=== PATIENT | male | born 1960 | race Caucasian/White ===

== ENCOUNTER 2016-03-20 14:18 | Outpatient (RCR) | payer BC ==
--- OUTSIDE RECORDS SUMMARY | 2015-12-29 09:46 | XMS REPORT | Continuity of Care Document ---
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 Medications Medication Dose Route Sig Days/Qty Instructions Order Date Discontinued Date Status Hydrochlorothiazide 1 Each PO DAILY 08/24/11 07/19/13 Discontinued Sitagliptin Phos/Metformin Hcl 1 Each PO DAILY 08/24/11 Active Olmesartan 1 Tab PO DAILY 08/24/11 07/19/13 Discontinued Metformin HCl (Glucophage) 1 Each PO DAILY 08/24/11 07/19/13 Discontinued Pioglitazone HCl 1 Tab PO DAILY 08/24/11 07/21/13 Discontinued Ranitidine HCl 300 Mg PO TWICE A DAY 08/24/11 07/19/13 Discontinued Multivitamins 1 Each PO DAILY 08/24/11 07/21/13 Discontinued [place]-3 Fatty Acids 2,000 Mg PO DAILY 08/24/11 Active Magnesium Amino Acid Chelate 300 Mg PO EVERY OTHER DAY 08/24/1103/03 Discontinued Cholecalciferol (Vitamin D3) 2,000 Unit PO DAILY 10/02/11 07/21/13 Discontinued Ascorbic Acid 500 Mg PO DAILY 10/02/11 07/21/13 Discontinued Cyanocobalamin 1,000 Mcg PO DAILY 10/02/11 07/21/13 Discontinued Folic Acid 0.4 Mg PO EVERY OTHER DAY 10/02/11 07/21/13 Discontinued Acetaminophen/Hydrocodone Bitart 1 - 2 Ea PO Q4HR PRN 30 Qty 10/09/11 07/19/13 Discontinued Ranitidine HCl 300 Mg PO DAILY 0 Days 07/19/13 Active Magnesium Amino Acid Chelate 250 Mg PO DAILY 0 Days 07/19/13 07/21/13 Discontinued Olmesartan Med/Amlodipine/Hctz 1 Each PO DAILY 0 Qty 07/19/13 Active Citalopram Hydrobromide 1 Each PO DAILY 0 Qty 07/19/13 Active Fexofenadine HCl 180 Mg PO DAILY 0 Qty 07/19/13 07/21/13 Discontinued Levofloxacin 750 Mg PO DAILY 14 Days 07/19/13 07/21/13 Discontinued Doxycycline Hyclate 100 Mg PO TWICE A DAY 10 Days 07/21/13 Active Clindamycin Hcl 600 Mg PO EVERY 8HRS 10 Days 07/21/13 Active Social History Social History Problem Response Recorded Date/Time Recreational Drug Use No 07/19/2013 12:00am Sexually Transmitted Disease No 07/19/2013 12:00am Hospital Discharge Instructions No hospital discharge instructions. Plan of Care No plan of care. Functional Status No functional status results. Allergies, Adverse Reactions, Alerts Allergen Type Severity Reaction Status Last Updated Penicillins ([id number]) Allergy Unknown Active 07/19/13 Sulfa (Sulfonamide Antibiotics) ([id number]) Allergy Unknown Active 03/03 Milk Containing Products Allergy Unknown gas/rash Active 07/19/13 peanut ([id number]) Allergy Unknown air closes off Active 07/19/13 Codeine Allergy Unknown Active 07/19/13 milk ([id number]) Allergy Unknown gas/rash Active 07/19/13 [place] ([id number]) Allergy Unknown airway closes off Active 07/19/13 ENVIRONMENTAL Allergy Unknown Active 07/19/13 Immunizations Name Given Type Date of Pneumonia Vaccine 07/19/13 Historical Vital Signs No known vital signs results. Results Test Source Date Result Interp. Ref. Range Comments Activated Partial Thromboplast Time September 27, 2007 4:39pm 33 SEC N 24- 35 Has specimen been collected/obtained? Y Alanine Aminotransferase (ALT/SGPT) July 20, 2013 5:52am 40 U/L N 30-65 Albumin July 20, 2013 5:52am 3.3 G/DL L 3.4-5.0 Alkaline Phosphatase July 20, 2013 5:52am 100 U/L N 50-136 Aspartate Amino Transf (AST/SGOT) July 20, 2013 5:52am 25 U/L N 15-37 BUN/Creatinine Ratio July 20, 2013 5:52am 13 - Band Neutrophils July 20, 2013 5:56am 2 % - Basophils # (Auto) July 20, 2013 5:56am 0.0 10^3/uL N 0.0-0.1 Basophils % (Manual) July 20, 2013 5:56am 2 % - Basophils (%) (Auto) July 20, 2013 5:56am 1 % N 0-10 Blood Urea Nitrogen July 20, 2013 5:52am 12 MG/DL N 7-18 C-Reactive Protein July 18, 2013 9:42pm 2.6 MG/DL H 0.2-0.9 Calcium Level July 20, 2013 5:52am 9.2 MG/DL N 8.5-10.1 Carbon Dioxide Level July 20, 2013 5:52am 30 MMOL/L N 21-32 Chloride Level July 20, 2013 5:52am 100 MMOL/L L 101-110 Creatinine July 20, 2013 5:52am 0.9 MG/DL N 0.6-1.3 Eosinophils # (Auto) July 20, 2013 5:56am 0.3 10^3/uL N 0.0-0.3 Eosinophils % (Manual) July 20, 2013 5:56am 3 % - Eosinophils (%) (Auto) July 20, 2013 5:56am 5 % N 0-10 Glucose Level July 20, 2013 5:52am 148 MG/DL H 74-106 Hematocrit July 20, 2013 5:56am 41 % N 40-54 Hemoglobin July 20, 2013 5:56am 13.8 G/DL N 13.3-17.7 Lymphocytes # (Auto) July 20, 2013 5:56am 1.8 X 10^3 N 1.0-4.0 Lymphocytes % (Manual) July 20, 2013 5:56am 32 % - Lymphocytes (%) (Auto) July 20, 2013 5:56am 28 % N 12-44 Magnesium Level September 27, 2007 4:39pm 2.0 MG/DL N 1.8-2.4 Has specimen been collected/obtained? Y Mean Corpuscular Hemoglobin July 20, 2013 5:56am 29 PG N 25-34 Mean Corpuscular Hemoglobin Concent July 20, 2013 5:56am 34 G/DL N 32- 36 Mean Corpuscular Volume July 20, 2013 5:56am 87 FL N 80-99 Mean Platelet Volume July 20, 2013 5:56am 9.3 FL N 7.4-10.4 Monocytes # (Auto) July 20, 2013 5:56am 0.5 X 10^3 N 0.0-1.0 Monocytes % (Manual) July 20, 2013 5:56am 8 % - Monocytes (%) (Auto) July 20, 2013 5:56am 7 % N 0-12 Myoglobin September 27, 2007 4:39pm 23 UG/L N 10-92 Has specimen been collected/obtained? Y Neutrophils # (Auto) July 20, 2013 5:56am 3.8 X 10^3 N 1.8-7.8 Neutrophils % (Manual) July 20, 2013 5:56am 53 % - Neutrophils (%) (Auto) July 20, 2013 5:56am 59 % N 42-75 Platelet Count July 20, 2013 5:56am 256 10^3/uL N 130-400 Potassium Level July 20, 2013 5:52am 3.9 MMOL/L N 3.6-5.0 Prothromb Time International Ratio September 27, 2007 4:39pm 0.9 N 0.8-1.4 INTERPRETIVE DATASUGGESTED THERAPEUTIC RANGE FOR INR'S: VENOUS THROMBOSIS, PULMONARY EMBOLISM, OR PREVENTION OF SYSTEMIC EMBOLISM (EG. IN ATRIAL FIBRILLATION): 2.0 - 3.0 MECHANICAL PROSTHETIC HEART VALVES: 2.5 - 3.5* *NOTE: INR'S UP TO 4.5 MAY BE NECESSARY IN SELECTED GROUPS OF HIGH RISK PATIENTS. [employer] CONSENSUS CONFERENCE ON ANTITHROMBOTIC THERAPY (2000). Prothrombin Time September 27, 2007 4:39pm 12.5 SEC N 12.2-14.7 Has specimen been collected/obtained? Y Red Blood Count July 20, 2013 5:56am 4.70 10^6/uL N 4.35-5.85 Red Cell Distribution Width July 20, 2013 5:56am 13.4 % N 10.0-14.5 Sodium Level July 20, 2013 5:52am 134 MMOL/L L 135-145 Total Bilirubin July 20, 2013 5:52am 0.6 MG/DL N 0.0-1.0 Total Protein July 20, 2013 5:52am 8.0 G/DL N 6.4-8.2 Troponin I September 27, 2007 4:39pm < 0.10 MG/ML 0.00-0.10 Has specimen been collected/obtained? Y Urine Bacteria July 18, 2013 11:04pm NEGATIVE /HPF - Has specimen been collected/obtained? YSpecimen Description CLEAN CATCH Urine Bilirubin July 18, 2013 11:04pm NEGATIVE - Has specimen been collected/obtained? YSpecimen Description CLEAN CATCH Urine Casts July 18, 2013 11:04pm NONE /LPF - Has specimen been collected/obtained? YSpecimen Description CLEAN CATCH Urine Clarity July 18, 2013 11:04pm CLEAR - Has specimen been collected/obtained? YSpecimen Description CLEAN CATCH Urine Color July 18, 2013 11:04pm YELLOW - Has specimen been collected /obtained? YSpecimen Description CLEAN CATCH Urine Crystals July 18, 2013 11:04pm NONE /LPF - Has specimen been collected/obtained? YSpecimen Description CLEAN CATCH Urine Culture Indicated July 18, 2013 11:04pm NO - Has specimen been collected/obtained? YSpecimen Description CLEAN CATCH Urine Glucose (UA) July 18, 2013 11:04pm NEGATIVE - Has specimen been collected/obtained? YSpecimen Description CLEAN CATCH Urine Ketones July 18, 2013 11:04pm NEGATIVE - Has specimen been collected/obtained? YSpecimen Description CLEAN CATCH Urine Leukocyte Esterase July 18, 2013 11:04pm NEGATIVE - Has specimen been collected/obtained? YSpecimen Description CLEAN CATCH Urine Mucus July 18, 2013 11:04pm NEGATIVE /LPF - Has specimen been collected/obtained? YSpecimen Description CLEAN CATCH Urine Nitrite July 18, 2013 11:04pm NEGATIVE - Has specimen been collected/obtained? YSpecimen Description CLEAN CATCH Urine Protein July 18, 2013 11:04pm NEGATIVE - Has specimen been collected/obtained? YSpecimen Description CLEAN CATCH Urine RBC July 18, 2013 11:04pm RARE /HPF - Has specimen been collected/obtained? YSpecimen Description CLEAN CATCH Urine Specific [place] July 18, 2013 11:04pm 1.015 L - Has specimen been collected/obtained? YSpecimen Description CLEAN CATCH Urine Squamous Epithelial Cells July 18, 2013 11:04pm RARE /HPF - Has specimen been collected/obtained? YSpecimen Description CLEAN CATCH Urine Urobilinogen July 18, 2013 11:04pm NORMAL MG/DL - Has specimen been collected/obtained? YSpecimen Description CLEAN CATCH Urine WBC July 18, 2013 11:04pm NONE /HPF - Has specimen been collected/obtained? YSpecimen Description CLEAN CATCH Urine pH July 18, 2013 11:04pm 5 - Has specimen been collected/ obtained? YSpecimen Description CLEAN CATCH Vancomycin Level Trough July 20, 2013 5:52am 15 UG/ML N 15-20 VANCOMYCIN TROUGH THERAPEUTIC LEVELS: 15-20 UG/ML ELEVATED LEVELS : 20-25 UG/ML CRITICAL LEVEL : >25 UG/ML White Blood Count July 20, 2013 5:56am 6.5 10^3/uL N 4.3-11.0 Pathology Consult Specimen September 27, 2007 4:39pm See report - Has specimen been collected/obtained? Y Glucometer July 21, 2013 10:53am 183 MG/DL H 70-110 Lab Scanned Report April 11, 2010 8:02am LAB Reports [id number] - Estimat Glomerular Filtration Rate July 20, 2013 5:52am > 60 - GFR INTERPRETIVE DATA UNITS FOR ESTIMATED GFR (eGFR): mL/min/1.73 M2 REFERENCE RANGE FOR ESTIMATED GFR (eGFR) eGFR NORMAL eGFR >60 MODERATELY DECREASED eGFR 30-59 SEVERLY DECREASED eGFR 15-29 KIDNEY FAILURE <15 (OR DIALYSIS) Blood Morphology Comment July 20, 2013 5:56am NORMAL - Creatine Kinase September 27, 2007 4:39pm 60 mg/dl N 21-170 Has specimen been collected/obtained? Y Urine RBC (Auto) July 18, 2013 11:04pm 1+ H - Has specimen been collected/obtained? YSpecimen Description CLEAN CATCH MRSA Screen Nasal October 02, 2011 10:15am MRSA not isolated Procedures No known history of procedures. Encounters Encounter Location Date/Time Discharged Recurring [facility] 11/30/13 8:00am
[~2016-03-20 14:18] MED LIST: C250T PO; CHOL200035 PO; CLN150C PO; CTLP20T PO; CYAN10007 PO; DICL100G13 TOP; DXCC100C PO; FEXO-104 PO; FOLI0.4T2 PO; FURO20TA4 PO; HCT25T PO; HYDR-3583 PO; HYDR-3720 PO; LEVO750T24 PO; LEVO750T6 PO; MAGN100T3 PO; METF-380 PO; METO25TA6 PO; MULT1CAP27 PO; OLME1TAB28 PO; OLME40TA14 PO; OMEG10005 PO; PGLT30T PO; PIOG30TA PO; POTA10CA43 PO; RANI150T15 PO; RNT150T PO; SITA1TAB3 PO; VANC5VIA5 IV; [UNRECOGNIZED DRUG - CODE] IV
== END 2016-03-28 | disposition home or self-care (01) ==
LOC: WOUNDCARE 14:18
PROVIDERS: ATTEND Nurse Practitioner
DX: L97.512 Non-pressure chronic ulcer of other part of right foot with fat layer exposed (principal); L97.511 Non-pressure chronic ulcer of other part of right foot limited to breakdown of skin; E08.40 Diabetes mellitus due to underlying condition with diabetic neuropathy, unspecified
CPT/HCPCS: 11042; 87070; 87075; 87186; 87205

== ENCOUNTER 2016-04-19 15:00 | Outpatient (RCR) | payer BC ==
--- OUTSIDE RECORDS SUMMARY | 2016-03-29 14:25 | XMS REPORT | Continuity of Care Document ---
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 Name Role Phone EFREN STOKES DO PCP Insurance Providers Payer Name Policy Number Subscriber Name Relationship Work Comp [id number] Daren Barrios Jr 18 Self / Same As Patient Advance Directives Directive Response Recorded Date/Time Advance Directives No 07/19/13 12:00am Health Care Power of Legal Receptionist No 07/19/13 12:00am Organ Donor Yes 07/19/13 [...] 1 Each PO DAILY 08/24/11 07/21/13 Discontinued [place]-3 Fatty Acids 2,000 Mg PO DAILY 08/24/11 [...] Type Severity Reaction Status Last Updated Penicillins ([id number]) Allergy Unknown Active 07/19/13 Sulfa (Sulfonamide Antibiotics) ([id number]) Allergy Unknown Active 03/03 Milk Containing Products Allergy Unknown gas/rash Active 07/19/13 peanut ([id number]) Allergy Unknown air closes off Active 07/19/13 Codeine Allergy Unknown Active 07/19/13 milk ([id number]) Allergy Unknown gas/rash Active 07/19/13 [place] ([id number]) Allergy Unknown airway closes off Active 07/19/13 [...] SELECTED GROUPS OF HIGH RISK PATIENTS. [employer] [place] [employer] CONSENSUS CONFERENCE ON [...] collected/obtained? YSpecimen Description CLEAN CATCH Urine Specific [place] July 18, 2013 11:04pm 1.015 L - [...] Report April 11, 2010 8:02am LAB Reports [id number] - Estimat Glomerular Filtration Rate July 20, [...] Encounters Encounter Location Date/Time Discharged Recurring Via [facility] 11/30/13 8:00am
== END 2016-04-19 16:00 | disposition home or self-care (01) ==
LOC: WOUNDCARE 15:00
PROVIDERS: ATTEND Nurse Practitioner
DX: L97.512 Non-pressure chronic ulcer of other part of right foot with fat layer exposed (principal); L97.511 Non-pressure chronic ulcer of other part of right foot limited to breakdown of skin; E08.40 Diabetes mellitus due to underlying condition with diabetic neuropathy, unspecified
CPT/HCPCS: 11042; 87070; 87075; 87077; 87186; 87205

== ENCOUNTER 2017-12-04 02:24 | Inpatient (IN) | payer BC, OTHER ==
[2017-12-04] VITALS (7 sets, daily range): BP systolic 105–173; BP diastolic 77–104
[~2017-12-04] VITALS: Ht 177.8 cm; Wt 118.4 kg
[~2017-12-04 02:24] MED LIST changes: -RANI150T15 PO; +RANI150T46 PO
--- OUTSIDE RECORDS SUMMARY | 2017-12-04 02:33 | XMS REPORT | Continuity of Care Document ---
Author Author [facility] Organization [facility] Address Unknown Phone Unavailable Allergies Active Description Code Type Severity Reaction Onset Reported/Identified Relationship to Patient Clinical Status Yes codeine [id number] Drug Allergy Unknown N/A 07/19/2013 Yes ENVIRONMENTAL ENVIRONMENTAL Unknown N/A 07/19/2013 Yes milk [id number] Drug Allergy Unknown gas/rash 07/19/2013 Yes Milk Containing Products [id number] Drug Allergy Unknown gas/rash 2013 Yes peanut [id number] Drug Allergy Unknown air closes off 07/19/2013 Yes Penicillins [id number] Drug Allergy Unknown N/A 07/19/2013 Yes strawberry [id number] Drug Allergy Unknown airway closes o 07/19/2013 Yes Sulfa (Sulfonamide Antibiotics) [id number] Drug Allergy Unknown N/A 2013 Yes EGG WHITES EGG WHITES Mild N/A 02/02/2014 Yes codeine [id number] Drug Allergy Mild NAUSEA 02/03/2014 Yes egg [id number] Drug Allergy Mild N/A 02/05/2014 Yes Insulins [id number] Drug Allergy Unknown N/A 06/06/2015 Yes lidocaine [id number] Drug Allergy Unknown N/A 01/06/2016 Medications There is no data. Problems Date Dx Coded Attending Type Code Diagnosis Diagnosed By 08/27/2011 Ot 250.00 DIAB JENNIFER WO COMPL, TYPE II OR UNSPEC TY 08/27/2011 Ot 530.81 ESOPHAGEAL REFLUX 08/27/2011 Ot 553.3 DIAPHRAGMATIC HERNIA 08/27/2011 Ot V58.69 OTH MED,LT, CURRENT USE 10/09/2011 Ot 250.00 DIAB JENNIFER WO COMPL, TYPE II OR UNSPEC TY 10/09/2011 Ot 575.11 CHRONIC CHOLECYSTITIS 02/16/2012 Ot 721.3 LUMBOSACRAL SPONDYLOSIS 02/16/2012 Ot 805.02 FX C2 VERTEBRA-CLOSED 02/16/2012 Ot 922.31 BACK CONTUSION 02/16/2012 Ot 959.19 OTH INJURY OF OTHER SITES OF TRUNK 02/16/2012 Ot E000.0 CIVILIAN ACTIVITY DONE FOR INCOME OR PAY 02/16/2012 Ot [address]849[address] NEC 02/16/2012 Ot E881.0 FALL FROM LADDER 06/06/2012 Ot 386.11 BENIGN PARXYSMAL VERTIGO 06/06/2012 Ot 723.1 CERVICALGIA 06/06/2012 Ot 905.1 LATE EFF SPINE/TRUNK FX 06/06/2012 Ot E929.3 LATE EFF ACCIDENTAL FALL 06/06/2012 Ot V57.1 PHYSICAL THERAPY NEC 07/30/2012 RITA (JOSÉ LUIS)ZORAIDA Ot 784.0 HEADACHE 07/30/2012 RITA (JOSÉ LUIS)ZORAIDA Ot V57.1 PHYSICAL THERAPY NEC 07/21/2013 SUZE SINGLETON MD Ot 038.9 SEPTICEMIA NOS 07/21/2013 SUZE SINGLETON MD Ot 250.80 DIAB W OTH SPEC MANIFEST, TYPE II OR UNS 07/21/2013 SUZE SINGLETON MD Ot 356.9 IDIO PERIPH NEURPTHY NOS 07/21/2013 SUZE SINGLETON MD Ot 401.9 HYPERTENSION NOS 07/21/2013 SUZE SINGLETON MD Ot 682.6 CELLULITIS OF LEG 07/21/2013 SUZE SINGLETON MD Ot 707.15 ULCER OF OTHER PART OF FOOT 07/21/2013 SUZE SINGLETON MD Ot 733.82 NONUNION OF FRACTURE 07/21/2013 SUZE SINGLETON MD Ot 995.91 SEPSIS 12/16/2013 EFREN STOKES DO Ot 719.43 JOINT PAIN-FOREARM 12/16/2013 EFREN STOKES DO Ot V57.21 ENCOUNTER FOR OCCUPATIONAL THERAPY 01/18/2014 Ot 397.0 01/18/2014 Ot 786.59 01/18/2014 Ot 786.50 01/18/2014 Ot 789.09 01/18/2014 Ot 789.00 01/18/2014 Ot 575.8 01/18/2014 Ot V72.63 01/18/2014 Ot V72.81 01/18/2014 Ot V74.8 01/18/2014 NEY EDEN RPA-C Ot 473.9 02/02/2014 KATE CASTILLO DPM Ot 094.0 02/02/2014 BLANCHO DPM, KATE Stevens Ot 713.5 02/02/2014 BLANCHO DPM, KATE Stevens Ot 730.27 02/02/2014 BLANCHO DPM, KATE Stevens Ot V72.84 02/03/2014 CROW KNIGHT MD Ot 250.00 02/03/2014 CROW KNIGHT MD Ot 397.0 02/03/2014 CROW KNIGHT MD Ot 424.0 02/03/2014 CROW KNIGHT MD Ot 427.69 02/03/2014 CROW KNIGHT MD Ot 786.05 02/03/2014 CROW KNIGHT MD Ot V72.81 02/08/2014 BLANCHO DPM, KATE Stevens Ot 349.9 02/08/2014 BLANCHO DPM, KATE Stevens Ot 713.5 02/08/2014 BLANCHO DPM, KATE Stevens Ot 793.7 02/10/2014 SUZE SINGLETON MD Ot 250.62 02/10/2014 SUZE SINGLETON MD Ot 250.82 02/10/2014 SUZE SINGLETON MD Ot 356.9 02/10/2014 SUZE SINGLETON MD Ot 357.2 02/10/2014 SUZE SINGLETON MD Ot 401.9 02/10/2014 SUZE SINGLETON MD Ot 533.90 02/10/2014 SUZE SINGLETON MD Ot 564.09 02/10/2014 SUZE SINGLETON MD Ot 707.15 02/10/2014 SUZE SINGLETON MD Ot 713.5 02/10/2014 SUZE SINGLETON MD Ot 731.8 02/10/2014 SUZE SINGLETON MD Ot 250.62 DIAB W NEURO MANIFEST, TYPE II OR UNSPEC 02/10/2014 SUZE SINGLETON MD Ot 250.82 DIAB W OTH SPEC MANIFEST, TYPE II OR UNS 02/10/2014 SUZE SINGLETON MD Ot 356.9 IDIO PERIPH NEURPTHY NOS 02/10/2014 SUZE SINGLETON MD Ot 357.2 NEUROPATHY IN DIABETES 02/10/2014 SUZE SINGLETON MD Ot 401.9 HYPERTENSION NOS 02/10/2014 SUZE SINGLETON MD Ot 533.90 PEPTIC ULCER NOS 02/10/2014 SUZE SINGLETON MD Ot 564.09 OTHER CONSTIPATION 02/10/2014 SUZE SINGLETON MD Ot 707.15 ULCER OF OTHER PART OF FOOT 02/10/2014 MANI SCHMITZ, SUZE Benavides Ot 713.5 ARTHROPATHY W NERVE DIS 02/10/2014 SUZE SINGLETON MD Ot 731.8 BONE INVOLV IN OTH DIS 02/10/2014 SUZE SINGLETON MD Ot V03.82 PROPHYLACTIC VACC AGAINST STREPTOCOCCUS 02/22/2014 BLANCHO DPM, KATE Stevens Ot 250.00 02/22/2014 BLANCHO DPM, KATE Stevens Ot 730.20 02/22/2014 CROW KNIGHT MD Ot 250.00 02/22/2014 CROW KNIGHT MD Ot 397.0 02/22/2014 CROW KNIGHT MD Ot 424.0 02/22/2014 CROW KNIGHT MD Ot 427.69 02/22/2014 CROW KNIGHT MD Ot 786.05 02/22/2014 CROW KNIGHT MD Ot V72.81 02/23/2014 TESHA TAY DO Ot 730.20 02/25/2014 SUZE SINGLETON MD Ot 730.27 02/25/2014 SUZE SINGLETON MD Ot V58.62 03/02/2014 TESHA TAY DO Ot 730.20 03/02/2014 SUZE SINGLETON MD Ot 250.00 03/02/2014 SUZE SINGLETON MD Ot 730.20 03/15/2014 BLAMAURICIOHO DPM, KATE Stevens Ot 730.27 03/15/2014 MOHINIHO DPM, KATE Stevens Ot V58.62 03/15/2014 SUZE SINGLETON MD Ot 730.27 03/15/2014 SUZE SINGLETON MD Ot V58.62 03/19/2014 SUZE SINGLETON MD Ot 250.00 03/19/2014 SUZE SINGLETON MD Ot 730.20 03/19/2014 TESHA TAY DO Ot 730.20 03/19/2014 SUZE SINGLETON MD Ot 730.27 03/19/2014 SUZE SINGLETON MD Ot V58.62 03/19/2014 SUZE SINGLETON MD Ot 730.27 03/19/2014 SUEZ SINGLETON MD Ot V58.62 03/29/2014 SUZE SINGLETON MD Ot 730.27 03/29/2014 SUZE SINGLETON MD Ot V58.62 04/01/2014 SUZE SINGLETON MD D Ot 785.1 04/15/2014 SUZE SINGLETON MD Ot 785.1 08/13/2014 COLTHARP DO, GRAZYNA Lopez Ot 250.60 08/13/2014 COLTHARP DO, GRAZYNA Lopez Ot 250.80 08/13/2014 COLTHARP DO, GRAZYNA Lopez Ot 401.9 08/13/2014 COLTHARP DO, GRAZYNA Lopez Ot 707.15 08/13/2014 COLTHARP DO, GRAZYNA Lopez Ot 713.5 09/09/2014 COLTHARP DO, GRAZYNA Lopez Ot 250.60 09/09/2014 COLTHARP DO, GRAZYNA Lopez Ot 250.80 09/09/2014 COLTHARP DO, GRAZYNA Lopez Ot 401.9 09/09/2014 COLTHARP DO, GRAZYNA Lopez Ot 707.15 09/09/2014 COLTHARP DO, GRAZYNA Lopez Ot 713.5 09/28/2014 COLTHARP DO, GRAZYNA Lopez Ot 250.60 DIAB W NEURO MANIFEST, TYPE II OR UNSPEC 09/28/2014 COLTHARP DO, GRAZYNA Lopez Ot 250.80 DIAB W OTH SPEC MANIFEST, TYPE II OR UNS 09/28/2014 COLTHARP DO, GRAZYNA Lopez Ot 401.9 HYPERTENSION NOS 09/28/2014 COLTHARP DO, GRAZYNA Lopez Ot 707.15 ULCER OF OTHER PART OF FOOT 09/28/2014 COLTHARP DO, GRAZYNA Lopez Ot 713.5 ARTHROPATHY W NERVE DIS 09/29/2014 COLTHARP DO, GRAZYNA Lopez Ot 250.60 09/29/2014 COLTHARP DO, GRAZYNA Lopez Ot 250.80 09/29/2014 COLTHARP DO, GRAZYNA Lopez Ot 401.9 09/29/2014 COLTHARP DO, GRAZYNA Lopez Ot 707.15 09/29/2014 COLTHARP DO, GRAZYNA Lopez Ot 713.5 09/30/2014 COLTHARP DO, GRAZYNA Lopez Ot 250.60 09/30/2014 COLTHARP DO, GRAZYNA Lopez Ot 250.80 09/30/2014 COLTHARP DO, GRAZYNA Lopez Ot 401.9 09/30/2014 COLTHARP DO, GRAZYNA Lopez Ot 707.15 09/30/2014 COLTHARP DO, GRAZYNA Lopez Ot 713.5 10/06/2014 COLTHARP DO, GRAZYNA Lopez Ot 250.60 10/06/2014 COLTHARP DO, GRAZYNA Lopez Ot 250.80 10/06/2014 COLTHARP DO, GRAZYNA Lopez Ot 401.9 10/06/2014 THTOBI MCFADDEN, GRAZYNA Lopez Ot 707.15 10/06/2014 CASI MCFADDEN, GRAZYNA Lopez Ot 713.5 10/27/2014 CASI MCFADDEN, GRAZYNA Lopez Ot 250.60 DIAB W NEURO MANIFEST, TYPE II OR UNSPEC 10/27/2014 CASI MCFADDEN, GRAZYNA Lopez Ot 250.80 DIAB W OTH SPEC MANIFEST, TYPE II OR UNS 10/27/2014 CASI MCFADDEN, GRAZYNA Lopez Ot 401.9 HYPERTENSION NOS 10/27/2014 CASI MCFADDEN, GRAZYNA Lopez Ot 707.15 ULCER OF OTHER PART OF FOOT 10/27/2014 CASI MCFADDEN, GRAZYNA Lopez Ot 713.5 ARTHROPATHY W NERVE DIS 12/15/2014 MANI SCHMITZ, SUZE Benavides Ot R05 12/15/2014 MANI SCHMITZ, SUZE Benavides Ot R50.9 06/06/2015 SHEY SCHMITZ, BELTRAN Benavides Ot I10 ESSENTIAL (PRIMARY) HYPERTENSION 06/07/2015 Ot 789.09 ABDOMINAL PAIN, OTHER SPECIFIED SITE 06/07/2015 Ot 789.00 ABDOMINAL PAIN, UNSPECIFIED SITE 06/07/2015 Ot 575.8 DIS OF GALLBLADDER NEC 06/07/2015 Ot V72.63 PRE- PROCEDURAL LABORATORY EXAMINATION 06/07/2015 Ot V72.81 EXAM-PRE- OPERATIVE CARDIOVASCULAR 06/07/2015 Ot V74.8 SCREEN- BACTERIAL DIS NEC 06/07/2015 NEY EDEN RPA-C Ot 473.9 CHRONIC SINUSITIS NOS 06/07/2015 KATE CASTILLO DPM Ot 349.9 FINISHING 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 DISORDER 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 06/07/2015 KATE CASTILLO DPM Ot 713.5 ARTHROPATHY W NERVE DIS 06/07/2015 KATE CASTILLO DPM Ot 793.7 NOSP (ABN) FINDINGS ON RADIOLOGICAL OT 06/07/2015 KATE CASTILLO DPM Ot 250.00 DIAB JENNIFER WO COMPL, TYPE II OR UNSPEC TY 06/07/2015 KATE CASTILLO DPM Ot 730.20 OSTEOMYELITIS NOS-UNSPEC 06/07/2015 ANTONIA SCHMITZ, CROW Borrero Ot 250.00 DIAB JENNIFER WO COMPL, TYPE II OR UNSPEC TY 06/07/2015 ANTONIA SCHMITZ, CROW Borrero Ot 397.0 TRICUSPID VALVE DISEASE 06/07/2015 CROW KNIGHT MD Ot 424.0 MITRAL VALVE DISORDER 06/07/2015 CROW KNIGHT MD Ot 427.69 PREMATURE BEATS NEC 06/07/2015 CROW KNIGHT MD Ot 786.05 SHORTNESS OF BREATH 06/07/2015 CROW KNIGHT MD Ot V72.81 [id number] CARDIOVASCULAR 06/07/2015 BLANCHO DPM, KATE G Ot 094.0 TABES DORSALIS 06/07/2015 BLANCHO DPM, KATE G Ot 713.5 ARTHROPATHY W NERVE DIS 06/07/2015 BLANCHO DPM, KATE G Ot 730.27 OSTEOMYELITIS NOS-ANKLE 06/07/2015 BLANCHO DPM, KATE G Ot V72.84 EXAM PRE-OPERATIVE NOS 06/07/2015 BLANCHO DPM, KATE G Ot 730.27 OSTEOMYELITIS NOS-ANKLE 06/07/2015 BLANCHO DPM, KATE Stevens Ot V58.62 ENCOUNT FOR LONG-TERM(CURRENT) USE OF AN 06/07/2015 SUZE SINGLETON MD Ot 730.27 OSTEOMYELITIS NOS-ANKLE 06/07/2015 SUZE SNIGLETON MD Ot V58.62 ENCOUNT FOR LONG-TERM(CURRENT) USE OF AN 06/07/2015 SUZE SINGLETON MD Ot 250.00 DIAB JENNIFER WO COMPL, TYPE II OR UNSPEC TY 06/07/2015 SUZE SINGLETON MD Ot 730.20 OSTEOMYELITIS NOS-UNSPEC 06/07/2015 TESHA TAY DO Ot 730.20 OSTEOMYELITIS NOS-UNSPEC 06/07/2015 SUZE SINGLETON MD Ot 730.27 OSTEOMYELITIS NOS-ANKLE 06/07/2015 SUZE SINGLETON MD Ot V58.62 ENCOUNT FOR LONG-TERM(CURRENT) USE OF AN 06/07/2015 SUZE SINGLETON MD Ot 730.27 OSTEOMYELITIS NOS-ANKLE 06/07/2015 SUZE SINGLETON MD Ot V58.62 ENCOUNT FOR LONG-TERM(CURRENT) USE OF AN 06/07/2015 SUZE SINGLETON MD Ot 730.27 OSTEOMYELITIS NOS-ANKLE 06/07/2015 SUZE SINGLETON MD, Ot V58.62 ENCOUNT FOR LONG-TERM(CURRENT) USE OF AN 06/07/2015 SUZE SINGLETON MD Ot 785.1 PALPITATIONS 06/07/2015 SUZE SINGLETON MD Ot R05 COUGH 06/07/2015 SUZE SINGLETON MD Ot R50.9 FEVER, UNSPECIFIED 06/08/2015 SHEY SCHMITZ, BELTRAN Benavides Ot I10 ESSENTIAL (PRIMARY) HYPERTENSION 01/06/2016 LEE CARDENAS MD Ot E11.9 TYPE 2 DIABETES MELLITUS WITHOUT COMPLIC 01/06/2016 LEE CARDENAS MD T Ot I10 ESSENTIAL (PRIMARY) HYPERTENSION 01/06/2016 LEE CARDENAS MD T Ot R10.30 LOWER ABDOMINAL PAIN, UNSPECIFIED 01/06/2016 LEE CARDENAS MD T Ot Z79.84 LONGTERM (CURRENT) USE OF ORAL HYPOGLYC 01/06/2016 LEE CARDENAS MD T Ot Z79.899 OTHER REVENUE CYCLE SPECIALIST (CURRENT) DRUG THERAPY 01/09/2016 LEE CARDENAS MD Ot E11.9 TYPE 2 DIABETES MELLITUS WITHOUT COMPLIC 01/09/2016 LEE CARDENAS MD Ot I10 ESSENTIAL (PRIMARY) HYPERTENSION 01/09/2016 LEE CARDENAS MD T Ot R10.30 LOWER ABDOMINAL PAIN, UNSPECIFIED 01/09/2016 LEE CARDENAS MD T Ot Z79.84 REVENUE CYCLE SPECIALIST (CURRENT) USE OF ORAL HYPOGLYC 01/09/2016 LEE CARDENAS MD T Ot Z79.899 OTHER LONGTERM (CURRENT) DRUG THERAPY 02/01/2016 SLY MYERS ADMINISTRATIVE PROJECT COORDINATOR Ot E08.40 DIABETES DUE TO UNDERLYING CONDITION W D 02/01/2016 SLY MYERS ADMINISTRATIVE PROJECT COORDINATOR Ot L97.511 NON-PRS CHRONIC ULCER OTH PRT R FOOT ROJAS 02/01/2016 SLY MYERS ADMINISTRATIVE PROJECT COORDINATOR Ot L97.512 NON-PRS CHRONIC ULCER OTH PRT RIGHT FOOT 03/28/2016 SLY MYERS ADMINISTRATIVE PROJECT COORDINATOR Ot E08.40 DIABETES DUE TO UNDERLYING CONDITION W D 03/28/2016 SLY MYERS ADMINISTRATIVE PROJECT COORDINATOR Ot L97.511 NON-PRS CHRONIC ULCER OTH PRT R FOOT ROJAS 03/28/2016 SLY MYERS ADMINISTRATIVE PROJECT COORDINATOR Ot L97.512 NON-PRS CHRONIC ULCER OTH PRT RIGHT FOOT 03/29/2016 SLY MYERS ADMINISTRATIVE PROJECT COORDINATOR Ot E08.40 DIABETES DUE TO UNDERLYING CONDITION W D 03/29/2016 SLY MYERS ADMINISTRATIVE PROJECT COORDINATOR Ot L97.511 NON-PRS CHRONIC ULCER OTH PRT R FOOT ROJAS 03/29/2016 LUCIA SLY R ADMINISTRATIVE PROJECT COORDINATOR Ot L97.512 NON-PRS CHRONIC ULCER OTH PRT RIGHT FOOT 03/30/2016 PETERSON MYERSN R ADMINISTRATIVE PROJECT COORDINATOR Ot E08.40 DIABETES DUE TO UNDERLYING CONDITION W D 03/30/2016 PETERSON MYERSN R ADMINISTRATIVE PROJECT COORDINATOR Ot L97.511 NON-PRS CHRONIC ULCER OTH PRT R FOOT ROJAS 03/30/2016 LUCIA SLY R ADMINISTRATIVE PROJECT COORDINATOR Ot L97.512 NON-PRS CHRONIC ULCER OTH PRT RIGHT FOOT 05/03/2016 LUCIAPETERSONN R ADMINISTRATIVE PROJECT COORDINATOR Ot E08.40 DIABETES DUE TO UNDERLYING CONDITION W D 05/03/2016 PETERSON MYERSN R ADMINISTRATIVE PROJECT COORDINATOR Ot L97.511 NON-PRS CHRONIC ULCER OTH PRT R FOOT ROJAS 05/03/2016 PETERSON MYERSN R ADMINISTRATIVE PROJECT COORDINATOR Ot L97.512 NON-PRS CHRONIC ULCER OTH PRT RIGHT FOOT Procedures Code Description Performed By Performed On 77.98 02/02/2014 Results Test Result Range Bacteria identification in isolate by anaerobe culture - 12/29/15 11:07 Bacteria identification in isolate by anaerobe culture NOANA NRG Gram stain microscopy - 12/29/15 11:07 GRAM STAIN RESULT NO WBC'S OR BACTERIA OBSERVED NRG Bacteria identification in wound by culture - 12/29/15 11:07 Bacteria identification in wound by culture [id number] NRG QUANTITY OF GROWTH Scant Growth NRG Complete blood count (CBC) with automated white blood cell (WBC) differential - 01/06/16 16:53 Blood leukocytes automated count (number/volume) 8.2 10*3/uL 4.3-11.0 Blood erythrocytes automated count (number/volume) 4.30 10*6/uL 4.35-5.85 Venous blood hemoglobin measurement (mass/volume) 12.6 g/dL 13.3-17.7 Blood hematocrit (volume fraction) 38 % 40-54 Automated erythrocyte mean corpuscular volume 89 [foz_us] 80-99 Automated erythrocyte mean corpuscular hemoglobin (mass per erythrocyte) 29 pg 25-34 Automated erythrocyte mean corpuscular hemoglobin concentration measurement ( mass/volume) 33 g/dL 32-36 Automated erythrocyte distribution width ratio 13.0 % 10.0-14.5 Automated blood platelet count (count/volume) 365 10*3/uL 130-400 Automated blood platelet mean volume measurement 9.5 [foz_us] 7.4-10.4 Automated blood neutrophils/100 leukocytes 65 % 42-75 Automated blood lymphocytes/100 leukocytes 25 % 12-44 Blood monocytes/100 leukocytes 8 % 0-12 Automated blood eosinophils/100 leukocytes 2 % 0-10 Automated blood basophils/100 leukocytes 1 % 0-10 Blood neutrophils automated count (number/volume) 5.3 10*3 1.8-7.8 Blood lymphocytes automated count (number/volume) 2.0 10*3 1.0-4.0 Blood monocytes automated count (number/volume) 0.6 10*3 0.0-1.0 Automated eosinophil count 0.2 10*3/uL 0.0-0.3 Automated blood basophil count (count/volume) 0.0 10*3/uL 0.0-0.1 PT panel in platelet poor plasma by coagulation assay - 01/06/16 16:53 Prothrombin time (PT) in platelet poor plasma by coagulation assay 11.6 s 12.2-14.7 INR in platelet poor plasma or blood by coagulation assay 0.9 0.8-1.4 Activated partial thromboplastin time (aPTT) in platelet poor plasma bycoagulation assay - 01/06/16 16:53 Activated partial thromboplastin time (aPTT) in platelet poor plasma bycoagulation assay 35 s 24-35 Comprehensive metabolic panel - 01/06/16 16:53 Serum or plasma sodium measurement (moles/volume) 140 mmol/L 135-145 Serum or plasma potassium measurement (moles/volume) 3.6 mmol/L 3.6-5.0 Serum or plasma chloride measurement (moles/volume) 103 mmol/L 98-107 Carbon dioxide 27 mmol/L 21-32 Serum or plasma anion gap determination (moles/volume) 10 mmol/L 5-14 Serum or plasma urea nitrogen measurement (mass/volume) 9 mg/dL 7-18 Serum or plasma creatinine measurement (mass/volume) 1.01 mg/dL 0.60-1.30 Serum or plasma urea nitrogen/creatinine mass ratio 9 NRG Serum or plasma creatinine measurement with calculation of estimated glomerular filtration rate > NRG Serum or plasma glucose measurement (mass/volume) 167 mg/dL 70-105 Serum or plasma calcium measurement (mass/volume) 9.4 mg/dL 8.5-10.1 Serum or plasma total bilirubin measurement (mass/volume) 0.3 mg/dL 0.1-1.0 Serum or plasma alkaline phosphatase measurement (enzymatic activity/volume) 73 U/L 40-136 Serum or plasma aspartate aminotransferase measurement (enzymatic activity/ volume) 23 U/L 5-34 Serum or plasma alanine aminotransferase measurement (enzymatic activity/volume ) 18 U/L 0-55 Serum or plasma protein measurement (mass/volume) 7.8 g/dL 6.4-8.2 Serum or plasma albumin measurement (mass/volume) 3.9 g/dL 3.2-4.5 Serum or plasma C reactive protein measurement (mass/volume) - 01/06/16 16:53 Serum or plasma C reactive protein measurement (mass/volume) 1.17 mg /dL 0.00-0.50 Complete urinalysis with reflex to culture - 01/06/16 19:03 Urine color determination YELLOW NRG Urine clarity determination CLEAR NRG Urine pH measurement by test strip 6 5-9 Specific gravity of urine by test strip 1.015 1.016- 1.022 Urine protein assay by test strip, semi-quantitative 1+ NEGATIVE Urine glucose detection by automated test strip NEGATIVE NEGATIVE Erythrocytes detection in urine sediment by light microscopy 1+ NEGATIVE Urine ketones detection by automated test strip NEGATIVE NEGATIVE Urine nitrite detection by test strip NEGATIVE NEGATIVE Urine total bilirubin detection by test strip NEGATIVE NEGATIVE Urine urobilinogen measurement by automated test strip (mass/volume) NORMAL NORMAL Urine leukocyte esterase detection by dipstick NEGATIVE NEGATIVE Automated urine sediment erythrocyte count by microscopy (number/high power field) [HPF] NRG Automated urine sediment leukocyte count by microscopy (number/high power field ) [HPF] NRG Bacteria detection in urine sediment by light microscopy NEGATIVE NRG Squamous epithelial cells detection in urine sediment by light microscopy 2-5 NRG Crystals detection in urine sediment by light microscopy NONE NRG Casts detection in urine sediment by light microscopy NONE NRG Mucus detection in urine sediment by light microscopy LARGE NRG Complete urinalysis with reflex to culture NO NRG Bacteria identification in isolate by anaerobe culture - 01/17/16 15:30 Bacteria identification in isolate by anaerobe culture NOANA NRG Gram stain microscopy - 01/17/16 15:30 GRAM STAIN RESULT NO BACTERIA NRG Bacteria identification in wound by culture - 01/17/16 15:30 Bacteria identification in wound by culture [id number] NRG FREE TEXT EXTERNAL SENSITIVITY REPORTED AT 0840, 01-20-16 NRG QUANTITY OF GROWTH Scant Growth NRG FREE TEXT ENTRY 2 SEE COMMENT NR Bacterial susceptibility panel - 01/17/16 15:30 Oxacillin susceptibility test by minimum inhibitory concentration > = NRG Gentamicin susceptibility test by minimum inhibitory concentration < = NRG Clindamycin susceptibility test by minimum inhibitory concentration 2 NRG Erythromycin susceptibility test by minimum inhibitory concentration >= NRG Trimethoprim/sulfamethoxazole susceptibility test by minimum inhibitoryconcentration 160 NRG Vancomycin susceptibility test by minimum inhibitory concentration 1 NRG Levofloxacin susceptibility test by minimum inhibitory concentration 0.5 NRG Rifampin susceptibility test by minimum inhibitory concentration <= NRG Tetracycline susceptibility test by minimum inhibitory concentration <= NRG Bacteria identification in isolate by anaerobe culture - 02/28/16 15:45 Bacteria identification in isolate by anaerobe culture NOANA NRG Gram stain microscopy - 02/28/16 15:45 GRAM STAIN RESULT NO WBC'S OR BACTERIA OBSERVED NRG Bacteria identification in wound by culture - 02/28/16 15:45 Bacteria identification in wound by culture [id number] NRG FREE TEXT EXTERNAL SENSITIVITY REPORTED AT 1013, 03-01-16 NRG QUANTITY OF GROWTH Scant Growth NRG MRSA AGAR MRSA isolated (Screening test for MRSA is positive) NRG CALL POSITIVES (F1 HELP) CALLED TO AMNA/NEHAL AT 1017, 03-01-16/KD NRG Bacterial susceptibility panel - 02/28/16 15:45 Oxacillin susceptibility test by minimum inhibitory concentration > = NRG Gentamicin susceptibility test by minimum inhibitory concentration < = NRG Clindamycin susceptibility test by minimum inhibitory concentration <= NRG Erythromycin susceptibility test by minimum inhibitory concentration >= NRG Trimethoprim/sulfamethoxazole susceptibility test by minimum inhibitoryconcentration <= NRG Vancomycin susceptibility test by minimum inhibitory concentration 1 NRG Levofloxacin susceptibility test by minimum inhibitory concentration 4 NRG Rifampin susceptibility test by minimum inhibitory concentration <= NRG Tetracycline susceptibility test by minimum inhibitory concentration <= NRG Ciprofloxacin susceptibility test by minimum inhibitory concentration R NRG Bacteria identification in isolate by anaerobe culture - 04/19/16 15:38 Bacteria identification in isolate by anaerobe culture NOANA NRG Gram stain microscopy - 04/19/16 15:38 GRAM STAIN RESULT RARE GRAM POSITIVE ROBEL NRG Bacteria identification in wound by culture - 04/19/16 15:38 Bacteria identification in wound by culture [id number] NRG FREE TEXT EXTERNAL (NOT JK) NRG QUANTITY OF GROWTH Scant Growth NRG MRSA AGAR MRSA isolated (Screening test for MRSA is positive) NRG CALL POSITIVES (F1 HELP) CALLED TO AMNA/NEHAL AT 1230, 04-20-2016/KD NRG Bacterial susceptibility panel - 04/19/16 15:38 Oxacillin susceptibility test by minimum inhibitory concentration > = NRG Gentamicin susceptibility test by minimum inhibitory concentration < = NRG Clindamycin susceptibility test by minimum inhibitory concentration <= NRG Erythromycin susceptibility test by minimum inhibitory concentration >= NRG Trimethoprim/sulfamethoxazole susceptibility test by minimum inhibitoryconcentration <= NRG Vancomycin susceptibility test by minimum inhibitory concentration 1 NRG Levofloxacin susceptibility test by minimum inhibitory concentration 4 NRG Rifampin susceptibility test by minimum inhibitory concentration <= NRG Tetracycline susceptibility test by minimum inhibitory concentration >= NRG Ciprofloxacin susceptibility test by minimum inhibitory concentration R NRG Encounters ACCT No. Visit Date/Time Discharge Status Pt. Type Provider Facility Loc./Unit Complaint [id number] 09/24/2016 15:00:00 09/24/2016 23:59:59 CLS Preadmit MANI SCHMITZ, SUZE Benavides [facility] DSME UNCONTROLLED DIABETES [id number] 07/09/2016 12:00:00 07/09/2016 23:59:59 CLS Preadmit ANTONIA SCHMITZ, CROW Borrero [facility] CARD CHST PAIN SYNDROME,HTN, MR,SOB [id number] 04/19/2016 15:00:00 04/19/2016 16:00:00 DIS Outpatient SLY MYERS APRN [facility] [id number] 03/20/2016 14:18:00 03/28/2016 00:01:00 DIS Outpatient SLY MYERS ADMINISTRATIVE PROJECT COORDINATOR [facility] [id number] 01/06/2016 16:31:00 01/06/2016 19:59:00 DIS Emergency THERESA SCHMITZ, LEE Ayala [facility] ER FEVER/UPSET STOMACH/ PASSING BLOOD [id number] 06/06/2015 21:42:00 06/06/2015 23:06:00 DIS Emergency [employer] [place] J[place] MD [facility] [id number] 12/01/2014 16:40:00 12/01/2014 23:59:59 CLS Outpatient SUZE SINGLETON MD [facility] [id number] 10/27/2014 13:16:00 10/27/2014 15:00:00 DIS Outpatient COLTHARP GRAZYNA MCFADDEN [facility] [id number] 09/15/2014 13:14:00 09/28/2014 00:01:00 DIS Outpatient COLTHARP GRAZYNA MCFADDEN Via [facility] [id number] 03/31/2014 08:15:00 03/31/2014 23:59:59 CLS Outpatient SUZE SINGLETON MD Via [facility] [id number] 03/08/2014 08:15:00 03/08/2014 23:59:59 CLS Outpatient SUZE SINGLETON MD Via [facility] [id number] 03/01/2014 08:30:00 03/01/2014 23:59:59 CLS Outpatient SUZE SINGLETON MD [facility] [id number] 02/22/2014 08:30:00 02/22/2014 23:59:59 CLS Outpatient SUZE SINGLETON MD [facility] [id number] 02/20/2014 08:30:00 02/20/2014 23:59:59 CLS Outpatient TESHA TAY DO [facility] [id number] 02/18/2014 08:30:00 02/18/2014 23:59:59 CLS Outpatient SUZE SINGLETON MD [facility] [id number] 02/15/2014 10:31:00 02/15/2014 23:59:59 CLS Outpatient SUZE SINGLETON MD [facility] [id number] 02/12/2014 12:15:00 02/12/2014 23:59:59 CLS Outpatient KATE CASTILLO DPM [facility] [id number] 02/02/2014 12:35:00 02/10/2014 17:53:00 DIS Inpatient SUZE SINGLETON MD [facility] SURGICAL [id number] 02/01/2014 15:31:00 02/01/2014 23:59:59 CLS Outpatient BLANCHO DPDeniceKATE [facility] PREOP [id number] 01/29/2014 09:20:00 01/29/2014 23:59:59 CLS Outpatient CROW KNIGHT MD [facility] CARD [id number] 01/25/2014 16:39:00 01/25/2014 23:59:59 CLS Outpatient BLANCHO LINHKATE Galdamez [facility] RT [id number] 01/18/2014 10:44:00 01/18/2014 23:59:59 CLS Outpatient BLANCHO VANNESAKATE [facility] CARD [id number] 11/30/2013 08:00:00 12/16/2013 14:05:00 DIS Outpatient EFREN STOKES DO [facility] REHAB [id number] 09/23/2013 09:28:00 09/23/2013 23:59:59 CLS Outpatient [id number] 07/18/2013 19:40:00 07/18/2013 23:59:59 CLS Inpatient SUZE SINGLETON MD [facility] 4TH [id number] 07/11/2012 08:18:00 07/30/2012 08:45:00 DIS Outpatient RITA (ZORAIDA WHITE [facility] REHAB [id number] 06/18/2012 07:21:00 06/18/2012 23:59:59 CLS Outpatient NEY EDEN [facility] RAD [id number] 06/04/2012 08:20:00 Document Registration [id number] 02/16/2012 02:53:00 Document Registration [id number] 10/09/2011 05:49:00 Document Registration [id number] 10/02/2011 09:35:00 Document Registration [id number] 08/31/2011 07:36:00 Document Registration [id number] 08/28/2011 07:39:00 Document Registration [id number] 08/27/2011 09:49:00 Document Registration [id number] 11/24/2008 10:32:00 Document Registration [id number] 11/16/2008 10:15:00 Document Registration [email or web address] 10/28/2014 07:32:00 ACT Document Registration
[2017-12-04] MEDS ORDERED: RT-ALBUTEROL SULF 2.5 MG/3 ML PRE-MIX VIAL INH STA (02:41)
[2017-12-04 02:45] LABS: BASOPHILS % (AUTO) 1 % (0-10); EOSINOPHILS # (AUTO) 0.2 10^3/uL (0.0-0.3); EOSINOPHILS % (AUTO) 2 % (0-10); HEMATOCRIT 44 % (40-54); HEMOGLOBIN 15.4 G/DL (13.3-17.7); LYMPHOCYTES # (AUTO) 2.7 X 10^3 (1.0-4.0); LYMPHOCYTES % (AUTO) 33 % (12-44); MEAN CORPUSCULAR HEMOGLOBIN 30 PG (25-34); MEAN CORPUSCULAR HGB CONC 35 G/DL (32-36); MEAN CORPUSCULAR VOLUME 86 FL (80-99); MEAN PLATELET VOLUME 9.9 FL (7.4-10.4); MONOCYTES # (AUTO) 0.6 X 10^3 (0.0-1.0); MONOCYTES % (AUTO) 7 % (0-12); NEUTROPHILS # (AUTO) 4.6 X 10^3 (1.8-7.8); NEUTROPHILS % (AUTO) 57 % (42-75); PLATELET COUNT 309 10^3/uL (130-400); RED BLOOD COUNT 5.07 10^6/uL (4.35-5.85); RED CELL DISTRIBUTION WIDTH 13.3 % (10.0-14.5); WHITE BLOOD COUNT 8.1 10^3/uL (4.3-11.0)
[2017-12-04] MEDS ORDERED: RT-IPRATROPIUM (ATROVENT) 0.5MG/2.5ML AMP IH ONE (02:45)
[2017-12-04 02:52] LABS: INR 0.9 (0.8-1.4); PROTHROMBIN TIME PATIENT 11.9 SEC (12.2-14.7)
--- NOTE | 2017-12-04 03:08 | ED General ---
General Chief Complaint: Respiratory Problems Stated Complaint: SOA Nursing Triage Note: SOA Nursing Sepsis Screen: No Definite Risk Source of Information: Patient Exam Limitations: No Limitations History of Present Illness Date Seen by Provider: Dec 04, 2017 Time Seen by Provider: 02:26 Initial Comments Here with report of fever yesterday and acute shortness of air today. Worsening tonight and EMS was summoned. Fire department arrived first and noted the patient had an O2 saturation of 80 percent. He was placed on high flow mask which did improve his saturation. She has had coughing and has crackles bilateral with right greater than left. Does have history of diabetes it's uncontrolled currently. Denies nausea or vomiting. Timing/Duration: 1-2 Days, Getting Worse Severity: Moderate, Severe Associated Systoms: No Chest Pain; Cough, Fever/Chills; No Nausea/Vomiting; Shortness of Air, Weakness Allergies and Home Medications Allergies Coded Allergies: egg (Unverified Allergy, Mild, 02/05/14) EGG WHITES FROM UNCODED ALLERGIES Insulins (Unverified Allergy, Unknown, 06/06/15) Milk Containing Products (Unverified Allergy, Unknown, gas/rash, 07/19/13) Penicillins (Unverified Allergy, Unknown, 07/19/13) Sulfa (Sulfonamide Antibiotics) (Unverified Allergy, Unknown, 07/19/13) lidocaine (Verified Allergy, Unknown, 01/06/16) milk (Unverified Allergy, Unknown, gas/rash, 07/19/13) peanut (Unverified Allergy, Unknown, air closes off, 07/19/13) strawberry (Unverified Allergy, Unknown, airway closes off, 07/19/13) codeine (Unverified Adverse Reaction, Mild, NAUSEA, 02/03/14) Uncoded Allergies: ENVIRONMENTAL (Allergy, Unknown, 07/19/13) Home Medications No Active Prescriptions or Reported Meds Patient Home Medication List Home Medication List Reviewed: Yes Review of Systems Review of Systems Constitutional: see HPI; No chills; fever, weakness EENTM: no symptoms reported Respiratory: cough, dyspnea on exertion, short of breath, wheezing Cardiovascular: No chest pain, No edema; palpitations Gastrointestinal: No abdominal pain, No nausea, No vomiting Genitourinary: no symptoms reported Musculoskeletal: no symptoms reported Skin: no symptoms reported All Other Systems Reviewed Negative Unless Noted: Yes Past Qasreay-Fugwmq-Rsrrnx Hx Past Med/Social Hx: Reviewed Nursing Past Med/Soc Hx Patient Social History Alcohol Use: Occasionally Uses Number of Drinks Today: Alcohol Beverage of Choice: Wine Recreational Drug Use: No Smoking Status: Never a Smoker 2nd Hand Smoke Exposure: No Recent Foreign Travel: No Contact w/Someone Who Travel: No Recent Infectious Disease Expo: No Recent Hopitalizations: No Immunizations Up To Date Tetanus Booster (TDap): Unknown Date of Pneumonia Vaccine: Jul 19, 2013 Seasonal Allergies Seasonal Allergies: No Past Medical History Surgeries: Yes (CARPAL TUNNEL RELASE SX, LEFT HAND SURGERY, L FOOT, upper/ lower gi scope) Abdominal, Gallbladder, Orthopedic, Tonsillectomy Respiratory: Yes (ASTHMA/CHRONIC BRONCHITIS/INHALER USE NEEDED) Asthma Cardiac: Yes High Cholesterol, Hypertension Neurological: Yes Headaches /Migraines, Neuropathy Reproductive Disorders: No Sexually Transmitted Disease: No Genitourinary: No Gastrointestinal: Yes Gastroesophageal Reflux, Polyps, Hiatal Hernia Musculoskeletal: Yes Arthritis Endocrine: Yes Diabetes, Non-Insulin dep HEENT: No Cancer: No Psychosocial: Yes Anxiety Integumentary: No Blood Disorders: No Family Medical History Reviewed Nursing Family Hx Congestive heart failure 19 MOTHER Family history: Arthritis 19 FATHER 19 MOTHER Family history: Cardiovascular disease 19 FATHER 19 MOTHER Family history: Diabetes mellitus 19 FATHER Family history: Glaucoma 19 MOTHER Family history: Hypertension 19 FATHER 19 MOTHER Family history: Osteoporosis 19 MOTHER Hearing loss 19 MOTHER Heart disease 19 FATHER 19 MOTHER Myocardial infarction 19 FATHER 19 MOTHER (DBL BYPASS) Stroke 19 MOTHER (MICRO STROKES) No Family History of: Abdominal aortic aneurysm Sony's disease Alcoholism Aphasia Cancer Cancer of colon Cataract Chest pain Congenital heart disease Cystic fibrosis Dementia Dysphagia Family history: Allergy Family history: Alzheimer's disease Family history: Asthma Family history: Breast disease Family history: Coronary thrombosis Family history: Gastrointestinal disease Family history: Thyroid disorder Headache Hereditary disease History of - anemia History of - disorder History of - respiratory disease History of drug abuse Human immunodeficiency virus (HIV) seropositivity Hypercholesterolemia Infertile Kidney disease Malignant neoplasm of lung Parkinson's disease Prostate cancer Psychotic disorder Seizure disorder Tuberculosis Visual impairment Heart Disease, Diabetes, Hypertension Physical Exam-Suspected Sepsis Physical Exam Vital Signs Vital Signs - First Documented 12/04/17 12/04/17 02:30 02:36 Temp 96.5 Pulse 125 Resp 40 B/P (MAP) 172/106 (128) Pulse Ox 100 O2 Delivery NIV/Bilevel O2 Flow Rate 40.00 Capillary Refill : Less Than 3 Seconds Blood Pressure Mean: 128 Height, Weight, BMI Height: 5'9" Weight: 250lbs. oz. 113.939978rn; 37.65 BMI Method:Stated General Appearance: WD/WN, Moderate Distress, Obese HEENT: PERRL/EOMI, Pharynx Normal Neck: Non Tender, Supple Respiratory: Crackles, Decreased Breath Sounds, Expiration, Wheezing Cardiovascular: No Murmur, Tachycardia Gastrointestinal: Non Tender, Soft Back: Normal Inspection, No CVA Tenderness, No Vertebral Tenderness Extremity: Normal Capillary Refill, Normal Inspection, Normal Range of Motion, Non Tender, No Calf Tenderness, No Pedal Edema Neurologic/Psychiatric: Alert, Oriented x3 Skin: normal color, warm/dry Focused Exam Lactate Level 12/04/17 02:30: Lactic Acid Level 3.32*H Lactic Acid Level Laboratory Tests Test 12/04/17 02:30 Lactic Acid Level 3.32 MMOL/L (0.50-2.00) *H Progress/Results/Core Measures Suspected Sepsis Recent Fever Within 48 Hours: No Infection Criteria Present: None New/Unexplained Altered Menta: No Sepsis Screen: No Definite Risk SIRS Temperature:96.5 Pulse: 128 Respiratory Rate: 36 Laboratory Tests 12/04/17 02:30: White Blood Count 8.1 Blood Pressure 172 /106 Mean: 128 12/04/17 02:30: Lactic Acid Level 3.32*H Laboratory Tests 12/04/17 02:30: Creatinine 1.31H, INR Comment 0.9, Platelet Count 309, Total Bilirubin 0.3 Results/Orders Lab Results Laboratory Tests Test 12/04/17 02:30 Range/Units White Blood Count 8.1 4.3-11.0 10^3/uL Red Blood Count 5.07 4.35-5.85 10^6/uL Hemoglobin 15.4 13.3-17.7 G/DL Hematocrit 44 40-54 % Mean Corpuscular Volume 86 80-99 FL Mean Corpuscular Hemoglobin 30 25-34 PG Mean Corpuscular Hemoglobin Concent 35 32-36 G/DL Red Cell Distribution Width 13.3 10.0-14.5 % Platelet Count 309 130-400 10^3/uL Mean Platelet Volume 9.9 7.4-10.4 FL Neutrophils (%) (Auto) 57 42-75 % Lymphocytes (%) (Auto) 33 12-44 % Monocytes (%) (Auto) 7 0-12 % Eosinophils (%) (Auto) 2 0-10 % Basophils (%) (Auto) 1 0-10 % Neutrophils # (Auto) 4.6 1.8-7.8 X 10^3 Lymphocytes # (Auto) 2.7 1.0-4.0 X 10^3 Monocytes # (Auto) 0.6 0.0-1.0 X 10^3 Eosinophils # (Auto) 0.2 0.0-0.3 10^3/uL Basophils # (Auto) 0.0 0.0-0.1 10^3/uL Prothrombin Time 11.9 L 12.2-14.7 SEC INR Comment 0.9 0.8-1.4 Activated Partial Thromboplast Time 30 24-35 SEC Sodium Level 136 135-145 MMOL/L Potassium Level 3.7 3.6-5.0 MMOL/L Chloride Level 98 98-107 MMOL/L Carbon Dioxide Level 20 L 21-32 MMOL/L Anion Gap 18 H 5-14 MMOL/L Blood Urea Nitrogen 8 7-18 MG/DL Creatinine 1.31 H 0.60-1.30 MG/DL Estimat Glomerular Filtration Rate 56 BUN/Creatinine Ratio 6 Glucose Level 579 *H 70-105 MG/DL Lactic Acid Level 3.32 *H 0.50-2.00 MMOL/L Calcium Level 9.1 8.5-10.1 MG/DL Corrected Calcium 9.3 8.5-10.1 MG/DL Total Bilirubin 0.3 0.1-1.0 MG/DL Aspartate Amino Transf (AST/SGOT) 21 5-34 U/L Alanine Aminotransferase (ALT/SGPT) 20 0-55 U/L Alkaline Phosphatase 79 40-136 U/L B-Type Natriuretic Peptide 199.9 H <100.0 PG/ML Total Protein 7.7 6.4-8.2 GM/DL Albumin 3.8 3.2-4.5 GM/DL Micro Results Microbiology 12/04/17 Influenza Types A,B Antigen (ADELAIDE) - Final, Complete My Orders Orders - BELTRAN KAT MD BNP (12/04/17 02:38) Cbc With Automated Diff (12/04/17 02:39) Comprehensive Metabolic Panel (12/04/17 02:39) Blood Culture (12/04/17 02:39) Sputum Culture (12/04/17 02:39) Urinalysis (12/04/17 02:39) Urine Culture (12/04/17 02:39) Protime With Inr (12/04/17 02:39) Partial Thromboplastin Time (12/04/17 02:39) Chest 1 View, Ap/Pa Only (12/04/17 02:39) Ekg Tracing (12/04/17 02:39) Vital Signs Adult Sepsis Patie Q15M (12/04/17 02:39) O2 (12/04/17 02:39) Remove Rings In Anticipation O (12/04/17 02:39) Lactic Acid Analyzer (12/04/17 02:39) Influenza A And B Antigens (12/04/17 02:41) Albuterol Pre-Mix Nebs (Rt) (Proventil (12/04/17 02:41) Svn Small Volume Nebulizer (12/04/17 02:41) Ipratropium 0.02% Neb Solution (Atrovent (12/04/17 02:45) Svn Small Volume Nebulizer (12/04/17 02:41) Saline Lock/Iv-Start (12/04/17 03:15) Ns Iv 500 Ml (Sodium Chloride 0.9%) (12/04/17 03:15) Insulin (Regular) Human (Humulin R (Per (12/04/17 03:15) Ceftriaxone For Iv Use (Rocephin For I (12/04/17 03:30) Medications Given in ED Current Medications Medications Dose Ordered Sig/Brissa Route Start Time Stop Time Status Last Admin Dose Admin Ceftriaxone Sodium 1000 mg/ Sodium Chloride 60 ml @ 100 mls/hr ONCE ONCE IV 12/04/17 03:30 12/04/17 04:05 12/04/17 03:30 100 MLS/HR Insulin Human Regular 15 unit ONCE ONCE SC 12/04/17 03:15 12/04/17 03:21 DC 12/04/17 03:26 15 UNIT Ipratropium [place] 0.5 mg ONCE ONCE IH 12/04/17 02:45 12/04/17 02:46 DC 12/04/17 02:56 0.5 MG Sodium Chloride 500 ml @ 0 mls/hr Q0M ONCE IV 12/04/17 03:15 12/04/17 03:21 DC 12/04/17 03:26 0 MLS/HR Vital Signs/I&O 12/04/17 12/04/17 12/04/17 02:30 02:36 02:57 Temp 96.5 Pulse 125 128 131 Resp 40 36 37 B/P (MAP) 172/106 (128) Pulse Ox 100 100 O2 Delivery NIV/Bilevel O2 Flow Rate 40.00 40.00 40.00 Capillary Refill : Less Than 3 Seconds Blood Pressure Mean: 128 Progress Note : Progress Note Seen and evaluated. IV, labs, EKG, chest x-ray, blood cultures and lactic acid ordered. Patient placed on BiPAP at 16/8 which is improving his symptoms. DuoNeb complete from EMS. Continuous hour-long treatment initiated due to extremis. Monitor patient. 0313: Glucose over 500 and lactic acid elevated. Patient has findings of heart failure as well as pneumonia. Lactic acid elevation is likely due in part to the hyperglycemic state and the uncontrolled diabetes. Fluids will need to be used cautiously in this patient. We will continue BiPAP. 0320: Humulin R insulin 15 units subcutaneous ordered. Patient has allergy to horse derived insulin. Normal saline 500 mL bolus ordered. Patient improved on BiPAP. Blood pressure now 120s over 80s. Breathing is much improved on BiPAP with breathing treatment running. Remains tachycardic. O2 sat 100 percent on BiPAP. 0340: I did discuss the case with Dr. PAUL and he accepts patient for admission, inpatient status. Rocephin 1 g IV has been ordered for pneumonia. We will put patient on ICU stepdown. Discussed with patient who agrees with plan. ECG Initial ECG Impression Date: Dec 04, 2017 Initial ECG Impression Time: 02:32 Initial ECG Rate: 126 Initial ECG Rhythm: S.Tach Comment Sinus tachycardia with normal but rightward axis. No evidence of ST elevation FL. Change from May 2017 in that T waves are more flattened currently. Interpreted by me. Diagnostic Imaging Diagonstic Imaging: Xray Plain Films/CT/US/NM/MRI: chest Comments Right basilar infiltrate with bilateral pulmonary congestion Reviewed: Reviewed by Me Departure Communication (Admissions) Time/Spoke to Admitting Phy: 03:40 Impression Primary Impression: Right lower lobe pneumonia Qualified Codes: J18.1 - Lobar pneumonia, unspecified organism Additional Impression: Uncontrolled diabetes mellitus Qualified Codes: E11.65 - Type 2 diabetes mellitus with hyperglycemia Disposition: ADMITTED INPATIENT Condition: Stable Admissions Decision to Admit Reason: Admit from ER (General) Decision to Admit/Date: Dec 04, 2017 Time/Decision to Admit Time: 03:40 Departure-Patient Inst. Referrals: SUZE SINGLETON MD (PCP/Family) Primary Care Physician Scripts No Active Prescriptions or Reported Meds BELTRAN KAT MD Dec 04, 2017 03:08
[2017-12-04 03:09] LABS: ALBUMIN 3.8 GM/DL (3.2-4.5); BILIRUBIN,TOTAL 0.3 MG/DL (0.1-1.0); CALCIUM 9.1 MG/DL (8.5-10.1); CREATININE SERUM 1.31 MG/DL (0.60-1.30); POTASSIUM 3.7 MMOL/L (3.6-5.0); TOTAL PROTEIN 7.7 GM/DL (6.4-8.2)
[2017-12-04] MEDS ORDERED: NS IV 500 ML 500 ML IV ONE (03:15)
[2017-12-04] MEDS ORDERED: inSUlin (REGULAR) HUMAN 1 UNIT/0.01 ML (CHARGE PER UNIT) SC ONE (03:15)
[2017-12-04] MEDS ORDERED: cefTRIAXone FOR IV USE 1,000 MG in NS (IVPB) 50 ML IV ONE (03:30)
--- OUTSIDE RECORDS SUMMARY | 2017-12-04 04:07 | XMS REPORT | Continuity of Care Document ---
Author Author [facility] Organization [facility] Address Unknown Phone Unavailable Allergies Active Description Code Type Severity Reaction Onset Reported/Identified Relationship to Patient Clinical Status Yes codeine [id number] Drug Allergy Unknown N/A 07/19/2013 Yes ENVIRONMENTAL ENVIRONMENTAL Unknown N/A 07/19/2013 Yes milk [id number] Drug Allergy Unknown gas/rash 07/19/2013 Yes Milk Containing Products [id number] Drug Allergy Unknown gas/rash 2013 Yes peanut [id number] Drug Allergy Unknown air closes off 07/19/2013 Yes Penicillins [id number] Drug Allergy Unknown N/A 07/19/2013 Yes strawberry [id number] Drug Allergy Unknown airway closes o 07/19/2013 Yes Sulfa (Sulfonamide Antibiotics) [id number] Drug Allergy Unknown N/A 2013 Yes EGG WHITES EGG WHITES Mild N/A 02/02/2014 Yes codeine [id number] Drug Allergy Mild NAUSEA 02/03/2014 Yes egg [id number] Drug Allergy Mild N/A 02/05/2014 Yes Insulins [id number] Drug Allergy Unknown N/A 06/06/2015 Yes lidocaine [id number] Drug Allergy Unknown N/A 01/06/2016 Medications There [...] 730.27 03/19/2014 SUZE SINGLETON MD Ot V58.62 03/29/2014 SUZE SINGLETON [...] NOS 06/07/2015 KATE CASTILLO DPM Ot 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 NOS 06/07/2015 KATE CASTILLO DPM Ot [...] BREATH 06/07/2015 CROW KNIGHT MD Ot V72.81 [id number] CARDIOVASCULAR 06/07/2015 BLANCHO DPM, KATE G Ot [...] ENCOUNT FOR LONG-TERM(CURRENT) USE OF AN 06/07/2015 SZUE SINGLETON MD Ot 730.27 OSTEOMYELITIS NOS-ANKLE 06/07/2015 [...] 01/06/2016 LEE CARDENAS MD T Ot Z79.84 JAIL (CURRENT) USE OF ORAL HYPOGLYC 01/06/2016 LEE CARDENAS MD T Ot Z79.899 OTHER RELATIONSHIP MANAGEMENT LEAD (CURRENT) DRUG THERAPY 01/09/2016 LEE CARDENAS MD Ot E11.9 TYPE 2 DIABETES MELLITUS WITHOUT COMPLIC 01/09/2016 LEE CARDENAS MD Ot I10 ESSENTIAL (PRIMARY) HYPERTENSION 01/09/2016 LEE CARDENAS MD T Ot R10.30 LOWER ABDOMINAL PAIN, UNSPECIFIED 01/09/2016 LEE CARDENAS MD T Ot Z79.84 RELATIONSHIP MANAGEMENT LEAD (CURRENT) USE OF ORAL HYPOGLYC 01/09/2016 LEE CARDENAS MD T Ot Z79.899 OTHER JAIL (CURRENT) DRUG THERAPY 02/01/2016 SLY MYERS COFFEE WEIGHER Ot E08.40 DIABETES DUE TO UNDERLYING CONDITION W D 02/01/2016 SLY MYERS COFFEE WEIGHER Ot L97.511 NON-PRS CHRONIC ULCER OTH PRT R FOOT ROJAS 02/01/2016 SLY MYERS COFFEE WEIGHER Ot L97.512 NON-PRS CHRONIC ULCER OTH PRT RIGHT FOOT 03/28/2016 SLY MYERS COFFEE WEIGHER Ot E08.40 DIABETES DUE TO UNDERLYING CONDITION W D 03/28/2016 SLY MYERS COFFEE WEIGHER Ot L97.511 NON-PRS CHRONIC ULCER OTH PRT R FOOT ROJAS 03/28/2016 SLY MYERS COFFEE WEIGHER Ot L97.512 NON-PRS CHRONIC ULCER OTH PRT RIGHT FOOT 03/29/2016 SLY MYERS COFFEE WEIGHER Ot E08.40 DIABETES DUE TO UNDERLYING CONDITION W D 03/29/2016 SLY MYERS COFFEE WEIGHER Ot L97.511 NON-PRS CHRONIC ULCER OTH PRT R FOOT ROJAS 03/29/2016 LUCIA SLY R COFFEE WEIGHER Ot L97.512 NON-PRS CHRONIC ULCER OTH PRT RIGHT FOOT 03/30/2016 PETERSON MYERSN R COFFEE WEIGHER Ot E08.40 DIABETES DUE TO UNDERLYING CONDITION W D 03/30/2016 PETERSON MYERSN R COFFEE WEIGHER Ot L97.511 NON-PRS CHRONIC ULCER OTH PRT R FOOT ROJAS 03/30/2016 LUCIA SLY R COFFEE WEIGHER Ot L97.512 NON-PRS CHRONIC ULCER OTH PRT RIGHT FOOT 05/03/2016 LUCIAPETERSONN R COFFEE WEIGHER Ot E08.40 DIABETES DUE TO UNDERLYING CONDITION W D 05/03/2016 PETERSON MYERSN R COFFEE WEIGHER Ot L97.511 NON-PRS CHRONIC ULCER OTH PRT R FOOT ROJAS 05/03/2016 PETERSON MYERSN R COFFEE WEIGHER Ot L97.512 NON-PRS CHRONIC ULCER OTH PRT [...] 11:07 Bacteria identification in wound by culture [id number] NRG QUANTITY OF GROWTH Scant Growth NRG [...] 15:30 Bacteria identification in wound by culture [id number] NRG FREE TEXT EXTERNAL SENSITIVITY REPORTED AT [...] 15:45 Bacteria identification in wound by culture [id number] NRG FREE TEXT EXTERNAL SENSITIVITY REPORTED AT [...] 15:38 Bacteria identification in wound by culture [id number] NRG FREE TEXT EXTERNAL (NOT JK) NRG [...] Status Pt. Type Provider Facility Loc./Unit Complaint [id number] 09/24/2016 15:00:00 09/24/2016 23:59:59 CLS Preadmit MANI SCHMITZ, SUZE Benavides [facility] DSME UNCONTROLLED DIABETES [id number] 07/09/2016 12:00:00 07/09/2016 23:59:59 CLS Preadmit ANTONIA SCHMITZ, CROW Borrero [facility] CARD CHST PAIN SYNDROME,HTN, MR,SOB [id number] 04/19/2016 15:00:00 04/19/2016 16:00:00 DIS Outpatient SLY MYERS APRN [facility] WOUNDCARE [id number] 03/20/2016 14:18:00 03/28/2016 00:01:00 DIS Outpatient SLY MYERS COFFEE WEIGHER [facility] WOUNDCARE [id number] 01/06/2016 16:31:00 01/06/2016 19:59:00 DIS Emergency THERESA SCHMITZ, LEE Ayala [facility] ER FEVER/UPSET STOMACH/ PASSING BLOOD [id number] 06/06/2015 21:42:00 06/06/2015 23:06:00 DIS Emergency HOOPABELTRAN JESSICA MD [facility] [id number] 12/01/2014 16:40:00 12/01/2014 23:59:59 CLS Outpatient SUZE SINGLETON MD [facility] [id number] 10/27/2014 13:16:00 10/27/2014 15:00:00 DIS Outpatient COLTHARP GRAZYNA MCFADDEN [facility] WOUNDCARE [id number] 09/15/2014 13:14:00 09/28/2014 00:01:00 DIS Outpatient COLTHARP GRAZYNA MCFADDEN [facility] WOUNDCARE [id number] 03/31/2014 08:15:00 03/31/2014 23:59:59 CLS Outpatient SUZE SINGLETON MD [facility] [id number] 03/08/2014 08:15:00 03/08/2014 23:59:59 CLS Outpatient SUZE SINGLETON MD [facility] [id number] 03/01/2014 08:30:00 03/01/2014 23:59:59 CLS Outpatient SUZE SINGLETON MD [facility] [id number] 02/22/2014 08:30:00 02/22/2014 23:59:59 CLS Outpatient SUZE SINGLETON MD [facility] [id number] 02/20/2014 08:30:00 02/20/2014 23:59:59 CLS Outpatient TESHA TAY DO [facility] [id number] 02/18/2014 08:30:00 02/18/2014 23:59:59 CLS Outpatient SUZE SINGLETON MD [facility] [id number] 02/15/2014 10:31:00 02/15/2014 23:59:59 CLS Outpatient SUZE SINGLETON MD [facility] [id number] 02/12/2014 12:15:00 02/12/2014 23:59:59 CLS Outpatient KATE CASTILLO DPM [facility] [id number] 02/02/2014 12:35:00 02/10/2014 17:53:00 DIS Inpatient SUZE SINGLETON MD [facility] SURGICAL [id number] 02/01/2014 15:31:00 02/01/2014 23:59:59 CLS Outpatient BLANCHO DPDeniceKATE [facility] PREOP [id number] 01/29/2014 09:20:00 01/29/2014 23:59:59 CLS Outpatient CROW KNIGHT MD [facility] CARD [id number] 01/25/2014 16:39:00 01/25/2014 23:59:59 CLS Outpatient BLANCHO LINHKATE Galdamez [facility] RT [id number] 01/18/2014 10:44:00 01/18/2014 23:59:59 CLS Outpatient BLANCHO VANNESAKATE [facility] CARD [id number] 11/30/2013 08:00:00 12/16/2013 14:05:00 DIS Outpatient EFREN STOKES DO [facility] REHAB [id number] 09/23/2013 09:28:00 09/23/2013 23:59:59 CLS Outpatient [id number] 07/18/2013 19:40:00 07/18/2013 23:59:59 CLS Inpatient SUZE SINGLETON MD [facility] 4TH [id number] 07/11/2012 08:18:00 07/30/2012 08:45:00 DIS Outpatient RITA (ZORAIDA WHITE [facility] REHAB [id number] 06/18/2012 07:21:00 06/18/2012 23:59:59 CLS Outpatient NEY EDEN [facility] RAD [id number] 06/04/2012 08:20:00 Document Registration [id number] 02/16/2012 02:53:00 Document Registration [id number] 10/09/2011 05:49:00 Document Registration [id number] 10/02/2011 09:35:00 Document Registration [id number] 08/31/2011 07:36:00 Document Registration [id number] 08/28/2011 07:39:00 Document Registration [id number] 08/27/2011 09:49:00 Document Registration [id number] 11/24/2008 10:32:00 Document Registration [id number] 11/16/2008 10:15:00 Document Registration [email or web address] 10/28/2014 07:32:00 ACT Document Registration
[2017-12-04] MEDS ORDERED: NS IV 1000 ML 1,000 ML ONE (04:30)
[2017-12-04] MEDS ORDERED: RT-ALBUTEROL/IPRATROPIUM 3 ML (DUONEB) VIAL INH PRN (04:45)
[2017-12-04 04:58] LABS: BILIRUBIN,URINE NEGATIVE (NEGATIVE); CLARITY,URINE CLEAR; COLOR,URINE YELLOW; GLUCOSE, URINE (UA) 4+ (NEGATIVE); KETONES,URINE NEGATIVE (NEGATIVE); NITRITE,URINE NEGATIVE (NEGATIVE); PH,URINE 6.5 (5-9); PROTEIN,URINE 4+ (NEGATIVE); UROBILINOGEN,URINE NORMAL (NORMAL)
[2017-12-04] MEDS ORDERED: ONDANSETRON 4 MG/2 ML (SDV) Z0FRAN IV PRN (05:00)
[2017-12-04 05:06] LABS: LEUKOCYTE ESTERASE ,URINE 1+ (NEGATIVE)
[2017-12-04 05:07] LABS: BACTERIA,URINE TRACE /HPF; RBC,URINE 0-2 /HPF
[2017-12-04] MEDS: AZITHROMYCIN 500 MG/NS 250 ML IVPB IV SCH ×2 (05:09)
[2017-12-04] MEDS: NS IV 1000 ML 1,000 ML IV SCH ×2 (05:10→16:02)
[2017-12-04 05:23] LABS: MAGNESIUM 2.2 MG/DL (1.8-2.4); PHOSPHORUS 5.1 MG/DL (2.3-4.7)
[2017-12-04] MEDS: RT-ALBUTEROL/IPRATROPIUM 3 ML (DUONEB) VIAL INH SCH ×5 (06:45→22:48)
--- NOTE | 2017-12-04 07:20 | Diagnostic Imaging Report ---
INDICATION: Two-day history of shortness of air. TECHNIQUE: Single view chest 2:51 AM. CORRELATION STUDY: 06/06/2015 FINDINGS: Heart size enlarged. Vasculature is increased from prior study. Prominent interstitial markings favor a component of mild edema. IMPRESSION: 1. Cardiac enlargement with vascular congestion suggested, changed from prior study. Component of interstitial edema also present. 2. Additional superimposed infiltrate versus edema about the right lung base with additional areas of likely atelectasis versus less likely infiltrate in left mid lung field. Dictated by: Dictated on workstation # [id number]
--- NOTE | 2017-12-04 07:36 | Pulmonary Consultation ---
History of Present Illness History of Present Illness Date of Consultation 12/04/17 07:30 Time Seen by Provider: 07:30 Date of Admission History of Present Illness 57yo presented secondary to worsening SOB via EMS. PT was found to have Sp02 of 80% upon EMS arrival. Allergies and Home Medications Allergies Coded Allergies: egg (Unverified Allergy, Mild, 02/05/14) EGG WHITES FROM UNCODED ALLERGIES Insulins (Unverified Allergy, Unknown, 06/06/15) Milk Containing Products (Unverified Allergy, Unknown, gas/rash, 07/19/13) Penicillins (Unverified Allergy, Unknown, 07/19/13) Sulfa (Sulfonamide Antibiotics) (Unverified Allergy, Unknown, 07/19/13) lidocaine (Verified Allergy, Unknown, 01/06/16) milk (Unverified Allergy, Unknown, gas/rash, 07/19/13) peanut (Unverified Allergy, Unknown, air closes off, 07/19/13) strawberry (Unverified Allergy, Unknown, airway closes off, 07/19/13) codeine (Unverified Adverse Reaction, Mild, NAUSEA, 02/03/14) Uncoded Allergies: ENVIRONMENTAL (Allergy, Unknown, 07/19/13) Home Medications No Active Prescriptions or Reported Meds Past Rcwgumh-Omhuwz-Kgasgr Hx Past Med/Social Hx: Reviewed Nursing Past Med/Soc Hx Patient Social History Alcohol Use: Occasionally Uses Number of Drinks Today: Alcohol Beverage of Choice: Wine Recreational Drug Use: No Smoking Status: Never a Smoker 2nd Hand Smoke Exposure: No Recent Foreign Travel: No Contact w/Someone Who Travel: No Recent Infectious Disease Expo: No Recent Hopitalizations: No Immunizations Up To Date Tetanus Booster (TDap): Unknown Date of Pneumonia Vaccine: Aug 18, 2013 Seasonal Allergies Seasonal Allergies: No Past Medical History Surgeries: Yes (CARPAL TUNNEL RELASE SX, LEFT HAND SURGERY, L FOOT, upper/ lower gi scope) Abdominal, Gallbladder, Orthopedic, Tonsillectomy Respiratory: Yes (ASTHMA/CHRONIC BRONCHITIS/INHALER USE NEEDED) Asthma Currently Using CPAP: No Currently Using BIPAP: No Cardiac: Yes High Cholesterol, Hypertension Neurological: No Headaches /Migraines, Neuropathy Reproductive Disorders: No Sexually Transmitted Disease: No Genitourinary: No Gastrointestinal: Yes Gastroesophageal Reflux, Polyps, Hiatal Hernia Musculoskeletal: Yes (Left foot sx) Arthritis Endocrine: Yes Diabetes, Non-Insulin dep HEENT: No Loss of Vision: Denies Hearing Impairment: Denies Cancer: No Psychosocial: Yes Anxiety Integumentary: Yes Psoriasis Blood Disorders: No Adverse Reaction/Blood Tranf: No Family Medical History Reviewed Nursing Family Hx Congestive heart failure 19 MOTHER Family history: Arthritis 19 FATHER 19 MOTHER Family history: Cardiovascular disease 19 FATHER 19 MOTHER Family history: Diabetes mellitus 19 FATHER Family history: Glaucoma 19 MOTHER Family history: Hypertension 19 FATHER 19 MOTHER Family history: Osteoporosis 19 MOTHER Hearing loss 19 MOTHER Heart disease 19 FATHER 19 MOTHER Myocardial infarction 19 FATHER 19 MOTHER (DBL BYPASS) Stroke 19 MOTHER (MICRO STROKES) No Family History of: Abdominal aortic aneurysm Weston's disease Alcoholism Aphasia Cancer Cancer of colon Cataract Chest pain Congenital heart disease Cystic fibrosis Dementia Dysphagia Family history: Allergy Family history: Alzheimer's disease Family history: Asthma Family history: Breast disease Family history: Coronary thrombosis Family history: Gastrointestinal disease Family history: Thyroid disorder Headache Hereditary disease History of - anemia History of - disorder History of - respiratory disease History of drug abuse Human immunodeficiency virus (HIV) seropositivity Hypercholesterolemia Infertile Kidney disease Malignant neoplasm of lung Parkinson's disease Prostate cancer Psychotic disorder Seizure disorder Tuberculosis Visual impairment Heart Disease, Diabetes, Hypertension Review of Systems Time Seen by Provider: 08:53 Sepsis Event Evaluation Height, Weight, BMI Height: 5'10.00" Weight: 260lbs. 6.0oz. 118.902985wt; 37.4 BMI Method:Stated Exam Exam Vital Signs Date Time Temp Pulse Resp B/P (MAP) Pulse Ox O2 Delivery O2 Flow Rate FiO2 12/04/17 06:45 97 Nasal Cannula 1.00 12/04/17 04:27 135 12/04/17 04:26 129 105/77 (86) 96 Room Air 12/04/17 04:20 93 Nasal Cannula 3.00 12/04/17 04:20 133 93 32 12/04/17 04:14 97 Nasal Cannula 3.00 12/04/17 03:50 96.7 131 20 113/67 (82) 100 NIV Bilevel 40.00 12/04/17 02:57 131 37 40.00 12/04/17 02:36 96.5 128 36 172/106 (128) 100 NIV/Bilevel 40.00 12/04/17 02:30 125 40 100 40.00 I & O 12/04/17 07:00 Intake Total 1060 ml Output Total 1600 ml Balance -540 ml Height & Weight Height: 5'10.00" Weight: 260lbs. 6.0oz. 118.573831zn; 37.4 BMI Method:Stated General Appearance: WD/WN, Moderate Distress, Obese HEENT: PERRL/EOMI, Pharynx Normal Neck: Non Tender, Supple Respiratory: Crackles, Decreased Breath Sounds, Expiration, Wheezing Cardiovascular: No Murmur, Tachycardia Capillary Refill: Less Than 3 Seconds Extremity: Normal Capillary Refill, Normal Inspection, Normal Range of Motion, Non Tender, No Calf Tenderness, No Pedal Edema Neurologic/Psychiatric: Alert, Oriented x3 Skin: Normal Color, Warm/Dry Lymphatic: No Adenopathy Results Lab Laboratory Tests 12/04/17 02:30 Assessment/Plan Assessment/Plan Hypoxia with respiratory distress -BiPAP PRN -CHeck ABG RLL pneumonia - Metabolic lactic acidosis with dehydration -IVF possible pulmonary edema vs interstitial pneumonia -Check echocardiogram GIULIANA WARNER DO Dec 04, 2017 07:36
--- NOTE | 2017-12-04 08:53 | History & Physical-Hospitalist ---
History of Present Illness Date Seen 12/04/17 Attending Physician Edward Wilder MD PCP Chin Sam MD Referring Physician Date of Admission Dec 04, 2017 at 03:44 Home Medications & Allergies Home Medications Reviewed patient Home Medication Reconciliation performed by pharmacy medication reconciliations medical technicians and/or nursing. Patients Allergies have been reviewed. Allergies Allergies Coded Allergies egg (Unverified Allergy, Mild, 02/05/14) EGG WHITES FROM UNCODED ALLERGIES Insulins (Unverified Allergy, Unknown, 06/06/15) Milk Containing Products (Unverified Allergy, Unknown, gas/rash, 07/19/13) Penicillins (Unverified Allergy, Unknown, 07/19/13) Sulfa (Sulfonamide Antibiotics) (Unverified Allergy, Unknown, 07/19/13) lidocaine (Verified Allergy, Unknown, 01/06/16) milk (Unverified Allergy, Unknown, gas/rash, 07/19/13) peanut (Unverified Allergy, Unknown, air closes off, 07/19/13) strawberry (Unverified Allergy, Unknown, airway closes off, 07/19/13) codeine (Unverified Adverse Reaction, Mild, NAUSEA, 02/03/14) Uncoded Allergies ENVIRONMENTAL ( Allergy, Unknown, 07/19/13) Past Ltjwffk-Nyxlht-Lroycv Hx Past Med/Social Hx: Reviewed Nursing Past Med/Soc Hx Patient Social History Alcohol Use: Occasionally Uses Number of Drinks Today: Alcohol Beverage of Choice: Wine Recreational Drug Use: No Smoking Status: Never a Smoker 2nd Hand Smoke Exposure: No Physical Abuse Screen: Yes Sexual Abuse: No Recent Foreign Travel: No Contact w/other who traveled: No Recent Hopitalizations: No Recent Infectious Disease Expo: No Immunizations Up To Date Tetanus Booster (TDap): Unknown Date of Pneumonia Vaccine: Aug 18, 2013 Seasonal Allergies Seasonal Allergies: No Past Medical History Surgeries: Abdominal, Gallbladder, Orthopedic, Tonsillectomy Currently Using CPAP: No Currently Using BIPAP: No Cardiac: High Cholesterol, Hypertension Neurological: Headaches /Migraines, Neuropathy Reproductive: No Sexually Transmitted Disease: No Gastrointestinal: Gastroesophageal Reflux, Polyps, Hiatal Hernia Musculoskeletal: Arthritis Endocrine: Diabetes, Non-Insulin dep Loss of Vision: Denies Hearing Impairment: Denies Psychosocial: Anxiety Skin/Integumentary: Psoriasis History of Blood Disorders: No Adverse Reaction to Blood Rust: No Family History Reviewed Nursing Family Hx Congestive heart failure 19 MOTHER Family history: Arthritis 19 FATHER 19 MOTHER Family history: Cardiovascular disease 19 FATHER 19 MOTHER Family history: Diabetes mellitus 19 FATHER Family history: Glaucoma 19 MOTHER Family history: Hypertension 19 FATHER 19 MOTHER Family history: Osteoporosis 19 MOTHER Hearing loss 19 MOTHER Heart disease 19 FATHER 19 MOTHER Myocardial infarction 19 FATHER 19 MOTHER (DBL BYPASS) Stroke 19 MOTHER (MICRO STROKES) No Family History of: Abdominal aortic aneurysm Sony's disease Alcoholism Aphasia Cancer Cancer of colon Cataract Chest pain Congenital heart disease Cystic fibrosis Dementia Dysphagia Family history: Allergy Family history: Alzheimer's disease Family history: Asthma Family history: Breast disease Family history: Coronary thrombosis Family history: Gastrointestinal disease Family history: Thyroid disorder Headache Hereditary disease History of - anemia History of - disorder History of - respiratory disease History of drug abuse Human immunodeficiency virus (HIV) seropositivity Hypercholesterolemia Infertile Kidney disease Malignant neoplasm of lung Parkinson's disease Prostate cancer Psychotic disorder Seizure disorder Tuberculosis Visual impairment Heart Disease, Diabetes, Hypertension Physical Exam Physical Exam Vital Signs Vital Signs - First Documented 12/04/17 12/04/17 12/04/17 02:30 02:36 04:20 Temp 96.5 Pulse 125 Resp 40 B/P (MAP) 172/106 (128) Pulse Ox 100 O2 Delivery NIV/Bilevel O2 Flow Rate 40.00 FiO2 32 Capillary Refill : Less Than 3 Seconds Height, Weight, BMI Height: 5'10.00" Weight: 260lbs. 6.0oz. 118.494875vg; 37.4 BMI Method:Stated Results Results/Procedures Labs Laboratory Tests 12/04/17 02:30 Patient resulted labs reviewed. Clinical Quality Measures DVT/VTE Risk/Contraindication: Risk Factor Score Per Nursin RFS Level Per Nursing on Admit: 2=Moderate DEIRDRE DIANA DO Dec 04, 2017 08:53
[2017-12-04] MEDS ORDERED: LACTATED RINGERS 1,000 ML IV ONE (09:22)
[2017-12-04] MEDS ORDERED: MAGN250T13 PO (10:53)
[2017-12-04] MEDS ORDERED: FEXO180T84 PO (10:53)
[2017-12-04] MEDS ORDERED: OMEP20TA33 PO (10:53)
[2017-12-04] MEDS ORDERED: MULT-35 PO (10:53)
[2017-12-04] MEDS ORDERED: [UNRECOGNIZED DRUG - OTHER] PO (10:53)
[2017-12-04] MEDS ORDERED: BUTT75CA PO (10:53)
[2017-12-04] MEDS ORDERED: FOLI0.8C PO (10:53)
[2017-12-04] MEDS ORDERED: PIOG30TA38 PO (10:53)
[2017-12-04] MEDS ORDERED: ASCO-262 PO (10:53)
[2017-12-04] MEDS ORDERED: CHOL10007 PO (10:53)
[2017-12-04] MEDS ORDERED: CYAN-23 PO (10:53)
[2017-12-04] MEDS ORDERED: OMEG-118 PO (10:53)
[2017-12-04 10:55] LABS: ABG BASE EXCESS -1.6 MMOL/L (-2.5-2.5); ABG OXYGEN SATURATION 98 % (94-100); ABG PCO2 37 MMHG (35-45); ABG PO2 87 MMHG (79-93); ABG TCO2 23.6 MMOL/L (21.0-31.0)
[2017-12-04 10:56] LABS: ALLENS TEST POSITIVE; PATIENT TEMP 98.2; VENTILATOR NO
--- NOTE | 2017-12-04 14:10 | History & Physical-Hospitalist ---
EDWARD PAUL MD 12/04/17 1410: History of Present Illness HPI/Chief Complaint The patient is a 57-year-old white male admitted from the emergency room last night. He presented with complaints of increasing shortness of breath. He reported that this began on Saturday. He was not febrile and had no chills. The shortness of breath continued and he began to notice some swelling in his legs and ankles. He has no past history of heart disease. His blood sugar in the emergency room was 579. He is known to be diabetic but has not had his medicines because he has been unable to afford them. He has noted THIRST and frequency of urination for the past 2 weeks or so. For reasons not entirely clear to me, he would guess that his hemoglobin and once he might be 12 or greater. He has described no chest pain recently. Exam Limitations: no limitations Date Seen 12/04/17 Time Seen by a Provider: 14:10 Attending Physician Edward Paul MD PCP Chin Sam MD Referring Physician Date of Admission Dec 04, 2017 at 03:44 Home Medications & Allergies Home Medications Reviewed patient Home Medication Reconciliation performed by pharmacy medication reconciliations structural technician and/or nursing. Patients Allergies have been reviewed. Allergies Allergies Coded Allergies egg (Unverified Allergy, Mild, 02/05/14) EGG WHITES FROM UNCODED ALLERGIES Insulins (Unverified Allergy, Unknown, 06/06/15) Milk Containing Products (Unverified Allergy, Unknown, gas/rash, 07/19/13) Penicillins (Unverified Allergy, Unknown, 07/19/13) Sulfa (Sulfonamide Antibiotics) (Unverified Allergy, Unknown, 07/19/13) lidocaine (Verified Allergy, Unknown, 01/06/16) milk (Unverified Allergy, Unknown, gas/rash, 07/19/13) peanut (Unverified Allergy, Unknown, air closes off, 07/19/13) strawberry (Unverified Allergy, Unknown, airway closes off, 07/19/13) codeine (Unverified Adverse Reaction, Mild, NAUSEA, 02/03/14) Uncoded Allergies ENVIRONMENTAL ( Allergy, Unknown, 07/19/13) Past Riopaep-Tpeotx-Cewkcv Hx Past Med/Social Hx: Reviewed Nursing Past Med/Soc Hx Patient Social History Alcohol Use: Occasionally Uses Number of Drinks Today: HH Alcohol Beverage of Choice: Wine Recreational Drug Use: No Smoking Status: Never a Smoker 2nd Hand Smoke Exposure: No Physical Abuse Screen: Yes Sexual Abuse: No Recent Foreign Travel: No Contact w/other who traveled: No Recent Hopitalizations: No Recent Infectious Disease Expo: No Immunizations Up To Date Tetanus Booster (TDap): Unknown Date of Pneumonia Vaccine: Aug 18, 2013 Seasonal Allergies Seasonal Allergies: No Past Medical History Surgeries: Abdominal, Gallbladder, Orthopedic, Tonsillectomy Currently Using CPAP: No Currently Using BIPAP: No Cardiac: High Cholesterol, Hypertension Neurological: Headaches /Migraines, Neuropathy Reproductive: No Sexually Transmitted Disease: No Gastrointestinal: Gastroesophageal Reflux, Polyps, Hiatal Hernia Musculoskeletal: Arthritis Endocrine: Diabetes, Non-Insulin dep Loss of Vision: Denies Hearing Impairment: Denies Psychosocial: Anxiety Skin/Integumentary: Psoriasis History of Blood Disorders: No Adverse Reaction to Blood Rust: No Family History Reviewed Nursing Family Hx Congestive heart failure 19 MOTHER Family history: Arthritis 19 FATHER 19 MOTHER Family history: Cardiovascular disease 19 FATHER 19 MOTHER Family history: Diabetes mellitus 19 FATHER Family history: Glaucoma 19 MOTHER Family history: Hypertension 19 FATHER 19 MOTHER Family history: Osteoporosis 19 MOTHER Hearing loss 19 MOTHER Heart disease 19 FATHER 19 MOTHER Myocardial infarction 19 FATHER 19 MOTHER (DBL BYPASS) Stroke 19 MOTHER (MICRO STROKES) No Family History of: Abdominal aortic aneurysm Arenac's disease Alcoholism Aphasia Cancer Cancer of colon Cataract Chest pain Congenital heart disease Cystic fibrosis Dementia Dysphagia Family history: Allergy Family history: Alzheimer's disease Family history: Asthma Family history: Breast disease Family history: Coronary thrombosis Family history: Gastrointestinal disease Family history: Thyroid disorder Headache Hereditary disease History of - anemia History of - disorder History of - respiratory disease History of drug abuse Human immunodeficiency virus (HIV) seropositivity Hypercholesterolemia Infertile Kidney disease Malignant neoplasm of lung Parkinson's disease Prostate cancer Psychotic disorder Seizure disorder Tuberculosis Visual impairment Heart Disease, Diabetes, Hypertension Review of Systems Constitutional: see HPI, weight loss EENTM: no symptoms reported Respiratory: cough, dyspnea on exertion Cardiovascular: no symptoms reported Physical Exam Physical Exam Vital Signs Vital Signs - First Documented 12/04/17 12/04/17 12/04/17 02:30 02:36 04:20 Temp 96.5 Pulse 125 Resp 40 B/P (MAP) 172/106 (128) Pulse Ox 100 O2 Delivery NIV/Bilevel O2 Flow Rate 40.00 FiO2 32 Capillary Refill : Less Than 3 Seconds Height, Weight, BMI Height: 5'10.00" Weight: 260lbs. 6.0oz. 118.305047ma; 37.4 BMI Method:Stated Results Results/Procedures Labs Laboratory Tests 12/04/17 02:30 Patient resulted labs reviewed. Clinical Quality Measures DVT/VTE Risk/Contraindication: Risk Factor Score Per Nursin RFS Level Per Nursing on Admit: 2=Moderate SAMSON TREJO MEDICAL STUDENT 12/04/17 1524: History of Present Illness HPI/Chief Complaint CC: SOB Patient is a 57 yo WM who presented to the ED last night, 12/03, with SOB via EMS. On arrival found to have Sp02 of 80%, elevated BS of 500s and lactic acidosis. Initially began to feel ill on 11/29 developed a cough. Last night began to feel chills, wheezing, weak and dyspnic as well. Denies experiencing CP or fever. He has a hx of diabetes but has not been taking medications due to recent unemployment. Unclear how controlled his DM has been previously, described experiencing polydipsia and polyuria for some time. Has numbness in both feet which he attributes to a previous traumatic injury, states he has preserved sensation in both legs. Source: patient Exam Limitations: no limitations Time Seen by a Provider: 09:30 Past Rbfoikl-Sgyiec-Ycxznx Hx Past Med/Social Hx: Reviewed Nursing Past Med/Soc Hx Patient Social History Employed/Student: unemployed Past Medical History Surgeries: Abdominal, Gallbladder, Orthopedic, Tonsillectomy Cardiac: High Cholesterol, Hypertension Neurological: Neuropathy Gastrointestinal: Gastroesophageal Reflux, Polyps, Hiatal Hernia Endocrine: Diabetes, Non-Insulin dep Hearing Impairment: Denies Family History Reviewed Nursing Family Hx Congestive heart failure 19 MOTHER Family history: Arthritis 19 FATHER 19 MOTHER Family history: Cardiovascular disease 19 FATHER 19 MOTHER Family history: Diabetes mellitus 19 FATHER Family history: Glaucoma 19 MOTHER Family history: Hypertension 19 FATHER 19 MOTHER Family history: Osteoporosis 19 MOTHER Hearing loss 19 MOTHER Heart disease 19 FATHER 19 MOTHER Myocardial infarction 19 FATHER 19 MOTHER (DBL BYPASS) Stroke 19 MOTHER (MICRO STROKES) No Family History of: Abdominal aortic aneurysm Arenac's disease Alcoholism Aphasia Cancer Cancer of colon Cataract Chest pain Congenital heart disease Cystic fibrosis Dementia Dysphagia Family history: Allergy Family history: Alzheimer's disease Family history: Asthma Family history: Breast disease Family history: Coronary thrombosis Family history: Gastrointestinal disease Family history: Thyroid disorder Headache Hereditary disease History of - anemia History of - disorder History of - respiratory disease History of drug abuse Human immunodeficiency virus (HIV) seropositivity Hypercholesterolemia Infertile Kidney disease Malignant neoplasm of lung Parkinson's disease Prostate cancer Psychotic disorder Seizure disorder Tuberculosis Visual impairment Heart Disease, Diabetes, Hypertension Review of Systems Constitutional: see HPI, chills; No fever; weight loss EENTM: other (Dry mouth) Respiratory: see HPI, cough, dyspnea on exertion Cardiovascular: No chest pain, No palpitations Gastrointestinal: No abdominal pain, No nausea, No vomiting Genitourinary: No dysuria; frequency Musculoskeletal: No muscle pain Psychiatric/Neurological: Paresthesia (both feet) All Other Systems Reviewed Negative Unless Noted: Yes Physical Exam Physical Exam General Appearance: No Apparent Distress, WD/WN HEENT: PERRL/EOMI, Other (Dry mucous membranes) Neck: Full Range of Motion, Normal Inspection, Non Tender, Supple, Carotid Bruit Respiratory: Chest Non Tender, Lungs Clear, Normal Breath Sounds, No Accessory Muscle Use, No Respiratory Distress Cardiovascular: Regular Rate, Rhythm, No Edema, No Gallop, No JVD, No Murmur, Normal Peripheral Pulses, Tachycardia Gastrointestinal: No Organomegaly, Non Tender, Soft Extremity: Normal Capillary Refill, Normal Inspection Neurologic/Psychiatric: Alert, Oriented x3, Normal Mood/Affect Skin: Normal Color, Warm/Dry Results Results/Procedures Imaging: Reviewed Imaging Report Imaging Date of Exam: 12/04/17 CHEST 1 VIEW, AP/PA ONLY INDICATION: Two-day history of shortness of air. TECHNIQUE: Single view chest 2:51 AM. CORRELATION STUDY: 06/06/2015 FINDINGS: Heart size enlarged. Vasculature is increased from prior study. Prominent interstitial markings favor a component of mild edema. IMPRESSION: 1. Cardiac enlargement with vascular congestion suggested, changed from prior study. Component of interstitial edema also present. 2. Additional superimposed infiltrate versus edema about the right lung base with additional areas of likely atelectasis versus less likely infiltrate in left mid lung field. Assessment/Plan Admission Diagnosis Admission Status: Inpatient Order (span 2 midnights) Diagnosis/Problems Diagnosis/Problems (1) Metabolic acidosis Assessment & Plan: 12/03: 3.3 12/04: 4.1 Likely due to hypoxemia and uncontrolled DM. Continue to monitor. (2) Right lower lobe pneumonia Status: Acute Assessment & Plan: ABGs nl Fluids Abx: Ceftriaxone & Azithromycin Qualifiers: Pneumonia type: due to unspecified organism Qualified Codes: J18.1 - Lobar pneumonia, unspecified organism (3) Uncontrolled diabetes mellitus Status: Acute Assessment & Plan: Start insulin therapy Novolog/Humulin Fluids Educate Plan to refer to [facility] for continued medical f/u Qualifiers: Diabetes mellitus type: type 2 Glycemic state: with hyperglycemia Qualified Codes: E11.65 - Type 2 diabetes mellitus with hyperglycemia (4) Cardiomegaly Assessment & Plan: Revealed on CXR BNP 200s Consult cardiology Prior echo in 14': EF 60%, suspect diastolic dysfxn Order repeat echo EDWARD PAUL MD Dec 04, 2017 14:10 SAMSON TREJO MEDICAL STUDENT Dec 04, 2017 15:24
[2017-12-04 14:54] LABS: CHOLESTEROL 178 MG/DL (< 200); HDL CHOLESTEROL 37 MG/DL (40-60); TRIGLYCERIDES 117 MG/DL (<150); VLDL CHOLESTEROL 23 MG/DL (5-40)
[2017-12-04] MEDS: inSUlin ASPART (NovoLOG) 1 UNIT/0.01 ML (CHARGE PER UNIT) SQ SCH ×3 (15:55→22:05)
[2017-12-04] MEDS ORDERED: amLODIPine 10 MG (NORVASC) TAB PO ONE (21:30)
[2017-12-04] MEDS ORDERED: amLODIPine 10 MG (NORVASC) TAB ONE (21:59)
[2017-12-05] VITALS: BP 142/78
[2017-12-05] MEDS ORDERED: ACETAMINOPHEN 500 MG TAB (TYLENOL) ONE (00:44)
[2017-12-05] MEDS: ACETAMINOPHEN 500 MG TAB (TYLENOL) PO PRN ×3 (00:56→15:20)
[2017-12-05] MEDS: RT-ALBUTEROL/IPRATROPIUM 3 ML (DUONEB) VIAL INH SCH ×6 (01:32→22:21)
[2017-12-05 04:00] VITALS: BP 130/65
[2017-12-05] MEDS ORDERED: cefTRIAXone 1 GM/NS 50 ML IVPB IV SCH ×4 (04:00→05:00)
[2017-12-05 04:04] LABS: BASOPHILS % (AUTO) 0 % (0-10); EOSINOPHILS # (AUTO) 0.2 10^3/uL (0.0-0.3); EOSINOPHILS % (AUTO) 2 % (0-10); HEMATOCRIT 36 % (40-54); HEMOGLOBIN 12.2 G/DL (13.3-17.7); LYMPHOCYTES # (AUTO) 1.5 X 10^3 (1.0-4.0); LYMPHOCYTES % (AUTO) 15 % (12-44); MEAN CORPUSCULAR HEMOGLOBIN 30 PG (25-34); MEAN CORPUSCULAR HGB CONC 34 G/DL (32-36); MEAN CORPUSCULAR VOLUME 88 FL (80-99); MEAN PLATELET VOLUME 9.7 FL (7.4-10.4); MONOCYTES # (AUTO) 0.7 X 10^3 (0.0-1.0); MONOCYTES % (AUTO) 8 % (0-12); NEUTROPHILS # (AUTO) 7.1 X 10^3 (1.8-7.8); NEUTROPHILS % (AUTO) 75 % (42-75); PLATELET COUNT 247 10^3/uL (130-400); RED BLOOD COUNT 4.04 10^6/uL (4.35-5.85); RED CELL DISTRIBUTION WIDTH 13.5 % (10.0-14.5); WHITE BLOOD COUNT 9.5 10^3/uL (4.3-11.0)
[2017-12-05] MEDS: NS IV 1000 ML 1,000 ML IV SCH (04:07)
[2017-12-05 04:23] LABS: ALANINE AMINOTRANSFERASE 17 U/L (0-55); ALBUMIN 3.1 GM/DL (3.2-4.5); ALKALINE PHOSPHATASE 58 U/L (40-136); BILIRUBIN,TOTAL 0.4 MG/DL (0.1-1.0); BUN/CREATININE RATIO 6; CALCIUM 8.3 MG/DL (8.5-10.1); CARBON DIOXIDE 17 MMOL/L (21-32); CHLORIDE 106 MMOL/L (98-107); CREATININE SERUM 0.82 MG/DL (0.60-1.30); GFR ESTIMATED > 60; GLUCOSE 209 MG/DL (70-105); MAGNESIUM 1.7 MG/DL (1.8-2.4); PHOSPHORUS 2.7 MG/DL (2.3-4.7); SODIUM 137 MMOL/L (135-145); TOTAL PROTEIN 6.1 GM/DL (6.4-8.2)
[2017-12-05] MEDS: AZITHROMYCIN 500 MG/NS 250 ML IVPB IV SCH ×2 (05:25)
[2017-12-05] MEDS: inSUlin ASPART (NovoLOG) 1 UNIT/0.01 ML (CHARGE PER UNIT) SQ SCH ×4 (05:31→22:25)
--- NOTE | 2017-12-05 06:02 | Pulmonary Progress Note ---
Subjective Time Seen by a Provider: 06:24 Subjective/Events-last exam PT is very anxious and states he woke up SOB. Sepsis Event Evaluation Height, Weight, BMI Height: 5'10.00" Weight: 260lbs. 6.0oz. 118.780102nn; 37.4 BMI Method:Stated Focused Exam Lactate Level 12/04/17 02:30: Lactic Acid Level 3.32*H 12/04/17 05:10: Lactic Acid Level 4.19*H Exam Exam Vital Signs Date Time Temp Pulse Resp B/P (MAP) Pulse Ox O2 Delivery O2 Flow Rate FiO2 12/05/17 04:00 98.4 109 20 130/65 (86) 94 Room Air 12/05/17 04:00 95 Room Air 12/05/17 01:32 Room Air 12/05/17 01:00 115 12/05/17 00:00 97.9 107 18 142/78 (99) 95 Room Air 12/05/17 00:00 95 Room Air 12/04/17 22:49 94 Room Air 12/04/17 22:00 104 156/82 (106) 12/04/17 21:00 94 Room Air 12/04/17 20:00 98.1 12/04/17 20:00 109 173/104 (127) Room Air 12/04/17 20:00 95 Room Air 12/04/17 19:00 103 12/04/17 18:41 96 Room Air 12/04/17 18:29 98 159/96 (117) 97 Room Air 12/04/17 18:01 131 158/93 (114) 97 Room Air 12/04/17 14:43 97 Room Air 12/04/17 13:00 110 12/04/17 12:00 129 158/93 (114) 96 Room Air 12/04/17 10:50 98 Room Air 12/04/17 07:00 121 12/04/17 06:45 97 Nasal Cannula 1.00 I & O 12/05/17 07:00 Intake Total 1150 ml Output Total 2000 ml Balance -850 ml Height & Weight Height: 5'10.00" Weight: 260lbs. 6.0oz. 118.901879bm; 37.4 BMI Method:Stated General Appearance: No Apparent Distress, WD/WN, Anxious HEENT: PERRL/EOMI, Other (Dry mucous membranes) Neck: Full Range of Motion, Normal Inspection, Non Tender, Supple, Carotid Bruit Respiratory: Chest Non Tender, Lungs Clear, Normal Breath Sounds, No Accessory Muscle Use, No Respiratory Distress Cardiovascular: Regular Rate, Rhythm, No Edema, No Gallop, No JVD, No Murmur, Normal Peripheral Pulses, Tachycardia Capillary Refill: Less Than 3 Seconds Extremity: Normal Capillary Refill, Normal Inspection Neurologic/Psychiatric: Alert, Oriented x3, Normal Mood/Affect Skin: Normal Color, Warm/Dry Lymphatic: No Adenopathy Results Lab Laboratory Tests 12/04/17 02:30 12/05/17 03:52 Assessment/Plan Assessment/Plan Hypoxia with respiratory distress -BiPAP PRN -CHeck ABG RLL infiltrate on CXR- DOUBT PNA -Pt has no leukocytosis and no fevers -D/C abx -Hep lock IVF and recheck BNP -Echocardiogram is pending OBesity with probable SONIA -PT is waking up gasping for air -Will do out patient PSG Hypokalemia, hypomagnesium -Replace Metabolic lactic acidosis with dehydration -IVF possible pulmonary edema vs interstitial pneumonia -Check echocardiogram GIULIANA WARNER DO Dec 05, 2017 6:02 am
[2017-12-05] MEDS ORDERED: KCL 10 MEQ TAB (MICRO K) PO ONE (06:15)
[2017-12-05] MEDS: POTASSIUM CL 10MEQ/50ML IVPB 50 ML IV SCH ×4 (06:37→09:47)
[2017-12-05] MEDS: MAGNESIUM 1 GM/100 ML IVPB 100 ML IV SCH ×2 (06:37→07:47)
--- NOTE | 2017-12-05 07:29 | Diagnostic Imaging Report ---
INDICATION: Pneumonia. Comparison made with prior examination 12/04/2017. FINDINGS: There is cardiomegaly. There is mild venous congestion. There is some patchy right basilar atelectasis and/or pneumonitis. There is no pleural effusion or pneumothorax. The mediastinum is unremarkable. IMPRESSION: Patchy right basilar atelectasis and/or pneumonitis which appear slightly improved when compared to prior examination. Cardiomegaly and mild central pulmonary venous congestion. Dictated by: Dictated on workstation # [id number]
[2017-12-05] MEDS ORDERED: amLODIPine 10 MG (NORVASC) TAB PO SCH (09:00)
[2017-12-05 11:02] VITALS: BP 158/103
--- NOTE | 2017-12-05 11:31 | Progress Note-Hospitalist ---
Subjective HPI/CC On Admission Date Seen by Provider: Dec 05, 2017 Time Seen by Provider: 10:15 CC: SOB Patient is a 57 yo WM who presented to the ED last night, 12/03, with SOB via EMS. On arrival found to have Sp02 of 80%, elevated BS of 500s and lactic acidosis. Initially began to feel ill on 11/29 developed a cough. Last night began to feel chills, wheezing, weak and dyspnic as well. Denies experiencing CP or fever. He has a hx of diabetes but has not been taking medications due to recent unemployment. Unclear how controlled his DM has been previously, described experiencing polydipsia and polyuria for some time. Has numbness in both feet which he attributes to a previous traumatic injury, states he has preserved sensation in both legs. Subjective/Events-last exam Patient reports he has not seen Dr. Sam for one year since he lost his job at [employer] Has not been able to afford any of his medications Hemoglobin A1c elevated Consistently running 200s on sliding scale insulin since admission Uses BiPAP as needed since admission Antibiotics DC'd today since no pneumonia Getting ready for discharge likely tomorrow Advancing diet today Review of Systems General: Malaise Pulmonary: Dyspnea Focused Exam Lactate Level 12/04/17 02:30: Lactic Acid Level 3.32*H 12/04/17 05:10: Lactic Acid Level 4.19*H 12/05/17 06:40: Lactic Acid Level 1.60 Objective Exam Vital Signs Vital Signs Date Time Temp Pulse Resp B/P (MAP) Pulse Ox O2 Delivery O2 Flow Rate FiO2 12/05/17 11:02 112 27 93 30.00 12/05/17 09:00 Room Air 12/05/17 08:59 97.9 12/05/17 04:00 130/65 (86) 12/04/17 04:20 32 Capillary Refill : Less Than 3 Seconds General Appearance: No Apparent Distress, WD/WN, Chronically ill, Obese Respiratory: Chest Non Tender, Lungs Clear, Normal Breath Sounds, No Accessory Muscle Use, No Respiratory Distress Cardiovascular: Regular Rate, Rhythm, No Edema, No Gallop, No JVD, No Murmur, Normal Peripheral Pulses Neurologic/Psychiatric: Alert, Oriented x3, No Motor/Sensory Deficits, Normal Mood/Affect Results/Procedures Lab Laboratory Tests 12/05/17 03:52 Patient resulted labs reviewed. Imaging: Reviewed Imaging Report Assessment/Plan Assessment and Plan Assess & Plan/Chief Complaint Assessment: Dyspnea maintained on BiPAP with improved status Noncompliance Diabetes mellitus [id number] Hypertension Obesity Plan: Maintain respiratory support and appreciate Dr. Soto's expertise Begin glyburide 2.5 MG daily Monitor closely Advanced diet Diagnosis/Problems Diagnosis/Problems (1) Metabolic acidosis Status: Resolved (2) Cardiomegaly Status: Acute (3) Uncontrolled diabetes mellitus Status: Chronic Qualifiers: Diabetes mellitus type: type 2 Glycemic state: with hyperglycemia Qualified Codes: E11.65 - Type 2 diabetes mellitus with hyperglycemia (4) Hypertension Status: Chronic Qualifiers: Hypertension type: essential hypertension Qualified Codes: I10 - Essential (primary) hypertension Clinical Quality Measures DVT/VTE Risk/Contraindication: Risk Factor Score Per Nursin RFS Level Per Nursing on Admit: 2=Moderate DEIRDRE DIANA DO Dec 05, 2017 11:31
[2017-12-05] MEDS ORDERED: glyBURIDE 2.5 MG (MICRONASE) TAB PO NR (12:15)
--- NOTE | 2017-12-05 14:17 | Physical Therapy Evaluation ---
PT Evaluation-General Medical Diagnosis Admission Date Dec 04, 2017 at 03:44 Medical Diagnosis: weakness Onset Date: Dec 04, 2017 Therapy Diagnosis Therapy Diagnosis: impaired endurance Height/Weight Height (Feet): 5 Height (Inches): 10.00 Weight (Pounds): 261 Weight (Ounces): 2.0 Precautions Precautions/Isolations: Contact Isolation Referral Physician: Shereen Grey DO Reason for Referral: Evaluation/Treatment Medical History Additional Medical History Past Medical History Surgeries: Abdominal, Gallbladder, Orthopedic, Tonsillectomy Currently Using CPAP: No Currently Using BIPAP: No Cardiac: High Cholesterol, Hypertension Neurological: Headaches /Migraines, Neuropathy Reproductive: No Sexually Transmitted Disease: No Gastrointestinal: Gastroesophageal Reflux, Polyps, Hiatal Hernia Musculoskeletal: Arthritis Endocrine: Diabetes, Non-Insulin dep Loss of Vision: Denies Hearing Impairment: Denies Psychosocial: Anxiety Skin/Integumentary: Psoriasis Reviewed History: Yes Social History Home: Single Level Current Living Status: Alone Entry Into Home: Stairs With Railing PT Steps Into Home: 4 Prior/Core FIM Prior Level of Function Functional [place] Measure 0=Not Assessed/NA 4=Minimal Assistance 1=Total Assistance 5=Supervision or Setup 2=Maximal Assistance 6=Modified [place] 3=Moderate Assistance 7=Complete IndependenceIRFPAI Quality Coding Scale 6 Independent with activity with or without an assistive device 5 Patient requires set up or clean up by helper. Patient completes activity by themselves 4 Supervision or touching assist (CGA). Melrude provide cues , steadying assist 3 The helper provides less than half the effort to complete the activity 2 The helper provides more than half the effort to complete the activity 1 Dependent. The helper does all the effort to complete an activity 7 Patient refused to complete or attempt activity 9 The patient did not perform the activity before the current illness or injury 88 Not attempted due to Medical conditions or safety concerns Bed Mobility: 7 Transfers (B,C,W/C) (FIM): 7 Gait: 7 PT Evaluation-Current Subjective Patient in bed pre tx, agrees to PT, has no complaints of pain. Patient states he has no pain but has a tightness in his chest (light, not intense) and that the nurse is aware of it. O2 97% in bed. Pt/Family Goals "to go home" Objective Patient Orientation: Normal For Age Attachments: Oxygen 2L of O2 nasal canula ROM/Strength ROM Lower Extremities WNL Strength Lower Extremities 5/5 gross bilateral lower extremities except for hip flexion which is 3+/5 Integumentary/Posture Integumentary pitting edema both lower extremities Neuromuscular (Tone, Coordination, Reflexes) NT Sensory Vision: Wears Glasses Hearing: Functional Sensation Right Lower Extremit: Impaired Sensation Left Lower Extremity: Impaired Sensation Lower Extremities Patient has numbness in both feet. Transfers Functional Furn[place] Measure 0=Not Assessed/NA 4=Minimal Assistance 1=Total Assistance 5=Supervision or Setup 2=Maximal Assistance 6=Modified [place] 3=Moderate Assistance 7=Complete [place] Transfers (B, C, W/C) (FIM): 7 Scootin Rollin Supine to/from Sit: 7 Sit to/from Stand: 7 no unsteadiness Gait Mode of Locomotion: Walk Anticipated Mode of Locomotion: Walk Gait (FIM): 7 Distance: 200' Gait Assistive Device: None Comments/Gait Description Patient ambulated 200' without an assistive device with independence. No unsteadiness, patient ambulated without O2 and his O2 sat was 95% when he got back to bed. Balance Sitting Static: Normal Sitting Dynamic: Normal Standing Static: Normal Standing Dynamic: Normal Assessment/Needs Patient is independent with mobility. He is confident that he will be able to take care of himself mobility-valadez at discharge. Rehab Potential: Good PT Plan Problem List Problem List: Activity Tolerance Treatment/Plan Treatment Plan: Discontinue PT Treatment Plan: Other Treatment Duration: Dec 05, 2017 Frequency: Estimated Hrs Per Day: Other Patient and/or Family Agrees t: Yes Safety Risks/Education Patient Education: Gait Training, Transfer Techniques, Correct Positioning, Safety Issues Teaching Recipient: Patient Teaching Methods: Demonstration, Discussion Response to Teaching: Verbalize Understanding, Return Demonstration Discharge Recommendations Plan DC Time/GCodes Time In: 1350 Time Out: 1405 Total Billed Treatment Time: 15 Total Billed Treatment 1 visit EVL 15' BARB CARLISLE PT Dec 05, 2017 14:17
--- NOTE | 2017-12-05 16:47 | Consultation-Cardiology ---
HPI-Cardiology Cardiology Consultation Date of Consultation 12/05/17 Date of Admission Time Seen by Provider: 16:41 Indication: Shortness of breath HPI 57 years old gentleman with history of hypertension, PVCs, was in his usual state of health until yesterday when he started having increasing shortness of breath, became worse to the point that he came into the emergency room for evaluation. He denied any chest pain until today, had some chest discomfort. No palpitation. Had history of PVCs. No syncope or near syncopal episodes. Home Medications & Allergies Allergies: Coded Allergies: egg (Unverified Allergy, Mild, 02/05/14) EGG WHITES FROM UNCODED ALLERGIES Insulins (Unverified Allergy, Unknown, 06/06/15) Milk Containing Products (Unverified Allergy, Unknown, gas/rash, 07/19/13) Penicillins (Unverified Allergy, Unknown, 07/19/13) Sulfa (Sulfonamide Antibiotics) (Unverified Allergy, Unknown, 07/19/13) lidocaine (Verified Allergy, Unknown, 01/06/16) milk (Unverified Allergy, Unknown, gas/rash, 07/19/13) peanut (Unverified Allergy, Unknown, air closes off, 07/19/13) strawberry (Unverified Allergy, Unknown, airway closes off, 07/19/13) codeine (Unverified Adverse Reaction, Mild, NAUSEA, 02/03/14) Uncoded Allergies: ENVIRONMENTAL (Allergy, Unknown, 07/19/13) Home Medication List Reviewed: Yes [id number] Hx Patient Social History Employed/Student: unemployed Alcohol Use: Occasionally Uses Recreational Drug Use: No Smoking Status: Never a Smoker 2nd Hand Smoke Exposure: No Recent Foreign Travel: No Recent Infectious Disease Expo: No Recent Hopitalizations: No Physical Abuse Screen: Yes Sexual Abuse: No Immunizations Up To Date Tetanus Booster (TDap): Unknown Date of Pneumonia Vaccine: Aug 18, 2013 Past Medical History Past medical history as described below Family Medical History Significant Family History: Heart Disease, Diabetes, Hypertension Family History: Congestive heart failure 19 MOTHER Family history: Arthritis 19 FATHER 19 MOTHER Family history: Cardiovascular disease 19 FATHER 19 MOTHER Family history: Diabetes mellitus 19 FATHER Family history: Glaucoma 19 MOTHER Family history: Hypertension 19 FATHER 19 MOTHER Family history: Osteoporosis 19 MOTHER Hearing loss 19 MOTHER Heart disease 19 FATHER 19 MOTHER Myocardial infarction 19 FATHER 19 MOTHER (DBL BYPASS) Stroke 19 MOTHER (MICRO STROKES) No Family History of: Abdominal aortic aneurysm Yuba's disease Alcoholism Aphasia Cancer Cancer of colon Cataract Chest pain Congenital heart disease Cystic fibrosis Dementia Dysphagia Family history: Allergy Family history: Alzheimer's disease Family history: Asthma Family history: Breast disease Family history: Coronary thrombosis Family history: Gastrointestinal disease Family history: Thyroid disorder Headache Hereditary disease History of - anemia History of - disorder History of - respiratory disease History of drug abuse Human immunodeficiency virus (HIV) seropositivity Hypercholesterolemia Infertile Kidney disease Malignant neoplasm of lung Parkinson's disease Prostate cancer Psychotic disorder Seizure disorder Tuberculosis Visual impairment Review of Systems Constitutional: see HPI, malaise, weakness EENTM: see HPI Respiratory: see HPI, cough, dyspnea on exertion; No hemoptysis; orthopnea; No phlegm; short of breath; No stridor, No wheezing, No other Cardiovascular: see HPI, chest pain; No edema, No Hx of Intervention, No palpitations, No syncope, No vascular heart diseas, No other Gastrointestinal: no symptoms reported, see HPI Genitourinary: no symptoms reported, see HPI Musculoskeletal: no symptoms reported, see HPI Skin: no symptoms reported, see HPI Psychiatric/Neurological: No Symptoms Reported, See HPI Reviewed Test Results Reviewed Test Results Lab Laboratory Tests Test 12/04/17 18:25 12/04/17 21:59 12/05/17 03:52 12/05/17 05:28 Range/Units Glucometer 244 H 203 H 224 H 70-110 MG/DL White Blood Count 9.5 4.3-11.0 10^3/uL Red Blood Count 4.04 L 4.35-5.85 10^6/uL Hemoglobin 12.2 #L 13.3-17.7 G/DL Hematocrit 36 L 40-54 % Mean Corpuscular Volume 88 80-99 FL Mean Corpuscular Hemoglobin 30 25-34 PG Mean Corpuscular Hemoglobin Concent 34 32-36 G/DL Red Cell Distribution Width 13.5 10.0-14.5 % Platelet Count 247 130-400 10^3/uL Mean Platelet Volume 9.7 7.4-10.4 FL Neutrophils (%) (Auto) 75 42-75 % Lymphocytes (%) (Auto) 15 12-44 % Monocytes (%) (Auto) 8 0-12 % Eosinophils (%) (Auto) 2 0-10 % Basophils (%) (Auto) 0 0-10 % Neutrophils # (Auto) 7.1 1.8-7.8 X 10^3 Lymphocytes # (Auto) 1.5 1.0-4.0 X 10^3 Monocytes # (Auto) 0.7 0.0-1.0 X 10^3 Eosinophils # (Auto) 0.2 0.0-0.3 10^3/uL Basophils # (Auto) 0.0 0.0-0.1 10^3/uL Sodium Level 137 135-145 MMOL/L Potassium Level 3.0 L 3.6-5.0 MMOL/L Chloride Level 106 98-107 MMOL/L Carbon Dioxide Level 17 L 21-32 MMOL/L Anion Gap 14 5-14 MMOL/L Blood Urea Nitrogen 5 L 7-18 MG/DL Creatinine 0.82 0.60-1.30 MG/DL Estimat Glomerular Filtration Rate > 60 BUN/Creatinine Ratio 6 Glucose Level 209 H 70-105 MG/DL Calcium Level 8.3 L 8.5-10.1 MG/DL Corrected Calcium 9.0 8.5-10.1 MG/DL Phosphorus Level 2.7 2.3-4.7 MG/DL Magnesium Level 1.7 L 1.8-2.4 MG/DL Total Bilirubin 0.4 0.1-1.0 MG/DL Aspartate Amino Transf (AST/SGOT) 25 5-34 U/L Alanine Aminotransferase (ALT/SGPT) 17 0-55 U/L Alkaline Phosphatase 58 40-136 U/L Total Protein 6.1 L 6.4-8.2 GM/DL Albumin 3.1 L 3.2-4.5 GM/DL Test 12/05/17 06:40 12/05/17 11:21 Range/Units Lactic Acid Level 1.60 0.50-2.00 MMOL/L B-Type Natriuretic Peptide 110.0 H <100.0 PG/ML Glucometer 287 H 70-110 MG/DL Physical Exam Vital Signs Vital Signs - First Documented 12/04/17 12/04/17 12/04/17 02:30 02:36 04:20 Temp 96.5 Pulse 125 Resp 40 B/P (MAP) 172/106 (128) Pulse Ox 100 O2 Delivery NIV/Bilevel O2 Flow Rate 40.00 FiO2 32 Capillary Refill : Less Than 3 Seconds Height, Weight, BMI Height: 5'10.00" Weight: 261lbs. 2.0oz. 118.799738rq; 37.4 BMI Method:Stated General Appearance: No Apparent Distress, WD/WN Eyes: Bilateral Eye Normal Inspection, Bilateral Eye PERRL, Bilateral Eye EOMI HEENT: PERRL/EOMI, TMs Normal, Normal ENT Inspection, Pharynx Normal Neck: Full Range of Motion, Normal Inspection, Non Tender, Supple, Carotid Bruit Respiratory: Chest Non Tender, Lungs Clear, Normal Breath Sounds, No Accessory Muscle Use, No Respiratory Distress Cardiovascular: Regular Rate, Rhythm, No Edema, No Gallop, No JVD, No Murmur, Normal Peripheral Pulses Gastrointestinal: Normal Bowel Sounds, No Organomegaly, No Pulsatile Mass, Non Tender, Soft Back: Normal Inspection, No CVA Tenderness, No Vertebral Tenderness Extremity: Normal Capillary Refill, Normal Inspection, Normal Range of Motion, Non Tender, No Calf Tenderness, Pedal Edema (Mild) Neurologic/Psychiatric: Alert, Oriented x3, No Motor/Sensory Deficits, Normal Mood/Affect Skin: Normal Color, Warm/Dry Lymphatic: No Adenopathy A/P-Cardiology Admission Diagnosis Shortness of breath Chest pain nonspecific etiology Sinus tachycardia Peripheral edema Assessment/Plan Shortness of breath, peripheral edema, reporting improvement. Questionable pulmonary edema versus early pneumonia. Managed by primary care team. Chest pain nonspecific etiology, atypical in presentation, started today, did not have any chest pain previously. Continue to monitor Sinus tachycardia, still dyspneic. Receiving IV fluid, I'll start her on beta blockers and monitor tolerance and response Lactic acidosis, improving, managed by primary care team Diabetes mellitus, poorly controlled, educated about compliance with medication , managed by primary care team History of frequent premature ventricular contractions. Possible underlying sleep apnea. Followed and managed by Dr. Soto BMI 37, obesity, educated on weight loss. Clinical Quality Measures DVT/VTE Risk/Contraindication: Risk Factor Score Per Nursin RFS Level Per Nursing on Admit: 2=Moderate CROW KNIGHT MD Dec 05, 2017 16:47
[2017-12-05 17:57] VITALS: BP 145/88
[2017-12-05 20:00] VITALS: BP 146/90
[2017-12-06] VITALS: BP 146/80
[2017-12-06] MEDS: ACETAMINOPHEN 500 MG TAB (TYLENOL) PO PRN ×2 (00:37→08:14)
[2017-12-06] MEDS: RT-ALBUTEROL/IPRATROPIUM 3 ML (DUONEB) VIAL INH SCH ×3 (02:40→09:47)
[2017-12-06 03:59] LABS: BASOPHILS % (AUTO) 0 % (0-10); EOSINOPHILS # (AUTO) 0.2 10^3/uL (0.0-0.3); EOSINOPHILS % (AUTO) 2 % (0-10); HEMATOCRIT 36 % (40-54); HEMOGLOBIN 12.3 G/DL (13.3-17.7); LYMPHOCYTES # (AUTO) 1.4 X 10^3 (1.0-4.0); LYMPHOCYTES % (AUTO) 17 % (12-44); MEAN CORPUSCULAR HEMOGLOBIN 31 PG (25-34); MEAN CORPUSCULAR HGB CONC 34 G/DL (32-36); MEAN CORPUSCULAR VOLUME 89 FL (80-99); MEAN PLATELET VOLUME 9.9 FL (7.4-10.4); MONOCYTES # (AUTO) 0.7 X 10^3 (0.0-1.0); MONOCYTES % (AUTO) 8 % (0-12); NEUTROPHILS # (AUTO) 6.2 X 10^3 (1.8-7.8); NEUTROPHILS % (AUTO) 73 % (42-75); PLATELET COUNT 257 10^3/uL (130-400); RED BLOOD COUNT 4.03 10^6/uL (4.35-5.85); RED CELL DISTRIBUTION WIDTH 13.8 % (10.0-14.5); WHITE BLOOD COUNT 8.5 10^3/uL (4.3-11.0)
[2017-12-06 04:21] LABS: BUN/CREATININE RATIO 6; CALCIUM 8.6 MG/DL (8.5-10.1); CARBON DIOXIDE 20 MMOL/L (21-32); CHLORIDE 107 MMOL/L (98-107); CREATININE SERUM 0.78 MG/DL (0.60-1.30); GFR ESTIMATED > 60; GLUCOSE 119 MG/DL (70-105); MAGNESIUM 2.2 MG/DL (1.8-2.4); PHOSPHORUS 2.9 MG/DL (2.3-4.7); POTASSIUM 3.3 MMOL/L (3.6-5.0); SODIUM 138 MMOL/L (135-145)
--- NOTE | 2017-12-06 05:12 | Pulmonary Progress Note ---
Subjective Time Seen by a Provider: 05:38 Subjective/Events-last exam PT had episode yesterday afternoon where he became increasingly dyspneic and had to be placed on Bipap. I was not notified during this event. Sepsis Event Evaluation Height, Weight, BMI Height: 5'10.00" Weight: 261lbs. 2.0oz. 118.592823iu; 37.4 BMI Method:Stated Focused Exam Lactate Level 12/04/17 02:30: Lactic Acid Level 3.32*H 12/04/17 05:10: Lactic Acid Level 4.19*H 12/05/17 06:40: Lactic Acid Level 1.60 Exam Exam Vital Signs Date Time Temp Pulse Resp B/P (MAP) Pulse Ox O2 Delivery O2 Flow Rate FiO2 12/06/17 02:40 92 Room Air 12/06/17 01:00 106 12/06/17 00:00 104 146/80 (102) 93 Room Air 12/06/17 00:00 Room Air 12/05/17 22:21 92 Room Air 12/05/17 21:00 Room Air 12/05/17 20:00 100 146/90 (108) 92 12/05/17 20:00 Room Air 12/05/17 19:04 94 Room Air 12/05/17 19:00 102 12/05/17 17:57 98.4 109 20 145/88 (107) 94 Room Air 12/05/17 16:00 95 Room Air 12/05/17 13:48 97 Nasal Cannula 2.50 12/05/17 13:00 102 12/05/17 12:21 97.5 12/05/17 12:00 95 Room Air 12/05/17 11:02 112 27 93 30.00 12/05/17 09:00 94 Room Air 12/05/17 08:59 97.9 12/05/17 08:00 95 Room Air 12/05/17 07:00 112 12/05/17 06:59 94 Room Air I & O 12/06/17 07:00 Intake Total 825 ml Balance 825 ml Height & Weight Height: 5'10.00" Weight: 261lbs. 2.0oz. 118.641205km; 37.4 BMI Method:Stated General Appearance: WD/WN, Anxious, Mild Distress HEENT: PERRL/EOMI, TMs Normal, Normal ENT Inspection, Pharynx Normal Neck: Full Range of Motion, Normal Inspection, Non Tender, Supple, Carotid Bruit Respiratory: Chest Non Tender, Lungs Clear, Normal Breath Sounds, No Accessory Muscle Use, No Respiratory Distress Cardiovascular: Regular Rate, Rhythm, No Edema, No Gallop, No JVD, No Murmur, Normal Peripheral Pulses Capillary Refill: Less Than 3 Seconds Extremity: Normal Capillary Refill, Normal Inspection, Normal Range of Motion, Non Tender, No Calf Tenderness, Pedal Edema (Mild) Neurologic/Psychiatric: Alert, Oriented x3, No Motor/Sensory Deficits, Normal Mood/Affect Skin: Normal Color, Warm/Dry Lymphatic: No Adenopathy Results Lab Laboratory Tests 12/05/17 03:52 12/06/17 03:25 Assessment/Plan Assessment/Plan Hypoxia with respiratory distress -BiPAP PRN -CHeck ABG -Will check CTA this AM Bilateral LE edema - L>R -CHeck bilateral dopplers RLL infiltrate on CXR- DOUBT PNA -Pt has no leukocytosis, no productive cough, and no fevers -D/C abx -Echocardiogram REVIEWED OBesity with probable SONIA -PT is waking up gasping for air -Will do out patient PSG Hypokalemia, -Replace Metabolic lactic acidosis with dehydration -- RESOLVED GIULIANA WARNER DO Dec 06, 2017 05:12
[2017-12-06] MEDS ORDERED: ENOXAPARIN 40 MG/0.4 ML (LOVENOX) SYR SC SCH (05:45)
[2017-12-06] MEDS: inSUlin ASPART (NovoLOG) 1 UNIT/0.01 ML (CHARGE PER UNIT) SQ SCH (05:53)
[2017-12-06 06:00] VITALS: BP 147/81
[2017-12-06] MEDS ORDERED: KCL 20 MEQ TAB (K-DUR) PO ONE (06:00)
[2017-12-06] MEDS ORDERED: glyBURIDE 2.5 MG (MICRONASE) TAB PO SCH (06:30)
--- NOTE | 2017-12-06 06:54 | Diagnostic Imaging Report ---
INDICATION: Lower respiratory infection. Portable chest 4:31 AM FINDINGS: Heart size and pulmonary vascularity are normal. Lungs are clear. There are no effusions or pneumothoraces. IMPRESSION: Negative chest. Dictated by: Dictated on workstation # [id number]
[2017-12-06] MEDS ORDERED: IOHEXOL 350 MG/ML 150 ML (OMNIPAQUE 350) VIAL IV ONE (07:30)
[2017-12-06] MEDS ORDERED: NS 250 ML (IVPB) BAG IV ONE (07:30)
[2017-12-06] MEDS ORDERED: RECEIVED CONTRAST (Hold Metformin) IV SCH (07:45)
[2017-12-06 08:00] VITALS: BP 141/96
--- NOTE | 2017-12-06 08:23 | Diagnostic Imaging Report ---
PROCEDURE: CT angiography of the chest with contrast. TECHNIQUE: Multiple contiguous axial images were obtained through the chest after uneventful bolus administration of intravenous contrast. 2D reconstructed CTA MIP acquisitions were also performed. INDICATION: Shortness of breath. No prior studies are available for comparison. Evaluation of the pulmonary arterial system was without evidence of thromboembolism. No filling defects are seen within central, lobar or segmental branches. The thoracic aorta is normal in caliber. No dissection is seen. No significant pericardial fluid is seen. There are small to moderate bilateral pleural effusions. No axillary lymphadenopathy is seen. There is fatty right paratracheal node measuring 18 mm. There are some slightly prominent lymph nodes in the haylee bilaterally. The largest node is left hilum measuring 22 mm x 12 mm. Parenchymal evaluation does show some dependent atelectasis in the lung bases. There is some generalized interstitial prominence which may be owing to mild congestion. A subpleural nodule superior segment of the right lower lobe is noted measuring 7 mm. The upper abdomen is unremarkable apart from a small cortical low density involving the upper pole of the left kidney, suggestive of a cyst. IMPRESSION: 1. No evidence of pulmonary embolism or thoracic aortic dissection. 2. Bilateral pleural effusions. There also is dependent atelectasis both bases as well as mild congestive changes. 3. 7 mm nonspecific right lower lobe subpleural nodule. Followup CT chest in 6 months could be performed to confirm stability. 4. Mild mediastinal and hilar lymphadenopathy, nonspecific and indeterminate. This could be reactive. Continued followup to confirm stability is recommended. Dictated by: Dictated on workstation # [id number]
--- NOTE | 2017-12-06 08:38 | Cardiology Progress Note ---
Subjective Date Seen by Provider: Dec 06, 2017 Time Seen by Provider: 08:35 Subjective/Events-last exam Patient is in bed, feeling better, had a good night, didn't require oxygen Review of Systems General: No Chills, No Night Sweats, No Fatigue, No Malaise, No Appetite, No Other HEENT: No Head Aches, No Visual Changes, No Eye Pain, No Ear Pain, No Dysphasia , No Sinus Congestion, No Post Nasal Drip, No Sore Throat, No Other Pulmonary: No Dyspnea, No Cough, No Pleuritic Chest Pain, No Other Cardiovascular: No: Chest Pain, Palpitations, Orthopnea, Paroxysmal Noc. Dyspnea, Edema, Lt Headedness, Other Focused Exam Lactate Level 12/04/17 02:30: Lactic Acid Level 3.32*H 12/04/17 05:10: Lactic Acid Level 4.19*H 12/05/17 06:40: Lactic Acid Level 1.60 Objective-Cardiology Exam Last Set of Vital Signs Vital Signs 12/04/17 12/05/17 12/05/17 12/06/17 12/06/17 04:20 13:48 17:57 06:00 06:26 Temp 98.4 Pulse 107 Resp 20 B/P (MAP) 147/81 (103) Pulse Ox 98 O2 Delivery Room Air O2 Flow Rate 2.50 FiO2 32 Capillary Refill : Less Than 3 Seconds I&O Intake and Output 12/06/17 00:00 Intake Total 1475 ml Balance 1475 ml Intake Oral 1475 ml # Voids 4 # Bowel Movements 1 General: Alert, Oriented X3, Cooperative HEENT: Atraumatic, PERRLA Neck: Supple, No JVD, No Thyromegaly Lungs: Clear to Auscultation, Normal Air Movement Heart: Regular Rate, Normal S1, Normal S2, No Murmurs Abdomen: Normal Bowel Sounds, Soft, No Tenderness, No Hepatosplenomegaly, No Masses Extremities: No Clubbing, No Cyanosis, No Edema, Normal Pulses, No Tenderness/ Swelling Skin: No Rashes, No Breakdown, No Significant Lesion Neuro: Normal Gait, Normal Speech, Strength at 5/5 X4 Ext, Normal Tone, Sensation Intact Psych/Mental Status: Mental Status NL, Mood NL Results Lab Laboratory Tests 12/06/17 03:25 A/P-Cardiology Admission Diagnosis Shortness of breath Chest pain nonspecific etiology Sinus tachycardia Peripheral edema Assessment/Plan Shortness of breath, peripheral edema, reporting improvement, ok for discharge and follow as an outpatient Bilateral pleural effusion, managed by Dr Soto Chest pain nonspecific etiology, atypical in presentation, started today, did not have any chest pain previously. Continue to monitor Sinus tachycardia, better, started on Toprol, monitor as an outpatient Lactic acidosis, better, managed by primary care team Hypokalemia, being replaced, continue to monitor Diabetes mellitus, poorly controlled, educated about compliance with medication , managed by primary care team History of frequent premature ventricular contractions. Possible underlying sleep apnea. Followed and managed by Dr. Soto BMI 37, obesity, educated on weight loss. Clinical Quality Measures DVT/VTE Risk/Contraindication: Risk Factor Score Per Nursin RFS Level Per Nursing on Admit: 2=Moderate CROW KNIGHT MD Dec 06, 2017 08:38
--- NOTE | 2017-12-06 10:57 | Discharge Summary-Hospitalist ---
Diagnosis/Chief Complaint Date of Admission Dec 04, 2017 at 03:44 Date of Discharge Discharge Date: Dec 06, 2017 Discharge Diagnosis (1) Metabolic acidosis Status: Resolved (2) Cardiomegaly Status: Acute (3) Uncontrolled diabetes mellitus Status: Chronic (4) Hypertension Status: Chronic Discharge Summary Discharge Physical Exam Allergies: Coded Allergies: egg (Unverified Allergy, Mild, 02/05/14) EGG WHITES FROM UNCODED ALLERGIES Insulins (Unverified Allergy, Unknown, 06/06/15) Milk Containing Products (Unverified Allergy, Unknown, gas/rash, 07/19/13) Penicillins (Unverified Allergy, Unknown, 07/19/13) Sulfa (Sulfonamide Antibiotics) (Unverified Allergy, Unknown, 07/19/13) lidocaine (Verified Allergy, Unknown, 01/06/16) milk (Unverified Allergy, Unknown, gas/rash, 07/19/13) peanut (Unverified Allergy, Unknown, air closes off, 07/19/13) strawberry (Unverified Allergy, Unknown, airway closes off, 07/19/13) codeine (Unverified Adverse Reaction, Mild, NAUSEA, 02/03/14) Uncoded Allergies: ENVIRONMENTAL (Allergy, Unknown, 07/19/13) Vitals & I&Os Vital Signs Date Time Temp Pulse Resp B/P (MAP) Pulse Ox O2 Delivery O2 Flow Rate FiO2 12/06/17 09:50 96 Room Air 12/06/17 08:00 98.0 12/06/17 07:00 107 12/06/17 06:00 147/81 (103) 12/05/17 17:57 20 12/05/17 13:48 2.50 12/04/17 04:20 32 General Appearance: No Apparent Distress, WD/WN, Chronically ill, Obese Respiratory: Chest Non Tender, Lungs Clear, Normal Breath Sounds, No Accessory Muscle Use, No Respiratory Distress Cardiovascular: Regular Rate, Rhythm, No Edema, No Gallop, No JVD, No Murmur, Normal Peripheral Pulses Neurologic/Psychiatric: Alert, Oriented x3, No Motor/Sensory Deficits, Normal Mood/Affect Hospital Course Hospital course: Patient was hospitalized due to cardiomegaly vascular congestion and respiratory insufficiency requiring noninvasive ventilator support with pulmonology consultation. Metabolic acidosis resolved with aggressive management. He was originally placed on antibiotics for pneumonia coverage but those were discontinued after ruled out pneumonia. Home oxygen evaluation did not show he needed supplementation at home. CT angiogram revealed no pulmonary emboli and no evidence of any significant lung mass. Dr. Soto was not convinced he had a COPD diagnosis and he will see him in 3 weeks and he definitely needs a sleep study. I attempted to give him medication at discharge but he told me that he could not take any medication unless it was not egg-based and explained in depth about egg-containing medication he has been intolerant to so we decided with all of those issues he would not be discharged on any new medicine and he would've close follow-up with Dr. Sam who understands all of his medication intolerances. Labs (last 24 hrs) Laboratory Tests 12/05/17 17:33: Glucometer 212H 12/05/17 20:08: Glucometer 102 12/06/17 03:25: White Blood Count 8.5, Red Blood Count 4.03L, Hemoglobin 12.3L, Hematocrit 36L, Mean Corpuscular Volume 89, Mean Corpuscular Hemoglobin 31, Mean Corpuscular Hemoglobin Concent 34, Red Cell Distribution Width 13.8, Platelet Count 257, Mean Platelet Volume 9.9, Neutrophils (%) (Auto) 73, Lymphocytes (%) (Auto) 17, Monocytes (%) (Auto) 8, Eosinophils (%) (Auto) 2, Basophils (%) (Auto) 0, Neutrophils # (Auto) 6.2, Lymphocytes # (Auto) 1.4, Monocytes # (Auto) 0.7, Eosinophils # (Auto) 0.2, Basophils # (Auto) 0.0, Sodium Level 138, Potassium Level 3.3L, Chloride Level 107, Carbon Dioxide Level 20L, Anion Gap 11, Blood Urea Nitrogen 5L, Creatinine 0.78, Estimat Glomerular Filtration Rate > 60, BUN/ Creatinine Ratio 6, Glucose Level 119H, Calcium Level 8.6, Phosphorus Level 2.9 , Magnesium Level 2.2 12/06/17 05:42: Glucometer 121H 12/06/17 08:36: Troponin I < 0.30 Microbiology 12/04/17 Blood Culture - Preliminary, Resulted No growth 12/04/17 Influenza Types A,B Antigen (ADELAIDE) - Final, Complete 12/04/17 Urine Culture - Final, Complete NO GROWTH Patient resulted labs reviewed. Pending Labs Laboratory Tests 12/06/17 03:25: White Blood Count 8.5, Red Blood Count 4.03, Hemoglobin 12.3, Hematocrit 36, Mean Corpuscular Volume 89, Mean Corpuscular Hemoglobin 31, Mean Corpuscular Hemoglobin Concent 34, Red Cell Distribution Width 13.8, Platelet Count 257, Mean Platelet Volume 9.9, Neutrophils (%) (Auto) 73, Lymphocytes (%) (Auto) 17, Monocytes (%) (Auto) 8, Eosinophils (%) (Auto) 2, Basophils (%) (Auto) 0, Neutrophils # (Auto) 6.2, Lymphocytes # (Auto) 1.4, Monocytes # (Auto) 0.7, Eosinophils # (Auto) 0.2, Basophils # (Auto) 0.0, Sodium Level 138, Potassium Level 3.3, Chloride Level 107, Carbon Dioxide Level 20, Anion Gap 11, Blood Urea Nitrogen 5, Creatinine 0.78, Estimat Glomerular Filtration Rate > 60, BUN/ Creatinine Ratio 6, Glucose Level 119, Calcium Level 8.6, Phosphorus Level 2.9, Magnesium Level 2.2 12/06/17 05:42: Glucometer 121 12/06/17 08:36: Troponin I < 0.30 Imaging: Reviewed Imaging Report Discussion & Recommendations Discharge Planning: <30 minutes discharge planning Discharge Home Medications: Active Scripts Active Reported Folic Acid 0.8 Mg Capsule 0.8 Mg PO DAILY Vitamin B-12 (Cyanocobalamin (Vitamin B-12)) 1,000 Mcg Capsule 1,000 Mcg PO DAILY Magnesium (Magnesium Oxide) 250 Mg Tablet 250 Mg PO DAILY Vitamin C (Ascorbate Calcium) 500 Mg Tablet 500 Mg PO DAILY Vitamin D3 (Cholecalciferol (Vitamin D3)) 1,000 Unit Capsule 1,000 Unit PO DAILY Daily Multiple Vitamin (Multivitamin) 1 Each Tablet 1 Tab PO DAILY Prilosec Otc (Omeprazole Magnesium) 20 Mg Tablet.dr 20 Mg PO DAILY [place]-3 + Vitamin D3 Softgel (Omega3/Dha/Epa/Fish Oil/Vit D3) 1 Each Capsule 1 Cap PO DAILY Estephania Allergy (Fexofenadine HCl) 180 Mg Tablet 180 Mg PO DAILY [Gymnema Sylvestris] 400 Mg PO DAILY Petadolex 75 (Butterbur Root Extract) 75 Mg Capsule 75 Mg PO DAILY Actos (Pioglitazone HCl) 30 Mg Tablet 30 Mg PO DAILY Instructions to patient/family Please see electronic discharge instructions given to patient. Clinical Quality Measures DVT/VTE Risk/Contraindication: Risk Factor Score Per Nursin RFS Level Per Nursing on Admit: 2=Moderate Problem Qualifiers (1) Uncontrolled diabetes mellitus: Diabetes mellitus type: type 2 Glycemic state: with hyperglycemia Qualified Codes: E11.65 - Type 2 diabetes mellitus with hyperglycemia (2) Hypertension: Hypertension type: essential hypertension Qualified Codes: I10 - Essential ( primary) hypertension DEIRDRE DIANA DO Dec 06, 2017 10:57
== END 2017-12-06 12:55 | disposition home or self-care (01) | DRG 641 ==
LOC: EDUNIT# 02:24 → ER 02:25 → ICU 03:44
PROVIDERS: ADMIT Internal Medicine; ATTEND Internal Medicine
DX: E87.2 Acidosis (principal); E86.0 Dehydration; R06.03 Acute respiratory distress; J81.1 Chronic pulmonary edema; R09.02 Hypoxemia; E11.65 Type 2 diabetes mellitus with hyperglycemia; J45.909 Unspecified asthma, uncomplicated; G47.33 Obstructive sleep apnea (adult) (pediatric); R07.9 Chest pain, unspecified; E11.40 Type 2 diabetes mellitus with diabetic neuropathy, unspecified; I11.9 Hypertensive heart disease without heart failure; E78.00 Pure hypercholesterolemia, unspecified; K21.9 Gastro-esophageal reflux disease without esophagitis; G43.909 Migraine, unspecified, not intractable, without status migrainosus; K44.9 Diaphragmatic hernia without obstruction or gangrene; M19.91 Primary osteoarthritis, unspecified site; F41.9 Anxiety disorder, unspecified; E66.9 Obesity, unspecified; Z68.37 Body mass index [BMI] 37.0-37.9, adult; E87.6 Hypokalemia; L40.9 Psoriasis, unspecified; Z79.84 Long term (current) use of oral hypoglycemic drugs; Z86.010 Personal history of colon polyps; Z91.120 Patient's intentional underdosing of medication regimen due to financial hardship; Z56.0 Unemployment, unspecified
CPT/HCPCS: 36415; 36600; 71045; 71275; 80048; 80053; 80061; 81000; 82805; 82962; 83036; 83605; 83735; 83880; 84100; 84484; 85025; 85610; 85730; 87040; 87070; 87088; 87205; 87804; 93005; 93306; 94640; 94660; 96361; 96365; 96372

== ENCOUNTER 2017-12-06 13:35 | Inpatient (IN) | payer OTHER ==
[2017-12-06] VITALS (14 sets, daily range): BP systolic 106–144; BP diastolic 64–88
[~2017-12-06] VITALS: Ht 172.7 cm; Wt 111.3 kg
[~2017-12-06 13:35] MED LIST changes: +ASCO-262 PO; +BUTT75CA PO; +CHOL10007 PO; +CYAN-23 PO; +FEXO180T84 PO; +FOLI0.8C PO; +MAGN250T13 PO; +MULT-35 PO; +OMEG-118 PO; +OMEP20TA33 PO; +PIOG30TA38 PO; +[UNRECOGNIZED DRUG - OTHER] PO
--- OUTSIDE RECORDS SUMMARY | 2017-12-06 13:46 | XMS REPORT | Continuity of Care Document ---
Author Author [facility] Organization [facility] Address Unknown Phone Unavailable Allergies Active Description Code Type Severity Reaction Onset Reported/Identified Relationship to Patient Clinical Status Yes codeine [id number] Drug Allergy Unknown N/A 07/19/2013 Yes ENVIRONMENTAL ENVIRONMENTAL Unknown N/A 07/19/2013 Yes milk [id number] Drug Allergy Unknown gas/rash 07/19/2013 Yes Milk Containing Products [id number] Drug Allergy Unknown gas/rash 2013 Yes peanut [id number] Drug Allergy Unknown air closes off 07/19/2013 Yes Penicillins [id number] Drug Allergy Unknown N/A 07/19/2013 Yes strawberry [id number] Drug Allergy Unknown airway closes o 07/19/2013 Yes Sulfa (Sulfonamide Antibiotics) [id number] Drug Allergy Unknown N/A 2013 Yes EGG WHITES EGG WHITES Mild N/A 02/02/2014 Yes codeine [id number] Drug Allergy Mild NAUSEA 02/03/2014 Yes egg [id number] Drug Allergy Mild N/A 02/05/2014 Yes Insulins [id number] Drug Allergy Unknown N/A 06/06/2015 Yes lidocaine [id number] Drug Allergy Unknown N/A 01/06/2016 Medications There [...] V72.81 01/18/2014 Ot V74.8 01/18/2014 NEY EDEN Ot 473.9 02/02/2014 KATE CASTILLO DPM Ot [...] BLANCHO DPM, KATE Stevens Ot 730.20 02/22/2014 ANTONIA SCHMITZ, CROW Borrero Ot 250.00 02/22/2014 CORW KNIGHT MD Ot 397.0 02/22/2014 CROW KNIGHT MD Ot 424.0 02/22/2014 CROW KNIGHT MD Ot 427.69 02/22/2014 CROW KNIGHT MD Ot 786.05 02/22/2014 CROW KNIGHT MD Ot V72.81 02/23/2014 TESHA TAY DO Ot 730.20 02/25/2014 SUZE SINGLETON MD Ot 730.27 02/25/2014 SUZE SINGLETON MD Ot V58.62 03/02/2014 TESHA TAY DO Ot 730.20 03/02/2014 MANI SCHMITZ, SUZE Benavides Ot 250.00 03/02/2014 SUZE SINGLETON MD Ot [...] 03/29/2014 SUZE SINGLETON MD Ot V58.62 04/01/2014 MANI SCHMITZ, SUZE Benavides Ot 785.1 04/15/2014 MANI SCHMITZ, SUZE Benavides Ot 785.1 08/13/2014 COLTHARP DO, GRAZYNA Lopez [...] COLTHARP DO, GRAZYNA Lopez Ot 250.80 10/06/2014 CASI MCFADDEN, GRAZYNA Lopez Ot 401.9 10/06/2014 CASI MCFADDEN, GRAZYNA Lopez Ot 707.15 10/06/2014 CASI [...] ULCER OF OTHER PART OF FOOT 10/27/2014 GRAZYNA LANCE DO Ot 713.5 ARTHROPATHY W NERVE DIS 12/15/2014 MANI SCHMITZ, SUZE Benavides Ot R05 12/15/2014 MANI SCHMITZ, USZE Benavides Ot R50.9 06/06/2015 SHEY SCHMITZ, BELTRAN [...] NOS 06/07/2015 KATE CASTILLO DPM Ot 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 06/07/2015 KATE CASTILLO DPM Ot [...] BREATH 06/07/2015 CROW KNIGHT MD Ot V72.81 [id number] CARDIOVASCULAR 06/07/2015 BLANCHO DPM, KATE G Ot [...] Ot R05 COUGH 06/07/2015 SUZE SINGLETON MD D Ot R50.9 FEVER, UNSPECIFIED 06/08/2015 SHEY SCHMITZ, BELTRAN Benavides Ot I10 ESSENTIAL (PRIMARY) HYPERTENSION 01/06/2016 LEE CARDENAS MD T Ot E11.9 TYPE 2 DIABETES MELLITUS WITHOUT COMPLIC 01/06/2016 LEE CARDENAS MD T Ot I10 ESSENTIAL (PRIMARY) HYPERTENSION 01/06/2016 LEE CARDENAS MD T Ot R10.30 LOWER ABDOMINAL PAIN, UNSPECIFIED 01/06/2016 LEE CARDENAS MD T Ot Z79.84 USP (CURRENT) USE OF ORAL HYPOGLYC 01/06/2016 LEE CARDENAS MD T Ot Z79.899 OTHER MAPPING ENGINEER (CURRENT) DRUG THERAPY 01/09/2016 LEE CARDENAS MD Ot E11.9 TYPE 2 DIABETES MELLITUS WITHOUT COMPLIC 01/09/2016 LEE CARDENAS MD T Ot I10 ESSENTIAL (PRIMARY) HYPERTENSION 01/09/2016 LEE CARDENAS MD T Ot R10.30 LOWER ABDOMINAL PAIN, UNSPECIFIED 01/09/2016 LEE CARDENAS MD T Ot Z79.84 MAPPING ENGINEER (CURRENT) USE OF ORAL HYPOGLYC 01/09/2016 LEE CARDENAS MD T Ot Z79.899 OTHER USP (CURRENT) DRUG THERAPY 02/01/2016 SLY MYERS BANANA GRADER Ot E08.40 DIABETES DUE TO UNDERLYING CONDITION W D 02/01/2016 SLY MYERS BANANA GRADER Ot L97.511 NON-PRS CHRONIC ULCER OTH PRT R FOOT ROJAS 02/01/2016 SLY MYERS BANANA GRADER Ot L97.512 NON-PRS CHRONIC ULCER OTH PRT RIGHT FOOT 03/28/2016 SLY MYERS BANANA GRADER Ot E08.40 DIABETES DUE TO UNDERLYING CONDITION W D 03/28/2016 SLY MYERS BANANA GRADER Ot L97.511 NON-PRS CHRONIC ULCER OTH PRT R FOOT ROJAS 03/28/2016 SLY MYERS BANANA GRADER Ot L97.512 NON-PRS CHRONIC ULCER OTH PRT RIGHT FOOT 03/29/2016 SLY MYERS BANANA GRADER Ot E08.40 DIABETES DUE TO UNDERLYING CONDITION W D 03/29/2016 LUCIA, SLY R BANANA GRADER Ot L97.511 NON-PRS CHRONIC ULCER OTH PRT R FOOT ROJAS 03/29/2016 LUCIA SLY R BANANA GRADER Ot L97.512 NON-PRS CHRONIC ULCER OTH PRT RIGHT FOOT 03/30/2016 LUCIA SLY R BANANA GRADER Ot E08.40 DIABETES DUE TO UNDERLYING CONDITION W D 03/30/2016 LUCIA SLY R BANANA GRADER Ot L97.511 NON-PRS CHRONIC ULCER OTH PRT R FOOT ROJAS 03/30/2016 LUCIA SLY R BANANA GRADER Ot L97.512 NON-PRS CHRONIC ULCER OTH PRT RIGHT FOOT 04/19/2016 LUCIA SLY R BANANA GRADER Ot E08.40 DIABETES DUE TO UNDERLYING CONDITION W D 04/19/2016 LUCIA SLY R BANANA GRADER Ot L97.511 NON-PRS CHRONIC ULCER OTH PRT R FOOT ROJAS 04/19/2016 LUCIA SLY R BANANA GRADER Ot L97.512 NON-PRS CHRONIC ULCER OTH PRT RIGHT FOOT 05/03/2016 LUCIA SLY R BANANA GRADER Ot E08.40 DIABETES DUE TO UNDERLYING CONDITION W D 05/03/2016 LUCIA SLY R BANANA GRADER Ot L97.511 NON-PRS CHRONIC ULCER OTH PRT R FOOT ROJAS 05/03/2016 LUCIA SLY R BANANA GRADER Ot L97.512 NON-PRS CHRONIC ULCER OTH PRT RIGHT FOOT 12/04/2017 NEY EDEN RPA-Ashley Ot 473.9 CHRONIC SINUSITIS NOS 12/04/2017 KATE CASTILLO DPM Ot 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 12/04/2017 KATE CASTILLO DPM Ot 713.5 ARTHROPATHY W NERVE DIS 12/04/2017 KATE CASTILLO DPM Ot 793.7 NOSP (ABN) FINDINGS ON RADIOLOGICAL OT 12/04/2017 KATE CASTILLO DPM Ot 250.00 DIAB JENNIFER WO COMPL, TYPE II OR UNSPEC TY 12/04/2017 KATE CASTILLO DPM Ot 730.20 OSTEOMYELITIS NOS-UNSPEC 12/04/2017 CROW KNIGHT MD Ot 250.00 DIAB JENNIFER WO COMPL, TYPE II OR UNSPEC TY 12/04/2017 CROW KNIGHT MD Ot 397.0 TRICUSPID VALVE DISEASE 12/04/2017 CROW KNIGHT MD Ot 424.0 MITRAL VALVE DISORDER 12/04/2017 CROW KNIGHT MD Ot 427.69 PREMATURE BEATS NEC 12/04/2017 CROW KNIGHT MD Ot 786.05 SHORTNESS OF BREATH 12/04/2017 CROW KNIGHT MD Ot V72.81 [id number] CARDIOVASCULAR 12/04/2017 BLANCHO DPM, KATE G Ot 094.0 TABES DORSALIS 12/04/2017 BLANCHO DPM, KATE G Ot 713.5 ARTHROPATHY W NERVE DIS 12/04/2017 BLANCHO DPM, KATE G Ot 730.27 OSTEOMYELITIS NOS-ANKLE 12/04/2017 BLANCHO DPM, KATE G Ot V72.84 EXAM PRE-OPERATIVE NOS 12/04/2017 BLANCHO DPM, KATE G Ot 730.27 OSTEOMYELITIS NOS-ANKLE 12/04/2017 BLANCHO DPM, KATE Stevens Ot V58.62 ENCOUNT FOR LONG-TERM(CURRENT) USE OF AN 12/04/2017 SUZE SINGLETON MD Ot 730.27 OSTEOMYELITIS NOS-ANKLE 12/04/2017 SUZE SINGLETON MD Ot V58.62 ENCOUNT FOR LONG-TERM(CURRENT) USE OF AN 12/04/2017 SUZE SINGLETON MD Ot 250.00 DIAB JENNIFER WO COMPL, TYPE II OR UNSPEC TY 12/04/2017 SUZE SINGLETON MD Ot 730.20 OSTEOMYELITIS NOS-UNSPEC 12/04/2017 TESHA TAY DO Ot 730.20 OSTEOMYELITIS NOS-UNSPEC 12/04/2017 SUZE SINGLETON MD Ot 730.27 OSTEOMYELITIS NOS-ANKLE 12/04/2017 SUZE SINGLETON MD Ot V58.62 ENCOUNT FOR LONG-TERM(CURRENT) USE OF AN 12/04/2017 SUZE SINGLETON MD Ot 730.27 OSTEOMYELITIS NOS-ANKLE 12/04/2017 SUZE SINGLETON MD Ot V58.62 ENCOUNT FOR LONG-TERM(CURRENT) USE OF AN 12/04/2017 SUZE SINGLETON MD Ot 730.27 OSTEOMYELITIS NOS-ANKLE 12/04/2017 SUZE SINGLETON MD Ot V58.62 ENCOUNT FOR LONG-TERM(CURRENT) USE OF AN 12/04/2017 SUZE SINGLETON MD Ot 785.1 PALPITATIONS 12/04/2017 SUZE SINGLETON MD Ot R05 COUGH 12/04/2017 SUZE SINGLETON MD Ot R50.9 FEVER, UNSPECIFIED 12/04/2017 NEY EDEN Ot 473.9 CHRONIC SINUSITIS NOS 12/04/2017 MOHINIHO KATE GRANADO Ot 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 12/04/2017 KATE CASTILLO DPM Ot 713.5 ARTHROPATHY W NERVE DIS 12/04/2017 KATE CASTILLO DPM Ot 793.7 NOSP (ABN) FINDINGS ON RADIOLOGICAL OT 12/04/2017 KATE CASTILLO DPM Ot 250.00 DIAB JENNIFER WO COMPL, TYPE II OR UNSPEC TY 12/04/2017 MOHINIHO KATE GRANADO Ot 730.20 OSTEOMYELITIS NOS-UNSPEC 12/04/2017 CROW KNIGHT MD Ot 250.00 DIAB JENNIFER WO COMPL, TYPE II OR UNSPEC TY 12/04/2017 CROW KNIGHT MD Ot 397.0 TRICUSPID VALVE DISEASE 12/04/2017 CROW KNIGHT MD Ot 424.0 MITRAL VALVE DISORDER 12/04/2017 CROW KNIGHT MD Ot 427.69 PREMATURE BEATS NEC 12/04/2017 CROW KNIGHT MD Ot 786.05 SHORTNESS OF BREATH 12/04/2017 CROW KNIGHT MD Ot V72.81 [id number] CARDIOVASCULAR 12/04/2017 KATE CASTILLO DPM Ot 094.0 TABES DORSALIS 12/04/2017 KATE CASTILLO DPM Ot 713.5 ARTHROPATHY W NERVE DIS 12/04/2017 MOHINIHO KATE GRANADO Ot 730.27 OSTEOMYELITIS NOS-ANKLE 12/04/2017 KATE CASTILLO DPM Ot V72.84 EXAM PRE-OPERATIVE NOS 12/04/2017 MOHINIHO KATE GRANADO Ot 730.27 OSTEOMYELITIS NOS-ANKLE 12/04/2017 KATE CASTILLO DPM Ot V58.62 ENCOUNT FOR LONG-TERM(CURRENT) USE OF AN 12/04/2017 SUZE SINGLETON MD Ot 730.27 OSTEOMYELITIS NOS-ANKLE 12/04/2017 SUZE SINGLETON MD Ot V58.62 ENCOUNT FOR LONG-TERM(CURRENT) USE OF AN 12/04/2017 SUZE SINGLETON MD Ot 250.00 DIAB JENNIFER WO COMPL, TYPE II OR UNSPEC TY 12/04/2017 SUZE SINGLETON MD Ot 730.20 OSTEOMYELITIS NOS-UNSPEC 12/04/2017 TESHA TAY DO Ot 730.20 OSTEOMYELITIS NOS-UNSPEC 12/04/2017 SUZE SINGLETON MD Ot 730.27 OSTEOMYELITIS NOS-ANKLE 12/04/2017 SUZE SINGLETON MD, Ot V58.62 ENCOUNT FOR LONG-TERM(CURRENT) USE OF AN 12/04/2017 SUZE SINGLETON MD, Ot 730.27 OSTEOMYELITIS NOS-ANKLE 12/04/2017 SUZE SINGLETON MD, Ot V58.62 ENCOUNT FOR LONG-TERM(CURRENT) USE OF AN 12/04/2017 SUZE SINGLETON MD, Ot 730.27 OSTEOMYELITIS NOS-ANKLE 12/04/2017 SUZE SINGLETON MD, Ot V58.62 ENCOUNT FOR LONG-TERM(CURRENT) USE OF AN 12/04/2017 SUZE SINGLETON MD, Ot 785.1 PALPITATIONS 12/04/2017 SUZE SINGLETON MD, Ot R05 COUGH 12/04/2017 SUZE SINGLETON MD, Ot R50.9 FEVER, UNSPECIFIED Procedures Code Description Performed By Performed On 77.98 TOT OSTECT-METATARS/TARS 02/02/2014 Results Test Result Range Bacteria identification in isolate by anaerobe culture - 12/29/15 11:07 Bacteria identification in isolate by anaerobe culture NOANA NRG Gram stain microscopy - 12/29/15 11:07 GRAM STAIN RESULT NO WBC'S OR BACTERIA OBSERVED NRG Bacteria identification in wound by culture - 12/29/15 11:07 Bacteria identification in wound by culture [id number] NRG QUANTITY OF GROWTH Scant Growth NRG [...] 15:30 Bacteria identification in wound by culture [id number] NRG FREE TEXT EXTERNAL SENSITIVITY REPORTED AT [...] 15:45 Bacteria identification in wound by culture [id number] NRG FREE TEXT EXTERNAL SENSITIVITY REPORTED AT [...] 15:38 Bacteria identification in wound by culture [id number] NRG FREE TEXT EXTERNAL (NOT JK) NRG [...] test by minimum inhibitory concentration R NRG Complete blood count (CBC) with automated white blood cell (WBC) differential - 12/04/17 02:30 Blood leukocytes automated count (number/volume) 8.1 10*3/uL 4.3-11.0 Blood erythrocytes automated count (number/volume) 5.07 10*6/uL 4.35-5.85 Venous blood hemoglobin measurement (mass/volume) 15.4 g/dL 13.3-17.7 Blood hematocrit (volume fraction) 44 % 40-54 Automated erythrocyte mean corpuscular volume 86 [foz_us] 80-99 Automated erythrocyte mean corpuscular hemoglobin (mass per erythrocyte) 30 pg 25-34 Automated erythrocyte mean corpuscular hemoglobin concentration measurement ( mass/volume) 35 g/dL 32-36 Automated erythrocyte distribution width ratio 13.3 % 10.0-14.5 Automated blood platelet count (count/volume) 309 10*3/uL 130-400 Automated blood platelet mean volume measurement 9.9 [foz_us] 7.4-10.4 Automated blood neutrophils/100 leukocytes 57 % 42-75 Automated blood lymphocytes/100 leukocytes 33 % 12-44 Blood monocytes/100 leukocytes 7 % 0-12 Automated blood eosinophils/100 leukocytes 2 % 0-10 Automated blood basophils/100 leukocytes 1 % 0-10 Blood neutrophils automated count (number/volume) 4.6 10*3 1.8-7.8 Blood lymphocytes automated count (number/volume) 2.7 10*3 1.0-4.0 Blood monocytes automated count (number/volume) 0.6 10*3 0.0-1.0 Automated eosinophil count 0.2 10*3/uL 0.0-0.3 Automated blood basophil count (count/volume) 0.0 10*3/uL 0.0-0.1 PT panel in platelet poor plasma by coagulation assay - 12/04/17 02:30 Prothrombin time (PT) in platelet poor plasma by coagulation assay 11.9 s 12.2-14.7 INR in platelet poor plasma or blood by coagulation assay 0.9 0.8-1.4 Activated partial thromboplastin time (aPTT) in platelet poor plasma bycoagulation assay - 12/04/17 02:30 Activated partial thromboplastin time (aPTT) in platelet poor plasma bycoagulation assay 30 s 24-35 Comprehensive metabolic panel - 12/04/17 02:30 Serum or plasma sodium measurement (moles/volume) 136 mmol/L 135-145 Serum or plasma potassium measurement (moles/volume) 3.7 mmol/L 3.6-5.0 Serum or plasma chloride measurement (moles/volume) 98 mmol/L 98-107 Carbon dioxide 20 mmol/L 21-32 Serum or plasma anion gap determination (moles/volume) 18 mmol/L 5-14 Serum or plasma urea nitrogen measurement (mass/volume) 8 mg/dL 7-18 Serum or plasma creatinine measurement (mass/volume) 1.31 mg/dL 0.60-1.30 Serum or plasma urea nitrogen/creatinine mass ratio 6 NRG Serum or plasma creatinine measurement with calculation of estimated glomerular filtration rate 56 NRG Serum or plasma glucose measurement (mass/volume) 579 mg/dL 70-105 Serum or plasma calcium measurement (mass/volume) 9.1 mg/dL 8.5-10.1 Serum or plasma total bilirubin measurement (mass/volume) 0.3 mg/dL 0.1-1.0 Serum or plasma alkaline phosphatase measurement (enzymatic activity/volume) 79 U/L 40-136 Serum or plasma aspartate aminotransferase measurement (enzymatic activity/ volume) 21 U/L 5-34 Serum or plasma alanine aminotransferase measurement (enzymatic activity/volume ) 20 U/L 0-55 Serum or plasma protein measurement (mass/volume) 7.7 g/dL 6.4-8.2 Serum or plasma albumin measurement (mass/volume) 3.8 g/dL 3.2-4.5 CALCIUM CORRECTED 9.3 mg/dL 8.5-10.1 Blood lactic acid measurement (moles/volume) - 12/04/17 02:30 Blood lactic acid measurement (moles/volume) 3.32 mmol/L 0.50-2.00 Serum or plasma lithium measurement (moles/volume) - 12/04/17 02:30 BNP level 199.9 pg/mL <100.0 Influenza virus A and B antigen detection - 12/04/17 02:30 FLU RESULT NEGATIVE FOR INFLUENZA A AND B ANTIGENS BY IA NRG Serum or plasma phosphate measurement (mass/volume) - 12/04/17 02:32 Serum or plasma phosphate measurement (mass/volume) 5.1 mg/dL 2.3-4.7 Magnesium - 12/04/17 02:32 Magnesium 2.2 mg/dL 1.8-2.4 Complete urinalysis with reflex to culture - 12/04/17 04:45 Urine color determination YELLOW NRG Urine clarity determination CLEAR NRG Urine pH measurement by test strip 6.5 5-9 Specific gravity of urine by test strip 1.010 1.016- 1.022 Urine protein assay by test strip, semi-quantitative 4+ NEGATIVE Urine glucose detection by automated test strip 4+ NEGATIVE Erythrocytes detection in urine sediment by light microscopy 1+ NEGATIVE Urine ketones detection by automated test strip NEGATIVE NEGATIVE Urine nitrite detection by test strip NEGATIVE NEGATIVE Urine total bilirubin detection by test strip NEGATIVE NEGATIVE Urine urobilinogen measurement by automated test strip (mass/volume) NORMAL NORMAL Urine leukocyte esterase detection by dipstick 1+ NEGATIVE Automated urine sediment erythrocyte count by microscopy (number/high power field) [HPF] NRG Automated urine sediment leukocyte count by microscopy (number/high power field ) [HPF] NRG Bacteria detection in urine sediment by light microscopy TRACE NRG Squamous epithelial cells detection in urine sediment by light microscopy NONE NRG Crystals detection in urine sediment by light microscopy NONE NRG Casts detection in urine sediment by light microscopy NONE NRG Mucus detection in urine sediment by light microscopy NEGATIVE NRG Complete urinalysis with reflex to culture NO NRG Serum or plasma lactate measurement (moles/volume) - 12/04/17 05:10 Serum or plasma lactate measurement (moles/volume) 4.19 mmol/L 0.50-2.00 Arterial blood gas measurement - 12/04/17 10:47 Blood pCO2 37 mm[Hg] 35-45 Blood pO2 87 mm[Hg] 79-93 Arterial blood bicarbonate measurement (moles/volume) 23 mmol/L 23-27 Arterial blood base excess by calculation -1.6 mmol/L - 2.5-2.5 Arterial blood oxygen saturation measurement 98 % 94-100 * Inhaled oxygen flow rate N/A NRG Arterial blood pH measurement with patient temperature correction 7.40 7.37-7.43 Arterial blood carbon dioxide, total measurement (moles/volume) 23.6 mmol/L 21.0-31.0 Body site RIGHT RADIAL NRG Assessment of wrist artery patency prior to arterial puncture POSITIVE NRG Setting of ventilation mode NO NRG Measurement of body temperature 98.2 NR Lipid 1996 panel - 12/04/17 14:28 Serum or plasma triglyceride measurement (mass/volume) 117 mg/dL <150 Serum or plasma cholesterol measurement (mass/volume) 178 mg/dL < 200 Serum or plasma cholesterol in HDL measurement (mass/volume) 37 mg/ dL 40-60 Cholesterol in LDL [mass/volume] in serum or plasma by direct assay 133 mg/dL 1-129 Serum or plasma cholesterol in VLDL measurement (mass/volume) 23 mg/ dL 5-40 Capillary blood glucose measurement by glucometer (mass/volume) - 12/04/17 15: 51 Capillary blood glucose measurement by glucometer (mass/volume) 321 mg/dL 70-110 Encounters ACCT No. Visit Date/Time Discharge Status Pt. Type Provider Facility Loc./Unit Complaint [id number] 09/24/2016 15:00:00 09/24/2016 23:59:59 CLS Preadmit SUZE SINGLETON MD [facility] DSME UNCONTROLLED DIABETES [id number] 07/09/2016 12:00:00 07/09/2016 23:59:59 CLS Preadmit ANTONIA SCHMITZ, CROW Borrero [facility] CARD CHST PAIN SYNDROME,HTN, MR,SOB [id number] 04/19/2016 15:00:00 04/19/2016 16:00:00 DIS Outpatient SLY MYERS APRN [facility] WOUNDCARE [id number] 03/20/2016 14:18:00 03/28/2016 00:01:00 DIS Outpatient SLY MYERS KARI [facility] WOUNDCARE [id number] 01/06/2016 16:31:00 01/06/2016 19:59:00 DIS Emergency THERESA SCHMITZ, LEE Ayala [facility] ER FEVER/UPSET STOMACH/ PASSING BLOOD [id number] 06/06/2015 21:42:00 06/06/2015 23:06:00 DIS Emergency BELTRAN KAT MD [facility] ER SOA,ELEVATED BLOOD PRESSURE [id number] 12/01/2014 16:40:00 12/01/2014 23:59:59 CLS Outpatient SUZE SINGLETON MD [facility] RAD COUGH [id number] 10/27/2014 13:16:00 10/27/2014 15:00:00 DIS Outpatient COLTHARP GRAZYNA MCFADDEN [facility] WOUNDCARE [id number] 09/15/2014 13:14:00 09/28/2014 00:01:00 DIS Outpatient COLGRAZYNA ABEL DO [facility] WOUNDCARE [id number] 03/31/2014 08:15:00 03/31/2014 23:59:59 CLS Outpatient SUZE SINGLETON MD [facility] CARD PALP [id number] 03/08/2014 08:15:00 03/08/2014 23:59:59 CLS Outpatient SUZE SINGLETON MD [facility] OSTEOMYLITIS, IV ABX THERAPY, VANCO THERAPY [id number] 03/01/2014 08:30:00 03/01/2014 23:59:59 CLS Outpatient SUZE SINGLETON MD [facility] OSTEOMYLITIS,IV ABX THERAPY,VANCO THERAPY [id number] 02/22/2014 08:30:00 02/22/2014 23:59:59 CLS Outpatient SUZE SINGLETON MD [facility] OSTEOMYLITIS, IV ABX THERAPY, VANCO THERAPY [id number] 02/20/2014 08:30:00 02/20/2014 23:59:59 CLS Outpatient TESHA TAY DO [facility] OSTEOMYLITIS [id number] 02/18/2014 08:30:00 02/18/2014 23:59:59 CLS Outpatient SUZE SINGLETON MD [facility] OSTEOMYLITIS, DM, WOUND [id number] 02/15/2014 10:31:00 02/15/2014 23:59:59 CLS Outpatient SUZE SINGLETON MD [facility] OSTEOMYLITIS, IV ABX THERAPY, VANCO THERAPY, [id number] 02/12/2014 12:15:00 02/12/2014 23:59:59 CLS Outpatient KATE CASTILLO DPM [facility] OSEOMYLITIS,IC ABD THERAPY [id number] 02/02/2014 12:35:00 02/10/2014 17:53:00 DIS Inpatient SUZE SINGLETON MD [facility] SURGICAL OSTEOMYELITIS LEFT FOOT [id number] 02/01/2014 15:31:00 02/01/2014 23:59:59 CLS Outpatient ESTUARDONCHO KATE GRANADO [facility] PREOP OSTEOMYELITIS LEFT FOOT [id number] 01/29/2014 09:20:00 01/29/2014 23:59:59 CLS Outpatient CROW KNIGHT MD [facility] CARD DM,MR,PVC,SOB [id number] 01/25/2014 16:39:00 01/25/2014 23:59:59 CLS Outpatient MOHINIHO KATE GRANADO [facility] RT OSTEOMYULITIS [id number] 01/18/2014 10:44:00 01/18/2014 23:59:59 CLS Outpatient BLANCHO DPKATE Galdamez [facility] CARD CHARCOT FOOT [id number] 11/30/2013 08:00:00 12/16/2013 14:05:00 DIS Outpatient EFREN STOKES DO [facility] REHAB LEFT WRIST PAIN [id number] 09/23/2013 09:28:00 09/23/2013 23:59:59 CLS Outpatient [id number] 07/18/2013 19:40:00 07/18/2013 23:59:59 CLS Inpatient MANI SCHMITZ, SUZE Benavides [facility] 4TH INFECTED WOUND/ CELLULITIS LEFT LEG [id number] 07/11/2012 08:18:00 07/30/2012 08:45:00 DIS Outpatient RITA (JOSÉ LUIS)ZORAIDA [facility] REHAB HEADACHE [id number] 06/18/2012 07:21:00 06/18/2012 23:59:59 CLS Outpatient NEY EDEN [facility] RAD CHRONIC SINUSITIS [id number] 12/04/2017 03:44:00 ACT Inpatient BEVERLY SCHMITZ, JULIO Zavaleta [facility] ICU RLL PNEUMONIA,UNCONTROLLED DM [id number] 06/04/2012 08:20:00 Document Registration [id number] 02/16/2012 02:53:00 Document Registration [id number] 10/09/2011 05:49:00 Document Registration [id number] 10/02/2011 09:35:00 Document Registration [id number] 08/31/2011 07:36:00 Document Registration [id number] 08/28/2011 07:39:00 Document Registration [id number] 08/27/2011 09:49:00 Document Registration [id number] 11/24/2008 10:32:00 Document Registration [id number] 11/16/2008 10:15:00 Document Registration [id number] 10/28/2014 07:32:00 ACT Document Registration
[2017-12-06] MEDS ORDERED: PROPOFOL DRIP (ICU) 100 ML IV ONE (13:54)
[2017-12-06] MEDS ORDERED: FUROSEMIDE 40 MG/4 ML INJ (LASIX) IVP ONE ×2 (14:00→19:00)
[2017-12-06] MEDS ORDERED: SUCCINYLCHOLINE INJ 100 MG/5 ML SYR INJ ONE (14:00)
[2017-12-06] MEDS ORDERED: ETOMIDATE IV SOLN 20 MG/10 ML VIAL IV ONE (14:00)
[2017-12-06] MEDS ORDERED: fentaNYL INJECTION 100 MCG/2 ML AMP INJ ONE (14:01)
[2017-12-06] MEDS ORDERED: MIDAZOLAM 5 MG/5 ML (VERSED) VIAL INJ ONE (14:01)
--- NOTE | 2017-12-06 14:02 | ED Cough/URI ---
General Chief Complaint: Respiratory Problems Stated Complaint: LOW OXYGEN SATURATION Source: patient Exam Limitations: no limitations History of Present Illness Date Seen by Provider: Dec 06, 2017 Time Seen by Provider: 13:57 Initial Comments To ER per EMS from home with reports of sudden onset shortness of breath that occurred just prior to arrival he was sitting on the couch. He was recently released from the hospital. Upon EMS arrival oxygen saturation was in the 60% range. Blood pressure was very elevated at 230/100. Mental status declined and by the time he arrived to the emergency room he was unable to communicate, unresponsive to verbal or painful stimuli, tachypneic tachycardic and with shallow breathing diminished lung sounds bilaterally oxygen saturation 84% on nonrebreather. Timing/Duration: constant Severity/Quality: moderate Associated Symptoms: shortness of breath Allergies and Home Medications Allergies Coded Allergies: egg (Unverified Allergy, Mild, 02/05/14) EGG WHITES FROM UNCODED ALLERGIES Insulins (Unverified Allergy, Unknown, 06/06/15) Milk Containing Products (Unverified Allergy, Unknown, gas/rash, 07/19/13) Penicillins (Unverified Allergy, Unknown, 07/19/13) Sulfa (Sulfonamide Antibiotics) (Unverified Allergy, Unknown, 07/19/13) lidocaine (Verified Allergy, Unknown, 01/06/16) milk (Unverified Allergy, Unknown, gas/rash, 07/19/13) peanut (Unverified Allergy, Unknown, air closes off, 07/19/13) strawberry (Unverified Allergy, Unknown, airway closes off, 07/19/13) codeine (Unverified Adverse Reaction, Mild, NAUSEA, 02/03/14) Uncoded Allergies: ENVIRONMENTAL (Allergy, Unknown, 07/19/13) Home Medications Ascorbate Calcium 500 Mg Tablet, 500 MG PO DAILY, (Reported) Butterbur Root Extract 75 Mg Capsule, 75 MG PO DAILY, (Reported) Cholecalciferol (Vitamin D3) 1,000 Unit Capsule, 1,000 UNIT PO DAILY, (Reported) Cyanocobalamin (Vitamin B-12) 1,000 Mcg Capsule, 1,000 MCG PO DAILY, (Reported) Fexofenadine HCl 180 Mg Tablet, 180 MG PO DAILY, (Reported) Folic Acid 0.8 Mg Capsule, 0.8 MG PO DAILY, (Reported) Magnesium Oxide 250 Mg Tablet, 250 MG PO DAILY, (Reported) Multivitamin 1 Each Tablet, 1 TAB PO DAILY, (Reported) Omega3/Dha/Epa/Fish Oil/Vit D3 1 Each Capsule, 1 CAP PO DAILY, (Reported) Omeprazole Magnesium 20 Mg Tablet.dr, 20 MG PO DAILY, (Reported) Pioglitazone HCl 30 Mg Tablet, 30 MG PO DAILY, (Reported) [Gymjaviera Sylelainetris] , 400 MG PO DAILY, (Reported) Patient Home Medication List Home Medication List Reviewed: Yes Review of Systems Review of Systems Constitutional: see HPI, other (Unable to obtain review of systems due to patient's inability to communicate) Past Dyvfqjn-Jtjpyn-Bkzhjz Hx Patient Social History Alcohol Beverage of Choice: Wine 2nd Hand Smoke Exposure: No Recent Hopitalizations: No Immunizations Up To Date Tetanus Booster (TDap): Unknown Date of Pneumonia Vaccine: Aug 18, 2013 Seasonal Allergies Seasonal Allergies: No Past Medical History Surgeries: Yes (CARPAL TUNNEL RELASE SX, LEFT HAND SURGERY, L FOOT, upper/ lower gi scope) Abdominal, Gallbladder, Orthopedic, Tonsillectomy Respiratory: Yes (ASTHMA/CHRONIC BRONCHITIS/INHALER USE NEEDED) Asthma Currently Using CPAP: No Currently Using BIPAP: No Cardiac: Yes High Cholesterol, Hypertension Neurological: No Neuropathy Reproductive Disorders: No Sexually Transmitted Disease: No Genitourinary: No Gastrointestinal: Yes Gastroesophageal Reflux, Polyps, Hiatal Hernia Musculoskeletal: Yes (Left foot sx) Arthritis Endocrine: Yes Diabetes, Non-Insulin dep HEENT: No Loss of Vision: Denies Hearing Impairment: Denies Cancer: No Psychosocial: Yes Anxiety Integumentary: Yes Psoriasis Blood Disorders: No Adverse Reaction/Blood Tranf: No Family Medical History Congestive heart failure 19 MOTHER Family history: Arthritis 19 FATHER 19 MOTHER Family history: Cardiovascular disease 19 FATHER 19 MOTHER Family history: Diabetes mellitus 19 FATHER Family history: Glaucoma 19 MOTHER Family history: Hypertension 19 FATHER 19 MOTHER Family history: Osteoporosis 19 MOTHER Hearing loss 19 MOTHER Heart disease 19 FATHER 19 MOTHER Myocardial infarction 19 FATHER 19 MOTHER (DBL BYPASS) Stroke 19 MOTHER (MICRO STROKES) No Family History of: Abdominal aortic aneurysm Ector's disease Alcoholism Aphasia Cancer Cancer of colon Cataract Chest pain Congenital heart disease Cystic fibrosis Dementia Dysphagia Family history: Allergy Family history: Alzheimer's disease Family history: Asthma Family history: Breast disease Family history: Coronary thrombosis Family history: Gastrointestinal disease Family history: Thyroid disorder Headache Hereditary disease History of - anemia History of - disorder History of - respiratory disease History of drug abuse Human immunodeficiency virus (HIV) seropositivity Hypercholesterolemia Infertile Kidney disease Malignant neoplasm of lung Parkinson's disease Prostate cancer Psychotic disorder Seizure disorder Tuberculosis Visual impairment Heart Disease, Diabetes, Hypertension Physical Exam Vital Signs - First Documented 12/06/17 14:26 Pulse 116 Resp 26 Pulse Ox 98 FiO2 100 Capillary Refill : Height: 5'10.00" Weight: 261lbs. 2.0oz. 118.066441wp; 37.4 BMI Method:Stated General Appearance: severe distress, obese Eyes: Bilateral Eye Normal Inspection, Bilateral Eye PERRL, Bilateral Eye EOMI HEENT: PERRL/EOMI, normal ENT inspection Neck: non-tender, full range of motion, other (ddistended jugular veins) Respiratory: decreased breath sounds, accessory muscle use, rales Cardiovascular: no murmur, tachycardia (130s to 140s narrow complex regular) Gastrointestinal: normal bowel sounds, non tender, soft Neurologic/Psychiatric: other (unresponsive to verbal or painful stimuli) Skin: normal color, warm/dry Focused Exam Lactate Level 12/06/17 14:15: Lactic Acid Level 0.84 Lactic Acid Level Laboratory Tests Test 12/06/17 14:15 Lactic Acid Level 0.84 MMOL/L (0.50-2.00) Progress/Results/Core Measures Suspected Sepsis SIRS Temperature: Pulse: Respiratory Rate: Laboratory Tests 12/06/17 13:42: White Blood Count 15.0H Blood Pressure / Mean: 12/06/17 14:15: Lactic Acid Level 0.84 Laboratory Tests 12/06/17 13:42: Creatinine 0.91, Platelet Count 375, Total Bilirubin 0.6 Results/Orders Lab Results Laboratory Tests Test 12/06/17 13:42 12/06/17 13:51 12/06/17 14:12 12/06/17 14:15 Range/Units White Blood Count 15.0 H 4.3-11.0 10^3/uL Red Blood Count 4.79 4.35-5.85 10^6/uL Hemoglobin 14.8 # 13.3-17.7 G/DL Hematocrit 43 40-54 % Mean Corpuscular Volume 90 80-99 FL Mean Corpuscular Hemoglobin 31 25-34 PG Mean Corpuscular Hemoglobin Concent 35 32-36 G/DL Red Cell Distribution Width 13.9 10.0-14.5 % Platelet Count 375 130-400 10^3/uL Mean Platelet Volume 10.2 7.4-10.4 FL Neutrophils (%) (Auto) 68 42-75 % Lymphocytes (%) (Auto) 20 12-44 % Monocytes (%) (Auto) 9 0-12 % Eosinophils (%) (Auto) 2 0-10 % Basophils (%) (Auto) 0 0-10 % Neutrophils # (Auto) 10.3 H 1.8-7.8 X 10^3 Lymphocytes # (Auto) 3.0 1.0-4.0 X 10^3 Monocytes # (Auto) 1.4 H 0.0-1.0 X 10^3 Eosinophils # (Auto) 0.3 0.0-0.3 10^3/uL Basophils # (Auto) 0.1 0.0-0.1 10^3/uL Neutrophils % (Manual) 63 % Lymphocytes % (Manual) 20 % Monocytes % (Manual) 5 % Eosinophils % (Manual) 3 % Basophils % (Manual) 2 % Band Neutrophils 0 % Reactive Lymphocytes 7 % Blood Morphology Comment NORMAL Sodium Level 137 135-145 MMOL/L Potassium Level 4.4 3.6-5.0 MMOL/L Chloride Level 104 98-107 MMOL/L Carbon Dioxide Level 20 L 21-32 MMOL/L Anion Gap 13 5-14 MMOL/L Blood Urea Nitrogen 6 L 7-18 MG/DL Creatinine 0.91 0.60-1.30 MG/DL Estimat Glomerular Filtration Rate > 60 BUN/Creatinine Ratio 7 Glucose Level 230 H 70-105 MG/DL Calcium Level 9.3 8.5-10.1 MG/DL Corrected Calcium 9.4 8.5-10.1 MG/DL Total Bilirubin 0.6 0.1-1.0 MG/DL Aspartate Amino Transf (AST/SGOT) 21 5-34 U/L Alanine Aminotransferase (ALT/SGPT) 19 0-55 U/L Alkaline Phosphatase 80 40-136 U/L Troponin I < 0.30 <0.30 NG/ML B-Type Natriuretic Peptide 101.9 H <100.0 PG/ML Total Protein 8.0 6.4-8.2 GM/DL Albumin 3.9 3.2-4.5 GM/DL Urine Opiates Screen NEGATIVE NEGATIVE Urine Oxycodone Screen NEGATIVE NEGATIVE Urine Methadone Screen NEGATIVE NEGATIVE Urine Propoxyphene Screen NEGATIVE NEGATIVE Urine Barbiturates Screen NEGATIVE NEGATIVE Ur Tricyclic Antidepressants Screen NEGATIVE NEGATIVE Urine Phencyclidine Screen NEGATIVE NEGATIVE Urine Amphetamines Screen NEGATIVE NEGATIVE Urine Methamphetamines Screen NEGATIVE NEGATIVE Urine Benzodiazepines Screen NEGATIVE NEGATIVE Urine Cocaine Screen NEGATIVE NEGATIVE Urine Cannabinoids Screen NEGATIVE NEGATIVE Blood Gas Puncture Site LT RAD Blood Gas Patient Temperature 99.6 Arterial Blood pH 7.22 *L 7.37-7.43 Arterial Blood Partial Pressure CO2 59 H 35-45 MMHG Arterial Blood Partial Pressure O2 100 H 79-93 MMHG Arterial Blood HCO3 23 23-27 MMOL/L Arterial Blood Total CO2 24.4 21.0-31.0 MMOL/L Arterial Blood Oxygen Saturation 97 94-100 % Arterial Blood Base Excess -3.9 L -2.5-2.5 MMOL/L Kush Test YES-POS Blood Gas Ventilator Setting YES Blood Gas Inspired Oxygen 100% Urine Color YELLOW Urine Clarity CLEAR Urine pH 5 5-9 Urine Specific Hallett 1.010 L 1.016-1.022 Urine Protein 4+ NEGATIVE Urine Glucose (UA) 3+ H NEGATIVE Urine Ketones 2+ H NEGATIVE Urine Nitrite NEGATIVE NEGATIVE Urine Bilirubin NEGATIVE NEGATIVE Urine Urobilinogen NORMAL NORMAL MG/DL Urine Leukocyte Esterase NEGATIVE NEGATIVE Urine RBC (Auto) 3+ H NEGATIVE Urine RBC 0-2 /HPF Urine WBC RARE /HPF Urine Squamous Epithelial Cells NONE /HPF Urine Crystals NONE /LPF Urine Bacteria NEGATIVE /HPF Urine Casts NONE /LPF Urine Mucus NEGATIVE /LPF Urine Culture Indicated NO Lactic Acid Level 0.84 0.50-2.00 MMOL/L My Orders Orders - BREONNA JUNIOR APRN Cbc With Automated Diff (12/06/17 13:54) Comprehensive Metabolic Panel (12/06/17 13:54) BNP (12/06/17 13:54) Troponin I (12/06/17 13:54) Ekg Tracing (12/06/17 13:54) Chest 1 View, Ap/Pa Only (12/06/17 13:54) Drug Screen Stat (Urine) (12/06/17 13:54) Furosemide Injection (Lasix Injection) (12/06/17 14:00) Etomidate Injection (Amidate Injection) (12/06/17 14:00) Succinylcholine Injection (Succinylcholi (12/06/17 14:00) Manual Differential (12/06/17 13:42) Propofol Injection (Diprivan Injection) (12/06/17 14:15) Nitro Drip 10389 Mcg/D5w (Nitroglycerin (12/06/17 14:15) Arterial Blood Gas (12/06/17 14:14) Thompson Cath (12/06/17 14:15) Ua Culture If Indicated (12/06/17 14:15) Fentanyl Injection (Sublimaze Injection (12/06/17 14:30) Ns (Ivpb) (Sodium C... W/Fentanyl Injec (12/06/17 14:30) Midazolam Injection (Versed Injection) (12/06/17 14:30) Ns (Ivpb) (Sodium C... W/Midazolam Injec (12/06/17 14:30) Midazolam Injection (Versed Injection) (12/06/17 14:19) Chest 1 View, Ap/Pa Only (12/06/17 14:20) Fentanyl Injection (Sublimaze Injection (12/06/17 14:21) Echo W Doppler/Color Flow (12/06/17 14:24) Blood Culture (12/06/17 14:36) Lactic Acid Analyzer (12/06/17 14:36) Medications Given in ED Current Medications Medications Dose Ordered Sig/Brissa Route Start Time Stop Time Status Last Admin Dose Admin Etomidate 20 mg ONCE ONCE IV 12/06/17 14:00 12/06/17 14:01 DC 12/06/17 14:25 20 MG Fentanyl Citrate 50 mcg ONCE ONCE IVP 12/06/17 14:30 12/06/17 14:31 DC 12/06/17 14:25 50 MCG Furosemide 40 mg ONCE ONCE IVP 12/06/17 14:00 12/06/17 14:01 DC 12/06/17 14:26 40 MG Midazolam HCl 3 mg PRN ONCE IVP 12/06/17 14:30 12/06/17 14:31 DC 12/06/17 14:25 3 MG Succinylcholine Chloride 100 mg ONCE ONCE INJ 12/06/17 14:00 12/06/17 14:01 DC 12/06/17 14:25 100 MG Vital Signs/I&O 12/06/17 14:26 Pulse 116 Resp 26 Pulse Ox 98 FiO2 100 Capillary Refill : Diagnostic Imaging Diagonstic Imaging: Xray Plain Films/CT/US/NM/MRI: chest Comments NAME: DAREN BARRIOS JR [facility] REC#: [id number] PT STATUS: REG ER : 1960 PHYSICIAN: BREONNA JUNIOR APRN ADMIT DATE: 12/06/17/ER Draft Date of Exam:12/06/17 CHEST 1 VIEW, AP/PA ONLY EXAMINATION: Portable erect AP chest at 2:07 p.m. INDICATION: Respiratory distress. FINDINGS: The cardiomegaly noted on the prior exam performed earlier today at 4:31 a.m. is again evident and no different. However, in the interval since the prior exam, the interstitial densities in both lungs have become more prominent. This does suggest that there is now an element of pulmonary edema present. There is still no sign of pneumonia or of a significant pleural effusion. The mediastinum is not widened. The osseous structures are intact. In the interval since the prior exam, the patient has been intubated. The ET tube tip overlies the cervicothoracic junction. I would recommend the tip be advanced another 4 cm. There is also now an NG line in place. The tip of the NG line is not visualized, but it does extend below the diaphragm. IMPRESSION: 1. The appearance of the chest has worsened since the prior study as pulmonary edema has developed. A followup exam would be recommended for continued study. 2. The patient has been intubated, but the ET tube tip appears to lie above the thoracic inlet. Recommendations as above. 3. These results were discussed with Breonna Junior APRN at the time of this dictation. CRITICAL FINDING Dictated on workstation # [id number] Dict: 12/06/17 1416 Trans: 12/06/17 1427 [id number] Interpreted by: SUELLEN PENA MD Electronically signed by: NAME: DAREN BARRIOS JR [facility] REC#: [id number] PT STATUS: REG ER : 1960 PHYSICIAN: BREONNA JUNIOR APRN ADMIT DATE: 12/06/17/ER Draft Date of Exam:12/06/17 CHEST 1 VIEW, AP/PA ONLY Portable supine chest at 2:27 p.m. INDICATION: Respiratory distress. FINDINGS: In the interval since the exam performed earlier today at 2:07 PM, the ET tube tip has been advanced. The tip now overlies the thoracic inlet and appears to be in good position. The overall appearance of the chest itself has not changed significantly. There is still cardiomegaly and diffuse alveolar/interstitial pulmonary infiltrates bilaterally. IMPRESSION: 1. The ET tube tip has been advanced in the interval since the prior exam and now overlies the thoracic inlet. 2. The overall appearance of the chest is otherwise stable. Dictated on workstation # [id number] Dict: 12/06/17 1438 Trans: 12/06/17 1446 DENISE [id number] Interpreted by: SUELLEN PENA MD Electronically signed by: Departure Communication (Admissions) Time/Spoke to Admitting Phy: 14:[address] Sebastian who agrees to admit. Repeat chest x-ray morning. I also spoke with Dr. Bueno on-call for cardiology. Would like to repeat the echocardiogram. 1401-given the respiratory failure/respiratory distress failure to improve on nonrebreather and quickly deteriorating mental status I decided to intubate as he does not respond to verbal or painful stimuli and as such is unable to maintain his own airway.. Suspect flash pulmonary edema based on clinical exam. preoxygenated him with assisted bag valve mask ventilations, etomidate and succinylcholine given and intubated with a size 7.5 endotracheal tube 22 cm at the teeth. He was given a 40 mg bolus of Lasix due to suspected flash pulmonary edema as there was a copious amount of frothy material in the oropharynx, hypertension sudden onset dyspnea/hypoxia and distended jugular veins. 1419- Dr. Pena called to report coronary edema on the chest x-ray and that the endotracheal tube needs to be advanced about 4 cm. We will do this. RT is doing that at this time. Blood pressure is now 92 systolic. Because of that I have stopped the order for the nitroglycerin drip, we'll discontinue the propofol drip and switched to Versed and fentanyl drip. 1455-heart rate down to 101 sinus. Oxygen saturation 98%. The endotracheal tube has been advanced and the repeat x-ray confirms this. Propofol drip was off, he is currently being sedated with fentanyl and Versed pushes while pharmacy mixes up a drip. We had about 600 mL of clear yellow urine output at this time. 1510- Dr. Bueno is here in the emergency room. The echocardiogram has been repeated. It is not an ideal echocardiogram he states that the ejection fraction is still about 50-55% with a normal BNP. He does not feel this is cardiac and although the patient did have a CT angios this morning, since he has acutely decompensated would consider a large saddle pulmonary embolus in the differential and feels it warranted to repeat a CT angio chest. I'll order this. Impression Primary Impression: Flash pulmonary edema Additional Impression: Acute respiratory failure Disposition: ADMITTED INPATIENT Condition: Critical Admissions Decision to Admit Reason: Admit from ER (General) Decision to Admit/Date: Dec 06, 2017 Time/Decision to Admit Time: 14:01 Departure-Patient Inst. Referrals: SUZE SINGLETON MD (PCP/Family) Primary Care Physician BREONNA JUNIOR APRN Dec 06, 2017 14:02
[2017-12-06 14:03] LABS: BASOPHILS # (AUTO) 0.1 10^3/uL (0.0-0.1); BASOPHILS % (AUTO) 0 % (0-10); EOSINOPHILS # (AUTO) 0.3 10^3/uL (0.0-0.3); EOSINOPHILS % (AUTO) 2 % (0-10); HEMATOCRIT 43 % (40-54); HEMOGLOBIN 14.8 G/DL (13.3-17.7); LYMPHOCYTES % (AUTO) 20 % (12-44); MEAN CORPUSCULAR HEMOGLOBIN 31 PG (25-34); MEAN CORPUSCULAR HGB CONC 35 G/DL (32-36); MEAN CORPUSCULAR VOLUME 90 FL (80-99); MEAN PLATELET VOLUME 10.2 FL (7.4-10.4); MONOCYTES # (AUTO) 1.4 X 10^3 (0.0-1.0); MONOCYTES % (AUTO) 9 % (0-12); NEUTROPHILS # (AUTO) 10.3 X 10^3 (1.8-7.8); NEUTROPHILS % (AUTO) 68 % (42-75); PLATELET COUNT 375 10^3/uL (130-400); RED BLOOD COUNT 4.79 10^6/uL (4.35-5.85); RED CELL DISTRIBUTION WIDTH 13.9 % (10.0-14.5)
[2017-12-06 14:14] LABS: AMPHETAMINE SCREEN, URINE NEGATIVE (NEGATIVE); BARBITURATE SCREEN URINE NEGATIVE (NEGATIVE); BENZODIAZEPINES SCREEN URINE NEGATIVE (NEGATIVE); CANNABINOID SCREEN, URINE NEGATIVE (NEGATIVE); COCAINE SCREEN URINE NEGATIVE (NEGATIVE); METHADONE STAT NEGATIVE (NEGATIVE); METHAMPHETAMINE SCREEN URINE S NEGATIVE (NEGATIVE); OPIATE SCREEN URINE NEGATIVE (NEGATIVE); OXYCODONE STAT NEGATIVE (NEGATIVE); PROPOXYPHENE STAT NEGATIVE (NEGATIVE); TRICYCLIC ANTIDEPRESSANTS SCRE NEGATIVE (NEGATIVE)
[2017-12-06] MEDS ORDERED: NITRO DRIP 25000 MCG/D5W 250 ML IV SCH (14:15)
[2017-12-06] MEDS ORDERED: PROPOFOL INJECTION 50 ML IV SCH (14:15)
[2017-12-06 14:17] LABS: ALANINE AMINOTRANSFERASE 19 U/L (0-55); ALBUMIN 3.9 GM/DL (3.2-4.5); ALKALINE PHOSPHATASE 80 U/L (40-136); BILIRUBIN,TOTAL 0.6 MG/DL (0.1-1.0); BUN/CREATININE RATIO 7; CALCIUM 9.3 MG/DL (8.5-10.1); CARBON DIOXIDE 20 MMOL/L (21-32); CHLORIDE 104 MMOL/L (98-107); CREATININE SERUM 0.91 MG/DL (0.60-1.30); GFR ESTIMATED > 60; GLUCOSE 230 MG/DL (70-105); POTASSIUM 4.4 MMOL/L (3.6-5.0); SODIUM 137 MMOL/L (135-145)
[2017-12-06] MEDS ORDERED: MIDAZOLAM 5 MG/5 ML (VERSED) VIAL ONE (14:19)
[2017-12-06 14:20] LABS: BILIRUBIN,URINE NEGATIVE (NEGATIVE); CLARITY,URINE CLEAR; COLOR,URINE YELLOW; GLUCOSE, URINE (UA) 3+ (NEGATIVE); KETONES,URINE 2+ (NEGATIVE); LEUKOCYTE ESTERASE ,URINE NEGATIVE (NEGATIVE); NITRITE,URINE NEGATIVE (NEGATIVE); PH,URINE 5 (5-9); PROTEIN,URINE 4+ (NEGATIVE); UROBILINOGEN,URINE NORMAL (NORMAL)
[2017-12-06 14:20] LABS: ABG BASE EXCESS -3.9 MMOL/L (-2.5-2.5); ABG OXYGEN SATURATION 97 % (94-100); ABG PCO2 59 MMHG (35-45); ABG PO2 100 MMHG (79-93); ABG TCO2 24.4 MMOL/L (21.0-31.0)
[2017-12-06] MEDS ORDERED: fentaNYL INJECTION 100 MCG/2 ML AMP ONE (14:21)
[2017-12-06 14:23] LABS: ABG PH 7.22 (7.37-7.43); ALLENS TEST YES-POS; INSPIRED O2 100%; PATIENT TEMP 99.6; VENTILATOR YES
--- NOTE | 2017-12-06 14:28 | Diagnostic Imaging Report ---
EXAMINATION: Portable erect AP chest at 2:07 p.m. INDICATION: Respiratory distress. FINDINGS: The cardiomegaly noted on the prior exam performed earlier today at 4:31 a.m. is again evident and no different. However, in the interval since the prior exam, the interstitial densities in both lungs have become more prominent. This does suggest that there is now an element of pulmonary edema present. There is still no sign of pneumonia or of a significant pleural effusion. The mediastinum is not widened. The osseous structures are intact. In the interval since the prior exam, the patient has been intubated. The ET tube tip overlies the cervicothoracic junction. I would recommend the tip be advanced another 4 cm. There is also now an NG line in place. The tip of the NG line is not visualized, but it does extend below the diaphragm. IMPRESSION: 1. The appearance of the chest has worsened since the prior study as pulmonary edema has developed. A followup exam would be recommended for continued study. 2. The patient has been intubated, but the ET tube tip appears to lie above the thoracic inlet. Recommendations as above. 3. These results were discussed with Nelson Junior APRN at the time of this dictation. CRITICAL FINDING Dictated by: Dictated on workstation # [id number]
[2017-12-06 14:29] LABS: BACTERIA,URINE NEGATIVE /HPF; RBC,URINE 0-2 /HPF; WBC,URINE RARE /HPF
[2017-12-06] MEDS ORDERED: MIDAZOLAM INJECTION FOR DRIPS 50 MG in NS (IVPB) 90 ML IV SCH (14:30)
[2017-12-06] MEDS ORDERED: fentaNYL INJECTION 1,250 MCG in NS (IVPB) 250 ML IV SCH (14:30)
[2017-12-06] MEDS ORDERED: fentaNYL INJECTION 100 MCG/2 ML AMP IVP ONE (14:30)
[2017-12-06] MEDS ORDERED: MIDAZOLAM 5 MG/5 ML (VERSED) VIAL IVP ONE (14:30)
[2017-12-06 14:37] LABS: NEUTROPHILS % (MANUAL) 63 %
[2017-12-06 14:38] LABS: BAND NEUTROPHILS 0 %; BASOPHILS % (MANUAL) 2 %; EOSINOPHILS % (MANUAL) 3 %; LYMPHOCYTES % (MANUAL) 20 %; MONOCYTES % (MANUAL) 5 %; RBC MORPH NORMAL; REACTIVE LYMPHOCYTES 7 %
--- NOTE | 2017-12-06 14:47 | Diagnostic Imaging Report ---
Portable supine chest at 2:27 p.m. INDICATION: Respiratory distress. FINDINGS: In the interval since the exam performed earlier today at 2:07 PM, the ET tube tip has been advanced. The tip now overlies the thoracic inlet and appears to be in good position. The overall appearance of the chest itself has not changed significantly. There is still cardiomegaly and diffuse alveolar/interstitial pulmonary infiltrates bilaterally. IMPRESSION: 1. The ET tube tip has been advanced in the interval since the prior exam and now overlies the thoracic inlet. 2. The overall appearance of the chest is otherwise stable. Dictated by: Dictated on workstation # [id number]
--- NOTE | 2017-12-06 14:48 | Consultation-Cardiology ---
HPI-Cardiology Cardiology Consultation: Date of Consultation 12/06/17 Date of Admission Attending Physician Admitting Physician Chin Sam MD Consulting Physician Denice BUENO MD HPI: Time Seen by a Provider: 14:48 Chief Complaint: Acute pulmonary edema This is a 57-year-old gentleman who was discharged this morning. He was admitted for shortness of breath. He is a patient of Dr. Ortega. Echocardiogram during his most recent admission showed normal LV function. He was brought to the ER by EMS. Sudden onset of shortness of breath when he went home. According to EMS he was significantly hypoxic and blood pressure was severely elevated. Initial blood pressure was 230/100 mmHg. When the patient got to the ER he became obtunded, tachypneic, tachycardic with severe respiratory distress. He was intubated and placed on a ventilator. I evaluated him urgently in the ER. Review of Systems-Cardiology Review of Systems Constitutional: As described under HPI; No As described under HPI, No no symptoms reported, No chills, No fever, No lightheadedness Eyes: No As described under HPI, No no symptoms reported, No blindness, No blurred vision, No contact lenses, No drainage, No decreased acuity, No foreign body sensation, No pain, No vision change Ears/Nose/Throat: No As described under HPI, No no symptoms reported, No chronic hearing loss, No ear discharge, No ear pain, No nasal drainage, No ulcerations Respiratory: No no symptoms reported; As described under HPI; No As described under HPI, No cough; orthopnea, shortness of breath; No SOB with excertion Cardiovascular: No no symptoms reported; As described under HPI; No As described under HPI, No chest pain, No edema, No irregular heart rate, No lightheadedness; palpitations Gastrointestinal: No no symptoms reported, No As described under HPI, No abdomen distended, No abdominal pain, No blood streaked bowels, No constipation , No diarrhea, No nausea, No vomiting, No stool coloration changes Genitourinary: No As described under HPI, No burning, No dysuria, No discharge , No frequency, No flank pain, No hematuria, No urgency Skin: No rash, No skin related problems, No ulcerations Psychiatric/Neurological: No anxiety, No depression, No seizure, No focal weakness, No syncope Hematologic: No bleeding abnormalities HCQ-[id number]-[id number] Hx Patient Social History 2nd Hand Smoke Exposure: No Immunizations Up To Date Tetanus Booster (TDap): Unknown Date of Pneumonia Vaccine: Aug 18, 2013 Past Medical History PMH As described under Assessment. Family Medical History Family History: Congestive heart failure 19 MOTHER Family history: Arthritis 19 FATHER 19 MOTHER Family history: Cardiovascular disease 19 FATHER 19 MOTHER Family history: Diabetes mellitus 19 FATHER Family history: Glaucoma 19 MOTHER Family history: Hypertension 19 FATHER 19 MOTHER Family history: Osteoporosis 19 MOTHER Hearing loss 19 MOTHER Heart disease 19 FATHER 19 MOTHER Myocardial infarction 19 FATHER 19 MOTHER (DBL BYPASS) Stroke 19 MOTHER (MICRO STROKES) No Family History of: Abdominal aortic aneurysm Paradise's disease Alcoholism Aphasia Cancer Cancer of colon Cataract Chest pain Congenital heart disease Cystic fibrosis Dementia Dysphagia Family history: Allergy Family history: Alzheimer's disease Family history: Asthma Family history: Breast disease Family history: Coronary thrombosis Family history: Gastrointestinal disease Family history: Thyroid disorder Headache Hereditary disease History of - anemia History of - disorder History of - respiratory disease History of drug abuse Human immunodeficiency virus (HIV) seropositivity Hypercholesterolemia Infertile Kidney disease Malignant neoplasm of lung Parkinson's disease Prostate cancer Psychotic disorder Seizure disorder Tuberculosis Visual impairment Allergies and Home Medications Allergies Coded Allergies: egg (Unverified Allergy, Mild, 02/05/14) EGG WHITES FROM UNCODED ALLERGIES Insulins (Unverified Allergy, Unknown, 06/06/15) Milk Containing Products (Unverified Allergy, Unknown, gas/rash, 07/19/13) Penicillins (Unverified Allergy, Unknown, 07/19/13) Sulfa (Sulfonamide Antibiotics) (Unverified Allergy, Unknown, 07/19/13) lidocaine (Verified Allergy, Unknown, 01/06/16) milk (Unverified Allergy, Unknown, gas/rash, 07/19/13) peanut (Unverified Allergy, Unknown, air closes off, 07/19/13) strawberry (Unverified Allergy, Unknown, airway closes off, 07/19/13) codeine (Unverified Adverse Reaction, Mild, NAUSEA, 02/03/14) Uncoded Allergies: ENVIRONMENTAL (Allergy, Unknown, 07/19/13) Home Medications Ascorbate Calcium 500 Mg Tablet, 500 MG PO DAILY, (Reported) Butterbur Root Extract 75 Mg Capsule, 75 MG PO DAILY, (Reported) Cholecalciferol (Vitamin D3) 1,000 Unit Capsule, 1,000 UNIT PO DAILY, (Reported) Cyanocobalamin (Vitamin B-12) 1,000 Mcg Capsule, 1,000 MCG PO DAILY, (Reported) Fexofenadine HCl 180 Mg Tablet, 180 MG PO DAILY, (Reported) Folic Acid 0.8 Mg Capsule, 0.8 MG PO DAILY, (Reported) Magnesium Oxide 250 Mg Tablet, 250 MG PO DAILY, (Reported) Multivitamin 1 Each Tablet, 1 TAB PO DAILY, (Reported) Omega3/Dha/Epa/Fish Oil/Vit D3 1 Each Capsule, 1 CAP PO DAILY, (Reported) Omeprazole Magnesium 20 Mg Tablet.dr, 20 MG PO DAILY, (Reported) Pioglitazone HCl 30 Mg Tablet, 30 MG PO DAILY, (Reported) [Gymnema Sylvestris] , 400 MG PO DAILY, (Reported) Patient Home Medication List Home Medication List Reviewed: Yes Physical Exam-Cardiology Physical Exam Vital Signs/I&O 12/07/17 12/07/17 12/07/17 12/07/17 00:00 00:00 00:00 00:07 Temp 98.0 Pulse 96 98 Resp 26 15 B/P (MAP) 124/64 (84) Pulse Ox 95 96 O2 Delivery Mechanical Ventilator Mechanical Ventilator O2 Flow Rate 40.00 FiO2 40 40 12/07/17 12/07/17 12/07/17 12/07/17 01:00 01:00 01:53 02:00 Pulse 94 94 99 97 Resp 22 19 22 B/P (MAP) 126/66 (86) 134/69 (90) Pulse Ox 96 96 96 O2 Delivery Mechanical Ventilator Mechanical Ventilator O2 Flow Rate 40.00 40.00 FiO2 40 12/07/17 12/07/17 12/07/17 12/07/17 02:53 03:00 04:00 04:00 Temp 97.3 Pulse 95 96 Resp 30 B/P (MAP) 134/66 (88) Pulse Ox 96 O2 Delivery Mechanical Ventilator Mechanical Ventilator O2 Flow Rate 40.00 FiO2 40 12/07/17 12/07/17 12/07/17 12/07/17 04:00 04:19 05:00 06:00 Pulse 96 101 99 98 Resp 32 19 14 15 B/P (MAP) 120/63 (82) 135/76 (95) 136/76 (96) Pulse Ox 95 91 94 96 O2 Delivery Mechanical Ventilator Mechanical Ventilator Mechanical Ventilator O2 Flow Rate 40.00 40.00 40.00 FiO2 40 12/07/17 12/07/17 12/07/17 12/07/17 07:00 07:00 07:17 07:30 Pulse 93 93 87 Resp 17 15 B/P (MAP) 119/75 (90) Pulse Ox 96 96 O2 Delivery Mechanical Ventilator Mechanical Ventilator O2 Flow Rate 40.00 FiO2 40 40 12/07/17 12/07/17 12/07/17 12/07/17 08:00 08:00 09:00 09:14 Temp 97.2 Pulse 80 75 75 Resp 15 14 14 B/P (MAP) 117/68 (84) 120/70 (87) Pulse Ox 94 95 95 O2 Delivery Mechanical Ventilator Mechanical Ventilator O2 Flow Rate 40.00 40.00 FiO2 40 12/07/17 12/07/17 12/07/17 12/07/17 10:00 10:31 11:00 11:36 Pulse 76 76 76 Resp 14 16 14 B/P (MAP) 124/72 (89) 123/72 (89) Pulse Ox 95 95 95 O2 Delivery Mechanical Ventilator Mechanical Ventilator Mechanical Ventilator O2 Flow Rate 40.00 40.00 FiO2 40 40 12/07/17 00:00 Intake Total 123 ml Output Total 2475 ml Balance -2352 ml Capillary Refill : Constitutional: apparent distress HEENT: No PERRL, No normal ENT inspection, No TMs normal, No pharynx normal, No scleral icterus (R), No scleral icterus (L), No pale conjunctivae (R), No pale conjunctivae (L), No photophobia, No TM abnormal (R), No TM abnormal (L), No pharyngeal erythema, No tonsillar exudate, No other, No discharge, No EOMI, No hearing is well preserved, No hard of hearing, No oral hygience is good, No ulceration, No xanthelasmas are seen Neck: No non-tender, No full range of motion, No supple, No normal inspection, No carotid bruit, No limited range of motion, No lymphadenopathy (R), No lymphadenopathy (L), No tender lateral, No tender midline, No thyromegaly, No other, No carotid pulses are 2 + bilaterally, No with good upstrokes Respiratory: respiratory distress, chest is bilaterally symmetric, crackles Cardiovascular: regular rate-rhythm, tachycardia, S1 and S2 Gastrointestinal: No tender, No soft, No round, No distended, No pulsatile mass , No organomegaly, No guarding, No rebound, No tenderness, No hernia, No mass, No audible bowel sounds, No abnormal bowel sounds, No abdominal bruits, No spleenomegaly, No other Rectal: deferred Extremities: No normal range of motion, No non-tender, No normal inspection, No pedal edema, No calf tenderness, No normal capillary refill, No pelvis stable , No calf tenderness, No inflammation, No pedal edema, No slow capillary refill , No swelling, No other, No abrasion, No clubbing, No cyanosis, No ecchymosis, No laceration, No no lower extremity edema bilateral, No significant edema, No tenderness, No wound Neurologic/Psychiatric: other (intubated and ventilated.) Skin: No normal color, No warm/dry, No cyanosis, No cool, No diaphoresis, No damp, No ecchymosis, No jaundice, No mottled, No pallor, No rash, No tattoos/ piercings, No ulcerations, No rash on exposed areas, No ulcerations on exposed areas, No other Data Review Labs Laboratory Tests 12/06/17 13:42: White Blood Count 15.0H, Red Blood Count 4.79, Hemoglobin 14.8#, Hematocrit 43, Mean Corpuscular Volume 90, Mean Corpuscular Hemoglobin 31, Mean Corpuscular Hemoglobin Concent 35, Red Cell Distribution Width 13.9, Platelet Count 375, Mean Platelet Volume 10.2, Neutrophils (%) (Auto) 68, Lymphocytes (%) (Auto) 20 , Monocytes (%) (Auto) 9, Eosinophils (%) (Auto) 2, Basophils (%) (Auto) 0, Neutrophils # (Auto) 10.3H, Lymphocytes # (Auto) 3.0, Monocytes # (Auto) 1.4H, Eosinophils # (Auto) 0.3, Basophils # (Auto) 0.1, Neutrophils % (Manual) 63, Lymphocytes % (Manual) 20, Monocytes % (Manual) 5, Eosinophils % (Manual) 3, Basophils % (Manual) 2, Band Neutrophils 0, Reactive Lymphocytes 7, Blood Morphology Comment NORMAL, Sodium Level 137, Potassium Level 4.4, Chloride Level 104, Carbon Dioxide Level 20L, Anion Gap 13, Blood Urea Nitrogen 6L, Creatinine 0.91, Estimat Glomerular Filtration Rate > 60, BUN/Creatinine Ratio 7 , Glucose Level 230H, Calcium Level 9.3, Corrected Calcium 9.4, Total Bilirubin 0.6, Aspartate Amino Transf (AST/SGOT) 21, Alanine Aminotransferase (ALT/SGPT) 19, Alkaline Phosphatase 80, Troponin I < 0.30, B-Type Natriuretic Peptide 101.9H, Total Protein 8.0, Albumin 3.9 12/06/17 13:51: Urine Opiates Screen NEGATIVE, Urine Oxycodone Screen NEGATIVE, Urine Methadone Screen NEGATIVE, Urine Propoxyphene Screen NEGATIVE, Urine Barbiturates Screen NEGATIVE, Ur Tricyclic Antidepressants Screen NEGATIVE, Urine Phencyclidine Screen NEGATIVE, Urine Amphetamines Screen NEGATIVE, Urine Methamphetamines Screen NEGATIVE, Urine Benzodiazepines Screen NEGATIVE, Urine Cocaine Screen NEGATIVE, Urine Cannabinoids Screen NEGATIVE 12/06/17 14:12: Blood Gas Puncture Site LT RAD, Blood Gas Patient Temperature 99.6, Arterial Blood pH 7.22*L, Arterial Blood Partial Pressure CO2 59H, Arterial Blood Partial Pressure O2 100H, Arterial Blood HCO3 23, Arterial Blood Total CO2 24.4 , Arterial Blood Oxygen Saturation 97, Arterial Blood Base Excess -3.9L, Kush Test YES-POS, Blood Gas Ventilator Setting YES, Blood Gas Inspired Oxygen 100% 12/06/17 14:15: Urine Color YELLOW, Urine Clarity CLEAR, Urine pH 5, Urine Specific [place] 1.010L, Urine Protein 4+, Urine Glucose (UA) 3+H, Urine Ketones 2+H, Urine Nitrite NEGATIVE, Urine Bilirubin NEGATIVE, Urine Urobilinogen NORMAL, Urine Leukocyte Esterase NEGATIVE, Urine RBC (Auto) 3+H, Urine RBC 0-2, Urine WBC RARE , Urine Squamous Epithelial Cells NONE, Urine Crystals NONE, Urine Bacteria NEGATIVE, Urine Casts NONE, Urine Mucus NEGATIVE, Urine Culture Indicated NO, Lactic Acid Level 0.84 12/06/17 17:06: Glucometer 239H 12/06/17 18:25: Blood Gas Puncture Site RT BRACH, Blood Gas Patient Temperature 96.5, Arterial Blood pH 7.38, Arterial Blood Partial Pressure CO2 41, Arterial Blood Partial Pressure O2 64L, Arterial Blood HCO3 24, Arterial Blood Total CO2 25.3, Arterial Blood Oxygen Saturation 95, Arterial Blood Base Excess -0.6, Kush Test YES-POS, Blood Gas Ventilator Setting YES, Blood Gas Inspired Oxygen 40% 12/07/17 01:04: Glucometer 167H 12/07/17 02:58: White Blood Count 7.7, Red Blood Count 3.92L, Hemoglobin 11.8#L, Hematocrit 36L , Mean Corpuscular Volume 91, Mean Corpuscular Hemoglobin 30, Mean Corpuscular Hemoglobin Concent 33, Red Cell Distribution Width 13.7, Platelet Count 264, Mean Platelet Volume 9.9, Neutrophils (%) (Auto) 73, Lymphocytes (%) (Auto) 17, Monocytes (%) (Auto) 9, Eosinophils (%) (Auto) 1, Basophils (%) (Auto) 0, Neutrophils # (Auto) 5.6, Lymphocytes # (Auto) 1.3, Monocytes # (Auto) 0.7, Eosinophils # (Auto) 0.1, Basophils # (Auto) 0.0, Sodium Level 139, Potassium Level 3.6, Chloride Level 107, Carbon Dioxide Level 22, Anion Gap 10, Blood Urea Nitrogen 10, Creatinine 0.85, Estimat Glomerular Filtration Rate > 60, BUN/ Creatinine Ratio 12, Glucose Level 164H, Calcium Level 8.7, Corrected Calcium 9.6, Phosphorus Level 3.5, Magnesium Level 1.7L, Total Bilirubin 0.6, Aspartate Amino Transf (AST/SGOT) 15, Alanine Aminotransferase (ALT/SGPT) 11, Alkaline Phosphatase 55, Total Protein 5.8L, Albumin 2.9L 12/07/17 03:31: Blood Gas Puncture Site RIGHT RADIAL, Blood Gas Patient Temperature 97.3, Arterial Blood pH 7.42, Arterial Blood Partial Pressure CO2 39, Arterial Blood Partial Pressure O2 62L, Arterial Blood HCO3 25, Arterial Blood Total CO2 26.5, Arterial Blood Oxygen Saturation 95, Arterial Blood Base Excess 1.1, Kush Test YES-POS, Blood Gas Ventilator Setting YES, Blood Gas Inspired Oxygen 40% ECG Impression ECG Initial ECG Rhythm: S.Tach Initial ECG Impression: Nonspecific Changes A/P-Cardiology Assessment/Admission Diagnosis Severe respiratory distress, Acute pulmonary edema, Severe hypertension, Plan Severe respiratory failure with hypoxia: Could be CHF, however BNP was borderline elevated and Urgent Echo showed Normal LVEF. RV enlargement was noted on Echo and discussed with Nelson Junior, ER FUR FINISHER and concern about PE discussed. Intubated and Ventilated. Given lasix with urine output as well. Severe hypertension - SBP > 200mmhg. Could be the cause of pulmonary edema. Renal artery stenosis needs to be ruled out. Recent admission for shortness of breath - COPD. Leukocytosis Critically ill patient. Time spent at the bedside, performing the echocardiogram and reviewing it with the physical therapist technician was 35 minutes. Thank you for your consultation. Please call me if you have any questions. Jesus Alberto Bueno MD, FACP, FACC, FSCAI, FHRS, CCDS Interventional Cardiology Cardiac Electrophysiology Vascular Medicine and Endovascular Interventions Denice BUENO MD Dec 06, 2017 2:48 pm
[2017-12-06] MEDS ORDERED: NS 250 ML (IVPB) BAG IV ONE (15:30)
[2017-12-06] MEDS ORDERED: IOHEXOL 350 MG/ML 150 ML (OMNIPAQUE 350) VIAL IV ONE (15:30)
[2017-12-06] MEDS ORDERED: fentaNYL 1,250 MCG/NS 250 ML DRIP IV SCH ×2 (15:45)
[2017-12-06] MEDS: MIDAZOLAM DRIP 50 MG/NS 90 ML IV SCH ×2 (16:05)
[2017-12-06] MEDS ORDERED: CATHETER FLUSH 10 ML SYR IV PRN (16:15)
[2017-12-06] MEDS ORDERED: FUROSEMIDE 40 MG/4 ML INJ (LASIX) IVP NR ×2 (16:45→19:00)
--- NOTE | 2017-12-06 16:45 | History & Physical-Hospitalist ---
History of Present Illness HPI/Chief Complaint Mr. Laird is a 57-year-old white male who had been discharged this morning after workup for shortness of breath. This morning and undergone CT angiography which revealed no ventral pulmonary embolism he did have reported increased interstitial markings also had some hilar adenopathy and one subcentimeter lower lobe pulmonary nodule reportedly about 7 mm in size for which follow-up CT in 6 months was recommended. He had no evidence for pneumonia. In talking with his nurse this morning he felt well upon discharge with no shortness of breath. Sometime around noon while sitting in his chair he became acutely short of breath without reported chest discomfort. He summoned emergency medical services were they found him to be in acute distress secondary to shortness of breath with O2 saturation was 60 percent range he was started on high flow oxygen and upon his arrival to the emergency room he was unresponsive on nonrebreather with an O2 saturation of 84 percent with significant tachypnea and shallow respirations. He was intubated and 40 mg of Lasix IV were given. Within 20 minutes per the emergency room physician's report he had over 600 mL of urine out. He was started on propofol but initial hypertension on presentation to the emergency room of in the 200/100 range digressed to hypotension with pressures in the 90 systolic range. Propofol was discontinued pressor support was not required and upon my arrival he was sedated on Versed had and fentanyl with blood pressures in the 110/70 range heart rate down to 80 and regular. He was sedated and unable to give any history. Date Seen 12/06/17 Time Seen by a Provider: 15:30 Attending Physician Garret Sebastian MD PCP Suze Singleton MD Referring Physician Date of Admission Dec 06, 2017 at 14:49 Home Medications & Allergies Home Medications Reviewed patient Home Medication Reconciliation performed by pharmacy medication reconciliations pm technician and/or nursing. Patients Allergies have been reviewed. Allergies Allergies Coded Allergies egg (Unverified Allergy, Mild, 02/05/14) EGG WHITES FROM UNCODED ALLERGIES Insulins (Unverified Allergy, Unknown, 06/06/15) Milk Containing Products (Unverified Allergy, Unknown, gas/rash, 07/19/13) Penicillins (Unverified Allergy, Unknown, 07/19/13) Sulfa (Sulfonamide Antibiotics) (Unverified Allergy, Unknown, 07/19/13) lidocaine (Verified Allergy, Unknown, 01/06/16) milk (Unverified Allergy, Unknown, gas/rash, 07/19/13) peanut (Unverified Allergy, Unknown, air closes off, 07/19/13) strawberry (Unverified Allergy, Unknown, airway closes off, 07/19/13) codeine (Unverified Adverse Reaction, Mild, NAUSEA, 02/03/14) Uncoded Allergies ENVIRONMENTAL ( Allergy, Unknown, 07/19/13) Past Qoqynkw-Pucurr-Ywmkht Hx Past Med/Social Hx: Reviewed and Corrections made Patient Social History Alcohol Use: Denies Use Number of Drinks Today: Alcohol Beverage of Choice: Wine Recreational Drug Use: No 2nd Hand Smoke Exposure: No Recent Foreign Travel: No Contact w/other who traveled: No Recent Hopitalizations: No Recent Infectious Disease Expo: No Immunizations Up To Date Tetanus Booster (TDap): Unknown Date of Pneumonia Vaccine: Aug 18, 2013 Seasonal Allergies Seasonal Allergies: No Past Medical History Surgeries: Abdominal, Gallbladder, Orthopedic, Tonsillectomy Currently Using CPAP: No Currently Using BIPAP: No Cardiac: High Cholesterol, Hypertension Neurological: Neuropathy Reproductive: No Sexually Transmitted Disease: No Gastrointestinal: Gastroesophageal Reflux, Polyps, Hiatal Hernia Musculoskeletal: Arthritis Endocrine: Diabetes, Non-Insulin dep Loss of Vision: Denies Hearing Impairment: Denies Psychosocial: Anxiety Skin/Integumentary: Psoriasis History of Blood Disorders: No Adverse Reaction to Blood Rust: No Family History Congestive heart failure 19 MOTHER Family history: Arthritis 19 FATHER 19 MOTHER Family history: Cardiovascular disease 19 FATHER 19 MOTHER Family history: Diabetes mellitus 19 FATHER Family history: Glaucoma 19 MOTHER Family history: Hypertension 19 FATHER 19 MOTHER Family history: Osteoporosis 19 MOTHER Hearing loss 19 MOTHER Heart disease 19 FATHER 19 MOTHER Myocardial infarction 19 FATHER 19 MOTHER (DBL BYPASS) Stroke 19 MOTHER (MICRO STROKES) No Family History of: Abdominal aortic aneurysm Sony's disease Alcoholism Aphasia Cancer Cancer of colon Cataract Chest pain Congenital heart disease Cystic fibrosis Dementia Dysphagia Family history: Allergy Family history: Alzheimer's disease Family history: Asthma Family history: Breast disease Family history: Coronary thrombosis Family history: Gastrointestinal disease Family history: Thyroid disorder Headache Hereditary disease History of - anemia History of - disorder History of - respiratory disease History of drug abuse Human immunodeficiency virus (HIV) seropositivity Hypercholesterolemia Infertile Kidney disease Malignant neoplasm of lung Parkinson's disease Prostate cancer Psychotic disorder Seizure disorder Tuberculosis Visual impairment Heart Disease, Diabetes, Hypertension Review of Systems Constitutional: see HPI Physical Exam Physical Exam Vital Signs Vital Signs - First Documented 12/06/17 12/06/17 12/06/17 13:38 14:26 16:00 Temp 98.3 Pulse 142 Resp 37 B/P (MAP) 211/124 (153) Pulse Ox 91 O2 Delivery Mechanical Ventilator O2 Flow Rate 60.00 FiO2 100 Capillary Refill : Less Than 3 Seconds Height, Weight, BMI Height: 5'8.00" Weight: 271lbs. 0.0oz. 122.299556dp; 41.2 BMI Method:Stated General Appearance: Obese, Other (Sedated on a vent in no acute distress) Neck: Normal Inspection (AVD was reported emergency room currently is resolved) Respiratory: Other (Coarse breath sounds diffusely) Cardiovascular: Regular Rate, Rhythm, No Edema, No Gallop, No JVD, No Murmur, Normal Peripheral Pulses, Other (Difficult to hear over coarse breath sounds.) Gastrointestinal: Normal Bowel Sounds, No Organomegaly, No Pulsatile Mass, Non Tender, Soft Extremity: Other (1+ bilateral pedal and pretibial edema) Skin: Normal Color, Warm/Dry, Other (No evidence for urticaria there is a fine erythematous papular eruption over the back of his right hand and forearm without significant edema and no induration is noted there is no increase in warmth.) Results Results/Procedures Labs Laboratory Tests 12/06/17 13:42 Patient resulted labs reviewed. Assessment/Plan Admission Diagnosis 1. Suspect pulmonary edema secondary to underlying diastolic dysfunction. Echo done several days ago revealed normal systolic function and no significant valvular abnormalities and no evidence for pulmonary hypertension. We will give another dose of IV Lasix later today repeat chest x-ray in the morning with likely extubation to follow. 2. Insulin-requiring diabetes sliding scale insulin and glucose monitoring for now. 3. No CT evidence for pneumonia leukocytosis likely stress related. Admission Status: Inpatient Order (span 2 midnights) Reason for Inpatient Admission: See admission diagnosis Assessment and Plan See admission diagnosis Critical Care Ventilator Management Copy Copies To 1: SUZE SINGLETON MD, MARK D MD Dec 06, 2017 16:45
[2017-12-06] MEDS: ENOXAPARIN 40 MG/0.4 ML (LOVENOX) SYR SC SCH (17:08)
[2017-12-06] MEDS: POTASSIUM CL 10MEQ/50ML IVPB 50 ML IV SCH ×3 (17:19→21:36)
--- NOTE | 2017-12-06 18:01 | Pulmonary Consultation ---
History of Present Illness History of Present Illness Date of Consultation 12/06/17 17:56 Time Seen by Provider: 17:56 Date of Admission History of Present Illness 57yo who was just discharged from our hospital today readmitted secondary to worsening SOB. Prior to discharge pt had CTA which was negative for PE. At discharge pt had no complaints of SOB. After discharge he was sitting in chair and became acutely SOB without CP. 911 was called when he was found to be in respiratory distress he was placed on a NRB secondary to Sp02 60%. Upon ED arrival pt was unresponsive on NRB and still had Sp02 of 84%. PT was emergently intubated and was given 40mg of Lasix. PT did have over 600cc of urine out put after lasix. His BP was also found to be 200/100 however after intubation he became hypotensive and was placed on Levophed. UDS is negative. Allergies and Home Medications Allergies Coded Allergies: egg (Unverified Allergy, Mild, 02/05/14) EGG WHITES FROM UNCODED ALLERGIES Insulins (Unverified Allergy, Unknown, 06/06/15) Milk Containing Products (Unverified Allergy, Unknown, gas/rash, 07/19/13) Penicillins (Unverified Allergy, Unknown, 07/19/13) Sulfa (Sulfonamide Antibiotics) (Unverified Allergy, Unknown, 07/19/13) lidocaine (Verified Allergy, Unknown, 01/06/16) milk (Unverified Allergy, Unknown, gas/rash, 07/19/13) peanut (Unverified Allergy, Unknown, air closes off, 07/19/13) strawberry (Unverified Allergy, Unknown, airway closes off, 07/19/13) codeine (Unverified Adverse Reaction, Mild, NAUSEA, 02/03/14) Uncoded Allergies: ENVIRONMENTAL (Allergy, Unknown, 07/19/13) Home Medications Ascorbate Calcium 500 Mg Tablet, 500 MG PO DAILY, (Reported) Butter[place] Root Extract 75 Mg Capsule, 75 MG PO DAILY, (Reported) Cholecalciferol (Vitamin D3) 1,000 Unit Capsule, 1,000 UNIT PO DAILY, (Reported) Cyanocobalamin (Vitamin B-12) 1,000 Mcg Capsule, 1,000 MCG PO DAILY, (Reported) Fexofenadine HCl 180 Mg Tablet, 180 MG PO DAILY, (Reported) Folic Acid 0.8 Mg Capsule, 0.8 MG PO DAILY, (Reported) Magnesium Oxide 250 Mg Tablet, 250 MG PO DAILY, (Reported) Multivitamin 1 Each Tablet, 1 TAB PO DAILY, (Reported) Omega3/Dha/Epa/Fish Oil/Vit D3 1 Each Capsule, 1 CAP PO DAILY, (Reported) Omeprazole Magnesium 20 Mg Tablet.dr, 20 MG PO DAILY, (Reported) Pioglitazone HCl 30 Mg Tablet, 30 MG PO DAILY, (Reported) [Gymnema Sylvestris] , 400 MG PO DAILY, (Reported) Past Yrhqqui-Thcflx-Doavff Hx Past Med/Social Hx: Reviewed and Corrections made Patient Social History Alcohol Use: Denies Use Number of Drinks Today: Alcohol Beverage of Choice: Wine Recreational Drug Use: No Smoking Status: Unknown if Ever Smoked 2nd Hand Smoke Exposure: No Recent Foreign Travel: No Contact w/Someone Who Travel: No Recent Infectious Disease Expo: No Recent Hopitalizations: No Physical Abuse: No Sexual Abuse: No Immunizations Up To Date Tetanus Booster (TDap): Unknown Date of Pneumonia Vaccine: Aug 18, 2013 Seasonal Allergies Seasonal Allergies: No Past Medical History Surgeries: Yes (CARPAL TUNNEL RELASE SX, LEFT HAND SURGERY, L FOOT, upper/ lower gi scope) Abdominal, Gallbladder, Orthopedic, Tonsillectomy Respiratory: Yes (ASTHMA/CHRONIC BRONCHITIS/INHALER USE NEEDED) Asthma Currently Using CPAP: No Currently Using BIPAP: No Cardiac: Yes High Cholesterol, Hypertension Neurological: No Neuropathy Reproductive Disorders: No Sexually Transmitted Disease: No Genitourinary: No Gastrointestinal: Yes Gastroesophageal Reflux, Polyps, Hiatal Hernia Musculoskeletal: Yes (Left foot sx) Arthritis Endocrine: Yes Diabetes, Non-Insulin dep HEENT: No Loss of Vision: Denies Hearing Impairment: Denies Cancer: No Psychosocial: Yes Anxiety Integumentary: Yes Psoriasis Blood Disorders: No Adverse Reaction/Blood Tranf: No Family Medical History Congestive heart failure 19 MOTHER Family history: Arthritis 19 FATHER 19 MOTHER Family history: Cardiovascular disease 19 FATHER 19 MOTHER Family history: Diabetes mellitus 19 FATHER Family history: Glaucoma 19 MOTHER Family history: Hypertension 19 FATHER 19 MOTHER Family history: Osteoporosis 19 MOTHER Hearing loss 19 MOTHER Heart disease 19 FATHER 19 MOTHER Myocardial infarction 19 FATHER 19 MOTHER (DBL BYPASS) Stroke 19 MOTHER (MICRO STROKES) No Family History of: Abdominal aortic aneurysm [place]'s disease Alcoholism Aphasia Cancer Cancer of colon Cataract Chest pain Congenital heart disease Cystic fibrosis Dementia Dysphagia Family history: Allergy Family history: Alzheimer's disease Family history: Asthma Family history: Breast disease Family history: Coronary thrombosis Family history: Gastrointestinal disease Family history: Thyroid disorder Headache Hereditary disease History of - anemia History of - disorder History of - respiratory disease History of drug abuse Human immunodeficiency virus (HIV) seropositivity Hypercholesterolemia Infertile Kidney disease Malignant neoplasm of lung Parkinson's disease Prostate cancer Psychotic disorder Seizure disorder Tuberculosis Visual impairment Heart Disease, Diabetes, Hypertension Sepsis Event Evaluation Height, Weight, BMI Height: 5'8.00" Weight: 271lbs. 0.0oz. 122.191049ba; 41.2 BMI Method:Stated Exam Exam Vital Signs Date Time Temp Pulse Resp B/P (MAP) Pulse Ox O2 Delivery O2 Flow Rate FiO2 12/06/17 17:21 98.0 96 Mechanical Ventilator 40.00 12/06/17 17:13 40 12/06/17 17:00 97 14 126/75 (92) 98 Mechanical Ventilator 50.00 12/06/17 16:33 98 Mechanical Ventilator 50.00 12/06/17 16:26 108 24 98 50 12/06/17 16:05 98 124/75 12/06/17 16:00 98 16 121/76 (91) 98 Mechanical Ventilator 60.00 12/06/17 16:00 98 Mechanical Ventilator 60.00 12/06/17 15:36 108 29 100 70 12/06/17 15:30 Mechanical Ventilator 70 12/06/17 14:30 98.8 99 16 106/75 (85) 100 12/06/17 14:26 116 26 98 100 12/06/17 13:38 98.3 142 37 211/124 (153) 91 Height & Weight Height: 5'8.00" Weight: 271lbs. 0.0oz. 122.452177dj; 41.2 BMI Method:Stated General Appearance: Obese, Other (Sedated on a vent in no acute distress) Neck: Normal Inspection (AVD was reported emergency room currently is resolved) Respiratory: Other (Coarse breath sounds diffusely) Cardiovascular: Regular Rate, Rhythm, No Edema, No Gallop, No JVD, No Murmur, Normal Peripheral Pulses, Other (Difficult to hear over coarse breath sounds.) Capillary Refill: Less Than 3 Seconds Gastrointestinal: normal bowel sounds, non tender, soft Extremity: Other (1+ bilateral pedal and pretibial edema) Skin: Normal Color, Warm/Dry, Other (No evidence for urticaria there is a fine erythematous papular eruption over the back of his right hand and forearm without significant edema and no induration is noted there is no increase in warmth.) Results Lab Laboratory Tests 12/06/17 13:42 Assessment/Plan Assessment/Plan Hypoxia with acute on chronic respiratory failure with recurrent hospitalizations -PT needs a vent to mask -I will arrange for this prior to discharge -CT of chest earlier today was negative for PE. Dopplers were also negative for DVT Diastolic CHF -Lasix bilateral pleural effussions/Pulmonary edema -doubt PNA -S/p Lasix Lung nodule -will repeat CT scan as out patient in 6 mo. GIULIANA WRANER DO Dec 06, 2017 18:01
[2017-12-06 18:34] LABS: ABG BASE EXCESS -0.6 MMOL/L (-2.5-2.5); ABG OXYGEN SATURATION 95 % (94-100); ABG PCO2 41 MMHG (35-45); ABG PH 7.38 (7.37-7.43); ABG PO2 64 MMHG (79-93); ABG TCO2 25.3 MMOL/L (21.0-31.0)
[2017-12-06 18:37] LABS: ALLENS TEST YES-POS; INSPIRED O2 40%; PATIENT TEMP 96.5; VENTILATOR YES
[2017-12-06] MEDS ORDERED: CEFEPIME INJECTION 1,000 MG in NS (IVPB) 50 ML IV SCH (21:00)
[2017-12-06] MEDS ORDERED: inSUlin ASPART (NovoLOG) 1 UNIT/0.01 ML (CHARGE PER UNIT) SC SCH (21:00)
[2017-12-06] MEDS: CATHETER FLUSH 10 ML SYR IV SCH (23:26)
[2017-12-07] VITALS (32 sets, daily range): BP systolic 117–168; BP diastolic 63–91
[2017-12-07] MEDS: inSUlin ASPART (NovoLOG) 1 UNIT/0.01 ML (CHARGE PER UNIT) SC SCH ×4 (00:01→18:34)
[2017-12-07] MEDS ORDERED: NS (IVPB) 100 ML ONE (02:47)
[2017-12-07] MEDS ORDERED: MIDAZOLAM FOR DRIPS 10 MG/2 ML VIAL ONE (02:47)
[2017-12-07] MEDS: MIDAZOLAM DRIP 50 MG/NS 90 ML IV SCH ×2 (02:53)
[2017-12-07 03:44] LABS: ABG BASE EXCESS 1.1 MMOL/L (-2.5-2.5); ABG OXYGEN SATURATION 95 % (94-100); ABG PCO2 39 MMHG (35-45); ABG PH 7.42 (7.37-7.43); ABG PO2 62 MMHG (79-93); ABG TCO2 26.5 MMOL/L (21.0-31.0)
[2017-12-07 03:45] LABS: ALLENS TEST YES-POS; INSPIRED O2 40%; PATIENT TEMP 97.3; VENTILATOR YES
[2017-12-07 03:48] LABS: BASOPHILS % (AUTO) 0 % (0-10); EOSINOPHILS # (AUTO) 0.1 10^3/uL (0.0-0.3); EOSINOPHILS % (AUTO) 1 % (0-10); HEMATOCRIT 36 % (40-54); HEMOGLOBIN 11.8 G/DL (13.3-17.7); LYMPHOCYTES # (AUTO) 1.3 X 10^3 (1.0-4.0); LYMPHOCYTES % (AUTO) 17 % (12-44); MEAN CORPUSCULAR HEMOGLOBIN 30 PG (25-34); MEAN CORPUSCULAR HGB CONC 33 G/DL (32-36); MEAN CORPUSCULAR VOLUME 91 FL (80-99); MEAN PLATELET VOLUME 9.9 FL (7.4-10.4); MONOCYTES # (AUTO) 0.7 X 10^3 (0.0-1.0); MONOCYTES % (AUTO) 9 % (0-12); NEUTROPHILS # (AUTO) 5.6 X 10^3 (1.8-7.8); NEUTROPHILS % (AUTO) 73 % (42-75); PLATELET COUNT 264 10^3/uL (130-400); RED BLOOD COUNT 3.92 10^6/uL (4.35-5.85); RED CELL DISTRIBUTION WIDTH 13.7 % (10.0-14.5); WHITE BLOOD COUNT 7.7 10^3/uL (4.3-11.0)
[2017-12-07 04:14] LABS: ALANINE AMINOTRANSFERASE 11 U/L (0-55); ALBUMIN 2.9 GM/DL (3.2-4.5); ALKALINE PHOSPHATASE 55 U/L (40-136); BILIRUBIN,TOTAL 0.6 MG/DL (0.1-1.0); BUN/CREATININE RATIO 12; CALCIUM 8.7 MG/DL (8.5-10.1); CARBON DIOXIDE 22 MMOL/L (21-32); CHLORIDE 107 MMOL/L (98-107); CREATININE SERUM 0.85 MG/DL (0.60-1.30); GFR ESTIMATED > 60; GLUCOSE 164 MG/DL (70-105); MAGNESIUM 1.7 MG/DL (1.8-2.4); PHOSPHORUS 3.5 MG/DL (2.3-4.7); POTASSIUM 3.6 MMOL/L (3.6-5.0); SODIUM 139 MMOL/L (135-145); TOTAL PROTEIN 5.8 GM/DL (6.4-8.2)
[2017-12-07] MEDS: POTASSIUM CL 10MEQ/50ML IVPB 50 ML IV SCH ×6 (04:38→05:56)
[2017-12-07] MEDS: ENOXAPARIN 40 MG/0.4 ML (LOVENOX) SYR SC SCH ×2 (04:40→18:34)
--- NOTE | 2017-12-07 05:01 | Pulmonary Progress Note ---
Subjective Time Seen by a Provider: 05:06 Subjective/Events-last exam Pt sedated on ventilator. Sepsis Event Evaluation Height, Weight, BMI Height: 5'8.00" Weight: 271lbs. 0.0oz. 122.165345iz; 41.2 BMI Method:Stated Focused Exam Lactate Level 12/06/17 14:15: Lactic Acid Level 0.84 Exam Exam Vital Signs Date Time Temp Pulse Resp B/P (MAP) Pulse Ox O2 Delivery O2 Flow Rate FiO2 12/07/17 04:19 101 19 91 40 12/07/17 04:00 96 32 120/63 (82) 95 Mechanical Ventilator 40.00 12/07/17 04:00 Mechanical Ventilator 40 12/07/17 04:00 97.3 12/07/17 03:00 96 30 134/66 (88) 96 Mechanical Ventilator 40.00 12/07/17 02:53 95 12/07/17 02:00 97 22 134/69 (90) 96 Mechanical Ventilator 40.00 12/07/17 01:53 99 19 96 40 12/07/17 01:00 94 22 126/66 (86) 96 Mechanical Ventilator 40.00 12/07/17 01:00 94 12/07/17 00:07 98 15 96 40 12/07/17 00:00 96 26 124/64 (84) 95 Mechanical Ventilator 40.00 12/07/17 00:00 98.0 12/07/17 00:00 Mechanical Ventilator 40 12/06/17 23:00 98 16 132/69 (90) 95 Mechanical Ventilator 40.00 12/06/17 22:18 98 17 96 40 12/06/17 22:00 98 16 128/68 (88) 95 Mechanical Ventilator 40.00 12/06/17 21:00 98 10 125/69 (87) 96 Mechanical Ventilator 40.00 12/06/17 20:20 101 15 97 40 12/06/17 20:00 100 17 133/76 (95) 97 Mechanical Ventilator 40.00 12/06/17 20:00 98.3 Mechanical Ventilator 40.00 12/06/17 20:00 Mechanical Ventilator 40 12/06/17 19:00 101 12/06/17 19:00 101 15 143/83 (103) 97 Mechanical Ventilator 40.00 12/06/17 18:30 101 18 97 40 10/19/18 18:00 100 14 137/84 (101) 97 Mechanical Ventilator 40.00 12/06/17 17:21 98.0 96 Mechanical Ventilator 40.00 12/06/17 17:13 40 12/06/17 17:00 97 14 126/75 (92) 98 Mechanical Ventilator 50.00 12/06/17 16:33 98 Mechanical Ventilator 50.00 12/06/17 16:26 108 24 98 50 12/06/17 16:05 98 124/75 12/06/17 16:00 98 16 121/76 (91) 98 Mechanical Ventilator 60.00 12/06/17 16:00 98 Mechanical Ventilator 60.00 12/06/17 15:36 108 29 100 70 12/06/17 15:30 Mechanical Ventilator 70 12/06/17 14:30 98.8 99 16 106/75 (85) 100 12/06/17 14:26 116 26 98 100 12/06/17 13:38 98.3 142 37 211/124 (153) 91 I & O 12/07/17 07:00 Intake Total 123 ml Output Total 2675 ml Balance -2552 ml Height & Weight Height: 5'8.00" Weight: 271lbs. 0.0oz. 122.032563pq; 41.2 BMI Method:Stated General Appearance: Obese, Other (Sedated on a vent in no acute distress) Neck: Normal Inspection (AVD was reported emergency room currently is resolved) Respiratory: Other (Coarse breath sounds diffusely) Cardiovascular: Regular Rate, Rhythm, No Edema, No Gallop, No JVD, No Murmur, Normal Peripheral Pulses, Other (Difficult to hear over coarse breath sounds.) Capillary Refill: Less Than 3 Seconds Gastrointestinal: normal bowel sounds, non tender, soft Extremity: Other (1+ bilateral pedal and pretibial edema) Skin: Normal Color, Warm/Dry, Other (No evidence for urticaria there is a fine erythematous papular eruption over the back of his right hand and forearm without significant edema and no induration is noted there is no increase in warmth.) Results Lab Laboratory Tests 12/06/17 13:42 12/07/17 02:58 Assessment/Plan Assessment/Plan Hypoxia with acute on chronic respiratory failure with recurrent hospitalizations -Will attempt to wean vent today -D/c Versed, Fentanyl gtt. will start precedex gtt -PT needs a vent to mask -I will arrange for this prior to discharge -CT of chest earlier today was negative for PE. Dopplers were also negative for DVT Diastolic CHF -s/p Lasix bilateral pleural effussions/Pulmonary edema -doubt PNA -S/p Lasix Lung nodule -will repeat CT scan as out patient in 6 mo. GIULIANA WARNER DO Dec 07, 2017 05:01
[2017-12-07] MEDS: MAGNESIUM 1 GM/100 ML IVPB 100 ML IV SCH ×3 (05:33→05:56)
[2017-12-07] MEDS: KCL 20 MEQ TAB (K-DUR) PO SCH ×2 (05:33→05:34)
[2017-12-07] MEDS ORDERED: NS (IVPB) 50 ML ONE (05:39)
[2017-12-07] MEDS: DEXMEDETOMIDINE INJECTION 200 MCG in NS (IVPB) 50 ML IV SCH ×5 (05:50→14:04)
[2017-12-07] MEDS: CATHETER FLUSH 10 ML SYR IV SCH ×3 (06:08→22:00)
--- NOTE | 2017-12-07 11:36 | Progress Note-Hospitalist ---
Subjective HPI/CC On Admission Date Seen by Provider: Dec 07, 2017 Time Seen by Provider: 07:00 Mr. Laird is a 57-year-old white male who had been discharged this morning after workup for shortness of breath. This morning and undergone CT angiography which revealed no ventral pulmonary embolism he did have reported increased interstitial markings also had some hilar adenopathy and one subcentimeter lower lobe pulmonary nodule reportedly about 7 mm in size for which follow-up CT in 6 months was recommended. He had no evidence for pneumonia. In talking with his nurse this morning he felt well upon discharge with no shortness of breath. Sometime around noon while sitting in his chair he became acutely short of breath without reported chest discomfort. He summoned emergency medical services were they found him to be in acute distress secondary to shortness of breath with O2 saturation was 60 percent range he was started on high flow oxygen and upon his arrival to the emergency room he was unresponsive on nonrebreather with an O2 saturation of 84 percent with significant tachypnea and shallow respirations. He was intubated and 40 mg of Lasix IV were given. Within 20 minutes per the emergency room physician's report he had over 600 mL of urine out. He was started on propofol but initial hypertension on presentation to the emergency room of in the 200/100 range digressed to hypotension with pressures in the 90 systolic range. Propofol was discontinued pressor support was not required and upon my arrival he was sedated on Versed had and fentanyl with blood pressures in the 110/70 range heart rate down to 80 and regular. He was sedated and unable to give any history. Subjective/Events-last exam Patient sedated on vent no acute distress no problems from nursing staff. Focused Exam Lactate Level 12/06/17 14:15: Lactic Acid Level 0.84 Objective Exam Vital Signs Vital Signs Date Time Temp Pulse Resp B/P (MAP) Pulse Ox O2 Delivery O2 Flow Rate FiO2 12/07/17 10:31 76 16 95 40 12/07/17 07:30 Mechanical Ventilator 12/07/17 06:00 136/76 (96) 40.00 12/07/17 04:00 97.3 Capillary Refill : Less Than 3 Seconds General Appearance: No Apparent Distress, Obese Respiratory: Other (Few basilar rales much less congestion compared to yesterday anteriorly the patient's chest is clear) Cardiovascular: Regular Rate, Rhythm, No Edema, No Gallop, No JVD, No Murmur, Normal Peripheral Pulses Gastrointestinal: Normal Bowel Sounds, No Organomegaly, No Pulsatile Mass, Non Tender, Soft Extremity: Normal Capillary Refill, Normal Inspection, Other (Trace pedal edema symmetrical) Results/Procedures Lab Laboratory Tests 12/06/17 13:42 12/07/17 02:58 Patient resulted labs reviewed. Assessment/Plan Assessment and Plan Assess & Plan/Chief Complaint /P1. Pulmonary edema likely due to acute on chronic diastolic heart failure much improved. 2. Respiratory distress with hypoxia secondary to number 1 patient has been switched to Precedex with ventilatory weaning per Dr. Soto. 3. Type II diabetes mellitus reasonable blood sugar control on sliding scale insulin continue IV fluids and blood sugar monitoring. Critical Care Critical Care: Ventilator Management Clinical Quality Measures DVT/VTE Risk/Contraindication: Risk Factor Score Per Nursin RFS Level Per Nursing on Admit: 3=High EFREN SHARIF MD Dec 07, 2017 11:36
--- NOTE | 2017-12-07 12:01 | Cardiology Progress Note ---
Cardiology SOAP Progress Note Subjective: Intubated/ventilated Objective: I&O/Vital Signs 12/07/17 12/07/17 12/07/17 12/07/17 00:07 01:00 01:00 01:53 Pulse 98 94 94 99 Resp 15 22 19 B/P (MAP) 126/66 (86) Pulse Ox 96 96 96 O2 Delivery Mechanical Ventilator O2 Flow Rate 40.00 FiO2 40 40 12/07/17 12/07/17 12/07/17 12/07/17 02:00 02:53 03:00 04:00 Temp 97.3 Pulse 97 95 96 Resp 22 30 B/P (MAP) 134/69 (90) 134/66 (88) Pulse Ox 96 96 O2 Delivery Mechanical Ventilator Mechanical Ventilator O2 Flow Rate 40.00 40.00 12/07/17 12/07/17 12/07/17 12/07/17 04:00 04:00 04:19 05:00 Pulse 96 101 99 Resp 32 19 14 B/P (MAP) 120/63 (82) 135/76 (95) Pulse Ox 95 91 94 O2 Delivery Mechanical Ventilator Mechanical Ventilator Mechanical Ventilator O2 Flow Rate 40.00 40.00 FiO2 40 40 12/07/17 12/07/17 12/07/17 12/07/17 06:00 07:00 07:00 07:17 Pulse 98 93 93 87 Resp 15 17 15 B/P (MAP) 136/76 (96) 119/75 (90) Pulse Ox 96 96 96 O2 Delivery Mechanical Ventilator Mechanical Ventilator O2 Flow Rate 40.00 40.00 FiO2 40 12/07/17 12/07/17 12/07/17 12/07/17 07:30 08:00 08:00 09:00 Temp 97.2 Pulse 80 75 Resp 15 14 B/P (MAP) 117/68 (84) 120/70 (87) Pulse Ox 94 95 O2 Delivery Mechanical Ventilator Mechanical Ventilator Mechanical Ventilator O2 Flow Rate 40.00 40.00 FiO2 40 12/07/17 12/07/17 12/07/17 12/07/17 09:14 10:00 10:31 11:00 Pulse 75 76 76 76 Resp 14 14 16 14 B/P (MAP) 124/72 (89) 123/72 (89) Pulse Ox 95 95 95 95 O2 Delivery Mechanical Ventilator Mechanical Ventilator O2 Flow Rate 40.00 40.00 FiO2 40 40 12/07/17 11:36 O2 Delivery Mechanical Ventilator FiO2 40 12/07/17 00:00 Intake Total 123 ml Output Total 2475 ml Balance -2352 ml Weight (Pounds): 271 Weight (Ounces): 0.0 Weight (Calculated Kilograms): 122.223231 Constitutional: apparent distress Respiratory: respiratory distress, chest is bilaterally symmetric, crackles Cardiovascular: regular rate-rhythm, S1 and S2 Gastrointestional: No tender, No soft, No round, No distended, No pulsatile mass, No organomegaly, No guarding, No rebound, No tenderness, No hernia, No mass, No audible bowel sounds, No abnormal bowel sounds, No abdominal bruits, No spleenomegaly, No other Extremities: No normal range of motion, No non-tender, No normal inspection, No pedal edema, No calf tenderness, No normal capillary refill, No pelvis stable , No calf tenderness, No inflammation, No pedal edema, No slow capillary refill , No swelling, No other, No abrasion, No clubbing, No cyanosis, No ecchymosis, No laceration, No no lower extremity edema bilateral, No significant edema, No tenderness, No wound Neurologic/Psychiatric: other (intubated and ventilated.) Skin: No normal color, No warm/dry, No cyanosis, No cool, No diaphoresis, No damp, No ecchymosis, No jaundice, No mottled, No pallor, No rash, No tattoos/ piercings, No ulcerations, No rash on exposed areas, No ulcerations on exposed areas, No other Results/Procedures: Labs Laboratory Tests 12/06/17 13:42: White Blood Count 15.0H, Red Blood Count 4.79, Hemoglobin 14.8#, Hematocrit 43, Mean Corpuscular Volume 90, Mean Corpuscular Hemoglobin 31, Mean Corpuscular Hemoglobin Concent 35, Red Cell Distribution Width 13.9, Platelet Count 375, Mean Platelet Volume 10.2, Neutrophils (%) (Auto) 68, Lymphocytes (%) (Auto) 20 , Monocytes (%) (Auto) 9, Eosinophils (%) (Auto) 2, Basophils (%) (Auto) 0, Neutrophils # (Auto) 10.3H, Lymphocytes # (Auto) 3.0, Monocytes # (Auto) 1.4H, Eosinophils # (Auto) 0.3, Basophils # (Auto) 0.1, Neutrophils % (Manual) 63, Lymphocytes % (Manual) 20, Monocytes % (Manual) 5, Eosinophils % (Manual) 3, Basophils % (Manual) 2, Band Neutrophils 0, Reactive Lymphocytes 7, Blood Morphology Comment NORMAL, Sodium Level 137, Potassium Level 4.4, Chloride Level 104, Carbon Dioxide Level 20L, Anion Gap 13, Blood Urea Nitrogen 6L, Creatinine 0.91, Estimat Glomerular Filtration Rate > 60, BUN/Creatinine Ratio 7 , Glucose Level 230H, Calcium Level 9.3, Corrected Calcium 9.4, Total Bilirubin 0.6, Aspartate Amino Transf (AST/SGOT) 21, Alanine Aminotransferase (ALT/SGPT) 19, Alkaline Phosphatase 80, Troponin I < 0.30, B-Type Natriuretic Peptide 101.9H, Total Protein 8.0, Albumin 3.9 12/06/17 13:51: Urine Opiates Screen NEGATIVE, Urine Oxycodone Screen NEGATIVE, Urine Methadone Screen NEGATIVE, Urine Propoxyphene Screen NEGATIVE, Urine Barbiturates Screen NEGATIVE, Ur Tricyclic Antidepressants Screen NEGATIVE, Urine Phencyclidine Screen NEGATIVE, Urine Amphetamines Screen NEGATIVE, Urine Methamphetamines Screen NEGATIVE, Urine Benzodiazepines Screen NEGATIVE, Urine Cocaine Screen NEGATIVE, Urine Cannabinoids Screen NEGATIVE 12/06/17 14:12: Blood Gas Puncture Site LT RAD, Blood Gas Patient Temperature 99.6, Arterial Blood pH 7.22*L, Arterial Blood Partial Pressure CO2 59H, Arterial Blood Partial Pressure O2 100H, Arterial Blood HCO3 23, Arterial Blood Total CO2 24.4 , Arterial Blood Oxygen Saturation 97, Arterial Blood Base Excess -3.9L, Kush Test YES-POS, Blood Gas Ventilator Setting YES, Blood Gas Inspired Oxygen 100% 12/06/17 14:15: Urine Color YELLOW, Urine Clarity CLEAR, Urine pH 5, Urine Specific [place] 1.010L, Urine Protein 4+, Urine Glucose (UA) 3+H, Urine Ketones 2+H, Urine Nitrite NEGATIVE, Urine Bilirubin NEGATIVE, Urine Urobilinogen NORMAL, Urine Leukocyte Esterase NEGATIVE, Urine RBC (Auto) 3+H, Urine RBC 0-2, Urine WBC RARE , Urine Squamous Epithelial Cells NONE, Urine Crystals NONE, Urine Bacteria NEGATIVE, Urine Casts NONE, Urine Mucus NEGATIVE, Urine Culture Indicated NO, Lactic Acid Level 0.84 10/19/18 17:06: Glucometer 239H 10/19/18 18:25: Blood Gas Puncture Site RT BRACH, Blood Gas Patient Temperature 96.5, Arterial Blood pH 7.38, Arterial Blood Partial Pressure CO2 41, Arterial Blood Partial Pressure O2 64L, Arterial Blood HCO3 24, Arterial Blood Total CO2 25.3, Arterial Blood Oxygen Saturation 95, Arterial Blood Base Excess -0.6, Kush Test YES-POS, Blood Gas Ventilator Setting YES, Blood Gas Inspired Oxygen 40% 12/07/17 01:04: Glucometer 167H 12/07/17 02:58: White Blood Count 7.7, Red Blood Count 3.92L, Hemoglobin 11.8#L, Hematocrit 36L , Mean Corpuscular Volume 91, Mean Corpuscular Hemoglobin 30, Mean Corpuscular Hemoglobin Concent 33, Red Cell Distribution Width 13.7, Platelet Count 264, Mean Platelet Volume 9.9, Neutrophils (%) (Auto) 73, Lymphocytes (%) (Auto) 17, Monocytes (%) (Auto) 9, Eosinophils (%) (Auto) 1, Basophils (%) (Auto) 0, Neutrophils # (Auto) 5.6, Lymphocytes # (Auto) 1.3, Monocytes # (Auto) 0.7, Eosinophils # (Auto) 0.1, Basophils # (Auto) 0.0, Sodium Level 139, Potassium Level 3.6, Chloride Level 107, Carbon Dioxide Level 22, Anion Gap 10, Blood Urea Nitrogen 10, Creatinine 0.85, Estimat Glomerular Filtration Rate > 60, BUN/ Creatinine Ratio 12, Glucose Level 164H, Calcium Level 8.7, Corrected Calcium 9.6, Phosphorus Level 3.5, Magnesium Level 1.7L, Total Bilirubin 0.6, Aspartate Amino Transf (AST/SGOT) 15, Alanine Aminotransferase (ALT/SGPT) 11, Alkaline Phosphatase 55, Total Protein 5.8L, Albumin 2.9L 12/07/17 03:31: Blood Gas Puncture Site RIGHT RADIAL, Blood Gas Patient Temperature 97.3, Arterial Blood pH 7.42, Arterial Blood Partial Pressure CO2 39, Arterial Blood Partial Pressure O2 62L, Arterial Blood HCO3 25, Arterial Blood Total CO2 26.5, Arterial Blood Oxygen Saturation 95, Arterial Blood Base Excess 1.1, Kush Test YES-POS, Blood Gas Ventilator Setting YES, Blood Gas Inspired Oxygen 40% A/P: Assessment/Dx: Severe respiratory distress, Acute pulmonary edema, Severe hypertension, Plan: Severe respiratory failure with hypoxia: Intubated/ventilated. Improved oxygenation status. Gradual weaning off. Defer to Dr. Soto. Acute diastolic heart failure likely secondary to severe hypertension. Severe hypertension - SBP > 200mmhg. Could be the cause of pulmonary edema. Renal artery stenosis needs to be ruled out. I have requested a renal ultrasound to rule out renal artery stenosis. Recent admission for shortness of breath - COPD. Leukocytosis Discussed at length with the nurse. Thank you for your consultation. Please call me if you have any questions. Jesus Alberto Bueno MD, FACP, FACC, FSCAI, FHRS, CCDS Interventional Cardiology Cardiac Electrophysiology Vascular Medicine and Endovascular Interventions Focused Exam Lactate Level 12/06/17 14:15: Lactic Acid Level 0.84 Denice BUENO MD Dec 07, 2017 12:01 pm
--- NOTE | 2017-12-07 12:35 | Diagnostic Imaging Report ---
Indication: Pulmonary edema. Time of exam: 4:12 AM Correlation is made with prior study from one day earlier. Support lines and catheters remain in place. Bilateral perihilar infiltrates are noted consistent with edema. The overall appearance of the chest has improved since the exam one day earlier. No effusion or pneumothorax is identified. Impression: Bilateral infiltrates, however, there has been some partial clearing of infiltrates when compared to exam one day earlier. Dictated by: Dictated on workstation # [id number]
--- NOTE | 2017-12-07 14:57 | Diagnostic Imaging Report ---
PROCEDURE: US DOPPLER ABD/COMPLETE TECHNIQUE: Multiple real-time grayscale images were obtained over the kidneys in various projections. Duplex evaluation of renal arteries was also attempted. INDICATION: Hypertension. COMPARISON: None. DISCUSSION: Sonographic evaluation of the bilateral kidneys, renal arteries, and aorta was attempted. Exam is limited as patient was unable to follow directions due to large body habitus and increased bowel gas. Neither renal artery was visualized. The kidneys are normal in echotexture and size bilaterally without evidence of hydronephrosis or renal mass. The right kidney measures 12.2 cm. Left kidney measures 10.9 cm. IMPRESSION: 1. Nonvisualization of the bilateral renal arteries as discussed above. Dictated by: Dictated on workstation # [id number]
[2017-12-07 15:39] LABS: ABG BASE EXCESS 0.3 MMOL/L (-2.5-2.5); ABG OXYGEN SATURATION 95 % (94-100); ABG PCO2 38 MMHG (35-45); ABG PH 7.42 (7.37-7.43); ABG PO2 66 MMHG (79-93); ABG TCO2 25.7 MMOL/L (21.0-31.0)
[2017-12-07 15:43] LABS: ALLENS TEST POSITIVE; PATIENT TEMP 96.9; VENTILATOR YES
[2017-12-07] MEDS: RT-ALBUTEROL SULF 2.5 MG/3 ML PRE-MIX VIAL INH PRN ×2 (19:46→23:46)
[2017-12-07] MEDS: ACETAMINOPHEN 325 MG TABLET PO PRN (23:09)
[2017-12-08] VITALS (13 sets, daily range): BP systolic 132–170; BP diastolic 60–94
[2017-12-08] MEDS: inSUlin ASPART (NovoLOG) 1 UNIT/0.01 ML (CHARGE PER UNIT) SC SCH ×4 (00:50→18:29)
[2017-12-08 03:23] LABS: MAGNESIUM 1.7 MG/DL (1.8-2.4)
[2017-12-08] MEDS: ACETAMINOPHEN 325 MG TABLET PO PRN ×4 (03:57→23:59)
[2017-12-08 04:30] LABS: BASOPHILS % (AUTO) 0 % (0-10); EOSINOPHILS # (AUTO) 0.2 10^3/uL (0.0-0.3); EOSINOPHILS % (AUTO) 2 % (0-10); HEMATOCRIT 37 % (40-54); HEMOGLOBIN 12.4 G/DL (13.3-17.7); LYMPHOCYTES # (AUTO) 1.3 X 10^3 (1.0-4.0); LYMPHOCYTES % (AUTO) 15 % (12-44); MEAN CORPUSCULAR HEMOGLOBIN 30 PG (25-34); MEAN CORPUSCULAR HGB CONC 33 G/DL (32-36); MEAN CORPUSCULAR VOLUME 91 FL (80-99); MEAN PLATELET VOLUME 10.5 FL (7.4-10.4); MONOCYTES # (AUTO) 0.8 X 10^3 (0.0-1.0); MONOCYTES % (AUTO) 10 % (0-12); NEUTROPHILS # (AUTO) 6.2 X 10^3 (1.8-7.8); NEUTROPHILS % (AUTO) 73 % (42-75); PLATELET COUNT 291 10^3/uL (130-400); RED CELL DISTRIBUTION WIDTH 13.2 % (10.0-14.5); WHITE BLOOD COUNT 8.5 10^3/uL (4.3-11.0)
[2017-12-08 04:47] LABS: ALANINE AMINOTRANSFERASE 10 U/L (0-55); ALBUMIN 3.1 GM/DL (3.2-4.5); ALKALINE PHOSPHATASE 59 U/L (40-136); BILIRUBIN,TOTAL 0.6 MG/DL (0.1-1.0); BUN/CREATININE RATIO 13; CALCIUM 9.4 MG/DL (8.5-10.1); CARBON DIOXIDE 20 MMOL/L (21-32); CHLORIDE 105 MMOL/L (98-107); CREATININE SERUM 0.89 MG/DL (0.60-1.30); GFR ESTIMATED > 60; GLUCOSE 136 MG/DL (70-105); POTASSIUM 3.9 MMOL/L (3.6-5.0); SODIUM 140 MMOL/L (135-145); TOTAL PROTEIN 6.4 GM/DL (6.4-8.2)
[2017-12-08] MEDS ORDERED: RT-ALBUTEROL/IPRATROPIUM 3 ML (DUONEB) VIAL INH SCH ×2 (05:15→15:00)
--- NOTE | 2017-12-08 05:16 | Pulmonary Progress Note ---
Subjective Time Seen by a Provider: 05:25 Subjective/Events-last exam PT is doing well off ventilator. Sepsis Event Evaluation Height, Weight, BMI Height: 5'8.00" Weight: 271lbs. 0.0oz. 122.749983rh; 41.2 BMI Method:Stated Focused Exam Lactate Level 12/06/17 14:15: Lactic Acid Level 0.84 Exam Exam Vital Signs Date Time Temp Pulse Resp B/P (MAP) Pulse Ox O2 Delivery O2 Flow Rate FiO2 12/08/17 05:00 105 24 152/82 (105) 96 High Flow N/C 10.00 12/08/17 04:00 100.5 12/08/17 04:00 High Flow N/C 10.00 12/08/17 04:00 107 20 149/84 (105) 97 High Flow N/C 10.00 12/08/17 03:00 107 20 132/61 (84) 97 High Flow N/C 10.00 12/08/17 02:00 110 17 132/60 (84) 97 High Flow N/C 10.00 12/08/17 01:00 113 26 132/63 (86) 97 High Flow N/C 10.00 12/08/17 01:00 117 12/08/17 00:00 97.8 12/08/17 00:00 118 24 144/67 (92) 97 High Flow N/C 10.00 12/08/17 00:00 High Flow N/C 10.00 12/07/17 23:48 94 High Flow N/C 10.00 12/07/17 22:30 112 23 152/81 (104) 94 High Flow N/C 10.00 12/07/17 21:00 106 24 168/88 (114) 95 High Flow N/C 10.00 12/07/17 20:00 101 24 156/84 (108) 96 High Flow N/C 10.00 12/07/17 20:00 97.3 12/07/17 20:00 High Flow N/C 10.00 12/07/17 19:48 96 High Flow N/C 10.00 12/07/17 19:00 94 17 142/91 (108) 95 High Flow N/C 10.00 12/07/17 19:00 92 12/07/17 18:55 93 96 12/07/17 18:00 82 23 142/84 (103) 96 High Flow N/C 10.00 12/07/17 17:00 81 23 129/81 (97) 93 High Flow N/C 10.00 12/07/17 16:05 High Flow N/C 10.00 12/07/17 16:03 High Flow N/C 10.00 12/07/17 16:00 76 19 124/74 (91) 95 Mechanical Ventilator 55.00 12/07/17 15:00 76 20 125/73 (90) 93 Mechanical Ventilator 55.00 12/07/17 14:00 78 24 123/68 (86) 93 Mechanical Ventilator 55.00 12/07/17 13:45 79 29 92 40 12/07/17 13:00 75 13 129/76 (93) 94 Mechanical Ventilator 55.00 12/07/17 13:00 75 12/07/17 12:15 76 15 93 40 12/07/17 12:00 76 14 121/72 (88) 92 Mechanical Ventilator 40.00 12/07/17 12:00 98.2 12/07/17 11:36 Mechanical Ventilator 40 12/07/17 11:00 76 14 123/72 (89) 95 Mechanical Ventilator 40.00 12/07/17 10:31 76 16 95 40 12/07/17 10:00 76 14 124/72 (89) 95 Mechanical Ventilator 40.00 12/07/17 09:14 75 14 95 40 12/07/17 09:00 75 14 120/70 (87) 95 Mechanical Ventilator 40.00 12/07/17 08:00 80 15 117/68 (84) 94 Mechanical Ventilator 40.00 12/07/17 08:00 97.2 12/07/17 07:30 Mechanical Ventilator 40 12/07/17 07:17 87 15 96 40 12/07/17 07:00 93 17 119/75 (90) 96 Mechanical Ventilator 40.00 12/07/17 07:00 93 12/07/17 06:00 98 15 136/76 (96) 96 Mechanical Ventilator 40.00 I & O 12/08/17 07:00 Intake Total 1767 ml Output Total 1450 ml Balance 317 ml Height & Weight Height: 5'8.00" Weight: 271lbs. 0.0oz. 122.498637xv; 41.2 BMI Method:Stated General Appearance: No Apparent Distress, Anxious, Obese Neck: Normal Inspection (AVD was reported emergency room currently is resolved) Respiratory: Other (Few basilar rales much less congestion compared to yesterday anteriorly the patient's chest is clear) Cardiovascular: Regular Rate, Rhythm, No Edema, No Gallop, No JVD, No Murmur, Normal Peripheral Pulses Capillary Refill: Less Than 3 Seconds Gastrointestinal: normal bowel sounds, non tender, soft Extremity: Normal Capillary Refill, Normal Inspection, Other (Trace pedal edema symmetrical) Skin: Normal Color, Warm/Dry, Other (No evidence for urticaria there is a fine erythematous papular eruption over the back of his right hand and forearm without significant edema and no induration is noted there is no increase in warmth.) Results Lab Laboratory Tests 12/06/17 13:42 12/07/17 02:58 12/08/17 02:40 Assessment/Plan Assessment/Plan Hypoxia with acute on chronic respiratory failure with recurrent hospitalizations -Pt is doing well off ventilator -PT needs a vent to mask -I will arrange for this prior to discharge -CXR is pending -CT of chest earlier today was negative for PE. Dopplers were also negative for DVT -Pt has been calling for PRN SVNs he states they do help will make them scheduled and add advair. Diastolic CHF -MOnitor CXR is pending bilateral pleural effussions/Pulmonary edema -doubt PNA Lung nodule -will repeat CT scan as out patient in 6 mo. GIULIANA WARNER DO Dec 08, 2017 5:16 am
[2017-12-08] MEDS: MAGNESIUM 1 GM/100 ML IVPB 100 ML IV SCH ×2 (05:25→06:31)
[2017-12-08] MEDS: ENOXAPARIN 40 MG/0.4 ML (LOVENOX) SYR SC SCH ×2 (05:28→17:34)
[2017-12-08] MEDS: CATHETER FLUSH 10 ML SYR IV SCH ×3 (06:31→22:00)
[2017-12-08] MEDS: POTASSIUM CL 10MEQ/50ML IVPB 50 ML IV SCH (06:31)
--- NOTE | 2017-12-08 06:36 | Diagnostic Imaging Report ---
EXAMINATION: Chest radiograph, portable AP view. DATE: December 08, 2017 at 05:30 hours. INDICATION: 57-year-old male, pulmonary edema, hypoxia. COMPARISON: December 07, 2017. FINDINGS: The previously noted endotracheal tube and nasogastric tubes have been removed. Stable overall appearance of the cardiomediastinal silhouette. There is no identified pneumothorax. There is no large pleural effusion. There are bilateral predominantly interstitial opacities which are essentially unchanged. There are technical limitations of the exam relating to patient body habitus and difficulties with exposure. IMPRESSION: 1. Interval removal of previously noted endotracheal tube and nasogastric tube. 2. Grossly unchanged bilateral predominantly interstitial opacities. Dictated by: Dictated on workstation # [id number]
[2017-12-08] MEDS: KCL 20 MEQ TAB (K-DUR) PO SCH (06:53)
[2017-12-08] MEDS ORDERED: RT-ADVAIR HFA 115/21 MCG PER PUFF IH SCH (08:00)
[2017-12-08] MEDS ORDERED: GLIMEPIRIDE 1 MG (AMARYL) TAB PO NR (08:39)
[2017-12-08] MEDS: FUROSEMIDE 40 MG (LASIX) TAB PO SCH (08:52)
[2017-12-08] MEDS: meTOproloL SUCCINATE 50 MG (TOPROL XL) TAB PO SCH (08:52)
[2017-12-08] MEDS: LOSARTAN 100 MG (COZAAR) TABLET PO SCH (08:52)
[2017-12-08] MEDS: ADVAIR HFA 115/21 MCG INHALER 8 GM IH SCH ×2 (09:15→19:39)
[2017-12-08] MEDS ORDERED: RT-ALBUTEROL/IPRATROPIUM 3 ML (DUONEB) VIAL INH PRN (09:45)
[2017-12-08] MEDS ORDERED: RT-LEVALBUTEROL (XOPENEX) 1.25 MG/3 ML NEB NON-FORMULARY INH PRN (10:15)
--- NOTE | 2017-12-08 11:38 | Progress Note-Hospitalist ---
Subjective HPI/CC On Admission Date Seen by Provider: Dec 08, 2017 Time Seen by Provider: 08:15 Mr. Laird is a 57-year-old white male who had been discharged this morning after workup for shortness of breath. This morning and undergone CT angiography which revealed no ventral pulmonary embolism he did have reported increased interstitial markings also had some hilar adenopathy and one subcentimeter lower lobe pulmonary nodule reportedly about 7 mm in size for which follow-up CT in 6 months was recommended. He had no evidence for pneumonia. In talking with his nurse this morning he felt well upon discharge with no shortness of breath. Sometime around noon while sitting in his chair he became acutely short of breath without reported chest discomfort. He summoned emergency medical services were they found him to be in acute distress secondary to shortness of breath with O2 saturation was 60 percent range he was started on high flow oxygen and upon his arrival to the emergency room he was unresponsive on nonrebreather with an O2 saturation of 84 percent with significant tachypnea and shallow respirations. He was intubated and 40 mg of Lasix IV were given. Within 20 minutes per the emergency room physician's report he had over 600 mL of urine out. He was started on propofol but initial hypertension on presentation to the emergency room of in the 200/100 range digressed to hypotension with pressures in the 90 systolic range. Propofol was discontinued pressor support was not required and upon my arrival he was sedated on Versed had and fentanyl with blood pressures in the 110/70 range heart rate down to 80 and regular. He was sedated and unable to give any history. Subjective/Events-last exam Patient awake and alert in bed denying any shortness of breath at rest. He denies nausea and is oriented 3. He reports that his throat is little sore voicing no other current complaints. Focused Exam Lactate Level 12/06/17 14:15: Lactic Acid Level 0.84 Objective Exam Vital Signs Vital Signs Date Time Temp Pulse Resp B/P (MAP) Pulse Ox O2 Delivery O2 Flow Rate FiO2 12/08/17 09:00 100 20 168/87 (114) 100 High Flow N/C 6.00 12/08/17 08:00 98.8 12/07/17 13:45 40 Capillary Refill : Less Than 3 Seconds General Appearance: No Apparent Distress, Obese Respiratory: Chest Non Tender, No Accessory Muscle Use, No Respiratory Distress , Other (U fine bibasilar rales chest is otherwise clear) Cardiovascular: Regular Rate, Rhythm, No Edema, No Gallop, No JVD, No Murmur, Normal Peripheral Pulses Gastrointestinal: Normal Bowel Sounds, No Organomegaly, No Pulsatile Mass, Non Tender, Soft Results/Procedures Lab Laboratory Tests 12/08/17 02:40 Patient resulted labs reviewed. Assessment/Plan Assessment and Plan Assess & Plan/Chief Complaint /P1. Pulmonary edema likely due to acute on chronic diastolic heart failure much improved off vent respiratory distress resolved. We'll resume losartan 100 mg daily and increase furosemide to 40 mg by mouth daily. Considering heart failure and edema pioglitazone is a relative contraindication will switch to low-dose Amaryl 1 mg daily as the patient reports no health insurance and is not going to be able to afford any expensive medication. Now the heart failure is compensated we'll add back metoprolol XL 50 mg daily which is a little higher than his home 25 mg reported dose. 2. Type II diabetes mellitus reasonable blood sugar control on sliding scale insulin starting 1 mg of Amaryl as per above. Continue to monitor fingerstick blood sugars warned about signs and symptoms of hypoglycemia. Critical Care Critical Care: Ventilator Management Clinical Quality Measures DVT/VTE Risk/Contraindication: Risk Factor Score Per Nursin RFS Level Per Nursing on Admit: 3=High EFREN SHARIF MD Dec 08, 2017 11:38
--- NOTE | 2017-12-08 12:27 | Cardiology Progress Note ---
Cardiology SOAP Progress Note Subjective: Extubated. Comfortably resting. Objective: I&O/Vital Signs 12/08/17 12/08/17 12/08/17 12/08/17 01:00 01:00 02:00 03:00 Pulse 117 113 110 107 Resp 26 17 20 B/P (MAP) 132/63 (86) 132/60 (84) 132/61 (84) Pulse Ox 97 97 97 O2 Delivery High Flow N/C High Flow N/C High Flow N/C O2 Flow Rate 10.00 10.00 10.00 12/08/17 12/08/17 12/08/17 12/08/17 04:00 04:00 04:00 05:00 Temp 100.5 Pulse 107 105 Resp 20 24 B/P (MAP) 149/84 (105) 152/82 (105) Pulse Ox 97 96 O2 Delivery High Flow N/C High Flow N/C High Flow N/C O2 Flow Rate 10.00 10.00 10.00 12/08/17 12/08/17 12/08/17 12/08/17 05:17 06:00 06:59 07:00 Pulse 105 105 105 Resp 24 16 B/P (MAP) 158/86 (110) 158/87 (110) Pulse Ox 95 97 O2 Delivery High Flow N/C High Flow N/C High Flow N/C O2 Flow Rate 6.00 10.00 6.00 12/08/17 12/08/17 12/08/17 12/08/17 08:00 08:00 08:55 09:00 Temp 98.8 Pulse 105 100 Resp 25 20 B/P (MAP) 164/94 (117) 168/87 (114) Pulse Ox 95 100 O2 Delivery High Flow N/C High Flow N/C High Flow N/C High Flow N/C O2 Flow Rate 6.00 6.00 6.00 6.00 12/08/17 00:00 Intake Total 740 ml Output Total 1075 ml Balance -335 ml Weight (Pounds): 269 Weight (Ounces): 0.0 Weight (Calculated Kilograms): 122.174344 Respiratory: chest is bilaterally symmetric, lungs clear to auscultation Cardiovascular: regular rate-rhythm, S1 and S2 Gastrointestional: No tender, No soft, No round, No distended, No pulsatile mass, No organomegaly, No guarding, No rebound, No tenderness, No hernia, No mass, No audible bowel sounds, No abnormal bowel sounds, No abdominal bruits, No spleenomegaly, No other Extremities: No normal range of motion, No non-tender, No normal inspection, No pedal edema, No calf tenderness, No normal capillary refill, No pelvis stable , No calf tenderness, No inflammation, No pedal edema, No slow capillary refill , No swelling, No other, No abrasion, No clubbing, No cyanosis, No ecchymosis, No laceration, No no lower extremity edema bilateral, No significant edema, No tenderness, No wound Neurologic/Psychiatric: no motor/sensory deficits, alert, normal mood/affect, oriented x 3 Skin: No normal color, No warm/dry, No cyanosis, No cool, No diaphoresis, No damp, No ecchymosis, No jaundice, No mottled, No pallor, No rash, No tattoos/ piercings, No ulcerations, No rash on exposed areas, No ulcerations on exposed areas, No other Results/Procedures: Labs Laboratory Tests 12/07/17 13:26: Glucometer 225H 12/07/17 15:30: Blood Gas Puncture Site RIGHT RADIAL, Blood Gas Patient Temperature 96.9, Arterial Blood pH 7.42, Arterial Blood Partial Pressure CO2 38, Arterial Blood Partial Pressure O2 66L, Arterial Blood HCO3 25, Arterial Blood Total CO2 25.7, Arterial Blood Oxygen Saturation 95, Arterial Blood Base Excess 0.3, Kush Test POSITIVE, Blood Gas Ventilator Setting YES, Blood Gas Inspired Oxygen 55% 12/07/17 18:32: Glucometer 139H 12/08/17 02:40: White Blood Count 8.5, Red Blood Count 4.10L, Hemoglobin 12.4L, Hematocrit 37L, Mean Corpuscular Volume 91, Mean Corpuscular Hemoglobin 30, Mean Corpuscular Hemoglobin Concent 33, Red Cell Distribution Width 13.2, Platelet Count 291, Mean Platelet Volume 10.5H, Neutrophils (%) (Auto) 73, Lymphocytes (%) (Auto) 15 , Monocytes (%) (Auto) 10, Eosinophils (%) (Auto) 2, Basophils (%) (Auto) 0, Neutrophils # (Auto) 6.2, Lymphocytes # (Auto) 1.3, Monocytes # (Auto) 0.8, Eosinophils # (Auto) 0.2, Basophils # (Auto) 0.0, Sodium Level 140, Potassium Level 3.9, Chloride Level 105, Carbon Dioxide Level 20L, Anion Gap 15H, Blood Urea Nitrogen 12, Creatinine 0.89, Estimat Glomerular Filtration Rate > 60, BUN/ Creatinine Ratio 13, Glucose Level 136H, Calcium Level 9.4, Corrected Calcium 10.1, Phosphorus Level 3.0, Magnesium Level 1.7L, Total Bilirubin 0.6, Aspartate Amino Transf (AST/SGOT) 16, Alanine Aminotransferase (ALT/SGPT) 10, Alkaline Phosphatase 59, Total Protein 6.4, Albumin 3.1L 12/08/17 11:51: Glucometer 208H Microbiology 12/06/17 Blood Culture - Preliminary, Resulted No growth 12/06/17 MRSA Screen - Final, Complete MRSA not isolated A/P: Assessment/Dx: Severe respiratory distress, Acute pulmonary edema, Severe hypertension, Plan: Severe respiratory failure with hypoxia: Extubated. Feeling much better. Acute diastolic heart failure likely secondary to severe hypertension. Severe hypertension - SBP > 200mmhg. Could be the cause of pulmonary edema. Renal artery stenosis needs to be ruled out. I have requested a renal ultrasound to rule out renal artery stenosis. Ultrasound done yesterday was suboptimal and renal arteries were not well visualized. Recent admission for shortness of breath - COPD. Leukocytosis Dr. Ortega to take over cardiology care from tomorrow. Thank you for your consultation. Please call me if you have any questions. Jesus Alberto Bueno MD, FACP, FACC, FSCAI, FHRS, CCDS Interventional Cardiology Cardiac Electrophysiology Vascular Medicine and Endovascular Interventions Focused Exam Lactate Level 12/06/17 14:15: Lactic Acid Level 0.84 Denice BUENO MD Dec 08, 2017 12:27
[2017-12-08] MEDS ORDERED: ONDANSETRON 4 MG/2 ML (SDV) Z0FRAN ONE (13:58)
[2017-12-08] MEDS: RT-LEVALBUTEROL (XOPENEX) 1.25 MG/3 ML NEB NON-FORMULARY INH SCH ×2 (14:31→19:39)
[2017-12-09] VITALS (20 sets, daily range): BP systolic 131–189; BP diastolic 61–119
[2017-12-09] MEDS: RT-LEVALBUTEROL (XOPENEX) 1.25 MG/3 ML NEB NON-FORMULARY INH SCH ×4 (02:09→21:14)
[2017-12-09] MEDS: GLIMEPIRIDE 1 MG (AMARYL) TAB PO SCH (05:39)
[2017-12-09] MEDS: inSUlin ASPART (NovoLOG) 1 UNIT/0.01 ML (CHARGE PER UNIT) SC SCH ×5 (05:39→23:44)
[2017-12-09] MEDS: ENOXAPARIN 40 MG/0.4 ML (LOVENOX) SYR SC SCH (05:39)
[2017-12-09] MEDS: KCL 20 MEQ TAB (K-DUR) PO SCH (05:39)
[2017-12-09] MEDS: MAGNESIUM 1 GM/100 ML IVPB 100 ML IV SCH (05:40)
[2017-12-09] MEDS: CATHETER FLUSH 10 ML SYR IV SCH ×3 (05:40→22:11)
[2017-12-09] MEDS: POTASSIUM CL 10MEQ/50ML IVPB 50 ML IV SCH (05:40)
--- NOTE | 2017-12-09 06:40 | Pulmonary Progress Note ---
Subjective Time Seen by a Provider: 06:35 Subjective/Events-last exam Pt feels improved. No complications noted. Sepsis Event Evaluation Height, Weight, BMI Height: 5'8.00" Weight: 269lbs. 0.0oz. 122.542051ib; 41.2 BMI Method:Stated Focused Exam Lactate Level 12/06/17 14:15: Lactic Acid Level 0.84 Exam Exam Vital Signs Date Time Temp Pulse Resp B/P (MAP) Pulse Ox O2 Delivery O2 Flow Rate FiO2 12/09/17 02:09 94 High Flow N/C 5.00 12/09/17 00:00 98.9 99 18 155/74 (101) 94 High Flow N/C 6.00 12/08/17 21:00 High Flow N/C 5.00 12/08/17 20:00 98.9 99 18 169/85 (113) 96 High Flow N/C 6.00 12/08/17 19:40 92 High Flow N/C 5.00 12/08/17 16:00 99.3 100 18 170/90 (116) 96 High Flow N/C 6.00 12/08/17 12:59 107 12/08/17 12:00 109 15 160/83 (108) 93 High Flow N/C 6.00 12/08/17 09:00 100 20 168/87 (114) 100 High Flow N/C 6.00 12/08/17 08:55 High Flow N/C 6.00 12/08/17 08:00 98.8 105 25 164/94 (117) 95 High Flow N/C 6.00 12/08/17 08:00 High Flow N/C 6.00 12/08/17 07:00 105 16 158/87 (110) 97 High Flow N/C 6.00 12/08/17 06:59 105 I & O 12/09/17 07:00 Intake Total 2130 ml Output Total 3375 ml Balance -1245 ml Height & Weight Height: 5'8.00" Weight: 269lbs. 0.0oz. 122.246558pq; 41.2 BMI Method:Stated General Appearance: No Apparent Distress, Obese Neck: Normal Inspection (AVD was reported emergency room currently is resolved) Respiratory: Chest Non Tender, No Accessory Muscle Use, No Respiratory Distress , Other (U fine bibasilar rales chest is otherwise clear) Cardiovascular: Regular Rate, Rhythm, No Edema, No Gallop, No JVD, No Murmur, Normal Peripheral Pulses Capillary Refill: Less Than 3 Seconds Gastrointestinal: normal bowel sounds, non tender, soft Extremity: Normal Capillary Refill, Normal Inspection, Other (Trace pedal edema symmetrical) Skin: Normal Color, Warm/Dry, Other (No evidence for urticaria there is a fine erythematous papular eruption over the back of his right hand and forearm without significant edema and no induration is noted there is no increase in warmth.) Results Lab Laboratory Tests 12/08/17 02:40 Assessment/Plan Assessment/Plan Hypoxia with acute on chronic respiratory failure with recurrent hospitalizations -Pt is doing well off ventilator -PT needs a vent to mask -I will arrange for this prior to discharge -C02 was 59 prior to intubation and mechanical ventilation f/u abgs are while pt was on vent. -repeat BNP -SVNS Q4 Diastolic CHF -MOnitor CXR is pending bilateral pleural effussions/Pulmonary edema -doubt PNA Lung nodule -will repeat CT scan as out patient in 6 mo. GIULIANA WARNER DO Dec 09, 2017 06:40
[2017-12-09 07:29] LABS: MAGNESIUM 1.6 MG/DL (1.8-2.4); PHOSPHORUS 3.5 MG/DL (2.3-4.7)
--- NOTE | 2017-12-09 07:46 | Progress Note-Hospitalist ---
Subjective HPI/CC On Admission Date Seen by Provider: Dec 09, 2017 Time Seen by Provider: 07:40 Mr. Laird is a 57-year-old white male who had been discharged this morning after workup for shortness of breath. This morning and undergone CT angiography which revealed no ventral pulmonary embolism he did have reported increased interstitial markings also had some hilar adenopathy and one subcentimeter lower lobe pulmonary nodule reportedly about 7 mm in size for which follow-up CT in 6 months was recommended. He had no evidence for pneumonia. In talking with his nurse this morning he felt well upon discharge with no shortness of breath. Sometime around noon while sitting in his chair he became acutely short of breath without reported chest discomfort. He summoned emergency medical services were they found him to be in acute distress secondary to shortness of breath with O2 saturation was 60 percent range he was started on high flow oxygen and upon his arrival to the emergency room he was unresponsive on nonrebreather with an O2 saturation of 84 percent with significant tachypnea and shallow respirations. He was intubated and 40 mg of Lasix IV were given. Within 20 minutes per the emergency room physician's report he had over 600 mL of urine out. He was started on propofol but initial hypertension on presentation to the emergency room of in the 200/100 range digressed to hypotension with pressures in the 90 systolic range. Propofol was discontinued pressor support was not required and upon my arrival he was sedated on Versed had and fentanyl with blood pressures in the 110/70 range heart rate down to 80 and regular. He was sedated and unable to give any history. Subjective/Events-last exam Pt reports breathing better but having aches all over body. Also states no appetite because diet here is too limiting due to allergies. Would like castro out so easier to ambulate. Focused Exam Lactate Level 12/06/17 14:15: Lactic Acid Level 0.84 Objective Exam Vital Signs Vital Signs Date Time Temp Pulse Resp B/P (MAP) Pulse Ox O2 Delivery O2 Flow Rate FiO2 12/09/17 04:00 98.5 98 20 131/61 (84) 94 High Flow N/C 6.00 12/07/17 13:45 40 Capillary Refill : Less Than 3 Seconds General Appearance: No Apparent Distress, WD/WN Respiratory: Lungs Clear, No Respiratory Distress Cardiovascular: Regular Rate, Rhythm, No Murmur Gastrointestinal: Normal Bowel Sounds, Soft Neurologic/Psychiatric: Alert, Oriented x3, Normal Mood/Affect Results/Procedures Lab Patient resulted labs reviewed. Assessment/Plan Assessment and Plan Assess & Plan/Chief Complaint Acute Respiratory Failure- pulmonary edema Critical Care Critical Care: Ventilator Management Diagnosis/Problems Diagnosis/Problems (1) Acute respiratory failure Status: Acute Assessment & Plan: Likely due to flash pulmonary edema Now extubated and doing well Pulm consulted, appreciate recs Needs vent to mask prior to DC MAT protocol Continue lasix Still on 6lpm Qualifiers: Respiratory failure complication: hypercapnia Qualified Codes: J96.02 - Acute respiratory failure with hypercapnia (2) Heart failure Assessment & Plan: Echo shoes EF 45% Cardiology consulted, appreciate recs Continue lasix, losartan, metoprolol Qualifiers: Heart failure type: diastolic Heart failure chronicity: acute Qualified Codes: I50.31 - Acute diastolic (congestive) heart failure (3) Hypertension Status: Chronic Assessment & Plan: Losartan and metoprolol BP contorl improving Qualifiers: Hypertension type: essential hypertension Qualified Codes: I10 - Essential (primary) hypertension (4) Non-insulin dependent type 2 diabetes mellitus Assessment & Plan: Continue sliding scale (5) Prophylactic measure Assessment & Plan: Saline lock DC castro ADA diet Dietary consulted to review allergies Lovenox Clinical Quality Measures DVT/VTE Risk/Contraindication: Risk Factor Score Per Nursin RFS Level Per Nursing on Admit: 3=High CHAR GONZALEZ MD Dec 09, 2017 7:46 am
[2017-12-09] MEDS: ADVAIR HFA 115/21 MCG INHALER 8 GM IH SCH ×2 (09:31→21:14)
--- NOTE | 2017-12-09 10:11 | Diagnostic Imaging Report ---
PROCEDURE: US DOPPLER ABD/COMPLETE TECHNIQUE: Multiple real-time grayscale images were obtained over the kidneys in various projections. Duplex evaluation of renal arteries was also attempted. INDICATION: Hypertension. Correlation is made with the examination performed . Study remains significantly limited. The proximal and mid renal arteries could not be visualized. Distal renal arteries demonstrate normal velocities bilaterally. Right kidney measures 13.0 x 6.1 x 6.3 cm and the left kidney measures 13.8 x 5.4 x 5.5 cm. Cortical thickness and echogenicity is normal. No calculi or hydronephrosis is seen. IMPRESSION: Continued limited study however distal renal arteries do show normal velocities bilaterally. Dictated by: Dictated on workstation # [id number]
[2017-12-09] MEDS: LOSARTAN 100 MG (COZAAR) TABLET PO SCH (10:18)
[2017-12-09] MEDS: meTOproloL SUCCINATE 50 MG (TOPROL XL) TAB PO SCH (10:18)
[2017-12-09] MEDS: FUROSEMIDE 40 MG (LASIX) TAB PO SCH (10:18)
[2017-12-09] MEDS: ACETAMINOPHEN 325 MG TABLET PO PRN ×2 (10:32→20:25)
--- NOTE | 2017-12-09 12:12 | Cardiology Progress Note ---
Subjective Date Seen by Provider: Dec 09, 2017 Time Seen by Provider: 11:00 Subjective/Events-last exam Mr. Laird is a 57 years old gentleman who was readmitted to the hospital with acute respiratory failure, intubated, currently extubated and feeling better, still having some shortness of breath, fairly anxious. Having flash pulmonary edema of unknown etiology. No signs of heart failure. No known history of significant coronary artery disease, poorly controlled blood pressure. I visited with the patient and discussed with them the underlying cardiac causes of heart failure including coronary artery disease. I am planning to proceed with cardiac catheterization Review of Systems General: No Chills, No Night Sweats, No Fatigue, No Malaise, No Appetite, No Other HEENT: No Head Aches, No Visual Changes, No Eye Pain, No Ear Pain, No Dysphasia , No Sinus Congestion, No Post Nasal Drip, No Sore Throat, No Other Pulmonary: Dyspnea; No Cough, No Pleuritic Chest Pain, No Other Cardiovascular: Edema; No: Chest Pain, Palpitations, Orthopnea, Paroxysmal Noc. Dyspnea, Lt Headedness, Other Focused Exam Lactate Level Objective-Cardiology Exam Last Set of Vital Signs Vital Signs 12/07/17 12/09/17 12/09/17 13:45 15:20 15:29 Temp 97.6 Pulse 97 Resp 20 B/P (MAP) 172/83 (112) Pulse Ox 96 O2 Delivery High Flow N/C O2 Flow Rate 5.00 FiO2 40 Capillary Refill : Less Than 3 Seconds I&O Intake and Output 12/09/17 00:00 Intake Total 2455 ml Output Total 3900 ml Balance -1445 ml Intake Oral 2230 ml IV Total 225 ml Output Urine Total 3900 ml General: Alert, Oriented X3, Cooperative HEENT: Atraumatic, PERRLA Neck: Supple, No JVD, No Thyromegaly Lungs: Clear to Auscultation, Normal Air Movement Heart: Regular Rate, Normal S1, Normal S2, No Murmurs Abdomen: Normal Bowel Sounds, Soft, No Tenderness, No Hepatosplenomegaly, No Masses Extremities: No Clubbing, No Cyanosis, No Edema, Normal Pulses, No Tenderness/ Swelling Skin: No Rashes, No Breakdown, No Significant Lesion Neuro: Normal Gait, Normal Speech, Strength at 5/5 X4 Ext, Normal Tone, Sensation Intact Psych/Mental Status: Mental Status NL, Mood NL Results Lab A/P-Cardiology Admission Diagnosis Acute respiratory failure Chest pain nonspecific etiology Diabetes mellitus Hypertension Assessment/Plan Shortness of breath, status post acute respiratory failure. Reporting improvement. Extubated at this time. Multiple risk factors for coronary artery disease in addition to flash pulmonary edema, history of diabetes mellitus, hypertension, labile blood pressure. I will proceed with left heart catheterization possible PTCA. Status post acute chest pain, nonspecific etiology, proceeding with cardiac catheterization. Bilateral pleural effusion, managed by Dr Soto Lactic acidosis, better, managed by primary care team Diabetes mellitus, poorly controlled, educated about compliance with medication , managed by primary care team History of frequent premature ventricular contractions. Possible underlying sleep apnea. Followed and managed by Dr. Soto BMI 37, obesity, educated on weight loss. Clinical Quality Measures DVT/VTE Risk/Contraindication: Risk Factor Score Per Nursin RFS Level Per Nursing on Admit: 3=High CROW KNIGHT MD Dec 09, 2017 12:12
[2017-12-09] MEDS ORDERED: NS IV 1000 ML 1,000 ML IV SCH (12:15)
[2017-12-09] MEDS ORDERED: LIDOCAINE 1% INJ 20 ML 20 ML VIAL ONE (14:08)
[2017-12-09] MEDS ORDERED: HEParin (CATH LAB) 2,000 ML IV ONE (14:09)
[2017-12-09] MEDS ORDERED: NS IV 1000 ML 0 ML ONE (14:09)
[2017-12-09] MEDS ORDERED: MIDAZOLAM 5 MG/5 ML (VERSED) VIAL ONE (14:11)
[2017-12-09] MEDS ORDERED: fentaNYL INJECTION 100 MCG/2 ML AMP ONE (14:12)
[2017-12-09] MEDS ORDERED: HEParin 1000 UNIT/ML (10ML VIAL) FOR BOLUS ONE (14:12)
--- NOTE | 2017-12-09 14:19 | Physical Therapy Evaluation ---
PT Evaluation-General Medical Diagnosis Admission Date Dec 06, 2017 at 14:49 Medical Diagnosis: flash pulmonary edema Onset Date: Dec 06, 2017 Therapy Diagnosis Therapy Diagnosis: debility Height/Weight Height (Feet): 5 Height (Inches): 8.00 Weight (Pounds): 249 Weight (Ounces): 1.0 Precautions Precautions/Isolations: Contact Isolation, Standard Precautions Weight Bear Status Right Lower Extremity: Right Weight Bearing/Tolerated Left Lower Extremity: Left Weight Bearing/Tolerated Referral Physician: Jimbo Reason for Referral: Evaluation/Treatment Medical History Pertinent Medical History: Arthritis, DM, HTN Additional Medical History asthma Current History EMS secondary to SOA/recent hospital stay secondary to respiratory failure Reviewed History: Yes Social History Home: Single Level Current Living Status: Alone Prior/Core FIM Prior Level of Function Functional Alex Measure 0=Not Assessed/NA 4=Minimal Assistance 1=Total Assistance 5=Supervision or Setup 2=Maximal Assistance 6=Modified Alex 3=Moderate Assistance 7=Complete IndependenceIRFPAI Quality Coding Scale 6 Independent with activity with or without an assistive device 5 Patient requires set up or clean up by helper. Patient completes activity by themselves 4 Supervision or touching assist (CGA). [place] provide cues , steadying assist 3 The helper provides less than half the effort to complete the activity 2 The helper provides more than half the effort to complete the activity 1 Dependent. The helper does all the effort to complete an activity 7 Patient refused to complete or attempt activity 9 The patient did not perform the activity before the current illness or injury 88 Not attempted due to Medical conditions or safety concerns Bed Mobility: 7 Transfers (B,C,W/C) (FIM): 7 Gait: 7 PT Evaluation-Current Subjective Patient agrees to PT. Pain Numeric Pain Scale: 0-No Pain Location: No Pain Reported Objective Patient Orientation: Normal For Age Problem Solving: Good Attachments: Oxygen (5L HF) ROM/Strength ROM Lower Extremities bilateral LE WFL Strength Lower Extremities 4+/5 grossly bilaterally Integumentary/Posture Integumentary refer to nursing notes Bowel Incontinence: No Bladder Incontinence: No Posture WFL Neuromuscular (Tone, Coordination, Reflexes) grossly intact Sensory Vision: Wears Glasses Hearing: Functional Sensation Right Lower Extremit: Impaired Sensation Left Lower Extremity: Impaired Transfers Functional Alex Measure 0=Not Assessed/NA 4=Minimal Assistance 1=Total Assistance 5=Supervision or Setup 2=Maximal Assistance 6=Modified Alex 3=Moderate Assistance 7=Complete Alex Transfers (B, C, W/C) (FIM): 7 Scootin Rollin Supine to/from Sit: 7 Sit to/from Stand: 7 Gait Mode of Locomotion: Walk Anticipated Mode of Locomotion: Walk Gait (FIM): 7 Distance (FIM): 3=150 ft Distance: 500' Gait Level of Assist: 7 Gait Assistive Device: None Comments/Gait Description functional gait sequence/standing recovery period due to slight dizziness Balance Sitting Static: Normal Sitting Dynamic: Normal Standing Static: Normal Standing Dynamic: Normal Assessment/Needs 57 y.o. male, is currently at [facility] with all gross motor skills and does not require skilled PT intervention at this time. Thank you for this referral. Rehab Potential: Fair PT Plan Treatment/Plan Treatment Plan: Discontinue PT, goals met Treatment Plan: Other Treatment Duration: Dec 09, 2017 Frequency: 1 time per week Estimated Hrs Per Day: .25 hour per day Patient and/or Family Agrees t: Yes Discharge Recommendations Therapy D/C Recommendations: Home Independently Time/GCodes Time In: 1330 Time Out: 1345 Total Billed Treatment Time: 15 Total Billed Treatment 1 visit EVLow 15 min DARLENE CARREON PT Dec 09, 2017 14:19
--- NOTE | 2017-12-09 16:31 | Cardiac Procedure Note-CS/ASA ---
Pre-Procedure Note Pre-Op Procedure Note H&P Reviewed The H&P was reviewed, patient examined and no changes noted. Date H&P Reviewed: Dec 09, 2017 Time H&P Reviewed: 16:30 Conscious Sedation Pre-Proced Time 16:30 ASA Score 3 For ASA 3 and 4: Consider anesthesia and medical clearance. Also, for patients with a history of failed moderate sedation consider anesthesia. Airway Lungs Heart ASA score ASA 1: a normal healthy patient ASA 2: a patient with a mild systemic disease (mid diabetes, controlled hypertension, obesity x ASA 3: a patient with a severe systemic disease that limits activity (angina , COPD, prior Myocardial infarction) ASA 4: a patient with an incapacitating disease that is a constant threat to life (CHF, renal failure) ASA 5: a moribund patient not expected to survive 24 hrs. (ruptured aneurysm) ASA 6: a declared brain patient whose organs are being harvested. For emergent operations, add the letter E after the classification Mallampati Classification Grade 3 Sedation Plan Analgesia, Amnesia, Plan communicated to team members, Discussed options with patient/fam, Discussed risks with patient/fam The patient is an appropriate candidate to undergo the planned procedure, sedation, and anesthesia. The patient immediately re-assessed prior to indication. CROW KNIGHT MD Dec 09, 2017 16:31
[2017-12-09] MEDS ORDERED: NITRO DRIP 25000 MCG/D5W 250 ML IV ONE (16:51)
[2017-12-09] MEDS ORDERED: TICAGRELOR 90 MG TABLET (BRILINTA) PO ONE (17:17)
[2017-12-09] MEDS ORDERED: ASPIRIN 325 MG (5 GR) TABLET ONE (17:17)
--- NOTE | 2017-12-09 17:29 | Cardiac Cath Report ---
Cardiac Cath Report Physician (s)/Inspector Hairspring (s) Physician CROW KNIGHT MD Pre-Procedure Diagnosis Pre-Procedure Diagnosis: Coronary artery disease Post-Procedure Note Procedure Start Date: Dec 09, 2017 Name of Procedure: Left heart catheterization Stent to the circumflex artery Stent to the right coronary artery Findings/Procedure Note PROCEDURE NOTE: After explaining the procedure to the patient, all pros and cons were explained , all questions were answered. The patient signed the consent and then he was placed on the cardiac catheterization laboratory. Groin was prepped SL fashion local anesthesia was used. Sheath placed in the right femoral artery. Jennifer right and left catheter were used to access the coronary system. Pigtail was used to access the left ventricular cavity. Left ventriculogram was done Patient was given 8000 units of heparin, I tried with FL guide access the left coronary system without success I used EBU 3.5 guide, patient has severe stenosis in the proximal circumflex artery, primary stenting using 3.012 mm Rocío drug-eluting stent expanded to 3.25 mm with good results, angiogram showed excellent results, I retrieve the wire and the guide and advanced FR guide to the right cord system and BMW wire was advanced to the right coronary artery, patient has severe stenosis in the mid right coronary artery primary stenting using Rocío 2.512 mm done, the stent expanded to 2.75 mm with excellent results. No residual stenosis. At the end of the procedure the sheath was removed. Closure device was used FINDINGS: Hemodynamics LV 141/20, end-diastolic pressure of 20 Aorta 135/74 mean of 99 ANATOMY: Left Main is free of obstructive disease Left Anterior Descending has mild to moderate disease at the midportion, the first diagonal branch has severe ostial stenosis, very small artery Ramus intermedius has moderate stenosis proximally, small to moderate size artery Left Circumflex is dominant artery with severe stenosis proximally successful primary stenting using Rocío 3.012 mm expanded to 3.25 mm with excellent results Right Coronory Artery is small to moderate in size with severe stenosis at the midportion, primary stenting using 2.512 mm expanded to 2.75 mm with excellent results LV Gram was done showing mild diffuse left ventricular hypokinesia with estimated ejection fraction 50 percent CONCLUSION: 1. Multivessel coronary artery disease 2. Severe stenosis in the proximal circumflex artery with primary stenting using Rocío 3.012 mm expanded to 3.25 mm with excellent results 3. Severe stenosis in the mid right coronary artery with primary stenting using 2.512 mm Rocío expanded to 2.75 with excellent results 4. Mild to moderate disease in the proximal LAD, severe stenosis at the ostium of first diagonal artery that is very small artery 5. Moderate disease in the proximal ramus intermedius artery 6. Prominent left ventricle with mild diffuse left ventricular hypokinesia with estimated ejection fraction 50 percent DISCUSSION AND RECOMMENDATION: Continue to maximize medical therapy Anesthesia Type: Conscious Sedation Estimated blood loss (mL): 30 ml Contrast Amount: 190 ml Total Radiation Dose: 4195 mGy Post-Procedure Diagnosis Post-operative diagnosis: Coronary artery disease Congestive heart failure Chest pain nonspecific etiology Acute respiratory failure CROW KNIGHT MD Dec 09, 2017 17:29
[2017-12-09] MEDS ORDERED: PATIENT MAY USE OWN MEDS, ALL PO SCH (17:30)
[2017-12-09] MEDS ORDERED: CLOPIDOGREL 75 MG (PLAVIX) TABLET ONE (17:35)
[2017-12-09] MEDS: TICAGRELOR 90 MG TABLET (BRILINTA) PO SCH (20:05)
[2017-12-09] MEDS: ONDANSETRON 4 MG/2 ML (SDV) Z0FRAN IVP PRN (20:06)
[2017-12-09] MEDS ORDERED: meTOprolol 5 MG/5 ML (LOPRESSOR) VIAL IV ONE (21:30)
[2017-12-09] MEDS ORDERED: LACTATED RINGERS 0 ML IV ONE (21:35)
[2017-12-09] MEDS: NS IV 1000 ML 1,000 ML IV SCH (22:11)
[2017-12-10] VITALS (10 sets, daily range): BP systolic 121–192; BP diastolic 76–97
[2017-12-10] MEDS: ACETAMINOPHEN 325 MG TABLET PO PRN ×3 (01:36→19:48)
[2017-12-10] MEDS: ONDANSETRON 4 MG/2 ML (SDV) Z0FRAN IVP PRN ×2 (01:36→12:22)
[2017-12-10] MEDS: RT-LEVALBUTEROL (XOPENEX) 1.25 MG/3 ML NEB NON-FORMULARY INH SCH ×3 (02:46→19:16)
[2017-12-10] MEDS: NS IV 1000 ML 1,000 ML IV SCH (03:21)
[2017-12-10 03:53] LABS: HEMOGLOBIN 12.5 G/DL (13.3-17.7); MEAN PLATELET VOLUME 9.6 FL (7.4-10.4); RED BLOOD COUNT 4.2 10^6/uL (4.35-5.85); RED CELL DISTRIBUTION WIDTH 12.9 % (10.0-14.5); WHITE BLOOD COUNT 8.9 10^3/uL (4.3-11.0)
[2017-12-10 04:21] LABS: BUN/CREATININE RATIO 6; CALCIUM 9.3 MG/DL (8.5-10.1); CARBON DIOXIDE 23 MMOL/L (21-32); CHLORIDE 101 MMOL/L (98-107); GFR ESTIMATED > 60; GLUCOSE 140 MG/DL (70-105); MAGNESIUM 1.5 MG/DL (1.8-2.4); PHOSPHORUS 2.4 MG/DL (2.3-4.7); POTASSIUM 3.1 MMOL/L (3.6-5.0); SODIUM 139 MMOL/L (135-145)
--- NOTE | 2017-12-10 06:06 | Pulmonary Progress Note ---
Subjective Time Seen by a Provider: 06:14 Subjective/Events-last exam PT had another acute episode of increased SOB last night. Sepsis Event Evaluation Height, Weight, BMI Height: 5'8.00" Weight: 249lbs. 1.0oz. 112.611351pz; 41.2 BMI Method:Stated Exam Exam Vital Signs Date Time Temp Pulse Resp B/P (MAP) Pulse Ox O2 Delivery O2 Flow Rate FiO2 12/10/17 03:00 101 20 192/93 (126) 95 High Flow N/C 3.00 12/10/17 02:46 96 High Flow N/C 1.00 12/10/17 02:00 98 22 148/86 (106) 93 High Flow N/C 3.00 12/10/17 01:00 98 24 159/85 (109) 92 High Flow N/C 3.00 12/10/17 01:00 100 12/10/17 00:00 99.4 12/10/17 00:00 105 25 168/97 (120) 93 High Flow N/C 3.00 12/09/17 23:00 89 24 159/84 (109) 93 High Flow N/C 3.00 12/09/17 22:00 96 24 153/76 (101) 92 High Flow N/C 3.00 12/09/17 21:00 High Flow N/C 3.00 93 12/09/17 21:00 104 10 189/99 (129) 95 High Flow N/C 3.00 12/09/17 20:54 High Flow N/C 3.00 12/09/17 20:00 99.3 12/09/17 20:00 102 16 187/95 (125) 97 High Flow N/C 5.00 12/09/17 19:30 96 21 178/103 (128) 98 High Flow N/C 5.00 12/09/17 19:00 106 28 178/97 (124) 96 High Flow N/C 5.00 12/09/17 18:59 106 12/09/17 18:30 97 20 168/96 (120) 98 High Flow N/C 5.00 12/09/17 18:30 97 13 168/91 (116) 98 High Flow N/C 5.00 12/09/17 18:15 99 179/109 (132) 95 High Flow N/C 5.00 12/09/17 18:00 100 7 175/98 (123) 95 High Flow N/C 5.00 12/09/17 17:48 100 12/09/17 17:45 101 13 154/119 (131) 96 High Flow N/C 5.00 12/09/17 15:29 96 High Flow N/C 5.00 12/09/17 15:20 97.6 97 20 172/83 (112) 97 High Flow N/C 5.00 12/09/17 14:30 97 12/09/17 12:00 99.5 98 20 172/86 (114) 95 High Flow N/C 5.00 12/09/17 09:31 92 High Flow N/C 5.00 12/09/17 09:00 High Flow N/C 5.00 12/09/17 08:00 99.0 102 20 171/84 (113) 95 High Flow N/C 5.00 I & O 12/10/17 07:00 Intake Total 500 ml Output Total 2200 ml Balance -1700 ml Height & Weight Height: 5'8.00" Weight: 249lbs. 1.0oz. 112.479104ug; 41.2 BMI Method:Stated General Appearance: No Apparent Distress, Anxious, Obese Neck: Normal Inspection (AVD was reported emergency room currently is resolved) Respiratory: Chest Non Tender, No Accessory Muscle Use, No Respiratory Distress , Other (U fine bibasilar rales chest is otherwise clear) Cardiovascular: Regular Rate, Rhythm, No Edema, No Gallop, No JVD, No Murmur, Normal Peripheral Pulses Capillary Refill: Less Than 3 Seconds Gastrointestinal: normal bowel sounds, non tender, soft Extremity: Normal Capillary Refill, Normal Inspection, Other (Trace pedal edema symmetrical) Neurologic/Psychiatric: Alert, Oriented x3, Normal Mood/Affect Skin: Normal Color, Warm/Dry, Other (No evidence for urticaria there is a fine erythematous papular eruption over the back of his right hand and forearm without significant edema and no induration is noted there is no increase in warmth.) Results Lab Laboratory Tests 12/10/17 03:15 Assessment/Plan Assessment/Plan Hypoxia with acute on chronic respiratory failure with recurrent hospitalizations -Pt is doing well off ventilator -vent to mask -I talked with via gar[facility] regarding vent to mask. They said they can not provide this for him secondary to him not having insurance. -SVNS Q4 CAD s/p cath with 2 stents placed -Cardiology following Obesity with [facility] -If pt is able to get [employer] director of financial planning I maybe able to get him a BiPAP. Episodes of HTN. -check TSh free t4, t3 Diastolic CHF -MOnitor CXR is pending bilateral pleural effussions/Pulmonary edema -doubt PNA Lung nodule -will repeat CT scan as out patient in 6 mo. GIULIANA WARNER DO Dec 10, 2017 06:05
--- NOTE | 2017-12-10 06:12 | Cardiology Progress Note ---
Subjective Date Seen by Provider: Dec 10, 2017 Time Seen by Provider: 06:09 Subjective/Events-last exam Patient is laying down in bed, had another episode of shortness of breath and hypertension last night. Feeling tired and having no energy. No chest pain was reported. Groin is healing well Review of Systems General: No Chills, No Night Sweats; Fatigue, Malaise; No Appetite, No Other HEENT: No Head Aches, No Visual Changes, No Eye Pain, No Ear Pain, No Dysphasia , No Sinus Congestion, No Post Nasal Drip, No Sore Throat, No Other Pulmonary: Dyspnea; No Cough, No Pleuritic Chest Pain, No Other Cardiovascular: No: Chest Pain, Palpitations, Orthopnea, Paroxysmal Noc. Dyspnea, Edema, Lt Headedness, Other Objective-Cardiology Exam Last Set of Vital Signs Vital Signs 12/09/17 12/10/17 21:00 03:00 Pulse 101 Resp 20 B/P (MAP) 192/93 (126) Pulse Ox 95 O2 Delivery High Flow N/C O2 Flow Rate 3.00 FiO2 93 Capillary Refill : Less Than 3 Seconds I&O Intake and Output 12/10/17 00:00 Intake Total 1300 ml Output Total 2550 ml Balance -1250 ml Intake Oral 1300 ml Output Urine Total 2550 ml # Voids 3 General: Alert, Oriented X3, Cooperative HEENT: Atraumatic, PERRLA Neck: Supple, No JVD, No Thyromegaly Lungs: Clear to Auscultation, Normal Air Movement Heart: Regular Rate, Normal S1, Normal S2, No Murmurs Abdomen: Normal Bowel Sounds, Soft, No Tenderness, No Hepatosplenomegaly, No Masses Extremities: No Clubbing, No Cyanosis, No Edema, Normal Pulses, No Tenderness/ Swelling Skin: No Rashes, No Breakdown, No Significant Lesion Neuro: Normal Gait, Normal Speech, Strength at 5/5 X4 Ext, Normal Tone, Sensation Intact Psych/Mental Status: Mental Status NL, Mood NL Results Lab Laboratory Tests 12/10/17 03:15 A/P-Cardiology Admission Diagnosis Acute respiratory failure Chest pain nonspecific etiology Diabetes mellitus Hypertension Assessment/Plan Shortness of breath, status post acute respiratory failure, had another episode of shortness of breath last night lasted for about an hour and resolved. Coronary artery disease status post cardiac catheterization and 2 stents deployment 1. Multivessel coronary artery disease 2. Severe stenosis in the proximal circumflex artery with primary stenting using Rocío 3.012 mm expanded to 3.25 mm with excellent results 3. Severe stenosis in the mid right coronary artery with primary stenting using 2.512 mm Rocío expanded to 2.75 with excellent results 4. Mild to moderate disease in the proximal LAD, severe stenosis at the ostium of first diagonal artery that is very small artery 5. Moderate disease in the proximal ramus intermedius artery 6. Prominent left ventricle with mild diffuse left ventricular hypokinesia with estimated ejection fraction 50 percent Patient is allergic to aspirin, I will maintain him on Brilinta and monitor closely, educated about the importance of compliance with medication Labile hypertension, episodes of hypertensive emergency. Maintained on losartan and metoprolol, I will add amlodipine and consider adding clonidine if needed. Bilateral pleural effusion, managed by Dr Soto Diabetes mellitus, poorly controlled, educated about compliance with medication , managed by primary care team History of frequent premature ventricular contractions. Possible underlying sleep apnea. Followed and managed by Dr. Soto BMI 37, obesity, educated on weight loss. Clinical Quality Measures DVT/VTE Risk/Contraindication: Risk Factor Score Per Nursin RFS Level Per Nursing on Admit: 3=High RCOW KNIGHT MD Dec 10, 2017 06:12
[2017-12-10] MEDS ORDERED: KCL 10 MEQ TAB (MICRO K) PO ONE (06:15)
[2017-12-10] MEDS: ADVAIR HFA 115/21 MCG INHALER 8 GM IH SCH ×2 (06:43→19:19)
[2017-12-10] MEDS: inSUlin ASPART (NovoLOG) 1 UNIT/0.01 ML (CHARGE PER UNIT) SC SCH ×4 (06:51→20:56)
[2017-12-10] MEDS: CATHETER FLUSH 10 ML SYR IV SCH ×3 (06:51→23:02)
[2017-12-10 06:52] LABS: FREE T4 (FREE THYROXINE) 1.15 NG/DL (0.70-1.48)
[2017-12-10] MEDS: POTASSIUM CL 10MEQ/50ML IVPB 50 ML IV SCH (06:57)
[2017-12-10] MEDS: KCL 20 MEQ TAB (K-DUR) PO SCH (06:58)
[2017-12-10] MEDS: MAGNESIUM 1 GM/100 ML IVPB 100 ML IV SCH ×3 (06:58→07:58)
[2017-12-10] MEDS: GLIMEPIRIDE 1 MG (AMARYL) TAB PO SCH (06:58)
[2017-12-10] MEDS: amLODIPine 10 MG (NORVASC) TAB PO SCH (06:59)
[2017-12-10] MEDS: ENOXAPARIN 40 MG/0.4 ML (LOVENOX) SYR SC SCH (07:02)
[2017-12-10] MEDS ORDERED: RT-ALBUTEROL/IPRATROPIUM 3 ML (DUONEB) VIAL INH PRN (07:15)
--- NOTE | 2017-12-10 07:52 | Progress Note-Hospitalist ---
Subjective HPI/CC On Admission Date Seen by Provider: Dec 10, 2017 Time Seen by Provider: 07:46 Mr. Laird is a 57-year-old white male who had been discharged this morning after workup for shortness of breath. This morning and undergone CT angiography which revealed no ventral pulmonary embolism he did have reported increased interstitial markings also had some hilar adenopathy and one subcentimeter lower lobe pulmonary nodule reportedly about 7 mm in size for which follow-up CT in 6 months was recommended. He had no evidence for pneumonia. In talking with his nurse this morning he felt well upon discharge with no shortness of breath. Sometime around noon while sitting in his chair he became acutely short of breath without reported chest discomfort. He summoned emergency medical services were they found him to be in acute distress secondary to shortness of breath with O2 saturation was 60 percent range he was started on high flow oxygen and upon his arrival to the emergency room he was unresponsive on nonrebreather with an O2 saturation of 84 percent with significant tachypnea and shallow respirations. He was intubated and 40 mg of Lasix IV were given. Within 20 minutes per the emergency room physician's report he had over 600 mL of urine out. He was started on propofol but initial hypertension on presentation to the emergency room of in the 200/100 range digressed to hypotension with pressures in the 90 systolic range. Propofol was discontinued pressor support was not required and upon my arrival he was sedated on Versed had and fentanyl with blood pressures in the 110/70 range heart rate down to 80 and regular. He was sedated and unable to give any history. Subjective/Events-last exam Pt reports having another episode of severe SOB overnight waking him from sleep. he denies a known history of SONIA but has a history of snoring. He denies any spells of diaphoresis. Objective Exam Vital Signs Vital Signs Date Time Temp Pulse Resp B/P (MAP) Pulse Ox O2 Delivery O2 Flow Rate FiO2 12/10/17 06:43 94 High Flow N/C 1.00 12/10/17 06:00 96 16 170/86 (114) 12/10/17 00:00 99.4 12/09/17 21:00 93 Capillary Refill : Less Than 3 Seconds General Appearance: No Apparent Distress, Obese Respiratory: Lungs Clear, No Respiratory Distress Cardiovascular: Regular Rate, Rhythm, No Murmur Gastrointestinal: Normal Bowel Sounds, Non Tender, Soft Neurologic/Psychiatric: Alert, Oriented x3 Results/Procedures Lab Laboratory Tests 12/10/17 03:15 Patient resulted labs reviewed. Assessment/Plan Assessment and Plan Assess & Plan/Chief Complaint Acute Respiratory Failure- pulmonary edema Critical Care Critical Care: Ventilator Management Diagnosis/Problems Diagnosis/Problems (1) Acute respiratory failure Status: Acute Assessment & Plan: Likely due to flash pulmonary edema Now extubated and doing well Pulm consulted, appreciate recs Unable to obtain vent to mask due to insurance difficulties Dr Soto attempting to arrange BiPAP at home MAT protocol Continue lasix Nasal cannula out of nose and sats at 86 this AM Qualifiers: Respiratory failure complication: hypercapnia Qualified Codes: J96.02 - Acute respiratory failure with hypercapnia (2) CAD (coronary artery disease) Status: Acute Assessment & Plan: Underwent cath yesterday Stents placed x2 Cardiology consulted, appreciate recs Continue on Brilinta due to ASA allergy Qualifiers: Coronary Disease-Associated Artery/Lesion type: [place] artery [place] vs. transplanted heart: [place] heart Associated angina: without angina Qualified Codes: I25.10 - Atherosclerotic heart disease of [place] coronary artery without angina pectoris (3) Heart failure Assessment & Plan: Echo shoes EF 45% Cardiology consulted, appreciate recs Continue lasix, losartan, metoprolol Qualifiers: Heart failure type: diastolic Heart failure chronicity: acute Qualified Codes: I50.31 - Acute diastolic (congestive) heart failure (4) Hypertension Status: Chronic Assessment & Plan: Losartan and metoprolol BP elevated overnight Amlodipine added by Cardiology Will check thyroid studies and urine studies for pheo Qualifiers: Hypertension type: essential hypertension Qualified Codes: I10 - Essential (primary) hypertension (5) Non-insulin dependent type 2 diabetes mellitus Assessment & Plan: Continue sliding scale (6) Prophylactic measure Assessment & Plan: Saline lock ADA diet Dietary consulted to review allergies Lovenox Clinical Quality Measures DVT/VTE Risk/Contraindication: Risk Factor Score Per Nursin RFS Level Per Nursing on Admit: 3=High CHAR GONZALEZ MD Dec 10, 2017 7:52 am
--- NOTE | 2017-12-10 07:55 | Diagnostic Imaging Report ---
INDICATION: Shortness of breath. Comparison made with prior examination 12/08/2017. FINDINGS: There is cardiomegaly. Mediastinum is unremarkable. Lungs are clear. There is no pleural effusion or pneumothorax. IMPRESSION: No acute cardiopulmonary abnormality. Cardiomegaly. Dictated by: Dictated on workstation # [id number]
[2017-12-10] MEDS: LOSARTAN 100 MG (COZAAR) TABLET PO SCH (08:33)
[2017-12-10] MEDS: FUROSEMIDE 40 MG (LASIX) TAB PO SCH (08:33)
[2017-12-10] MEDS: meTOproloL SUCCINATE 50 MG (TOPROL XL) TAB PO SCH (08:33)
[2017-12-10] MEDS: TICAGRELOR 90 MG TABLET (BRILINTA) PO SCH ×2 (08:33→20:20)
[2017-12-10] MEDS ORDERED: RT-ALBUTEROL/IPRATROPIUM 3 ML (DUONEB) VIAL INH SCH (09:00)
[2017-12-10] MEDS ORDERED: ASPIRIN E.C. 81 MG (ECOTRIN) TAB PO SCH (09:00)
[2017-12-10] MEDS ORDERED: RT-LEVALBUTEROL (XOPENEX) 1.25 MG/3 ML NEB NON-FORMULARY INH PRN (14:30)
[2017-12-11 00:07] VITALS: BP 161/84
[2017-12-11] MEDS: RT-LEVALBUTEROL (XOPENEX) 1.25 MG/3 ML NEB NON-FORMULARY INH SCH ×2 (03:12→08:41)
[2017-12-11 04:08] VITALS: BP 134/65
[2017-12-11 04:34] LABS: MAGNESIUM 1.7 MG/DL (1.8-2.4); PHOSPHORUS 3.2 MG/DL (2.3-4.7)
[2017-12-11] MEDS: inSUlin ASPART (NovoLOG) 1 UNIT/0.01 ML (CHARGE PER UNIT) SC SCH ×2 (06:02→11:36)
[2017-12-11] MEDS: GLIMEPIRIDE 1 MG (AMARYL) TAB PO SCH (06:21)
[2017-12-11] MEDS: ENOXAPARIN 40 MG/0.4 ML (LOVENOX) SYR SC SCH (06:21)
[2017-12-11] MEDS: CATHETER FLUSH 10 ML SYR IV SCH (06:22)
--- NOTE | 2017-12-11 06:50 | Pulmonary Progress Note ---
Sepsis Event Evaluation Height, Weight, BMI Height: 5'8.00" Weight: 240lbs. 0.0oz. 108.363283kh; 41.2 BMI Method:Stated Exam Exam Vital Signs Date Time Temp Pulse Resp B/P (MAP) Pulse Ox O2 Delivery O2 Flow Rate FiO2 12/11/17 03:12 90 High Flow N/C 1.50 12/11/17 01:38 95 12/11/17 00:07 98.3 101 18 161/84 (109) 95 High Flow N/C 3.00 12/10/17 19:50 95 Nasal Cannula 2.00 12/10/17 19:35 99.2 102 14 121/77 (92) 96 Nasal Cannula 2.00 12/10/17 19:30 98 12/10/17 19:16 93 High Flow N/C 2.00 12/10/17 15:50 99.3 101 20 135/76 (95) 93 Nasal Cannula 2.00 12/10/17 13:00 97 12/10/17 11:37 98.1 12/10/17 10:00 102 21 91 High Flow N/C 3.00 12/10/17 09:00 Nasal Cannula 1.00 12/10/17 09:00 111 22 High Flow N/C 3.00 12/10/17 08:00 103 18 166/85 (112) 93 High Flow N/C 3.00 12/10/17 07:50 98.5 12/10/17 07:00 110 26 93 High Flow N/C 3.00 12/10/17 07:00 110 I & O 12/11/17 07:00 Intake Total 2620 ml Output Total 1700 ml Balance 920 ml Height & Weight Height: 5'8.00" Weight: 240lbs. 0.0oz. 108.048270ah; 41.2 BMI Method:Stated General Appearance: No Apparent Distress, Anxious, Obese Neck: Normal Inspection (AVD was reported emergency room currently is resolved) Respiratory: Chest Non Tender, No Accessory Muscle Use, No Respiratory Distress , Other (U fine bibasilar rales chest is otherwise clear) Cardiovascular: Regular Rate, Rhythm, No Edema, No Gallop, No JVD, No Murmur, Normal Peripheral Pulses Capillary Refill: Less Than 3 Seconds Gastrointestinal: normal bowel sounds, non tender, soft Extremity: Normal Capillary Refill, Normal Inspection, Other (Trace pedal edema symmetrical) Neurologic/Psychiatric: Alert, Oriented x3, Normal Mood/Affect Skin: Normal Color, Warm/Dry, Other (No evidence for urticaria there is a fine erythematous papular eruption over the back of his right hand and forearm without significant edema and no induration is noted there is no increase in warmth.) Results Lab Laboratory Tests 12/10/17 03:15 Assessment/Plan Assessment/Plan Hypoxia with acute on chronic respiratory failure with recurrent hospitalizations -SVNS Q4 CAD s/p cath with 2 stents placed -Cardiology following Obesity with OHS -If pt is able to get [employer] aid I maybe able to get him a BiPAP. Episodes of HTN. Diastolic CHF bilateral pleural effussions/Pulmonary edema -doubt PNA Lung nodule -will repeat CT scan as out patient in 6 mo. GIULIANA WARNER DO Dec 11, 2017 06:50
--- NOTE | 2017-12-11 07:27 | Cardiology Progress Note ---
Subjective Date Seen by Provider: Dec 11, 2017 Time Seen by Provider: 07:25 Subjective/Events-last exam Patient is laying down in bed, feeling better, no chest pain, had some cough this morning. Review of Systems General: No Chills, No Night Sweats, No Fatigue, No Malaise, No Appetite, No Other HEENT: No Head Aches, No Visual Changes, No Eye Pain, No Ear Pain, No Dysphasia , No Sinus Congestion, No Post Nasal Drip, No Sore Throat, No Other Pulmonary: No Dyspnea; Cough; No Pleuritic Chest Pain, No Other Cardiovascular: No: Chest Pain, Palpitations, Orthopnea, Paroxysmal Noc. Dyspnea, Edema, Lt Headedness, Other Objective-Cardiology Exam Last Set of Vital Signs Vital Signs 12/09/17 12/11/17 21:00 04:08 Temp 97.7 Pulse 100 Resp 18 B/P (MAP) 134/65 (88) Pulse Ox 93 O2 Delivery High Flow N/C O2 Flow Rate 3.00 FiO2 93 Capillary Refill : Less Than 3 Seconds I&O Intake and Output 12/11/17 00:00 Intake Total 4120 ml Output Total 1700 ml Balance 2420 ml Intake Oral 2920 ml IV Total 1200 ml Output Urine Total 1700 ml # Voids 5 General: Alert, Oriented X3, Cooperative HEENT: Atraumatic, PERRLA Neck: Supple, No JVD, No Thyromegaly Lungs: Clear to Auscultation, Normal Air Movement Heart: Regular Rate, Normal S1, Normal S2, No Murmurs Abdomen: Normal Bowel Sounds, Soft, No Tenderness, No Hepatosplenomegaly, No Masses Extremities: No Clubbing, No Cyanosis, No Edema, Normal Pulses, No Tenderness/ Swelling Skin: No Rashes, No Breakdown, No Significant Lesion Neuro: Normal Gait, Normal Speech, Strength at 5/5 X4 Ext, Normal Tone, Sensation Intact Psych/Mental Status: Mental Status NL, Mood NL Results Lab Laboratory Tests Test 12/10/17 11:27 12/10/17 16:18 12/10/17 20:44 12/11/17 04:10 Range/Units Glucometer 255 H 169 H 244 H 70-110 MG/DL Phosphorus Level 3.2 2.3-4.7 MG/DL Magnesium Level 1.7 L 1.8-2.4 MG/DL Test 12/11/17 05:25 Range/Units Glucometer 139 H 70-110 MG/DL A/P-Cardiology Admission Diagnosis Acute respiratory failure Chest pain nonspecific etiology Diabetes mellitus Hypertension Assessment/Plan Shortness of breath, status post acute respiratory failure, had another episode of shortness of breath last night lasted for about an hour and resolved. Coronary artery disease status post cardiac catheterization and 2 stents deployment 1. Multivessel coronary artery disease 2. Severe stenosis in the proximal circumflex artery with primary stenting using Rocío 3.012 mm expanded to 3.25 mm with excellent results 3. Severe stenosis in the mid right coronary artery with primary stenting using 2.512 mm Rocío expanded to 2.75 with excellent results 4. Mild to moderate disease in the proximal LAD, severe stenosis at the ostium of first diagonal artery that is very small artery 5. Moderate disease in the proximal ramus intermedius artery 6. Prominent left ventricle with mild diffuse left ventricular hypokinesia with estimated ejection fraction 50 percent Patient is allergic to aspirin, I will maintain him on Brilinta and monitor closely, educated about the importance of compliance with medication Labile hypertension, episodes of hypertensive emergency. Better controlled blood pressure at this time. Continue to monitor Bilateral pleural effusion, managed by Dr Soto Diabetes mellitus, poorly controlled, educated about compliance with medication , managed by primary care team History of frequent premature ventricular contractions. Possible underlying sleep apnea. Followed and managed by Dr. Soto BMI 37, obesity, educated on weight loss. Okay for discharge, appointment in my office next week, patient will need samples of Brilinta Clinical Quality Measures DVT/VTE Risk/Contraindication: Risk Factor Score Per Nursin RFS Level Per Nursing on Admit: 3=High CROW KNIGHT MD Dec 11, 2017 07:27
[2017-12-11 08:23] VITALS: BP 100/60
[2017-12-11] MEDS: LOSARTAN 100 MG (COZAAR) TABLET PO SCH (08:32)
[2017-12-11] MEDS: amLODIPine 10 MG (NORVASC) TAB PO SCH (08:32)
[2017-12-11] MEDS: TICAGRELOR 90 MG TABLET (BRILINTA) PO SCH (08:32)
[2017-12-11] MEDS: meTOproloL SUCCINATE 50 MG (TOPROL XL) TAB PO SCH (08:32)
[2017-12-11] MEDS: FUROSEMIDE 40 MG (LASIX) TAB PO SCH (08:32)
[2017-12-11 08:33] VITALS: BP 170/83
[2017-12-11] MEDS: ADVAIR HFA 115/21 MCG INHALER 8 GM IH SCH (08:41)
[2017-12-11] MEDS ORDERED: FLUT12AE4 IH (10:16)
[2017-12-11] MEDS ORDERED: AMLO10TA6 PO (10:16)
[2017-12-11] MEDS ORDERED: TICA90TA PO (10:16)
[2017-12-11] MEDS ORDERED: LOSA100T8 PO (10:16)
[2017-12-11] MEDS ORDERED: ATOR10TA PO (10:21)
[2017-12-11] MEDS ORDERED: FURO40TA4 PO (10:21)
[2017-12-11] MEDS ORDERED: METO50TA15 PO (10:21)
[2017-12-11] MEDS ORDERED: GLMP1T PO (10:21)
--- NOTE | 2017-12-11 10:32 | Discharge Inst-Simple/Standard ---
Discharge Inst-Standard Discharge Medications New, Converted or Re-Newed RX: Transmitted to Pharmacy Patient Instructions/Follow Up Plan of Care/Instructions/FU: Please continue to take your medications as written. Please follow up with Dr Acuna at [facility] tomorrow at 840am to follow up this hospital stay. If you feel your symptoms are getting worse you can also call Dr Soto's office to bee seen sooner than next week. Activity as Tolerated: Yes Discharge Diet: Low Sodium Diet, ADA Diet, Cardiac Diet Return to The Hospital For: Worsening shortness of breath, confusion, difficulty breathing, if you feel you are getting worse. CHAR GONZALEZ MD Dec 11, 2017 10:32
[2017-12-11 10:38] LABS: URINE CREAT 80 MG/DL (30-125)
[2017-12-11 11:12] LABS: CREATININE 24 HOUR,URINE 2960 MG/24H (1000-1700); TOTAL VOLUME,URINE 3700 ML
[2017-12-11 12:00] VITALS: BP 141/78
[2017-12-11 13:50] VITALS: BP 141/78
== END 2017-12-11 13:50 | disposition home or self-care (01) | DRG 981 ==
LOC: EDUNIT# 13:35 → ER 13:38 → ICU 14:49 → 4TH 12-08 14:30 → ICU 12-09 17:43 → 4TH 12-10 12:30
PROVIDERS: ADMIT Internal Medicine; ATTEND Internal Medicine
PROC: 5A1945Z Respiratory Ventilation, 24-96 Consecutive Hours (ICD-10-PCS; 2017-12-06)
PROC: 027135Z Dilation of Coronary Artery, Two Arteries with Two Drug-eluting Intraluminal Devices, Percutaneous Approach (ICD-10-PCS; principal; 2017-12-09)
PROC: 4A023N7 Measurement of Cardiac Sampling and Pressure, Left Heart, Percutaneous Approach (ICD-10-PCS; 2017-12-09)
PROC: B2151ZZ Fluoroscopy of Left Heart using Low Osmolar Contrast (ICD-10-PCS; 2017-12-09)
PROC: B2111ZZ Fluoroscopy of Multiple Coronary Arteries using Low Osmolar Contrast (ICD-10-PCS; 2017-12-09)
DX: J96.21 Acute and chronic respiratory failure with hypoxia (principal); I11.0 Hypertensive heart disease with heart failure; I50.33 Acute on chronic diastolic (congestive) heart failure; J90 Pleural effusion, not elsewhere classified; I25.10 Atherosclerotic heart disease of native coronary artery without angina pectoris; E66.2 Morbid (severe) obesity with alveolar hypoventilation; Z68.36 Body mass index [BMI] 36.0-36.9, adult; J44.9 Chronic obstructive pulmonary disease, unspecified; R91.1 Solitary pulmonary nodule; E78.00 Pure hypercholesterolemia, unspecified; E11.40 Type 2 diabetes mellitus with diabetic neuropathy, unspecified; K21.9 Gastro-esophageal reflux disease without esophagitis; K44.9 Diaphragmatic hernia without obstruction or gangrene; M19.91 Primary osteoarthritis, unspecified site; F41.9 Anxiety disorder, unspecified; L40.9 Psoriasis, unspecified; Z88.8 Allergy status to other drugs, medicaments and biological substances
CPT/HCPCS: 31500; 36415; 36600; 51702; 71045; 80048; 80053; 80306; 81000; 82384; 82570; 82805; 82962; 83605; 83735; 83835; 83880; 84100; 84439; 84443; 84481; 84484; 85007; 85025; 85027; 87040; 87081; 87804; 93005; 93306; 93458; 93975; 94002; 94003; 94640; 94664; 94760; 94761; 94799; 96374; 99291

== ENCOUNTER 2017-12-23 10:30 | Outpatient (RCR) | payer OTHER ==
[~2017-12-23 10:30] MED LIST changes: +AMLO10TA7 PO; +ATOR10TA PO; +FLUT12AE4 IH; +FURO40TA4 PO; +GLMP1T PO; +LOSA100T57 PO; +METO50TA15 PO; +TICA90TA PO
--- NOTE | 2017-12-23 12:01 | Pulmonary Rehab Eval/Txmt Plan ---
Pulmonary Rehab Initial Eval Information Paper Evaluation Completed: Yes Date: Dec 23, 2017 Therapist: VICTOR MANUEL TRUJILLO Diagnosis: J44.9 Referring Physician: DR. GONZALEZ Pulmonary Rehab Treatment Plan Treatment P Treatment Periord: Initial Diagnosis Diagnosis: J44.9 COPD Date: Dec 23, 2017 Barriers to Learning Barriers: Cognitive Assessment/Problems Exercise: Deconditioning, Decreased Exer Tolerance, No Regular Exercise, Sedentary Type: 30 min aerobic exercise or more per pts tolerance Frequency: 2 times per week Duration: 30 min or more aerobic exercise per pts tolerance Barriers to Exercise: right foot and knee pain Initial MET Level: 1 Aerobic Exercise/Goals Freq: time per week minus MI: 2 Intensity: 1 Type: Arm Ergometry, Bike, Scifi/Nustep, Walking Pt appears to have cognitive barrier; unknown dx. He is motivated to start rehab , but is going though personal financial counselor. Currently pt has a 25.00 co-pay (per personal financial counselor office); waiting for [place] to approve. Pt scheduled to start Pulmonary Rehab education on January 21; upon completion, pt will let us know if he can afford to start exercise. TESHA TAY DO Dec 23, 2017 12:01
[2018-03-20 13:10] VITALS: BP 108/80
== END 2018-03-23 | disposition home or self-care (01) ==
LOC: PULM 10:30
PROVIDERS: ATTEND Family Medicine
DX: J44.9 Chronic obstructive pulmonary disease, unspecified (principal)
CPT/HCPCS: 99211

== ENCOUNTER 2018-01-27 19:52 | Outpatient (CLI) | payer OTHER ==
[~2018-01-27 19:52] MED LIST changes: +AMLO10TA6 PO; -AMLO10TA7 PO; -LOSA100T57 PO; +LOSA100T8 PO
== END 2018-01-28 07:05 | disposition home or self-care (01) ==
LOC: SLEEP 19:52
PROVIDERS: ATTEND Nurse Practitioner Family
DX: G47.10 Hypersomnia, unspecified (principal); R09.02 Hypoxemia; R06.00 Dyspnea, unspecified
CPT/HCPCS: 95811

== ENCOUNTER → 2018-05-15 | Outpatient (CLI) | payer OTHER ==
[~2018-05-15] MED LIST changes: -AMLO10TA6 PO; +AMLO10TA7 PO; +CATHETER FLUSH 10 ML SYR IV PRN; +HOLD METFORMIN - RECEIVED CONTRAST 20 ML VIAL IV SCH; +IOHEXOL 350 MG/ML 100 ML (OMNIPAQUE 350) VIAL IV ONE; +LOSA100T57 PO; -LOSA100T8 PO
[2018-05-15 13:20] LABS: BUN/CREATININE RATIO 8; CREATININE SERUM 1.09 MG/DL (0.60-1.30); GFR ESTIMATED > 60
--- NOTE | 2018-05-15 19:39 | Diagnostic Imaging Report ---
PROCEDURE: CT chest with contrast only. TECHNIQUE: Multiple contiguous axial images were obtained through the chest after administration of intravenous contrast. Auto Exposure Controls were utilized during the CT exam to meet ALARA standards for radiation dose reduction. DATE: May 15, 2018. COMPARISON: Chest radiograph, December 10, 2017. CT chest, December 06, 2017. INDICATION: 57-year-old male, followup pulmonary nodule. FINDINGS: There is a noncalcified right lower lobe pulmonary nodule on axial image 18, measuring 7 mm in size. This is unchanged since November 2017. There is no identified new or enlarging pulmonary nodule. There is minimal atelectasis in the dependent aspects of the lower lobes. There is no additional focal airspace consolidation. There is no pneumothorax. There is no pleural effusion. The central airways are patent. There is no identified large pulmonary embolus. There is nondiagnostic assessment for segmental and subsegmental pulmonary emboli given timing of the contrast bolus. The main pulmonary artery is normal in caliber. The heart is not enlarged. There is no identified pericardial effusion. There is no identified abnormally enlarged mediastinal, hilar or axillary lymph node which meets CT size criteria for adenopathy. The liver appears diffusely low in attenuation suggesting diffuse fatty infiltration of the liver. The outer liver contours are not nodular. The patient is status post cholecystectomy. There is a low-attenuation lesion in the left kidney on axial image 37, measuring 8 mm in size with internal attenuation of zero Hounsfield units consistent with benign renal cysts. There is a small accessory splenule on axial image 37. Additional evaluation of the imaged portions of the upper abdomen is unremarkable. There are degenerative changes of the spine. There is no identified acute bony abnormality. There are multilevel flowing syndesmophytes of the thoracic spine without prominent disc height loss. This potentially may relate to diffuse idiopathic skeletal hyperostosis. IMPRESSION: CT chest: 1. Stable 7 mm right lower lobe pulmonary nodule since November 2017. Recommend followup CT chest in six months to evaluate for continued stability. 2. No current acute cardiopulmonary abnormality. 3. Mild diffuse fatty infiltration of the liver. Dictated by: Dictated on workstation # [id number]
== END ==
LOC: RAD 12:48
PROVIDERS: ATTEND Nurse Practitioner Family
DX: K76.0 Fatty (change of) liver, not elsewhere classified (principal); J30.2 Other seasonal allergic rhinitis; G47.10 Hypersomnia, unspecified; R91.1 Solitary pulmonary nodule; Z78.9 Other specified health status
CPT/HCPCS: 36415; 71260; 82565; 84520

== ENCOUNTER → 2018-06-10 | Outpatient (CLI) | payer OTHER ==
[~2018-06-10] MED LIST changes: -CATHETER FLUSH 10 ML SYR IV PRN; -HOLD METFORMIN - RECEIVED CONTRAST 20 ML VIAL IV SCH; -IOHEXOL 350 MG/ML 100 ML (OMNIPAQUE 350) VIAL IV ONE
--- NOTE | 2018-06-10 10:01 | Diagnostic Imaging Report ---
INDICATION: History of cervical fracture. COMPARISON: The exam is interpreted in correlation with a CT from 02/16/2012. FINDINGS: The right-sided C2 fracture present on CT is imperceptible at this exam, presumed to reflect its interval healing or decreased sensitivity owing to the differing modalities. An acute fracture or malalignment is not identified. There are degenerative changes to the mid to lower cervical spine as chronic findings showing mild interval progression. The prevertebral space is normal. IMPRESSION: The previously demonstrated C2 fracture is imperceptible at this exam. Degenerative changes are aligned anatomically. No acute appearing abnormality is radiographically appreciable. Dictated by: Dictated on workstation # [id number]
--- NOTE | 2018-06-10 10:33 | Diagnostic Imaging Report ---
Left foot at 930 hours. INDICATION: Charcot foot. 3 views were obtained. FINDINGS: The previous left foot exam of 07/18/2013 noted an incompletely healed fracture of the base of fifth metatarsal. In the interval since the prior exam, a portion of the base of fifth metatarsal has been surgically resected. There is now ankylosis of the remaining portion of the fifth metatarsal and the base of the fourth metatarsal. Also, in the interval since the prior exam, the degenerative disease involving the first metatarsal phalangeal joint has progressed. There is no fracture, dislocation or acute bony abnormality evident. There is no sign of bony destruction to suggest active osteomyelitis either. The prominent calcaneal spur seen previously is again visualized. The soft tissues are unremarkable. IMPRESSION: 1. There are postsurgical and degenerative changes involving the foot as described above. There is no acute bony abnormality. 2. If clinical concern regarding an acute abnormality persists, then MRI would be recommended for further study. Dictated by: Dictated on workstation # [id number]
--- NOTE | 2018-06-10 12:04 | Diagnostic Imaging Report ---
EXAMINATION: Lumbar spine at 0937 hours. INDICATION: Back pain. FINDINGS: The lateral view suggests there may be a mild compression deformity of the superior endplate of L4. This finding was not present on the prior CT thoracic/lumbar spine exam of 02/16/2012. I suspect this injury is long-standing in nature; however, if there is clinical concern regarding an acute or subacute abnormality, then MRI should be considered for further study. The other vertebral body heights are within normal limits and the intervertebral spaces are fairly well-maintained. As noted on the previous exam, S1 is a transitional vertebra. There is no sign of a paraspinal mass. There is mild symmetrical sclerosis of the sacroiliac joints. IMPRESSION: 1. There appears to a mild compression deformity of the superior endplate of L4. Most likely, this injury is long-standing in nature. Recommendations as above. 2. There is no acute bony abnormality noted otherwise. Dictated by: Dictated on workstation # [id number]
== END ==
LOC: RAD 09:17
PROVIDERS: ATTEND Physical Medicine & Rehabilitation
DX: Z02.71 Encounter for disability determination (principal); M24.675 Ankylosis, left foot; M19.072 Primary osteoarthritis, left ankle and foot; M77.32 Calcaneal spur, left foot; M53.3 Sacrococcygeal disorders, not elsewhere classified; E11.610 Type 2 diabetes mellitus with diabetic neuropathic arthropathy; Z87.81 Personal history of (healed) traumatic fracture; Z98.890 Other specified postprocedural states
CPT/HCPCS: 72040; 72100; 73630

== ENCOUNTER → 2018-06-23 | Outpatient (CLI) | payer OTHER ==
[~2018-06-23] MED LIST changes: +RT-ALBUTEROL SULF 2.5 MG/3 ML PRE-MIX VIAL INH ONE
== END ==
LOC: RT 14:31
PROVIDERS: ATTEND Internal Medicine Critical Care Medicine
DX: R06.02 Shortness of breath (principal); R09.02 Hypoxemia; J30.2 Other seasonal allergic rhinitis; G47.10 Hypersomnia, unspecified
CPT/HCPCS: 94060; 94726; 94729

== ENCOUNTER 2018-09-25 20:32 | Emergency (ER) | payer SELFPAY ==
[~2018-09-25] VITALS: Ht 175.3 cm; Wt 112.0 kg
[~2018-09-25 20:32] MED LIST changes: +RANI-613 PO; -RANI150T46 PO; -RT-ALBUTEROL SULF 2.5 MG/3 ML PRE-MIX VIAL INH ONE
--- NOTE | 2018-09-25 20:55 | NUR ---
PT UNABLE TO VOID AT THIS TIME.
[2018-09-25] MEDS ORDERED: RANI150T90 PO (20:56)
[2018-09-25] MEDS ORDERED: CLOP75TA69 PO (20:56)
[2018-09-25] MEDS ORDERED: ONDANSETRON 4 MG (ZOFRAN) ORAL DISSOLVE TAB PO ONE (21:00)
--- NOTE | 2018-09-25 21:00 | ED GI ---
General Chief Complaint: Abdominal/GI Problems Stated Complaint: NAUSEA,BLOATED Nursing Triage Note: pt states that he started feeling nauseated and bloated last night and it is just getting worse Sepsis Screen: No Definite Risk Source of Information: Patient Exam Limitations: No Limitations History of Present Illness Date Seen by Provider: Sep 25, 2018 Time Seen by Provider: 20:46 Initial Comments The patient presents by private conveyance to the ER with chief complaint of feeling bloated and distended in his abdomen as well as nausea with dry heaving. He been eating and drinking although less today. His last bowel movement was at 2:00 in the morning sitting time his symptoms started. He said it was soft but that's usual for him. He has a history of diabetes. No recent trauma to the abdomen or surgeries. No hernia. He had his appendix out but no other abdominal surgeries. No fever chills or sweats but he did say he felt a little warm earlier when he got here. He did take 3 Tylenol couple hours ago. He does take your medicines for history of duodenal ulcer when he was a young child. No history of heart failure or liver disease. Patient endorses colonoscopy about 4 years ago without mention of polyps. He is an insulin-dependent diabetic with a history of a stent in his coronaries by Dr. Ortega. Primary care by Dr. Robbins. Allergies and Home Medications Allergies Coded Allergies: aspirin (Verified Allergy, Severe, 12/10/17) Insulins (Unverified Allergy, Unknown, 06/06/15) Penicillins (Unverified Allergy, Unknown, 07/19/13) Sulfa (Sulfonamide Antibiotics) (Unverified Allergy, Unknown, 07/19/13) lactose (Unverified Allergy, Unknown, 12/10/17) CAUSES GAS lidocaine (Verified Allergy, Unknown, 01/06/16) peanut (Unverified Allergy, Unknown, air closes off, 07/19/13) strawberry (Unverified Allergy, Unknown, airway closes off, 07/19/13) codeine (Unverified Adverse Reaction, Mild, NAUSEA, 02/03/14) Uncoded Allergies: ENVIRONMENTAL (Allergy, Unknown, 07/19/13) raw egg whites (Adverse Reaction, Unknown, upset stomach, 12/09/17) Home Medications Amlodipine Besylate 10 Mg Tablet, 10 MG PO DAILY Prescribed by: CHAR GONZALEZ on 12/11/17 1016 Ascorbate Calcium 500 Mg Tablet, 500 MG PO DAILY, (Reported) Atorvastatin Calcium 10 Mg Tablet, 10 MG PO HS Prescribed by: CHAR GONZALEZ on 12/11/17 1021 Butterbur Root Extract 75 Mg Capsule, 75 MG PO DAILY, (Reported) Cholecalciferol (Vitamin D3) 1,000 Unit Capsule, 1,000 UNIT PO DAILY, (Reported) Clopidogrel Bisulfate 75 Mg Tablet, 75 MG PO DAILY, (Reported) Cyanocobalamin (Vitamin B-12) 1,000 Mcg Capsule, 1,000 MCG PO DAILY, (Reported) Fexofenadine HCl 180 Mg Tablet, 180 MG PO DAILY, (Reported) Fluticasone/Salmeterol 12 Gm Hfa.aer.ad, 0 PUFF IH BID@ BIN [id number] [facility] [id number] Prescribed by: CHAR GONZALEZ on 12/11/17 1016 Folic Acid 0.8 Mg Capsule, 0.8 MG PO DAILY, (Reported) Furosemide 40 Mg Tablet, 40 MG PO DAILY Prescribed by: CHAR GONZALEZ on 12/11/17 1021 Glimepiride 1 Mg Tab, 1 MG PO DAILY@0630 Prescribed by: CHAR GONZALEZ on 12/11/17 1021 Losartan Potassium 100 Mg Tablet, 100 MG PO DAILY Prescribed by: CHAR GONZALEZ on 12/11/17 1016 Magnesium Oxide 250 Mg Tablet, 250 MG PO DAILY, (Reported) Metoprolol Tartrate 50 Mg Tablet, 50 MG PO BID Prescribed by: CHAR GONZALEZ on 12/11/17 1021 Multivitamin 1 Each Tablet, 1 TAB PO DAILY, (Reported) Omega3/Dha/Epa/Fish Oil/Vit D3 1 Each Capsule, 1 CAP PO DAILY, (Reported) Omeprazole Magnesium 20 Mg Tablet.dr, 20 MG PO DAILY, (Reported) Ranitidine HCl 150 Mg Tablet, 150 MG PO BID, (Reported) Ticagrelor 90 Mg Tablet, 90 MG PO BID Prescribed by: CHAR GONZALEZ on 12/11/17 1016 [Gymnema Sylvestris] , 400 MG PO DAILY, (Reported) Patient Home Medication List Home Medication List Reviewed: Yes Review of Systems Review of Systems Constitutional: No chills, No diaphoresis EENTM: No Blurred Vision, No Double Vision Respiratory: Denies Cough, Denies Shortness of Air Cardiovascular: Denies Chest Pain, Denies Edema Gastrointestinal: Denies Constipated, Denies Diarrhea; Nausea, Poor Appetite; Denies Poor Fluid Intake, Denies Vomiting Genitourinary: Denies Burning, Denies Discharge Musculoskeletal: No back pain, No joint pain Skin: No pruritus, No rash Psychiatric/Neurological: Denies Headache, Denies Numbness, Denies Paresthesia Past [id number]-[id number] Hx Patient Social History Alcohol Use: Occasionally Uses Alcohol Beverage of Choice: Wine Recreational Drug Use: No Smoking Status: Never a Smoker 2nd Hand Smoke Exposure: No Recent Foreign Travel: No Contact w/Someone Who Travel: No Recent Infectious Disease Expo: Yes Recent Hopitalizations: No Immunizations Up To Date Tetanus Booster (TDap): Unknown Date of Pneumonia Vaccine: Aug 18, 2013 Seasonal Allergies Seasonal Allergies: No Past Medical History Surgeries: Yes (CARPAL TUNNEL RELASE SX, LEFT HAND SURGERY, L FOOT, upper/lower gi scope) Abdominal, Gallbladder, Orthopedic, Tonsillectomy Respiratory: Yes (ASTHMA/CHRONIC BRONCHITIS/INHALER USE NEEDED) Asthma Currently Using CPAP: No Currently Using BIPAP: No Cardiac: Yes High Cholesterol, Hypertension Neurological: No Neuropathy Reproductive Disorders: No Sexually Transmitted Disease: No Genitourinary: No Gastrointestinal: Yes Gastroesophageal Reflux, Polyps, Hiatal Hernia Musculoskeletal: Yes (Left foot sx) Arthritis Endocrine: Yes Diabetes, Non-Insulin dep HEENT: No Loss of Vision: Denies Hearing Impairment: Denies Cancer: No Psychosocial: Yes Anxiety Integumentary: Yes Psoriasis Blood Disorders: No Adverse Reaction/Blood Tranf: No Family Medical History Congestive heart failure 19 MOTHER Family history: Arthritis 19 FATHER 19 MOTHER Family history: Cardiovascular disease 19 FATHER 19 MOTHER Family history: Diabetes mellitus 19 FATHER Family history: Glaucoma 19 MOTHER Family history: Hypertension 19 FATHER 19 MOTHER Family history: Osteoporosis 19 MOTHER Hearing loss 19 MOTHER Heart disease 19 FATHER 19 MOTHER Myocardial infarction 19 FATHER 19 MOTHER (DBL BYPASS) Stroke 19 MOTHER (MICRO STROKES) No Family History of: Abdominal aortic aneurysm [place]'s disease Alcoholism Aphasia Cancer Cancer of colon Cataract Chest pain Congenital heart disease Cystic fibrosis Dementia Dysphagia Family history: Allergy Family history: Alzheimer's disease Family history: Asthma Family history: Breast disease Family history: Coronary thrombosis Family history: Gastrointestinal disease Family history: Thyroid disorder Headache Hereditary disease History of - anemia History of - disorder History of - respiratory disease History of drug abuse Human immunodeficiency virus (HIV) seropositivity Hypercholesterolemia Infertile Kidney disease Malignant neoplasm of lung Parkinson's disease Prostate cancer Psychotic disorder Seizure disorder Tuberculosis Visual impairment Heart Disease, Diabetes, Hypertension Physical Exam Vital Signs Vital Signs - First Documented 09/25/18 20:35 Temp 97.2 Pulse 96 Resp 20 B/P (MAP) 154/88 (110) Pulse Ox 96 O2 Delivery Room Air Capillary Refill : Less Than 3 Seconds Height/Weight/BMI Height: 5'9.00" Weight: 247lbs. 7.0oz. [id number]; 41.2 BMI Method:Stated General Appearance: WD/WN, no apparent distress HEENT: PERRL/EOMI, normal ENT inspection, pharynx normal Neck: non-tender, full range of motion Respiratory: no respiratory distress, no accessory muscle use Cardiovascular: normal peripheral pulses, regular rate, rhythm Peripheral Pulses: 2+ Dorsalis Pedis (R), 2+ Left Dors-Pedis (L) Gastrointestinal: normal bowel sounds, no organomegaly, distended (tympanic), tenderness (mild, diffuse generalized on deep palpation) Neurologic/Psychiatric: alert, normal mood/affect, oriented x 3 Skin: normal color, warm/dry Procedures/Interventions Date of ETT Placement: Dec 06, 2017 Time of ETT Placement: 1349 Progress/Results/Core Measures Results/Orders Lab Results Laboratory Tests Test 09/25/18 21:05 09/25/18 21:06 09/25/18 22:42 09/26/18 00:05 Range/Units White Blood Count 11.0 4.3-11.0 10^3/uL Red Blood Count 5.53 4.35-5.85 10^6/uL Hemoglobin 15.7 13.3-17.7 G/DL Hematocrit 46 40-54 % Mean Corpuscular Volume 83 80-99 FL Mean Corpuscular Hemoglobin 28 25-34 PG Mean Corpuscular Hemoglobin Concent 34 32-36 G/DL Red Cell Distribution Width 14.4 10.0-14.5 % Platelet Count 358 130-400 10^3/uL Mean Platelet Volume 9.8 7.4-10.4 FL Neutrophils (%) (Auto) 77 H 42-75 % Lymphocytes (%) (Auto) 15 12-44 % Monocytes (%) (Auto) 7 0-12 % Eosinophils (%) (Auto) 1 0-10 % Basophils (%) (Auto) 0 0-10 % Neutrophils # (Auto) 8.4 H 1.8-7.8 X 10^3 Lymphocytes # (Auto) 1.7 1.0-4.0 X 10^3 Monocytes # (Auto) 0.7 0.0-1.0 X 10^3 Eosinophils # (Auto) 0.1 0.0-0.3 10^3/uL Basophils # (Auto) 0.0 0.0-0.1 10^3/uL Sodium Level 138 135-145 MMOL/L Potassium Level 4.0 3.6-5.0 MMOL/L Chloride Level 100 98-107 MMOL/L Carbon Dioxide Level 25 21-32 MMOL/L Anion Gap 13 5-14 MMOL/L Blood Urea Nitrogen 13 7-18 MG/DL Creatinine 1.33 H 0.60-1.30 MG/DL Estimat Glomerular Filtration Rate 55 BUN/Creatinine Ratio 10 Glucose Level 437 *H 70-105 MG/DL Calcium Level 9.2 8.5-10.1 MG/DL Corrected Calcium 9.2 8.5-10.1 MG/DL Total Bilirubin 0.6 0.1-1.0 MG/DL Aspartate Amino Transf (AST/SGOT) 25 5-34 U/L Alanine Aminotransferase (ALT/SGPT) 34 0-55 U/L Alkaline Phosphatase 94 40-136 U/L C-Reactive Protein High Sensitivity 0.54 H 0.00-0.50 MG/DL Total Protein 7.8 6.4-8.2 GM/DL Albumin 4.0 3.2-4.5 GM/DL Lipase 26 8-78 U/L B-Type Natriuretic Peptide < 10.0 <100.0 PG/ML Glucometer 577 *H 415 *H 70-110 MG/DL My Orders Orders - LORETTA ESQUIVEL Cbc With Automated Diff (09/25/18 20:53) Comprehensive Metabolic Panel (09/25/18 20:53) Hs C Reactive Protein (09/25/18 20:53) Lipase (09/25/18 20:53) Ua Culture If Indicated (09/25/18 20:53) Ondansetron Oral Dissolve Tab (Zofran (09/25/18 21:00) Abdomen, Flat & Upright/Decub (09/25/18 20:53) BNP (09/25/18 21:39) Insulin (Regular) Human (Humulin R (Per (09/25/18 22:00) Insulin Determir (Per Unit) (Levemir (Pe (09/25/18 22:00) Accucheck Stat ONCE (09/25/18 22:35) Insulin (Regular) Human (Humulin R (Per (09/25/18 23:00) Ct Abdomen/Pelvis W (09/25/18 22:50) Ed Iv/Invasive Line Start (09/25/18 22:50) Ns Iv 1000 Ml (Sodium Chloride 0.9%) (09/25/18 22:50) Accucheck Stat ONCE (09/25/18 23:52) Medications Given in ED Current Medications Medications Dose Ordered Sig/Brissa Route Start Time Stop Time Status Last Admin Dose Admin Insulin Detemir 15 unit ONCE ONCE SQ 09/25/18 22:00 09/25/18 22:01 DC 09/25/18 22:00 15 UNIT Insulin Human Regular 15 unit ONCE ONCE SC 09/25/18 22:00 09/25/18 22:01 DC 09/25/18 22:00 15 UNIT Insulin Human Regular 15 unit ONCE ONCE SC 09/25/18 23:00 09/25/18 23:01 DC 09/25/18 23:20 15 UNIT Ondansetron HCl 4 mg ONCE ONCE PO 09/25/18 21:00 09/25/18 21:01 DC 09/25/18 21:09 4 MG Vital Signs/I&O 09/25/18 20:35 Temp 97.2 Pulse 96 Resp 20 B/P (MAP) 154/88 (110) Pulse Ox 96 O2 Delivery Room Air 09/26/18 00:00 Intake Total 1000 ml Balance 1000 ml Blood Pressure Mean: 110 Progress Progress Note : Time: 20:59 Progress Note Plain films of the abdomen suspecting ileus versus less likely obstruction. Patient said he had a colonoscopy 4 years ago so colon cancer is much less li lino. He mentions that his colon was 6 inches longer than usual but no other pathology found. Labs and urinalysis. Could not find a record of a colonoscopy that did see an EGD from 2011. Diagnostic Imaging Diagonstic Imaging: Xray Plain Films/CT/US/NM/MRI: abdomen (KUB), pelvis Comments Air-fluid level seen. Prominent bowel gas. No definitive bowel obstruction. Reviewed: Reviewed by Me Diagonstic Imaging: CT (with IV contrast) Plain Films/CT/US/NM/MRI: abdomen, pelvis Comments Findings suggesting mild diffuse ileus. Low-grade small bowel obstruction not excluded but less likely. No bowel perforation or abscess formation. Reviewed: Reviewed by Me Departure Impression Primary Impression: Ileus Additional Impression: Hyperglycemia due to type 2 diabetes mellitus Qualified Codes: E11.65 - Type 2 diabetes mellitus with hyperglycemia; Z79.4 - group home (current) use of insulin Disposition: HOME, SELF-CARE Condition: Improved Departure-Patient Inst. Decision time for Depature: 00:43 Referrals: KATE CORONADO MD (PCP/Family) Primary Care Physician Patient Instructions: Postoperative Ileus (DC) Add. Discharge Instructions: Expect your ileus to hang around for a couple days. Stick to a liquid diet and as soon as nausea and distention and pain improved and he started to pass gas then you can increase your diet to a more bland diet high in fiber. Or nausea comes back you can take one tablet of Zofran every 6 hours as needed. You may use ibuprofen or Tylenol as necessary for pain. If your symptoms persist or if they do not respond to Tylenol Motrin and Zofran or you develop a fever especially above 102.6 then you should return to the nearest ER for evaluation and management. All discharge instructions reviewed with patient and/or family. Voiced understanding. Scripts Ondansetron (Ondansetron Odt) 4 Mg Tab.rapdis 4 MG PO Q6H PRN for NAUSEA/VOMITING, #8 TAB 0 Refills Prov: LORETTA ESQUIVEL 09/26/18 LORETTA ESQUIVEL Sep 25, 2018 21:00
[2018-09-25 21:16] LABS: BASOPHILS % (AUTO) 0 % (0-10); EOSINOPHILS # (AUTO) 0.1 10^3/uL (0.0-0.3); EOSINOPHILS % (AUTO) 1 % (0-10); HEMATOCRIT 46 % (40-54); HEMOGLOBIN 15.7 G/DL (13.3-17.7); LYMPHOCYTES # (AUTO) 1.7 X 10^3 (1.0-4.0); LYMPHOCYTES % (AUTO) 15 % (12-44); MEAN CORPUSCULAR HEMOGLOBIN 28 PG (25-34); MEAN CORPUSCULAR HGB CONC 34 G/DL (32-36); MEAN CORPUSCULAR VOLUME 83 FL (80-99); MEAN PLATELET VOLUME 9.8 FL (7.4-10.4); MONOCYTES # (AUTO) 0.7 X 10^3 (0.0-1.0); MONOCYTES % (AUTO) 7 % (0-12); NEUTROPHILS # (AUTO) 8.4 X 10^3 (1.8-7.8); NEUTROPHILS % (AUTO) 77 % (42-75); PLATELET COUNT 358 10^3/uL (130-400); RED CELL DISTRIBUTION WIDTH 14.4 % (10.0-14.5)
[2018-09-25 21:36] LABS: BILIRUBIN,TOTAL 0.6 MG/DL (0.1-1.0); CALCIUM 9.2 MG/DL (8.5-10.1); CREATININE SERUM 1.33 MG/DL (0.60-1.30); TOTAL PROTEIN 7.8 GM/DL (6.4-8.2)
[2018-09-25] MEDS ORDERED: inSUlin (REGULAR) HUMAN 1 UNIT/0.01 ML (CHARGE PER UNIT) SC ONE ×2 (22:00→23:00)
--- NOTE | 2018-09-25 22:00 | Diagnostic Imaging Report ---
INDICATION: Abdominal pain. EXAMINATION: Abdomen at 9:26 p.m. Supine and erect views were obtained. FINDINGS: In the interval since the previous exam of 01/06/2016 several dilated gas-filled segments of small bowel have developed in the mid abdomen. There also appear to be a few air-fluid levels present. There is a moderate amount of gas within the colon as well. This bowel gas pattern is nonspecific and could be secondary to an ileus. It would be less likely that there is a partial or intermittent small bowel obstruction. However, if further study is desired, then either a contrast small bowel exam or CT of the abdomen and pelvis would be recommended. There is a prominent air-fluid level within the stomach. This is nonspecific. There is no mass or organomegaly appreciated. The suspected phleboliths low in the pelvis, seen previously, are again evident and no different. Surgical clips are also again seen in the right upper quadrant consistent with a prior cholecystectomy. The osseous structures are intact. IMPRESSION: 1. There has been an increase in the amount of gas in both the large and small bowel in the interval since the prior exam. There are a few air-fluid levels present but there is no clear evidence for a bowel obstruction. Recommendations as above. 2. There is no other acute abnormality of the abdomen or pelvis noted. Dictated by: Dictated on workstation # [id number]
[2018-09-25] MEDS ORDERED: NS IV 1000 ML 1,000 ML IV SCH (22:50)
[2018-09-26] MEDS ORDERED: ONDA4TAB11 PO (00:45)
[2018-09-26] MEDS ORDERED: RX-ONDANSETRON 4 MG ODT (ZOFRAN) PPK #4 PO STA (00:46)
[2018-09-26 00:49] VITALS: BP 122/73
--- NOTE | 2018-09-26 07:30 | Diagnostic Imaging Report ---
PROCEDURE: CT abdomen and pelvis with contrast. TECHNIQUE: Multiple contiguous axial images were obtained through the abdomen and pelvis after administration of intravenous contrast. Auto Exposure Controls were utilized during the CT exam to meet ALARA standards for radiation dose reduction. INDICATION: Nausea, bloating, abdominal pain. COMPARISON: None. FINDINGS: The lung bases demonstrate dependent atelectasis. The heart is normal in size. There is no pericardial effusion. The liver demonstrates no focal lesions. The liver is mildly large measuring 23 cm in length. The spleen appears normal. The pancreas demonstrates mild atrophy without acute abnormality seen. The adrenal glands appear normal. The kidneys demonstrate no enhancing masses or hydronephrosis. There is a simple appearing 1 cm cyst in the superior left kidney. The stomach is moderately distended. There is mild wall thickening in the jejunum and several mildly prominent loops of small bowel which appear to have mild wall enhancement. There is diverticulosis of the descending colon without diverticulitis seen. The appendix is normal. No free fluid or free air is seen. There are degenerative changes in the spine with a compression deformity at L3 which is chronic. IMPRESSION: 1. Mildly prominent loops of small bowel with wall enhancement. A definite transition point is not seen. This may represent ileus, possibly due to an enteritis. Low-grade partial bowel obstruction is thought less likely. 2. Colonic diverticulosis without diverticulitis. 3. Hepatomegaly. Dictated by: Dictated on workstation # [id number]
== END 2018-09-26 00:56 | disposition home or self-care (01) ==
LOC: EDUNIT# 20:32 → ER 20:33
DX: K56.7 Ileus, unspecified (principal); E11.65 Type 2 diabetes mellitus with hyperglycemia; J44.9 Chronic obstructive pulmonary disease, unspecified; I10 Essential (primary) hypertension; E78.00 Pure hypercholesterolemia, unspecified; E11.40 Type 2 diabetes mellitus with diabetic neuropathy, unspecified; K21.9 Gastro-esophageal reflux disease without esophagitis; F41.9 Anxiety disorder, unspecified; Z86.010 Personal history of colon polyps; Z79.4 Long term (current) use of insulin; Z95.5 Presence of coronary angioplasty implant and graft; Z79.82 Long term (current) use of aspirin; Z88.2 Allergy status to sulfonamides; Z88.5 Allergy status to narcotic agent; Z88.6 Allergy status to analgesic agent; Z88.8 Allergy status to other drugs, medicaments and biological substances; Z79.02 Long term (current) use of antithrombotics/antiplatelets; Z79.84 Long term (current) use of oral hypoglycemic drugs; Z90.89 Acquired absence of other organs; Z82.49 Family history of ischemic heart disease and other diseases of the circulatory system
CPT/HCPCS: 36415; 74019; 74177; 80053; 82962; 83690; 83880; 85025; 86141

== ENCOUNTER → 2019-01-19 | Outpatient (CLI) | payer SELFPAY ==
[~2019-01-19] MED LIST changes: +CLOP75TA69 PO; +ONDA4TAB11 PO; +RANI150T90 PO
== END ==
LOC: CARD 07:34
PROVIDERS: ATTEND Physician Assistant
DX: I25.10 Atherosclerotic heart disease of native coronary artery without angina pectoris (principal); R07.9 Chest pain, unspecified; E11.9 Type 2 diabetes mellitus without complications; I10 Essential (primary) hypertension; R06.00 Dyspnea, unspecified; R42 Dizziness and giddiness
CPT/HCPCS: 93225; 93226

== ENCOUNTER → 2019-01-21 | Outpatient (CLI) | payer OTHER ==
[~2019-01-21] VITALS: Ht 175 cm; Wt 119.0 kg
[~2019-01-21] MED LIST changes: +ACET-168 PO; +ATOR40TA PO; +CATHETER FLUSH 10 ML SYR IV PRN; +FURO-124 PO; +INSU100I29 SQ; +LOSA50TA63 PO; +MULT-1063 PO; +MULT-440 PO; +OMEG1CAP58 PO; +REGADENOSON 0.4 MG/5 ML SYR (LEXISCAN) IV ONE; +SITA1TAB6 PO
[2019-01-21 09:41] VITALS: BP 216/111
[2019-01-21 10:31] LABS: ALANINE AMINOTRANSFERASE 19 U/L (0-55); ALBUMIN 3.9 GM/DL (3.2-4.5); ALKALINE PHOSPHATASE 84 U/L (40-136); BILIRUBIN,TOTAL 0.5 MG/DL (0.1-1.0); BUN/CREATININE RATIO 9; CALCIUM 9.2 MG/DL (8.5-10.1); CARBON DIOXIDE 26 MMOL/L (21-32); CHLORIDE 101 MMOL/L (98-107); CHOLESTEROL 87 MG/DL (< 200); CREATININE SERUM 0.95 MG/DL (0.60-1.30); GFR ESTIMATED > 60; GLUCOSE 273 MG/DL (70-105); HDL CHOLESTEROL 30 MG/DL (40-60); POTASSIUM 3.3 MMOL/L (3.6-5.0); SODIUM 140 MMOL/L (135-145); TOTAL PROTEIN 7.7 GM/DL (6.4-8.2); TRIGLYCERIDES 109 MG/DL (<150); VLDL CHOLESTEROL 22 MG/DL (5-40)
--- NOTE | 2019-01-21 15:40 | STRESS TEST ---
DATE OF SERVICE: 01/21/2019 LEXISCAN MYOVIEW STRESS TEST REPORT REFERRING PHYSICIAN: [facility]. Baseline heart rate is 103. Baseline blood pressure 216/111. Baseline EKG is sinus tachycardia with occasional PVCs, no ischemic changes. In summary, the patient was injected with 10.13 mCi of technetium-99 Myoview and the resting images were obtained. Then, the patient received 0.4 mg of Lexiscan followed by 31.2 mCi of technetium-99 Myoview. Throughout the test, there were no EKG changes. The resting and stress images were reviewed and compared in the short axis, horizontal long axis, and vertical long axis views. Review of the images showed diaphragmatic attenuation with decreased uptake involving the whole inferior wall, inferoposterior wall and inferolateral wall and anterolateral wall. SSS 21. SDS 3. There is mild reversibility was noted. TID value 1.07. On the gated images, the left ventricle appeared to be normal size with normal contractility. Calculated ejection fraction 52%. CONCLUSION: 1. The patient tolerated Lexiscan well. 2. Fixed defect involving the whole inferior wall, inferolateral wall and inferoseptum with mild reversibility. 3. Normal left ventricular size with mild hypokinesia at the inferior wall. Calculated ejection fraction of 52%. Job ID: [id number] DocumentID: [id number] Dictated Date: 01/21/2019 13:21:41 Broadcast Designer Date: 01/21/2019 15:40:36 Dictated By: CROW KNIGHT MD
== END ==
LOC: CARD 08:24
PROVIDERS: ATTEND Physician Assistant
DX: I25.10 Atherosclerotic heart disease of native coronary artery without angina pectoris (principal); E11.9 Type 2 diabetes mellitus without complications; I11.9 Hypertensive heart disease without heart failure; R00.2 Palpitations
CPT/HCPCS: 36415; 78452; 80053; 80061; 93017

== ENCOUNTER 2019-02-04 06:51 | Day surgery (SDC) | payer OTHER ==
[~2019-02-04] VITALS: Ht 175 cm; Wt 120.0 kg
[2019-02-04] VITALS (9 sets, daily range): BP systolic 106–177; BP diastolic 66–102
[~2019-02-04 06:51] MED LIST changes: -ACET-168 PO; -ATOR40TA PO; -CATHETER FLUSH 10 ML SYR IV PRN; -FURO-124 PO; -INSU100I29 SQ; -LOSA50TA63 PO; -MULT-1063 PO; -MULT-440 PO; -OMEG1CAP58 PO; -REGADENOSON 0.4 MG/5 ML SYR (LEXISCAN) IV ONE; -SITA1TAB6 PO
[2019-02-04 07:30] LABS: ALANINE AMINOTRANSFERASE 33 U/L (0-55); ALBUMIN 4.4 GM/DL (3.2-4.5); ALKALINE PHOSPHATASE 79 U/L (40-136); BILIRUBIN,TOTAL 0.7 MG/DL (0.1-1.0); BUN/CREATININE RATIO 11; CARBON DIOXIDE 24 MMOL/L (21-32); CHLORIDE 102 MMOL/L (98-107); CHOLESTEROL 106 MG/DL (< 200); CREATININE SERUM 1.08 MG/DL (0.60-1.30); GFR ESTIMATED > 60; GLUCOSE 249 MG/DL (70-105); HDL CHOLESTEROL 33 MG/DL (40-60); POTASSIUM 3.4 MMOL/L (3.6-5.0); SODIUM 140 MMOL/L (135-145); TRIGLYCERIDES 118 MG/DL (<150); VLDL CHOLESTEROL 24 MG/DL (5-40)
[2019-02-04] MEDS ORDERED: NS IV 1000 ML 1,000 ML IV SCH ×2 (07:45→10:27)
[2019-02-04] MEDS ORDERED: METO50TA15 PO (08:22)
[2019-02-04] MEDS ORDERED: LOSA50TA63 PO (08:22)
[2019-02-04] MEDS ORDERED: SITA1TAB6 PO (08:22)
[2019-02-04] MEDS ORDERED: MULT-1063 PO (08:26)
[2019-02-04] MEDS ORDERED: OMEG1CAP58 PO (08:26)
[2019-02-04] MEDS ORDERED: FURO-124 PO (08:37)
[2019-02-04] MEDS ORDERED: AMLO10TA7 PO (08:37)
[2019-02-04] MEDS ORDERED: GLMP1T PO (08:37)
[2019-02-04] MEDS ORDERED: ATOR40TA PO (08:37)
[2019-02-04] MEDS ORDERED: NS IV 1000 ML 3,000 ML ONE (08:43)
[2019-02-04] MEDS ORDERED: HEParin 1000 UNIT/ML (10ML VIAL) FOR BOLUS ONE (08:43)
[2019-02-04 08:48] LABS: BASOPHILS % (AUTO) 1 % (0-10); EOSINOPHILS # (AUTO) 0.4 10^3/uL (0.0-0.3); EOSINOPHILS % (AUTO) 5 % (0-10); HEMATOCRIT 45 % (40-54); LYMPHOCYTES # (AUTO) 2.5 X 10^3 (1.0-4.0); LYMPHOCYTES % (AUTO) 32 % (12-44); MEAN CORPUSCULAR HEMOGLOBIN 28 PG (25-34); MEAN CORPUSCULAR HGB CONC 34 G/DL (32-36); MEAN CORPUSCULAR VOLUME 85 FL (80-99); MEAN PLATELET VOLUME 10.3 FL (7.4-10.4); MONOCYTES # (AUTO) 0.6 X 10^3 (0.0-1.0); MONOCYTES % (AUTO) 8 % (0-12); NEUTROPHILS # (AUTO) 4.2 X 10^3 (1.8-7.8); NEUTROPHILS % (AUTO) 55 % (42-75); PLATELET COUNT 294 10^3/uL (130-400); RED CELL DISTRIBUTION WIDTH 13.6 % (10.0-14.5); WHITE BLOOD COUNT 7.6 10^3/uL (4.3-11.0)
--- NOTE | 2019-02-04 08:52 | Diagnostic Imaging Report ---
INDICATION: Dyspnea and hypertension. Time of exam 8:09 AM Correlation is made with prior chest from 12/10/2017. The heart is mildly enlarged. Lungs appear to be clear. There is no infiltrate or failure. No effusion or pneumothorax is detected. IMPRESSION: No acute cardiopulmonary process is detected. Dictated by: Dictated on workstation # [id number]
[2019-02-04 08:56] LABS: INR 0.9 (0.8-1.4); PROTHROMBIN TIME PATIENT 12.3 SEC (12.2-14.7)
[2019-02-04] MEDS ORDERED: ACET-168 PO (09:08)
[2019-02-04] MEDS ORDERED: MULT-440 PO (09:10)
[2019-02-04] MEDS ORDERED: INSU100I29 SQ (09:10)
[2019-02-04] MEDS ORDERED: fentaNYL INJECTION 100 MCG/2 ML AMP ONE (09:15)
[2019-02-04] MEDS ORDERED: MIDAZOLAM 5 MG/5 ML (VERSED) VIAL ONE (09:15)
[2019-02-04 09:18] LABS: BASOPHILS % (MANUAL) 0 %; EOSINOPHILS % (MANUAL) 5 %; LYMPHOCYTES % (MANUAL) 33 %; MONOCYTES % (MANUAL) 8 %; NEUTROPHILS % (MANUAL) 52 %; RBC MORPH NORMAL; REACTIVE LYMPHOCYTES 2 %
[2019-02-04] MEDS ORDERED: LIDOCAINE 1% INJ 20 ML 20 ML VIAL ONE (09:18)
[2019-02-04] MEDS ORDERED: NITRO DRIP 25000 MCG/D5W 250 ML IV ONE (09:19)
[2019-02-04] MEDS ORDERED: VERAPAMIL 5 MG/2 ML (CALAN) VIAL IV ONE (09:19)
--- NOTE | 2019-02-04 09:29 | Cardiac Procedure Note-CS/ASA ---
Pre-Procedure Note Pre-Op Procedure Note H&P Reviewed The H&P was reviewed, patient examined and no changes noted. Date H&P Reviewed: Feb 04, 2019 Time H&P Reviewed: 09:29 Conscious Sedation Pre-Proced Time 09:29 ASA Score 3 For ASA 3 and 4: Consider anesthesia and medical clearance. Also, for patients with a history of failed moderate sedation consider anesthesia. Airway Lungs Heart ASA score ASA 1: a normal healthy patient ASA 2: a patient with a mild systemic disease (mid diabetes, controlled hypertension, obesity x ASA 3: a patient with a severe systemic disease that limits activity (angina, COPD, prior Myocardial infarction) ASA 4: a patient with an incapacitating disease that is a constant threat to life (CHF, renal failure) ASA 5: a moribund patient not expected to survive 24 hrs. (ruptured aneurysm) ASA 6: a declared brain- patient whose organs are being harvested. For emergent operations, add the letter E after the classification Mallampati Classification Grade 3 Sedation Plan Analgesia, Amnesia, Plan communicated to team members, Discussed options with patient/fam, Discussed risks with patient/fam The patient is an appropriate candidate to undergo the planned procedure, sedation, and anesthesia. The patient immediately re-assessed prior to indication. CROW KNIGHT MD Feb 04, 2019 09:29
--- NOTE | 2019-02-04 09:37 | NUR ---
SPOKE WITH THE PT (HE HAD HIS BOTTLE) TO COMPLETE THE MED REC. PT WAS ABLE TO TELL ME HOW/WHEN HE TAKES EACH MED. LOSARTAN 50MG: DIRECTIONS ARE "TAKE 2 TABS DAILY" HOWEVER THE PT SAID HE WAS EXPERIENCING SIDE EFFECTS SO HE IS TAKING 1 TAB TWICE DAILY (SPLITTING UP THE DOSE) AND IS NOT HAVING ANY ISSUES. THE FOLLOWING ARE FILL DATES [facility]ORDING TO [facility]: 11-02-2018 LEVEMIR # 1 BOX /100DS 12-09-2018 METOPROLOL #180/90DS 01-06-2019 JANUMET #60/30DS 01-06-2019 LOSARTAN #60/30DS 01-06-2019 GLIMEPIRIDE #90/90DS 01-06-2019 FUROSEMIDE #30/30DS 01-06-2019 CLOPIDOGREL #30/30DS 01-06-2019 ATORVASTATIN #30/30DS 01-06-2019 AMLODIPINE #90/90DS OTC MEDS: MTV OMEGA 3 ANISHA TYLENOL
--- NOTE | 2019-02-04 10:29 | Discharge Inst-Post CATH ---
Discharge Inst-CATH/EP Problems Reviewed?: Yes Post Cardiac Cath/EP D/C Inst Follow Up/Plan Appointment with Dr. Ortega's office in 2-4 weeks <b>CARDIAC CATH/EP PROCEDURE DISCHARGE INSTRUCTIONS</b> ACTIVITY * Go Home directly and rest. * Limit activity of the leg (or wrist if it was used) for 7 days including aerobics, swimming, jogging, bicycling, etc. * Restrict stair-climbing for 7 days if possible, if not, climb up with your non-cath leg, then bring together on the same step. * Avoid lifting, pushing, pulling or excessive movement of the affected extremity for 7 days. * Customary sexual activity may be resumed after 2 days-use caution not to use a position that strains or causes pain to the affected extremity. * No driving for 24 hours. * NO SMOKING. * Avoid straining for bowel movements for 7 days. * Gentle walking on level ground is allowed. * Returning to work will depend on the type of procedure and the results. Your doctor will discuss this with you. CALL YOUR DOCTOR FOR ANY OF THE FOLLOWING: *If bleeding from the puncture site occurs- Apply gentle pressure to site with clean cloth and call your doctor or EMS. * If a knot or lump forms under the skin, increases in size, or causes pain. * If bruising appears to be worsening or moving further down your leg instead of disappearing. * Temperature above 101 F. CARE OF YOUR GROIN INCISION; * Bruising or purple discoloration of the skin near the puncture site is common. * You may shower only, no bathtub bathing for 5 days. Be careful to avoid slipping as your leg may feel stiff. * If a closure device was used on your femoral artery, please see the attached guide regarding care of the device and your leg. * Leave dressing on FOR 24 hours. CARE OF YOUR WRIST INCISION; * Bruising or purple discoloration of the skin near the puncture site is common. * You may shower. * DO NOT submerge wrist. * Leave dressing on FOR 24 hours. CROW ORTEGA MD Feb 04, 2019 10:29
--- NOTE | 2019-02-04 10:35 | Cardiac Cath Report ---
Cardiac Cath Report Physician (s)/Lacing Cutter (s) Physician CROW KNIGHT MD Pre-Procedure Diagnosis Pre-Procedure Diagnosis: Coronary artery disease Post-Procedure Note Procedure Start Date: Feb 04, 2019 Name of Procedure: left heart catheterization Aortic arch Angiogram Findings/Procedure Note PROCEDURE NOTE: T8 years old gentleman with history coronary artery of coronary artery disease, multiple interventions, has abnormal stress test and scheduled for a cardiac cath After explaining the procedure to the patient, all pros and cons were explained, all questions were answered. The patient signed the consent and then he was placed on the cardiac catheterization laboratory. Groin was prepped SL fashion local anesthesia was used. Sheath placed in the right radial artery, multiple catheters were used. Difficulty accessing the left system, MP 1 was the best option for the left system, angiogram was done Left ventriculogram was not done Aortic arch angiogram was done At the end of the procedure the sheath was removed. vascular band was used FINDINGS: Hemodynamics LV 125/17, end-diastolic pressure of 17 Aorta 152/92 mean of 120 ANATOMY: Left Main is free of obstructive disease Left Anterior Descending has mild disease none obstructive disease Left Circumflex has patent stent proximally, occluded left PDA Right Coronory Artery has patent stent in the midportion with mild disease LV Gram was not done, pressure was measured Aorta evaluation done, normal arch, normal subclavian, carotid and innominate arteries CONCLUSION: 1. Total occlusion of the left PDA off the circumflex artery, patent stent in the proximal circumflex 2. Patent stent in the midright holliday 3. Mild disease in the LAD 4. Normal aortic arch and great vessels of the neck DISCUSSION AND RECOMMENDATION: maximize medical therapy and arrange for possible intervention for the chronic total occlusion Anesthesia Type: Conscious Sedation Estimated blood loss (mL): 25 ml Contrast Amount: 125 ml Total Radiation Dose: 1108 mGy Post-Procedure Diagnosis Post-operative diagnosis: Coronary artery disease Hypertension Hyperlipidemia Diabetes mellitus CROW KNIGHT MD Feb 04, 2019 10:35
--- NOTE | 2019-02-04 10:47 | NUR ---
PT ARRIVED TO [facility] [place] [facility] 10 VIA PT STRETCHER. REPORT RECEIVED AT THIS TIME.
--- NOTE | 2019-02-04 13:24 | NUR ---
DAREN BARRIOS JR demonstrates understanding of discharge instructions and accurately returns instructions upon questioning. Copy of Post-Discharge Instructions given to . DAREN BARRIOS JR is able to manage continuing needs after discharge. Patients belongings returned to PATIENT. Patient discharged from [facility] [place] on 02/04/2019 at 1324. DAREN BARRIOS JR left floor via WHEELCHAIR, accompanied by XOCHITL JONAS.
== END 2019-02-04 13:24 | disposition home or self-care (01) ==
LOC: CATH 06:51 → SDC 10:48 → CATH 13:24
PROVIDERS: ATTEND Internal Medicine Cardiovascular Disease
DX: I25.10 Atherosclerotic heart disease of native coronary artery without angina pectoris (principal); I11.0 Hypertensive heart disease with heart failure; I50.9 Heart failure, unspecified; I08.1 Rheumatic disorders of both mitral and tricuspid valves; J30.9 Allergic rhinitis, unspecified; G47.10 Hypersomnia, unspecified; M19.90 Unspecified osteoarthritis, unspecified site; E78.5 Hyperlipidemia, unspecified; E11.9 Type 2 diabetes mellitus without complications; E66.9 Obesity, unspecified; Z68.39 Body mass index [BMI] 39.0-39.9, adult; Z88.6 Allergy status to analgesic agent; Z91.012 Allergy to eggs; Z88.5 Allergy status to narcotic agent; Z88.0 Allergy status to penicillin; Z88.2 Allergy status to sulfonamides; Z88.8 Allergy status to other drugs, medicaments and biological substances; Z91.018 Allergy to other foods; Z90.89 Acquired absence of other organs; Z79.02 Long term (current) use of antithrombotics/antiplatelets; Z79.899 Other long term (current) drug therapy; Z82.49 Family history of ischemic heart disease and other diseases of the circulatory system; Z83.3 Family history of diabetes mellitus
CPT/HCPCS: 36221; 36415; 71045; 80053; 80061; 85007; 85027; 85610; 85730; 87081; 93458

== ENCOUNTER → 2019-02-19 | Outpatient (CLI) | payer OTHER ==
[~2019-02-19] MED LIST changes: +ACET-168 PO; +ATOR40TA PO; +FURO-124 PO; +INSU100I29 SQ; +LOSA50TA63 PO; +MULT-1063 PO; +MULT-440 PO; +OMEG1CAP58 PO; +SITA1TAB6 PO
--- NOTE | 2019-02-19 12:25 | Diagnostic Imaging Report ---
PROCEDURE: CT chest without contrast. TECHNIQUE: Multiple contiguous axial images were obtained through the chest without the use of intravenous contrast. Auto Exposure Controls were utilized during the CT exam to meet ALARA standards for radiation dose reduction. INDICATION: Right upper chest pain. History of the heart catheter 2 weeks ago. Coronary disease. FINDINGS: Noncontrasted images show the lungs to be well aerated. There are no infiltrates. No pleural effusion or pericardial effusion. There is a noncalcified well-circumscribed nodule in the right lower lobe anteriorly and laterally near the major fissure measuring 7 mm. No other nodules are demonstrated. No evidence of aortic aneurysm. Very dense coronary artery calcification noted. No mediastinal or hilar adenopathy of pathologic size. No blastic or lytic bony lesion. Sagittal and coronal reconstructed images were obtained. IMPRESSION: 1. Noncalcified 7 mm nodule in the right lower lobe. Dictated by: Dictated on workstation # [id number]
== END ==
LOC: RAD 10:31
PROVIDERS: ATTEND Nurse Practitioner Family
DX: I25.10 Atherosclerotic heart disease of native coronary artery without angina pectoris (principal); R91.1 Solitary pulmonary nodule; G47.10 Hypersomnia, unspecified; R04.0 Epistaxis; G47.33 Obstructive sleep apnea (adult) (pediatric); J30.2 Other seasonal allergic rhinitis; Z78.9 Other specified health status; Z95.828 Presence of other vascular implants and grafts
CPT/HCPCS: 71250

== ENCOUNTER → 2019-08-24 | Outpatient (CLI) | payer SELFPAY ==
[2019-08-24 08:38] LABS: CREATININE SERUM 1.6 MG/DL (0.60-1.30)
--- NOTE | 2019-08-24 13:09 | Diagnostic Imaging Report ---
PROCEDURE: CT chest without contrast. TECHNIQUE: Multiple contiguous axial images were obtained through the chest without the use of intravenous contrast. Auto Exposure Controls were utilized during the CT exam to meet ALARA standards for radiation dose reduction. INDICATION: Difficulty breathing. Follow-up lung nodule. COMPARISON: CT chest on 02/19/2019. FINDINGS: The heart size is within normal limits. No pericardial effusion is present. There is no mediastinal, hilar, or axillary lymphadenopathy. Stable noncalcified nodule in the peripheral aspect of the right lower lobe measuring 0.7 cm. No new suspicious pulmonary nodules. No focal consolidation or mass. A small amount of dependent atelectasis is seen in the bilateral lung bases. No central endobronchial obstructing lesions are identified. There is no pleural effusion or pneumothorax. The osseous structures demonstrate no acute abnormalities. Limited views of the upper abdominal structures demonstrate no acute abnormalities. Both adrenal glands are unremarkable. IMPRESSION: 1. Stable nodule in the right lower lobe measuring 0.7 cm. Given the stability, follow-up in one year is recommended with chest CT. No new suspicious pulmonary nodules. Dictated by: Dictated on workstation # [id number]
== END ==
LOC: RAD 07:57
PROVIDERS: ATTEND Nurse Practitioner Family
DX: R91.1 Solitary pulmonary nodule (principal); J30.2 Other seasonal allergic rhinitis; G47.33 Obstructive sleep apnea (adult) (pediatric); G47.10 Hypersomnia, unspecified; Z78.9 Other specified health status
CPT/HCPCS: 36415; 71250; 82565; 84520

== ENCOUNTER 2019-11-10 18:14 | Inpatient (IN) | payer SELFPAY ==
[~2019-11-10] VITALS: Ht 175 cm; Wt 116.1 kg
[2019-11-10] MEDS ORDERED: ONDANSETRON 4 MG/2 ML (SDV) Z0FRAN IVP ONE ×3 (18:45→20:15)
[2019-11-10] MEDS ORDERED: NS IV 1000 ML 1,000 ML IV SCH ×2 (18:49→20:04)
[2019-11-10] MEDS ORDERED: SCOPOLAMINE 1.5 MG (TRANSDERM-SCOP) PATCH TD ONE ×2 (19:00→21:30)
--- NOTE | 2019-11-10 19:11 | ED General ---
General Chief Complaint: Dizziness/Syncope Stated Complaint: FEVER/DIZZY/NAUSEA Nursing Triage Note: Pt c/o nausea and vomiting since yesterday. Patient also reports dizziness and headache starting yesterday and worse today. Pt states he thinks he had a fever this afternoon and had chills. Nursing Sepsis Screen: Possible Severe Sepsis Risk Source of Information: Patient History of Present Illness Date Seen by Provider: Nov 10, 2019 Time Seen by Provider: 18:37 Initial Comments PT ARRIVES VIA POV FROM HOME MULTIPLE COMPLAINTS BEGAN FEELING SICK YESTERDAY HAS HAD TEMP UP TO 101 --TOOK TYLENOL AT 10 AM TODAY C/O CHILLS C/O BODY ACHES C/O HEADACHE C/O SORE THROAT C/O LOSS OF TASTE C/O MILD NON-PRODUCTIVE COUGH C/O MILD SHORTNESS OF BREATH C/O NAUSEA AND VOMITING--VOMITED APPROXIMATELY 6 TIMES C/O DIZZINESS WITH FEVER AND NAUSEA NO DIARRHEA C/O UPPER ABDOMINAL PAIN C/O FATIGUE PT IS INSULIN DEPENDENT DIABETIC, BUT HAS NOT CHECKED BLOOD GLUCOSE TODAY PT HAS HISTORY OF CORONARY ARTERY DISEASE WITH STENTS X 2 PT ALSO HAS HISTORY OF ASTHMA/COPD. BUT DOES NOT HAVE HOME O2 AND IS CURRENTLY NOT USING ANY INHALERS OR NEBULIZERS--ONLY CPAP AT HS NO KNOWN EXPOSURE TO COVID-19 PCP: DR. CORONADO CRIME ANALYST: DR. KNIGHT Allergies and Home Medications Allergies Coded Allergies: aspirin (Verified Allergy, Severe, 12/10/17) Insulins (Unverified Allergy, Unknown, 06/06/15) Penicillins (Unverified Allergy, Unknown, 07/19/13) Sulfa (Sulfonamide Antibiotics) (Unverified Allergy, Unknown, 07/19/13) lactose (Unverified Allergy, Unknown, 12/10/17) CAUSES GAS lidocaine (Verified Allergy, Unknown, 01/06/16) peanut (Unverified Allergy, Unknown, air closes off, 07/19/13) strawberry (Unverified Allergy, Unknown, airway closes off, 07/19/13) codeine (Unverified Adverse Reaction, Mild, NAUSEA, 02/03/14) Uncoded Allergies: ENVIRONMENTAL (Allergy, Unknown, 07/19/13) raw egg whites (Adverse Reaction, Unknown, upset stomach, 12/09/17) Home Medications Acetaminophen 500 Mg Tablet, 1,500 MG PO HS, (Reported) TAKES 3 (500MG) TABS Amlodipine Besylate 10 Mg Tablet, 10 MG PO DAILY, (Reported) Atorvastatin Calcium 40 Mg Tablet, 40 MG PO DAILY, (Reported) Clopidogrel Bisulfate 75 Mg Tablet, 75 MG PO DAILY, (Reported) Fexofenadine HCl 180 Mg Tablet, 180 MG PO DAILY PRN for CONGESTION, (Reported) Furosemide 40 Mg Tablet, 40 MG PO HS, (Reported) Glimepiride 1 Mg Tab, 1 MG PO DAILY, (Reported) Insulin Detemir 100 Unit/1 Ml Insuln.pen, 15 UNIT SQ HS, (Reported) Losartan Potassium 50 Mg Tablet, 50 MG PO BID, (Reported) Metoprolol Tartrate 50 Mg Tablet, 50 MG PO BID, (Reported) Multivitamin W/Iron, Minerals 1 Each Tablet, 1 EACH PO DAILY, (Reported) [place]-3 Fatty Acids/Fish Oil 1 Each Capsule, 1 EACH PO DAILY, (Reported) Sitagliptin Phos/Metformin HCl 1 Each Tablet, 1 EACH PO BID, (Reported) Patient Home Medication List Home Medication List Reviewed: Yes Review of Systems Review of Systems Constitutional: see HPI, chills, dizziness, fever, malaise, weakness EENTM: see HPI, throat pain, other (LOSS OF TASTE) Respiratory: see HPI, cough, short of breath Cardiovascular: see HPI; No chest pain; edema (CHRONIC/STABLE); No palpitations, No syncope, No vascular heart diseas Gastrointestinal: see HPI, abdominal pain; No constipation, No diarrhea; loss of appetite, nausea, vomiting Genitourinary: no symptoms reported Musculoskeletal: see HPI (BODY ACHES) Skin: no symptoms reported Psychiatric/Neurological: See HPI, Headache Hematologic/Lymphatic: No Symptoms Reported Immunological/Allergic: no symptoms reported Past Kvcsxnm-Dlvknd-Ikxgja Hx Past Med/Social Hx: Reviewed and Corrections made Patient Social History Alcohol Use: Occasionally Uses Alcohol Beverage of Choice: Wine Recreational Drug Use: No Smoking Status: Never a Smoker 2nd Hand Smoke Exposure: Yes (PARENTS SMOKED) Recent Foreign Travel: No Contact w/Someone Who Travel: No Recent Infectious Disease Expo: No Recent Hopitalizations: No Immunizations Up To Date Tetanus Booster (TDap): Unknown Date of Pneumonia Vaccine: Aug 18, 2013 Seasonal Allergies Seasonal Allergies: Yes Past Medical History Surgeries: Yes (CARPAL TUNNEL RELASE SX, LEFT HAND SURGERY, L FOOT, EGD/COLONOSCOPY) Cardiac, Coronary Stent, Gallbladder, Orthopedic, Tonsillectomy Respiratory: Yes (RLL PUL. NODULE--FOLLOWED EVERY 6 MONTHS;INTUBATED 2018/PULM EDEMA/ARF ) Asthma, Sleep Apnea Currently Using CPAP: Yes Cardiac: Yes (CAD--STENTS X 2; MR/TR) Coronary Artery Disease, High Cholesterol, Hypertension, Irregular Heartbeat, Valvular Heart Disease Neurological: Yes Neuropathy Reproductive Disorders: No Sexually Transmitted Disease: No Genitourinary: No Gastrointestinal: Yes Gastroesophageal Reflux, Polyps, Hiatal Hernia, Ulcer Musculoskeletal: Yes (BILAT CARPAL TUNNEL SURG;L HAND SURG; L FOOT SURG) Arthritis Endocrine: Yes Diabetes, Insulin dep HEENT: No Loss of Vision: Denies Hearing Impairment: Denies Cancer: No Psychosocial: Yes Anxiety Integumentary: Yes Psoriasis Blood Disorders: No Adverse Reaction/Blood Tranf: No Family Medical History Congestive heart failure 19 MOTHER Family history: Arthritis 19 FATHER 19 MOTHER Family history: Cardiovascular disease 19 FATHER 19 MOTHER Family history: Diabetes mellitus 19 FATHER Family history: Glaucoma 19 MOTHER Family history: Hypertension 19 FATHER 19 MOTHER Family history: Osteoporosis 19 MOTHER Hearing loss 19 MOTHER Heart disease 19 FATHER 19 MOTHER Myocardial infarction 19 FATHER 19 MOTHER (DBL BYPASS) Stroke 19 MOTHER (MICRO STROKES) No Family History of: Abdominal aortic aneurysm Sony's disease Alcoholism Aphasia Cancer Cancer of colon Cataract Chest pain Congenital heart disease Cystic fibrosis Dementia Dysphagia Family history: Allergy Family history: Alzheimer's disease Family history: Asthma Family history: Breast disease Family history: Coronary thrombosis Family history: Gastrointestinal disease Family history: Thyroid disorder Headache Hereditary disease History of - anemia History of - disorder History of - respiratory disease History of drug abuse Human immunodeficiency virus (HIV) seropositivity Hypercholesterolemia Infertile Kidney disease Malignant neoplasm of lung Parkinson's disease Prostate cancer Psychotic disorder Seizure disorder Tuberculosis Visual impairment Heart Disease, Diabetes, Hypertension PAST SURGICAL HISTORY: -CARDIAC CATHS--STENTS X 2 IN 2018. LAST CATH 02/04/19--NO INTERVENTION. HAD PATENT STENT TO LEFT CIRCUMFLEX, WITH COMPLETE OCCLUSION OF LEFT PDA; PATENT STENT TO RCA; MILD DISEASE IN OTHER VESSELS -APPENDECTOMY -EGD'S AND COLONOSCOPIES WITH POLYPECTOMY -BILATERAL CARPAL TUNNEL SURGERY -LEFT HAND SURGERY -LEFT FOOT SURGERY Physical Exam Vital Signs Vital Signs - First Documented 11/10/19 18:51 Temp 36.7 Pulse 92 Resp 18 B/P (MAP) 169/91 (117) Pulse Ox 97 O2 Delivery Room Air Capillary Refill : Less Than 3 Seconds Height, Weight, BMI Height: 5'9.00" Weight: 247lbs. 7.0oz. [id number]; 36.00 BMI Method:Stated General Appearance: No Apparent Distress, WD/WN, Obese, Other (DOES NOT APPEAR ILL OR TO BE IN ANY DISCOMFORT OR DISTRESS; TALKS NON-STOP AT GREAT LENGTH) HEENT: PERRL/EOMI, TMs Normal, Normal ENT Inspection, Pharynx Normal Neck: Full Range of Motion, Normal Inspection, Non Tender, Supple Respiratory: Normal Breath Sounds, No Accessory Muscle Use, No Respiratory Distress Cardiovascular: Regular Rate, Rhythm, No JVD, No Murmur, Normal Peripheral Pulses Gastrointestinal: No Organomegaly, No Pulsatile Mass, Soft, Tenderness (MILD EPIGASTRIC TENDERNESS; MODERATE LUQ TENDERNESS) Back: Normal Inspection, No CVA Tenderness Extremity: Normal Capillary Refill, Normal Range of Motion, Non Tender, No Calf Tenderness, Pedal Edema (1+ EDEMA BILATERAL LOWER LEGS) Neurologic/Psychiatric: Alert, Oriented x3, No Motor/Sensory Deficits, Normal Mood/Affect, electrocardiograph repairer II-XII Norm as Tested Skin: Normal Color, Warm/Dry; No Rash Focused Exam Lactate Level 11/10/19 19:00: Lactic Acid Level 2.29*H Lactic Acid Level Procedures/Interventions Date of ETT Placement: Dec 06, 2017 Time of ETT Placement: 1349 Progress/Results/Core Measures Suspected Sepsis Recent Fever Within 48 Hours: Yes Infection Criteria Present: Suspected New Infection New/Unexplained Altered Menta: No Sepsis Screen: Possible Severe Sepsis Risk SIRS Temperature: Pulse: 92 Respiratory Rate: 18 Laboratory Tests 11/10/19 19:00: White Blood Count 9.2 Blood Pressure 169 /91 Mean: 117 11/10/19 19:00: Lactic Acid Level 2.29*H Laboratory Tests 11/10/19 19:00: Creatinine 1.39H, Platelet Count 330, Total Bilirubin 0.6 Results/Orders Lab Results Laboratory Tests Test 11/10/19 19:00 11/10/19 19:10 11/10/19 20:20 11/10/19 21:30 Range/Units White Blood Count 9.2 4.3-11.0 10^3/uL Red Blood Count 5.17 4.30-5.52 10^6/uL Hemoglobin 15.0 13.3-17.7 g/dL Hematocrit 44 40-54 % Mean Corpuscular Volume 86 80-99 fL Mean Corpuscular Hemoglobin 29 25-34 pg Mean Corpuscular Hemoglobin Concent 34 32-36 g/dL Red Cell Distribution Width 13.1 10.0-14.5 % Platelet Count 330 130-400 10^3/uL Mean Platelet Volume 9.9 9.0-12.2 fL Immature Granulocyte % (Auto) 0 % Neutrophils (%) (Auto) 78 H 42-75 % Lymphocytes (%) (Auto) 13 12-44 % Monocytes (%) (Auto) 5 0-12 % Eosinophils (%) (Auto) 3 0-10 % Basophils (%) (Auto) 1 0-10 % Neutrophils # (Auto) 7.1 1.8-7.8 10^3/uL Lymphocytes # (Auto) 1.2 1.0-4.0 10^3/uL Monocytes # (Auto) 0.5 0.0-1.0 10^3/uL Eosinophils # (Auto) 0.3 0.0-0.3 10^3/uL Basophils # (Auto) 0.1 0.0-0.1 10^3/uL Immature Granulocyte # (Auto) 0.0 0.0-0.1 10^3/uL Erythrocyte Sedimentation Rate 28 0-30 MM/HR D-Dimer 0.41 0.00-0.49 UG/ML Sodium Level 137 135-145 MMOL/L Potassium Level 3.3 L 3.6-5.0 MMOL/L Chloride Level 97 L 98-107 MMOL/L Carbon Dioxide Level 22 21-32 MMOL/L Anion Gap 18 H 5-14 MMOL/L Blood Urea Nitrogen 12 7-18 MG/DL Creatinine 1.39 H 0.60-1.30 MG/DL Estimat Glomerular Filtration Rate 52 BUN/Creatinine Ratio 9 Glucose Level 504 *H 70-105 MG/DL Lactic Acid Level 2.29 *H 0.50-2.00 MMOL/L Calcium Level 9.7 8.5-10.1 MG/DL Corrected Calcium 9.4 8.5-10.1 MG/DL Magnesium Level 2.0 1.6-2.4 MG/DL Total Bilirubin 0.6 0.1-1.0 MG/DL Aspartate Amino Transf (AST/SGOT) 19 5-34 U/L Alanine Aminotransferase (ALT/SGPT) 24 0-55 U/L Alkaline Phosphatase 93 40-136 U/L Lactate Dehydrogenase 243 H 125-220 U/L Myoglobin 40.4 10.0-92.0 NG/ML Troponin I < 0.028 <0.028 NG/ML C-Reactive Protein High Sensitivity 1.51 H 0.00-0.50 MG/DL B-Type Natriuretic Peptide 21.4 <100.0 PG/ML Total Protein 8.6 H 6.4-8.2 GM/DL Albumin 4.4 3.2-4.5 GM/DL Amylase Level 51 25-125 U/L Lipase 20 8-78 U/L Beta-Hydroxybutyrate (Chem panel) 0.81 H 0.00-0.27 MMOL/L Procalcitonin 0.07 <0.10 NG/ML Coronavirus 2019 (AMY) Negative Negative Urine Color YELLOW Urine Clarity CLEAR Urine pH 6.0 5-9 Urine Specific [place] 1.010 L 1.016-1.022 Urine Protein 2+ H NEGATIVE Urine Glucose (UA) 3+ H NEGATIVE Urine Ketones TRACE H NEGATIVE Urine Nitrite NEGATIVE NEGATIVE Urine Bilirubin NEGATIVE NEGATIVE Urine Urobilinogen 0.2 < = 1.0 MG/DL Urine Leukocyte Esterase NEGATIVE NEGATIVE Urine RBC (Auto) 1+ H NEGATIVE Urine RBC 2-5 H /HPF Urine WBC RARE /HPF Urine Squamous Epithelial Cells 0-2 /HPF Urine Crystals NONE /LPF Urine Bacteria NEGATIVE /HPF Urine Casts NONE /LPF Urine Mucus NEGATIVE /LPF Urine Culture Indicated NO Blood Gas Puncture Site NOT INDICATED Blood Gas Patient Temperature NOT INDICATED Arterial Blood pH 7.37 7.37-7.43 Arterial Blood Partial Pressure CO2 45 35-45 MMHG Arterial Blood Partial Pressure O2 69 L 79-93 MMHG Arterial Blood HCO3 25 23-27 MMOL/L Arterial Blood Total CO2 26.4 21.0-31.0 MMOL/L Arterial Blood Oxygen Saturation 91 L 94-100 % Arterial Blood Base Excess 0.3 -2.5-2.5 MMOL/L Kush Test NA Blood Gas Ventilator Setting NO Blood Gas Inspired Oxygen NOT INDICATED Test 11/10/19 22:32 Range/Units Glucometer 298 H 70-110 MG/DL Micro Results Microbiology 11/10/19 Influenza Types A,B Antigen ([place]) - Final, Complete My Orders Orders - ERMIAS,NIKOLE K DO Ondansetron Injection (Zofran Injectio (11/10/19 18:45) Ed Iv/Invasive Line Start (11/10/19 18:38) Ekg Tracing (11/10/19 18:38) O2 (11/10/19 18:38) Monitor-Rhythm Ecg Trace Only (11/10/19 18:38) BNP (11/10/19 18:38) Lactic Acid Analyzer (11/10/19 18:38) Procalcitonin (Pct) (11/10/19 18:38) Ua Culture If Indicated (11/10/19 18:38) Blood Culture (11/10/19 18:38) Influenza A And B Antigens (11/10/19 18:38) Myoglobin Serum (11/10/19 18:38) Troponin I (11/10/19 18:38) Cbc With Automated Diff (11/10/19 18:38) Comprehensive Metabolic Panel (11/10/19 18:38) Fibrin Degradation Products (11/10/19 18:38) Hs C Reactive Protein (11/10/19 18:38) Erythrocyte Sedimentation Rate (11/10/19 18:38) LDH (11/10/19 18:38) Ekg Tracing (11/10/19 18:38) Chest 1 View, Ap/Pa Only (11/10/19 18:38) Coronavirus Sars-Cov-2 So 2018 (11/10/19 18:38) Covid 19 Inhouse Test (11/10/19 18:38) Ed Iv/Invasive Line Start (11/10/19 18:49) Ns Iv 1000 Ml (Sodium Chloride 0.9%) (11/10/19 18:49) Ondansetron Injection (Zofran Injectio (11/10/19 19:00) Scopolamine Patch (Transderm-Scop Patch) (11/10/19 19:00) Accucheck Stat ONCE (11/10/19 18:49) Amylase (11/10/19 19:58) Lipase (11/10/19 19:58) Magnesium (11/10/19 19:58) Insulin (Regular) Human (Novolin R (Per (11/10/19 20:15) Ed Iv/Invasive Line Start (11/10/19 20:04) Ns Iv 1000 Ml (Sodium Chloride 0.9%) (11/10/19 20:04) Arterial Blood Gas (11/10/19 20:04) Ondansetron Injection (Zofran Injectio (11/10/19 20:15) Pantoprazole Injection (Protonix Injecti (11/10/19 20:15) Ct Ceci Chest/Noang Abd-Pelv W (11/10/19 20:08) Iohexol Injection (Omnipaque 350 Mg/Ml 1 (11/10/19 20:15) Received Contrast (Hold Metformin- Contr (11/10/19 20:15) Ns (Ivpb) (Sodium Chloride 0.9% Ivpb Bag (11/10/19 20:15) Beta Hydroxybutyrate (11/10/19 21:11) Hemoglobin A1c (11/10/19 21:11) Scopolamine Patch (Transderm-Scop Patch) (11/10/19 21:30) Promethazine Injection (Phenergan Injec (11/10/19 21:30) Diphenhydramine Injection (Benadryl Inje (11/10/19 21:30) Enoxaparin Injection (Lovenox Injection) (11/10/19 21:30) Accucheck Stat ONCE (11/10/19 21:24) Arterial Blood Gas (11/10/19 21:30) Medications Given in ED Current Medications Medications Dose Ordered Sig/Brissa Route Start Time Stop Time Status Last Admin Dose Admin Diphenhydramine HCl 25 mg ONCE ONCE IVP 11/10/19 21:30 11/10/19 21:31 DC 11/10/19 22:24 25 MG Enoxaparin Sodium 40 mg ONCE ONCE SC 11/10/19 21:30 11/10/19 21:31 DC 11/10/19 22:26 40 MG Insulin Human Regular 20 unit ONCE ONCE IV 11/10/19 20:15 11/10/19 20:16 DC 11/10/19 20:17 20 UNIT Iohexol 100 ml ONCE ONCE IV 11/10/19 20:15 11/10/19 20:16 DC 11/10/19 20:51 80 ML Ondansetron HCl 8 mg ONCE ONCE IVP 11/10/19 19:00 11/10/19 19:01 DC 11/10/19 19:00 8 MG Ondansetron HCl 8 mg ONCE ONCE IVP 11/10/19 20:15 11/10/19 20:16 DC 11/10/19 20:19 8 MG Pantoprazole 40 mg ONCE ONCE IV 11/10/19 20:15 11/10/19 20:16 DC 11/10/19 20:16 40 MG Promethazine HCl 25 mg ONCE ONCE IVP 11/10/19 21:30 11/10/19 21:31 DC 11/10/19 22:26 25 MG Scopolamine 1.5 mg ONCE ONCE TD 11/10/19 19:00 11/10/19 19:01 DC 11/10/19 19:01 1.5 MG Sodium Chloride 100 ml ONCE ONCE IV 11/10/19 20:15 11/10/19 20:16 DC 11/10/19 20:51 100 ML Vital Signs/I&O 11/10/19 11/10/19 18:51 22:46 Temp 36.7 36.7 Pulse 92 86 Resp 18 17 B/P (MAP) 169/91 (117) 125/82 (117) Pulse Ox 97 96 O2 Delivery Room Air Room Air Capillary Refill : Less Than 3 Seconds Blood Pressure Mean: 117 Progress Note : Progress Note GIVEN ZOFRAN, PHENERGAN + BENADRYL, SCOPOLAMINE AND PROTONIX--GI SYMPTOMS IMPROVED GIVEN IV FLUIDS AND IV INSULIN--GLUCOSE DOWN TO 298 PRIOR TO ADMIT. VITALS STABLE, NO DETERIORATION IN PT'S CONDITION DURING ER STAY. PT STATES HE IS AWARE OF PULMONARY NODULE AND HE AND HIS DR ARE FOLLOWING IT EVERY 6 MONTHS. ECG Initial ECG Impression Date: Nov 10, 2019 Initial ECG Impression Time: 19:00 (87) Initial ECG Rate: 87 Initial ECG Rhythm: Normal Sinus Diagnostic Imaging Comments CXR--PER RADIOLOGIST REPORT AT 1931 Correlation is made with prior chest 02/04/2019. The heart size is normal. The pulmonary vascularity is unremarkable. The lungs are clear. No infiltrate, effusion or pneumothorax is detected. Impression: No acute cardiopulmonary process is detected. CT CHEST ANGIOGRAM/ ABDOMEN-PELVIS--PER RADIOLOGIST REPORT AT 2112 Impression: 1. No evidence of pulmonary embolus or other acute cardiopulmonary abnormality. 2. 6 mm pleural-based right lower lobe pulmonary nodule. Reviewed: Reviewed by [facility] Departure Communication (Admissions) 2119--SPOKE WITH DR. DIANA, HOSPITALIST FOR [facility]. ACCEPTS PT FOR ADMIT. ORDERS NOTED--WANTS PT TO BE IN ICU AND STARTED ON INSULIN DRIP Impression Primary Impression: Person under investigation for COVID-19 Additional Impressions: Diabetes mellitus, insulin dependent (IDDM), uncontrolled Lactic acidosis Nausea & vomiting Mild dehydration Hypokalemia Disposition: ADMITTED INPATIENT Condition: Improved Admissions Decision to Admit Reason: Admit from ER (General) Decision to Admit/Date: Nov 10, 2019 Time/Decision to Admit Time: 21:20 Departure-Patient Inst. Referrals: KATE CORONADO MD (PCP/Family) Primary Care Physician NIKOLE MONSON DO Nov 10, 2019 19:11
--- NOTE | 2019-11-10 19:22 | Diagnostic Imaging Report ---
Indication: Cough and shortness of air. Time of exam: 7:13 PM Correlation is made with prior chest 02/04/2019. The heart size is normal. The pulmonary vascularity is unremarkable. The lungs are clear. No infiltrate, effusion or pneumothorax is detected. Impression: No acute cardiopulmonary process is detected. Dictated by: Dictated on workstation # [id number]
[2019-11-10 19:33] LABS: BASOPHILS # (AUTO) 0.1 10^3/uL (0.0-0.1); BASOPHILS % (AUTO) 1 % (0-10); EOSINOPHILS # (AUTO) 0.3 10^3/uL (0.0-0.3); EOSINOPHILS % (AUTO) 3 % (0-10); HEMATOCRIT 44 % (40-54); LYMPHOCYTES # (AUTO) 1.2 10^3/uL (1.0-4.0); LYMPHOCYTES % (AUTO) 13 % (12-44); MEAN CORPUSCULAR HEMOGLOBIN 29 pg (25-34); MEAN CORPUSCULAR HGB CONC 34 g/dL (32-36); MEAN CORPUSCULAR VOLUME 86 fL (80-99); MEAN PLATELET VOLUME 9.9 fL (9.0-12.2); MONOCYTES # (AUTO) 0.5 10^3/uL (0.0-1.0); MONOCYTES % (AUTO) 5 % (0-12); NEUTROPHILS # (AUTO) 7.1 10^3/uL (1.8-7.8); NEUTROPHILS % (AUTO) 78 % (42-75); PLATELET COUNT 330 10^3/uL (130-400); WHITE BLOOD COUNT 9.2 10^3/uL (4.3-11.0)
[2019-11-10 19:52] LABS: ERYTHROCYTE SEDIMENTATION RATE 28 MM/HR (0-30)
[2019-11-10 19:58] LABS: ALANINE AMINOTRANSFERASE 24 U/L (0-55); ALBUMIN 4.4 GM/DL (3.2-4.5); ALKALINE PHOSPHATASE 93 U/L (40-136); BILIRUBIN,TOTAL 0.6 MG/DL (0.1-1.0); BUN/CREATININE RATIO 9; CALCIUM 9.7 MG/DL (8.5-10.1); CARBON DIOXIDE 22 MMOL/L (21-32); CHLORIDE 97 MMOL/L (98-107); CREATININE SERUM 1.39 MG/DL (0.60-1.30); GFR ESTIMATED 52; POTASSIUM 3.3 MMOL/L (3.6-5.0); SODIUM 137 MMOL/L (135-145); TOTAL PROTEIN 8.6 GM/DL (6.4-8.2)
[2019-11-10 20:01] LABS: GLUCOSE 504 MG/DL (70-105)
[2019-11-10] MEDS ORDERED: NS 100 ML (IVPB) BAG IV ONE (20:15)
[2019-11-10] MEDS ORDERED: IOHEXOL 350 MG/ML 100 ML (OMNIPAQUE 350) VIAL IV ONE (20:15)
[2019-11-10] MEDS ORDERED: HOLD METFORMIN - RECEIVED CONTRAST 20 ML VIAL IV SCH (20:15)
[2019-11-10] MEDS ORDERED: inSUlin (REGULAR) HUMAN 1 UNIT/0.01 ML (CHARGE PER UNIT) IV ONE (20:15)
[2019-11-10] MEDS ORDERED: PANTOPRAZOLE 40 MG (PROTONIX) VIAL IV ONE (20:15)
[2019-11-10 20:36] LABS: BILIRUBIN,URINE NEGATIVE (NEGATIVE); CLARITY,URINE CLEAR; COLOR,URINE YELLOW; GLUCOSE, URINE (UA) 3+ (NEGATIVE); KETONES,URINE TRACE (NEGATIVE); LEUKOCYTE ESTERASE ,URINE NEGATIVE (NEGATIVE); NITRITE,URINE NEGATIVE (NEGATIVE); PROTEIN,URINE 2+ (NEGATIVE)
[2019-11-10 20:40] LABS: BACTERIA,URINE NEGATIVE /HPF; SQUAMOUS EPITHELIAL CELL,UR 0-2 /HPF; WBC,URINE RARE /HPF
--- NOTE | 2019-11-10 21:08 | Diagnostic Imaging Report ---
Exam: CT angiography of the chest, with intravenous contrast. Date: November 10, 2019. Indication: 59-year-old male, nausea and vomiting. Dizziness and headache. Comparison: CT chest August 24, 2019. Technique: Axial CT angiography images at the level of the chest were obtained. Coronal and sagittal reformats were obtained and provided as well as 3-dimensional reformats. Findings: There is respiratory motion artifact. There is a pleurally-based 6 mm right lower lobe pulmonary nodule on axial image 61. There is no additional focal airspace consolidation. There is no pneumothorax. There is no pleural effusion. There are limitations for assessment of distal segmental and subsegmental pulmonary emboli given the degree of respiratory motion artifact. There is no identified more central pulmonary embolus. The main pulmonary artery is normal in caliber. The heart is not enlarged. There is no pericardial effusion. There are atherosclerotic calcifications. There is no evidence of acute aortic injury or aortic dissection. There is no identified abnormally enlarged mediastinal, hilar, or axillary lymph node which meets CT size criteria for adenopathy. The patient is status post cholecystectomy. Additional evaluation of the imaged portions of the upper abdomen is unremarkable. There are findings of diffuse idiopathic skeletal hyperostosis. There is no identified acute bony abnormality. Impression: 1. No evidence of pulmonary embolus or other acute cardiopulmonary abnormality. 2. 6 mm pleural-based right lower lobe pulmonary nodule. Dictated by: Dictated on workstation # [id number]
[2019-11-10] MEDS ORDERED: PROMETHAZINE INJ 25 MG/ML (PHENERGAN) AMP IVP ONE (21:30)
[2019-11-10] MEDS ORDERED: diphenhydrAMINE 50 MG/ML INJ (BENADRYL) IVP ONE (21:30)
[2019-11-10] MEDS ORDERED: ENOXAPARIN 40 MG/0.4 ML (LOVENOX) SYR SC ONE (21:30)
[2019-11-10 21:38] LABS: ABG BASE EXCESS 0.3 MMOL/L (-2.5-2.5); ABG OXYGEN SATURATION 91 % (94-100); ABG PCO2 45 MMHG (35-45); ABG PH 7.37 (7.37-7.43); ABG PO2 69 MMHG (79-93); ABG TCO2 26.4 MMOL/L (21.0-31.0); INSPIRED O2 NOT INDICATED; PATIENT TEMP NOT INDICATED; VENTILATOR NO
[2019-11-10] MEDS ORDERED: diphenhydrAMINE 50 MG/ML INJ (BENADRYL) ONE (22:15)
[2019-11-10] MEDS ORDERED: ENOXAPARIN 40 MG/0.4 ML (LOVENOX) SYR ONE (22:16)
[2019-11-10] MEDS ORDERED: PROMETHAZINE INJ 25 MG/ML (PHENERGAN) AMP ONE (22:16)
[2019-11-11] VITALS (15 sets, daily range): BP systolic 118–169; BP diastolic 59–91
[2019-11-11] MEDS ORDERED: NS IV 1000 ML 1,000 ML IV SCH (00:40)
[2019-11-11] MEDS ORDERED: fentaNYL INJECTION 100 MCG/2 ML AMP IVP PRN (00:45)
[2019-11-11] MEDS ORDERED: D5 1/2 NS 1000 ML IV SOLUTION 1,000 ML IV SCH (00:45)
[2019-11-11] MEDS ORDERED: PROMETHAZINE INJ 25 MG/ML (PHENERGAN) AMP IVP PRN (00:45)
[2019-11-11] MEDS ORDERED: diphenhydrAMINE 50 MG/ML INJ (BENADRYL) IVP PRN (00:45)
[2019-11-11] MEDS: 1/2 NS IV SOLUTION 1,000 ML IV SCH ×2 (01:22→05:37)
[2019-11-11] MEDS: POTASSIUM CL 10MEQ/50ML IVPB 50 ML IV SCH ×14 (01:24→17:16)
[2019-11-11 01:45] LABS: BASOPHILS # (AUTO) 0.1 10^3/uL (0.0-0.1); BASOPHILS % (AUTO) 1 % (0-10); EOSINOPHILS # (AUTO) 0.3 10^3/uL (0.0-0.3); EOSINOPHILS % (AUTO) 4 % (0-10); HEMATOCRIT 36 % (40-54); HEMOGLOBIN 12.2 g/dL (13.3-17.7); LYMPHOCYTES # (AUTO) 2.2 10^3/uL (1.0-4.0); LYMPHOCYTES % (AUTO) 25 % (12-44); MEAN CORPUSCULAR HEMOGLOBIN 30 pg (25-34); MEAN CORPUSCULAR HGB CONC 34 g/dL (32-36); MEAN CORPUSCULAR VOLUME 86 fL (80-99); MEAN PLATELET VOLUME 9.6 fL (9.0-12.2); MONOCYTES # (AUTO) 0.7 10^3/uL (0.0-1.0); MONOCYTES % (AUTO) 8 % (0-12); NEUTROPHILS # (AUTO) 5.6 10^3/uL (1.8-7.8); NEUTROPHILS % (AUTO) 63 % (42-75); PLATELET COUNT 285 10^3/uL (130-400); WHITE BLOOD COUNT 8.9 10^3/uL (4.3-11.0)
[2019-11-11 01:46] LABS: ALBUMIN 3.6 GM/DL (3.2-4.5); CHLORIDE 103 MMOL/L (98-107); SODIUM 137 MMOL/L (135-145)
[2019-11-11 01:47] LABS: CALCIUM 8.4 MG/DL (8.5-10.1)
[2019-11-11 01:48] LABS: GLUCOSE 335 MG/DL (70-105); TOTAL PROTEIN 6.8 GM/DL (6.4-8.2)
[2019-11-11 01:49] LABS: CARBON DIOXIDE 22 MMOL/L (21-32)
[2019-11-11 01:50] LABS: BILIRUBIN,TOTAL 0.5 MG/DL (0.1-1.0)
[2019-11-11 01:51] LABS: PHOSPHORUS 2.5 MG/DL (2.3-4.7)
[2019-11-11 01:52] LABS: ALKALINE PHOSPHATASE 73 U/L (40-136); CREATININE SERUM 1.11 MG/DL (0.60-1.30); GFR ESTIMATED > 60
[2019-11-11 01:53] LABS: BUN/CREATININE RATIO 11
[2019-11-11 01:55] LABS: ALANINE AMINOTRANSFERASE 19 U/L (0-55); MAGNESIUM 1.8 MG/DL (1.6-2.4)
--- NOTE | 2019-11-11 03:10 | NUR ---
ALBUTEROL INHALER PRN Q2H PRN X2 PUFFS. INITIATE 02 TO KEEP SATS GREATER THAN 90%. RT TO REASSESS OR REEVALUATE IN 72 HOURS OR NEEDED. Addendum: 11/11/19 at 0311 by CALIN WARNER RT Amended: Links added.
[2019-11-11] MEDS ORDERED: RT-ALBUTEROL INHALER HFA (VENTOLIN HFA) 18 GM IH PRN (03:15)
[2019-11-11 04:28] LABS: BUN/CREATININE RATIO 11; CALCIUM 8.4 MG/DL (8.5-10.1); CARBON DIOXIDE 23 MMOL/L (21-32); CHLORIDE 105 MMOL/L (98-107); CREATININE SERUM 1.03 MG/DL (0.60-1.30); GFR ESTIMATED > 60; GLUCOSE 232 MG/DL (70-105); POTASSIUM 2.9 MMOL/L (3.6-5.0); SODIUM 140 MMOL/L (135-145)
--- NOTE | 2019-11-11 06:06 | Pulmonary Consultation ---
History of Present Illness History of Present Illness Date of Admission Allergies and Home Medications Allergies Coded Allergies: aspirin (Verified Allergy, Severe, 12/10/17) Insulins (Unverified Allergy, Unknown, 06/06/15) Penicillins (Unverified Allergy, Unknown, 07/19/13) Sulfa (Sulfonamide Antibiotics) (Unverified Allergy, Unknown, 07/19/13) lactose (Unverified Allergy, Unknown, 12/10/17) CAUSES GAS lidocaine (Verified Allergy, Unknown, 01/06/16) peanut (Unverified Allergy, Unknown, air closes off, 07/19/13) strawberry (Unverified Allergy, Unknown, airway closes off, 07/19/13) codeine (Unverified Adverse Reaction, Mild, NAUSEA, 02/03/14) Uncoded Allergies: ENVIRONMENTAL (Allergy, Unknown, 07/19/13) raw egg whites (Adverse Reaction, Unknown, upset stomach, 12/09/17) Home Medications Acetaminophen 500 Mg Tablet, 1,500 MG PO HS, (Reported) TAKES 3 (500MG) TABS Amlodipine Besylate 10 Mg Tablet, 10 MG PO DAILY, (Reported) Atorvastatin Calcium 40 Mg Tablet, 40 MG PO DAILY, (Reported) Clopidogrel Bisulfate 75 Mg Tablet, 75 MG PO DAILY, (Reported) Fexofenadine HCl 180 Mg Tablet, 180 MG PO DAILY PRN for CONGESTION, (Reported) Furosemide 40 Mg Tablet, 40 MG PO HS, (Reported) Glimepiride 1 Mg Tab, 1 MG PO DAILY, (Reported) Insulin Detemir 100 Unit/1 Ml Insuln.pen, 15 UNIT SQ HS, (Reported) Losartan Potassium 50 Mg Tablet, 50 MG PO BID, (Reported) Metoprolol Tartrate 50 Mg Tablet, 50 MG PO BID, (Reported) Multivitamin W/Iron, Minerals 1 Each Tablet, 1 EACH PO DAILY, (Reported) [place]-3 Fatty Acids/Fish Oil 1 Each Capsule, 1 EACH PO DAILY, (Reported) Sitagliptin Phos/Metformin HCl 1 Each Tablet, 1 EACH PO BID, (Reported) Past Cociore-Iauylu-Gikkvx Hx Past Med/Social Hx: Reviewed and Corrections made Patient Social History Alcohol Use: Occasionally Uses Number of Drinks Today: Alcohol Beverage of Choice: Wine Recreational Drug Use: No Smoking Status: Never a Smoker 2nd Hand Smoke Exposure: Yes (PARENTS SMOKED) Recent Foreign Travel: No Contact w/Someone Who Travel: No Recent Infectious Disease Expo: No Recent Hopitalizations: No Immunizations Up To Date Tetanus Booster (TDap): Unknown Date of Pneumonia Vaccine: Aug 18, 2013 Seasonal Allergies Seasonal Allergies: Yes Past Medical History Surgeries: Yes (CARPAL TUNNEL RELASE SX, LEFT HAND SURGERY, L FOOT, EGD/COLONOSCOPY) Cardiac, Coronary Stent, Gallbladder, Orthopedic, Tonsillectomy Respiratory: Yes (RLL PUL. NODULE--FOLLOWED EVERY 6 MONTHS;INTUBATED 2018/PULM EDEMA/ARF ) Asthma, Sleep Apnea Currently Using CPAP: Yes Cardiac: Yes (CAD--STENTS X 2; MR/TR) Coronary Artery Disease, High Cholesterol, Hypertension, Irregular Heartbeat, Valvular Heart Disease Neurological: Yes Neuropathy Reproductive Disorders: No Sexually Transmitted Disease: No Genitourinary: No Gastrointestinal: Yes Gastroesophageal Reflux, Polyps, Hiatal Hernia, Ulcer Musculoskeletal: Yes (BILAT CARPAL TUNNEL SURG;L HAND SURG; L FOOT SURG) Arthritis Endocrine: No Diabetes, Insulin dep HEENT: No Loss of Vision: Denies Hearing Impairment: Denies Cancer: No Psychosocial: Yes Anxiety Integumentary: Yes Psoriasis Blood Disorders: No Adverse Reaction/Blood Tranf: No Family Medical History Congestive heart failure 19 MOTHER Family history: Arthritis 19 FATHER 19 MOTHER Family history: Cardiovascular disease 19 FATHER 19 MOTHER Family history: Diabetes mellitus 19 FATHER Family history: Glaucoma 19 MOTHER Family history: Hypertension 19 FATHER 19 MOTHER Family history: Osteoporosis 19 MOTHER Hearing loss 19 MOTHER Heart disease 19 FATHER 19 MOTHER Myocardial infarction 19 FATHER 19 MOTHER (DBL BYPASS) Stroke 19 MOTHER (MICRO STROKES) No Family History of: Abdominal aortic aneurysm Hudson's disease Alcoholism Aphasia Cancer Cancer of colon Cataract Chest pain Congenital heart disease Cystic fibrosis Dementia Dysphagia Family history: Allergy Family history: Alzheimer's disease Family history: Asthma Family history: Breast disease Family history: Coronary thrombosis Family history: Gastrointestinal disease Family history: Thyroid disorder Headache Hereditary disease History of - anemia History of - disorder History of - respiratory disease History of drug abuse Human immunodeficiency virus (HIV) seropositivity Hypercholesterolemia Infertile Kidney disease Malignant neoplasm of lung Parkinson's disease Prostate cancer Psychotic disorder Seizure disorder Tuberculosis Visual impairment Heart Disease, Diabetes, Hypertension PAST SURGICAL HISTORY: -CARDIAC CATHS--STENTS X 2 IN 2018. LAST CATH 02/04/19--NO INTERVENTION. HAD PATENT STENT TO LEFT CIRCUMFLEX, WITH COMPLETE OCCLUSION OF LEFT PDA; PATENT STENT TO RCA; MILD DISEASE IN OTHER VESSELS -APPENDECTOMY -EGD'S AND COLONOSCOPIES WITH POLYPECTOMY -BILATERAL CARPAL TUNNEL SURGERY -LEFT HAND SURGERY -LEFT FOOT SURGERY Sepsis Event Evaluation Height, Weight, BMI Height: 5'9.00" Weight: 247lbs. 7.0oz. 112.952157ne; 36.96 BMI Method:Stated Exam Exam Vital Signs Date Time Temp Pulse Resp B/P (MAP) Pulse Ox O2 Delivery O2 Flow Rate FiO2 11/11/19 05:00 77 17 123/67 (85) 97 Nasal Cannula 3.00 11/11/19 04:00 81 11 118/67 (84) 91 Room Air 11/11/19 04:00 Nasal Cannula 3.00 11/11/19 03:00 80 11 119/67 (84) 90 Room Air 11/11/19 02:55 36.7 92 97 21 11/11/19 02:00 85 19 136/86 (103) 96 Room Air 11/11/19 01:00 36.5 88 18 130/89 (103) 96 Room Air 11/11/19 01:00 73 11/11/19 00:45 80 14 144/75 (98) 93 Room Air 11/11/19 00:41 97 11/10/19 22:46 36.7 86 17 125/82 (117) 96 Room Air 11/10/19 18:51 36.7 92 18 169/91 (117) 97 Room Air I & O 11/11/19 07:00 Intake Total 2000 ml Output Total 620 ml Balance 1380 ml Height & Weight Height: 5'9.00" Weight: 247lbs. 7.0oz. 112.417889dm; 36.96 BMI Method:Stated General Appearance: No Apparent Distress, WD/WN, Obese, Other (DOES NOT APPEAR ILL OR TO BE IN ANY DISCOMFORT OR DISTRESS; TALKS NON-STOP AT GREAT LENGTH) HEENT: PERRL/EOMI, TMs Normal, Normal ENT Inspection, Pharynx Normal Neck: Full Range of Motion, Normal Inspection, Non Tender, Supple Respiratory: Normal Breath Sounds, No Accessory Muscle Use, No Respiratory Distress Cardiovascular: Regular Rate, Rhythm, No JVD, No Murmur, Normal Peripheral Pulses Capillary Refill: Less Than 3 Seconds Extremity: Normal Capillary Refill, Normal Range of Motion, Non Tender, No Calf Tenderness, Pedal Edema (1+ EDEMA BILATERAL LOWER LEGS) Neurologic/Psychiatric: Alert, Oriented x3, No Motor/Sensory Deficits, Normal Mood/Affect, product development coordinator II-XII Norm as Tested Skin: Normal Color, Warm/Dry; No Rash Results Lab Laboratory Tests 11/10/19 19:00 11/11/19 01:22 11/11/19 03:26 Assessment/Plan Assessment/Plan DM - uncontrolled -D/C insulin gtt -Restart home Levemier -IVF - Change to LR at 50 -COVID pending Lactic acidosis secondary to dehydration -IVF Hypokalemia -replace GIULIANA WARNER DO Nov 11, 2019 06:05
[2019-11-11] MEDS: KCL 20 MEQ TAB (K-DUR) PO SCH (06:13)
[2019-11-11] MEDS: MAGNESIUM 1 GM/100 ML IVPB 100 ML IV SCH (06:14)
[2019-11-11 06:22] LABS: AMPHETAMINE SCREEN, URINE NEGATIVE (NEGATIVE); BARBITURATE SCREEN URINE NEGATIVE (NEGATIVE); BENZODIAZEPINES SCREEN URINE NEGATIVE (NEGATIVE); CANNABINOID SCREEN, URINE NEGATIVE (NEGATIVE); COCAINE SCREEN URINE NEGATIVE (NEGATIVE); METHADONE STAT NEGATIVE (NEGATIVE); METHAMPHETAMINE SCREEN URINE S NEGATIVE (NEGATIVE); OPIATE SCREEN URINE NEGATIVE (NEGATIVE); OXYCODONE STAT NEGATIVE (NEGATIVE); PROPOXYPHENE STAT NEGATIVE (NEGATIVE); TRICYCLIC ANTIDEPRESSANTS SCRE NEGATIVE (NEGATIVE)
[2019-11-11] MEDS: LACTATED RINGERS 1,000 ML IV SCH (06:28)
[2019-11-11 07:40] LABS: CHLORIDE 104 MMOL/L (98-107); POTASSIUM 3.3 MMOL/L (3.6-5.0); SODIUM 138 MMOL/L (135-145)
[2019-11-11 07:42] LABS: CALCIUM 8.3 MG/DL (8.5-10.1); GLUCOSE 236 MG/DL (70-105)
[2019-11-11 07:44] LABS: CARBON DIOXIDE 24 MMOL/L (21-32)
[2019-11-11 07:46] LABS: CREATININE SERUM 1.05 MG/DL (0.60-1.30); GFR ESTIMATED > 60
[2019-11-11 07:47] LABS: BUN/CREATININE RATIO 10
[2019-11-11] MEDS: ENOXAPARIN 40 MG/0.4 ML (LOVENOX) SYR SC SCH (08:15)
[2019-11-11] MEDS ORDERED: inSUlin ASPART (NovoLOG) 1 UNIT/0.01 ML (CHARGE PER UNIT) ONE (10:59)
[2019-11-11] MEDS: inSUlin ASPART (NovoLOG) 1 UNIT/0.01 ML (CHARGE PER UNIT) SC SCH ×3 (11:04→20:20)
--- NOTE | 2019-11-11 11:36 | History & Physical-Hospitalist ---
History of Present Illness HPI/Chief Complaint CC: Nausea and vomiting HPI: This is a 59yoWM with severe debility with diabetes who presented with severe nausea and vomiting and elevated lactic acid from dehydration and severe hyperglycemia. He was aggressively treated with IV fluids along with insulin drip and currently doing well but very fatigued. His covid swab is still pending. We are replacing potassium aggressively through his IV and will place a midline. Source: patient, RN/MD Exam Limitations: no limitations Date Seen 11/11/19 Time Seen by a Provider: 10:00 Attending Physician Shereen Grey DO PCP Socrates Hurtado MD Referring Physician Date of Admission Nov 10, 2019 at 22:09 Home Medications & Allergies Home Medications Reviewed patient Home Medication Reconciliation performed by pharmacy medication reconciliations registered pharmacy technician and/or nursing. Patients Allergies have been reviewed. Allergies Allergies Coded Allergies aspirin (Verified Allergy, Severe, 12/10/17) Insulins (Unverified Allergy, Unknown, 06/06/15) Penicillins (Unverified Allergy, Unknown, 07/19/13) Sulfa (Sulfonamide Antibiotics) (Unverified Allergy, Unknown, 07/19/13) lactose (Unverified Allergy, Unknown, 12/10/17) CAUSES GAS lidocaine (Verified Allergy, Unknown, 01/06/16) peanut (Unverified Allergy, Unknown, air closes off, 07/19/13) strawberry (Unverified Allergy, Unknown, airway closes off, 07/19/13) codeine (Unverified Adverse Reaction, Mild, NAUSEA, 02/03/14) Uncoded Allergies ENVIRONMENTAL ( Allergy, Unknown, 07/19/13) raw egg whites ( Adverse Reaction, Unknown, upset stomach, 12/09/17) Past Mifkiem-Vjhsum-Bdckqy Hx Past Med/Social Hx: Reviewed Nursing Past Med/Soc Hx, Reviewed and Corrections made Patient Social History Marrital Status: single Employed/Student: unemployed, retired Alcohol Use: Denies Use Alcohol Beverage of Choice: Wine Recreational Drug Use: No Smoking Status: Never a Smoker 2nd Hand Smoke Exposure: Yes (PARENTS SMOKED) Recent Foreign Travel: No Contact w/other who traveled: No Recent Hopitalizations: No Recent Infectious Disease Expo: No Immunizations Up To Date Tetanus Booster (TDap): Unknown Date of Pneumonia Vaccine: Aug 18, 2013 Seasonal Allergies Seasonal Allergies: Yes Past Medical History Surgeries: Cardiac, Coronary Stent, Gallbladder, Orthopedic, Tonsillectomy Currently Using CPAP: Yes Cardiac: Coronary Artery Disease, High Cholesterol, Hypertension, Irregular Heartbeat, Valvular Heart Disease Neurological: Neuropathy Reproductive: No Sexually Transmitted Disease: No Gastrointestinal: Gastroesophageal Reflux, Polyps, Hiatal Hernia, Ulcer Musculoskeletal: Arthritis Endocrine: Diabetes, Insulin dep Loss of Vision: Denies Hearing Impairment: Denies Psychosocial: Anxiety Skin/Integumentary: Psoriasis History of Blood Disorders: No Adverse Reaction to Blood Rust: No Family History Congestive heart failure 19 MOTHER Family history: Arthritis 19 FATHER 19 MOTHER Family history: Cardiovascular disease 19 FATHER 19 MOTHER Family history: Diabetes mellitus 19 FATHER Family history: Glaucoma 19 MOTHER Family history: Hypertension 19 FATHER 19 MOTHER Family history: Osteoporosis 19 MOTHER Hearing loss 19 MOTHER Heart disease 19 FATHER 19 MOTHER Myocardial infarction 19 FATHER 19 MOTHER (DBL BYPASS) Stroke 19 MOTHER (MICRO STROKES) No Family History of: Abdominal aortic aneurysm [place]'s disease Alcoholism Aphasia Cancer Cancer of colon Cataract Chest pain Congenital heart disease Cystic fibrosis Dementia Dysphagia Family history: Allergy Family history: Alzheimer's disease Family history: Asthma Family history: Breast disease Family history: Coronary thrombosis Family history: Gastrointestinal disease Family history: Thyroid disorder Headache Hereditary disease History of - anemia History of - disorder History of - respiratory disease History of drug abuse Human immunodeficiency virus (HIV) seropositivity Hypercholesterolemia Infertile Kidney disease Malignant neoplasm of lung Parkinson's disease Prostate cancer Psychotic disorder Seizure disorder Tuberculosis Visual impairment Heart Disease, Diabetes, Hypertension PAST SURGICAL HISTORY: -CARDIAC CATHS--STENTS X 2 IN 2018. LAST CATH 02/04/19--NO INTERVENTION. HAD PATENT STENT TO LEFT CIRCUMFLEX, WITH COMPLETE OCCLUSION OF LEFT PDA; PATENT STENT TO RCA; MILD DISEASE IN OTHER VESSELS -APPENDECTOMY -EGD'S AND COLONOSCOPIES WITH POLYPECTOMY -BILATERAL CARPAL TUNNEL SURGERY -LEFT HAND SURGERY -LEFT FOOT SURGERY Review of Systems Constitutional: see HPI, malaise, weakness Respiratory: cough Gastrointestinal: nausea, vomiting Physical Exam Physical Exam Vital Signs Vital Signs - First Documented 11/10/19 11/11/19 11/11/19 18:51 02:55 04:00 Temp 36.7 Pulse 92 Resp 18 B/P (MAP) 169/91 (117) Pulse Ox 97 O2 Delivery Room Air O2 Flow Rate 3.00 FiO2 21 Capillary Refill : Less Than 3 Seconds Height, Weight, BMI Height: 5'9.00" Weight: 247lbs. 7.0oz. 112.682628tj; 36.96 BMI Method:Stated General Appearance: No Apparent Distress, Chronically ill, Obese Eyes: Right Eye Normal Inspection, Right Eye PERRL HEENT: PERRL/EOMI, Normal ENT Inspection, Pharynx Normal, Moist Mucous Membranes Neck: Full Range of Motion, Normal Inspection, Non Tender Respiratory: Chest Non Tender, Lungs Clear, Normal Breath Sounds, No Accessory Muscle Use, No Respiratory Distress Cardiovascular: Regular Rate, Rhythm, No Edema, No Gallop, No JVD, No Murmur, Normal Peripheral Pulses Gastrointestinal: Normal Bowel Sounds, No Organomegaly, No Pulsatile Mass, Non Tender, Soft Back: Normal Inspection, No CVA Tenderness, No Vertebral Tenderness Extremity: Normal Capillary Refill, Normal Inspection, Normal Range of Motion, Non Tender, No Calf Tenderness, No Pedal Edema Neurologic/Psychiatric: Alert, Oriented x3, No Motor/Sensory Deficits, Normal Mood/Affect Skin: Normal Color, Warm/Dry Lymphatic: No Adenopathy Results Results/Procedures Labs Laboratory Tests 11/10/19 19:00 11/11/19 01:22 11/11/19 03:26 11/11/19 07:23 11/11/19 21:35 Patient resulted labs reviewed. Assessment/Plan Admission Diagnosis Assessment: Refractory nausea and vomiting Severe hyperglycemia COVID swab pending Chronic debility Plan: IV fluids Insulin drip transition to SQ insulin Await COVID swab Needs midline placed Admission Status: Inpatient Order (span 2 midnights) Reason for Inpatient Admission: severe hyperglycemia Diagnosis/Problems Diagnosis/Problems (1) Lactic acidosis Status: Acute (2) Mild dehydration Status: Acute (3) Nausea & vomiting Status: Acute (4) Diabetes mellitus, insulin dependent (IDDM), uncontrolled Status: Acute (5) Person under investigation for COVID-19 Status: Acute Clinical Quality Measures DVT/VTE Risk/Contraindication: Risk Factor Score Per Nursin RFS Level Per Nursing on Admit: 3=High SHEREEN GREY DO Nov 11, 2019 11:35
--- NOTE | 2019-11-11 15:00 | NUR ---
THIS RN TRANSFERRED PT TO 4TH MEDICAL/SURGICAL FLOOR VIA WHEELCHAIR. MIDLINE TO LEFT UPPERARM INTACT WITH LR AND K+ RUNNING UPON ARRIVAL. PT ASSISTED TO PT BED, BED PLACED IN LOWERST POSITION, CALL LIGHT GIVEN TO PT. BEDSIDE REPORT GIVEN TO XOCHITL VALENCIA.
[2019-11-11] MEDS ORDERED: DULO60CA59 PO (16:48)
[2019-11-11] MEDS ORDERED: METO50TA15 PO (16:48)
[2019-11-11] MEDS ORDERED: LOSA100T57 PO (16:48)
--- NOTE | 2019-11-11 16:50 | NUR ---
SPOKE WITH THE PT (HE HAS HIS HOME MEDS WITH HIM) AND GOT A MEDICATION LIST FROM [facility] TO COMPLETE THE MED REC 08-24-2019 DULOXETINE 60MG #90/90DS 09-14-2019 METOPROLOL TART 50MG #180/90DS 10-10-2019 LEVEMIR PEN #5 11-03-2019 CLOPIDOGREL 75MG #30/30DS 11-03-2019 LOSARTAN 100MG #30/30DS 11-03-2019 FUROSEMIDE 40MG #30/30DS 11-03-2019 AMLODIPINE 10MG #30/30DS 11-03-2019 JANUMET 50/1000MG #60/30DS 11-03-2019 GLIMEPIRIDE 1MG #30/3D0S 11-03-2019 ATORVASTATIN 80MG #30/30DS OTC MEDS: TYLENOL MTV OMEGA 3
[2019-11-11] MEDS ORDERED: ALPRAZolam 0.25 MG (XANAX) TAB PO PRN (20:45)
[2019-11-11] MEDS ORDERED: MELATONIN 3 MG TABLET PO PRN (20:45)
[2019-11-11] MEDS ORDERED: LOPERAMIDE 2 MG (IMODIUM) TABLET PO PRN (20:45)
[2019-11-11] MEDS ORDERED: diphenhydrAMINE 25 MG TAB (BENADRYL) PO PRN (20:45)
[2019-11-11] MEDS ORDERED: HYDROcodone/APAP 5 MG/325 MG (LORTAB) TAB PO PRN (20:45)
[2019-11-11] MEDS ORDERED: CALCIUM CARBONATE 500 MG (TUMS) TAB.CHEW PO PRN (20:45)
[2019-11-11] MEDS ORDERED: DOCUSATE SODIUM 100 MG (COLACE) CAP PO PRN (20:45)
[2019-11-11 21:50] LABS: CHLORIDE 105 MMOL/L (98-107); POTASSIUM 3.3 MMOL/L (3.6-5.0); SODIUM 138 MMOL/L (135-145)
[2019-11-11 21:51] LABS: CALCIUM 8.5 MG/DL (8.5-10.1)
[2019-11-11 21:52] LABS: GLUCOSE 189 MG/DL (70-105)
[2019-11-11 21:53] LABS: CARBON DIOXIDE 20 MMOL/L (21-32)
[2019-11-11] MEDS: ACETAMINOPHEN 500 MG TAB (TYLENOL) PO PRN (21:53)
[2019-11-11 21:56] LABS: BUN/CREATININE RATIO 6; CREATININE SERUM 1.19 MG/DL (0.60-1.30); GFR ESTIMATED > 60
[2019-11-11] MEDS: SENNA W/DOCUSATE (SENOKOT S) TABLET PO SCH (23:27)
[2019-11-11] MEDS: ONDANSETRON 4 MG/2 ML (SDV) Z0FRAN IVP PRN (23:30)
[2019-11-12] MEDS: LACTATED RINGERS 1,000 ML IV SCH (03:32)
[2019-11-12 04:09] VITALS: BP 154/81
[2019-11-12] MEDS: inSUlin ASPART (NovoLOG) 1 UNIT/0.01 ML (CHARGE PER UNIT) SC SCH ×4 (05:11→20:18)
[2019-11-12 05:16] LABS: BASOPHILS % (AUTO) 1 % (0-10); EOSINOPHILS # (AUTO) 0.4 10^3/uL (0.0-0.3); EOSINOPHILS % (AUTO) 5 % (0-10); HEMATOCRIT 36 % (40-54); LYMPHOCYTES # (AUTO) 1.6 10^3/uL (1.0-4.0); LYMPHOCYTES % (AUTO) 21 % (12-44); MEAN CORPUSCULAR HEMOGLOBIN 29 pg (25-34); MEAN CORPUSCULAR HGB CONC 33 g/dL (32-36); MEAN CORPUSCULAR VOLUME 87 fL (80-99); MEAN PLATELET VOLUME 9.4 fL (9.0-12.2); MONOCYTES # (AUTO) 0.5 10^3/uL (0.0-1.0); MONOCYTES % (AUTO) 6 % (0-12); NEUTROPHILS # (AUTO) 5.2 10^3/uL (1.8-7.8); NEUTROPHILS % (AUTO) 67 % (42-75); PLATELET COUNT 291 10^3/uL (130-400); WHITE BLOOD COUNT 7.8 10^3/uL (4.3-11.0)
[2019-11-12 05:22] LABS: CHLORIDE 105 MMOL/L (98-107); POTASSIUM 3.3 MMOL/L (3.6-5.0); SODIUM 138 MMOL/L (135-145)
[2019-11-12 05:23] LABS: CALCIUM 8.3 MG/DL (8.5-10.1); GLUCOSE 242 MG/DL (70-105)
[2019-11-12 05:25] LABS: CARBON DIOXIDE 23 MMOL/L (21-32)
[2019-11-12 05:27] LABS: CREATININE SERUM 1.07 MG/DL (0.60-1.30); GFR ESTIMATED > 60; PHOSPHORUS 2.8 MG/DL (2.3-4.7)
--- NOTE | 2019-11-12 05:27 | Progress Note - Hospitalist ---
Subjective HPI/CC On Admission Date Seen by Provider: Nov 12, 2019 Time Seen by Provider: 10:00 CC: Nausea and vomiting HPI: This is a 59yoWM with severe debility with diabetes who presented with severe nausea and vomiting and elevated lactic acid from dehydration and severe hyperglycemia. He was aggressively treated with IV fluids along with insulin drip and currently doing well but very fatigued. His covid swab is still pending. We are replacing potassium aggressively through his IV and will place a midline. Subjective/Events-last exam Pt doing a lot better Will have PT and OT get him up and moving around Will likely discharge tomorrow Potassium 3.3 Blood sugars improved Restarting all home meds Review of Systems General: Fatigue, Malaise Focused Exam Lactate Level 11/10/19 19:00: Lactic Acid Level 2.29*H 11/11/19 01:22: Lactic Acid Level 1.50 Objective Exam Vital Signs Vital Signs Date Time Temp Pulse Resp B/P (MAP) Pulse Ox O2 Delivery O2 Flow Rate FiO2 11/13/19 04:38 36.2 70 20 125/68 (87) 95 Nasal Cannula 2.00 11/11/19 02:55 21 Capillary Refill : Less Than 3 Seconds General Appearance: No Apparent Distress, WD/WN, Chronically ill Respiratory: Chest Non Tender, Lungs Clear, Normal Breath Sounds, No Accessory Muscle Use, No Respiratory Distress Cardiovascular: Regular Rate, Rhythm, No Edema, No Gallop, No JVD, No Murmur, Normal Peripheral Pulses Neurologic/Psychiatric: Alert, Oriented x3, No Motor/Sensory Deficits, Normal Mood/Affect Results/Procedures Lab Patient resulted labs reviewed. Assessment/Plan Assessment and Plan Assess & Plan/Chief Complaint Assessment: Refractory nausea and vomiting Severe hyperglycemia COVID swab pending Chronic debility DM HTN Plan: Home meds Monitor closely Diagnosis/Problems Diagnosis/Problems (1) Lactic acidosis Status: Acute (2) Mild dehydration Status: Acute (3) Nausea & vomiting Status: Acute (4) Diabetes mellitus, insulin dependent (IDDM), uncontrolled Status: Acute (5) Person under investigation for COVID-19 Status: Acute Clinical Quality Measures DVT/VTE Risk/Contraindication: Risk Factor Score Per Nursin RFS Level Per Nursing on Admit: 3=High DEIRDRE DIANA DO Nov 12, 2019 05:27
[2019-11-12 05:28] LABS: BUN/CREATININE RATIO 7
[2019-11-12 05:29] LABS: MAGNESIUM 1.6 MG/DL (1.6-2.4)
[2019-11-12] MEDS: MAGNESIUM 1 GM/100 ML IVPB 100 ML IV SCH ×3 (06:16→08:27)
[2019-11-12] MEDS: POTASSIUM CL 10MEQ/50ML IVPB 50 ML IV SCH (06:17)
[2019-11-12] MEDS: KCL 20 MEQ TAB (K-DUR) PO SCH (06:41)
--- NOTE | 2019-11-12 07:41 | Pulmonary Progress Note ---
Subjective Time Seen by a Provider: 07:36 Sepsis Event Evaluation Height, Weight, BMI Height: 5'9.00" Weight: 247lbs. 7.0oz. 112.907617kq; 36.96 BMI Method:Stated Focused Exam Lactate Level 11/10/19 19:00: Lactic Acid Level 2.29*H 11/11/19 01:22: Lactic Acid Level 1.50 Exam Exam Vital Signs Date Time Temp Pulse Resp B/P (MAP) Pulse Ox O2 Delivery O2 Flow Rate FiO2 11/12/19 04:09 37.3 97 20 154/81 (105) 93 Nasal Cannula 2.00 11/12/19 01:00 91 11/11/19 23:45 37.7 95 20 145/73 (97) 93 Room Air 11/11/19 23:10 3.00 11/11/19 19:40 Room Air 11/11/19 19:40 37.5 100 20 155/82 (106) 92 Room Air 11/11/19 19:00 100 11/11/19 17:00 96 Room Air 11/11/19 15:30 36.6 92 18 147/88 (107) 93 Nasal Cannula 3.00 11/11/19 13:29 92 Room Air 11/11/19 12:48 87 11/11/19 12:00 36.8 11/11/19 12:00 94 137/73 (94) 93 Room Air 11/11/19 11:39 Room Air 11/11/19 11:39 96 Room Air 11/11/19 11:00 100 8 157/89 (111) 93 Nasal Cannula 3.00 11/11/19 10:00 91 11 159/87 (111) 97 Nasal Cannula 3.00 11/11/19 08:11 96 Nasal Cannula 3.00 11/11/19 08:07 36.6 11/11/19 08:00 82 17 155/90 (111) 97 Nasal Cannula 3.00 I & O 11/12/19 07:00 Intake Total 5090 ml Output Total 700 ml Balance 4390 ml Height & Weight Height: 5'9.00" Weight: 247lbs. 7.0oz. 112.037784pd; 36.96 BMI Method:Stated General Appearance: No Apparent Distress, Chronically ill, Obese HEENT: PERRL/EOMI, Normal ENT Inspection, Pharynx Normal, Moist Mucous Membranes Neck: Full Range of Motion, Normal Inspection, Non Tender Respiratory: Chest Non Tender, Lungs Clear, Normal Breath Sounds, No Accessory Muscle Use, No Respiratory Distress Cardiovascular: Regular Rate, Rhythm, No Edema, No Gallop, No JVD, No Murmur, Normal Peripheral Pulses Capillary Refill: Less Than 3 Seconds Extremity: Normal Capillary Refill, Normal Inspection, Normal Range of Motion, Non Tender, No Calf Tenderness, No Pedal Edema Neurologic/Psychiatric: Alert, Oriented x3, No Motor/Sensory Deficits, Normal Mood/Affect Skin: Normal Color, Warm/Dry Lymphatic: No Adenopathy Results Lab Laboratory Tests 11/10/19 19:00 11/11/19 01:22 11/11/19 03:26 11/11/19 07:23 11/11/19 21:35 11/12/19 04:58 Assessment/Plan Assessment/Plan DM - uncontrolled home Levemier -IVF - Change to LR at 50 -COVID pending Lung nodule -Will need repeat CT scan of chest in 6mo Lactic acidosis secondary to dehydration -IVF Hypokalemia -replace GIULIANA WARNER DO Nov 12, 2019 07:41
[2019-11-12 08:00] VITALS: BP 169/86
[2019-11-12] MEDS ORDERED: KCL 20 MEQ TAB (K-DUR) PO ONE (08:30)
[2019-11-12] MEDS: SENNA W/DOCUSATE (SENOKOT S) TABLET PO SCH ×2 (08:47→20:13)
[2019-11-12] MEDS: ENOXAPARIN 40 MG/0.4 ML (LOVENOX) SYR SC SCH (08:47)
[2019-11-12] MEDS ORDERED: SCOPOLAMINE 1.5 MG (TRANSDERM-SCOP) PATCH TOP SCH (09:00)
--- NOTE | 2019-11-12 09:10 | Progress Note ---
AKANKSHA HOLT MED STUDENT 11/12/19 0910: Progress Note Assessment: 1. Hyperglycemia 2. HTN 3. T2DM 4. Nausea 5. CAD 6. HLD 7. GERD 8. Hiatal hernia 9. Arthritis 10. Hypoxemia 11. Hypokalemia 12. Diabetic ulcers(B feet) 13. Hypocalcemia 14. Fatigue 15. Neuropathy 16. Colon polyps 17. Chronic diarrhea 18. Irregular heart beat 19. COPD 20. Chronic bronchitis 21. Obesity 22. Poor diet 23. Impaired mobility 24. Falls risk 25. Anxiety 26. Macular edema 27. Dehydration 28. CHF 29. Psoriasis 30. GI ulcer 31. Valvular heart disease 32. Peripheral edema 33. Carpal tunnel syndrome 34. Seasonal allergies 35. Sleep apnea 36. Lactic acidosis 37. Chronic pain 38. Lactose intolerant 39. Polydipsia 40. Lung nodule SHEREEN DIANA DO 11/12/19 1042: Supervisory-Addendum Brief Verification & Attestation Participated in pt care: history, MDM, physical Personally performed: exam, history, MDM, supervision of care Care discussed with: Medical Student Procedures: n/a Results interpretation: Verified all documentation Verification and Attestation of Medical Student E/M Service A medical student performed and documented this service in my presence. I reviewed and verified all information documented by the medical student and made modifications to such information, when appropriate. I personally performed the physical exam and medical decision making. Shereen Diana, Nov 12, 2019,10:42 AKANKSHA HOLT MED STUDENT Nov 12, 2019 09:10 SHEREEN DIANA DO Nov 12, 2019 10:42
[2019-11-12] MEDS ORDERED: PATIENT MAY USE OWN MEDS, ALL MC SCH (11:30)
[2019-11-12 12:00] VITALS: BP 177/92
--- NOTE | 2019-11-12 13:11 | Physical Therapy Evaluation ---
PT Evaluation-General Medical Diagnosis Admission Date Nov 10, 2019 at 22:09 Medical Diagnosis: uncontrolled DM Onset Date: Nov 10, 2019 Therapy Diagnosis Therapy Diagnosis: debility Height/Weight Height (Feet): 5 Height (Inches): 9.00 Weight (Pounds): 247 Weight (Ounces): 7.0 Precautions Precautions/Isolations: Standard Precautions Referral Physician: Matilda Reason for Referral: Evaluation/Treatment Medical History Pertinent Medical History: Arthritis, COPD, DM, HTN, Neuropathy Additional Medical History obesity Current History ER with N/V and dizziness Reviewed History: Yes Social History Home: Single Level Current Living Status: Alone Entry Into Home: Stairs With Railing PT Steps Into Home: 3 Prior Prior Level of Function SCALE: Activities may be completed with or without assistive devices. 8-Aipxpkujpa-iihjnxs completes the activity by him/herself with no assistance from a helper. 5-Set-up or Clean-up Assistance-helper sets up or cleans up; patient completes activity. [place] assists only prior to or following the activity. 4-Supervision or Touching Assistance-helper provides verbal cues and/or touching/steadying and/or contact guard assistance as patient completes activity. Assistance may be provided throughout the activity or intermittently. 3-Partial/Moderate Assistance-helper does LESS THAN HALF the effort. [place] lifts, holds or supports trunk or limbs, but provides less than half the effort. 2-Substantial/Maximal Assistance-helper does MORE THAN HALF the effort. [place] lifts or holds trunk or limbs and provides more than half the effort. 6-Dfzvtsmok-dwsusi does ALL the effort. Patient does none of the effort to complete the activity. Or, the assistance of 2 or more helpers is required for the patient to complete the activity. If activity was not attempted, code reason: 7-Patient Refused. 9-Not Applicable-not attempted and the patient did not perform the activity before the current illness, exacerbation or injury. 10-Not Attempted due to Environmental Limitations-(lack of equipment, weather restraints, etc.). 88-Not Attempted due to Medical Conditions or Safety Concerns. Bed Mobility: 6 Transfers (B,C,W/C): 6 Gait: 6 Stairs: 6 Indoor Mobility (Ambulation): Independent Prior Devices Use: None PT Evaluation-Current Subjective Patient agrees to PT. Objective Patient Orientation: Normal For Age Attachments: IV ROM/Strength ROM Lower Extremities bilateral LE WFL Strength Lower Extremities 5/5 grossly bilateral LE Integumentary/Posture Integumentary refer to nursing notes Bowel Incontinence: No Bladder Incontinence: No Posture WFL Neuromuscular (Tone, Coordination, Reflexes) grossly intact Sensory Vision: Wears Glasses Hearing: Functional Sensation Right Lower Extremit: Impaired Sensation Left Lower Extremity: Impaired Transfers Roll Left to Right (QC): 6 Sit to Lying (QC): 6 Lying to Sitting/Side of Bed(Q: 6 Sit to Stand (QC): 6 Chair/Xyz-dq-Ojwnr Xfer(QC): 6 Gait Does the Patient Walk?: Yes Mode of Locomotion: Walk Walk 10 feet (QC): 6 Walk 50 ft with 2 Turns(QC): 6 Walk 150 ft (QC): 6 Gait Assistive Device: None Comments/Gait Description safe and functional with no deviation Balance Sitting Static: Normal Sitting Dynamic: Normal Standing Static: Normal Standing Dynamic: Normal Picking up an Object (QC): 6 Assessment/Needs PT/OT cotreat with OT address ADL's while PT address functional mobility. Patient is currently at independent LOF and does not require skilled therapy intervention. Rehab Potential: Fair PT Plan Treatment/Plan Treatment Plan: Discontinue PT, goals met Treatment Duration: Nov 12, 2019 Frequency: 1 time per week Estimated Hrs Per Day: .25 hour per day Time/GCodes Time In: 1115 Time Out: 1128 Total Billed Treatment Time: 13 Total Billed Treatment 1 visit [facility] 13 min DARLENE CARREON PT Nov 12, 2019 13:11
--- NOTE | 2019-11-12 13:59 | Occupational Therapy Eval ---
OT Evaluation-General/PLF Medical Diagnosis Admission Date Nov 10, 2019 at 22:09 Medical Diagnosis: Nausea/vomitting, dehydration/severe hyperglycemia Onset Date: Nov 10, 2019 Therapy Diagnosis Therapy Diagnosis: Weakness Height/Weight Height (Feet): 5 Height (Inches): 9.00 Weight (Pounds): 247 Weight (Ounces): 7.0 Precautions Precautions/Isolations: Standard Precautions Weight Bear Status Weight Bearing Restriction: Weight Bearing/Tolerated Referral Physician: Matilda Referral Reason: Activity Tolerance, Self Care, Evaluation/Treatment, Strengt hening/ROM Medical History Pertinent Medical History: Arthritis, CAD, COPD, DM, HTN, Neuropathy Additional Medical History Coronary stent, gallbladder, stents x 2, hand/foot surgery Current History Pt. came to ER with nausea and vomiting. Severe hyperglycemia. Pt. tested for COVID but results came back negative. Reviewed History: Yes Social History Home: Single Level Current Living Status: Alone Entry Into Home: Stairs With Railing Steps Into Home: 3 ADL-Prior Level of Function SCALE: Activities may be completed with or without assistive devices. 6-Wpmpklvqnc-perwlgh completes the activity by him/herself with no assistance from a helper. 5-Set-up or Clean-up Assistance-helper sets up or cleans up; patient completes activity. [place] assists only prior to or following the activity. 4-Supervision or Touching Assistance-helper provides verbal cues and/or touching/steadying and/or contact guard assistance as patient completes activity. Assistance may be provided throughout the activity or intermittently. 3-Partial/Moderate Assistance-helper does LESS THAN HALF the effort. [place] lifts, holds or supports trunk or limbs, but provides less than half the effort. 2-Substantial/Maximal Assistance-helper does MORE THAN HALF the effort. [place] lifts or holds trunk or limbs and provides more than half the effort. 4-Zbenndusw-hbujjw does ALL the effort. Patient does none of the effort to complete the activity. Or, the assistance of 2 or more helpers is required for the patient to complete the activity. If activity was not attempted, code reason: 7-Patient Refused. 9-Not Applicable-not attempted and the patient did not perform the activity before the current illness, exacerbation or injury. 10-Not Attempted due to Environmental Limitations-(lack of equipment, weather restraints, etc.). 88-Not Attempted due to Medical Conditions or Safety Concerns. ADL PLOF Comments Pt. reports that he lives in a home alone in [place] [facility]. He is independent with daily tasks. He states that he has several canes and walkers that belonged to his mother, but that she has since . He occasionally uses a cane if he is feeling "weak." Self Care: Independent Functional Cognition: Independent DME/Equipment: Bath Chair, Tub/Shower DME/Equipment Comments Pt. has canes, walkers, a shower chair. Occupation: Disabled, does not work Drive Self: Yes OT Current Status Subjective Pt. does not report pain. States that he is feeling "so much better" than he was two days ago. Appearance Pt. in bed when OT entered room. Pt. alert and oriented. Agrees to work with therapy. Mental Status/Objective Patient Orientation: Person, Place, Time, Situation Attachments: IV Current Glasses/Contacts: Yes Upper Extremity ROM WFL ADL-Treatment Eating (QC): 6 (Reported by pt.) Oral Hygiene (QC): 6 (Reported by pt. Pt. has already ambulated on his own to bathroom, and shaved face/brushed teeth.) On/Off Footwear (QC): 6 (Pt. demonstrates independence with donning/doffing slipper socks sitting on side of bed.) Toileting Hygiene (QC): 6 (Pt. had just returned from bathroom independently when OT entered room.) Other Treatments Partial co-treatment performed by OT/PT to assess pt. together due to charted illness at admission. At this time, pt. states that he is feeling so much better, has regained his strength, and is ambulating with no difficulty and performing tasks in room with no difficulty. OT assessed ADL skills and function while PT assessed balance and ambulation. Pt. reports that prior to OT entering room, he had ambulated independently to the bathroom, used the toilet, stood at the sink, and brushed teeth and shaved. Pt. ambulated back to bed and transferred to bed. Pt. reports that he had no LOB. Pt. agrees to work with OT/PT at this time. Transferred supine-sit independently. Donned slipper socks with independence sitting on side of bed. Pt. ambulated with independence in conroy with OT/PT to assess. Please see PT note for distance ambulated. Pt. ambulated back to chair in room and positioned self in chair with no difficulty. All needs met and pt. agreeable that he does not need OT/PT services at this time, due to level of skilled independence. Education OT Patient Education: Correct positioning, Modified ADL techniques, Progress toward Goal/Update tx plan, Purpose of tx/functional activities, Reviewed precautions, Rehab process, Transfer techniques Teaching Recipient: Patient Teaching Methods: Demonstration, Discussion Response to Teaching: Verbalize Understanding, Return Demonstration OT [facility] Goals Lag Screwer Goals Time Frame: Nov 12, 2019 1=Demonstrate adherence to instructed precautions during ADL tasks. 2=Patient will verbalize/demonstrate understanding of assistive devices/modifications for ADL. 3=Patient will improve strength/tolerance for activity to enable patient to perform ADL's. Pt. will be independent with ADL skills and functional tasks in room, as evidenced by staff. No further OT needs at this time. OT Education/Plan Problem List/Assessment Assessment: No Skilled OT Needs ID'd Discharge Recommendations Plan/Recommendations: Discharge/Goals Met Equpiment Recommendations-D/C: None Treatment Plan/Plan of Care Treatment,Training & Education: Yes Plan of Care: OTHER Treatment Duration: Nov 12, 2019 Frequency: 1 time per week Estimated Hrs Per Day: .25 hour per day Agreement: Yes Rehab Potential: Good Time/GCodes Start Time: 11:15 Stop Time: 11:28 Total Time Billed (hr/min): 13 Billed Treatment Time 1, EVL x 13minutes Co-treat with PT. Please see above note for designated roles. No further OT services warranted at this time. Pt. independent in room. TIMOTHY HERNÁNDEZ OT Nov 12, 2019 13:59
[2019-11-12] MEDS: ACETAMINOPHEN 500 MG TAB (TYLENOL) PO PRN (15:37)
[2019-11-12 16:00] VITALS: BP 190/91
[2019-11-12] MEDS ORDERED: CYMBALTA 60 MG PO SCH (17:00)
[2019-11-12] MEDS: ONDANSETRON 4 MG/2 ML (SDV) Z0FRAN IVP PRN (19:31)
[2019-11-12 20:00] VITALS: BP 187/94
[2019-11-12] MEDS: meTOprolol TARTRATE 50 MG (LOPRESSOR) TAB PO SCH (20:12)
[2019-11-12] MEDS: JANUMET PO SCH (20:13)
[2019-11-12] MEDS ORDERED: LEVEMIR 15 UNIT SQ SCH (21:00)
[2019-11-12] MEDS ORDERED: ACETAMINOPHEN 500 MG TAB (TYLENOL) PO SCH (21:00)
[2019-11-13] VITALS: BP 147/70
[2019-11-13] MEDS: LACTATED RINGERS 1,000 ML IV SCH (01:19)
[2019-11-13 04:38] VITALS: BP 125/68
[2019-11-13 05:34] LABS: BASOPHILS % (AUTO) 1 % (0-10); EOSINOPHILS # (AUTO) 0.4 10^3/uL (0.0-0.3); EOSINOPHILS % (AUTO) 7 % (0-10); HEMATOCRIT 37 % (40-54); HEMOGLOBIN 12.2 g/dL (13.3-17.7); LYMPHOCYTES # (AUTO) 1.8 10^3/uL (1.0-4.0); LYMPHOCYTES % (AUTO) 26 % (12-44); MEAN CORPUSCULAR HEMOGLOBIN 29 pg (25-34); MEAN CORPUSCULAR HGB CONC 33 g/dL (32-36); MEAN CORPUSCULAR VOLUME 87 fL (80-99); MEAN PLATELET VOLUME 9.4 fL (9.0-12.2); MONOCYTES # (AUTO) 0.6 10^3/uL (0.0-1.0); MONOCYTES % (AUTO) 8 % (0-12); NEUTROPHILS # (AUTO) 3.9 10^3/uL (1.8-7.8); NEUTROPHILS % (AUTO) 58 % (42-75); PLATELET COUNT 274 10^3/uL (130-400); WHITE BLOOD COUNT 6.7 10^3/uL (4.3-11.0)
[2019-11-13 05:39] LABS: CHLORIDE 104 MMOL/L (98-107); SODIUM 136 MMOL/L (135-145)
[2019-11-13 05:41] LABS: CALCIUM 8.3 MG/DL (8.5-10.1); GLUCOSE 242 MG/DL (70-105)
[2019-11-13 05:43] LABS: CARBON DIOXIDE 21 MMOL/L (21-32)
[2019-11-13 05:45] LABS: GFR ESTIMATED > 60; PHOSPHORUS 2.6 MG/DL (2.3-4.7)
[2019-11-13 05:46] LABS: BUN/CREATININE RATIO 7
[2019-11-13 05:47] LABS: MAGNESIUM 1.7 MG/DL (1.6-2.4)
[2019-11-13] MEDS: KCL 20 MEQ TAB (K-DUR) PO SCH (06:00)
[2019-11-13] MEDS: POTASSIUM CL 10MEQ/50ML IVPB 50 ML IV SCH (06:00)
[2019-11-13] MEDS: MAGNESIUM 1 GM/100 ML IVPB 100 ML IV SCH ×3 (06:02→08:16)
[2019-11-13] MEDS: inSUlin ASPART (NovoLOG) 1 UNIT/0.01 ML (CHARGE PER UNIT) SC SCH (06:10)
[2019-11-13] MEDS ORDERED: MULTIVIT W/MINERALS TAB (THERAGRAN M) PO SCH (07:00)
[2019-11-13] MEDS: SENNA W/DOCUSATE (SENOKOT S) TABLET PO SCH (07:57)
[2019-11-13 08:00] VITALS: BP 186/97
[2019-11-13] MEDS ORDERED: OMEGA 3 (FISH OIL) 1000 MG CAP PO SCH (08:00)
[2019-11-13] MEDS: ONDANSETRON 4 MG/2 ML (SDV) Z0FRAN IVP PRN (08:16)
[2019-11-13] MEDS: meTOprolol TARTRATE 50 MG (LOPRESSOR) TAB PO SCH (08:17)
[2019-11-13] MEDS: ENOXAPARIN 40 MG/0.4 ML (LOVENOX) SYR SC SCH (08:18)
[2019-11-13] MEDS: JANUMET PO SCH (08:18)
--- NOTE | 2019-11-13 08:22 | Pulmonary Progress Note ---
Subjective Date Seen by a Provider: Nov 13, 2019 Time Seen by a Provider: 08:20 Subjective/Events-last exam NO complications noted. Sepsis Event Evaluation Height, Weight, BMI Height: 5'9.00" Weight: 247lbs. 7.0oz. [id number]; 36.96 BMI Method:Stated Focused Exam Lactate Level 11/10/19 19:00: Lactic Acid Level 2.29*H 11/11/19 01:22: Lactic Acid Level 1.50 Exam Exam Vital Signs Date Time Temp Pulse Resp B/P (MAP) Pulse Ox O2 Delivery O2 Flow Rate FiO2 11/13/19 08:00 36.1 94 18 186/97 (126) 94 Room Air 11/13/19 07:08 Room Air 11/13/19 07:00 75 11/13/19 04:38 36.2 70 20 125/68 (87) 95 Nasal Cannula 2.00 11/13/19 01:00 71 11/13/19 00:00 36.3 77 20 147/70 (95) 94 Nasal Cannula 2.00 11/12/19 20:00 37.0 102 18 187/94 (125) 95 Nasal Cannula 2.00 11/12/19 19:30 Nasal Cannula 2.00 11/12/19 19:00 87 11/12/19 16:00 36.8 94 20 190/91 (124) 96 Room Air 11/12/19 15:37 36.8 11/12/19 13:25 96 11/12/19 12:00 35.8 101 20 177/92 (120) 96 Room Air I & O 11/13/19 07:00 Intake Total 2960 ml Balance 2960 ml Height & Weight Height: 5'9.00" Weight: 247lbs. 7.0oz. 112.834652gl; 36.96 BMI Method:Stated General Appearance: No Apparent Distress, WD/WN, Chronically ill HEENT: PERRL/EOMI, Normal ENT Inspection, Pharynx Normal, Moist Mucous Membranes Neck: Full Range of Motion, Normal Inspection, Non Tender Respiratory: Chest Non Tender, Lungs Clear, Normal Breath Sounds, No Accessory Muscle Use, No Respiratory Distress Cardiovascular: Regular Rate, Rhythm, No Edema, No Gallop, No JVD, No Murmur, Normal Peripheral Pulses Capillary Refill: Less Than 3 Seconds Extremity: Normal Capillary Refill, Normal Inspection, Normal Range of Motion, Non Tender, No Calf Tenderness, No Pedal Edema Neurologic/Psychiatric: Alert, Oriented x3, No Motor/Sensory Deficits, Normal Mood/Affect Skin: Normal Color, Warm/Dry Lymphatic: No Adenopathy Results Lab Laboratory Tests 11/11/19 21:35 11/12/19 04:58 11/13/19 05:20 Assessment/Plan Assessment/Plan DM - uncontrolled home Levemier -IVF - Change to LR at 50 -COVID pending Lung nodule -Will need repeat CT scan of chest in 6mo Lactic acidosis secondary to dehydration -IVF Hypokalemia -replace I am going to sign off please call with any questions or concerns. GIULIANA WARNER DO Nov 13, 2019 08:22
[2019-11-13] MEDS ORDERED: GLIMEPIRIDE 1 MG (AMARYL) TAB PO SCH (09:00)
[2019-11-13] MEDS ORDERED: FUROSEMIDE 40 MG (LASIX) TAB PO SCH (09:00)
[2019-11-13] MEDS ORDERED: CLOPIDOGREL 75 MG (PLAVIX) TABLET PO SCH (09:00)
[2019-11-13] MEDS ORDERED: amLODIPine 10 MG (NORVASC) TAB PO SCH (09:00)
[2019-11-13] MEDS ORDERED: LOSARTAN 100 MG (COZAAR) TABLET PO SCH (09:00)
[2019-11-13] MEDS ORDERED: ONDA8TAB13 PO (11:26)
[2019-11-13] MEDS ORDERED: POTA10TA36 PO (11:26)
[2019-11-13] MEDS ORDERED: PROM25TA14 PO (11:26)
--- NOTE | 2019-11-13 11:26 | Discharge Summary ---
Discharge Summary Hospital Course Was the Problem List Reviewed?: Yes Problems/Dx: (1) Lactic acidosis Status: Acute (2) Mild dehydration Status: Acute (3) Nausea & vomiting Status: Acute (4) Diabetes mellitus, insulin dependent (IDDM), uncontrolled Status: Acute (5) Person under investigation for COVID-19 Status: Acute Hospital Course Date of Admission: Nov 10, 2019 at 22:09 Admission Diagnosis : Family Physician/Provider: Socrates Hurtado MD Date of Discharge: 11/13/19 Discharge Diagnosis: severe hyperglycemia, N/V, hypokalemia Hospital Course: see course by Nicolás Marie on bridge note Verification and Attestation of Medical Student E/M Service A medical student performed and documented this service in my presence. I reviewed and verified all information documented by the medical student and made modifications to such information, when appropriate. I personally performed the physical exam and medical decision making. Shereen Castro Matilda, Nov 14, 2019,06:16 Labs and Pending Lab Test: Laboratory Tests 11/12/19 16:10: Glucometer 265H 11/12/19 20:15: Glucometer 271H 11/13/19 05:20: White Blood Count 6.7, Red Blood Count 4.19L, Hemoglobin 12.2L, Hematocrit 37L, Mean Corpuscular Volume 87, Mean Corpuscular Hemoglobin 29, Mean Corpuscular Hemoglobin Concent 33, Red Cell Distribution Width 13.5, Platelet Count 274, Mean Platelet Volume 9.4, Immature Granulocyte % (Auto) 0, Neutrophils (%) (Auto) 58, Lymphocytes (%) (Auto) 26, Monocytes (%) (Auto) 8, Eosinophils (%) (Auto) 7, Basophils (%) (Auto) 1, Neutrophils # (Auto) 3.9, Lymphocytes # (Auto) 1.8, Monocytes # (Auto) 0.6, Eosinophils # (Auto) 0.4H, Basophils # (Auto) 0.0, Immature Granulocyte # (Auto) 0.0, Sodium Level 136, Potassium Level 4.0, Chloride Level 104, Carbon Dioxide Level 21, Anion Gap 11, Blood Urea Nitrogen 7, Creatinine 1.00, Estimat Glomerular Filtration Rate > 60, BUN/Creatinine Ratio 7, Glucose Level 242H, Calcium Level 8.3L, Phosphorus Level 2.6, Magnesium Level 1.7 11/13/19 05:25: Glucometer 226H Microbiology 11/11/19 MRSA Screen - Final, Complete MRSA not isolated 11/10/19 Blood Culture - Preliminary, Resulted No growth Home Meds Active Promethazine Tablet (Promethazine HCl) 25 Mg Tablet 25 Mg PO Q6H PRN Ondansetron Odt (Ondansetron) 8 Mg Tab.rapdis 8 Mg PO Q6H Potassium Chloride 10 Meq Tab.er.prt 10 Meq PO DAILY Reported Duloxetine HCl 60 Mg Capsule.dr 60 Mg PO 1700 Metoprolol Tartrate 50 Mg Tablet 50 Mg PO BID Losartan Potassium 100 Mg Tablet 100 Mg PO DAILY Levemir Flextouch (Insulin Detemir) 100 Unit/1 Ml Insuln.pen 15 Unit SQ HS Centravites 50 Plus (Multivitamin W/Iron, Minerals) 1 Each Tablet 1 Each PO DAILY Acetaminophen Extra Strength (Acetaminophen) 500 Mg Tablet 1,500 Mg PO HS MDD 1500 TAKES 3 (500MG) TABS Amaryl (Glimepiride) 1 Mg Tab 1 Mg PO DAILY Lasix (Furosemide) 40 Mg Tablet 40 Mg PO DAILY Lipitor (Atorvastatin Calcium) 40 Mg Tablet 40 Mg PO HS Amlodipine Besylate 10 Mg Tablet 10 Mg PO DAILY [place] 3 1,000 mg Softgel ([place]-3 Fatty Acids/Fish Oil) 1 Each Capsule 1 Each PO DAILY Janumet 50-1,000 mg Tablet (Sitagliptin Phos/Metformin HCl) 1 Each Tablet 1 Each PO BID Plavix (Clopidogrel Bisulfate) 75 Mg Tablet 75 Mg PO DAILY Assessment/Pt Instructions [facility] 1 week Discharge Planning: <30 minutes discharge planning Discharge Instructions Discharge Diet: No Restrictions Discharge Physical Examination Vital Signs Vital Signs Date Time Temp Pulse Resp B/P (MAP) Pulse Ox O2 Delivery O2 Flow Rate FiO2 11/13/19 08:00 Room Air 11/13/19 08:00 36.1 94 18 186/97 (126) 94 11/13/19 04:38 2.00 11/11/19 02:55 21 General Appearance: No Apparent Distress, WD/WN Allergies: Coded Allergies: aspirin (Verified Allergy, Severe, 12/10/17) Insulins (Unverified Allergy, Unknown, 06/06/15) Penicillins (Unverified Allergy, Unknown, 07/19/13) Sulfa (Sulfonamide Antibiotics) (Unverified Allergy, Unknown, 07/19/13) lactose (Unverified Allergy, Unknown, 12/10/17) CAUSES GAS lidocaine (Verified Allergy, Unknown, 01/06/16) peanut (Unverified Allergy, Unknown, air closes off, 07/19/13) strawberry (Unverified Allergy, Unknown, airway closes off, 07/19/13) codeine (Unverified Adverse Reaction, Mild, NAUSEA, 02/03/14) Uncoded Allergies: ENVIRONMENTAL (Allergy, Unknown, 07/19/13) raw egg whites (Adverse Reaction, Unknown, upset stomach, 12/09/17) Discharge Summary Date of Admission Nov 10, 2019 at 22:09 Date of Discharge Discharge Date: Nov 13, 2019 Admission Diagnosis Assessment: Refractory nausea and vomiting Severe hyperglycemia COVID swab pending Chronic debility Plan: IV fluids Insulin drip transition to SQ insulin Await COVID swab Needs midline placed Discharge Diagnosis Assessment: Refractory nausea and vomiting Severe hyperglycemia COVID swab pending Chronic debility DM HTN Plan: Home meds Monitor closely (1) Lactic acidosis Status: Acute (2) Mild dehydration Status: Acute (3) Nausea & vomiting Status: Acute (4) Diabetes mellitus, insulin dependent (IDDM), uncontrolled Status: Acute (5) Person under investigation for COVID-19 Status: Acute Clinical Quality Measures DVT/VTE Risk/Contraindication: Risk Factor Score Per Nursin RFS Level Per Nursing on Admit: 3=High SHEREEN DIANA DO Nov 13, 2019 11:26
[2019-11-13 12:00] VITALS: BP 161/83
--- NOTE | 2019-11-13 12:05 | Progress Note ---
DAYANARA POLANCO MED STUDENT 11/13/19 1205: Progress Note Hospital Course 11/09 Patient was admitted to the ED with complaints of nausea/ vomiting since 11/08. Patient further complains of dizziness, headache, fever, and chills that have progressively gotten worse. Lactic acidosis (2.29) and hypokalemia (3.3) seen on labs as well as glucometer reading of 298. Patient was admitted to 4th floor Med/ Surg for further care. 11/10 Patients blood glucose progressively decreased from 337 to 259. Nausea/ vomiting symptoms well controlled. Blood glucose continued to be monitored and addressed. 11/11 Patients blood glucose readings remain elevated in the mid 200s without nausea or vomiting. PT/ OT provided care. Blood glucose continued to be monitored and addressed. 11/12 Patients blood glucose remains elevated at 226 and complains of episodes of nausea with retching. Patient is stable and able to be discharged. SHEREEN DIANA DO 11/13/19 1350: Supervisory-Addendum Brief Verification & Attestation Participated in pt care: history, MDM, physical Personally performed: exam, history, MDM, supervision of care Care discussed with: Medical Student Procedures: n/a Results interpretation: Verified all documentation Verification and Attestation of Medical Student E/M Service A medical student performed and documented this service in my presence. I reviewed and verified all information documented by the medical student and made modifications to such information, when appropriate. I personally performed the physical exam and medical decision making. Shereen Diana, Nov 13, 2019,13:50 DAYANARA POLANCO MED STUDENT Nov 13, 2019 12:05 SHEREEN DIANA DO Nov 13, 2019 13:50
== END 2019-11-13 13:15 | disposition home or self-care (01) | DRG 638 ==
LOC: EDUNIT# 18:14 → ER 18:17 → ICU 22:09 → 4TH 11-11 15:35
PROVIDERS: ADMIT Internal Medicine; ATTEND Internal Medicine
DX: E11.65 Type 2 diabetes mellitus with hyperglycemia (principal); E87.2 Acidosis; R91.1 Solitary pulmonary nodule; E86.0 Dehydration; E87.6 Hypokalemia; Z20.828 Contact with and (suspected) exposure to other viral communicable diseases; Z88.0 Allergy status to penicillin; Z88.2 Allergy status to sulfonamides; Z88.5 Allergy status to narcotic agent; Z91.010 Allergy to peanuts
CPT/HCPCS: 36415; 36600; 71045; 71275; 74177; 76937; 80048; 80053; 80306; 81000; 82010; 82150; 82805; 82962; 83036; 83605; 83615; 83690; 83735; 83874; 83880; 84100; 84145; 84484; 85025; 85379; 85652; 86141; 87040; 87081; 87635; 87804; 93005; 93041

== ENCOUNTER 2020-03-20 17:30 | Inpatient (IN) | payer OTHER ==
[~2020-03-20] VITALS: Ht 175.3 cm; Wt 106.2 kg
[~2020-03-20 17:30] MED LIST changes: +AMLO-251 PO; -AMLO10TA7 PO; +DULO60CA59 PO; +ONDA8TAB13 PO; +POTA10TA36 PO; +PROM25TA14 PO
--- NOTE | 2020-03-20 17:43 | ED General ---
General Stated Complaint: COVID SYMPTOMS Source of Information: Patient Exam Limitations: No Limitations (LORETTA ESQUIVEL) History of Present Illness Date Seen by Provider: Mar 20, 2020 Time Seen by Provider: 17:23 Initial Comments Patient presents the ER by EMS from home with chief complaint for the past several days he has had symptoms of nausea vomiting diarrhea loss of sense of taste and smell as well as a cough. He has had a fever T-max yesterday of 101.5. He has not taken anything or seen anybody for this yet. He says he had influenza back in December 2019 and does not feel like he ever got over it. He feels weak and tired. No known sick contacts as he lives at home just with his cats. He has not been on steroids. He does not take any breathing treatments for his asthma. He does follow with Dr. Soto for CPAP. He has a history of 2 stents in his right heart known to Dr. Ortega and his primary care doctor is Dr. Guerra. He is not having any chest pain. He is diabetic. (LORETTA ESQUIVEL) Allergies and Home Medications Allergies Coded Allergies: aspirin (Verified Allergy, Severe, 12/10/17) Penicillins (Unverified Allergy, Unknown, 07/19/13) Sulfa (Sulfonamide Antibiotics) (Unverified Allergy, Unknown, 07/19/13) lactose (Unverified Allergy, Unknown, 12/10/17) CAUSES GAS lidocaine (Verified Allergy, Unknown, 01/06/16) peanut (Unverified Allergy, Unknown, air closes off, 07/19/13) strawberry (Unverified Allergy, Unknown, airway closes off, 07/19/13) codeine (Unverified Adverse Reaction, Mild, NAUSEA, 02/03/14) Uncoded Allergies: ENVIRONMENTAL (Allergy, Unknown, 07/19/13) raw egg whites (Adverse Reaction, Unknown, upset stomach, 12/09/17) Home Medications Acetaminophen 500 Mg Tablet, 1,500 MG PO HS, (Reported) TAKES 3 (500MG) TABS Amlodipine Besylate 10 Mg Tablet, 10 MG PO DAILY, (Reported) Atorvastatin Calcium 40 Mg Tablet, 40 MG PO HS, (Reported) Clopidogrel Bisulfate 75 Mg Tablet, 75 MG PO DAILY, (Reported) Duloxetine HCl 60 Mg Capsule.dr, 60 MG PO 1700, (Reported) Furosemide 40 Mg Tablet, 40 MG PO DAILY, (Reported) Glimepiride 1 Mg Tab, 1 MG PO DAILY, (Reported) Insulin Detemir 100 Unit/1 Ml Insuln.pen, 15 UNIT SQ HS, (Reported) Losartan Potassium 100 Mg Tablet, 100 MG PO DAILY, (Reported) Metoprolol Tartrate 50 Mg Tablet, 50 MG PO BID, (Reported) Multivitamin W/Iron, Minerals 1 Each Tablet, 1 EACH PO DAILY, (Reported) [place]-3 Fatty Acids/Fish Oil 1 Each Capsule, 1 EACH PO DAILY, (Reported) Ondansetron 8 Mg Tab.rapdis, 8 MG PO Q6H Prescribed by: DEIRDRE DIANA on 11/13/19 112 Potassium Chloride 10 Meq Tab.er.prt, 10 MEQ PO DAILY Prescribed by: DEIRDRE DIANA on 11/13/19 112 Promethazine HCl 25 Mg Tablet, 25 MG PO Q6H PRN for NAUSEA/VOMITING Prescribed by: DEIRDRE DIANA on 11/13/19 112 Sitagliptin Phos/Metformin HCl 1 Each Tablet, 1 EACH PO BID, (Reported) Patient Home Medication List Home Medication List Reviewed: Yes (LORETTA ESQUIVEL) Review of Systems Review of Systems Constitutional: chills, fever, malaise, weakness EENTM: No ear discharge, No ear pain Respiratory: cough, phlegm, short of breath; No wheezing Cardiovascular: No chest pain, No edema Gastrointestinal: No abdominal pain, No constipation; diarrhea, nausea, vomiting Genitourinary: No discharge, No dysuria Musculoskeletal: No back pain, No joint pain Psychiatric/Neurological: Denies Anxiety, Denies Depressed (LORETTA ESQUIVEL) All Other Systems Reviewed Negative Unless Noted: Yes (LORETTA ESQUIVEL) Past Rrwrstf-Cjcnsi-Idfiyn Hx Patient Social History Alcohol Use: Denies Use Alcohol Beverage of Choice: Wine Smoking Status: Never a Smoker 2nd Hand Smoke Exposure: Yes (PARENTS SMOKED) Recent Hopitalizations: No (LORETTA ESQUIVEL) Immunizations Up To Date Tetanus Booster (TDap): Unknown Date of Pneumonia Vaccine: Aug 18, 2013 (LORETTA ESQUIVEL) Seasonal Allergies Seasonal Allergies: Yes (LORETTA ESQUIVEL) Past Medical History Surgeries: Yes (CARPAL TUNNEL RELASE SX, LEFT HAND SURGERY, L FOOT, EGD/COLONOSCOPY) Cardiac, Coronary Stent, Gallbladder, Orthopedic, Tonsillectomy Respiratory: Yes (RLL PUL. NODULE--FOLLOWED EVERY 6 MONTHS;INTUBATED 2018/PULM EDEMA/ARF ) Asthma, Sleep Apnea Currently Using CPAP: Yes Cardiac: Yes (CAD--STENTS X 2; MR/TR) Coronary Artery Disease, High Cholesterol, Hypertension, Irregular Heartbeat, Valvular Heart Disease Neurological: Yes Neuropathy Reproductive Disorders: No Sexually Transmitted Disease: No Genitourinary: No Gastrointestinal: Yes Gastroesophageal Reflux, Polyps, Hiatal Hernia, Ulcer Musculoskeletal: Yes (BILAT CARPAL TUNNEL SURG;L HAND SURG; L FOOT SURG) Arthritis Endocrine: No Diabetes, Insulin dep HEENT: No Loss of Vision: Denies Hearing Impairment: Denies Cancer: No Psychosocial: Yes Anxiety Integumentary: Yes Psoriasis Blood Disorders: No Adverse Reaction/Blood Tranf: No (LORETTA ESQUIVEL) Family Medical History Congestive heart failure 19 MOTHER Family history: Arthritis 19 FATHER 19 MOTHER Family history: Cardiovascular disease 19 FATHER 19 MOTHER Family history: Diabetes mellitus 19 FATHER Family history: Glaucoma 19 MOTHER Family history: Hypertension 19 FATHER 19 MOTHER Family history: Osteoporosis 19 MOTHER Hearing loss 19 MOTHER Heart disease 19 FATHER 19 MOTHER Myocardial infarction 19 FATHER 19 MOTHER (DBL BYPASS) Stroke 19 MOTHER (MICRO STROKES) No Family History of: Abdominal aortic aneurysm [place]'s disease Alcoholism Aphasia Cancer Cancer of colon Cataract Chest pain Congenital heart disease Cystic fibrosis Dementia Dysphagia Family history: Allergy Family history: Alzheimer's disease Family history: Asthma Family history: Breast disease Family history: Coronary thrombosis Family history: Gastrointestinal disease Family history: Thyroid disorder Headache Hereditary disease History of - anemia History of - disorder History of - respiratory disease History of drug abuse Human immunodeficiency virus (HIV) seropositivity Hypercholesterolemia Infertile Kidney disease Malignant neoplasm of lung Parkinson's disease Prostate cancer Psychotic disorder Seizure disorder Tuberculosis Visual impairment Heart Disease, Diabetes, Hypertension PAST SURGICAL HISTORY: -CARDIAC CATHS--STENTS X 2 IN 2018. LAST CATH 02/04/19--NO INTERVENTION. HAD PATENT STENT TO LEFT CIRCUMFLEX, WITH COMPLETE OCCLUSION OF LEFT PDA; PATENT STENT TO RCA; MILD DISEASE IN OTHER VESSELS -APPENDECTOMY -EGD'S AND COLONOSCOPIES WITH POLYPECTOMY -BILATERAL CARPAL TUNNEL SURGERY -LEFT HAND SURGERY -LEFT FOOT SURGERY (LORETTA ESQUIVEL) Physical Exam-Suspected Sepsis Physical Exam Vital Signs Vital Signs - First Documented 03/20/20 17:30 Temp 36.9 Pulse 105 Resp 20 B/P (MAP) 150/99 (116) Pulse Ox 100 O2 Delivery Room Air (BREONNA JUNIOR APRN) Vital Signs Capillary Refill : (LORETTA ESQUIVEL) Height, Weight, BMI Height: 5'9.00" Weight: 247lbs. 7.0oz. 112.151507ao; 36.96 BMI Method:Stated General Appearance: No Apparent Distress, Obese Eyes: Bilateral Eye Normal Inspection, Bilateral Eye PERRL, Bilateral Eye EOMI HEENT: PERRL/EOMI, TMs Normal, Normal ENT Inspection, Pharynx Normal; No Moist Mucous Membranes (Mildly dry) Neck: Full Range of Motion, Normal Inspection Respiratory: Lungs Clear, Normal Breath Sounds, No Accessory Muscle Use, No Respiratory Distress Cardiovascular: Regular Rate, Rhythm, No Edema, No Murmur, Normal Peripheral Pulses Gastrointestinal: Normal Bowel Sounds, No Organomegaly, No Pulsatile Mass, Non Tender, Soft Extremity: Normal Capillary Refill, Pedal Edema (Trace), Other (Multiple abrasions of various ages from cat scratches on bilateral lower extremities) Neurologic/Psychiatric: Alert, Oriented x3 Skin: normal color, warm/dry, other (Multiple minor abrasions bilateral lower extremities) (LORETTA ESQUIVEL) Focused Exam Lactate Level 03/20/20 17:30: Lactic Acid Level 5.80*H (BREONNA JUNIOR APRN) Lactic Acid Level Laboratory Tests Test 03/20/20 17:30 Lactic Acid Level 5.80 MMOL/L (0.50-2.00) *H (BREONNA JUNIOR APRN) Procedures/Interventions Date of ETT Placement: Dec 06, 2017 Time of ETT Placement: 1349 (LORETTA ESQUIVEL) Progress/Results/Core Measures Suspected Sepsis SIRS Temperature: Pulse: Respiratory Rate: Blood Pressure / Mean: (LORETTA ESQUIVEL) Results/Orders Lab Results Laboratory Tests Test 03/20/20 17:30 03/20/20 17:38 03/20/20 17:51 Range/Units White Blood Count 8.1 4.3-11.0 10^3/uL Red Blood Count 5.21 4.30-5.52 10^6/uL Hemoglobin 15.4 13.3-17.7 g/dL Hematocrit 44 40-54 % Mean Corpuscular Volume 84 80-99 fL Mean Corpuscular Hemoglobin 30 25-34 pg Mean Corpuscular Hemoglobin Concent 35 32-36 g/dL Red Cell Distribution Width 12.4 10.0-14.5 % Platelet Count 355 130-400 10^3/uL Mean Platelet Volume 10.1 9.0-12.2 fL Immature Granulocyte % (Auto) 0 % Neutrophils (%) (Auto) 68 42-75 % Lymphocytes (%) (Auto) 20 12-44 % Monocytes (%) (Auto) 6 0-12 % Eosinophils (%) (Auto) 4 0-10 % Basophils (%) (Auto) 1 0-10 % Neutrophils # (Auto) 5.5 1.8-7.8 10^3/uL Lymphocytes # (Auto) 1.7 1.0-4.0 10^3/uL Monocytes # (Auto) 0.5 0.0-1.0 10^3/uL Eosinophils # (Auto) 0.4 H 0.0-0.3 10^3/uL Basophils # (Auto) 0.1 0.0-0.1 10^3/uL Immature Granulocyte # (Auto) 0.0 0.0-0.1 10^3/uL Prothrombin Time 12.4 12.2-14.7 SEC INR Comment 0.9 0.8-1.4 Activated Partial Thromboplast Time 31 24-35 SEC Sodium Level 134 L 135-145 MMOL/L Potassium Level 2.9 L 3.6-5.0 MMOL/L Chloride Level 94 L 98-107 MMOL/L Carbon Dioxide Level 21 21-32 MMOL/L Anion Gap 19 H 5-14 MMOL/L Blood Urea Nitrogen 7 7-18 MG/DL Creatinine 1.24 0.60-1.30 MG/DL Estimat Glomerular Filtration Rate 60 BUN/Creatinine Ratio 6 Glucose Level 522 *H 70-105 MG/DL Lactic Acid Level 5.80 *H 0.50-2.00 MMOL/L Calcium Level 8.9 8.5-10.1 MG/DL Corrected Calcium 9.1 8.5-10.1 MG/DL Magnesium Level 1.4 L 1.6-2.4 MG/DL Total Bilirubin 1.0 0.1-1.0 MG/DL Aspartate Amino Transf (AST/SGOT) 25 5-34 U/L Alanine Aminotransferase (ALT/SGPT) 30 0-55 U/L Alkaline Phosphatase 84 40-136 U/L Total Protein 7.1 6.4-8.2 GM/DL Albumin 3.8 3.2-4.5 GM/DL Coronavirus 2019 (AMY) Negative Negative Glucometer 461 *H 70-110 MG/DL (BREONNA JUNIOR APRN) Micro Results Microbiology 03/20/20 Influenza Types A,B Antigen ([place]) - Final, Complete (BREONNA JUNIOR APRN) My Orders Orders - BREONNA JUNIOR APRN Magnesium (03/20/20 18:06) Potassium Chloride (Tablet) (K Dur Table (03/20/20 18:15) Potassium Cl 10meq/50ml Ivpb (Kcl 10 Meq (03/20/20 18:15) Ns Iv 1000 Ml (Sodium Chloride 0.9%) (03/20/20 18:30) (BREONNA JUNIOR APRN) Medications Given in ED Current Medications Medications Dose Ordered Sig/Brissa Route Start Time Stop Time Status Last Admin Dose Admin Potassium Chloride 40 meq ONCE ONCE PO 03/20/20 18:15 03/20/20 18:16 DC 03/20/20 18:28 40 MEQ (BREONNA JUNIOR APRN) Vital Signs/I&O 03/20/20 17:30 Temp 36.9 Pulse 105 Resp 20 B/P (MAP) 150/99 (116) Pulse Ox 100 O2 Delivery Room Air (BREONNA JUNIOR APRN) Vital Signs/I&O Capillary Refill : (LORETTA ESQUIVEL) Progress Note : Time: 17:46 Progress Note He meets sepsis criteria based on a claimed fever and tachycardia 108. He is not having any evidence of asthma attack with good clear open breath sounds. A viral syndrome would explain if he is having a cough, weakness, malaise, fever, nausea vomiting and diarrhea. We have swabbed him for COVID-19 and influenza. Atypical pneumonias are also being considered. A chest x-ray has been ordered. He has multiple cats and diabetes so it may be reasonable to treat him for Bartonella. Bartonella is known to cause mild flulike symptoms such as he is presenting as. Doxycycline traditionally would cover for atypical pneumonias as well as Bartonella. Plus or minus a macrolide for efficacy. Were going to hold off any antibiotics now as if he is having a viral GI bug these would potentially worsen his outcome. Were also going to hold off massive IV fluids as he is not particularly dry and persons under investigation for COVID-19 tend to do better without high doses of IV fluids. He is not having any respiratory distress and is speaking in full, fluent, paragraphs. Care of the patient will be turned over to Breonna Junior, nurse practitioner at shift change. (LORETTA ESQUIVEL) Diagnostic Imaging Diagonstic Imaging: Xray Plain Films/CT/US/NM/MRI: chest Reviewed: Reviewed by Me (LORETTA ESQUIVEL) Departure Impression Primary Impression: Dehydration Additional Impressions: Hyperglycemia Electrolyte abnormality Disposition: ADMITTED INPATIENT Condition: Stable Admissions Decision to Admit Reason: Admit from ER (General) Decision to Admit/Date: Mar 20, 2020 Time/Decision to Admit Time: 19:26 (BREONNA JUNIOR APRN) Departure-Patient Inst. Referrals: KATE CORONADO MD (PCP/Family) Primary Care Physician LORETTA ESQUIVEL Mar 20, 2020 17:43 BREONNA JUNIOR APRN Mar 20, 2020 19:26
[2020-03-20] MEDS ORDERED: NS IV 1000 ML 1,000 ML IV SCH ×3 (17:45→22:15)
[2020-03-20 17:50] LABS: BASOPHILS # (AUTO) 0.1 10^3/uL (0.0-0.1); BASOPHILS % (AUTO) 1 % (0-10); EOSINOPHILS # (AUTO) 0.4 10^3/uL (0.0-0.3); EOSINOPHILS % (AUTO) 4 % (0-10); HEMATOCRIT 44 % (40-54); HEMOGLOBIN 15.4 g/dL (13.3-17.7); LYMPHOCYTES # (AUTO) 1.7 10^3/uL (1.0-4.0); LYMPHOCYTES % (AUTO) 20 % (12-44); MEAN CORPUSCULAR HEMOGLOBIN 30 pg (25-34); MEAN CORPUSCULAR HGB CONC 35 g/dL (32-36); MEAN CORPUSCULAR VOLUME 84 fL (80-99); MEAN PLATELET VOLUME 10.1 fL (9.0-12.2); MONOCYTES # (AUTO) 0.5 10^3/uL (0.0-1.0); MONOCYTES % (AUTO) 6 % (0-12); NEUTROPHILS # (AUTO) 5.5 10^3/uL (1.8-7.8); NEUTROPHILS % (AUTO) 68 % (42-75); PLATELET COUNT 355 10^3/uL (130-400); WHITE BLOOD COUNT 8.1 10^3/uL (4.3-11.0)
[2020-03-20 18:03] LABS: ALBUMIN 3.8 GM/DL (3.2-4.5); POTASSIUM 2.9 MMOL/L (3.6-5.0)
[2020-03-20 18:05] LABS: CALCIUM 8.9 MG/DL (8.5-10.1)
[2020-03-20 18:06] LABS: TOTAL PROTEIN 7.1 GM/DL (6.4-8.2)
--- NOTE | 2020-03-20 18:08 | Diagnostic Imaging Report ---
EXAMINATION: Chest 1 view. HISTORY: Sepsis. COMPARISON: 11/10/2019. FINDINGS: The lung volumes are normal. No focal consolidation is seen. No large pleural effusion or pneumothorax is seen. Stable cardiac silhouette. No acute osseous abnormality is seen. IMPRESSION: No acute pleuroparenchymal process. Dictated by: Dictated on workstation # [id number]
[2020-03-20 18:09] LABS: CREATININE SERUM 1.24 MG/DL (0.60-1.30); INR 0.9 (0.8-1.4); PROTHROMBIN TIME PATIENT 12.4 SEC (12.2-14.7)
[2020-03-20] MEDS ORDERED: KCL 20 MEQ TAB (K-DUR) PO ONE (18:15)
[2020-03-20] MEDS: POTASSIUM CL 10MEQ/50ML IVPB 50 ML IV SCH ×2 (18:28→19:28)
--- NOTE | 2020-03-20 20:53 | NUR ---
Report given to XOCHITL tian. Care was transferred.
[2020-03-20] MEDS ORDERED: inSUlin (REGULAR) HUMAN 1 UNIT/0.01 ML (CHARGE PER UNIT) SC ONE (21:15)
[2020-03-20] MEDS ORDERED: ONDANSETRON 4 MG/2 ML (SDV) Z0FRAN ONE (21:37)
[2020-03-20] MEDS ORDERED: ONDANSETRON 4 MG/2 ML (SDV) Z0FRAN IVP ONE (21:45)
--- NOTE | 2020-03-20 21:48 | NUR ---
DAREN BARRIOS JR admitted to room CU5-1, with an admitting diagnosis of Hypokalemia, weakness, dehydration, on 03/20/20 from ED via stretcher, accompanied by staff.DAREN BARRIOS JR introduced to surroundings, call light, bed controls, phone, TV, temperature control, lights, meal times, smoking policy, visitor policy, side rail policy, bathrooms and showers. Patient Rights given to patient in the handbook. DAREN BARRIOS JR verbalizes understanding that [facility] is not responsible for the loss or damage to any personal effects or valuables that are kept in the patients possession during their hospitalization. The following Patient Care Plans were discussed with the patient: Discharge Planning, diet,exercise, and pain. DAREN BARRIOS JR verbalizes understanding of Interdisciplinary Patient Education. Patient and/or family were informed about the Rapid Response Team and its purpose.
[2020-03-20] MEDS ORDERED: LOPERAMIDE 2 MG (IMODIUM) TABLET PO PRN (22:15)
[2020-03-20] MEDS ORDERED: ONDANSETRON 4 MG/2 ML (SDV) Z0FRAN IVP PRN (22:15)
[2020-03-20] MEDS ORDERED: ENOXAPARIN 40 MG/0.4 ML (LOVENOX) SYR ONE (22:27)
[2020-03-20] MEDS: ENOXAPARIN 40 MG/0.4 ML (LOVENOX) SYR SC SCH (22:50)
[2020-03-20] MEDS: POTASSIUM CL 10 MEQ/50 ML IVPB (PRE-MIX) IV SCH ×2 (22:50→23:21)
[2020-03-20] MEDS: MAGNESIUM 1 GM/100 ML IVPB IV SCH ×2 (22:50→23:21)
[2020-03-20 23:30] LABS: BILIRUBIN,URINE NEGATIVE (NEGATIVE); CLARITY,URINE SL CLOUDY; COLOR,URINE YELLOW; GLUCOSE, URINE (UA) 3+ (NEGATIVE); KETONES,URINE NEGATIVE (NEGATIVE); LEUKOCYTE ESTERASE ,URINE NEGATIVE (NEGATIVE); NITRITE,URINE NEGATIVE (NEGATIVE); PROTEIN,URINE 2+ (NEGATIVE)
--- NOTE | 2020-03-20 23:43 | NUR ---
Call to E ICU at this time to report Lactic acid and current blood sugar. Updated E ICU Dr on medications given, IVF received and current infusion of KCL and Mag. No antibiotics received in ED. Order for Tylenol and 1/2 home dose Levemir 7.5 units.
[2020-03-20 23:48] LABS: BACTERIA,URINE MODERATE /HPF; SQUAMOUS EPITHELIAL CELL,UR 0-2 /HPF; YEAST,URINE FEW /HPF
[2020-03-21] MEDS ORDERED: ACETAMINOPHEN 500 MG TAB (TYLENOL) PO ONE
[2020-03-21] MEDS: POTASSIUM CL 10 MEQ/50 ML IVPB (PRE-MIX) IV SCH ×2 (00:08→01:02)
[2020-03-21] MEDS: MAGNESIUM 1 GM/100 ML IVPB IV SCH ×2 (00:08→01:02)
[2020-03-21 03:23] LABS: BASOPHILS # (AUTO) 0.1 10^3/uL (0.0-0.1); BASOPHILS % (AUTO) 1 % (0-10); EOSINOPHILS # (AUTO) 0.3 10^3/uL (0.0-0.3); EOSINOPHILS % (AUTO) 4 % (0-10); HEMATOCRIT 38 % (40-54); HEMOGLOBIN 13.3 g/dL (13.3-17.7); LYMPHOCYTES # (AUTO) 2.5 10^3/uL (1.0-4.0); LYMPHOCYTES % (AUTO) 30 % (12-44); MEAN CORPUSCULAR HEMOGLOBIN 30 pg (25-34); MEAN CORPUSCULAR HGB CONC 35 g/dL (32-36); MEAN CORPUSCULAR VOLUME 85 fL (80-99); MEAN PLATELET VOLUME 9.8 fL (9.0-12.2); MONOCYTES # (AUTO) 0.6 10^3/uL (0.0-1.0); MONOCYTES % (AUTO) 8 % (0-12); NEUTROPHILS # (AUTO) 4.8 10^3/uL (1.8-7.8); NEUTROPHILS % (AUTO) 57 % (42-75); PLATELET COUNT 278 10^3/uL (130-400); WHITE BLOOD COUNT 8.3 10^3/uL (4.3-11.0)
[2020-03-21 03:47] LABS: ALBUMIN 3.2 GM/DL (3.2-4.5); CHLORIDE 103 MMOL/L (98-107); POTASSIUM 3.2 MMOL/L (3.6-5.0); SODIUM 137 MMOL/L (135-145)
[2020-03-21 03:49] LABS: CALCIUM 7.9 MG/DL (8.5-10.1)
[2020-03-21 03:50] LABS: GLUCOSE 329 MG/DL (70-105); TOTAL PROTEIN 6.1 GM/DL (6.4-8.2)
[2020-03-21 03:51] LABS: CARBON DIOXIDE 23 MMOL/L (21-32)
[2020-03-21 03:52] LABS: BILIRUBIN,TOTAL 0.6 MG/DL (0.1-1.0)
[2020-03-21 03:53] LABS: ALKALINE PHOSPHATASE 75 U/L (40-136)
[2020-03-21 03:54] LABS: CREATININE SERUM 0.98 MG/DL (0.60-1.30); GFR ESTIMATED > 60
[2020-03-21 03:55] LABS: BUN/CREATININE RATIO 7
[2020-03-21 03:56] LABS: ALANINE AMINOTRANSFERASE 23 U/L (0-55); MAGNESIUM 2.7 MG/DL (1.6-2.4)
[2020-03-21] MEDS: KCL 20 MEQ TAB (K-DUR) PO SCH ×2 (04:16→04:18)
[2020-03-21] MEDS: inSUlin ASPART (NovoLOG) 1 UNIT/0.01 ML (CHARGE PER UNIT) SC SCH ×4 (05:20→20:56)
--- NOTE | 2020-03-21 05:48 | Pulmonary Consultation ---
History of Present Illness History of Present Illness Date Seen by Provider: Mar 21, 2020 Time Seen by Provider: 05:41 Date of Admission Allergies and Home Medications Allergies Coded Allergies: aspirin (Verified Allergy, Severe, 12/10/17) Penicillins (Unverified Allergy, Unknown, 07/19/13) Sulfa (Sulfonamide Antibiotics) (Unverified Allergy, Unknown, 07/19/13) lactose (Unverified Allergy, Unknown, 12/10/17) CAUSES GAS lidocaine (Verified Allergy, Unknown, 01/06/16) peanut (Unverified Allergy, Unknown, air closes off, 07/19/13) strawberry (Unverified Allergy, Unknown, airway closes off, 07/19/13) codeine (Unverified Adverse Reaction, Mild, NAUSEA, 02/03/14) Uncoded Allergies: ENVIRONMENTAL (Allergy, Unknown, 07/19/13) raw egg whites (Adverse Reaction, Unknown, upset stomach, 12/09/17) Home Medications Acetaminophen 500 Mg Tablet, 1,500 MG PO HS, (Reported) TAKES 3 (500MG) TABS Amlodipine Besylate 10 Mg Tablet, 10 MG PO DAILY, (Reported) Atorvastatin Calcium 40 Mg Tablet, 40 MG PO HS, (Reported) Clopidogrel Bisulfate 75 Mg Tablet, 75 MG PO DAILY, (Reported) Duloxetine HCl 60 Mg Capsule.dr, 60 MG PO BID, (Reported) Furosemide 40 Mg Tablet, 40 MG PO DAILY, (Reported) Glimepiride 1 Mg Tab, 1 MG PO DAILY, (Reported) Insulin Detemir 100 Unit/1 Ml Insuln.pen, 15 UNIT SQ HS, (Reported) Losartan Potassium 100 Mg Tablet, 100 MG PO DAILY, (Reported) Metoprolol Tartrate 50 Mg Tablet, 50 MG PO BID, (Reported) Multivitamin W/Iron, Minerals 1 Each Tablet, 1 EACH PO DAILY, (Reported) [place]-3 Fatty Acids/Fish Oil 1 Each Capsule, 1 EACH PO DAILY, (Reported) Ondansetron 8 Mg Tab.rapdis, 8 MG PO Q6H Prescribed by: DEIRDRE DIANA on 11/13/19 112 Potassium Chloride 10 Meq Tab.er.prt, 10 MEQ PO DAILY Prescribed by: DEIRDRE DIANA on 11/13/19 1126 Promethazine HCl 25 Mg Tablet, 25 MG PO Q6H PRN for NAUSEA/VOMITING Prescribed by: DEIRDRE DIANA on 11/13/19 1126 Sitagliptin Phos/Metformin HCl 1 Each Tablet, 1 EACH PO BID, (Reported) Past Wdjshea-Otvhty-Tmlwie Hx Patient Social History Alcohol Use: Denies Use Number of Drinks Today: Alcohol Beverage of Choice: Wine Smoking Status: Never a Smoker 2nd Hand Smoke Exposure: Yes (PARENTS SMOKED) Recent Infectious Disease Expo: No Recent Hopitalizations: No Alcohol Use?: Yes Immunizations Up To Date Tetanus Booster (TDap): Unknown Date of Pneumonia Vaccine: Aug 18, 2013 Seasonal Allergies Seasonal Allergies: Yes Past Medical History Surgeries: Yes (CARPAL TUNNEL RELASE SX, LEFT HAND SURGERY, L FOOT, EGD/COLONOSCOPY) Cardiac, Coronary Stent, Gallbladder, Orthopedic, Tonsillectomy Respiratory: Yes (RLL PUL. NODULE--FOLLOWED EVERY 6 MONTHS;INTUBATED 2017/PULM EDEMA/ARF ) Asthma, Sleep Apnea Currently Using CPAP: Yes Currently Using BIPAP: Yes Cardiac: Yes (CAD--STENTS X 2; MR/TR) Coronary Artery Disease, High Cholesterol, Hypertension, Irregular Heartbeat, Valvular Heart Disease Neurological: Yes Neuropathy Reproductive Disorders: No Sexually Transmitted Disease: No Genitourinary: No Gastrointestinal: Yes Gastroesophageal Reflux, Polyps, Hiatal Hernia, Ulcer Musculoskeletal: Yes (BILAT CARPAL TUNNEL SURG;L HAND SURG; L FOOT SURG) Arthritis Endocrine: No Diabetes, Insulin dep HEENT: No Loss of Vision: Denies Hearing Impairment: Denies Cancer: No Psychosocial: Yes Anxiety Integumentary: Yes Psoriasis Blood Disorders: No Adverse Reaction/Blood Tranf: No Family Medical History Congestive heart failure 19 MOTHER Family history: Arthritis 19 FATHER 19 MOTHER Family history: Cardiovascular disease 19 FATHER 19 MOTHER Family history: Diabetes mellitus 19 FATHER Family history: Glaucoma 19 MOTHER Family history: Hypertension 19 FATHER 19 MOTHER Family history: Osteoporosis 19 MOTHER Hearing loss 19 MOTHER Heart disease 19 FATHER 19 MOTHER Myocardial infarction 19 FATHER 19 MOTHER (DBL BYPASS) Stroke 19 MOTHER (MICRO STROKES) No Family History of: Abdominal aortic aneurysm Sony's disease Alcoholism Aphasia Cancer Cancer of colon Cataract Chest pain Congenital heart disease Cystic fibrosis Dementia Dysphagia Family history: Allergy Family history: Alzheimer's disease Family history: Asthma Family history: Breast disease Family history: Coronary thrombosis Family history: Gastrointestinal disease Family history: Thyroid disorder Headache Hereditary disease History of - anemia History of - disorder History of - respiratory disease History of drug abuse Human immunodeficiency virus (HIV) seropositivity Hypercholesterolemia Infertile Kidney disease Malignant neoplasm of lung Parkinson's disease Prostate cancer Psychotic disorder Seizure disorder Tuberculosis Visual impairment Heart Disease, Diabetes, Hypertension PAST SURGICAL HISTORY: -CARDIAC CATHS--STENTS X 2 IN 2018. LAST CATH 02/04/19--NO INTERVENTION. HAD PATENT STENT TO LEFT CIRCUMFLEX, WITH COMPLETE OCCLUSION OF LEFT PDA; PATENT STENT TO RCA; MILD DISEASE IN OTHER VESSELS -APPENDECTOMY -EGD'S AND COLONOSCOPIES WITH POLYPECTOMY -BILATERAL CARPAL TUNNEL SURGERY -LEFT HAND SURGERY -LEFT FOOT SURGERY Review of Systems Time Seen by Provider: 05:45 Sepsis Event Evaluation Height, Weight, BMI Height: 5'9.00" Weight: 247lbs. 7.0oz. 112.539934ne; 34.00 BMI Method:Stated Exam Exam Vital Signs Date Time Temp Pulse Resp B/P (MAP) Pulse Ox O2 Delivery O2 Flow Rate FiO2 03/21/20 04:50 36.6 Nasal Cannula 2.00 03/21/20 04:00 105 9 144/82 (102) 95 Nasal Cannula 2.00 03/21/20 03:00 100 19 163/93 (116) 96 Nasal Cannula 2.00 03/21/20 02:00 104 17 160/85 (110) 96 Nasal Cannula 2.00 03/21/20 01:00 102 03/21/20 01:00 102 21 157/87 (110) 92 Nasal Cannula 2.00 03/21/20 00:00 36.3 95 18 128/83 (98) 100 Room Air 03/20/20 23:15 100 Room Air 03/20/20 23:00 98 18 119/96 (104) 100 Room Air 03/20/20 22:51 89 22 127/87 (100) 100 Room Air 03/20/20 22:30 105 23 130/95 (107) 98 Room Air 03/20/20 22:15 112 36 100 Room Air 03/20/20 22:00 103 22 114/88 (97) 100 Room Air 03/20/20 22:00 103 03/20/20 22:00 100 Room Air 03/20/20 21:54 36.6 101 26 138/110 (119) 99 Room Air 03/20/20 20:40 93 18 132/84 94 Room Air 03/20/20 20:39 93 18 132/84 94 Room Air 03/20/20 17:30 36.9 105 20 150/99 (116) 100 Room Air I & O 03/21/20 07:00 Intake Total 2400 ml Output Total 1285 ml Balance 1115 ml Height & Weight Height: 5'9.00" Weight: 247lbs. 7.0oz. 112.904510iz; 34.00 BMI Method:Stated General Appearance: No Apparent Distress, Obese HEENT: PERRL/EOMI, TMs Normal, Normal ENT Inspection, Pharynx Normal; No Moist Mucous Membranes (Mildly dry) Neck: Full Range of Motion, Normal Inspection Respiratory: Lungs Clear, Normal Breath Sounds, No Accessory Muscle Use, No Respiratory Distress Cardiovascular: Regular Rate, Rhythm, No Edema, No Murmur, Normal Peripheral Pulses Capillary Refill: Less Than 3 Seconds Extremity: Normal Capillary Refill, Pedal Edema (Trace), Other (Multiple abrasions of various ages from cat scratches on bilateral lower extremities) Neurologic/Psychiatric: Alert, Oriented x3 Results Lab Laboratory Tests 03/20/20 17:30 03/21/20 03:00 Assessment/Plan Assessment/Plan Hypoxia -COVID is pending -Influenza is negative Hypokalemia/hypophos -30mm Kphos Metabolic lactic acidosis -IVF -Resolved Diarrhea with Acute dehydration -IVF Nausea/vomiting -IVF GIULIANA WARNER DO Mar 21, 2020 05:48
[2020-03-21 05:56] LABS: AMYLASE 29 U/L (25-125)
[2020-03-21] MEDS ORDERED: MAGNESIUM 1 GM/100 ML IVPB 100 ML IV SCH (06:00)
[2020-03-21] MEDS ORDERED: POTASSIUM CL 10MEQ/50ML IVPB 50 ML IV SCH (06:00)
[2020-03-21] MEDS ORDERED: KCL 20 MEQ TAB (K-DUR) PO ONE ×2 (06:00→08:00)
[2020-03-21] MEDS: LACTATED RINGERS 1,000 ML IV SCH ×3 (06:01→16:24)
[2020-03-21 06:04] LABS: LIPASE 21 U/L (8-78)
--- NOTE | 2020-03-21 07:30 | Diagnostic Imaging Report ---
INDICATION: Hyperglycemia and hypokalemia. Time of exam: 1:20 AM Correlation is made with prior chest from one day earlier. The heart size is normal. The pulmonary vascularity is unremarkable. The lungs are clear. No infiltrate, effusion or pneumothorax is detected. IMPRESSION: No acute cardiopulmonary process is detected. Dictated by: Dictated on workstation # [id number]
[2020-03-21] MEDS ORDERED: POTASSIUM PHOSPHATE INJ 30 MM in NS (IVPB) 250 ML IV ONE (09:00)
[2020-03-21] MEDS ORDERED: POTA10TA36 PO (15:45)
[2020-03-21] MEDS ORDERED: DULO60CA59 PO (15:45)
--- NOTE | 2020-03-21 15:51 | NUR ---
I SPOKE WITH THE PATIENT, WENT THROUGH THE EXTERNAL MED HISTORY AND CALLED [facility] TO COMPLETE THIS MED REC. FILL DATES FROM [facility]: 11/10/19 LEVEMIR 5 PENS 100DS 03/06/20 PLAVIX 75MG #30/30DS 03/06/20 ATORVASTATIN 40MG #30/30DS 03/06/20 METOPROLOL TART 50MG #60/30DS 03/06/20 GLIMEPIRIDE 1MG #30/30DS 03/06/20 JANUMET 50-1000 #60/30DS 03/06/20 AMLODIPINE 10MG #30/30DS 03/06/20 LOSARTAN POT 100MG #30/30DS 03/09/20 POTASSIUM CHLORIDE #30/30DS 03/09/20 DULOXETINE 60MG #60/30DS OTC: TYLENOL FISH OIL
[2020-03-21] MEDS ORDERED: ACETAMINOPHEN 500 MG TAB (TYLENOL) ONE (16:32)
[2020-03-21] MEDS: ACETAMINOPHEN 500 MG TAB (TYLENOL) PO PRN (16:40)
--- NOTE | 2020-03-21 21:06 | History & Physical ---
HPI History of Present Illness: [facility] due to nausea, vomiting, diarrhea, shortness of breath and cough which all started around December and have gotten worse. He noticed an apple tasted very poorly just before he came which made him concerned about COVID as well. Source: patient Date seen by provider: Mar 21, 2020 Time Seen by Provider: 10:05 Attending Physician Reza Paz MD PCP Socrates Hurtado MD Consult Date of Admission Mar 20, 2020 at 18:29 Home Medications Home Medications Reviewed patient Home Medication Reconciliation performed by pharmacy medication reconciliations engine test cell technician and/or nursing. Patients Allergies have been reviewed. Allergies Coded Allergies: aspirin (Verified Allergy, Severe, 12/10/17) egg (Verified Allergy, Intermediate, Vomiting, 03/21/20) Penicillins (Unverified Allergy, Unknown, 07/19/13) Sulfa (Sulfonamide Antibiotics) (Unverified Allergy, Unknown, 07/19/13) lactose (Unverified Allergy, Unknown, 12/10/17) CAUSES GAS lidocaine (Verified Allergy, Unknown, 01/06/16) peanut (Unverified Allergy, Unknown, air closes off, 07/19/13) strawberry (Unverified Allergy, Unknown, airway closes off, 07/19/13) codeine (Unverified Adverse Reaction, Mild, NAUSEA, 02/03/14) Uncoded Allergies: ENVIRONMENTAL (Allergy, Unknown, 07/19/13) raw egg whites (Adverse Reaction, Unknown, upset stomach, 12/09/17) [id number] Hx Patient Social History Smoking Status: Never a Smoker 2nd Hand Smoke Exposure: Yes (PARENTS SMOKED) Recent Hopitalizations: No Alcohol Use?: Yes Immunizations Up To Date Tetanus Booster (TDap): Unknown Date of Pneumonia Vaccine: Aug 18, 2013 Past Medical History PMHx: DMII HTN HLD CAD Family Medical History Significant Family History: Heart Disease, Diabetes, Hypertension Other Significan Family Hx: PAST SURGICAL HISTORY: -CARDIAC CATHS--STENTS X 2 IN 2018. LAST CATH 02/04/19--NO INTERVENTION. HAD PATENT STENT TO LEFT CIRCUMFLEX, WITH COMPLETE OCCLUSION OF LEFT PDA; PATENT STENT TO RCA; MILD DISEASE IN OTHER VESSELS -APPENDECTOMY -EGD'S AND COLONOSCOPIES WITH POLYPECTOMY -BILATERAL CARPAL TUNNEL SURGERY -LEFT HAND SURGERY -LEFT FOOT SURGERY Family History: Congestive heart failure 19 MOTHER Family history: Arthritis 19 FATHER 19 MOTHER Family history: Cardiovascular disease 19 FATHER 19 MOTHER Family history: Diabetes mellitus 19 FATHER Family history: Glaucoma 19 MOTHER Family history: Hypertension 19 FATHER 19 MOTHER Family history: Osteoporosis 19 MOTHER Hearing loss 19 MOTHER Heart disease 19 FATHER 19 MOTHER Myocardial infarction 19 FATHER 19 MOTHER (DBL BYPASS) Stroke 19 MOTHER (MICRO STROKES) No Family History of: Abdominal aortic aneurysm Sony's disease Alcoholism Aphasia Cancer Cancer of colon Cataract Chest pain Congenital heart disease Cystic fibrosis Dementia Dysphagia Family history: Allergy Family history: Alzheimer's disease Family history: Asthma Family history: Breast disease Family history: Coronary thrombosis Family history: Gastrointestinal disease Family history: Thyroid disorder Headache Hereditary disease History of - anemia History of - disorder History of - respiratory disease History of drug abuse Human immunodeficiency virus (HIV) seropositivity Hypercholesterolemia Infertile Kidney disease Malignant neoplasm of lung Parkinson's disease Prostate cancer Psychotic disorder Seizure disorder Tuberculosis Visual impairment Review of Systems (CHC) Constitutional: fever, malaise Respiratory: cough, dyspnea on exertion Cardiovascular: No chest pain Gastrointestinal: No abdominal pain; diarrhea, melena, nausea, vomiting Genitourinary: No dysuria Reviewed Test Results Reviewed Test Results Lab Laboratory Tests Test 03/20/20 17:30 03/20/20 17:38 03/20/20 17:51 03/20/20 19:50 Range/Units White Blood Count 8.1 4.3-11.0 10^3/uL Red Blood Count 5.21 4.30-5.52 10^6/uL Hemoglobin 15.4 13.3-17.7 g/dL Hematocrit 44 40-54 % Mean Corpuscular Volume 84 80-99 fL Mean Corpuscular Hemoglobin 30 25-34 pg Mean Corpuscular Hemoglobin Concent 35 32-36 g/dL Red Cell Distribution Width 12.4 10.0-14.5 % Platelet Count 355 130-400 10^3/uL Mean Platelet Volume 10.1 9.0-12.2 fL Immature Granulocyte % (Auto) 0 % Neutrophils (%) (Auto) 68 42-75 % Lymphocytes (%) (Auto) 20 12-44 % Monocytes (%) (Auto) 6 0-12 % Eosinophils (%) (Auto) 4 0-10 % Basophils (%) (Auto) 1 0-10 % Neutrophils # (Auto) 5.5 1.8-7.8 10^3/uL Lymphocytes # (Auto) 1.7 1.0-4.0 10^3/uL Monocytes # (Auto) 0.5 0.0-1.0 10^3/uL Eosinophils # (Auto) 0.4 H 0.0-0.3 10^3/uL Basophils # (Auto) 0.1 0.0-0.1 10^3/uL Immature Granulocyte # (Auto) 0.0 0.0-0.1 10^3/uL Prothrombin Time 12.4 12.2-14.7 SEC INR Comment 0.9 0.8-1.4 Activated Partial Thromboplast Time 31 24-35 SEC Sodium Level 134 L 135-145 MMOL/L Potassium Level 2.9 L 3.6-5.0 MMOL/L Chloride Level 94 L 98-107 MMOL/L Carbon Dioxide Level 21 21-32 MMOL/L Anion Gap 19 H 5-14 MMOL/L Blood Urea Nitrogen 7 7-18 MG/DL Creatinine 1.24 0.60-1.30 MG/DL Estimat Glomerular Filtration Rate 60 BUN/Creatinine Ratio 6 Glucose Level 522 *H 70-105 MG/DL Lactic Acid Level 5.80 *H 3.63 *H 0.50-2.00 MMOL/L Calcium Level 8.9 8.5-10.1 MG/DL Corrected Calcium 9.1 8.5-10.1 MG/DL Magnesium Level 1.4 L 1.6-2.4 MG/DL Total Bilirubin 1.0 0.1-1.0 MG/DL Aspartate Amino Transf (AST/SGOT) 25 5-34 U/L Alanine Aminotransferase (ALT/SGPT) 30 0-55 U/L Alkaline Phosphatase 84 40-136 U/L Total Protein 7.1 6.4-8.2 GM/DL Albumin 3.8 3.2-4.5 GM/DL Coronavirus (COVID-19)(PCR) Negative Negative Coronavirus 2018 (AMY) Negative Negative Glucometer 461 *H 70-110 MG/DL Test 03/20/20 20:50 03/20/20 22:23 03/20/20 23:16 03/20/20 23:38 Range/Units Glucometer 409 *H 325 H 70-110 MG/DL Lactic Acid Level 3.89 *H 0.50-2.00 MMOL/L Urine Color YELLOW Urine Clarity SL CLOUDY Urine pH 6.0 5-9 Urine Specific [place] 1.010 L 1.016-1.022 Urine Protein 2+ H NEGATIVE Urine Glucose (UA) 3+ H NEGATIVE Urine Ketones NEGATIVE NEGATIVE Urine Nitrite NEGATIVE NEGATIVE Urine Bilirubin NEGATIVE NEGATIVE Urine Urobilinogen 0.2 < = 1.0 MG/DL Urine Leukocyte Esterase NEGATIVE NEGATIVE Urine RBC (Auto) NEGATIVE NEGATIVE Urine RBC NONE /HPF Urine WBC 2-5 /HPF Urine Squamous Epithelial Cells 0-2 /HPF Urine Crystals NONE /LPF Urine Bacteria MODERATE H /HPF Urine Casts NONE /LPF Urine Mucus NEGATIVE /LPF Urine Yeast FEW H /HPF Urine Culture Indicated CULTURE PENDING Test 03/21/20 01:00 03/21/20 03:00 03/21/20 05:16 03/21/20 12:15 Range/Units Lactic Acid Level 1.66 0.50-2.00 MMOL/L White Blood Count 8.3 4.3-11.0 10^3/uL Red Blood Count 4.46 4.30-5.52 10^6/uL Hemoglobin 13.3 13.3-17.7 g/dL Hematocrit 38 L 40-54 % Mean Corpuscular Volume 85 80-99 fL Mean Corpuscular Hemoglobin 30 25-34 pg Mean Corpuscular Hemoglobin Concent 35 32-36 g/dL Red Cell Distribution Width 12.5 10.0-14.5 % Platelet Count 278 130-400 10^3/uL Mean Platelet Volume 9.8 9.0-12.2 fL Immature Granulocyte % (Auto) 0 % Neutrophils (%) (Auto) 57 42-75 % Lymphocytes (%) (Auto) 30 12-44 % Monocytes (%) (Auto) 8 0-12 % Eosinophils (%) (Auto) 4 0-10 % Basophils (%) (Auto) 1 0-10 % Neutrophils # (Auto) 4.8 1.8-7.8 10^3/uL Lymphocytes # (Auto) 2.5 1.0-4.0 10^3/uL Monocytes # (Auto) 0.6 0.0-1.0 10^3/uL Eosinophils # (Auto) 0.3 0.0-0.3 10^3/uL Basophils # (Auto) 0.1 0.0-0.1 10^3/uL Immature Granulocyte # (Auto) 0.0 0.0-0.1 10^3/uL Sodium Level 137 135-145 MMOL/L Potassium Level 3.2 L 3.6-5.0 MMOL/L Chloride Level 103 98-107 MMOL/L Carbon Dioxide Level 23 21-32 MMOL/L Anion Gap 11 5-14 MMOL/L Blood Urea Nitrogen 7 7-18 MG/DL Creatinine 0.98 0.60-1.30 MG/DL Estimat Glomerular Filtration Rate > 60 BUN/Creatinine Ratio 7 Glucose Level 329 H 70-105 MG/DL Calcium Level 7.9 L 8.5-10.1 MG/DL Corrected Calcium 8.5 8.5-10.1 MG/DL Phosphorus Level 2.0 L 2.3-4.7 MG/DL Magnesium Level 2.7 H 1.6-2.4 MG/DL Total Bilirubin 0.6 0.1-1.0 MG/DL Aspartate Amino Transf (AST/SGOT) 22 5-34 U/L Alanine Aminotransferase (ALT/SGPT) 23 0-55 U/L Alkaline Phosphatase 75 40-136 U/L Total Protein 6.1 L 6.4-8.2 GM/DL Albumin 3.2 3.2-4.5 GM/DL Amylase Level 29 25-125 U/L Lipase 21 8-78 U/L Beta-Hydroxybutyrate (Chem panel) 0.14 0.00-0.27 MMOL/L Glucometer 246 H 232 H 70-110 MG/DL Test 03/21/20 15:56 03/21/20 19:44 Range/Units Glucometer 207 H 268 H 70-110 MG/DL Radiology CXR 03/20 no acute abnormalities Physical Exam-(CHC) Physical Exam Vital Signs VS - Last 72 Hours, by Label 03/20/20 03/20/20 03/20/20 03/20/20 17:30 20:39 20:40 21:54 Temp 36.9 36.6 Pulse 105 93 93 101 Resp 20 18 18 26 B/P (MAP) 150/99 (116) 132/84 132/84 138/110 (119) Pulse Ox 100 94 94 99 O2 Delivery Room Air Room Air Room Air Room Air 03/20/20 03/20/20 03/20/20 03/20/20 22:00 22:00 22:00 22:15 Pulse 103 103 112 Resp 22 36 B/P (MAP) 114/88 (97) Pulse Ox 100 100 100 O2 Delivery Room Air Room Air Room Air 03/20/20 03/20/20 03/20/20 03/20/20 22:30 22:51 23:00 23:15 Pulse 105 89 98 Resp 23 22 18 B/P (MAP) 130/95 (107) 127/87 (100) 119/96 (104) Pulse Ox 98 100 100 100 O2 Delivery Room Air Room Air Room Air Room Air 03/21/20 03/21/20 03/21/20 03/21/20 00:00 01:00 01:00 02:00 Temp 36.3 Pulse 95 102 102 104 Resp 17 B/P (MAP) 128/83 (98) 157/87 (110) 160/85 (110) Pulse Ox 100 92 96 O2 Delivery Room Air Nasal Cannula Nasal Cannula O2 Flow Rate 2.00 2.00 03/21/20 03/21/20 03/21/20 03/21/20 03:00 04:00 04:50 05:17 Temp 36.6 Pulse 100 105 98 Resp 06 11 21 B/P (MAP) 163/93 (116) 144/82 (102) 167/95 (119) Pulse Ox 96 95 95 O2 Delivery Nasal Cannula Nasal Cannula Nasal Cannula Nasal Cannula O2 Flow Rate 2.00 2.00 2.00 2.00 03/21/20 03/21/20 03/21/20 03/21/20 06:00 06:36 08:00 08:00 Pulse 101 104 106 Resp 16 7 B/P (MAP) 151/73 (99) 137/108 (118) Pulse Ox 98 100 95 O2 Delivery Nasal Cannula Room Air Nasal Cannula O2 Flow Rate 2.00 2.00 03/21/20 03/21/20 03/21/20 12:00 15:52 19:57 Temp 36.8 36.8 Pulse 98 108 111 Resp 16 18 18 B/P (MAP) 155/94 (114) 135/77 (96) 130/68 (88) Pulse Ox 95 92 92 O2 Delivery Room Air Room Air Room Air Capillary Refill : Less Than 3 Seconds General Appearance: WD/WN, no apparent distress Respiratory: lungs clear, normal breath sounds Cardiovascular: regular rate, rhythm, no murmur Gastrointestinal: normal bowel sounds, non tender, soft Extremities: no pedal edema Neurologic/Psychiatric: alert, normal mood/affect Skin: normal color, warm/dry Assessment/Plan Assessment/Plan Admission Status: Inpatient Order (span 2 midnights) Reason for Inpatient Admission: marked electrolyte abnormalities and hyperglycemia (1) Viral infection Status: Acute Assessment & Plan: With reported fever at home, mild tachycardia on admit and lactic acidosis which may be from dehydration, now resolved. Influenza and rapid COVID neg. PCR pending. (2) Diabetes mellitus, type 2 Status: Chronic Assessment & Plan: Severe hyperglycemia on admit which has improved with fluids and insulin, continue insulin, resume home metformin/sitagliptan, hold glimeperide. 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 Symptomatic treatment and fluids. (4) Diarrhea Status: Acute Assessment & Plan: Monitor output Qualifiers: Qualified Codes: R19.7 - Diarrhea, unspecified (5) Hypertension Status: Chronic Assessment & Plan: Resume home medications. Qualifiers: Qualified Codes: I10 - Essential (primary) hypertension (6) CAD (coronary artery disease) Status: Acute (7) Hyperglycemia Status: Acute (8) Electrolyte abnormality Status: Acute Assessment & Plan: Secondary to vomiting and diarrhea. Hyponatremia, hypokalemia, hypomagnesemia. Replace and follow. (9) Dehydration Status: Acute (10) DVT prophylaxis Status: Acute Assessment & Plan: Enoxaparin REZA PAZ MD Mar 21, 2020 21:06
[2020-03-21] MEDS ORDERED: ENOXAPARIN 40 MG/0.4 ML (LOVENOX) SYR SQ SCH (21:15)
[2020-03-22] MEDS: LACTATED RINGERS 1,000 ML IV SCH (00:20)
[2020-03-22] MEDS: ACETAMINOPHEN 500 MG TAB (TYLENOL) PO PRN (00:22)
[2020-03-22] MEDS: inSUlin ASPART (NovoLOG) 1 UNIT/0.01 ML (CHARGE PER UNIT) SC SCH ×2 (05:25→11:21)
[2020-03-22 06:02] LABS: BASOPHILS # (AUTO) 0.1 10^3/uL (0.0-0.1); BASOPHILS % (AUTO) 1 % (0-10); EOSINOPHILS # (AUTO) 0.5 10^3/uL (0.0-0.3); EOSINOPHILS % (AUTO) 6 % (0-10); HEMATOCRIT 39 % (40-54); HEMOGLOBIN 13.3 g/dL (13.3-17.7); LYMPHOCYTES # (AUTO) 2.4 10^3/uL (1.0-4.0); LYMPHOCYTES % (AUTO) 30 % (12-44); MEAN CORPUSCULAR HEMOGLOBIN 30 pg (25-34); MEAN CORPUSCULAR HGB CONC 35 g/dL (32-36); MEAN CORPUSCULAR VOLUME 87 fL (80-99); MEAN PLATELET VOLUME 9.9 fL (9.0-12.2); MONOCYTES # (AUTO) 0.6 10^3/uL (0.0-1.0); MONOCYTES % (AUTO) 8 % (0-12); NEUTROPHILS # (AUTO) 4.4 10^3/uL (1.8-7.8); NEUTROPHILS % (AUTO) 56 % (42-75); PLATELET COUNT 245 10^3/uL (130-400); WHITE BLOOD COUNT 7.9 10^3/uL (4.3-11.0)
[2020-03-22 06:19] LABS: CHLORIDE 109 MMOL/L (98-107); POTASSIUM 3.8 MMOL/L (3.6-5.0); SODIUM 141 MMOL/L (135-145)
[2020-03-22 06:20] LABS: CALCIUM 8.1 MG/DL (8.5-10.1)
[2020-03-22] MEDS: KCL 20 MEQ TAB (K-DUR) PO SCH ×2 (06:20→06:47)
[2020-03-22 06:21] LABS: GLUCOSE 162 MG/DL (70-105)
[2020-03-22 06:22] LABS: CARBON DIOXIDE 23 MMOL/L (21-32)
[2020-03-22 06:24] LABS: CREATININE SERUM 0.85 MG/DL (0.60-1.30); GFR ESTIMATED > 60
[2020-03-22 06:25] LABS: BUN/CREATININE RATIO 7
[2020-03-22] MEDS ORDERED: metFORMIN 500 MG (GLUCOPHAGE) TAB PO SCH (07:00)
--- NOTE | 2020-03-22 07:12 | Pulmonary Progress Note ---
Subjective Time Seen by a Provider: 07:07 Sepsis Event Evaluation Height, Weight, BMI Height: 5'9.00" Weight: 247lbs. 7.0oz. [id number]; 34.00 BMI Method:Stated Focused Exam Lactate Level 03/20/20 19:50: Lactic Acid Level 3.63*H 03/20/20 22:23: Lactic Acid Level 3.89*H 03/21/20 01:00: Lactic Acid Level 1.66 Exam Exam Vital Signs Date Time Temp Pulse Resp B/P (MAP) Pulse Ox O2 Delivery O2 Flow Rate FiO2 03/22/20 04:02 36.8 100 18 148/80 (102) 98 Nasal Cannula 1.00 03/22/20 00:25 97 Nasal Cannula 1.00 03/22/20 00:09 36.9 106 20 161/88 (112) 97 Nasal Cannula 1.00 03/21/20 20:00 Room Air 03/21/20 19:57 36.8 111 18 130/68 (88) 92 Room Air 03/21/20 15:52 36.8 108 18 135/77 (96) 92 Room Air 03/21/20 12:00 98 16 155/94 (114) 95 Room Air 03/21/20 08:00 106 7 137/108 (118) 95 Nasal Cannula 2.00 03/21/20 08:00 100 Room Air I & O 03/22/20 07:00 Intake Total 3035 ml Output Total 3850 ml Balance -815 ml Height & Weight Height: 5'9.00" Weight: 247lbs. 7.0oz. 112.974476nh; 34.00 BMI Method:Stated General Appearance: No Apparent Distress, Obese HEENT: PERRL/EOMI, TMs Normal, Normal ENT Inspection, Pharynx Normal; No Moist Mucous Membranes (Mildly dry) Neck: Full Range of Motion, Normal Inspection Respiratory: Lungs Clear, Normal Breath Sounds, No Accessory Muscle Use, No Respiratory Distress Cardiovascular: Regular Rate, Rhythm, No Edema, No Murmur, Normal Peripheral Pulses Capillary Refill: Less Than 3 Seconds Gastrointestinal: normal bowel sounds, non tender, soft Extremity: Normal Capillary Refill, Pedal Edema (Trace), Other (Multiple abrasions of various ages from cat scratches on bilateral lower extremities) Neurologic/Psychiatric: Alert, Oriented x3 Results Lab Laboratory Tests 03/20/20 17:30 03/21/20 03:00 03/22/20 05:15 Assessment/Plan Assessment/Plan Hypoxia - resolved -COVID is negative -Influenza is negative Metabolic lactic acidosis -Resolved Diarrhea with Acute dehydration Nausea/vomiting SL lock IVF. Pt is ok for discharge from pulmonary standpoint. I am going to sign off. Please call with any questions or concerns. GIULIANA WARNER DO Mar 22, 2020 07:12
[2020-03-22] MEDS: ENOXAPARIN 40 MG/0.4 ML (LOVENOX) SYR SC SCH (08:40)
[2020-03-22] MEDS ORDERED: LOSARTAN 100 MG (COZAAR) TABLET PO SCH (09:00)
[2020-03-22] MEDS ORDERED: amLODIPine 10 MG (NORVASC) TAB PO SCH (09:00)
[2020-03-22] MEDS ORDERED: sitaGLIPtin/METFORMIN 50/1000 MG (JANUMET) NON FORM PO SCH (09:00)
[2020-03-22] MEDS ORDERED: meTOprolol TARTRATE 50 MG (LOPRESSOR) TAB PO SCH (09:00)
[2020-03-22] MEDS ORDERED: CLOPIDOGREL 75 MG (PLAVIX) TABLET PO SCH (09:00)
[2020-03-22] MEDS ORDERED: LINAGLIPTIN (TRADJENTA) 5 MG TABLET PO SCH (09:00)
[2020-03-22] MEDS ORDERED: DULoxetine 30 MG (CYMBALTA) CAP PO SCH (09:00)
--- NOTE | 2020-03-22 10:57 | Discharge Summary ---
Discharge Summary Hospital Course Problems/Diagnosis: (1) Viral infection Status: Acute Assessment & Plan: With reported fever at home, mild tachycardia on admit and lactic acidosis which may be from dehydration, now resolved. Influenza and rapid COVID neg. PCR neg. (2) Diabetes mellitus, type 2 Status: Chronic Assessment & Plan: Severe hyperglycemia on admit which has improved with fluids and insulin, continue insulin, resume home metformin/sitagliptan, hold glimeperide. Qualifiers: Qualified Codes: E11.65 - Type 2 diabetes mellitus with hyperglycemia; Z79.4 - long term (current) use of insulin (3) Nausea and vomiting Status: Acute Assessment & Plan: Suspect related to viral syndrome. Symptomatic treatment and fluids. Tolerating diet at d/c. (4) Diarrhea Status: Acute Assessment & Plan: Decreased during hospitalization. Qualifiers: Qualified Codes: R19.7 - Diarrhea, unspecified (5) Hypertension Status: Chronic Assessment & Plan: Resume home medications. Qualifiers: Qualified Codes: I10 - Essential (primary) hypertension (6) CAD (coronary artery disease) Status: Acute (7) Hyperglycemia Status: Acute (8) Electrolyte abnormality Status: Resolved Resolution Date/Time: 03/22/20 @ 10:55 Assessment & Plan: Secondary to vomiting and diarrhea. Hyponatremia, hypokalemia, hypomagnesemia. Replaced and resolved. (9) Dehydration Status: Resolved Resolution Date/Time: 03/21/20 @ 10:55 Hospital Course Date of Admission: Mar 20, 2020 at 18:29 Admission Diagnosis : Family Physician/Provider: Socrates Coronado MD Date of Discharge: 03/22/20 Discharge Diagnosis: See problem list Hospital Course: See problem list Labs and Pending Lab Test: Laboratory Tests 03/21/20 12:15: Glucometer 232H 03/21/20 15:56: Glucometer 207H 03/21/20 19:44: Glucometer 268H 03/22/20 05:11: Glucometer 154H 03/22/20 05:15: White Blood Count 7.9, Red Blood Count 4.43, Hemoglobin 13.3, Hematocrit 39L, Mean Corpuscular Volume 87, Mean Corpuscular Hemoglobin 30, Mean Corpuscular Hemoglobin Concent 35, Red Cell Distribution Width 12.9, Platelet Count 245, Mean Platelet Volume 9.9, Immature Granulocyte % (Auto) 0, Neutrophils (%) (Auto) 56, Lymphocytes (%) (Auto) 30, Monocytes (%) (Auto) 8, Eosinophils (%) (Auto) 6, Basophils (%) (Auto) 1, Neutrophils # (Auto) 4.4, Lymphocytes # (Auto) 2.4, Monocytes # (Auto) 0.6, Eosinophils # (Auto) 0.5H, Basophils # (Auto) 0.1, Immature Granulocyte # (Auto) 0.0, Sodium Level 141, Potassium Level 3.8, Chloride Level 109H, Carbon Dioxide Level 23, Anion Gap 9, Blood Urea Nitrogen 6L, Creatinine 0.85, Estimat Glomerular Filtration Rate > 60, BUN/Creatinine Ratio 7, Glucose Level 162H, Calcium Level 8.1L, Phosphorus Level 3.0, Magnesium Level 2.0 Microbiology 03/20/20 Urine Culture - Final, Complete NO GROWTH 03/20/20 MRSA Screen - Final, Complete MRSA not isolated 03/20/20 Blood Culture - Preliminary, Resulted No growth Home Meds Active Reported Duloxetine HCl 60 Mg Capsule.dr 60 Mg PO BID Potassium Chloride 10 Meq Tab.er.prt 10 Meq PO DAILY Metoprolol Tartrate 50 Mg Tablet 50 Mg PO BID Losartan Potassium 100 Mg Tablet 100 Mg PO DAILY Levemir Flextouch (Insulin Detemir) 100 Unit/1 Ml Insuln.pen 15 Unit SQ HS LAST FILLED 11/10/2019 #5 PENS 100 DAY SUPPLY Acetaminophen Extra Strength (Acetaminophen) 500 Mg Tablet 1,000 Mg PO Q8H PRN TAKES 2 (500MG) TABS Amaryl (Glimepiride) 1 Mg Tab 1 Mg PO DAILY Lipitor (Atorvastatin Calcium) 40 Mg Tablet 40 Mg PO HS Amlodipine Besylate 10 Mg Tablet 10 Mg PO DAILY [place] 3 1,000 mg Softgel ([place]-3 Fatty Acids/Fish Oil) 1 Each Capsule 1 Each PO DAILY Janumet 50-1,000 mg Tablet (Sitagliptin Phos/Metformin HCl) 1 Each Tablet 1 Each PO BID Plavix (Clopidogrel Bisulfate) 75 Mg Tablet 75 Mg PO DAILY Assessment/Pt DC Instructions Follow up with Dr. Coronado on 03/25 at 3:20 pm. Discharge Diet: ADA Diet Activity as Tolerated: Yes Discharge Physical Examination Allergies: Coded Allergies: aspirin (Verified Allergy, Severe, 12/10/17) egg (Verified Allergy, Intermediate, Vomiting, 03/21/20) Penicillins (Unverified Allergy, Unknown, 07/19/13) Sulfa (Sulfonamide Antibiotics) (Unverified Allergy, Unknown, 07/19/13) lactose (Unverified Allergy, Unknown, 12/10/17) CAUSES GAS lidocaine (Verified Allergy, Unknown, 01/06/16) peanut (Unverified Allergy, Unknown, air closes off, 07/19/13) strawberry (Unverified Allergy, Unknown, airway closes off, 07/19/13) codeine (Unverified Adverse Reaction, Mild, NAUSEA, 02/03/14) Uncoded Allergies: ENVIRONMENTAL (Allergy, Unknown, 07/19/13) raw egg whites (Adverse Reaction, Unknown, upset stomach, 12/09/17) General Appearance: WD/WN Respiratory: Lungs Clear, Normal Breath Sounds Cardiovascular: Regular Rate, Rhythm, No Murmur Gastrointestinal: Normal Bowel Sounds, Non Tender, Soft Extremity: No Pedal Edema Skin: Normal Color, Warm/Dry Neurologic/Psychiatric: Alert, Normal Mood/Affect Copy Copies To 1: SOCRATES CORONADO MD, BETHANY N MD Mar 22, 2020 10:57
--- NOTE | 2020-03-22 11:11 | NUR ---
RD ASSESSMENT PMHx: DM; HTN; HLD; CAD; PT INTERACTION: Pt was awake and pleasant during nutrition assessment. Pt states current appetite is getting better. Note avg PO intake >75% 1d, per chart review. Pt states following a "Mediterranean/modified ketogenic" diet at home, and has no issues with chewing/swallowing food. Pt states recent issues with nausea, vomiting, and diarrhea, and that his last BM was 03/20. Note pt not currently on bowel regimen per chart review. Pt states recent 30# wt loss x3mon. Note recent 22# wt loss x5mon, per chart review. Pt states current DM management is "pretty good. I keep my blood sugars between 130-150 and if it gets outside that range up or down, I start to feel sick." Note recent HbA1c of 13.4 (11/10/2019), per chart review. 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 kcal needs: 5624-5052 kcal | 15-20 kcal/kg Est. Pro needs: 85-106 g Pro | 0.8-1.0 g Pro/kg PES STATEMENT: Given current PO intake, no nutrition diagnosis at this time (NO-1.1). INTERVENTION: Continue with current diet order of CHO 60g/m 1snack diet. 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 Will continue to follow and reassess as pt needs, intake, and status change. Gloria GOODE, MS RD LD [phone] cell
[2020-03-22] MEDS ORDERED: ONDANSETRON 4 MG (ZOFRAN) ORAL DISSOLVE TAB ONE (12:34)
[2020-03-22] MEDS ORDERED: ONDA4TAB11 PO (12:43)
[2020-03-22 14:16] VITALS: BP 146/80
== END 2020-03-22 14:20 | disposition home or self-care (01) | DRG 866 ==
LOC: EDUNIT# 17:30 → ER 17:32 → ICU 18:29 → 4TH 03-21 11:38
PROVIDERS: ADMIT Internal Medicine; ATTEND Family Medicine
DX: B34.9 Viral infection, unspecified (principal); E87.2 Acidosis; E87.1 Hypo-osmolality and hyponatremia; E86.0 Dehydration; R09.02 Hypoxemia; R11.2 Nausea with vomiting, unspecified; R19.7 Diarrhea, unspecified; I25.10 Atherosclerotic heart disease of native coronary artery without angina pectoris; Z20.822 Contact with and (suspected) exposure to COVID-19; E11.65 Type 2 diabetes mellitus with hyperglycemia; I08.1 Rheumatic disorders of both mitral and tricuspid valves; E78.00 Pure hypercholesterolemia, unspecified; I10 Essential (primary) hypertension; E11.40 Type 2 diabetes mellitus with diabetic neuropathy, unspecified; K21.9 Gastro-esophageal reflux disease without esophagitis; M19.91 Primary osteoarthritis, unspecified site; F41.9 Anxiety disorder, unspecified; L40.9 Psoriasis, unspecified; J45.909 Unspecified asthma, uncomplicated; G47.30 Sleep apnea, unspecified; E87.6 Hypokalemia; E83.42 Hypomagnesemia; E83.39 Other disorders of phosphorus metabolism; Z79.4 Long term (current) use of insulin; Z88.6 Allergy status to analgesic agent; Z91.010 Allergy to peanuts; Z88.0 Allergy status to penicillin; Z88.2 Allergy status to sulfonamides; Z91.018 Allergy to other foods; Z82.61 Family history of arthritis; Z83.3 Family history of diabetes mellitus; Z82.49 Family history of ischemic heart disease and other diseases of the circulatory system
CPT/HCPCS: 36415; 71045; 80048; 80053; 81000; 82010; 82150; 82962; 83605; 83690; 83735; 84100; 85025; 85610; 85730; 87040; 87081; 87088; 87635; 87804; 96360

== ENCOUNTER 2020-05-22 09:27 | Inpatient (IN) | payer OTHER ==
[~2020-05-22] VITALS: Ht 175 cm; Wt 98.0 kg
--- NOTE | 2020-05-22 09:40 | ED Chest Pain ---
General Chief Complaint: Abdominal/GI Problems Stated Complaint: N/V Nursing Triage Note: ARRIVED VIA EMS FROM HOME WITH COMPLANTS OF N/V SINCE YESTERDAY. FIRST COVID VACCINE LAST SAT. Nursing Sepsis Screen: No Definite Risk Source: patient, EMS Exam Limitations: no limitations History of Present Illness Date Seen by Provider: May 22, 2020 Time Seen by Provider: 09:23 Initial Comments Patient presents ER by EMS from home with chief complaint that since yesterday he started having nausea and vomiting. He had his first Covid vaccine 4 days a go on Saturday. He has had no fevers or chills. He is having some dull achy chest pain reminiscent of angina in the middle of his chest nonreproducible to direct palpation or inspiration today about a 4 out of 10. He has a history of stents by Dr. Ortega. He is having some increased shortness of breath nausea and vomiting which has kept him from taking his pills since yesterday. He denies dysuria. He is diabetic and his blood sugar is in the 400 range. He has an allergy to aspirin but takes Plavix. Allergies and Home Medications Allergies Coded Allergies: aspirin (Verified Allergy, Severe, 12/10/17) egg (Verified Allergy, Intermediate, Vomiting, 03/21/20) Penicillins (Unverified Allergy, Unknown, 07/19/13) Sulfa (Sulfonamide Antibiotics) (Unverified Allergy, Unknown, 07/19/13) lactose (Unverified Allergy, Unknown, 12/10/17) CAUSES GAS lidocaine (Verified Allergy, Unknown, 01/06/16) peanut (Unverified Allergy, Unknown, air closes off, 07/19/13) strawberry (Unverified Allergy, Unknown, airway closes off, 07/19/13) codeine (Unverified Adverse Reaction, Mild, NAUSEA, 02/03/14) Uncoded Allergies: ENVIRONMENTAL (Allergy, Unknown, 07/19/13) raw egg whites (Adverse Reaction, Unknown, upset stomach, 12/09/17) Home Medications Acetaminophen 500 Mg Tablet, 1,000 MG PO Q8H PRN for PAIN-MILD (1-4), (Reported) TAKES 2 (500MG) TABS Amlodipine Besylate 10 Mg Tablet, 10 MG PO DAILY, (Reported) Atorvastatin Calcium 40 Mg Tablet, 40 MG PO HS, (Reported) Clopidogrel Bisulfate 75 Mg Tablet, 75 MG PO DAILY, (Reported) Duloxetine HCl 60 Mg Capsule.dr, 60 MG PO BID, (Reported) Glimepiride 1 Mg Tab, 1 MG PO DAILY, (Reported) Insulin Detemir 100 Unit/1 Ml Insuln.pen, 15 UNIT SQ HS, (Reported) LAST FILLED 11/10/2019 #5 PENS 100 DAY SUPPLY Losartan Potassium 100 Mg Tablet, 100 MG PO DAILY, (Reported) Metoprolol Tartrate 50 Mg Tablet, 50 MG PO BID, (Reported) Bluebell-3 Fatty Acids/Fish Oil 1 Each Capsule, 1 EACH PO DAILY, (Reported) Ondansetron 4 Mg Tab.rapdis, 4 MG PO Q4H PRN for NAUSEA/VOMITING Prescribed by: REZA ADAMS on 03/22/20 1243 Potassium Chloride 10 Meq Tab.er.prt, 10 MEQ PO DAILY, (Reported) Sitagliptin Phos/Metformin HCl 1 Each Tablet, 1 EACH PO BID, (Reported) Patient Home Medication List Home Medication List Reviewed: Yes Review of Systems Review of Systems Constitutional: No chills, No fever; malaise, weakness EENTM: No Blurred Vision, No Double Vision Respiratory: Denies Cough, Denies Shortness of Air Cardiovascular: Denies Chest Pain, Denies Lightheadedness Gastrointestinal: Denies Abdominal Pain, Denies Constipated, Denies Diarrhea; Nausea, Vomiting Genitourinary: Denies Burning, Denies Discharge Musculoskeletal: No back pain, No joint pain All Other Systems Reviewed Negative Unless Noted: Yes Past Mpjyuym-Agjipo-Kztsxj Hx Patient Social History Alcohol Use: Occasionally Uses Number of Drinks Today: Alcohol Beverage of Choice: Wine Smoking Status: Never a Smoker 2nd Hand Smoke Exposure: Yes (PARENTS SMOKED) Recent Infectious Disease Expo: No Recent Hopitalizations: No Immunizations Up To Date Tetanus Booster (TDap): Unknown Date of Pneumonia Vaccine: Aug 18, 2013 Seasonal Allergies Seasonal Allergies: Yes Past Medical History Surgeries: Yes (CARPAL TUNNEL RELASE SX, LEFT HAND SURGERY, L FOOT, EGD/COLONOSCOPY) Cardiac, Coronary Stent, Gallbladder, Orthopedic, Tonsillectomy Respiratory: Yes (RLL PUL. NODULE--FOLLOWED EVERY 6 MONTHS;INTUBATED 2018/PULM EDEMA/ARF ) Asthma, Sleep Apnea Currently Using CPAP: Yes Currently Using BIPAP: Yes Cardiac: Yes (CAD--STENTS X 2; MR/TR) Coronary Artery Disease, High Cholesterol, Hypertension, Irregular Heartbeat, Valvular Heart Disease Neurological: Yes Neuropathy Reproductive Disorders: No Sexually Transmitted Disease: No Genitourinary: No Gastrointestinal: Yes Gastroesophageal Reflux, Polyps, Hiatal Hernia, Ulcer Musculoskeletal: Yes (BILAT CARPAL TUNNEL SURG;L HAND SURG; L FOOT SURG) Arthritis Endocrine: No Diabetes, Insulin dep HEENT: No Loss of Vision: Denies Hearing Impairment: Denies Cancer: No Psychosocial: Yes Anxiety Integumentary: Yes Psoriasis Blood Disorders: No Adverse Reaction/Blood Tranf: No Family Medical History Congestive heart failure 19 MOTHER Family history: Arthritis 19 FATHER 19 MOTHER Family history: Cardiovascular disease 19 FATHER 19 MOTHER Family history: Diabetes mellitus 19 FATHER Family history: Glaucoma 19 MOTHER Family history: Hypertension 19 FATHER 19 MOTHER Family history: Osteoporosis 19 MOTHER Hearing loss 19 MOTHER Heart disease 19 FATHER 19 MOTHER Myocardial infarction 19 FATHER 19 MOTHER (DBL BYPASS) Stroke 19 MOTHER (MICRO STROKES) No Family History of: Abdominal aortic aneurysm Sony's disease Alcoholism Aphasia Cancer Cancer of colon Cataract Chest pain Congenital heart disease Cystic fibrosis Dementia Dysphagia Family history: Allergy Family history: Alzheimer's disease Family history: Asthma Family history: Breast disease Family history: Coronary thrombosis Family history: Gastrointestinal disease Family history: Thyroid disorder Headache Hereditary disease History of - anemia History of - disorder History of - respiratory disease History of drug abuse Human immunodeficiency virus (HIV) seropositivity Hypercholesterolemia Infertile Kidney disease Malignant neoplasm of lung Parkinson's disease Prostate cancer Psychotic disorder Seizure disorder Tuberculosis Visual impairment Heart Disease, Diabetes, Hypertension PAST SURGICAL HISTORY: -CARDIAC CATHS--STENTS X 2 IN 2018. LAST CATH 02/04/19--NO INTERVENTION. HAD PATENT STENT TO LEFT CIRCUMFLEX, WITH COMPLETE OCCLUSION OF LEFT PDA; PATENT STENT TO RCA; MILD DISEASE IN OTHER VESSELS -APPENDECTOMY -EGD'S AND COLONOSCOPIES WITH POLYPECTOMY -BILATERAL CARPAL TUNNEL SURGERY -LEFT HAND SURGERY -LEFT FOOT SURGERY Physical Exam Vital Signs Vital Signs - First Documented 05/22/20 09:30 Temp 36.3 Pulse 111 Resp 16 B/P (MAP) 101/107 (105) Pulse Ox 99 O2 Delivery Room Air Capillary Refill : Less Than 3 Seconds Height, Weight, BMI Height: 5'9.00" Weight: 247lbs. 7.0oz. [id number]; 34.00 BMI Method:Stated General Appearance: No Apparent Distress, Moderate Distress HEENT: PERRL/EOMI; No Pharynx Normal (Dry), No Moist Mucous Membranes Neck: Full Range of Motion, Normal Inspection Respiratory: Lungs Clear, Normal Breath Sounds, No Accessory Muscle Use, No Respiratory Distress Cardiovascular: Regular Rate, Rhythm, No Edema, Normal Peripheral Pulses Gastrointestinal: Normal Bowel Sounds, Non Tender, Soft Extremity: Normal Capillary Refill, Normal Inspection, No Pedal Edema Neurologic/Psychiatric: Alert, Oriented x3, No Motor/Sensory Deficits, Normal Mood/Affect Skin: Normal Color, Warm/Dry Procedures/Interventions Date of ETT Placement: Dec 06, 2017 Time of ETT Placement: 1349 Progress/Results/Core Measures Results/Orders Lab Results Laboratory Tests Test 05/22/20 09:35 05/22/20 10:54 05/22/20 12:15 05/22/20 12:25 Range/Units White Blood Count 9.3 4.3-11.0 10^3/uL Red Blood Count 5.57 H 4.30-5.52 10^6/uL Hemoglobin 16.3 13.3-17.7 g/dL Hematocrit 47 40-54 % Mean Corpuscular Volume 85 80-99 fL Mean Corpuscular Hemoglobin 29 25-34 pg Mean Corpuscular Hemoglobin Concent 35 32-36 g/dL Red Cell Distribution Width 12.4 10.0-14.5 % Platelet Count 374 130-400 10^3/uL Mean Platelet Volume 9.6 9.0-12.2 fL Immature Granulocyte % (Auto) 0 % Neutrophils (%) (Auto) 77 H 42-75 % Lymphocytes (%) (Auto) 14 12-44 % Monocytes (%) (Auto) 5 0-12 % Eosinophils (%) (Auto) 3 0-10 % Basophils (%) (Auto) 1 0-10 % Neutrophils # (Auto) 7.2 1.8-7.8 10^3/uL Lymphocytes # (Auto) 1.3 1.0-4.0 10^3/uL Monocytes # (Auto) 0.4 0.0-1.0 10^3/uL Eosinophils # (Auto) 0.3 0.0-0.3 10^3/uL Basophils # (Auto) 0.1 0.0-0.1 10^3/uL Immature Granulocyte # (Auto) 0.0 0.0-0.1 10^3/uL Prothrombin Time 12.3 12.2-14.7 SEC INR Comment 0.9 0.8-1.4 Activated Partial Thromboplast Time 20 L 24-35 SEC D-Dimer 0.57 H 0.00-0.49 UG/ML Sodium Level 138 135-145 MMOL/L Potassium Level 3.9 3.6-5.0 MMOL/L Chloride Level 99 98-107 MMOL/L Carbon Dioxide Level 18 L 21-32 MMOL/L Anion Gap 21 H 5-14 MMOL/L Blood Urea Nitrogen 10 7-18 MG/DL Creatinine 1.25 0.60-1.30 MG/DL Estimat Glomerular Filtration Rate 59 BUN/Creatinine Ratio 8 Glucose Level 432 *H 70-105 MG/DL Calcium Level 9.9 8.5-10.1 MG/DL Corrected Calcium 9.8 8.5-10.1 MG/DL Magnesium Level 1.7 1.6-2.4 MG/DL Total Bilirubin 0.8 0.1-1.0 MG/DL Aspartate Amino Transf (AST/SGOT) 23 5-34 U/L Alanine Aminotransferase (ALT/SGPT) 27 0-55 U/L Alkaline Phosphatase 115 40-136 U/L Myoglobin 50.0 10.0-92.0 NG/ML Troponin I < 0.028 <0.028 NG/ML B-Type Natriuretic Peptide 54.2 <100.0 PG/ML Total Protein 8.7 H 6.4-8.2 GM/DL Albumin 4.1 3.2-4.5 GM/DL Lipase 11 8-78 U/L Glucometer 345 H 273 H 70-110 MG/DL Urine Color YELLOW Urine Clarity CLEAR Urine pH 6.0 5-9 Urine Specific [place] 1.020 1.016-1.022 Urine Protein 3+ H NEGATIVE Urine Glucose (UA) 3+ H NEGATIVE Urine Ketones 2+ H NEGATIVE Urine Nitrite NEGATIVE NEGATIVE Urine Bilirubin NEGATIVE NEGATIVE Urine Urobilinogen 0.2 < = 1.0 MG/DL Urine Leukocyte Esterase NEGATIVE NEGATIVE Urine RBC (Auto) 1+ H NEGATIVE Urine RBC 0-2 /HPF Urine WBC NONE /HPF Urine Squamous Epithelial Cells NONE /HPF Urine Crystals NONE /LPF Urine Bacteria NEGATIVE /HPF Urine Casts NONE /LPF Urine Mucus NEGATIVE /LPF Urine Culture Indicated NO My Orders Orders - SIERRA,LORETTA J Ed Iv/Invasive Line Start (05/22/20 09:33) Ns Iv 1000 Ml (Sodium Chloride 0.9%) (05/22/20 09:45) Cbc With Automated Diff (05/22/20:33) Magnesium (05/22/20:33) Chest 1 View, Ap/Pa Only (05/22/20:33) Ekg Tracing (05/22/20:33) Comprehensive Metabolic Panel (05/22/20:33) Myoglobin Serum (05/22/20:33) Protime With Inr (05/22/20:33) Partial Thromboplastin Time (05/22/20:33) O2 (05/22/20:33) Monitor-Rhythm Ecg Trace Only (05/22/20:33) Lipid Panel (05/23/20 06:00) Ed Iv/Invasive Line Start (05/22/20:33) Lipase (05/22/20:33) BNP (05/22/20:33) Troponin I (05/22/20:33) Nitroglycerin 0.4 Mg Btl 25's (Nitrostat (05/22/20 09:45) Pantoprazole Injection (Protonix Injecti (05/22/20 09:45) Ondansetron Injection (Zofran Injectio (05/22/20 09:45) Fibrin Degradation Products (05/22/20 09:33) Ua Culture If Indicated (05/22/20 09:33) Insulin (Regular) Human (Novolin R (Per (05/22/20 09:45) Promethazine Injection (Phenergan Injec (05/22/20 10:30) Morphine Injection (Morphine Injection (05/22/20 10:20) Potassium Cl 10meq/50ml Ivpb (Kcl 10 Meq (05/22/20 10:30) Accucheck Stat ONCE (05/22/20 10:42) Ns (Ivpb) (Sodium Chloride 0.9%) (05/22/20 11:09) Ns (Ivpb) (Sodium Chloride 0.9%) (05/22/20 11:27) Medications Given in ED Current Medications Medications Dose Ordered Sig/Brissa Route Start Time Stop Time Status Last Admin Dose Admin Insulin Human Regular 10 unit ONCE ONCE SC 05/22/20 09:45 05/22/20 09:46 DC 05/22/20 09:49 10 UNIT Nitroglycerin 0.4 mg UD PRN SL 05/22/20 09:45 05/22/20 14:01 DC 05/22/20 10:18 0.4 MG Ondansetron HCl 8 mg ONCE ONCE IVP 05/22/20 09:45 05/22/20 09:46 DC 05/22/20 09:46 8 MG Pantoprazole 40 mg ONCE ONCE IV 05/22/20 09:45 05/22/20 09:46 DC 05/22/20 09:47 40 MG Potassium Chloride 50 ml @ 50 mls/hr ONCE ONCE IV 05/22/20 10:30 05/22/20 11:29 DC 05/22/20 11:24 50 MLS/HR Promethazine HCl 25 mg ONCE ONCE IVP 05/22/20 10:30 05/22/20 10:31 DC 05/22/20 10:25 25 MG Vital Signs/I&O 05/22/20 09:30 Temp 36.3 Pulse 111 Resp 16 B/P (MAP) 101/107 (105) Pulse Ox 99 O2 Delivery Room Air Blood Pressure Mean: 105 Progress Progress Note #1: Time: 09:38 Progress Note Nitroglycerin for his chest pain, ondansetron 8 mg for his nausea initial EKG does not show ST changes. Looking for DKA, HHS, viral gastroenteritis, reaction to the Covid vaccine, atypical angina. Progress Note #2: Time: 12:48 Progress Note Zofran failed to treat his nausea so we gave him some Phenergan along with his fluids and that helped. He did finally produce a urine with ketones so were putting him up for DKA in the ICU. Initial ECG Impression Date: May 22, 2020 Initial ECG Impression Time: 09:29 Initial ECG Rate: 110 Initial ECG Rhythm: S.Tach Initial ECG Intervals: Normal Initial ECG Impression: Normal, Nonspecific Changes Initial ECG Comparisson: No Previous ECG Available Comment Normal sinus tachycardia without elevated ST segment. Diagnostic Imaging Diagonstic Imaging: Xray Plain Films/CT/US/NM/MRI: chest Comments [facility] [place] NAME: DAREN BARRIOS [facility] REC#: [id number] PT STATUS: REG ER : 1960 PHYSICIAN: LORETTA ESQUIVEL MD ADMIT DATE: 05/22/20/ER Signed Date of Exam:05/22/20 CHEST 1 VIEW, AP/PA ONLY INDICATION: Chest pain. Comparison is made with prior examination from 03/21/20. FINDINGS: The heart size, mediastinal configuration, and pulmonary vascularity are within normal limits. There is no pleural effusion, pneumothorax, or pneumonia. The osseous structures are unremarkable. IMPRESSION: No acute cardiopulmonary abnormality. Dictated by: Dictated on workstation # [id number] Dict: 05/22/20 1003 Trans: 05/22/20 1036 [facility] [id number] Interpreted by: CLEOPATRA BURGESS MD Electronically signed by: CLEOPATRA BURGESS MD 05/22/20 1036 Reviewed: Reviewed by Me Departure Communication (Admissions) Time/Spoke to Admitting Phy: 12:50 Discussed the case with Dr. Rodriguez and she agrees to admit the patient to the ICU on DKA protocol and trend the troponins. Impression Primary Impression: DKA, type 2 Qualified Codes: E11.10 - Type 2 diabetes mellitus with ketoacidosis without coma Additional Impression: ACS (acute coronary syndrome) Disposition: ADMITTED INPATIENT Condition: Stable Admissions Decision to Admit Reason: Admit from ER (General) Decision to Admit/Date: May 22, 2020 Time/Decision to Admit Time: 10:00 Departure-Patient Inst. Referrals: KATE CORONADO MD (PCP/Family) Primary Care Physician LORETTA ESQUIVEL May 22, 2020 09:40
[2020-05-22] MEDS ORDERED: PANTOPRAZOLE 40 MG (PROTONIX) VIAL IV ONE (09:45)
[2020-05-22] MEDS ORDERED: inSUlin (REGULAR) HUMAN 1 UNIT/0.01 ML (CHARGE PER UNIT) SC ONE (09:45)
[2020-05-22] MEDS ORDERED: ONDANSETRON 4 MG/2 ML (SDV) Z0FRAN IVP ONE (09:45)
[2020-05-22] MEDS ORDERED: NS IV 1000 ML 1,000 ML IV SCH (09:45)
[2020-05-22 09:46] LABS: BASOPHILS # (AUTO) 0.1 10^3/uL (0.0-0.1); BASOPHILS % (AUTO) 1 % (0-10); EOSINOPHILS # (AUTO) 0.3 10^3/uL (0.0-0.3); EOSINOPHILS % (AUTO) 3 % (0-10); HEMATOCRIT 47 % (40-54); HEMOGLOBIN 16.3 g/dL (13.3-17.7); LYMPHOCYTES # (AUTO) 1.3 10^3/uL (1.0-4.0); LYMPHOCYTES % (AUTO) 14 % (12-44); MEAN CORPUSCULAR HEMOGLOBIN 29 pg (25-34); MEAN CORPUSCULAR HGB CONC 35 g/dL (32-36); MEAN CORPUSCULAR VOLUME 85 fL (80-99); MEAN PLATELET VOLUME 9.6 fL (9.0-12.2); MONOCYTES # (AUTO) 0.4 10^3/uL (0.0-1.0); MONOCYTES % (AUTO) 5 % (0-12); NEUTROPHILS # (AUTO) 7.2 10^3/uL (1.8-7.8); NEUTROPHILS % (AUTO) 77 % (42-75); PLATELET COUNT 374 10^3/uL (130-400); WHITE BLOOD COUNT 9.3 10^3/uL (4.3-11.0)
[2020-05-22] MEDS: NITROGLYCERIN 0.4 MG SL TABS BTL 25'S SL PRN ×2 (09:50→10:18)
[2020-05-22 09:58] LABS: INR 0.9 (0.8-1.4); PROTHROMBIN TIME PATIENT 12.3 SEC (12.2-14.7)
[2020-05-22 10:05] LABS: ALBUMIN 4.1 GM/DL (3.2-4.5); BILIRUBIN,TOTAL 0.8 MG/DL (0.1-1.0); CALCIUM 9.9 MG/DL (8.5-10.1); CREATININE SERUM 1.25 MG/DL (0.60-1.30); MAGNESIUM 1.7 MG/DL (1.6-2.4); POTASSIUM 3.9 MMOL/L (3.6-5.0); TOTAL PROTEIN 8.7 GM/DL (6.4-8.2)
--- NOTE | 2020-05-22 10:05 | Diagnostic Imaging Report ---
INDICATION: Chest pain. Comparison is made with prior examination from 03/21/20. FINDINGS: The heart size, mediastinal configuration, and pulmonary vascularity are within normal limits. There is no pleural effusion, pneumothorax, or pneumonia. The osseous structures are unremarkable. IMPRESSION: No acute cardiopulmonary abnormality. Dictated by: Dictated on workstation # [id number]
[2020-05-22] MEDS ORDERED: morphine INJ 10 MG/ML 1ML (SYR OR VIAL) IVP STA (10:20)
[2020-05-22] MEDS ORDERED: POTASSIUM CL 10MEQ/50ML IVPB 50 ML IV ONE (10:30)
[2020-05-22] MEDS ORDERED: PROMETHAZINE INJ 25 MG/ML (PHENERGAN) AMP IVP ONE (10:30)
[2020-05-22] MEDS ORDERED: NS (IVPB) 250 ML ONE (11:09)
[2020-05-22] MEDS ORDERED: NS (IVPB) 250 ML IV STA (11:27)
[2020-05-22 12:25] LABS: BILIRUBIN,URINE NEGATIVE (NEGATIVE); CLARITY,URINE CLEAR; COLOR,URINE YELLOW; GLUCOSE, URINE (UA) 3+ (NEGATIVE); KETONES,URINE 2+ (NEGATIVE); LEUKOCYTE ESTERASE ,URINE NEGATIVE (NEGATIVE); NITRITE,URINE NEGATIVE (NEGATIVE); PROTEIN,URINE 3+ (NEGATIVE)
[2020-05-22 12:32] LABS: BACTERIA,URINE NEGATIVE /HPF; RBC,URINE 0-2 /HPF
[2020-05-22] MEDS ORDERED: hydrALAZINE (APESOLINE) 20 MG/ML VIAL IV ONE (13:15)
--- NOTE | 2020-05-22 13:29 | History & Physical-Hospitalist ---
History of Present Illness HPI/Chief Complaint This is a 59-year-old white male with a history of type 2 diabetes with previous DKA's.He presents to the emergency room with complaints of nausea and vomiting for the last 2 days. He is found to be with a low bicarb urine ketones and blood sugar of over 400. In addition he has been complaining of some left chest discomfort that radiates to the midsternal area. He denies that this has been associated with diaphoresis. He does note that he is somewhat more short of breath. Source: patient, RN/MD ([id number]) Exam Limitations: no limitations Date Seen 05/22/20 Time Seen by a Provider: 13:00 Attending Physician Deann Lange MD PCP Socrates Coronado MD Referring Physician Date of Admission May 22, 2020 at 12:55 Home Medications & Allergies Home Medications Reviewed patient Home Medication Reconciliation performed by pharmacy medication reconciliations flight data technician and/or nursing. Patients Allergies have been reviewed. Allergies Allergies Coded Allergies aspirin (Verified Allergy, Severe, 12/10/17) egg (Verified Allergy, Intermediate, Vomiting, 03/21/20) Penicillins (Unverified Allergy, Unknown, 07/19/13) Sulfa (Sulfonamide Antibiotics) (Unverified Allergy, Unknown, 07/19/13) lactose (Unverified Allergy, Unknown, 12/10/17) CAUSES GAS lidocaine (Verified Allergy, Unknown, 01/06/16) peanut (Unverified Allergy, Unknown, air closes off, 07/19/13) strawberry (Unverified Allergy, Unknown, airway closes off, 07/19/13) codeine (Unverified Adverse Reaction, Mild, NAUSEA, 02/03/14) Uncoded Allergies ENVIRONMENTAL ( Allergy, Unknown, 07/19/13) raw egg whites ( Adverse Reaction, Unknown, upset stomach, 12/09/17) Patient Social History Marrital Status: single Smoking Status: Never a Smoker Immunizations Up To Date Tetanus Booster (TDap): Unknown Hepatitis A: No Hepatitis B: No Date of Pneumonia Vaccine: Aug 18, 2013 Current Status Primary Language: [place] Islander Past Medical History PMHx: DMII HTN HLD CAD Family Medical History Family Hx: PAST SURGICAL HISTORY: -CARDIAC CATHS--STENTS X 2 IN 2018. LAST CATH 02/04/19--NO INTERVENTION. HAD PATENT STENT TO LEFT CIRCUMFLEX, WITH COMPLETE OCCLUSION OF LEFT PDA; PATENT STENT TO RCA; MILD DISEASE IN OTHER VESSELS -APPENDECTOMY -EGD'S AND COLONOSCOPIES WITH POLYPECTOMY -BILATERAL CARPAL TUNNEL SURGERY -LEFT HAND SURGERY -LEFT FOOT SURGERY Review of Systems Constitutional: see HPI Respiratory: dyspnea on exertion Cardiovascular: chest pain Gastrointestinal: nausea, vomiting Genitourinary: no symptoms reported Musculoskeletal: no symptoms reported Skin: no symptoms reported Psychiatric/Neurological: No Symptoms Reported Physical Exam Physical Exam Vital Signs Vital Signs - First Documented 05/22/20 09:30 Temp 36.3 Pulse 111 Resp 16 B/P (MAP) 101/107 (105) Pulse Ox 99 O2 Delivery Room Air Capillary Refill : Less Than 3 Seconds Height, Weight, BMI Height: 5'9.00" Weight: 247lbs. 7.0oz. [id number]; 34.00 BMI Method:Stated General Appearance: Chronically ill HEENT: Other (Dry oral mucosa) Neck: Normal Inspection, Non Tender Respiratory: Chest Non Tender, Lungs Clear, Normal Breath Sounds, No Accessory Muscle Use, No Respiratory Distress Cardiovascular: Regular Rate, Rhythm, No Edema, No Gallop, No JVD, No Murmur Gastrointestinal: Soft, Abnormal Bowel Sounds Results Results/Procedures Labs Laboratory Tests 05/22/20 09:35 Patient resulted labs reviewed. Assessment/Plan Admission Diagnosis Mild diabetic ketoacidosis Chest pain with a history of coronary artery disease Type 2 diabetes Plan to admit to the ICU on insulin drip consult cardiology and rule out myocardial infarction Admission Status: Observation Copy Copies To 1: SOCRATES CORONADO MD Supervisory-Addendum Brief Verification & Attestation Participated in pt care: history, MDM, physical Personally performed: exam, history, MDM Care discussed with: other (ER physician) Procedures: n/a no student DEANN LANGE MD May 22, 2020 13:29
[2020-05-22 13:37] VITALS: BP 187/107
[2020-05-22] MEDS ORDERED: NS IV 1000 ML 2,000 ML ONE (13:46)
[2020-05-22] MEDS ORDERED: morphine INJ 4 MG/ML 1 ML (VIAL/SYRINGE) IV PRN (14:15)
[2020-05-22] MEDS ORDERED: ACETAMINOPHEN 650 MG SUPP (TYLENOL) PR PRN (14:15)
[2020-05-22] MEDS ORDERED: inSUlin REGULAR 100 UNITS/100 ML DRIP (Premix) IV SCH (14:15)
[2020-05-22] MEDS ORDERED: NITROGLYCERIN 0.4 MG SL TABS BTL 25'S SL PRN (14:15)
[2020-05-22] MEDS ORDERED: ANTACID SUSP 30 ML UDC (MYLANTA) PO PRN (14:15)
[2020-05-22 14:39] LABS: HEMOGLOBIN 15.2 g/dL (13.3-17.7); WHITE BLOOD COUNT 9.4 10^3/uL (4.3-11.0)
[2020-05-22] MEDS ORDERED: POTASSIUM CL 10MEQ/50ML IVPB 100 ML IV ONE (14:39)
[2020-05-22 14:57] LABS: BUN/CREATININE RATIO 9; CALCIUM 8.9 MG/DL (8.5-10.1); CARBON DIOXIDE 22 MMOL/L (21-32); CHLORIDE 104 MMOL/L (98-107); CREATININE SERUM 1.06 MG/DL (0.60-1.30); GFR ESTIMATED > 60; GLUCOSE 301 MG/DL (70-105); POTASSIUM 3.2 MMOL/L (3.6-5.0); SODIUM 140 MMOL/L (135-145)
[2020-05-22] MEDS ORDERED: POTASSIUM CL 10 MEQ/50 ML IVPB (PRE-MIX) IV PRN ×2 (15:00→15:15)
[2020-05-22] MEDS: 1/2 NS IV SOLUTION 1,000 ML IV SCH ×3 (15:50→23:09)
[2020-05-22] MEDS: D5 1/2 NS 1000 ML IV SOLUTION 1,000 ML IV SCH ×4 (15:50→23:09)
[2020-05-22] MEDS: ONDANSETRON 4 MG/2 ML (SDV) Z0FRAN IV PRN ×2 (15:58→22:25)
[2020-05-22] MEDS: ENOXAPARIN 40 MG/0.4 ML (LOVENOX) SYR SC SCH (16:49)
[2020-05-22] MEDS: PROMETHAZINE INJ 25 MG/ML (PHENERGAN) AMP IV PRN (16:49)
[2020-05-22] MEDS ORDERED: MAGNESIUM 1 GM/100 ML IVPB 100 ML IV ONE (17:15)
[2020-05-22] MEDS ORDERED: ONDANSETRON 4 MG/2 ML (SDV) Z0FRAN IVP PRN (17:15)
[2020-05-22 17:17] LABS: BUN/CREATININE RATIO 10; CALCIUM 8.1 MG/DL (8.5-10.1); CARBON DIOXIDE 22 MMOL/L (21-32); CHLORIDE 108 MMOL/L (98-107); CREATININE SERUM 0.89 MG/DL (0.60-1.30); GFR ESTIMATED > 60; GLUCOSE 250 MG/DL (70-105); POTASSIUM 3.1 MMOL/L (3.6-5.0); SODIUM 140 MMOL/L (135-145)
[2020-05-22] MEDS: POTASSIUM CL 10MEQ/50ML IVPB 50 ML IV SCH ×4 (17:24→19:45)
[2020-05-22] MEDS: meTOprolol 5 MG/5 ML (LOPRESSOR) VIAL IV SCH (17:26)
[2020-05-22 19:44] LABS: BUN/CREATININE RATIO 9; CALCIUM 8.4 MG/DL (8.5-10.1); CARBON DIOXIDE 22 MMOL/L (21-32); CHLORIDE 109 MMOL/L (98-107); CREATININE SERUM 0.97 MG/DL (0.60-1.30); GFR ESTIMATED > 60; GLUCOSE 216 MG/DL (70-105); POTASSIUM 3.4 MMOL/L (3.6-5.0); SODIUM 142 MMOL/L (135-145)
[2020-05-22] MEDS ORDERED: SODIUM CHLORIDE 14.6% INJ 38.5 MEQ in D5W 1000 ML IV SOLUTION 1,000 ML IV SCH (21:45)
[2020-05-22] MEDS ORDERED: D5 NS 1000 ML IV SOLUTION 0 ML IV ONE (22:03)
[2020-05-23] MEDS ORDERED: inSUlin ASPART (NovoLOG) 1 UNIT/0.01 ML (CHARGE PER UNIT) SC SCH
[2020-05-23] MEDS: PROMETHAZINE INJ 25 MG/ML (PHENERGAN) AMP IV PRN (00:14)
[2020-05-23] MEDS: meTOprolol 5 MG/5 ML (LOPRESSOR) VIAL IV SCH ×5 (02:01→22:45)
[2020-05-23 03:32] LABS: BASOPHILS # (AUTO) 0.1 10^3/uL (0.0-0.1); BASOPHILS % (AUTO) 1 % (0-10); EOSINOPHILS # (AUTO) 0.4 10^3/uL (0.0-0.3); EOSINOPHILS % (AUTO) 4 % (0-10); HEMATOCRIT 40 % (40-54); HEMOGLOBIN 13.1 g/dL (13.3-17.7); LYMPHOCYTES # (AUTO) 1.9 10^3/uL (1.0-4.0); LYMPHOCYTES % (AUTO) 19 % (12-44); MEAN CORPUSCULAR HEMOGLOBIN 29 pg (25-34); MEAN CORPUSCULAR HGB CONC 33 g/dL (32-36); MEAN CORPUSCULAR VOLUME 89 fL (80-99); MEAN PLATELET VOLUME 9.4 fL (9.0-12.2); MONOCYTES # (AUTO) 0.6 10^3/uL (0.0-1.0); MONOCYTES % (AUTO) 6 % (0-12); NEUTROPHILS # (AUTO) 7.3 10^3/uL (1.8-7.8); NEUTROPHILS % (AUTO) 71 % (42-75); PLATELET COUNT 310 10^3/uL (130-400); WHITE BLOOD COUNT 10.2 10^3/uL (4.3-11.0)
[2020-05-23 03:52] LABS: ALANINE AMINOTRANSFERASE 21 U/L (0-55); ALBUMIN 3.2 GM/DL (3.2-4.5); ALKALINE PHOSPHATASE 78 U/L (40-136); BILIRUBIN,TOTAL 0.5 MG/DL (0.1-1.0); BUN/CREATININE RATIO 10; CALCIUM 8.2 MG/DL (8.5-10.1); CARBON DIOXIDE 20 MMOL/L (21-32); CHLORIDE 109 MMOL/L (98-107); CHOLESTEROL 109 MG/DL (< 200); CREATININE SERUM 0.91 MG/DL (0.60-1.30); GFR ESTIMATED > 60; GLUCOSE 204 MG/DL (70-105); HDL CHOLESTEROL 28 MG/DL (40-60); MAGNESIUM 1.8 MG/DL (1.6-2.4); PHOSPHORUS 2.4 MG/DL (2.3-4.7); POTASSIUM 3.4 MMOL/L (3.6-5.0); SODIUM 141 MMOL/L (135-145); TOTAL PROTEIN 6.3 GM/DL (6.4-8.2); TRIGLYCERIDES 136 MG/DL (<150); VLDL CHOLESTEROL 27 MG/DL (5-40)
--- NOTE | 2020-05-23 04:44 | Pulmonary Consultation ---
History of Present Illness History of Present Illness Date Seen by Provider: May 23, 2020 Time Seen by Provider: 04:38 Date of Admission Allergies and Home Medications Allergies Coded Allergies: aspirin (Verified Allergy, Severe, 12/10/17) egg (Verified Allergy, Intermediate, Vomiting, 03/21/20) Penicillins (Unverified Allergy, Unknown, 07/19/13) Sulfa (Sulfonamide Antibiotics) (Unverified Allergy, Unknown, 07/19/13) lactose (Unverified Allergy, Unknown, 12/10/17) CAUSES GAS lidocaine (Verified Allergy, Unknown, 01/06/16) peanut (Unverified Allergy, Unknown, air closes off, 07/19/13) strawberry (Unverified Allergy, Unknown, airway closes off, 07/19/13) codeine (Unverified Adverse Reaction, Mild, NAUSEA, 02/03/14) Uncoded Allergies: ENVIRONMENTAL (Allergy, Unknown, 07/19/13) raw egg whites (Adverse Reaction, Unknown, upset stomach, 12/09/17) Home Medications Acetaminophen 500 Mg Tablet, 1,000 MG PO Q8H PRN for PAIN-MILD (1-4), (Reported) TAKES 2 (500MG) TABS Amlodipine Besylate 10 Mg Tablet, 10 MG PO DAILY, (Reported) Atorvastatin Calcium 40 Mg Tablet, 40 MG PO HS, (Reported) Clopidogrel Bisulfate 75 Mg Tablet, 75 MG PO DAILY, (Reported) Duloxetine HCl 60 Mg Capsule.dr, 60 MG PO BID, (Reported) Glimepiride 1 Mg Tab, 1 MG PO DAILY, (Reported) Insulin Detemir 100 Unit/1 Ml Insuln.pen, 15 UNIT SQ HS, (Reported) LAST FILLED 11/10/2019 #5 PENS 100 DAY SUPPLY Losartan Potassium 100 Mg Tablet, 100 MG PO DAILY, (Reported) Metoprolol Tartrate 50 Mg Tablet, 50 MG PO BID, (Reported) [place]-3 Fatty Acids/Fish Oil 1 Each Capsule, 1 EACH PO DAILY, (Reported) Ondansetron 4 Mg Tab.rapdis, 4 MG PO Q4H PRN for NAUSEA/VOMITING Prescribed by: REZA ADAMS on 03/22/20 1243 Potassium Chloride 10 Meq Tab.er.prt, 10 MEQ PO DAILY, (Reported) Sitagliptin Phos/Metformin HCl 1 Each Tablet, 1 EACH PO BID, (Reported) Past Okqhppf-Emapbd-Wgagta Hx Patient Social History Alcohol Use: Occasionally Uses Number of Drinks Today: Alcohol Beverage of Choice: Wine Smoking Status: Never a Smoker 2nd Hand Smoke Exposure: Yes (PARENTS SMOKED) Recent Infectious Disease Expo: No Recent Hopitalizations: No Have you traveled recently?: No Alcohol Use?: Yes Immunizations Up To Date Tetanus Booster (TDap): Unknown Date of Pneumonia Vaccine: Aug 18, 2013 Seasonal Allergies Seasonal Allergies: Yes Past Medical History Surgeries: Yes (CARPAL TUNNEL RELASE SX, LEFT HAND SURGERY, L FOOT, EGD/COLONOSCOPY) Cardiac, Coronary Stent, Gallbladder, Orthopedic, Tonsillectomy Respiratory: Yes (RLL PUL. NODULE--FOLLOWED EVERY 6 MONTHS;INTUBATED 2017/PULM EDEMA/ARF ) Asthma, Sleep Apnea Currently Using CPAP: Yes Currently Using BIPAP: Yes Cardiac: Yes (CAD--STENTS X 2; MR/TR) Coronary Artery Disease, High Cholesterol, Hypertension, Irregular Heartbeat, Valvular Heart Disease Neurological: Yes Neuropathy Reproductive Disorders: No Sexually Transmitted Disease: No Genitourinary: No Gastrointestinal: Yes Gastroesophageal Reflux, Polyps, Hiatal Hernia, Ulcer Musculoskeletal: Yes (BILAT CARPAL TUNNEL SURG;L HAND SURG; L FOOT SURG) Arthritis Endocrine: No Diabetes, Insulin dep HEENT: No Loss of Vision: Denies Hearing Impairment: Denies Cancer: No Psychosocial: Yes Anxiety Integumentary: Yes Psoriasis Blood Disorders: No Adverse Reaction/Blood Tranf: No Family Medical History Congestive heart failure 19 MOTHER Family history: Arthritis 19 FATHER 19 MOTHER Family history: Cardiovascular disease 19 FATHER 19 MOTHER Family history: Diabetes mellitus 19 FATHER Family history: Glaucoma 19 MOTHER Family history: Hypertension 19 FATHER 19 MOTHER Family history: Osteoporosis 19 MOTHER Hearing loss 19 MOTHER Heart disease 19 FATHER 19 MOTHER Myocardial infarction 19 FATHER 19 MOTHER (DBL BYPASS) Stroke 19 MOTHER (MICRO STROKES) No Family History of: Abdominal aortic aneurysm Granville's disease Alcoholism Aphasia Cancer Cancer of colon Cataract Chest pain Congenital heart disease Cystic fibrosis Dementia Dysphagia Family history: Allergy Family history: Alzheimer's disease Family history: Asthma Family history: Breast disease Family history: Coronary thrombosis Family history: Gastrointestinal disease Family history: Thyroid disorder Headache Hereditary disease History of - anemia History of - disorder History of - respiratory disease History of drug abuse Human immunodeficiency virus (HIV) seropositivity Hypercholesterolemia Infertile Kidney disease Malignant neoplasm of lung Parkinson's disease Prostate cancer Psychotic disorder Seizure disorder Tuberculosis Visual impairment Heart Disease, Diabetes, Hypertension PAST SURGICAL HISTORY: -CARDIAC CATHS--STENTS X 2 IN 2018. LAST CATH 02/04/19--NO INTERVENTION. HAD PATENT STENT TO LEFT CIRCUMFLEX, WITH COMPLETE OCCLUSION OF LEFT PDA; PATENT STENT TO RCA; MILD DISEASE IN OTHER VESSELS -APPENDECTOMY -EGD'S AND COLONOSCOPIES WITH POLYPECTOMY -BILATERAL CARPAL TUNNEL SURGERY -LEFT HAND SURGERY -LEFT FOOT SURGERY Review of Systems Time Seen by Provider: 04:48 Sepsis Event Evaluation Height, Weight, BMI Height: 5'9.00" Weight: 247lbs. 7.0oz. 112.096309go; 34.61 BMI Method:Stated Exam Exam Vital Signs Date Time Temp Pulse Resp B/P (MAP) Pulse Ox O2 Delivery O2 Flow Rate FiO2 05/22/20 23:00 97 18 152/86 (108) 96 Nasal Cannula 2.00 05/22/20 22:00 105 22 168/92 (117) 99 Nasal Cannula 2.00 05/22/20 21:49 93 Nasal Cannula 2.00 05/22/20 21:00 Room Air 05/22/20 21:00 96 140/91 (107) 98 Nasal Cannula 2.00 05/22/20 20:00 101 18 182/105 (130) 97 Nasal Cannula 2.00 05/22/20 19:00 109 05/22/20 19:00 109 24 193/110 (137) 96 Nasal Cannula 2.00 05/22/20 17:00 121 20 174/88 (116) 93 Nasal Cannula 2.00 05/22/20 16:47 Nasal Cannula 2.00 05/22/20 16:21 Room Air 05/22/20 16:00 117 26 193/98 (129) 95 Room Air 05/22/20 15:36 37.4 05/22/20 15:00 112 12 179/101 (127) 92 Room Air 05/22/20 14:22 111 05/22/20 14:00 112 24 178/113 (134) 100 Room Air 05/22/20 13:49 37.1 05/22/20 13:37 103 16 187/107 99 Room Air 05/22/20 13:36 Room Air 05/22/20 13:30 117 36 116/77 (90) 98 Room Air 05/22/20 09:30 36.3 111 16 101/107 (105) 99 Room Air I & O 05/23/20 07:00 Intake Total 3650 ml Balance 3650 ml Height & Weight Height: 5'9.00" Weight: 247lbs. 7.0oz. 112.377437gc; 34.61 BMI Method:Stated General Appearance: No Apparent Distress, Moderate Distress HEENT: PERRL/EOMI; No Pharynx Normal (Dry), No Moist Mucous Membranes Neck: Full Range of Motion, Normal Inspection Respiratory: Lungs Clear, Normal Breath Sounds, No Accessory Muscle Use, No Respiratory Distress Cardiovascular: Regular Rate, Rhythm, No Edema, Normal Peripheral Pulses Capillary Refill: Less Than 3 Seconds Extremity: Normal Capillary Refill, Normal Inspection, No Pedal Edema Neurologic/Psychiatric: Alert, Oriented x3, No Motor/Sensory Deficits, Normal Mood/Affect Skin: Normal Color, Warm/Dry Results Lab Laboratory Tests 05/22/20 09:35 05/22/20 14:25 05/22/20 16:50 05/22/20 19:23 05/23/20 03:25 Assessment/Plan Assessment/Plan DKA -- -Pt is off insulin gtt however he is going back into mild DKA -Elevated beta hydroxybuterate, increasing Gap and worsening acidosis -Increase D5 to 100 -Give another 10 units of Levemir now and SSI Q4 -Repeat Labs at 11am. -Pt complains of persistent nausea and is not eating -Will check amylase, Lipas Chest pain with a history of coronary artery disease -Cardiology following -Possible cath secondary to persistent CP Type 2 diabetes GIULIANA WARNER DO May 23, 2020 04:44
[2020-05-23] MEDS ORDERED: inSUlin ASPART (NovoLOG) 1 UNIT/0.01 ML (CHARGE PER UNIT) ONE (05:00)
[2020-05-23 05:08] LABS: AMYLASE 34 U/L (25-125); LIPASE 9 U/L (8-78)
[2020-05-23] MEDS: D5 1/2 NS 1000 ML IV SOLUTION 1,000 ML IV SCH ×3 (05:11→23:24)
[2020-05-23] MEDS: POTASSIUM CL 10MEQ/50ML IVPB 50 ML IV SCH ×6 (05:12→12:56)
[2020-05-23] MEDS: MAGNESIUM 1 GM/100 ML IVPB 100 ML IV SCH (05:20)
[2020-05-23] MEDS: KCL 20 MEQ TAB (K-DUR) PO SCH (05:20)
[2020-05-23] MEDS: inSUlin ASPART (NovoLOG) 1 UNIT/0.01 ML (CHARGE PER UNIT) SC SCH ×5 (07:38→22:54)
--- NOTE | 2020-05-23 08:23 | Diagnostic Imaging Report ---
INDICATION: Dyspnea Single AP view of the chest is obtained. Since study of one day earlier, there has been mild increase in perihilar and basilar atelectasis. This may in part be due to suboptimal inspiration. No pneumothorax or focal consolidations identified. IMPRESSION: Increasing basilar atelectasis and/or pneumonitis. Dictated by: Dictated on workstation # [id number]
[2020-05-23] MEDS ORDERED: POTASSIUM PHOSPHATE INJ 15 MM in NS (IVPB) 250 ML IV ONE (09:00)
--- NOTE | 2020-05-23 10:35 | Progress Note - Hospitalist ---
DALE REMY, MED STUDENT 05/23/20 1035: Subjective HPI/CC On Admission This is a 59-year-old white male with a history of type 2 diabetes with previous DKA's.He presents to the emergency room with complaints of nausea and vomiting for the last 2 days. He is found to be with a low bicarb urine ketones and blood sugar of over 400. In addition he has been complaining of some left chest discomfort that radiates to the midsternal area. He denies that this has been associated with diaphoresis. He does note that he is somewhat more short of breath. Subjective/Events-last exam Doing well this morning w/ no acute events overnight. Chest pain is still a constant dull 4/10 pain located in the mid sternum. He denies any radiation of the pain and nothing has improved or worsened the pain. He denies any associated SOA or sweating. Nausea is still present and worsened by PO intake or movement. He denies emesis. Review of Systems General: No Chills, No Night Sweats, No Fatigue, No Malaise, No Appetite, No Other HEENT: Visual Changes Pulmonary: No Dyspnea, No Cough, No Pleuritic Chest Pain, No Other Cardiovascular: Chest Pain Gastrointestinal: Nausea, Vomiting Genitourinary: No Dysuria, No Frequency, No Incontinence, No Hematuria, No Retention, No Other Musculoskeletal: No: other, neck pain, shoulder pain, arm pain, back pain, hand pain, leg pain, foot pain Neurological: No: Weakness, Numbness, Incoordination, Change in speech, Confusion, Seizures, Other Objective Exam Vital Signs Vital Signs Date Time Temp Pulse Resp B/P (MAP) Pulse Ox O2 Delivery O2 Flow Rate FiO2 05/23/20 09:14 Nasal Cannula 2.00 05/23/20 09:00 101 26 171/99 (123) 91 05/23/20 07:48 37.7 Capillary Refill : Less Than 3 Seconds General Appearance: No Apparent Distress, WD/WN Neck: Full Range of Motion, Normal Inspection, Non Tender, Supple Respiratory: Chest Non Tender, Lungs Clear, Normal Breath Sounds, No Accessory Muscle Use, No Respiratory Distress Cardiovascular: Regular Rate, Rhythm, No Edema, No Gallop, No JVD, No Murmur, Normal Peripheral Pulses Gastrointestinal: Normal Bowel Sounds, No Organomegaly, No Pulsatile Mass, Non Tender, Soft Back: Normal Inspection, No CVA Tenderness Extremity: Normal Capillary Refill, Normal Inspection, Normal Range of Motion, Non Tender, No Calf Tenderness Neurologic/Psychiatric: Alert, Oriented x3 Results/Procedures Lab Laboratory Tests 05/22/20 14:25 05/22/20 16:50 05/22/20 19:23 05/23/20 03:25 Patient resulted labs reviewed. Assessment/Plan Assessment and Plan Assess & Plan/Chief Complaint Bello Laird is a 59 y/o M w/ PMH of DMII, CAD, COPD, and HTN presenting for DKA and ACS r/o #DKA - Nausea and vomiting on admission - Blood sugars >400 on admission - Insulin drip - Blood sugars 150-200s overnight - Anion gap is 12 this morning, previously higher on admission - Bicarb 20 - K 3.4 Plan: > Continue insulin ggt > Goal blood sugars 120 - 150 > continue fluids > K replacement #Chest pain - Characteristic of anginal chest pain - Stents placed in 2018, last LHC in 2019 -> recommended medical management - EKG w/o ST changes or T wave inversions - Troponin pending Plan: > Cardiology consult for ACS rule out #HTN - BP 181/101 this morning - HR 81 - Currently on metoprolol 10mg Plan: > Increase metoprolol to 25mg SHEREEN DIANA DO 05/24/20 0512: Subjective HPI/CC On Admission Date Seen by Provider: May 23, 2020 Time Seen by Provider: 09:30 Subjective/Events-last exam Pt doing a little better but still having nausea and vomiting Chest pain still continues so I have consulted Dr. Ortega Still on insulin drip and IV fluids Checked meds and labs Chest X-ray appears to be a little bit worse Review of Systems General: Fatigue Gastrointestinal: Nausea, Vomiting Objective Exam General Appearance: No Apparent Distress, WD/WN, Chronically ill Respiratory: Lungs Clear Cardiovascular: Regular Rate, Rhythm Neurologic/Psychiatric: Alert, Oriented x3, No Motor/Sensory Deficits, Normal Mood/Affect Assessment/Plan Assessment and Plan Assess & Plan/Chief Complaint DKA Supportive care Insulin IV Supervisory-Addendum Brief Verification & Attestation Participated in pt care: history, MDM, physical Personally performed: exam, history, MDM, supervision of care Care discussed with: Medical Student Procedures: n/a Results interpretation: Verified all documentation Verification and Attestation of Medical Student E/M Service A medical student performed and documented this service in my presence. I reviewed and verified all information documented by the medical student and made modifications to such information, when appropriate. I personally performed the physical exam and medical decision making. Shereen Diana, May 24, 2020,05:12 DALE REMY, MED STUDENT May 23, 2020 10:35 SHEREEN DIANA DO May 24, 2020 05:12
[2020-05-23 12:07] LABS: ALANINE AMINOTRANSFERASE 20 U/L (0-55); ALBUMIN 3.4 GM/DL (3.2-4.5); ALKALINE PHOSPHATASE 83 U/L (40-136); BILIRUBIN,TOTAL 0.5 MG/DL (0.1-1.0); BUN/CREATININE RATIO 8; CALCIUM 8.5 MG/DL (8.5-10.1); CARBON DIOXIDE 18 MMOL/L (21-32); CHLORIDE 110 MMOL/L (98-107); CREATININE SERUM 0.88 MG/DL (0.60-1.30); GFR ESTIMATED > 60; GLUCOSE 174 MG/DL (70-105); POTASSIUM 3.7 MMOL/L (3.6-5.0); SODIUM 139 MMOL/L (135-145); TOTAL PROTEIN 6.9 GM/DL (6.4-8.2)
--- NOTE | 2020-05-23 12:42 | Consultation-Cardiology ---
HPI-Cardiology Cardiology Consultation Date of Consultation 05/23/20 Date of Admission Time Seen by Provider: 04:48 Indication: Chest pain [facility] Cardiology has been consulted for chest pain. Mr. Laird is a 59-year-old male who presented to the ED for nausea and vomiting with centralized chest pain. He was found to be in DKA. Currently he is still having centralized chest pain. Rates 4/10 on pain scale and is dull, worsens with movement. States he is also having "labored" breathing and numbness in his hands. He denies any diaphoresis associated with this episode. He was given nitroglycerin 05/22 but states this did not alleviate his pain. He previously had a cardiac cath with stent placement by Dr. Ortega in 2019. Home Medications & Allergies Allergies: Coded Allergies: aspirin (Verified Allergy, Severe, 12/10/17) egg (Verified Allergy, Intermediate, Vomiting, 03/21/20) Penicillins (Unverified Allergy, Unknown, 07/19/13) Sulfa (Sulfonamide Antibiotics) (Unverified Allergy, Unknown, 07/19/13) lactose (Unverified Allergy, Unknown, 12/10/17) CAUSES GAS lidocaine (Verified Allergy, Unknown, 01/06/16) peanut (Unverified Allergy, Unknown, air closes off, 07/19/13) strawberry (Unverified Allergy, Unknown, airway closes off, 07/19/13) codeine (Unverified Adverse Reaction, Mild, NAUSEA, 02/03/14) Uncoded Allergies: ENVIRONMENTAL (Allergy, Unknown, 07/19/13) raw egg whites (Adverse Reaction, Unknown, upset stomach, 12/09/17) Home Medication List Reviewed: Yes CSG-Mquhew-Feldbo Hx Patient Social History Marital Status: single Recreational Drug Use: No Smoking Status: Never a Smoker 2nd Hand Smoke Exposure: Yes (PARENTS SMOKED) Recent Hopitalizations: No Have you traveled recently?: No Alcohol Use?: Yes Immunizations Up To Date Tetanus Booster (TDap): Unknown Date of Pneumonia Vaccine: Aug 18, 2013 Past Medical History HTN DM2 SONIA CAD Family Medical History Significant Family History: Heart Disease, Diabetes, Hypertension Family History: Congestive heart failure 19 MOTHER Family history: Arthritis 19 FATHER 19 MOTHER Family history: Cardiovascular disease 19 FATHER 19 MOTHER Family history: Diabetes mellitus 19 FATHER Family history: Glaucoma 19 MOTHER Family history: Hypertension 19 FATHER 19 MOTHER Family history: Osteoporosis 19 MOTHER Hearing loss 19 MOTHER Heart disease 19 FATHER 19 MOTHER Myocardial infarction 19 FATHER 19 MOTHER (DBL BYPASS) Stroke 19 MOTHER (MICRO STROKES) No Family History of: Abdominal aortic aneurysm Thomas's disease Alcoholism Aphasia Cancer Cancer of colon Cataract Chest pain Congenital heart disease Cystic fibrosis Dementia Dysphagia Family history: Allergy Family history: Alzheimer's disease Family history: Asthma Family history: Breast disease Family history: Coronary thrombosis Family history: Gastrointestinal disease Family history: Thyroid disorder Headache Hereditary disease History of - anemia History of - disorder History of - respiratory disease History of drug abuse Human immunodeficiency virus (HIV) seropositivity Hypercholesterolemia Infertile Kidney disease Malignant neoplasm of lung Parkinson's disease Prostate cancer Psychotic disorder Seizure disorder Tuberculosis Visual impairment Review of Systems-General Review of Systems Constitutional: No chills; diaphoresis; No fever EENTM: ear discharge, blurred vision (lateral edge of right eye) Respiratory: dyspnea on exertion Cardiovascular: chest pain Gastrointestinal: nausea, vomiting Genitourinary: no symptoms reported Musculoskeletal: No back pain, No joint pain Skin: no symptoms reported Psychiatric/Neurological: No Symptoms Reported All Other Systems Reviewed Negative Unless Noted: Yes Reviewed Test Results Reviewed Test Results Lab Laboratory Tests Test 05/22/20 20:41 05/22/20 21:00 05/22/20 21:23 05/22/20 22:19 Range/Units Glucometer 174 H 149 H 127 H 70-110 MG/DL Troponin I 0.028 <0.028 NG/ML Test 05/23/20 00:02 05/23/20 03:25 05/23/20 07:28 05/23/20 11:10 Range/Units Glucometer 137 H 238 H 166 H 70-110 MG/DL White Blood Count 10.2 4.3-11.0 10^3/uL Red Blood Count 4.47 4.30-5.52 10^6/uL Hemoglobin 13.1 L 13.3-17.7 g/dL Hematocrit 40 40-54 % Mean Corpuscular Volume 89 80-99 fL Mean Corpuscular Hemoglobin 29 25-34 pg Mean Corpuscular Hemoglobin Concent 33 32-36 g/dL Red Cell Distribution Width 13.0 10.0-14.5 % Platelet Count 310 130-400 10^3/uL Mean Platelet Volume 9.4 9.0-12.2 fL Immature Granulocyte % (Auto) 0 % Neutrophils (%) (Auto) 71 42-75 % Lymphocytes (%) (Auto) 19 12-44 % Monocytes (%) (Auto) 6 0-12 % Eosinophils (%) (Auto) 4 0-10 % Basophils (%) (Auto) 1 0-10 % Neutrophils # (Auto) 7.3 1.8-7.8 10^3/uL Lymphocytes # (Auto) 1.9 1.0-4.0 10^3/uL Monocytes # (Auto) 0.6 0.0-1.0 10^3/uL Eosinophils # (Auto) 0.4 H 0.0-0.3 10^3/uL Basophils # (Auto) 0.1 0.0-0.1 10^3/uL Immature Granulocyte # (Auto) 0.0 0.0-0.1 10^3/uL Sodium Level 141 135-145 MMOL/L Potassium Level 3.4 L 3.6-5.0 MMOL/L Chloride Level 109 H 98-107 MMOL/L Carbon Dioxide Level 20 L 21-32 MMOL/L Anion Gap 12 5-14 MMOL/L Blood Urea Nitrogen 9 7-18 MG/DL Creatinine 0.91 0.60-1.30 MG/DL Estimat Glomerular Filtration Rate > 60 BUN/Creatinine Ratio 10 Glucose Level 204 H 70-105 MG/DL Calcium Level 8.2 L 8.5-10.1 MG/DL Corrected Calcium 8.8 8.5-10.1 MG/DL Phosphorus Level 2.4 2.3-4.7 MG/DL Magnesium Level 1.8 1.6-2.4 MG/DL Total Bilirubin 0.5 0.1-1.0 MG/DL Aspartate Amino Transf (AST/SGOT) 17 5-34 U/L Alanine Aminotransferase (ALT/SGPT) 21 0-55 U/L Alkaline Phosphatase 78 40-136 U/L Total Protein 6.3 L 6.4-8.2 GM/DL Albumin 3.2 3.2-4.5 GM/DL Triglycerides Level 136 <150 MG/DL Cholesterol Level 109 < 200 MG/DL LDL Cholesterol Direct 51 1-129 MG/DL VLDL Cholesterol 27 5-40 MG/DL HDL Cholesterol 28 L 40-60 MG/DL Amylase Level 34 25-125 U/L Lipase 9 8-78 U/L Beta-Hydroxybutyrate (Chem panel) 1.07 H 0.00-0.27 MMOL/L Test 05/23/20 11:30 05/23/20 15:42 05/23/20 18:37 05/23/20 19:30 Range/Units Sodium Level 139 140 135-145 MMOL/L Potassium Level 3.7 3.7 3.6-5.0 MMOL/L Chloride Level 110 H 108 H 98-107 MMOL/L Carbon Dioxide Level 18 L 20 L 21-32 MMOL/L Anion Gap 11 12 5-14 MMOL/L Blood Urea Nitrogen 7 6 L 7-18 MG/DL Creatinine 0.88 0.89 0.60-1.30 MG/DL Estimat Glomerular Filtration Rate > 60 > 60 BUN/Creatinine Ratio 8 7 Glucose Level 174 H 162 H 70-105 MG/DL Calcium Level 8.5 8.6 8.5-10.1 MG/DL Corrected Calcium 9.0 8.5-10.1 MG/DL Total Bilirubin 0.5 0.1-1.0 MG/DL Aspartate Amino Transf (AST/SGOT) 18 5-34 U/L Alanine Aminotransferase (ALT/SGPT) 20 0-55 U/L Alkaline Phosphatase 83 40-136 U/L Total Protein 6.9 6.4-8.2 GM/DL Albumin 3.4 3.2-4.5 GM/DL Glucometer 188 H 152 H 70-110 MG/DL Beta-Hydroxybutyrate (Chem panel) 0.07 0.00-0.27 MMOL/L Physical Exam Physical Exam Vital Signs Vital Signs - First Documented 05/22/20 05/22/20 09:30 16:47 Temp 36.3 Pulse 111 Resp 16 B/P (MAP) 101/107 (105) Pulse Ox 99 O2 Delivery Room Air O2 Flow Rate 2.00 Capillary Refill : Less Than 3 Seconds Height, Weight, BMI Height: 5'9.00" Weight: 247lbs. 7.0oz. 112.170933ms; 34.61 BMI Method:Stated General Appearance: No Apparent Distress, WD/WN HEENT: PERRL/EOMI Neck: Full Range of Motion, Normal Inspection, Non Tender, Supple Respiratory: Chest Non Tender, Lungs Clear, Normal Breath Sounds, No Accessory Muscle Use, No Respiratory Distress Cardiovascular: Regular Rate, Rhythm, No Edema, No Gallop, No Murmur, Normal Peripheral Pulses Gastrointestinal: Normal Bowel Sounds, No Organomegaly, No Pulsatile Mass, Non Tender, Soft Back: Normal Inspection, No CVA Tenderness Extremity: Normal Capillary Refill, Normal Inspection, Normal Range of Motion, Non Tender, No Calf Tenderness Neurologic/Psychiatric: Alert, Oriented x3 Skin: Normal Color, Warm/Dry A/P-Cardiology Admission Diagnosis Chest pain Coronary artery disease Hypertension Hyperlipidemia Assessment/Plan Chest pain, recent cath in 2019 with total occlusion of PDA and stents placed in proximal circumflex and mid-RCA with mild disease in the LAD. Risk factors of DM2, SONIA. Will likely need repeat stress test for evaluation, has not had one since 2019. Troponin negative x3 on 05/22. Allergic to aspirin, but maintained on Plavix. HTN, continue home regimen of medications. Hyperlipidemia, statin. SONIA, nighttime BiPAP. DKA, managed by primary care team. DM2, per primary team. Patient was seen and evaluated with Dylon Raza, medical student. Discussed the management plan, I interviewed the patient and performed physical examination Agree with the scribed note DKA, receiving treatment, nausea and vomiting, managed by primary care team Chest pain, extensive coronary artery disease per cardiac catheterization done in 2019, has been having more accelerating episode of chest pain, troponin has been negative Hypertension, restart home medication monitor blood pressure Hyperlipidemia, continue on statin Supervisory-Addendum Brief Verification & Attestation Participated in pt care: history, MDM, physical Personally performed: exam, history, MDM, supervision of care Care discussed with: Medical Student Procedures: n/a Results interpretation: Verified all documentation Verification and Attestation of Medical Student E/M Service A medical student performed and documented this service in my presence. I reviewed and verified all information documented by the medical student and made modifications to such information, when appropriate. I personally performed the physical exam and medical decision making. Lourdes Ortega, May 23, 2020,20:13 DYLON FERRER, May 23, 2020 12:42 LOURDES ORTEGA MD May 23, 2020 20:12
[2020-05-23] MEDS: ENOXAPARIN 40 MG/0.4 ML (LOVENOX) SYR SC SCH (15:19)
[2020-05-23 19:07] LABS: BUN/CREATININE RATIO 7; CALCIUM 8.6 MG/DL (8.5-10.1); CARBON DIOXIDE 20 MMOL/L (21-32); CHLORIDE 108 MMOL/L (98-107); CREATININE SERUM 0.89 MG/DL (0.60-1.30); GFR ESTIMATED > 60; GLUCOSE 162 MG/DL (70-105); POTASSIUM 3.7 MMOL/L (3.6-5.0); SODIUM 140 MMOL/L (135-145)
[2020-05-23] MEDS: ACETAMINOPHEN 325 MG TABLET PO PRN (22:45)
[2020-05-24] MEDS ORDERED: HYDROmorphone 2 MG/ML VIAL (DILAUDID) ONE (01:14)
[2020-05-24] MEDS ORDERED: HYDROmorphone 2 MG/ML VIAL (DILAUDID) IV ONE (01:15)
[2020-05-24 03:22] LABS: BASOPHILS # (AUTO) 0.1 10^3/uL (0.0-0.1); BASOPHILS % (AUTO) 0 % (0-10); EOSINOPHILS # (AUTO) 0.6 10^3/uL (0.0-0.3); EOSINOPHILS % (AUTO) 5 % (0-10); HEMATOCRIT 38 % (40-54); HEMOGLOBIN 12.7 g/dL (13.3-17.7); LYMPHOCYTES % (AUTO) 17 % (12-44); MEAN CORPUSCULAR HEMOGLOBIN 30 pg (25-34); MEAN CORPUSCULAR HGB CONC 33 g/dL (32-36); MEAN CORPUSCULAR VOLUME 89 fL (80-99); MONOCYTES # (AUTO) 0.9 10^3/uL (0.0-1.0); MONOCYTES % (AUTO) 8 % (0-12); NEUTROPHILS # (AUTO) 7.9 10^3/uL (1.8-7.8); NEUTROPHILS % (AUTO) 69 % (42-75); PLATELET COUNT 305 10^3/uL (130-400); WHITE BLOOD COUNT 11.4 10^3/uL (4.3-11.0)
[2020-05-24] MEDS: inSUlin ASPART (NovoLOG) 1 UNIT/0.01 ML (CHARGE PER UNIT) SC SCH ×6 (03:26→22:53)
[2020-05-24 03:46] LABS: ALBUMIN 3.1 GM/DL (3.2-4.5); CHLORIDE 108 MMOL/L (98-107); POTASSIUM 3.3 MMOL/L (3.6-5.0); SODIUM 138 MMOL/L (135-145)
[2020-05-24 03:47] LABS: CALCIUM 8.4 MG/DL (8.5-10.1)
[2020-05-24 03:48] LABS: GLUCOSE 197 MG/DL (70-105); TOTAL PROTEIN 6.3 GM/DL (6.4-8.2)
[2020-05-24 03:50] LABS: BILIRUBIN,TOTAL 0.5 MG/DL (0.1-1.0); CARBON DIOXIDE 19 MMOL/L (21-32)
[2020-05-24 03:52] LABS: ALKALINE PHOSPHATASE 73 U/L (40-136); CREATININE SERUM 0.85 MG/DL (0.60-1.30); GFR ESTIMATED > 60; PHOSPHORUS 2.2 MG/DL (2.3-4.7)
[2020-05-24 03:53] LABS: BUN/CREATININE RATIO 6
[2020-05-24 03:55] LABS: ALANINE AMINOTRANSFERASE 14 U/L (0-55); MAGNESIUM 1.7 MG/DL (1.6-2.4)
[2020-05-24] MEDS: KCL 20 MEQ TAB (K-DUR) PO SCH (04:23)
[2020-05-24] MEDS: MAGNESIUM 1 GM/100 ML IVPB 100 ML IV SCH (04:23)
--- NOTE | 2020-05-24 04:58 | Pulmonary Progress Note ---
Subjective Time Seen by a Provider: 04:55 Subjective/Events-last exam No complications noted. Sepsis Event Evaluation Height, Weight, BMI Height: 5'9.00" Weight: 247lbs. 7.0oz. 112.888436ov; 34.61 BMI Method:Stated Exam Exam Vital Signs Date Time Temp Pulse Resp B/P (MAP) Pulse Ox O2 Delivery O2 Flow Rate FiO2 05/24/20 04:16 93 24 155/92 (109) 95 Nasal Cannula 2.00 05/24/20 03:14 93 156/95 (114) 96 Nasal Cannula 2.00 05/24/20 02:00 79 17 140/66 (83) 90 Nasal Cannula 2.00 05/24/20 01:00 80 19 171/84 (113) 92 Nasal Cannula 2.00 05/24/20 01:00 80 05/24/20 00:00 79 9 142/75 (97) 94 Nasal Cannula 2.00 05/23/20 23:22 85 9 134/81 (105) 98 Nasal Cannula 2.00 05/23/20 23:19 88 19 158/110 (128) 93 Nasal Cannula 2.00 05/23/20 23:12 Nasal Cannula 2.00 05/23/20 22:00 95 13 185/86 (117) 95 Nasal Cannula 2.00 05/23/20 21:00 92 18 154/90 (104) 94 Nasal Cannula 2.00 05/23/20 21:00 Nasal Cannula 2.00 05/23/20 20:00 93 22 167/91 (114) 98 Nasal Cannula 2.00 05/23/20 19:14 37.1 Nasal Cannula 2.00 05/23/20 19:00 90 22 156/83 (111) 94 Nasal Cannula 2.00 05/23/20 19:00 90 05/23/20 18:00 85 19 159/87 (111) 94 Nasal Cannula 2.00 05/23/20 17:00 101 19 157/102 (120) 95 Nasal Cannula 2.00 05/23/20 16:11 37.2 05/23/20 16:00 96 22 168/91 (116) 96 Nasal Cannula 2.00 05/23/20 15:37 Nasal Cannula 2.00 05/23/20 15:00 92 18 164/91 (115) 97 Nasal Cannula 2.00 05/23/20 14:00 90 18 159/88 (111) 97 Nasal Cannula 2.00 05/23/20 13:00 05/23/20 13:00 95 16 184/100 (128) 97 Nasal Cannula 2.00 05/23/20 12:47 92 05/23/20 12:00 81 20 141/70 (93) 96 Nasal Cannula 2.00 05/23/20 11:29 37.3 05/23/20 11:07 Nasal Cannula 2.00 05/23/20 11:00 105 37 178/101 (126) 94 Nasal Cannula 2.00 05/23/20 10:00 104 28 175/99 (124) 93 Nasal Cannula 2.00 05/23/20 09:14 Nasal Cannula 2.00 05/23/20 09:00 101 26 171/99 (123) 91 Nasal Cannula 2.00 05/23/20 08:34 94 Nasal Cannula 3.00 05/23/20 08:00 96 24 176/89 (118) 92 Nasal Cannula 2.00 05/23/20 07:48 37.7 05/23/20 07:00 90 22 183/109 (133) 95 Nasal Cannula 2.00 05/23/20 06:40 93 05/23/20 06:00 86 20 181/101 (127) 96 Nasal Cannula 2.00 05/23/20 05:00 99 27 167/103 (124) 97 Nasal Cannula 2.00 I & O 05/24/20 07:00 Intake Total 2035 ml Balance 2035 ml Height & Weight Height: 5'9.00" Weight: 247lbs. 7.0oz. 112.053118sw; 34.61 BMI Method:Stated General Appearance: No Apparent Distress, WD/WN HEENT: PERRL/EOMI Neck: Full Range of Motion, Normal Inspection, Non Tender, Supple Respiratory: Chest Non Tender, Lungs Clear, Normal Breath Sounds, No Accessory Muscle Use, No Respiratory Distress Cardiovascular: Regular Rate, Rhythm, No Edema, No Gallop, No Murmur, Normal Peripheral Pulses Capillary Refill: Less Than 3 Seconds Extremity: Normal Capillary Refill, Normal Inspection, Normal Range of Motion, Non Tender, No Calf Tenderness Neurologic/Psychiatric: Alert, Oriented x3 Skin: Normal Color, Warm/Dry Results Lab Laboratory Tests 05/22/20 09:35 4/4/21 14:25 05/22/20 16:50 05/22/20 19:23 05/23/20 03:25 05/23/20 11:30 05/23/20 18:37 05/24/20 02:32 Assessment/Plan Assessment/Plan DKA -- resolved -Pt is off insulin gtt Metabolic acidosis -Betahydroxybuterate is now normal -Repeat UA and LA nausea-- improving Chest pain with a history of coronary artery disease -Cardiology following -Possible cath secondary to persistent CP Type 2 diabetes GIULIANA WARNER DO May 24, 2020 04:58
[2020-05-24] MEDS ORDERED: IBUPROFEN TABLET 200 MG TAB PO PRN (05:00)
[2020-05-24] MEDS: POTASSIUM CL 10MEQ/50ML IVPB 50 ML IV SCH ×6 (05:19→10:10)
[2020-05-24] MEDS: meTOprolol 5 MG/5 ML (LOPRESSOR) VIAL IV SCH ×4 (05:40→22:52)
[2020-05-24] MEDS: CEFEPIME INJECTION 1,000 MG in WATER (STERILE) FOR INJECTION 10 ML IV SCH ×4 (05:40→22:52)
[2020-05-24] MEDS ORDERED: hydrALAZINE (APESOLINE) 20 MG/ML VIAL IV SCH (06:00)
[2020-05-24 06:06] LABS: BILIRUBIN,URINE NEGATIVE (NEGATIVE); CLARITY,URINE CLEAR; COLOR,URINE YELLOW; GLUCOSE, URINE (UA) 3+ (NEGATIVE); KETONES,URINE NEGATIVE (NEGATIVE); LEUKOCYTE ESTERASE ,URINE NEGATIVE (NEGATIVE); NITRITE,URINE NEGATIVE (NEGATIVE); PROTEIN,URINE 2+ (NEGATIVE)
[2020-05-24 06:14] LABS: BACTERIA,URINE NEGATIVE /HPF; RBC,URINE RARE /HPF; SQUAMOUS EPITHELIAL CELL,UR 0-2 /HPF
--- NOTE | 2020-05-24 07:45 | Cardiology Progress Note ---
Subjective Date Seen by Provider: May 24, 2020 Time Seen by Provider: 07:30 Subjective/Events-last exam Mr. Laird was seen and examined in the ICU this am. States he has zero nausea or vomiting and would like to advance his diet. He still admits to some chest pain, rates it 2/10 on the pain scale. Does not increase with movement now. Review of Systems General: No Chills, No Night Sweats, No Fatigue, No Malaise, No Appetite, No Other HEENT: No Head Aches, No Visual Changes, No Eye Pain, No Ear Pain, No Dysphasia, No Sinus Congestion, No Post Nasal Drip, No Sore Throat, No Other Pulmonary: No Dyspnea, No Cough, No Pleuritic Chest Pain, No Other Cardiovascular: Chest Pain; No: Palpitations, Orthopnea, Paroxysmal Noc. Dyspnea, Edema, Lt Headedness, Other Focused Exam Lactate Level 05/24/20 06:04: Lactic Acid Level 1.61 Lactic Acid Level Laboratory Tests Test 05/24/20 06:04 Lactic Acid Level 1.61 MMOL/L (0.50-2.00) Objective-Cardiology Exam Last Set of Vital Signs Vital Signs 05/24/20 05/24/20 05/24/20 05:00 06:00 07:44 Temp 36.5 Pulse 81 Resp 16 B/P (MAP) 157/89 (111) Pulse Ox 95 O2 Delivery Nasal Cannula O2 Flow Rate 2.00 Capillary Refill : Less Than 3 Seconds I&O Intake and Output 05/24/20 00:00 Intake Total 2795 ml Balance 2795 ml Intake Oral 240 ml IV Total 2555 ml # Voids 6 # Bowel Movements 3 General: Alert, Oriented X3 HEENT: Atraumatic Neck: Supple, No JVD Lungs: Clear to Auscultation, Normal Air Movement Heart: Regular Rate, Normal S1, Normal S2 Abdomen: Normal Bowel Sounds, Soft Extremities: No Clubbing, No Cyanosis, Other (1+ pitting edema bilateral LE) Skin: No Rashes Neuro: Normal Gait, Normal Speech Psych/Mental Status: Mental Status NL, Mood NL Results Lab Laboratory Tests 05/23/20 11:30 05/23/20 18:37 05/24/20 02:32 A/P-Cardiology Admission Diagnosis Chest pain Coronary artery disease Hypertension Hyperlipidemia Assessment/Plan Chest pain, chronic stable angina, becoming more stable at this time, extensive history of coronary artery disease last cardiac catheterization was done in 2019 showing total occlusion of the right PDA, had history of stent placed in the mid right coronary artery and proximal circumflex artery that were patent, mild disease in the LAD. We will continue with medical therapy at this time, troponin has been negative. Conservative management is recommended DKA, improving slowly. Continue to monitor Hypertension, adding lisinopril 20 mg to his current medication, continue on Lopressor and hydralazine. Monitor blood pressure Hyperlipidemia, continue on statin Obstructive sleep apnea, managed by primary care physician Diabetes mellitus, managed by primary care team This is Dr. Ortega, I have reviewed and adjusted the note using italic font Supervisory-Addendum Brief Verification & Attestation Participated in pt care: history, MDM, physical Personally performed: exam, history, MDM, supervision of care Care discussed with: Medical Student Procedures: n/a Results interpretation: Verified all documentation Verification and Attestation of Medical Student E/M Service A medical student performed and documented this service in my presence. I reviewed and verified all information documented by the medical student and made modifications to such information, when appropriate. I personally performed the physical exam and medical decision making. Crow Ortega, May 24, 2020,08:58 DYLON FERRER, May 24, 2020 07:45 CROW ORTEGA MD May 24, 2020 08:58
[2020-05-24] MEDS: lisINopril 20 MG (PRINIVIL) TABLET PO SCH (08:21)
[2020-05-24] MEDS: hydrALAZINE (APESOLINE) 20 MG/ML VIAL IV PRN ×2 (08:21→14:39)
--- NOTE | 2020-05-24 08:25 | Diagnostic Imaging Report ---
INDICATION: Dyspnea. TECHNIQUE: Single view chest 3:48 AM. CORRELATION STUDY: 05/23/2020 FINDINGS: Heart size enlarged. Mediastinum prominent but appears generally stable. Asymmetric opacity of the right mid and lower lung field suspect for infiltrate. IMPRESSION: 1. Findings do suggest infiltrate at the right mid and basilar aspect. Follow-up imaging recommended. Dictated by: Dictated on workstation # [id number]
[2020-05-24] MEDS ORDERED: POTASSIUM PHOSPHATE INJ 30 MM in NS (IVPB) 250 ML IV ONE (09:00)
[2020-05-24] MEDS: D5 1/2 NS 1000 ML IV SOLUTION 1,000 ML IV SCH ×2 (10:10→20:03)
[2020-05-24] MEDS ORDERED: amLODIPine 5 MG (NORVASC) TAB PO ONE (10:15)
[2020-05-24] MEDS ORDERED: ACET-2840 PO (10:27)
[2020-05-24] MEDS ORDERED: FURO40TA4 PO (10:28)
[2020-05-24] MEDS ORDERED: MULT-1061 PO (10:29)
--- NOTE | 2020-05-24 11:19 | Progress Note - Hospitalist ---
DALE REMY, MED STUDENT 05/24/20 1119: Subjective HPI/CC On Admission This is a 59-year-old white male with a history of type 2 diabetes with previous DKA's.He presents to the emergency room with complaints of nausea and vomiting for the last 2 days. He is found to be with a low bicarb urine ketones and blood sugar of over 400. In addition he has been complaining of some left chest discomfort that radiates to the midsternal area. He denies that this has been associated with diaphoresis. He does note that he is somewhat more short of breath. Subjective/Events-last exam Patient doing well this morning. Reports improved nausea and vomiting. He was able to eat breakfast this morning. Chest pain is now a 2/10 but still constant and located mid chest. He denies radiation of the pain to anywhere. Review of Systems General: No Chills, No Night Sweats, No Fatigue, No Malaise, No Appetite, No Other HEENT: No Head Aches, No Visual Changes, No Eye Pain, No Ear Pain, No Dy sphasia, No Sinus Congestion, No Post Nasal Drip, No Sore Throat, No Other Pulmonary: No Dyspnea, No Cough, No Pleuritic Chest Pain, No Other Cardiovascular: Chest Pain Gastrointestinal: No: Nausea, Vomiting, Abdominal Pain, Diarrhea, Constipation, Melena, Hematochezia, Other Genitourinary: No Dysuria, No Frequency, No Incontinence, No Hematuria, No Retention, No Other Musculoskeletal: No: other, neck pain, shoulder pain, arm pain, back pain, hand pain, leg pain, foot pain Neurological: No: Weakness, Numbness, Incoordination, Change in speech, Confusion, Seizures, Other Focused Exam Lactate Level 05/24/20 06:04: Lactic Acid Level 1.61 Objective Exam Vital Signs Vital Signs Date Time Temp Pulse Resp B/P (MAP) Pulse Ox O2 Delivery O2 Flow Rate FiO2 05/24/20 11:00 98 180/98 (125) 99 Nasal Cannula 2.00 05/24/20 07:44 36.5 05/24/20 05:00 16 Capillary Refill : Less Than 3 Seconds General Appearance: No Apparent Distress, WD/WN Neck: Full Range of Motion, Normal Inspection, Non Tender, Supple Respiratory: Chest Non Tender, Lungs Clear, Normal Breath Sounds, No Accessory Muscle Use, No Respiratory Distress Cardiovascular: Regular Rate, Rhythm, No Edema, No Gallop, No JVD, No Murmur, Normal Peripheral Pulses Gastrointestinal: Normal Bowel Sounds, No Organomegaly, No Pulsatile Mass, Non Tender, Soft Extremity: Normal Capillary Refill, Normal Inspection, Normal Range of Motion, Non Tender, No Calf Tenderness Neurologic/Psychiatric: Alert, Oriented x3 Results/Procedures Lab Laboratory Tests 05/23/20 11:30 05/23/20 18:37 05/24/20 02:32 Patient resulted labs reviewed. Assessment/Plan Assessment and Plan Assess & Plan/Chief Complaint Bello Laird is a 59 y/o M w/ PMH of DMII, CAD, COPD, and HTN presenting for DKA and ACS r/o #DKA - Nausea and vomiting on admission, resolved this morning - Blood sugars >400 on admission - Blood sugars 150-200s overnight - Anion gap is 11 this morning - Bicarb 19 - K 3.4 - Insulin ggt discontinued yesterday Plan: > Goal blood sugars 120 - 150 > continue fluids > K replacement > Sliding scale insulin > DKA resolved #Chest pain - Characteristic of anginal chest pain - Stents placed in 2018, last C in 2019 -> recommended medical management - EKG w/o ST changes or T wave inversions - Troponin negative - BP as high as 194/101 overnight Plan: > Cardiology wants increased BP and blood sugar control prior to stress test > Restart amlodipine 5mg, increase metoprolol to 50 mg BID > Continue lisinopril 20mg #HTN - BP 157/87 this morning - HR 81 - Currently on metoprolol 10mg TID, lisinopril 20mg - Overnight BP included 194/101 Plan: > Restart amlodipine 5mg, increase metoprolol to 50 mg BID > Continue lisinopril 20mg SHEREEN DIANA DO 05/25/20 0602: Subjective HPI/CC On Admission Date Seen by Provider: May 24, 2020 Time Seen by Provider: 10:00 Subjective/Events-last exam Pt much better No more nausea and vomiting Home BP medication restarted Stress test will be done once he is stable Bicarb 19, anion gap is closed Review of Systems General: Fatigue Objective Exam General Appearance: No Apparent Distress, WD/WN, Chronically ill Respiratory: Lungs Clear Cardiovascular: Regular Rate, Rhythm Assessment/Plan Assessment and Plan Assess & Plan/Chief Complaint Monitor closely bicarb monitored Supervisory-Addendum Brief Verification & Attestation Participated in pt care: history, MDM, physical Personally performed: exam, history, MDM, supervision of care Care discussed with: Medical Student Procedures: n/a Results interpretation: Verified all documentation Verification and Attestation of Medical Student E/M Service A medical student performed and documented this service in my presence. I reviewed and verified all information documented by the medical student and made modifications to such information, when appropriate. I personally performed the physical exam and medical decision making. Shereen Diana, May 25, 2020,06:02 DALE REMY, MED STUDENT May 24, 2020 11:19 SHEREEN DIANA DO May 25, 2020 06:02
[2020-05-24] MEDS: ACETAMINOPHEN 325 MG TABLET PO PRN ×2 (14:48→20:48)
[2020-05-24] MEDS: ENOXAPARIN 40 MG/0.4 ML (LOVENOX) SYR SC SCH (17:28)
[2020-05-24] MEDS: ONDANSETRON 4 MG/2 ML (SDV) Z0FRAN IV PRN (19:42)
[2020-05-24] MEDS: PROMETHAZINE INJ 25 MG/ML (PHENERGAN) AMP IV PRN (21:26)
[2020-05-24] MEDS ORDERED: morphine INJ 10 MG/ML 1ML (SYR OR VIAL) IVP ONE (21:30)
[2020-05-25] MEDS: inSUlin ASPART (NovoLOG) 1 UNIT/0.01 ML (CHARGE PER UNIT) SC SCH ×6 (03:13→21:15)
--- NOTE | 2020-05-25 03:22 | Pulmonary Progress Note ---
FREDDY GOULD MED STUDENT 05/25/20 0322: Subjective Date Seen by a Provider: May 25, 2020 Time Seen by a Provider: 02:55 Subjective/Events-last exam Pt notes chills and mild generalized body aches, but no other complaints. Review of Systems General: Chills; No Night Sweats, No Fatigue; Malaise; No Appetite, No Other Pulmonary: No Dyspnea, No Cough, No Pleuritic Chest Pain, No Other Cardiovascular: No: Chest Pain, Palpitations, Orthopnea, Paroxysmal Noc. Dyspnea, Edema, Lt Headedness, Other Sepsis Event Evaluation Height, Weight, BMI Height: 5'9.00" Weight: 247lbs. 7.0oz. 112.382463cl; 34.61 BMI Method:Stated Focused Exam Lactate Level 05/24/20 06:04: Lactic Acid Level 1.61 Exam Exam Vital Signs Date Time Temp Pulse Resp B/P (MAP) Pulse Ox O2 Delivery O2 Flow Rate FiO2 05/25/20 03:08 36.2 05/25/20 03:02 Nasal Cannula 2.00 05/25/20 02:00 84 28 147/82 (106) 96 Nasal Cannula 2.00 05/25/20 01:00 84 12 146/102 (114) 96 Nasal Cannula 2.00 05/25/20 01:00 84 05/25/20 00:30 74 14 135/75 (97) 98 Nasal Cannula 2.00 05/24/20 23:30 Nasal Cannula 2.00 05/24/20 23:18 36.2 05/24/20 23:00 75 150/87 (108) 97 Nasal Cannula 2.00 05/24/20 22:12 90 18 143/80 (101) 96 Nasal Cannula 2.00 05/24/20 21:00 95 13 168/93 (117) 98 Nasal Cannula 2.00 05/24/20 20:41 Nasal Cannula 2.00 05/24/20 20:13 36.8 05/24/20 20:00 94 22 127/72 (102) 93 Nasal Cannula 2.00 05/24/20 19:00 86 05/24/20 19:00 86 20 130/63 (84) 95 Nasal Cannula 2.00 05/24/20 18:00 88 148/87 (107) 94 Nasal Cannula 2.00 05/24/20 17:00 101 142/89 (106) 97 Nasal Cannula 2.00 05/24/20 16:03 36.8 05/24/20 16:00 166/101 (122) 96 Nasal Cannula 2.00 05/24/20 15:00 101 176/88 (117) 95 Nasal Cannula 2.00 05/24/20 14:00 93 182/107 (132) 96 Nasal Cannula 2.00 05/24/20 13:00 90 97 Nasal Cannula 2.00 05/24/20 12:43 82 05/24/20 12:00 99 145/85 (105) 97 Nasal Cannula 2.00 05/24/20 11:39 36.3 05/24/20 11:00 98 180/98 (125) 99 Nasal Cannula 2.00 05/24/20 10:00 100 178/152 (161) 97 Nasal Cannula 2.00 05/24/20 09:00 94 174/104 (127) 97 Nasal Cannula 2.00 05/24/20 08:53 Nasal Cannula 2.00 05/24/20 08:00 Nasal Cannula 2.00 05/24/20 08:00 88 160/102 (121) 97 Nasal Cannula 2.00 05/24/20 07:44 36.5 05/24/20 07:00 81 193/103 (133) 93 Nasal Cannula 2.00 05/24/20 06:44 82 05/24/20 06:00 81 157/89 (111) 95 Nasal Cannula 2.00 05/24/20 05:00 91 16 173/102 (125) Nasal Cannula 2.00 05/24/20 04:16 93 24 155/92 (109) 95 Nasal Cannula 2.00 I & O 05/25/20 07:00 Intake Total 4200 ml Output Total 1500 ml Balance 2700 ml Height & Weight Height: 5'9.00" Weight: 247lbs. 7.0oz. 112.876809dx; 34.61 BMI Method:Stated General Appearance: No Apparent Distress, WD/WN HEENT: PERRL/EOMI Neck: Normal Inspection, Supple Respiratory: Lungs Clear, Normal Breath Sounds, No Accessory Muscle Use, No Respiratory Distress Cardiovascular: Regular Rate, Rhythm, No Murmur Capillary Refill: Less Than 3 Seconds Extremity: Normal Inspection, Non Tender, No Calf Tenderness, No Pedal Edema Neurologic/Psychiatric: Alert, Oriented x3, Normal Mood/Affect Skin: Normal Color, Warm/Dry Results Lab Laboratory Tests 05/23/20 03:25 05/23/20 11:30 05/23/20 18:37 05/24/20 02:32 Assessment/Plan Assessment/Plan DKA -- resolved -Pt is off insulin gtt Metabolic acidosis -Betahydroxybuterate is now normal -Repeat LA nausea-- improving Leukocytosis -continue Cefepime Chest pain with a history of coronary artery disease -Cardiology following -Dr. Ortega plans on medical management, no cath warranted Type 2 diabetes GIULIANA WARNER DO 05/25/20 0410: Assessment/Plan Assessment/Plan DKA -- resolved -Pt is off insulin gtt Metabolic acidosis -Betahydroxybuterate is now normal -Repeat LA nausea-- improving Leukocytosis -continue Cefepime Chest pain with a history of coronary artery disease -Cardiology following -Dr. Ortega plans on medical management, no cath warranted Type 2 diabetes Pt is improved. Will transfer to [facility] and I am going to sign off after pt transfers. Please call with any questions or concerns. FREDDY GOULD MED STUDENT May 25, 2020 03:22 GIULIANA WARNER DO May 25, 2020 04:10
[2020-05-25 03:51] LABS: BASOPHILS # (AUTO) 0.1 10^3/uL (0.0-0.1); BASOPHILS % (AUTO) 1 % (0-10); EOSINOPHILS # (AUTO) 0.7 10^3/uL (0.0-0.3); EOSINOPHILS % (AUTO) 7 % (0-10); HEMATOCRIT 38 % (40-54); HEMOGLOBIN 12.6 g/dL (13.3-17.7); LYMPHOCYTES # (AUTO) 1.5 10^3/uL (1.0-4.0); LYMPHOCYTES % (AUTO) 15 % (12-44); MEAN CORPUSCULAR HEMOGLOBIN 30 pg (25-34); MEAN CORPUSCULAR HGB CONC 33 g/dL (32-36); MEAN CORPUSCULAR VOLUME 91 fL (80-99); MEAN PLATELET VOLUME 9.3 fL (9.0-12.2); MONOCYTES # (AUTO) 0.8 10^3/uL (0.0-1.0); MONOCYTES % (AUTO) 8 % (0-12); NEUTROPHILS # (AUTO) 6.8 10^3/uL (1.8-7.8); NEUTROPHILS % (AUTO) 69 % (42-75); PLATELET COUNT 284 10^3/uL (130-400); WHITE BLOOD COUNT 9.9 10^3/uL (4.3-11.0)
[2020-05-25 04:00] LABS: CHLORIDE 107 MMOL/L (98-107); POTASSIUM 4.2 MMOL/L (3.6-5.0); SODIUM 139 MMOL/L (135-145)
[2020-05-25 04:02] LABS: CALCIUM 8.6 MG/DL (8.5-10.1)
[2020-05-25 04:03] LABS: GLUCOSE 134 MG/DL (70-105); TOTAL PROTEIN 6.4 GM/DL (6.4-8.2)
[2020-05-25 04:04] LABS: CARBON DIOXIDE 21 MMOL/L (21-32)
[2020-05-25 04:05] LABS: BILIRUBIN,TOTAL 0.6 MG/DL (0.1-1.0)
[2020-05-25 04:06] LABS: ALKALINE PHOSPHATASE 72 U/L (40-136); PHOSPHORUS 3.5 MG/DL (2.3-4.7)
[2020-05-25 04:07] LABS: CREATININE SERUM 0.85 MG/DL (0.60-1.30); GFR ESTIMATED > 60
[2020-05-25 04:08] LABS: BUN/CREATININE RATIO 5
[2020-05-25 04:09] LABS: ALANINE AMINOTRANSFERASE 14 U/L (0-55); MAGNESIUM 1.7 MG/DL (1.6-2.4)
[2020-05-25] MEDS: KCL 20 MEQ TAB (K-DUR) PO SCH (04:16)
[2020-05-25] MEDS: meTOprolol 5 MG/5 ML (LOPRESSOR) VIAL IV SCH ×4 (04:45→23:30)
[2020-05-25] MEDS: CEFEPIME INJECTION 1,000 MG in WATER (STERILE) FOR INJECTION 10 ML IV SCH ×4 (04:45→23:24)
[2020-05-25] MEDS: ACETAMINOPHEN 325 MG TABLET PO PRN ×3 (06:05→22:11)
--- NOTE | 2020-05-25 07:42 | Cardiology Progress Note ---
Subjective Date Seen by Provider: May 25, 2020 Time Seen by Provider: 07:19 Subjective/Events-last exam Mr. Laird was seen and examined on 4th floor today. He states he is feeling much improved and even shaved this morning. Consistent chest pain at 2/10 on pain scale, centralized and does not increase with movement. Received morphine yesterday and that seemed to help with the pain. States he has been having some chills off and on. Had episodes of nausea yesterday that improved with Zofran. Feels like he is ready to go home. Understands conservative management for chest pain at this time. Review of Systems General: No Chills, No Night Sweats, No Fatigue, No Malaise, No Appetite, No Other HEENT: No Head Aches, No Visual Changes, No Eye Pain, No Ear Pain, No D ysphasia, No Sinus Congestion, No Post Nasal Drip, No Sore Throat, No Other Pulmonary: No Dyspnea, No Cough, No Pleuritic Chest Pain, No Other Cardiovascular: No: Chest Pain, Palpitations, Orthopnea, Paroxysmal Noc. Dyspnea, Edema, Lt Headedness, Other Focused Exam Lactate Level 05/24/20 06:04: Lactic Acid Level 1.61 Objective-Cardiology Exam Last Set of Vital Signs Vital Signs 05/25/20 05/25/20 12:00 15:50 Temp 36.6 Pulse 96 Resp 16 B/P (MAP) 151/82 (105) Pulse Ox 97 O2 Delivery Room Air O2 Flow Rate 2.00 Capillary Refill : Less Than 3 Seconds I&O Intake and Output 05/25/20 00:00 Intake Total 4530 ml Output Total 2450 ml Balance 2080 ml Intake Oral 2120 ml IV Total 2410 ml Output Urine Total 2450 ml # Voids 10 General: Alert, Oriented X3 HEENT: Atraumatic Neck: Supple, No JVD Lungs: Clear to Auscultation, Normal Air Movement Heart: Regular Rate, Normal S1, Normal S2 Abdomen: Normal Bowel Sounds, Soft Extremities: No Clubbing, No Cyanosis, Other (1+ pitting edema bilateral LE) Skin: No Rashes Neuro: Normal Gait, Normal Speech Psych/Mental Status: Mental Status NL, Mood NL Results Lab Laboratory Tests 05/25/20 03:44 A/P-Cardiology Admission Diagnosis DKA Chest pain Coronary artery disease Hypertension Hyperlipidemia Assessment/Plan Chest pain, chronic stable angina, extensive history of coronary artery disease last cardiac catheterization was done in 2019 showing total occlusion of the right PDA, history of stent placed in the mid right coronary artery and proximal circumflex artery that were patent, mild disease in the LAD. We will continue with medical therapy at this time, troponin has been negative on 05/22. Continue with conservative management. DKA, improving slowly. Gap closed and off of insulin drip. On subQ insulin now. Continue to monitor Hypertension, refractory hypertension, added lisinopril 20 mg to his current medication, continue on Lopressor and hydralazine. Monitor blood pressure Hyperlipidemia, continue on statin Obstructive sleep apnea, managed by primary care physician, continue using O2 at night. Diabetes mellitus, managed by primary care team Patient was seen and evaluated, agree with the current note I made few modification using a tonic-clonic Patient has mild epigastric discomfort, reporting mild chest pain on and off Overall reporting improvement Blood sugar has been under better control From cardiac status he has been stable. Cardiac enzymes has been negative Okay for discharge and follow-up as an outpatient Supervisory-Addendum Brief Verification & Attestation Participated in pt care: history, MDM, physical Personally performed: exam, history, MDM, supervision of care Care discussed with: Medical Student Procedures: n/a Results interpretation: Verified all documentation Verification and Attestation of Medical Student E/M Service A medical student performed and documented this service in my presence. I reviewed and verified all information documented by the medical student and made modifications to such information, when appropriate. I personally performed the physical exam and medical decision making. Crow Ortega, May 25, 2020,16:16 DYLON FERRER, May 25, 2020 7:42 am CROW ORTEGA MD May 25, 2020 4:16 pm
--- NOTE | 2020-05-25 07:56 | Diagnostic Imaging Report ---
INDICATION: Dyspnea. Time of exam: 3:11 AM Correlation is made with prior chest one day earlier. Airspace infiltrate right midlung persists. Left lung is clear. There is no effusion or pneumothorax. Heart size is stable. IMPRESSION: Stable right-sided infiltrate when compared with exam 1 day earlier. Dictated by: Dictated on workstation # [id number]
[2020-05-25] MEDS: lisINopril 20 MG (PRINIVIL) TABLET PO SCH (08:48)
[2020-05-25] MEDS ORDERED: amLODIPine 5 MG (NORVASC) TAB PO SCH (09:00)
[2020-05-25] MEDS: ONDANSETRON 4 MG/2 ML (SDV) Z0FRAN IV PRN (11:00)
--- NOTE | 2020-05-25 11:54 | Progress Note - Hospitalist ---
DALE REMY, MED STUDENT 05/25/20 1154: Subjective HPI/CC On Admission This is a 59-year-old white male with a history of type 2 diabetes with previous DKA's.He presents to the emergency room with complaints of nausea and vomiting for the last 2 days. He is found to be with a low bicarb urine ketones and blood sugar of over 400. In addition he has been complaining of some left chest discomfort that radiates to the midsternal area. He denies that this has been associated with diaphoresis. He does note that he is somewhat more short of breath. Subjective/Events-last exam Doing well this morning, able to eat food without a problem. Had 2 episodes of vomiting which were associated with a headache. Resolution of headache led to decreased vomiting. Chest pain is still present and rated as a 2/10. It is described as a pressure located in the central chest, not associated with radiation anywhere. Review of Systems General: No Chills, No Night Sweats, No Fatigue, No Malaise, No Appetite, No Other HEENT: No Head Aches, No Visual Changes, No Eye Pain, No Ear Pain, No Dy sphasia, No Sinus Congestion, No Post Nasal Drip, No Sore Throat, No Other Pulmonary: No Dyspnea, No Cough, No Pleuritic Chest Pain, No Other Cardiovascular: Chest Pain; No: Palpitations, Orthopnea, Paroxysmal Noc. Dyspnea, Edema, Lt Headedness, Other Gastrointestinal: Nausea, Vomiting Genitourinary: No Dysuria, No Frequency, No Incontinence, No Hematuria, No Retention, No Other Musculoskeletal: No: other, neck pain, shoulder pain, arm pain, back pain, hand pain, leg pain, foot pain Neurological: No: Weakness, Numbness, Incoordination, Change in speech, Confusion, Seizures, Other Focused Exam Lactate Level 05/24/20 06:04: Lactic Acid Level 1.61 Objective Exam Vital Signs Vital Signs Date Time Temp Pulse Resp B/P (MAP) Pulse Ox O2 Delivery O2 Flow Rate FiO2 05/25/20 09:00 Nasal Cannula 2.00 05/25/20 08:00 36.4 98 20 149/80 (103) 95 Capillary Refill : Less Than 3 Seconds General Appearance: No Apparent Distress, WD/WN Neck: Full Range of Motion, Normal Inspection, Non Tender, Supple Respiratory: Chest Non Tender, Lungs Clear, Normal Breath Sounds, No Accessory Muscle Use, No Respiratory Distress Cardiovascular: Regular Rate, Rhythm, No Edema, No Gallop, No JVD, No Murmur, Normal Peripheral Pulses Gastrointestinal: Normal Bowel Sounds, No Organomegaly, No Pulsatile Mass, Non Tender, Soft Rectal: Normal Exam Extremity: Normal Capillary Refill, Normal Inspection, Normal Range of Motion, Non Tender Neurologic/Psychiatric: Alert, Oriented x3 Skin: Normal Color, Warm/Dry Results/Procedures Lab Laboratory Tests 05/25/20 03:44 Patient resulted labs reviewed. Assessment/Plan Assessment and Plan Assess & Plan/Chief Complaint Bello Laird is a 59 y/o M w/ PMH of DMII, CAD, COPD, and HTN presenting for DKA and ACS r/o #DKA - Nausea and vomiting on admission, resolved this morning - Blood sugars >400 on admission - Blood sugars 150-200s overnight - Anion gap is 11 this morning - Bicarb 19 - K 3.4 - Insulin ggt discontinued yesterday Plan: > Goal blood sugars 120 - 150 > continue fluids > K replacement > Sliding scale insulin > DKA resolved #Chest pain - Characteristic of anginal chest pain - Stents placed in 2018, last C in 2019 -> recommended medical management - EKG w/o ST changes or T wave inversions - Troponin negative - BP as high as 194/101 overnight Plan: > Cardiology wants increased BP and blood sugar control prior to stress test > Continue amlodipine 5mg, increase metoprolol to 50 mg BID > Continue lisinopril 20mg #HTN - BP 161/89 this morning - HR 87 - Currently on metoprolol 10mg TID, lisinopril 20mg - Overnight BP high was 168/93 Plan: > Continue amlodipine 5mg, increase metoprolol to 50 mg BID > Continue lisinopril 20mg #Pneumonia - CXR showed right middle lobe infiltrate - Fever + WBC yesterday - Started on Cefepime - Improved Temp (36.2), and WBC count (9.9) today Plan: > Continue Cefepime > Switch to Cefdinir + azithromycin tomorrow Dispo: Discharge tomorrow SHEREEN DIANA DO 05/26/20 0514: Subjective HPI/CC On Admission Date Seen by Provider: May 26, 2020 Time Seen by Provider: 10:00 Subjective/Events-last exam Pt feels much better Moved down to fourth floor Bicarb is 21 Blood sugar is much better controlled Had another emesis episode today Review of Systems General: Fatigue Objective Exam General Appearance: No Apparent Distress, WD/WN, Chronically ill Respiratory: Lungs Clear Cardiovascular: Regular Rate, Rhythm Neurologic/Psychiatric: Alert, Oriented x3, No Motor/Sensory Deficits, Normal Mood/Affect Assessment/Plan Assessment and Plan Assess & Plan/Chief Complaint Abx Monitor sugars Supervisory-Addendum Brief Verification & Attestation Participated in pt care: history, MDM, physical Personally performed: exam, history, MDM, supervision of care Care discussed with: Medical Student Procedures: n/a Results interpretation: Verified all documentation Verification and Attestation of Medical Student E/M Service A medical student performed and documented this service in my presence. I reviewed and verified all information documented by the medical student and made modifications to such information, when appropriate. I personally performed the physical exam and medical decision making. Shereen Diana, May 26, 2020,05:13 DALE REMY, MED STUDENT May 25, 2020 11:54 SHEREEN DIANA DO May 26, 2020 05:14
[2020-05-25] MEDS: PROMETHAZINE INJ 25 MG/ML (PHENERGAN) AMP IV PRN (14:24)
[2020-05-25] MEDS: ENOXAPARIN 40 MG/0.4 ML (LOVENOX) SYR SC SCH (16:10)
[2020-05-26] MEDS: CEFEPIME INJECTION 1,000 MG in WATER (STERILE) FOR INJECTION 10 ML IV SCH ×2 (05:32→12:19)
[2020-05-26] MEDS: meTOprolol 5 MG/5 ML (LOPRESSOR) VIAL IV SCH (05:35)
[2020-05-26] MEDS: ACETAMINOPHEN 325 MG TABLET PO PRN (05:35)
[2020-05-26 06:04] LABS: BASOPHILS % (AUTO) 1 % (0-10); EOSINOPHILS # (AUTO) 0.6 10^3/uL (0.0-0.3); EOSINOPHILS % (AUTO) 8 % (0-10); HEMATOCRIT 35 % (40-54); HEMOGLOBIN 11.4 g/dL (13.3-17.7); LYMPHOCYTES # (AUTO) 1.2 10^3/uL (1.0-4.0); LYMPHOCYTES % (AUTO) 15 % (12-44); MEAN CORPUSCULAR HEMOGLOBIN 29 pg (25-34); MEAN CORPUSCULAR HGB CONC 33 g/dL (32-36); MEAN CORPUSCULAR VOLUME 89 fL (80-99); MEAN PLATELET VOLUME 9.8 fL (9.0-12.2); MONOCYTES # (AUTO) 0.8 10^3/uL (0.0-1.0); MONOCYTES % (AUTO) 10 % (0-12); NEUTROPHILS # (AUTO) 4.9 10^3/uL (1.8-7.8); NEUTROPHILS % (AUTO) 66 % (42-75); PLATELET COUNT 293 10^3/uL (130-400); WHITE BLOOD COUNT 7.5 10^3/uL (4.3-11.0)
[2020-05-26 06:10] LABS: ALBUMIN 2.8 GM/DL (3.2-4.5); CHLORIDE 105 MMOL/L (98-107); POTASSIUM 3.6 MMOL/L (3.6-5.0); SODIUM 138 MMOL/L (135-145)
[2020-05-26 06:11] LABS: CALCIUM 8.3 MG/DL (8.5-10.1)
[2020-05-26 06:12] LABS: GLUCOSE 175 MG/DL (70-105)
[2020-05-26 06:13] LABS: CARBON DIOXIDE 21 MMOL/L (21-32)
[2020-05-26 06:14] LABS: BILIRUBIN,TOTAL 0.5 MG/DL (0.1-1.0)
[2020-05-26 06:15] LABS: PHOSPHORUS 2.9 MG/DL (2.3-4.7)
[2020-05-26 06:16] LABS: ALKALINE PHOSPHATASE 81 U/L (40-136); CREATININE SERUM 0.92 MG/DL (0.60-1.30); GFR ESTIMATED > 60
[2020-05-26 06:17] LABS: BUN/CREATININE RATIO 7
[2020-05-26 06:18] LABS: MAGNESIUM 1.8 MG/DL (1.6-2.4)
[2020-05-26 06:19] LABS: ALANINE AMINOTRANSFERASE 13 U/L (0-55)
[2020-05-26] MEDS: inSUlin ASPART (NovoLOG) 1 UNIT/0.01 ML (CHARGE PER UNIT) SC SCH ×2 (06:31→12:10)
[2020-05-26] MEDS: KCL 20 MEQ TAB (K-DUR) PO SCH (06:41)
[2020-05-26] MEDS ORDERED: MULTIVIT W/MINERALS TAB (THERAGRAN M) PO SCH (07:00)
--- NOTE | 2020-05-26 07:54 | Cardiology Progress Note ---
Subjective Date Seen by Provider: May 26, 2020 Time Seen by Provider: 06:50 Subjective/Events-last exam Mr. Laird was seen and examined this morning. He states he is ready to return home today. Admits to centralized chest pain, still rates it a 2/10. Denies shortness of breath. Review of Systems General: No Chills, No Night Sweats, No Fatigue, No Malaise, No Appetite, No Other HEENT: No Head Aches, No Visual Changes, No Eye Pain, No Ear Pain, No Dysphasia, No Sinus Congestion, No Post Nasal Drip, No Sore Throat, No Other Pulmonary: No Dyspnea, No Cough, No Pleuritic Chest Pain, No Other Cardiovascular: Chest Pain; No: Palpitations, Orthopnea, Paroxysmal Noc. Dyspnea, Edema, Lt Headedness, Other Focused Exam Lactate Level 05/24/20 06:04: Lactic Acid Level 1.61 Objective-Cardiology Exam Last Set of Vital Signs Vital Signs 05/25/20 05/26/20 12:00 11:17 Temp 36.5 Pulse 81 Resp 18 B/P (MAP) 139/65 (89) Pulse Ox 93 O2 Delivery Room Air O2 Flow Rate 2.00 Capillary Refill : Less Than 3 Seconds I&O Intake and Output 05/26/20 00:00 Intake Total 2562 ml Balance 2562 ml Intake Oral 2542 ml IV Total 20 ml # Voids 10 # Bowel Movements 2 General: Alert, Oriented X3 HEENT: Atraumatic, PERRLA Neck: Supple, No JVD Lungs: Clear to Auscultation, Normal Air Movement Heart: Regular Rate, Normal S1, Normal S2 Abdomen: Normal Bowel Sounds, Soft Extremities: No Clubbing, No Cyanosis, Other (1+ pitting edema bilateral LE) Skin: No Rashes Neuro: Normal Gait, Normal Speech Psych/Mental Status: Mental Status NL, Mood NL Results Lab Laboratory Tests 05/26/20 05:25 A/P-Cardiology Admission Diagnosis DKA Chest pain Coronary artery disease Hypertension Hyperlipidemia Assessment/Plan Chest pain, chronic stable angina, extensive history of coronary artery disease last cardiac catheterization was done in 2019 showing total occlusion of the right PDA, history of stent placed in the mid right coronary artery and proximal circumflex artery that were patent, mild disease in the LAD. We will continue with medical therapy at this time, troponin has been negative on 05/22. Okay for discharge from cardiology standpoint and follow-up as an outpatient DKA, resolved, followed and monitored by primary care physician Hypertension, refractory hypertension, added lisinopril 20 mg to his current medication, continue on Lopressor and hydralazine. Improved blood pressure 05/26. Hyperlipidemia, continue on statin Obstructive sleep apnea, managed by primary care physician, continue using O2 at night. Diabetes mellitus, managed by primary care team Supervisory-Addendum Brief Verification & Attestation Participated in pt care: history, MDM, physical Personally performed: exam, history, MDM, supervision of care Care discussed with: Medical Student Procedures: n/a Results interpretation: Verified all documentation Verification and Attestation of Medical Student E/M Service A medical student performed and documented this service in my presence. I reviewed and verified all information documented by the medical student and made modifications to such information, when appropriate. I personally performed the physical exam and medical decision making. Crow Ortega, May 26, 2020,12:32 DYLON FERRER, May 26, 2020 7:54 am CROW ORTEGA MD May 26, 2020 12:32 pm
[2020-05-26] MEDS ORDERED: metFORMIN 500 MG (GLUCOPHAGE) TAB PO SCH (08:00)
[2020-05-26] MEDS ORDERED: ACETAMINOPHEN 500 MG TAB (TYLENOL) PO PRN (08:01)
[2020-05-26] MEDS: lisINopril 20 MG (PRINIVIL) TABLET PO SCH (08:48)
[2020-05-26] MEDS ORDERED: amLODIPine 10 MG (NORVASC) TAB PO SCH ×2 (09:00)
[2020-05-26] MEDS ORDERED: meTOprolol TARTRATE 50 MG (LOPRESSOR) TAB PO SCH ×2 (09:00)
[2020-05-26] MEDS ORDERED: FUROSEMIDE 40 MG (LASIX) TAB PO SCH (09:00)
[2020-05-26] MEDS ORDERED: LOSARTAN 100 MG (COZAAR) TABLET PO SCH (09:00)
[2020-05-26] MEDS ORDERED: GLIMEPIRIDE 1 MG (AMARYL) TAB PO SCH (09:00)
[2020-05-26] MEDS ORDERED: CLOPIDOGREL 75 MG (PLAVIX) TABLET PO SCH (09:00)
[2020-05-26] MEDS ORDERED: KCL 10 MEQ TAB (MICRO K) PO SCH (09:00)
[2020-05-26] MEDS ORDERED: OMEGA 3 (FISH OIL) 1000 MG CAP PO SCH (09:00)
[2020-05-26] MEDS ORDERED: LINAGLIPTIN (TRADJENTA) 5 MG TABLET PO SCH (09:00)
[2020-05-26] MEDS ORDERED: DULoxetine 30 MG (CYMBALTA) CAP PO SCH (09:00)
[2020-05-26] MEDS ORDERED: CEFD300C3 PO (11:46)
[2020-05-26] MEDS ORDERED: NITR0.4T42 SL (11:46)
--- NOTE | 2020-05-26 11:47 | Discharge Summary ---
Discharge Summary Hospital Course Was the Problem List Reviewed?: Yes Problems/Dx: (1) Right lower lobe pneumonia Status: Acute (2) Nausea & vomiting Status: Acute (3) DKA, type 2 Status: Acute Qualifiers: Qualified Codes: E11.10 - Type 2 diabetes mellitus with ketoacidosis without coma (4) CAD (coronary artery disease) Status: Acute Hospital Course Date of Admission: May 22, 2020 at 12:55 Admission Diagnosis : Family Physician/Provider: Socrates Hurtado MD Date of Discharge: 05/26/20 Discharge Diagnosis: DKA, N/V, CAD needs CABG Hospital Course: Mr. Laird is a 59 y/o M w/ PMH of DMII, CAD, COPD, HTN who presented to the ED on 05/22 for nausea, vomiting, and chest pain. At that time, Mr. Laird was found to be in DKA with blood sugars in the 400's, ketones in his urine, bicarb at 18 and he was subsequently admitted to the ICU. On admission, Mr. Laird's vital signs included hypertension at 181/101 and th remaining vitals were unremarkable. Mr. Laird was started on an insulin drip, fluids, and K replacement for a K of 3.4 on admission. For Mr. Laird's chest pain, his EKG was unremarkable for ST changes, T wave inversions, and serial troponins have been negative. Cardiology was consulted and recommended medical management of his chest pain and follow up patient with an outpatient stress test. Per left heart cath from 2019, Mr. 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 Cardiology recommends a bypass to have this corrected. During Mr. Laird's stay he did develop an elevated white count at 11.4, fever at 37.3, and a CXR done showed concern for right middle lobe pneumonia. He was subsequently started on Cefepime of which he completed 3 days. He is being discharged with PO Cefdinir of which he will need to complete the remaining course. Mr. Laird's blood pressure has been difficult to control during his admission and the usage of Metoprolol 50mg, Amlodipine 10mg, Losartan 100mg resulted in blood pressure readings between 140s-160/80s-90s. On discharge Mr. Laird has resolved DKA, was restarted on his home medications but will need to complete his antibiotic course. Mr. Laird will need to follow up with his PCP, Dr. Socrates Hurtado, for blood pressure and blood sugar control and with Dr. Ortega for his outpatient stress test and referral for bypass. DALE REMY, MED STUDENT Labs and Pending Lab Test: Laboratory Tests 05/25/20 13:57: Beta-Hydroxybutyrate (Chem panel) 0.09 05/25/20 15:15: Glucometer 194H 05/25/20 20:20: Glucometer 260H 05/26/20 05:25: White Blood Count 7.5, Red Blood Count 3.91L, Hemoglobin 11.4L, Hematocrit 35L, Mean Corpuscular Volume 89, Mean Corpuscular Hemoglobin 29, Mean Corpuscular Hemoglobin Concent 33, Red Cell Distribution Width 13.0, Platelet Count 293, Mean Platelet Volume 9.8, Immature Granulocyte % (Auto) 0, Neutrophils (%) (Auto) 66, Lymphocytes (%) (Auto) 15, Monocytes (%) (Auto) 10, Eosinophils (%) (Auto) 8, Basophils (%) (Auto) 1, Neutrophils # (Auto) 4.9, Lymphocytes # (Auto) 1.2, Monocytes # (Auto) 0.8, Eosinophils # (Auto) 0.6H, Basophils # (Auto) 0.0, Immature Granulocyte # (Auto) 0.0, Sodium Level 138, Potassium Level 3.6, Ch loride Level 105, Carbon Dioxide Level 21, Anion Gap 12, Blood Urea Nitrogen 6L, Creatinine 0.92, Estimat Glomerular Filtration Rate > 60, BUN/Creatinine Ratio 7, Glucose Level 175H, Calcium Level 8.3L, Corrected Calcium 9.3, Phosphorus Level 2.9, Magnesium Level 1.8, Total Bilirubin 0.5, Aspartate Amino Transf (AST/SGOT) 15, Alanine Aminotransferase (ALT/SGPT) 13, Alkaline Phosphatase 81, Total Protein 6.0L, Albumin 2.8L 05/26/20 11:23: Glucometer 236H Microbiology 05/22/20 MRSA Screen - Final, Complete MRSA not isolated Home Meds Active Reported Centrum Silver Men Tablet (Multivit-Min/FA/Lycopen/Lutein) 1 Each Tablet 1 Each PO DAILY Furosemide 40 Mg Tablet 40 Mg PO DAILY Tylenol 8 Hour (Acetaminophen) 650 Mg Tablet.er 1,300 Mg PO Q6H PRN Duloxetine HCl 60 Mg Capsule.dr 60 Mg PO 0900,1700 LAST FILLED 04-05-2020 #60/30 DAY SUPPLY Potassium Chloride 10 Meq Tab.er.prt 10 Meq PO DAILY Metoprolol Tartrate 50 Mg Tablet 50 Mg PO 0900,1700 Losartan Potassium 100 Mg Tablet 100 Mg PO DAILY Levemir Flextouch (Insulin Detemir) 100 Unit/1 Ml Insuln.pen 15 Unit SQ HS LAST FILLED 11/10/2019 #5 PENS 100 DAY SUPPLY Amaryl (Glimepiride) 1 Mg Tab 1 Mg PO DAILY Lipitor (Atorvastatin Calcium) 40 Mg Tablet 40 Mg PO HS Amlodipine Besylate 10 Mg Tablet 10 Mg PO DAILY [place] 3 1,000 mg Softgel ([place]-3 Fatty Acids/Fish Oil) 1 Each Capsule 1 Each PO DAILY Janumet 50-1,000 mg Tablet (Sitagliptin Phos/Metformin HCl) 1 Each Tablet 1 Each PO 0900,1700 Plavix (Clopidogrel Bisulfate) 75 Mg Tablet 75 Mg PO DAILY Assessment/Pt Instructions [facility] 1 week Discharge Planning: <30 minutes discharge planning Discharge Instructions Discharge Diet: ADA Diet, Cardiac Diet Discharge Physical Examination Vital Signs Vital Signs Date Time Temp Pulse Resp B/P (MAP) Pulse Ox O2 Delivery O2 Flow Rate FiO2 05/26/20 11:17 36.5 81 18 139/65 (89) 93 Room Air 05/25/20 12:00 2.00 General Appearance: No Apparent Distress, WD/WN, Chronically ill Respiratory: Lungs Clear Cardiovascular: Regular Rate, Rhythm Gastrointestinal: Normal Bowel Sounds Allergies: Coded Allergies: aspirin (Verified Allergy, Severe, 12/10/17) egg (Verified Allergy, Intermediate, Vomiting, 03/21/20) Penicillins (Unverified Allergy, Unknown, 07/19/13) Sulfa (Sulfonamide Antibiotics) (Unverified Allergy, Unknown, 07/19/13) lactose (Unverified Allergy, Unknown, 12/10/17) CAUSES GAS lidocaine (Verified Allergy, Unknown, 01/06/16) peanut (Unverified Allergy, Unknown, air closes off, 07/19/13) strawberry (Unverified Allergy, Unknown, airway closes off, 07/19/13) codeine (Unverified Adverse Reaction, Mild, NAUSEA, 02/03/14) Uncoded Allergies: ENVIRONMENTAL (Allergy, Unknown, 07/19/13) raw egg whites (Adverse Reaction, Unknown, upset stomach, 12/09/17) Discharge Summary Date of Admission May 22, 2020 at 12:55 Date of Discharge Discharge Date: May 26, 2020 Admission Diagnosis Mild diabetic ketoacidosis Chest pain with a history of coronary artery disease Type 2 diabetes Plan to admit to the ICU on insulin drip consult cardiology and rule out myocardial infarction Discharge Diagnosis Abx Monitor sugars DEIRDRE DIANA DO May 26, 2020 11:47
--- NOTE | 2020-05-26 12:42 | Progress Note ---
DALE REMY, MED STUDENT 05/26/20 1242: Progress Note Mr. Laird is a 59 y/o M w/ PMH of DMII, CAD, COPD, HTN who presented to the ED on 05/22 for nausea, vomiting, and chest pain. At that time, Mr. Laird was found to be in DKA with blood sugars in the 400's, ketones in his urine, bicarb at 18 and he was subsequently admitted to the ICU. On admission, Mr. Laird's vital signs included hypertension at 181/101 and th remaining vitals were unremarkable. Mr. Laird was started on an insulin drip, fluids, and K replacement for a K of 3.4 on admission. For Mr. Laird's chest pain, his EKG was unremarkable for ST changes, T wave inversions, and serial troponins have been negative. Cardiology was consulted and recommended medical management of his chest pain and follow up patient with an outpatient stress test. Per left heart cath from 2019, Mr. 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 Cardiology recommends a bypass to have this corrected. During Mr. Laird's stay he did develop an elevated white count at 11.4, fever at 37.3, and a CXR done showed concern for right middle lobe pneumonia. He was subsequently started on Cefepime of which he completed 3 days. He is being discharged with PO Cefdinir of which he will need to complete the remaining course. Mr. Laird's blood pressure has been difficult to control during his admission and the usage of Met oprolol 50mg, Amlodipine 10mg, Losartan 100mg resulted in blood pressure readings between 140s-160/80s-90s. On discharge Mr. Laird has resolved DKA, was restarted on his home medications but will need to complete his antibiotic course. Mr. Laird will need to follow up with his PCP, Dr. Socrates Hurtado, for blood pressure and blood sugar control and with Dr. Ortega for his outpatient stress test and referral for bypass. SHEREEN DIANA DO 05/27/20 0552: Supervisory-Addendum Brief Verification & Attestation Participated in pt care: history, MDM, physical Personally performed: exam, history, MDM, supervision of care Care discussed with: Medical Student Procedures: n/a Results interpretation: Verified all documentation Verification and Attestation of Medical Student E/M Service A medical student performed and documented this service in my presence. I reviewed and verified all information documented by the medical student and made modifications to such information, when appropriate. I personally performed the physical exam and medical decision making. Shereen Diana, May 27, 2020,05:52 DALE REMY, MED STUDENT May 26, 2020 12:42 SHEREEN DIANA DO May 27, 2020 05:52
[2020-05-26] MEDS ORDERED: LIDOCAINE/EPI 1%-1:100,000 (XYLOCAINE) 50 ML INJ ONE (13:45)
[2020-05-27] MEDS ORDERED: LOSARTAN 100 MG (COZAAR) TABLET PO SCH (09:00)
== END 2020-05-26 13:40 | disposition home or self-care (01) | DRG 637 ==
LOC: EDUNIT# 09:27 → ER 09:29 → ICU 12:55 → 4TH 05-25 05:07
PROVIDERS: ADMIT Internal Medicine; ATTEND Internal Medicine
DX: E11.10 Type 2 diabetes mellitus with ketoacidosis without coma (principal); J18.9 Pneumonia, unspecified organism; E87.2 Acidosis; J44.0 Chronic obstructive pulmonary disease with (acute) lower respiratory infection; I25.119 Atherosclerotic heart disease of native coronary artery with unspecified angina pectoris; G47.33 Obstructive sleep apnea (adult) (pediatric); E11.40 Type 2 diabetes mellitus with diabetic neuropathy, unspecified; Z79.4 Long term (current) use of insulin; I10 Essential (primary) hypertension; E78.5 Hyperlipidemia, unspecified; E78.00 Pure hypercholesterolemia, unspecified; K21.9 Gastro-esophageal reflux disease without esophagitis; I25.82 Chronic total occlusion of coronary artery; M19.91 Primary osteoarthritis, unspecified site; F41.9 Anxiety disorder, unspecified; Z95.5 Presence of coronary angioplasty implant and graft; I08.1 Rheumatic disorders of both mitral and tricuspid valves; Z88.6 Allergy status to analgesic agent; Z88.0 Allergy status to penicillin; Z88.2 Allergy status to sulfonamides; Z82.61 Family history of arthritis; Z83.3 Family history of diabetes mellitus; Z82.49 Family history of ischemic heart disease and other diseases of the circulatory system
CPT/HCPCS: 36415; 71045; 80048; 80053; 80061; 81000; 82010; 82150; 82962; 83036; 83605; 83690; 83735; 83874; 83880; 84100; 84484; 85025; 85027; 85379; 85610; 85730; 87081; 93005; 93041; 94760; 96361; 96372; 96374; 96375

== ENCOUNTER 2020-12-22 09:27 | Inpatient (IN) | payer MEDICARE ==
[~2020-12-22] VITALS: Ht 175 cm; Wt 118.0 kg
[~2020-12-22 09:27] MED LIST changes: +ACET-2840 PO; +CEFD300C3 PO; +MULT-1061 PO; +NITR0.4T42 SL; -POTA10TA36 PO; +POTA10TA37 PO
[2020-12-22] MEDS ORDERED: ROCURONIUM 10 MG/ML 5 ML SYRINGE IV ONE (09:32)
[2020-12-22] MEDS ORDERED: ETOMIDATE IV SOLN 20 MG/10 ML VIAL IV ONE (09:32)
[2020-12-22] MEDS ORDERED: PROPOFOL DRIP (ICU) 100 ML IV ONE (09:42)
[2020-12-22 09:46] VITALS: BP 178/108
[2020-12-22] MEDS ORDERED: VANCOMYCIN INJECTION 2,000 MG in NS IV 500 ML 500 ML IV ONE (09:46)
[2020-12-22] MEDS ORDERED: PROPOFOL DRIP (ICU) 100 ML IV SCH ×2 (09:47→15:00)
[2020-12-22] MEDS ORDERED: NS IV 1000 ML 1,000 ML IV SCH ×2 (09:48→10:15)
[2020-12-22] MEDS ORDERED: NS IV 1000 ML 2,000 ML ONE (09:50)
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
[2020-12-22] MEDS ORDERED: CEFEPIME INJECTION 1,000 MG in WATER (STERILE) FOR INJECTION 10 ML IV ONE (10:00)
[2020-12-22] MEDS ORDERED: LACTATED RINGERS 1,000 ML IV ONE (10:00)
[2020-12-22 10:02] LABS: ABG BASE EXCESS -5.4 MMOL/L (-2.5-2.5); ABG OXYGEN SATURATION 93 % (94-100); ABG PO2 82 MMHG (79-93); ABG TCO2 25.8 MMOL/L (21.0-31.0)
[2020-12-22 10:04] LABS: ABG PCO2 76 MMHG (35-45); ALLENS TEST YES-POS
--- NOTE | 2020-12-22 10:04 | Diagnostic Imaging Report ---
HISTORY: Sepsis COMPARISON: 05/25/2020 TECHNIQUE: Frontal view of the chest. FINDINGS: The endotracheal tube is about 4.8 cm above the anthony. An enteric tube crosses the [id number]. There are extensive airspace opacities throughout the lungs bilaterally, markedly increased since the prior exam. No pleural effusion or pneumothorax is seen. The cardiac silhouette is stable in size. IMPRESSION: 1. Markedly increased airspace opacities in the lungs bilaterally, may be due to infection or edema. 2. The endotracheal tube is 4.8 cm above the anthony. Dictated by: Dictated on workstation # [id number]
[2020-12-22 10:05] LABS: BASOPHILS # (AUTO) 0.1 10^3/uL (0.0-0.1); BASOPHILS % (AUTO) 1 % (0-10); EOSINOPHILS # (AUTO) 1.4 10^3/uL (0.0-0.3); EOSINOPHILS % (AUTO) 10 % (0-10); HEMATOCRIT 44 % (40-54); HEMOGLOBIN 14.2 g/dL (13.3-17.7); LYMPHOCYTES # (AUTO) 5.1 10^3/uL (1.0-4.0); LYMPHOCYTES % (AUTO) 34 % (12-44); MEAN CORPUSCULAR HEMOGLOBIN 30 pg (25-34); MEAN CORPUSCULAR HGB CONC 33 g/dL (32-36); MEAN CORPUSCULAR VOLUME 91 fL (80-99); MEAN PLATELET VOLUME 9.6 fL (9.0-12.2); MONOCYTES # (AUTO) 1.2 10^3/uL (0.0-1.0); MONOCYTES % (AUTO) 8 % (0-12); NEUTROPHILS % (AUTO) 46 % (42-75); PLATELET COUNT 425 10^3/uL (130-400); WHITE BLOOD COUNT 15.1 10^3/uL (4.3-11.0)
[2020-12-22 10:05] LABS: INSPIRED O2 15 L; PATIENT TEMP 35.6; VENTILATOR YES
[2020-12-22 10:06] LABS: BILIRUBIN,URINE NEGATIVE (NEGATIVE); CLARITY,URINE CLEAR; COLOR,URINE YELLOW; GLUCOSE, URINE (UA) 3+ (NEGATIVE); KETONES,URINE NEGATIVE (NEGATIVE); LEUKOCYTE ESTERASE ,URINE NEGATIVE (NEGATIVE); NITRITE,URINE NEGATIVE (NEGATIVE); PROTEIN,URINE 3+ (NEGATIVE)
[2020-12-22 10:12] LABS: INR 0.9 (0.8-1.4); PROTHROMBIN TIME PATIENT 12.5 SEC (12.2-14.7)
[2020-12-22 10:13] LABS: AMORPHOUS SEDIMENT,UR FEW AMOR URATES /LPF; BACTERIA,URINE NEGATIVE /HPF; SQUAMOUS EPITHELIAL CELL,UR 0-2 /HPF; URINE OTHER FEW SPERM /HPF; WBC,URINE RARE /HPF
[2020-12-22] MEDS ORDERED: NS IV 1000 ML 1,000 ML IV ONE (10:15)
[2020-12-22 10:21] LABS: ALBUMIN 3.6 GM/DL (3.2-4.5); BILIRUBIN,TOTAL 0.3 MG/DL (0.1-1.0); CALCIUM 8.6 MG/DL (8.5-10.1); CREATININE SERUM 1.24 MG/DL (0.60-1.30); MAGNESIUM 1.9 MG/DL (1.6-2.4); POTASSIUM 3.8 MMOL/L (3.6-5.0); TOTAL PROTEIN 7.5 GM/DL (6.4-8.2)
[2020-12-22 10:28] LABS: BAND NEUTROPHILS 0 %; BASOPHILS % (MANUAL) 1 %; EOSINOPHILS % (MANUAL) 6 %; LYMPHOCYTES % (MANUAL) 32 %; MONOCYTES % (MANUAL) 8 %; NEUTROPHILS % (MANUAL) 53 %
[2020-12-22 10:29] LABS: RBC MORPH NORMAL
[2020-12-22 10:35] LABS: AMPHETAMINE SCREEN, URINE NEGATIVE (NEGATIVE); BARBITURATE SCREEN URINE NEGATIVE (NEGATIVE); BENZODIAZEPINES SCREEN URINE NEGATIVE (NEGATIVE); CANNABINOID SCREEN, URINE NEGATIVE (NEGATIVE); COCAINE SCREEN URINE NEGATIVE (NEGATIVE); METHADONE STAT NEGATIVE (NEGATIVE); METHAMPHETAMINE SCREEN URINE S NEGATIVE (NEGATIVE); OPIATE SCREEN URINE NEGATIVE (NEGATIVE); OXYCODONE STAT NEGATIVE (NEGATIVE); PROPOXYPHENE STAT NEGATIVE (NEGATIVE); TRICYCLIC ANTIDEPRESSANTS SCRE NEGATIVE (NEGATIVE)
[2020-12-22] MEDS ORDERED: ACETAMINOPHEN 650 MG SUPP (TYLENOL) PR PRN (13:00)
--- NOTE | 2020-12-22 13:06 | Diagnostic Imaging Report ---
EXAMINATION: CT brain without contrast, 12/22/2020. TECHNIQUE: Multiple contiguous axial images were obtained through the brain without the use of intravenous contrast. Auto Exposure Controls were utilized during the CT exam to meet ALARA standards for radiation dose reduction. INDICATION: Status post code. COMPARISON: 02/16/2012. FINDINGS: There is no acute hemorrhage or infarct. There is no mass, mass effect, or midline shift. No hydrocephalus. The osseous structures appear intact. Mucosal thickening noted within the sinuses with a small air-fluid level seen in the left sphenoid sinus. There is debris throughout the nasal passages and in the hypopharynx. A partially imaged ET tube or feeding tube noted in the mouth. Its tip is not included. IMPRESSION: 1. No acute intracranial process. 2. Sinus disease as above with a small air-fluid level in the left sphenoid sinus suggesting possible acute sinusitis. Correlate with symptoms. Dictated by: Dictated on workstation # [id number]
[2020-12-22 13:10] VITALS: BP 142/90
[2020-12-22] MEDS ORDERED: POTASSIUM CL 10MEQ/50ML IVPB 50 ML IV SCH ×2 (13:15→18:00)
[2020-12-22] MEDS ORDERED: EPINEPHrine 1 MG INJECTION 4 MG in NS (IVPB) 248 ML IV SCH (13:15)
[2020-12-22] MEDS ORDERED: 1/2 NS IV SOLUTION 1,000 ML IV SCH (13:15)
[2020-12-22] MEDS ORDERED: D5 1/2 NS 1000 ML IV SOLUTION 1,000 ML IV SCH (13:15)
[2020-12-22] MEDS ORDERED: fentaNYL INJ 100 MCG/2 ML AMP IV NR (13:30)
[2020-12-22] MEDS ORDERED: MAGNESIUM SULFATE DRIP 500 ML IV SCH (13:30)
[2020-12-22] MEDS ORDERED: LORazepam INJ 2 MG/ML (ATIVAN) VIAL IV NR (13:30)
[2020-12-22] MEDS ORDERED: ROCURONIUM 50 MG/5 ML (ZEMURON) VIAL IV PRN (13:30)
[2020-12-22] MEDS ORDERED: CALCIUM CHLORIDE 10% INJECTION 1 GM in NS (IVPB) 100 ML IV PRN (13:30)
[2020-12-22] MEDS ORDERED: LACRI-LUBE OPTHALMIC OINT 3.5 GM TUBE OU PRN ×2 (13:30)
[2020-12-22] MEDS ORDERED: MAG SULFATE 2 GM/50 ML IV PRE-MIX BAG IV NR (13:30)
[2020-12-22] MEDS ORDERED: ROCURONIUM 10 MG/ML 5 ML SYRINGE IV NR (13:30)
[2020-12-22] MEDS ORDERED: SODIUM PHOSPHATE INJ 30 MM in NS (IVPB) 250 ML IV PRN (13:30)
[2020-12-22] MEDS ORDERED: LACRI-LUBE OPTHALMIC OINT 3.5 GM TUBE OU SCH (13:30)
[2020-12-22] MEDS ORDERED: fentaNYL INJ 1,250 MCG in NS (IVPB) 225 ML IV SCH (13:30)
[2020-12-22] MEDS ORDERED: LORazepam INJECTION FOR DRIP 20 MG in D5W 100 ML IVPB 90 ML IV SCH (13:30)
[2020-12-22 13:35] LABS: ABG BASE EXCESS -3.3 MMOL/L (-2.5-2.5); ABG OXYGEN SATURATION 96 % (94-100); ABG PCO2 46 MMHG (35-45); ABG PO2 78 MMHG (79-93)
[2020-12-22] MEDS: NS W/KCL 20 MEQ/L 1,000 ML IV SCH ×2 (13:41→14:18)
[2020-12-22 13:43] LABS: PATIENT TEMP 35.3
[2020-12-22] MEDS: PROPOFOL DRIP (ICU) 100 ML IV SCH ×3 (13:44→20:09)
[2020-12-22] MEDS ORDERED: busPIRone 15 MG (BUSPAR) TABLET GT SCH (14:00)
[2020-12-22] MEDS: NOREPINEPHRINE 8 MG/250 ML 250 ML IV SCH (14:07)
[2020-12-22 14:08] LABS: INR 0.9 (0.8-1.4); PROTHROMBIN TIME PATIENT 12.9 SEC (12.2-14.7)
[2020-12-22] MEDS: VASOPRESSIN INJECTION 20 UNIT in NS (IVPB) 100 ML IV SCH (14:08)
[2020-12-22] MEDS: ENOXAPARIN 40 MG/0.4 ML (LOVENOX) SYR SC SCH (14:09)
[2020-12-22 14:21] LABS: ALANINE AMINOTRANSFERASE 18 U/L (0-55); ALBUMIN 2.9 GM/DL (3.2-4.5); ALKALINE PHOSPHATASE 73 U/L (40-136); AMYLASE 31 U/L (25-125); BILIRUBIN,DIRECT 0.2 MG/DL (0.0-0.3); BILIRUBIN,INDIRECT 0.2 MG/DL; BILIRUBIN,TOTAL 0.4 MG/DL (0.1-1.0); CREATINE KINASE 69 U/L (30-200); LIPASE 17 U/L (8-78); MAGNESIUM 1.5 MG/DL (1.6-2.4); PHOSPHORUS 3.1 MG/DL (2.3-4.7); TOTAL PROTEIN 6.3 GM/DL (6.4-8.2)
[2020-12-22 14:37] LABS: CALCIUM 7.8 MG/DL (8.5-10.1); CREATININE SERUM 1.11 MG/DL (0.60-1.30); POTASSIUM 4.1 MMOL/L (3.6-5.0)
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
--- NOTE | 2020-12-22 15:02 | Occ Therapy Progress Note ---
Therapy Progress Note OT orders received. Pt is currently intubated and sedated, OT will continue to monitor pt status and initiate therapy when pt is more medically stable and able to actively participate in skilled therapy. DANIKA LOERA OT Dec 22, 2020 15:02
[2020-12-22] MEDS: fentaNYL INJ 100 MCG/2 ML AMP IVP PRN (15:25)
--- NOTE | 2020-12-22 15:59 | Physical Therapy Progress Note ---
Therapy Progress Note PT orders received. Pt is currently intubated and sedated, PT will continue to monitor pt status and initiate therapy when pt is more medically stable and able to actively participate in skilled therapy. SUZE BOWEN PT Dec 22, 2020 15:58
[2020-12-22] MEDS ORDERED: ROCURONIUM 10 MG/ML 5 ML SYRINGE IV PRN (16:15)
[2020-12-22] MEDS: CEFEPIME 1,000 MG/SWFI 10 ML IV PUSH IV SCH ×2 (16:19)
[2020-12-22] MEDS ORDERED: RT-ALBUTEROL/IPRATROPIUM 3 ML (DUONEB) VIAL INH PRN (17:15)
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
[2020-12-22] MEDS ORDERED: ACETAMINOPHEN 325 MG TABLET GT SCH (18:00)
[2020-12-22] MEDS: RT-ALBUTEROL/IPRATROPIUM 3 ML (DUONEB) VIAL INH SCH ×2 (18:11→21:57)
[2020-12-22 18:14] VITALS: BP 147/86
[2020-12-22] MEDS: inSUlin ASPART (NovoLOG) 1 UNIT/0.01 ML (CHARGE PER UNIT) SQ SCH (18:38)
[2020-12-22 21:58] VITALS: BP 149/80
[2020-12-22] MEDS: VANCOMYCIN 1500 MG/NS 500 ML IVPB IV SCH ×2 (22:20)
[2020-12-23] MEDS: PROPOFOL DRIP (ICU) 100 ML IV SCH ×8 (00:02→22:51)
[2020-12-23] MEDS: CEFEPIME 1,000 MG/SWFI 10 ML IV PUSH IV SCH ×10 (00:02→22:51)
[2020-12-23] MEDS: inSUlin ASPART (NovoLOG) 1 UNIT/0.01 ML (CHARGE PER UNIT) SQ SCH ×5 (00:50→23:00)
[2020-12-23] MEDS: VASOPRESSIN INJECTION 20 UNIT in NS (IVPB) 100 ML IV SCH ×3 (01:16→21:59)
[2020-12-23] MEDS: fentaNYL INJ 100 MCG/2 ML AMP IVP PRN ×3 (02:01→14:14)
[2020-12-23] MEDS: RT-ALBUTEROL/IPRATROPIUM 3 ML (DUONEB) VIAL INH SCH ×6 (02:26→22:17)
[2020-12-23 02:32] VITALS: BP 146/76
[2020-12-23] MEDS: NOREPINEPHRINE 8 MG/250 ML 250 ML IV SCH ×2 (03:58→15:58)
[2020-12-23] MEDS: NS W/KCL 20 MEQ/L 1,000 ML IV SCH ×2 (04:00→15:58)
[2020-12-23 05:42] LABS: BASOPHILS % (AUTO) 0 % (0-10); EOSINOPHILS # (AUTO) 0.2 10^3/uL (0.0-0.3); EOSINOPHILS % (AUTO) 2 % (0-10); HEMATOCRIT 33 % (40-54); HEMOGLOBIN 11.1 g/dL (13.3-17.7); LYMPHOCYTES # (AUTO) 1.1 10^3/uL (1.0-4.0); LYMPHOCYTES % (AUTO) 10 % (12-44); MEAN CORPUSCULAR HEMOGLOBIN 30 pg (25-34); MEAN CORPUSCULAR HGB CONC 33 g/dL (32-36); MEAN CORPUSCULAR VOLUME 89 fL (80-99); MEAN PLATELET VOLUME 9.8 fL (9.0-12.2); MONOCYTES # (AUTO) 0.7 10^3/uL (0.0-1.0); MONOCYTES % (AUTO) 6 % (0-12); NEUTROPHILS % (AUTO) 81 % (42-75); PLATELET COUNT 287 10^3/uL (130-400)
[2020-12-23 06:06] LABS: ALBUMIN 2.6 GM/DL (3.2-4.5); BILIRUBIN,TOTAL 0.3 MG/DL (0.1-1.0); CALCIUM 7.5 MG/DL (8.5-10.1); CREATININE SERUM 0.91 MG/DL (0.60-1.30); MAGNESIUM 1.7 MG/DL (1.6-2.4); PHOSPHORUS 2.5 MG/DL (2.3-4.7); POTASSIUM 3.5 MMOL/L (3.6-5.0); TOTAL PROTEIN 5.8 GM/DL (6.4-8.2)
[2020-12-23 06:13] LABS: ABG BASE EXCESS -2.9 MMOL/L (-2.5-2.5); ABG OXYGEN SATURATION 92 % (94-100); ABG PCO2 39 MMHG (35-45); ABG PH 7.36 (7.37-7.43); ABG PO2 62 MMHG (79-93)
[2020-12-23 06:16] LABS: ALLENS TEST YES-POS
[2020-12-23 06:17] LABS: PATIENT TEMP 36.3; VENTILATOR NO
[2020-12-23] MEDS: MAGNESIUM 1 GM/100 ML IVPB 100 ML IV SCH ×3 (06:17→08:07)
[2020-12-23] MEDS: KCL 20 MEQ TAB (K-DUR) PO SCH (06:17)
[2020-12-23] MEDS: POTASSIUM CL 10MEQ/50ML IVPB 50 ML IV SCH ×3 (06:17→08:07)
--- NOTE | 2020-12-23 06:53 | Occ Therapy Progress Note ---
Therapy Progress Note Pt is currently intubated. OT will continue to monitor pt status and initiate treatment when pt is medically stable and able to actively participate in skilled therapy. RADHA WADSWORTH Dec 23, 2020 06:53
[2020-12-23 07:07] VITALS: BP 171/86
--- NOTE | 2020-12-23 07:15 | Diagnostic Imaging Report ---
Reason for examination: Intubation. Semiupright AP portable chest was obtained and compared to yesterday. ET tube tip is at the level of the clavicles. Heart size is stable and there is no mediastinal widening. Persistent but improving bilateral mixed interstitial and alveolar infiltrates. No large effusion or pneumothorax. Impression: 1. ET tube tip in good position. There is an NG tube in the left upper quadrant but the tip is not visible. 2. Persistent but improving bilateral mixed interstitial and alveolar infiltrates. Right PICC line projecting to the lower SVC. Dictated by: Dictated on workstation # [id number]
--- NOTE | 2020-12-23 09:13 | Tele-ICU Progress Note ---
Subjective Date Seen by a Provider: Dec 23, 2020 Time Seen by a Provider: 08:25 Subjective/Events-last exam This virtual visit was conducted using real time audio/video. Thank you for asking us to see this patient for respiratory insufficiency, OOH arrest and possible aspiration pneumonitis. HPC: Recent events: FiO2 decreased to 55% PE: Sedated on vent: 55%/+8. VSS O2 sat 92%. HEENT: No obvious masses, adenopathy or JVD. Chest: clear to auscultation. CV: Obese. RRR S1 S2 No murmur or added sounds. Abd: Non-tender. Bowel sounds Y. : Unremarkable. [facility]/psychiatric: Sedated but waking up. No obvious focal findings. Extremities: No edema. Capillary refill < 3 seconds. Skin: unremarkable. Results: Elevated BG 125. Decreased K 3.5. CXRimproved B infilts. AB.36/39/62. A/P: Respiratory failure: Wean O2 as laureen. Available chart/ vitals / labs / images reviewed. Video assessment done using teleICU camera, rest of exam as per RN. Monitor for increasing oxygenation needs. Critical Care: critically ill patient. Cont abx., SSI., Lovenox, Duonebs. Discussed with RN Koko. Asked RN to reach out to eICU if any questions or concerns later. Time spent with patient/coordination of care with other health professionals (mins): 30 From: Anabela Rangel MD Sepsis Event Evaluation Height, Weight, BMI Height: 5'9.00" Weight: 247lbs. 7.0oz. 112.426973ev; 32.00 BMI Method:Stated Focused Exam Lactate Level 12/22/20 10:08: Lactic Acid Level 3.29*H 12/22/20 13:40: Lactic Acid Level 1.72 Time of Focused Exam: 11:00 Exam Exam Patient acknowledged, consented, and participated in this virtual visit which was conducted using real time audio/video Vital Signs Date Time Temp Pulse Resp B/P (MAP) Pulse Ox O2 Delivery O2 Flow Rate FiO2 12/23/20 08:12 92 Mechanical Ventilator 55 12/23/20 08:00 37.1 112 23 159/82 93 Mechanical Ventilator 55.00 12/23/20 07:45 37.1 112 25 174/87 93 115/21 07:30 37.1 112 32 165/53 98 12/23/20 07:15 37.1 103 22 171/106 92 12/23/20 07:07 103 22 92 55 12/23/20 07:00 103 12/23/20 07:00 37.1 102 22 171/86 91 Mechanical Ventilator 55.00 12/23/20 06:45 37.1 102 23 165/83 92 12/23/20 06:36 102 167/80 12/23/20 06:30 167/81 12/23/20 06:15 102 25 164/84 92 12/23/20 06:00 37.0 101 20 164/84 91 Mechanical Ventilator 55.00 12/23/20 05:45 100 21 160/81 92 12/23/20 05:30 156/80 12/23/20 05:15 147/75 12/23/20 05:00 36.7 99 20 147/75 91 Mechanical Ventilator 55.00 12/23/20 05:00 105 26 92 12/23/20 04:45 101 20 151/80 91 12/23/20 04:30 101 20 149/74 91 12/23/20 04:15 104 20 149/75 91 12/23/20 04:00 90 Mechanical Ventilator 55 12/23/20 04:00 36.6 102 21 149/75 91 Mechanical Ventilator 55.00 12/23/20 04:00 Mechanical Ventilator 55.00 12/23/20 04:00 102 123/86 12/23/20 03:45 103 15 123/86 90 12/23/20 03:30 102 21 162/78 92 12/23/20 03:15 101 20 151/75 93 12/23/20 03:00 36.9 100 20 151/75 93 Mechanical Ventilator 40.00 12/23/20 02:45 139/69 12/23/20 02:32 92 20 93 40 12/23/20 02:30 92 20 146/76 94 12/23/20 02:27 93 40 12/23/20 02:15 92 20 131/70 92 12/23/20 02:00 36.9 97 24 131/70 93 Mechanical Ventilator 40.00 12/23/20 01:45 91 20 147/74 93 12/23/20 01:30 91 23 148/76 93 12/23/20 01:15 92 21 154/75 93 12/23/20 01:00 36.8 92 20 154/75 93 Mechanical Ventilator 40.00 12/23/20 01:00 92 12/23/20 00:45 90 20 147/78 93 12/23/20 00:30 90 16 149/81 93 12/23/20 00:15 91 20 146/80 93 12/23/20 00:02 92 147/83 12/23/20 00:00 36.7 92 20 146/80 93 Mechanical Ventilator 40.00 12/22/20 23:59 94 Mechanical Ventilator 40 12/22/20 23:45 88 20 127/66 93 12/22/20 23:30 88 20 131/68 94 12/22/20 23:15 90 20 141/74 94 12/22/20 23:00 36.7 90 21 141/74 93 Mechanical Ventilator 40.00 12/22/20 22:45 92 13 152/79 93 12/22/20 22:30 92 20 158/82 93 12/22/20 22:15 88 20 149/80 93 12/22/20 22:08 Mechanical Ventilator 40.00 12/22/20 22:06 96 45 12/22/20 22:00 36.6 84 20 149/80 94 Mechanical Ventilator 55.00 12/22/20 21:58 82 20 94 45 12/22/20 21:46 Mechanical Ventilator 55.00 12/22/20 21:45 81 22 145/80 97 12/22/20 21:30 124/70 12/22/20 21:15 80 20 130/76 97 12/22/20 21:00 36.5 78 20 130/76 96 Mechanical Ventilator 65.00 12/22/20 20:45 80 20 137/75 97 12/22/20 20:30 130/76 12/22/20 20:15 79 20 136/74 97 12/22/20 20:09 80 127/80 12/22/20 20:00 Mechanical Ventilator 65.00 12/22/20 20:00 36.3 78 20 136/74 95 Mechanical Ventilator 65.00 12/22/20 20:00 96 Mechanical Ventilator 70 12/22/20 20:00 Mechanical Ventilator 65.00 12/22/20 19:45 119/73 12/22/20 19:41 36.4 11/4/21 19:30 80 20 123/74 96 12/22/20 19:15 79 20 119/71 98 12/22/20 19:00 35.9 81 20 119/71 96 Mechanical Ventilator 65.00 12/22/20 19:00 81 12/22/20 18:24 96 65 12/22/20 18:14 80 20 95 65 12/22/20 18:00 77 20 140/84 95 Mechanical Ventilator 70.00 12/22/20 17:00 73 141/83 97 Mechanical Ventilator 70.00 12/22/20 16:43 35.0 12/22/20 16:19 68 111/69 12/22/20 16:00 67 20 99/61 97 Mechanical Ventilator 70.00 12/22/20 15:30 71 16 114/68 98 Mechanical Ventilator 70.00 12/22/20 15:30 97 Mechanical Ventilator 70 12/22/20 15:15 73 9 109/65 99 Mechanical Ventilator 70.00 12/22/20 15:00 75 12 112/67 99 Mechanical Ventilator 70.00 12/22/20 14:51 98 Mechanical Ventilator 70 12/22/20 14:45 77 16 116/73 99 Mechanical Ventilator 70.00 12/22/20 14:30 82 16 135/84 98 Mechanical Ventilator 70.00 12/22/20 14:15 83 7 159/101 94 Mechanical Ventilator 70.00 12/22/20 14:00 82 10 168/108 92 Mechanical Ventilator 70.00 12/22/20 13:48 35.3 12/22/20 13:45 75 9 134/88 95 Mechanical Ventilator 70.00 12/22/20 13:44 77 120/74 12/22/20 13:42 74 18 118/79 96 Mechanical Ventilator 70.00 12/22/20 13:30 35.3 12/22/20 13:30 74 19 118/79 95 Mechanical Ventilator 70.00 12/22/20 13:15 77 19 105/62 90 Mechanical Ventilator 70.00 12/22/20 13:10 77 20 93 70 12/22/20 13:06 78 12/22/20 13:00 142/90 12/22/20 12:45 34.7 77 21 120/74 94 Mechanical Ventilator 12/22/20 09:53 93 170/95 12/22/20 09:46 96 20 94 100 12/22/20 09:29 35.9 105 27 203/116 (145) 93 Ambu Bag 12/22/20 09:28 Ambu Bag I & O 12/23/20 07:00 Intake Total 5645 ml Output Total 1300 ml Balance 4345 ml Height & Weight Height: 5'9.00" Weight: 247lbs. 7.0oz. 112.066796fy; 32.00 BMI Method:Stated General Appearance: No Apparent Distress, Chronically ill, Obese HEENT: PERRL/EOMI (Right pupil nonfunctioning with opacity over the pupil. Scleral hemorrhage noted. Left pupil 8 mm very sluggish down to 6 mm after 10 seconds of light stimuli), TMs Normal, Pharynx Normal, Moist Mucous Membranes Neck: Full Range of Motion, Normal Inspection Respiratory: Lungs Clear, Normal Breath Sounds Cardiovascular: Tachycardia Capillary Refill: Less Than 3 Seconds Peripheral Pulses: 2+ Radial Pulses (R), 2+ Radial Pulses (L) Extremity: Normal Capillary Refill Neurologic/Psychiatric: Other (sedated and non-responsive at this time) Skin: Normal Color, Warm/Dry Lymphatic: No Adenopathy (cervical and axillary) Results Lab Laboratory Tests 12/22/20 09:35 12/22/20 13:40 12/23/20 05:23 Assessment/Plan Assessment/Plan See free text. Critical Care: Ventilator Management ANABELA RANGEL MD Dec 23, 2020 09:13
[2020-12-23] MEDS: PANTOPRAZOLE 40 MG (PROTONIX) VIAL IV SCH (09:19)
--- NOTE | 2020-12-23 09:58 | Physical Therapy Progress Note ---
Therapy Progress Note Consulted with RN on POC with extubation. Patient currently remains intubated but is communicating. Will assess later today. DARLENE CARREON PT Dec 23, 2020 09:58
[2020-12-23] MEDS ORDERED: DexMEDEtomidine 250 ML DRIP 250 ML IV SCH (10:00)
[2020-12-23 10:56] VITALS: BP 106/55
[2020-12-23] MEDS: VANCOMYCIN 1500 MG/NS 500 ML IVPB IV SCH ×4 (11:12→21:03)
--- NOTE | 2020-12-23 11:51 | Physical Therapy Progress Note ---
Therapy Progress Note It appears patient will remain intubated through most of this day. PT will check patient status in a.jacqui. DARLENE CARREON PT Dec 23, 2020 11:51
[2020-12-23] MEDS: ENOXAPARIN 40 MG/0.4 ML (LOVENOX) SYR SC SCH (14:12)
[2020-12-23] MEDS: NYSTATIN CREAM (MYCOSTATIN) 30 GM TUBE TP SCH ×2 (14:12→21:03)
[2020-12-23 15:02] VITALS: BP 149/75
[2020-12-23] MEDS ORDERED: CYCL5TAB PO (15:15)
[2020-12-23] MEDS ORDERED: TBDXOO OP (15:15)
[2020-12-23] MEDS ORDERED: DOXY100T2 PO (15:15)
[2020-12-23] MEDS ORDERED: INSU100I14 SQ (15:15)
[2020-12-23] MEDS ORDERED: MUPI22OI2 TP (15:15)
[2020-12-23 18:39] VITALS: BP 123/65
[2020-12-23] MEDS: MICONAZOLE 2% POWDER (DESENEX AF) 90 GM TOP SCH (21:03)
[2020-12-23 22:18] VITALS: BP 129/68
[2020-12-24] MEDS: PROPOFOL DRIP (ICU) 100 ML IV SCH ×10 (00:43→21:13)
--- NOTE | 2020-12-24 02:12 | Progress Note - Hospitalist ---
AKANKSHA HOLT MED STUDENT 12/24/20 0212: Subjective HPI/CC On Admission Date Seen by Provider: Dec 23, 2020 Time Seen by Provider: 09:20 Chief complaint: Respiratory failure History present illness: This is a 60-year-old white male known to this examiner from prior hospital stays who presents to the ER via EMS after a phone call to 911 with shortness of breath. Patient was found to be in agonal breathing and required intubation. PICC line was placed due to poor venous access and required PICC line to save his life. No other details obtained. Subjective/Events-last exam Pt is sedated and on ventilator. Arousable to voice/touch, no signs of agitation. No events overnight. Per nursing, they were unable to initiate TTM due to pt waking up and saying it was too cold as they were putting on the pads. Review of Systems unable to assess due to clinical condition, sedated Focused Exam Sepsis Stage: Sepsis Possible Source: Pulmonary Lactate Level 12/22/20 10:08: Lactic Acid Level 3.29*H 12/22/20 13:40: Lactic Acid Level 1.72 Time of Focused Exam: 11:00 Objective Exam Vital Signs Vital Signs Date Time Temp Pulse Resp B/P (MAP) Pulse Ox O2 Delivery O2 Flow Rate FiO2 12/24/20 00:44 106 12/24/20 00:00 37.1 24 161/76 92 Mechanical Ventilator 40.00 12/23/20 23:56 40 Capillary Refill : Less Than 3 Seconds General Appearance: No Apparent Distress, Chronically ill, Obese HEENT: Normal ENT Inspection (intubated) Neck: Normal Inspection, Non Tender, Supple Respiratory: Chest Non Tender, No Accessory Muscle Use, No Respiratory Distress, Decreased Breath Sounds, Rhonci, Other (ETT, ventilator settings 55% FiO2 8 PEEP 24 RR) Cardiovascular: No JVD, Normal Peripheral Pulses, Systolic Murmur, Tachycardia, Other (moderate nonpitting edema BLE) Gastrointestinal: Normal Bowel Sounds, Non Tender, Soft Rectal: Deferred Back: Normal Inspection, No CVA Tenderness, No Vertebral Tenderness Extremity: Normal Capillary Refill, Non Tender, Pedal Edema (moderate, bilateral) Neurologic/Psychiatric: Other (sedated, GCS 10T) Skin: Normal Color, Warm/Dry, Other (ulcer/lesion to L index finger with surrounding erythema) Lymphatic: No Adenopathy Results/Procedures Lab Laboratory Tests 11/5/21 05:23 Patient resulted labs reviewed. Assessment/Plan Assessment and Plan Assess & Plan/Chief Complaint Cardiac arrest w/ ROSC Acute respiratory failure Pneumonia EICU consulted Sepsis protocol IVF, Abx Intubated on ventilator Sedation per ICU protocol CXR: bilateral airspace opacities, no pneumo or effusion Monitor fluid status; maintenance IVF, bolus as indicated L index finger ulcer/cellulitis Monitor for improvement T2DM Insulin sliding scale HTN CAD COPD GERD, PUD, ulcer prophylaxis PPI started Critical Care: Ventilator Management SHEREEN DIANA DO 12/24/20 0906: Subjective Subjective/Events-last exam Patient still intubated Supportive care continues Objective Exam General Appearance: Chronically ill, Obese, Other (Intubated) Respiratory: Decreased Breath Sounds Assessment/Plan Assessment and Plan Assess & Plan/Chief Complaint Appreciate eICU Vent management Chronically debilitated Supervisory-Addendum Brief Verification & Attestation Participated in pt care: history, MDM, physical Personally performed: exam, history, MDM, supervision of care Care discussed with: Medical Student Procedures: n/a Results interpretation: Verified all documentation Verification and Attestation of Medical Student E/M Service A medical student performed and documented this service in my presence. I reviewed and verified all information documented by the medical student and made modifications to such information, when appropriate. I personally performed the physical exam and medical decision making. Shereen Diana, Dec 24, 2020,09:05 AKANKSHA HOLT MED STUDENT Dec 24, 2020 02:12 SHEREEN DIANA DO Dec 24, 2020 09:06
[2020-12-24 02:18] VITALS: BP 144/73
[2020-12-24] MEDS: RT-ALBUTEROL/IPRATROPIUM 3 ML (DUONEB) VIAL INH SCH ×6 (02:18→21:52)
[2020-12-24 04:10] LABS: ABG BASE EXCESS -3.6 MMOL/L (-2.5-2.5); ABG OXYGEN SATURATION 98 % (94-100); ABG PCO2 35 MMHG (35-45); ABG PH 7.38 (7.37-7.43); ABG PO2 143 MMHG (79-93); ABG TCO2 21.7 MMOL/L (21.0-31.0)
[2020-12-24 04:13] LABS: BASOPHILS # (AUTO) 0.1 10^3/uL (0.0-0.1); BASOPHILS % (AUTO) 1 % (0-10); EOSINOPHILS # (AUTO) 0.3 10^3/uL (0.0-0.3); EOSINOPHILS % (AUTO) 3 % (0-10); HEMATOCRIT 31 % (40-54); HEMOGLOBIN 10.2 g/dL (13.3-17.7); LYMPHOCYTES % (AUTO) 11 % (12-44); MEAN CORPUSCULAR HEMOGLOBIN 30 pg (25-34); MEAN CORPUSCULAR HGB CONC 33 g/dL (32-36); MEAN CORPUSCULAR VOLUME 90 fL (80-99); MEAN PLATELET VOLUME 9.3 fL (9.0-12.2); MONOCYTES # (AUTO) 0.8 10^3/uL (0.0-1.0); MONOCYTES % (AUTO) 8 % (0-12); NEUTROPHILS # (AUTO) 6.8 10^3/uL (1.8-7.8); NEUTROPHILS % (AUTO) 77 % (42-75); PLATELET COUNT 242 10^3/uL (130-400); WHITE BLOOD COUNT 8.9 10^3/uL (4.3-11.0)
[2020-12-24 04:15] LABS: ALLENS TEST YES-POS; INSPIRED O2 40%; PATIENT TEMP 37; VENTILATOR YES
[2020-12-24 04:32] LABS: ALBUMIN 2.5 GM/DL (3.2-4.5); BILIRUBIN,TOTAL 0.3 MG/DL (0.1-1.0); CALCIUM 7.7 MG/DL (8.5-10.1); CREATININE SERUM 0.93 MG/DL (0.60-1.30); MAGNESIUM 2.1 MG/DL (1.6-2.4); PHOSPHORUS 2.7 MG/DL (2.3-4.7); POTASSIUM 3.7 MMOL/L (3.6-5.0); TOTAL PROTEIN 5.3 GM/DL (6.4-8.2)
[2020-12-24] MEDS: CEFEPIME 1,000 MG/SWFI 10 ML IV PUSH IV SCH ×8 (04:33→23:00)
[2020-12-24] MEDS: MAGNESIUM 1 GM/100 ML IVPB 100 ML IV SCH (04:43)
[2020-12-24] MEDS: KCL 20 MEQ TAB (K-DUR) PO SCH (04:43)
[2020-12-24] MEDS: POTASSIUM CL 10MEQ/50ML IVPB 50 ML IV SCH ×5 (04:43→23:57)
[2020-12-24] MEDS: inSUlin ASPART (NovoLOG) 1 UNIT/0.01 ML (CHARGE PER UNIT) SQ SCH ×4 (05:47→23:56)
[2020-12-24] MEDS: NOREPINEPHRINE 8 MG/250 ML 250 ML IV SCH ×2 (06:02→21:07)
--- NOTE | 2020-12-24 06:43 | Diagnostic Imaging Report ---
Indication: Respiratory failure Portable chest 5:29 AM There is ET tube projects over the trachea. NG tube enters the stomach. Right extremity PICC line tip projects over the SVC. There is cardiomegaly with pulmonary vascular congestion and some interstitial edema. IMPRESSION: Probable congestive heart failure. No change compared to previous day. Dictated by: Dictated on workstation # [id number]
[2020-12-24 07:20] VITALS: BP 173/84
[2020-12-24] MEDS: PANTOPRAZOLE 40 MG (PROTONIX) VIAL IV SCH (08:07)
[2020-12-24] MEDS: NS W/KCL 20 MEQ/L 1,000 ML IV SCH (08:07)
[2020-12-24] MEDS: MICONAZOLE 2% POWDER (DESENEX AF) 90 GM TOP SCH ×2 (08:08→21:08)
[2020-12-24] MEDS: NYSTATIN CREAM (MYCOSTATIN) 30 GM TUBE TP SCH ×3 (08:08→21:08)
[2020-12-24] MEDS ORDERED: FUROSEMIDE 40 MG/4 ML INJ (LASIX) IVP ONE (09:45)
[2020-12-24 09:51] VITALS: BP 164/89
--- NOTE | 2020-12-24 09:51 | Tele-ICU Progress Note ---
Subjective Date Seen by a Provider: Dec 24, 2020 Time Seen by a Provider: 09:51 Subjective/Events-last exam This patient admitted following out of hospital cardiac arrest and ACLS was done intubated put on mechanical ventilation. TTM was not started because patient was following commands in the ICU. Currently he is on mechanical ventilation with a respiratory at of 20 PEEP of 8 and FiO2 40%. Review of the chest x-ray showed suggestion of pulmonary edema. Intake and output reviewed and he is significantly in positive fluid balance. He has a history of coronary artery disease status post 2 stent placed I believe in 2018. His blood pressure is somewhat high he is not on any pressors. Currently afebrile. Based on his fluid status and chest x-ray picture he is not ready for weaning from mechanical ventilation. Sepsis Event Evaluation Height, Weight, BMI Height: 5'9.00" Weight: 247lbs. 7.0oz. 112.463527uw; 32.00 BMI Method:Stated Focused Exam Lactate Level 12/22/20 10:08: Lactic Acid Level 3.29*H 12/22/20 13:40: Lactic Acid Level 1.72 Time of Focused Exam: 11:00 Exam Exam Patient acknowledged, consented, and participated in this virtual visit which was conducted using real time audio/video Vital Signs Date Time Temp Pulse Resp B/P (MAP) Pulse Ox O2 Delivery O2 Flow Rate FiO2 12/24/20 09:00 36.8 109 23 171/85 93 Mechanical Ventilator 40.00 12/24/20 08:47 108 167/82 12/24/20 08:47 108 167/82 12/24/20 08:45 36.8 109 24 167/82 93 12/24/20 08:32 92 Mechanical Ventilator 40 12/24/20 08:30 36.8 110 22 173/89 92 12/24/20 08:15 36.8 111 22 131/82 91 12/24/20 08:00 36.9 111 18 167/85 92 Mechanical Ventilator 40.00 12/24/20 07:45 36.9 111 23 172/84 92 12/24/20 07:41 36.9 12/24/20 07:30 36.9 111 26 167/85 92 12/24/20 07:20 111 29 92 40 12/24/20 07:15 36.9 109 33 173/84 94 12/24/20 07:00 36.9 104 25 167/90 92 Mechanical Ventilator 40.00 12/24/20 07:00 105 12/24/20 06:45 36.9 100 161/83 12/24/20 06:30 36.9 101 18 152/82 94 12/24/20 06:15 36.9 102 20 159/79 93 12/24/20 06:00 36.9 104 19 167/83 93 Mechanical Ventilator 40.00 12/24/20 05:00 37.0 104 22 157/80 93 Mechanical Ventilator 40.00 12/24/20 04:38 103 35 94 12/24/20 04:34 103 12/24/20 04:33 103 12/24/20 04:03 94 Mechanical Ventilator 40 12/24/20 04:00 37.0 97 20 141/77 94 Mechanical Ventilator 40.00 12/24/20 03:03 37.2 Mechanical Ventilator 40.00 12/24/20 03:00 37.0 103 22 155/77 93 Mechanical Ventilator 40.00 12/24/20 02:18 98 21 93 40 12/24/20 02:00 37.1 98 22 144/72 94 Mechanical Ventilator 40.00 12/24/20 01:00 37.1 104 25 147/71 92 Mechanical Ventilator 40.00 12/24/20 01:00 107 12/24/20 00:44 106 12/24/20 00:43 106 12/24/20 00:00 37.1 110 24 161/76 92 Mechanical Ventilator 40.00 12/23/20 23:56 91 Mechanical Ventilator 40 12/23/20 23:00 37.2 110 25 164/76 91 Mechanical Ventilator 40.00 12/23/20 22:53 37.2 Mechanical Ventilator 40.00 12/23/20 22:51 111 12/23/20 22:18 102 26 94 40 12/23/20 22:00 37.4 104 21 129/68 93 Mechanical Ventilator 40.00 12/23/20 21:00 37.5 106 22 155/75 92 Mechanical Ventilator 40.00 12/23/20 20:26 110 12/23/20 20:00 92 Mechanical Ventilator 40 12/23/20 20:00 37.6 101 23 128/67 93 Mechanical Ventilator 40.00 12/23/20 19:00 37.5 Mechanical Ventilator 40.00 12/23/20 19:00 104 12/23/20 19:00 37.8 98 21 124/67 93 Mechanical Ventilator 40.00 12/23/20 18:45 101 22 116/62 92 Mechanical Ventilator 40.00 12/23/20 18:39 104 21 92 40 12/23/20 18:30 101 22 126/65 93 Mechanical Ventilator 40.00 12/23/20 18:15 103 24 142/70 92 Mechanical Ventilator 40.00 12/23/20 18:03 105 104/59 12/23/20 18:00 105 24 148/75 95 Mechanical Ventilator 50.00 12/23/20 17:45 105 22 157/77 95 Mechanical Ventilator 50.00 12/23/20 17:30 105 24 133/68 94 Mechanical Ventilator 50.00 12/23/20 17:15 102 24 105/64 95 Mechanical Ventilator 50.00 12/23/20 17:00 105 24 104/59 94 Mechanical Ventilator 50.00 12/23/20 16:45 107 23 113/60 95 Mechanical Ventilator 50.00 12/23/20 16:30 107 24 117/59 94 Mechanical Ventilator 50.00 12/23/20 16:15 108 24 119/59 95 Mechanical Ventilator 50.00 12/23/20 16:02 95 Mechanical Ventilator 50.00 12/23/20 16:00 37.2 108 24 117/62 95 Mechanical Ventilator 60.00 12/23/20 15:54 106 118/62 12/23/20 15:45 37.2 106 23 118/62 96 Mechanical Ventilator 60.00 12/23/20 15:30 37.1 111 23 128/67 95 Mechanical Ventilator 60.00 12/23/20 15:28 96 Mechanical Ventilator 60 12/23/20 15:22 Mechanical Ventilator 60.00 12/23/20 15:15 37.1 112 25 148/72 96 Mechanical Ventilator 70.00 12/23/20 15:02 110 23 97 70 12/23/20 15:00 37.2 103 26 147/78 96 Mechanical Ventilator 70.00 12/23/20 14:45 37.2 102 150/80 12/23/20 14:30 37.2 101 21 119/63 96 12/23/20 14:15 37.2 105 27 154/79 97 12/23/20 14:11 100 132/68 12/23/20 14:00 37.2 100 20 132/68 97 Mechanical Ventilator 70.00 12/23/20 13:45 37.2 101 22 129/68 98 12/23/20 13:30 37.2 125/68 12/23/20 13:15 37.2 99 22 129/65 97 12/23/20 13:00 37.2 105 22 122/70 97 Mechanical Ventilator 70.00 12/23/20 12:45 110 22 131/69 97 12/23/20 12:36 117 12/23/20 12:30 111 23 153/75 96 12/23/20 12:15 116 147/84 12/23/20 12:00 37.2 120 26 175/85 95 Mechanical Ventilator 70.00 12/23/20 12:00 Mechanical Ventilator 70 12/23/20 11:45 37.2 120 23 166/87 94 12/23/20 11:30 37.2 118 25 173/91 95 12/23/20 11:15 37.2 112 24 167/84 94 12/23/20 11:06 91 Mechanical Ventilator 70.00 12/23/20 11:00 37.2 99 23 135/83 91 Mechanical Ventilator 70.00 12/23/20 10:56 103 23 91 70 12/23/20 10:46 92 Mechanical Ventilator 70.00 12/23/20 10:45 37.2 99 20 106/55 90 12/23/20 10:45 89 Mechanical Ventilator 55.00 12/23/20 10:30 37.2 101 21 100/57 91 12/23/20 10:15 37.2 105 21 109/56 91 12/23/20 10:00 37.2 110 24 129/67 91 Mechanical Ventilator 55.00 12/23/20 09:56 96 65.00 I & O 12/24/20 07:00 Intake Total 3140 ml Output Total 2400 ml Balance 740 ml Height & Weight Height: 5'9.00" Weight: 247lbs. 7.0oz. 112.663529tm; 32.00 BMI Method:Stated General Appearance: Chronically ill, Obese, Other (Intubated) HEENT: Normal ENT Inspection (intubated) Neck: Normal Inspection, Non Tender, Supple Respiratory: Decreased Breath Sounds Cardiovascular: No JVD, Normal Peripheral Pulses, Systolic Murmur, Tachycardia, Other (moderate nonpitting edema BLE) Capillary Refill: Less Than 3 Seconds Peripheral Pulses: 2+ Radial Pulses (R), 2+ Radial Pulses (L) Extremity: Normal Capillary Refill, Non Tender, Pedal Edema (moderate, bilateral) Neurologic/Psychiatric: Other (sedated, GCS 10T) Skin: Normal Color, Warm/Dry, Other (ulcer/lesion to L index finger with surrounding erythema) Lymphatic: No Adenopathy Other comments PE PER ATTENDING Results Lab Laboratory Tests 12/22/20 13:40 12/23/20 05:23 12/24/20 04:00 Radiology CXR REVIEWED Assessment/Plan Assessment/Plan Video visit made and discussed with the EXTRACTIVE METALLURGIST. Available electronic medical records, labs and x-rays reviewed. Impression 1. Out of hospital cardiac arrest status post successful revival with CPR. Currently blood pressure is stable. 2. Acute pulmonary edema causing acute hypoxic respiratory failure. 3. Underlying pneumonia not completely ruled out even though unlikely. 4. History of coronary artery disease. 5. Wound with cellulitis on the index finger. Recommendations 1. Suggest decrease IV fluids to KVO 2. Start IV Lasix drip 3. Suggest cardiology consultation 4. General surgical consultation for wound on the index finger. 5. Get any 2D echocardiogram. 6. We will get a BMP in the afternoon. 7. DVT prophylaxis and ulcer prophylaxis. 8. Continue broad-spectrum antibiotics. Critical Care: Ventilator Management Time spent with patient (mins): 35 RODERICK GEIGER MD Dec 24, 2020 09:51
[2020-12-24] MEDS: VANCOMYCIN 1500 MG/NS 500 ML IVPB IV SCH ×4 (10:39→22:54)
[2020-12-24] MEDS: VASOPRESSIN INJECTION 20 UNIT in NS (IVPB) 100 ML IV SCH ×2 (10:40→21:07)
[2020-12-24] MEDS: FUROSEMIDE INJECTION 120 MG in D5W 100 ML IVPB 108 ML IV SCH ×2 (10:46→21:08)
--- NOTE | 2020-12-24 10:46 | CONSULTATION REPORT ---
DATE OF SERVICE: 12/24/2020 ATTENDING PRIMARY CARE PHYSICIAN: Dr. Hurtado. ADMITTING PHYSICIAN: Dr. Grey. HISTORY OF PRESENT ILLNESS: The patient is a 60-year-old male who presented to the Emergency Department after 911 was called and he was short of breath. The patient was found to have agonal breathing and went into cardiopulmonary arrest requiring CPR of unknown duration. The patient is currently stable and on a ventilator at 40% FiO2. He is not on any vasopressors. He does withdraw to pain. We were consulted to evaluate a lesion of the left index finger along the medial aspect. There is a dry eschar just distal to the metacarpophalangeal joint again on the medial side with a mild amount of redness and erythema. There is no fluctuance to indicate any abscess. He is currently on antibiotics with vancomycin and cefepime. PAST MEDICAL HISTORY: Coronary artery disease, hypercholesterolemia, hypertension, valvular heart disease, cardiac arrhythmia, neuropathy, gastroesophageal reflux disease, hiatal hernia, degenerative joint disease, insulin-dependent diabetes, psoriasis, sleep apnea, asthma. PAST SURGICAL HISTORY: Cardiac catheterization and stent placement, laparoscopic cholecystectomy, tonsillectomy. ALLERGIES: ASPIRIN, PENICILLIN, SULFA, LACTOSE, LIDOCAINE, CODEINE. MEDICATIONS: Amlodipine 10 mg daily, atorvastatin 40 mg daily, cyclobenzaprine 5 mg daily, doxycycline 100 mg b.i.d., duloxetine 60 mg daily, furosemide 40 mg daily, glimepiride 1 mg daily, NovoLog insulin 5 units t.i.d., detemir insulin 15 units at bedtime, losartan 100 mg daily, metoprolol 50 mg daily, potassium 10 mEq daily, sitagliptin/metformin mg daily. SOCIAL HISTORY: Unknown smoking history as well as alcohol status. FAMILY HISTORY: Father with diabetes, myocardial infarction. Mother, hypertension, heart disease, myocardial infarction, TIA. VITAL SIGNS: Afebrile. Blood pressure 161/84, pulse 107, respirations 18 on mechanical ventilator at 40% FiO2, 94% pulse oximetry. REVIEW OF SYSTEMS: This is a well-nourished male currently on the vent and sedated. He does withdraw to pain. He does appear to be comfortable. He has multiple skin wounds throughout his upper and lower extremities from what was explained as his cats at home. He has an eschar overlying the left second digit along the medial aspect just distal to the metacarpophalangeal joint with mild amount of erythema. There is no fluctuance to indicate any abscess. He does have bilateral lower extremity edema. PHYSICAL EXAMINATION: CHEST: Coarse breath sounds bilaterally. HEART: Regular, no murmurs. EXTREMITIES: +1/3 bilateral lower extremity edema, negative Homans sign. HEENT: No scleral icterus. NECK: No cervical lymphadenopathy. ABDOMEN: Soft, nontender, nondistended. SKIN: Along the left second digit along the medial aspect of the dry eschar approximately 1.5 x 1 cm in size with some surrounding redness, no fluctuance to indicate an abscess. LABORATORY DATA: WBC 8.9, hemoglobin 10.2, hematocrit 31, platelets 242. BUN 11, creatinine 0.93. ASSESSMENT AND PLAN: A 60-year-old male with cardiorespiratory arrest, status post CPR, intubation and mechanical ventilation. His status is critical; however, appears to be stable and slowly improving. He does have a lesion along the left second digit, which is a dry eschar, most likely secondary to chronic wound with no abscess and we will recommend conservative management with continuation of antibiotics and continued monitoring. However, if redness, erythema as well as fluctuance develops, he may need incision and drainage. Job ID: [id number] DocumentID: [id number] Dictated Date: 12/24/2020 10:26:46 Latent Fingerprint Examiner Date: 12/24/2020 10:46:03 Dictated By: KATIE MORIN MD
--- NOTE | 2020-12-24 11:43 | Progress Note - Hospitalist ---
Subjective HPI/CC On Admission Date Seen by Provider: Dec 24, 2020 Time Seen by Provider: 11:45 Chief complaint: Respiratory failure History present illness: This is a 60-year-old white male known to this examiner from prior hospital stays who presents to the ER via EMS after a phone call to 911 with shortness of breath. Patient was found to be in agonal breathing and required intubation. PICC line was placed due to poor venous access and required PICC line to save his life. No other details obtained. Subjective/Events-last exam Patient still intubated Agitation at times Patient has severe chronic debility Supportive care continues Focused Exam Lactate Level 12/22/20 10:08: Lactic Acid Level 3.29*H 12/22/20 13:40: Lactic Acid Level 1.72 Time of Focused Exam: 11:00 Objective Exam Vital Signs Vital Signs Date Time Temp Pulse Resp B/P (MAP) Pulse Ox O2 Delivery O2 Flow Rate FiO2 12/25/20 05:18 92 124/62 12/25/20 05:15 37.3 20 97 Mechanical Ventilator 40.00 12/25/20 04:00 40 Capillary Refill : Less Than 3 Seconds General Appearance: Chronically ill, Obese, Other (Sedated and intubated) Respiratory: Lungs Clear, Normal Breath Sounds Results/Procedures Lab Laboratory Tests 12/24/20 15:27 12/24/20 23:00 12/25/20 04:40 Patient resulted labs reviewed. Assessment/Plan Assessment and Plan Assess & Plan/Chief Complaint Appreciate eICU Vent management Chronically debilitated Critical Care Ventilator Management DEIRDRE DIANA DO Dec 24, 2020 11:43
[2020-12-24] MEDS ORDERED: MAGNESIUM 1 GM/100 ML IVPB 100 ML IV ONE (13:30)
[2020-12-24] MEDS: ENOXAPARIN 40 MG/0.4 ML (LOVENOX) SYR SC SCH (13:43)
--- NOTE | 2020-12-24 14:17 | Consultation-Cardiology ---
HPI-Cardiology Cardiology Consultation: Date of Consultation 12/24/20 Time Seen by a Provider: 13:20 Date of Admission Attending Physician Shereen Diana DO Admitting Physician Socrates Hurtado MD Consulting Physician ALEXANDER CATES MD, MA, FACP, FACC, [facility] [place], CCDS Physician requesting consult: Dr Diana HPI: Chief Complaint: Reason for Cardiology consult: Shortness of breath HPI 60 yo man admitted with ac resp failure. Also reported have been pulseless at home at some point, but EMT did not document any pulselessness or any cardiac arrest on ECG/monitor. He himself is unable to provide any history since he is currently intubated and on mech vent. Review of Systems-Cardiology Review of Systems Constitutional: other (ROS cannot be obtained because he is on mech vent and is unresponsive) All Other Systems Reviewed Negative Unless Noted: Yes [id number] Hx Patient Social History Marrital Status: single Employed/Student: unemployed Smoking Status: Unknown if Ever Smoked 2nd Hand Smoke Exposure: Yes (PARENTS SMOKED) Have you traveled recently?: Unable to obtain Alcohol Use?: Unable to obtain Pt feels they are or have been: Unable to obtain Immunizations Up To Date Tetanus Booster (TDap): Unknown Date of Pneumonia Vaccine: Aug 18, 2013 Past Medical History PMH As described under Assessment. Family Medical History Family History: Congestive heart failure 19 MOTHER Family history: Arthritis 19 FATHER 19 MOTHER Family history: Cardiovascular disease 19 FATHER 19 MOTHER Family history: Diabetes mellitus 19 FATHER Family history: Glaucoma 19 MOTHER Family history: Hypertension 19 FATHER 19 MOTHER Family history: Osteoporosis 19 MOTHER Hearing loss 19 MOTHER Heart disease 19 FATHER 19 MOTHER Myocardial infarction 19 FATHER 19 MOTHER (DBL BYPASS) Stroke 19 MOTHER (MICRO STROKES) No Family History of: Abdominal aortic aneurysm Sony's disease Alcoholism Aphasia Cancer Cancer of colon Cataract Chest pain Congenital heart disease Cystic fibrosis Dementia Dysphagia Family history: Allergy Family history: Alzheimer's disease Family history: Asthma Family history: Breast disease Family history: Coronary thrombosis Family history: Gastrointestinal disease Family history: Thyroid disorder Headache Hereditary disease History of - anemia History of - disorder History of - respiratory disease History of drug abuse Human immunodeficiency virus (HIV) seropositivity Hypercholesterolemia Infertile Kidney disease Malignant neoplasm of lung Parkinson's disease Prostate cancer Psychotic disorder Seizure disorder Tuberculosis Visual impairment Allergies and Home Medications Allergies Coded Allergies: aspirin (Verified Allergy, Severe, 12/10/17) egg (Verified Allergy, Intermediate, Vomiting, 2/1/21) Penicillins (Unverified Allergy, Unknown, 07/19/13) Sulfa (Sulfonamide Antibiotics) (Unverified Allergy, Unknown, 07/19/13) lactose (Unverified Allergy, Unknown, 12/10/17) CAUSES GAS lidocaine (Verified Allergy, Unknown, 01/06/16) peanut (Unverified Allergy, Unknown, air closes off, 07/19/13) strawberry (Unverified Allergy, Unknown, airway closes off, 07/19/13) codeine (Unverified Adverse Reaction, Mild, NAUSEA, 02/03/14) Uncoded Allergies: ENVIRONMENTAL (Allergy, Unknown, 07/19/13) raw egg whites (Adverse Reaction, Unknown, upset stomach, 12/09/17) Patient Home Medication List Home Medication List Reviewed: Yes Amlodipine Besylate (Amlodipine Besylate) 10 Mg Tablet, 10 MG PO DAILY, (Reported) Entered as Reported by: DEDRICK CARPENTER on 02/04/19836 Last Action: Reviewed Atorvastatin Calcium (Lipitor) 40 Mg Tablet, 40 MG PO HS, (Reported) Entered as Reported by: DEDRICK CARPENTER on 02/04/19836 Last Action: Reviewed Cyclobenzaprine HCl (Cyclobenzaprine HCl) 5 Mg Tablet, 5 MG PO TID PRN for MUSCLE CRAMPS, (Reported) Entered as Reported by: DEDRICK CARPENTER on 12/23/201514 Last Action: Reviewed Doxycycline Hyclate (Doxycycline Hyclate) 100 Mg Tablet, 100 MG PO BID, (Reported) Entered as Reported by: DEDRICK CARPENTER on 12/23/20 151 Last Action: Reviewed Duloxetine HCl (Duloxetine HCl) 60 Mg Capsule.dr, 60 MG PO 0900,1700, (Reported) Entered as Reported by: BILL CARIAS on 03/21/20 1545 Last Action: Reviewed Furosemide (Furosemide) 40 Mg Tablet, 40 MG PO DAILY, (Reported) Entered as Reported by: DEDRICK CARPENTER on 05/24/20 1028 Last Action: Reviewed Glimepiride (Amaryl) 1 Mg Tab, 1 MG PO DAILY, (Reported) Entered as Reported by: DEDRICK CARPENTER on 02/04/19836 Last Action: Reviewed Insulin Aspart (Novolog Flexpen) 300 Units/3 Ml Solution, 5 UNITS SQ TID, (Reported) Entered as Reported by: DEDRICK CARPENTER on 12/23/201514 Last Action: Reviewed Insulin Detemir (Levemir Flextouch) 100 Unit/1 Ml Insuln.pen, 15 UNIT SQ HS, (Reported) Entered as Reported by: DEDRICK CARPENTER on 02/04/19 0910 Last Action: Reviewed Losartan Potassium (Losartan Potassium) 100 Mg Tablet, 100 MG PO DAILY, (Reported) Entered as Reported by: DEDRICK CARPENTER on 11/11/19 164 Last Action: Reviewed Metoprolol Tartrate (Metoprolol Tartrate) 50 Mg Tablet, 50 MG PO 0900,1700, (Reported) Entered as Reported by: DEDRICK CARPENTER on 11/11/191647 Last Action: Reviewed Mupirocin (Mupirocin) 22 Gm Oint...g., 1 APPLIC TP BID, (Reported) Entered as Reported by: DEDRICK CARPENTER on 12/23/201514 Last Action: Reviewed Potassium Chloride (Potassium Chloride) 10 Meq Tab.er.prt, 10 MEQ PO DAILY, (Reported) Entered as Reported by: BILL CARIAS on 03/21/20 1545 Last Action: Reviewed Sitagliptin Phos/Metformin HCl (Janumet 50-1,000 mg Tablet) 1 Each Tablet, 1 EACH PO 0900,1700, (Reported) Entered as Reported by: DEDRICK CARPENTER on 02/04/19 0822 Last Action: Reviewed Tobramycin/Dexamethasone (Tobradex Eye Ointment) 3.5 Gm Oint, 1 APPLIC OP TID, (Reported) Entered as Reported by: DEDRICK CARPENTER on 12/23/201514 Last Action: Reviewed Discontinued Medications Acetaminophen (Tylenol 8 Hour) 650 Mg Tablet.er, 1,300 MG PO Q6H PRN for PAIN- MILD (1-4), (Reported) Discontinued Reason: No Longer Taking Entered as Reported by: DEDRICK CARPENTER on 05/24/20 1027 Last Action: Discontinued Cefdinir (Cefdinir) 300 Mg Capsule, 300 MG PO BID Discontinued Reason: No Longer Taking Prescribed by: SHEREEN DIANA on 05/26/20 1146 Last Action: Discontinued Clopidogrel Bisulfate (Plavix) 75 Mg Tablet, 75 MG PO DAILY, (Reported) Discontinued Reason: No Longer Taking Entered as Reported by: RUPA MARTINEZ on 09/25/182055 Last Action: Discontinued Multivit-Min/FA/Lycopen/Lutein (Centrum Silver Men Tablet) 1 Each Tablet, 1 EACH PO DAILY, (Reported) Discontinued Reason: No Longer Taking Entered as Reported by: DEDRICK CARPENTER on 05/24/20 1029 Last Action: Discontinued Nitroglycerin (Nitroglycerin) 0.4 Mg Tab.subl, 0 MG SL UD PRN for CHEST PAIN (ANGINA) Discontinued Reason: Duplicate Order Prescribed by: SHEREEN DIANA on 05/26/20 114 Last Action: Discontinued [place]-3 Fatty Acids/Fish Oil ([place] 3 1,000 mg Softgel) 1 Each Capsule, 1 EACH PO DAILY, (Reported) Discontinued Reason: No Longer Taking Entered as Reported by: DEDRICK CARPENTER on 02/04/19825 Last Action: Discontinued Physical Exam-Cardiology Physical Exam Vital Signs/I&O 12/24/20 12/24/20 12/24/20 12/24/20 02:18 03:00 03:03 04:00 Temp 37.0 37.2 37.0 Pulse 98 103 97 Resp B/P (MAP) 155/77 141/77 Pulse Ox 93 93 94 O2 Delivery Mechanical Ventilator Mechanical Ventilator Mechanical Ventilator O2 Flow Rate 40.00 40.00 40.00 FiO2 40 12/24/20 12/24/20 12/24/20 12/24/20 04:03 04:33 04:34 04:38 Pulse 103 103 103 Resp 35 Pulse Ox 94 94 O2 Delivery Mechanical Ventilator FiO2 40 12/24/20 12/24/20 12/24/20 12/24/20 05:00 06:00 06:15 06:30 Temp 37.0 36.9 36.9 36.9 Pulse 104 104 102 101 Resp 18 B/P (MAP) 157/80 167/83 159/79 152/82 Pulse Ox 93 93 93 94 O2 Delivery Mechanical Ventilator Mechanical Ventilator O2 Flow Rate 40.00 40.00 12/24/20 12/24/20 12/24/20 12/24/20 06:45 07:00 07:00 07:15 Temp 36.9 36.9 36.9 Pulse 100 105 104 109 Resp 25 33 B/P (MAP) 161/83 167/90 173/84 Pulse Ox 92 94 O2 Delivery Mechanical Ventilator O2 Flow Rate 40.00 12/24/20 12/24/20 12/24/20 12/24/20 07:20 07:30 07:41 07:45 Temp 36.9 36.9 36.9 Pulse 111 111 111 Resp 23 B/P (MAP) 167/85 172/84 Pulse Ox 92 92 92 FiO2 40 12/24/20 12/24/20 12/24/20 12/24/20 08:00 08:15 08:30 08:32 Temp 36.9 36.8 36.8 Pulse 111 111 110 Resp B/P (MAP) 167/85 131/82 173/89 Pulse Ox 92 91 92 92 O2 Delivery Mechanical Ventilator Mechanical Ventilator O2 Flow Rate 40.00 FiO2 40 12/24/20 12/24/20 12/24/20 12/24/20 08:45 08:47 08:47 09:00 Temp 36.8 36.8 Pulse 109 108 108 109 Resp B/P (MAP) 167/82 167/82 167/82 171/85 Pulse Ox 93 93 O2 Delivery Mechanical Ventilator O2 Flow Rate 40.00 12/24/20 12/24/20 12/24/20 12/24/20 09:15 09:30 09:45 09:51 Temp 36.9 36.9 36.9 Pulse 107 107 107 107 Resp B/P (MAP) 165/90 162/85 164/89 Pulse Ox 94 94 95 FiO2 40 12/24/20 12/24/20 12/24/20 12/24/20 10:00 10:15 10:30 10:45 Temp 36.9 37.0 37.0 37.1 Pulse 107 109 112 112 Resp 24 B/P (MAP) 161/84 155/84 165/93 164/83 Pulse Ox 94 96 93 93 O2 Delivery Mechanical Ventilator O2 Flow Rate 40.00 12/24/20 12/24/20 12/24/20 12/24/20 11:00 11:15 11:30 11:40 Temp 37.1 37.1 37.1 37.1 Pulse 112 110 108 Resp B/P (MAP) 159/89 157/72 140/67 Pulse Ox 94 96 95 O2 Delivery Mechanical Ventilator O2 Flow Rate 40.00 12/24/20 12/24/20 12/24/20 12/24/20 11:45 12:00 12:15 12:30 Temp 37.1 37.1 37.2 37.3 Pulse 106 104 103 107 Resp 20 20 21 20 B/P (MAP) 136/66 128/63 134/64 156/81 Pulse Ox 96 96 95 92 O2 Delivery Mechanical Ventilator O2 Flow Rate 40.00 12/24/20 12/24/20 12/24/20 12/24/20 12:45 12:51 13:00 13:17 Temp 37.4 37.4 Pulse 104 104 107 104 Resp 23 22 B/P (MAP) 170/70 166/77 128/63 Pulse Ox 93 94 O2 Delivery Mechanical Ventilator O2 Flow Rate 40.00 12/24/20 13:17 Pulse 104 B/P (MAP) 128/63 12/24/20 00:00 Intake Total 2440 ml Output Total 975 ml Balance 1465 ml Capillary Refill : Less Than 3 Seconds Constitutional: other (On mech vent, unresponsive) HEENT: PERRL; No xanthelasmas are seen Neck: other (carotids are palpable) Respiratory: other (on mech vent, good air entry that is bilaterally symmetric) Cardiovascular: regular rate-rhythm, S1 and S2, systolic murmur (faint VALENTÍN at card base) Gastrointestinal: distended, audible bowel sounds Extremities: other (mild to mod edema of both legs); No clubbing, No cyanosis Neurologic/Psychiatric: other (on mec vent, unresponsive) Skin: normal color, warm/dry Data Review Labs Laboratory Tests 12/23/20 17:55: Glucometer 174H 12/23/20 22:58: Glucometer 193H 12/24/20 04:00: White Blood Count 8.9, Red Blood Count 3.45L, Hemoglobin 10.2L, Hematocrit 31L, Mean Corpuscular Volume 90, Mean Corpuscular Hemoglobin 30, Mean Corpuscular Hemoglobin Concent 33, Red Cell Distribution Width 14.6H, Platelet Count 242, Mean Platelet Volume 9.3, Immature Granulocyte % (Auto) 0, Neutrophils (%) (Auto) 77H, Lymphocytes (%) (Auto) 11L, Monocytes (%) (Auto) 8, Eosinophils (%) (Auto) 3, Basophils (%) (Auto) 1, Neutrophils # (Auto) 6.8, Lymphocytes # (Auto) 1.0, Monocytes # (Auto) 0.8, Eosinophils # (Auto) 0.3, Basophils # (Auto) 0.1, Immature Granulocyte # (Auto) 0.0, Blood Gas Puncture Site R RADIAL, Blood Gas Patient Temperature 37, Arterial Blood pH 7.38, Arterial Blood Partial Pressure CO2 35, Arterial Blood Partial Pressure O2 143H, Arterial Blood HCO3 21L, Arterial Blood Total CO2 21.7, Arterial Blood Oxygen Saturation 98, Arterial Blood Base Excess -3.6L, Kush Test YES-POS, Blood Gas Ventilator Setting YES, Blood Gas Inspired Oxygen 40%, Sodium Level 140, Potassium Level 3.7, Chloride Level 112H, Carbon Dioxide Level 19L, Anion Gap 9, Blood Urea Nitrogen 11, Creatinine 0.93, Estimat Glomerular Filtration Rate 83, BUN/Creatinine Ratio 12, Glucose Level 225H, Calcium Level 7.7L, Corrected Calcium 8.9, Phosphorus Level 2.7, Magnesium Level 2.1, Total Bilirubin 0.3, Aspartate Amino Transf (AST/SGOT) 11, Alanine Aminotransferase (ALT/SGPT) 11, Alkaline Phosphatase 69, Total Pr otein 5.3L, Albumin 2.5L 12/24/20 11:19: Glucometer 188H Microbiology 12/22/20 MRSA Screen - Final, Complete MRSA not isolated 12/22/20 Blood Culture - Preliminary, Resulted No growth 12/22/20 Urine Culture - Final, Complete NO GROWTH Laboratory Tests 12/23/20 05:23 12/24/20 04:00 A/P-Cardiology Assessment/Admission Diagnosis Ac resp failure that may partially be due to ac diastolic CHF - no arrhythmia recorded by EMS when they responded to the 911 call - Echo 12/24/20: LVEF 60-65%, mild conc LVH, PASP 20-25 mmHg CAD with h/o of prox LCx stenting ([place] 3x12) and mid RCA stenting ([place] 2.5x12). 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 Obesity, BMI 42 Discussion and Recomendations * Complex management * Continue clopidogrel via NGT * Continue beta-kelli (iv) * Exhibiting frequent PVCs. Replenish electrolytes because is currently on an infusion of furosemide that has been ordered by EICU * Monitor labs ALEXANDER CATES MD FACP FAC CCDS Dec 24, 2020 14:17
[2020-12-24] MEDS ORDERED: CLOPIDOGREL 75 MG (PLAVIX) TABLET PO ONE (14:30)
[2020-12-24 14:44] VITALS: BP 142/70
[2020-12-24 15:54] LABS: CALCIUM 7.4 MG/DL (8.5-10.1); CREATININE SERUM 0.86 MG/DL (0.60-1.30); POTASSIUM 5.9 MMOL/L (3.6-5.0)
[2020-12-24] MEDS ORDERED: CLOPIDOGREL 75 MG (PLAVIX) TABLET PO NR (17:00)
[2020-12-24] MEDS: meTOprolol 5 MG/5 ML (LOPRESSOR) VIAL IV SCH ×2 (17:01→23:56)
[2020-12-24] MEDS ORDERED: DEXTROSE 50% 50 ML (IMS) SYR IV ONE (17:15)
[2020-12-24] MEDS ORDERED: SOD POLYSTERENE 15 GM/60 ML (KAYEXALATE) UNIT DOSE NG ONE (17:15)
[2020-12-24] MEDS ORDERED: D5W 1000 ML IV SOLUTION 1,000 ML IV SCH (17:15)
[2020-12-24] MEDS ORDERED: inSUlin (REGULAR) HUMAN 1 UNIT/0.01 ML (CHARGE PER UNIT) IV SCH (17:15)
[2020-12-24] MEDS ORDERED: inSUlin (REGULAR) HUMAN 1 UNIT/0.01 ML (CHARGE PER UNIT) ONE (17:25)
[2020-12-24] MEDS ORDERED: D5W 1000 ML IV SOLUTION 1,000 ML ONE (17:26)
[2020-12-24] MEDS ORDERED: SOD POLYSTERENE 15 GM/60 ML (KAYEXALATE) UNIT DOSE ONE (17:26)
[2020-12-24] MEDS ORDERED: DEXTROSE 50% 50 ML (IMS) SYR ONE (17:26)
[2020-12-24 20:07] VITALS: BP 109/63
[2020-12-24 21:52] VITALS: BP 133/71
[2020-12-24 23:28] LABS: CALCIUM 7.9 MG/DL (8.5-10.1); CREATININE SERUM 1.17 MG/DL (0.60-1.30); POTASSIUM 3.4 MMOL/L (3.6-5.0)
[2020-12-25] MEDS: POTASSIUM CL 10MEQ/50ML IVPB 50 ML IV SCH ×4 (01:01→06:53)
[2020-12-25] MEDS: PROPOFOL DRIP (ICU) 100 ML IV SCH ×3 (01:52→05:18)
[2020-12-25 02:40] VITALS: BP 128/65
[2020-12-25] MEDS: RT-ALBUTEROL/IPRATROPIUM 3 ML (DUONEB) VIAL INH SCH ×4 (02:40→15:32)
[2020-12-25 05:17] LABS: ABG BASE EXCESS -1.6 MMOL/L (-2.5-2.5); ABG OXYGEN SATURATION 95 % (94-100); ABG PCO2 40 MMHG (35-45); ABG PH 7.38 (7.37-7.43); ABG PO2 72 MMHG (79-93); ABG TCO2 23.9 MMOL/L (21.0-31.0)
[2020-12-25] MEDS: MAGNESIUM 1 GM/100 ML IVPB 100 ML IV SCH ×3 (05:21→07:57)
[2020-12-25] MEDS: meTOprolol 5 MG/5 ML (LOPRESSOR) VIAL IV SCH ×2 (05:23→11:16)
[2020-12-25] MEDS: CEFEPIME 1,000 MG/SWFI 10 ML IV PUSH IV SCH ×8 (05:23→23:28)
[2020-12-25 05:24] LABS: ALLENS TEST YES-POS; INSPIRED O2 40%; PATIENT TEMP 37.3; VENTILATOR YES
[2020-12-25 05:26] LABS: BASOPHILS % (AUTO) 0 % (0-10); EOSINOPHILS # (AUTO) 0.6 10^3/uL (0.0-0.3); EOSINOPHILS % (AUTO) 7 % (0-10); HEMATOCRIT 32 % (40-54); HEMOGLOBIN 10.2 g/dL (13.3-17.7); LYMPHOCYTES # (AUTO) 1.1 10^3/uL (1.0-4.0); LYMPHOCYTES % (AUTO) 15 % (12-44); MEAN CORPUSCULAR HEMOGLOBIN 30 pg (25-34); MEAN CORPUSCULAR HGB CONC 32 g/dL (32-36); MEAN CORPUSCULAR VOLUME 91 fL (80-99); MEAN PLATELET VOLUME 9.4 fL (9.0-12.2); MONOCYTES # (AUTO) 0.7 10^3/uL (0.0-1.0); MONOCYTES % (AUTO) 9 % (0-12); NEUTROPHILS # (AUTO) 5.1 10^3/uL (1.8-7.8); NEUTROPHILS % (AUTO) 68 % (42-75); PLATELET COUNT 252 10^3/uL (130-400); WHITE BLOOD COUNT 7.5 10^3/uL (4.3-11.0)
[2020-12-25 05:41] LABS: ALBUMIN 2.4 GM/DL (3.2-4.5); BILIRUBIN,TOTAL 0.3 MG/DL (0.1-1.0); CREATININE SERUM 1.24 MG/DL (0.60-1.30); MAGNESIUM 1.7 MG/DL (1.6-2.4); PHOSPHORUS 3.6 MG/DL (2.3-4.7); POTASSIUM 3.4 MMOL/L (3.6-5.0); TOTAL PROTEIN 5.4 GM/DL (6.4-8.2)
[2020-12-25] MEDS: FUROSEMIDE INJECTION 120 MG in D5W 100 ML IVPB 108 ML IV SCH ×2 (05:42→21:52)
[2020-12-25] MEDS: VASOPRESSIN INJECTION 20 UNIT in NS (IVPB) 100 ML IV SCH ×2 (05:44→19:04)
[2020-12-25] MEDS: inSUlin ASPART (NovoLOG) 1 UNIT/0.01 ML (CHARGE PER UNIT) SQ SCH ×2 (05:50→11:35)
[2020-12-25 07:24] VITALS: BP 112/61
--- NOTE | 2020-12-25 07:33 | Diagnostic Imaging Report ---
INDICATION: Respiratory failure, mechanical ventilation, ICU follow-up. TECHNIQUE: Single view chest 5:13 AM. CORRELATION STUDY: 12/24/2020 FINDINGS: Endotracheal tube tip projecting with the trachea interposed between the clavicles. Right-sided central line tip not well visualized. Gastric tube is also present passing below the left hemidiaphragm and edge of the film likely into the stomach. Heart size remains enlarged, mediastinum prominent. Vasculature overall appears slightly less congested from prior. Scattered bilateral pulmonary opacities particularly in the mid and lower lung garcia along with small effusions do persist but also appear improved. IMPRESSION: 1. Generally stable appearance about the support lines and tubes. 2. Findings of vascular congestion do persist but overall appears slightly improved from previous day. Slight improvement in aeration to the lung garcia. Dictated by: Dictated on workstation # [id number]
[2020-12-25] MEDS: CLOPIDOGREL 75 MG (PLAVIX) TABLET PO SCH (08:28)
[2020-12-25] MEDS: PANTOPRAZOLE 40 MG (PROTONIX) VIAL IV SCH (08:28)
[2020-12-25] MEDS: NYSTATIN CREAM (MYCOSTATIN) 30 GM TUBE TP SCH ×3 (08:29→20:19)
[2020-12-25] MEDS: MICONAZOLE 2% POWDER (DESENEX AF) 90 GM TOP SCH ×2 (08:29→20:18)
--- NOTE | 2020-12-25 09:04 | Tele-ICU Progress Note ---
Subjective Date Seen by a Provider: Dec 25, 2020 Time Seen by a Provider: 08:00 Subjective/Events-last exam This virtual visit was conducted using real time audio/video. Thank you for asking us to see this patient for respiratory insufficiency following OOH arrest and DKA. Sedated on vent. VSS O2 sat 97% on 30%/+5 HEENT: No obvious masses, adenopathy or JVD. Chest: clear to auscultation. CV: RRR S1 S2 No murmur or added sounds. Abd: Non-tender. Bowel sounds Y. : Unremarkable. Thompson Y. WELFARE ADMINISTRATOR/psychiatric: Alert and oriented, grossly intact. No obvious focal findings. Extremities: 1-2 + edema. Capillary refill < 3 seconds. Skin: unremarkable. Results: Elevated BG 209, triglcerides. Decreased K 3.4, alb 2.4. ABG 7.38/40/72. CXR congested but improved. A/P: Respiratory insufficiency/distress: Consider SBT this AM. Available chart/ vitals / labs / images reviewed. Video assessment done using teleICU camera, rest of exam as per RN. Monitor for increasing oxygenation needs. Critical Care: critically ill patient. Cont. duonebs, lasix, cefipime, insulin, Plavix. Consider changing Propofol to Precedex if not extubated. Discussed with XOCHITL Quiles. Asked RN to reach out to eICU if any questions or concerns later. Time spent with patient/coordination of care with other health professionals (mins): 30 Sepsis Event Evaluation Height, Weight, BMI Height: 5'9.00" Weight: 247lbs. 7.0oz. [id number]; 32.00 BMI Method:Stated Focused Exam Lactate Level 12/22/20 10:08: Lactic Acid Level 3.29*H 12/22/20 13:40: Lactic Acid Level 1.72 Time of Focused Exam: 11:00 Exam Exam Patient acknowledged, consented, and participated in this virtual visit which was conducted using real time audio/video Vital Signs Date Time Temp Pulse Resp B/P (MAP) Pulse Ox O2 Delivery O2 Flow Rate FiO2 12/25/20 08:00 37.3 90 17 144/76 98 Mechanical Ventilator 40.00 12/25/20 07:45 37.4 89 134/64 12/25/20 07:30 37.4 87 20 120/62 97 12/25/20 07:24 85 20 97 30 12/25/20 07:15 37.4 80 20 112/61 97 12/25/20 07:00 81 12/25/20 07:00 37.4 81 20 115/60 97 Mechanical Ventilator 40.00 12/25/20 06:45 37.4 81 20 105/57 97 12/25/20 06:30 37.5 81 20 106/59 97 12/25/20 06:15 37.5 83 20 113/59 97 12/25/20 06:00 37.5 85 130/67 Mechanical Ventilator 40.00 12/25/20 05:45 37.4 86 20 152/79 Mechanical Ventilator 40.00 12/25/20 05:30 37.4 90 16 165/91 Mechanical Ventilator 40.00 12/25/20 05:18 92 124/62 12/25/20 05:15 37.3 92 20 165/89 97 Mechanical Ventilator 40.00 12/25/20 05:00 37.3 95 22 148/85 97 Mechanical Ventilator 40.00 12/25/20 05:00 98 24 96 12/25/20 04:45 37.3 90 20 131/71 97 Mechanical Ventilator 40.00 12/25/20 04:30 37.3 109/60 Mechanical Ventilator 40.00 12/25/20 04:15 37.3 89 20 108/57 97 Mechanical Ventilator 40.00 12/25/20 04:00 95 Mechanical Ventilator 40 12/25/20 04:00 37.3 116/58 Mechanical Ventilator 40.00 12/25/20 03:45 37.4 92 20 124/62 97 Mechanical Ventilator 40.00 12/25/20 03:30 37.4 95 20 126/66 97 Mechanical Ventilator 40.00 12/25/20 03:15 37.4 96 20 136/68 97 Mechanical Ventilator 40.00 12/25/20 03:00 37.4 94 20 119/63 97 Mechanical Ventilator 40.00 12/25/20 02:45 37.4 93 20 132/69 97 Mechanical Ventilator 40.00 12/25/20 02:40 93 20 96 40 12/25/20 02:30 37.4 92 20 128/65 92 Mechanical Ventilator 40.00 12/25/20 02:15 37.5 89 20 112/60 92 Mechanical Ventilator 40.00 12/25/20 02:00 37.5 90 20 112/58 90 Mechanical Ventilator 40.00 12/25/20 01:53 91 119/65 12/25/20 01:52 Mechanical Ventilator 40.00 12/25/20 01:52 91 119/65 12/25/20 01:45 37.6 85 20 123/65 90 12/25/20 01:30 37.6 137/74 Mechanical Ventilator 30.00 12/25/20 01:15 37.6 87 20 132/69 95 Mechanical Ventilator 30.00 12/25/20 01:00 37.6 86 20 129/69 94 Mechanical Ventilator 30.00 12/25/20 01:00 90 12/25/20 00:45 37.6 86 20 109/62 93 Mechanical Ventilator 30.00 12/25/20 00:30 37.6 87 20 110/61 93 Mechanical Ventilator 30.00 12/25/20 00:15 37.6 112/61 Mechanical Ventilator 30.00 12/25/20 00:00 37.6 91 20 119/65 94 Mechanical Ventilator 30.00 12/24/20 23:59 94 Mechanical Ventilator 30 12/24/20 23:45 37.6 94 20 127/70 94 Mechanical Ventilator 30.00 12/24/20 23:30 37.6 98 21 139/74 93 Mechanical Ventilator 30.00 12/24/20 23:15 37.7 97 21 136/67 93 Mechanical Ventilator 30.00 12/24/20 23:00 37.7 20 119/65 93 Mechanical Ventilator 30.00 12/24/20 22:45 37.7 90 20 105/59 93 Mechanical Ventilator 40.00 12/24/20 22:30 37.7 99 20 117/62 94 Mechanical Ventilator 40.00 12/24/20 22:15 37.7 101 21 133/65 92 Mechanical Ventilator 40.00 12/24/20 22:00 37.7 101 36 120/63 94 Mechanical Ventilator 40.00 12/24/20 21:52 98 29 97 40 12/24/20 21:45 37.6 89 20 133/71 96 Mechanical Ventilator 40.00 12/24/20 21:30 37.6 91 20 146/76 95 Mechanical Ventilator 40.00 12/24/20 21:15 37.6 91 20 147/78 96 Mechanical Ventilator 40.00 11/6/21 21:13 87 109/63 12/24/20 21:11 87 109/63 12/24/20 21:00 37.6 90 20 137/75 97 Mechanical Ventilator 40.00 12/24/20 20:45 37.7 87 20 120/65 97 Mechanical Ventilator 40.00 12/24/20 20:30 37.7 86 20 118/63 97 Mechanical Ventilator 40.00 12/24/20 20:15 37.7 87 18 117/63 96 Mechanical Ventilator 40.00 12/24/20 20:07 87 20 96 40 12/24/20 20:00 97 Mechanical Ventilator 40 12/24/20 20:00 37.7 87 20 109/63 96 Mechanical Ventilator 40.00 12/24/20 19:45 37.7 87 20 116/66 96 Mechanical Ventilator 40.00 12/24/20 19:30 37.7 87 20 121/66 96 Mechanical Ventilator 40.00 12/24/20 19:15 37.7 87 20 107/62 95 Mechanical Ventilator 40.00 12/24/20 19:00 87 12/24/20 19:00 37.7 87 21 105/60 96 Mechanical Ventilator 40.00 12/24/20 18:45 37.7 88 20 112/61 96 12/24/20 18:30 37.7 88 20 114/64 96 12/24/20 18:15 37.7 89 20 124/68 96 12/24/20 18:00 37.7 91 20 151/79 95 Mechanical Ventilator 40.00 12/24/20 17:45 37.7 90 22 142/77 95 12/24/20 17:34 89 130/69 12/24/20 17:33 89 130/69 12/24/20 17:30 37.7 89 21 130/69 95 12/24/20 17:15 37.6 86 20 128/79 94 12/24/20 17:00 37.6 98 21 139/69 95 Mechanical Ventilator 40.00 12/24/20 16:45 37.6 100 22 138/75 94 12/24/20 16:30 37.6 101 21 139/74 94 12/24/20 16:15 37.6 101 21 142/76 94 12/24/20 16:00 37.6 102 20 146/76 95 Mechanical Ventilator 40.00 12/24/20 15:56 92 Mechanical Ventilator 40 12/24/20 15:45 37.6 105 22 153/80 95 12/24/20 15:30 37.6 105 21 153/80 93 12/24/20 15:15 37.6 104 22 141/74 94 12/24/20 15:00 37.6 105 21 145/76 93 Mechanical Ventilator 40.00 12/24/20 14:45 37.6 101 22 142/70 95 12/24/20 14:44 101 22 95 40 12/24/20 14:30 37.6 101 21 127/62 95 12/24/20 14:15 37.6 104 20 146/69 95 12/24/20 14:00 37.6 105 23 150/79 94 Mechanical Ventilator 40.00 12/24/20 13:45 37.5 110 24 177/83 93 12/24/20 13:30 37.4 109 25 165/76 12/24/20 13:17 104 128/63 12/24/20 13:17 104 128/63 12/24/20 13:15 37.4 108 24 168/81 93 12/24/20 13:00 37.4 107 22 166/77 94 Mechanical Ventilator 40.00 12/24/20 12:51 104 12/24/20 12:45 37.4 104 23 170/70 93 12/24/20 12:30 37.3 107 20 156/81 92 12/24/20 12:30 92 Mechanical Ventilator 40 12/24/20 12:15 37.2 103 21 134/64 95 12/24/20 12:00 37.1 104 20 128/63 96 Mechanical Ventilator 40.00 12/24/20 11:45 37.1 106 20 136/66 96 12/24/20 11:40 37.1 12/24/20 11:30 37.1 108 21 140/67 95 12/24/20 11:15 37.1 110 16 157/72 96 12/24/20 11:00 37.1 112 24 159/89 94 Mechanical Ventilator 40.00 12/24/20 10:45 37.1 112 24 164/83 93 12/24/20 10:30 37.0 112 27 165/93 93 12/24/20 10:15 37.0 109 21 155/84 96 12/24/20 10:00 36.9 107 18 161/84 94 Mechanical Ventilator 40.00 12/24/20 09:51 107 29 95 40 12/24/20 09:45 36.9 107 24 164/89 94 12/24/20 09:30 36.9 107 19 162/85 94 12/24/20 09:15 36.9 107 165/90 12/24/20 09:00 36.8 109 23 171/85 93 Mechanical Ventilator 40.00 I & O 12/25/20 07:00 Intake Total 2130 ml Output Total 6225 ml Balance -4095 ml Height & Weight Height: 5'9.00" Weight: 247lbs. 7.0oz. [id number]; 32.00 BMI Method:Stated General Appearance: Chronically ill, Obese, Other (Sedated and intubated) HEENT: Normal ENT Inspection (intubated) Neck: Normal Inspection, Non Tender, Supple Respiratory: Lungs Clear, Normal Breath Sounds Cardiovascular: No JVD, Normal Peripheral Pulses, Systolic Murmur, Tachycardia, Other (moderate nonpitting edema BLE) Capillary Refill: Less Than 3 Seconds Peripheral Pulses: 2+ Radial Pulses (R), 2+ Radial Pulses (L) Extremity: Normal Capillary Refill, Non Tender, Pedal Edema (moderate, bilateral) Neurologic/Psychiatric: Other (sedated, GCS 10T) Skin: Normal Color, Warm/Dry, Other (ulcer/lesion to L index finger with surrounding erythema) Lymphatic: No Adenopathy Results Lab Laboratory Tests 12/24/20 04:00 12/24/20 15:27 12/24/20 23:00 12/25/20 04:40 Assessment/Plan Assessment/Plan See free text. Critical Care: Ventilator Management ANABELA RANGEL MD Dec 25, 2020 09:04
--- NOTE | 2020-12-25 09:08 | Progress Note ---
Subjective Date Seen by a Provider: Dec 25, 2020 Time Seen by a Provider: 09:00 Subjective/Events-last exam pt remains on vent and sedated. remains critical but stable. no change in left hand wound. Focused Exam Lactate Level 12/22/20 10:08: Lactic Acid Level 3.29*H 12/22/20 13:40: Lactic Acid Level 1.72 Time of Focused Exam: 11:00 Objective Exam Vital Signs Date Time Temp Pulse Resp B/P (MAP) Pulse Ox O2 Delivery O2 Flow Rate FiO2 12/25/20 08:30 96 Mechanical Ventilator 40 12/25/20 08:00 37.3 90 17 144/76 98 Mechanical Ventilator 40.00 12/25/20 07:45 37.4 89 134/64 12/25/20 07:30 37.4 87 20 120/62 97 12/25/20 07:24 85 20 97 30 12/25/20 07:15 37.4 80 20 112/61 97 12/25/20 07:00 81 12/25/20 07:00 37.4 81 20 115/60 97 Mechanical Ventilator 40.00 12/25/20 06:45 37.4 81 20 105/57 97 12/25/20 06:30 37.5 81 20 106/59 97 12/25/20 06:15 37.5 83 20 113/59 97 12/25/20 06:00 37.5 85 130/67 Mechanical Ventilator 40.00 12/25/20 05:45 37.4 86 20 152/79 Mechanical Ventilator 40.00 12/25/20 05:30 37.4 90 16 165/91 Mechanical Ventilator 40.00 12/25/20 05:18 92 124/62 12/25/20 05:15 37.3 92 20 165/89 97 Mechanical Ventilator 40.00 12/25/20 05:00 37.3 95 22 148/85 97 Mechanical Ventilator 40.00 12/25/20 05:00 98 24 96 12/25/20 04:45 37.3 90 20 131/71 97 Mechanical Ventilator 40.00 12/25/20 04:30 37.3 109/60 Mechanical Ventilator 40.00 12/25/20 04:15 37.3 89 20 108/57 97 Mechanical Ventilator 40.00 12/25/20 04:00 95 Mechanical Ventilator 40 12/25/20 04:00 37.3 116/58 Mechanical Ventilator 40.00 12/25/20 03:45 37.4 92 20 124/62 97 Mechanical Ventilator 40.00 12/25/20 03:30 37.4 95 20 126/66 97 Mechanical Ventilator 40.00 12/25/20 03:15 37.4 96 20 136/68 97 Mechanical Ventilator 40.00 12/25/20 03:00 37.4 94 20 119/63 97 Mechanical Ventilator 40.00 12/25/20 02:45 37.4 93 20 132/69 97 Mechanical Ventilator 40.00 12/25/20 02:40 93 20 96 40 12/25/20 02:30 37.4 92 20 128/65 92 Mechanical Ventilator 40.00 12/25/20 02:15 37.5 89 20 112/60 92 Mechanical Ventilator 40.00 12/25/20 02:00 37.5 90 20 112/58 90 Mechanical Ventilator 40.00 12/25/20 01:53 91 119/65 12/25/20 01:52 Mechanical Ventilator 40.00 12/25/20 01:52 91 119/65 12/25/20 01:45 37.6 85 20 123/65 90 12/25/20 01:30 37.6 137/74 Mechanical Ventilator 30.00 12/25/20 01:15 37.6 87 20 132/69 95 Mechanical Ventilator 30.00 12/25/20 01:00 37.6 86 20 129/69 94 Mechanical Ventilator 30.00 12/25/20 01:00 90 12/25/20 00:45 37.6 86 20 109/62 93 Mechanical Ventilator 30.00 12/25/20 00:30 37.6 87 20 110/61 93 Mechanical Ventilator 30.00 12/25/20 00:15 37.6 112/61 Mechanical Ventilator 30.00 12/25/20 00:00 37.6 91 20 119/65 94 Mechanical Ventilator 30.00 12/24/20 23:59 94 Mechanical Ventilator 30 12/24/20 23:45 37.6 94 20 127/70 94 Mechanical Ventilator 30.00 12/24/20 23:30 37.6 98 21 139/74 93 Mechanical Ventilator 30.00 12/24/20 23:15 37.7 97 21 136/67 93 Mechanical Ventilator 30.00 12/24/20 23:00 37.7 20 119/65 93 Mechanical Ventilator 30.00 12/24/20 22:45 37.7 90 20 105/59 93 Mechanical Ventilator 40.00 12/24/20 22:30 37.7 99 20 117/62 94 Mechanical Ventilator 40.00 12/24/20 22:15 37.7 101 21 133/65 92 Mechanical Ventilator 40.00 12/24/20 22:00 37.7 101 36 120/63 94 Mechanical Ventilator 40.00 12/24/20 21:52 98 29 97 40 12/24/20 21:45 37.6 89 20 133/71 96 Mechanical Ventilator 40.00 12/24/20 21:30 37.6 91 20 146/76 95 Mechanical Ventilator 40.00 12/24/20 21:15 37.6 91 20 147/78 96 Mechanical Ventilator 40.00 12/24/20 21:13 87 109/63 12/24/20 21:11 87 109/63 12/24/20 21:00 37.6 90 20 137/75 97 Mechanical Ventilator 40.00 12/24/20 20:45 37.7 87 20 120/65 97 Mechanical Ventilator 40.00 12/24/20 20:30 37.7 86 20 118/63 97 Mechanical Ventilator 40.00 12/24/20 20:15 37.7 87 18 117/63 96 Mechanical Ventilator 40.00 12/24/20 20:07 87 20 96 40 12/24/20 20:00 97 Mechanical Ventilator 40 12/24/20 20:00 37.7 87 20 109/63 96 Mechanical Ventilator 40.00 12/24/20 19:45 37.7 87 20 116/66 96 Mechanical Ventilator 40.00 12/24/20 19:30 37.7 87 20 121/66 96 Mechanical Ventilator 40.00 12/24/20 19:15 37.7 87 20 107/62 95 Mechanical Ventilator 40.00 12/24/20 19:00 87 12/24/20 19:00 37.7 87 21 105/60 96 Mechanical Ventilator 40.00 12/24/20 18:45 37.7 88 20 112/61 96 12/24/20 18:30 37.7 88 20 114/64 96 12/24/20 18:15 37.7 89 20 124/68 96 12/24/20 18:00 37.7 91 20 151/79 95 Mechanical Ventilator 40.00 12/24/20 17:45 37.7 90 22 142/77 95 12/24/20 17:34 89 130/69 12/24/20 17:33 89 130/69 12/24/20 17:30 37.7 89 21 130/69 95 12/24/20 17:15 37.6 86 20 128/79 94 12/24/20 17:00 37.6 98 21 139/69 95 Mechanical Ventilator 40.00 12/24/20 16:45 37.6 100 22 138/75 94 12/24/20 16:30 37.6 101 21 139/74 94 12/24/20 16:15 37.6 101 21 142/76 94 12/24/20 16:00 37.6 102 20 146/76 95 Mechanical Ventilator 40.00 12/24/20 15:56 92 Mechanical Ventilator 40 12/24/20 15:45 37.6 105 22 153/80 95 12/24/20 15:30 37.6 105 21 153/80 93 12/24/20 15:15 37.6 104 22 141/74 94 12/24/20 15:00 37.6 105 21 145/76 93 Mechanical Ventilator 40.00 12/24/20 14:45 37.6 101 22 142/70 95 12/24/20 14:44 101 22 95 40 12/24/20 14:30 37.6 101 21 127/62 95 12/24/20 14:15 37.6 104 20 146/69 95 12/24/20 14:00 37.6 105 23 150/79 94 Mechanical Ventilator 40.00 12/24/20 13:45 37.5 110 24 177/83 93 12/24/20 13:30 37.4 109 25 165/76 12/24/20 13:17 104 128/63 12/24/20 13:17 104 128/63 12/24/20 13:15 37.4 108 24 168/81 93 12/24/20 13:00 37.4 107 22 166/77 94 Mechanical Ventilator 40.00 12/24/20 12:51 104 12/24/20 12:45 37.4 104 23 170/70 93 12/24/20 12:30 37.3 107 20 156/81 92 12/24/20 12:30 92 Mechanical Ventilator 40 12/24/20 12:15 37.2 103 21 134/64 95 12/24/20 12:00 37.1 104 20 128/63 96 Mechanical Ventilator 40.00 12/24/20 11:45 37.1 106 20 136/66 96 12/24/20 11:40 37.1 12/24/20 11:30 37.1 108 21 140/67 95 12/24/20 11:15 37.1 110 16 157/72 96 12/24/20 11:00 37.1 112 24 159/89 94 Mechanical Ventilator 40.00 12/24/20 10:45 37.1 112 24 164/83 93 12/24/20 10:30 37.0 112 27 165/93 93 12/24/20 10:15 37.0 109 21 155/84 96 12/24/20 10:00 36.9 107 18 161/84 94 Mechanical Ventilator 40.00 12/24/20 09:51 107 29 95 40 12/24/20 09:45 36.9 107 24 164/89 94 12/24/20 09:30 36.9 107 19 162/85 94 12/24/20 09:15 36.9 107 165/90 I & O 12/25/20 07:00 Intake Total 2130 ml Output Total 6225 ml Balance -4095 ml Capillary Refill : Less Than 3 Seconds General Appearance: No Apparent Distress HEENT: PERRL/EOMI Neck: Full Range of Motion Respiratory: Decreased Breath Sounds, Rhonci Cardiovascular: Regular Rate, Rhythm Gastrointestinal: normal bowel sounds, non tender, soft Extremity: Normal Capillary Refill Neurologic/Psychiatric: Other (vent/sedated) Skin: Normal Color Lymphatic: No Adenopathy Results Lab Laboratory Tests 12/24/20 11:19: Glucometer 188H 12/24/20 15:27: Sodium Level 130L, Potassium Level 5.9H, Chloride Level 106, Carbon Dioxide Level 18L, Anion Gap 6, Blood Urea Nitrogen 9, Creatinine 0.86, Estimat Glomerular Filtration Rate 91, BUN/Creatinine Ratio 10, Glucose Level 246H, Calcium Level 7.4L, Triglycerides Level 1375H 12/24/20 17:17: Glucometer 180H 12/24/20 23:00: Sodium Level 141, Potassium Level 3.4L, Chloride Level 111H, Carbon Dioxide Level 19L, Anion Gap 11, Blood Urea Nitrogen 10, Creatinine 1.17, Estimat Glomerular Filtration Rate 64, BUN/Creatinine Ratio 9, Glucose Level 214H, Calcium Level 7.9L 12/25/20 04:40: White Blood Count 7.5, Red Blood Count 3.46L, Hemoglobin 10.2L, Hematocrit 32L, Mean Corpuscular Volume 91, Mean Corpuscular Hemoglobin 30, Mean Corpuscular Hem oglobin Concent 32, Red Cell Distribution Width 14.8H, Platelet Count 252, Mean Platelet Volume 9.4, Immature Granulocyte % (Auto) 0, Neutrophils (%) (Auto) 68, Lymphocytes (%) (Auto) 15, Monocytes (%) (Auto) 9, Eosinophils (%) (Auto) 7, Basophils (%) (Auto) 0, Neutrophils # (Auto) 5.1, Lymphocytes # (Auto) 1.1, Monocytes # (Auto) 0.7, Eosinophils # (Auto) 0.6H, Basophils # (Auto) 0.0, Immature Granulocyte # (Auto) 0.0, Sodium Level 142, Potassium Level 3.4L, Chloride Level 111H, Carbon Dioxide Level 19L, Anion Gap 12, Blood Urea Nitrogen 11, Creatinine 1.24, Estimat Glomerular Filtration Rate 59, BUN/Creatinine Ratio 9, Glucose Level 209H, Calcium Level 8.0L, Corrected Calcium 9.3, Phosphorus Level 3.6, Magnesium Level 1.7, Total Bilirubin 0.3, Aspartate Amino Transf (AST/SGOT) 10, Alanine Aminotransferase (ALT/SGPT) 10, Alkaline Phosphatase 61, B-Type Natriuretic Peptide 30.0, Total Protein 5.4L, Albumin 2.4L 12/25/20 05:10: Blood Gas Puncture Site LEFT RADIAL, Blood Gas Patient Temperature 37.3, Arterial Blood pH 7.38, Arterial Blood Partial Pressure CO2 40, Arterial Blood Partial Pressure O2 72L, Arterial Blood HCO3 23, Arterial Blood Total CO2 23.9, Arterial Blood Oxygen Saturation 95, Arterial Blood Base Excess -1.6, Kush Test YES-POS, Blood Gas Ventilator Setting YES, Blood Gas Inspired Oxygen 40% Microbiology 12/22/20 Gram Stain - Final, Resulted 12/22/20 Sputum Culture - Preliminary, Resulted Usual upper respiratory linnette YEAST 12/22/20 Blood Culture - Preliminary, Resulted No growth 12/22/20 Urine Culture - Final, Complete NO GROWTH Assessment/Plan Assessment/Plan Assess & Plan/Chief Complaint cardiac arrest s/p cpr and vent with left hand eschar. no new area redness/erythema, no flunctunace. leave dry eschar for now. may need debridement once more stable. KATIE MORIN MD Dec 25, 2020 09:08
[2020-12-25 10:24] VITALS: BP 112/61
[2020-12-25] MEDS ORDERED: NON-FORMULARY MEDICATION 1 EA EA (Cyclobenzaprine HCl 5 MG) PO PRN (11:00)
--- NOTE | 2020-12-25 11:00 | Progress Note - Hospitalist ---
Subjective HPI/CC On Admission Date Seen by Provider: Dec 25, 2020 Time Seen by Provider: 10:30 Chief complaint: Respiratory failure History present illness: This is a 60-year-old white male known to this examiner from prior hospital stays who presents to the ER via EMS after a phone call to 911 with shortness of breath. Patient was found to be in agonal breathing and required intubation. PICC line was placed due to poor venous access and required PICC line to save his life. No other details obtained. Subjective/Events-last exam Patient extubated successfully Patient appears to be doing very well ABG was good before extubation Labs are okay Chest x-ray improved Review of Systems General: Fatigue, Malaise Focused Exam Lactate Level Time of Focused Exam: 11:00 Objective Exam Vital Signs Vital Signs Date Time Temp Pulse Resp B/P (MAP) Pulse Ox O2 Delivery O2 Flow Rate FiO2 12/25/20 15:33 94 High Flow N/C 5.00 12/25/20 15:00 106 20 167/85 12/25/20 12:00 37.5 12/25/20 10:24 30 Capillary Refill : Less Than 3 Seconds General Appearance: No Apparent Distress, WD/WN, Chronically ill, Obese Respiratory: No Accessory Muscle Use, No Respiratory Distress, Decreased Breath Sounds Cardiovascular: Regular Rate, Rhythm Neurologic/Psychiatric: Alert, Oriented x3, No Motor/Sensory Deficits, Normal Mood/Affect Results/Procedures Lab Laboratory Tests 12/24/20 23:00 12/25/20 04:40 Patient resulted labs reviewed. Assessment/Plan Assessment and Plan Assess & Plan/Chief Complaint Assessment: Status post respiratory arrest now extubated Chronic debility Diabetes Congestive heart failure Plan: Appreciate eICU Extubated Chronically debilitated Critical Care Ventilator Management DEIRDRE DIANA DO Dec 25, 2020 11:00
[2020-12-25] MEDS: NOREPINEPHRINE 8 MG/250 ML 250 ML IV SCH ×2 (11:15→22:52)
[2020-12-25] MEDS ORDERED: CYCLOBENZAPRINE 10 MG (FLEXERIL) TAB PO PRN (11:15)
[2020-12-25] MEDS: TOBRA/DEXAMETH (TOBRADEX) OPHTH OINT 3.5 GM TUBE OP SCH ×2 (12:01→20:20)
[2020-12-25] MEDS ORDERED: NON-FORMULARY MEDICATION 1 EA EA (Insulin Aspart (Novolog Flexpen) 5 UNITS) SQ SCH (13:00)
[2020-12-25] MEDS ORDERED: inSUlin ASPART (NovoLOG) 1 UNIT/0.01 ML (CHARGE PER UNIT) SC SCH (13:00)
[2020-12-25] MEDS: ACETAMINOPHEN 325 MG TABLET PO PRN ×2 (13:25→20:23)
[2020-12-25] MEDS: ENOXAPARIN 40 MG/0.4 ML (LOVENOX) SYR SC SCH (13:25)
[2020-12-25] MEDS ORDERED: meTOprolol SUCCINATE 100 MG (TOPROL XL) TAB PO NR (14:30)
--- NOTE | 2020-12-25 14:30 | Progress Note - Cardiology ---
Cardiology SOAP Progress Note Subjective: Off vent today and able to communicate Describes sudden onset of shortness of breath on day of admission, had barely enough time to call 911 No cp at all on the day of index event or later No palp Does not recall any syncope Gen malaise and weakness present Shortness of breath is much improved Denies n/v/d Denies swelling Denies dysuria or hematuria Objective: I&O/Vital Signs 12/25/20 12/25/20 12/25/20 12/25/20 02:30 02:40 02:45 03:00 Temp 37.4 37.4 37.4 Pulse 92 93 93 94 Resp 20 20 20 20 B/P (MAP) 128/65 132/69 119/63 Pulse Ox 92 96 97 97 O2 Delivery Mechanical Ventilator Mechanical Ventilator Mechanical Ventilator O2 Flow Rate 40.00 40.00 40.00 FiO2 40 12/25/20 12/25/20 12/25/20 12/25/20 03:15 03:30 03:45 04:00 Temp 37.4 37.4 37.4 37.3 Pulse 96 95 92 Resp 20 20 20 B/P (MAP) 136/68 126/66 124/62 116/58 Pulse Ox 97 97 97 O2 Delivery Mechanical Ventilator Mechanical Ventilator Mechanical Ventilator Mechanical Ventilator O2 Flow Rate 40.00 40.00 40.00 40.00 12/25/20 12/25/20 12/25/20 12/25/20 04:00 04:15 04:30 04:45 Temp 37.3 37.3 37.3 Pulse 89 90 Resp 20 20 B/P (MAP) 108/57 109/60 131/71 Pulse Ox 95 97 97 O2 Delivery Mechanical Ventilator Mechanical Ventilator Mechanical Ventilator Mechanical Ventilator O2 Flow Rate 40.00 40.00 40.00 FiO2 40 12/25/20 12/25/20 12/25/20 12/25/20 05:00 05:00 05:15 05:18 Temp 37.3 37.3 Pulse 98 95 92 92 Resp 24 22 20 B/P (MAP) 148/85 165/89 124/62 Pulse Ox 96 97 97 O2 Delivery Mechanical Ventilator Mechanical Ventilator O2 Flow Rate 40.00 40.00 12/25/20 12/25/20 12/25/20 12/25/20 05:30 05:45 06:00 06:15 Temp 37.4 37.4 37.5 37.5 Pulse 90 86 85 83 Resp 16 20 20 B/P (MAP) 165/91 152/79 130/67 113/59 Pulse Ox 97 O2 Delivery Mechanical Ventilator Mechanical Ventilator Mechanical Ventilator O2 Flow Rate 40.00 40.00 40.00 12/25/20 12/25/20 12/25/20 12/25/20 06:30 06:45 07:00 07:00 Temp 37.5 37.4 37.4 Pulse 81 81 81 81 Resp 20 20 20 B/P (MAP) 106/59 105/57 115/60 Pulse Ox 97 97 97 O2 Delivery Mechanical Ventilator O2 Flow Rate 40.00 12/25/20 12/25/20 12/25/20 12/25/20 07:15 07:24 07:30 07:45 Temp 37.4 37.4 37.4 Pulse 80 85 87 89 Resp 20 20 20 B/P (MAP) 112/61 120/62 134/64 Pulse Ox 97 97 97 FiO2 30 12/25/20 12/25/20 12/25/20 12/25/20 08:00 08:15 08:30 08:30 Temp 37.3 37.3 37.2 Pulse 90 86 Resp 17 20 20 B/P (MAP) 144/76 130/65 121/64 Pulse Ox 98 98 98 96 O2 Delivery Mechanical Ventilator Mechanical Ventilator O2 Flow Rate 40.00 FiO2 40 12/25/20 12/25/20 12/25/20 12/25/20 08:45 09:00 09:15 09:30 Temp 37.2 37.1 37.1 37.2 Pulse 90 90 101 Resp 20 20 20 29 B/P (MAP) 150/76 155/79 179/90 139/108 Pulse Ox 96 96 94 92 O2 Delivery Mechanical Ventilator O2 Flow Rate 40.00 12/25/20 12/25/20 12/25/20 12/25/20 09:45 10:00 10:24 10:30 Temp 37.2 37.3 Pulse 99 101 101 Resp 25 27 34 B/P (MAP) 183/107 183/99 Pulse Ox 92 92 90 O2 Delivery Mechanical Ventilator High Flow N/C O2 Flow Rate 40.00 10.00 FiO2 30 12/25/20 12/25/20 12/25/20 12/25/20 11:00 11:15 12:00 12:04 Temp 37.6 37.5 Pulse 112 113 Resp 27 B/P (MAP) 170/80 170/80 Pulse Ox 94 96 O2 Delivery High Flow N/C High Flow N/C O2 Flow Rate 10.00 10.00 12/25/20 12/25/20 12/25/20 12:52 13:00 14:00 Pulse 108 106 105 Resp 12 20 B/P (MAP) 191/94 179/86 Pulse Ox 97 96 O2 Delivery High Flow N/C High Flow N/C O2 Flow Rate 10.00 10.00 12/25/20 00:00 Intake Total 760 ml Output Total 4525 ml Balance -3765 ml Weight (Pounds): 247 Weight (Ounces): 7.0 Weight (Calculated Kilograms): 112.599823 Constitutional: AAO x 3, well-developed, well-nourished Respiratory: other (good bilateral air entry that is diminished at the bases) Cardiovascular: regular rate-rhythm, S1 and S2, systolic murmur (faint VALENTÍN at card base) Gastrointestional: No tender, No guarding, No rebound; audible bowel sounds Extremities: other (mild edema of both legs); No clubbing, No cyanosis Neurologic/Psychiatric: oriented x 3, other (moves all limbs equally) Skin: normal color, warm/dry Results/Procedures: Labs Laboratory Tests 12/24/20 15:27: Sodium Level 130L, Potassium Level 5.9H, Chloride Level 106, Carbon Dioxide Level 18L, Anion Gap 6, Blood Urea Nitrogen 9, Creatinine 0.86, Estimat Glomerular Filtration Rate 91, BUN/Creatinine Ratio 10, Glucose Level 246H, Calcium Level 7.4L, Triglycerides Level 1375H 12/24/20 17:17: Glucometer 180H 12/24/20 23:00: Sodium Level 141, Potassium Level 3.4L, Chloride Level 111H, Carbon Dioxide Level 19L, Anion Gap 11, Blood Urea Nitrogen 10, Creatinine 1.17, Estimat G lomerular Filtration Rate 64, BUN/Creatinine Ratio 9, Glucose Level 214H, Calcium Level 7.9L 12/25/20 04:40: Sodium Level 142, Potassium Level 3.4L, Chloride Level 111H, Carbon Dioxide Level 19L, Anion Gap 12, Blood Urea Nitrogen 11, Creatinine 1.24, Estimat Glomerular Filtration Rate 59, BUN/Creatinine Ratio 9, Glucose Level 209H, Calcium Level 8.0L, White Blood Count 7.5, Red Blood Count 3.46L, Hemoglobin 10.2L, Hematocrit 32L, Mean Corpuscular Volume 91, Mean Corpuscular Hemoglobin 30, Mean Corpuscular Hemoglobin Concent 32, Red Cell Distribution Width 14.8H, Platelet Count 252, Mean Platelet Volume 9.4, Immature Granulocyte % (Auto) 0, Neutrophils (%) (Auto) 68, Lymphocytes (%) (Auto) 15, Monocytes (%) (Auto) 9, Eosinophils (%) (Auto) 7, Basophils (%) (Auto) 0, Neutrophils # (Auto) 5.1, Lymphocytes # (Auto) 1.1, Monocytes # (Auto) 0.7, Eosinophils # (Auto) 0.6H, Basophils # (Auto) 0.0, Immature Granulocyte # (Auto) 0.0, Corrected Calcium 9.3, Phosphorus Level 3.6, Magnesium Level 1.7, Total Bilirubin 0.3, Aspartate Amino Transf (AST/SGOT) 10, Alanine Aminotransferase (ALT/SGPT) 10, Alkaline Phosphatase 61, B-Type Natriuretic Peptide 30.0, Total Protein 5.4L, Albumin 2.4L 12/25/20 05:10: Blood Gas Puncture Site LEFT RADIAL, Blood Gas Patient Temperature 37.3, Arterial Blood pH 7.38, Arterial Blood Partial Pressure CO2 40, Arterial Blood Partial Pressure O2 72L, Arterial Blood HCO3 23, Arterial Blood Total CO2 23.9, Arterial Blood Oxygen Saturation 95, Arterial Blood Base Excess -1.6, Kush Test YES-POS, Blood Gas Ventilator Setting YES, Blood Gas Inspired Oxygen 40% 12/25/20 11:26: Glucometer 208H Microbiology 12/22/20 Gram Stain - Final, Resulted 12/22/20 Sputum Culture - Preliminary, Resulted Usual upper respiratory linnette YEAST 12/22/20 Blood Culture - Preliminary, Resulted No growth 12/22/20 Urine Culture - Final, Complete NO GROWTH Laboratory Tests 12/24/20 04:00 12/24/20 15:27 12/24/20 23:00 12/25/20 04:40 A/P: Assessment: Ac resp failure likely primarily due to flash pulmonary edema (acute diastolic CHF) - no arrhythmia recorded by EMS when they responded to the 911 call - Echo 12/24/20: LVEF 60-65%, mild conc LVH, PASP 20-25 mmHg CAD with h/o of prox LCx stenting (Rocío 3x12) and mid RCA stenting (Rocío 2.5x12). 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 Obesity, BMI 42 Plan: * Complex management * Continue furosemide for CHF. Replenish lytes * Continue clopidogrel * Change beta-kelli to oral * Monitor labs * I had a detailed discussion with him regarding his CV issues and our treatment plan ALEXANDER CATES MD FACP FAC CCDS Dec 25, 2020 14:30
[2020-12-25] MEDS ORDERED: NON-FORMULARY MEDICATION 1 EA EA (Duloxetine HCl 60 MG) PO SCH (17:00)
[2020-12-25] MEDS ORDERED: meTOprolol TARTRATE 50 MG (LOPRESSOR) TAB PO SCH (17:00)
[2020-12-25] MEDS ORDERED: sitaGLIPtin/METFORMIN 50/1000 MG (JANUMET) NON FORM PO SCH (17:00)
[2020-12-25] MEDS: DULoxetine 30 MG (CYMBALTA) CAP PO SCH (17:10)
[2020-12-25] MEDS: metFORMIN 500 MG (GLUCOPHAGE) TAB PO SCH ×2 (17:10→17:14)
[2020-12-25] MEDS: inSUlin ASPART (NovoLOG) 1 UNIT/0.01 ML (CHARGE PER UNIT) SC SCH (17:19)
[2020-12-25 18:24] VITALS: BP 167/85
[2020-12-25] MEDS ORDERED: RT-ALBUTEROL/IPRATROPIUM 3 ML (DUONEB) VIAL INH SCH (18:30)
[2020-12-25] MEDS: MUPIROCIN 2% OINT 22 GM (BACTROBAN) TUBE TP SCH (20:19)
[2020-12-25] MEDS ORDERED: NON-FORMULARY MEDICATION 1 EA EA (Insulin Detemir (Levemir Flextouch) 15 UNIT) SQ SCH (21:00)
[2020-12-25] MEDS: ONDANSETRON 4 MG/2 ML (SDV) Z0FRAN IV PRN (21:40)
[2020-12-26] MEDS: ACETAMINOPHEN 325 MG TABLET PO PRN ×3 (02:44→18:57)
[2020-12-26] MEDS: CEFEPIME 1,000 MG/SWFI 10 ML IV PUSH IV SCH ×8 (04:28→23:41)
[2020-12-26 05:19] LABS: BASOPHILS # (AUTO) 0.1 10^3/uL (0.0-0.1); BASOPHILS % (AUTO) 1 % (0-10); EOSINOPHILS # (AUTO) 0.7 10^3/uL (0.0-0.3); EOSINOPHILS % (AUTO) 7 % (0-10); HEMATOCRIT 36 % (40-54); HEMOGLOBIN 11.5 g/dL (13.3-17.7); LYMPHOCYTES # (AUTO) 0.9 10^3/uL (1.0-4.0); LYMPHOCYTES % (AUTO) 10 % (12-44); MEAN CORPUSCULAR HEMOGLOBIN 29 pg (25-34); MEAN CORPUSCULAR HGB CONC 32 g/dL (32-36); MEAN CORPUSCULAR VOLUME 90 fL (80-99); MEAN PLATELET VOLUME 9.4 fL (9.0-12.2); MONOCYTES # (AUTO) 0.7 10^3/uL (0.0-1.0); MONOCYTES % (AUTO) 8 % (0-12); NEUTROPHILS # (AUTO) 6.9 10^3/uL (1.8-7.8); NEUTROPHILS % (AUTO) 74 % (42-75); PLATELET COUNT 309 10^3/uL (130-400); WHITE BLOOD COUNT 9.3 10^3/uL (4.3-11.0)
[2020-12-26 05:33] LABS: ALBUMIN 2.8 GM/DL (3.2-4.5); POTASSIUM 3.6 MMOL/L (3.6-5.0)
[2020-12-26 05:34] LABS: CALCIUM 8.6 MG/DL (8.5-10.1)
[2020-12-26 05:36] LABS: TOTAL PROTEIN 6.4 GM/DL (6.4-8.2)
[2020-12-26 05:37] LABS: BILIRUBIN,TOTAL 0.7 MG/DL (0.1-1.0)
[2020-12-26 05:39] LABS: CREATININE SERUM 1.08 MG/DL (0.60-1.30); PHOSPHORUS 3.3 MG/DL (2.3-4.7)
[2020-12-26 05:42] LABS: MAGNESIUM 1.9 MG/DL (1.6-2.4)
[2020-12-26] MEDS: MAGNESIUM 1 GM/100 ML IVPB 100 ML IV SCH (05:52)
[2020-12-26] MEDS: VASOPRESSIN INJECTION 20 UNIT in NS (IVPB) 100 ML IV SCH ×2 (05:52→15:24)
[2020-12-26] MEDS: POTASSIUM CL 10MEQ/50ML IVPB 50 ML IV SCH (05:53)
[2020-12-26] MEDS: GLIMEPIRIDE 1 MG (AMARYL) TAB PO SCH (06:41)
[2020-12-26] MEDS: RT-ALBUTEROL/IPRATROPIUM 3 ML (DUONEB) VIAL INH SCH ×4 (07:01→18:58)
[2020-12-26] MEDS: KCL 10 MEQ TAB (MICRO K) PO SCH (08:22)
[2020-12-26] MEDS: DULoxetine 30 MG (CYMBALTA) CAP PO SCH ×2 (08:22→17:23)
[2020-12-26] MEDS: metFORMIN 500 MG (GLUCOPHAGE) TAB PO SCH ×3 (08:22→15:24)
[2020-12-26] MEDS: meTOprolol SUCCINATE 100 MG (TOPROL XL) TAB PO SCH (08:22)
[2020-12-26] MEDS: PANTOPRAZOLE 40 MG (PROTONIX) VIAL IV SCH (08:24)
[2020-12-26] MEDS: LOSARTAN 100 MG (COZAAR) TABLET PO SCH (08:24)
[2020-12-26] MEDS: amLODIPine 10 MG (NORVASC) TAB PO SCH (08:24)
[2020-12-26] MEDS: CLOPIDOGREL 75 MG (PLAVIX) TABLET PO SCH (08:24)
[2020-12-26] MEDS: TOBRA/DEXAMETH (TOBRADEX) OPHTH OINT 3.5 GM TUBE OP SCH ×3 (08:26→20:42)
[2020-12-26] MEDS: inSUlin ASPART (NovoLOG) 1 UNIT/0.01 ML (CHARGE PER UNIT) SC SCH ×3 (08:26→17:24)
[2020-12-26] MEDS: MICONAZOLE 2% POWDER (DESENEX AF) 90 GM TOP SCH ×2 (08:27→20:42)
[2020-12-26] MEDS: MUPIROCIN 2% OINT 22 GM (BACTROBAN) TUBE TP SCH ×2 (08:27→20:41)
[2020-12-26] MEDS: NYSTATIN CREAM (MYCOSTATIN) 30 GM TUBE TP SCH ×3 (08:28→20:41)
[2020-12-26] MEDS: FUROSEMIDE INJECTION 120 MG in D5W 100 ML IVPB 108 ML IV SCH ×2 (08:59→19:54)
[2020-12-26] MEDS ORDERED: NON-FORMULARY MEDICATION 1 EA EA (Potassium Chloride 10 MEQ) PO SCH (09:00)
[2020-12-26] MEDS ORDERED: FUROSEMIDE 40 MG (LASIX) TAB PO SCH (09:00)
--- NOTE | 2020-12-26 09:45 | Cardiology Progress Note ---
Subjective Date Seen by Provider: Dec 26, 2020 Time Seen by Provider: 11:37 Subjective/Events-last exam Patient was seen at bedside, laying down comfortably, complaining of active chest pain. No shortness of breath. Having mild pedal edema. Review of Systems General: No Chills, No Night Sweats, No Fatigue, No Malaise, No Appetite, No Other HEENT: No Head Aches, No Visual Changes, No Eye Pain, No Ear Pain, No Dysphasia, No Sinus Congestion, No Post Nasal Drip, No Sore Throat, No Other Pulmonary: No Dyspnea, No Cough, No Pleuritic Chest Pain, No Other Cardiovascular: Chest Pain; No: Palpitations, Orthopnea, Paroxysmal Noc. Dyspnea, Edema, Lt Headedness, Other Focused Exam Time of Focused Exam: 11:00 Objective-Cardiology Exam Last Set of Vital Signs Vital Signs 12/25/20 12/26/20 12/26/20 20:00 04:28 11:00 Temp 36.2 Pulse 87 Resp 23 B/P (MAP) 170/91 Pulse Ox 92 O2 Delivery High Flow N/C O2 Flow Rate 3.00 FiO2 40 I&O Intake and Output 12/26/20 00:00 Intake Total 2980 ml Output Total 8175 ml Balance -5195 ml Intake Oral 2400 ml IV Total 580 ml Output Urine Total 8175 ml General: Alert, Oriented X3, Cooperative HEENT: Atraumatic, PERRLA Neck: Supple, No JVD, No Thyromegaly Lungs: Clear to Auscultation, Normal Air Movement Heart: Regular Rate, Normal S1, Normal S2, No Murmurs Abdomen: Normal Bowel Sounds, Soft, No Tenderness, No Hepatosplenomegaly, No Masses Extremities: No Clubbing, No Cyanosis, Normal Pulses, No Tenderness/Swelling, Other (Mild edema) Skin: No Rashes, No Breakdown, No Significant Lesion Neuro: Normal Gait, Normal Speech, Strength at 5/5 X4 Ext, Normal Tone, Sensation Intact Psych/Mental Status: Mental Status NL, Mood NL Results Lab Laboratory Tests 12/26/20 04:57 A/P-Cardiology Admission Diagnosis Acute respiratory failure CAD HTN DM Assessment/Plan Status post acute respiratory failure with flash pulmonary edema, better at this time. Back to baseline. Echo 12/24/20: LVEF 60-65%, mild conc LVH, PASP 20-25 mmHg. Patient is extubated, slowly improving. Chest pain, chronic stable angina, maintained on isosorbide as an outpatient. We will restart isosorbide and adding sublingual nitroglycerin as needed. Coronary artery disease-underwent cardiac catheterization on December 09, 2017 revealing multivessel coronary artery disease with severe stenosis in the proximal circumflex artery with primary stenting using Rocío 3.012 mm expanded to 3.25 mm with excellent results. Severe stenosis in the mid right coronary artery with primary stenting using 2.512 mm Rocío expanded to 2.75 with excellent results. Mild to moderate disease in the proximal LAD, severe stenosis at the ostium of first diagonal artery that is very small artery. Most recent cardiac catheterization done February 04, 2019 revealed total occlusion of the left PDA off the circumflex artery, patent stent in the proximal circumflex. Patent stent in the midright coronary artery. Mild disease in the LAD. Patient is allergic to aspirin, was unable to afford Brilinta, maintained on Plavix. 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 Hyperlipidemia-continue to monitor lipids Frequent ventricular ectopy with PVC and ventricular trigeminy, maintained on beta kelli. Mild bilateral carotid stenosis, ultrasound was done in December 2018, continue to monitor. Family history of heart disease History of psoriasis. Diabetes mellitus, admitted with DKA, has had previous hospitalizations for DKA. Management per medical services Obesity, BMI is 39, we discussed weight loss and exercise Supervisory-Addendum Brief Supervisory Addendum Participated in pt care: history, MDM, physical Personally performed: exam, history, MDM Care discussed with: ONOFRE Results interpretation: Verified all documentation Notes: Patient was seen and evaluated with Marsha, examination performed, management plan was discussed, agree with the current scribed note, I made few changes to the note using Italic font MARSHA ZHANG Dec 26, 2020 09:45 CROW KNIGHT MD Dec 26, 2020 11:40
[2020-12-26] MEDS ORDERED: NITROGLYCERIN 0.4 MG SL TABS BTL 25'S SL PRN (10:00)
[2020-12-26] MEDS ORDERED: FUROSEMIDE 40 MG/4 ML INJ (LASIX) IVP ONE (10:00)
--- NOTE | 2020-12-26 10:49 | Physical Therapy Evaluation ---
PT Evaluation-General Medical Diagnosis Admission Date Dec 22, 2020 at 11:15 Medical Diagnosis: acute respiratory failure Onset Date: Dec 22, 2020 Therapy Diagnosis Therapy Diagnosis: impaired mobility, strength, endurance Height/Weight Height (Feet): 5 Height (Inches): 9.00 Weight (Pounds): 247 Weight (Ounces): 7.0 Precautions Precautions/Isolations: Fall Prevention, Standard Precautions Referral Physician: Carol Reason for Referral: Evaluation/Treatment Medical History Pertinent Medical History: Arthritis, CAD, COPD, DM, HTN, Neuropathy Additional Medical History Past Medical History Surgeries: Cardiac, Coronary Stent, Gallbladder, Orthopedic, Tonsillectomy Asthma, Sleep Apnea Currently Using CPAP: Yes Currently Using BIPAP: Yes Coronary Artery Disease, High Cholesterol, Hypertension, Irregular Heartbeat, Valvular Heart Disease Neuropathy Sexually Transmitted Disease: No Gastroesophageal Reflux, Polyps, Hiatal Hernia, Ulcer Arthritis Diabetes, Insulin dep Loss of Vision: Denies Hearing Impairment: Denies Anxiety Psoriasis Reviewed History: Yes Social History Current Living Status: Alone Entry Into Home: Stairs Without Railing PT Steps Into Home: 4 Prior Prior Level of Function SCALE: Activities may be completed with or without assistive devices. 1-Todevkcsbe-myzgnjr completes the activity by him/herself with no assistance from a helper. 5-Set-up or Clean-up Assistance-helper sets up or cleans up; patient completes activity. [place] assists only prior to or following the activity. 4-Supervision or Touching Assistance-helper provides verbal cues and/or touching/steadying and/or contact guard assistance as patient completes activity. Assistance may be provided throughout the activity or intermittently. 3-Partial/Moderate Assistance-helper does LESS THAN HALF the effort. [place] lifts, holds or supports trunk or limbs, but provides less than half the effort. 2-Substantial/Maximal Assistance-helper does MORE THAN HALF the effort. [place] lifts or holds trunk or limbs and provides more than half the effort. 1-Gedfecvsc-ewxkuo does ALL the effort. Patient does none of the effort to complete the activity. Or, the assistance of 2 or more helpers is required for the patient to complete the activity. If activity was not attempted, code reason: 7-Patient Refused. 9-Not Applicable-not attempted and the patient did not perform the activity before the current illness, exacerbation or injury. 10-Not Attempted due to Environmental Limitations-(lack of equipment, weather restraints, etc.). 88-Not Attempted due to Medical Conditions or Safety Concerns. Bed Mobility: 6 Transfers (B,C,W/C): 6 Gait: 6 Stairs: 6 Indoor Mobility (Ambulation): Independent Stairs: Independent Patient states he was using a walking stick previously. PT Evaluation-Current Subjective Patient in bed pre tx, agrees reluctantly to PT but states "I'm not getting out of this bed, sorry". He does agrees to eval and strength test. Pt/Family Goals to breathe better Objective Patient Orientation: Person, Place, Situation Attachments: Oxygen, Thompson Catheter, IV ROM/Strength ROM Lower Extremities WNL Strength Lower Extremities LLE (hip flexion 3+5, knee flexion 4/5, knee extension 4/5, dorsiflexion 3/5), RLE (hip flexion 3+5, knee flexion 4/5, knee extension 4/5, dorsiflexion 3/5) Sensory Hearing: Functional Sensation Right Lower Extremit: Impaired Sensation Left Lower Extremity: Impaired Treatment BLE supine exercises x20 (AP, HS, SLR) Assessment/Needs Patient has impaired mobility, strength, endurance. Patient in bed post tx with nurse call, phone, tray, all needs met. Patient has poor motivation and would not get out of bed. 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 Goals PT Nursing Home Goals Time Frame: Jan 02, 2021 Roll Left & Right (QC): 4 Sit to Lying (QC): 4 Lying-Sitting on Side/Bed(QC): 4 Sit to Stand (QC): 3 Chair/Rfz-ik-Wapby Xfer(QC): 3 Walk 10 feet (QC): 3 PT Plan Problem List Problem List: Activity Tolerance, Functional Strength, Safety, Balance, Gait, Transfer, Bed Mobility, ROM Treatment/Plan Treatment Plan: Continue Plan of Care Treatment Plan: Bed Mobility, Education, Functional Activity Paul, Functional Strength, Gait, Safety, Therapeutic Exercise, Transfers Treatment Duration: Jan 02, 2021 Frequency: 6 times per week Estimated Hrs Per Day: .25 hour per day Patient and/or Family Agrees t: Yes Safety Risks/Education Patient Education: Correct Positioning, Safety Issues Teaching Recipient: Patient Teaching Methods: Demonstration, Discussion Response to Teaching: Reinforcement Needed Discharge Recommendations Plan Patient will perform bed mobility and transfer training, balance and endurance training, functional strengthening, stair training, gait training, and education, to improve functional mobility and independence at home. Therapy Discharge Recommendati: Scheduled Assistance, Home & Family, Post Acute PT Time/GCodes Time In: 1010 Time Out: 1020 Total Billed Treatment Time: 10 Total Billed Treatment 1 visit BARB SAWYER PT Dec 26, 2020 10:49
--- NOTE | 2020-12-26 11:26 | Occupational Therapy Eval ---
OT Evaluation-General/PLF Medical Diagnosis Admission Date Dec 22, 2020 at 11:15 Medical Diagnosis: acute respiratory failure Onset Date: Dec 22, 2020 Therapy Diagnosis Therapy Diagnosis: decreased ADL status Height/Weight Height (Feet): 5 Height (Inches): 9.00 Weight (Pounds): 247 Weight (Ounces): 7.0 Precautions Precautions/Isolations: Fall Prevention, Standard Precautions Referral Physician: Carol Referral Reason: Evaluation/Treatment Medical History Pertinent Medical History: Arthritis, CAD, COPD, DM, HTN, Neuropathy Additional Medical History HLD, Asthma, anxiety, psoriasis Current History Pt called 911 due to SOA. Upon mill representative arrival, pt had agonal breathing and pulseless, CPR began. When EMS arrived, pt had a pulse, transported to ED and intubated. Social History Current Living Status: Alone Entry Into Home: Stairs Without Railing Steps Into Home: 4 ADL-Prior Level of Function SCALE: Activities may be completed with or without assistive devices. 8-Niupvimssl-bapyrsd completes the activity by him/herself with no assistance from a helper. 5-Set-up or Clean-up Assistance-helper sets up or cleans up; patient completes activity. [place] assists only prior to or following the activity. 4-Supervision or Touching Assistance-helper provides verbal cues and/or touching/steadying and/or contact guard assistance as patient completes activity. Assistance may be provided throughout the activity or intermittently. 3-Partial/Moderate Assistance-helper does LESS THAN HALF the effort. [place] lifts, holds or supports trunk or limbs, but provides less than half the effort. 2-Substantial/Maximal Assistance-helper does MORE THAN HALF the effort. [place] lifts or holds trunk or limbs and provides more than half the effort. 0-[place]-pexgav does ALL the effort. Patient does none of the effort to complete the activity. Or, the assistance of 2 or more helpers is required for the patient to complete the activity. If activity was not attempted, code reason: 7-Patient Refused. 9-Not Applicable-not attempted and the patient did not perform the activity before the current illness, exacerbation or injury. 10-Not Attempted due to Environmental Limitations-(lack of equipment, weather restraints, etc.). 88-Not Attempted due to Medical Conditions or Safety Concerns. ADL PLOF Comments Pt reports IND with ADLs and functional mobility at PLOF, using walking stick. He is able to take his own shower and dress himself. He has a cat, but has difficulty with cleaning its litter box, so the cat has went to the bathroom around the house and on fireplace. He has boxes and items around his house which make it difficult to maneuver. Self Care: Independent Functional Cognition: Independent DME/Equipment: Bath Chair, Grab Bars, Tub/Shower OT Current Status Subjective Pt laying in bed, rolled his eyes upon OT arrival when OT introduced self. Mental Status/Objective Patient Orientation: Person, Place, Situation Attachments: Oxygen, Telemetry Current Upper Extremity ROM WFL, BUE shoulder flexion to approx 160 degrees. Upper Extremity Coordination WFL Upper Extremity Strength grossly 4/5 Edema: Slight swelling in finger, states better than when first extubated. ADL-Treatment Eating (QC): 6 (Per pt report.) Oral Hygiene (QC): 5 (based on clincial judgment.) Other Treatments Pt laying in bed, OT introduced self and educated pt on purpose/benefit of OT. Pt provided information about OF and home set up, easily distracted with side stories, talking about how he has soup in his fridge that needs thrown out due to being old, then talked about how he makes large meals for a week at a time, then talking about the specific soup recipe. Pt redirected to topics/questions. Pt declined OOB activity, but agreeable to UE exercise. Pt completed x10 reps each of the following in order to increase BUE strength and activity tolerance: shoulder flexion, front punch, elbow flexion/extension. Post tx, pt in bed, call light in reach and all needs met. 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 2=Patient will verbalize/demonstrate understanding of assistive device s/modifications for ADL. 3=Patient will improve strength/tolerance for activity to enable patient to perform ADL's. OT Education/Plan Problem List/Assessment Assessment: Decreased Activ Tolerance, Decreased UE Strength, Impaired I ADL's, Impaired Self-Care Skills Discharge Recommendations Plan/Recommendations: Continue POC Treatment Plan/Plan of Care Patient would benefit from OT for education, treatment and training to promote independence in ADL's, mobility, safety and/or upper extremity function for ADL's. Plan of Care: ADL Retraining, Functional Mobility, UE Funct Exercise/Act Treatment Duration: Jan 06, 2021 Frequency: 6 times per week Estimated Hrs Per Day: .25 hour per day Rehab Potential: Guarded Time/GCodes Start Time: 10:43 Stop Time: 10:58 Total Time Billed (hr/min): 15 Billed Treatment Time 1, DANIKA BAEZA OT Dec 26, 2020 11:26
[2020-12-26] MEDS: ISOSORBIDE MONONITRATE 30 MG (IMDUR) TAB PO SCH (11:30)
--- NOTE | 2020-12-26 11:49 | Tele-ICU Progress Note ---
Subjective Time Seen by a Provider: 11:49 Sepsis Event Evaluation Height, Weight, BMI Height: 5'9.00" Weight: 247lbs. 7.0oz. [id number]; 32.00 BMI Method:Stated Focused Exam Time of Focused Exam: 11:00 Exam Exam Patient acknowledged, consented, and participated in this virtual visit which was conducted using real time audio/video Vital Signs Date Time Temp Pulse Resp B/P (MAP) Pulse Ox O2 Delivery O2 Flow Rate FiO2 12/26/20 11:33 93 High Flow N/C 3.00 12/26/20 11:00 87 23 170/91 92 High Flow N/C 3.00 12/26/20 10:00 85 19 176/90 92 High Flow N/C 3.00 12/26/20 09:00 97 22 185/89 90 High Flow N/C 3.00 12/26/20 08:00 High Flow N/C 3.00 12/26/20 08:00 96 16 195/104 94 High Flow N/C 3.00 12/26/20 07:12 High Flow N/C 3.00 12/26/20 07:01 94 High Flow N/C 5.00 12/26/20 07:00 96 12/26/20 07:00 96 14 179/102 93 High Flow N/C 3.00 12/26/20 06:00 94 21 184/100 93 High Flow N/C 5.00 12/26/20 05:00 95 20 186/104 91 High Flow N/C 5.00 12/26/20 04:28 36.2 12/26/20 04:00 98 20 182/96 96 High Flow N/C 5.00 12/26/20 04:00 High Flow N/C 5.00 12/26/20 03:00 96 22 192/98 95 High Flow N/C 5.00 12/26/20 02:00 96 19 186/101 94 High Flow N/C 5.00 12/26/20 01:00 96 12/26/20 01:00 96 23 167/99 93 High Flow N/C 5.00 12/26/20 00:00 High Flow N/C 5.00 12/26/20 00:00 97 13 142/84 91 High Flow N/C 5.00 11/7/21 23:24 36.1 12/25/20 23:00 101 23 176/104 94 High Flow N/C 5.00 12/25/20 22:00 100 26 177/94 95 High Flow N/C 5.00 12/25/20 21:21 High Flow N/C 5.00 12/25/20 21:00 103 14 172/84 90 NIV CPAP 40.00 12/25/20 20:00 104 26 172/90 96 NIV CPAP 40.00 12/25/20 20:00 NIV CPAP 40 12/25/20 19:56 37.1 12/25/20 19:37 40.00 12/25/20 19:10 NIV CPAP 40.00 12/25/20 19:00 105 28 183/81 95 High Flow N/C 10.00 12/25/20 19:00 105 12/25/20 18:56 95 High Flow N/C 5.00 12/25/20 18:24 37.5 106 94 12/25/20 18:00 109 20 197/96 93 High Flow N/C 10.00 12/25/20 17:00 109 26 180/71 94 High Flow N/C 10.00 12/25/20 16:44 93 High Flow N/C 10.00 12/25/20 16:00 108 22 180/93 93 High Flow N/C 10.00 12/25/20 15:33 94 High Flow N/C 5.00 12/25/20 15:00 106 20 167/85 95 High Flow N/C 10.00 12/25/20 14:00 105 20 179/86 96 High Flow N/C 10.00 12/25/20 13:00 106 12 191/94 97 High Flow N/C 10.00 12/25/20 12:52 108 12/25/20 12:04 96 High Flow N/C 10.00 12/25/20 12:00 37.5 I & O 12/26/20 07:00 Intake Total 3560 ml Output Total 8125 ml Balance -4565 ml Height & Weight Height: 5'9.00" Weight: 247lbs. 7.0oz. 112.595662kj; 32.00 BMI Method:Stated General Appearance: No Apparent Distress, WD/WN, Chronically ill, Obese HEENT: PERRL/EOMI Neck: Full Range of Motion Respiratory: No Accessory Muscle Use, No Respiratory Distress, Decreased Breath Sounds Cardiovascular: Regular Rate, Rhythm Capillary Refill: Less Than 3 Seconds Peripheral Pulses: 2+ Radial Pulses (R), 2+ Radial Pulses (L) Gastrointestinal: normal bowel sounds, non tender, soft Extremity: Normal Capillary Refill Neurologic/Psychiatric: Alert, Oriented x3, No Motor/Sensory Deficits, Normal Mood/Affect Skin: Normal Color Lymphatic: No Adenopathy Results Lab Laboratory Tests 12/24/20 15:27 12/24/20 23:00 12/25/20 04:40 12/26/20 04:57 Assessment/Plan Assessment/Plan (Tele-ICU Physician , Progress Note ) Available chart/ vitals / labs / Images reviewed Video assessment done using teleICU camera, rest of exam as per RN Discussed with RN , EXAM PER RN Events overnight : Afebrile I/O = UO 8L last 24 h Drips: Pressors: , hemodynamically stable Consultants: carri Hospital course: (12/22) 60 y/o male with cardiac arrest DKA -TTM initiated then discontinued as pt following commands. Intubated (12/25) Extubated to Cpap. 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 Lines : (Central Line Necessity Reviewed) Thompson: OG: Nutrition: po Analgesia: Anxiety/ delirium VTE Prophylaxis: love 40 qd Stress Ulcer Prophylaxis: Glycemic Control: Plans in collaboration with bedside consultants and IM MDs. Discussed with RN to reach out if any questions or concerns A total of 31 minutes of critical care time was devoted to this patient today, required to treat and/or prevent further deterioration of critical care condition ( as above) . THOMAS CRUMP MD Dec 26, 2020 11:49
[2020-12-26] MEDS: NOREPINEPHRINE 8 MG/250 ML 250 ML IV SCH (13:39)
[2020-12-26] MEDS: ENOXAPARIN 40 MG/0.4 ML (LOVENOX) SYR SC SCH (13:49)
--- NOTE | 2020-12-26 15:57 | Physician Query Clarification ---
Physician Query-General Query to Physician: Clinical Validation Clarification Dr Jesus Alberto Grey Sepsis/Severe Sepsis has been documented in the medical record. After study, has Sepsis/Severe Sepsis been ruled out? If it has been ruled out, please document Sepsis/Severe Sepsis ruled out" in the progress notes and/or discharge summary. 1. Yes, Sepsis/Severe sepsis ruled out/not clinically valid 2. No, Sepsis/Severe sepsis has not been ruled out/is clinically valid* *Please document the clinical evidence supportive of this diagnosis (even if now resolved) in the Progress Notes and Discharge Summary 3. Other, with explanation of the clinical findings 4. Clinically undetermined, no explanation for the clinical findings Additional information: Admitted with Respiratory failure/intubated Admission VS/LABS: HR 105, RR 27, BP 203/116, SpO2 93% sat 100% was being bagged on arrival T 35.9, WBC 15.1, glucose 408, lactic Acid 3.29, BC x2 NGTD, Treatment in ER: lactated Ringer's 1 L, normal saline 4 L, cefepime IV, vancomycin IV, intubation Please remember a lack of response to the above will prompt a phone page by CDI/coding staff. In responding to this query, please exercise your independent professional judgment. The purpose of this communication is to more accurately reflect the complexity of your patients condition. The fact that a question is asked does not imply that any particular answer is desired or expected. Thank you for your timely response to this clarification. Nayeli Molina MSN, RN Clinical Theater Set Production Designer [email or web address] PHYSICIAN RESPONSE: Based on the clinical findings in the record, please respond to the query above on this document as an addendum. Physician Response: Physician Response 2 If you have questions please contact: Wire Spiral Binder: Ext: Thank you for your time and cooperation. Clinical Theater Set Production Designer/Wire Spiral Binder This is a permanent part of the medical record NAYELI MOLINA Dec 26, 2020 15:57 DEIRDRE GREY DO Dec 26, 2020 20:50
--- NOTE | 2020-12-26 19:32 | Progress Note ---
Subjective Subjective/Events-last exam Patient feeling much better this AM. Extubated yesterday. Tolerating PO diet. Review of Systems General: Fatigue, Malaise Pulmonary: Dyspnea, Cough Cardiovascular: Chest Pain; No: Palpitations, Edema Gastrointestinal: No: Nausea, Vomiting, Abdominal Pain, Diarrhea, Constipation Genitourinary: No Dysuria, No Frequency, No Incontinence Neurological: Weakness, Incoordination Focused Exam Time of Focused Exam: 11:00 Objective Exam Last Set of Vital Signs Vital Signs Date Time Temp Pulse Resp B/P (MAP) Pulse Ox O2 Delivery O2 Flow Rate FiO2 12/26/20 18:58 92 High Flow N/C 3.00 12/26/20 18:00 85 16 136/75 12/26/20 16:00 36.6 12/25/20 20:00 40 Capillary Refill : Less Than 3 Seconds I&O Intake and Output 12/26/20 00:00 Intake Total 2980 ml Output Total 8175 ml Balance -5195 ml Intake Oral 2400 ml IV Total 580 ml Output Urine Total 8175 ml General: Alert, Oriented X3, Mild Distress Lungs: Clear to Auscultation, Normal Air Movement Heart: Regular Rate, No Murmurs Abdomen: Normal Bowel Sounds, Soft, No Tenderness, No Masses Extremities: Other (1+ pitting edema equal bilaterall) Neuro: Normal Speech, Sensation Intact, Cranial Nerves 3-12 NL Results/Procedures Lab Laboratory Tests 12/25/20 20:31: Glucometer 183H 12/26/20 04:57: White Blood Count 9.3, Red Blood Count 3.99L, Hemoglobin 11.5L, Hematocrit 36L, Mean Corpuscular Volume 90, Mean Corpuscular Hemoglobin 29, Mean Corpuscular Hemoglobin Concent 32, Red Cell Distribution Width 14.0, Platelet Count 309, Mean Platelet Volume 9.4, Immature Granulocyte % (Auto) 0, Neutrophils (%) (Auto) 74, Lymphocytes (%) (Auto) 10L, Monocytes (%) (Auto) 8, Eosinophils (%) (Auto) 7, Basophils (%) (Auto) 1, Neutrophils # (Auto) 6.9, Lymphocytes # (Auto) 0.9L, Monocytes # (Auto) 0.7, Eosinophils # (Auto) 0.7H, Basophils # (Auto) 0.1, Immature Granulocyte # (Auto) 0.0, Sodium Level 140, Potassium Level 3.6, Chloride Level 105, Carbon Dioxide Level 22, Anion Gap 13, Blood Urea Nitrogen 11, Creatinine 1.08, Estimat Glomerular Filtration Rate 70, BUN/Creatinine Ratio 10, Glucose Level 238H, Calcium Level 8.6, Corrected Calcium 9.6, Phosphorus Level 3.3, Magnesium Level 1.9, Total Bilirubin 0.7, Aspartate Amino Transf (AST/SGOT) 20, Alanine Aminotransferase (ALT/SGPT) 12, Alkaline Phosphatase 71, Total Protein 6.4, Albumin 2.8L 12/26/20 08:18: Glucometer 209H 12/26/20 13:52: Glucometer 161H 12/26/20 17:29: Glucometer 181H Microbiology 12/22/20 Gram Stain - Final, Complete 12/22/20 Sputum Culture - Final, Complete Usual upper respiratory linnette YEAST 12/22/20 Blood Culture - Preliminary, Resulted No growth 12/22/20 Urine Culture - Final, Complete NO GROWTH Assessment/Plan Assessment/Plan (1) Acute and chronic respiratory failure with hypoxia Status: Acute Assessment & Plan: 12/26: Extubated yesterday, MAT protocol, continue to titrate oxygen as tolerated (2) Respiratory arrest Status: Acute (3) COPD exacerbation Status: Acute Assessment & Plan: 12/26: Steroids/antibiotics (4) Insulin dependent diabetes mellitus with complications Status: Chronic Assessment & Plan: 12/26: A1c 10.0 (5) CAD (coronary artery disease) Status: Acute Assessment & Plan: 12/26: Cardiology consulted, appreciate recommendations Qualifiers: Qualified Codes: I25.10 - Atherosclerotic heart disease of [place] coronary artery without angina pectoris (6) Debility Status: Acute Assessment & Plan: PT/OT JOCELYN THOMPSON MD Dec 26, 2020 19:32
[2020-12-26] MEDS: fentaNYL INJ 100 MCG/2 ML AMP IVP PRN (23:36)
[2020-12-27] MEDS: NOREPINEPHRINE 8 MG/250 ML 250 ML IV SCH (02:25)
[2020-12-27] MEDS: VASOPRESSIN INJECTION 20 UNIT in NS (IVPB) 100 ML IV SCH (02:25)
[2020-12-27 04:40] LABS: BASOPHILS % (AUTO) 0 % (0-10); EOSINOPHILS # (AUTO) 0.8 10^3/uL (0.0-0.3); EOSINOPHILS % (AUTO) 9 % (0-10); HEMATOCRIT 33 % (40-54); HEMOGLOBIN 10.8 g/dL (13.3-17.7); LYMPHOCYTES # (AUTO) 0.9 10^3/uL (1.0-4.0); LYMPHOCYTES % (AUTO) 10 % (12-44); MEAN CORPUSCULAR HEMOGLOBIN 29 pg (25-34); MEAN CORPUSCULAR HGB CONC 33 g/dL (32-36); MEAN CORPUSCULAR VOLUME 90 fL (80-99); MEAN PLATELET VOLUME 9.2 fL (9.0-12.2); MONOCYTES # (AUTO) 0.7 10^3/uL (0.0-1.0); MONOCYTES % (AUTO) 8 % (0-12); NEUTROPHILS # (AUTO) 6.4 10^3/uL (1.8-7.8); NEUTROPHILS % (AUTO) 72 % (42-75); PLATELET COUNT 277 10^3/uL (130-400); WHITE BLOOD COUNT 8.9 10^3/uL (4.3-11.0)
[2020-12-27 04:56] LABS: ALBUMIN 2.6 GM/DL (3.2-4.5); POTASSIUM 3.5 MMOL/L (3.6-5.0)
[2020-12-27 04:57] LABS: CALCIUM 8.4 MG/DL (8.5-10.1)
[2020-12-27 04:59] LABS: TOTAL PROTEIN 5.9 GM/DL (6.4-8.2)
[2020-12-27 05:00] LABS: BILIRUBIN,TOTAL 0.5 MG/DL (0.1-1.0)
[2020-12-27 05:02] LABS: CREATININE SERUM 0.98 MG/DL (0.60-1.30); PHOSPHORUS 2.8 MG/DL (2.3-4.7)
[2020-12-27 05:05] LABS: MAGNESIUM 1.9 MG/DL (1.6-2.4)
[2020-12-27] MEDS: CEFEPIME 1,000 MG/SWFI 10 ML IV PUSH IV SCH ×4 (05:51→10:54)
[2020-12-27] MEDS: GLIMEPIRIDE 1 MG (AMARYL) TAB PO SCH (05:51)
[2020-12-27] MEDS: POTASSIUM CL 10MEQ/50ML IVPB 50 ML IV SCH (06:00)
[2020-12-27] MEDS: MAGNESIUM 1 GM/100 ML IVPB 100 ML IV SCH (06:00)
[2020-12-27] MEDS ORDERED: KCL 20 MEQ TAB (K-DUR) PO NR ×2 (06:30→09:00)
[2020-12-27] MEDS: RT-ALBUTEROL/IPRATROPIUM 3 ML (DUONEB) VIAL INH SCH ×4 (06:56→18:59)
[2020-12-27] MEDS: TOBRA/DEXAMETH (TOBRADEX) OPHTH OINT 3.5 GM TUBE OP SCH ×3 (08:08→20:29)
[2020-12-27] MEDS: PANTOPRAZOLE 40 MG (PROTONIX) VIAL IV SCH (08:08)
[2020-12-27] MEDS: inSUlin ASPART (NovoLOG) 1 UNIT/0.01 ML (CHARGE PER UNIT) SC SCH ×3 (08:08→18:19)
[2020-12-27] MEDS: DULoxetine 30 MG (CYMBALTA) CAP PO SCH ×2 (08:09→18:18)
[2020-12-27] MEDS: LOSARTAN 100 MG (COZAAR) TABLET PO SCH (08:09)
[2020-12-27] MEDS: metFORMIN 500 MG (GLUCOPHAGE) TAB PO SCH ×2 (08:09→18:12)
[2020-12-27] MEDS: amLODIPine 10 MG (NORVASC) TAB PO SCH (08:10)
[2020-12-27] MEDS: meTOprolol SUCCINATE 100 MG (TOPROL XL) TAB PO SCH (08:10)
[2020-12-27] MEDS: CLOPIDOGREL 75 MG (PLAVIX) TABLET PO SCH (08:10)
[2020-12-27] MEDS: ISOSORBIDE MONONITRATE 30 MG (IMDUR) TAB PO SCH (08:10)
[2020-12-27] MEDS: MICONAZOLE 2% POWDER (DESENEX AF) 90 GM TOP SCH ×2 (08:11→20:31)
[2020-12-27] MEDS: NYSTATIN CREAM (MYCOSTATIN) 30 GM TUBE TP SCH ×3 (08:11→20:30)
[2020-12-27] MEDS: MUPIROCIN 2% OINT 22 GM (BACTROBAN) TUBE TP SCH ×2 (08:11→20:31)
--- NOTE | 2020-12-27 09:03 | Cardiology Progress Note ---
Subjective Date Seen by Provider: Dec 27, 2020 Time Seen by Provider: 09:02 Subjective/Events-last exam Patient was seen at bedside, laying down comfortably, feeling better today. Still having some hypoxia at night. Review of Systems General: No Chills, No Night Sweats, No Fatigue, No Malaise, No Appetite, No Other HEENT: No Head Aches, No Visual Changes, No Eye Pain, No Ear Pain, No Dysphasia, No Sinus Congestion, No Post Nasal Drip, No Sore Throat, No Other Pulmonary: Dyspnea; No Cough, No Pleuritic Chest Pain, No Other Cardiovascular: No: Chest Pain, Palpitations, Orthopnea, Paroxysmal Noc. Dyspnea, Edema, Lt Headedness, Other Focused Exam Time of Focused Exam: 11:00 Objective-Cardiology Exam Last Set of Vital Signs Vital Signs 12/25/20 12/27/20 12/27/20 12/27/20 20:00 06:00 06:56 07:00 Pulse 85 Resp 25 B/P (MAP) 149/84 Pulse Ox 92 O2 Delivery OxyMask O2 Flow Rate 13.00 FiO2 40 I&O Intake and Output 12/27/20 00:00 Intake Total 3150 ml Output Total 4000 ml Balance -850 ml Intake Oral 2150 ml IV Total 1000 ml Output Urine Total 4000 ml # Bowel Movements 6 General: Alert, Oriented X3, Mild Distress HEENT: Atraumatic, PERRLA Neck: Supple, No JVD, No Thyromegaly Lungs: Clear to Auscultation, Normal Air Movement Heart: Regular Rate, No Murmurs Abdomen: Normal Bowel Sounds, Soft, No Tenderness, No Masses Extremities: Other (1+ pitting edema equal bilaterall) Skin: No Rashes, No Breakdown, No Significant Lesion Neuro: Normal Speech, Sensation Intact, Cranial Nerves 3-12 NL Psych/Mental Status: Mental Status NL, Mood NL Results Lab Laboratory Tests 12/27/20 04:30 A/P-Cardiology Admission Diagnosis Acute respiratory failure CAD HTN DM Assessment/Plan Status post acute respiratory failure with flash pulmonary edema, better at this time. I will give additional Lasix today and evaluate tolerance and response Echo 12/24/20: LVEF 60-65%, mild conc LVH, PASP 20-25 mmHg. Patient is extubated, slowly improving. Chest pain, chronic stable angina, maintained on isosorbide as an outpatient. Feeling better after restarting isosorbide. Tolerating medication well. Coronary artery disease-underwent cardiac catheterization on December 09, 2017 revealing multivessel coronary artery disease with severe stenosis in the proximal circumflex artery with primary stenting using Rocío 3.012 mm expanded to 3.25 mm with excellent results. Severe stenosis in the mid right coronary artery with primary stenting using 2.512 mm Rocío expanded to 2.75 with excellent results. Mild to moderate disease in the proximal LAD, severe stenosis at the ostium of first diagonal artery that is very small artery. Most recent cardiac catheterization done February 04, 2019 revealed total occlusion of the left PDA off the circumflex artery, patent stent in the proximal circumflex. Patent stent in the midright coronary artery. Mild disease in the LAD. Patient is allergic to aspirin, was unable to afford Brilinta, maintained on Plavix. 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 Mild bilateral carotid stenosis, ultrasound was done in December 2018, continue to monitor. Family history of heart disease History of psoriasis. Diabetes mellitus, admitted with DKA, has had previous hospitalizations for DKA. Management per medical services Obesity, BMI is 39, we discussed weight loss and exercise CROW KNIGHT MD Dec 27, 2020 09:03
[2020-12-27] MEDS ORDERED: FUROSEMIDE 40 MG/4 ML INJ (LASIX) IVP ONE (09:15)
--- NOTE | 2020-12-27 09:37 | Physical Therapy Daily Note ---
PT Daily Note-Current Subjective Patient in bed pre tx, agrees to PT, states he always has pain but is not specific about intensity or location. Appearance Patient in recliner post tx with nurse call, phone, tray, all needs met. Mental Status Patient Orientation: Person, Place, Situation Attachments: Oxygen, Thompson Catheter Transfers SCALE: Activities may be completed with or without assistive devices. 3-Kzkxggdzyl-ruwqbqk completes the activity by him/herself with no assistance from a helper. 5-Set-up or Clean-up Assistance-helper sets up or cleans up; patient completes activity. [place] assists only prior to or following the activity. 4-Supervision or Touching Assistance-helper provides verbal cues and/or touching/steadying and/or contact guard assistance as patient completes activity. Assistance may be provided throughout the activity or intermittently. 3-Partial/Moderate Assistance-helper does LESS THAN HALF the effort. [place] lifts, holds or supports trunk or limbs, but provides less than half the effort. 2-Substantial/Maximal Assistance-helper does MORE THAN HALF the effort. [place] lifts or holds trunk or limbs and provides more than half the effort. 5-Meudxicdg-ntggux does ALL the effort. Patient does none of the effort to co mplete the activity. Or, the assistance of 2 or more helpers is required for the patient to complete the activity. If activity was not attempted, code reason: 7-Patient Refused. 9-Not Applicable-not attempted and the patient did not perform the activity before the current illness, exacerbation or injury. 10-Not Attempted due to Environmental Limitations-(lack of equipment, weather restraints, etc.). 88-Not Attempted due to Medical Conditions or Safety Concerns. Roll Left & Right (QC): 3 Lying to Sitting/Side of Bed(Q: 3 Sit to Stand (QC): 4 (CGA from elevated bed) Chair/Jwy-iy-Rnzop Xfer(QC): 4 Gait Training Distance: 5' Gait Assistive Device: FWW CGA, slow but fairly steady ambulation Exercises Seated Therapy Exercises: Ankle pumps, Long arc quads Seated Reps: 20 Treatments bed mobility and transfers, ambulation, LE exercise Assessment Current Status: Fair Progress Patient was able to get out of bed today. His O2 dropped to 90% but comes back up to 94% with a short rest. PT Underwear Welter Goals Underwear Welter Goals PT Shelter Goals Time Frame: Jan 02, 2021 Roll Left & Right (QC): 4 Sit to Lying (QC): 4 Lying-Sitting on Side/Bed(QC): 4 Sit to Stand (QC): 3 Chair/Xmb-nl-Klggs Xfer(QC): 3 Walk 10 feet (QC): 3 PT Plan Problem List Problem List: Activity Tolerance, Functional Strength, Safety, Balance, Gait, Transfer, Bed Mobility, ROM Treatment/Plan Treatment Plan: Continue Plan of Care Treatment Plan: Bed Mobility, Education, Functional Activity Paul, Functional Strength, Gait, Safety, Therapeutic Exercise, Transfers Treatment Duration: Jan 02, 2021 Frequency: 6 times per week Estimated Hrs Per Day: .25 hour per day Patient and/or Family Agrees t: Yes Safety Risks/Education Patient Education: Gait Training, Transfer Techniques, Correct Positioning, Safety Issues Teaching Recipient: Patient Teaching Methods: Demonstration, Discussion Response to Teaching: Reinforcement Needed Time/GCodes Time In: 901 Time Out: 913 Total Billed Treatment Time: 12 Total Billed Treatment 1 visit FA BARB THAPA PT Dec 27, 2020 09:37
[2020-12-27] MEDS: KCL 10 MEQ TAB (MICRO K) PO SCH (10:15)
--- NOTE | 2020-12-27 10:18 | Progress Note ---
Subjective Subjective/Events-last exam Feeling much better this AM. Tolerating PO diet. Sitting up in chair this AM. Review of Systems General: Fatigue Pulmonary: Dyspnea, Cough Cardiovascular: Chest Pain; No: Palpitations, Edema Gastrointestinal: No: Nausea, Vomiting, Abdominal Pain, Diarrhea, Constipation Genitourinary: No Dysuria, No Frequency Neurological: Weakness, Incoordination Focused Exam Time of Focused Exam: 11:00 Objective Exam Last Set of Vital Signs Vital Signs Date Time Temp Pulse Resp B/P (MAP) Pulse Ox O2 Delivery O2 Flow Rate FiO2 12/27/20 10:05 92 High Flow N/C 13.00 12/27/20 09:00 85 21 157/87 12/27/20 08:00 36.0 12/25/20 20:00 40 Capillary Refill : Less Than 3 Seconds I&O Intake and Output 12/27/20 00:00 Intake Total 3150 ml Output Total 4000 ml Balance -850 ml Intake Oral 2150 ml IV Total 1000 ml Output Urine Total 4000 ml # Bowel Movements 6 General: Alert, Oriented X3, Cooperative, Mild Distress Lungs: Other (end exp wheezing with increased work of breathing with minimal exertion) Heart: Regular Rate Abdomen: Normal Bowel Sounds, Soft, No Tenderness, No Masses Extremities: Other (1+ pitting edema bilaterally) Skin: No Rashes Neuro: Normal Speech, Sensation Intact, Cranial Nerves 3-12 NL Results/Procedures Lab Laboratory Tests 12/26/20 13:52: Glucometer 161H 12/26/20 17:29: Glucometer 181H 12/26/20 21:27: Glucometer 151H 12/27/20 04:30: White Blood Count 8.9, Red Blood Count 3.69L, Hemoglobin 10.8L, Hematocrit 33L, Mean Corpuscular Volume 90, Mean Corpuscular Hemoglobin 29, Mean Corpuscular Hemoglobin Concent 33, Red Cell Distribution Width 13.6, Platelet Count 277, Mean Platelet Volume 9.2, Immature Granulocyte % (Auto) 0, Neutrophils (%) (Auto) 72, Lymphocytes (%) (Auto) 10L, Monocytes (%) (Auto) 8, Eosinophils (%) (Auto) 9, Basophils (%) (Auto) 0, Neutrophils # (Auto) 6.4, Lymphocytes # (Auto) 0.9L, Monocytes # (Auto) 0.7, Eosinophils # (Auto) 0.8H, Basophils # (Auto) 0.0, Immature Granulocyte # (Auto) 0.0, Sodium Level 141, Potassium Level 3.5L, Chloride Level 103, Carbon Dioxide Level 25, Anion Gap 13, Blood Urea Nitrogen 11, Creatinine 0.98, Estimat Glomerular Filtration Rate 78, BUN/Creatinine Ratio 11, Glucose Level 135H, Calcium Level 8.4L, Corrected Calcium 9.5, Phosphorus Level 2.8, Magnesium Level 1.9, Total Bilirubin 0.5, Aspartate Amino Transf ( AST/SGOT) 17, Alanine Aminotransferase (ALT/SGPT) 11, Alkaline Phosphatase 64, Total Protein 5.9L, Albumin 2.6L Microbiology 12/22/20 Gram Stain - Final, Complete 12/22/20 Sputum Culture - Final, Complete Usual upper respiratory linnette YEAST 12/22/20 Blood Culture - Preliminary, Resulted No growth 12/22/20 Urine Culture - Final, Complete NO GROWTH Assessment/Plan Assessment/Plan (1) Acute and chronic respiratory failure with hypoxia Status: Acute Assessment & Plan: 12/26: Extubated yesterday, MAT protocol, continue to titrate oxygen as tolerated 12/27: No baseline oxygen requirement, continue to titrate as tolerated (2) Respiratory arrest Status: Acute (3) COPD exacerbation Status: Acute Assessment & Plan: 12/26: Steroids/antibiotics (4) Insulin dependent diabetes mellitus with complications Status: Chronic Assessment & Plan: 12/26: A1c 10.0 (5) CAD (coronary artery disease) Status: Acute Assessment & Plan: 12/26: Cardiology consulted, appreciate recommendations Qualifiers: Qualified Codes: I25.10 - Atherosclerotic heart disease of [place] coronary artery without angina pectoris (6) Debility Status: Acute Assessment & Plan: PT/OT JOCELYN THOMPSON MD Dec 27, 2020 10:18
[2020-12-27] MEDS: ENOXAPARIN 40 MG/0.4 ML (LOVENOX) SYR SC SCH (13:06)
--- NOTE | 2020-12-27 13:50 | Physician Query Clarification ---
Physician Query-General Query to Physician: Clinical Validation Clarification Dr Zaire Boss Pneumonia has been documented in the medical record. After study, has Pneumonia been ruled out? If it has been ruled out, please docu ment Pneumonia" in the progress notes and/or discharge summary. 1. Yes, Pneumonia ruled out/not clinically valid 2. No, Pneumonia has not been ruled out/is clinically valid* *Please document the clinical evidence supportive of this diagnosis (even if now resolved) in the Progress Notes and Discharge Summary 3. Other, with explanation of the clinical findings 4. Clinically undetermined, no explanation for the clinical findings Additional information: Admitted with Respiratory failure/intubated Admission VS/LABS: HR 105, RR 27, BP 203/116, SpO2 93% sat 100% was being bagged on arrival T 35.9, WBC 15.1, glucose 408, lactic Acid 3.29, BC x2 NGTD, Treatment in ER: lactated Ringer's 1 L, normal saline 4 L, cefepime IV, vancomycin IV, intubation Chest X ray results: Markedly increased airspace opacities in the lungs bilaterally, may be due to infection or edema. Please remember a lack of response to the above will prompt a phone page by CDI/coding staff. In responding to this query, please exercise your independent professional judgment. The purpose of this communication is to more accurately reflect the complexity of your patients condition. The fact that a question is asked does not imply that any particular answer is desired or expected. Thank you for your timely response to this clarification. Nayeli Baez MSN, RN Clinical Shop Worker [email or web address] PHYSICIAN RESPONSE: Based on the clinical findings in the record, please respond to the query above on this document as an addendum. Physician Response: Physician Response Patient had hypoxia and hypercarbia due to COPD not PNA If you have questions please contact: National Sales Manager: Ext: Thank you for your time and cooperation. Clinical Shop Worker/National Sales Manager This is a permanent part of the medical record NAYELI BAEZ Dec 27, 2020 13:50 JOCELYN BOSS MD Jan 11, 2021 20:43
--- NOTE | 2020-12-27 14:16 | Occupational Ther Daily Note ---
OT Current Status-Daily Note Subjective Pt in bed, agreeable to OT Tx. ADL-Treatment Therapy Code Descriptions/Definitions Functional [place] Measure: 0=Not Assessed/NA 4=Minimal Assistance 1=Total Assistance 5=Supervision or Setup 2=Maximal Assistance 6=Modified [place] 3=Moderate Assistance 7=Complete IndependenceSCALE: Activities may be completed with or without assistive devices. 2-Dvxspwwceb-zennmwv completes the activity by him/herself with no assistance from a helper. 5-Set-up or Clean-up Assistance-helper sets up or cleans up; patient completes activity. [place] assists only prior to or following the activity. 4-Supervision or Touching Assistance-helper provides verbal cues and/or touching/steadying and/or contact guard assistance as patient completes activity. Assistance may be provided throughout the activity or intermittently. 3-Partial/Moderate Assistance-helper does LESS THAN HALF the effort. [place] lifts, holds or supports trunk or limbs, but provides less than half the effort. 2-Substantial/Maximal Assistance-helper does MORE THAN HALF the effort. [place] lifts or holds trunk or limbs and provides more than half the effort. 9-Bhjfjsawb-tbjxtu does ALL the effort. Patient does none of the effort to complete the activity. Or, the assistance of 2 or more helpers is required for the patient to complete the activity. If activity was not attempted, code reason: 7-Patient Refused. 9-Not Applicable-not attempted and the patient did not perform the activity befo re the current illness, exacerbation or injury. 10-Not Attempted due to Environmental Limitations-(lack of equipment, weather re straints, etc.). 88-Not Attempted due to Medical Conditions or Safety Concerns. Other Treatment OT tx with focus on BUE exercises in order to increase strength and activity tolerance. Pt completed x10-15 reps each of the following, adjusting the resistance to his preference: shoulder flexion, external rotation, horizontal abduction, elbow flexion and elbow extension. Pt took rest breaks as needed. Post tx, pt in bed, call light in reach and all needs met. Education OT Patient Education: Correct positioning, Modified ADL techniques, Progress toward Goal/Update tx plan, Purpose of tx/functional activities Teaching Recipient: Patient Teaching Methods: Discussion Response to Teaching: Verbalize Understanding OT Usp Goals Mark Up Designer Goals Time Frame: Jan 06, 2021 Eating (QC): 6 Oral Hygiene (QC): 6 Toileting Hygiene (QC): 6 Shower/Bathe Self (QC): 6 Upper Body Dressing (QC): 6 Lower Body Dressing (QC): 6 On/Off Footwear (QC): 6 Additional Goals: 1-Demonstrate ADL Tasks, 2-Verbalize Understanding, 3- ImproveStrength/Paul 1=Demonstrate adherence to instructed precautions during ADL tasks. 2=Patient will verbalize/demonstrate understanding of assistive devices/modifications for ADL. 3=Patient will improve strength/tolerance for activity to enable patient to perform ADL's. OT Education/Plan Problem List/Assessment Assessment: Decreased Activ Tolerance, Decreased UE Strength, Impaired Funct Balance, Impaired I ADL's, Impaired Self-Care Skills Discharge Recommendations Plan/Recommendations: Continue POC Treatment Plan/Plan of Care Patient would benefit from OT for education, treatment and training to promote independence in ADL's, mobility, safety and/or upper extremity function for ADL's. Plan of Care: ADL Retraining, Functional Mobility, UE Funct Exercise/Act Treatment Duration: Jan 06, 2021 Frequency: 6 times per week Estimated Hrs Per Day: .25 hour per day Rehab Potential: Guarded Time/GCodes Start Time: 13:50 Stop Time: 14:05 Total Time Billed (hr/min): 15 Billed Treatment Time 1, EX DANIKA LOERA OT Dec 27, 2020 14:16
[2020-12-27 16:00] VITALS: BP 144/82
[2020-12-27] MEDS: ONDANSETRON 4 MG/2 ML (SDV) Z0FRAN IV PRN (18:18)
[2020-12-27 19:40] VITALS: BP 122/76
[2020-12-27] MEDS: ACETAMINOPHEN 325 MG TABLET PO PRN (21:11)
[2020-12-27] MEDS: fentaNYL INJ 100 MCG/2 ML AMP IVP PRN (23:49)
[2020-12-28 00:11] VITALS: BP 104/58
[2020-12-28] MEDS: ACETAMINOPHEN 325 MG TABLET PO PRN ×2 (03:14→15:28)
[2020-12-28 04:11] VITALS: BP 112/72
[2020-12-28 05:36] LABS: BASOPHILS % (AUTO) 1 % (0-10); EOSINOPHILS # (AUTO) 0.8 10^3/uL (0.0-0.3); EOSINOPHILS % (AUTO) 10 % (0-10); HEMATOCRIT 31 % (40-54); HEMOGLOBIN 10.1 g/dL (13.3-17.7); LYMPHOCYTES % (AUTO) 12 % (12-44); MEAN CORPUSCULAR HEMOGLOBIN 29 pg (25-34); MEAN CORPUSCULAR HGB CONC 33 g/dL (32-36); MEAN CORPUSCULAR VOLUME 90 fL (80-99); MEAN PLATELET VOLUME 9.3 fL (9.0-12.2); MONOCYTES # (AUTO) 0.7 10^3/uL (0.0-1.0); MONOCYTES % (AUTO) 8 % (0-12); NEUTROPHILS # (AUTO) 5.7 10^3/uL (1.8-7.8); NEUTROPHILS % (AUTO) 69 % (42-75); PLATELET COUNT 288 10^3/uL (130-400); WHITE BLOOD COUNT 8.3 10^3/uL (4.3-11.0)
[2020-12-28] MEDS: VASOPRESSIN INJECTION 20 UNIT in NS (IVPB) 100 ML IV SCH (05:50)
[2020-12-28] MEDS: NOREPINEPHRINE 8 MG/250 ML 250 ML IV SCH (05:50)
[2020-12-28 06:00] LABS: ALBUMIN 2.5 GM/DL (3.2-4.5); POTASSIUM 3.5 MMOL/L (3.6-5.0)
[2020-12-28 06:01] LABS: CALCIUM 8.2 MG/DL (8.5-10.1)
[2020-12-28 06:02] LABS: TOTAL PROTEIN 5.7 GM/DL (6.4-8.2)
[2020-12-28 06:04] LABS: BILIRUBIN,TOTAL 0.3 MG/DL (0.1-1.0)
[2020-12-28 06:05] LABS: PHOSPHORUS 3.1 MG/DL (2.3-4.7)
[2020-12-28 06:06] LABS: CREATININE SERUM 1.14 MG/DL (0.60-1.30)
[2020-12-28 06:09] LABS: MAGNESIUM 1.9 MG/DL (1.6-2.4)
[2020-12-28] MEDS: POTASSIUM CL 10MEQ/50ML IVPB 50 ML IV SCH (06:11)
[2020-12-28] MEDS: MAGNESIUM 1 GM/100 ML IVPB 100 ML IV SCH (06:11)
[2020-12-28] MEDS ORDERED: KCL 20 MEQ TAB (K-DUR) PO ONE (06:15)
[2020-12-28] MEDS: GLIMEPIRIDE 1 MG (AMARYL) TAB PO SCH (06:31)
[2020-12-28 08:00] VITALS: BP 145/74
[2020-12-28] MEDS: inSUlin ASPART (NovoLOG) 1 UNIT/0.01 ML (CHARGE PER UNIT) SC SCH ×3 (08:00→17:37)
[2020-12-28] MEDS: RT-ALBUTEROL/IPRATROPIUM 3 ML (DUONEB) VIAL INH SCH ×4 (08:06→20:25)
--- NOTE | 2020-12-28 09:08 | Physical Therapy Daily Note ---
PT Daily Note-Current Subjective Patient in recliner pre tx, agrees to PT, has no complaints of pain. Appearance Patient in bed post tx with nurse call ,phone, tray, all needs met. Mental Status Patient Orientation: Person, Place, Situation Attachments: Oxygen, Thompson Catheter Transfers SCALE: Activities may be completed with or without assistive devices. 2-Bobqksoova-ocbuxiw completes the activity by him/herself with no assistance from a helper. 5-Set-up or Clean-up Assistance-helper sets up or cleans up; patient completes activity. [place] assists only prior to or following the activity. 4-Supervision or Touching Assistance-helper provides verbal cues and/or touching/steadying and/or contact guard assistance as patient completes activi ty. Assistance may be provided throughout the activity or intermittently. 3-Partial/Moderate Assistance-helper does LESS THAN HALF the effort. [place] lifts, holds or supports trunk or limbs, but provides less than half the effort. 2-Substantial/Maximal Assistance-helper does MORE THAN HALF the effort. [place] lifts or holds trunk or limbs and provides more than half the effort. 8-Nsulxmtgk-esikei does ALL the effort. Patient does none of the effort to complete the activity. Or, the assistance of 2 or more helpers is required for the patient to complete the activity. If activity was not attempted, code reason: 7-Patient Refused. 9-Not Applicable-not attempted and the patient did not perform the activity before the current illness, exacerbation or injury. 10-Not Attempted due to Environmental Limitations-(lack of equipment, weather restraints, etc.). 88-Not Attempted due to Medical Conditions or Safety Concerns. Roll Left & Right (QC): 6 Sit to Lying (QC): 4 Sit to Stand (QC): 4 Chair/Bbz-ld-Pfpmd Xfer(QC): 4 Gait Training Distance: 150' Walk 10 feet (QC): 4 Walk 50 ft with 2 Turns(QC): 4 Walk 150 ft (QC): 4 Gait Persons Needed: 1 Gait Assistive Device: FWW slow ambulation, has moments of unsteadiness, needs CGA, occasional standing rest break due to fatigue and SOB Treatments bed mobility and transfers, ambulation Assessment Current Status: Fair Progress improved endurance and ambulation PT Manufacturing Engineer Machining Goals Senior Living Goals PT Manufacturing Engineer Machining Goals Time Frame: Jan 02, 2021 Roll Left & Right (QC): 4 Sit to Lying (QC): 4 Lying-Sitting on Side/Bed(QC): 4 Sit to Stand (QC): 3 Chair/Kci-kx-Ivdpj Xfer(QC): 3 Walk 10 feet (QC): 3 PT Plan Problem List Problem List: Activity Tolerance, Functional Strength, Safety, Balance, Gait, Transfer, Bed Mobility, ROM Treatment/Plan Treatment Plan: Continue Plan of Care Treatment Plan: Bed Mobility, Education, Functional Activity Paul, Functional Strength, Gait, Safety, Therapeutic Exercise, Transfers Treatment Duration: Jan 02, 2021 Frequency: 6 times per week Estimated Hrs Per Day: .25 hour per day Patient and/or Family Agrees t: Yes Safety Risks/Education Patient Education: Gait Training, Transfer Techniques, Correct Positioning, Safety Issues Teaching Recipient: Patient Teaching Methods: Demonstration, Discussion Response to Teaching: Reinforcement Needed Time/GCodes Time In: 830 Time Out: 0848 Total Billed Treatment Time: 17 Total Billed Treatment 1 visit GT 17' BARB CARLISLE PT Dec 28, 2020 09:08
[2020-12-28] MEDS: PANTOPRAZOLE 40 MG (PROTONIX) VIAL IV SCH (09:15)
[2020-12-28] MEDS: DULoxetine 30 MG (CYMBALTA) CAP PO SCH ×2 (09:16→17:33)
[2020-12-28] MEDS: ISOSORBIDE MONONITRATE 30 MG (IMDUR) TAB PO SCH (09:16)
[2020-12-28] MEDS: amLODIPine 10 MG (NORVASC) TAB PO SCH (09:16)
[2020-12-28] MEDS: LOSARTAN 100 MG (COZAAR) TABLET PO SCH (09:16)
[2020-12-28] MEDS: CLOPIDOGREL 75 MG (PLAVIX) TABLET PO SCH (09:16)
[2020-12-28] MEDS: MICONAZOLE 2% POWDER (DESENEX AF) 90 GM TOP SCH ×2 (09:16→20:56)
[2020-12-28] MEDS: NYSTATIN CREAM (MYCOSTATIN) 30 GM TUBE TP SCH ×3 (09:16→20:56)
[2020-12-28] MEDS: meTOprolol SUCCINATE 100 MG (TOPROL XL) TAB PO SCH (09:16)
[2020-12-28] MEDS: MUPIROCIN 2% OINT 22 GM (BACTROBAN) TUBE TP SCH ×2 (09:16→20:56)
[2020-12-28] MEDS: metFORMIN 500 MG (GLUCOPHAGE) TAB PO SCH ×2 (09:16→17:33)
[2020-12-28] MEDS: KCL 10 MEQ TAB (MICRO K) PO SCH (09:16)
[2020-12-28] MEDS: TOBRA/DEXAMETH (TOBRADEX) OPHTH OINT 3.5 GM TUBE OP SCH ×3 (09:23→20:57)
--- NOTE | 2020-12-28 10:02 | Cardiology Progress Note ---
Subjective Date Seen by Provider: Dec 28, 2020 Time Seen by Provider: 09:58 Subjective/Events-last exam Patient sitting up in bed, denies any chest pain or dyspnea. Review of Systems General: No Chills, No Night Sweats, No Fatigue, No Malaise, No Appetite, No Other HEENT: No Head Aches, No Visual Changes, No Eye Pain, No Ear Pain, No Dysphasia, No Sinus Congestion, No Post Nasal Drip, No Sore Throat, No Other Pulmonary: No Dyspnea, No Cough, No Pleuritic Chest Pain, No Other Cardiovascular: No: Chest Pain, Palpitations, Orthopnea, Paroxysmal Noc. Dyspnea, Edema, Lt Headedness, Other Focused Exam Time of Focused Exam: 11:00 Objective-Cardiology Exam Last Set of Vital Signs Vital Signs 12/25/20 12/28/20 20:00 11:50 Temp 36.8 Pulse 92 Resp 20 B/P (MAP) 167/78 (107) Pulse Ox 92 O2 Delivery High Flow N/C O2 Flow Rate 3.00 FiO2 40 I&O Intake and Output 12/28/20 00:00 Intake Total 1625 ml Output Total 2350 ml Balance -725 ml Intake Oral 1625 ml Output Urine Total 2350 ml # Bowel Movements 6 General: Alert, Oriented X3, Cooperative, Mild Distress HEENT: Atraumatic, PERRLA Neck: Supple, No JVD, No Thyromegaly Lungs: Clear to Auscultation, Normal Air Movement Heart: Regular Rate, Normal S1, Normal S2 Abdomen: Normal Bowel Sounds, Soft, No Tenderness, No Masses Extremities: No Clubbing, Other (1+ pitting edema bilaterally) Skin: No Rashes Neuro: Normal Speech, Sensation Intact, Cranial Nerves 3-12 NL Psych/Mental Status: Mental Status NL, Mood NL Results Lab Laboratory Tests 12/28/20 05:20 A/P-Cardiology Admission Diagnosis Acute respiratory failure CAD HTN DM Assessment/Plan Status post acute respiratory failure with flash pulmonary edema, better at this time. Echo 12/24/20: LVEF 60-65%, mild conc LVH, PASP 20-25 mmHg. Patient is extubated, slowly improving. Chest pain, chronic stable angina, maintained on isosorbide as an outpatient. Feeling better after restarting isosorbide. Tolerating medication well. Coronary artery disease-underwent cardiac catheterization on December 09, 2017 revealing multivessel coronary artery disease with severe stenosis in the proximal circumflex artery with primary stenting using Rocío 3.012 mm expanded to 3.25 mm with excellent results. Severe stenosis in the mid right coronary artery with primary stenting using 2.512 mm Rocío expanded to 2.75 with excellent results. Mild to moderate disease in the proximal LAD, severe stenosis at the ostium of first diagonal artery that is very small artery. Most recent cardiac catheterization done February 04, 2019 revealed total occlusion of the left PDA off the circumflex artery, patent stent in the proximal circumflex. Patent stent in the midright coronary artery. Mild disease in the LAD. Patient is allergic to aspirin, was unable to afford Brilinta, maintained on Plavix. 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 Mild bilateral carotid stenosis, ultrasound was done in December 2018, continue to monitor. Family history of heart disease History of psoriasis. Diabetes mellitus, admitted with DKA, has had previous hospitalizations for DKA. Management per medical services Obesity, BMI is 39, we discussed weight loss and exercise Patient was seen and evaluated with Marsha, examination performed, management plan was discussed, agree with the current scribed note, I made few changes to the note using Italic font Patient was seen at bedside laying down comfortably Breathing better but still having some shortness of breath today Cardiac enzymes were negative Denied any active chest pain Continue on current medication monitor Supervisory-Addendum Brief Supervisory Addendum Participated in pt care: history, MDM, physical Personally performed: exam, history, MDM Care discussed with: ONOFRE Results interpretation: Verified all documentation MARSHA ZHANG Dec 28, 2020 10:02 CROW KNIGHT MD Dec 28, 2020 15:18
[2020-12-28 11:50] VITALS: BP 167/78
--- NOTE | 2020-12-28 14:25 | Occupational Ther Daily Note ---
OT Current Status-Daily Note Subjective Pt alert, lying in bed. Pt agrees to therapy. No c/o pain only states that he is always in constant pain from past back injury 04/27. SW in room and told pt he would d/c tomorrow. Mental Status/Objective Patient Orientation: Person, Place, Time, Situation Attachments: IV ADL-Treatment Therapy Code Descriptions/Definitions Functional [place] Measure: 0=Not Assessed/NA 4=Minimal Assistance 1=Total Assistance 5=Supervision or Setup 2=Maximal Assistance 6=Modified [place] 3=Moderate Assistance 7=Complete IndependenceSCALE: Activities may be completed with or without assistive devices. 5-Fiktbihdvt-kqmoimv completes the activity by him/herself with no assistance from a helper. 5-Set-up or Clean-up Assistance-helper sets up or cleans up; patient completes activity. [place] assists only prior to or following the activity. 4-Supervision or Touching Assistance-helper provides verbal cues and/or touching/steadying and/or contact guard assistance as patient completes activity. Assistance may be provided throughout the activity or intermittently. 3-Partial/Moderate Assistance-helper does LESS THAN HALF the effort. [place] lifts, holds or supports trunk or limbs, but provides less than half the effort. 2-Substantial/Maximal Assistance-helper does MORE THAN HALF the effort. [place] lifts or holds trunk or limbs and provides more than half the effort. 3-Vhvhrwrhh-pqsjwb does ALL the effort. Patient does none of the effort to complete the activity. Or, the assistance of 2 or more helpers is required for the patient to complete the activity. If activity was not attempted, code reason: 7-Patient Refused. 9-Not Applicable-not attempted and the patient did not perform the activity before the current illness, exacerbation or injury. 10-Not Attempted due to Environmental Limitations-(lack of equipment, weather restraints, etc.). 88-Not Attempted due to Medical Conditions or Safety Concerns. Other Treatment Pt given HEP for medium resistance theraband. Skilled instruction required for correct technique. Pt able to complete 6 exercises 1 set 10 reps with recovery break between each set on HEP to strengthening B UE for daily functional tasks. After therapy, pt lying in bed with call light/phone in reach. All needs met in room. OT Ophthalmic Tech Goals [facility] Goals Time Frame: Jan 06, 2021 Eating (QC): 6 Oral Hygiene (QC): 6 Toileting Hygiene (QC): 6 Shower/Bathe Self (QC): 6 Upper Body Dressing (QC): 6 Lower Body Dressing (QC): 6 On/Off Footwear (QC): 6 Additional Goals: 1-Demonstrate ADL Tasks, 2-Verbalize Understanding, 3-ImproveStrength/Paul 1=Demonstrate adherence to instructed precautions during ADL tasks. 2=Patient will verbalize/demonstrate understanding of assistive devices/modifications for ADL. 3=Patient will improve strength/tolerance for activity to enable patient to perform ADL's. OT Education/Plan Problem List/Assessment Assessment: Decreased Activ Tolerance, Decreased UE Strength Discharge Recommendations Plan/Recommendations: Continue POC Treatment Plan/Plan of Care Patient would benefit from OT for education, treatment and training to promote independence in ADL's, mobility, safety and/or upper extremity function for ADL's. Plan of Care: ADL Retraining, Functional Mobility, UE Funct Exercise/Act Treatment Duration: Jan 06, 2021 Frequency: 6 times per week Estimated Hrs Per Day: .25 hour per day Rehab Potential: Guarded Time/GCodes Start Time: 12:40 Stop Time: 13:10 Total Time Billed (hr/min): 20 Billed Treatment Time 1 visit-EX 1 (20 min) RADHA WADSWORTH Dec 28, 2020 14:25
[2020-12-28] MEDS: ENOXAPARIN 40 MG/0.4 ML (LOVENOX) SYR SC SCH (15:25)
[2020-12-28 16:00] VITALS: BP 120/67
[2020-12-28] MEDS: ONDANSETRON 4 MG/2 ML (SDV) Z0FRAN IV PRN (18:51)
[2020-12-28 20:01] VITALS: BP 127/75
--- NOTE | 2020-12-28 20:36 | Progress Note ---
Subjective Subjective/Events-last exam Patient states that he is feeling better. States that Dr Soto had patient on oxygen several years ago after a hospitalization. Tolerating PO diet. Review of Systems Pulmonary: Dyspnea, Cough Cardiovascular: No: Chest Pain, Palpitations, Edema Gastrointestinal: No: Nausea, Vomiting, Abdominal Pain, Diarrhea, Constipation Neurological: Weakness, Incoordination Focused Exam Time of Focused Exam: 11:00 Objective Exam Last Set of Vital Signs Vital Signs Date Time Temp Pulse Resp B/P (MAP) Pulse Ox O2 Delivery O2 Flow Rate FiO2 12/28/20 20:01 36.8 81 20 127/75 (92) 99 NIV CPAP 5.00 12/25/20 20:00 40 Capillary Refill : Less Than 3 Seconds I&O Intake and Output 12/28/20 00:00 Intake Total 1625 ml Output Total 2350 ml Balance -725 ml Intake Oral 1625 ml Output Urine Total 2350 ml # Bowel Movements 6 General: Alert, Oriented X3, Mild Distress (with minimal exertion) Lungs: Clear to Auscultation, Normal Air Movement Heart: Regular Rate, No Murmurs Abdomen: Normal Bowel Sounds, Soft, No Tenderness, No Masses Extremities: Other (1+ pitting edema) Skin: No Rashes Neuro: Normal Speech, Cranial Nerves 3-12 NL Psych/Mental Status: Mental Status NL, Mood NL Results/Procedures Lab Laboratory Tests 12/28/20 05:11: Glucometer 134H 12/28/20 05:20: White Blood Count 8.3, Red Blood Count 3.43L, Hemoglobin 10.1L, Hematocrit 31L, Mean Corpuscular Volume 90, Mean Corpuscular Hemoglobin 29, Mean Corpuscular Hemoglobin Concent 33, Red Cell Distribution Width 13.3, Platelet Count 288, Mean Platelet Volume 9.3, Immature Granulocyte % (Auto) 1, Neutrophils (%) (Auto) 69, Lymphocytes (%) (Auto) 12, Monocytes (%) (Auto) 8, Eosinophils (%) (Auto) 10, Basophils (%) (Auto) 1, Neutrophils # (Auto) 5.7, Lymphocytes # (Auto) 1.0, Monocytes # (Auto) 0.7, Eosinophils # (Auto) 0.8H, Basophils # (Auto) 0.0, Immature Granulocyte # (Auto) 0.1, Sodium Level 136, Potassium Level 3.5L, Chloride Level 101, Carbon Dioxide Level 24, Anion Gap 11, Blood Urea Nitrogen 14, Creatinine 1.14, Estimat Glomerular Filtration Rate 66, BUN/Crea tinine Ratio 12, Glucose Level 129H, Calcium Level 8.2L, Corrected Calcium 9.4, Phosphorus Level 3.1, Magnesium Level 1.9, Total Bilirubin 0.3, Aspartate Amino Transf (AST/SGOT) 22, Alanine Aminotransferase (ALT/SGPT) 11, Alkaline Phosphatase 70, Total Protein 5.7L, Albumin 2.5L 12/28/20 11:35: Glucometer 202H 12/28/20 16:10: Glucometer 106 12/28/20 20:23: Glucometer 114H Microbiology 12/22/20 Gram Stain - Final, Complete 12/22/20 Sputum Culture - Final, Complete Usual upper respiratory [place] YEAST 12/22/20 Blood Culture - Final, Complete No growth 12/22/20 Urine Culture - Final, Complete NO GROWTH Assessment/Plan Assessment/Plan (1) Acute and chronic respiratory failure with hypoxia Status: Acute Assessment & Plan: 12/26: Extubated yesterday, MAT protocol, continue to titrate oxygen as tolerated 12/27: No baseline oxygen requirement, continue to titrate as tolerated 12/28: Home oxygen testing in the AM, encourage IS, continue to titrate as tolerated, patient will need oxygen at baseline at home (2) Respiratory arrest Status: Resolved (3) COPD exacerbation Status: Acute Assessment & Plan: 12/26: Steroids/antibiotics (4) Insulin dependent diabetes mellitus with complications Status: Chronic Assessment & Plan: 12/26: A1c 10.0 (5) CAD (coronary artery disease) Status: Acute Assessment & Plan: 12/26: Cardiology consulted, appreciate recommendations Qualifiers: Qualified Codes: I25.10 - Atherosclerotic heart disease of [place] coronary artery without angina pectoris (6) Debility Status: Acute Assessment & Plan: PT/OT JOCELYN THOMPSON MD Dec 28, 2020 20:36
[2020-12-28] MEDS: fentaNYL INJ 100 MCG/2 ML AMP IVP PRN (21:03)
[2020-12-29] VITALS (15 sets, daily range): BP systolic 122–170; BP diastolic 64–117
[2020-12-29] MEDS: ACETAMINOPHEN 325 MG TABLET PO PRN ×3 (02:42→18:10)
[2020-12-29 05:35] LABS: BASOPHILS # (AUTO) 0.1 10^3/uL (0.0-0.1); BASOPHILS % (AUTO) 1 % (0-10); EOSINOPHILS # (AUTO) 0.6 10^3/uL (0.0-0.3); EOSINOPHILS % (AUTO) 8 % (0-10); HEMATOCRIT 31 % (40-54); HEMOGLOBIN 10.1 g/dL (13.3-17.7); LYMPHOCYTES # (AUTO) 1.3 10^3/uL (1.0-4.0); LYMPHOCYTES % (AUTO) 16 % (12-44); MEAN CORPUSCULAR HEMOGLOBIN 29 pg (25-34); MEAN CORPUSCULAR HGB CONC 32 g/dL (32-36); MEAN CORPUSCULAR VOLUME 91 fL (80-99); MEAN PLATELET VOLUME 9.5 fL (9.0-12.2); MONOCYTES # (AUTO) 0.7 10^3/uL (0.0-1.0); MONOCYTES % (AUTO) 8 % (0-12); NEUTROPHILS # (AUTO) 5.4 10^3/uL (1.8-7.8); NEUTROPHILS % (AUTO) 67 % (42-75); PLATELET COUNT 319 10^3/uL (130-400); WHITE BLOOD COUNT 8.1 10^3/uL (4.3-11.0)
[2020-12-29 05:44] LABS: ALBUMIN 2.6 GM/DL (3.2-4.5); POTASSIUM 3.9 MMOL/L (3.6-5.0)
[2020-12-29 05:45] LABS: CALCIUM 8.3 MG/DL (8.5-10.1)
[2020-12-29 05:47] LABS: TOTAL PROTEIN 5.9 GM/DL (6.4-8.2)
[2020-12-29 05:48] LABS: BILIRUBIN,TOTAL 0.2 MG/DL (0.1-1.0)
[2020-12-29 05:51] LABS: CREATININE SERUM 1.14 MG/DL (0.60-1.30)
[2020-12-29] MEDS: GLIMEPIRIDE 1 MG (AMARYL) TAB PO SCH (05:58)
[2020-12-29] MEDS: ISOSORBIDE MONONITRATE 30 MG (IMDUR) TAB PO SCH (08:12)
[2020-12-29] MEDS: CLOPIDOGREL 75 MG (PLAVIX) TABLET PO SCH (08:12)
[2020-12-29] MEDS: LOSARTAN 100 MG (COZAAR) TABLET PO SCH (08:12)
[2020-12-29] MEDS: meTOprolol SUCCINATE 100 MG (TOPROL XL) TAB PO SCH (08:12)
[2020-12-29] MEDS: PANTOPRAZOLE 40 MG (PROTONIX) VIAL IV SCH (08:12)
[2020-12-29] MEDS: KCL 10 MEQ TAB (MICRO K) PO SCH (08:12)
[2020-12-29] MEDS: amLODIPine 10 MG (NORVASC) TAB PO SCH (08:12)
[2020-12-29] MEDS: metFORMIN 500 MG (GLUCOPHAGE) TAB PO SCH ×2 (08:12→17:13)
[2020-12-29] MEDS: DULoxetine 30 MG (CYMBALTA) CAP PO SCH ×2 (08:12→18:10)
[2020-12-29] MEDS: MICONAZOLE 2% POWDER (DESENEX AF) 90 GM TOP SCH ×2 (08:13→21:33)
[2020-12-29] MEDS: NYSTATIN CREAM (MYCOSTATIN) 30 GM TUBE TP SCH ×3 (08:13→21:33)
--- NOTE | 2020-12-29 08:15 | Cardiology Progress Note ---
Subjective Date Seen by Provider: Dec 29, 2020 Time Seen by Provider: 08:12 Subjective/Events-last exam Patient is up in bathroom, doing ADLs. Reports episode of chest pain last night and again this morning. Review of Systems General: No Chills, No Night Sweats, No Fatigue, No Malaise, No Appetite, No Other HEENT: No Head Aches, No Visual Changes, No Eye Pain, No Ear Pain, No Dysphasia, No Sinus Congestion, No Post Nasal Drip, No Sore Throat, No Other Pulmonary: Dyspnea; No Cough, No Pleuritic Chest Pain, No Other Cardiovascular: Chest Pain; No: Palpitations, Orthopnea, Paroxysmal Noc. Dyspnea, Edema, Lt Headedness, Other Focused Exam Time of Focused Exam: 11:00 Objective-Cardiology Exam Last Set of Vital Signs Vital Signs 12/25/20 12/29/20 12/29/20 20:00 08:00 08:28 Temp 36.2 Pulse 84 Resp 20 B/P (MAP) 144/85 (104) Pulse Ox 96 O2 Delivery Nasal Cannula O2 Flow Rate 4.00 FiO2 40 I&O Intake and Output 12/29/20 00:00 Intake Total 1980 ml Output Total 1275 ml Balance 705 ml Intake Oral 1980 ml Output Urine Total 1275 ml General: Alert, Oriented X3, Mild Distress (with minimal exertion) HEENT: Atraumatic, PERRLA Neck: Supple, No JVD, No Thyromegaly Lungs: Clear to Auscultation, Normal Air Movement Heart: Regular Rate, No Murmurs Abdomen: Normal Bowel Sounds, Soft, No Tenderness, No Masses Extremities: Other (1+ pitting edema) Skin: No Rashes Neuro: Normal Speech, Cranial Nerves 3-12 NL Psych/Mental Status: Mental Status NL, Mood NL Results Lab Laboratory Tests 12/29/20 05:11 A/P-Cardiology Admission Diagnosis Acute respiratory failure CAD HTN DM Assessment/Plan Status post acute respiratory failure with flash pulmonary edema, better at this time. Echo 12/24/20: LVEF 60-65%, mild conc LVH, PASP 20-25 mmHg. Chest pain, chronic stable angina, maintained on isosorbide as an outpatient. Has been having increasing chest pain last night and this morning. Will plan for [facility] this afternoon for further evaluation. Coronary artery disease-underwent cardiac catheterization on December 09, 2017 revealing multivessel coronary artery disease with severe stenosis in the proximal circumflex artery with primary stenting using Rocío 3.012 mm expanded to 3.25 mm with excellent results. Severe stenosis in the mid right coronary artery with primary stenting using 2.512 mm Rocío expanded to 2.75 with excellent results. Mild to moderate disease in the proximal LAD, severe stenosis at the ostium of first diagonal artery that is very small artery. Most recent cardiac catheterization done February 04, 2019 revealed total occlusion of the left PDA off the circumflex artery, patent stent in the proximal circumflex. Patent stent in the midright coronary artery. Mild disease in the LAD. Patient is allergic to aspirin, was unable to afford Brilinta, maintained on Plavix. 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 Mild bilateral carotid stenosis, ultrasound was done in December 2018, continue to monitor. Family history of heart disease History of psoriasis. Diabetes mellitus, admitted with DKA, has had previous hospitalizations for DKA. Management per medical services Obesity, BMI is 39, we discussed weight loss and exercise Supervisory-Addendum Brief Supervisory Addendum Participated in pt care: history, MDM, physical Personally performed: exam, history, MDM Care discussed with: ONOFRE Results interpretation: Verified all documentation Notes: Patient was seen and evaluated with Marsha, examination performed, management plan was discussed, agree with the current scribed note, I made few changes to the note using Italic font Patient was seen at bedside, still having active chest pain on and off Due to his recent cardiopulmonary arrest and the persistent chest pain I decided to proceed with cardiac catheterization possible PTCA Probably patient has underlying reactive airway disease with significant flareup. Managed by primary care team MARSHA ZHANG Dec 29, 2020 08:15 CROW KNIGHT MD Dec 29, 2020 09:12
[2020-12-29] MEDS: RT-ALBUTEROL/IPRATROPIUM 3 ML (DUONEB) VIAL INH SCH ×4 (08:34→18:37)
[2020-12-29] MEDS ORDERED: HEParin (CATH LAB) 2,000 ML IV ONE (08:49)
[2020-12-29] MEDS ORDERED: LIDOCAINE 1% INJ 20 ML 20 ML VIAL ONE (08:49)
[2020-12-29] MEDS: inSUlin ASPART (NovoLOG) 1 UNIT/0.01 ML (CHARGE PER UNIT) SC SCH ×3 (08:51→20:09)
--- NOTE | 2020-12-29 09:13 | Conscious Sedation/ASA ---
Conscious Sedation Pre-Proced Time 09:12 ASA Score 3 For ASA 3 and 4: Consider anesthesia and medical clearance. Also, for patients with a history of failed moderate sedation consider anesthesia. Airway Lungs Heart ASA score ASA 1: a normal healthy patient ASA 2: a patient with a mild systemic disease (mid diabetes, controlled hypertension, obesity ASA 3: a patient with a severe systemic disease that limits activity (angina, COPD, prior Myocardial infarction) ASA 4: a patient with an incapacitating disease that is a constant threat to life (CHF, renal failure) ASA 5: a moribund patient not expected to survive 24 hrs. (ruptured aneurysm) ASA 6: a declared brain- patient whose organs are being harvested. For emergent operations, add the letter E after the classification Mallampati Classification Grade 3 Sedation Plan Analgesia, Amnesia, Plan communicated to team members, Discussed options with patient/fam, Discussed risks with patient/fam The patient is an appropriate candidate to undergo the planned procedure, sedation, and anesthesia. The patient immediately re-assessed prior to indication. CROW KNIGHT MD Dec 29, 2020 09:13
--- NOTE | 2020-12-29 10:05 | Physical Therapy Daily Note ---
PT Daily Note-Current Subjective Patient agrees to PT. He reports he is up independently in room without AD. Mental Status Patient Orientation: Normal For Age Transfers SCALE: Activities may be completed with or without assistive devices. 5-Jlzzzqmokw-nbgfapi completes the activity by him/herself with no assistance from a helper. 5-Set-up or Clean-up Assistance-helper sets up or cleans up; patient completes activity. [place] assists only prior to or following the activity. 4-Supervision or Touching Assistance-helper provides verbal cues and/or touching/steadying and/or contact guard assistance as patient completes activity. Assistance may be provided throughout the activity or intermittently. 3-Partial/Moderate Assistance-helper does LESS THAN HALF the effort. [place] lift s, holds or supports trunk or limbs, but provides less than half the effort. 2-Substantial/Maximal Assistance-helper does MORE THAN HALF the effort. [place] lifts or holds trunk or limbs and provides more than half the effort. 6-Ljmnoqxgv-mrdlqc does ALL the effort. Patient does none of the effort to complete the activity. Or, the assistance of 2 or more helpers is required for the patient to complete the activity. If activity was not attempted, code reason: 7-Patient Refused. 9-Not Applicable-not attempted and the patient did not perform the activity before the current illness, exacerbation or injury. 10-Not Attempted due to Environmental Limitations-(lack of equipment, weather restraints, etc.). 88-Not Attempted due to Medical Conditions or Safety Concerns. Sit to Stand (QC): 6 Gait Training Distance: 25' x 2 Walk 10 feet (QC): 6 Gait Assistive Device: None safe and functional Treatments RT had removed O2 ~20 min prior to PT. PT assessed SAO2 with activity and patient decreased to 85% on RA and recovered to 86% on RA. O2 HF NC 1L placed with recovery to 88%. Increased to 2L with recovery to 95%. RT notified of findings. Assessment Current Status: Excellent Progress PT Senior Care Goals Script Writer Goals PT Script Writer Goals Time Frame: Jan 02, 2021 Roll Left & Right (QC): 4 Sit to Lying (QC): 4 Lying-Sitting on Side/Bed(QC): 4 Sit to Stand (QC): 3 Chair/Vmq-eh-Xrfvx Xfer(QC): 3 Walk 10 feet (QC): 3 PT Plan Treatment/Plan Treatment Plan: Continue Plan of Care Treatment Plan: Bed Mobility, Education, Functional Activity Paul, Functional Strength, Gait, Safety, Therapeutic Exercise, Transfers Treatment Duration: Jan 02, 2021 Frequency: 6 times per week Estimated Hrs Per Day: .25 hour per day Patient and/or Family Agrees t: Yes Time/GCodes Time In: 849 Time Out: 900 Total Billed Treatment Time: 11 Total Billed Treatment 1 visit FA 11 min DARLENE CARREON PT Dec 29, 2020 10:05
[2020-12-29] MEDS: NS IV 1000 ML 1,000 ML IV SCH ×3 (10:48→21:33)
--- NOTE | 2020-12-29 10:58 | Occupational Ther Daily Note ---
OT Current Status-Daily Note Subjective Pt up in recliner, agreeable to OT Tx. Pt talked extensively about various aspects of his life including past injuries that lead to him having a constant 3/10 pain in his back and neck. Pt required redirection to tx. Pt indicates he is planning on having a heart cath this afternoon, and is a little worried about it. Mental Status/Objective Patient Orientation: Person, Place, Situation Attachments: Oxygen ADL-Treatment Therapy Code Descriptions/Definitions Functional [place] Measure: 0=Not Assessed/NA 4=Minimal Assistance 1=Total Assistance 5=Supervision or Setup 2=Maximal Assistance 6=Modified [place] 3=Moderate Assistance 7=Complete IndependenceSCALE: Activities may be completed with or without assistive devices. 8-Ntendzxdag-kkygesf completes the activity by him/herself with no assistance from a helper. 5-Set-up or Clean-up Assistance-helper sets up or cleans up; patient completes activity. [place] assists only prior to or following the activity. 4-Supervision or Touching Assistance-helper provides verbal cues and/or touching/steadying and/or contact guard assistance as patient completes activity. Assistance may be provided throughout the activity or intermittently. 3-Partial/Moderate Assistance-helper does LESS THAN HALF the effort. [place] lifts, holds or supports trunk or limbs, but provides less than half the effort. 2-Substantial/Maximal Assistance-helper does MORE THAN HALF the effort. [place] lifts or holds trunk or limbs and provides more than half the effort. 5-Nedmlzlen-gagruk does ALL the effort. Patient does none of the effort to complete the activity. Or, the assistance of 2 or more helpers is required for the patient to complete the activity. If activity was not attempted, code reason: 7-Patient Refused. 9-Not Applicable-not attempted and the patient did not perform the activity before the current illness, exacerbation or injury. 10-Not Attempted due to Environmental Limitations-(lack of equipment, weather restraints, etc.). 88-Not Attempted due to Medical Conditions or Safety Concerns. Eating (QC): 88 (NPO for procedure) Upper Body Dressing (QC): 5 (per pt report) Lower Body Dressing (QC): 4 (Per pt report, he was able to don pants without assistance. SBA per clinical judgment.) On/Off Footwear: 6 (IND with socks, pt unable to don shoes due to LE swelling, but would be able to don independently if shoes fit.) Toileting Hygiene (QC): 6 (Pt reports IND) Toilet Transfer (QC): 6 (Pt reports IND) Other Treatment Pt up in recliner, agreeable to OT Tx. Pt in his clothing, states he was able to don clothing items by himself. Pt attempted to don shoes, but his LEs were too swollen to get his shoes on. Pt able to don/doff socks independently. Pt and OT discussed his home set up, he has difficulty with getting his LEs into the shower. Discussion about SC vs bath bench, but he is unable to use a bench due to his bathroom set up. Pt talked extensively about various aspects from his current/past life leading to where he is now. OT provided therapeutic listening, redirecting pt to tasks/discussions as appropriate. Pt states he has been completing his theraband exercises independently, and has no concerns with them. He is up in his room independently without AD, but feels like he is only about 75% of his baseline. Post tx, pt up in recliner, call light in reach and all needs met. Education OT Patient Education: Correct positioning, Modified ADL techniques, Progress toward Goal/Update tx plan, Purpose of tx/functional activities Teaching Recipient: Patient Teaching Methods: Discussion Response to Teaching: Verbalize Understanding OT Skilled Nursing Goals Skilled Nursing Goals Time Frame: Jan 06, 2021 Eating (QC): 6 Oral Hygiene (QC): 6 Toileting Hygiene (QC): 6 Shower/Bathe Self (QC): 6 Upper Body Dressing (QC): 6 Lower Body Dressing (QC): 6 On/Off Footwear (QC): 6 Additional Goals: 1-Demonstrate ADL Tasks, 2-Verbalize Understanding, 3- ImproveStrength/Paul 1=Demonstrate adherence to instructed precautions during ADL tasks. 2=Patient will verbalize/demonstrate understanding of assistive devices/modifications for ADL. 3=Patient will improve strength/tolerance for activity to enable patient to perform ADL's. OT Education/Plan Problem List/Assessment Assessment: Decreased Activ Tolerance, Decreased UE Strength, Impaired I ADL's, Impaired Self-Care Skills Discharge Recommendations Plan/Recommendations: Continue POC Treatment Plan/Plan of Care Patient would benefit from OT for education, treatment and training to promote independence in ADL's, mobility, safety and/or upper extremity function for ADL's. Plan of Care: ADL Retraining, Functional Mobility, UE Funct Exercise/Act Treatment Duration: Jan 06, 2021 Frequency: 6 times per week Estimated Hrs Per Day: .25 hour per day Rehab Potential: Guarded Time/GCodes Start Time: 10:20 Stop Time: 10:47 Total Time Billed (hr/min): 27 Billed Treatment Time 1, ADL 2 DANIKA LOERA OT Dec 29, 2020 10:58
[2020-12-29] MEDS ORDERED: VERAPAMIL 5 MG/2 ML (CALAN) VIAL IV ONE (14:58)
[2020-12-29] MEDS ORDERED: fentaNYL INJ 100 MCG/2 ML AMP ONE (14:58)
[2020-12-29] MEDS ORDERED: NITRO DRIP 25000 MCG/D5W 250 ML IV ONE (14:59)
[2020-12-29] MEDS ORDERED: MIDAZOLAM 5 MG/5 ML (VERSED) VIAL ONE (14:59)
[2020-12-29] MEDS ORDERED: HEParin 1000 UNIT/ML (10ML VIAL) FOR BOLUS ONE (14:59)
[2020-12-29] MEDS ORDERED: NS IV 1000 ML 1,000 ML ONE (14:59)
[2020-12-29] MEDS ORDERED: diphenhydrAMINE 50 MG/ML INJ (BENADRYL) ONE (15:28)
[2020-12-29] MEDS ORDERED: methylPREDNISolone 125 MG (Solu-MEDROL) VIAL ONE (15:28)
[2020-12-29] MEDS ORDERED: CLOPIDOGREL 300 MG (PLAVIX) TABLET PO ONE (16:25)
--- NOTE | 2020-12-29 16:29 | Cardiac Cath Report ---
Cardiac Cath Report Physician (s)/Recordist Chief (s) Physician CROW KNIGHT MD Pre-Procedure Diagnosis Pre-Procedure Diagnosis: Coronary artery disease Post-Procedure Note Procedure Start Date: Dec 29, 2020 Name of Procedure: Left heart catheterization Stenting to the circumflex artery Findings/Procedure Note PROCEDURE NOTE: 60 years old gentleman with a history of coronary artery disease, multiple intervention in the past, has been having recurrent chest pain, admitted with respiratory failure, still having active chest pain, decided to proceed with cardiac catheterization possible PTCA. After explaining the procedure to the patient, all pros and cons were explained, all questions were answered. The patient signed the consent and then he was placed on the cardiac catheterization laboratory. Groin was prepped SL fashion local anesthesia was used. Sheath placed in the right femoral artery. Jennifer right and left catheter were used to access the coronary system. Catheter prolapsed to the left ventricular cavity, Left ventriculogram was not done, pressure was measured Patient was noted to have severe stenosis in the distal circumflex artery, decision to proceed with primary stenting was made. Given 6000 units of heparin, EBU guide was used and BMW wire was advanced and parked distally. Primary stenting using skypoint 2.25 x 23 mm was deployed under 12 marleny up to 2.35 mm with excellent results. Angiogram showed excellent results. At the end of the procedure the sheath was removed. Closure device was deployed FINDINGS: Hemodynamics LV 131/23, end-diastolic pressure of 23 Aorta 134/66, mean of 95 ANATOMY: Left Main is free of obstructive disease Left Anterior Descending has a patent stent proximally, moderate disease in the midportion Left Circumflex has patent stent proximally, severe disease distally, successful primary stenting using skypoint 2.25 x 23 deployed under 12 marleny with excellent results. The first obtuse marginal branch has moderate stenosis Right Coronary Artery is moderate in size with moderate stenosis at the midportion, the right PDA has severe stenosis distally, very small artery LV Gram was not done, pressure was measured CONCLUSION: 1. Severe stenosis in the distal circumflex artery successful primary stenting using 2.25 mm x 23 mm skypoint stent expanded to 2.35 mm 2. Patent stent in the proximal circumflex artery with moderate stenosis in the first obtuse marginal branch 3. Patent stent in the proximal LAD with moderate stenosis in the mid LAD 4. Moderate stenosis in the mid right coronary artery with severe stenosis at the distal right PDA that is very small artery for intervention 4. Mildly elevated left ventricular end-diastolic pressure DISCUSSION AND RECOMMENDATION: Patient is allergic to aspirin, he was loaded with Plavix, received heparin, I will add Xarelto and evaluate tolerance and response Anesthesia Type: Conscious Sedation Estimated blood loss (mL): 25 ml Contrast Amount: 88 ml Total Radiation Dose: 1072 mGy Post-Procedure Diagnosis Post-operative diagnosis: Chest pain Coronary artery disease Hypertension Hyperlipidemia CROW KNIGHT MD Dec 29, 2020 16:29
[2020-12-29] MEDS ORDERED: PATIENT MAY USE OWN MEDS, ALL PO SCH (16:30)
[2020-12-29] MEDS ORDERED: RIVAROXABAN 15 MG TABLET (XARELTO) PO SCH (17:00)
--- NOTE | 2020-12-29 19:19 | Progress Note ---
Subjective Subjective/Events-last exam Patient with chest pain ON. Plan for cath today Review of Systems Pulmonary: Dyspnea Cardiovascular: Chest Pain; No: Palpitations, Edema Gastrointestinal: No: Nausea, Vomiting, Abdominal Pain, Diarrhea, Constipation Neurological: Weakness, Incoordination Focused Exam Time of Focused Exam: 11:00 Objective Exam Last Set of Vital Signs Vital Signs Date Time Temp Pulse Resp B/P (MAP) Pulse Ox O2 Delivery O2 Flow Rate FiO2 12/29/20 18:37 93 Nasal Cannula 5.00 12/29/20 18:15 80 22 125/117 (118) 12/29/20 16:24 36.0 12/25/20 20:00 40 Capillary Refill : Less Than 3 Seconds I&O Intake and Output 12/29/20 00:00 Intake Total 1980 ml Output Total 1275 ml Balance 705 ml Intake Oral 1980 ml Output Urine Total 1275 ml General: Alert, Oriented X3, Cooperative, No Acute Distress Lungs: Clear to Auscultation, Normal Air Movement Heart: Regular Rate, No Murmurs Abdomen: Normal Bowel Sounds, Soft, No Tenderness, No Masses Extremities: Other (1+ pitting edema bilaterally) Neuro: Normal Speech, Sensation Intact Results/Procedures Lab Laboratory Tests 12/28/20 20:23: Glucometer 114H 12/29/20 05:11: White Blood Count 8.1, Red Blood Count 3.44L, Hemoglobin 10.1L, Hematocrit 31L, Mean Corpuscular Volume 91, Mean Corpuscular Hemoglobin 29, Mean Corpuscular Hemoglobin Concent 32, Red Cell Distribution Width 13.2, Platelet Count 319, Mean Platelet Volume 9.5, Immature Granulocyte % (Auto) 1, Neutrophils (%) (Auto) 67, Lymphocytes (%) (Auto) 16, Monocytes (%) (Auto) 8, Eosinophils (%) (Auto) 8, Basophils (%) (Auto) 1, Neutrophils # (Auto) 5.4, Lymphocytes # (Auto) 1.3, Monocytes # (Auto) 0.7, Eosinophils # (Auto) 0.6H, Basophils # (Auto) 0.1, Immature Granulocyte # (Auto) 0.0, Sodium Level 137, Potassium Level 3.9, Chloride Level 102, Carbon Dioxide Level 24, Anion Gap 11, Blood Urea Nitrogen 15, Creatinine 1.14, Estimat Glomerular Filtration Rate 66, BUN/Creatinine Ratio 13, Glucose Level 127H, Calcium Level 8.3L, Corrected Calcium 9.4, Phosphorus Level 3.0, Magnesium Level 2.0, Total Bilirubin 0.2, Aspartate Amino Transf (AST/SGOT) 22, Alanine Aminotransferase (ALT/SGPT) 10, Alkaline Phosphatase 66, Total Protein 5.9L, Albumin 2.6L 12/29/20 11:08: Glucometer 112H Microbiology 12/22/20 Gram Stain - Final, Complete 12/22/20 Sputum Culture - Final, Complete Usual upper respiratory linnette YEAST 12/22/20 Blood Culture - Final, Complete No growth 12/22/20 Urine Culture - Final, Complete NO GROWTH Assessment/Plan Assessment/Plan (1) Acute and chronic respiratory failure with hypoxia Status: Acute Assessment & Plan: 12/26: Extubated yesterday, MAT protocol, continue to titrate oxygen as tolerated 12/27: No baseline oxygen requirement, continue to titrate as tolerated 12/28: Home oxygen testing in the AM, encourage IS, continue to titrate as tolerated, patient will need oxygen at baseline at home 12/29: Will need oxygen for home (2) Respiratory arrest Status: Resolved (3) COPD exacerbation Status: Acute Assessment & Plan: 12/26: Steroids/antibiotics (4) Insulin dependent diabetes mellitus with complications Status: Chronic Assessment & Plan: 12/26: A1c 10.0 (5) CAD (coronary artery disease) Status: Acute Assessment & Plan: 12/26: Cardiology consulted, appreciate recommendations 12/29: lab specialist today by Shannon Qualifiers: Qualified Codes: I25.10 - Atherosclerotic heart disease of [place] coronary artery without angina pectoris (6) Debility Status: Acute Assessment & Plan: PT/OT JOCELYN THOMPSON MD Dec 29, 2020 19:19
[2020-12-30] VITALS: BP 146/85
[2020-12-30] MEDS: NS IV 1000 ML 1,000 ML IV SCH ×3 (03:07→07:59)
[2020-12-30 04:00] VITALS: BP 127/85
[2020-12-30 06:34] LABS: BASOPHILS % (AUTO) 0 % (0-10); EOSINOPHILS % (AUTO) 0 % (0-10); HEMATOCRIT 31 % (40-54); HEMOGLOBIN 10.1 g/dL (13.3-17.7); LYMPHOCYTES # (AUTO) 0.8 10^3/uL (1.0-4.0); LYMPHOCYTES % (AUTO) 9 % (12-44); MEAN CORPUSCULAR HEMOGLOBIN 30 pg (25-34); MEAN CORPUSCULAR HGB CONC 33 g/dL (32-36); MEAN CORPUSCULAR VOLUME 90 fL (80-99); MEAN PLATELET VOLUME 9.3 fL (9.0-12.2); MONOCYTES # (AUTO) 0.4 10^3/uL (0.0-1.0); MONOCYTES % (AUTO) 4 % (0-12); NEUTROPHILS # (AUTO) 8.4 10^3/uL (1.8-7.8); NEUTROPHILS % (AUTO) 86 % (42-75); PLATELET COUNT 337 10^3/uL (130-400); WHITE BLOOD COUNT 9.8 10^3/uL (4.3-11.0)
[2020-12-30 06:39] LABS: ALBUMIN 2.7 GM/DL (3.2-4.5); POTASSIUM 4.8 MMOL/L (3.6-5.0)
[2020-12-30 06:40] LABS: CALCIUM 8.3 MG/DL (8.5-10.1)
[2020-12-30 06:41] LABS: TOTAL PROTEIN 6.1 GM/DL (6.4-8.2)
[2020-12-30 06:43] LABS: BILIRUBIN,TOTAL 0.2 MG/DL (0.1-1.0)
[2020-12-30 06:44] LABS: PHOSPHORUS 3.5 MG/DL (2.3-4.7)
[2020-12-30 06:45] LABS: CREATININE SERUM 1.3 MG/DL (0.60-1.30)
[2020-12-30 06:48] LABS: MAGNESIUM 2.2 MG/DL (1.6-2.4)
[2020-12-30] MEDS: metFORMIN 500 MG (GLUCOPHAGE) TAB PO SCH (07:11)
[2020-12-30] MEDS: RT-ALBUTEROL/IPRATROPIUM 3 ML (DUONEB) VIAL INH SCH (07:40)
[2020-12-30 07:46] VITALS: BP 133/82
[2020-12-30] MEDS: GLIMEPIRIDE 1 MG (AMARYL) TAB PO SCH (07:52)
[2020-12-30] MEDS: DULoxetine 30 MG (CYMBALTA) CAP PO SCH (07:52)
[2020-12-30] MEDS: PANTOPRAZOLE 40 MG (PROTONIX) VIAL IV SCH (07:52)
[2020-12-30] MEDS: inSUlin ASPART (NovoLOG) 1 UNIT/0.01 ML (CHARGE PER UNIT) SC SCH ×2 (07:53→12:40)
[2020-12-30] MEDS: LOSARTAN 100 MG (COZAAR) TABLET PO SCH (07:54)
[2020-12-30] MEDS: amLODIPine 10 MG (NORVASC) TAB PO SCH (07:54)
[2020-12-30] MEDS: ISOSORBIDE MONONITRATE 30 MG (IMDUR) TAB PO SCH (07:54)
[2020-12-30] MEDS: meTOprolol SUCCINATE 100 MG (TOPROL XL) TAB PO SCH (07:55)
[2020-12-30] MEDS: NYSTATIN CREAM (MYCOSTATIN) 30 GM TUBE TP SCH ×2 (07:55→12:41)
[2020-12-30] MEDS: KCL 10 MEQ TAB (MICRO K) PO SCH (07:55)
[2020-12-30] MEDS: MICONAZOLE 2% POWDER (DESENEX AF) 90 GM TOP SCH (07:56)
[2020-12-30 08:00] VITALS: BP_SYST 133; BP_DIAS 62; BP_DIAS 82
[2020-12-30] MEDS ORDERED: CLOPIDOGREL 75 MG (PLAVIX) TABLET PO SCH (09:00)
--- NOTE | 2020-12-30 10:22 | Cardiology Progress Note ---
Subjective Date Seen by Provider: Dec 30, 2020 Time Seen by Provider: 10:19 Subjective/Events-last exam Patient was seen at bedside, laying down comfortably, still having mild chronic chest pain Required higher dose of oxygen last night, back to 2 L nasal cannula at this time Review of Systems General: No Chills, No Night Sweats; Fatigue; No Malaise, No Appetite, No Other HEENT: No Head Aches, No Visual Changes, No Eye Pain, No Ear Pain, No Dysphasia, No Sinus Congestion, No Post Nasal Drip, No Sore Throat, No Other Pulmonary: Dyspnea; No Cough, No Pleuritic Chest Pain, No Other Cardiovascular: Edema; No: Chest Pain, Palpitations, Orthopnea, Paroxysmal Noc. Dyspnea, Lt Headedness, Other Focused Exam Time of Focused Exam: 11:00 Objective-Cardiology Exam Last Set of Vital Signs Vital Signs 12/30/20 07:46 FiO2 36 I&O Intake and Output 12/30/20 00:00 Intake Total 1000 ml Balance 1000 ml Intake Oral 1000 ml # Voids 6 # Bowel Movements 2 General: Alert, Oriented X3, Cooperative, No Acute Distress HEENT: Atraumatic, PERRLA Neck: Supple, No JVD, No Thyromegaly Lungs: Clear to Auscultation, Normal Air Movement Heart: Regular Rate, No Murmurs Abdomen: Normal Bowel Sounds, Soft, No Tenderness, No Masses Extremities: Other (1+ pitting edema bilaterally) Skin: No Rashes Neuro: Normal Speech, Sensation Intact Psych/Mental Status: Mental Status NL, Mood NL Results Lab Laboratory Tests 12/30/20 06:11 A/P-Cardiology Admission Diagnosis Acute respiratory failure CAD HTN DM Assessment/Plan Status post acute respiratory failure with flash pulmonary edema, better at this time. Echo 12/24/20: LVEF 60-65%, mild conc LVH, PASP 20-25 mmHg. Chest pain, chronic stable angina, still having mild chronic chest pain that has not changed. Coronary artery disease-underwent cardiac catheterization on December 09, 2017 revealing multivessel coronary artery disease with severe stenosis in the proximal circumflex artery with primary stenting using Rocío 3.012 mm expanded to 3.25 mm with excellent results. Severe stenosis in the mid right coronary artery with primary stenting using 2.512 mm Rocío expanded to 2.75 with excellent results. Mild to moderate disease in the proximal LAD, severe stenosis at the ostium of first diagonal artery that is very small artery. Most recent cardiac catheterization done February 04, 2019 revealed total occlusion of the left PDA off the circumflex artery, patent stent in the proximal circumflex. Patent stent in the midright coronary artery. Mild disease in the LAD. Cardiac catheterization was done on December 29, 2020 showing patent stent in the proximal circumflex, right coronary artery. Severe stenosis at the distal circumflex artery, primary stenting using 2.25 x 23 mm expanded to 2.35 mm with excellent results. Has severe stenosis/subtotal occlusion at the distal right posterior descending artery, very small artery not amendable to intervention. Mild to moderate disease in the LAD. Started on Plavix and Xarelto. 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 Mild bilateral carotid stenosis, ultrasound was done in December 2018, continue to monitor. Family history of heart disease History of psoriasis. Diabetes mellitus, admitted with DKA, has had previous hospitalizations for DKA. Management per medical services Obesity, BMI is 39, we discussed weight loss and exercise CROW KNIGHT MD Dec 30, 2020 10:22
[2020-12-30] MEDS ORDERED: PRD20T PO (11:52)
[2020-12-30] MEDS ORDERED: CLOP75TA28 PO (11:52)
[2020-12-30] MEDS ORDERED: ISOS30TA82 PO (11:52)
[2020-12-30] MEDS ORDERED: RIVA15TA2 PO (11:52)
[2020-12-30] MEDS ORDERED: NITR0.4T42 SL (11:52)
[2020-12-30] MEDS ORDERED: MTP100TCR PO (11:52)
--- NOTE | 2020-12-30 11:53 | Discharge Summary ---
Discharge [facility] Reconcile Patient Problems Problems Reviewed?: Yes Discharge Medications New, Converted or Re-Newed RX: Transmitted to Pharmacy New Medications: Prednisone (Prednisone) 20 Mg Tab 20 TAB PO DAILY, #11 TAB 2 tabs x 3 days then 1 tab x 3 days then 1/2 tab x 4 days Clopidogrel Bisulfate (Clopidogrel) 75 Mg Tablet 75 MG PO DAILY, #30 TAB Isosorbide Mononitrate (Isosorbide Mononitrate ER) 30 Mg Tab.er.24h 30 MG PO DAILY, #30 TAB Metoprolol Succinate (Metoprolol Succinate) 100 Mg Tab.er.24h 100 MG PO DAILY, #30 TAB Nitroglycerin (Nitroglycerin) 0.4 Mg Tab.subl 0 MG SL NEEDED PRN for CHEST PAIN, #3 TAB Rivaroxaban (Xarelto Tablet) 15 Mg Tablet 15 MG PO DAILY@1700, #30 TAB Continued Medications: Amlodipine Besylate (Amlodipine Besylate) 10 Mg Tablet 10 MG PO DAILY, TAB Atorvastatin Calcium (Lipitor) 40 Mg Tablet 40 MG PO HS, TAB Cyclobenzaprine HCl (Cyclobenzaprine HCl) 5 Mg Tablet 5 MG PO TID PRN for MUSCLE CRAMPS, TAB Duloxetine HCl (Duloxetine HCl) 60 Mg Capsule.dr 60 MG PO 0900,1700, CAP Furosemide (Furosemide) 40 Mg Tablet 40 MG PO DAILY, TAB Glimepiride (Amaryl) 1 Mg Tab 1 MG PO DAILY, TAB Insulin Aspart (Novolog Flexpen) 300 Units/3 Ml Solution 5 UNITS SQ TID, EA Insulin Detemir (Levemir Flextouch) 100 Unit/1 Ml Insuln.pen 15 UNIT SQ HS, EA Losartan Potassium (Losartan Potassium) 100 Mg Tablet 100 MG PO DAILY, TAB Mupirocin (Mupirocin) 22 Gm Oint...g. 1 APPLIC TP BID for 7 Days, EA FILLED 12-21-2020 #1/7 DAY SUPPLY Potassium Chloride (Potassium Chloride) 10 Meq Tab.er.prt 10 MEQ PO DAILY Sitagliptin Phos/Metformin HCl (Janumet 50-1,000 mg Tablet) 1 Each Tablet 1 EACH PO 0900,1700, TAB Tobramycin/Dexamethasone (Tobradex Eye Ointment) 3.5 Gm Oint 1 APPLIC OP TID for 7 Days, EA FILLED 12-21-2020 #1/7 DAY SUPPLY Discontinued Medications: Doxycycline Hyclate (Doxycycline Hyclate) 100 Mg Tablet 100 MG PO BID, TAB FILLED 12-21-2020 #07/12 DAY SUPPLY Metoprolol Tartrate (Metoprolol Tartrate) 50 Mg Tablet 50 MG PO 0900,1700, TAB Patient Instructions Goal/Follow Up Appt: F/u PCP in 1-2 weeks Activity & Diet Discharge Diet: Cardiac Diet Activity as Tolerated: Yes JOCELYN THOMPSON MD Dec 30, 2020 11:53
[2020-12-30 12:00] VITALS: BP 143/75
--- NOTE | 2020-12-30 12:10 | Discharge Summary ---
Diagnosis/Chief Complaint Date of Admission Dec 22, 2020 at 11:15 Date of Discharge Discharge Diagnosis Problems/Diagnosis: (1) Acute and chronic respiratory failure with hypoxia Assessment & Plan: 12/26: Extubated yesterday, MAT protocol, continue to titrate oxygen as tolerated 12/27: No baseline oxygen requirement, continue to titrate as tolerated 12/28: Home oxygen testing in the AM, encourage IS, continue to titrate as tolerated, patient will need oxygen at baseline at home 12/29: Will need oxygen for home Status: Acute (2) Respiratory arrest Status: Resolved Resolution Date/Time: 12/26/20 @ 20:36 (3) COPD exacerbation Assessment & Plan: 12/26: Steroids/antibiotics Status: Acute (4) Insulin dependent diabetes mellitus with complications Assessment & Plan: 12/26: A1c 10.0 Status: Chronic (5) CAD (coronary artery disease) Assessment & Plan: 12/26: Cardiology consulted, appreciate recommendations 12/29: phlebotomist medical lab assistant today by Shannon Qualifiers: Qualified Codes: I25.10 - Atherosclerotic heart disease of [place] coronary artery without angina pectoris Status: Acute (6) Debility Assessment & Plan: PT/OT Status: Acute Discharge Summary-Simple/Stand Consultations Discharge Physical Examination Allergies: Coded Allergies: aspirin (Verified Allergy, Severe, 12/10/17) egg (Verified Allergy, Intermediate, Vomiting, 03/21/20) Penicillins (Unverified Allergy, Unknown, 07/19/13) Sulfa (Sulfonamide Antibiotics) (Unverified Allergy, Unknown, 07/19/13) lactose (Unverified Allergy, Unknown, 12/10/17) CAUSES GAS lidocaine (Verified Allergy, Unknown, 01/06/16) peanut (Unverified Allergy, Unknown, air closes off, 07/19/13) strawberry (Unverified Allergy, Unknown, airway closes off, 07/19/13) codeine (Unverified Adverse Reaction, Mild, NAUSEA, 02/03/14) Uncoded Allergies: ENVIRONMENTAL (Allergy, Unknown, 07/19/13) raw egg whites (Adverse Reaction, Unknown, upset stomach, 12/09/17) Vitals & I&Os Vital Sign - Last 12Hours Date Time Temp Pulse Resp B/P (MAP) Pulse Ox O2 Delivery O2 Flow Rate FiO2 12/30/20 08:00 92 Nasal Cannula 2.00 12/30/20 08:00 36.1 78 16 133/82 (99) 12/30/20 07:46 36 Intake and Output 12/30/20 00:00 Intake Total 800 ml Balance 800 ml Hospital Course See final discharge diagnosis. Discharge Instructions to patient/family Please see electronic discharge instructions given to patient. Discharge Medications Reviewed and agree with Discharge Medication list on patient's Discharge Instruction sheet JOCELYN THOMPSON MD Dec 30, 2020 12:10
--- NOTE | 2020-12-30 13:47 | Occ Therapy Progress Note ---
Therapy Progress Note Pt transferred from 4th floor to [facility] following heart cath procedure. Due to transfer of care, OT will require new orders to continue treatment. Per nursing staff, pt is to discharge home today with home health. Please send new orders if pt does not discharge and requires further OT tx. DANIKA LOERA OT Dec 30, 2020 13:47
[2021-01-03] MEDS ORDERED: RIVA15TA2 PO (10:57)
[2021-01-03] MEDS ORDERED: ISOS30TA82 PO (10:57)
[2021-01-03] MEDS ORDERED: MTP100TCR PO (10:57)
[2021-01-03] MEDS ORDERED: CLOP75TA69 PO (10:57)
[2021-01-03] MEDS ORDERED: NITR0.4T39 SL (10:57)
[2021-01-09] MEDS ORDERED: EPIN0.3P3 IJ (11:41)
[2021-01-09] MEDS ORDERED: PANT40TA52 PO (11:41)
[2021-01-09] MEDS ORDERED: DICL100G13 TOP (11:41)
== END 2020-12-30 14:43 | disposition home health service (06) | DRG 853 ==
LOC: EDUNIT# 09:27 → ER 09:31 → ICU 11:15 → 4TH 12-27 11:28 → CSD 12-29 17:00
PROVIDERS: ADMIT Internal Medicine; ATTEND Family Medicine
PROC: 5A1945Z Respiratory Ventilation, 24-96 Consecutive Hours (ICD-10-PCS; 2020-12-22)
PROC: 0BH17EZ Insertion of Endotracheal Airway into Trachea, Via Natural or Artificial Opening (ICD-10-PCS; 2020-12-22)
PROC: 5A09357 Assistance with Respiratory Ventilation, Less than 24 Consecutive Hours, Continuous Positive Airway Pressure (ICD-10-PCS; 2020-12-25)
PROC: 027034Z Dilation of Coronary Artery, One Artery with Drug-eluting Intraluminal Device, Percutaneous Approach (ICD-10-PCS; principal; 2020-12-29)
PROC: 4A023N7 Measurement of Cardiac Sampling and Pressure, Left Heart, Percutaneous Approach (ICD-10-PCS; 2020-12-29)
PROC: B2111ZZ Fluoroscopy of Multiple Coronary Arteries using Low Osmolar Contrast (ICD-10-PCS; 2020-12-29)
DX: A41.9 Sepsis, unspecified organism (principal); J96.21 Acute and chronic respiratory failure with hypoxia; J96.02 Acute respiratory failure with hypercapnia; I50.31 Acute diastolic (congestive) heart failure; E11.10 Type 2 diabetes mellitus with ketoacidosis without coma; J44.1 Chronic obstructive pulmonary disease with (acute) exacerbation; I25.119 Atherosclerotic heart disease of native coronary artery with unspecified angina pectoris; R65.20 Severe sepsis without septic shock; Z20.822 Contact with and (suspected) exposure to COVID-19; L98.499 Non-pressure chronic ulcer of skin of other sites with unspecified severity; L03.012 Cellulitis of left finger; G47.33 Obstructive sleep apnea (adult) (pediatric); E78.00 Pure hypercholesterolemia, unspecified; E78.5 Hyperlipidemia, unspecified; I11.0 Hypertensive heart disease with heart failure; G62.9 Polyneuropathy, unspecified; K21.9 Gastro-esophageal reflux disease without esophagitis; Z95.5 Presence of coronary angioplasty implant and graft; F41.9 Anxiety disorder, unspecified; M19.91 Primary osteoarthritis, unspecified site; I25.82 Chronic total occlusion of coronary artery; I49.3 Ventricular premature depolarization; E66.9 Obesity, unspecified; I65.23 Occlusion and stenosis of bilateral carotid arteries; Z79.4 Long term (current) use of insulin; Z79.84 Long term (current) use of oral hypoglycemic drugs; Z82.49 Family history of ischemic heart disease and other diseases of the circulatory system; Z83.3 Family history of diabetes mellitus; Z68.38 Body mass index [BMI] 38.0-38.9, adult; Z88.6 Allergy status to analgesic agent; Z91.012 Allergy to eggs; Z91.010 Allergy to peanuts; Z88.0 Allergy status to penicillin; Z88.2 Allergy status to sulfonamides; Z91.018 Allergy to other foods
CPT/HCPCS: 31500; 36415; 36569; 36600; 51702; 70450; 71045; 76937; 80048; 80053; 80076; 80306; 80320; 81000; 82010; 82150; 82330; 82550; 82805; 82947; 83036; 83605; 83690; 83735; 83880; 84100; 84145; 84478; 84484; 85007; 85025; 85027; 85379; 85384; 85610; 85730; 86141; 86850; 86900; 86901; 87040; 87070; 87081; 87088; 87205; 87636; 93005; 93041; 93306; 93458; 94002; 94003; 94640; 94660; 94760; 94761; 94799; 96361; 96365; 96366; 96367; 96368; 96375; 99291

== ENCOUNTER 2020-12-31 15:46 | Inpatient (IN) | payer MEDICARE ==
[~2020-12-31] VITALS: Ht 182.8 cm; Wt 118.4 kg
[~2020-12-31 15:46] MED LIST changes: +CLOP75TA28 PO; +CYCL5TAB PO; +DOXY100T2 PO; +INSU100I14 SQ; +ISOS30TA82 PO; +MTP100TCR PO; +MUPI22OI2 TP; +PRD20T PO; +RIVA15TA2 PO; +TBDXOO OP
[2020-12-31 16:06] VITALS: BP 144/85
[2020-12-31 16:13] LABS: BASOPHILS # (AUTO) 0.1 10^3/uL (0.0-0.1); BASOPHILS % (AUTO) 1 % (0-10); EOSINOPHILS # (AUTO) 0.4 10^3/uL (0.0-0.3); EOSINOPHILS % (AUTO) 3 % (0-10); HEMATOCRIT 41 % (40-54); HEMOGLOBIN 12.6 g/dL (13.3-17.7); LYMPHOCYTES # (AUTO) 4.2 10^3/uL (1.0-4.0); LYMPHOCYTES % (AUTO) 26 % (12-44); MEAN CORPUSCULAR HEMOGLOBIN 29 pg (25-34); MEAN CORPUSCULAR HGB CONC 31 g/dL (32-36); MEAN CORPUSCULAR VOLUME 94 fL (80-99); MEAN PLATELET VOLUME 9.2 fL (9.0-12.2); MONOCYTES # (AUTO) 1.1 10^3/uL (0.0-1.0); MONOCYTES % (AUTO) 7 % (0-12); NEUTROPHILS # (AUTO) 9.3 10^3/uL (1.8-7.8); NEUTROPHILS % (AUTO) 59 % (42-75); PLATELET COUNT 533 10^3/uL (130-400); WHITE BLOOD COUNT 15.8 10^3/uL (4.3-11.0)
--- NOTE | 2020-12-31 16:14 | ED Neurological Problem ---
General Chief Complaint: Code Blue Stated Complaint: UNRESPONSIVE Source: EMS Exam Limitations: clinical condition History of Present Illness Date Seen by Provider: Dec 31, 2020 Time Seen by Provider: 15:45 Initial Comments Patient is a 60-year-old male who presents to the emergency department unresponsive. EMS reports they were called for respiratory distress. The last thing the patient said to fire/EMS was "I am coding". Patient was recently in the hospital with respiratory failure, had heart cath 2 days ago with a stent placed.. EMS reports that patient did not receive any sedation prior to arrival. He had an LMA placed and was being bagged on arrival. Patient was absolutely unresponsive. Right pupil was dilated, 4 to 5 mm it is however briskly reactive. Left pupil was smaller at 2-3 also reactive. Patient was making respiratory effort. No obvious outward/external signs of trauma. Patient was hypoxic with the LMA in place at 87%. Airway quickly established with 20 of etomidate, 50 rocuronium, direct laryngoscopy used to visualize the cords, 8.0 ET tube was placed successfully with bilateral equal breath sounds, positive change on CO2 detector, fog in the ET tube. Patient had peripheral IVs placed, taken to CAT scan. Orders for Versed and fentanyl drips. EKG obtained that showed sinus rhythm at 95 bpm with no obvious ST segment changes elevation or depression. A PVC is noted. Patient is unable to participate in the HPI, review of systems, past medical family or social history. Timing/Duration: 1/2 hour Severity: severe Allergies and Home Medications Allergies Coded Allergies: aspirin (Verified Allergy, Severe, 12/10/17) egg (Verified Allergy, Intermediate, Vomiting, 03/21/20) Penicillins (Unverified Allergy, Unknown, 07/19/13) Sulfa (Sulfonamide Antibiotics) (Unverified Allergy, Unknown, 07/19/13) lactose (Unverified Allergy, Unknown, 12/10/17) CAUSES GAS lidocaine (Verified Allergy, Unknown, 01/06/16) peanut (Unverified Allergy, Unknown, air closes off, 07/19/13) strawberry (Unverified Allergy, Unknown, airway closes off, 07/19/13) codeine (Unverified Adverse Reaction, Mild, NAUSEA, 02/03/14) Uncoded Allergies: ENVIRONMENTAL (Allergy, Unknown, 07/19/13) raw egg whites (Adverse Reaction, Unknown, upset stomach, 12/09/17) Patient Home Medication List Home Medication List Reviewed: Yes Amlodipine Besylate (Amlodipine Besylate) 10 Mg Tablet, 10 MG PO DAILY, (Reported) Entered as Reported by: DEDRICK CARPENTER on 02/04/19 0837 Atorvastatin Calcium (Lipitor) 40 Mg Tablet, 40 MG PO HS, (Reported) Entered as Reported by: DEDRICK CARPENTER on 02/04/19 0837 Clopidogrel Bisulfate (Clopidogrel) 75 Mg Tablet, 75 MG PO DAILY Prescribed by: JOCELYN THOMPSON on 12/30/20 1152 Cyclobenzaprine HCl (Cyclobenzaprine HCl) 5 Mg Tablet, 5 MG PO TID PRN for MUSCLE CRAMPS, (Reported) Entered as Reported by: DEDRICK CARPENTER on 12/23/20 1515 Duloxetine HCl (Duloxetine HCl) 60 Mg Capsule.dr, 60 MG PO 0900,1700, (Reported) Entered as Reported by: BILL CARIAS on 03/21/20 1545 Furosemide (Furosemide) 40 Mg Tablet, 40 MG PO DAILY, (Reported) Entered as Reported by: DEDRICK CARPENTER on 05/24/20 1028 Glimepiride (Amaryl) 1 Mg Tab, 1 MG PO DAILY, (Reported) Entered as Reported by: DEDRICK CARPENTER on 02/04/19 0837 Insulin Aspart (Novolog Flexpen) 300 Units/3 Ml Solution, 5 UNITS SQ TID, ( Reported) Entered as Reported by: DEDRICK CARPENTER on 12/23/20 1515 Insulin Detemir (Levemir Flextouch) 100 Unit/1 Ml Insuln.pen, 15 UNIT SQ HS, (Reported) Entered as Reported by: DEDRICK CARPENTER on 02/04/19 0910 Isosorbide Mononitrate (Isosorbide Mononitrate ER) 30 Mg Tab.er.24h, 30 MG PO DAILY Prescribed by: JOCELYN THOMPSON on 12/30/20 1152 Losartan Potassium (Losartan Potassium) 100 Mg Tablet, 100 MG PO DAILY, (Reported) Entered as Reported by: DEDRICK CARPENTER on 11/11/19 1648 Metoprolol Succinate (Metoprolol Succinate) 100 Mg Tab.er.24h, 100 MG PO DAILY Prescribed by: JOCELYN THOMPSON on 12/30/20 1152 Mupirocin (Mupirocin) 22 Gm Oint...g., 1 APPLIC TP BID, (Reported) Entered as Reported by: DEDRICK CARPENTER on 12/23/20 1515 Nitroglycerin (Nitroglycerin) 0.4 Mg Tab.subl, 0 MG SL NEEDED PRN for CHEST PAIN Prescribed by: JOCELYN THOMPSON on 12/30/20 1152 Potassium Chloride (Potassium Chloride) 10 Meq Tab.er.prt, 10 MEQ PO DAILY, (Reported) Entered as Reported by: BILL CRAIAS on 03/21/20 1545 Prednisone (Prednisone) 20 Mg Tab, 20 TAB PO DAILY Prescribed by: JOCELYN THOMPSON on 12/30/20 1152 Rivaroxaban (Xarelto Tablet) 15 Mg Tablet, 15 MG PO DAILY@1700 Prescribed by: JOCELYN THOMPSON on 12/30/20 1152 Sitagliptin Phos/Metformin HCl (Janumet 50-1,000 mg Tablet) 1 Each Tablet, 1 EACH PO 0900,1700, (Reported) Entered as Reported by: DEDRICK CARPENTER on 02/04/19 0822 Tobramycin/Dexamethasone (Tobradex Eye Ointment) 3.5 Gm Oint, 1 APPLIC OP TID, (Reported) Entered as Reported by: DEDRICK CARPENTER on 12/23/20 1515 Discontinued Medications Doxycycline Hyclate (Doxycycline Hyclate) 100 Mg Tablet, 100 MG PO BID, (Reported) Entered as Reported by: DEDRICK CARPENTER on 12/23/20 1515 Metoprolol Tartrate (Metoprolol Tartrate) 50 Mg Tablet, 50 MG PO 0900,1700, (Reported) Entered as Reported by: DEDRICK CARPENTER on 11/11/19 1648 Review of Systems Review of Systems Constitutional: see HPI Patient unable to participate in review of systems, past medical family or social history secondary to clinical condition. Past Jlhaxfu-Muuupi-Sakkts Hx Immunizations Up To Date Tetanus Booster (TDap): Unknown First/Initial COVID19 Vaccinat: 05/18/20 Second COVID19 Vaccination Jose: 05/18/20 Third COVID19 Vaccination Date: 05/18/20 Seasonal Allergies Seasonal Allergies: Yes Past Medical History Surgeries: Yes (CARPAL TUNNEL RELASE SX, LEFT HAND SURGERY, L FOOT, EGD/COLONOSCOPY) Cardiac, Coronary Stent, Gallbladder, Orthopedic, Tonsillectomy Respiratory: Yes (RLL PUL. NODULE--FOLLOWED EVERY 6 MONTHS;INTUBATED 2018/PULM EDEMA/ARF ) Asthma, Sleep Apnea Currently Using CPAP: Yes Currently Using BIPAP: Yes Cardiac: Yes (CAD--STENTS X 2; MR/TR) Coronary Artery Disease, High Cholesterol, Hypertension, Irregular Heartbeat, Valvular Heart Disease Neurological: Yes Neuropathy Reproductive Disorders: No Sexually Transmitted Disease: No Genitourinary: No Gastrointestinal: Yes Gastroesophageal Reflux, Polyps, Hiatal Hernia, Ulcer Musculoskeletal: Yes (BILAT CARPAL TUNNEL SURG;L HAND SURG; L FOOT SURG) Arthritis Endocrine: No Diabetes, Insulin dep HEENT: No Loss of Vision: Denies Hearing Impairment: Denies Cancer: No Psychosocial: Yes Anxiety Integumentary: Yes Psoriasis Blood Disorders: No Adverse Reaction/Blood Tranf: No Family Medical History Congestive heart failure 19 MOTHER Family history: Arthritis 19 FATHER 19 MOTHER Family history: Cardiovascular disease 19 FATHER 19 MOTHER Family history: Diabetes mellitus 19 FATHER Family history: Glaucoma 19 MOTHER Family history: Hypertension 19 FATHER 19 MOTHER Family history: Osteoporosis 19 MOTHER Hearing loss 19 MOTHER Heart disease 19 FATHER 19 MOTHER Myocardial infarction 19 FATHER 19 MOTHER (DBL BYPASS) Stroke 19 MOTHER (MICRO STROKES) No Family History of: Abdominal aortic aneurysm Sony's disease Alcoholism Aphasia Cancer Cancer of colon Cataract Chest pain Congenital heart disease Cystic fibrosis Dementia Dysphagia Family history: Allergy Family history: Alzheimer's disease Family history: Asthma Family history: Breast disease Family history: Coronary thrombosis Family history: Gastrointestinal disease Family history: Thyroid disorder Headache Hereditary disease History of - anemia History of - disorder History of - respiratory disease History of drug abuse Human immunodeficiency virus (HIV) seropositivity Hypercholesterolemia Infertile Kidney disease Malignant neoplasm of lung Parkinson's disease Prostate cancer Psychotic disorder Seizure disorder Tuberculosis Visual impairment Heart Disease, Diabetes, Hypertension PAST SURGICAL HISTORY: -CARDIAC CATHS--STENTS X 2 IN 2018. LAST CATH 02/04/19--NO INTERVENTION. HAD PATENT STENT TO LEFT CIRCUMFLEX, WITH COMPLETE OCCLUSION OF LEFT PDA; PATENT STENT TO RCA; MILD DISEASE IN OTHER VESSELS -APPENDECTOMY -EGD'S AND COLONOSCOPIES WITH POLYPECTOMY -BILATERAL CARPAL TUNNEL SURGERY -LEFT HAND SURGERY -LEFT FOOT SURGERY Physical Exam Vital Signs Vital Signs - First Documented 12/31/20 12/31/20 15:46 16:06 Temp 36.4 Pulse 107 Resp 24 B/P (MAP) 148/100 (116) Pulse Ox 75 O2 Delivery Ambu Bag FiO2 100 Capillary Refill : Height, Weight, BMI Height: 5'9.00" Weight: 247lbs. 7.0oz. 112.901503by; 32.00 BMI Method:Stated General Appearance: WD/WN, severe distress HEENT: pharynx normal, other (Pupils unequal, right pupil 4 to 5 mm, left pupil 2-3, both briskly reactive) Neck: normal inspection Respiratory: other (Coarse bilateral breath sounds auscultated while patient is being bagged) Cardiovascular: regular rate, rhythm Gastrointestinal: soft, distended Extremities: normal inspection (Intraosseous line noted in the left proximal tibia) Neurologic/Psychiatric: other (GCS of 3, patient is unresponsive) Skin: normal color, warm/dry Procedures/Interventions Date of ETT Placement: Dec 22, 2020 Time of ETT Placement: 937 Intubation Method: orotracheal Tube Size: 8.0 Medications: Etomidate, Rocuronium Positive End Tide CO2: Yes Breath Sounds after Intubation: bilateral-equal Intubation Complications: no complications Post Intubation Xray: Yes Flash pulmonary edema with ET tube sitting just above the anthony Progress/Results/Core Measures Results/Orders Lab Results Laboratory Tests Test 12/31/20 15:51 12/31/20 15:58 12/31/20 16:34 Range/Units White Blood Count 15.8 H 4.3-11.0 10^3/uL Red Blood Count 4.35 4.30-5.52 10^6/uL Hemoglobin 12.6 #L 13.3-17.7 g/dL Hematocrit 41 40-54 % Mean Corpuscular Volume 94 80-99 fL Mean Corpuscular Hemoglobin 29 25-34 pg Mean Corpuscular Hemoglobin Concent 31 L 32-36 g/dL Red Cell Distribution Width 13.5 10.0-14.5 % Platelet Count 533 H 130-400 10^3/uL Mean Platelet Volume 9.2 9.0-12.2 fL Immature Granulocyte % (Auto) 4 % Neutrophils (%) (Auto) 59 42-75 % Lymphocytes (%) (Auto) 26 12-44 % Monocytes (%) (Auto) 7 0-12 % Eosinophils (%) (Auto) 3 0-10 % Basophils (%) (Auto) 1 0-10 % Neutrophils # (Auto) 9.3 H 1.8-7.8 10^3/uL Lymphocytes # (Auto) 4.2 H 1.0-4.0 10^3/uL Monocytes # (Auto) 1.1 H 0.0-1.0 10^3/uL Eosinophils # (Auto) 0.4 H 0.0-0.3 10^3/uL Basophils # (Auto) 0.1 0.0-0.1 10^3/uL Immature Granulocyte # (Auto) 0.7 H 0.0-0.1 10^3/uL Neutrophils % (Manual) 56 % Lymphocytes % (Manual) 26 % Monocytes % (Manual) 6 % Eosinophils % (Manual) 2 % Basophils % (Manual) 1 % Band Neutrophils 2 % Atypical Lymphocytes 7 % Toxic Granulation 2+ Polychromasia SLIGHT Anisocytosis SLIGHT Prothrombin Time 14.0 12.2-14.7 SEC INR Comment 1.0 0.8-1.4 Activated Partial Thromboplast Time 37 H 24-35 SEC Sodium Level 140 135-145 MMOL/L Potassium Level 4.3 3.6-5.0 MMOL/L Chloride Level 105 98-107 MMOL/L Carbon Dioxide Level 20 L 21-32 MMOL/L Anion Gap 15 H 5-14 MMOL/L Blood Urea Nitrogen 18 7-18 MG/DL Creatinine 1.29 0.60-1.30 MG/DL Estimat Glomerular Filtration Rate 57 BUN/Creatinine Ratio 14 Glucose Level 266 H 70-105 MG/DL Calcium Level 9.0 8.5-10.1 MG/DL Corrected Calcium 9.5 8.5-10.1 MG/DL Total Bilirubin 0.3 0.1-1.0 MG/DL Aspartate Amino Transf (AST/SGOT) 33 5-34 U/L Alanine Aminotransferase (ALT/SGPT) 22 0-55 U/L Alkaline Phosphatase 91 40-136 U/L Troponin I < 0.028 <0.028 NG/ML B-Type Natriuretic Peptide 118.7 H <100.0 PG/ML Total Protein 7.5 6.4-8.2 GM/DL Albumin 3.4 3.2-4.5 GM/DL Serum Alcohol < 10 <10 MG/DL Urine Color YELLOW Urine Clarity CLEAR Urine pH 6.0 5-9 Urine Specific [place] 1.020 1.016-1.022 Urine Protein 2+ H NEGATIVE Urine Glucose (UA) NEGATIVE NEGATIVE Urine Ketones NEGATIVE NEGATIVE Urine Nitrite NEGATIVE NEGATIVE Urine Bilirubin NEGATIVE NEGATIVE Urine Urobilinogen 0.2 < = 1.0 MG/DL Urine Leukocyte Esterase NEGATIVE NEGATIVE Urine RBC (Auto) 1+ H NEGATIVE Urine RBC 0-2 /HPF Urine WBC 0-2 /HPF Urine Squamous Epithelial Cells 0-2 /HPF Urine Renal Epithelial Cells 0-2 /HPF Urine Crystals PRESENT H /LPF Urine Amorphous Sediment FEW [place]ANE[place] URATES H /LPF Urine Bacteria TRACE /HPF Urine Casts NONE /LPF Urine Mucus NEGATIVE /LPF Urine Other MOD SPERM H /HPF Urine Culture Indicated NO Urine Opiates Screen NEGATIVE NEGATIVE Urine Oxycodone Screen NEGATIVE NEGATIVE Urine Methadone Screen NEGATIVE NEGATIVE Urine Propoxyphene Screen NEGATIVE NEGATIVE Urine Barbiturates Screen NEGATIVE NEGATIVE Ur Tricyclic Antidepressants Screen NEGATIVE NEGATIVE Urine Phencyclidine Screen NEGATIVE NEGATIVE Urine Amphetamines Screen NEGATIVE NEGATIVE Urine Methamphetamines Screen NEGATIVE NEGATIVE Urine Benzodiazepines Screen NEGATIVE NEGATIVE Urine Cocaine Screen NEGATIVE NEGATIVE Urine Cannabinoids Screen NEGATIVE NEGATIVE Blood Gas Puncture Site RT RAD Blood Gas Patient Temperature 36.4 Arterial Blood pH 7.18 *L 7.37-7.43 Arterial Blood Partial Pressure CO2 70 H 35-45 MMHG Arterial Blood Partial Pressure O2 89 79-93 MMHG Arterial Blood HCO3 25 23-27 MMOL/L Arterial Blood Total CO2 27.5 21.0-31.0 MMOL/L Arterial Blood Oxygen Saturation 95 94-100 % Arterial Blood Base Excess -2.3 -2.5-2.5 MMOL/L Kush Test YES-POS Blood Gas Ventilator Setting YES Blood Gas Inspired Oxygen 100% My Orders Orders - RAHUL MENDOSA MD Ct Head Wo-R/O Stroke (12/31/20 ) Ed Iv/Invasive Line Start (12/31/20 16:05) Chest 1 View, Ap/Pa Only (12/31/20 16:05) Ekg Tracing (12/31/20 16:05) Cbc With Automated Diff (12/31/20 16:05) Comprehensive Metabolic Panel (12/31/20 16:05) Ua Culture If Indicated (12/31/20 16:05) Protime With Inr (12/31/20 16:05) Partial Thromboplastin Time (12/31/20 16:05) Drug Screen Stat (Urine) (12/31/20 16:05) Alcohol (12/31/20 16:05) Midazolam Drip Pre-Mix (Midazolam Drip P (12/31/20 16:15) Fentanyl Drip Pre-Mix (Fentanyl Drip Pre (12/31/20 16:15) Midazolam Injection (Versed Injection) (12/31/20 16:15) Manual Differential (12/31/20 15:51) Arterial Blood Gas (12/31/20 16:35) Furosemide Injection (Lasix Injection) (12/31/20 17:00) Sputum Culture (12/31/20 16:05) Arterial Blood Draw (12/31/20 ) BNP (12/31/20 17:02) Troponin I (12/31/20 17:10) Furosemide Injection (Lasix Injection) (12/31/20 17:11) Ventilator Settings Order (12/31/20 17:17) Medications Given in ED Vital Signs/I&O 12/31/20 12/31/20 12/31/20 12/31/20 15:46 16:06 17:00 17:17 Temp 36.4 Pulse 107 96 96 Resp 24 16 16 B/P (MAP) 148/100 (116) 144/85 Pulse Ox 75 90 O2 Delivery Ambu Bag FiO2 100 80 01/01/21 00:00 Intake Total 0 ml Balance 0 ml Admisison Planning May Need Admission (Planning): 16:18 Progress Progress Note : Time: 17:13 Progress Note Patient's blood gas shows a pH of 7.13, will increase his rate to 24 at this time. Current vent settings tidal volume of 450, FiO2 decreased to 80%, rate at 24. End-tidal is reading at 35 Patient currently sedated on Versed and fentanyl Initial ECG Impression Date: Dec 31, 2020 Initial ECG Impression Time: 16:02 Initial ECG Rate: 95 Initial ECG Rhythm: Normal Sinus Initial ECG Intervals [place] interval 157 QRS 99 QTc 526 Comment PVC noted, QT prolongation at 526, no ST segment elevation or depression is noted Diagnostic Imaging Diagonstic Imaging: Xray, CT Comments [facility] [place], [place] NAME: S[facility]HIEDAREN [facility] REC#: [id number] PT STATUS: REG ER : 1960 PHYSICIAN: RAHUL MENDOSA MD ADMIT DATE: 12/31/20/ER Draft Date of Exam:12/31/20 CT HEAD WO-R/O STROKE PROCEDURE: CT head w/o r/o stroke. TECHNIQUE: Multiple contiguous axial images were obtained through the brain without the use of intravenous contrast. Auto Exposure Controls were utilized during the CT exam to meet ALARA standards for radiation dose reduction. INDICATION: Unresponsive. COMPARISON: Head CT of 12/22/2020. FINDINGS: There is no intracerebral hemorrhage. There is no hydrocephalus. There is no sulcal effacement. There was no focal or generalized cerebral edema. There is no evidence for an elevation of the intracerebral pressures. The beltran-white matter differentiations are maintained. The basilar cisterns are patent. No mass or mass effect. There is no hemorrhage. There are no abnormal extra-axial fluid collections. Orbits and calvarium are unremarkable. There is slight membrane thickening in the frontal sinuses. No paranasal sinus air-fluid level. The remaining paranasal sinuses, as well as mastoids, are clear. IMPRESSION: No hemorrhage, edema or acute appearing intracerebral abnormalities. Improvements in now trace paranasal sinus membrane disease without air-fluid level. Dictated on workstation # [id number] Dict: 12/31/20 1625 Trans: 12/31/20 1630 [facility] [id number] Interpreted by: ETELVINA SAHA Electronically signed by: [facility] [place] NAME: DAREN BARRIOS [place] [facility] REC#: [id number] PT STATUS: REG ER : 1960 PHYSICIAN: RAHUL MENDOSA MD ADMIT DATE: 12/31/20/ER Draft Date of Exam:12/31/20 CHEST 1 VIEW, AP/PA ONLY INDICATION: STROKE protocol. TIME OF EXAM: 4:29 PM. COMPARISON: Correlation is made with prior chest from 12/25/2020. FINDINGS: ET tube has tip above the anthony. NG tube passes below the diaphragm. Extensive bilateral airspace pulmonary infiltrates are noted which could represent pulmonary edema. External pacer overlies the right chest. There is no effusion or pneumothorax. IMPRESSION: Extensive airspace pulmonary infiltrates have developed throughout both lungs, suggestive of either alveolar pulmonary edema or pneumonia. Dictated on workstation # [id number] Dict: 12/31/20 1627 Trans: 12/31/20 1631 [facility] [id number] Interpreted by: SHRADDHA ROBERTS MD Electronically signed by: Critical Care Note Critical Care Start Time: 15:45 Stop Time: 17:11 Total Time (minutes) Critical care time 40 minutes in the evaluation and management of this patient with flash pulmonary edema, respiratory distress/failure. Time includes initial evaluation and management, review of laboratory studies and imaging studies, review of the patient's medical record, diuresis, discussion with cardiology, admitting provider and clock repair technician/eICU time does not include that spent in procedures, intubation Departure Communication (Admissions) Time/Spoke to Admitting Phy: 17:[address] Fenton, antoni EICU consult Time/Spoke to Consulting Phy: 17:[address] Ortega; will do Lasix 40mg BID and he will see 1710 Discussed with eICU Impression Primary Impression: RESPIRATORY FAILURE, UNSP, UNSP W HYPOXIA OR HYPERCAPNIA Additional Impression: Flash pulmonary edema Disposition: ADMITTED INPATIENT Condition: Critical Admissions Decision to Admit Reason: Admit from ER (General) Decision to Admit/Date: Dec 31, 2020 Time/Decision to Admit Time: 16:19 Departure-Patient Inst. Referrals: KATE CORONADO MD (PCP/Family) Primary Care Physician RAHUL MENDOSA MD Dec 31, 2020 16:14
[2020-12-31 16:15] LABS: BILIRUBIN,URINE NEGATIVE (NEGATIVE); CLARITY,URINE CLEAR; COLOR,URINE YELLOW; GLUCOSE, URINE (UA) NEGATIVE (NEGATIVE); KETONES,URINE NEGATIVE (NEGATIVE); LEUKOCYTE ESTERASE ,URINE NEGATIVE (NEGATIVE); NITRITE,URINE NEGATIVE (NEGATIVE); PROTEIN,URINE 2+ (NEGATIVE)
[2020-12-31] MEDS ORDERED: fentaNYL DRIP PRE-MIX 250 ML IV SCH (16:15)
[2020-12-31] MEDS ORDERED: MIDAZOLAM 5 MG/5 ML (VERSED) VIAL IVP ONE (16:15)
[2020-12-31] MEDS ORDERED: MIDAZOLAM DRIP PRE-MIX 100 ML IV SCH (16:15)
[2020-12-31 16:18] LABS: ALBUMIN 3.4 GM/DL (3.2-4.5)
[2020-12-31 16:19] LABS: CHLORIDE 105 MMOL/L (98-107); POTASSIUM 4.3 MMOL/L (3.6-5.0); SODIUM 140 MMOL/L (135-145)
[2020-12-31 16:21] LABS: GLUCOSE 266 MG/DL (70-105); TOTAL PROTEIN 7.5 GM/DL (6.4-8.2)
[2020-12-31 16:22] LABS: CARBON DIOXIDE 20 MMOL/L (21-32)
[2020-12-31 16:23] LABS: BILIRUBIN,TOTAL 0.3 MG/DL (0.1-1.0)
[2020-12-31 16:23] LABS: BACTERIA,URINE TRACE /HPF; RBC,URINE 0-2 /HPF; RENAL EPITHELIAL CELLS,URINE 0-2 /HPF; SQUAMOUS EPITHELIAL CELL,UR 0-2 /HPF; WBC,URINE 0-2 /HPF
[2020-12-31 16:24] LABS: ALKALINE PHOSPHATASE 91 U/L (40-136)
[2020-12-31 16:24] LABS: AMORPHOUS SEDIMENT,UR FEW AMOR URATES /LPF; URINE OTHER MOD SPERM /HPF
[2020-12-31 16:25] LABS: CREATININE SERUM 1.29 MG/DL (0.60-1.30); GFR ESTIMATED 57
[2020-12-31 16:25] LABS: AMPHETAMINE SCREEN, URINE NEGATIVE (NEGATIVE); BARBITURATE SCREEN URINE NEGATIVE (NEGATIVE); BENZODIAZEPINES SCREEN URINE NEGATIVE (NEGATIVE); CANNABINOID SCREEN, URINE NEGATIVE (NEGATIVE); COCAINE SCREEN URINE NEGATIVE (NEGATIVE); METHADONE STAT NEGATIVE (NEGATIVE); METHAMPHETAMINE SCREEN URINE S NEGATIVE (NEGATIVE); OPIATE SCREEN URINE NEGATIVE (NEGATIVE); OXYCODONE STAT NEGATIVE (NEGATIVE); PROPOXYPHENE STAT NEGATIVE (NEGATIVE); TRICYCLIC ANTIDEPRESSANTS SCRE NEGATIVE (NEGATIVE)
[2020-12-31 16:26] LABS: BUN/CREATININE RATIO 14
[2020-12-31 16:28] LABS: ALANINE AMINOTRANSFERASE 22 U/L (0-55)
--- NOTE | 2020-12-31 16:30 | Diagnostic Imaging Report ---
PROCEDURE: CT head w/o r/o stroke. TECHNIQUE: Multiple contiguous axial images were obtained through the brain without the use of intravenous contrast. Auto Exposure Controls were utilized during the CT exam to meet ALARA standards for radiation dose reduction. INDICATION: Unresponsive. COMPARISON: Head CT of 12/22/2020. FINDINGS: There is no intracerebral hemorrhage. There is no hydrocephalus. There is no sulcal effacement. There was no focal or generalized cerebral edema. There is no evidence for an elevation of the intracerebral pressures. The beltran-white matter differentiations are maintained. The basilar cisterns are patent. No mass or mass effect. There is no hemorrhage. There are no abnormal extra-axial fluid collections. Orbits and calvarium are unremarkable. There is slight membrane thickening in the frontal sinuses. No paranasal sinus air-fluid level. The remaining paranasal sinuses, as well as mastoids, are clear. IMPRESSION: No hemorrhage, edema or acute appearing intracerebral abnormalities. Improvements in now trace paranasal sinus membrane disease without air-fluid level. Dictated by: Dictated on workstation # [id number]
--- NOTE | 2020-12-31 16:31 | Diagnostic Imaging Report ---
INDICATION: STROKE protocol. TIME OF EXAM: 4:29 PM. COMPARISON: Correlation is made with prior chest from 12/25/2020. FINDINGS: ET tube has tip above the anthony. NG tube passes below the diaphragm. Extensive bilateral airspace pulmonary infiltrates are noted which could represent pulmonary edema. External pacer overlies the right chest. There is no effusion or pneumothorax. IMPRESSION: Extensive airspace pulmonary infiltrates have developed throughout both lungs, suggestive of either alveolar pulmonary edema or pneumonia. Dictated by: Dictated on workstation # [id number]
[2020-12-31 16:41] LABS: ABG BASE EXCESS -2.3 MMOL/L (-2.5-2.5); ABG OXYGEN SATURATION 95 % (94-100); ABG PCO2 70 MMHG (35-45); ABG PO2 89 MMHG (79-93); ABG TCO2 27.5 MMOL/L (21.0-31.0)
[2020-12-31 16:43] LABS: ATYPICAL LYMPHOCYTES 7 %; BAND NEUTROPHILS 2 %; BASOPHILS % (MANUAL) 1 %; EOSINOPHILS % (MANUAL) 2 %; LYMPHOCYTES % (MANUAL) 26 %; MONOCYTES % (MANUAL) 6 %; NEUTROPHILS % (MANUAL) 56 %
[2020-12-31 16:44] LABS: ANISOCYTOSIS SLIGHT; POLYCHROMASIA SLIGHT; TOXIC GRANULATION/VACUOLAZATIO 2+
[2020-12-31 16:44] LABS: ABG PH 7.18 (7.37-7.43); ALLENS TEST YES-POS; INSPIRED O2 100%; PATIENT TEMP 36.4; VENTILATOR YES
[2020-12-31] MEDS ORDERED: FUROSEMIDE 40 MG/4 ML INJ (LASIX) IVP ONE (17:00)
[2020-12-31] MEDS ORDERED: FUROSEMIDE 40 MG/4 ML INJ (LASIX) ONE (17:11)
[2020-12-31] MEDS ORDERED: FUROSEMIDE INJECTION 120 MG in D5W 100 ML IVPB 108 ML IV SCH (17:30)
[2020-12-31 18:30] LABS: ABG BASE EXCESS -0.8 MMOL/L (-2.5-2.5); ABG OXYGEN SATURATION 92 % (94-100); ABG PCO2 50 MMHG (35-45); ABG PO2 64 MMHG (79-93); ABG TCO2 26.3 MMOL/L (21.0-31.0)
[2020-12-31 18:33] LABS: ABG PH 7.31 (7.37-7.43)
[2020-12-31 18:34] LABS: INSPIRED O2 80%; PATIENT TEMP 36.4; VENTILATOR YES
--- NOTE | 2020-12-31 18:42 | Tele-ICU Consult ---
History of Present Illness History of Present Illness Date Seen by Provider: Dec 31, 2020 Time Seen by Provider: 18:41 Date of Admission 12/31/20 History of Present Illness Is a 77-year-old male with past medical history of coronary artery disease who was recently hospitalized with acute pulmonary edema and intubated. Subsequently he is extubated and underwent cardiac catheterization with stenting of distal circumflex artery and subsequently discharged on 12/29/2020. Today he presented to the emergency room with a complaint of severe shortness of breath and he was in no respiratory distress he is intubated and put on mechanical ventilation. Chest x-ray showed acute pulmonary edema changes suggestive of her flash pulmonary edema. He was given IV Lasix in the emergency room and a in the emergency room physician called me for consultation and I have discussed with t he patient condition with the emergency room physician and subsequently I made a video visit in the ICU and evaluated to some extent. I have reviewed his electronic medical records. However a detailed history could not be obtained as patient is intubated. Reviewed with research agricultural engineer and ER physician Allergies and Home Medications Allergies Coded Allergies: aspirin (Verified Allergy, Severe, 12/10/17) egg (Verified Allergy, Intermediate, Vomiting, 03/21/20) Penicillins (Unverified Allergy, Unknown, 07/19/13) Sulfa (Sulfonamide Antibiotics) (Unverified Allergy, Unknown, 07/19/13) lactose (Unverified Allergy, Unknown, 12/10/17) CAUSES GAS lidocaine (Verified Allergy, Unknown, 01/06/16) peanut (Unverified Allergy, Unknown, air closes off, 07/19/13) strawberry (Unverified Allergy, Unknown, airway closes off, 07/19/13) codeine (Unverified Adverse Reaction, Mild, NAUSEA, 02/03/14) Uncoded Allergies: ENVIRONMENTAL (Allergy, Unknown, 07/19/13) raw egg whites (Adverse Reaction, Unknown, upset stomach, 12/09/17) Home Medications Amlodipine Besylate 10 Mg Tablet, 10 MG PO DAILY, (Reported) Atorvastatin Calcium 40 Mg Tablet, 40 MG PO HS, (Reported) Clopidogrel Bisulfate 75 Mg Tablet, 75 MG PO DAILY Prescribed by: JOCELYN THOMPSON on 12/30/20 1152 Cyclobenzaprine HCl 5 Mg Tablet, 5 MG PO TID PRN for MUSCLE CRAMPS, (Reported) Duloxetine HCl 60 Mg Capsule.dr, 60 MG PO 0900,1700, (Reported) Furosemide 40 Mg Tablet, 40 MG PO DAILY, (Reported) Glimepiride 1 Mg Tab, 1 MG PO DAILY, (Reported) Insulin Aspart 300 Units/3 Ml Solution, 5 UNITS SQ TID, (Reported) Insulin Detemir 100 Unit/1 Ml Insuln.pen, 15 UNIT SQ HS, (Reported) Isosorbide Mononitrate 30 Mg Tab.er.24h, 30 MG PO DAILY Prescribed by: JOCELYN THOMPSON on 12/30/201151 Losartan Potassium 100 Mg Tablet, 100 MG PO DAILY, (Reported) Metoprolol Succinate 100 Mg Tab.er.24h, 100 MG PO DAILY Prescribed by: JOCELYN THOMPSON on 12/30/20 115 Mupirocin 22 Gm Oint...g., 1 APPLIC TP BID, (Reported) FILLED 12-21-2020 #1/7 DAY SUPPLY Nitroglycerin 0.4 Mg Tab.subl, 0 MG SL NEEDED PRN for CHEST PAIN Prescribed by: JOCELYN THOMPSON on 12/30/20 115 Potassium Chloride 10 Meq Tab.er.prt, 10 MEQ PO DAILY, (Reported) Prednisone 20 Mg Tab, 20 TAB PO DAILY 2 tabs x 3 days then 1 tab x 3 days then 1/2 tab x 4 days Prescribed by: JOCELYN THOMPSON on 12/30/20 115 Rivaroxaban 15 Mg Tablet, 15 MG PO DAILY@1700 Prescribed by: JOCELYN THOMPSON on 12/30/20 115 Sitagliptin Phos/Metformin HCl 1 Each Tablet, 1 EACH PO 0900,1700, (Reported) Tobramycin/Dexamethasone 3.5 Gm Oint, 1 APPLIC OP TID, (Reported) FILLED 12-21-2020 #1/7 DAY SUPPLY Past Medical/Social/Family Hx Immunizations Up To Date First/Initial COVID19 Vaccinat: 05/18/20 Second COVID19 Vaccination Jose: 05/18/20 Tetanus Booster (TDap): Unknown Hepatitis A: No Hepatitis B: No Date of Pneumonia Vaccine: Aug 18, 2013 Current Status Primary Language: Omani Preferred Spoken Language: Omani Past Medical History PMHx: DMII HTN HLD CAD Family Medical History Family Hx: PAST SURGICAL HISTORY: -CARDIAC CATHS--STENTS X 2 IN 2018. LAST CATH 02/04/19--NO INTERVENTION. HAD PATENT STENT TO LEFT CIRCUMFLEX, WITH COMPLETE OCCLUSION OF LEFT PDA; PATENT STENT TO RCA; MILD DISEASE IN OTHER VESSELS -APPENDECTOMY -EGD'S AND COLONOSCOPIES WITH POLYPECTOMY -BILATERAL CARPAL TUNNEL SURGERY -LEFT HAND SURGERY -LEFT FOOT SURGERY Review of Systems Constitutional: see HPI Other ROS PER ATTENDING PHYSICIAN Sepsis Event Evaluation Height, Weight, BMI Height: 5'9.00" Weight: 247lbs. 7.0oz. 112.832655kb; 33.00 BMI Method:Stated Exam Exam Patient acknowledged, consented, and participated in this virtual visit which was conducted using real time audio/video Vital Signs Date Time Temp Pulse Resp B/P (MAP) Pulse Ox O2 Delivery O2 Flow Rate FiO2 12/31/20 17:17 96 16 144/85 12/31/20 17:00 80 12/31/20 16:06 96 16 90 100 12/31/20 15:46 36.4 107 24 148/100 (116) 75 Ambu Bag Height & Weight Height: 5'9.00" Weight: 247lbs. 7.0oz. 112.095675zd; 33.00 BMI Method:Stated General Appearance: Other (intubated) Capillary Refill: Less Than 3 Seconds Gastrointestinal: soft, distended Other comments PE PER ATTENDING PHYSICIAN. Results Lab Laboratory Tests 12/31/20 15:51 Radiology CXR REVIEWED. Assessment/Plan Assessment/Plan 1. Acute flash pulmonary edema possibly due to underlying ongoing ischemia 2. Acute hypoxic respiratory failure secondary to pulmonary edema requiring mechanical ventilation. 3. History of coronary artery disease status post stent placement. 4. History of diabetes mellitus. 5. Moderate obesity. Recommendations 1. Continue current mechanical ventilatory support and repeat blood gases later in the day. 2. We will start on IV Lasix drip. 3. Consult cardiology 4. Diabetes management per primary care physician. 5. Ulcer prophylaxis and DVT prophylaxis. 6. I do not think the patient has any pneumonia at this time. Critical Care: Ventilator Management Time spent with patient (mins): 45 RODERICK GEIGER MD Dec 31, 2020 18:42
[2020-12-31 18:51] VITALS: BP 119/74
[2020-12-31] MEDS ORDERED: FUROSEMIDE 40 MG/4 ML ONE (18:52)
[2020-12-31] MEDS ORDERED: NS (IVPB) 100 ML ONE (18:53)
[2020-12-31] MEDS: PANTOPRAZOLE 40 MG (PROTONIX) VIAL IV SCH (19:22)
[2020-12-31 20:18] VITALS: BP 148/100
[2020-12-31] MEDS ORDERED: RT-ALBUTEROL SULF 2.5 MG/3 ML PRE-MIX VIAL INH PRN (20:45)
[2020-12-31] MEDS ORDERED: CATHETER FLUSH 10 ML SYR IV PRN (20:45)
[2020-12-31 20:46] VITALS: BP 117/73
[2020-12-31] MEDS: PROPOFOL DRIP (ICU) 100 ML IV SCH (20:50)
[2020-12-31] MEDS: MIDAZOLAM DRIP PRE-MIX 100 ML IV SCH (20:51)
[2020-12-31] MEDS ORDERED: ENOXAPARIN 60 MG/0.6 ML (LOVENOX) SYR SC SCH (21:00)
[2020-12-31] MEDS: CATHETER FLUSH 10 ML SYR IV SCH (21:02)
[2020-12-31] MEDS: FUROSEMIDE 40 MG/4 ML INJ (LASIX) IV SCH (21:02)
[2020-12-31] MEDS: fentaNYL DRIP PRE-MIX 250 ML IV SCH (21:12)
[2020-12-31] MEDS: RT-ALBUTEROL SULF 2.5 MG/3 ML PRE-MIX VIAL INH SCH (21:41)
[2020-12-31 21:48] VITALS: BP 126/63
[2021-01-01] VITALS (7 sets, daily range): BP systolic 113–147; BP diastolic 57–76
[2021-01-01] MEDS: PROPOFOL DRIP (ICU) 100 ML IV SCH ×4 (00:10→23:47)
[2021-01-01] MEDS: fentaNYL DRIP PRE-MIX 250 ML IV SCH ×3 (02:11→19:01)
[2021-01-01] MEDS: MIDAZOLAM DRIP PRE-MIX 100 ML IV SCH ×2 (02:11→13:12)
[2021-01-01] MEDS: RT-ALBUTEROL SULF 2.5 MG/3 ML PRE-MIX VIAL INH SCH ×6 (02:29→21:18)
[2021-01-01 04:53] LABS: BASOPHILS % (AUTO) 1 % (0-10); EOSINOPHILS # (AUTO) 0.2 10^3/uL (0.0-0.3); EOSINOPHILS % (AUTO) 2 % (0-10); HEMATOCRIT 29 % (40-54); HEMOGLOBIN 9.5 g/dL (13.3-17.7); LYMPHOCYTES # (AUTO) 1.4 10^3/uL (1.0-4.0); LYMPHOCYTES % (AUTO) 16 % (12-44); MEAN CORPUSCULAR HEMOGLOBIN 29 pg (25-34); MEAN CORPUSCULAR HGB CONC 32 g/dL (32-36); MEAN CORPUSCULAR VOLUME 90 fL (80-99); MEAN PLATELET VOLUME 9.1 fL (9.0-12.2); MONOCYTES # (AUTO) 0.5 10^3/uL (0.0-1.0); MONOCYTES % (AUTO) 6 % (0-12); NEUTROPHILS # (AUTO) 6.4 10^3/uL (1.8-7.8); NEUTROPHILS % (AUTO) 75 % (42-75); PLATELET COUNT 333 10^3/uL (130-400); WHITE BLOOD COUNT 8.6 10^3/uL (4.3-11.0)
[2021-01-01 05:09] LABS: POTASSIUM 3.5 MMOL/L (3.6-5.0)
[2021-01-01 05:10] LABS: CALCIUM 8.1 MG/DL (8.5-10.1)
[2021-01-01 05:14] LABS: CREATININE SERUM 1.22 MG/DL (0.60-1.30)
[2021-01-01 05:28] LABS: ABG BASE EXCESS 0.5 MMOL/L (-2.5-2.5); ABG OXYGEN SATURATION 93 % (94-100); ABG PCO2 32 MMHG (35-45); ABG PH 7.48 (7.37-7.43); ABG PO2 61 MMHG (79-93); ABG TCO2 24.8 MMOL/L (21.0-31.0); ALLENS TEST YES-POS; INSPIRED O2 50%; PATIENT TEMP 36.4; VENTILATOR YES
[2021-01-01 05:46] LABS: PHOSPHORUS 2.5 MG/DL (2.3-4.7)
[2021-01-01 05:47] LABS: MAGNESIUM 1.9 MG/DL (1.6-2.4)
[2021-01-01] MEDS: POTASSIUM CL 10MEQ/50ML IVPB 50 ML IV SCH ×3 (06:06→06:15)
[2021-01-01] MEDS: KCL 20 MEQ TAB (K-DUR) PO SCH (06:06)
[2021-01-01] MEDS: MAGNESIUM 1 GM/100 ML IVPB 100 ML IV SCH (06:06)
[2021-01-01] MEDS: inSUlin ASPART (NovoLOG) 1 UNIT/0.01 ML (CHARGE PER UNIT) SC SCH ×4 (06:14→23:56)
[2021-01-01] MEDS: PANTOPRAZOLE 40 MG (PROTONIX) VIAL IV SCH (06:15)
[2021-01-01] MEDS: FUROSEMIDE 40 MG/4 ML INJ (LASIX) IV SCH ×2 (06:16→15:49)
[2021-01-01] MEDS: CATHETER FLUSH 10 ML SYR IV SCH ×3 (06:16→20:12)
--- NOTE | 2021-01-01 06:51 | Diagnostic Imaging Report ---
Portable chest INDICATION: Pulmonary edema. Comparison made to the prior study from 12/31/2020. FINDINGS: Endotracheal tube positioning and enteric tube positioning appropriate. There has been significant interval improvement in the pulmonary vascular status compared to the prior examination with diminished degree of alveolar edema as on the prior exam. The central pulmonary vascularity remains prominent. Heart size and mediastinal contours are stable. No large effusion is evident. IMPRESSION: 1. Persistent central pulmonary vascular prominence although there has been a significant overall improvement in the pulmonary vascular status and prior alveolar edema compared to the previous exam. Dictated by: Dictated on workstation # [id number]
[2021-01-01] MEDS: ENOXAPARIN 300 MG/3 ML (LOVENOX) MULTI-DOSE VIAL SQ SCH ×2 (07:56→20:11)
[2021-01-01] MEDS ORDERED: ROCURONIUM 10 MG/ML 5 ML SYRINGE IV ONE (08:37)
[2021-01-01] MEDS ORDERED: MIDAZOLAM 5 MG/5 ML (VERSED) VIAL IV ONE ×2 (08:37→08:50)
[2021-01-01] MEDS ORDERED: ETOMIDATE IV SOLN 20 MG/10 ML VIAL IV ONE (08:37)
--- NOTE | 2021-01-01 08:57 | Tele-ICU Progress Note ---
Progress Note video nehemiah completed 60 y/o intubated due to flash pulm edema prob secondary to coronary artery disease Vent settings: 24/450/50%/8 Overall comfortable and sedated on propofol Pulse 92, NSR O2 at 92% BP: 112/63 CXR today FINDINGS: Endotracheal tube positioning and enteric tube positioning appropriate. There has been significant interval improvement in the pulmonary vascular status compared to the prior examination with diminished degree of alveolar edema as on the prior exam. The central pulmonary vascularity remains prominent. Heart size and mediastinal contours are stable. No large effusion is evident. IMPRESSION: 1. Persistent central pulmonary vascular prominence although there has been a significant overall improvement in the pulmonary vascular status and prior alveolar edema compared to the previous exam. IMP: pulm edema, overall improved by cxr PLan: ABG STILL BORDERLINE, WEAN FEASABLE Laboratory Tests 12/31/20 15:51 01/01/21 04:45 Labs Labs Laboratory Tests 12/31/20 15:51: White Blood Count 15.8H, Red Blood Count 4.35, Hemoglobin 12.6#L, Hematocrit 41, Mean Corpuscular Volume 94, Mean Corpuscular Hemoglobin 29, Mean Corpuscular Hemoglobin Concent 31L, Red Cell Distribution Width 13.5, Platelet Count 533H, Mean Platelet Volume 9.2, Immature Granulocyte % (Auto) 4, Neutrophils (%) (Auto) 59, Lymphocytes (%) (Auto) 26, Monocytes (%) (Auto) 7, Eosinophils (%) (Auto) 3, Basophils (%) (Auto) 1, Neutrophils # (Auto) 9.3H, Lymphocytes # (Auto) 4.2H, Monocytes # (Auto) 1.1H, Eosinophils # (Auto) 0.4H, Basophils # (Auto) 0.1, Immature Granulocyte # (Auto) 0.7H, Neutrophils % (Manual) 56, Lymphocytes % (Manual) 26, Monocytes % (Manual) 6, Eosinophils % (Manual) 2, Basophils % (Manual) 1, Band Neutrophils 2, Atypical Lymphocytes 7, Toxic Granulation 2+, Polychromasia SLIGHT, Anisocytosis SLIGHT, Prothrombin Time 14.0, INR Comment 1.0, Activated Partial Thromboplast Time 37H, Sodium Level 140, Potassium Level 4.3, Chloride Level 105, Carbon Dioxide Level 20L, Anion Gap 15H, Blood Urea Nitrogen 18, Creatinine 1.29, Estimat Glomerular Filtration Rate 57, BUN/Creatinine Ratio 14, Glucose Level 266H, Calcium Level 9.0, Corrected Calcium 9.5, Total Bilirubin 0.3, Aspartate Amino Transf (AST/SGOT) 33 , Alanine Aminotransferase (ALT/SGPT) 22, Alkaline Phosphatase 91, Troponin I < 0.028, B-Type Natriuretic Peptide 118.7H, Total Protein 7.5, Albumin 3.4, Serum Alcohol < 10 12/31/20 15:58: Urine Color YELLOW, Urine Clarity CLEAR, Urine pH 6.0, Urine Specific [place] 1.020, Urine Protein 2+H, Urine Glucose (UA) NEGATIVE, Urine Ketones NEGATIVE, Urine Nitrite NEGATIVE, Urine Bilirubin NEGATIVE, Urine Urobilinogen 0.2, Urine Leukocyte Esterase NEGATIVE, Urine RBC (Auto) 1+H, Urine RBC 0-2, Urine WBC 0-2, Urine Squamous Epithelial Cells 0-2, Urine Renal Epithelial Cells 0-2, Urine Crystals PRESENTH, Urine Amorphous Sediment FEW SHANEKA URATESH, Urine Bacteria TRACE, Urine Casts NONE, Urine Mucus NEGATIVE, Urine Other MOD SPERMH, Urine Culture Indicated NO, Urine Opiates Screen NEGATIVE, Urine Oxycodone Screen NEGATIVE, Urine Methadone Screen NEGATIVE, Urine Propoxyphene Screen NEGATIVE, Urine Barbiturates Screen NEGATIVE, Ur Tricyclic Antidepressants Screen NEGATIVE, Urine Phencyclidine Screen NEGATIVE, Urine Amphetamines Screen NEGATIVE, Urine Methamphetamines Screen NEGATIVE, Urine Benzodiazepines Screen NEGATIVE, Urine Cocaine Screen NEGATIVE, Urine Cannabinoids Screen NEGATIVE 12/31/20 16:34: Blood Gas Puncture Site RT RAD, Blood Gas Patient Temperature 36.4, Arterial Blood pH 7.18*L, Arterial Blood Partial Pressure CO2 70H, Arterial Blood Partial Pressure O2 89, Arterial Blood HCO3 25, Arterial Blood Total CO2 27.5, Arterial Blood Oxygen Saturation 95, Arterial Blood Base Excess -2.3, Kush Test YES-POS, Blood Gas Ventilator Setting YES, Blood Gas Inspired Oxygen 100% 12/31/20 18:20: Blood Gas Puncture Site NA, Blood Gas Patient Temperature 36.4, Arterial Blood pH 7.31*L, Arterial Blood Partial Pressure CO2 50H, Arterial Blood Partial Pressure O2 64L, Arterial Blood HCO3 25, Arterial Blood Total CO2 26.3, Arterial Blood Oxygen Saturation 92L, Arterial Blood Base Excess -0.8, Kush Test NA, Blood Gas Ventilator Setting YES, Blood Gas Inspired Oxygen 80% 01/01/21 04:45: White Blood Count 8.6, Red Blood Count 3.26L, Hemoglobin 9.5#L, Hematocrit 29L, Mean Corpuscular Volume 90, Mean Corpuscular Hemoglobin 29, Mean Corpuscular Hemoglobin Concent 32, Red Cell Distribution Width 13.6, Platelet Count 333, Mean Platelet Volume 9.1, Immature Granulocyte % (Auto) 1, Neutrophils (%) (Auto) 75, Lymphocytes (%) (Auto) 16, Monocytes (%) (Auto) 6, Eosinophils (%) (Auto) 2, Basophils (%) (Auto) 1, Neutrophils # (Auto) 6.4, Lymphocytes # (Auto) 1.4, Monocytes # (Auto) 0.5, Eosinophils # (Auto) 0.2, Basophils # (Auto) 0.0, Immature Granulocyte # (Auto) 0.1, Sodium Level 141, Potassium Level 3.5L, Chloride Level 109H, Carbon Dioxide Level 20L, Anion Gap 12, Blood Urea Nitrogen 18, Creatinine 1.22, Estimat Glomerular Filtration Rate 61, BUN/Creatinine Ratio 15, Glucose Level 221H, Calcium Level 8.1L, Phosphorus Level 2.5, Magnesium Level 1.9, Troponin I 0.123H 01/01/21 05:14: Blood Gas Puncture Site RIGHT RADIAL, Blood Gas Patient Temperature 36.4, Arterial Blood pH 7.48H, Arterial Blood Partial Pressure CO2 32L, Arterial Blood Partial Pressure O2 61L, Arterial Blood HCO3 24, Arterial Blood Total CO2 24.8, Arterial Blood Oxygen Saturation 93L, Arterial Blood Base Excess 0.5, Kush Test YES-POS, Blood Gas Ventilator Setting YES, Blood Gas Inspired Oxygen 50% Focused Exam Height, Weight, BMI Height: 5'9.00" Weight: 247lbs. 7.0oz. 112.213383ro; 38.00 BMI Method:Stated HAIM PAREKH MD Jan 01, 2021 08:57
--- NOTE | 2021-01-01 10:20 | History & Physical-Hospitalist ---
History of Present Illness HPI/Chief Complaint Is a 60-year-old white male who was just discharged the day before this admission. He had been admitted a week ago with a previous episode of acute cardiopulmonary arrest requiring intubation. Throughout the past hospi talization during the evening the patient would become acutely dyspneic and seem to go into pulmonary edema again. The patient had called EMS yesterday and when they arrived he said that he was going to code. While they never lost a pulse he did become apneic and he was given an oral airway and transported to the emergency room where he was found to be in florid pulmonary edema. Of note the BNP was not markedly elevated nor was the troponin. In discussing the case with Dr. Ortega consideration should be given to a second etiology for pulmonary edema rather than a cardiogenic source. Neurogenic pulmonary edema is a consideration since each time he becomes hypertensive in retrospect. A pheochromocytoma with a catecholamine surge could feasibly be responsible for this. The patient is in tubated this morning on an FiO2 of 50% with a PEEP of 8 and good oxygenation. No history is obtained secondary to the patient being intubated. Nursing staff notes that he was following commands earlier when off sedation Source: old records Exam Limitations: clinical condition Date Seen 01/01/21 Time Seen by a Provider: 09:15 Attending Physician Marycruz Fenton MD PCP Socrates Hurtado MD Referring Physician Date of Admission Dec 31, 2020 at 17:17 Home Medications & Allergies Home Medications Reviewed patient Home Medication Reconciliation performed by pharmacy medication reconciliations mobile service rv technician and/or nursing. Patients Allergies have been reviewed. Allergies Allergies Coded Allergies aspirin (Verified Allergy, Severe, 12/10/17) egg (Verified Allergy, Intermediate, Vomiting, 03/21/20) Penicillins (Unverified Allergy, Unknown, 07/19/13) Sulfa (Sulfonamide Antibiotics) (Unverified Allergy, Unknown, 07/19/13) lactose (Unverified Allergy, Unknown, 12/10/17) CAUSES GAS lidocaine (Verified Allergy, Unknown, 01/06/16) peanut (Unverified Allergy, Unknown, air closes off, 07/19/13) strawberry (Unverified Allergy, Unknown, airway closes off, 07/19/13) codeine (Unverified Adverse Reaction, Mild, NAUSEA, 02/03/14) Uncoded Allergies ENVIRONMENTAL ( Allergy, Unknown, 07/19/13) raw egg whites ( Adverse Reaction, Unknown, upset stomach, 12/09/17) Past Huzvsrl-Ipsprz-Kaorqi Hx Patient Social History Marrital Status: single Employed/Student: unemployed Smoking Status: Unknown if Ever Smoked Smokeless Tobacco Frequency: Unknown if Ever Used Use of E-Cig and/or Vaping dev: Unable to obtain Use of E-Cig and/or Vaping Hema: Unknown if Ever Used Substance use?: Unable to obtain Alcohol Use?: Unable to obtain Pt feels they are or have been: Unable to obtain Immunizations Up To Date First/Initial COVID19 Vaccinat: 05/18/20 Second COVID19 Vaccination Jose: 05/18/20 Tetanus Booster (TDap): Unknown Hepatitis A: No Hepatitis B: No Date of Pneumonia Vaccine: Aug 18, 2013 Seasonal Allergies Seasonal Allergies: Yes Current Status Advance Directives: Unable to obtain Communicates: Unable To Communicate Primary Language: Gambian Preferred Spoken Language: Gambian Is interpretation needed?: No Past Medical History Surgeries: Cardiac, Coronary Stent, Gallbladder, Orthopedic, Tonsillectomy Asthma, Sleep Apnea Currently Using CPAP: Yes Currently Using BIPAP: Yes Coronary Artery Disease, High Cholesterol, Hypertension, Irregular Heartbeat, Valvular Heart Disease Neuropathy Sexually Transmitted Disease: No Gastroesophageal Reflux, Polyps, Hiatal Hernia, Ulcer Arthritis Diabetes, Insulin dep Loss of Vision: Denies Hearing Impairment: Denies Anxiety Psoriasis Blood Disorders: No Adverse Reaction/Blood Tranf: No PMHx: DMII HTN HLD CAD Family Medical History Congestive heart failure 19 MOTHER Family history: Arthritis 19 FATHER 19 MOTHER Family history: Cardiovascular disease 19 FATHER 19 MOTHER Family history: Diabetes mellitus 19 FATHER Family history: Glaucoma 19 MOTHER Family history: Hypertension 19 FATHER 19 MOTHER Family history: Osteoporosis 19 MOTHER Hearing loss 19 MOTHER Heart disease 19 FATHER 19 MOTHER Myocardial infarction 19 FATHER 19 MOTHER (DBL BYPASS) Stroke 19 MOTHER (MICRO STROKES) No Family History of: Abdominal aortic aneurysm [place]'s disease Alcoholism Aphasia Cancer Cancer of colon Cataract Chest pain Congenital heart disease Cystic fibrosis Dementia Dysphagia Family history: Allergy Family history: Alzheimer's disease Family history: Asthma Family history: Breast disease Family history: Coronary thrombosis Family history: Gastrointestinal disease Family history: Thyroid disorder Headache Hereditary disease History of - anemia History of - disorder History of - respiratory disease History of drug abuse Human immunodeficiency virus (HIV) seropositivity Hypercholesterolemia Infertile Kidney disease Malignant neoplasm of lung Parkinson's disease Prostate cancer Psychotic disorder Seizure disorder Tuberculosis Visual impairment Heart Disease, Diabetes, Hypertension PAST SURGICAL HISTORY: -CARDIAC CATHS--STENTS X 2 IN 2018. LAST CATH 02/04/19--NO INTERVENTION. HAD PATENT STENT TO LEFT CIRCUMFLEX, WITH COMPLETE OCCLUSION OF LEFT PDA; PATENT STENT TO RCA; MILD DISEASE IN OTHER VESSELS -APPENDECTOMY -EGD'S AND COLONOSCOPIES WITH POLYPECTOMY -BILATERAL CARPAL TUNNEL SURGERY -LEFT HAND SURGERY -LEFT FOOT SURGERY Review of Systems ROS-Unable to Obtain: y Constitutional: see HPI Physical Exam Physical Exam Vital Signs Vital Signs - First Documented 12/31/20 12/31/20 12/31/20 15:46 16:06 18:46 Temp 36.4 Pulse 107 Resp 24 B/P (MAP) 148/100 (116) Pulse Ox 75 O2 Delivery Ambu Bag O2 Flow Rate 100.00 FiO2 100 Capillary Refill : Less Than 3 Seconds Height, Weight, BMI Height: 5'9.00" Weight: 247lbs. 7.0oz. 112.672353pv; 38.00 BMI Method:Stated General Appearance: Chronically ill, Other (Intubated) Neck: Limited Range of Motion Respiratory: Chest Non Tender, Lungs Clear, Normal Breath Sounds Cardiovascular: Regular Rate, Rhythm, No Gallop, No Murmur Gastrointestinal: Distended Extremity: Pedal Edema Skin: Warm/Dry Results Results/Procedures Labs Laboratory Tests 12/31/20 15:51 01/01/21 04:45 Patient resulted labs reviewed. Imaging: Reviewed Imaging Films, Reviewed Imaging Report Assessment/Plan Admission Diagnosis Acute pulmonary edema consideration should be given to neurogenic cause or an etiology other than cardiac Coronary artery disease mild with a history of stenting Pulmonary nodule History of hypertension COPD Acute respiratory failure secondary to #1 on the ventilator Plan to wean off the ventilator as possible and pursue secondary work-up for flash pulmonary edema Admission Status: Inpatient Order (span 2 midnights) Reason for Inpatient Admission: Critically ill intubated with multiple comorbidities Critical Care Critically Ill Patient Copy Copies To 1: [facility]MARYCRUZ CARTWRIGHT MD Jan 01, 2021 10:20
--- NOTE | 2021-01-01 11:32 | Consultation-Cardiology ---
HPI-Cardiology Cardiology Consultation Date of Consultation 01/01/21 Date of Admission Time Seen by Provider: 09:15 Indication: Acute respiratory failure HPI 60 years old gentleman with history of coronary artery disease, COPD, was discharged from the hospital on December 30, 2020 on oxygen. He was brought back to the emergency room after acute respiratory failure, intubated, currently unable to provide any history. Review of his record and all his chest x-ray showed progressive pulmonary edema that is worsening. Home Medications & Allergies Allergies: Coded Allergies: aspirin (Verified Allergy, Severe, 12/10/17) egg (Verified Allergy, Intermediate, Vomiting, 03/21/20) Penicillins (Unverified Allergy, Unknown, 07/19/13) Sulfa (Sulfonamide Antibiotics) (Unverified Allergy, Unknown, 07/19/13) lactose (Unverified Allergy, Unknown, 12/10/17) CAUSES GAS lidocaine (Verified Allergy, Unknown, 01/06/16) peanut (Unverified Allergy, Unknown, air closes off, 07/19/13) strawberry (Unverified Allergy, Unknown, airway closes off, 07/19/13) codeine (Unverified Adverse Reaction, Mild, NAUSEA, 02/03/14) Uncoded Allergies: ENVIRONMENTAL (Allergy, Unknown, 07/19/13) raw egg whites (Adverse Reaction, Unknown, upset stomach, 12/09/17) Home Medication List Reviewed: Yes [id number] Hx Patient Social History Marital Status: single Employed/Student: unemployed Smoking Status: Unknown if Ever Smoked 2nd Hand Smoke Exposure: Yes (PARENTS SMOKED) Recent Hopitalizations: No Have you traveled recently?: Unable to obtain Alcohol Use?: Unable to obtain Immunizations Up To Date Tetanus Booster (TDap): Unknown Date of Pneumonia Vaccine: Aug 18, 2013 Past Medical History Discussed below Family Medical History Significant Family History: Heart Disease, Diabetes, Hypertension Family Medical Hx Noncontributory Family History: Congestive heart failure 19 MOTHER Family history: Arthritis 19 FATHER 19 MOTHER Family history: Cardiovascular disease 19 FATHER 19 MOTHER Family history: Diabetes mellitus 19 FATHER Family history: Glaucoma 19 MOTHER Family history: Hypertension 19 FATHER 19 MOTHER Family history: Osteoporosis 19 MOTHER Hearing loss 19 MOTHER Heart disease 19 FATHER 19 MOTHER Myocardial infarction 19 FATHER 19 MOTHER (DBL BYPASS) Stroke 19 MOTHER (MICRO STROKES) No Family History of: Abdominal aortic aneurysm Logan's disease Alcoholism Aphasia Cancer Cancer of colon Cataract Chest pain Congenital heart disease Cystic fibrosis Dementia Dysphagia Family history: Allergy Family history: Alzheimer's disease Family history: Asthma Family history: Breast disease Family history: Coronary thrombosis Family history: Gastrointestinal disease Family history: Thyroid disorder Headache Hereditary disease History of - anemia History of - disorder History of - respiratory disease History of drug abuse Human immunodeficiency virus (HIV) seropositivity Hypercholesterolemia Infertile Kidney disease Malignant neoplasm of lung Parkinson's disease Prostate cancer Psychotic disorder Seizure disorder Tuberculosis Visual impairment Review of Systems-General Review of Systems Constitutional: see HPI, other (Unable to provide review of system, patient is sedated and intubated) Reviewed Test Results Reviewed Test Results Lab Laboratory Tests Test 12/31/20 15:51 12/31/20 15:58 12/31/20 16:34 12/31/20 18:20 Range/Units White Blood Count 15.8 H 4.3-11.0 10^3/uL Red Blood Count 4.35 4.30-5.52 10^6/uL Hemoglobin 12.6 #L 13.3-17.7 g/dL Hematocrit 41 40-54 % Mean Corpuscular Volume 94 80-99 fL Mean Corpuscular Hemoglobin 29 25-34 pg Mean Corpuscular Hemoglobin Concent 31 L 32-36 g/dL Red Cell Distribution Width 13.5 10.0-14.5 % Platelet Count 533 H 130-400 10^3/uL Mean Platelet Volume 9.2 9.0-12.2 fL Immature Granulocyte % (Auto) 4 % Neutrophils (%) (Auto) 59 42-75 % Lymphocytes (%) (Auto) 26 12-44 % Monocytes (%) (Auto) 7 0-12 % Eosinophils (%) (Auto) 3 0-10 % Basophils (%) (Auto) 1 0-10 % Neutrophils # (Auto) 9.3 H 1.8-7.8 10^3/uL Lymphocytes # (Auto) 4.2 H 1.0-4.0 10^3/uL Monocytes # (Auto) 1.1 H 0.0-1.0 10^3/uL Eosinophils # (Auto) 0.4 H 0.0-0.3 10^3/uL Basophils # (Auto) 0.1 0.0-0.1 10^3/uL Immature Granulocyte # (Auto) 0.7 H 0.0-0.1 10^3/uL Neutrophils % (Manual) 56 % Lymphocytes % (Manual) 26 % Monocytes % (Manual) 6 % Eosinophils % (Manual) 2 % Basophils % (Manual) 1 % Band Neutrophils 2 % Atypical Lymphocytes 7 % Toxic Granulation 2+ Polychromasia SLIGHT Anisocytosis SLIGHT Prothrombin Time 14.0 12.2-14.7 SEC INR Comment 1.0 0.8-1.4 Activated Partial Thromboplast Time 37 H 24-35 SEC Sodium Level 140 135-145 MMOL/L Potassium Level 4.3 3.6-5.0 MMOL/L Chloride Level 105 98-107 MMOL/L Carbon Dioxide Level 20 L 21-32 MMOL/L Anion Gap 15 H 5-14 MMOL/L Blood Urea Nitrogen 18 7-18 MG/DL Creatinine 1.29 0.60-1.30 MG/DL Estimat Glomerular Filtration Rate 57 BUN/Creatinine Ratio 14 Glucose Level 266 H 70-105 MG/DL Calcium Level 9.0 8.5-10.1 MG/DL Corrected Calcium 9.5 8.5-10.1 MG/DL Total Bilirubin 0.3 0.1-1.0 MG/DL Aspartate Amino Transf (AST/SGOT) 33 5-34 U/L Alanine Aminotransferase (ALT/SGPT) 22 0-55 U/L Alkaline Phosphatase 91 40-136 U/L Troponin I < 0.028 <0.028 NG/ML B-Type Natriuretic Peptide 118.7 H <100.0 PG/ML Total Protein 7.5 6.4-8.2 GM/DL Albumin 3.4 3.2-4.5 GM/DL Serum Alcohol < 10 <10 MG/DL Urine Color YELLOW Urine Clarity CLEAR Urine pH 6.0 5-9 Urine Specific [place] 1.020 1.016-1.022 Urine Protein 2+ H NEGATIVE Urine Glucose (UA) NEGATIVE NEGATIVE Urine Ketones NEGATIVE NEGATIVE Urine Nitrite NEGATIVE NEGATIVE Urine Bilirubin NEGATIVE NEGATIVE Urine Urobilinogen 0.2 < = 1.0 MG/DL Urine Leukocyte Esterase NEGATIVE NEGATIVE Urine RBC (Auto) 1+ H NEGATIVE Urine RBC 0-2 /HPF Urine WBC 0-2 /HPF Urine Squamous Epithelial Cells 0-2 /HPF Urine Renal Epithelial Cells 0-2 /HPF Urine Crystals PRESENT H /LPF Urine Amorphous Sediment FEW SHANEKA URATES H /LPF Urine Bacteria TRACE /HPF Urine Casts NONE /LPF Urine Mucus NEGATIVE /LPF Urine Other MOD SPERM H /HPF Urine Culture Indicated NO Urine Opiates Screen NEGATIVE NEGATIVE Urine Oxycodone Screen NEGATIVE NEGATIVE Urine Methadone Screen NEGATIVE NEGATIVE Urine Propoxyphene Screen NEGATIVE NEGATIVE Urine Barbiturates Screen NEGATIVE NEGATIVE Ur Tricyclic Antidepressants Screen NEGATIVE NEGATIVE Urine Phencyclidine Screen NEGATIVE NEGATIVE Urine Amphetamines Screen NEGATIVE NEGATIVE Urine Methamphetamines Screen NEGATIVE NEGATIVE Urine Benzodiazepines Screen NEGATIVE NEGATIVE Urine Cocaine Screen NEGATIVE NEGATIVE Urine Cannabinoids Screen NEGATIVE NEGATIVE Blood Gas Puncture Site RT RAD NA Blood Gas Patient Temperature 36.4 36.4 Arterial Blood pH 7.18 *L 7.31 *L 7.37-7.43 Arterial Blood Partial Pressure CO2 70 H 50 H 35-45 MMHG Arterial Blood Partial Pressure O2 89 64 L 79-93 MMHG Arterial Blood HCO3 25 25 23-27 MMOL/L Arterial Blood Total CO2 27.5 26.3 21.0-31.0 MMOL/L Arterial Blood Oxygen Saturation 95 92 L 94-100 % Arterial Blood Base Excess -2.3 -0.8 -2.5-2.5 MMOL/L Kush Test YES-POS NA Blood Gas Ventilator Setting YES YES Blood Gas Inspired Oxygen 100% 80% Test 01/01/21 04:45 01/01/21 05:14 Range/Units White Blood Count 8.6 4.3-11.0 10^3/uL Red Blood Count 3.26 L 4.30-5.52 10^6/uL Hemoglobin 9.5 #L 13.3-17.7 g/dL Hematocrit 29 L 40-54 % Mean Corpuscular Volume 90 80-99 fL Mean Corpuscular Hemoglobin 29 25-34 pg Mean Corpuscular Hemoglobin Concent 32 32-36 g/dL Red Cell Distribution Width 13.6 10.0-14.5 % Platelet Count 333 130-400 10^3/uL Mean Platelet Volume 9.1 9.0-12.2 fL Immature Granulocyte % (Auto) 1 % Neutrophils (%) (Auto) 75 42-75 % Lymphocytes (%) (Auto) 16 12-44 % Monocytes (%) (Auto) 6 0-12 % Eosinophils (%) (Auto) 2 0-10 % Basophils (%) (Auto) 1 0-10 % Neutrophils # (Auto) 6.4 1.8-7.8 10^3/uL Lymphocytes # (Auto) 1.4 1.0-4.0 10^3/uL Monocytes # (Auto) 0.5 0.0-1.0 10^3/uL Eosinophils # (Auto) 0.2 0.0-0.3 10^3/uL Basophils # (Auto) 0.0 0.0-0.1 10^3/uL Immature Granulocyte # (Auto) 0.1 0.0-0.1 10^3/uL Sodium Level 141 135-145 MMOL/L Potassium Level 3.5 L 3.6-5.0 MMOL/L Chloride Level 109 H 98-107 MMOL/L Carbon Dioxide Level 20 L 21-32 MMOL/L Anion Gap 12 5-14 MMOL/L Blood Urea Nitrogen 18 7-18 MG/DL Creatinine 1.22 0.60-1.30 MG/DL Estimat Glomerular Filtration Rate 61 BUN/Creatinine Ratio 15 Glucose Level 221 H 70-105 MG/DL Calcium Level 8.1 L 8.5-10.1 MG/DL Phosphorus Level 2.5 2.3-4.7 MG/DL Magnesium Level 1.9 1.6-2.4 MG/DL Troponin I 0.123 H <0.028 NG/ML Blood Gas Puncture Site RIGHT RADIAL Blood Gas Patient Temperature 36.4 Arterial Blood pH 7.48 H 7.37-7.43 Arterial Blood Partial Pressure CO2 32 L 35-45 MMHG Arterial Blood Partial Pressure O2 61 L 79-93 MMHG Arterial Blood HCO3 24 23-27 MMOL/L Arterial Blood Total CO2 24.8 21.0-31.0 MMOL/L Arterial Blood Oxygen Saturation 93 L 94-100 % Arterial Blood Base Excess 0.5 -2.5-2.5 MMOL/L Kush Test YES-POS Blood Gas Ventilator Setting YES Blood Gas Inspired Oxygen 50% Physical Exam Physical Exam Vital Signs Vital Signs - First Documented 12/31/20 12/31/20 12/31/20 15:46 16:06 18:46 Temp 36.4 Pulse 107 Resp 24 B/P (MAP) 148/100 (116) Pulse Ox 75 O2 Delivery Ambu Bag O2 Flow Rate 100.00 FiO2 100 Capillary Refill : Less Than 3 Seconds Height, Weight, BMI Height: 5'9.00" Weight: 247lbs. 7.0oz. [id number]; 38.00 BMI Method:Stated General Appearance: Chronically ill, Other (Intubated) Neck: Limited Range of Motion Respiratory: Chest Non Tender, Normal Breath Sounds, Crackles Cardiovascular: Regular Rate, Rhythm, No Gallop, No Murmur Gastrointestinal: Distended Extremity: Pedal Edema Skin: Warm/Dry A/P-Cardiology Admission Diagnosis Acute respiratory failure Non-ST elevation myocardial infarction Hypertension Hyperlipidemia Assessment/Plan Recurrent acute respiratory failure with flash pulmonary edema, was intubated last week then discharged, continue to have recurrent episodes of severe shortness of breath late in the evening then improved later during the day. He was discharged on oxygen, currently return to the hospital intubated. In flash pulmonary edema. We will continue with aggressive diuresis and monitor. Underlying etiology of his flash pulmonary edema is unknown, BNP is mildly elevated, cardiac enzymes are mildly elevated. No other signs of infection. Elevated troponin level, probably type II myocardial infarction secondary to respiratory failure and hypoxemia. History of chest pain with chronic stable angina. Continue to monitor Echo 12/24/20: LVEF 60-65%, mild conc LVH, PASP 20-25 mmHg. Coronary artery disease- Cardiac catheterization on December 09, 2017 revealing multivessel coronary artery disease with severe stenosis in the proximal circumflex artery with primary stenting using Rocío 3.012 mm expanded to 3.25 mm with excellent results. Severe stenosis in the mid right coronary artery with primary stenting using 2.512 mm Rocío expanded to 2.75 with excellent results. Mild to moderate disease in the proximal LAD, severe stenosis at the ostium of first diagonal artery that is very small artery. Cardiac catheterization done February 04, 2019 revealed total occlusion of the left PDA off the circumflex artery, patent stent in the proximal circumflex. Patent stent in the midright coronary artery. Mild disease in the LAD. Cardiac catheterization was done on December 29, 2020 showing patent stent in the proximal circumflex, right coronary artery. Severe stenosis at the distal circumflex artery, primary stenting using 2.25 x 23 mm expanded to 2.35 mm with excellent results. Has severe stenosis/subtotal occlusion at the distal right posterior descending artery, very small artery not amendable to intervention. Mild to moderate disease in the LAD. 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 Mild bilateral carotid stenosis, ultrasound was done in December 2018, continue to monitor. Family history of heart disease History of psoriasis. Diabetes mellitus, admitted with DKA, has had previous hospitalizations for DKA. Management per medical services Obesity, BMI is 39, we discussed weight loss and exercise CROW KNIGHT MD Jan 01, 2021 11:32
[2021-01-01] MEDS ORDERED: methylPREDNISolone 125 MG (Solu-MEDROL) VIAL IVP ONE (11:45)
[2021-01-01] MEDS: CLOPIDOGREL 75 MG (PLAVIX) TABLET PO SCH (12:26)
[2021-01-01] MEDS: methylPREDNISolone 125 MG (Solu-MEDROL) VIAL IVP SCH (20:11)
[2021-01-02] MEDS: MIDAZOLAM DRIP PRE-MIX 100 ML IV SCH (01:17)
[2021-01-02] MEDS: RT-ALBUTEROL SULF 2.5 MG/3 ML PRE-MIX VIAL INH SCH ×6 (02:26→22:47)
[2021-01-02 02:28] VITALS: BP 147/76
[2021-01-02] MEDS: fentaNYL DRIP PRE-MIX 250 ML IV SCH (02:41)
[2021-01-02 05:19] LABS: ABG BASE EXCESS -0.8 MMOL/L (-2.5-2.5); ABG OXYGEN SATURATION 95 % (94-100); ABG PCO2 36 MMHG (35-45); ABG PH 7.42 (7.37-7.43); ABG PO2 73 MMHG (79-93); ABG TCO2 24.1 MMOL/L (21.0-31.0)
[2021-01-02 05:24] LABS: ALLENS TEST YES-POS; INSPIRED O2 45%; PATIENT TEMP 37.3; VENTILATOR YES
[2021-01-02 05:31] LABS: BASOPHILS % (AUTO) 0 % (0-10); EOSINOPHILS % (AUTO) 0 % (0-10); HEMATOCRIT 31 % (40-54); HEMOGLOBIN 9.9 g/dL (13.3-17.7); LYMPHOCYTES # (AUTO) 0.6 10^3/uL (1.0-4.0); LYMPHOCYTES % (AUTO) 6 % (12-44); MEAN CORPUSCULAR HEMOGLOBIN 29 pg (25-34); MEAN CORPUSCULAR HGB CONC 32 g/dL (32-36); MEAN CORPUSCULAR VOLUME 91 fL (80-99); MEAN PLATELET VOLUME 9.4 fL (9.0-12.2); MONOCYTES # (AUTO) 0.2 10^3/uL (0.0-1.0); MONOCYTES % (AUTO) 2 % (0-12); NEUTROPHILS # (AUTO) 8.2 10^3/uL (1.8-7.8); NEUTROPHILS % (AUTO) 91 % (42-75); PLATELET COUNT 354 10^3/uL (130-400); WHITE BLOOD COUNT 9.1 10^3/uL (4.3-11.0)
[2021-01-02 05:41] LABS: POTASSIUM 4.4 MMOL/L (3.6-5.0)
[2021-01-02 05:42] LABS: CALCIUM 8.5 MG/DL (8.5-10.1)
[2021-01-02 05:46] LABS: PHOSPHORUS 2.6 MG/DL (2.3-4.7)
[2021-01-02 05:47] LABS: CREATININE SERUM 1.53 MG/DL (0.60-1.30)
[2021-01-02] MEDS: KCL 20 MEQ TAB (K-DUR) PO SCH (05:47)
[2021-01-02] MEDS: PROPOFOL DRIP (ICU) 100 ML IV SCH ×3 (05:47→19:50)
[2021-01-02] MEDS: POTASSIUM CL 10MEQ/50ML IVPB 50 ML IV SCH (05:47)
[2021-01-02] MEDS: CATHETER FLUSH 10 ML SYR IV SCH ×3 (05:51→21:48)
[2021-01-02] MEDS: inSUlin ASPART (NovoLOG) 1 UNIT/0.01 ML (CHARGE PER UNIT) SC SCH ×3 (05:51→17:12)
[2021-01-02] MEDS: FUROSEMIDE 40 MG/4 ML INJ (LASIX) IV SCH ×2 (05:54→16:36)
[2021-01-02] MEDS: PANTOPRAZOLE 40 MG (PROTONIX) VIAL IV SCH (05:54)
[2021-01-02] MEDS: MAGNESIUM 1 GM/100 ML IVPB 100 ML IV SCH (05:54)
[2021-01-02 07:04] VITALS: BP 155/78
[2021-01-02] MEDS: CLOPIDOGREL 75 MG (PLAVIX) TABLET PO SCH (08:33)
[2021-01-02] MEDS: ENOXAPARIN 300 MG/3 ML (LOVENOX) MULTI-DOSE VIAL SQ SCH ×2 (08:33→20:27)
[2021-01-02] MEDS: methylPREDNISolone 125 MG (Solu-MEDROL) VIAL IVP SCH (08:33)
--- NOTE | 2021-01-02 08:34 | Cardiology Progress Note ---
Subjective Date Seen by Provider: Jan 02, 2021 Time Seen by Provider: 08:32 Subjective/Events-last exam Patient is sedated and intubated. Review of Systems General: Other (Unable to provide review of system) Focused Exam Lactate Level 01/01/21 12:50: Lactic Acid Level 0.80 Objective-Cardiology Exam Last Set of Vital Signs Vital Signs 01/02/21 01/02/21 01/02/21 01/02/21 06:00 07:04 07:18 08:25 Temp 37.2 Pulse 89 Resp 24 B/P (MAP) 156/77 Pulse Ox 91 O2 Delivery Mechanical Ventilator O2 Flow Rate 45.00 FiO2 45 I&O l Intake and Output 01/02/21 00:00 Intake Total 1070 ml Output Total 1575 ml Balance -505 ml Intake Oral 0 ml IV Total 1070 ml Output Urine Total 1575 ml General: Other (Sedated and intubated) HEENT: Atraumatic Neck: Supple Lungs: Normal Air Movement, Other (Bilateral rhonchi) Heart: Regular Rate, Normal S1, Normal S2 Abdomen: Normal Bowel Sounds Extremities: No Clubbing, No Cyanosis Skin: No Rashes Neuro: Other (Sedated and intubated) Psych/Mental Status: Other (Sedated and) Results Lab Laboratory Tests 01/02/21 05:25 A/P-Cardiology Admission Diagnosis Acute respiratory failure Non-ST elevation myocardial infarction Hypertension Hyperlipidemia Assessment/Plan Recurrent acute respiratory failure with flash pulmonary edema, was intubated last week then discharged, continue to have recurrent episodes of severe shortness of breath late in the evening then improved later during the day. He was discharged on oxygen, currently return to the hospital intubated. In flash pulmonary edema. Continue with aggressive diuretics, recommend initiate weaning Underlying etiology of his flash pulmonary edema is unknown, BNP is mildly elevated, cardiac enzymes are mildly elevated. No other signs of infection. Elevated troponin level, probably type II myocardial infarction secondary to respiratory failure and hypoxemia. History of chest pain with chronic stable angina. Continue to monitor Echo 12/24/20: LVEF 60-65%, mild conc LVH, PASP 20-25 mmHg. Coronary artery disease- Cardiac catheterization on December 09, 2017 revealing multivessel coronary artery disease with severe stenosis in the proximal circumflex artery with primary stenting using Rocío 3.012 mm expanded to 3.25 mm with excellent results. Severe stenosis in the mid right coronary artery with primary stenting using 2.512 mm Rocío expanded to 2.75 with excellent results. Mild to moderate disease in the proximal LAD, severe stenosis at the ostium of first diagonal artery that is very small artery. Cardiac catheterization done February 04, 2019 revealed total occlusion of the left PDA off the circumflex artery, patent stent in the proximal circumflex. Patent stent in the midright coronary artery. Mild disease in the LAD. Cardiac catheterization was done on December 29, 2020 showing patent stent in the proximal circumflex, right coronary artery. Severe stenosis at the distal circumflex artery, primary stenting using 2.25 x 23 mm expanded to 2.35 mm with excellent results. Has severe stenosis/subtotal occlusion at the distal right posterior descending artery, very small artery not amendable to intervention. Mild to moderate disease in the LAD. 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 Mild bilateral carotid stenosis, ultrasound was done in December 2018, continue to monitor. Family history of heart disease History of psoriasis. Diabetes mellitus, admitted with DKA, has had previous hospitalizations for DKA. Management per medical services Obesity, BMI is 39, we discussed weight loss and exercise CROW KNIGHT MD Jan 02, 2021 08:34
--- NOTE | 2021-01-02 09:39 | Tele-ICU Progress Note ---
Subjective Date Seen by a Provider: Jan 02, 2021 Time Seen by a Provider: 09:39 Sepsis Event Evaluation Height, Weight, BMI Height: 5'9.00" Weight: 247lbs. 7.0oz. 112.450572yv; 38.00 BMI Method:Stated Focused Exam Lactate Level 01/01/21 12:50: Lactic Acid Level 0.80 Exam Exam Patient acknowledged, consented, and participated in this virtual visit which was conducted using real time audio/video Vital Signs Date Time Temp Pulse Resp B/P (MAP) Pulse Ox O2 Delivery O2 Flow Rate FiO2 01/02/21 08:25 45 01/02/21 08:00 92 Mechanical Ventilator 45 01/02/21 07:26 45 01/02/21 07:18 37.2 Mechanical Ventilator 45.00 01/02/21 07:04 89 24 91 45 01/02/21 07:00 100 01/02/21 06:00 89 24 156/77 92 Mechanical Ventilator 45.00 01/02/21 05:00 94 24 160/77 93 Mechanical Ventilator 45.00 01/02/21 04:34 45 01/02/21 04:15 37.3 01/02/21 04:00 95 Mechanical Ventilator 45 01/02/21 04:00 96 23 138/69 92 Mechanical Ventilator 45.00 01/02/21 03:00 93 23 142/67 91 Mechanical Ventilator 45.00 01/02/21 02:28 86 24 92 40 01/02/21 02:27 92 Mechanical Ventilator 40 01/02/21 02:00 86 24 147/76 94 Mechanical Ventilator 45.00 01/02/21 01:30 Mechanical Ventilator 45.00 01/02/21 01:17 89 24 154/76 01/02/21 01:00 89 01/02/21 01:00 89 23 154/76 93 Mechanical Ventilator 40.00 01/02/21 00:32 Mechanical Ventilator 40.00 01/02/21 00:06 45 01/02/21 00:00 92 22 151/73 99 Mechanical Ventilator 45.00 01/02/21 00:00 95 Mechanical Ventilator 45 01/01/21 23:17 36.7 Mechanical Ventilator 45.00 01/01/21 23:00 93 23 137/69 93 Mechanical Ventilator 50.00 01/01/21 22:00 94 23 139/69 95 Mechanical Ventilator 50.00 01/01/21 21:21 95 24 95 50 01/01/21 21:18 95 Mechanical Ventilator 45 01/01/21 21:00 97 24 136/70 95 Mechanical Ventilator 50.00 01/01/21 20:21 50 01/01/21 20:00 95 Mechanical Ventilator 50 01/01/21 20:00 99 23 136/71 95 Mechanical Ventilator 50.00 01/01/21 19:36 37.3 01/01/21 19:00 101 24 120/68 96 Mechanical Ventilator 50.00 01/01/21 19:00 101 01/01/21 18:14 96 24 95 50 01/01/21 18:10 94 Mechanical Ventilator 50 01/01/21 18:00 92 24 153/80 94 Mechanical Ventilator 50.00 01/01/21 17:45 94 13 152/86 93 01/01/21 17:30 92 24 153/78 93 01/01/21 17:15 154/74 01/01/21 17:00 24 148/73 93 Mechanical Ventilator 50.00 01/01/21 16:45 93 23 147/72 93 01/01/21 16:30 23 143/73 93 01/01/21 16:15 95 19 141/71 93 01/01/21 16:02 94 Mechanical Ventilator 50 01/01/21 16:01 37.2 01/01/21 16:00 50 01/01/21 16:00 96 23 145/73 94 Mechanical Ventilator 50.00 01/01/21 15:45 98 23 147/72 94 01/01/21 15:30 97 24 144/71 93 01/01/21 15:15 96 23 135/68 93 01/01/21 15:00 95 19 142/73 93 Mechanical Ventilator 50.00 01/01/21 14:45 94 24 141/71 93 01/01/21 14:31 91 24 92 50 01/01/21 14:30 90 23 147/71 92 01/01/21 14:15 89 24 141/69 93 01/01/21 14:00 88 23 144/68 93 Mechanical Ventilator 50.00 01/01/21 13:45 89 23 142/66 93 01/01/21 13:30 92 9 154/78 94 01/01/21 13:15 90 24 128/71 93 01/01/21 13:12 89 24 124/63 01/01/21 13:00 89 23 124/63 93 Mechanical Ventilator 50.00 01/01/21 12:45 89 23 124/64 93 01/01/21 12:30 91 24 131/70 92 01/01/21 12:25 90 01/01/21 12:20 50 01/01/21 12:20 93 Mechanical Ventilator 50 01/01/21 12:15 89 23 121/61 93 01/01/21 12:00 91 23 121/61 93 Mechanical Ventilator 50.00 01/01/21 11:45 92 23 120/64 93 01/01/21 11:30 92 23 119/56 93 01/01/21 11:15 90 23 115/61 93 01/01/21 11:00 89 24 114/62 93 Mechanical Ventilator 50.00 01/01/21 10:47 89 24 93 50 01/01/21 10:45 89 24 113/57 93 01/01/21 10:30 89 23 114/59 93 01/01/21 10:15 88 24 109/57 93 01/01/21 10:00 88 23 111/56 93 Mechanical Ventilator 50.00 01/01/21 09:45 92 24 129/62 93 I & O 01/02/21 07:00 Intake Total 1070 ml Output Total 1400 ml Balance -330 ml Height & Weight Height: 5'9.00" Weight: 247lbs. 7.0oz. 112.703662fn; 38.00 BMI Method:Stated General Appearance: Chronically ill, Other (Intubated) Neck: Limited Range of Motion Respiratory: Chest Non Tender, Lungs Clear, Normal Breath Sounds Cardiovascular: Regular Rate, Rhythm, No Gallop, No Murmur Capillary Refill: Less Than 3 Seconds Gastrointestinal: soft, distended Extremity: Pedal Edema Skin: Warm/Dry Results Lab Laboratory Tests 12/31/20 15:51 01/01/21 04:45 01/02/21 05:25 Assessment/Plan Assessment/Plan (Tele-ICU Physician , Progress Note ) Available chart/ vitals / labs / Images reviewed Video assessment done using teleICU camera, rest of exam as per RN Discussed with RN , EXAM PER RN Events overnight : Afebrile FiO2 - I/O = Drips: Pressors: , hemodynamically stable Sedation gtt: ( RASS ) versed 9 , femtanyl 150 VENT SETTINGS and ABG reviewed Not candidate for SBT today REVIEWED Cardiovascular Stability / Sedation Score / FI02/PEEP / ABG / CXR Consultants: Hospital course: (12/22) 60 y/o male with cardiac arrest DKA -TTM initiated then discontinued as pt following commands. Intubated - extubted 12/25 - d/c home 12/30 (12/31) 60M Admitted for AMS, flash pulmonary edema. INTUBATED. 01/01- -AC 24 450 - 45% + 8 PAP 21 A/P Acute resp failure with flush pulm edema - intubated 12/31 -AC 24 450 - 45% + 8 PAP 21 - WILL TRY TO DO SBT TODAY CAD, s/p of prox LCx stenting (Rocío 3x12) and mid RCA stenting - Echo 12/24/20: LVEF 60-65%, mild conc LVH, PASP 20-25 mmHg. -Elevated troponin level, probably type II CO -- Allergy to aspirin causing angioedema; treated chronically with clopidogrel - cards consulted [facility] - with diuresis ( lasix gtt - lasix 40 bid - consider to hold/ decrease lasix Solumedrol 125 q 12 h - ? indications - will decrease dose Encephalopathy, uneven pupils on presentation- equal now - CTH neg 12/31 , neuro exam nonfocal Frequent ventricular ectopy with PVC and ventricular trigeminy, maintained on beta kelli. Recently tx for Suspected PNA 12/22= 12/27 -sputum cx 12/22 amd 12/31 - Usual upper respiratory linnette + yeast DM II, poorly controlled -ISS Obesity, BMI is 39 Mild bilateral carotid stenosis per u/s of Dec 2018 History of psoriasis. Lines : (Central Line Necessity Reviewed) Thompson: + OG: Nutrition: TF to start if not extubated Analgesia: Anxiety/ delirium VTE Prophylaxis: full dose lovenox Stress Ulcer Prophylaxis: PPi Plans in collaboration with bedside consultants and IM MDs. Discussed with RN to reach out if any questions or concerns A total of 33 minutes of critical care time was devoted to this patient today, required to treat and/or prevent further deterioration of critical care condition ( as above) . THOMAS CRUMP MD Jan 02, 2021 09:39
--- NOTE | 2021-01-02 10:13 | Progress Note - Hospitalist ---
Subjective HPI/CC On Admission Date Seen by Provider: Jan 02, 2021 Time Seen by Provider: 10:00 Is a 60-year-old white male who was just discharged the day before this admission. He had been admitted a week ago with a previous episode of acute cardiopulmonary arrest requiring intubation. Throughout the past hospitalization during the evening the patient would become acutely dyspneic and seem to go into pulmonary edema again. The patient had called EMS yesterday and when they arrived he said that he was going to code. While they never lost a pulse he did become apneic and he was given an oral airway and transported to the emergency room where he was found to be in florid pulmonary edema. Of note the BNP was not markedly elevated nor was the troponin. In discussing the case with Dr. Ortega consideration should be given to a second etiology for pulmonary edema rather than a cardiogenic source. Neurogenic pulmonary edema is a consideration since each time he becomes hypertensive in retrospect. A pheochromocytoma with a catecholamine surge could feasibly be responsible for this. The patient is intubated this morning on an FiO2 of 50% with a PEEP of 8 and good oxygenation. No history is obtained secondary to the patient being intubated. Nursing staff notes that he was following commands earlier when off sedation Subjective/Events-last exam Pt remains ventilated He nearly coded again Neurogenic pulmonary edema could possibly cause this EF of 65% Negative Troponin Negative BNP Wound care on his finger will be consulted Focused Exam Lactate Level 01/01/21 12:50: Lactic Acid Level 0.80 Objective Exam Vital Signs Vital Signs Date Time Temp Pulse Resp B/P (MAP) Pulse Ox O2 Delivery O2 Flow Rate FiO2 01/03/21 04:14 95 High Flow N/C 8.00 01/03/21 03:00 52 16 168/86 01/03/21 02:30 36.6 01/02/21 12:29 45 Capillary Refill : Less Than 3 Seconds General Appearance: Chronically ill, Other (Sedated and intubated) Respiratory: Lungs Clear, Normal Breath Sounds Cardiovascular: Regular Rate, Rhythm Results/Procedures Lab Laboratory Tests 01/02/21 05:25 Patient resulted labs reviewed. Imaging: Reviewed Imaging Films, Reviewed Imaging Report Assessment/Plan Assessment and Plan Assess & Plan/Chief Complaint Assessment: Respiratory arrest with flash pulmonary edema possible neurogenic in origin with normal BNP and negative troponin Ventilator dependent Chronically debilitated Diabetes Plan: Ventilator management appreciated Supportive care Work-up in progress Critical Care Critically Ill Patient DEIRDRE DIANA DO Jan 02, 2021 10:13
[2021-01-02 10:22] VITALS: BP 163/81
[2021-01-02 12:22] VITALS: BP 173/91
[2021-01-02 13:13] LABS: ABG BASE EXCESS -0.5 MMOL/L (-2.5-2.5); ABG OXYGEN SATURATION 94 % (94-100); ABG PCO2 41 MMHG (35-45); ABG PH 7.39 (7.37-7.43); ABG PO2 72 MMHG (79-93)
[2021-01-02 13:19] LABS: ALLENS TEST YES-POS; INSPIRED O2 45%; PATIENT TEMP 37.5; VENTILATOR YES
[2021-01-02] MEDS ORDERED: meTOprolol 5 MG/5 ML (LOPRESSOR) VIAL IV NR (16:15)
[2021-01-02] MEDS: DexMEDEtomidine 250 ML DRIP 250 ML IV SCH (18:31)
[2021-01-02] MEDS: fentaNYL INJ 100 MCG/2 ML AMP IVP PRN ×2 (18:31→21:52)
[2021-01-02] MEDS: LABETALOL HCL 20 MG/4 ML VIAL IV PRN ×2 (20:27→21:48)
[2021-01-02] MEDS ORDERED: methylPREDNISolone 125 MG (Solu-MEDROL) VIAL IVP SCH (21:00)
[2021-01-03] MEDS: inSUlin ASPART (NovoLOG) 1 UNIT/0.01 ML (CHARGE PER UNIT) SC SCH ×5 (00:26→20:28)
[2021-01-03] MEDS: hydrALAZINE (APESOLINE) 20 MG/ML VIAL IV PRN (00:26)
[2021-01-03] MEDS: LABETALOL HCL 20 MG/4 ML VIAL IV PRN ×2 (02:22→05:42)
[2021-01-03] MEDS: fentaNYL INJ 100 MCG/2 ML AMP IVP PRN ×3 (02:22→20:38)
[2021-01-03] MEDS: RT-ALBUTEROL SULF 2.5 MG/3 ML PRE-MIX VIAL INH SCH ×6 (02:35→22:00)
[2021-01-03] MEDS ORDERED: ENALAPRILAT 2.5 MG/2 ML (VASOTEC) VIAL IV PRN (03:15)
[2021-01-03] MEDS: PANTOPRAZOLE 40 MG (PROTONIX) VIAL IV SCH (05:42)
[2021-01-03] MEDS: FUROSEMIDE 40 MG/4 ML INJ (LASIX) IV SCH ×2 (05:42→16:29)
[2021-01-03] MEDS: CATHETER FLUSH 10 ML SYR IV SCH ×3 (05:43→22:07)
[2021-01-03 05:44] LABS: BASOPHILS % (AUTO) 0 % (0-10); EOSINOPHILS % (AUTO) 0 % (0-10); HEMATOCRIT 35 % (40-54); HEMOGLOBIN 11.3 g/dL (13.3-17.7); LYMPHOCYTES % (AUTO) 7 % (12-44); MEAN CORPUSCULAR HEMOGLOBIN 29 pg (25-34); MEAN CORPUSCULAR HGB CONC 32 g/dL (32-36); MEAN CORPUSCULAR VOLUME 91 fL (80-99); MEAN PLATELET VOLUME 9.6 fL (9.0-12.2); MONOCYTES # (AUTO) 0.8 10^3/uL (0.0-1.0); MONOCYTES % (AUTO) 6 % (0-12); NEUTROPHILS # (AUTO) 11.4 10^3/uL (1.8-7.8); NEUTROPHILS % (AUTO) 86 % (42-75); PLATELET COUNT 374 10^3/uL (130-400); WHITE BLOOD COUNT 13.2 10^3/uL (4.3-11.0)
[2021-01-03 05:56] LABS: POTASSIUM 3.9 MMOL/L (3.6-5.0)
[2021-01-03 05:57] LABS: CALCIUM 9.4 MG/DL (8.5-10.1)
[2021-01-03 06:01] LABS: CREATININE SERUM 1.28 MG/DL (0.60-1.30); PHOSPHORUS 3.1 MG/DL (2.3-4.7)
[2021-01-03] MEDS: POTASSIUM CL 10MEQ/50ML IVPB 50 ML IV SCH (06:07)
[2021-01-03] MEDS: KCL 20 MEQ TAB (K-DUR) PO SCH (06:07)
[2021-01-03] MEDS: MAGNESIUM 1 GM/100 ML IVPB 100 ML IV SCH (06:07)
--- NOTE | 2021-01-03 08:55 | Cardiology Progress Note ---
Subjective Date Seen by Provider: Jan 03, 2021 Time Seen by Provider: 08:50 Subjective/Events-last exam Patient was seen and evaluated at bedside, he was agitated due to feeling thirsty. I helped him drinking cup of water, no signs of choking or coughing after water. Scheduled for speech evaluation today Review of Systems General: No Chills, No Night Sweats; Fatigue, Malaise; No Appetite, No Other HEENT: No Head Aches, No Visual Changes, No Eye Pain, No Ear Pain, No Dysphasia, No Sinus Congestion, No Post Nasal Drip, No Sore Throat, No Other Pulmonary: No Dyspnea, No Cough, No Pleuritic Chest Pain, No Other Cardiovascular: No: Chest Pain, Palpitations, Orthopnea, Paroxysmal Noc. Dyspnea, Edema, Lt Headedness, Other Focused Exam Lactate Level 01/01/21 12:50: Lactic Acid Level 0.80 Objective-Cardiology Exam Last Set of Vital Signs Vital Signs 01/02/21 01/03/21 01/03/21 01/03/21 12:29 08:00 08:35 08:43 Temp 35.8 Pulse 74 Resp 25 B/P (MAP) 158/90 Pulse Ox 93 O2 Delivery High Flow N/C O2 Flow Rate 5.00 FiO2 45 I&O Intake and Output 01/02/21 23:59 Intake Total 400 ml Output Total 2800 ml Balance -2400 ml Intake Oral 0 ml IV Total 350 ml Other 50 ml Output Urine Total 2800 ml General: Alert, Oriented X3, Cooperative HEENT: Atraumatic Neck: Supple Lungs: Clear to Auscultation, Normal Air Movement Heart: Regular Rate, Normal S1, Normal S2 Abdomen: Normal Bowel Sounds Extremities: No Clubbing, No Cyanosis Skin: No Rashes Neuro: Normal Speech Psych/Mental Status: Mental Status NL Results Lab Laboratory Tests 01/03/21 05:35 A/P-Cardiology Admission Diagnosis Acute respiratory failure Non-ST elevation myocardial infarction Hypertension Hyperlipidemia Assessment/Plan Recurrent acute respiratory failure with flash pulmonary edema, was intubated last week then discharged, continue to have recurrent episodes of severe shortness of breath late in the evening then improved later during the day. He was discharged on oxygen, currently return to the hospital intubated. In flash pulmonary edema. Continue with aggressive diuretics, recommend initiate weaning Underlying etiology of his flash pulmonary edema is unknown, BNP is mildly elevated, cardiac enzymes are mildly elevated. No other signs of infection. I recommend pulmonary consultation and evaluation, possible bronchoscopy in addition he was started on Solu-Medrol yesterday, consider using tapering dose of steroids Elevated troponin level, probably type II myocardial infarction secondary to respiratory failure and hypoxemia. History of chest pain with chronic stable angina. Continue to monitor Echo 12/24/20: LVEF 60-65%, mild conc LVH, PASP 20-25 mmHg. Coronary artery disease- Cardiac catheterization on December 09, 2017 revealing multivessel coronary arter y disease with severe stenosis in the proximal circumflex artery with primary stenting using Rocío 3.012 mm expanded to 3.25 mm with excellent results. Severe stenosis in the mid right coronary artery with primary stenting using 2.512 mm Rocío expanded to 2.75 with excellent results. Mild to moderate disease in the proximal LAD, severe stenosis at the ostium of first diagonal artery that is very small artery. Cardiac catheterization done February 04, 2019 revealed total occlusion of the left PDA off the circumflex artery, patent stent in the proximal circumflex. Patent stent in the midright coronary artery. Mild disease in the LAD. Cardiac catheterization was done on December 29, 2020 showing patent stent in the proximal circumflex, right coronary artery. Severe stenosis at the distal circumflex artery, primary stenting using 2.25 x 23 mm expanded to 2.35 mm with excellent results. Has severe stenosis/subtotal occlusion at the distal right posterior descending artery, very small artery not amendable to intervention. Mild to moderate disease in the LAD. 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 Mild bilateral carotid stenosis, ultrasound was done in December 2018, continue to monitor. Family history of heart disease History of psoriasis. Diabetes mellitus, admitted with DKA, has had previous hospitalizations for DKA. Management per medical services Obesity, BMI is 36, we discussed weight loss and exercise CROW KNIGHT MD Jan 03, 2021 08:55
[2021-01-03] MEDS: CLOPIDOGREL 75 MG (PLAVIX) TABLET PO SCH (09:02)
[2021-01-03] MEDS: ENOXAPARIN 300 MG/3 ML (LOVENOX) MULTI-DOSE VIAL SQ SCH (09:03)
[2021-01-03] MEDS: DexMEDEtomidine 250 ML DRIP 250 ML IV SCH (09:03)
--- NOTE | 2021-01-03 09:46 | ST Dysphagia Evaluation ---
Speech Evaluation-General Medical Diagnosis Acute Cardiopulmonary Arrest Therapy Diagnosis Therapy Diagnosis: Oropharyngeal Dysphagia Precautions Precautions: Aspiration Precautions/Isolations: Aspiration Referral Referring Physician: Dr. Grey Medical History Pertinent Medical History: Arthritis, CAD, COPD, DM, HTN, Neuropathy Speech PLF/Current-Dysphagia Prior Level of Function Patient states he ate whatever he wanted before hospitalization. Subjective Patient was very alert and talkative during the Bedside Dysphagia Evaluation. Cognitive Status Patient Orientation: Person, Place, Situation Oral Motor Skills Dentition: Natural, Stained Ability to Follow Directions: Good Patient was NPO pending BDE. Oral Expression Ability: No Impairment Voice Voice Phonatory-Based Quality: Normal Voice Pitch: Normal Voice Loudness: Mildly Loud Face Facial Symmetry: Symmetrical Oral-Facial Assessment Oral-Facial Dentition: Normal Labial Seal Description: Normal Smile: Normal Puff Cheeks: Normal Lingual Protrusion: Normal Lingual ROM: Normal Lingual Strength: Normal Pharynx Velopharyngeal Move.: Normal Volitional Dry Swallow: Yes Voluntary Cough: Yes Can Clear Throat Volitionally: Yes Dysphagia Evaluation Consistencies Presented: Regular, Thin Liquid, Mechanical Soft, Pureed Oral phase is within normal limits for all consistencies. Pharyngeal phase is within normal limits for all consistencies. Dietary Recommendations: Regular Liquid Recommendations: Thin Swallowing Precautions: Alternate Liquids/Solids, Decreased Rate of Oral Intake, Liquids from Cup, Liquids from Straw, Small Bites and Sips, Sitting Upright 90 Degrees, Sitting 90 Degrees 30 Post Intake Dysphagia Evaluation Summary Patient was admitted to the hospital due to acute cardiopulmonary arrest. He was intubated and sedated with extubation yesterday. The patient was given 1/2 tsp of water without difficulty. He was given a cup 1/4 full without difficulty. Patient was presented 1/2 tsp puree, mechanical soft and regular with adequate oral and pharyngeal function. The patient is recommended for a regular diet level with thin liquids. This information was presented to the nurse. No further ST services are warranted at this time. Barriers to Learning Patient's recent health and intubation Speech-Plan Patient/Family Goals Patient/Family Goals: Patient plans to return to his prior living environment. Treatment Plan Speech Therapy Treatment Plan: Discontinue ST Treatment Duration: Jan 03, 2021 Frequency: 1 time per week Estimated Hrs Per Day: .25 hour per day Rehab Potential: Good Barriers to Learning: Patient's recent health and intubation Pt/Family Agrees to Plan: Yes Safety Risks/Education Teaching Recipient: Patient Teaching Methods: Demonstration, Discussion Response to Teaching: Verbalize Understanding, Return Demonstration Education Topics Provided: Diet level and compensatory strategies for safe intake Time Speech Therapy Time In: 08:15 Speech Therapy Time Out: 08:30 Total Billed Time: 15 Billed Treatment Time 1, EDGAR HERMAN [facility] ST Jan 03, 2021 09:46
--- NOTE | 2021-01-03 09:58 | Progress Note - Hospitalist ---
Subjective HPI/CC On Admission Date Seen by Provider: Jan 03, 2021 Time Seen by Provider: 10:00 Is a 60-year-old white male who was just discharged the day before this admission. He had been admitted a week ago with a previous episode of acute cardiopulmonary arrest requiring intubation. Throughout the past hospitalization during the evening the patient would become acutely dyspneic and seem to go into pulmonary edema again. The patient had called EMS yesterday and when they arrived he said that he was going to code. While they never lost a pulse he did become apneic and he was given an oral airway and transported to the emergency room where he was found to be in florid pulmonary edema. Of note the BNP was not markedly elevated nor was the troponin. In discussing the case with Dr. Ortega consideration should be given to a second etiology for pulmonary edema rather than a cardiogenic source. Neurogenic pulmonary edema is a consideration since each time he becomes hypertensive in retrospect. A pheochromocytoma with a catecholamine surge could feasibly be responsible for this. The patient is intubated this morning on an FiO2 of 50% with a PEEP of 8 and good oxygenation. No history is obtained secondary to the patient being intubated. Nursing staff notes that he was following commands earlier when off sedation Subjective/Events-last exam Pt doing a lot better Extubated Home meds restarted On Lasix IV PT and OT ordered Overall doing much better Review of Systems General: Fatigue, Malaise Focused Exam Lactate Level 01/01/21 12:50: Lactic Acid Level 0.80 Objective Exam Vital Signs Vital Signs Date Time Temp Pulse Resp B/P (MAP) Pulse Ox O2 Delivery O2 Flow Rate FiO2 01/04/21 05:00 85 25 151/87 97 High Flow N/C 3.00 01/03/21 20:00 36.2 01/03/21 13:33 100 Capillary Refill : Less Than 3 Seconds General Appearance: No Apparent Distress, WD/WN, Chronically ill Respiratory: Lungs Clear, Normal Breath Sounds Cardiovascular: Regular Rate, Rhythm Neurologic/Psychiatric: Alert, Oriented x3, No Motor/Sensory Deficits, Normal Mood/Affect Results/Procedures Lab Laboratory Tests 01/03/21 05:35 Patient resulted labs reviewed. Imaging: Reviewed Imaging Films, Reviewed Imaging Report Assessment/Plan Assessment and Plan Assess & Plan/Chief Complaint Assessment: Respiratory arrest with flash pulmonary edema possible neurogenic in origin with normal BNP and negative troponin Ventilator dependent Chronically debilitated Diabetes Plan: Ventilator management appreciated Supportive care Work-up in progress 01/03/2021: Supportive care PT and OT Home meds Critical Care Critically Ill Patient DEIRDRE DIANA DO Jan 03, 2021 09:58
--- NOTE | 2021-01-03 10:02 | Tele-ICU Progress Note ---
Subjective Date Seen by a Provider: Jan 03, 2021 Time Seen by a Provider: 10:01 Sepsis Event Evaluation Height, Weight, BMI Height: 5'9.00" Weight: 247lbs. 7.0oz. [id number]; 38.00 BMI Method:Stated Focused Exam Lactate Level 01/01/21 12:50: Lactic Acid Level 0.80 Exam Exam Patient acknowledged, consented, and participated in this virtual visit which was conducted using real time audio/video Vital Signs Date Time Temp Pulse Resp B/P (MAP) Pulse Ox O2 Delivery O2 Flow Rate FiO2 01/03/21 09:03 74 158/90 01/03/21 09:00 80 24 110/50 99 High Flow N/C 5.00 01/03/21 08:43 93 High Flow N/C 5.00 01/03/21 08:35 35.8 01/03/21 08:00 74 25 158/90 95 High Flow N/C 5.00 01/03/21 07:43 High Flow N/C 5.00 01/03/21 07:00 81 133/83 92 High Flow N/C 5.00 01/03/21 07:00 69 01/03/21 06:44 89 High Flow N/C 5.00 01/03/21 06:00 67 12 160/89 97 High Flow N/C 5.00 01/03/21 05:50 High Flow N/C 5.00 01/03/21 05:00 68 10 164/94 98 High Flow N/C 7.00 01/03/21 04:14 95 High Flow N/C 8.00 01/03/21 04:00 67 12 164/95 98 High Flow N/C 7.00 01/03/21 03:00 52 16 168/86 94 High Flow N/C 8.00 01/03/21 02:35 96 High Flow N/C 8.00 01/03/21 02:30 36.6 High Flow N/C 8.00 01/03/21 01:25 77 23 166/95 95 High Flow N/C 8.00 01/03/21 01:05 78 01/03/21 00:30 94 High Flow N/C 8.00 01/03/21 00:29 High Flow N/C 8.00 01/03/21 00:00 78 12 173/116 96 High Flow N/C 10.00 01/02/21 23:19 36.0 High Flow N/C 10.00 01/02/21 23:00 81 11 171/100 96 High Flow N/C 10.00 01/02/21 22:00 82 12 165/101 96 High Flow N/C 10.00 01/02/21 21:00 88 38 171/102 94 High Flow N/C 10.00 01/02/21 20:00 90 High Flow N/C 10.00 01/02/21 20:00 97 15 184/117 91 High Flow N/C 10.00 01/02/21 19:51 90 High Flow N/C 10.00 01/02/21 19:15 101 01/02/21 19:00 36.1 High Flow N/C 7.00 01/02/21 19:00 102 52 181/112 89 High Flow N/C 7.00 01/02/21 18:34 93 High Flow N/C 6.00 01/02/21 18:31 112 155/86 01/02/21 18:00 102 15 170/90 91 High Flow N/C 6.00 01/02/21 17:39 High Flow N/C 6.00 01/02/21 17:00 112 14 170/108 88 High Flow N/C 4.00 01/02/21 16:22 92 High Flow N/C 4.00 01/02/21 16:00 112 16 155/86 91 High Flow N/C 4.00 01/02/21 15:11 37.8 01/02/21 15:00 112 15 187/91 96 High Flow N/C 4.00 01/02/21 14:59 92 High Flow N/C 4.00 01/02/21 14:00 112 17 168/87 92 High Flow N/C 4.00 01/02/21 13:38 High Flow N/C 4.00 01/02/21 13:00 105 01/02/21 13:00 101 13 163/84 94 Mechanical Ventilator 45.00 01/02/21 12:29 95 Mechanical Ventilator 45 01/02/21 12:22 108 23 94 45 01/02/21 12:17 45 01/02/21 12:00 98 23 166/82 94 Mechanical Ventilator 45.00 01/02/21 11:15 37.3 01/02/21 11:00 94 25 164/78 95 Mechanical Ventilator 45.00 01/02/21 10:22 93 24 98 45 I & O 01/03/21 07:00 Intake Total 50 ml Output Total 4400 ml Balance -4350 ml Height & Weight Height: 5'9.00" Weight: 247lbs. 7.0oz. [id number]; 38.00 BMI Method:Stated General Appearance: Chronically ill, Other (Sedated and intubated) Neck: Limited Range of Motion Respiratory: Lungs Clear, Normal Breath Sounds Cardiovascular: Regular Rate, Rhythm Capillary Refill: Less Than 3 Seconds Gastrointestinal: soft, distended Extremity: Pedal Edema Skin: Warm/Dry Results Lab Laboratory Tests 01/02/21 05:25 01/03/21 05:35 Assessment/Plan Assessment/Plan (Tele-ICU Physician , Progress Note ) Available chart/ vitals / labs / Images reviewed Video assessment done using teleICU camera, rest of exam as per RN Discussed with RN , EXAM PER RN Events overnight : on precedex Afebrile FiO2 - I/O = neg 2400 Drips: precedex Pressors: , hemodynamically stable Consultants: Hospital course: (12/22) 60 y/o male with cardiac arrest DKA -TTM initiated then discontinued as pt following commands. Intubated - extubted 12/25 - d/c home 12/30 (12/31) 60M Admitted for AMS, flash pulmonary edema. INTUBATED. 01/01- -AC 24 450 - 45% + 8 PAP 21 01/02 - EXTUBATED , on precedex A/P Acute resp failure with flush pulm edema - intubated 12/31 - extubated 01/02 - ETIOLOGY OF RECURRENT FLUSH PULM EDEMA IS NOT CLEAR, POSSIBLE HYPOXIA WITH SONIA ? - NEED PSG CAD, s/p of prox LCx stenting (Rocío 3x12) and mid RCA stenting - Echo 12/24/20: LVEF 60-65%, mild conc LVH, PASP 20-25 mmHg. -Elevated troponin level, probably type II DE -- Allergy to aspirin causing angioedema; treated chronically with clopidogrel - cards consulted [facility] - with diuresis ( lasix gtt - lasix 40 bid - improving Solumedrol 125 q 12 h - ? indications - stopped Anxiety - on precedex after extubateion - starting xanax , wean off precedex Encephalopathy on amission uneven pupils on presentation- equal now - CTH neg 12/31 , neuro exam nonfocal Frequent ventricular ectopy with PVC and ventricular trigeminy, maintained on beta kelli. Recently tx for Suspected PNA 12/22= 12/27 -sputum cx 12/22 amd 12/31 - Usual upper respiratory linnette + yeast DM II, poorly controlled -ISS Obesity, BMI is 39 Mild bilateral carotid stenosis per u/s of Dec 2018 History of psoriasis. Lines : (Central Line Necessity Reviewed) Thompson: + OG: Nutrition: TF to start if not extubated Analgesia: Anxiety/ delirium VTE Prophylaxis: full dose lovenox Stress Ulcer Prophylaxis: PPi Plans in collaboration with bedside consultants and IM MDs. Discussed with RN to reach out if any questions or concerns A total of 33 minutes of critical care time was devoted to this patient today, required to treat and/or prevent further deterioration of critical care condition ( as above) . THOMAS CRUMP MD Jan 03, 2021 10:02
[2021-01-03] MEDS ORDERED: NITROGLYCERIN 0.4 MG SL TABS BTL 25'S SL PRN (10:15)
[2021-01-03] MEDS ORDERED: metFORMIN 500 MG (GLUCOPHAGE) TAB PO SCH (10:30)
[2021-01-03] MEDS ORDERED: CLOPIDOGREL 75 MG (PLAVIX) TABLET PO SCH (10:30)
[2021-01-03] MEDS ORDERED: FUROSEMIDE 40 MG (LASIX) TAB PO SCH (10:30)
[2021-01-03] MEDS: LOSARTAN 100 MG (COZAAR) TABLET PO SCH (10:51)
[2021-01-03] MEDS: ALPRAZolam 0.5 MG (XANAX) TAB PO PRN ×2 (10:51→20:38)
[2021-01-03] MEDS: DULoxetine 30 MG (CYMBALTA) CAP PO SCH ×2 (10:51→16:30)
[2021-01-03] MEDS: meTOprolol SUCCINATE 100 MG (TOPROL XL) TAB PO SCH (10:52)
[2021-01-03] MEDS: ISOSORBIDE MONONITRATE 30 MG (IMDUR) TAB PO SCH (10:52)
[2021-01-03] MEDS: amLODIPine 10 MG (NORVASC) TAB PO SCH (10:52)
[2021-01-03] MEDS: GLIMEPIRIDE 1 MG (AMARYL) TAB PO SCH (10:52)
[2021-01-03] MEDS: metFORMIN 500 MG (GLUCOPHAGE) TAB PO SCH ×3 (10:52→17:23)
[2021-01-03] MEDS ORDERED: MTP100TCR PO ×2 (10:57)
[2021-01-03] MEDS ORDERED: PRD20T PO (10:57)
[2021-01-03] MEDS ORDERED: ISOS30TA82 PO ×2 (10:57)
[2021-01-03] MEDS ORDERED: NITR0.4T39 SL ×2 (10:57)
[2021-01-03] MEDS ORDERED: CLOP75TA69 PO ×2 (10:57)
[2021-01-03] MEDS ORDERED: RIVA15TA2 PO ×2 (10:57)
--- NOTE | 2021-01-03 12:27 | Occupational Therapy Eval ---
OT Evaluation-General/PLF Medical Diagnosis Admission Date Dec 31, 2020 at 17:17 Medical Diagnosis: Acute Cardiopulmonary Arrest Onset Date: Dec 31, 2020 Therapy Diagnosis Therapy Diagnosis: decreased ADL Status Height/Weight Height (Feet): 5 Height (Inches): 9.00 Weight (Pounds): 247 Weight (Ounces): 7.0 Precautions Precautions/Isolations: Aspiration Referral Physician: Matilda Referral Reason: Evaluation/Treatment Medical History Pertinent Medical History: Arthritis, CAD, COPD, DM, HTN, Neuropathy Social History Home: Single Level Current Living Status: Alone Entry Into Home: Stairs Without Railing Steps Into Home: 4 ADL-Prior Level of Function SCALE: Activities may be completed with or without assistive devices. 4-Dsawlomqdb-nvsbwsa completes the activity by him/herself with no assistance from a helper. 5-Set-up or Clean-up Assistance-helper sets up or cleans up; patient completes activity. Donahue assists only prior to or following the activity. 4-Supervision or Touching Assistance-helper provides verbal cues and/or touching/steadying and/or contact guard assistance as patient completes activity. Assistance may be provided throughout the activity or intermittently. 3-Partial/Moderate Assistance-helper does LESS THAN HALF the effort. Donahue lifts, holds or supports trunk or limbs, but provides less than half the effort. 2-Substantial/Maximal Assistance-helper does MORE THAN HALF the effort. Donahue lifts or holds trunk or limbs and provides more than half the effort. 8-Fdndoruvf-dscihc does ALL the effort. Patient does none of the effort to complete the activity. Or, the assistance of 2 or more helpers is required for the patient to complete the activity. If activity was not attempted, code reason: 7-Patient Refused. 9-Not Applicable-not attempted and the patient did not perform the activity before the current illness, exacerbation or injury. 10-Not Attempted due to Environmental Limitations-(lack of equipment, weather restraints, etc.). 88-Not Attempted due to Medical Conditions or Safety Concerns. ADL PLOF Comments Pt reports IND with ADLs at PLOF with dressing and showering, he primarily used a walking stick for mobility. Self Care: Independent Functional Cognition: Independent DME/Equipment: Bath Chair, Grab Bars, Tub/Shower OT Current Status Subjective Pt in bed, bed alarm activated. Pt agreeable to OT eval. Pt slightly confused, talking about how he doesn't want Metformin anymore, talking slightly slower and a little slurred. Pt's nurse aware and correlates this with medications Mental Status/Objective Patient Orientation: Person, Confused, Place, Situation Attachments: IV Current Upper Extremity ROM WFL, BUE shoulder flexion to approx 150 degrees. Pt unable to perform bilateral shoulder flexion at same time, as it causes too much pain. Upper Extremity Coordination WFL Upper Extremity Strength grossly 3+/5 ADL-Treatment Eating (QC): 5 (Pt able to take drink from cup) Other Treatments Pt in bed, agreeable to OT Tx. Pt confused OT for nursing staff, stating he does not want Metformin. OT introduced self to pt and educated him on purpose and benefit of OT. Pt provided information about PLOF and medical history since he was discharged last week. Pt able to take a drink from cup independently. OT assisted pt with placing cup on tray table. In order to increase BUE strength and activity tolerance, pt completed the following BUE exercises: x5 shoulder flexion, x10 elbow flexion/extension and x10 finger flexion/extension. Pt unable to perform overhead shoulder flexion BUEs at same time as it increases his pain. Pt encouraged/educated on importance of exercises, and to increase reps as tolerated. Pt c/o neck pain at end of session, stating his neck is "". OT informed nurse. Post tx, pt in bed, call light in reach and all needs met. Bed alarm on. 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 2=Patient will verbalize/demonstrate understanding of assistive devices/modifications for ADL. 3=Patient will improve strength/tolerance for activity to enable patient to perform ADL's. OT Education/Plan Problem List/Assessment Assessment: Decreased Activ Tolerance, Decreased UE Strength, Impaired Funct Balance, Impaired I ADL's, Impaired Self-Care Skills Discharge Recommendations Plan/Recommendations: Continue POC Treatment Plan/Plan of Care Patient would benefit from OT for education, treatment and training to promote independence in ADL's, mobility, safety and/or upper extremity function for ADL's. Plan of Care: ADL Retraining, Functional Mobility, UE Funct Exercise/Act Treatment Duration: Jan 13, 2021 Frequency: 5 times per week Estimated Hrs Per Day: .25 hour per day Rehab Potential: Good Time/GCodes Start Time: 11:00 Stop Time: 11:16 Total Time Billed (hr/min): 16 Billed Treatment Time 1, DANIKA BAEZA OT Jan 03, 2021 12:27
[2021-01-03] MEDS ORDERED: TOBRA/DEXAMETH (TOBRADEX) OPHTH OINT 3.5 GM TUBE OP SCH (13:00)
[2021-01-03 13:33] VITALS: BP 148/100
[2021-01-03] MEDS: inSUlin ASPART (NovoLOG) 1 UNIT/0.01 ML (CHARGE PER UNIT) SQ SCH ×2 (14:04→20:38)
--- NOTE | 2021-01-03 14:38 | Physical Therapy Evaluation ---
PT Evaluation-General Medical Diagnosis Admission Date Dec 31, 2020 at 17:17 Medical Diagnosis: Acute Cardiopulmonary Arrest Onset Date: Dec 31, 2020 Therapy Diagnosis Therapy Diagnosis: generalized weakness/debility Height/Weight Height (Feet): 5 Height (Inches): 9.00 Weight (Pounds): 247 Weight (Ounces): 7.0 Precautions Precautions/Isolations: Aspiration, Fall Prevention Referral Physician: Matilda Reason for Referral: Evaluation/Treatment Medical History Pertinent Medical History: Arthritis, CAD, COPD, DM, HTN, Neuropathy Current History EMS secondary patient found unresponsive Reviewed History: Yes Social History Home: Single Level Current Living Status: Alone Entry Into Home: Stairs Without Railing PT Steps Into Home: 4 Prior Prior Level of Function SCALE: Activities may be completed with or without assistive devices. 2-Huyzgeoeyd-eushepg completes the activity by him/herself with no assistance from a helper. 5-Set-up or Clean-up Assistance-helper sets up or cleans up; patient completes activity. [place] assists only prior to or following the activity. 4-Supervision or Touching Assistance-helper provides verbal cues and/or touching/steadying and/or contact guard assistance as patient completes activity. Assistance may be provided throughout the activity or intermittently. 3-Partial/Moderate Assistance-helper does LESS THAN HALF the effort. [place] lifts, holds or supports trunk or limbs, but provides less than half the effort. 2-Substantial/Maximal Assistance-helper does MORE THAN HALF the effort. [place] lifts or holds trunk or limbs and provides more than half the effort. 0-Xvpbcvzua-vgmmia does ALL the effort. Patient does none of the effort to complete the activity. Or, the assistance of 2 or more helpers is required for the patient to complete the activity. If activity was not attempted, code reason: 7-Patient Refused. 9-Not Applicable-not attempted and the patient did not perform the activity before the current illness, exacerbation or injury. 10-Not Attempted due to Environmental Limitations-(lack of equipment, weather restraints, etc.). 88-Not Attempted due to Medical Conditions or Safety Concerns. Bed Mobility: 6 Transfers (B,C,W/C): 6 Gait: 6 Stairs: 6 Indoor Mobility (Ambulation): Independent Stairs: Independent Prior Devices Use: None PT Evaluation-Current Subjective Patient agrees to PT. Objective Patient Orientation: Person, Time, Situation Attachments: Oxygen, Thompson Catheter, IV ROM/Strength ROM Lower Extremities bilateral LE WFL Strength Lower Extremities 3/5 grossly bilateral LE Integumentary/Posture Integumentary refer to nursing notes Bladder Incontinence: Thompson Cath Posture slightly kyphotic Neuromuscular (Tone, Coordination, Reflexes) diminished coordination due to continued mild sedation due to agitation (recently extubated) Sensory Vision: Functional Hearing: Functional Transfers Roll Left to Right (QC): 2 Sit to Lying (QC): 2 Lying to Sitting/Side of Bed(Q: 2 Sit to Stand (QC): 2 Chair/Epl-ah-Xzhne Xfer(QC): 2 Toilet Transfer (QC): 2 very unsteady with refusal to utilize FWW (gait belt and PT assist with bilateral knee blocking) Gait Does the Patient Walk?: No and Walking Goal IS indicated Mode of Locomotion: Walk Anticipated Mode of Locomotion: Walk Distance: 5' Gait Assistive Device: None Comments/Gait Description very unsteady and refused to use FWW Wheelchair Training Does the Pt Use a Wheelchair?: No Balance Sitting Static: Fair Sitting Dynamic: Fair Standing Static: Poor Standing Dynamic: Poor Picking up an Object (QC): 88 Treatment [facility] with PT max assist to block knees and use of gait belt with patient very retropulsive. Patient highly unaware of safety concerns. Assessment/Needs 60 y.o. male, will benefit from skilled PT to address functional strength and mobility to improve current LOF to safely return to home or care facility at maximum LOF. Rehab Potential: Fair PT Nursing Home Goals [facility] [employer] Goals PT [facility] Goals Time Frame: Jan 21, 2021 Roll Left & Right (QC): 6 Sit to Lying (QC): 6 Lying-Sitting on Side/Bed(QC): 6 Sit to Stand (QC): 6 Chair/Lop-ao-Fukal Xfer(QC): 6 Toilet Transfer (QC): 6 Walk 10 feet (QC): 4 Walk 50ft with 2 Turns (QC): 4 Walk 150 ft (QC): 4 PT Plan Problem List Problem List: Activity Tolerance, Functional Strength, Safety, Balance, Gait, Transfer, Bed Mobility Treatment/Plan Treatment Plan: Continue Plan of Care Treatment Plan: Bed Mobility, Education, Functional Activity Paul, Functional Strength, Gait, Safety, Therapeutic Exercise, Transfers Treatment Duration: Jan 21, 2021 Frequency: 6 times per week Estimated Hrs Per Day: .25 hour per day Patient and/or Family Agrees t: Yes Time/GCodes Time In: 1300 Time Out: 1340 Total Billed Treatment Time: 40 Total Billed Treatment 1 visit EVModC 16 min FA x 2 24 min DARLENE CARREON PT Jan 03, 2021 14:38
[2021-01-03] MEDS: RIVAROXABAN 15 MG TABLET (XARELTO) PO SCH (16:30)
[2021-01-03] MEDS ORDERED: sitaGLIPtin/METFORMIN 50/1000 MG (JANUMET) NON FORM PO SCH (17:00)
--- NOTE | 2021-01-03 21:47 | Tele-ICU Progress Note ---
Subjective Date Seen by a Provider: Jan 03, 2021 Time Seen by a Provider: 03:13 Subjective/Events-last exam called for CP 11/27, sounds chronic present at least one month, EKG ok, slight rise in trop, on Imdur at home and now in ICU will give 2 mg IVP morphine for severe pain Sepsis Event Evaluation Height, Weight, BMI Height: 5'9.00" Weight: 247lbs. 7.0oz. [id number]; 38.00 BMI Method:Stated Focused Exam Lactate Level 01/01/21 12:50: Lactic Acid Level 0.80 Exam Exam Patient acknowledged, consented, and participated in this virtual visit which was conducted using real time audio/video Vital Signs Date Time Temp Pulse Resp B/P (MAP) Pulse Ox O2 Delivery O2 Flow Rate FiO2 01/03/21 20:00 36.2 01/03/21 19:39 36.0 82 23 147/86 92 High Flow N/C 3.00 01/03/21 19:02 83 01/03/21 18:53 94 High Flow N/C 3.00 01/03/21 18:00 82 27 144/90 93 High Flow N/C 3.00 01/03/21 17:00 75 28 134/63 97 High Flow N/C 3.00 01/03/21 16:00 70 21 123/86 98 High Flow N/C 3.00 01/03/21 16:00 35.7 01/03/21 15:08 95 High Flow N/C 3.00 01/03/21 15:00 68 12 115/73 95 High Flow N/C 3.00 01/03/21 14:45 70 18 116/78 94 01/03/21 14:30 68 23 104/61 92 01/03/21 14:15 63 11 107/73 99 01/03/21 14:12 93 High Flow N/C 3.00 01/03/21 14:00 63 14 99/61 96 High Flow N/C 3.00 01/03/21 13:45 65 15 88/54 94 01/03/21 13:33 36.4 107 95 100 01/03/21 13:30 62 12 111/77 94 01/03/21 13:15 67 33 98 01/03/21 13:00 67 12 146/94 93 High Flow N/C 3.00 01/03/21 12:45 64 13 140/115 89 01/03/21 12:30 60 15 154/97 95 01/03/21 12:22 63 01/03/21 12:15 63 26 147/95 92 01/03/21 12:00 12 154/86 92 High Flow N/C 3.00 01/03/21 11:45 62 15 148/83 93 01/03/21 11:39 37.0 01/03/21 11:30 63 14 165/94 96 01/03/21 11:26 95 High Flow N/C 3.00 01/03/21 11:25 High Flow N/C 3.00 01/03/21 11:15 62 14 167/97 96 01/03/21 11:00 64 16 148/96 93 High Flow N/C 5.00 01/03/21 10:26 96 High Flow N/C 5.00 01/03/21 10:00 65 21 159/90 94 High Flow N/C 5.00 01/03/21 09:03 74 158/90 01/03/21 09:00 80 24 110/50 99 High Flow N/C 5.00 01/03/21 08:43 93 High Flow N/C 5.00 01/03/21 08:35 35.8 01/03/21 08:00 74 25 158/90 95 High Flow N/C 5.00 01/03/21 07:43 High Flow N/C 5.00 01/03/21 07:00 81 133/83 92 High Flow N/C 5.00 01/03/21 07:00 69 01/03/21 06:44 89 High Flow N/C 5.00 01/03/21 06:00 67 12 160/89 97 High Flow N/C 5.00 01/03/21 05:50 High Flow N/C 5.00 01/03/21 05:00 68 10 164/94 98 High Flow N/C 7.00 01/03/21 04:14 95 High Flow N/C 8.00 01/03/21 04:00 67 12 164/95 98 High Flow N/C 7.00 01/03/21 03:00 52 16 168/86 94 High Flow N/C 8.00 01/03/21 02:35 96 High Flow N/C 8.00 01/03/21 02:30 36.6 High Flow N/C 8.00 01/03/21 01:25 77 23 166/95 95 High Flow N/C 8.00 01/03/21 01:05 78 01/03/21 00:30 94 High Flow N/C 8.00 01/03/21 00:29 High Flow N/C 8.00 01/03/21 00:00 78 12 173/116 96 High Flow N/C 10.00 01/02/21 23:19 36.0 High Flow N/C 10.00 01/02/21 23:00 81 11 171/100 96 High Flow N/C 10.00 01/02/21 22:00 82 12 165/101 96 High Flow N/C 10.00 I & O 01/03/21 07:00 Intake Total 50 ml Output Total 4400 ml Balance -4350 ml Height & Weight Height: 5'9.00" Weight: 247lbs. 7.0oz. [id number]; 38.00 BMI Method:Stated General Appearance: Chronically ill, Other (Sedated and intubated) Neck: Limited Range of Motion Respiratory: Lungs Clear, Normal Breath Sounds Cardiovascular: Regular Rate, Rhythm Capillary Refill: Less Than 3 Seconds Gastrointestinal: soft, distended Extremity: Pedal Edema Skin: Warm/Dry Results Lab Laboratory Tests 01/02/21 05:25 01/03/21 05:35 Assessment/Plan Assessment/Plan chest wall pain vs angina, sounds more like chest wall pain, will give IVP morphine PRN Critical Care: Critically Ill Patient Time spent with patient (mins): 25 HAIM GUTIERREZ MD Jan 03, 2021 21:47
[2021-01-03] MEDS: morphine INJ 4 MG/ML 1 ML (VIAL/SYRINGE) IV PRN (22:08)
[2021-01-03] MEDS: MUPIROCIN 2% OINT 22 GM (BACTROBAN) TUBE TP SCH (22:11)
[2021-01-03] MEDS: CYCLOBENZAPRINE 10 MG (FLEXERIL) TAB PO PRN (23:15)
[2021-01-04] MEDS: fentaNYL INJ 100 MCG/2 ML AMP IVP PRN (00:20)
[2021-01-04] MEDS: RT-ALBUTEROL SULF 2.5 MG/3 ML PRE-MIX VIAL INH SCH ×6 (02:27→22:18)
[2021-01-04] MEDS: hydrALAZINE (APESOLINE) 20 MG/ML VIAL IV PRN (02:30)
[2021-01-04] MEDS: morphine INJ 4 MG/ML 1 ML (VIAL/SYRINGE) IV PRN ×2 (05:17→20:55)
[2021-01-04 05:49] LABS: BASOPHILS % (AUTO) 0 % (0-10); EOSINOPHILS # (AUTO) 0.3 10^3/uL (0.0-0.3); EOSINOPHILS % (AUTO) 2 % (0-10); HEMATOCRIT 35 % (40-54); HEMOGLOBIN 11.4 g/dL (13.3-17.7); LYMPHOCYTES # (AUTO) 1.4 10^3/uL (1.0-4.0); LYMPHOCYTES % (AUTO) 12 % (12-44); MEAN CORPUSCULAR HEMOGLOBIN 29 pg (25-34); MEAN CORPUSCULAR HGB CONC 33 g/dL (32-36); MEAN CORPUSCULAR VOLUME 89 fL (80-99); MEAN PLATELET VOLUME 9.4 fL (9.0-12.2); MONOCYTES # (AUTO) 0.7 10^3/uL (0.0-1.0); MONOCYTES % (AUTO) 6 % (0-12); NEUTROPHILS # (AUTO) 8.9 10^3/uL (1.8-7.8); NEUTROPHILS % (AUTO) 79 % (42-75); PLATELET COUNT 427 10^3/uL (130-400); WHITE BLOOD COUNT 11.3 10^3/uL (4.3-11.0)
[2021-01-04] MEDS: MAGNESIUM 1 GM/100 ML IVPB 100 ML IV SCH ×3 (05:53→09:38)
[2021-01-04] MEDS: KCL 20 MEQ TAB (K-DUR) PO SCH (05:53)
[2021-01-04] MEDS: POTASSIUM CL 10MEQ/50ML IVPB 50 ML IV SCH (05:53)
[2021-01-04 06:10] LABS: POTASSIUM 3.2 MMOL/L (3.6-5.0)
[2021-01-04 06:11] LABS: CALCIUM 8.5 MG/DL (8.5-10.1)
[2021-01-04 06:15] LABS: PHOSPHORUS 2.9 MG/DL (2.3-4.7)
[2021-01-04 06:16] LABS: CREATININE SERUM 1.07 MG/DL (0.60-1.30)
[2021-01-04 06:18] LABS: MAGNESIUM 1.3 MG/DL (1.6-2.4)
[2021-01-04] MEDS: FUROSEMIDE 40 MG/4 ML INJ (LASIX) IV SCH ×2 (06:19→17:23)
[2021-01-04] MEDS: PANTOPRAZOLE 40 MG (PROTONIX) VIAL IV SCH (06:19)
[2021-01-04] MEDS: inSUlin ASPART (NovoLOG) 1 UNIT/0.01 ML (CHARGE PER UNIT) SC SCH (06:19)
[2021-01-04] MEDS: CATHETER FLUSH 10 ML SYR IV SCH ×3 (06:19→21:02)
[2021-01-04] MEDS ORDERED: KCL 20 MEQ TAB (K-DUR) PO ONE ×2 (08:00→10:00)
[2021-01-04] MEDS: metFORMIN 500 MG (GLUCOPHAGE) TAB PO SCH ×2 (08:03→17:14)
[2021-01-04] MEDS: amLODIPine 10 MG (NORVASC) TAB PO SCH (08:22)
[2021-01-04] MEDS: meTOprolol SUCCINATE 100 MG (TOPROL XL) TAB PO SCH (08:22)
[2021-01-04] MEDS: LOSARTAN 100 MG (COZAAR) TABLET PO SCH (08:22)
[2021-01-04] MEDS: CLOPIDOGREL 75 MG (PLAVIX) TABLET PO SCH (08:22)
[2021-01-04] MEDS: inSUlin ASPART (NovoLOG) 1 UNIT/0.01 ML (CHARGE PER UNIT) SQ SCH ×3 (08:22→20:57)
[2021-01-04] MEDS: KCL 10 MEQ TAB (MICRO K) PO SCH (08:22)
[2021-01-04] MEDS: ISOSORBIDE MONONITRATE 30 MG (IMDUR) TAB PO SCH (08:22)
[2021-01-04] MEDS: DULoxetine 30 MG (CYMBALTA) CAP PO SCH ×2 (08:22→17:23)
[2021-01-04] MEDS: GLIMEPIRIDE 1 MG (AMARYL) TAB PO SCH (08:22)
[2021-01-04] MEDS: MUPIROCIN 2% OINT 22 GM (BACTROBAN) TUBE TP SCH ×2 (08:23→21:01)
--- NOTE | 2021-01-04 10:23 | Physical Therapy Daily Note ---
PT Daily Note-Current Subjective Patient reports 10/10 pain in left shoulder that radiates to the sternum. Patient agreeable to treatment and in no observable pain at the time of treatment. Mental Status Attachments: Thompson Catheter, IV Transfers SCALE: Activities may be completed with or without assistive devices. 6-Xkkpulqlon-rquqcnn completes the activity by him/herself with no assistance from a helper. 5-Set-up or Clean-up Assistance-helper sets up or cleans up; patient completes activity. [place] assists only prior to or following the activity. 4-Supervision or Touching Assistance-helper provides verbal cues and/or touching/steadying and/or contact guard assistance as patient completes activity. Assistance may be provided throughout the activity or intermittently. 3-Partial/Moderate Assistance-helper does LESS THAN HALF the effort. [place] lifts, holds or supports trunk or limbs, but provides less than half the effort. 2-Substantial/Maximal Assistance-helper does MORE THAN HALF the effort. [place] lifts or holds trunk or limbs and provides more than half the effort. 8-Pgveqnogk-rvusur does ALL the effort. Patient does none of the effort to complete the activity. Or, the assistance of 2 or more helpers is required for the patient to complete the activity. If activity was not attempted, code reason: 7-Patient Refused. 9-Not Applicable-not attempted and the patient did not perform the activity before the current illness, exacerbation or injury. 10-Not Attempted due to Environmental Limitations-(lack of equipment, weather restraints, etc.). 88-Not Attempted due to Medical Conditions or Safety Concerns. Roll Left & Right (QC): 2 Sit to Lying (QC): 3 Lying to Sitting/Side of Bed(Q: 3 Sit to Stand (QC): 3 Chair/Wgy-pl-Uafny Xfer(QC): 3 Gait Training Does the Patient Walk?: Yes Distance: 5 ft Walk 10 feet (QC): 88 Gait Assistive Device: FWW Exercises Supine Ex: Ankle pumps, Quad Set, Glut sets Supine Reps: 20 Seated Therapy Exercises: Long arc quads, Hip flexion, Hamstring Curls, Hip abd/add Seated Reps: 20 Assessment Current Status: Fair Progress Patient lying supine in bed upon PT arrival, agreeable to treatment. Patient performs bed mobility with max A and all observed transfers with mod A. Patient ambulates 5 feet with FWW with mod A and verbal cues for safety, progression, posture and not to sit too soon. Patient attempts to sit at the midway point between the bed and chair. Max A and verbal cues to keep from sitting. Patient in the chair post and performs LE therapeutic exercise. Patient in chair post treatment with call light in hand, all needs met, nursing notified. PT Halfway Goals Halfway Goals PT Halfway Goals Time Frame: Jan 21, 2021 Roll Left & Right (QC): 6 Sit to Lying (QC): 6 Lying-Sitting on Side/Bed(QC): 6 Sit to Stand (QC): 6 Chair/Qfh-se-[place] Xfer(QC): 6 Toilet Transfer (QC): 6 Walk 10 feet (QC): 4 Walk 50ft with 2 Turns (QC): 4 Walk 150 ft (QC): 4 PT Plan Treatment/Plan Treatment Plan: Continue Plan of Care Treatment Plan: Bed Mobility, Education, Functional Activity Paul, Functional Strength, Gait, Safety, Therapeutic Exercise, Transfers Treatment Duration: Jan 21, 2021 Frequency: 6 times per week Estimated Hrs Per Day: .25 hour per day Patient and/or Family Agrees t: Yes Safety Risks/Education Patient Education: Gait Training, Transfer Techniques Teaching Recipient: Patient Teaching Methods: Demonstration, Discussion Response to Teaching: Verbalize Understanding, Return Demonstration Time/GCodes Time In: 930 Time Out: 957 Total Billed Treatment Time: 27 Total Billed Treatment Visit, Madeline Hart JOHN A PT Jan 04, 2021 10:22
--- NOTE | 2021-01-04 11:25 | Cardiology Progress Note ---
Subjective Date Seen by Provider: Jan 04, 2021 Time Seen by Provider: 11:23 Subjective/Events-last exam Patient is on bedside commode, no new complaints. Denies any chest pain of dyspnea. Review of Systems General: No Chills, No Night Sweats, No Fatigue; Malaise; No Appetite, No Other HEENT: No Head Aches, No Visual Changes, No Eye Pain, No Ear Pain, No Dysphasia, No Sinus Congestion, No Post Nasal Drip, No Sore Throat, No Other Pulmonary: Dyspnea; No Cough, No Pleuritic Chest Pain, No Other Cardiovascular: Chest Pain; No: Palpitations, Orthopnea, Paroxysmal Noc. Dyspnea, Edema, Lt Headedness, Other Focused Exam Lactate Level Objective-Cardiology Exam Last Set of Vital Signs Vital Signs 01/03/21 01/04/21 13:33 13:00 Temp 36.2 Pulse 94 Resp 20 B/P (MAP) 101/65 Pulse Ox 92 O2 Delivery High Flow N/C O2 Flow Rate 3.00 FiO2 100 I&O Intake and Output 01/03/21 23:59 Intake Total 1630 ml Output Total 5375 ml Balance -3745 ml Intake Oral 1380 ml IV Total 250 ml Output Urine Total 5375 ml # Bowel Movements 2 General: Alert, Oriented X3, Cooperative HEENT: Atraumatic Neck: Supple Lungs: Clear to Auscultation, Normal Air Movement Heart: Regular Rate, Normal S1, Normal S2 Abdomen: Normal Bowel Sounds Extremities: No Clubbing, No Cyanosis Skin: No Rashes Neuro: Normal Speech Psych/Mental Status: Mental Status NL Results Lab Laboratory Tests 01/04/21 05:25 A/P-Cardiology Admission Diagnosis Acute respiratory failure Non-ST elevation myocardial infarction Hypertension Hyperlipidemia Assessment/Plan Recurrent acute respiratory failure with flash pulmonary edema, was intubated last week then discharged, continue to have recurrent episodes of severe shortness of breath late in the evening then improved later during the day. He was discharged on oxygen, currently return to the hospital intubated. In flash pulmonary edema. Continue with aggressive diuretics, recommend initiate weaning Underlying etiology of his flash pulmonary edema is unknown, BNP is mildly elevated, cardiac enzymes are mildly elevated. No other signs of infection. Recommend possible bronchoscopy in addition he was started on Solu-Medrol yesterday, consider using tapering dose of steroids Chest pain, mild elevation in troponin, probably type II myocardial infarction secondary to respiratory failure and hypoxemia. History of chest pain with chronic stable angina. Restart isosorbide and evaluate tolerance and response Echo 12/24/20: LVEF 60-65%, mild conc LVH, PASP 20-25 mmHg. Coronary artery disease- Cardiac catheterization on December 09, 2017 revealing multivessel coronary artery disease with severe stenosis in the proximal circumflex artery with primary stenting using Rocío 3.012 mm expanded to 3.25 mm with excellent results. Severe stenosis in the mid right coronary artery with primary stenting using 2.512 mm Rocío expanded to 2.75 with excellent results. Mild to moderate disease in the proximal LAD, severe stenosis at the ostium of first diagonal artery that is very small artery. Cardiac catheterization done February 04, 2019 revealed total occlusion of the left PDA off the circumflex artery, patent stent in the proximal circumflex. Patent stent in the midright coronary artery. Mild disease in the LAD. Cardiac catheterization was done on December 29, 2020 showing patent stent in the proximal circumflex, right coronary artery. Severe stenosis at the distal circumflex artery, primary stenting using 2.25 x 23 mm expanded to 2.35 mm with excellent results. Has severe stenosis/subtotal occlusion at the distal right posterior descending artery, very small artery not amendable to intervention. Mild to moderate disease in the LAD. Plavix and Xarelto restarted. Allergy to aspirin causing angioedema, Hypertension, restart home medication and monitor blood pressure Hyperlipidemia-continue to monitor lipids Frequent ventricular ectopy with PVC and ventricular trigeminy, maintained on beta kelli. Mild bilateral carotid stenosis, ultrasound was done in December 2018, continue to monitor. Family history of heart disease History of psoriasis. Diabetes mellitus, admitted with DKA, has had previous hospitalizations for DKA. Management per medical services Obesity, BMI is 36, we discussed weight loss and exercise Supervisory-Addendum Brief Supervisory Addendum Participated in pt care: history, MDM, physical Personally performed: exam, history, MDM Care discussed with: ONOFRE Results interpretation: Verified all documentation Notes: Patient was seen and evaluated with Marsha, examination performed, management plan was discussed, agree with the current scribed note, I made few changes to the note using Italic font MARSHA ZHANG Jan 04, 2021 11:25 CROW KNIGHT MD Jan 04, 2021 14:55
--- NOTE | 2021-01-04 12:57 | Occupational Ther Daily Note ---
OT Current Status-Daily Note Subjective Pt up in recliner, finished with lunch. Pt agreeable to OT tx. Pt reports increased pain in L shoulder (started sometime between yesterday and this morning). pt unable to raise arm more than 10 degrees off of the armrest, reports 10/10 pain in shoulder radiating to the scapula. OT notified nurse. Mental Status/Objective Patient Orientation: Person, Place, Time, Situation ADL-Treatment Therapy Code Descriptions/Definitions Functional [place] Measure: 0=Not Assessed/NA 4=Minimal Assistance 1=Total Assistance 5=Supervision or Setup 2=Maximal Assistance 6=Modified [place] 3=Moderate Assistance 7=Complete IndependenceSCALE: Activities may be completed with or without assistive devices. 4-Bvzjfsqbae-zhiqxsi completes the activity by him/herself with no assistance from a helper. 5-Set-up or Clean-up Assistance-helper sets up or cleans up; patient completes activity. [place] assists only prior to or following the activity. 4-Supervision or Touching Assistance-helper provides verbal cues and/or touching/steadying and/or contact guard assistance as patient completes activity. Assistance may be provided throughout the activity or intermittently. 3-Partial/Moderate Assistance-helper does LESS THAN HALF the effort. [place] lifts, holds or supports trunk or limbs, but provides less than half the effort. 2-Substantial/Maximal Assistance-helper does MORE THAN HALF the effort. [place] lifts or holds trunk or limbs and provides more than half the effort. 0-Aggsroruw-wicerx does ALL the effort. Patient does none of the effort to complete the activity. Or, the assistance of 2 or more helpers is required for the patient to complete the activity. If activity was not attempted, code reason: 7-Patient Refused. 9-Not Applicable-not attempted and the patient did not perform the activity before the current illness, exacerbation or injury. 10-Not Attempted due to Environmental Limitations-(lack of equipment, weather restraints, etc.). 88-Not Attempted due to Medical Conditions or Safety Concerns. Eating (QC): 6 (IND with lunch.) Toileting Hygiene (QC): 1 (catheter) Other Treatment Pt up in recliner, agreeable to OT Tx. OT tx focused on increasing BUE Strength and activity tolerance. Pt completed x10 reps of the following: RUE shoulder fl exion, BUE elbow flexion/extension, and finger flexion/extension. Pt attempted to perform LUE shoulder flexion, on able to perform ~10 degrees of motion, c/o 10/10 pain. Pt states pain started between yesterday and today. OT notified nurse. Post tx, pt in recliner, call light in reach and all needs met. Education OT Patient Education: Correct positioning, Energy conservation, Exercise program, Modified ADL techniques, Progress toward Goal/Update tx plan, Purpose of tx/functional activities, Rehab process Teaching Recipient: Patient Teaching Methods: Discussion Response to Teaching: Verbalize Understanding OT Mcfp Goals Machine Heel Seat Fitter Goals Time Frame: Jan 13, 2021 Eating (QC): 6 Oral Hygiene (QC): 6 Toileting Hygiene (QC): 6 Shower/Bathe Self (QC): 6 Upper Body Dressing (QC): 6 Lower Body Dressing (QC): 6 On/Off Footwear (QC): 6 Additional Goals: 1-Demonstrate ADL Tasks, 2-Verbalize Understanding, 3- ImproveStrength/Paul 1=Demonstrate adherence to instructed precautions during ADL tasks. 2=Patient will verbalize/demonstrate understanding of assistive devices/modifications for ADL. 3=Patient will improve strength/tolerance for activity to enable patient to perform ADL's. OT Education/Plan Problem List/Assessment Assessment: Decreased Activ Tolerance, Decreased UE Strength, Impaired Funct Balance, Impaired I ADL's, Impaired Self-Care Skills, Restricted Funct UE ROM Discharge Recommendations Plan/Recommendations: Continue POC Treatment Plan/Plan of Care Patient would benefit from OT for education, treatment and training to promote independence in ADL's, mobility, safety and/or upper extremity function for ADL's. Plan of Care: ADL Retraining, Functional Mobility, UE Funct Exercise/Act Treatment Duration: Jan 13, 2021 Frequency: 5 times per week Estimated Hrs Per Day: .25 hour per day Rehab Potential: Fair Time/GCodes Start Time: 12:35 Stop Time: 12:46 Total Time Billed (hr/min): 11 Billed Treatment Time 1, EX DANIKA LOERA OT Jan 04, 2021 12:57
--- NOTE | 2021-01-04 12:57 | Progress Note - Hospitalist ---
KATE BERGER 01/04/21 1257: Subjective HPI/CC On Admission Date Seen by Provider: Jan 04, 2021 Time Seen by Provider: 08:56 Is a 60-year-old white male who was just discharged the day before this admission. He had been admitted a week ago with a previous episode of acute cardiopulmonary arrest requiring intubation. Throughout the past hospitalization during the evening the patient would become acutely dyspneic and seem to go into pulmonary edema again. The patient had called EMS yesterday and when they arrived he said that he was going to code. While they never lost a pulse he did become apneic and he was given an oral airway and transported to the emergency room where he was found to be in florid pulmonary edema. Of note the BNP was not markedly elevated nor was the troponin. In discussing the case with Dr. Ortega consideration should be given to a second etiology for pulmonary edema rather than a cardiogenic source. Neurogenic pulmonary edema is a consideration since each time he becomes hypertensive in retrospect. A pheochromocytoma with a catecholamine surge could feasibly be responsible for this. The patient is intubated this morning on an FiO2 of 50% with a PEEP of 8 and good oxygenation. No history is obtained secondary to the patient being intubated. Nursing staff notes that he was following commands earlier when off sedation Subjective/Events-last exam Today when I visited the pt he was resting in bed and had just finished eating breakfast. He complains of MSK pain to his left shoulder area. He does not complain of shortness of breath and PT has arrived to assist with getting up and out of bed. Pt will be moved to med floor for continued recovery and monitoring. Review of Systems General: No Chills, No Night Sweats, No Fatigue, No Malaise; Appetite HEENT: No Head Aches, No Visual Changes, No Dysphasia, No Sore Throat Pulmonary: No Dyspnea, No Cough, No Pleuritic Chest Pain Cardiovascular: No: Chest Pain, Palpitations, Orthopnea, Lt Headedness Gastrointestinal: No: Nausea, Vomiting, Abdominal Pain, Diarrhea, Constipation Genitourinary: No Dysuria, No Frequency, No Incontinence Musculoskeletal: shoulder pain (Left shoulder); No: neck pain, arm pain, back pain, hand pain, leg pain Neurological: Weakness; No: Numbness, Change in speech, Confusion Objective Exam Vital Signs Vital Signs Date Time Temp Pulse Resp B/P (MAP) Pulse Ox O2 Delivery O2 Flow Rate FiO2 01/04/21 10:50 90 High Flow N/C 3.00 01/04/21 08:00 89 20 144/97 01/04/21 07:47 35.8 01/03/21 13:33 100 Capillary Refill : Less Than 3 Seconds General Appearance: No Apparent Distress, WD/WN HEENT: No PERRL/EOMI, No Normal ENT Inspection, No Pharynx Normal Neck: No Full Range of Motion, No Non Tender, No Supple Respiratory: Chest Non Tender, Lungs Clear, Normal Breath Sounds, No Accessory Muscle Use, No Respiratory Distress Cardiovascular: Regular Rate, Rhythm, No Gallop, No Murmur, Normal Peripheral Pulses Gastrointestinal: Normal Bowel Sounds, No Organomegaly, No Pulsatile Mass, Non Tender, Soft Rectal: Deferred Back: No CVA Tenderness, No Vertebral Tenderness Extremity: Normal Capillary Refill, Normal Range of Motion, No Calf Tenderness, No Pedal Edema, Other (Left shoulder pain - MSK related) Neurologic/Psychiatric: Alert, Oriented x3, No Motor/Sensory Deficits, Normal 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 Imaging: Reviewed Imaging Films, Reviewed Imaging Report Assessment/Plan Assessment and Plan Assess & Plan/Chief Complaint Assessment: Respiratory arrest with flash pulmonary edema possible neurogenic in origin with normal BNP and negative troponin Ventilator dependent Chronically debilitated Diabetes Plan: Ventilator management appreciated Supportive care Work-up in progress 01/03/2021: Supportive care PT and OT Home meds 01/04/2021 Supportive care PT and OT SHEREEN DIANA DO 01/05/21 0555: Subjective Subjective/Events-last exam Pt doing a lot better Pain in his left shoulder, will apply Diclofenac gel with K-pad Transferring to fourth floor DC the catheter PT and OT maintained Pulmonary consult will be needed per Dr. Ortega Review of Systems General: Fatigue, Malaise Objective Exam General Appearance: No Apparent Distress, WD/WN, Chronically ill Respiratory: Lungs Clear, Normal Breath Sounds Cardiovascular: Regular Rate, Rhythm Neurologic/Psychiatric: Alert, Oriented x3 Assessment/Plan Assessment and Plan Assess & Plan/Chief Complaint Transfer to fourth floor PT and OT IV Lasix Supervisory-Addendum Brief Verification & Attestation Participated in pt care: history, MDM, physical Personally performed: exam, history, MDM, supervision of care Care discussed with: Medical Student Procedures: n/a Results interpretation: Verified all documentation Verification and Attestation of Medical Student E/M Service A medical student performed and documented this service in my presence. I reviewed and verified all information documented by the medical student and made modifications to such information, when appropriate. I personally performed the physical exam and medical decision making. Shereen Diana, Jan 05, 2021,05:55 KATE BERGER Jan 04, 2021 12:57 SHEREEN DIANA DO Jan 05, 2021 05:55
[2021-01-04] MEDS: ONDANSETRON 4 MG/2 ML (SDV) Z0FRAN IVP PRN (13:28)
[2021-01-04] MEDS: CYCLOBENZAPRINE 10 MG (FLEXERIL) TAB PO PRN (13:28)
[2021-01-04] MEDS: DICLOFENAC 1% GEL 100 GM (VOLTAREN) TUBE TOP SCH ×3 (13:29→20:58)
[2021-01-04] MEDS: RIVAROXABAN 15 MG TABLET (XARELTO) PO SCH (17:23)
--- NOTE | 2021-01-04 18:07 | Wound Care Assessment ---
Wound Care Assessment Date Seen by Provider: Jan 04, 2021 Time Seen by Provider: 18:02 Chief Complaint L. 1st finger wound HPI Pleasant 60 year old gentleman admitted with respiratory failure. I was consulted in regards to wound on L. 1st finger. Approximately 3 weeks ago he burned himself on frying ernandez. There was blistering initially which has sloughed off recently leaving a stable eschar underlying. There is no surrounding erythema, drainage, pain or signs of infection. His wound healing will be complicated by underlying DM2. His latest FSBS levels are 130-140's. He has been treating this at home with mireya. Past Medical History: Admits Diabetes Type II, Admits Heart Disease CHF, SONIA Smoking Status: Unknown if Ever Smoked Exam Vital Signs Date Time Temp Pulse Resp B/P (MAP) Pulse Ox O2 Delivery O2 Flow Rate FiO2 01/04/21 16:00 35.9 89 24 128/79 91 High Flow N/C 3.00 01/03/21 13:33 100 Capillary Refill : Less Than 3 Seconds General Appearance: no apparent distress, obese HEENT: PERRL/EOMI Cardiovascular: no edema Respiratory: no respiratory distress, no accessory muscle use Extremities: normal range of motion Neurologic/Psychiatric: alert, normal mood/affect, oriented x 3 Skin: normal color, warm/dry Skin Problem Location: upper extremities Skin Character: other (Wound description: 1.6x1.5x0.1cm. There is no epithelialization, tunneling, undermining or drainage. The wound margins are flat, there is no granulation and large stable eschar. ) Results Laboratory Tests 01/03/21 20:26: Glucometer 135H 01/04/21 05:25: White Blood Count 11.3H, Red Blood Count 3.94L, Hemoglobin 11.4L, Hematocrit 35L , Mean Corpuscular Volume 89, Mean Corpuscular Hemoglobin 29, Mean Corpuscular Hemoglobin Concent 33, Red Cell Distribution Width 13.6, Platelet Count 427H, Mean Platelet Volume 9.4, Immature Granulocyte % (Auto) 0, Neutrophils (%) (Auto) 79H, Lymphocytes (%) (Auto) 12, Monocytes (%) (Auto) 6, Eosinophils (%) (Auto) 2, Basophils (%) (Auto) 0, Neutrophils # (Auto) 8.9H, Lymphocytes # (Auto) 1.4, Monocytes # (Auto) 0.7, Eosinophils # (Auto) 0.3, Basophils # (Auto) 0.0, Immature Granulocyte # (Auto) 0.1, Sodium Level 137, Potassium Level 3.2L, Chloride Level 99, Carbon Dioxide Level 24, Anion Gap 14, Blood Urea Nitrogen 21H, Creatinine 1.07, Estimat Glomerular Filtration Rate 70, BUN/Creatinine Ratio 20, Glucose Level 204H, Calcium Level 8.5, Phosphorus Level 2.9, Magnesium Level 1.3L 01/04/21 11:10: Glucometer 141H 01/04/21 16:13: Glucometer 246H Microbiology 01/01/21 Blood Culture - Preliminary, Resulted No growth 12/31/20 Gram Stain - Final, Complete 12/31/20 Sputum Culture - Final, Complete Usual upper respiratory linnette Assessment/Plan/Dx Assessment: 1. L. 1st finger full thickness ulcer (burn/trauma) Plan: 1. [place] liberally with betadyne and allow to air dry bid 2. Adequate glycemic control. MARIA A RAMÍREZ MD Jan 04, 2021 18:07
[2021-01-04] MEDS: POVIDONE (BETADINE) 10% SOLN 240 ML BTL TOP SCH (20:58)
[2021-01-04] MEDS: ALPRAZolam 0.5 MG (XANAX) TAB PO PRN (22:47)
[2021-01-05] MEDS: RT-ALBUTEROL SULF 2.5 MG/3 ML PRE-MIX VIAL INH SCH ×6 (02:35→22:57)
[2021-01-05] MEDS: FUROSEMIDE 40 MG/4 ML INJ (LASIX) IV SCH (06:01)
[2021-01-05] MEDS: morphine INJ 4 MG/ML 1 ML (VIAL/SYRINGE) IV PRN ×2 (06:06→21:37)
[2021-01-05 06:07] LABS: BASOPHILS % (AUTO) 0 % (0-10); EOSINOPHILS # (AUTO) 0.3 10^3/uL (0.0-0.3); EOSINOPHILS % (AUTO) 3 % (0-10); HEMATOCRIT 34 % (40-54); HEMOGLOBIN 10.8 g/dL (13.3-17.7); LYMPHOCYTES # (AUTO) 1.2 10^3/uL (1.0-4.0); LYMPHOCYTES % (AUTO) 12 % (12-44); MEAN CORPUSCULAR HEMOGLOBIN 29 pg (25-34); MEAN CORPUSCULAR HGB CONC 32 g/dL (32-36); MEAN CORPUSCULAR VOLUME 90 fL (80-99); MEAN PLATELET VOLUME 9.7 fL (9.0-12.2); MONOCYTES # (AUTO) 0.7 10^3/uL (0.0-1.0); MONOCYTES % (AUTO) 7 % (0-12); NEUTROPHILS # (AUTO) 7.7 10^3/uL (1.8-7.8); NEUTROPHILS % (AUTO) 77 % (42-75); PLATELET COUNT 356 10^3/uL (130-400)
[2021-01-05] MEDS: KCL 20 MEQ TAB (K-DUR) PO SCH (06:09)
[2021-01-05] MEDS: CATHETER FLUSH 10 ML SYR IV SCH ×3 (06:11→22:04)
[2021-01-05 06:19] LABS: ALBUMIN 2.8 GM/DL (3.2-4.5); POTASSIUM 3.9 MMOL/L (3.6-5.0)
[2021-01-05 06:20] LABS: CALCIUM 8.2 MG/DL (8.5-10.1)
[2021-01-05 06:21] LABS: TOTAL PROTEIN 5.9 GM/DL (6.4-8.2)
[2021-01-05 06:23] LABS: BILIRUBIN,TOTAL 0.4 MG/DL (0.1-1.0)
[2021-01-05 06:25] LABS: CREATININE SERUM 1.35 MG/DL (0.60-1.30)
[2021-01-05] MEDS: metFORMIN 500 MG (GLUCOPHAGE) TAB PO SCH ×2 (08:43→17:41)
[2021-01-05] MEDS: KCL 10 MEQ TAB (MICRO K) PO SCH (08:44)
[2021-01-05] MEDS: amLODIPine 10 MG (NORVASC) TAB PO SCH (08:44)
[2021-01-05] MEDS: CLOPIDOGREL 75 MG (PLAVIX) TABLET PO SCH (08:44)
[2021-01-05] MEDS: ISOSORBIDE MONONITRATE 30 MG (IMDUR) TAB PO SCH (08:44)
[2021-01-05] MEDS: meTOprolol SUCCINATE 100 MG (TOPROL XL) TAB PO SCH (08:44)
[2021-01-05] MEDS: DULoxetine 30 MG (CYMBALTA) CAP PO SCH ×2 (08:45→16:51)
[2021-01-05] MEDS: LOSARTAN 100 MG (COZAAR) TABLET PO SCH (08:45)
[2021-01-05] MEDS: FUROSEMIDE 40 MG (LASIX) TAB PO SCH (08:45)
[2021-01-05] MEDS: PANTOPRAZOLE 40 MG (PROTONIX) TAB PO SCH (08:45)
[2021-01-05] MEDS: DICLOFENAC 1% GEL 100 GM (VOLTAREN) TUBE TOP SCH ×4 (08:46→21:37)
[2021-01-05] MEDS: MUPIROCIN 2% OINT 22 GM (BACTROBAN) TUBE TP SCH ×2 (08:48→21:37)
[2021-01-05] MEDS: inSUlin ASPART (NovoLOG) 1 UNIT/0.01 ML (CHARGE PER UNIT) SQ SCH ×3 (09:05→21:36)
[2021-01-05] MEDS: GLIMEPIRIDE 1 MG (AMARYL) TAB PO SCH (09:05)
[2021-01-05] MEDS: POVIDONE (BETADINE) 10% SOLN 240 ML BTL TOP SCH ×2 (09:06→21:37)
--- NOTE | 2021-01-05 09:32 | Cardiology Progress Note ---
Subjective Date Seen by Provider: Jan 05, 2021 Time Seen by Provider: 09:31 Subjective/Events-last exam Patient is laying down in bed, still having chest pain across his chest persistent. Did not change. Review of Systems General: No Chills, No Night Sweats; Fatigue, Malaise; No Appetite, No Other HEENT: No Head Aches, No Visual Changes, No Eye Pain, No Ear Pain, No Dysphasia, No Sinus Congestion, No Post Nasal Drip, No Sore Throat, No Other Pulmonary: Dyspnea; No Cough, No Pleuritic Chest Pain, No Other Cardiovascular: Chest Pain; No: Palpitations, Orthopnea, Paroxysmal Noc. Dyspnea, Edema, Lt Headedness, Other Objective-Cardiology Exam Last Set of Vital Signs Vital Signs 01/03/21 01/05/21 01/05/21 13:33 04:17 07:26 Temp 36.5 Pulse 89 Resp 18 B/P (MAP) 155/78 Pulse Ox 91 O2 Delivery High Flow N/C O2 Flow Rate 3.00 FiO2 100 I&O Intake and Output 01/05/21 00:00 Intake Total 2885 ml Output Total 2400 ml Balance 485 ml Intake Oral 2685 ml IV Total 200 ml Output Urine Total 2400 ml General: Alert, Oriented X3, Cooperative HEENT: Atraumatic Neck: Supple Lungs: Clear to Auscultation, Normal Air Movement Heart: Regular Rate, Normal S1, Normal S2 Abdomen: Normal Bowel Sounds Extremities: No Clubbing, No Cyanosis Skin: No Rashes Neuro: Normal Speech Psych/Mental Status: Mental Status NL Results Lab Laboratory Tests 01/05/21 05:42 A/P-Cardiology Admission Diagnosis Acute respiratory failure Non-ST elevation myocardial infarction Hypertension Hyperlipidemia Assessment/Plan Recurrent acute respiratory failure with flash pulmonary edema, was intubated last week then discharged, continue to have recurrent episodes of severe shortness of breath late in the evening then improved later during the day. He was discharged on oxygen, currently return to the hospital intubated. In flash pulmonary edema. Continue with aggressive diuretics, recommend initiate weaning Underlying etiology of his flash pulmonary edema is unknown, BNP is mildly elevated, cardiac enzymes are mildly elevated. No other signs of infection. Recommend possible bronchoscopy in addition he was started on Solu-Medrol yesterday, consider using tapering dose of steroids Chest pain, mild elevation in troponin, probably type II myocardial infarction secondary to respiratory failure and hypoxemia, I will evaluate troponin level and EKG. Continue to monitor History of chest pain with chronic stable angina. Restart isosorbide and evaluate tolerance and response Echo 12/24/20: LVEF 60-65%, mild conc LVH, PASP 20-25 mmHg. Coronary artery disease- Cardiac catheterization on December 09, 2017 revealing multivessel coronary artery disease with severe stenosis in the proximal circumflex artery with p rimary stenting using Rocío 3.012 mm expanded to 3.25 mm with excellent results. Severe stenosis in the mid right coronary artery with primary stenting using 2.512 mm Rocío expanded to 2.75 with excellent results. Mild to moderate disease in the proximal LAD, severe stenosis at the ostium of first diagonal artery that is very small artery. Cardiac catheterization done February 04, 2019 revealed total occlusion of the left PDA off the circumflex artery, patent stent in the proximal circumflex. Patent stent in the midright coronary artery. Mild disease in the LAD. Cardiac catheterization was done on December 29, 2020 showing patent stent in the proximal circumflex, right coronary artery. Severe stenosis at the distal circumflex artery, primary stenting using 2.25 x 23 mm expanded to 2.35 mm with excellent results. Has severe stenosis/subtotal occlusion at the distal right posterior descending artery, very small artery not amendable to intervention. Mild to moderate disease in the LAD. Plavix and Xarelto restarted. Allergy to aspirin causing angioedema, Hypertension, restart home medication and monitor blood pressure Hyperlipidemia-continue to monitor lipids Frequent ventricular ectopy with PVC and ventricular trigeminy, maintained on beta kelli. Mild bilateral carotid stenosis, ultrasound was done in December 2018, continue to monitor. Family history of heart disease History of psoriasis. Diabetes mellitus, admitted with DKA, has had previous hospitalizations for DKA. Management per medical services Obesity, BMI is 36, we discussed weight loss and exercise CROW KNIGHT MD Jan 05, 2021 09:32
[2021-01-05] MEDS: ONDANSETRON 4 MG/2 ML (SDV) Z0FRAN IVP PRN (09:54)
[2021-01-05] MEDS: CYCLOBENZAPRINE 10 MG (FLEXERIL) TAB PO PRN (09:54)
--- NOTE | 2021-01-05 09:59 | Physical Therapy Daily Note ---
PT Daily Note-Current Subjective Patient much more alert and cooperative on this date. Agrees to PT. Mental Status Patient Orientation: Normal For Age Attachments: Oxygen (3L HF NC) Transfers SCALE: Activities may be completed with or without assistive devices. 7-Izaxfofibp-uwvycfo completes the activity by him/herself with no assistance from a helper. 5-Set-up or Clean-up Assistance-helper sets up or cleans up; patient completes activity. [place] assists only prior to or following the activity. 4-Supervision or Touching Assistance-helper provides verbal cues and/or touching/steadying and/or contact guard assistance as patient completes activity. Assistance may be provided throughout the activity or intermittently. 3-Partial/Moderate Assistance-helper does LESS THAN HALF the effort. [place] lifts, holds or supports trunk or limbs, but provides less than half the effort. 2-Substantial/Maximal Assistance-helper does MORE THAN HALF the effort. [place] lifts or holds trunk or limbs and provides more than half the effort. 3-Zpoovotly-teonty does ALL the effort. Patient does none of the effort to complete the activity. Or, the assistance of 2 or more helpers is required for the patient to complete the activity. If activity was not attempted, code reason: 7-Patient Refused. 9-Not Applicable-not attempted and the patient did not perform the activity before the current illness, exacerbation or injury. 10-Not Attempted due to Environmental Limitations-(lack of equipment, weather restraints, etc.). 88-Not Attempted due to Medical Conditions or Safety Concerns. Lying to Sitting/Side of Bed(Q: 4 Sit to Stand (QC): 3 Chair/Pud-kg-Epbin Xfer(QC): 3 Gait Training Does the Patient Walk?: Yes Distance: 75' Walk 10 feet (QC): 4 Walk 50 ft with 2 Turns(QC): 4 Walk 150 ft (QC): 88 Gait Assistive Device: FWW 2 standing recovery periods due to fatigue/weakness Assessment Patient tolerates minimal activity and is in w/c to go to xray. Increase activity as tolerated by patient. 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 Goals Longterm Goals PT Longterm Goals Time Frame: Jan 21, 2021 Roll Left & Right (QC): 6 Sit to Lying (QC): 6 Lying-Sitting on Side/Bed(QC): 6 Sit to Stand (QC): 6 Chair/Vhg-zu-Svkis Xfer(QC): 6 Toilet Transfer (QC): 6 Walk 10 feet (QC): 4 Walk 50ft with 2 Turns (QC): 4 Walk 150 ft (QC): 4 PT Plan Treatment/Plan Treatment Plan: Continue Plan of Care Treatment Plan: Bed Mobility, Education, Functional Activity Paul, Functional Strength, Gait, Safety, Therapeutic Exercise, Transfers Treatment Duration: Jan 21, 2021 Frequency: 6 times per week Estimated Hrs Per Day: .25 hour per day Patient and/or Family Agrees t: Yes Time/GCodes Time In: 928 Time Out: 937 Total Billed Treatment Time: 9 Total Billed Treatment 1 visit GT 9 min DARLENE CARREON PT Jan 05, 2021 09:59
--- NOTE | 2021-01-05 10:04 | Diagnostic Imaging Report ---
INDICATION: Dyspnea. TECHNIQUE: Two view chest 9:46 AM CORRELATION STUDY: 01/01/2021 FINDINGS: Interval extubation and removal of gastric tube. Heart size enlarged, mediastinum mildly prominent, stable. Improving aeration to the lung garcia. Minimal residual infiltrate at the lung bases along with small effusions. Stomach is distended with gas with air-fluid level. Accentuated thoracic kyphosis with degenerative change. IMPRESSION: 1. Interval extubation. 2. Improvement with some residual infiltrate or atelectasis and effusion at both lung bases. 3. Stomach is noted to be distended with air and fluid. Dictated by: Dictated on workstation # [id number]
--- NOTE | 2021-01-05 13:17 | Occupational Ther Daily Note ---
OT Current Status-Daily Note Subjective Pt in bed, agreeable to OT tx. Pt confused this therapist as someone he knew's granddaughter. OT reintroduced/oriented pt to being present for therapy. Pt states this therapist looks similar to the other person. Mental Status/Objective Patient Orientation: Person, Confused, Place, Situation Attachments: Oxygen ADL-Treatment Therapy Code Descriptions/Definitions Functional Waterproof Measure: 0=Not Assessed/NA 4=Minimal Assistance 1=Total Assistance 5=Supervision or Setup 2=Maximal Assistance 6=Modified Waterproof 3=Moderate Assistance 7=Complete IndependenceSCALE: Activities may be completed with or without assistive devices. 9-Awrywzmjky-rxazsqq completes the activity by him/herself with no assistance from a helper. 5-Set-up or Clean-up Assistance-helper sets up or cleans up; patient completes activity. [place] assists only prior to or following the activity. 4-Supervision or Touching Assistance-helper provides verbal cues and/or touching/steadying and/or contact guard assistance as patient completes activity. Assistance may be provided throughout the activity or intermittently. 3-Partial/Moderate Assistance-helper does LESS THAN HALF the effort. [place] lifts, holds or supports trunk or limbs, but provides less than half the effort. 2-Substantial/Maximal Assistance-helper does MORE THAN HALF the effort. [place] lifts or holds trunk or limbs and provides more than half the effort. 7-Faowjnsfh-qaplux does ALL the effort. Patient does none of the effort to complete the activity. Or, the assistance of 2 or more helpers is required for the patient to complete the activity. If activity was not attempted, code reason: 7-Patient Refused. 9-Not Applicable-not attempted and the patient did not perform the activity before the current illness, exacerbation or injury. 10-Not Attempted due to Environmental Limitations-(lack of equipment, weather restraints, etc.). 88-Not Attempted due to Medical Conditions or Safety Concerns. Oral Hygiene (QC): 7 Shower/Bathe Self (QC): 7 Upper Body Dressing (QC): 7 Lower Body Dressing (QC): 7 On/Off Footwear: 7 Toileting Hygiene (QC): 7 Other Treatment Pt in bed, has phone in hand preparing to call in lunch order. Pt easily distracted with his stories, and required redirection to treatment. Pt rolled to his L side in order for doctor to listen to his lungs, required moderate assistance with rolling, and pt reported increased pain. OT tx with focus on increasing BUE strength and activity tolerance. Pt completed x10 reps each of the following UE exercises: RUE shoulder flexion, BUE elbow flexion/extension, finger flexion/extension. Pt unable to perform L shoulder flexion more than ~10 degrees due to 10/10 pain, this exercise was not performed due to pain level. Post tx, pt in bed, call light in reach and all needs met. OT read phone number to pt so he can order his lunch. Education OT Patient Education: Correct positioning, Energy conservation, Modified ADL techniques, Progress toward Goal/Update tx plan, Purpose of tx/functional ac tivities, Rehab process Teaching Recipient: Patient Teaching Methods: Discussion Response to Teaching: Verbalize Understanding OT Oncology Physician Goals Residential Goals Time Frame: Jan 13, 2021 Eating (QC): 6 Oral Hygiene (QC): 6 Toileting Hygiene (QC): 6 Shower/Bathe Self (QC): 6 Upper Body Dressing (QC): 6 Lower Body Dressing (QC): 6 On/Off Footwear (QC): 6 Additional Goals: 1-Demonstrate ADL Tasks, 2-Verbalize Understanding, 3- ImproveStrength/Paul 1=Demonstrate adherence to instructed precautions during ADL tasks. 2=Patient will verbalize/demonstrate understanding of assistive devices/modifications for ADL. 3=Patient will improve strength/tolerance for activity to enable patient to perform ADL's. OT Education/Plan Problem List/Assessment Assessment: Decreased Activ Tolerance, Decreased UE Strength, Impaired Co gnition, Impaired Funct Balance, Impaired I ADL's, Impaired Self-Care Skills, Restricted Funct UE ROM Discharge Recommendations Plan/Recommendations: Continue POC Treatment Plan/Plan of Care Patient would benefit from OT for education, treatment and training to promote independence in ADL's, mobility, safety and/or upper extremity function for ADL's. Plan of Care: ADL Retraining, Functional Mobility, UE Funct Exercise/Act Treatment Duration: Jan 13, 2021 Frequency: 5 times per week Estimated Hrs Per Day: .25 hour per day Rehab Potential: Fair Time/GCodes Start Time: 11:45 Stop Time: 12:00 Total Time Billed (hr/min): 15 Billed Treatment Time 1, EX DANIKA LOERA OT Jan 05, 2021 13:17
--- NOTE | 2021-01-05 15:09 | Progress Note - Hospitalist ---
ABKATE 01/05/21 1509: Subjective HPI/CC On Admission Date Seen by Provider: Jan 05, 2021 Time Seen by Provider: 08:46 Subjective/Events-last exam Today when I attempted to visit the patient he was away from the room with radiology. Later I returned with Dr. Grey and the pt was found resting comfortably in bed. Pt still complains of MSK pain from his left shoulder which radiates across his chest. Pt is otherwise in good spirits, eating well, with normal bowel and urinary function. Pt does not complain of any difficulty breathing at this time. Review of Systems General: No Chills, No Night Sweats; Fatigue; No Malaise; Appetite HEENT: No Head Aches, No Visual Changes, No Dysphasia, No Sore Throat Pulmonary: No Dyspnea, No Cough, No Pleuritic Chest Pain Cardiovascular: No: Chest Pain, Palpitations, Edema, Lt Headedness Gastrointestinal: No: Nausea, Vomiting, Abdominal Pain, Diarrhea, Constipation, Melena, Hematochezia Genitourinary: No Dysuria, No Frequency, No Incontinence, No Hematuria Musculoskeletal: arm pain (left shoulder pain - MSK); No: neck pain, shoulder pain, back pain, hand pain, leg pain Neurological: Weakness; No: Numbness, Change in speech, Confusion Objective Exam Vital Signs Vital Signs Date Time Temp Pulse Resp B/P (MAP) Pulse Ox O2 Delivery O2 Flow Rate FiO2 01/05/21 14:50 90 High Flow N/C 3.00 01/05/21 12:00 36.3 103 20 124/67 01/03/21 13:33 100 Capillary Refill : Less Than 3 Seconds General Appearance: No Apparent Distress, WD/WN HEENT: PERRL/EOMI, Pharynx Normal Neck: Full Range of Motion, Non Tender, Supple Respiratory: Chest Non Tender, Lungs Clear, Normal Breath Sounds, No Accessory Muscle Use, No Respiratory Distress Cardiovascular: Regular Rate, Rhythm, No Edema, No Gallop, No Murmur, Normal Peripheral Pulses Gastrointestinal: Normal Bowel Sounds, No Organomegaly, No Pulsatile Mass, Non Tender, Soft Rectal: Deferred Extremity: Normal Capillary Refill, Normal Range of Motion, Non Tender, No Calf Tenderness, No Pedal Edema Neurologic/Psychiatric: Alert, Oriented x3, No Motor/Sensory Deficits, Normal Mood/Affect, 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 Imaging: Reviewed Imaging Films, Reviewed Imaging Report Assessment/Plan Assessment and Plan Assess & Plan/Chief Complaint Assessment: Respiratory arrest with flash pulmonary edema possible neurogenic in origin with normal BNP and negative troponin - Possibly related to multiple allergies, may be an a-typical presentation of anaphylaxis (is allergic to sulfa, but taking Glimepiride - a sulfonylureas) Ventilator dependent Chronically debilitated Diabetes Plan: Ventilator management appreciated Supportive care Work-up in progress 01/03/2021: Supportive care PT and OT Home meds 01/04/2021 Supportive care PT and OT 01/05/2021 Supportive care Pulmonary consult for recurring flash pulmonary edema PT and OT SHEREEN GREY DO 01/06/21 0552: Subjective Subjective/Events-last exam Somatic complaints No other issues Labs stable Review of Systems General: Fatigue Musculoskeletal: arm pain (left shoulder pain - MSK), back pain, hand pain Objective Exam General Appearance: No Apparent Distress, WD/WN, Chronically ill Respiratory: Lungs Clear, Normal Breath Sounds Cardiovascular: Regular Rate, Rhythm Neurologic/Psychiatric: Alert, Oriented x3, No Motor/Sensory Deficits, Normal Mood/Affect Assessment/Plan Assessment and Plan Assess & Plan/Chief Complaint Supportive care Pulmonary consult Supervisory-Addendum Brief Verification & Attestation Participated in pt care: history, MDM, physical Personally performed: exam, history, MDM, supervision of care Care discussed with: Medical Student Procedures: n/a Results interpretation: Verified all documentation Verification and Attestation of Medical Student E/M Service A medical student performed and documented this service in my presence. I reviewed and verified all information documented by the medical student and made modifications to such information, when appropriate. I personally performed the physical exam and medical decision making. Shereen Grey, Jan 06, 2021,05:51 KATE BERGER Jan 05, 2021 15:09 SHEREEN GREY DO Jan 06, 2021 05:52
[2021-01-05] MEDS: RIVAROXABAN 15 MG TABLET (XARELTO) PO SCH (16:51)
[2021-01-05] MEDS: ALPRAZolam 0.5 MG (XANAX) TAB PO PRN (23:46)
[2021-01-06] MEDS: RT-ALBUTEROL SULF 2.5 MG/3 ML PRE-MIX VIAL INH SCH ×4 (02:57→20:51)
[2021-01-06 03:24] VITALS: BP 124/67
[2021-01-06] MEDS: HYDROcodone/APAP 5 MG/325 MG (LORTAB) TAB PO PRN ×3 (06:03→21:39)
[2021-01-06 06:14] LABS: BASOPHILS % (AUTO) 0 % (0-10); EOSINOPHILS # (AUTO) 0.4 10^3/uL (0.0-0.3); EOSINOPHILS % (AUTO) 4 % (0-10); HEMATOCRIT 34 % (40-54); HEMOGLOBIN 10.9 g/dL (13.3-17.7); LYMPHOCYTES # (AUTO) 1.2 10^3/uL (1.0-4.0); LYMPHOCYTES % (AUTO) 13 % (12-44); MEAN CORPUSCULAR HEMOGLOBIN 29 pg (25-34); MEAN CORPUSCULAR HGB CONC 32 g/dL (32-36); MEAN CORPUSCULAR VOLUME 91 fL (80-99); MEAN PLATELET VOLUME 9.7 fL (9.0-12.2); MONOCYTES # (AUTO) 0.8 10^3/uL (0.0-1.0); MONOCYTES % (AUTO) 8 % (0-12); NEUTROPHILS % (AUTO) 74 % (42-75); PLATELET COUNT 361 10^3/uL (130-400); WHITE BLOOD COUNT 9.4 10^3/uL (4.3-11.0)
[2021-01-06 06:38] LABS: BILIRUBIN,TOTAL 0.6 MG/DL (0.1-1.0); CALCIUM 8.8 MG/DL (8.5-10.1); CREATININE SERUM 1.18 MG/DL (0.60-1.30); TOTAL PROTEIN 6.6 GM/DL (6.4-8.2)
[2021-01-06] MEDS: KCL 20 MEQ TAB (K-DUR) PO SCH (06:45)
[2021-01-06] MEDS: CLOPIDOGREL 75 MG (PLAVIX) TABLET PO SCH (08:20)
[2021-01-06] MEDS: LOSARTAN 100 MG (COZAAR) TABLET PO SCH (08:20)
[2021-01-06] MEDS: DULoxetine 30 MG (CYMBALTA) CAP PO SCH ×2 (08:20→17:06)
[2021-01-06] MEDS: metFORMIN 500 MG (GLUCOPHAGE) TAB PO SCH ×2 (08:20→16:20)
[2021-01-06] MEDS: GLIMEPIRIDE 1 MG (AMARYL) TAB PO SCH (08:20)
[2021-01-06] MEDS: FUROSEMIDE 40 MG (LASIX) TAB PO SCH (08:20)
[2021-01-06] MEDS: ISOSORBIDE MONONITRATE 30 MG (IMDUR) TAB PO SCH (08:20)
[2021-01-06] MEDS: amLODIPine 10 MG (NORVASC) TAB PO SCH (08:20)
[2021-01-06] MEDS: KCL 10 MEQ TAB (MICRO K) PO SCH (08:21)
[2021-01-06] MEDS: PANTOPRAZOLE 40 MG (PROTONIX) TAB PO SCH (08:21)
[2021-01-06] MEDS: meTOprolol SUCCINATE 100 MG (TOPROL XL) TAB PO SCH (08:21)
[2021-01-06] MEDS: DICLOFENAC 1% GEL 100 GM (VOLTAREN) TUBE TOP SCH ×4 (08:22→21:35)
[2021-01-06] MEDS: inSUlin ASPART (NovoLOG) 1 UNIT/0.01 ML (CHARGE PER UNIT) SQ SCH ×3 (08:23→21:33)
[2021-01-06] MEDS: MUPIROCIN 2% OINT 22 GM (BACTROBAN) TUBE TP SCH ×2 (08:23→21:35)
[2021-01-06] MEDS: POVIDONE (BETADINE) 10% SOLN 240 ML BTL TOP SCH ×2 (08:23→21:34)
--- NOTE | 2021-01-06 10:29 | Cardiology Progress Note ---
Subjective Date Seen by Provider: Jan 06, 2021 Time Seen by Provider: 10:27 Subjective/Events-last exam Patient was seen at bedside, laying down comfortably, feeling better, breathing better. Review of Systems General: No Chills, No Night Sweats; Fatigue, Malaise; No Appetite, No Other HEENT: No Head Aches, No Visual Changes, No Eye Pain, No Ear Pain, No Dysphasia, No Sinus Congestion, No Post Nasal Drip, No Sore Throat, No Other Pulmonary: Dyspnea; No Cough, No Pleuritic Chest Pain, No Other Cardiovascular: Chest Pain; No: Palpitations, Orthopnea, Paroxysmal Noc. Dyspnea, Edema, Lt Headedness, Other Objective-Cardiology Exam Last Set of Vital Signs Vital Signs 01/06/21 01/06/21 01/06/21 03:24 07:41 08:52 Temp 36.8 Pulse 89 Resp 20 B/P (MAP) 163/82 Pulse Ox 96 O2 Delivery Nasal Cannula O2 Flow Rate 3.00 FiO2 32 I&O Intake and Output 01/06/21 00:00 Intake Total 3160 ml Output Total 1390 ml Balance 1770 ml Intake Oral 3160 ml Output Urine Total 1390 ml # Bowel Movements 1 General: Alert, Oriented X3, Cooperative HEENT: Atraumatic Neck: Supple Lungs: Clear to Auscultation, Normal Air Movement Heart: Regular Rate, Normal S1, Normal S2 Abdomen: Normal Bowel Sounds Extremities: No Clubbing, No Cyanosis Skin: No Rashes Neuro: Normal Speech Psych/Mental Status: Mental Status NL Results Lab Laboratory Tests 01/06/21 05:46 A/P-Cardiology Admission Diagnosis Acute respiratory failure Non-ST elevation myocardial infarction Hypertension Hyperlipidemia Assessment/Plan Recurrent acute respiratory failure with flash pulmonary edema, was intubated last week then discharged, continue to have recurrent episodes of severe heike rtness of breath late in the evening then improved later during the day. He was discharged on oxygen, currently return to the hospital intubated. In flash pulmonary edema. Continue with aggressive diuretics, recommend initiate weaning Underlying etiology of his flash pulmonary edema is unknown, BNP is mildly elevated, cardiac enzymes are mildly elevated. No other signs of infection. Clinically patient is better today. Continue on current treatment Patient is planning to go to a residential for physical therapy and continuing care. Chest pain, mild elevation in troponin, probably type II myocardial infarction secondary to respiratory failure and hypoxemia, I will evaluate troponin level and EKG. Continue to monitor Patient is still having musculoskeletal chest pain, pain on coughing and taking a deep breath. History of chest pain with chronic stable angina. Restart isosorbide and evaluate tolerance and response Echo 12/24/20: LVEF 60-65%, mild conc LVH, PASP 20-25 mmHg. Coronary artery disease- Cardiac catheterization on December 09, 2017 revealing multivessel coronary artery disease with severe stenosis in the proximal circumflex artery with primary stenting using Rocío 3.012 mm expanded to 3.25 mm with excellent results. Severe stenosis in the mid right coronary artery with primary stenting using 2.512 mm Rocío expanded to 2.75 with excellent results. Mild to moderate disease in the proximal LAD, severe stenosis at the ostium of first diagonal artery that is very small artery. Cardiac catheterization done February 04, 2019 revealed total occlusion of the left PDA off the circumflex artery, patent stent in the proximal circumflex. Patent stent in the midright coronary artery. Mild disease in the LAD. Cardiac catheterization was done on December 29, 2020 showing patent stent in the proximal circumflex, right coronary artery. Severe stenosis at the distal circumflex artery, primary stenting using 2.25 x 23 mm expanded to 2.35 mm with excellent results. Has severe stenosis/subtotal occlusion at the distal right posterior descending artery, very small artery not amendable to intervention. Mild to moderate disease in the LAD. Plavix and Xarelto restarted. Allergy to aspirin causing angioedema, Hypertension, restart home medication and monitor blood pressure Hyperlipidemia-continue to monitor lipids Frequent ventricular ectopy with PVC and ventricular trigeminy, maintained on beta kelli. Mild bilateral carotid stenosis, ultrasound was done in December 2018, continue to monitor. Family history of heart disease History of psoriasis. Diabetes mellitus, admitted with DKA, has had previous hospitalizations for DKA. Management per medical services Obesity, BMI is 36, we discussed weight loss and exercise CROW KNIGHT MD Jan 06, 2021 10:29
--- NOTE | 2021-01-06 12:07 | Physical Therapy Daily Note ---
PT Daily Note-Current Subjective Patient agrees to PT. Mental Status Attachments: Oxygen (4L HF) Transfers SCALE: Activities may be completed with or without assistive devices. 5-Amdagaoezj-gnkfoui completes the activity by him/herself with no assistance from a helper. 5-Set-up or Clean-up Assistance-helper sets up or cleans up; patient completes activity. [place] assists only prior to or following the activity. 4-Supervision or Touching Assistance-helper provides verbal cues and/or touching/steadying and/or contact guard assistance as patient completes activity. Assistance may be provided throughout the activity or intermittently. 3-Partial/Moderate Assistance-helper does LESS THAN HALF the effort. [place] lifts, holds or supports trunk or limbs, but provides less than half the effort. 2-Substantial/Maximal Assistance-helper does MORE THAN HALF the effort. [place] lifts or holds trunk or limbs and provides more than half the effort. 3-Wzgxwheiy-xhwlat does ALL the effort. Patient does none of the effort to complete the activity. Or, the assistance of 2 or more helpers is required for the patient to complete the activity. If activity was not attempted, code reason: 7-Patient Refused. 9-Not Applicable-not attempted and the patient did not perform the activity before the current illness, exacerbation or injury. 10-Not Attempted due to Environmental Limitations-(lack of equipment, weather restraints, etc.). 88-Not Attempted due to Medical Conditions or Safety Concerns. Lying to Sitting/Side of Bed(Q: 4 Sit to Stand (QC): 4 Chair/Fkj-cg-Rbofe Xfer(QC): 4 Toilet Transfer (QC): 4 patient able to toilet self Gait Training Does the Patient Walk?: Yes Distance: 200' Walk 10 feet (QC): 4 Walk 50 ft with 2 Turns(QC): 4 Walk 150 ft (QC): 4 Gait Assistive Device: FWW 2 standing recovery periods due to SOA/fatigue (functional, slow gait sequence) Exercises Seated Therapy Exercises: Ankle pumps, Long arc quads, Hip flexion Seated Reps: 12 Assessment Patient requires time to complete all functional tasks. Patient is very talkative. PT Dietetics Professor Goals Jail Goals PT Dietetics Professor Goals Time Frame: Jan 21, 2021 Roll Left & Right (QC): 6 Sit to Lying (QC): 6 Lying-Sitting on Side/Bed(QC): 6 Sit to Stand (QC): 6 Chair/Akf-vo-Hzoic Xfer(QC): 6 Toilet Transfer (QC): 6 Walk 10 feet (QC): 4 Walk 50ft with 2 Turns (QC): 4 Walk 150 ft (QC): 4 PT Plan Treatment/Plan Treatment Plan: Continue Plan of Care Treatment Plan: Bed Mobility, Education, Functional Activity Paul, Functional Strength, Gait, Safety, Therapeutic Exercise, Transfers Treatment Duration: Jan 21, 2021 Frequency: 6 times per week Estimated Hrs Per Day: .25 hour per day Patient and/or Family Agrees t: Yes Time/GCodes Time In: 1130 Time Out: 1154 Total Billed Treatment Time: 24 Total Billed Treatment 1 visit FA x 2 24 min DARLENE CARREON PT Jan 06, 2021 12:07
--- NOTE | 2021-01-06 13:38 | Pulmonary Consultation ---
History of Present Illness History of Present Illness Date Seen by Provider: Jan 06, 2021 Time Seen by Provider: 13:24 Reason for Visit: Acute respiratory failure History of Present Illness 60 M asked to see for paroxysmal episodes of severe SOB, =/- chest pain which he feels after intubation once intubated, 04/09, taking Estephania bid, rosales not mow lawn due to grass allergies, Does not have Epipen but used after peanut exposure several years ago Gets wheezy, feels ventilation is poor during these episodes, Once had syncope, and was intubated. Has multiple allergies, has cat at home PCN causes marked rash, some SOB, has not had since teenager, Sulfa causes urticaria, some SOB, ASA causes "throat to tighten", codeine causes SOB, nausea, Eggs white causes "itchy throat", no SOB, Egg yolk ok, Lidocaine causes hives, no SOB. 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, only think that caused problem was slicing strawberry Other PMH Charcot foot from spider bite, IDDM, HTN, 3 episodes of CHF, has SONIA uses BIPAP at night, cleans machine every night GB out without problem, has has 3 stents for CAD, recent cardiac cath shows new narrowing distal LCx which was stented, other stents patent, on DPT Has cat, no birds, had dog, does not think has mold in house Family Hx of heart disease Allergies and Home Medications Allergies Coded Allergies: aspirin (Verified Allergy, Severe, 12/10/17) egg (Verified Allergy, Intermediate, Vomiting, 03/21/20) Penicillins (Unverified Allergy, Unknown, 07/19/13) Sulfa (Sulfonamide Antibiotics) (Unverified Allergy, Unknown, 07/19/13) lidocaine (Verified Allergy, Unknown, 01/06/16) peanut (Unverified Allergy, Unknown, air closes off, 07/19/13) strawberry (Unverified Allergy, Unknown, airway closes off, 07/19/13) codeine (Unverified Adverse Reaction, Mild, NAUSEA, 02/03/14) Uncoded Allergies: ENVIRONMENTAL (Allergy, Unknown, 07/19/13) raw egg whites (Adverse Reaction, Unknown, upset stomach, 12/09/17) Home Medications Amlodipine Besylate 10 Mg Tablet, 10 MG PO DAILY, (Reported) Atorvastatin Calcium 40 Mg Tablet, 40 MG PO HS, (Reported) Clopidogrel Bisulfate 75 Mg Tablet, 75 MG PO DAILY, (Reported) Cyclobenzaprine HCl 5 Mg Tablet, 5 MG PO TID PRN for MUSCLE CRAMPS, (Reported) Duloxetine HCl 60 Mg Capsule.dr, 60 MG PO 0900,1700, (Reported) Furosemide 40 Mg Tablet, 40 MG PO DAILY, (Reported) Glimepiride 1 Mg Tab, 1 MG PO DAILY, (Reported) Insulin Aspart 300 Units/3 Ml Solution, 5 UNITS SQ TID, (Reported) Insulin Detemir 100 Unit/1 Ml Insuln.pen, 15 UNIT SQ HS, (Reported) Isosorbide Mononitrate 30 Mg Tab.er.24h, 30 MG PO DAILY, (Reported) Losartan Potassium 100 Mg Tablet, 100 MG PO DAILY, (Reported) Metoprolol Succinate 100 Mg Tab.er.24h, 100 MG PO DAILY, (Reported) Mupirocin 22 Gm Oint...g., 1 APPLIC TP BID, (Reported) FILLED 12-21-2020 #1/7 DAY SUPPLY Nitroglycerin 0.4 Mg Tab.subl, 0.4 MG SL UD PRN for CHEST PAIN, (Reported) Potassium Chloride 10 Meq Tab.er.prt, 10 MEQ PO DAILY, (Reported) Prednisone 20 Mg Tab, 20 TAB PO DAILY 2 tabs x 3 days then 1 tab x 3 days then 1/2 tab x 4 days Prescribed by: JOCELYN THOMPSON on 12/30/20 1152 Rivaroxaban 15 Mg Tablet, 15 MG PO DAILY@1700, (Reported) Sitagliptin Phos/Metformin HCl 1 Each Tablet, 1 EACH PO 0900,1700, (Reported) Tobramycin/Dexamethasone 3.5 Gm Oint, 1 APPLIC OP TID, (Reported) FILLED 12-21-2020 #1/7 DAY SUPPLY Past Medical/Social/Family Hx Patient Social History Marrital Status: single Employed/Student: unemployed Smoking Status: Unknown if Ever Smoked Smokeless Tobacco Frequency: Unknown if Ever Used Use of E-Cig and/or Vaping dev: Unable to obtain E-Cig and/or Vaping Freq: Unknown if Ever Used Substance use?: Unable to obtain Alcohol Use?: Unable to obtain Pt stated abuse/neglect: Unable to obtain Immunizations Up To Date Influenza Vaccine Up-to-Date: No; Not Current First/Initial COVID19 Vaccinat: 05/18/20 Second COVID19 Vaccination Jose: 05/18/20 Tetanus Booster (TDap): Unknown Hepatitis A: No Hepatitis B: No Date of Pneumonia Vaccine: Aug 18, 2013 Current Status Advance Directives: Unable to obtain Communicates: Unable To Communicate Primary Language: Malagasy Preferred Spoken Language: Malagasy Is interpretation needed?: No Past Medical History PMHx: DMII HTN HLD CAD Family Medical History Family Hx: PAST SURGICAL HISTORY: -CARDIAC CATHS--STENTS X 2 IN 2018. LAST CATH 02/04/19--NO INTERVENTION. HAD PATENT STENT TO LEFT CIRCUMFLEX, WITH COMPLETE OCCLUSION OF LEFT PDA; PATENT STENT TO RCA; MILD DISEASE IN OTHER VESSELS -APPENDECTOMY -EGD'S AND COLONOSCOPIES WITH POLYPECTOMY -BILATERAL CARPAL TUNNEL SURGERY -LEFT HAND SURGERY -LEFT FOOT SURGERY Review of Systems Constitutional: see HPI EENTM: see HPI Respiratory: see HPI Cardiovascular: chest pain Gastrointestinal: see HPI Genitourinary: see HPI Musculoskeletal: see HPI Skin: see HPI Psychiatric/Neurological: See HPI Sepsis Event Evaluation Height, Weight, BMI Height: 5'9.00" Weight: 247lbs. 7.0oz. [id number]; 38.00 BMI Method:Stated Exam Exam Patient acknowledged, consented, and participated in this virtual visit which was conducted using real time audio/video Vital Signs Date Time Temp Pulse Resp B/P (MAP) Pulse Ox O2 Delivery O2 Flow Rate FiO2 01/06/21 11:57 36.6 92 20 152/83 96 High Flow N/C 3.00 01/06/21 09:00 High Flow N/C 3.00 01/06/21 08:52 96 Nasal Cannula 3.00 01/06/21 07:41 36.8 89 20 163/82 91 High Flow N/C 3.00 01/06/21 04:09 37.1 92 18 157/77 94 High Flow N/C 3.00 01/06/21 03:24 36.3 103 100 32 01/06/21 02:57 90 Nasal Cannula 3.00 01/05/21 23:57 37.2 91 22 153/80 93 High Flow N/C 3.00 01/05/21 22:59 94 Nasal Cannula 3.00 01/05/21 21:07 36.0 90 18 139/74 88 High Flow N/C 3.00 01/05/21 21:00 High Flow N/C 3.00 01/05/21 18:59 91 Nasal Cannula 3.00 01/05/21 16:14 36.6 99 20 129/74 91 High Flow N/C 3.00 01/05/21 14:50 90 High Flow N/C 3.00 I & O 01/06/21 07:00 Intake Total 2960 ml Output Total 1240 ml Balance 1720 ml Height & Weight Height: 5'9.00" Weight: 247lbs. 7.0oz. 112.560020wj; 38.00 BMI Method:Stated General Appearance: No Apparent Distress, WD/WN, Chronically ill HEENT: PERRL/EOMI, Pharynx Normal Neck: Full Range of Motion, Non Tender, Supple Respiratory: Lungs Clear, Normal Breath Sounds Cardiovascular: Regular Rate, Rhythm, Other (pressing on sternum elicits pain) Capillary Refill: Less Than 3 Seconds Gastrointestinal: normal bowel sounds, non tender, soft, distended Extremity: Normal Capillary Refill, Normal Range of Motion, Non Tender, No Calf Tenderness, No Pedal Edema, Pedal Edema (trace ankle edema) Neurologic/Psychiatric: Alert, Oriented x3, No Motor/Sensory Deficits, Normal Mood/Affect Skin: Normal Color, Warm/Dry Lymphatic: No Adenopathy (cervical and axillary) Results Lab Laboratory Tests 01/05/21 05:42 01/06/21 05:46 Assessment/Plan Assessment/Plan Given paroxysmal nature of SOB and multiple severe allergies I would wonder if this is the problem, I think it would be a good idea to carry an Epipen if his coronary arteries are ok The other possibility is a cardiac cause, now that has stent will see if he has anymore episodes of this paroxysmal SOB. Would continue CPAP if not done recetnly would do echocardiogram looking for pulmonary hypertension, On echo done in 2013 there was none. Time spent with patient (mins): 35 HAIM GUTIERREZ MD Jan 06, 2021 13:38
--- NOTE | 2021-01-06 13:55 | Progress Note - Hospitalist ---
KATE BERGER 01/06/21 1355: Subjective HPI/CC On Admission Date Seen by Provider: Jan 06, 2021 Time Seen by Provider: 08:54 Subjective/Events-last exam When I visited the pt today he was sitting up in bed receiving a nebulizer treatment. He states that he continues to feel pain in his left shoulder area radiating across his chest - today signs of bruising are evident across this area - he believes he fell to the floor after calling EMS and this may be the reason for his MSK pain. He is not having difficultly or pain associated with breathing and is not in apparent distress. His consuming a regular ADA diet without issue and urinary an bowel function remain unimpaired at this time. When questioned about potential allergen triggers, he notes that he believes his pulmonary sx may be related to mold around his house. He is accepting and anticipates consult with pulmonology. He is unable to adequately care for himself at this time at home, so he is working with social insurance administrator on a plan for D/C to [facility] on Saturday. Review of Systems General: No Chills, No Night Sweats, No Fatigue; Appetite HEENT: No Head Aches, No Visual Changes, No Dysphasia, No Sore Throat Pulmonary: No Dyspnea, No Cough, No Pleuritic Chest Pain Cardiovascular: No: Chest Pain, Palpitations, Edema, Lt Headedness Gastrointestinal: No: Nausea, Vomiting, Abdominal Pain, Diarrhea, Constipation Genitourinary: No Dysuria, No Frequency, No Incontinence Musculoskeletal: shoulder pain; No: neck pain, arm pain, back pain, hand pain, leg pain Neurological: No: Weakness, Numbness, Confusion Objective Exam Vital Signs Vital Signs Date Time Temp Pulse Resp B/P (MAP) Pulse Ox O2 Delivery O2 Flow Rate FiO2 01/06/21 11:57 36.6 92 20 152/83 96 High Flow N/C 3.00 01/06/21 03:24 32 Capillary Refill : Less Than 3 Seconds General Appearance: No Apparent Distress, WD/WN HEENT: PERRL/EOMI, Pharynx Normal Neck: Full Range of Motion, Non Tender, Supple Respiratory: Chest Non Tender, Lungs Clear, Normal Breath Sounds, No Accessory Muscle Use, No Respiratory Distress Cardiovascular: Regular Rate, Rhythm, No Edema, No Gallop, No Murmur, Normal Peripheral Pulses Gastrointestinal: Normal Bowel Sounds, No Organomegaly, No Pulsatile Mass, Non Tender, Soft Rectal: Deferred Back: No CVA Tenderness, No Vertebral Tenderness Extremity: Normal Capillary Refill, Normal Range of Motion, Non Tender, No Calf Tenderness, No Pedal Edema Neurologic/Psychiatric: Alert, Oriented x3, No Motor/Sensory Deficits, Normal Mood/Affect, special services coordinator II-XII Norm as Tested Skin: Normal Color, Warm/Dry Lymphatic: No Adenopathy (cervical and axillary) Results/Procedures Lab Laboratory Tests 01/06/21 05:46 Patient resulted labs reviewed. Imaging: Reviewed Imaging Films, Reviewed Imaging Report Assessment/Plan Assessment and Plan Assess & Plan/Chief Complaint Assessment: Respiratory arrest with flash pulmonary edema possible neurogenic in origin with normal BNP and negative troponin - Possibly related to multiple allergies, may be an a-typical presentation of anaphylaxis (is allergic to sulfa, but taking Glimepiride - a sulfonylureas) Ventilator dependent Chronically debilitated Diabetes Plan: Ventilator management appreciated Supportive care Work-up in progress 01/03/2021: Supportive care PT and OT Home meds 01/04/2021 Supportive care PT and OT 01/05/2021 Supportive care Pulmonary consult for recurring flash pulmonary edema PT and OT 01/06/2021 Supportive care Pulmonary consult for recurring flash pulmonary edema - possible type I HSS origin? PT and OT Planning D/C to [facility] 01/09/2021 SHEREEN DIANA DO 01/07/21 0624: Subjective Subjective/Events-last exam Needs MD Pulmo consult thinks he has allergies to exposure at home His allergy list is extensive and has cats at home Needs Epi pen when DC Review of Systems General: Fatigue, Malaise Objective Exam General Appearance: No Apparent Distress, WD/WN, Chronically ill, Obese Respiratory: Lungs Clear, Normal Breath Sounds Cardiovascular: Regular Rate, Rhythm Neurologic/Psychiatric: Alert, Oriented x3, No Motor/Sensory Deficits, Normal Mood/Affect Assessment/Plan Assessment and Plan Assess & Plan/Chief Complaint Epi pen when DC Supervisory-Addendum Brief Verification & Attestation Participated in pt care: history, MDM, physical Personally performed: exam, history, MDM, supervision of care Care discussed with: Medical Student Procedures: n/a Results interpretation: Verified all documentation Verification and Attestation of Medical Student E/M Service A medical student performed and documented this service in my presence. I reviewed and verified all information documented by the medical student and made modifications to such information, when appropriate. I personally performed the physical exam and medical decision making. Shereen Diana, Jan 07, 2021,06:23 KATE BERGER Jan 06, 2021 13:55 SHEREEN DIANA DO Jan 07, 2021 06:24
--- NOTE | 2021-01-06 14:39 | Occupational Ther Daily Note ---
OT Current Status-Daily Note Subjective Pt up to bathroom with nursing staff, agreeable to OT Tx. Mental Status/Objective Patient Orientation: Person, Place, Situation Attachments: Oxygen ADL-Treatment Therapy Code Descriptions/Definitions Functional [place] Measure: 0=Not Assessed/NA 4=Minimal Assistance 1=Total Assistance 5=Supervision or Setup 2=Maximal Assistance 6=Modified [place] 3=Moderate Assistance 7=Complete IndependenceSCALE: Activities may be completed with or without assistive devices. 5-Rsqskaftlk-sbxkymo completes the activity by him/herself with no assistance from a helper. 5-Set-up or Clean-up Assistance-helper sets up or cleans up; patient completes activity. [place] assists only prior to or following the activity. 4-Supervision or Touching Assistance-helper provides verbal cues and/or touching/steadying and/or contact guard assistance as patient completes activity. Assistance may be provided throughout the activity or intermittently. 3-Partial/Moderate Assistance-helper does LESS THAN HALF the effort. [place] lifts, holds or supports trunk or limbs, but provides less than half the effort. 2-Substantial/Maximal Assistance-helper does MORE THAN HALF the effort. [place] lifts or holds trunk or limbs and provides more than half the effort. 4-Hjixxeqsp-zilxzb does ALL the effort. Patient does none of the effort to complete the activity. Or, the assistance of 2 or more helpers is required for the patient to complete the activity. If activity was not attempted, code reason: 7-Patient Refused. 9-Not Applicable-not attempted and the patient did not perform the activity before the current illness, exacerbation or injury. 10-Not Attempted due to Environmental Limitations-(lack of equipment, weather restraints, etc.). 88-Not Attempted due to Medical Conditions or Safety Concerns. Eating (QC): 6 (IND with lunch.) Toileting Hygiene (QC): 4 (CGA in stand, pt able to perform pant hike. Min verbal cues for sequencing.) Toilet Transfer (QC): 3 (SBA transfer to toilet. Min A sit to stand from toilet. Cues for UE positioning) Other Treatment Pt walking to bathroom with nursing staff, agreeable to OT tx. Pt transferred to toilet, SBA. Pt asks this therapist to locate a business card from his counter and place on his tray table where he can get to it. OT informed pt the business card was already on his table. Pt unsure when it got placed on his tray table. Pt completed toileting, required min A to stand from toilet. Pt managed pant hike with CGA. Pt stood at sink, [facility] to wash hands, then transferred to recliner, [facility]. Post tx, pt in recliner, call light in reach and all needs met. Pt eating lunch. Education OT Patient Education: Correct positioning, Energy conservation, Modified ADL techniques, Progress toward Goal/Update tx plan, Purpose of tx/functional activities, Rehab process, Safety issues Teaching Recipient: Patient Response to Teaching: Verbalize Understanding OT Senior Care Goals Seed Analysis Laboratory Assistant Goals Time Frame: Jan 13, 2021 Eating (QC): 6 Oral Hygiene (QC): 6 Toileting Hygiene (QC): 6 Shower/Bathe Self (QC): 6 Upper Body Dressing (QC): 6 Lower Body Dressing (QC): 6 On/Off Footwear (QC): 6 Additional Goals: 1-Demonstrate ADL Tasks, 2-Verbalize Understanding, 3-ImproveStrength/Paul 1=Demonstrate adherence to instructed precautions during ADL tasks. 2=Patient will verbalize/demonstrate understanding of assistive devices/modifications for ADL. 3=Patient will improve strength/tolerance for activity to enable patient to per form ADL's. OT Education/Plan Problem List/Assessment Assessment: Decreased Activ Tolerance, Decreased UE Strength, Impaired I ADL's, Impaired Self-Care Skills Discharge Recommendations Plan/Recommendations: Continue POC Treatment Plan/Plan of Care Patient would benefit from OT for education, treatment and training to promote independence in ADL's, mobility, safety and/or upper extremity function for ADL's. Plan of Care: ADL Retraining, Functional Mobility, UE Funct Exercise/Act Treatment Duration: Jan 13, 2021 Frequency: 5 times per week Estimated Hrs Per Day: .25 hour per day Rehab Potential: Fair Time/GCodes Start Time: 14:05 Stop Time: 14:24 Total Time Billed (hr/min): 19 Billed Treatment Time 1, ADL DANIKA LOERA OT Jan 06, 2021 14:39
[2021-01-06] MEDS: RIVAROXABAN 15 MG TABLET (XARELTO) PO SCH (17:06)
[2021-01-07] MEDS: RT-ALBUTEROL SULF 2.5 MG/3 ML PRE-MIX VIAL INH SCH ×4 (02:39→21:02)
[2021-01-07] MEDS: HYDROcodone/APAP 5 MG/325 MG (LORTAB) TAB PO PRN ×4 (04:00→20:42)
[2021-01-07 06:30] LABS: BASOPHILS % (AUTO) 0 % (0-10); EOSINOPHILS # (AUTO) 0.5 10^3/uL (0.0-0.3); EOSINOPHILS % (AUTO) 6 % (0-10); HEMATOCRIT 32 % (40-54); HEMOGLOBIN 10.1 g/dL (13.3-17.7); LYMPHOCYTES # (AUTO) 1.5 10^3/uL (1.0-4.0); LYMPHOCYTES % (AUTO) 18 % (12-44); MEAN CORPUSCULAR HEMOGLOBIN 28 pg (25-34); MEAN CORPUSCULAR HGB CONC 31 g/dL (32-36); MEAN CORPUSCULAR VOLUME 90 fL (80-99); MEAN PLATELET VOLUME 9.8 fL (9.0-12.2); MONOCYTES # (AUTO) 0.8 10^3/uL (0.0-1.0); MONOCYTES % (AUTO) 9 % (0-12); NEUTROPHILS # (AUTO) 5.3 10^3/uL (1.8-7.8); NEUTROPHILS % (AUTO) 65 % (42-75); PLATELET COUNT 378 10^3/uL (130-400); WHITE BLOOD COUNT 8.1 10^3/uL (4.3-11.0)
[2021-01-07 06:37] LABS: ALBUMIN 2.9 GM/DL (3.2-4.5); POTASSIUM 3.8 MMOL/L (3.6-5.0)
[2021-01-07 06:39] LABS: CALCIUM 8.9 MG/DL (8.5-10.1)
[2021-01-07 06:40] LABS: TOTAL PROTEIN 6.6 GM/DL (6.4-8.2)
[2021-01-07] MEDS: KCL 20 MEQ TAB (K-DUR) PO SCH (06:41)
[2021-01-07 06:42] LABS: BILIRUBIN,TOTAL 0.4 MG/DL (0.1-1.0)
[2021-01-07 06:43] LABS: CREATININE SERUM 0.99 MG/DL (0.60-1.30)
[2021-01-07] MEDS: metFORMIN 500 MG (GLUCOPHAGE) TAB PO SCH ×2 (07:45→15:16)
[2021-01-07] MEDS: DULoxetine 30 MG (CYMBALTA) CAP PO SCH ×2 (08:55→16:55)
[2021-01-07] MEDS: LOSARTAN 100 MG (COZAAR) TABLET PO SCH (08:55)
[2021-01-07] MEDS: CLOPIDOGREL 75 MG (PLAVIX) TABLET PO SCH (08:56)
[2021-01-07] MEDS: meTOprolol SUCCINATE 100 MG (TOPROL XL) TAB PO SCH (08:56)
[2021-01-07] MEDS: amLODIPine 10 MG (NORVASC) TAB PO SCH (08:56)
[2021-01-07] MEDS: FUROSEMIDE 40 MG (LASIX) TAB PO SCH (08:56)
[2021-01-07] MEDS: PANTOPRAZOLE 40 MG (PROTONIX) TAB PO SCH (08:56)
[2021-01-07] MEDS: KCL 10 MEQ TAB (MICRO K) PO SCH (08:56)
[2021-01-07] MEDS: ISOSORBIDE MONONITRATE 30 MG (IMDUR) TAB PO SCH (08:56)
[2021-01-07] MEDS: POVIDONE (BETADINE) 10% SOLN 240 ML BTL TOP SCH ×2 (08:57→20:27)
[2021-01-07] MEDS: inSUlin ASPART (NovoLOG) 1 UNIT/0.01 ML (CHARGE PER UNIT) SQ SCH ×3 (08:57→19:32)
[2021-01-07] MEDS: DICLOFENAC 1% GEL 100 GM (VOLTAREN) TUBE TOP SCH ×4 (08:58→20:29)
[2021-01-07] MEDS: MUPIROCIN 2% OINT 22 GM (BACTROBAN) TUBE TP SCH ×2 (08:58→20:28)
[2021-01-07] MEDS: GLIMEPIRIDE 1 MG (AMARYL) TAB PO SCH (09:24)
--- NOTE | 2021-01-07 10:56 | Physical Therapy Daily Note ---
PT Daily Note-Current Subjective Pt up in BR, just finished shower. Agreeable to work with PT. Reports (L) chest wall pain, requested Voltarin gel but no pain rating given. Mental Status Patient Orientation: Person, Place, Time, Situation Attachments: Oxygen Transfers SCALE: Activities may be completed with or without assistive devices. 7-Ratqdjabjb-eyxhumi completes the activity by him/herself with no assistance from a helper. 5-Set-up or Clean-up Assistance-helper sets up or cleans up; patient completes activity. [place] assists only prior to or following the activity. 4-Supervision or Touching Assistance-helper provides verbal cues and/or touching/steadying and/or contact guard assistance as patient completes activity. Assistance may be provided throughout the activity or intermittently. 3-Partial/Moderate Assistance-helper does LESS THAN HALF the effort. [place] lifts, holds or supports trunk or limbs, but provides less than half the effort. 2-Substantial/Maximal Assistance-helper does MORE THAN HALF the effort. [place] lifts or holds trunk or limbs and provides more than half the effort. 6-Jxmxpkkyn-mvlfvt does ALL the effort. Patient does none of the effort to complete the activity. Or, the assistance of 2 or more helpers is required for the patient to complete the activity. If activity was not attempted, code reason: 7-Patient Refused. 9-Not Applicable-not attempted and the patient did not perform the activity before the current illness, exacerbation or injury. 10-Not Attempted due to Environmental Limitations-(lack of equipment, weather restraints, etc.). 88-Not Attempted due to Medical Conditions or Safety Concerns. Sit to Stand (QC): 6 Toilet Transfer (QC): 6 Pt sat EOB to don pants and (B) socks (I) Weight Bearing Right Lower Extremity: Right Full Weight Bearing Left Lower Extremity: Left Full Weight Bearing Gait Training Does the Patient Walk?: Yes Distance: 200 Walk 10 feet (QC): 6 Walk 50 ft with 2 Turns(QC): 6 Walk 150 ft (QC): 6 Gait Persons Needed: 1 Gait Assistive Device: FWW Pt ambulated with slow, steady gait with FWW. One brief standing rest break due to SOB. Wheelchair Training Does the Pt Use a Wheelchair?: No Treatments Gait with FWW. Returned to seated EOB with nursing present to give meds, O2 in situ Assessment Current Status: Good Progress Pt tolerated well. PT Woodyard Operator Goals Woodyard Operator Goals PT Custodial Goals Time Frame: Jan 21, 2021 Roll Left & Right (QC): 6 Sit to Lying (QC): 6 Lying-Sitting on Side/Bed(QC): 6 Sit to Stand (QC): 6 Chair/Xvr-zy-Pyolt Xfer(QC): 6 Toilet Transfer (QC): 6 Walk 10 feet (QC): 4 Walk 50ft with 2 Turns (QC): 4 Walk 150 ft (QC): 4 PT Plan Problem List Problem List: Activity Tolerance, Functional Strength, Balance, Gait, Transfer, Bed Mobility Treatment/Plan Treatment Plan: Continue Plan of Care Treatment Plan: Bed Mobility, Education, Functional Activity Paul, Functional Strength, Gait, Safety, Therapeutic Exercise, Transfers Treatment Duration: Jan 21, 2021 Frequency: 6 times per week Estimated Hrs Per Day: .25 hour per day Patient and/or Family Agrees t: Yes Time/GCodes Time In: 0908 Time Out: 924 Total Billed Treatment Time: 17 Total Billed Treatment 1, FA x 17 KARINE PAVON DPT Jan 07, 2021 10:56
--- NOTE | 2021-01-07 11:14 | Progress Note - Hospitalist ---
Subjective HPI/CC On Admission Date Seen by Provider: Jan 07, 2021 Time Seen by Provider: 11:15 Subjective/Events-last exam Patient doing well Left shoulder improved Present left shoulder improving Urinating better Bowels moving Discussed epinephrine pen at discharge Review of Systems General: Fatigue, Malaise Objective Exam Vital Signs Vital Signs Date Time Temp Pulse Resp B/P (MAP) Pulse Ox O2 Delivery O2 Flow Rate FiO2 01/08/21 04:00 36.8 85 21 158/67 93 High Flow N/C 3.00 01/06/21 03:24 32 Capillary Refill : Less Than 3 Seconds General Appearance: No Apparent Distress, WD/WN, Chronically ill, Obese Respiratory: Lungs Clear, Normal Breath Sounds Cardiovascular: Regular Rate, Rhythm Neurologic/Psychiatric: Alert, Oriented x3, No Motor/Sensory Deficits, Normal Mood/Affect Results/Procedures Lab Patient resulted labs reviewed. Imaging: Reviewed Imaging Films, Reviewed Imaging Report Assessment/Plan Assessment and Plan Assess & Plan/Chief Complaint Assessment: Respiratory arrest with flash pulmonary edema possible neurogenic in origin with normal BNP and negative troponin - Possibly related to multiple allergies, may be an a-typical presentation of anaphylaxis (is allergic to sulfa, but taking Glimepiride - a sulfonylureas) Ventilator dependent Chronically debilitated Diabetes Plan: Ventilator management appreciated Supportive care Work-up in progress 01/03/2021: Supportive care PT and OT Home meds 01/04/2021 Supportive care PT and OT 01/05/2021 Supportive care Pulmonary consult for recurring flash pulmonary edema PT and OT 01/06/2021 Supportive care Pulmonary consult for recurring flash pulmonary edema - possible type I HSS origin? PT and OT Planning D/C to [facility] 01/09/2021 01/07/2021: [facility] Saturday Needs epinephrine pen Critical Care Critically Ill Patient DEIRDRE DIANA DO Jan 07, 2021 11:14
--- NOTE | 2021-01-07 15:43 | Cardiology Progress Note ---
Progress Note-Cardiology Events since last exam Date Seen by Provider: Jan 07, 2021 Time Seen by Provider: 15:38 Events since last exam We are following him due to coronary artery disease and heart failure. He still has pain in his sternum from where he states he had CPR. His left shoulder pain is getting better. He believes he landed on his left shoulder when he collapsed and fell out of bed. His breathing is improved. He denies palpitations, syncope, or ankle edema. Certain portions of this document may have been dictated utilizing voice recognition technology. Inherent to this technology, typographical and grammatical errors may exist. As much as I am diligent to identify and correct these mistakes, some errors may remain in the document. Vitals Last set of Vitals Signs Vital Signs 01/06/21 01/07/21 03:24 11:10 Temp 36.4 Pulse 90 Resp 20 B/P (MAP) 159/83 Pulse Ox 93 O2 Delivery High Flow N/C O2 Flow Rate 3.00 FiO2 32 Labs Labs Laboratory Tests 01/07/21 05:55 Exam Vital Signs Vital Signs Date Time Temp Pulse Resp B/P (MAP) Pulse Ox O2 Delivery O2 Flow Rate FiO2 01/07/21 11:10 36.4 90 20 159/83 93 High Flow N/C 3.00 01/06/21 03:24 32 Physical Exam General: Alert. No acute distress. He is obese. Eye: No xanthelasma. HENT: Normocephalic. Neck: Jugular venous pressure does not appear elevated. Respiratory: Lungs are clear to auscultation. Respirations are non-labored. Breath sounds are equal. Symmetrical chest wall expansion. Cardiovascular: Normal rate. Regular rhythm. No murmur. No gallop. No edema. Gastrointestinal: Soft. Normal bowel sounds. Skin: Warm. Dry. Neurologic: Alert and oriented to person, place, time. Cranial nerves 3-11 grossly intact. Psychiatric: Cooperative. Appropriate mood & affect. Labs Laboratory Tests Test 01/06/21 21:20 01/07/21 05:55 01/07/21 11:17 Range/Units Glucometer 148 H 215 H 70-110 MG/DL White Blood Count 8.1 4.3-11.0 10^3/uL Red Blood Count 3.58 L 4.30-5.52 10^6/uL Hemoglobin 10.1 L 13.3-17.7 g/dL Hematocrit 32 L 40-54 % Mean Corpuscular Volume 90 80-99 fL Mean Corpuscular Hemoglobin 28 25-34 pg Mean Corpuscular Hemoglobin Concent 31 L 32-36 g/dL Red Cell Distribution Width 13.2 10.0-14.5 % Platelet Count 378 130-400 10^3/uL Mean Platelet Volume 9.8 9.0-12.2 fL Immature Granulocyte % (Auto) 1 % Neutrophils (%) (Auto) 65 42-75 % Lymphocytes (%) (Auto) 18 12-44 % Monocytes (%) (Auto) 9 0-12 % Eosinophils (%) (Auto) 6 0-10 % Basophils (%) (Auto) 0 0-10 % Neutrophils # (Auto) 5.3 1.8-7.8 10^3/uL Lymphocytes # (Auto) 1.5 1.0-4.0 10^3/uL Monocytes # (Auto) 0.8 0.0-1.0 10^3/uL Eosinophils # (Auto) 0.5 H 0.0-0.3 10^3/uL Basophils # (Auto) 0.0 0.0-0.1 10^3/uL Immature Granulocyte # (Auto) 0.1 0.0-0.1 10^3/uL Sodium Level 139 135-145 MMOL/L Potassium Level 3.8 3.6-5.0 MMOL/L Chloride Level 101 98-107 MMOL/L Carbon Dioxide Level 28 21-32 MMOL/L Anion Gap 10 5-14 MMOL/L Blood Urea Nitrogen 13 7-18 MG/DL Creatinine 0.99 0.60-1.30 MG/DL Estimat Glomerular Filtration Rate 77 BUN/Creatinine Ratio 13 Glucose Level 189 H 70-105 MG/DL Calcium Level 8.9 8.5-10.1 MG/DL Corrected Calcium 9.8 8.5-10.1 MG/DL Total Bilirubin 0.4 0.1-1.0 MG/DL Aspartate Amino Transf (AST/SGOT) 18 5-34 U/L Alanine Aminotransferase (ALT/SGPT) 17 0-55 U/L Alkaline Phosphatase 63 40-136 U/L Total Protein 6.6 6.4-8.2 GM/DL Albumin 2.9 L 3.2-4.5 GM/DL Diagnosis/Problems Diagnosis/Problems (1) Acute on chronic heart failure with preserved ejection fraction (HFpEF) Assessment & Plan: Symptomatically improved. It is not entirely clear what may have precipitated this recent decompensation. However, his blood pressures are elevated at times and this raises the question of possible flash pulmonary edema due to severe hypertension. I will obtain a follow-up chest x-ray in the morning. We will continue the present combination of antihypertensive medicat ion and oral furosemide. (2) Coronary artery disease without angina pectoris Assessment & Plan: He had a recent stent to the left circumflex system. He is taking clopidogrel and rivaroxaban for prevention of stent thrombosis. He is allergic to aspirin. His current chest discomfort does not feel like his angina and is most likely related to the CPR. We will continue amlodipine, metoprolol and statin medication. (3) Primary hypertension Assessment & Plan: His blood pressures are intermittently elevated. If this persists, we may need to make some adjustments to his antihypertensive medication. (4) Mixed hyperlipidemia Assessment & Plan: Continue statin medication. I will add a lipid panel to the blood work that was obtained this morning. KATE CAO JR, MD Jan 07, 2021 15:43
[2021-01-07 15:56] LABS: TRIGLYCERIDES 138 MG/DL (<150); VLDL CHOLESTEROL 28 MG/DL (5-40)
[2021-01-07 16:00] LABS: CHOLESTEROL 110 MG/DL (< 200)
[2021-01-07 16:01] LABS: HDL CHOLESTEROL 35 MG/DL (40-60)
[2021-01-07] MEDS: RIVAROXABAN 15 MG TABLET (XARELTO) PO SCH (16:54)
[2021-01-07] MEDS: ONDANSETRON 4 MG/2 ML (SDV) Z0FRAN IVP PRN (18:20)
[2021-01-08] MEDS: ONDANSETRON 4 MG/2 ML (SDV) Z0FRAN IVP PRN ×2 (00:52→13:27)
[2021-01-08] MEDS: HYDROcodone/APAP 5 MG/325 MG (LORTAB) TAB PO PRN ×4 (00:53→21:39)
[2021-01-08] MEDS: ALPRAZolam 0.5 MG (XANAX) TAB PO PRN ×3 (02:41→21:39)
[2021-01-08] MEDS: RT-ALBUTEROL SULF 2.5 MG/3 ML PRE-MIX VIAL INH SCH ×4 (03:50→21:21)
[2021-01-08] MEDS: KCL 20 MEQ TAB (K-DUR) PO SCH (06:16)
[2021-01-08 07:25] LABS: BASOPHILS % (AUTO) 0 % (0-10); EOSINOPHILS # (AUTO) 0.5 10^3/uL (0.0-0.3); EOSINOPHILS % (AUTO) 5 % (0-10); HEMATOCRIT 33 % (40-54); HEMOGLOBIN 10.2 g/dL (13.3-17.7); LYMPHOCYTES # (AUTO) 1.2 10^3/uL (1.0-4.0); LYMPHOCYTES % (AUTO) 12 % (12-44); MEAN CORPUSCULAR HEMOGLOBIN 29 pg (25-34); MEAN CORPUSCULAR HGB CONC 31 g/dL (32-36); MEAN CORPUSCULAR VOLUME 91 fL (80-99); MEAN PLATELET VOLUME 9.5 fL (9.0-12.2); MONOCYTES # (AUTO) 0.8 10^3/uL (0.0-1.0); MONOCYTES % (AUTO) 8 % (0-12); NEUTROPHILS # (AUTO) 7.5 10^3/uL (1.8-7.8); NEUTROPHILS % (AUTO) 74 % (42-75); PLATELET COUNT 412 10^3/uL (130-400); WHITE BLOOD COUNT 10.2 10^3/uL (4.3-11.0)
[2021-01-08 07:33] LABS: ALBUMIN 2.9 GM/DL (3.2-4.5)
[2021-01-08 07:35] LABS: CALCIUM 8.8 MG/DL (8.5-10.1)
[2021-01-08 07:36] LABS: TOTAL PROTEIN 6.2 GM/DL (6.4-8.2)
[2021-01-08 07:38] LABS: BILIRUBIN,TOTAL 0.5 MG/DL (0.1-1.0)
[2021-01-08 07:40] LABS: CREATININE SERUM 1.12 MG/DL (0.60-1.30)
[2021-01-08] MEDS: LOSARTAN 100 MG (COZAAR) TABLET PO SCH (09:16)
[2021-01-08] MEDS: KCL 10 MEQ TAB (MICRO K) PO SCH (09:16)
[2021-01-08] MEDS: meTOprolol SUCCINATE 100 MG (TOPROL XL) TAB PO SCH (09:16)
[2021-01-08] MEDS: amLODIPine 10 MG (NORVASC) TAB PO SCH (09:16)
[2021-01-08] MEDS: DULoxetine 30 MG (CYMBALTA) CAP PO SCH ×2 (09:16→17:36)
[2021-01-08] MEDS: PANTOPRAZOLE 40 MG (PROTONIX) TAB PO SCH (09:16)
[2021-01-08] MEDS: FUROSEMIDE 40 MG (LASIX) TAB PO SCH (09:16)
[2021-01-08] MEDS: CLOPIDOGREL 75 MG (PLAVIX) TABLET PO SCH (09:16)
[2021-01-08] MEDS: ISOSORBIDE MONONITRATE 30 MG (IMDUR) TAB PO SCH (09:16)
[2021-01-08] MEDS: MUPIROCIN 2% OINT 22 GM (BACTROBAN) TUBE TP SCH ×2 (09:17→21:33)
[2021-01-08] MEDS: POVIDONE (BETADINE) 10% SOLN 240 ML BTL TOP SCH ×2 (09:17→21:31)
[2021-01-08] MEDS: DICLOFENAC 1% GEL 100 GM (VOLTAREN) TUBE TOP SCH ×4 (09:17→21:33)
[2021-01-08] MEDS: metFORMIN 500 MG (GLUCOPHAGE) TAB PO SCH ×2 (09:19→18:00)
[2021-01-08] MEDS: inSUlin ASPART (NovoLOG) 1 UNIT/0.01 ML (CHARGE PER UNIT) SQ SCH ×3 (09:21→21:30)
[2021-01-08] MEDS: GLIMEPIRIDE 1 MG (AMARYL) TAB PO SCH (09:24)
--- NOTE | 2021-01-08 10:47 | Diagnostic Imaging Report ---
CLINICAL INDICATION: Patient with flash pulmonary edema, cough, shortness of air. Exam: Chest x-ray PA and lateral views. Comparisons: Chest x-ray dated 01/05/2021. Findings: Stable cardiomegaly. The pulmonary vasculature is within normal limits. There is blunting of the costophrenic angle regions concerning for small bilateral pleural effusions. There is stable minimal bibasilar atelectasis. There are degenerative spurs involving the spine. IMPRESSION: 1: There is stable cardiomegaly. There is no significant pulmonary vascular congestion. 2: There are small bilateral pleural effusions and mild bibasilar atelectasis. Dictated by: Dictated on workstation # [id number]
--- NOTE | 2021-01-08 10:54 | Progress Note - Hospitalist ---
Subjective HPI/CC On Admission Date Seen by Provider: Jan 08, 2021 Time Seen by Provider: 11:00 Subjective/Events-last exam Patient doing well Denies any other issues Pain left shoulder needs [facility] Labs reviewed Needs EpiPen just in case he is exposed to allergen again Review of Systems General: Fatigue, Malaise Musculoskeletal: arm pain Objective Exam Vital Signs Vital Signs Date Time Temp Pulse Resp B/P (MAP) Pulse Ox O2 Delivery O2 Flow Rate FiO2 01/08/21 19:59 36.4 80 18 151/80 91 High Flow N/C 3.00 01/06/21 03:24 32 Capillary Refill : Less Than 3 Seconds General Appearance: No Apparent Distress, WD/WN, Chronically ill Respiratory: Lungs Clear, Normal Breath Sounds Cardiovascular: Regular Rate, Rhythm Neurologic/Psychiatric: Alert, Oriented x3, No Motor/Sensory Deficits, Normal Mood/Affect Results/Procedures Lab Laboratory Tests 01/08/21 07:09 Patient resulted labs reviewed. Imaging: Reviewed Imaging Films, Reviewed Imaging Report Assessment/Plan Assessment and Plan Assess & Plan/Chief Complaint Assessment: Respiratory arrest with flash pulmonary edema possible neurogenic in origin with normal BNP and negative troponin - Possibly related to multiple allergies, may be an a-typical presentation of anaphylaxis (is allergic to sulfa, but taking Glimepiride - a sulfonylureas) Ventilator dependent Chronically debilitated Diabetes Plan: Ventilator management appreciated Supportive care Work-up in progress 01/03/2021: Supportive care PT and OT Home meds 01/04/2021 Supportive care PT and OT 01/05/2021 Supportive care Pulmonary consult for recurring flash pulmonary edema PT and OT 01/06/2021 Supportive care Pulmonary consult for recurring flash pulmonary edema - possible type I HSS origin? PT and OT Planning D/C to [facility] 01/09/2021 01/07/2021: [facility] Saturday Needs epinephrine pen 01/08/2021: Supportive care Critical Care Critically Ill Patient DEIRDRE DIANA DO Jan 08, 2021 10:54
--- NOTE | 2021-01-08 15:17 | Cardiology Progress Note ---
Progress Note-Cardiology Events since last exam Date Seen by Provider: Jan 08, 2021 Time Seen by Provider: 15:11 Events since last exam We are following him due to coronary artery disease and heart failure. Last evening he had more pain in his sternum where he had CPR. This caused him to have a panic attack. He was given a Xanax and then fell asleep. Today he feels a little bit better. He denies dyspnea, palpitations, syncope, or ankle edema. Certain portions of this document may have been dictated utilizing voice recognition technology. Inherent to this technology, typographical and grammatical errors may exist. As much as I am diligent to identify and correct these mistakes, some errors may remain in the document. Vitals Last set of Vitals Signs Vital Signs 01/06/21 01/08/21 01/08/21 03:24 11:40 14:27 Temp 36.9 Pulse 81 Resp 16 B/P (MAP) 149/80 Pulse Ox 92 O2 Delivery Nasal Cannula O2 Flow Rate 3.00 FiO2 32 Labs Labs Laboratory Tests 01/08/21 07:09 Exam Vital Signs Vital Signs Date Time Temp Pulse Resp B/P (MAP) Pulse Ox O2 Delivery O2 Flow Rate FiO2 01/08/21 14:27 92 Nasal Cannula 3.00 01/08/21 11:40 36.9 81 16 149/80 01/06/21 03:24 32 Physical Exam General: Alert. No acute distress. He is obese. Eye: No xanthelasma. HENT: Normocephalic. Neck: Jugular venous pressure does not appear elevated. Respiratory: Lungs are clear to auscultation. Respirations are non-labored. Breath sounds are equal. Symmetrical chest wall expansion. Cardiovascular: Normal rate. Regular rhythm. No murmur. No gallop. No edema. Gastrointestinal: Soft. Normal bowel sounds. Skin: Warm. Dry. Sternum is tender to palpation. Neurologic: Alert and oriented to person, place, time. Cranial nerves 3-11 grossly intact. Psychiatric: Cooperative. Appropriate mood & affect. Labs Laboratory Tests Test 01/07/21 15:45 01/07/21 20:06 01/08/21 00:33 01/08/21 05:53 Range/Units Glucometer 195 H 129 H 187 H 195 H 70-110 MG/DL Test 01/08/21 07:09 01/08/21 11:43 Range/Units White Blood Count 10.2 4.3-11.0 10^3/uL Red Blood Count 3.58 L 4.30-5.52 10^6/uL Hemoglobin 10.2 L 13.3-17.7 g/dL Hematocrit 33 L 40-54 % Mean Corpuscular Volume 91 80-99 fL Mean Corpuscular Hemoglobin 29 25-34 pg Mean Corpuscular Hemoglobin Concent 31 L 32-36 g/dL Red Cell Distribution Width 13.2 10.0-14.5 % Platelet Count 412 H 130-400 10^3/uL Mean Platelet Volume 9.5 9.0-12.2 fL Immature Granulocyte % (Auto) 1 % Neutrophils (%) (Auto) 74 42-75 % Lymphocytes (%) (Auto) 12 12-44 % Monocytes (%) (Auto) 8 0-12 % Eosinophils (%) (Auto) 5 0-10 % Basophils (%) (Auto) 0 0-10 % Neutrophils # (Auto) 7.5 1.8-7.8 10^3/uL Lymphocytes # (Auto) 1.2 1.0-4.0 10^3/uL Monocytes # (Auto) 0.8 0.0-1.0 10^3/uL Eosinophils # (Auto) 0.5 H 0.0-0.3 10^3/uL Basophils # (Auto) 0.0 0.0-0.1 10^3/uL Immature Granulocyte # (Auto) 0.1 0.0-0.1 10^3/uL Sodium Level 138 135-145 MMOL/L Potassium Level 4.0 3.6-5.0 MMOL/L Chloride Level 100 98-107 MMOL/L Carbon Dioxide Level 27 21-32 MMOL/L Anion Gap 11 5-14 MMOL/L Blood Urea Nitrogen 12 7-18 MG/DL Creatinine 1.12 0.60-1.30 MG/DL Estimat Glomerular Filtration Rate 67 BUN/Creatinine Ratio 11 Glucose Level 222 H 70-105 MG/DL Calcium Level 8.8 8.5-10.1 MG/DL Corrected Calcium 9.7 8.5-10.1 MG/DL Total Bilirubin 0.5 0.1-1.0 MG/DL Aspartate Amino Transf (AST/SGOT) 21 5-34 U/L Alanine Aminotransferase (ALT/SGPT) 15 0-55 U/L Alkaline Phosphatase 75 40-136 U/L Total Protein 6.2 L 6.4-8.2 GM/DL Albumin 2.9 L 3.2-4.5 GM/DL Glucometer 188 H 70-110 MG/DL Diagnosis/Problems Diagnosis/Problems (1) Acute on chronic heart failure with preserved ejection fraction (HFpEF) Assessment & Plan: His most recent echocardiogram on 12/24/2020 showed an ejection fraction of 60-65%. He is symptomatically improved. It is not entirely clear what may have precipitated this recent decompensation. However, his blood pressures are elevated at times and this raises the question of possible flash pulmonary edema due to severe hypertension. His chest x-ray from this morning did not show any overt pulmonary edema. We will continue the present combination of antihypertensive medication and oral furosemide. (2) Coronary artery disease without angina pectoris Assessment & Plan: He had a drug-eluting stent to the left circumflex system on 12/29/2020. He is taking clopidogrel and rivaroxaban for prevention of stent thrombosis. He is allergic to aspirin. His current chest discomfort does not f eel like his angina and is most likely related to the CPR. We will continue amlodipine, metoprolol and statin medication. (3) Primary hypertension Assessment & Plan: His blood pressures are intermittently elevated. If this persists, we may need to make some adjustments to his antihypertensive medication. (4) Mixed hyperlipidemia Assessment & Plan: His LDL level from this admission is under very good control on the present dose of statin medication. (5) Obesity Assessment & Plan: He needs to work on weight loss. KATE CAO JR, MD Jan 08, 2021 15:17
[2021-01-08] MEDS: RIVAROXABAN 15 MG TABLET (XARELTO) PO SCH (17:36)
[2021-01-09] MEDS: RT-ALBUTEROL SULF 2.5 MG/3 ML PRE-MIX VIAL INH SCH ×2 (02:12→07:17)
[2021-01-09] MEDS: CYCLOBENZAPRINE 10 MG (FLEXERIL) TAB PO PRN (02:29)
[2021-01-09] MEDS: HYDROcodone/APAP 5 MG/325 MG (LORTAB) TAB PO PRN (02:29)
[2021-01-09] MEDS: KCL 20 MEQ TAB (K-DUR) PO SCH (05:37)
[2021-01-09 06:58] LABS: BASOPHILS % (AUTO) 0 % (0-10); EOSINOPHILS # (AUTO) 0.6 10^3/uL (0.0-0.3); EOSINOPHILS % (AUTO) 7 % (0-10); HEMATOCRIT 33 % (40-54); HEMOGLOBIN 10.3 g/dL (13.3-17.7); LYMPHOCYTES # (AUTO) 1.2 10^3/uL (1.0-4.0); LYMPHOCYTES % (AUTO) 15 % (12-44); MEAN CORPUSCULAR HEMOGLOBIN 29 pg (25-34); MEAN CORPUSCULAR HGB CONC 31 g/dL (32-36); MEAN CORPUSCULAR VOLUME 93 fL (80-99); MEAN PLATELET VOLUME 9.8 fL (9.0-12.2); MONOCYTES # (AUTO) 0.8 10^3/uL (0.0-1.0); MONOCYTES % (AUTO) 10 % (0-12); NEUTROPHILS # (AUTO) 5.3 10^3/uL (1.8-7.8); NEUTROPHILS % (AUTO) 67 % (42-75); PLATELET COUNT 449 10^3/uL (130-400); WHITE BLOOD COUNT 7.9 10^3/uL (4.3-11.0)
[2021-01-09 07:37] LABS: ALBUMIN 2.9 GM/DL (3.2-4.5); BILIRUBIN,TOTAL 0.5 MG/DL (0.1-1.0); CALCIUM 9.2 MG/DL (8.5-10.1); CREATININE SERUM 1.05 MG/DL (0.60-1.30); POTASSIUM 3.9 MMOL/L (3.6-5.0); TOTAL PROTEIN 6.4 GM/DL (6.4-8.2)
[2021-01-09] MEDS: metFORMIN 500 MG (GLUCOPHAGE) TAB PO SCH (09:14)
[2021-01-09] MEDS: DULoxetine 30 MG (CYMBALTA) CAP PO SCH (09:14)
[2021-01-09] MEDS: MUPIROCIN 2% OINT 22 GM (BACTROBAN) TUBE TP SCH (09:15)
[2021-01-09] MEDS: inSUlin ASPART (NovoLOG) 1 UNIT/0.01 ML (CHARGE PER UNIT) SQ SCH ×2 (09:15→13:25)
[2021-01-09] MEDS: GLIMEPIRIDE 1 MG (AMARYL) TAB PO SCH (09:15)
[2021-01-09] MEDS: CLOPIDOGREL 75 MG (PLAVIX) TABLET PO SCH (09:15)
[2021-01-09] MEDS: FUROSEMIDE 40 MG (LASIX) TAB PO SCH (09:15)
[2021-01-09] MEDS: ISOSORBIDE MONONITRATE 30 MG (IMDUR) TAB PO SCH (09:15)
[2021-01-09] MEDS: meTOprolol SUCCINATE 100 MG (TOPROL XL) TAB PO SCH (09:15)
[2021-01-09] MEDS: LOSARTAN 100 MG (COZAAR) TABLET PO SCH (09:15)
[2021-01-09] MEDS: PANTOPRAZOLE 40 MG (PROTONIX) TAB PO SCH (09:15)
[2021-01-09] MEDS: KCL 10 MEQ TAB (MICRO K) PO SCH (09:15)
[2021-01-09] MEDS: amLODIPine 10 MG (NORVASC) TAB PO SCH (09:15)
[2021-01-09] MEDS: POVIDONE (BETADINE) 10% SOLN 240 ML BTL TOP SCH (09:16)
[2021-01-09] MEDS: DICLOFENAC 1% GEL 100 GM (VOLTAREN) TUBE TOP SCH ×2 (09:16→13:26)
--- NOTE | 2021-01-09 09:26 | Cardiology Progress Note ---
Subjective Date Seen by Provider: Jan 09, 2021 Time Seen by Provider: 08:45 Subjective/Events-last exam Patient is sitting up in bed, no new complaints. Denies any chest pain. Review of Systems General: No Chills, No Night Sweats, No Fatigue, No Malaise, No Appetite, No Other HEENT: No Head Aches, No Visual Changes, No Eye Pain, No Ear Pain, No Dysphasia, No Sinus Congestion, No Post Nasal Drip, No Sore Throat, No Other Pulmonary: Dyspnea; No Cough, No Pleuritic Chest Pain, No Other Cardiovascular: Chest Pain; No: Palpitations, Orthopnea, Paroxysmal Noc. Dyspnea, Edema, Lt Headedness, Other Objective-Cardiology Exam Last Set of Vital Signs Vital Signs 01/06/21 01/09/21 03:24 08:00 Temp 36.2 Pulse 88 Resp 20 B/P (MAP) 170/85 Pulse Ox 91 O2 Delivery High Flow N/C O2 Flow Rate 3.00 FiO2 32 I&O l Intake and Output 01/09/21 00:00 Intake Total 1090 ml Balance 1090 ml Intake Oral 1090 ml IV Total 0 ml # Voids 6 # Bowel Movements 1 General: Alert, Oriented X3, Cooperative HEENT: Atraumatic Neck: Supple Lungs: Clear to Auscultation, Normal Air Movement Heart: Regular Rate, Normal S1, Normal S2 Abdomen: Normal Bowel Sounds Extremities: No Clubbing, No Cyanosis Skin: No Rashes Neuro: Normal Speech Psych/Mental Status: Mental Status NL Results Lab Laboratory Tests 01/09/21 06:05 A/P-Cardiology Admission Diagnosis Acute respiratory failure Non-ST elevation myocardial infarction Hypertension Hyperlipidemia Assessment/Plan Recurrent acute respiratory failure with flash pulmonary edema, was intubated last week then discharged, continue to have recurrent episodes of severe shortness of breath late in the evening then improved later during the day. He was discharged on oxygen, currently return to the hospital intubated. In flash pulmonary edema. Continue with aggressive diuretics, recommend initiate weaning Underlying etiology of his flash pulmonary edema is unknown, BNP is mildly elevated, cardiac enzymes are mildly elevated. No other signs of infection. Clinically patient is better today. Continue on current treatment Patient is planning to go to a [facility] for physical therapy and continuing care. Chest pain, mild elevation in troponin, probably type II myocardial infarction secondary to respiratory failure and hypoxemia, I will evaluate troponin level and EKG. Continue to monitor Patient is still having musculoskeletal chest pain, pain on coughing and taking a deep breath. History of chest pain with chronic stable angina. Restart isosorbide and evaluate tolerance and response Echo 12/24/20: LVEF 60-65%, mild conc LVH, PASP 20-25 mmHg. Coronary artery disease- Cardiac catheterization on December 09, 2017 revealing multivessel coronary artery disease with severe stenosis in the proximal circumflex artery with primary stenting using Rocío 3.012 mm expanded to 3.25 mm with excellent results. Severe stenosis in the mid right coronary artery with primary stenting using 2.512 mm Rocío expanded to 2.75 with excellent results. Mild to moderate disease in the proximal LAD, severe stenosis at the ostium of first diagonal artery that is very small artery. Cardiac catheterization done February 04, 2019 revealed total occlusion of the left PDA off the circumflex artery, patent stent in the proximal circumflex. Patent stent in the midright coronary artery. Mild disease in the LAD. Cardiac catheterization was done on December 29, 2020 showing patent stent in the proximal circumflex, right coronary artery. Severe stenosis at the distal circumflex artery, primary stenting using 2.25 x 23 mm expanded to 2.35 mm with excellent results. Has severe stenosis/subtotal occlusion at the distal right posterior descending artery, very small artery not amendable to intervention. Mild to moderate disease in the LAD. Maintained on Plavix and Xarelto. Allergy to aspirin causing angioedema, Hypertension, mildly elevated, continue to monitor. Hyperlipidemia-continue to monitor lipids Frequent ventricular ectopy with PVC and ventricular trigeminy, maintained on beta kelli. Mild bilateral carotid stenosis, ultrasound was done in December 2018, continue to monitor. Family history of heart disease History of psoriasis. Diabetes mellitus, admitted with DKA, has had previous hospitalizations for DKA. Management per medical services Obesity, BMI is 36, we discussed weight loss and exercise Supervisory-Addendum Brief Supervisory Addendum Participated in pt care: history, MDM, physical Personally performed: exam, history, MDM Care discussed with: ONOFRE Results interpretation: Verified all documentation Notes: Patient was seen and evaluated with Marsha, examination performed, management plan was discussed, agree with the current scribed note, I made few changes to the note using Italic font Patient was seen during physical therapy session, doing well Still complaining of right shoulder pain and pain across his chest with movement and deep inspiration coughing He continues to improve with his shortness of breath but still have occasional episode of dyspnea at night Tolerating the current dose of diuretics well. Continue to monitor renal function and electrolytes MARSHA ZHANG Jan 09, 2021 09:26 CROW KNIGHT MD Jan 09, 2021 10:02
--- NOTE | 2021-01-09 10:06 | Physical Therapy Daily Note ---
PT Daily Note-Current Subjective Patient continues to c/o left shoulder and sternal pain. Agrees to PT. Mental Status Patient Orientation: Normal For Age Attachments: Oxygen Transfers SCALE: Activities may be completed with or without assistive devices. 8-Shcxsoemlh-ppqwfke completes the activity by him/herself with no assistance from a helper. 5-Set-up or Clean-up Assistance-helper sets up or cleans up; patient completes activity. [place] assists only prior to or following the activity. 4-Supervision or Touching Assistance-helper provides verbal cues and/or touching/steadying and/or contact guard assistance as patient completes ac tivity. Assistance may be provided throughout the activity or intermittently. 3-Partial/Moderate Assistance-helper does LESS THAN HALF the effort. [place] lifts, holds or supports trunk or limbs, but provides less than half the effort. 2-Substantial/Maximal Assistance-helper does MORE THAN HALF the effort. [place] lifts or holds trunk or limbs and provides more than half the effort. 5-Gcutgrnqz-hmthho does ALL the effort. Patient does none of the effort to complete the activity. Or, the assistance of 2 or more helpers is required for the patient to complete the activity. If activity was not attempted, code reason: 7-Patient Refused. 9-Not Applicable-not attempted and the patient did not perform the activity before the current illness, exacerbation or injury. 10-Not Attempted due to Environmental Limitations-(lack of equipment, weather restraints, etc.). 88-Not Attempted due to Medical Conditions or Safety Concerns. Lying to Sitting/Side of Bed(Q: 6 Sit to Stand (QC): 6 patient dons sweat pants and socks with set up Weight Bearing Right Lower Extremity: Right Full Weight Bearing Left Lower Extremity: Left Full Weight Bearing Gait Training Does the Patient Walk?: Yes Distance: 500' Walk 10 feet (QC): 5 Walk 50 ft with 2 Turns(QC): 5 Walk 150 ft (QC): 5 Gait Assistive Device: FWW slow, steady gait sequence with no deviation Assessment Patient does have increase SOA with activity with quick recovery. Patient sitting EOB with call light and phone in reach. PT Primary [place] Goals Primary [place] Goals PT Primary [place] Goals Time Frame: Jan 21, 2021 Roll Left & Right (QC): 6 Sit to Lying (QC): 6 Lying-Sitting on Side/Bed(QC): 6 Sit to Stand (QC): 6 Chair/Jyt-ih-Npsoh Xfer(QC): 6 Toilet Transfer (QC): 6 Walk 10 feet (QC): 4 Walk 50ft with 2 Turns (QC): 4 Walk 150 ft (QC): 4 PT Plan Treatment/Plan Treatment Plan: Continue Plan of Care Treatment Plan: Bed Mobility, Education, Functional Activity Paul, Functional Strength, Gait, Safety, Therapeutic Exercise, Transfers Treatment Duration: Jan 21, 2021 Frequency: 6 times per week Estimated Hrs Per Day: .25 hour per day Patient and/or Family Agrees t: Yes Time/GCodes Time In: 929 Time Out: 940 Total Billed Treatment Time: 11 Total Billed Treatment 1 visit FA 11 min DARLENE CARREON PT Jan 09, 2021 10:06
[2021-01-09] MEDS ORDERED: PANT40TA52 PO ×2 (11:41)
[2021-01-09] MEDS ORDERED: EPIN0.3P3 IJ ×2 (11:41)
[2021-01-09] MEDS ORDERED: DICL100G13 TOP ×2 (11:41)
--- NOTE | 2021-01-09 11:44 | Discharge Inst-Skilled Nursing ---
Discharge Inst-Skilled NF Patient Instructions Patient Problems: Pulmonary edema Suspected anaphylaxis Diabetes Hypertension CAD COPD Consult/Follow Up/Orders Skilled NF Admit to: [facility] Certifications SNF I certify that SNF services are required to be given on an inpatient basis because of the above named patient's need for retirement care on a continuing basis for the conditions(s) for which he/she was receiving inpatient hospital services prior to his/her transfer to the SNF. [facility] Facility Order: Physical Therapy-Evaluate & Treat Oxygen Delivery Method: High Flow N/C (bipap at night for sleep apnea) Oxygen Flow Rate L/min (Range): 3 Discharge Diet: ADA Diet Daily Activity as Tolerated: Yes Discharge Medications New, Converted or Re-Newed RX: Transmitted to Pharmacy New Medications: Epinephrine (Epipen 2-Kobe) 0.3 Mg/0.3 Ml Auto.injct 0.3 MG IJ PRN PRN for allergic reaction, #2 EACH 0 Refills Diclofenac Sodium (Diclofenac Sodium) 100 Gm Gel..gram. 2 GM TOP QID PRN for PAIN-MODERATE (5-7) MDD 32 grams, #60 GM 0 Refills Pantoprazole Sodium (Pantoprazole Sodium) 40 Mg Tablet.dr 40 MG PO DAILY, #30 TAB 0 Refills Continued Medications: Amlodipine Besylate (Amlodipine Besylate) 10 Mg Tablet 10 MG PO DAILY, TAB Atorvastatin Calcium (Lipitor) 40 Mg Tablet 40 MG PO HS, TAB Clopidogrel Bisulfate (Plavix) 75 Mg Tablet 75 MG PO DAILY, TAB Cyclobenzaprine HCl (Cyclobenzaprine HCl) 5 Mg Tablet 5 MG PO TID PRN for MUSCLE CRAMPS, TAB Duloxetine HCl (Duloxetine HCl) 60 Mg Capsule.dr 60 MG PO 0900,1700, CAP Furosemide (Furosemide) 40 Mg Tablet 40 MG PO DAILY, TAB Insulin Aspart (Novolog Flexpen) 300 Units/3 Ml Solution 5 UNITS SQ TID, EA Insulin Detemir (Levemir Flextouch) 100 Unit/1 Ml Insuln.pen 15 UNIT SQ HS, EA Isosorbide Mononitrate (Isosorbide Mononitrate ER) 30 Mg Tab.er.24h 30 MG PO DAILY, TAB Losartan Potassium (Losartan Potassium) 100 Mg Tablet 100 MG PO DAILY, TAB Metoprolol Succinate (Metoprolol Succinate) 100 Mg Tab.er.24h 100 MG PO DAILY, TAB Mupirocin (Mupirocin) 22 Gm Oint...g. 1 APPLIC TP BID for 7 Days, EA FILLED 12-21-2020 #1/7 DAY SUPPLY Nitroglycerin (Nitroglycerin) 0.4 Mg Tab.subl 0.4 MG SL UD PRN for CHEST PAIN, TAB Potassium Chloride (Potassium Chloride) 10 Meq Tab.er.prt 10 MEQ PO DAILY Rivaroxaban (Xarelto Tablet) 15 Mg Tablet 15 MG PO DAILY@1700, TAB Sitagliptin Phos/Metformin HCl (Janumet 50-1,000 mg Tablet) 1 Each Tablet 1 EACH PO 0900,1700, TAB Tobramycin/Dexamethasone (Tobradex Eye Ointment) 3.5 Gm Oint 1 APPLIC OP TID for 7 Days, EA FILLED 12-21-2020 #1/7 DAY SUPPLY Discontinued Medications: Glimepiride (Amaryl) 1 Mg Tab 1 MG PO DAILY, TAB Prednisone (Prednisone) 20 Mg Tab 20 TAB PO DAILY, #11 TAB 2 tabs x 3 days then 1 tab x 3 days then 1/2 tab x 4 days Reza Paz Jan 09, 2021 11:42 REZA PAZ MD Jan 09, 2021 11:44
[2021-01-09 11:45] VITALS: BP 170/85
--- NOTE | 2021-01-09 12:28 | Diagnostic Imaging Report ---
INDICATION: Fall. Shoulder pain. COMPARISON: None. FINDINGS: 2 views of the left shoulder were obtained. There is no fracture, dislocation, or other acute bony abnormality identified. The soft tissues appear unremarkable. No radiopaque foreign bodies identified. The visualized portions of the left lung are clear. IMPRESSION: No acute fractures or dislocations of the left shoulder. Dictated by: Dictated on workstation # [id number]
--- NOTE | 2021-01-09 18:16 | Discharge Summary ---
AUDELIA NICHOLS MD 01/09/21 1804: Discharge Summary Hospital Course Problems Reviewed?: Yes Hospital Course Date of Admission: Dec 31, 2020 at 17:17 Admission Diagnosis : Family Physician/Provider: Socrates Hurtado MD Date of Discharge: 01/09/21 Discharge Diagnosis: Flash Pulmonary Edema Hospital Course: 60 year old male with HTN, COPD, depression, multiple severe allergies and a recent hospitalization for respiratory failure during which he had PCI to LCx 12/29, presented 12/31 after calling EMS for respiratory distress and subsequently found at home unresponsive. LMA was placed in the field. On arrival to the ED, blood pressure elevated at 148/100 and sats in 80s despite LMA. CXR showed pulmonary edema. He was intubated in the ED and admitted to the ICU. Lab workup for his acute hypoxic respiratory failure from flash pulmonary edema revealed normal BNP & troponins. Cardiology was consulted and did not feel that respiratory failure was cardiac in origin. Consideration was given to non- cardiac etiologies of his pulmonary edema such as pheochromocytoma given repeated episodes of HTN and respiratory failure, but plasma metanephrines were negative. His pulmonary edema was thought either secondary to hypertension or anaphylaxis to unknown exposure given significant allergic history. He was extubated to 3 L NC the day following admission and continued to improve with blood pressure controlled on his outpatient regimen of amlodipine 10 and losartan 100 mg. He was discharged to [facility] for rehab and was provided epipen at discharge. Referral to allergy and immunology could be helpful in elucidating if anaphylaxis could be etiology of respiratory failure. Labs and Pending Lab Test: Laboratory Tests 01/08/21 20:56: Glucometer 187H 01/09/21 05:06: Glucometer 166H 01/09/21 06:05: White Blood Count 7.9, Red Blood Count 3.58L, Hemoglobin 10.3L, Hematocrit 33L, Mean Corpuscular Volume 93, Mean Corpuscular Hemoglobin 29, Mean Corpuscular Hemoglobin Concent 31L, Red Cell Distribution Width 13.2, Platelet Count 449H, Mean Platelet Volume 9.8, Immature Granulocyte % (Auto) 1, Neutrophils (%) (Au to) 67, Lymphocytes (%) (Auto) 15, Monocytes (%) (Auto) 10, Eosinophils (%) (Auto) 7, Basophils (%) (Auto) 0, Neutrophils # (Auto) 5.3, Lymphocytes # (Auto) 1.2, Monocytes # (Auto) 0.8, Eosinophils # (Auto) 0.6H, Basophils # (Auto) 0.0, Immature Granulocyte # (Auto) 0.1, Sodium Level 140, Potassium Level 3.9, Chloride Level 101, Carbon Dioxide Level 27, Anion Gap 12, Blood Urea Nitrogen 11, Creatinine 1.05, Estimat Glomerular Filtration Rate 72, BUN/Creatinine Ratio 10, Glucose Level 169H, Calcium Level 9.2, Corrected Calcium 10.1, Total Bilirubin 0.5, Aspartate Amino Transf (AST/SGOT) 19, Alanine Aminotransferase (ALT/SGPT) 18, Alkaline Phosphatase 71, Total Protein 6.4, Albumin 2.9L 01/09/21 10:32: SARS-CoV-2 RNA (RT-PCR) Not Detected 01/09/21 12:04: Glucometer 157H Microbiology 01/01/21 Blood Culture - Final, Complete No growth 12/31/20 Gram Stain - Final, Complete 12/31/20 Sputum Culture - Final, Complete Usual upper respiratory linnette Home Meds Active Epipen 2-Kobe (Epinephrine) 0.3 Mg/0.3 Ml Auto.injct 0.3 Mg IJ PRN PRN Pantoprazole Sodium 40 Mg Tablet.dr 40 Mg PO DAILY Diclofenac Sodium 100 Gm Gel..gram. 2 Gm TOP QID PRN MDD 32 grams Reported Xarelto Tablet (Rivaroxaban) 15 Mg Tablet 15 Mg PO DAILY@1700 Nitroglycerin 0.4 Mg Tab.subl 0.4 Mg SL UD PRN Metoprolol Succinate 100 Mg Tab.er.24h 100 Mg PO DAILY Isosorbide Mononitrate ER (Isosorbide Mononitrate) 30 Mg Tab.er.24h 30 Mg PO DAILY Plavix (Clopidogrel Bisulfate) 75 Mg Tablet 75 Mg PO DAILY Tobradex Eye Ointment (Tobramycin/Dexamethasone) 3.5 Gm Oint 1 Applic OP TID 7 Days FILLED 12-21-2020 #1/7 DAY SUPPLY Cyclobenzaprine HCl 5 Mg Tablet 5 Mg PO TID PRN Mupirocin 22 Gm Oint...g. 1 Applic TP BID 7 Days FILLED 12-21-2020 #1/7 DAY SUPPLY Novolog Flexpen (Insulin Aspart) 300 Units/3 Ml Solution 5 Units SQ TID Furosemide 40 Mg Tablet 40 Mg PO DAILY Duloxetine HCl 60 Mg Capsule.dr 60 Mg PO 0900,1700 Potassium Chloride 10 Meq Tab.er.prt 10 Meq PO DAILY Losartan Potassium 100 Mg Tablet 100 Mg PO DAILY Levemir Flextouch (Insulin Detemir) 100 Unit/1 Ml Insuln.pen 15 Unit SQ HS Lipitor (Atorvastatin Calcium) 40 Mg Tablet 40 Mg PO HS Amlodipine Besylate 10 Mg Tablet 10 Mg PO DAILY Janumet 50-1,000 mg Tablet (Sitagliptin Phos/Metformin HCl) 1 Each Tablet 1 Each PO 0900,1700 Assessment/Pt DC Instructions Flash Pulmonary Edema Acute Hypoxic Respiratory Failure Hypertension Allergic Reaction CAD s/p PCI SONIA T2DM Discharge Diet: No Restrictions Activity as Tolerated: Yes Consulations Consultations Cardiology Pulmonology Discharge Physical Examination Allergies: Coded Allergies: aspirin (Verified Allergy, Severe, 12/10/17) egg (Verified Allergy, Intermediate, Vomiting, 03/21/20) Penicillins (Unverified Allergy, Unknown, 07/19/13) Sulfa (Sulfonamide Antibiotics) (Unverified Allergy, Unknown, 07/19/13) lidocaine (Verified Allergy, Unknown, 01/06/16) peanut (Unverified Allergy, Unknown, air closes off, 07/19/13) strawberry (Unverified Allergy, Unknown, airway closes off, 07/19/13) codeine (Unverified Adverse Reaction, Mild, NAUSEA, 02/03/14) Uncoded Allergies: ENVIRONMENTAL (Allergy, Unknown, 07/19/13) raw egg whites (Adverse Reaction, Unknown, upset stomach, 12/09/17) General Appearance: No Apparent Distress HEENT: Pharynx Normal, Moist Mucous Membranes Respiratory: Chest Non Tender, Lungs Clear, Normal Breath Sounds, No Respiratory Distress Cardiovascular: Regular Rate, Rhythm, No Edema, No Murmur Gastrointestinal: Normal Bowel Sounds, Non Tender, Soft Extremity: Normal Capillary Refill Skin: Normal Color, Warm/Dry Neurologic/Psychiatric: Alert, Oriented x3 REZA ADAMS MD 01/10/21 1534: Discharge Summary Discharge Physical Examination Allergies: Coded Allergies: aspirin (Verified Allergy, Severe, 12/10/17) egg (Verified Allergy, Intermediate, Vomiting, 03/21/20) Penicillins (Unverified Allergy, Unknown, 07/19/13) Sulfa (Sulfonamide Antibiotics) (Unverified Allergy, Unknown, 07/19/13) lidocaine (Verified Allergy, Unknown, 01/06/16) peanut (Unverified Allergy, Unknown, air closes off, 07/19/13) strawberry (Unverified Allergy, Unknown, airway closes off, 07/19/13) codeine (Unverified Adverse Reaction, Mild, NAUSEA, 02/03/14) Uncoded Allergies: ENVIRONMENTAL (Allergy, Unknown, 07/19/13) raw egg whites (Adverse Reaction, Unknown, upset stomach, 12/09/17) Supervisory-Addendum Brief Supervisory Addendum I personally have seen and evaluated the patient and I agree with the documented assessment and plan by PGY3 Ronald Nichols MD. AUDELIA NICHOLS MD Jan 09, 2021 18:04 REZA ADAMS MD Jan 10, 2021 15:34
== END 2021-01-09 13:33 | DRG 915 ==
LOC: EDUNIT# 15:46 → ER 15:47 → ICU 17:17 → 4TH 01-04 10:10
PROVIDERS: ADMIT Internal Medicine; ATTEND Family Medicine
PROC: 5A1945Z Respiratory Ventilation, 24-96 Consecutive Hours (ICD-10-PCS; principal; 2020-12-31)
PROC: 0BH17EZ Insertion of Endotracheal Airway into Trachea, Via Natural or Artificial Opening (ICD-10-PCS; 2020-12-31)
DX: T78.2XXA Anaphylactic shock, unspecified, initial encounter (principal); J96.01 Acute respiratory failure with hypoxia; J81.0 Acute pulmonary edema; I21.A1 Myocardial infarction type 2; I50.33 Acute on chronic diastolic (congestive) heart failure; N17.9 Acute kidney failure, unspecified; G93.40 Encephalopathy, unspecified; J44.9 Chronic obstructive pulmonary disease, unspecified; D35.00 Benign neoplasm of unspecified adrenal gland; I25.10 Atherosclerotic heart disease of native coronary artery without angina pectoris; Z95.5 Presence of coronary angioplasty implant and graft; G47.33 Obstructive sleep apnea (adult) (pediatric); I11.0 Hypertensive heart disease with heart failure; Z88.6 Allergy status to analgesic agent; I65.23 Occlusion and stenosis of bilateral carotid arteries; E66.9 Obesity, unspecified; Z68.36 Body mass index [BMI] 36.0-36.9, adult; Z82.49 Family history of ischemic heart disease and other diseases of the circulatory system; Z20.822 Contact with and (suspected) exposure to COVID-19; E78.00 Pure hypercholesterolemia, unspecified; E11.40 Type 2 diabetes mellitus with diabetic neuropathy, unspecified; K21.9 Gastro-esophageal reflux disease without esophagitis; M19.90 Unspecified osteoarthritis, unspecified site; Z79.4 Long term (current) use of insulin; F41.9 Anxiety disorder, unspecified; R91.1 Solitary pulmonary nodule; E11.65 Type 2 diabetes mellitus with hyperglycemia; I49.3 Ventricular premature depolarization; E11.622 Type 2 diabetes mellitus with other skin ulcer; L98.499 Non-pressure chronic ulcer of skin of other sites with unspecified severity
CPT/HCPCS: 31500; 36415; 36600; 51702; 70450; 71045; 71046; 73030; 80048; 80053; 80061; 80306; 80320; 80346; 81000; 82805; 82947; 83605; 83735; 83835; 83880; 84100; 84478; 84484; 85007; 85025; 85027; 85610; 85730; 86618; 86666; 86668; 86703; 86757; 87040; 87070; 87081; 87205; 87636; 93005; 94002; 94003; 94640; 94760; 94799; 96374; 96375; 99291

== ENCOUNTER 2021-01-13 07:08 | Emergency (ER) | payer MEDICARE ==
[~2021-01-13 07:08] MED LIST changes: +EPIN0.3P3 IJ; +NITR0.4T39 SL; +PANT40TA52 PO
[2021-01-13] MEDS ORDERED: NITROGLYCERIN 0.4 MG SL TABS BTL 25'S SL PRN (07:30)
[2021-01-13 07:32] LABS: BASOPHILS # (AUTO) 0.1 10^3/uL (0.0-0.1); BASOPHILS % (AUTO) 1 % (0-10); EOSINOPHILS # (AUTO) 0.4 10^3/uL (0.0-0.3); EOSINOPHILS % (AUTO) 3 % (0-10); HEMATOCRIT 35 % (40-54); HEMOGLOBIN 11.5 g/dL (13.3-17.7); LYMPHOCYTES # (AUTO) 1.5 10^3/uL (1.0-4.0); LYMPHOCYTES % (AUTO) 14 % (12-44); MEAN CORPUSCULAR HEMOGLOBIN 29 pg (25-34); MEAN CORPUSCULAR HGB CONC 33 g/dL (32-36); MEAN CORPUSCULAR VOLUME 88 fL (80-99); MEAN PLATELET VOLUME 9.1 fL (9.0-12.2); MONOCYTES # (AUTO) 0.7 10^3/uL (0.0-1.0); MONOCYTES % (AUTO) 7 % (0-12); NEUTROPHILS # (AUTO) 8.1 10^3/uL (1.8-7.8); NEUTROPHILS % (AUTO) 75 % (42-75); PLATELET COUNT 524 10^3/uL (130-400); WHITE BLOOD COUNT 10.7 10^3/uL (4.3-11.0)
[2021-01-13] MEDS ORDERED: ONDANSETRON 4 MG/2 ML (SDV) Z0FRAN IVP ONE (07:45)
[2021-01-13 07:46] LABS: ALBUMIN 3.3 GM/DL (3.2-4.5); POTASSIUM 3.3 MMOL/L (3.6-5.0)
[2021-01-13 07:47] LABS: INR 1.1 (0.8-1.4); PROTHROMBIN TIME PATIENT 14.7 SEC (12.2-14.7)
[2021-01-13 07:50] LABS: BILIRUBIN,TOTAL 0.8 MG/DL (0.1-1.0)
[2021-01-13 07:52] LABS: CREATININE SERUM 1.27 MG/DL (0.60-1.30)
[2021-01-13 07:55] LABS: MAGNESIUM 1.2 MG/DL (1.6-2.4)
--- NOTE | 2021-01-13 08:20 | Diagnostic Imaging Report ---
EXAMINATION: Chest 1 view HISTORY: Chest pain COMPARISON: 01/01/2021 FINDINGS: Enlargement of the cardiac silhouette. There are low lung volumes with mild basilar interstitial opacities. Interstitial opacities in the midlungs have decreased from 01/01/2021. No pneumothorax. The osseous structures are intact. IMPRESSION: 1. Low lung volumes with mild bibasilar atelectasis or consolidation. Dictated by: Dictated on workstation # [id number]
[2021-01-13] MEDS ORDERED: LORazepam INJ 2 MG/ML (ATIVAN) VIAL IVP ONE (08:30)
[2021-01-13] MEDS ORDERED: KCL 10 MEQ TAB (MICRO K) PO ONE (08:45)
[2021-01-13] MEDS ORDERED: NS IV 500 ML 500 ML IV ONE (08:45)
[2021-01-13] MEDS ORDERED: MAGNESIUM 1 GM/100 ML IVPB 100 ML IV ONE ×2 (08:45)
[2021-01-13] MEDS ORDERED: HYDROcodone/APAP 5 MG/325 MG (LORTAB) TAB PO ONE (09:00)
--- NOTE | 2021-01-13 10:07 | ED General ---
General Chief Complaint: Chest Pain Stated Complaint: CP Nursing Triage Note: Pt arrives via EMS from [facility] for c/o chest pain; onset this AM. Per pt he had N/V/D on Saturday. Pt also reports he had a cardiac arrest episode after falling from bed but is unsure what date this was, states he was intubated as well. Pt has healing bruises to his chest et abdomen noted. Source of Information: Patient Exam Limitations: No Limitations History of Present Illness Date Seen by Provider: Jan 13, 2021 Time Seen by Provider: 07:10 Initial Comments This 60-year-old gentleman presents to the emergency room with complaints of nausea, vomiting, and diarrhea for a few days, worsening this morning, and chest heaviness. He presents via EMS from [place] [facility]. He was admitted twice previously this month for pulmonary edema and MO. He had a cardiopulmonary arrest in his home and required CPR prior to the initial visit. He had cardiac cath performed on December 29 with stenting. He received Arctic sun and was intubated for several days in the ICU. Vital signs are stable on arrival. Patient appears anxious. Patient complains of left shoulder pain. Shoulder was x-rayed on January 09 and x-rays revealed no fractures or dislocations. Allergies and Home Medications Allergies Coded Allergies: aspirin (Verified Allergy, Severe, 12/10/17) egg (Verified Allergy, Intermediate, Vomiting, 03/21/20) Penicillins (Unverified Allergy, Unknown, 07/19/13) Sulfa (Sulfonamide Antibiotics) (Unverified Allergy, Unknown, 07/19/13) lidocaine (Verified Allergy, Unknown, 01/06/16) peanut (Unverified Allergy, Unknown, air closes off, 07/19/13) strawberry (Unverified Allergy, Unknown, airway closes off, 07/19/13) codeine (Unverified Adverse Reaction, Mild, NAUSEA, 02/03/14) Uncoded Allergies: ENVIRONMENTAL (Allergy, Unknown, 07/19/13) raw egg whites (Adverse Reaction, Unknown, upset stomach, 12/09/17) Patient Home Medication List Home Medication List Reviewed: Yes Amlodipine Besylate (Amlodipine Besylate) 10 Mg Tablet, 10 MG PO DAILY, (Reported) Entered as Reported by: DEDRICK CARPENTER on 02/04/19 0837 Atorvastatin Calcium (Lipitor) 40 Mg Tablet, 40 MG PO HS, (Reported) Entered as Reported by: DEDRICK CARPENTER on 02/04/19 0837 Clopidogrel Bisulfate (Plavix) 75 Mg Tablet, 75 MG PO DAILY, (Reported) Entered as Reported by: DEDRICK CARPENTER on 01/03/21 1057 Cyclobenzaprine HCl (Cyclobenzaprine HCl) 5 Mg Tablet, 5 MG PO TID PRN for MUSCLE CRAMPS, (Reported) Entered as Reported by: DEDRICK CARPENTER on 12/23/20 1515 Diclofenac Sodium (Diclofenac Sodium) 100 Gm Gel..gram., 2 GM TOP QID PRN for PAIN-MODERATE (5-7) Prescribed by: REZA ADAMS on 01/09/21 1141 Duloxetine HCl (Duloxetine HCl) 60 Mg Capsule.dr, 60 MG PO 0900,1700, (Reported) Entered as Reported by: BILL CARIAS on 03/21/20 1545 Epinephrine (Epipen 2-Kobe) 0.3 Mg/0.3 Ml Auto.injct, 0.3 MG IJ PRN PRN for allergic reaction Prescribed by: REZA ADAMS on 01/09/21 1141 Furosemide (Furosemide) 40 Mg Tablet, 40 MG PO DAILY, (Reported) Entered as Reported by: DEDRICK CARPENTER on 05/24/20 1028 Insulin Aspart (Novolog Flexpen) 300 Units/3 Ml Solution, 5 UNITS SQ TID, (Reported) Entered as Reported by: DEDRICK CARPENTER on 12/23/20 1515 Insulin Detemir (Levemir Flextouch) 100 Unit/1 Ml Insuln.pen, 15 UNIT SQ HS, (Reported) Entered as Reported by: DEDRICK CARPENTER on 02/04/19 0910 Isosorbide Mononitrate (Isosorbide Mononitrate ER) 30 Mg Tab.er.24h, 30 MG PO DAILY, (Reported) Entered as Reported by: DEDRICK CARPENTER on 01/03/21 1057 Losartan Potassium (Losartan Potassium) 100 Mg Tablet, 100 MG PO DAILY, ( Reported) Entered as Reported by: DEDRICK CARPENTER on 11/11/19 1648 Metoprolol Succinate (Metoprolol Succinate) 100 Mg Tab.er.24h, 100 MG PO DAILY, (Reported) Entered as Reported by: DEDRICK CARPENTER on 01/03/21 1057 Mupirocin (Mupirocin) 22 Gm Oint...g., 1 APPLIC TP BID, (Reported) Entered as Reported by: DEDRICK CARPENTER on 12/23/20 1515 Nitroglycerin (Nitroglycerin) 0.4 Mg Tab.subl, 0.4 MG SL UD PRN for CHEST PAIN, (Reported) Entered as Reported by: DEDRICK CARPENTER on 01/03/21 1057 Pantoprazole Sodium (Pantoprazole Sodium) 40 Mg Tablet.dr, 40 MG PO DAILY Prescribed by: REZA ADAMS on 01/09/21 1141 Potassium Chloride (Potassium Chloride) 10 Meq Tab.er.prt, 10 MEQ PO DAILY, (Reported) Entered as Reported by: BILL CARIAS on 03/21/20 1545 Rivaroxaban (Xarelto Tablet) 15 Mg Tablet, 15 MG PO DAILY@1700, (Reported) Entered as Reported by: DEDRICK CARPENTER on 01/03/21 1057 Sitagliptin Phos/Metformin HCl (Janumet 50-1,000 mg Tablet) 1 Each Tablet, 1 EACH PO 0900,1700, (Reported) Entered as Reported by: DEDRICK CARPENTER on 02/04/19 0822 Tobramycin/Dexamethasone (Tobradex Eye Ointment) 3.5 Gm Oint, 1 APPLIC OP TID, (Reported) Entered as Reported by: DEDRICK CARPENTER on 12/23/20 1515 Discontinued Medications Glimepiride (Amaryl) 1 Mg Tab, 1 MG PO DAILY, (Reported) Entered as Reported by: DEDRICK CARPENTER on 02/04/19 0837 Prednisone (Prednisone) 20 Mg Tab, 20 TAB PO DAILY Prescribed by: JOCELYN THOMPSON on 12/30/20 1152 Review of Systems Review of Systems Constitutional: no symptoms reported EENTM: no symptoms reported Respiratory: see HPI Cardiovascular: see HPI Gastrointestinal: see HPI Genitourinary: no symptoms reported Musculoskeletal: see HPI Skin: other (Bruising across the chest and lower abdomen) Psychiatric/Neurological: Anxiety Hematologic/Lymphatic: No Symptoms Reported Immunological/Allergic: no symptoms reported Past Ldfiawd-Fnlqzn-Ogrntn Hx Patient Social History Tobacco Use?: No Use of E-Cig and/or Vaping dev: No Substance use?: No Alcohol Use?: No Pt feels they are or have been: No Immunizations Up To Date Tetanus Booster (TDap): Unknown First/Initial COVID19 Vaccinat: 05/18/20 Second COVID19 Vaccination Jose: 05/18/20 Third COVID19 Vaccination Date: 05/18/20 Seasonal Allergies Seasonal Allergies: Yes Past Medical History Surgery/Hospitalization HX: 12/29 HEART CATH WITH STENTS. PREVIOUS STENTS PLACED Surgeries: Yes (CARPAL TUNNEL RELASE SX, LEFT HAND SURGERY, L FOOT, EGD/COLONOSCOPY) Cardiac, Coronary Stent, Gallbladder, Orthopedic, Tonsillectomy Respiratory: Yes (RLL PUL. NODULE--FOLLOWED EVERY 6 MONTHS;INTUBATED 2017/PULM EDEMA/ARF ) Asthma, Sleep Apnea Currently Using CPAP: Yes Currently Using BIPAP: Yes Cardiac: Yes (CAD--STENTS X 2; MR/TR, history of cardiopulmonary arrest) Coronary Artery Disease, High Cholesterol, Hypertension, Irregular Heartbeat, Valvular Heart Disease Neurological: Yes Neuropathy Reproductive Disorders: No Sexually Transmitted Disease: No Genitourinary: No Gastrointestinal: Yes Gastroesophageal Reflux, Polyps, Hiatal Hernia, Ulcer Musculoskeletal: Yes (BILAT CARPAL TUNNEL SURG;L HAND SURG; L FOOT SURG) Arthritis Endocrine: No Diabetes, Insulin dep HEENT: No Loss of Vision: Denies Hearing Impairment: Denies Cancer: No Psychosocial: Yes Anxiety Integumentary: Yes Psoriasis Blood Disorders: No Adverse Reaction/Blood Tranf: No Family Medical History Congestive heart failure 19 MOTHER Family history: Arthritis 19 FATHER 19 MOTHER Family history: Cardiovascular disease 19 FATHER 19 MOTHER Family history: Diabetes mellitus 19 FATHER Family history: Glaucoma 19 MOTHER Family history: Hypertension 19 FATHER 19 MOTHER Family history: Osteoporosis 19 MOTHER Hearing loss 19 MOTHER Heart disease 19 FATHER 19 MOTHER Myocardial infarction 19 FATHER 19 MOTHER (DBL BYPASS) Stroke 19 MOTHER (MICRO STROKES) No Family History of: Abdominal aortic aneurysm Payette's disease Alcoholism Aphasia Cancer Cancer of colon Cataract Chest pain Congenital heart disease Cystic fibrosis Dementia Dysphagia Family history: Allergy Family history: Alzheimer's disease Family history: Asthma Family history: Breast disease Family history: Coronary thrombosis Family history: Gastrointestinal disease Family history: Thyroid disorder Headache Hereditary disease History of - anemia History of - disorder History of - respiratory disease History of drug abuse Human immunodeficiency virus (HIV) seropositivity Hypercholesterolemia Infertile Kidney disease Malignant neoplasm of lung Parkinson's disease Prostate cancer Psychotic disorder Seizure disorder Tuberculosis Visual impairment Heart Disease, Diabetes, Hypertension PAST SURGICAL HISTORY: -CARDIAC CATHS--STENTS X 2 IN 2018. LAST CATH 02/04/19--NO INTERVENTION. HAD PATENT STENT TO LEFT CIRCUMFLEX, WITH COMPLETE OCCLUSION OF LEFT PDA; PATENT STENT TO RCA; MILD DISEASE IN OTHER VESSELS -APPENDECTOMY -EGD'S AND COLONOSCOPIES WITH POLYPECTOMY -BILATERAL CARPAL TUNNEL SURGERY -LEFT HAND SURGERY -LEFT FOOT SURGERY Physical Exam Vital Signs Vital Signs - First Documented Capillary Refill : Less Than 3 Seconds Height, Weight, BMI Height: 5'9.00" Weight: 247lbs. 7.0oz. 112.536909tk; 38.00 BMI Method:Stated General Appearance: WD/WN, Moderate Distress HEENT: PERRL/EOMI, Normal ENT Inspection, Other (Mucous membranes pasty) Neck: Normal Inspection; No JVD Respiratory: Chest Non Tender, Lungs Clear, Normal Breath Sounds, No Accessory Muscle Use, No Respiratory Distress Cardiovascular: Regular Rate, Rhythm, No Edema, No Murmur, Normal Peripheral Pulses Gastrointestinal: Normal Bowel Sounds, Non Tender, Soft Extremity: Normal Inspection, No Pedal Edema, Other (Appearance of blood blisters on the left toes) Neurologic/Psychiatric: Alert, Oriented x3, No Motor/Sensory Deficits, Normal Mood/Affect, house admin II-XII Norm as Tested Skin: Normal Color, Warm/Dry Focused Exam Lactate Level 01/13/21 07:25: Lactic Acid Level 1.34 Lactic Acid Level Laboratory Tests Test 01/13/21 07:25 Lactic Acid Level 1.34 MMOL/L (0.50-2.00) Procedures/Interventions Date of ETT Placement: Dec 31, 2020 Time of ETT Placement: 1600 Progress/Results/Core Measures Suspected Sepsis SIRS Temperature: Pulse: 86 Respiratory Rate: 20 Laboratory Tests 01/13/21 07:25: White Blood Count 10.7 Blood Pressure 122 /81 Mean: 95 01/13/21 07:25: Lactic Acid Level 1.34 Laboratory Tests 01/13/21 07:25: Creatinine 1.27, INR Comment 1.1, Platelet Count 524H, Total Bilirubin 0.8 Results/Orders Lab Results Laboratory Tests Test 01/13/21 07:25 01/13/21 07:31 01/13/21 11:49 Range/Units White Blood Count 10.7 4.3-11.0 10^3/uL Red Blood Count 3.98 L 4.30-5.52 10^6/uL Hemoglobin 11.5 L 13.3-17.7 g/dL Hematocrit 35 L 40-54 % Mean Corpuscular Volume 88 80-99 fL Mean Corpuscular Hemoglobin 29 25-34 pg Mean Corpuscular Hemoglobin Concent 33 32-36 g/dL Red Cell Distribution Width 13.3 10.0-14.5 % Platelet Count 524 H 130-400 10^3/uL Mean Platelet Volume 9.1 9.0-12.2 fL Immature Granulocyte % (Auto) 1 % Neutrophils (%) (Auto) 75 42-75 % Lymphocytes (%) (Auto) 14 12-44 % Monocytes (%) (Auto) 7 0-12 % Eosinophils (%) (Auto) 3 0-10 % Basophils (%) (Auto) 1 0-10 % Neutrophils # (Auto) 8.1 H 1.8-7.8 10^3/uL Lymphocytes # (Auto) 1.5 1.0-4.0 10^3/uL Monocytes # (Auto) 0.7 0.0-1.0 10^3/uL Eosinophils # (Auto) 0.4 H 0.0-0.3 10^3/uL Basophils # (Auto) 0.1 0.0-0.1 10^3/uL Immature Granulocyte # (Auto) 0.1 0.0-0.1 10^3/uL Prothrombin Time 14.7 12.2-14.7 SEC INR Comment 1.1 0.8-1.4 Activated Partial Thromboplast Time 41 H 24-35 SEC Sodium Level 139 135-145 MMOL/L Potassium Level 3.3 L 3.6-5.0 MMOL/L Chloride Level 98 98-107 MMOL/L Carbon Dioxide Level 27 21-32 MMOL/L Anion Gap 14 5-14 MMOL/L Blood Urea Nitrogen 13 7-18 MG/DL Creatinine 1.27 0.60-1.30 MG/DL Estimat Glomerular Filtration Rate 58 BUN/Creatinine Ratio 10 Glucose Level 117 H 70-105 MG/DL Lactic Acid Level 1.34 0.50-2.00 MMOL/L Calcium Level 9.0 8.5-10.1 MG/DL Corrected Calcium 9.6 8.5-10.1 MG/DL Magnesium Level 1.2 L 1.6-2.4 MG/DL Total Bilirubin 0.8 0.1-1.0 MG/DL Aspartate Amino Transf (AST/SGOT) 20 5-34 U/L Alanine Aminotransferase (ALT/SGPT) 15 0-55 U/L Alkaline Phosphatase 118 40-136 U/L Myoglobin 45.5 10.0-92.0 NG/ML Troponin I < 0.028 < 0.028 <0.028 NG/ML C-Reactive Protein High Sensitivity 0.89 H 0.00-0.50 MG/DL B-Type Natriuretic Peptide 49.8 <100.0 PG/ML Total Protein 7.0 6.4-8.2 GM/DL Albumin 3.3 3.2-4.5 GM/DL Procalcitonin 0.07 <0.10 NG/ML Influenza Type A (RT-PCR) Not Detected Not Detecte Influenza Type B (RT-PCR) Not Detected Not Detecte SARS-CoV-2 RNA (RT-PCR) Not Detected Not Detecte Glucometer 112 H 70-110 MG/DL My Orders Orders - LEE CARDENAS MD Cbc With Automated Diff (01/13/21 07:22) Magnesium (01/13/21 07:22) Chest 1 View, Ap/Pa Only (01/13/21 07:22) Ekg Tracing (01/13/21 07:22) Comprehensive Metabolic Panel (01/13/21 07:22) Myoglobin Serum (01/13/21 07:22) Protime With Inr (01/13/21 07:22) Partial Thromboplastin Time (01/13/21 07:22) O2 (01/13/21 07:22) Monitor-Rhythm Ecg Trace Only (01/13/21 07:22) Lipid Panel (01/14/21 06:00) Ed Iv/Invasive Line Start (01/13/21 07:22) Troponin I (01/13/21 07:22) Nitroglycerin 0.4 Mg Btl 25's (Nitrostat (01/13/21 07:30) Procalcitonin (Pct) (01/13/21 07:23) Hs C Reactive Protein (01/13/21 07:23) Influenza A And B By Pcr (01/13/21 07:23) Covid 19 Inhouse Test (01/13/21 07:23) Blood Culture (01/13/21 07:26) Sputum Culture (01/13/21 07:26) Urinalysis (01/13/21 07:26) Urine Culture (01/13/21 07:26) Vital Signs Adult Sepsis Patie Q15M (01/13/21 07:26) Remove Rings In Anticipation O (01/13/21 07:26) Lactic Acid Analyzer (01/13/21 07:26) BNP (01/13/21 07:38) Ondansetron Injection (Zofran Injectio (01/13/21 07:45) Lorazepam Injection (Ativan Injection) (01/13/21 08:30) Magnesium 1 Gm/100 Ml Ivpb (Magnesium Calix (01/13/21 08:45) Troponin I (01/13/21 11:40) Magnesium 1 Gm/100 Ml Ivpb (Magnesium Calix (01/13/21 08:45) Ns Iv 500 Ml (Sodium Chloride 0.9%) (01/13/21 08:45) Potassium Chloride (Tablet) (Klor Con Ta (01/13/21 08:45) Hydrocodone/Apap 5/325 Tablet (Lortab 5 (01/13/21 09:00) Medications Given in ED Current Medications Medications Dose Ordered Sig/Brissa Route Start Time Stop Time Status Last Admin Dose Admin Acetaminophen/ Hydrocodone Bitart 1 ea ONCE ONCE PO 01/13/21 09:00 01/13/21 09:01 DC 01/13/21 09:06 1 EA Lorazepam 0.5 mg ONCE ONCE IVP 01/13/21 08:30 01/13/21 08:31 DC 01/13/21 08:27 0.5 MG Magnesium Sulfate/ Dextrose 100 ml @ 100 mls/hr ONCE ONCE IV 01/13/21 08:45 01/13/21 09:44 DC 01/13/21 09:07 100 MLS/HR Magnesium Sulfate/ Dextrose 100 ml @ 100 mls/hr ONCE ONCE IV 01/13/21 08:45 01/13/21 09:44 DC 01/13/21 10:23 100 MLS/HR Nitroglycerin 0.4 mg UD PRN SL 01/13/21 07:30 01/13/21 07:30 0.4 MG Ondansetron HCl 4 mg ONCE ONCE IVP 01/13/21 07:45 01/13/21 07:46 DC 01/13/21 07:53 4 MG Potassium Chloride 20 meq ONCE ONCE PO 01/13/21 08:45 01/13/21 08:48 DC 01/13/21 09:06 20 MEQ Sodium Chloride 500 ml @ 0 mls/hr Q0M ONCE IV 01/13/21 08:45 01/13/21 08:48 DC 01/13/21 09:07 100 MLS/HR Vital Signs/I&O 01/13/21 01/13/21 07:15 07:15 Temp 36.9 Pulse 86 Resp 20 B/P (MAP) 122/81 (95) Pulse Ox 98 98 O2 Delivery Room Air Room Air Capillary Refill : Less Than 3 Seconds Blood Pressure Mean: 95 Progress Note #1: Time: 10:10 Progress Note Initial work-up demonstrates some electrolyte abnormalities. Magnesium and potassium are being replaced. Cardiac work-up was unremarkable. I discussed the situation with Dr. Ortega. He believes a cardiac rule out in the emergency room is appropriate but admission is not necessary based on current information. Patient has had chest pain since his CPR and was discharged from the hospital with active chest pain. We will obtain a troponin at about the 4-hour lisbeth. Shilpa denson has received hydrocodone for pain and Ativan for anxiety. He was given nitroglycerin but spit it out stating that it burned his tongue. Progress Note #2: Time: 12:46 Progress Note Repeat troponin was negative. Patient is feeling much better. He has had no vomiting or diarrhea since he has arrived. He is ready for dismissal back to the [facility]. ECG Initial ECG Impression Date: Jan 13, 2021 Initial ECG Impression Time: 07:16 Initial ECG Rate: 87 Initial ECG Rhythm: Normal Sinus Comment Sinus rhythm with no diagnostic ST elevation or depression. No abnormal intervals or axis deviation. Diagnostic Imaging Diagonstic Imaging: Xray Plain Films/CT/US/NM/MRI: chest Comments Chest x-ray reviewed by me and report reviewed. See report below: NAME: DAREN BARRIOS [facility] REC#: [id number] PT STATUS: REG ER : 1960 PHYSICIAN: LEE CARDENAS MD ADMIT DATE: 01/13/21/ER Draft Date of Exam:01/13/21 CHEST 1 VIEW, AP/PA ONLY EXAMINATION: Chest 1 view HISTORY: Chest pain COMPARISON: 01/01/2021 FINDINGS: Enlargement of the cardiac silhouette. There are low lung volumes with mild basilar interstitial opacities. Interstitial opacities in the midlungs have decreased from 01/01/2021. No pneumothorax. The osseous structures are intact. IMPRESSION: 1. Low lung volumes with mild bibasilar atelectasis or consolidation. Dictated on workstation # [id number] Dict: 01/13/21817 Trans: 01/13/21819 CV [id number] Interpreted by: RUPA MURRELL DO Departure Impression Primary Impression: Chest pain Qualified Codes: R07.9 - Chest pain, unspecified Additional Impressions: Nausea vomiting and diarrhea Hypomagnesemia Hypokalemia Anxiety Disposition: 01 HOME, SELF-CARE Condition: Improved Departure-Patient Inst. Decision time for Depature: 12:53 Referrals: KATE CORONADO MD (PCP/Family) Primary Care Physician Add. Discharge Instructions: Drink plenty of clear liquids to stay well-hydrated. Eat a well-balanced diet, and gradually advance your diet with small quantities of bland food as tolerated. Call with questions or concerns. Return to the ER if you have worsening symptoms. All discharge instructions reviewed with patient and/or family. Voiced understanding. Copy Copies To 1: CROW ORTEGA MD Copies To 2: KATE CORONADO MD, JOSHUA T MD Jan 13, 2021 10:07
[2021-01-13 12:50] VITALS: BP 122/81
== END 2021-01-13 13:39 | disposition home or self-care (01) ==
LOC: EDUNIT# 07:08 → ER 07:10
DX: R07.9 Chest pain, unspecified (principal); R11.2 Nausea with vomiting, unspecified; R19.7 Diarrhea, unspecified; E83.42 Hypomagnesemia; E87.6 Hypokalemia; F41.9 Anxiety disorder, unspecified; G47.30 Sleep apnea, unspecified; I10 Essential (primary) hypertension; J45.909 Unspecified asthma, uncomplicated; I25.10 Atherosclerotic heart disease of native coronary artery without angina pectoris; E78.00 Pure hypercholesterolemia, unspecified; E11.9 Type 2 diabetes mellitus without complications; K21.9 Gastro-esophageal reflux disease without esophagitis; Z20.822 Contact with and (suspected) exposure to COVID-19; Z79.01 Long term (current) use of anticoagulants; Z79.899 Other long term (current) drug therapy; Z79.4 Long term (current) use of insulin
CPT/HCPCS: 36415; 71045; 80053; 82947; 83605; 83735; 83874; 83880; 84145; 84484; 85025; 85610; 85730; 86141; 87040; 87636; 93005; 93041

== ENCOUNTER 2021-01-22 17:10 | Emergency (ER) | payer MEDICARE ==
[~2021-01-22] VITALS: Ht 175.3 cm; Wt 108.4 kg
--- NOTE | 2021-01-22 17:50 | Diagnostic Imaging Report ---
EXAMINATION: Chest 1 view. HISTORY: Chest pain. Anxiety. Shortness of breath. COMPARISON: 01/13/2021. FINDINGS: The lung volumes are normal. Platelike atelectasis is seen in the lung bases. No large pleural effusion or pneumothorax is seen. The cardiomediastinal silhouette is normal in size and contour. No acute osseous abnormality is seen. IMPRESSION: Platelike atelectasis in the lung bases. No focal consolidation or pleural effusion. Dictated by: Dictated on workstation # [id number]
[2021-01-22 17:59] LABS: ALBUMIN 3.6 GM/DL (3.2-4.5); INR 1.3 (0.8-1.4); POTASSIUM 4.2 MMOL/L (3.6-5.0); PROTHROMBIN TIME PATIENT 16.9 SEC (12.2-14.7)
[2021-01-22 18:00] LABS: CALCIUM 8.4 MG/DL (8.5-10.1)
[2021-01-22 18:01] LABS: TOTAL PROTEIN 7.5 GM/DL (6.4-8.2)
[2021-01-22 18:03] LABS: BILIRUBIN,TOTAL 0.4 MG/DL (0.1-1.0)
[2021-01-22 18:05] LABS: CREATININE SERUM 1.6 MG/DL (0.60-1.30)
[2021-01-22] MEDS ORDERED: LORazepam INJ 2 MG/ML (ATIVAN) VIAL IVP ONE (18:15)
[2021-01-22] MEDS ORDERED: HYDROcodone/APAP 5 MG/325 MG (LORTAB) TAB PO ONE (18:15)
[2021-01-22] MEDS ORDERED: MAGNESIUM 1 GM/100 ML IVPB 100 ML IV ONE ×2 (18:15→19:30)
[2021-01-22] MEDS ORDERED: NS IV 500 ML 500 ML IV ONE (18:30)
--- NOTE | 2021-01-22 19:25 | ED Chest Pain ---
General Chief Complaint: Respiratory Problems Stated Complaint: SOB/ANXIETY Nursing Triage Note: PT TO RM 2 VIA [facility] W REPORTS OF SOA AND CP SX 1530. PT WAS RELEASED TO HOME FROM [facility]IA [facility] AT 1330, REPORTS HOUSE SMELLS LIKE AMMONIA FROM UNATTENDED CAT'S URINE AND IS UNSURE IF THIS IS RELATED. PT A&OX4. Source: patient Exam Limitations: no limitations (LEE CARDENAS MD) History of Present Illness Date Seen by Provider: Jan 22, 2021 Time Seen by Provider: 17:14 Initial Comments This 60-year-old gentleman presents to the emergency room via EMS with complaints of chest pain and shortness of breath that started around 15:30. He states the symptoms started when he dropped his phone on the floor. He knelt down on the floor to pick it up and is overwhelmed by the ammonia smell from cat urine on his floor. He then developed chest pain and shortness of breath. He became very anxious and activated EMS. He was admitted twice in December at this facility for respiratory failure and ID. He had cardiac catheterization with stent placement. He did undergo cardiac arrest in his home prior to these admissions and received CPR. He has had chest pain since then and was discharged from the hospital with active chest pain. He was seen in the ER last week with similar symptoms. Work-up was unremarkable except for electrolyte disturbances which were replaced. His symptoms were treated with hydrocodone and Ativan at that time with good improvement. (LEE CARDENAS MD) Allergies and Home Medications Allergies Coded Allergies: aspirin (Verified Allergy, Severe, 12/10/17) egg (Verified Allergy, Intermediate, Vomiting, 03/21/20) Penicillins (Unverified Allergy, Unknown, 07/19/13) Sulfa (Sulfonamide Antibiotics) (Unverified Allergy, Unknown, 07/19/13) lidocaine (Verified Allergy, Unknown, 01/06/16) peanut (Unverified Allergy, Unknown, air closes off, 07/19/13) strawberry (Unverified Allergy, Unknown, airway closes off, 07/19/13) codeine (Unverified Adverse Reaction, Mild, NAUSEA, 02/03/14) Uncoded Allergies: ENVIRONMENTAL (Allergy, Unknown, 07/19/13) raw egg whites (Adverse Reaction, Unknown, upset stomach, 12/09/17) Patient Home Medication List Home Medication List Reviewed: Yes (LEE CARDENAS MD) Amlodipine Besylate (Amlodipine Besylate) 10 Mg Tablet, 10 MG PO DAILY, (Reported) Entered as Reported by: DEDRICK CARPENTER on 02/04/19 0837 Atorvastatin Calcium (Lipitor) 40 Mg Tablet, 40 MG PO HS, (Reported) Entered as Reported by: DEDRICK CARPENTER on 02/04/19 0837 Clopidogrel Bisulfate (Plavix) 75 Mg Tablet, 75 MG PO DAILY, (Reported) Entered as Reported by: DEDRICK CARPENTER on 01/03/21 1057 Cyclobenzaprine HCl (Cyclobenzaprine HCl) 5 Mg Tablet, 5 MG PO TID PRN for MUSCLE CRAMPS, (Reported) Entered as Reported by: DEDRICK CARPENTER on 12/23/20 1515 Diclofenac Sodium (Diclofenac Sodium) 100 Gm Gel..gram., 2 GM TOP QID PRN for PAIN-MODERATE (5-7) Prescribed by: REZA ADAMS on 01/09/21 1141 Duloxetine HCl (Duloxetine HCl) 60 Mg Capsule.dr, 60 MG PO 0900,1700, (Reported) Entered as Reported by: BILL CARIAS on 03/21/20 1545 Epinephrine (Epipen 2-Kobe) 0.3 Mg/0.3 Ml Auto.injct, 0.3 MG IJ PRN PRN for allergic reaction Prescribed by: REZA ADAMS on 01/09/21 1141 Furosemide (Furosemide) 40 Mg Tablet, 40 MG PO DAILY, (Reported) Entered as Reported by: DEDRICK CARPENTER on 05/24/20 1028 Insulin Aspart (Novolog Flexpen) 300 Units/3 Ml Solution, 5 UNITS SQ TID, (Reported) Entered as Reported by: DEDRICK CARPENTER on 12/23/20 1515 Insulin Detemir (Levemir Flextouch) 100 Unit/1 Ml Insuln.pen, 15 UNIT SQ HS, (Reported) Entered as Reported by: DEDRICK CARPENTER on 02/04/19 0910 Isosorbide Mononitrate (Isosorbide Mononitrate ER) 30 Mg Tab.er.24h, 30 MG PO DAILY, (Reported) Entered as Reported by: DEDRICK CARPENTER on 01/03/21 1057 Losartan Potassium (Losartan Potassium) 100 Mg Tablet, 100 MG PO DAILY, (Reported) Entered as Reported by: DEDRICK CARPENTER on 11/11/19 1648 Metoprolol Succinate (Metoprolol Succinate) 100 Mg Tab.er.24h, 100 MG PO DAILY, (Reported) Entered as Reported by: DEDRICK CARPENTER on 01/03/21 1057 Mupirocin (Mupirocin) 22 Gm Oint...g., 1 APPLIC TP BID, (Reported) Entered as Reported by: DEDRICK CARPENTER on 12/23/20 1515 Nitroglycerin (Nitroglycerin) 0.4 Mg Tab.subl, 0.4 MG SL UD PRN for CHEST PAIN, (Reported) Entered as Reported by: DEDRICK CARPENTER on 01/03/21 1057 Pantoprazole Sodium (Pantoprazole Sodium) 40 Mg Tablet.dr, 40 MG PO DAILY Prescribed by: REZA ADAMS on 01/09/21 1141 Potassium Chloride (Potassium Chloride) 10 Meq Tab.er.prt, 10 MEQ PO DAILY, (Reported) Entered as Reported by: BILL CARIAS on 03/21/20 1545 Rivaroxaban (Xarelto Tablet) 15 Mg Tablet, 15 MG PO DAILY@1700, (Reported) Entered as Reported by: DEDRICK CARPENTER on 01/03/21 1057 Sitagliptin Phos/Metformin HCl (Janumet 50-1,000 mg Tablet) 1 Each Tablet, 1 EACH PO 0900,1700, (Reported) Entered as Reported by: DEDRICK CARPENTER on 02/04/19 0822 Tobramycin/Dexamethasone (Tobradex Eye Ointment) 3.5 Gm Oint, 1 APPLIC OP TID, (Reported) Entered as Reported by: DEDRICK CARPENTER on 12/23/20 1515 Review of Systems Review of Systems Constitutional: no symptoms reported EENTM: No Symptoms Reported Respiratory: No Symptoms Reported Cardiovascular: See HPI Gastrointestinal: See HPI Genitourinary: No Symptoms Reported Musculoskeletal: no symptoms reported Skin: no symptoms reported Psychiatric/Neurological: See HPI Endocrine: No Symptoms Reported Hematologic/Lymphatic: No Symptoms Reported (LEE CARDENAS MD) Past Fhbrmfc-Xznasl-Xqjoxk Hx Patient Social History Tobacco Use?: No Use of E-Cig and/or Vaping dev: No Substance use?: No Alcohol Use?: No (LEE CARDENAS MD) Immunizations Up To Date Tetanus Booster (TDap): Unknown Influenza Vaccine Up-to-Date: No; Not Current First/Initial COVID19 Vaccinat: 2020 Second COVID19 Vaccination Jose: 2020 Third COVID19 Vaccination Date: 05/18/20 COVID19 Vaccine Milk Treater: SAMMY (LEE CARDENAS MD) Seasonal Allergies Seasonal Allergies: Yes (LEE CARDENAS MD) Past Medical History Surgery/Hospitalization HX: 12/29 HEART CATH WITH STENTS. PREVIOUS STENTS PLACED SUDDEN CARDIAC ARREST 12/2020 Surgeries: Yes (CARPAL TUNNEL RELASE SX, LEFT HAND SURGERY, L FOOT, EGD/COLON OSCOPY) Cardiac, Coronary Stent, Gallbladder, Orthopedic, Tonsillectomy Respiratory: Yes (RLL PUL. NODULE--FOLLOWED EVERY 6 MONTHS;INTUBATED 2017/PULM EDEMA/ARF ) Asthma, Sleep Apnea Currently Using CPAP: Yes Currently Using BIPAP: Yes Cardiac: Yes (CAD--STENTS X 2; MR/TR, history of cardiopulmonary arrest) Coronary Artery Disease, High Cholesterol, Hypertension, Irregular Heartbeat, Valvular Heart Disease Neurological: Yes Neuropathy Reproductive Disorders: No Sexually Transmitted Disease: No Genitourinary: No Gastrointestinal: Yes Gastroesophageal Reflux, Polyps, Hiatal Hernia, Ulcer Musculoskeletal: Yes (BILAT CARPAL TUNNEL SURG;L HAND SURG; L FOOT SURG) Arthritis Endocrine: Yes Diabetes, Insulin dep HEENT: No Loss of Vision: Denies Hearing Impairment: Denies Cancer: No Psychosocial: Yes Anxiety Integumentary: Yes Psoriasis Blood Disorders: No Adverse Reaction/Blood Tranf: No (LEE CARDENAS MD) Family Medical History Congestive heart failure 19 MOTHER Family history: Arthritis 19 FATHER 19 MOTHER Family history: Cardiovascular disease 19 FATHER 19 MOTHER Family history: Diabetes mellitus 19 FATHER Family history: Glaucoma 19 MOTHER Family history: Hypertension 19 FATHER 19 MOTHER Family history: Osteoporosis 19 MOTHER Hearing loss 19 MOTHER Heart disease 19 FATHER 19 MOTHER Myocardial infarction 19 FATHER 19 MOTHER (DBL BYPASS) Stroke 19 MOTHER (MICRO STROKES) No Family History of: Abdominal aortic aneurysm Silverdale's disease Alcoholism Aphasia Cancer Cancer of colon Cataract Chest pain Congenital heart disease Cystic fibrosis Dementia Dysphagia Family history: Allergy Family history: Alzheimer's disease Family history: Asthma Family history: Breast disease Family history: Coronary thrombosis Family history: Gastrointestinal disease Family history: Thyroid disorder Headache Hereditary disease History of - anemia History of - disorder History of - respiratory disease History of drug abuse Human immunodeficiency virus (HIV) seropositivity Hypercholesterolemia Infertile Kidney disease Malignant neoplasm of lung Parkinson's disease Prostate cancer Psychotic disorder Seizure disorder Tuberculosis Visual impairment Heart Disease, Diabetes, Hypertension PAST SURGICAL HISTORY: -CARDIAC CATHS--STENTS X 2 IN 2018. LAST CATH 02/04/19--NO INTERVENTION. HAD PATENT STENT TO LEFT CIRCUMFLEX, WITH COMPLETE OCCLUSION OF LEFT PDA; PATENT STENT TO RCA; MILD DISEASE IN OTHER VESSELS -APPENDECTOMY -EGD'S AND COLONOSCOPIES WITH POLYPECTOMY -BILATERAL CARPAL TUNNEL SURGERY -LEFT HAND SURGERY -LEFT FOOT SURGERY (LEE CARDENAS MD) Physical Exam Vital Signs Vital Signs - First Documented 01/22/21 17:10 Temp 36.8 Pulse 84 Resp 22 B/P (MAP) 150/85 (106) Pulse Ox 100 O2 Delivery Nasal Cannula O2 Flow Rate 3.00 (BELTRAN KAT MD) Vital Signs Capillary Refill : Less Than 3 Seconds (LEE CARDENAS MD) Height, Weight, BMI Height: 5'9.00" Weight: 247lbs. 7.0oz. 112.097328ju; 35.00 BMI Method:Stated General Appearance: No Apparent Distress, WD/WN HEENT: PERRL/EOMI, Normal ENT Inspection, Other (Mucous membranes somewhat dry) Neck: Normal Inspection Respiratory: Lungs Clear, Normal Breath Sounds, No Accessory Muscle Use, No Respiratory Distress Cardiovascular: Regular Rate, Rhythm, No Murmur Gastrointestinal: Normal Bowel Sounds, Non Tender, Soft Extremity: Non Tender, Swelling Neurologic/Psychiatric: Alert, Oriented x3, No Motor/Sensory Deficits, process stripper II- XII Norm as Tested, Other (Anxious) Skin: Normal Color, Warm/Dry (LEE ACRDENAS MD) Procedures/Interventions Date of ETT Placement: Dec 31, 2020 Time of ETT Placement: 1600 (LEE CARDENAS MD) Progress/Results/Core Measures Results/Orders Lab Results Laboratory Tests Test 01/22/21 17:40 01/22/21 19:40 01/22/21 20:00 Range/Units Prothrombin Time 16.9 H 12.2-14.7 SEC INR Comment 1.3 0.8-1.4 Activated Partial Thromboplast Time 42 H 24-35 SEC Sodium Level 140 135-145 MMOL/L Potassium Level 4.2 3.6-5.0 MMOL/L Chloride Level 102 98-107 MMOL/L Carbon Dioxide Level 20 L 21-32 MMOL/L Anion Gap 18 H 5-14 MMOL/L Blood Urea Nitrogen 17 7-18 MG/DL Creatinine 1.60 H 0.60-1.30 MG/DL Estimat Glomerular Filtration Rate 44 BUN/Creatinine Ratio 11 Glucose Level 109 H 70-105 MG/DL Calcium Level 8.4 L 8.5-10.1 MG/DL Corrected Calcium 8.7 8.5-10.1 MG/DL Magnesium Level 1.0 *L 1.6-2.4 MG/DL Total Bilirubin 0.4 0.1-1.0 MG/DL Aspartate Amino Transf (AST/SGOT) 21 5-34 U/L Alanine Aminotransferase (ALT/SGPT) 17 0-55 U/L Alkaline Phosphatase 130 40-136 U/L Myoglobin 58.8 10.0-92.0 NG/ML Troponin I < 0.028 < 0.028 <0.028 NG/ML Total Protein 7.5 6.4-8.2 GM/DL Albumin 3.6 3.2-4.5 GM/DL White Blood Count 9.0 4.3-11.0 10^3/uL Red Blood Count 4.03 L 4.30-5.52 10^6/uL Hemoglobin 11.5 L 13.3-17.7 g/dL Hematocrit 35 L 40-54 % Mean Corpuscular Volume 87 80-99 fL Mean Corpuscular Hemoglobin 29 25-34 pg Mean Corpuscular Hemoglobin Concent 33 32-36 g/dL Red Cell Distribution Width 13.0 10.0-14.5 % Platelet Count 380 130-400 10^3/uL Mean Platelet Volume 9.3 9.0-12.2 fL Immature Granulocyte % (Auto) 0 % Neutrophils (%) (Auto) 64 42-75 % Lymphocytes (%) (Auto) 19 12-44 % Monocytes (%) (Auto) 7 0-12 % Eosinophils (%) (Auto) 9 0-10 % Basophils (%) (Auto) 1 0-10 % Neutrophils # (Auto) 5.7 1.8-7.8 10^3/uL Lymphocytes # (Auto) 1.7 1.0-4.0 10^3/uL Monocytes # (Auto) 0.7 0.0-1.0 10^3/uL Eosinophils # (Auto) 0.8 H 0.0-0.3 10^3/uL Basophils # (Auto) 0.1 0.0-0.1 10^3/uL Immature Granulocyte # (Auto) 0.0 0.0-0.1 10^3/uL B-Type Natriuretic Peptide 26.0 <100.0 PG/ML (BELTRAN KAT MD) My Orders Orders - BELTRAN KAT MD Ns Iv 500 Ml (Sodium Chloride 0.9%) (01/22/21 18:30) Troponin I Yancey (01/22/21 19:40) (BELTRAN KAT MD) Medications Given in ED Current Medications Medications Dose Ordered Sig/Brissa Route Start Time Stop Time Status Last Admin Dose Admin Acetaminophen/ Hydrocodone Bitart 1 ea ONCE ONCE PO 01/22/21 18:15 01/22/21 18:17 DC 01/22/21 19:25 1 EA Lorazepam 0.5 mg ONCE ONCE IVP 01/22/21 18:15 01/22/21 18:17 DC 01/22/21 19:25 0.5 MG Magnesium Sulfate/ Dextrose 100 ml @ 100 mls/hr ONCE ONCE IV 01/22/21 18:15 01/22/21 19:14 DC 01/22/21 19:28 100 MLS/HR Magnesium Sulfate/ Dextrose 100 ml @ 100 mls/hr ONCE ONCE IV 01/22/21 19:30 01/22/21 20:29 DC 01/22/21 19:50 100 MLS/HR Sodium Chloride 500 ml @ 0 mls/hr Q0M ONCE IV 01/22/21 18:30 01/22/21 18:31 DC 01/22/21 19:54 0 MLS/HR (BELTRAN KAT MD) Vital Signs/I&O 01/22/21 17:10 Temp 36.8 Pulse 84 Resp 22 B/P (MAP) 150/85 (106) Pulse Ox 100 O2 Delivery Nasal Cannula O2 Flow Rate 3.00 (BELTRAN KAT MD) Blood Pressure Mean: 106 Progress Progress Note : Time: 19:23 Progress Note Initial work-up was unremarkable. Patient's pain is managed with hydrocodone and anxiety is being treated with Ativan. We are replacing magnesium by IV route. Repeat troponin is pending. Care of this patient is being transitioned to Dr. KAT. Patient's creatinine is slightly elevated from baseline as well so we have been administering IV fluids. (LEE CARDENAS MD) Progress Note : Progress Note 2134: Repeat troponin is negative. BNP is negative. Patient received 500 mL of normal saline as well as 2 g of magnesium IV. Overall he is doing better curre ntly. No breathing problems. He is able to stay in the hotel [facility] with a friend and so was comfortable with discharge. He has appointment with Dr. Coronado on January 30. He can follow-up with the magnesium level. I will prescribe magnesium oxide 3 times daily for 2 weeks and they can adjust as needed. I did inform him of the potential for increasing loose stools with this . He will call Dr. Ortega's office in the morning for appointment. Discharged home with return precautions. Patient verbalized understanding instructions and agreement with plan. (BELTRAN KAT MD) Initial ECG Impression Date: Jan 22, 2021 Initial ECG Impression Time: 17:14 Initial ECG Rate: 85 Initial ECG Rhythm: Normal Sinus Comment Sinus rhythm with no ST elevation or depression. Slightly prolonged QT interval at 511 ms. No axis deviation. (LEE CARDENAS MD) Diagnostic Imaging Diagonstic Imaging: Xray Plain Films/CT/US/NM/MRI: chest Comments NAME: DAREN BARRIOS [facility] REC#: [id number] PT STATUS: REG ER : 1960 PHYSICIAN: LEE CARDENAS MD ADMIT DATE: 01/22/21/ER Signed Date of Exam:01/22/21 CHEST 1 VIEW, AP/PA ONLY EXAMINATION: Chest 1 view. HISTORY: Chest pain. Anxiety. Shortness of breath. COMPARISON: 01/13/2021. FINDINGS: The lung volumes are normal. Platelike atelectasis is seen in the lung bases. No large pleural effusion or pneumothorax is seen. The cardiomediastinal silhouette is normal in size and contour. No acute osseous abnormality is seen. IMPRESSION: Platelike atelectasis in the lung bases. No focal consolidation or pleural effusion. Dictated by: Dictated on workstation # [id number] Dict: 01/22/211747 Trans: 01/22/211749 [facility] [id number] Interpreted by: ZARINA FISCHER DO Electronically signed by: ZARINA FISCHER DO 01/22/211749 (LEE CARDENAS MD) Departure Impression Primary Impression: Chest pain Qualified Codes: R07.9 - Chest pain, unspecified Additional Impressions: Anxiety Hypomagnesemia Acute renal insufficiency Disposition: HOME, SELF-CARE Condition: Improved Departure-Patient Inst. Decision time for Depature: 21:38 (BELTRAN KAT MD) Referrals: KATE CORONADO MD (PCP/Family) Primary Care Physician CROW ORTEGA MD Patient Instructions: Chest Pain, Adult ED, Anxiety, Adult ED, Low Magnesium Level (DC) Add. Discharge Instructions: All discharge instructions reviewed with patient and/or family. Voiced understanding. Drink plenty of fluids. Call Dr. Ortega's office in the morning for repeat appointment. Keep appointment with your primary care doctor on the as scheduled. Talk with him about your magnesium level. A copy of the chart was sent to both providers. You need to clean out the ammonia smell in your house to improve your situation there. Continue other medications as previously prescribed. Return for worse pain, fever, vomiting, weakness, breathing problems or other concerns as needed. Your kidney function did show that you were a little dry today. Please make sure you are drinking an adequate amount of fluids. Scripts Magnesium Oxide (Mag-Oxide) 200 Mg Tablet 200 MG PO TID, #42 TAB 0 Refills Prov: BELTRAN KAT MD 01/22/21 Copy Copies To 1: CROW ORTEGA MD Copies To 2: KATE CORONADO MD, JOSHUA T MD Jan 22, 2021 19:25 BELTRAN KAT MD Jan 22, 2021 21:41
[2021-01-22 20:09] LABS: BASOPHILS # (AUTO) 0.1 10^3/uL (0.0-0.1); BASOPHILS % (AUTO) 1 % (0-10); EOSINOPHILS # (AUTO) 0.8 10^3/uL (0.0-0.3); EOSINOPHILS % (AUTO) 9 % (0-10); HEMATOCRIT 35 % (40-54); HEMOGLOBIN 11.5 g/dL (13.3-17.7); LYMPHOCYTES # (AUTO) 1.7 10^3/uL (1.0-4.0); LYMPHOCYTES % (AUTO) 19 % (12-44); MEAN CORPUSCULAR HEMOGLOBIN 29 pg (25-34); MEAN CORPUSCULAR HGB CONC 33 g/dL (32-36); MEAN CORPUSCULAR VOLUME 87 fL (80-99); MEAN PLATELET VOLUME 9.3 fL (9.0-12.2); MONOCYTES # (AUTO) 0.7 10^3/uL (0.0-1.0); MONOCYTES % (AUTO) 7 % (0-12); NEUTROPHILS # (AUTO) 5.7 10^3/uL (1.8-7.8); NEUTROPHILS % (AUTO) 64 % (42-75); PLATELET COUNT 380 10^3/uL (130-400)
[2021-01-22] MEDS ORDERED: MAGN200T8 PO (21:42)
[2021-01-22 22:01] VITALS: BP 158/96
== END 2021-01-22 22:00 | disposition home or self-care (01) ==
LOC: EDUNIT# 17:10 → ER 17:11
DX: R07.9 Chest pain, unspecified (principal); F41.9 Anxiety disorder, unspecified; E83.42 Hypomagnesemia; N28.9 Disorder of kidney and ureter, unspecified; J45.909 Unspecified asthma, uncomplicated; G47.30 Sleep apnea, unspecified; I10 Essential (primary) hypertension; E78.00 Pure hypercholesterolemia, unspecified; I25.10 Atherosclerotic heart disease of native coronary artery without angina pectoris; K21.9 Gastro-esophageal reflux disease without esophagitis; E11.9 Type 2 diabetes mellitus without complications; Z79.01 Long term (current) use of anticoagulants; Z79.899 Other long term (current) drug therapy; Z79.4 Long term (current) use of insulin
CPT/HCPCS: 36415; 71045; 80053; 83735; 83874; 83880; 84484; 85025; 85610; 85730; 93005; 93041

== ENCOUNTER 2021-03-12 17:46 | Emergency (ER) | payer MEDICARE ==
[~2021-03-12] VITALS: Ht 172 cm; Wt 106.8 kg
[~2021-03-12 17:46] MED LIST changes: +MAGN200T8 PO
[2021-03-12] MEDS ORDERED: HYDROcodone/APAP 5 MG/325 MG (LORTAB) TAB PO ONE (18:15)
--- NOTE | 2021-03-12 18:28 | ED Lower Extremity ---
General Chief Complaint: Lower Extremity Stated Complaint: R LEG SWOLLEN,RED,PAINFUL AND DIFFICULTY WALKING Nursing Triage Note: AMB TO ROOM REPORTS WEARS COMPRESSION SOCKS AT NIGHT AND LAST NIGHT HIS R LEG STARTED SWELLING AND PAINFUL Source: patient Exam Limitations: no limitations (BREONNA NICHOLS APRN) History of Present Illness Date Seen by Provider: Mar 12, 2021 Time Seen by Provider: 18:26 Initial Comments To ER with reports of right lower extremity swelling and discomfort that began last night. No known cause or injury. Suffered cardiac arrest back in December. He is on Xarelto daily. Denies any fevers or chills. Has not missed any anticoagulant doses. Onset: yesterday Severity: moderate Pain/Injury Location: right leg Method of Injury: unknown Modifying Factors: Worse With Movement (BREONNA NICHOLS APRN) Allergies and Home Medications Allergies Coded Allergies: aspirin (Verified Allergy, Severe, 12/10/17) egg (Verified Allergy, Intermediate, Vomiting, 03/21/20) Penicillins (Unverified Allergy, Unknown, 07/19/13) Sulfa (Sulfonamide Antibiotics) (Unverified Allergy, Unknown, 07/19/13) lidocaine (Verified Allergy, Unknown, 01/06/16) peanut (Unverified Allergy, Unknown, air closes off, 07/19/13) strawberry (Unverified Allergy, Unknown, airway closes off, 07/19/13) codeine (Unverified Adverse Reaction, Mild, NAUSEA, 02/03/14) Uncoded Allergies: ENVIRONMENTAL (Allergy, Unknown, 07/19/13) raw egg whites (Adverse Reaction, Unknown, upset stomach, 12/09/17) Patient Home Medication List Home Medication List Reviewed: Yes (BREONNA NICHOLS APRN) Amlodipine Besylate (Amlodipine Besylate) 10 Mg Tablet, 10 MG PO DAILY, (Reported) Entered as Reported by: DEDRICK CARPENTER on 02/04/19 0837 Atorvastatin Calcium (Lipitor) 40 Mg Tablet, 40 MG PO HS, (Reported) Entered as Reported by: DEDRICK CARPENTER on 02/04/19 0837 Clopidogrel Bisulfate (Plavix) 75 Mg Tablet, 75 MG PO DAILY, (Reported) Entered as Reported by: DEDRICK CARPENTER on 01/03/21 1057 Cyclobenzaprine HCl (Cyclobenzaprine HCl) 5 Mg Tablet, 5 MG PO TID PRN for MUSCLE CRAMPS, (Reported) Entered as Reported by: DEDRICK CARPENTER on 12/23/20 1515 Diclofenac Sodium (Diclofenac Sodium) 100 Gm Gel..gram., 2 GM TOP QID PRN for PAIN-MODERATE (5-7) Prescribed by: REZA ADAMS on 01/09/21 1141 Duloxetine HCl (Duloxetine HCl) 60 Mg Capsule.dr, 60 MG PO 0900,1700, (Reported) Entered as Reported by: BILL CARIAS on 03/21/20 1545 Epinephrine (Epipen 2-Kobe) 0.3 Mg/0.3 Ml Auto.injct, 0.3 MG IJ PRN PRN for al lergic reaction Prescribed by: REZA ADAMS on 01/09/21 1141 Furosemide (Furosemide) 40 Mg Tablet, 40 MG PO DAILY, (Reported) Entered as Reported by: DEDRICK CARPENTER on 05/24/20 1028 Insulin Aspart (Novolog Flexpen) 300 Units/3 Ml Solution, 5 UNITS SQ TID, (Reported) Entered as Reported by: DEDRICK CARPENTER on 12/23/20 1515 Insulin Detemir (Levemir Flextouch) 100 Unit/1 Ml Insuln.pen, 15 UNIT SQ HS, (Reported) Entered as Reported by: DEDRICK CARPENTER on 02/04/19 0910 Isosorbide Mononitrate (Isosorbide Mononitrate ER) 30 Mg Tab.er.24h, 30 MG PO DAILY, (Reported) Entered as Reported by: DEDRICK CARPENTER on 01/03/21 1057 Losartan Potassium (Losartan Potassium) 100 Mg Tablet, 100 MG PO DAILY, (Reported) Entered as Reported by: DEDRICK CARPENTER on 11/11/19 1648 Magnesium Oxide (Mag-Oxide) 200 Mg Tablet, 200 MG PO TID Prescribed by: BELTRAN KAT on 01/22/21 2142 Metoprolol Succinate (Metoprolol Succinate) 100 Mg Tab.er.24h, 100 MG PO DAILY, (Reported) Entered as Reported by: DEDRICK CARPENTER on 01/03/21 1057 Mupirocin (Mupirocin) 22 Gm Oint...g., 1 APPLIC TP BID, (Reported) Entered as Reported by: DEDRICK CARPENTER on 12/23/20 1515 Nitroglycerin (Nitroglycerin) 0.4 Mg Tab.subl, 0.4 MG SL UD PRN for CHEST PAIN, (Reported) Entered as Reported by: DEDRICK CARPENTER on 01/03/21 1057 Pantoprazole Sodium (Pantoprazole Sodium) 40 Mg Tablet.dr, 40 MG PO DAILY Prescribed by: REZA ADAMS on 01/09/21 1141 Potassium Chloride (Potassium Chloride) 10 Meq Tab.er.prt, 10 MEQ PO DAILY, (Reported) Entered as Reported by: BILL CARIAS on 03/21/20 1545 Rivaroxaban (Xarelto Tablet) 15 Mg Tablet, 15 MG PO DAILY@1700, (Reported) Entered as Reported by: DEDRICK CARPENTER on 01/03/21 1057 Sitagliptin Phos/Metformin HCl (Janumet 50-1,000 mg Tablet) 1 Each Tablet, 1 EACH PO 0900,1700, (Reported) Entered as Reported by: DEDRICK CARPENTER on 02/04/19 0822 Tobramycin/Dexamethasone (Tobradex Eye Ointment) 3.5 Gm Oint, 1 APPLIC OP TID, (Reported) Entered as Reported by: DEDRICK CARPENTER on 12/23/20 1515 Review of Systems Constitutional: see HPI EENTM: see HPI Respiratory: no symptoms reported Cardiovascular: no symptoms reported Genitourinary: no symptoms reported Musculoskeletal: no symptoms reported Skin: no symptoms reported Psychiatric/Neurological: No Symptoms Reported (BREONNA NICHOLS APRN) Past Haekvxe-Ijxnfk-Krauxm Hx Immunizations Up To Date Tetanus Booster (TDap): Unknown First/Initial COVID19 Vaccinat: August COVID19 Vaccination Jose: September COVID19 Vaccination Date: 05/18/20 COVID19 Vaccine Assessment Technician: JOSE (BREONNA NICHOLS APRN) Seasonal Allergies Seasonal Allergies: Yes (BREONNA NICHOLS APRN) Past Medical History Surgery/Hospitalization HX: 12/29 HEART CATH WITH STENTS. PREVIOUS STENTS PLACED SUDDEN CARDIAC ARREST 12/2020 Surgeries: Yes (CARPAL TUNNEL RELASE SX, LEFT HAND SURGERY, L FOOT, EGD/COLONOSCOPY) Cardiac, Coronary Stent, Gallbladder, Orthopedic, Tonsillectomy Respiratory: Yes (RLL PUL. NODULE--FOLLOWED EVERY 6 MONTHS;INTUBATED 2018/PULM EDEMA/ARF ) Asthma, Sleep Apnea Currently Using CPAP: Yes Currently Using BIPAP: Yes Cardiac: Yes (CAD--STENTS X 2; MR/TR, history of cardiopulmonary arrest) Coronary Artery Disease, High Cholesterol, Hypertension, Irregular Heartbeat, Valvular Heart Disease Neurological: Yes Neuropathy Reproductive Disorders: No Sexually Transmitted Disease: No Genitourinary: No Gastrointestinal: Yes Gastroesophageal Reflux, Polyps, Hiatal Hernia, Ulcer Musculoskeletal: Yes (BILAT CARPAL TUNNEL SURG;L HAND SURG; L FOOT SURG) Arthritis Endocrine: Yes Diabetes, Insulin dep HEENT: No Loss of Vision: Denies Hearing Impairment: Denies Cancer: No Psychosocial: Yes Anxiety Integumentary: Yes Psoriasis Blood Disorders: No Adverse Reaction/Blood Tranf: No (BREONNA NICHOLS APRN) Family Medical History Congestive heart failure 19 MOTHER Family history: Arthritis 19 FATHER 19 MOTHER Family history: Cardiovascular disease 19 FATHER 19 MOTHER Family history: Diabetes mellitus 19 FATHER Family history: Glaucoma 19 MOTHER Family history: Hypertension 19 FATHER 19 MOTHER Family history: Osteoporosis 19 MOTHER Hearing loss 19 MOTHER Heart disease 19 FATHER 19 MOTHER Myocardial infarction 19 FATHER 19 MOTHER (DBL BYPASS) Stroke 19 MOTHER (MICRO STROKES) No Family History of: Abdominal aortic aneurysm Sony's disease Alcoholism Aphasia Cancer Cancer of colon Cataract Chest pain Congenital heart disease Cystic fibrosis Dementia Dysphagia Family history: Allergy Family history: Alzheimer's disease Family history: Asthma Family history: Breast disease Family history: Coronary thrombosis Family history: Gastrointestinal disease Family history: Thyroid disorder Headache Hereditary disease History of - anemia History of - disorder History of - respiratory disease History of drug abuse Human immunodeficiency virus (HIV) seropositivity Hypercholesterolemia Infertile Kidney disease Malignant neoplasm of lung Parkinson's disease Prostate cancer Psychotic disorder Seizure disorder Tuberculosis Visual impairment Heart Disease, Diabetes, Hypertension PAST SURGICAL HISTORY: -CARDIAC CATHS--STENTS X 2 IN 2018. LAST CATH 02/04/19--NO INTERVENTION. HAD PATENT STENT TO LEFT CIRCUMFLEX, WITH COMPLETE OCCLUSION OF LEFT PDA; PATENT STENT TO RCA; MILD DISEASE IN OTHER VESSELS -APPENDECTOMY -EGD'S AND COLONOSCOPIES WITH POLYPECTOMY -BILATERAL CARPAL TUNNEL SURGERY -LEFT HAND SURGERY -LEFT FOOT SURGERY (BREONNA NICHOLS APRN) Physical Exam Vital Signs Vital Signs - First Documented 03/12/21 03/12/21 17:55 19:06 Temp 35.9 Pulse 89 Resp 18 B/P (MAP) 153/87 (109) Pulse Ox 96 O2 Delivery Room Air (NIKOLE MONSON Waqar DO) Vital Signs Capillary Refill : Less Than 3 Seconds (BREONNA NICHOLS APRN) Height, Weight, BMI Height: 5'9.00" Weight: 247lbs. 7.0oz. 112.423450cb; 36.00 BMI Method:Stated General Appearance: WD/WN, no apparent distress HEENT: PERRL/EOMI, normal ENT inspection Neck: non-tender, full range of motion Respiratory: no respiratory distress, no accessory muscle use Hips: bilateral hip non-tender, bilateral hip normal inspection, bilateral hip normal range of motion Legs: right leg pain, right leg other (There is swelling to the right lower extremity beginning at the knee and extending distally. The skin is normal appearance without erythema petechiae or ecchymosis.) Knees: bilateral knee non-tender, bilateral knee normal inspection, bilateral knee normal range of motion Ankles: bilateral ankle non-tender, bilateral ankle normal inspection, bilateral ankle normal range of motion Feet: bilateral foot non-tender, bilateral foot normal inspection, bilateral foot normal range of motion Neurologic/Psychiatric: alert, normal mood/affect, oriented x 3 Skin: normal color, warm/dry (BREONNA NICHOLS APRN) Procedures/Interventions Date of ETT Placement: Dec 31, 2020 Time of ETT Placement: 1600 (BREONNA NICHOLS APRN) Progress/Results/Core Measures Results/Orders Lab Results Laboratory Tests Test 03/12/21 18:25 Range/Units White Blood Count 11.8 H 4.3-11.0 10^3/uL Red Blood Count 3.76 L 4.30-5.52 10^6/uL Hemoglobin 10.4 L 13.3-17.7 g/dL Hematocrit 33 L 40-54 % Mean Corpuscular Volume 88 80-99 fL Mean Corpuscular Hemoglobin 28 25-34 pg Mean Corpuscular Hemoglobin Concent 31 L 32-36 g/dL Red Cell Distribution Width 14.6 H 10.0-14.5 % Platelet Count 380 130-400 10^3/uL Mean Platelet Volume 9.6 9.0-12.2 fL Immature Granulocyte % (Auto) 0 % Neutrophils (%) (Auto) 79 H 42-75 % Lymphocytes (%) (Auto) 10 L 12-44 % Monocytes (%) (Auto) 6 0-12 % Eosinophils (%) (Auto) 5 0-10 % Basophils (%) (Auto) 0 0-10 % Neutrophils # (Auto) 9.3 H 1.8-7.8 10^3/uL Lymphocytes # (Auto) 1.1 1.0-4.0 10^3/uL Monocytes # (Auto) 0.7 0.0-1.0 10^3/uL Eosinophils # (Auto) 0.6 H 0.0-0.3 10^3/uL Basophils # (Auto) 0.0 0.0-0.1 10^3/uL Immature Granulocyte # (Auto) 0.1 0.0-0.1 10^3/uL D-Dimer 1.71 H 0.00-0.49 UG/ML Sodium Level 137 135-145 MMOL/L Potassium Level 3.8 3.6-5.0 MMOL/L Chloride Level 103 98-107 MMOL/L Carbon Dioxide Level 20 L 21-32 MMOL/L Anion Gap 14 5-14 MMOL/L Blood Urea Nitrogen 16 7-18 MG/DL Creatinine 1.29 0.60-1.30 MG/DL Estimat Glomerular Filtration Rate 63 BUN/Creatinine Ratio 12 Glucose Level 277 H 70-105 MG/DL Calcium Level 8.9 8.5-10.1 MG/DL Corrected Calcium 9.5 8.5-10.1 MG/DL Total Bilirubin 0.3 0.1-1.0 MG/DL Aspartate Amino Transf (AST/SGOT) 15 5-34 U/L Alanine Aminotransferase (ALT/SGPT) 11 0-55 U/L Alkaline Phosphatase 117 40-136 U/L B-Type Natriuretic Peptide 76.3 <100.0 PG/ML Total Protein 6.8 6.4-8.2 GM/DL Albumin 3.3 3.2-4.5 GM/DL (ERMIASNIKOLE K DO) Medications Given in ED Current Medications Medications Dose Ordered Sig/Brissa Route Start Time Stop Time Status Last Admin Dose Admin Acetaminophen/ Hydrocodone Bitart 1 ea ONCE ONCE PO 03/12/21 18:15 03/12/21 18:16 DC 03/12/21 18:18 1 EA (ERMIASNIKOLE K DO) Vital Signs/I&O 03/12/21 03/12/21 17:55 19:06 Temp 35.9 36.6 Pulse 89 86 Resp 18 16 B/P (MAP) 153/87 (109) 166/87 Pulse Ox 96 95 O2 Delivery Room Air (NIKOLE MONSON DO) Blood Pressure Mean: 109 Departure Communication (Admissions) 1900-I will arrange for an outpatient venous ultrasound tomorrow with results to be sent to Dr. Robbins at [facility] since we do not have ultrasound available tonight. He is already anticoagulated on Xarelto making DVT less likely but not impossible. I will have him go home elevate the leg and wear his compression stockings as directed. Is not short of breath or tachycardic and has no indication clinically of a pulmonary embolism. (BREONNA NICHOLS APRN) Impression Primary Impression: Right leg swelling Disposition: HOME, SELF-CARE Condition: Stable Departure-Patient Inst. Decision time for Depature: 18:58 (BREONNA NICHOLS APRN) Referrals: KATE CORONADO MD (PCP/Family) Primary Care Physician Patient Instructions: Dependent Edema (DC) Add. Discharge Instructions: Continue to wear the compression stockings as directed. Elevate the leg is much as possible tonight. Continue your Xarelto blood thinner use. Call the phone number highlighted on the outpatient ultrasound order tomorrow morning to determine what time you should arrive for the ultrasound. The results will be faxed to Dr. Coronado at [facility]. All discharge instructions reviewed with patient and/or family. Voiced understanding. ATTENDING PHYSICIAN NOTE: I WAS PHYSICALLY PRESENT ER PHYSICIAN WHEN THIS PATIENT WAS IN ER, BUT I WAS NOT INVOLVED IN ANY DECISION MAKING OR ANY CARE OF THIS PATIENT. (NIKOLE MONSON DO) Copy Copies To 1: KATE CORONADO MD, PETER J APRN Mar 12, 2021 18:28 NIKOLE MONSON DO Mar 13, 2021 05:25
[2021-03-12 18:30] LABS: BASOPHILS % (AUTO) 0 % (0-10); EOSINOPHILS # (AUTO) 0.6 10^3/uL (0.0-0.3); EOSINOPHILS % (AUTO) 5 % (0-10); HEMATOCRIT 33 % (40-54); HEMOGLOBIN 10.4 g/dL (13.3-17.7); LYMPHOCYTES # (AUTO) 1.1 10^3/uL (1.0-4.0); LYMPHOCYTES % (AUTO) 10 % (12-44); MEAN CORPUSCULAR HEMOGLOBIN 28 pg (25-34); MEAN CORPUSCULAR HGB CONC 31 g/dL (32-36); MEAN CORPUSCULAR VOLUME 88 fL (80-99); MEAN PLATELET VOLUME 9.6 fL (9.0-12.2); MONOCYTES # (AUTO) 0.7 10^3/uL (0.0-1.0); MONOCYTES % (AUTO) 6 % (0-12); NEUTROPHILS # (AUTO) 9.3 10^3/uL (1.8-7.8); NEUTROPHILS % (AUTO) 79 % (42-75); PLATELET COUNT 380 10^3/uL (130-400); WHITE BLOOD COUNT 11.8 10^3/uL (4.3-11.0)
--- NOTE | 2021-03-12 18:40 | Diagnostic Imaging Report ---
INDICATION: Shortness of air. COMPARISON: 01/22/2021. FINDINGS: The heart is enlarged. There is some mild vascular congestion. No matt edema or pneumonia. No pleural fluid. IMPRESSION: Cardiomegaly and vascular congestion but the lungs appear clear and there is no pleural pathology apparent. Dictated by: Dictated on workstation # [id number]
[2021-03-12 18:44] LABS: ALBUMIN 3.3 GM/DL (3.2-4.5); POTASSIUM 3.8 MMOL/L (3.6-5.0)
[2021-03-12 18:45] LABS: CALCIUM 8.9 MG/DL (8.5-10.1)
[2021-03-12 18:47] LABS: TOTAL PROTEIN 6.8 GM/DL (6.4-8.2)
[2021-03-12 18:49] LABS: BILIRUBIN,TOTAL 0.3 MG/DL (0.1-1.0)
[2021-03-12 18:50] LABS: CREATININE SERUM 1.29 MG/DL (0.60-1.30)
[2021-03-12 19:06] VITALS: BP 166/87
== END 2021-03-12 19:08 | disposition home or self-care (01) ==
LOC: EDUNIT# 17:46 → ER 17:48
DX: M79.89 Other specified soft tissue disorders (principal); J45.909 Unspecified asthma, uncomplicated; G47.30 Sleep apnea, unspecified; I10 Essential (primary) hypertension; E78.00 Pure hypercholesterolemia, unspecified; I25.10 Atherosclerotic heart disease of native coronary artery without angina pectoris; K21.9 Gastro-esophageal reflux disease without esophagitis; E11.9 Type 2 diabetes mellitus without complications; F41.9 Anxiety disorder, unspecified; Z79.01 Long term (current) use of anticoagulants; Z79.4 Long term (current) use of insulin; Z79.899 Other long term (current) drug therapy
CPT/HCPCS: 36415; 71045; 80053; 83880; 85025; 85379

== ENCOUNTER → 2021-03-13 | Outpatient (CLI) | payer MEDICARE ==
[~2021-03-13] MED LIST changes: +ALBU2.5V4 INH; +CEFU250T80 PO
--- NOTE | 2021-03-13 14:58 | Diagnostic Imaging Report ---
PROCEDURE: US right lower extremity venous. TECHNIQUE: Multiple real-time grayscale images were obtained over the right lower extremity in various projections. Additional spectral analysis and color Doppler duplex images were also obtained. INDICATION: Right leg pain and swelling. FINDINGS: The veins of the right leg have good color filling and compressibility. There is phasic flow and a normal response to augmentation. IMPRESSION: Negative venous Doppler of the right leg. There is a small Prakash's cyst in the right popliteal fossa. Dictated by: Dictated on workstation # [id number]
== END ==
LOC: RAD 13:30
PROVIDERS: ATTEND Nurse Practitioner Family
DX: M71.21 Synovial cyst of popliteal space [Baker], right knee (principal); R79.1 Abnormal coagulation profile

== ENCOUNTER 2021-03-15 18:53 | Emergency (ER) | payer MEDICARE ==
[~2021-03-15 18:53] MED LIST changes: -ALBU2.5V4 INH; -CEFU250T80 PO
--- NOTE | 2021-03-15 19:22 | ED Lower Extremity ---
General Chief Complaint: Lower Extremity Stated Complaint: R LEG SWELLING Source: EMS Exam Limitations: no limitations History of Present Illness Date Seen by Provider: Mar 15, 2021 Time Seen by Provider: 19:20 Initial Comments To ER with right leg swelling by EMS. He was seen here a few days ago for the same does not know his ultrasound results. He has had some shortness of breath today. No cough no fevers. Has had both Covid vaccines and a booster. Onset: just prior to arrival Severity: moderate Pain/Injury Location: right leg Method of Injury: unknown Modifying Factors: Worse With Movement Allergies and Home Medications Allergies Coded Allergies: aspirin (Verified Allergy, Severe, 12/10/17) egg (Verified Allergy, Intermediate, Vomiting, 03/21/20) Penicillins (Unverified Allergy, Unknown, 07/19/13) Sulfa (Sulfonamide Antibiotics) (Unverified Allergy, Unknown, 07/19/13) lidocaine (Verified Allergy, Unknown, 01/06/16) peanut (Unverified Allergy, Unknown, air closes off, 07/19/13) strawberry (Unverified Allergy, Unknown, airway closes off, 07/19/13) codeine (Unverified Adverse Reaction, Mild, NAUSEA, 02/03/14) Uncoded Allergies: ENVIRONMENTAL (Allergy, Unknown, 07/19/13) raw egg whites (Adverse Reaction, Unknown, upset stomach, 12/09/17) Patient Home Medication List Home Medication List Reviewed: Yes Albuterol Sulfate (Albuterol Sulfate) 2.5 Mg/3 Ml Vial.neb, 2.5 MG INH Q4H PRN for WHEEZING Prescribed by: BREONNA NICHOLS on 03/15/212011 Amlodipine Besylate (Amlodipine Besylate) 10 Mg Tablet, 10 MG PO DAILY, (Reported) Entered as Reported by: DEDRICK CARPENTER on 02/04/19 0837 Atorvastatin Calcium (Lipitor) 40 Mg Tablet, 40 MG PO HS, (Reported) Entered as Reported by: DEDRICK CARPENTER on 02/04/19 0837 Cefuroxime Axetil (Cefuroxime) 250 Mg Tablet, 250 MG PO BID Prescribed by: BREONNA NICHOLS on 03/15/212010 Clopidogrel Bisulfate (Plavix) 75 Mg Tablet, 75 MG PO DAILY, (Reported) Entered as Reported by: DEDRICK CARPENTER on 01/03/21 1057 Cyclobenzaprine HCl (Cyclobenzaprine HCl) 5 Mg Tablet, 5 MG PO TID PRN for MUSCLE CRAMPS, (Reported) Entered as Reported by: DEDRICK CARPENTER on 12/23/20 1515 Diclofenac Sodium (Diclofenac Sodium) 100 Gm Gel..gram., 2 GM TOP QID PRN for PAIN-MODERATE (5-7) Prescribed by: REZA ADAMS on 01/09/21 1141 Duloxetine HCl (Duloxetine HCl) 60 Mg Capsule.dr, 60 MG PO 0900,1700, (Reported) Entered as Reported by: BILL CARIAS on 03/21/20 1545 Epinephrine (Epipen 2-Kobe) 0.3 Mg/0.3 Ml Auto.injct, 0.3 MG IJ PRN PRN for allergic reaction Prescribed by: REZA ADAMS on 01/09/21 1141 Furosemide (Furosemide) 40 Mg Tablet, 40 MG PO DAILY, (Reported) Entered as Reported by: DEDRICK CARPENTER on 05/24/20 1028 Insulin Aspart (Novolog Flexpen) 300 Units/3 Ml Solution, 5 UNITS SQ TID, (Reported) Entered as Reported by: DEDRICK CARPENTER on 12/23/20 1515 Insulin Detemir (Levemir Flextouch) 100 Unit/1 Ml Insuln.pen, 15 UNIT SQ HS, (Reported) Entered as Reported by: DEDRICK CARPENTER on 02/04/19 0910 Isosorbide Mononitrate (Isosorbide Mononitrate ER) 30 Mg Tab.er.24h, 30 MG PO DAILY, (Reported) Entered as Reported by: DEDRICK CARPENTER on 01/03/21 1057 Losartan Potassium (Losartan Potassium) 100 Mg Tablet, 100 MG PO DAILY, (Reported) Entered as Reported by: DEDRICK CARPENTER on 11/11/19 1648 Magnesium Oxide (Mag-Oxide) 200 Mg Tablet, 200 MG PO TID Prescribed by: BELTRAN KAT on 01/22/21 2142 Metoprolol Succinate (Metoprolol Succinate) 100 Mg Tab.er.24h, 100 MG PO DAILY, (Reported) Entered as Reported by: DEDRICK CARPENTER on 01/03/21 1057 Mupirocin (Mupirocin) 22 Gm Oint...g., 1 APPLIC TP BID, (Reported) Entered as Reported by: DEDRICK CARPENTER on 12/23/20 1515 Nitroglycerin (Nitroglycerin) 0.4 Mg Tab.subl, 0.4 MG SL UD PRN for CHEST PAIN, (Reported) Entered as Reported by: DEDRICK CARPENTER on 01/03/21 1057 Pantoprazole Sodium (Pantoprazole Sodium) 40 Mg Tablet.dr, 40 MG PO DAILY Prescribed by: REZA ADAMS on 01/09/21 1141 Potassium Chloride (Potassium Chloride) 10 Meq Tab.er.prt, 10 MEQ PO DAILY, (Reported) Entered as Reported by: BILL CARIAS on 03/21/20 1545 Prednisone (Prednisone) 20 Mg Tab, 40 MG PO DAILY Prescribed by: BREONNA NICHOLS on 03/15/212010 Rivaroxaban (Xarelto Tablet) 15 Mg Tablet, 15 MG PO DAILY@1700, (Reported) Entered as Reported by: DEDRICK CARPENTER on 01/03/21 105 Sitagliptin Phos/Metformin HCl (Janumet 50-1,000 mg Tablet) 1 Each Tablet, 1 EACH PO 0900,1700, (Reported) Entered as Reported by: DEDRICK CARPENTER on 02/04/19 0822 Tobramycin/Dexamethasone (Tobradex Eye Ointment) 3.5 Gm Oint, 1 APPLIC OP TID, (Reported) Entered as Reported by: DEDRICK CARPENTER on 12/23/20 1515 Review of Systems Constitutional: see HPI; No chills, No fever EENTM: see HPI Respiratory: see HPI; No cough; short of breath Cardiovascular: no symptoms reported Genitourinary: no symptoms reported Musculoskeletal: no symptoms reported Skin: no symptoms reported Psychiatric/Neurological: No Symptoms Reported Past Psoswir-Ilrtcp-Eobbss Hx Immunizations Up To Date Tetanus Booster (TDap): Unknown First/Initial COVID19 Vaccinat: August COVID19 Vaccination Jose: September COVID19 Vaccination Date: 05/18/20 Seasonal Allergies Seasonal Allergies: Yes Past Medical History Surgery/Hospitalization HX: 12/29 HEART CATH WITH STENTS. PREVIOUS STENTS PLACED SUDDEN CARDIAC ARREST 12/2020 Surgeries: Yes (CARPAL TUNNEL RELASE SX, LEFT HAND SURGERY, L FOOT, EGD/COLONOSCOPY) Cardiac, Coronary Stent, Gallbladder, Orthopedic, Tonsillectomy Respiratory: Yes (RLL PUL. NODULE--FOLLOWED EVERY 6 MONTHS;INTUBATED 2018/PULM EDEMA/ARF ) Asthma, Sleep Apnea Currently Using CPAP: Yes Currently Using BIPAP: Yes Cardiac: Yes (CAD--STENTS X 2; MR/TR, history of cardiopulmonary arrest) Coronary Artery Disease, High Cholesterol, Hypertension, Irregular Heartbeat, Valvular Heart Disease Neurological: Yes Neuropathy Reproductive Disorders: No Sexually Transmitted Disease: No Genitourinary: No Gastrointestinal: Yes Gastroesophageal Reflux, Polyps, Hiatal Hernia, Ulcer Musculoskeletal: Yes (BILAT CARPAL TUNNEL SURG;L HAND SURG; L FOOT SURG) Arthritis Endocrine: Yes Diabetes, Insulin dep HEENT: No Loss of Vision: Denies Hearing Impairment: Denies Cancer: No Psychosocial: Yes Anxiety Integumentary: Yes Psoriasis Blood Disorders: No Adverse Reaction/Blood Tranf: No Family Medical History Congestive heart failure 19 MOTHER Family history: Arthritis 19 FATHER 19 MOTHER Family history: Cardiovascular disease 19 FATHER 19 MOTHER Family history: Diabetes mellitus 19 FATHER Family history: Glaucoma 19 MOTHER Family history: Hypertension 19 FATHER 19 MOTHER Family history: Osteoporosis 19 MOTHER Hearing loss 19 MOTHER Heart disease 19 FATHER 19 MOTHER Myocardial infarction 19 FATHER 19 MOTHER (DBL BYPASS) Stroke 19 MOTHER (MICRO STROKES) No Family History of: Abdominal aortic aneurysm Todd's disease Alcoholism Aphasia Cancer Cancer of colon Cataract Chest pain Congenital heart disease Cystic fibrosis Dementia Dysphagia Family history: Allergy Family history: Alzheimer's disease Family history: Asthma Family history: Breast disease Family history: Coronary thrombosis Family history: Gastrointestinal disease Family history: Thyroid disorder Headache Hereditary disease History of - anemia History of - disorder History of - respiratory disease History of drug abuse Human immunodeficiency virus (HIV) seropositivity Hypercholesterolemia Infertile Kidney disease Malignant neoplasm of lung Parkinson's disease Prostate cancer Psychotic disorder Seizure disorder Tuberculosis Visual impairment Heart Disease, Diabetes, Hypertension PAST SURGICAL HISTORY: -CARDIAC CATHS--STENTS X 2 IN 2018. LAST CATH 02/04/19--NO INTERVENTION. HAD PATENT STENT TO LEFT CIRCUMFLEX, WITH COMPLETE OCCLUSION OF LEFT PDA; PATENT STENT TO RCA; MILD DISEASE IN OTHER VESSELS -APPENDECTOMY -EGD'S AND COLONOSCOPIES WITH POLYPECTOMY -BILATERAL CARPAL TUNNEL SURGERY -LEFT HAND SURGERY -LEFT FOOT SURGERY Physical Exam Vital Signs Vital Signs - First Documented 03/15/21 18:53 Temp 35.6 Pulse 89 Resp 18 B/P (MAP) 144/81 (102) Pulse Ox 97 O2 Delivery Room Air Capillary Refill : Height, Weight, BMI Height: 5'9.00" Weight: 247lbs. 7.0oz. [id number]; 36.00 BMI Method:Stated General Appearance: WD/WN, no apparent distress HEENT: PERRL/EOMI, normal ENT inspection Neck: non-tender, full range of motion Respiratory: no respiratory distress, no accessory muscle use, other (He is without respiratory distress or any accessory muscle use. He speaks in full sentences his lungs are clear. His heart rate is 87 his oxygen is 95% on room air his respiratory rate is 21, his blood pressure is 144/81.) Hips: bilateral hip non-tender, bilateral hip normal inspection, bilateral hip normal range of motion Legs: left leg non-tender, left leg normal inspection, left leg normal range of motion; right leg soft tissue tenderness, right leg swelling Knees: bilateral knee non-tender, bilateral knee normal inspection, bilateral knee normal range of motion Ankles: bilateral ankle non-tender, bilateral ankle normal inspection, bilateral ankle normal range of motion Feet: bilateral foot non-tender, bilateral foot normal inspection, bilateral foot normal range of motion Neurologic/Psychiatric: alert, normal mood/affect, oriented x 3 Skin: normal color, warm/dry Procedures/Interventions Date of ETT Placement: Dec 31, 2020 Time of ETT Placement: 1600 Progress/Results/Core Measures Results/Orders Lab Results Laboratory Tests Test 03/15/21 18:56 03/15/21 19:35 Range/Units White Blood Count 11.1 H 4.3-11.0 10^3/uL Red Blood Count 3.89 L 4.30-5.52 10^6/uL Hemoglobin 10.8 L 13.3-17.7 g/dL Hematocrit 34 L 40-54 % Mean Corpuscular Volume 87 80-99 fL Mean Corpuscular Hemoglobin 28 25-34 pg Mean Corpuscular Hemoglobin Concent 32 32-36 g/dL Red Cell Distribution Width 14.8 H 10.0-14.5 % Platelet Count 436 H 130-400 10^3/uL Mean Platelet Volume 9.7 9.0-12.2 fL Immature Granulocyte % (Auto) 0 % Neutrophils (%) (Auto) 74 42-75 % Lymphocytes (%) (Auto) 13 12-44 % Monocytes (%) (Auto) 7 0-12 % Eosinophils (%) (Auto) 6 0-10 % Basophils (%) (Auto) 0 0-10 % Neutrophils # (Auto) 8.2 H 1.8-7.8 10^3/uL Lymphocytes # (Auto) 1.4 1.0-4.0 10^3/uL Monocytes # (Auto) 0.8 0.0-1.0 10^3/uL Eosinophils # (Auto) 0.7 H 0.0-0.3 10^3/uL Basophils # (Auto) 0.1 0.0-0.1 10^3/uL Immature Granulocyte # (Auto) 0.1 0.0-0.1 10^3/uL Sodium Level 137 135-145 MMOL/L Potassium Level 3.7 3.6-5.0 MMOL/L Chloride Level 105 98-107 MMOL/L Carbon Dioxide Level 19 L 21-32 MMOL/L Anion Gap 13 5-14 MMOL/L Blood Urea Nitrogen 15 7-18 MG/DL Creatinine 1.14 0.60-1.30 MG/DL Estimat Glomerular Filtration Rate 74 BUN/Creatinine Ratio 13 Glucose Level 144 H 70-105 MG/DL Calcium Level 8.9 8.5-10.1 MG/DL Corrected Calcium 9.5 8.5-10.1 MG/DL Total Bilirubin 0.3 0.1-1.0 MG/DL Aspartate Amino Transf (AST/SGOT) 16 5-34 U/L Alanine Aminotransferase (ALT/SGPT) 10 0-55 U/L Alkaline Phosphatase 105 40-136 U/L B-Type Natriuretic Peptide 53.6 <100.0 PG/ML Total Protein 7.0 6.4-8.2 GM/DL Albumin 3.2 3.2-4.5 GM/DL Procalcitonin 0.10 H <0.10 NG/ML My Orders Orders - BREONNA NICHOLS DIRECTOR [employer]LECT[employer]ICS [facility] [place] (03/15/21 19:19) Cbc With Automated Diff (03/15/21 19:19) Comprehensive Metabolic Panel (03/15/21 19:19) Chest 1 View, Ap/Pa Only (03/15/21 19:19) Procalcitonin (Pct) (03/15/21 19:19) Coronavirus Sars-Cov-2 So 2019 (03/15/21 19:19) Ed Iv/Invasive Line Start (03/15/21 19:19) Rx-Albuterol Nebs (Rx-Proventil Nebs) (03/15/21 20:12) Cephalexin Capsule (Keflex Capsule) (03/15/21 20:15) Prednisone Tablet (Deltasone Tablet) (03/15/21 20:15) Vital Signs/I&O 03/15/21 18:53 Temp 35.6 Pulse 89 Resp 18 B/P (MAP) 144/81 (102) Pulse Ox 97 O2 Delivery Room Air Departure Communication (Admissions) Family Conversation 2005-he remains 98% on room air without accessory muscle use or or significant wheezing. He has diminished. Given his subjective shortness of breath I will put him on some steroids as treatment for COPD exacerbation. He has a nebulizer at home but does not have albuterol for it. He has had a cough which is unusual for him. Covid send out swab is pending. NAME: [facility] REC#: [id number] PT STATUS: REG ER : 1960 PHYSICIAN: BREONNA NICHOLS APRN ADMIT DATE: 03/15/21/ER Signed Date of Exam:03/15/21 CHEST 1 VIEW, AP/PA ONLY INDICATION: Shortness of air. Compared 03/12/2021. FINDINGS: Cardiomegaly unchanged. No matt edema or focal pneumonia. No effusion or pneumothorax. IMPRESSION: The heart is enlarged. The study, however, otherwise unremarkable. Dictated by: Dictated on workstation # [id number] Dict: 03/15/211935 Trans: 03/15/211943 LUCA [id number] Interpreted by: ETELVINA SAHA Electronically signed by: ETELVINA SAHA 03/15/211943 Impression Primary Impression: COPD exacerbation Disposition: HOME, SELF-CARE Condition: Stable Departure-Patient Inst. Decision time for Depature: 20:06 Referrals: KATE CORONADO MD (PCP/Family) Primary Care Physician Patient Instructions: COPD Exacerbation, Adult ED Add. Discharge Instructions: 1. Return to ER for any concerns 2. Steroids as directed. Follow-up with your doctor next week All discharge instructions reviewed with patient and/or family. Voiced understanding. Scripts Albuterol Sulfate (Albuterol Sulfate) 2.5 Mg/3 Ml Vial.neb 2.5 MG INH Q4H PRN for WHEEZING, #50 EA 1 Refill Prov: BREONNA NICHOLS APRN 03/15/21 Cefuroxime Axetil (Cefuroxime) 250 Mg Tablet 250 MG PO BID, #10 TAB Prov: BREONNA NICHOLS APRN 03/15/21 Prednisone (Prednisone) 20 Mg Tab 40 MG PO DAILY, #6 TAB 0 Refills Prov: BREONNA NICHOLS APRN 03/15/21 BREONNA NICHOLS APRN Mar 15, 2021 19:22
[2021-03-15 19:28] LABS: BASOPHILS # (AUTO) 0.1 10^3/uL (0.0-0.1); BASOPHILS % (AUTO) 0 % (0-10); EOSINOPHILS # (AUTO) 0.7 10^3/uL (0.0-0.3); EOSINOPHILS % (AUTO) 6 % (0-10); HEMATOCRIT 34 % (40-54); HEMOGLOBIN 10.8 g/dL (13.3-17.7); LYMPHOCYTES # (AUTO) 1.4 10^3/uL (1.0-4.0); LYMPHOCYTES % (AUTO) 13 % (12-44); MEAN CORPUSCULAR HEMOGLOBIN 28 pg (25-34); MEAN CORPUSCULAR HGB CONC 32 g/dL (32-36); MEAN CORPUSCULAR VOLUME 87 fL (80-99); MEAN PLATELET VOLUME 9.7 fL (9.0-12.2); MONOCYTES # (AUTO) 0.8 10^3/uL (0.0-1.0); MONOCYTES % (AUTO) 7 % (0-12); NEUTROPHILS # (AUTO) 8.2 10^3/uL (1.8-7.8); NEUTROPHILS % (AUTO) 74 % (42-75); PLATELET COUNT 436 10^3/uL (130-400); WHITE BLOOD COUNT 11.1 10^3/uL (4.3-11.0)
[2021-03-15 19:37] LABS: ALBUMIN 3.2 GM/DL (3.2-4.5); BILIRUBIN,TOTAL 0.3 MG/DL (0.1-1.0); CALCIUM 8.9 MG/DL (8.5-10.1); CREATININE SERUM 1.14 MG/DL (0.60-1.30); POTASSIUM 3.7 MMOL/L (3.6-5.0)
--- NOTE | 2021-03-15 19:42 | Diagnostic Imaging Report ---
INDICATION: Shortness of air. Compared 03/12/2021. FINDINGS: Cardiomegaly unchanged. No matt edema or focal pneumonia. No effusion or pneumothorax. IMPRESSION: The heart is enlarged. The study, however, otherwise unremarkable. Dictated by: Dictated on workstation # [id number]
[2021-03-15] MEDS ORDERED: PRD20T PO (20:11)
[2021-03-15] MEDS ORDERED: CEFU250T80 PO (20:11)
[2021-03-15] MEDS ORDERED: RX-ALBUTEROL NEB 2.5 MG/3 ML PACK #5 IH STA (20:12)
[2021-03-15] MEDS ORDERED: ALBU2.5V4 INH (20:12)
[2021-03-15] MEDS ORDERED: CEPHALEXIN 250 MG (KEFLEX) CAP PO ONE (20:15)
[2021-03-15] MEDS ORDERED: predniSONE 20 MG TAB PO ONE (20:15)
[2021-03-15 20:24] VITALS: BP 148/83
== END 2021-03-15 21:03 | disposition home or self-care (01) ==
LOC: EDUNIT# 18:53 → ER 18:55
DX: J44.1 Chronic obstructive pulmonary disease with (acute) exacerbation (principal); G47.30 Sleep apnea, unspecified; I10 Essential (primary) hypertension; E78.00 Pure hypercholesterolemia, unspecified; I25.10 Atherosclerotic heart disease of native coronary artery without angina pectoris; K21.9 Gastro-esophageal reflux disease without esophagitis; F41.9 Anxiety disorder, unspecified; E11.9 Type 2 diabetes mellitus without complications; Z20.822 Contact with and (suspected) exposure to COVID-19; Z79.01 Long term (current) use of anticoagulants; Z79.4 Long term (current) use of insulin; Z79.899 Other long term (current) drug therapy
CPT/HCPCS: 36415; 71045; 80053; 83880; 84145; 85025; 87635

== ENCOUNTER 2021-03-31 20:28 | Emergency (ER) | payer MEDICARE ==
[~2021-03-31] VITALS: Ht 175.3 cm; Wt 112.0 kg
[~2021-03-31 20:28] MED LIST changes: +ALBU2.5V4 INH; +CEFU250T80 PO
[2021-03-31] MEDS ORDERED: fentaNYL INJ 100 MCG/2 ML AMP IM ONE (20:45)
--- NOTE | 2021-03-31 21:05 | Diagnostic Imaging Report ---
EXAMINATION: Pelvis and right hip radiographs. EXAM DATE: 03/31/2021. COMPARISON: 02/16/2012. HISTORY: Right hip pain. TECHNIQUE: 3 views of the pelvis and right hip. FINDINGS: There is no acute fracture, dislocation, or destructive osseous process. The joint spaces are normal. The soft tissues are normal. IMPRESSION: No acute osseous abnormality of the pelvis or right hip. Dictated by: Dictated on workstation # [id number]
[2021-03-31] MEDS ORDERED: FAMOTIDINE 20MG/2ML IV (PEPCID) IVP ONE (21:30)
[2021-03-31] MEDS ORDERED: RX-OXYCODONE/APAP 5-325 MG #4 TAB PK PO PRN (21:45)
[2021-03-31] MEDS ORDERED: oxyCODONE/APAP 5/325MG (PERCOCET 5) TABLET PO ONE (21:45)
--- NOTE | 2021-03-31 21:47 | ED Lower Extremity ---
General Chief Complaint: Lower Extremity Stated Complaint: RIGHT KNEE PAIN Nursing Triage Note: PT TO RM 7 VIA [facility] EMS W C/O RIGHT HIP TO KNEE PAIN. PT REPORTS HE TOOK 10MG HYDROCODONE AT 1700 AND PAIN IS UNRELIEVED. PT A&OX4, WEARS 2L HOME O2 VIA NC AT ALL TIMES. Source: patient, EMS, old records Exam Limitations: no limitations History of Present Illness Date Seen by Provider: Mar 31, 2021 Time Seen by Provider: 20:30 Initial Comments This 60-year-old man presents to the emergency room via EMS with complaints of her right hip and knee pain. He was seen in this ER on March 12 for knee pain. An outpatient ultrasound was obtained after that visit revealing a Prakash's cyst but no DVT. Patient is anticoagulated. Patient had a another visit on March 15 during which he was diagnosed with COPD exacerbation. He was informed at that time of the results of his ultrasound. Despite communicating the results of the ultrasound as a "cyst in the knee" to the EMS crew, he claims he was never informed of the diagnosis. He has new exacerbation of right hip pain tonight as well as the knee pain. He denies any trauma or strain of any kind. EMS reports he was able to independently ambulate to the ambulance. He reports using his walker at home for assistance due to the pain. He took 2 hydrocodone tablets around 1700. Allergies and Home Medications Allergies Coded Allergies: aspirin (Verified Allergy, Severe, 12/10/17) egg (Verified Allergy, Intermediate, Vomiting, 03/21/20) Penicillins (Unverified Allergy, Unknown, 07/19/13) Sulfa (Sulfonamide Antibiotics) (Unverified Allergy, Unknown, 07/19/13) lidocaine (Verified Allergy, Unknown, 01/06/16) peanut (Unverified Allergy, Unknown, air closes off, 07/19/13) strawberry (Unverified Allergy, Unknown, airway closes off, 07/19/13) codeine (Unverified Adverse Reaction, Mild, NAUSEA, 02/03/14) Uncoded Allergies: ENVIRONMENTAL (Allergy, Unknown, 07/19/13) raw egg whites (Adverse Reaction, Unknown, upset stomach, 12/09/17) Patient Home Medication List Home Medication List Reviewed: Yes Albuterol Sulfate (Albuterol Sulfate) 2.5 Mg/3 Ml Vial.neb, 2.5 MG INH Q4H PRN for WHEEZING Prescribed by: BREONNA NICHOLS on 03/15/212011 Amlodipine Besylate (Amlodipine Besylate) 10 Mg Tablet, 10 MG PO DAILY, (Reported) Entered as Reported by: DEDRICK CARPENTER on 02/04/19 0837 Atorvastatin Calcium (Lipitor) 40 Mg Tablet, 40 MG PO HS, (Reported) Entered as Reported by: DEDRICK CARPENTER on 02/04/19 0837 Cefuroxime Axetil (Cefuroxime) 250 Mg Tablet, 250 MG PO BID Prescribed by: BREONNA NICHOLS on 03/15/212010 Clopidogrel Bisulfate (Plavix) 75 Mg Tablet, 75 MG PO DAILY, (Reported) Entered as Reported by: DEDRICK CARPENTER on 01/03/21 1057 Cyclobenzaprine HCl (Cyclobenzaprine HCl) 5 Mg Tablet, 5 MG PO TID PRN for MUSCLE CRAMPS, (Reported) Entered as Reported by: DEDRICK CARPENTER on 12/23/20 1515 Diclofenac Sodium (Diclofenac Sodium) 100 Gm Gel..gram., 2 GM TOP QID PRN for PAIN-MODERATE (5-7) Prescribed by: REZA ADAMS on 01/09/21 1141 Duloxetine HCl (Duloxetine HCl) 60 Mg Capsule.dr, 60 MG PO 0900,1700, (Reported) Entered as Reported by: BILL CARIAS on 03/21/20 1545 Epinephrine (Epipen 2-Kobe) 0.3 Mg/0.3 Ml Auto.injct, 0.3 MG IJ PRN PRN for allergic reaction Prescribed by: REZA ADAMS on 01/09/21 1141 Furosemide (Furosemide) 40 Mg Tablet, 40 MG PO DAILY, (Reported) Entered as Reported by: DEDRICK CARPENTER on 05/24/20 1028 Insulin Aspart (Novolog Flexpen) 300 Units/3 Ml Solution, 5 UNITS SQ TID, (Reported) Entered as Reported by: DEDRICK CARPENTER on 12/23/20 1515 Insulin Detemir (Levemir Flextouch) 100 Unit/1 Ml Insuln.pen, 15 UNIT SQ HS, (Reported) Entered as Reported by: DEDRICK CARPENTER on 02/04/19 0910 Isosorbide Mononitrate (Isosorbide Mononitrate ER) 30 Mg Tab.er.24h, 30 MG PO DAILY, (Reported) Entered as Reported by: DEDRICK CARPENTER on 01/03/21 1057 Losartan Potassium (Losartan Potassium) 100 Mg Tablet, 100 MG PO DAILY, (R eported) Entered as Reported by: DEDRICK CARPENTER on 11/11/19 1648 Magnesium Oxide (Mag-Oxide) 200 Mg Tablet, 200 MG PO TID Prescribed by: BELTRAN KAT on 01/22/21 2142 Metoprolol Succinate (Metoprolol Succinate) 100 Mg Tab.er.24h, 100 MG PO DAILY, (Reported) Entered as Reported by: DEDRICK CARPENTER on 01/03/21 1057 Mupirocin (Mupirocin) 22 Gm Oint...g., 1 APPLIC TP BID, (Reported) Entered as Reported by: DEDRICK CARPENTER on 12/23/20 1515 Nitroglycerin (Nitroglycerin) 0.4 Mg Tab.subl, 0.4 MG SL UD PRN for CHEST PAIN, (Reported) Entered as Reported by: DEDRICK CARPENTER on 01/03/21 105 Pantoprazole Sodium (Pantoprazole Sodium) 40 Mg Tablet.dr, 40 MG PO DAILY Prescribed by: REZA ADAMS on 01/09/21 1141 Potassium Chloride (Potassium Chloride) 10 Meq Tab.er.prt, 10 MEQ PO DAILY, (Reported) Entered as Reported by: BILL CARIAS on 03/21/20 1545 Prednisone (Prednisone) 20 Mg Tab, 40 MG PO DAILY Prescribed by: BREONNA NICHOLS on 03/15/212010 Rivaroxaban (Xarelto Tablet) 15 Mg Tablet, 15 MG PO DAILY@1700, (Reported) Entered as Reported by: DEDRICK CARPENTER on 01/03/21 105 Sitagliptin Phos/Metformin HCl (Janumet 50-1,000 mg Tablet) 1 Each Tablet, 1 EACH PO 0900,1700, (Reported) Entered as Reported by: DEDRICK CARPENTER on 02/04/19 0822 Tobramycin/Dexamethasone (Tobradex Eye Ointment) 3.5 Gm Oint, 1 APPLIC OP TID, (Reported) Entered as Reported by: DEDRICK CARPENTER on 12/23/20 1515 Review of Systems Constitutional: no symptoms reported EENTM: no symptoms reported Respiratory: no symptoms reported Cardiovascular: no symptoms reported Gastrointestinal: no symptoms reported Genitourinary: no symptoms reported Musculoskeletal: see HPI Skin: no symptoms reported Psychiatric/Neurological: No Symptoms Reported Past Fwkvvnk-Zlrdrc-Tgpyyy Hx Patient Social History Tobacco Use?: No Use of E-Cig and/or Vaping dev: No Substance use?: No Alcohol Use?: No Immunizations Up To Date Tetanus Booster (TDap): Unknown Influenza Vaccine Up-to-Date: No; Not Current First/Initial COVID19 Vaccinat: August COVID19 Vaccination Jose: September COVID19 Vaccination Date: FEB COVID 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 PREVIOUS STENTS PLACED SUDDEN CARDIAC ARREST 12/2020 Surgeries: Yes (CARPAL TUNNEL RELASE SX, LEFT HAND SURGERY, L FOOT, EGD/COLONOSCOPY) Cardiac, Coronary Stent, Gallbladder, Orthopedic, Tonsillectomy Respiratory: Yes (RLL PUL. NODULE--FOLLOWED EVERY 6 MONTHS;INTUBATED 2017/PULM EDEMA/ARF ) Asthma, Sleep Apnea Currently Using CPAP: Yes Currently Using BIPAP: Yes Cardiac: Yes (CAD--STENTS X 2; MR/TR, history of cardiopulmonary arrest) Coronary Artery Disease, High Cholesterol, Hypertension, Irregular Heartbeat, Valvular Heart Disease Neurological: Yes Neuropathy Reproductive Disorders: No Sexually Transmitted Disease: No Genitourinary: No Gastrointestinal: Yes Gastroesophageal Reflux, Polyps, Hiatal Hernia, Ulcer Musculoskeletal: Yes (BILAT CARPAL TUNNEL SURG;L HAND SURG; L FOOT SURG) Arthritis Endocrine: Yes Diabetes, Insulin dep HEENT: No Loss of Vision: Denies Hearing Impairment: Denies Cancer: No Psychosocial: Yes Anxiety Integumentary: Yes Psoriasis Blood Disorders: No Adverse Reaction/Blood Tranf: No Family Medical History Congestive heart failure 19 MOTHER Family history: Arthritis 19 FATHER 19 MOTHER Family history: Cardiovascular disease 19 FATHER 19 MOTHER Family history: Diabetes mellitus 19 FATHER Family history: Glaucoma 19 MOTHER Family history: Hypertension 19 FATHER 19 MOTHER Family history: Osteoporosis 19 MOTHER Hearing loss 19 MOTHER Heart disease 19 FATHER 19 MOTHER Myocardial infarction 19 FATHER 19 MOTHER (DBL BYPASS) Stroke 19 MOTHER (MICRO STROKES) No Family History of: Abdominal aortic aneurysm Sibley's disease Alcoholism Aphasia Cancer Cancer of colon Cataract Chest pain Congenital heart disease Cystic fibrosis Dementia Dysphagia Family history: Allergy Family history: Alzheimer's disease Family history: Asthma Family history: Breast disease Family history: Coronary thrombosis Family history: Gastrointestinal disease Family history: Thyroid disorder Headache Hereditary disease History of - anemia History of - disorder History of - respiratory disease History of drug abuse Human immunodeficiency virus (HIV) seropositivity Hypercholesterolemia Infertile Kidney disease Malignant neoplasm of lung Parkinson's disease Prostate cancer Psychotic disorder Seizure disorder Tuberculosis Visual impairment Heart Disease, Diabetes, Hypertension PAST SURGICAL HISTORY: -CARDIAC CATHS--STENTS X 2 IN 2018. LAST CATH 02/04/19--NO INTERVENTION. HAD PATENT STENT TO LEFT CIRCUMFLEX, WITH COMPLETE OCCLUSION OF LEFT PDA; PATENT STENT TO RCA; MILD DISEASE IN OTHER VESSELS -APPENDECTOMY -EGD'S AND COLONOSCOPIES WITH POLYPECTOMY -BILATERAL CARPAL TUNNEL SURGERY -LEFT HAND SURGERY -LEFT FOOT SURGERY Physical Exam Vital Signs Vital Signs - First Documented 03/31/21 20:28 Temp 36.0 Pulse 97 Resp 20 B/P (MAP) 143/87 (105) Pulse Ox 99 O2 Delivery Nasal Cannula O2 Flow Rate 2.00 Capillary Refill : Less Than 3 Seconds Height, Weight, BMI Height: 5'9.00" Weight: 247lbs. 7.0oz. 112.391206as; 36.00 BMI Method:Stated General Appearance: WD/WN, mild distress HEENT: PERRL/EOMI, normal ENT inspection Neck: normal inspection Cardiovascular: regular rate, rhythm, no edema, no murmur Respiratory: lungs clear, normal breath sounds, no respiratory distress Gastrointestinal: non tender, soft Hips: right hip bone tenderness, right hip limited range of motion, right hip pain, right hip other (Tenderness over the hip joint and lateral hip as well as pain with rotation of the hip. Distal exam unremarkable) Legs: right leg non-tender, right leg normal inspection, right leg normal range of motion, right leg no evidence of injury, right leg swelling Knees: right knee non-tender, right knee normal inspection, right knee normal range of motion, right knee no evidence of injury, right knee soft tissue tenderness (Behind the knee) Ankles: right ankle non-tender, right ankle normal inspection, right ankle normal range of motion, right ankle no evidence of injury Feet: right foot non-tender, right foot normal inspection, right foot normal range of motion, right foot no evidence of injury, right foot swelling Neurologic/Tendon: normal sensation, normal motor functions Neurologic/Psychiatric: no motor/sensory deficits, alert, normal mood/affect, oriented x 3 Skin: normal color, warm/dry Procedures/Interventions Date of ETT Placement: Dec 31, 2020 Time of ETT Placement: 1600 Progress/Results/Core Measures Results/Orders My Orders Orders - LEE CARDENAS MD Fentanyl Inj (Sublimaze Injection) (03/31/21 20:45) Pelvis With Right Hip 2-3views (03/31/21 20:40) Oxycodone/Apap 5/325mg Tablet (Percocet (03/31/21 21:45) Rx-Oxycodone/Apap 5-325 Mg (Rx-Percocet (03/31/21 21:45) Medications Given in ED Current Medications Medications Dose Ordered Sig/Brissa Route Start Time Stop Time Status Last Admin Dose Admin Fentanyl Citrate 75 mcg ONCE ONCE IM 03/31/21 20:45 03/31/21 20:46 DC 03/31/21 20:45 75 MCG Oxycodone/ Acetaminophen 1 ea Q4H PRN PO 03/31/21 21:45 03/31/21 22:02 DC 03/31/21 21:54 1 EA Oxycodone/ Acetaminophen 2 tab ONCE ONCE PO 03/31/21 21:45 03/31/21 21:46 DC 03/31/21 21:54 2 TAB Vital Signs/I&O 03/31/21 03/31/21 20:28 21:58 Temp 36.0 Pulse 97 95 Resp 20 20 B/P (MAP) 143/87 (105) 132/84 Pulse Ox 99 100 O2 Delivery Nasal Cannula Nasal Cannula O2 Flow Rate 2.00 2.00 Blood Pressure Mean: 105 Progress Progress Note : Progress Note Patient received fentanyl prior to his x-rays. He stated this did not improve his pain at all. X-rays were unremarkable. Patient was offered Percocet. He took the dose here and the take-home dose but declined the prescription. Patient implied that he was desiring admission, but he does not meet admission criteria. Diagnostic Imaging Diagonstic Imaging: Xray Plain Films/CT/US/NM/MRI: pelvis, hip Comments X-rays viewed by me and report reviewed. See report below: NAME: DAREN BARRIOS [facility] REC#: [id number] PT STATUS: REG ER : 1960 PHYSICIAN: LEE CARDENAS MD ADMIT DATE: 03/31/21/ER Signed Date of Exam:03/31/21 PELVIS WITH RIGHT HIP 2-3VIEWS EXAMINATION: Pelvis and right hip radiographs. EXAM DATE: 03/31/2021. COMPARISON: 02/16/2012. HISTORY: Right hip pain. TECHNIQUE: 3 views of the pelvis and right hip. FINDINGS: There is no acute fracture, dislocation, or destructive osseous process. The joint spaces are normal. The soft tissues are normal. IMPRESSION: No acute osseous abnormality of the pelvis or right hip. Dictated by: Dictated on workstation # [id number] Dict: 03/31/212102 Trans: 03/31/212125 PJE [id number] Interpreted by: RUPA MURRELL DO Electronically signed by: RUPA MURRELL DO 03/31/212125 Departure Impression Primary Impression: Right hip pain Additional Impression: Synovial cyst of popliteal space [Prakash], right knee Disposition: 01 HOME, SELF-CARE Condition: Stable Departure-Patient Inst. Decision time for Depature: 21:42 Referrals: KATE CORONADO MD (PCP/Family) Primary Care Physician MIRACLE HERRON MD, TERRY D MD ZAFUTA, MICHAEL P MD Patient Instructions: Prakash's Cyst, Hip Pain ED Add. Discharge Instructions: For moderate pain you may use hydrocodone as previously prescribed. For more intense pain you may take Percocet as prescribed from the ER tonight. Do not exceed more than 2 tablets of either Percocet or hydrocodone in a 4-hour period of time. Use your walker to ambulate to help take pressure off of your knee and hip. Follow-up with an orthopedic provider soon as possible. Contact information for local orthopedic doctors is listed below for your convenience. Follow-up with your primary care provider soon as possible. Icing your knee in 20-minute intervals may help reduce pain and swelling. Elevating your foot and lower leg slightly above the level of your heart with pillows, cushions, etc. may be helpful. Call with questions or concerns. Return to care if you have worsening symptoms. If you need to return to the ER at any time in the future, please be sure you take your walker and portable oxygen if available for the return trip home. All discharge instructions reviewed with patient and/or family. Voiced understanding. Copy Copies To 1: KATE CORONADO MD, JOSHUA T MD Mar 31, 2021 21:47
[2021-03-31 21:58] VITALS: BP 132/84
== END 2021-03-31 21:58 | disposition home or self-care (01) ==
LOC: EDUNIT# 20:28 → ER 20:30
DX: M71.21 Synovial cyst of popliteal space [Baker], right knee (principal); M25.551 Pain in right hip; I10 Essential (primary) hypertension; E11.40 Type 2 diabetes mellitus with diabetic neuropathy, unspecified; I25.10 Atherosclerotic heart disease of native coronary artery without angina pectoris; J45.909 Unspecified asthma, uncomplicated; E78.00 Pure hypercholesterolemia, unspecified; K21.9 Gastro-esophageal reflux disease without esophagitis; F41.9 Anxiety disorder, unspecified; G47.30 Sleep apnea, unspecified; Z95.5 Presence of coronary angioplasty implant and graft; Z99.89 Dependence on other enabling machines and devices; Z79.84 Long term (current) use of oral hypoglycemic drugs; Z79.51 Long term (current) use of inhaled steroids; Z79.4 Long term (current) use of insulin; Z79.899 Other long term (current) drug therapy

== ENCOUNTER 2021-04-21 12:38 | Emergency (ER) | payer MEDICARE, MEDICAID ==
[~2021-04-21] VITALS: Ht 175.3 cm; Wt 112.0 kg
--- NOTE | 2021-04-21 13:00 | ED Chest Pain ---
General Chief Complaint: General Problems/Pain Stated Complaint: CHEST PAIN Nursing Triage Note: PT BROUGHT IN BY [facility] FROM HOME WITH COMPLAINT OF BILATERAL ARM PAIN AND NOT FEELING WELL. 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 He is being worked up outpatient and saw his card fixer Dr. Ortega 2 days ago for clearance to do surgery and was told just to hold the Xarelto 5 days prior and he could undergo surgery. He has a history of coronary disease with a couple stents. He is diabetic with a monitor and states that his blood sugars have been okay 90- 120 in the past couple days. No fevers chills sweats cough shortness of air. He does have a runny nose. He was vaccinated for COVID-19 but cannot take flu vaccine. He has chronic loose stools that he relates to his Metformin. EMS did not give aspirin as he has an allergy to this. They did an EKG which was normal. They state he appears to be his normal self when they see him. He says he had a little anxiety attack because his blood pressure was high earlier and ended up taking Ativan about an hour prior to arrival. Lives at home alone. His mother used to be his caregiver but she . He is supposed to be getting in-home health care set up through his primary care at [facility]. Allergies and Home Medications Allergies Coded Allergies: aspirin (Verified Allergy, Severe, 12/10/17) egg (Verified Allergy, Intermediate, Vomiting, 03/21/20) Penicillins (Unverified Allergy, Unknown, 07/19/13) Sulfa (Sulfonamide Antibiotics) (Unverified Allergy, Unknown, 07/19/13) lidocaine (Verified Allergy, Unknown, 01/06/16) peanut (Unverified Allergy, Unknown, air closes off, 07/19/13) strawberry (Unverified Allergy, Unknown, airway closes off, 07/19/13) codeine (Unverified Adverse Reaction, Mild, NAUSEA, 02/03/14) Uncoded Allergies: ENVIRONMENTAL (Allergy, Unknown, 07/19/13) raw egg whites (Adverse Reaction, Unknown, upset stomach, 12/09/17) Patient Home Medication List Home Medication List Reviewed: Yes Albuterol Sulfate (Albuterol Sulfate) 2.5 Mg/3 Ml Vial.neb, 2.5 MG INH Q4H PRN for WHEEZING Prescribed by: BREONNA NICHOLS on 03/15/212011 Amlodipine Besylate (Amlodipine Besylate) 10 Mg Tablet, 10 MG PO DAILY, (Reported) Entered as Reported by: DEDRICK CARPENTER on 02/04/19 0837 Atorvastatin Calcium (Lipitor) 40 Mg Tablet, 40 MG PO HS, (Reported) Entered as Reported by: DEDRICK CARPENTER on 02/04/19 0837 Cefuroxime Axetil (Cefuroxime) 250 Mg Tablet, 250 MG PO BID Prescribed by: BREONNA NICHOLS on 03/15/212010 Clopidogrel Bisulfate (Plavix) 75 Mg Tablet, 75 MG PO DAILY, (Reported) Entered as Reported by: DEDRICK CARPENTER on 01/03/21 1057 Cyclobenzaprine HCl (Cyclobenzaprine HCl) 5 Mg Tablet, 5 MG PO TID PRN for MUSCLE CRAMPS, (Reported) Entered as Reported by: DEDRICK CARPENTER on 12/23/20 1515 Diclofenac Sodium (Diclofenac Sodium) 100 Gm Gel..gram., 2 GM TOP QID PRN for PAIN-MODERATE (5-7) Prescribed by: REZA ADAMS on 01/09/21 1141 Duloxetine HCl (Duloxetine HCl) 60 Mg Capsule.dr, 60 MG PO 0900,1700, (Reported) Entered as Reported by: BILL CARIAS on 03/21/20 1545 Epinephrine (Epipen 2-Kobe) 0.3 Mg/0.3 Ml Auto.injct, 0.3 MG IJ PRN PRN for allergic reaction Prescribed by: REZA ADAMS on 01/09/21 1141 Furosemide (Furosemide) 40 Mg Tablet, 40 MG PO DAILY, (Reported) Entered as Reported by: DEDRICK CARPENTER on 05/24/20 1028 Insulin Aspart (Novolog Flexpen) 300 Units/3 Ml Solution, 5 UNITS SQ TID, (Reported) Entered as Reported by: DEDRICK CARPENTER on 12/23/20 1515 Insulin Detemir (Levemir Flextouch) 100 Unit/1 Ml Insuln.pen, 15 UNIT SQ HS, (Reported) Entered as Reported by: DEDRICK CARPENTER on 02/04/19 0910 Isosorbide Mononitrate (Isosorbide Mononitrate ER) 30 Mg Tab.er.24h, 30 MG PO DAILY, (Reported) Entered as Reported by: DEDRICK CARPENTER on 01/03/21 1057 Losartan Potassium (Losartan Potassium) 100 Mg Tablet, 100 MG PO DAILY, (Reported) Entered as Reported by: DEDRICK CARPENTER on 11/11/19 1648 Magnesium Oxide (Mag-Oxide) 200 Mg Tablet, 200 MG PO TID Prescribed by: BELTRAN KAT on 01/22/21 2142 Metoprolol Succinate (Metoprolol Succinate) 100 Mg Tab.er.24h, 100 MG PO DAILY, (Reported) Entered as Reported by: DEDRICK CARPENTER on 01/03/21 1057 Mupirocin (Mupirocin) 22 Gm Oint...g., 1 APPLIC TP BID, (Reported) Entered as Reported by: DEDRICK CARPENTER on 12/23/20 1515 Nitroglycerin (Nitroglycerin) 0.4 Mg Tab.subl, 0.4 MG SL UD PRN for CHEST PAIN, (Reported) Entered as Reported by: DEDRICK CARPENTER on 01/03/21 1057 Pantoprazole Sodium (Pantoprazole Sodium) 40 Mg Tablet.dr, 40 MG PO DAILY Prescribed by: REZA ADAMS on 01/09/21 1141 Potassium Chloride (Potassium Chloride) 10 Meq Tab.er.prt, 10 MEQ PO DAILY, (Reported) Entered as Reported by: BILL CARIAS on 03/21/20 1545 Prednisone (Prednisone) 20 Mg Tab, 40 MG PO DAILY Prescribed by: BREONNA NICHOLS on 03/15/212010 Rivaroxaban (Xarelto Tablet) 15 Mg Tablet, 15 MG PO DAILY@1700, (Reported) Entered as Reported by: DEDRICK CARPENTER on 01/03/21 105 Sitagliptin Phos/Metformin HCl (Janumet 50-1,000 mg Tablet) 1 Each Tablet, 1 EACH PO 0900,1700, (Reported) Entered as Reported by: DEDRICK CARPENTER on 02/04/19 0822 Tobramycin/Dexamethasone (Tobradex Eye Ointment) 3.5 Gm Oint, 1 APPLIC OP TID, (Reported) Entered as Reported by: DEDRICK CARPENTER on 12/23/20 3875 Review of Systems Review of Systems Constitutional: No chills, No fever; malaise, weakness EENTM: No Blurred Vision, No Double Vision Respiratory: Denies Cough, Denies Shortness of Air Cardiovascular: Chest Pain; Denies Edema, Denies Irregular Heart Rate, Denies Lightheadedness Gastrointestinal: See HPI; Denies Abdominal Pain, Denies Constipated, Denies Diarrhea Genitourinary: Denies Burning, Denies Discharge Musculoskeletal: No back pain, No joint pain Skin: No pruritus, No rash All Other Systems Reviewed Negative Unless Noted: Yes Past Obscxev-Cvbdht-Dbkrrs Hx Patient Social History Tobacco Use?: No Use of E-Cig and/or Vaping dev: No Substance use?: No Alcohol Use?: No Pt feels they are or have been: No Immunizations Up To Date Tetanus Booster (TDap): Unknown First/Initial COVID19 Vaccinat: AUGUST Second COVID19 Vaccination Jose: September COVID19 Vaccination Date: FEB Seasonal Allergies Seasonal Allergies: Yes Past Medical History Surgery/Hospitalization HX: 12/29 HEART CATH WITH STENTS. PREVIOUS STENTS PLACED SUDDEN CARDIAC ARREST 12/2020 Surgeries: Yes (CARPAL TUNNEL RELASE SX, LEFT HAND SURGERY, L FOOT, EGD/COLONOSCOPY) Cardiac, Coronary Stent, Gallbladder, Orthopedic, Tonsillectomy Respiratory: Yes (RLL PUL. NODULE--FOLLOWED EVERY 6 MONTHS;INTUBATED 2017/PULM EDEMA/ARF ) Asthma, Sleep Apnea Currently Using CPAP: Yes Currently Using BIPAP: Yes Cardiac: Yes (CAD--STENTS X 2; MR/TR, history of cardiopulmonary arrest) Coronary Artery Disease, High Cholesterol, Hypertension, Irregular Heartbeat, Valvular Heart Disease Neurological: Yes Neuropathy Reproductive Disorders: No Sexually Transmitted Disease: No Genitourinary: No Gastrointestinal: Yes Gastroesophageal Reflux, Polyps, Hiatal Hernia, Ulcer Musculoskeletal: Yes (BILAT CARPAL TUNNEL SURG;L HAND SURG; L FOOT SURG) Arthritis Endocrine: Yes Diabetes, Insulin dep HEENT: No Loss of Vision: Denies Hearing Impairment: Denies Cancer: No Psychosocial: Yes Anxiety Integumentary: Yes Psoriasis Blood Disorders: No Adverse Reaction/Blood Tranf: No Family Medical History Congestive heart failure 19 MOTHER Family history: Arthritis 19 FATHER 19 MOTHER Family history: Cardiovascular disease 19 FATHER 19 MOTHER Family history: Diabetes mellitus 19 FATHER Family history: Glaucoma 19 MOTHER Family history: Hypertension 19 FATHER 19 MOTHER Family history: Osteoporosis 19 MOTHER Hearing loss 19 MOTHER Heart disease 19 FATHER 19 MOTHER Myocardial infarction 19 FATHER 19 MOTHER (DBL BYPASS) Stroke 19 MOTHER (MICRO STROKES) No Family History of: Abdominal aortic aneurysm Dawson's disease Alcoholism Aphasia Cancer Cancer of colon Cataract Chest pain Congenital heart disease Cystic fibrosis Dementia Dysphagia Family history: Allergy Family history: Alzheimer's disease Family history: Asthma Family history: Breast disease Family history: Coronary thrombosis Family history: Gastrointestinal disease Family history: Thyroid disorder Headache Hereditary disease History of - anemia History of - disorder History of - respiratory disease History of drug abuse Human immunodeficiency virus (HIV) seropositivity Hypercholesterolemia Infertile Kidney disease Malignant neoplasm of lung Parkinson's disease Prostate cancer Psychotic disorder Seizure disorder Tuberculosis Visual impairment Heart Disease, Diabetes, Hypertension PAST SURGICAL HISTORY: -CARDIAC CATHS--STENTS X 2 IN 2018. LAST CATH 02/04/19--NO INTERVENTION. HAD PATENT STENT TO LEFT CIRCUMFLEX, WITH COMPLETE OCCLUSION OF LEFT PDA; PATENT STENT TO RCA; MILD DISEASE IN OTHER VESSELS -APPENDECTOMY -EGD'S AND COLONOSCOPIES WITH POLYPECTOMY -BILATERAL CARPAL TUNNEL SURGERY -LEFT HAND SURGERY -LEFT FOOT SURGERY Physical Exam Vital Signs Vital Signs - First Documented 04/21/21 12:38 Pulse 112 Resp 15 B/P (MAP) 139/71 (93) Pulse Ox 97 O2 Delivery Room Air Capillary Refill : Height, Weight, BMI Height: 5'9.00" Weight: 247lbs. 7.0oz. 112.198215su; 36.00 BMI Method:Stated General Appearance: Anxious, Chronically ill, Obese HEENT: PERRL/EOMI, Pharynx Normal, Moist Mucous Membranes Neck: Full Range of Motion, Normal Inspection Respiratory: Lungs Clear, Normal Breath Sounds, No Accessory Muscle Use, No Respiratory Distress Cardiovascular: Regular Rate, Rhythm, No Edema, Normal Peripheral Pulses, Tachycardia (110) Gastrointestinal: Normal Bowel Sounds, Non Tender, Soft Extremity: Normal Capillary Refill, Normal Inspection, Pedal Edema (Trace bipedal), Other (Abrasions bilateral feet minor, healing) Neurologic/Psychiatric: Alert, Oriented x3 Skin: Normal Color, Warm/Dry Procedures/Interventions Date of ETT Placement: Dec 31, 2020 Time of ETT Placement: 1600 Progress/Results/Core Measures Results/Orders Lab Results Laboratory Tests Test 04/21/21 12:43 04/21/21 13:09 04/21/21 13:22 04/21/21 13:36 Range/Units Glucometer 93 70-110 MG/DL Influenza Type A (RT-PCR) Not Detected Not Detecte Influenza Type B (RT-PCR) Not Detected Not Detecte SARS-CoV-2 RNA (RT-PCR) Not Detected Not Detecte White Blood Count 8.2 4.3-11.0 10^3/uL Red Blood Count 3.96 L 4.30-5.52 10^6/uL Hemoglobin 10.5 L 13.3-17.7 g/dL Hematocrit 34 L 40-54 % Mean Corpuscular Volume 85 80-99 fL Mean Corpuscular Hemoglobin 27 25-34 pg Mean Corpuscular Hemoglobin Concent 31 L 32-36 g/dL Red Cell Distribution Width 16.9 H 10.0-14.5 % Platelet Count 449 H 130-400 10^3/uL Mean Platelet Volume 8.6 L 9.0-12.2 fL Immature Granulocyte % (Auto) 1 % Neutrophils (%) (Auto) 72 42-75 % Lymphocytes (%) (Auto) 17 12-44 % Monocytes (%) (Auto) 8 0-12 % Eosinophils (%) (Auto) 3 0-10 % Basophils (%) (Auto) 1 0-10 % Neutrophils # (Auto) 5.9 1.8-7.8 10^3/uL Lymphocytes # (Auto) 1.4 1.0-4.0 10^3/uL Monocytes # (Auto) 0.6 0.0-1.0 10^3/uL Eosinophils # (Auto) 0.2 0.0-0.3 10^3/uL Basophils # (Auto) 0.0 0.0-0.1 10^3/uL Immature Granulocyte # (Auto) 0.0 0.0-0.1 10^3/uL Sodium Level 138 135-145 MMOL/L Potassium Level 4.1 3.6-5.0 MMOL/L Chloride Level 108 H 98-107 MMOL/L Carbon Dioxide Level 20 L 21-32 MMOL/L Anion Gap 10 5-14 MMOL/L Blood Urea Nitrogen 15 7-18 MG/DL Creatinine 1.06 0.60-1.30 MG/DL Estimat Glomerular Filtration Rate 80 BUN/Creatinine Ratio 14 Glucose Level 89 70-105 MG/DL Calcium Level 8.7 8.5-10.1 MG/DL Corrected Calcium 9.7 8.5-10.1 MG/DL Total Bilirubin 0.2 0.1-1.0 MG/DL Aspartate Amino Transf (AST/SGOT) 21 5-34 U/L Alanine Aminotransferase (ALT/SGPT) 14 0-55 U/L Alkaline Phosphatase 162 H 40-136 U/L Total Creatine Kinase 47 30-200 U/L Troponin I < 0.028 <0.028 NG/ML C-Reactive Protein High Sensitivity 0.15 0.00-0.50 MG/DL Total Protein 6.5 6.4-8.2 GM/DL Albumin 2.8 L 3.2-4.5 GM/DL Blood Gas Puncture Site RIGHT RADIAL Blood Gas Patient Temperature 37 Arterial Blood pH 7.41 7.37-7.43 Arterial Blood Partial Pressure CO2 40 35-45 MMHG Arterial Blood Partial Pressure O2 71 L 79-93 MMHG Arterial Blood HCO3 25 23-27 MMOL/L Arterial Blood Total CO2 25.7 21.0-31.0 MMOL/L Arterial Blood Oxygen Saturation 93 L 94-100 % Arterial Blood Base Excess 0.3 -2.5-2.5 MMOL/L Kush Test POSITIVE Blood Gas Ventilator Setting NO Blood Gas Inspired Oxygen 2 Test 04/21/21 15:38 Range/Units Troponin I < 0.028 <0.028 NG/ML My Orders Orders - LORETTA ESQUIVEL Arterial Blood Gas (04/21/21 12:50) Cbc With Automated Diff (04/21/21 12:50) Comprehensive Metabolic Panel (04/21/21 12:50) Hs C Reactive Protein (04/21/21 12:50) Troponin I [place] (04/21/21 12:50) Ekg Tracing (04/21/21 12:50) Continuous Ekg Monitoring (04/21/21 12:50) Chest 1 View, Ap/Pa Only (04/21/21 12:50) Influenza A And B By Pcr (04/21/21 12:50) Covid 19 Inhouse Test (04/21/21 12:50) Creatine Kinase (04/21/21 12:50) Ua Culture If Indicated (04/21/21 12:50) Troponin I [place] (04/21/21 15:24) Vital Signs/I&O 04/21/21 12:38 Pulse 112 Resp 15 B/P (MAP) 139/71 (93) Pulse Ox 97 O2 Delivery Room Air Blood Pressure Mean: 93 Progress Progress Note #1: Time: 13:00 Progress Note An ABG will help us differentiate between hypoxemia or anxiety attack. We will check Covid and influenza since he has a runny nose and body aches. EKG troponin some basic labs. He cannot take aspirin due to an allergy. Progress Note #2: Time: 15:05 Progress Note The patient continues to have nonlabored breathing. His oxygen saturations are 99 to 100% on room air. He has mild hypoxemia on ABG which is chronic for him. He states he uses his oxygen whenever he feels he needs it but does not feel he needs it right now. He is complaining that his pain in his shoulder came back so we offered him the nitroglycerin again which he declined. Offered him Tylenol which he declined. Progress Note #3: Time: 16:39 Progress Note Patient's vital signs are aseptic and normal, heart rates in the low 90s upper 80s. Still afebrile. Discussed his dosing of Tylenol. May be masking a fever he may have a viral syndrome. Suspect that the symptoms will improve in a few days. Discussed with him pushing food fluids Voltaren hot baths hot blankets hot tea with honey and follow-up with his primary care doctor next week if his symptoms persist. Discussed return precautions and he is ready to go home Initial ECG Impression Date: Apr 21, 2021 Initial ECG Impression Time: 13:09 Initial ECG Rate: 106 Initial ECG Rhythm: S.Tach Initial ECG Intervals: Normal Initial ECG Impression: Normal Initial ECG Comparisson: No Previous ECG Available Comment Sinus tachycardia without clinically relevant ST elevation or depression. Diagnostic Imaging Diagonstic Imaging: Xray Plain Films/CT/US/NM/MRI: chest Comments [facility] [place] NAME: DAREN BARRIOS [place] REC#: [id number] PT STATUS: REG ER : 1960 PHYSICIAN: LORETTA ESQUIVEL MD ADMIT DATE: 04/21/21/ER Draft Date of Exam:04/21/21 CHEST 1 VIEW, AP/PA ONLY INDICATION: Chest pain. TIME OF EXAM: 02:35 p.m. COMPARISON: Correlation is made with prior chest from 03/15/2021. FINDINGS: The heart is mildly enlarged. Lungs are clear. No infiltrates or failure are identified. There is no effusion or pneumothorax. IMPRESSION: No acute cardiopulmonary process is detected. Dictated on workstation # [id number] Dict: 04/21/21 1452 Trans: 04/21/21 1456 [id number] Interpreted by: SHRADDHA ROBERTS MD Electronically signed by: Reviewed: Reviewed by Me Departure Impression Primary Impression: Viral syndrome Additional Impression: Viral labyrinthitis syndrome Qualified Codes: H83.01 - Labyrinthitis, right ear; B97.89 - Other viral agents as the cause of diseases classified elsewhere Disposition: HOME, SELF-CARE Condition: Stable Departure-Patient Inst. Decision time for Depature: 16:41 Referrals: KATE CORONADO MD (PCP/Family) Primary Care Physician Patient Instructions: Viral Syndrome (DC) Add. 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 Hot blankets, hot baths, hot tea with honey, comfort food. Expect you will feel better in a few days. If you are not feeling better next week then follow-up with your primary care doctor for recheck. If you are getting significantly worse, intractable pain or other worrisome symptoms then return to the ER for reexamination and help with symptom management. Tylenol 1000 mg every 8 hours as necessary for pain body aches and pain. All discharge instructions reviewed with patient and/or family. Voiced understanding. LORETTA ESQUIVEL Apr 21, 2021 13:00
[2021-04-21 13:27] LABS: BASOPHILS % (AUTO) 1 % (0-10); EOSINOPHILS # (AUTO) 0.2 10^3/uL (0.0-0.3); EOSINOPHILS % (AUTO) 3 % (0-10); HEMATOCRIT 34 % (40-54); HEMOGLOBIN 10.5 g/dL (13.3-17.7); LYMPHOCYTES # (AUTO) 1.4 10^3/uL (1.0-4.0); LYMPHOCYTES % (AUTO) 17 % (12-44); MEAN CORPUSCULAR HEMOGLOBIN 27 pg (25-34); MEAN CORPUSCULAR HGB CONC 31 g/dL (32-36); MEAN CORPUSCULAR VOLUME 85 fL (80-99); MEAN PLATELET VOLUME 8.6 fL (9.0-12.2); MONOCYTES # (AUTO) 0.6 10^3/uL (0.0-1.0); MONOCYTES % (AUTO) 8 % (0-12); NEUTROPHILS # (AUTO) 5.9 10^3/uL (1.8-7.8); NEUTROPHILS % (AUTO) 72 % (42-75); PLATELET COUNT 449 10^3/uL (130-400); WHITE BLOOD COUNT 8.2 10^3/uL (4.3-11.0)
[2021-04-21 13:41] LABS: ABG BASE EXCESS 0.3 MMOL/L (-2.5-2.5); ABG OXYGEN SATURATION 93 % (94-100); ABG PCO2 40 MMHG (35-45); ABG PH 7.41 (7.37-7.43); ABG PO2 71 MMHG (79-93); ABG TCO2 25.7 MMOL/L (21.0-31.0)
[2021-04-21 13:43] LABS: ALBUMIN 2.8 GM/DL (3.2-4.5); CHLORIDE 108 MMOL/L (98-107); POTASSIUM 4.1 MMOL/L (3.6-5.0); SODIUM 138 MMOL/L (135-145)
[2021-04-21 13:44] LABS: CALCIUM 8.7 MG/DL (8.5-10.1)
[2021-04-21 13:46] LABS: GLUCOSE 89 MG/DL (70-105); TOTAL PROTEIN 6.5 GM/DL (6.4-8.2)
[2021-04-21 13:46] LABS: ALLENS TEST POSITIVE; INSPIRED O2 2; PATIENT TEMP 37; VENTILATOR NO
[2021-04-21 13:47] LABS: BILIRUBIN,TOTAL 0.2 MG/DL (0.1-1.0); CARBON DIOXIDE 20 MMOL/L (21-32)
[2021-04-21 13:49] LABS: ALKALINE PHOSPHATASE 162 U/L (40-136); CREATININE SERUM 1.06 MG/DL (0.60-1.30); GFR ESTIMATED 80
[2021-04-21 13:51] LABS: BUN/CREATININE RATIO 14
[2021-04-21 13:52] LABS: ALANINE AMINOTRANSFERASE 14 U/L (0-55); CREATINE KINASE 47 U/L (30-200)
--- NOTE | 2021-04-21 14:56 | Diagnostic Imaging Report ---
INDICATION: Chest pain. TIME OF EXAM: 02:35 p.m. COMPARISON: Correlation is made with prior chest from 03/15/2021. FINDINGS: The heart is mildly enlarged. Lungs are clear. No infiltrates or failure are identified. There is no effusion or pneumothorax. IMPRESSION: No acute cardiopulmonary process is detected. Dictated by: Dictated on workstation # [id number]
[2021-04-21 16:57] VITALS: BP 125/89
== END 2021-04-21 16:57 | disposition home or self-care (01) ==
LOC: ER 12:38 → EDUNIT# 12:38 → ER 16:57
DX: B34.9 Viral infection, unspecified (principal); H83.2X9 Labyrinthine dysfunction, unspecified ear; E66.9 Obesity, unspecified; E11.9 Type 2 diabetes mellitus without complications; Z20.822 Contact with and (suspected) exposure to COVID-19; Z68.36 Body mass index [BMI] 36.0-36.9, adult; Z79.84 Long term (current) use of oral hypoglycemic drugs
CPT/HCPCS: 36415; 71045; 80053; 82550; 82805; 82947; 84484; 85025; 86141; 87636; 93005

== ENCOUNTER 2021-05-29 20:24 | Inpatient (IN) | payer MEDICARE, MEDICAID ==
[~2021-05-29] VITALS: Ht 175.3 cm; Wt 107.7 kg
[2021-05-29] MEDS ORDERED: NS IV 1000 ML 1,000 ML IV SCH (20:30)
--- NOTE | 2021-05-29 20:37 | ED Respiratory ---
General Chief Complaint: Respiratory Problems Stated Complaint: SOB Source: patient (LIMITED HISTORIAN), EMS, old records History of Present Illness Date Seen by Provider: May 29, 2021 Time Seen by Provider: 20:25 Initial Comments PT ARRIVES VIA EMS FROM HOME--PT LIVES ALONE C/O SHORTNESS OF BREATH --ONGOING ALL DAY PT IS SUPPOSED TO BE ON O2 AT 2 L/NC CONTINOUSLY, BUT PT DOES NOT WEAR IT DURING THE DAY, AND WAS NOT WEARING IT ALL DAY O2 SAT 88% ON 2 1/2 L/NC --PT PUT O2 ON WHEN HE CALLED EMS PT ALSO HAS HOME NEBULIZER TREATMENTS AT HOME BUT NEVER USES THEM--STATES "THEY MAKE EVERYTHING TASTE SALTY AFTERWARDS AND I DON'T LIKE IT" --HAS NOT USED NEBULIZER AT ANY TIME TODAY AND DOES NOT USE INHALERS EITHER PT WITH DUO NEB TREATMENT BEGAN BY EMS ENROUTE AND CONTINUES ON ARRIVAL PT STATES HE DID HAVE SOME CHEST PAIN ON THE WAY HERE IN THE AMBULANCE, BUT HAD NOT BEEN HAVING CHEST PAIN AT ANY TIME UNTIL THEN. 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 HAS AN APPOINTMENT THIS WEEK FOR THAT PROBLEM EMS IS VERY FAMILIAR WITH PATIENT, PT CALLS THEM FREQUENTLY FOR VARIOUS COMPLAINTS, THEN MANY TIMES REFUSES TRANSPORT--MOST RECENTLY THIS WAS ON . PT HAD REPORTED TO THEM THAT HE HAD RECEIVED A CALL FROM [facility] ON SATURDAY ADVISING HIM THAT HE WAS ABUSING THE AMBULANCE SERVICE. PT IS ALSO DIABETIC--ACCUCHECK 138 FOR EMS PT HAS DEXCON CONTINUOUS GLUCOSE MONITOR, AND HAS BEEN IN 150'S ALL DAY TODAY PT HAS HISTORY OF CAD WITH STENTS X 3 AND HISTORY OF CARDIOPULMONARY ARREST 12/[address] CORONADO ABOUT 3 WEEKS AGO FOR ROUTINE APPOINTMENT. NO CHANGES IN MEDICATIONS DENIES ANY MISSED DOSES OF MEDICATIONS PT HAS HAD COVID-19 VACCINE X 3 NO FLU VACCINE DUE TO EGG ALLERGY PCP: DR. CORONADO AT [facility] PRODUCER: DR. KNIGHT Allergies and Home Medications Allergies Coded Allergies: aspirin (Verified Allergy, Severe, 12/10/17) egg (Verified Allergy, Intermediate, Vomiting, 03/21/20) Penicillins (Unverified Allergy, Unknown, 07/19/13) Sulfa (Sulfonamide Antibiotics) (Unverified Allergy, Unknown, 07/19/13) lidocaine (Verified Allergy, Unknown, 01/06/16) peanut (Unverified Allergy, Unknown, air closes off, 07/19/13) strawberry (Unverified Allergy, Unknown, airway closes off, 07/19/13) codeine (Unverified Adverse Reaction, Mild, NAUSEA, 02/03/14) Uncoded Allergies: ENVIRONMENTAL (Allergy, Unknown, 07/19/13) raw egg whites (Adverse Reaction, Unknown, upset stomach, 12/09/17) Patient Home Medication List Albuterol Sulfate (Albuterol Sulfate) 2.5 Mg/3 Ml Vial.neb, 2.5 MG INH Q4H PRN for WHEEZING Prescribed by: BREONNA NICHOLS on 03/15/212011 Amlodipine Besylate (Amlodipine Besylate) 10 Mg Tablet, 10 MG PO DAILY, (Reported) Entered as Reported by: DEDRICK CARPENTER on 02/04/19 0837 Atorvastatin Calcium (Lipitor) 40 Mg Tablet, 40 MG PO HS, (Reported) Entered as Reported by: DEDRICK CARPENTER on 02/04/19 0837 Cefuroxime Axetil (Cefuroxime) 250 Mg Tablet, 250 MG PO BID Prescribed by: BREONNA NICHOLS on 03/15/212010 Clopidogrel Bisulfate (Plavix) 75 Mg Tablet, 75 MG PO DAILY, (Reported) Entered as Reported by: DEDRICK CARPENTER on 01/03/21 1057 Cyclobenzaprine HCl (Cyclobenzaprine HCl) 5 Mg Tablet, 5 MG PO TID PRN for MUSCLE CRAMPS, (Reported) Entered as Reported by: DEDRICK CARPENTER on 12/23/20 1515 Diclofenac Sodium (Diclofenac Sodium) 100 Gm Gel..gram., 2 GM TOP QID PRN for PAIN-MODERATE (5-7) Prescribed by: REZA ADAMS on 01/09/21 1141 Duloxetine HCl (Duloxetine HCl) 60 Mg Capsule.dr, 60 MG PO 0900,1700, (Reported) Entered as Reported by: BILL CARIAS on 03/21/20 1545 Epinephrine (Epipen 2-Kobe) 0.3 Mg/0.3 Ml Auto.injct, 0.3 MG IJ PRN PRN for allergic reaction Prescribed by: REZA ADAMS on 01/09/21 1141 Furosemide (Furosemide) 40 Mg Tablet, 40 MG PO DAILY, (Reported) Entered as Reported by: DEDRICK CARPENTER on 05/24/20 1028 Insulin Aspart (Novolog Flexpen) 300 Units/3 Ml Solution, 5 UNITS SQ TID, (Reported) Entered as Reported by: DEDRICK CARPENTER on 12/23/20 1515 Insulin Detemir (Levemir Flextouch) 100 Unit/1 Ml Insuln.pen, 15 UNIT SQ HS, (Reported) Entered as Reported by: DEDRICK CARPENTER on 02/04/19 0910 Isosorbide Mononitrate (Isosorbide Mononitrate ER) 30 Mg Tab.er.24h, 30 MG PO DAILY, (Reported) Entered as Reported by: DEDRICK CARPENTER on 01/03/21 1057 Losartan Potassium (Losartan Potassium) 100 Mg Tablet, 100 MG PO DAILY, (Reported) Entered as Reported by: DEDRICK CARPENTER on 11/11/19 1648 Magnesium Oxide (Mag-Oxide) 200 Mg Tablet, 200 MG PO TID Prescribed by: BELTRAN KAT on 01/22/21 2142 Metoprolol Succinate (Metoprolol Succinate) 100 Mg Tab.er.24h, 100 MG PO DAILY, (Reported) Entered as Reported by: DEDRICK CARPENTER on 01/03/21 1057 Mupirocin (Mupirocin) 22 Gm Oint...g., 1 APPLIC TP BID, (Reported) Entered as Reported by: DEDRICK CARPENTER on 12/23/20 1515 Nitroglycerin (Nitroglycerin) 0.4 Mg Tab.subl, 0.4 MG SL UD PRN for CHEST PAIN, (Reported) Entered as Reported by: DEDRICK CARPENTER on 01/03/21 1057 Pantoprazole Sodium (Pantoprazole Sodium) 40 Mg Tablet.dr, 40 MG PO DAILY Prescribed by: REZA ADAMS on 01/09/21 1141 Potassium Chloride (Potassium Chloride) 10 Meq Tab.er.prt, 10 MEQ PO DAILY, (Reported) Entered as Reported by: BILL CARIAS on 03/21/20 1545 Prednisone (Prednisone) 20 Mg Tab, 40 MG PO DAILY Prescribed by: BREONNA NICHOLS on 03/15/212010 Rivaroxaban (Xarelto Tablet) 15 Mg Tablet, 15 MG PO DAILY@1700, (Reported) Entered as Reported by: DEDRICK CARPENTER on 01/03/21 1057 Sitagliptin Phos/Metformin HCl (Janumet 50-1,000 mg Tablet) 1 Each Tablet, 1 EACH PO 0900,1700, (Reported) Entered as Reported by: DEDRICK CARPENTER on 02/04/19 0822 Tobramycin/Dexamethasone (Tobradex Eye Ointment) 3.5 Gm Oint, 1 APPLIC OP TID, (Reported) Entered as Reported by: DEDRICK CARPENTER on 12/23/20 1515 Review of Systems Review of Systems Constitutional: chills EENTM: no symptoms reported Respiratory: see HPI; No cough; short of breath Cardiovascular: see HPI, chest pain, edema Gastrointestinal: no symptoms reported Genitourinary: no symptoms reported Musculoskeletal: see HPI Skin: no symptoms reported Psychiatric/Neurological: No Symptoms Reported Hematologic/Lymphatic: No Symptoms Reported Immunological/Allergic: no symptoms reported Past Tjrqvfp-Zrqhou-Uprams Hx Patient Social History Tobacco Use?: No Smoking Status: Never a Smoker Substance use?: No Alcohol Use?: Yes Alcohol Frequency: Once in a while Immunizations Up To Date Tetanus Booster (TDap): Unknown First/Initial COVID19 Vaccinat: August COVID19 Vaccination Jose: September COVID19 Vaccination Date: FEB Seasonal Allergies Seasonal Allergies: Yes Past Medical History Surgery/Hospitalization HX: 12/29/20 HEART CATH WITH STENTS. PREVIOUS STENTS PLACED SUDDEN CARDIAC/RESPIRATORY ARREST 12/2020--INTUBATED Surgeries: Yes (CARPAL TUNNEL RELASE SX, LEFT HAND SURGERY, L FOOT, EGD/COLONOSCOPY) Cardiac, Coronary Stent, Gallbladder, Orthopedic, Tonsillectomy Respiratory: Yes (RLL PUL. NODULE--FOLLOWED EVERY 6 MONTHS;INTUBATED 2018/PULM EDEMA/ARF; ) Asthma, Sleep Apnea, COPD Currently Using CPAP: Yes Currently Using BIPAP: No Cardiac: Yes (CAD--STENTS X 3; MR/TR, history of cardiopulmonary arrest 12/2020) Chronic Edema/Swelling, Coronary Artery Disease, High Cholesterol, Hypertension, Irregular Heartbeat, Palpitations, Valvular Heart Disease Neurological: Yes Neuropathy Reproductive Disorders: No Sexually Transmitted Disease: No Genitourinary: No Gastrointestinal: Yes Gastroesophageal Reflux, Polyps, Hiatal Hernia, Ulcer Musculoskeletal: Yes (BILAT CARPAL TUNNEL SURG;L HAND SURG; L FOOT SURG;OSTEOMYELITIS L FOOT) Arthritis Endocrine: Yes (OBESITY) Diabetes, Insulin dep HEENT: No Loss of Vision: Denies Hearing Impairment: Denies Cancer: No Psychosocial: Yes Anxiety Integumentary: Yes Psoriasis Blood Disorders: No Adverse Reaction/Blood Tranf: No Family Medical History Congestive heart failure 19 MOTHER Family history: Arthritis 19 FATHER 19 MOTHER Family history: Cardiovascular disease 19 FATHER 19 MOTHER Family history: Diabetes mellitus 19 FATHER Family history: Glaucoma 19 MOTHER Family history: Hypertension 19 FATHER 19 MOTHER Family history: Osteoporosis 19 MOTHER Hearing loss 19 MOTHER Heart disease 19 FATHER 19 MOTHER Myocardial infarction 19 FATHER 19 MOTHER (DBL BYPASS) Stroke 19 MOTHER (MICRO STROKES) No Family History of: Abdominal aortic aneurysm Osborne's disease Alcoholism Aphasia Cancer Cancer of colon Cataract Chest pain Congenital heart disease Cystic fibrosis Dementia Dysphagia Family history: Allergy Family history: Alzheimer's disease Family history: Asthma Family history: Breast disease Family history: Coronary thrombosis Family history: Gastrointestinal disease Family history: Thyroid disorder Headache Hereditary disease History of - anemia History of - disorder History of - respiratory disease History of drug abuse Human immunodeficiency virus (HIV) seropositivity Hypercholesterolemia Infertile Kidney disease Malignant neoplasm of lung Parkinson's disease Prostate cancer Psychotic disorder Seizure disorder Tuberculosis Visual impairment Heart Disease, Diabetes, Hypertension SOCIAL HISTORY: -DENIES SMOKING, BUT PARENTS SMOKED -RARE ETOH -DENIES DRUG USE 12/29/20--CARDIOPULMONARY ARREST -PAST SURGICAL HISTORY: -CARDIAC CATHS--STENTS X 2 IN 2018. -CATH 02/04/19--NO INTERVENTION. HAD PATENT STENT TO LEFT CIRCUMFLEX, WITH COMPLETE OCCLUSION OF LEFT PDA; PATENT STENT TO RCA; MILD DISEASE IN OTHER VESSELS -CATH 12/29/[address] KNIGHT: CONCLUSION: 1. Severe stenosis in the distal circumflex artery successful primary stenting using 2.25 mm x 23 mm skypoint stent expanded to 2.35 mm 2. Patent stent in the proximal circumflex artery with moderate stenosis in the first obtuse marginal branch 3. Patent stent in the proximal LAD with moderate stenosis in the mid LAD 4. Moderate stenosis in the mid right coronary artery with severe stenosis at the distal right PDA that is very small artery for intervention 4. Mildly elevated left ventricular end-diastolic pressure -APPENDECTOMY -EGD'S AND COLONOSCOPIES WITH POLYPECTOMY -BILATERAL CARPAL TUNNEL SURGERY -LEFT HAND SURGERY -LEFT FOOT SURGERY Physical Exam Vital Signs - First Documented 05/29/21 20:26 Temp 36.5 Pulse 98 Resp 20 B/P (MAP) 155/87 (109) Pulse Ox 95 O2 Delivery Nasal Cannula O2 Flow Rate 2.00 Capillary Refill : Height: 5'9.00" Weight: 247lbs. 7.0oz. [id number]; 36.00 BMI Method:Stated General Appearance: WD/WN, no apparent distress, obese HEENT: pharynx normal Neck: normal inspection Respiratory: normal breath sounds, no respiratory distress, no accessory muscle use Cardiovascular: regular rate, rhythm, no JVD, no murmur Gastrointestinal: non tender, soft Extremities: normal range of motion, non-tender, no calf tenderness, normal capillary refill, other (3+ ON RIGHT, 2+ ON LEFT--PT STATES IS NORMAL. ) Neurologic/Psychiatric: no motor/sensory deficits (BUT HISTORY OF PERIPHERAL NEUROPATHY), alert, normal mood/affect, oriented x 3 Skin: normal color, warm/dry; No rash Focused Exam Sepsis Stage: Ruled Out Reason for ruling out sepsis: DOES NOT MEET CRITERIA Possible Source: Pulmonary Lactate Level 05/29/21 20:26: Lactic Acid Level 1.82 Time of Focused Exam: 22:30 Respiratory: Normal Breath Sounds, No Accessory Muscle Use, No Respiratory Distress Cardiovascular: Regular Rate, Rhythm Capillary Refill: Less Than 3 Seconds Skin: normal color, warm/dry Lactic Acid Level Laboratory Tests Test 05/29/21 20:26 Lactic Acid Level 1.82 MMOL/L (0.50-2.00) Within 3hrs of presentation: Admin fluids (NO AGGRESSIVE FLUID THERAPY DUE TO CHF AND NO OTHER SEPSIS CRITERIA MET. ), Admin ABX, Blood cultures prior to ABX's, Focus exam, Lactate level Procedures/Interventions Date of ETT Placement: Dec 31, 2020 Time of ETT Placement: 1600 Progress/Results/Core Measures Suspected Sepsis SIRS Temperature: Pulse: Respiratory Rate: Laboratory Tests 05/29/21 20:26: White Blood Count 8.1 Blood Pressure / Mean: 05/29/21 20:26: Lactic Acid Level 1.82 Laboratory Tests 05/29/21 20:26: Creatinine 1.11, INR Comment 1.1, Platelet Count 425H, Total Bilirubin 0.3 Results/Orders Lab Results Laboratory Tests Test 05/29/21 20:26 05/29/21 20:33 05/29/21 20:47 05/29/21 20:48 Range/Units White Blood Count 8.1 4.3-11.0 10^3/uL Red Blood Count 3.92 L 4.30-5.52 10^6/uL Hemoglobin 10.5 L 13.3-17.7 g/dL Hematocrit 34 L 40-54 % Mean Corpuscular Volume 87 80-99 fL Mean Corpuscular Hemoglobin 27 25-34 pg Mean Corpuscular Hemoglobin Concent 31 L 32-36 g/dL Red Cell Distribution Width 17.2 H 10.0-14.5 % Platelet Count 425 H 130-400 10^3/uL Mean Platelet Volume 9.2 9.0-12.2 fL Immature Granulocyte % (Auto) 0 % Neutrophils (%) (Auto) 70 42-75 % Lymphocytes (%) (Auto) 18 12-44 % Monocytes (%) (Auto) 8 0-12 % Eosinophils (%) (Auto) 4 0-10 % Basophils (%) (Auto) 1 0-10 % Neutrophils # (Auto) 5.7 1.8-7.8 10^3/uL Lymphocytes # (Auto) 1.4 1.0-4.0 10^3/uL Monocytes # (Auto) 0.6 0.0-1.0 10^3/uL Eosinophils # (Auto) 0.3 0.0-0.3 10^3/uL Basophils # (Auto) 0.1 0.0-0.1 10^3/uL Immature Granulocyte # (Auto) 0.0 0.0-0.1 10^3/uL Erythrocyte Sedimentation Rate 48 H 0-30 MM/HR Prothrombin Time 14.4 12.2-14.7 SEC INR Comment 1.1 0.8-1.4 Activated Partial Thromboplast Time 45 H 24-35 SEC D-Dimer 3.21 H 0.00-0.49 UG/ML Sodium Level 141 135-145 MMOL/L Potassium Level 3.9 3.6-5.0 MMOL/L Chloride Level 105 98-107 MMOL/L Carbon Dioxide Level 21 21-32 MMOL/L Anion Gap 15 H 5-14 MMOL/L Blood Urea Nitrogen 15 7-18 MG/DL Creatinine 1.11 0.60-1.30 MG/DL Estimat Glomerular Filtration Rate 76 BUN/Creatinine Ratio 14 Glucose Level 202 H 70-105 MG/DL Lactic Acid Level 1.82 0.50-2.00 MMOL/L Calcium Level 8.7 8.5-10.1 MG/DL Corrected Calcium 9.2 8.5-10.1 MG/DL Magnesium Level 1.8 1.6-2.4 MG/DL Total Bilirubin 0.3 0.1-1.0 MG/DL Aspartate Amino Transf (AST/SGOT) 42 H 5-34 U/L Alanine Aminotransferase (ALT/SGPT) 25 0-55 U/L Alkaline Phosphatase 98 40-136 U/L Total Creatine Kinase 44 30-200 U/L Creatine Kinase MB 1.9 <6.6 NG/ML Myoglobin 48.4 10.0-92.0 NG/ML Troponin I < 0.028 <0.028 NG/ML C-Reactive Protein High Sensitivity 0.24 0.00-0.50 MG/DL B-Type Natriuretic Peptide 147.9 H <100.0 PG/ML Total Protein 7.1 6.4-8.2 GM/DL Albumin 3.4 3.2-4.5 GM/DL Lipase 25 8-78 U/L Procalcitonin 0.04 <0.10 NG/ML Serum Alcohol < 10 <10 MG/DL Influenza Type A (RT-PCR) Not Detected Not Detecte Influenza Type B (RT-PCR) Not Detected Not Detecte SARS-CoV-2 RNA (RT-PCR) Not Detected Not Detecte Glucometer 205 H 70-110 MG/DL Blood Gas Puncture Site R RADIAL Blood Gas Patient Temperature 36.8 Arterial Blood pH 7.37 7.37-7.43 Arterial Blood Partial Pressure CO2 46 H 35-45 MMHG Arterial Blood Partial Pressure O2 63 L 79-93 MMHG Arterial Blood HCO3 26 23-27 MMOL/L Arterial Blood Total CO2 27.2 21.0-31.0 MMOL/L Arterial Blood Oxygen Saturation 93 L 94-100 % Arterial Blood Base Excess 1.1 -2.5-2.5 MMOL/L Kush Test YES-POS Blood Gas Ventilator Setting NO Blood Gas Inspired Oxygen 2L Test 05/29/21 22:50 Range/Units My Orders Orders - NIKOLE MONSON DO Accucheck Stat ONCE (05/29/21:) Ed Iv/Invasive Line Start (05/29/21:) Ekg Tracing (05/29/21) O2 (05/29/21) Monitor-Rhythm Ecg Trace Only (05/29/21) Alcohol (05/29/21:) Arterial Blood Gas (05/29/21) Bnp Keyanna (05/29/21:) Cbc With Automated Diff (05/29/21) Comprehensive Metabolic Panel (05/29/21) Creatine Kinase (05/29/21) Creatine Kinase Mb (05/29/21) Hs C Reactive Protein (05/29/21) Fibrin Degradation Products (05/29/21) Lactic Acid Analyzer (05/29/21) Lipase (05/29/21) Magnesium (05/29/21) Protime With Inr (05/29/21) Partial Thromboplastin Time (05/29/21) Ua Culture If Indicated (05/29/21) Erythrocyte Sedimentation Rate (05/29/21) Myoglobin Serum (05/29/21:) Troponin I Simpson (05/29/21) Procalcitonin (Pct) (05/29/21) Blood Culture (05/29/21:) Covid 19 Inhouse Test (05/29/21:) Urine Culture (05/29/21) Chest 1 View, Ap/Pa Only (05/29/21:) Ed Iv/Invasive Line Start (05/29/21:) Ed Iv/Invasive Line Start (05/29/21) Vital Signs Adult Sepsis Patie Q15M (05/29/21) O2 (05/29/21:) Remove Rings In Anticipation O (05/29/21) Ns Iv 1000 Ml (Sodium Chloride 0.9%) (05/29/21 20:30) Influenza A And B By Pcr (05/29/21) Isolation Central Supply Req (4/11/22 20:28) Ct Angio Chest W (05/29/21 21:21) Iohexol Injection (Omnipaque 350 Mg/Ml 1 (05/29/21 21:30) Ns (Ivpb) (Sodium Chloride 0.9% Ivpb Bag (05/29/21 21:30) Furosemide Injection (Lasix Injection) (05/29/21 23:00) Medications Given in ED Current Medications Medications Dose Ordered Sig/Brissa Route Start Time Stop Time Status Last Admin Dose Admin Iohexol 100 ml ONCE ONCE IV 05/29/21 21:30 05/29/21 21:31 DC 05/29/21 22:27 90 ML Sodium Chloride 100 ml ONCE ONCE IV 05/29/21 21:30 05/29/21 21:31 DC 05/29/21 22:27 80 ML Vital Signs/I&O 05/29/21 05/29/21 05/29/21 20:26 20:49 22:38 Temp 36.5 Pulse 98 Resp 20 B/P (MAP) 155/87 (109) Pulse Ox 95 95 O2 Delivery Nasal Cannula Nasal Cannula Nasal Cannula O2 Flow Rate 2.00 2.00 2.00 Capillary Refill : Progress Note : Progress Note PLACED IN ISOLATION ROOM PPE WORN COVID AND FLU TESTING DONE SEPSIS PROTOCOL INITIATED ON ARRIVAL. DUO NEB TREATMENT COMPLETE SHORTLY AFTER ARRIVAL AND O2 SATS 95% ON 2L/NC AND PT HAS NO COMPLAINTS AT THIS TIME. VITALS NORMAL O2 SATS 97% ON 2L/NC AT TIME OF ADMIT NO DETERIORATION IN PT'S CONDITION DURING ER STAY NO COMPLAINTS DURING ER STAY ECG Initial ECG Impression Date: May 29, 2021 Initial ECG Impression Time: 20:40 Initial ECG Rate: 100 Initial ECG Rhythm: Normal Sinus Initial ECG Impression: Nonspecific Changes Diagnostic Imaging Comments CXR--PER RADIOLOGIST REPORT AT 2129 FINDINGS: Single view of the chest demonstrates cardiac enlargement and new central vascular congestion. There is no pneumothorax or effusion. IMPRESSION: Cardiac enlargement with new central vascular congestion. CT CHEST ANGIOGRAM--PER RADIOLOGIST REPORT AT 2246 FINDINGS: The heart is enlarged with interstitial edema and vascular congestion. Reactive hilar lymph nodes are present. The pulmonary arteries and aorta are normal. There is no pulmonary embolism. There is atelectasis in both lung bases. There is trace right-sided effusion. There is no pneumothorax. Osseous structures and visualized upper abdominal solid organs are unremarkable. IMPRESSION: 1. CHF. 2. No pulmonary embolism or aortic pathology. Reviewed: Reviewed by Me Departure Communication (Admissions) [id number]--SPOKE WITH DR. ADAMS, ACCEPTS PT FOR ADMIT. Impression Primary Impression: Acute and chronic respiratory failure with hypoxia Additional Impressions: IDDM (insulin dependent diabetes mellitus) Non-compliance CHF (congestive heart failure) COPD exacerbation Disposition: ADMITTED INPATIENT Condition: Improved Departure-Patient Inst. Referrals: KATE CORONADO MD (PCP/Family) Primary Care Physician NIKOLE MONSON DO May 29, 2021 20:37
[2021-05-29 20:47] LABS: BASOPHILS # (AUTO) 0.1 10^3/uL (0.0-0.1); BASOPHILS % (AUTO) 1 % (0-10); EOSINOPHILS # (AUTO) 0.3 10^3/uL (0.0-0.3); EOSINOPHILS % (AUTO) 4 % (0-10); HEMATOCRIT 34 % (40-54); HEMOGLOBIN 10.5 g/dL (13.3-17.7); LYMPHOCYTES # (AUTO) 1.4 10^3/uL (1.0-4.0); LYMPHOCYTES % (AUTO) 18 % (12-44); MEAN CORPUSCULAR HEMOGLOBIN 27 pg (25-34); MEAN CORPUSCULAR HGB CONC 31 g/dL (32-36); MEAN CORPUSCULAR VOLUME 87 fL (80-99); MEAN PLATELET VOLUME 9.2 fL (9.0-12.2); MONOCYTES # (AUTO) 0.6 10^3/uL (0.0-1.0); MONOCYTES % (AUTO) 8 % (0-12); NEUTROPHILS # (AUTO) 5.7 10^3/uL (1.8-7.8); NEUTROPHILS % (AUTO) 70 % (42-75); PLATELET COUNT 425 10^3/uL (130-400); WHITE BLOOD COUNT 8.1 10^3/uL (4.3-11.0)
[2021-05-29 20:54] LABS: ABG BASE EXCESS 1.1 MMOL/L (-2.5-2.5); ABG OXYGEN SATURATION 93 % (94-100); ABG PCO2 46 MMHG (35-45); ABG PH 7.37 (7.37-7.43); ABG PO2 63 MMHG (79-93); ABG TCO2 27.2 MMOL/L (21.0-31.0); ALLENS TEST YES-POS; INSPIRED O2 2L; PATIENT TEMP 36.8; VENTILATOR NO
[2021-05-29 20:56] LABS: FIBRIN DEGRADATION PRODUCTS 3.21 UG/ML (0.00-0.49); INR 1.1 (0.8-1.4); PROTHROMBIN TIME PATIENT 14.4 SEC (12.2-14.7)
[2021-05-29 21:09] LABS: ALANINE AMINOTRANSFERASE 25 U/L (0-55); ALBUMIN 3.4 GM/DL (3.2-4.5); ALKALINE PHOSPHATASE 98 U/L (40-136); BILIRUBIN,TOTAL 0.3 MG/DL (0.1-1.0); BUN/CREATININE RATIO 14; CALCIUM 8.7 MG/DL (8.5-10.1); CARBON DIOXIDE 21 MMOL/L (21-32); CHLORIDE 105 MMOL/L (98-107); CREATINE KINASE 44 U/L (30-200); CREATININE SERUM 1.11 MG/DL (0.60-1.30); GFR ESTIMATED 76; GLUCOSE 202 MG/DL (70-105); LIPASE 25 U/L (8-78); MAGNESIUM 1.8 MG/DL (1.6-2.4); POTASSIUM 3.9 MMOL/L (3.6-5.0); SODIUM 141 MMOL/L (135-145); TOTAL PROTEIN 7.1 GM/DL (6.4-8.2)
[2021-05-29 21:17] LABS: ERYTHROCYTE SEDIMENTATION RATE 48 MM/HR (0-30)
--- NOTE | 2021-05-29 21:27 | Diagnostic Imaging Report ---
INDICATION: Shortness of breath COMPARISON: 04/21/2021 FINDINGS: Single view of the chest demonstrates cardiac enlargement and new central vascular congestion. There is no pneumothorax or effusion. IMPRESSION: Cardiac enlargement with new central vascular congestion. Dictated by: Dictated on workstation # [id number]
[2021-05-29 21:30] LABS: CREATINE KINASE MB 1.9 NG/ML (<6.6)
[2021-05-29] MEDS ORDERED: NS 100 ML (IVPB) BAG IV ONE (21:30)
[2021-05-29] MEDS ORDERED: IOHEXOL 350 MG/ML 100 ML (OMNIPAQUE 350) VIAL IV ONE (21:30)
--- NOTE | 2021-05-29 22:38 | Diagnostic Imaging Report ---
PROCEDURE: CT angiography of the chest with contrast. TECHNIQUE: Multiple contiguous axial images were obtained through the chest after uneventful bolus administration of intravenous contrast. 3D reconstructed CTA MIP acquisitions were also performed. Auto Exposure Controls were utilized during the CT exam to meet ALARA standards for radiation dose reduction. INDICATION: Cough, shortness of breath. COMPARISON: 12/06/2017 FINDINGS: The heart is enlarged with interstitial edema and vascular congestion. Reactive hilar lymph nodes are present. The pulmonary arteries and aorta are normal. There is no pulmonary embolism. There is atelectasis in both lung bases. There is trace right-sided effusion. There is no pneumothorax. Osseous structures and visualized upper abdominal solid organs are unremarkable. IMPRESSION: 1. CHF. 2. No pulmonary embolism or aortic pathology. Dictated by: Dictated on workstation # [id number]
[2021-05-29] MEDS ORDERED: FUROSEMIDE 40 MG/4 ML INJ (LASIX) IVP ONE (23:00)
[2021-05-29 23:12] LABS: BILIRUBIN,URINE NEGATIVE (NEGATIVE); CLARITY,URINE CLEAR; COLOR,URINE YELLOW; GLUCOSE, URINE (UA) 3+ (NEGATIVE); KETONES,URINE NEGATIVE (NEGATIVE); LEUKOCYTE ESTERASE ,URINE NEGATIVE (NEGATIVE); NITRITE,URINE NEGATIVE (NEGATIVE); PROTEIN,URINE 3+ (NEGATIVE)
[2021-05-29 23:22] LABS: BACTERIA,URINE NEGATIVE /HPF; RBC,URINE 0-2 /HPF; SQUAMOUS EPITHELIAL CELL,UR RARE /HPF
[2021-05-30] VITALS (10 sets, daily range): BP systolic 129–170; BP diastolic 58–105
[2021-05-30] MEDS ORDERED: RT-ALBUTEROL/IPRATROPIUM 3 ML (DUONEB) VIAL INH PRN (01:30)
[2021-05-30] MEDS: RT-ALBUTEROL/IPRATROPIUM 3 ML (DUONEB) VIAL INH SCH ×3 (02:35→21:48)
[2021-05-30 02:46] LABS: BASOPHILS % (AUTO) 1 % (0-10); EOSINOPHILS # (AUTO) 0.2 10^3/uL (0.0-0.3); EOSINOPHILS % (AUTO) 3 % (0-10); HEMATOCRIT 33 % (40-54); HEMOGLOBIN 10.2 g/dL (13.3-17.7); LYMPHOCYTES # (AUTO) 1.7 10^3/uL (1.0-4.0); LYMPHOCYTES % (AUTO) 19 % (12-44); MEAN CORPUSCULAR HEMOGLOBIN 27 pg (25-34); MEAN CORPUSCULAR HGB CONC 31 g/dL (32-36); MEAN CORPUSCULAR VOLUME 87 fL (80-99); MONOCYTES # (AUTO) 0.6 10^3/uL (0.0-1.0); MONOCYTES % (AUTO) 6 % (0-12); NEUTROPHILS # (AUTO) 6.3 10^3/uL (1.8-7.8); NEUTROPHILS % (AUTO) 72 % (42-75); PLATELET COUNT 452 10^3/uL (130-400); WHITE BLOOD COUNT 8.8 10^3/uL (4.3-11.0)
[2021-05-30 02:52] LABS: CHLORIDE 104 MMOL/L (98-107); POTASSIUM 3.6 MMOL/L (3.6-5.0); SODIUM 142 MMOL/L (135-145)
[2021-05-30 02:54] LABS: GLUCOSE 205 MG/DL (70-105)
[2021-05-30 02:55] LABS: CARBON DIOXIDE 22 MMOL/L (21-32)
[2021-05-30 02:57] LABS: GFR ESTIMATED 69
[2021-05-30 02:58] LABS: BUN/CREATININE RATIO 13
[2021-05-30] MEDS: CATHETER FLUSH 10 ML SYR IVP SCH ×3 (06:55→22:00)
[2021-05-30] MEDS: inSUlin ASPART (NovoLOG) 1 UNIT/0.01 ML (CHARGE PER UNIT) SC SCH ×4 (06:55→21:27)
--- NOTE | 2021-05-30 07:53 | Diagnostic Imaging Report ---
EXAMINATION: Chest 1 view HISTORY: COPD and CHF COMPARISON: 05/30/2011 FINDINGS: Heart size and pulmonary vasculature are stable. Low lung volumes without consolidation, pleural effusion, or pneumothorax. The osseous structures are intact. IMPRESSION: 1. Stable cardiomegaly with low lung volumes compared to 05/29/2021. Dictated by: Dictated on workstation # [id number]
--- NOTE | 2021-05-30 08:55 | Diagnostic Imaging Report ---
PROCEDURE: US Venous Lower Ext Frandy. TECHNIQUE: Multiple real-time grayscale images were obtained over the lower extremities in various projections, bilaterally. Additional duplex Doppler and color Doppler images were also obtained. INDICATION: Acute onset of leg pain. FINDINGS: Color Doppler imaging shows antegrade flow throughout the venous system lower extremities bilaterally. Calf compression showed normal augmentation of flow at the popliteal level. No evidence of popliteal cyst. IMPRESSION: No evidence of venous thrombosis within the lower extremities. Dictated by: Dictated on workstation # [id number]
--- NOTE | 2021-05-30 09:25 | History & Physical ---
HPI History of Present Illness: Saturday night "tanked" oxygen to 78%, took a couple hours to get back up, felt tired from that all weekend and stayed on his supplemental oxygen, had cough on Saturday, not the weekend, but again on Saturday and had low oxygen and chest pain and pain in right arm and under left chest. He states when he has the chest pains with breathing it is usually related to his heart failure acting up. He notes he has a cyst on his right leg that is pushing out his bone sideways and is painful and has appointment with Orthopedic Surgery for that. Due to needing lasix and his leg pain making it difficult to get around, he requested a bladder catheter, but it was painful and so he asked for it to be taken out and has had bleeding on and off since then. He reports that although his oxygen is back up, he still feels "like hell", a little dizzy, upset stomach and like he could pass out. He has a prescription for oxygen at home, wears at night with bipap all the time. During the day he uses oxygen just when needed, had been off of it most of Mar and all of April and up until this happened. He takes lasix regularly and he states he has not been out of any medications. Recently diagnosed with CKD stage 3, saw Nephrology last week and has ultrasound scheduled tomorrow afternoon. He states they recommended decreasing salt to less than 2000 mg, be careful what he eats and keep blood sugar better. He also notes essentially blindness in right eye, is seeing cataract surgeon next week. 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 Patients Allergies have been reviewed. Allergies Coded Allergies: aspirin (Verified Allergy, Severe, 12/10/17) egg (Verified Allergy, Intermediate, Vomiting, 03/21/20) Penicillins (Unverified Allergy, Unknown, 07/19/13) Sulfa (Sulfonamide Antibiotics) (Unverified Allergy, Unknown, 07/19/13) lidocaine (Verified Allergy, Unknown, 11/18/16) peanut (Unverified Allergy, Unknown, air closes off, 07/19/13) strawberry (Unverified Allergy, Unknown, airway closes off, 07/19/13) codeine (Unverified Adverse Reaction, Mild, NAUSEA, 02/03/14) Uncoded Allergies: ENVIRONMENTAL (Allergy, Unknown, 07/19/13) raw egg whites (Adverse Reaction, Unknown, upset stomach, 12/09/17) [id number] Hx Patient Social History Smoking Status: Never a Smoker 2nd Hand Smoke Exposure: Yes (PARENTS SMOKED) Recent Hopitalizations: No Alcohol Use?: Yes (glass of wine once a month or so) Have you traveled recently?: No Immunizations Up To Date Tetanus Booster (TDap): Unknown Influenza Vaccine Up-to-Date: No; Not Current First/Initial COVID19 Vaccinat: 05/18/2020 Second COVID19 Vaccination Jose: 06/15/2020 Third COVID19 Vaccination Date: 01/30/2021 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 -CATH 02/04/19--NO INTERVENTION. HAD PATENT STENT TO LEFT CIRCUMFLEX, WITH COMPLETE OCCLUSION OF LEFT PDA; PATENT STENT TO RCA; MILD DISEASE IN OTHER VESSELS -CATH 12/29/[address] KNIGHT: CONCLUSION: 1. Severe stenosis in the distal circumflex artery successful primary stenting using 2.25 mm x 23 mm skypoint stent expanded to 2.35 mm 2. Patent stent in the proximal circumflex artery with moderate stenosis in the first obtuse marginal branch 3. Patent stent in the proximal LAD with moderate stenosis in the mid LAD 4. Moderate stenosis in the mid right coronary artery with severe stenosis at the distal right PDA that is very small artery for intervention 4. Mildly elevated left ventricular end-diastolic pressure -APPENDECTOMY -EGD'S AND COLONOSCOPIES WITH POLYPECTOMY -BILATERAL CARPAL TUNNEL SURGERY -LEFT HAND SURGERY -LEFT FOOT SURGERY Review of Systems ([facility]) Constitutional: chills; No fever EENTM: nose congestion; No throat pain Respiratory: cough (non-productive, brief spells); No short of breath Cardiovascular: see HPI Gastrointestinal: No abdominal pain, No constipation; diarrhea (chronic with metformin), nausea; No vomiting Genitourinary: hematuria (after castro) Musculoskeletal: see HPI Skin: rash (psoriasis on back and elbows) Psychiatric/Neurological: Depressed Reviewed Test Results Reviewed Test Results Lab Laboratory Tests Test 05/29/21 20:26 05/29/21 20:33 05/29/21 20:47 05/29/21 20:48 Range/Units White Blood Count 8.1 4.3-11.0 10^3/uL Red Blood Count 3.92 L 4.30-5.52 10^6/uL Hemoglobin 10.5 L 13.3-17.7 g/dL Hematocrit 34 L 40-54 % Mean Corpuscular Volume 87 80-99 fL Mean Corpuscular Hemoglobin 27 25-34 pg Mean Corpuscular Hemoglobin Concent 31 L 32-36 g/dL Red Cell Distribution Width 17.2 H 10.0-14.5 % Platelet Count 425 H 130-400 10^3/uL Mean Platelet Volume 9.2 9.0-12.2 fL Immature Granulocyte % (Auto) 0 % Neutrophils (%) (Auto) 70 42-75 % Lymphocytes (%) (Auto) 18 12-44 % Monocytes (%) (Auto) 8 0-12 % Eosinophils (%) (Auto) 4 0-10 % Basophils (%) (Auto) 1 0-10 % Neutrophils # (Auto) 5.7 1.8-7.8 10^3/uL Lymphocytes # (Auto) 1.4 1.0-4.0 10^3/uL Monocytes # (Auto) 0.6 0.0-1.0 10^3/uL Eosinophils # (Auto) 0.3 0.0-0.3 10^3/uL Basophils # (Auto) 0.1 0.0-0.1 10^3/uL Immature Granulocyte # (Auto) 0.0 0.0-0.1 10^3/uL Erythrocyte Sedimentation Rate 48 H 0-30 MM/HR Prothrombin Time 14.4 12.2-14.7 SEC INR Comment 1.1 0.8-1.4 Activated Partial Thromboplast Time 45 H 24-35 SEC D-Dimer 3.21 H 0.00-0.49 UG/ML Sodium Level 141 135-145 MMOL/L Potassium Level 3.9 3.6-5.0 MMOL/L Chloride Level 105 98-107 MMOL/L Carbon Dioxide Level 21 21-32 MMOL/L Anion Gap 15 H 5-14 MMOL/L Blood Urea Nitrogen 15 7-18 MG/DL Creatinine 1.11 0.60-1.30 MG/DL Estimat Glomerular Filtration Rate 76 BUN/Creatinine Ratio 14 Glucose Level 202 H 70-105 MG/DL Lactic Acid Level 1.82 0.50-2.00 MMOL/L Calcium Level 8.7 8.5-10.1 MG/DL Corrected Calcium 9.2 8.5-10.1 MG/DL Magnesium Level 1.8 1.6-2.4 MG/DL Total Bilirubin 0.3 0.1-1.0 MG/DL Aspartate Amino Transf (AST/SGOT) 42 H 5-34 U/L Alanine Aminotransferase (ALT/SGPT) 25 0-55 U/L Alkaline Phosphatase 98 40-136 U/L Total Creatine Kinase 44 30-200 U/L Creatine Kinase MB 1.9 <6.6 NG/ML Myoglobin 48.4 10.0-92.0 NG/ML Troponin I < 0.028 <0.028 NG/ML C-Reactive Protein High Sensitivity 0.24 0.00-0.50 MG/DL B-Type Natriuretic Peptide 147.9 H <100.0 PG/ML Total Protein 7.1 6.4-8.2 GM/DL Albumin 3.4 3.2-4.5 GM/DL Lipase 25 8-78 U/L Procalcitonin 0.04 <0.10 NG/ML Serum Alcohol < 10 <10 MG/DL Influenza Type A (RT-PCR) Not Detected Not Detecte Influenza Type B (RT-PCR) Not Detected Not Detecte SARS-CoV-2 RNA (RT-PCR) Not Detected Not Detecte Glucometer 205 H 70-110 MG/DL Blood Gas Puncture Site R RADIAL Blood Gas Patient Temperature 36.8 Arterial Blood pH 7.37 7.37-7.43 Arterial Blood Partial Pressure CO2 46 H 35-45 MMHG Arterial Blood Partial Pressure O2 63 L 79-93 MMHG Arterial Blood HCO3 26 23-27 MMOL/L Arterial Blood Total CO2 27.2 21.0-31.0 MMOL/L Arterial Blood Oxygen Saturation 93 L 94-100 % Arterial Blood Base Excess 1.1 -2.5-2.5 MMOL/L Kush Test YES-POS Blood Gas Ventilator Setting NO Blood Gas Inspired Oxygen 2L Test 05/29/21 22:50 05/30/21 02:36 05/30/21 06:51 05/30/21 08:50 Range/Units Urine Color YELLOW Urine Clarity CLEAR Urine pH 6.0 5-9 Urine Specific [place] 1.025 H 1.016-1.022 Urine Protein 3+ H NEGATIVE Urine Glucose (UA) 3+ H NEGATIVE Urine Ketones NEGATIVE NEGATIVE Urine Nitrite NEGATIVE NEGATIVE Urine Bilirubin NEGATIVE NEGATIVE Urine Urobilinogen 0.2 < = 1.0 MG/DL Urine Leukocyte Esterase NEGATIVE NEGATIVE Urine RBC (Auto) 1+ H NEGATIVE Urine RBC 0-2 /HPF Urine WBC NONE /HPF Urine Squamous Epithelial Cells RARE /HPF Urine Crystals NONE /LPF Urine Bacteria NEGATIVE /HPF Urine Casts NONE /LPF Urine Mucus NEGATIVE /LPF Urine Culture Indicated NO White Blood Count 8.8 4.3-11.0 10^3/uL Red Blood Count 3.85 L 4.30-5.52 10^6/uL Hemoglobin 10.2 L 13.3-17.7 g/dL Hematocrit 33 L 40-54 % Mean Corpuscular Volume 87 80-99 fL Mean Corpuscular Hemoglobin 27 25-34 pg Mean Corpuscular Hemoglobin Concent 31 L 32-36 g/dL Red Cell Distribution Width 17.2 H 10.0-14.5 % Platelet Count 452 H 130-400 10^3/uL Mean Platelet Volume 9.0 9.0-12.2 fL Immature Granulocyte % (Auto) 0 % Neutrophils (%) (Auto) 72 42-75 % Lymphocytes (%) (Auto) 19 12-44 % Monocytes (%) (Auto) 6 0-12 % Eosinophils (%) (Auto) 3 0-10 % Basophils (%) (Auto) 1 0-10 % Neutrophils # (Auto) 6.3 1.8-7.8 10^3/uL Lymphocytes # (Auto) 1.7 1.0-4.0 10^3/uL Monocytes # (Auto) 0.6 0.0-1.0 10^3/uL Eosinophils # (Auto) 0.2 0.0-0.3 10^3/uL Basophils # (Auto) 0.0 0.0-0.1 10^3/uL Immature Granulocyte # (Auto) 0.0 0.0-0.1 10^3/uL Sodium Level 142 135-145 MMOL/L Potassium Level 3.6 3.6-5.0 MMOL/L Chloride Level 104 98-107 MMOL/L Carbon Dioxide Level 22 21-32 MMOL/L Anion Gap 16 H 5-14 MMOL/L Blood Urea Nitrogen 15 7-18 MG/DL Creatinine 1.20 0.60-1.30 MG/DL Estimat Glomerular Filtration Rate 69 BUN/Creatinine Ratio 13 Glucose Level 205 H 70-105 MG/DL Calcium Level 9.0 8.5-10.1 MG/DL Troponin I < 0.028 < 0.028 <0.028 NG/ML B-Type Natriuretic Peptide 162.0 H <100.0 PG/ML Glucometer 253 H 70-110 MG/DL Radiology CXR 05/29/21: "IMPRESSION: Cardiac enlargement with new central vascular congestion." CTA chest 05/29/21: "IMPRESSION: 1. CHF. 2. No pulmonary embolism or aortic pathology." Physical Exam-([facility]) Physical Exam Vital Signs VS - Last 72 Hours, by Label 05/29/21 05/29/21 05/29/21 05/29/21 20:26 20:49 22:38 23:48 Temp 36.5 36.5 Pulse 98 94 Resp 20 20 B/P (MAP) 155/87 (109) 147/84 Pulse Ox 95 95 96 O2 Delivery Nasal Cannula Nasal Cannula Nasal Cannula Nasal Cannula O2 Flow Rate 2.00 2.00 2.00 2.00 2.00 05/30/21 05/30/21 05/30/21 05/30/21 00:00 00:19 00:22 00:30 Temp 36.4 Pulse 104 106 105 Resp B/P (MAP) 155/73 (100) 159/105 (123) Pulse Ox 98 97 98 O2 Delivery Nasal Cannula Nasal Cannula Nasal Cannula O2 Flow Rate 2.00 2.00 2.00 05/30/21 05/30/21 05/30/21 05/30/21 01:00 01:04 01:09 01:15 Temp 36.4 Pulse 108 106 103 107 Resp 8 21 B/P (MAP) 151/75 (107) 170/84 (123) Pulse Ox 98 98 99 O2 Delivery Nasal Cannula Nasal Cannula O2 Flow Rate 2.00 2.00 05/30/21 05/30/21 05/30/21 05/30/21 02:36 04:00 04:02 07:00 Temp 36.4 Pulse 108 109 Resp 13 B/P (MAP) 133/66 (88) Pulse Ox 96 97 O2 Delivery Nasal Cannula Nasal Cannula O2 Flow Rate 2.00 2.00 05/30/21 05/30/21 05/30/21 05/30/21 08:00 08:22 08:37 09:02 Temp 36.8 Pulse 105 113 105 Resp 14 29 33 B/P (MAP) 129/58 (81) Pulse Ox 97 O2 Delivery Nasal Cannula Room Air O2 Flow Rate 2.00 2.00 05/30/21 05/30/21 05/30/21 05/30/21 09:07 09:22 09:52 10:07 Pulse 107 109 108 112 Resp 24 13 Pulse Ox 94 97 93 95 05/30/21 05/30/21 05/30/21 05/30/21 10:22 10:22 10:37 10:52 Pulse 107 113 117 Resp 16 15 42 Pulse Ox 93 96 95 O2 Delivery Nasal Cannula O2 Flow Rate 2.00 05/30/21 05/30/21 05/30/21 05/30/21 11:07 11:22 11:37 11:52 Pulse 115 116 112 115 Resp 23 24 Pulse Ox 95 96 96 91 05/30/21 05/30/21 05/30/21 05/30/21 12:00 12:00 13:00 16:00 Temp 37.1 Pulse 112 112 109 Resp 26 20 B/P (MAP) 139/67 (82) 134/60 (84) Pulse Ox 92 99 O2 Delivery Nasal Cannula O2 Flow Rate 2.00 Capillary Refill : Less Than 3 Seconds General Appearance: no apparent distress Respiratory: lungs clear Cardiovascular: irregularly irregular Gastrointestinal: normal bowel sounds, non tender, soft Extremities: no pedal edema Neurologic/Psychiatric: alert, normal mood/affect Skin: normal color, warm/dry Assessment/Plan Assessment/Plan Admission Status: Inpatient Order (span 2 midnights) Reason for Inpatient Admission: CHF exacerbation (1) Acute on chronic heart failure with preserved ejection fraction (HFpEF) Status: Acute Assessment & Plan: IV lasix given in ER, Cardiology consulted, appreciate recommendations. (2) Chronic kidney disease Status: Chronic Qualifiers: (3) Diabetes mellitus, type 2 Status: Chronic Qualifiers: (4) Hypertension Status: Chronic (5) COPD (chronic obstructive pulmonary disease) Status: Chronic (6) Mixed hyperlipidemia Status: Chronic (7) CAD (coronary artery disease) Status: Acute (8) DVT prophylaxis Status: Acute Assessment & Plan: Home KARINA Mehta MD May 30, 2021 09:25
[2021-05-30] MEDS ORDERED: FUROSEMIDE 40 MG/4 ML INJ (LASIX) IVP SCH (09:45)
[2021-05-30] MEDS ORDERED: HYDR-3817 PO (12:38)
[2021-05-30] MEDS ORDERED: PANT40TA52 PO (12:38)
[2021-05-30] MEDS ORDERED: DICL100G13 TP (12:38)
[2021-05-30] MEDS ORDERED: HYDR50CA3 PO (12:38)
[2021-05-30] MEDS ORDERED: ALB0.5V INH (12:38)
[2021-05-30] MEDS ORDERED: DAPA10TA PO (12:38)
[2021-05-30] MEDS ORDERED: MECL-149 PO (12:42)
--- NOTE | 2021-05-30 12:43 | Consultation-Cardiology ---
HPI-Cardiology Cardiology Consultation Date of Consultation 05/30/21 Date of Admission Time Seen by Provider: 12:36 Indication: Chest pain, shortness of breath HPI 60 years old gentleman with history of recurrent pulmonary edema. Has been maintained on oxygen, maintained at home. Doing well, started to have episodes of chest pain and shortness of breath, had significant episode requiring him coming to the hospital. This morning he is feeling better still having some shortness of breath, having significant edema of the right lower extremity. No further episodes of chest pain but reporting multiple short episodes of chest pain. Diagnosed recently with chronic kidney disease. Home Medications & Allergies Allergies: Coded Allergies: aspirin (Verified Allergy, Severe, 12/10/17) egg (Verified Allergy, Intermediate, Vomiting, 03/21/20) Penicillins (Unverified Allergy, Unknown, 07/19/13) Sulfa (Sulfonamide Antibiotics) (Unverified Allergy, Unknown, 07/19/13) lidocaine (Verified Allergy, Unknown, 01/06/16) peanut (Unverified Allergy, Unknown, air closes off, 07/19/13) strawberry (Unverified Allergy, Unknown, airway closes off, 07/19/13) codeine (Unverified Adverse Reaction, Mild, NAUSEA, 02/03/14) Uncoded Allergies: ENVIRONMENTAL (Allergy, Unknown, 07/19/13) raw egg whites (Adverse Reaction, Unknown, upset stomach, 12/09/17) Home Medication List Reviewed: Yes [id number]-Cizfvy Hx Patient Social History Marital Status: single Employed/Student: retired Smoking Status: Never a Smoker 2nd Hand Smoke Exposure: Yes (PARENTS SMOKED) Recent Hopitalizations: No Have you traveled recently?: No Alcohol Use?: Yes (glass of wine once a month or so) Immunizations Up To Date Tetanus Booster (TDap): Unknown Date of Pneumonia Vaccine: Aug 18, 2013 Past Medical History Discussed below Family Medical History Significant Family History: Heart Disease, Diabetes, Hypertension Family History: Congestive heart failure 19 MOTHER Family history: Arthritis 19 FATHER 19 MOTHER Family history: Cardiovascular disease 19 FATHER 19 MOTHER Family history: Diabetes mellitus 19 FATHER Family history: Glaucoma 19 MOTHER Family history: Hypertension 19 FATHER 19 MOTHER Family history: Osteoporosis 19 MOTHER Hearing loss 19 MOTHER Heart disease 19 FATHER 19 MOTHER Myocardial infarction 19 FATHER 19 MOTHER (DBL BYPASS) Stroke 19 MOTHER (MICRO STROKES) No Family History of: Abdominal aortic aneurysm Martin's disease Alcoholism Aphasia Cancer Cancer of colon Cataract Chest pain Congenital heart disease Cystic fibrosis Dementia Dysphagia Family history: Allergy Family history: Alzheimer's disease Family history: Asthma Family history: Breast disease Family history: Coronary thrombosis Family history: Gastrointestinal disease Family history: Thyroid disorder Headache Hereditary disease History of - anemia History of - disorder History of - respiratory disease History of drug abuse Human immunodeficiency virus (HIV) seropositivity Hypercholesterolemia Infertile Kidney disease Malignant neoplasm of lung Parkinson's disease Prostate cancer Psychotic disorder Seizure disorder Tuberculosis Visual impairment Review of Systems-General Review of Systems Constitutional: chills; No fever; weakness EENTM: see HPI, no symptoms reported, nose congestion; No throat pain Respiratory: see HPI, cough (non-productive, brief spells); No short of breath Cardiovascular: see HPI, chest pain, edema; No Hx of Intervention, No palpitations, No syncope, No vascular heart diseas, No other Gastrointestinal: no symptoms reported, see HPI; No abdominal pain, No constipation; diarrhea (chronic with metformin), nausea; No vomiting Genitourinary: see HPI, hematuria (after castro) Musculoskeletal: see HPI, joint pain, muscle weakness Skin: rash (psoriasis on back and elbows) Psychiatric/Neurological: See HPI, Anxiety, Depressed Reviewed Test Results Reviewed Test Results Lab Laboratory Tests Test 05/29/21 20:26 05/29/21 20:33 05/29/21 20:47 05/29/21 20:48 Range/Units White Blood Count 8.1 4.3-11.0 10^3/uL Red Blood Count 3.92 L 4.30-5.52 10^6/uL Hemoglobin 10.5 L 13.3-17.7 g/dL Hematocrit 34 L 40-54 % Mean Corpuscular Volume 87 80-99 fL Mean Corpuscular Hemoglobin 27 25-34 pg Mean Corpuscular Hemoglobin Concent 31 L 32-36 g/dL Red Cell Distribution Width 17.2 H 10.0-14.5 % Platelet Count 425 H 130-400 10^3/uL Mean Platelet Volume 9.2 9.0-12.2 fL Immature Granulocyte % (Auto) 0 % Neutrophils (%) (Auto) 70 42-75 % Lymphocytes (%) (Auto) 18 12-44 % Monocytes (%) (Auto) 8 0-12 % Eosinophils (%) (Auto) 4 0-10 % Basophils (%) (Auto) 1 0-10 % Neutrophils # (Auto) 5.7 1.8-7.8 10^3/uL Lymphocytes # (Auto) 1.4 1.0-4.0 10^3/uL Monocytes # (Auto) 0.6 0.0-1.0 10^3/uL Eosinophils # (Auto) 0.3 0.0-0.3 10^3/uL Basophils # (Auto) 0.1 0.0-0.1 10^3/uL Immature Granulocyte # (Auto) 0.0 0.0-0.1 10^3/uL Erythrocyte Sedimentation Rate 48 H 0-30 MM/HR Prothrombin Time 14.4 12.2-14.7 SEC INR Comment 1.1 0.8-1.4 Activated Partial Thromboplast Time 45 H 24-35 SEC D-Dimer 3.21 H 0.00-0.49 UG/ML Sodium Level 141 135-145 MMOL/L Potassium Level 3.9 3.6-5.0 MMOL/L Chloride Level 105 98-107 MMOL/L Carbon Dioxide Level 21 21-32 MMOL/L Anion Gap 15 H 5-14 MMOL/L Blood Urea Nitrogen 15 7-18 MG/DL Creatinine 1.11 0.60-1.30 MG/DL Estimat Glomerular Filtration Rate 76 BUN/Creatinine Ratio 14 Glucose Level 202 H 70-105 MG/DL Lactic Acid Level 1.82 0.50-2.00 MMOL/L Calcium Level 8.7 8.5-10.1 MG/DL Corrected Calcium 9.2 8.5-10.1 MG/DL Magnesium Level 1.8 1.6-2.4 MG/DL Total Bilirubin 0.3 0.1-1.0 MG/DL Aspartate Amino Transf (AST/SGOT) 42 H 5-34 U/L Alanine Aminotransferase (ALT/SGPT) 25 0-55 U/L Alkaline Phosphatase 98 40-136 U/L Total Creatine Kinase 44 30-200 U/L Creatine Kinase MB 1.9 <6.6 NG/ML Myoglobin 48.4 10.0-92.0 NG/ML Troponin I < 0.028 <0.028 NG/ML C-Reactive Protein High Sensitivity 0.24 0.00-0.50 MG/DL B-Type Natriuretic Peptide 147.9 H <100.0 PG/ML Total Protein 7.1 6.4-8.2 GM/DL Albumin 3.4 3.2-4.5 GM/DL Lipase 25 8-78 U/L Procalcitonin 0.04 <0.10 NG/ML Serum Alcohol < 10 <10 MG/DL Influenza Type A (RT-PCR) Not Detected Not Detecte Influenza Type B (RT-PCR) Not Detected Not Detecte SARS-CoV-2 RNA (RT-PCR) Not Detected Not Detecte Glucometer 205 H 70-110 MG/DL Blood Gas Puncture Site R RADIAL Blood Gas Patient Temperature 36.8 Arterial Blood pH 7.37 7.37-7.43 Arterial Blood Partial Pressure CO2 46 H 35-45 MMHG Arterial Blood Partial Pressure O2 63 L 79-93 MMHG Arterial Blood HCO3 26 23-27 MMOL/L Arterial Blood Total CO2 27.2 21.0-31.0 MMOL/L Arterial Blood Oxygen Saturation 93 L 94-100 % Arterial Blood Base Excess 1.1 -2.5-2.5 MMOL/L Kush Test YES-POS Blood Gas Ventilator Setting NO Blood Gas Inspired Oxygen 2L Test 05/29/21 22:50 05/30/21 02:36 05/30/21 06:51 05/30/21 08:50 Range/Units Urine Color YELLOW Urine Clarity CLEAR Urine pH 6.0 5-9 Urine Specific [place] 1.025 H 1.016-1.022 Urine Protein 3+ H NEGATIVE Urine Glucose (UA) 3+ H NEGATIVE Urine Ketones NEGATIVE NEGATIVE Urine Nitrite NEGATIVE NEGATIVE Urine Bilirubin NEGATIVE NEGATIVE Urine Urobilinogen 0.2 < = 1.0 MG/DL Urine Leukocyte Esterase NEGATIVE NEGATIVE Urine RBC (Auto) 1+ H NEGATIVE Urine RBC 0-2 /HPF Urine WBC NONE /HPF Urine Squamous Epithelial Cells RARE /HPF Urine Crystals NONE /LPF Urine Bacteria NEGATIVE /HPF Urine Casts NONE /LPF Urine Mucus NEGATIVE /LPF Urine Culture Indicated NO White Blood Count 8.8 4.3-11.0 10^3/uL Red Blood Count 3.85 L 4.30-5.52 10^6/uL Hemoglobin 10.2 L 13.3-17.7 g/dL Hematocrit 33 L 40-54 % Mean Corpuscular Volume 87 80-99 fL Mean Corpuscular Hemoglobin 27 25-34 pg Mean Corpuscular Hemoglobin Concent 31 L 32-36 g/dL Red Cell Distribution Width 17.2 H 10.0-14.5 % Platelet Count 452 H 130-400 10^3/uL Mean Platelet Volume 9.0 9.0-12.2 fL Immature Granulocyte % (Auto) 0 % Neutrophils (%) (Auto) 72 42-75 % Lymphocytes (%) (Auto) 19 12-44 % Monocytes (%) (Auto) 6 0-12 % Eosinophils (%) (Auto) 3 0-10 % Basophils (%) (Auto) 1 0-10 % Neutrophils # (Auto) 6.3 1.8-7.8 10^3/uL Lymphocytes # (Auto) 1.7 1.0-4.0 10^3/uL Monocytes # (Auto) 0.6 0.0-1.0 10^3/uL Eosinophils # (Auto) 0.2 0.0-0.3 10^3/uL Basophils # (Auto) 0.0 0.0-0.1 10^3/uL Immature Granulocyte # (Auto) 0.0 0.0-0.1 10^3/uL Sodium Level 142 135-145 MMOL/L Potassium Level 3.6 3.6-5.0 MMOL/L Chloride Level 104 98-107 MMOL/L Carbon Dioxide Level 22 21-32 MMOL/L Anion Gap 16 H 5-14 MMOL/L Blood Urea Nitrogen 15 7-18 MG/DL Creatinine 1.20 0.60-1.30 MG/DL Estimat Glomerular Filtration Rate 69 BUN/Creatinine Ratio 13 Glucose Level 205 H 70-105 MG/DL Calcium Level 9.0 8.5-10.1 MG/DL Troponin I < 0.028 < 0.028 <0.028 NG/ML B-Type Natriuretic Peptide 162.0 H <100.0 PG/ML Glucometer 253 H 70-110 MG/DL Test 05/30/21 11:28 Range/Units Glucometer 162 H 70-110 MG/DL Physical Exam Physical Exam Vital Signs Vital Signs - First Documented 05/29/21 20:26 Temp 36.5 Pulse 98 Resp 20 B/P (MAP) 155/87 (109) Pulse Ox 95 O2 Delivery Nasal Cannula O2 Flow Rate 2.00 Capillary Refill : Less Than 3 Seconds Height, Weight, BMI Height: 5'9.00" Weight: 247lbs. 7.0oz. [id number]; 36.99 BMI Method:Stated General Appearance: No Apparent Distress, WD/WN Eyes: Bilateral Eye Normal Inspection, Bilateral Eye PERRL, Bilateral Eye EOMI HEENT: PERRL/EOMI, TMs Normal, Normal ENT Inspection, Pharynx Normal, Moist Mucous Membranes Neck: Full Range of Motion, Normal Inspection, Non Tender, Supple, Carotid Bruit Respiratory: Normal Breath Sounds, No Accessory Muscle Use, No Respiratory Distress Cardiovascular: Regular Rate, Rhythm Gastrointestinal: Normal Bowel Sounds, No Organomegaly, No Pulsatile Mass, Non Tender, Soft Back: Normal Inspection, No CVA Tenderness, No Vertebral Tenderness Extremity: Normal Capillary Refill, Normal Inspection, Normal Range of Motion, Non Tender, No Calf Tenderness, Pedal Edema (Right leg) Neurologic/Psychiatric: Alert, Oriented x3, No Motor/Sensory Deficits, Normal Mood/Affect Skin: Normal Color, Warm/Dry Lymphatic: No Adenopathy A/P-Cardiology Admission Diagnosis Shortness of breath Congestive heart failure Coronary artery disease Chest pain Assessment/Plan Shortness of breath, congestive heart failure, mild elevation in BNP. Had multiple episodes of pulmonary edema in December 2020 with normal BNP. Currently responding well to diuretics. Continue to monitor 2D echo was done on December 24, 2020 showing normal LV size with EF 60 to 65% with mild LVH and normal PA pressure of 20 to 25 mmHg. I will repeat 2D echo Chest pain nonspecific etiology, history of chronic stable angina. Cardiac enzymes were negative, EKG did not show any acute changes, had history of coronary artery disease as described below. Continue to monitor Musculoskeletal pain, questionable cyst in his right leg, patient is following with orthopedic surgeon. Managed by medical team. Coronary artery disease- Cardiac catheterization on December 09, 2017 revealing multivessel coronary artery disease with severe stenosis in the proximal circumflex artery with primary stenting using Rocío 3.012 mm expanded to 3.25 mm with excellent results. Severe stenosis in the mid right coronary artery with primary stenting using 2.512 mm Rocío expanded to 2.75 with excellent results. Mild to moderate disease in the proximal LAD, severe stenosis at the ostium of first diagonal artery that is very small artery. Cardiac catheterization done February 04, 2019 revealed total occlusion of the left PDA off the circumflex artery, patent stent in the proximal circumflex. Patent stent in the midright coronary artery. Mild disease in the LAD. Cardiac catheterization was done on December 29, 2020 showing patent stent in the proximal circumflex, right coronary artery. Severe stenosis at the distal circumflex artery, primary stenting using 2.25 x 23 mm expanded to 2.35 mm with excellent results. Has severe stenosis/subtotal occlusion at the distal right posterior descending artery, very small artery not amendable to intervention. Mild to moderate disease in the LAD. Maintained on Plavix and Xarelto. Allergy to aspirin causing angioedema, Hypertension, restart home medication monitor blood pressure Hyperlipidemia-continue to monitor lipids Frequent ventricular ectopy with PVC and ventricular trigeminy, maintained on beta kelli. Mild bilateral carotid stenosis, ultrasound was done in December 2018, continue to monitor. Family history of heart disease History of psoriasis. Diabetes mellitus, admitted with DKA, has had previous hospitalizations for DKA. Management per medical services Obesity, BMI is 36, we discussed weight loss and exercise CROW KNIGHT MD May 30, 2021 12:43
[2021-05-30] MEDS ORDERED: DICLOFENAC 1% GEL 100 GM (VOLTAREN) TUBE TP PRN (18:00)
[2021-05-30] MEDS ORDERED: HYDROcodone/APAP 7.5 MG/325 MG (LORTAB, LORCET PLUS) TABLET PO PRN (18:00)
[2021-05-30] MEDS: RIVAROXABAN 15 MG TABLET (XARELTO) PO SCH (18:52)
[2021-05-30] MEDS: FUROSEMIDE 40 MG/4 ML INJ (LASIX) IVP SCH (18:52)
[2021-05-30] MEDS ORDERED: NON-FORMULARY MEDICATION 1 EA EA (Insulin Aspart (Novolog Flexpen) 5 UNITS) SQ SCH (21:00)
[2021-05-30] MEDS ORDERED: NON-FORMULARY MEDICATION 1 EA EA (Insulin Detemir (Levemir Flextouch) 15 UNIT) SQ SCH (21:00)
[2021-05-30] MEDS: PANTOPRAZOLE 40 MG (PROTONIX) TAB PO SCH (21:26)
[2021-05-31] VITALS (7 sets, daily range): BP systolic 107–155; BP diastolic 56–95
[2021-05-31] MEDS: RT-ALBUTEROL/IPRATROPIUM 3 ML (DUONEB) VIAL INH SCH ×4 (02:10→21:30)
[2021-05-31] MEDS ORDERED: meTOprolol 5 MG/5 ML (LOPRESSOR) VIAL IV ONE (05:15)
[2021-05-31 05:51] LABS: HEMATOCRIT 27 % (40-54); HEMOGLOBIN 8.5 g/dL (13.3-17.7); MEAN CORPUSCULAR HEMOGLOBIN 27 pg (25-34); MEAN CORPUSCULAR HGB CONC 31 g/dL (32-36); MEAN CORPUSCULAR VOLUME 85 fL (80-99); MEAN PLATELET VOLUME 9.4 fL (9.0-12.2); PLATELET COUNT 380 10^3/uL (130-400); WHITE BLOOD COUNT 7.3 10^3/uL (4.3-11.0)
[2021-05-31 06:15] LABS: POTASSIUM 3.3 MMOL/L (3.6-5.0)
[2021-05-31 06:16] LABS: CALCIUM 8.5 MG/DL (8.5-10.1)
[2021-05-31] MEDS: CATHETER FLUSH 10 ML SYR IVP SCH ×3 (06:18→21:14)
[2021-05-31] MEDS: inSUlin ASPART (NovoLOG) 1 UNIT/0.01 ML (CHARGE PER UNIT) SC SCH ×7 (06:18→21:17)
[2021-05-31 06:20] LABS: CREATININE SERUM 1.04 MG/DL (0.60-1.30)
[2021-05-31] MEDS: FUROSEMIDE 40 MG/4 ML INJ (LASIX) IVP SCH ×2 (06:38→17:02)
[2021-05-31] MEDS ORDERED: LORazepam 0.5 MG (ATIVAN) TABLET PO PRN (08:15)
[2021-05-31] MEDS ORDERED: NON-FORMULARY MEDICATION 1 EA EA (Dapagliflozin Propanediol (Farxiga) 10 MG) PO SCH (09:00)
[2021-05-31] MEDS ORDERED: NON-FORMULARY MEDICATION 1 EA EA (Duloxetine HCl 60 MG) PO SCH (09:00)
[2021-05-31] MEDS ORDERED: KCL 20 MEQ TAB (K-DUR) PO ONE (09:00)
--- NOTE | 2021-05-31 09:07 | Cardiology Progress Note ---
Subjective Date Seen by Provider: May 31, 2021 Time Seen by Provider: 08:45 Subjective/Events-last exam Patient is complaining of chest pain this morning, has been intermittent. Review of Systems General: No Chills, No Night Sweats, No Fatigue, No Malaise, No Appetite, No Other HEENT: No Head Aches, No Visual Changes, No Eye Pain, No Ear Pain, No Dysphasia, No Sinus Congestion, No Post Nasal Drip, No Sore Throat, No Other Pulmonary: No Dyspnea, No Cough, No Pleuritic Chest Pain, No Other Cardiovascular: No: Chest Pain, Palpitations, Orthopnea, Paroxysmal Noc. Dyspnea, Edema, Lt Headedness, Other Focused Exam Lactate Level 05/29/21 20:26: Lactic Acid Level 1.82 Time of Focused Exam: 22:30 Objective-Cardiology Exam Last Set of Vital Signs Vital Signs 05/31/21 11:56 Temp 37.1 Pulse 107 Resp 16 B/P (MAP) 129/75 (93) Pulse Ox 98 O2 Delivery Nasal Cannula O2 Flow Rate 2.00 I&O Intake and Output 05/31/21 00:00 Intake Total 1340 ml Balance 1340 ml Intake Oral 1340 ml # Voids 8 # Bowel Movements 2 Daily Weight Change Yes, 2-13 lbs General: Alert, Oriented X3 HEENT: Atraumatic Lungs: Clear to Auscultation, Normal Air Movement Heart: Regular Rate, No Murmurs Abdomen: Soft Extremities: No Edema, Normal Pulses Skin: No Rashes Neuro: Normal Speech Results Lab Laboratory Tests 05/31/21 05:10 A/P-Cardiology Admission Diagnosis Shortness of breath Congestive heart failure Coronary artery disease Chest pain Assessment/Plan Shortness of breath, congestive heart failure, mild elevation in BNP. Had multiple episodes of pulmonary edema in December 2020 with normal BNP. Currently responding well to diuretics. Continue to monitor 2D echo was done on December 24, 2020 showing normal LV size with EF 60 to 65% with mild LVH and normal PA pressure of 20 to 25 mmHg. I will repeat 2D echo Chest pain nonspecific etiology, history of chronic stable angina. Cardiac enzymes were negative, EKG did not show any acute changes, Patient has known severe distal right coronary artery disease that was not amendable to intervention otherwise per cardiac catheterization December 2020 had mild to moderate disease. Continue with conservative management and monitor. Musculoskeletal pain, questionable cyst in his right leg, patient is following with orthopedic surgeon. Managed by medical team. Coronary artery disease- Cardiac catheterization on December 09, 2017 revealing multivessel coronary artery disease with severe stenosis in the proximal circumflex artery with primary stenting using Rocío 3.012 mm expanded to 3.25 mm with excellent results. Severe stenosis in the mid right coronary artery with primary stenting using 2.512 mm Rocío expanded to 2.75 with excellent results. Mild to moderate disease in the proximal LAD, severe stenosis at the ostium of first diagonal artery that is very small artery. Cardiac catheterization done February 04, 2019 revealed total occlusion of the left PDA off the circumflex artery, patent stent in the proximal circumflex. Patent stent in the midright coronary artery. Mild disease in the LAD. Cardiac catheterization was done on December 29, 2020 showing patent stent in the proximal circumflex, right coronary artery. Severe stenosis at the distal circumflex artery, primary stenting using 2.25 x 23 mm expanded to 2.35 mm with excellent results. Has severe stenosis/subtotal occlusion at the distal right posterior descending artery, very small artery not amendable to intervention. Mild to moderate disease in the LAD. Maintained on Plavix and Xarelto. Allergy to aspirin causing angioedema, Hypertension, controlled Hyperlipidemia-continue to monitor lipids Frequent ventricular ectopy with PVC and ventricular trigeminy, maintained on beta kelli. Mild bilateral carotid stenosis, ultrasound was done in December 2018, continue to monitor. Family history of heart disease History of psoriasis. Diabetes mellitus, admitted with DKA, has had previous hospitalizations for DKA. Management per medical services Obesity, BMI is 36, we discussed weight loss and exercise Supervisory-Addendum Brief Supervisory Addendum Participated in pt care: history, MDM, physical Personally performed: exam, history, MDM Care discussed with: ONOFRE Results interpretation: Verified all documentation Notes: Patient was seen and evaluated with Marsha, examination performed, management plan was discussed, agree with the current scribed note, I made few changes to the note using Italic font Patient was seen at bedside, laying down comfortably Reporting some episode of chest pain, atypical in presentation. Shortness of breath has improved. MARHSA ZHANG May 31, 2021 09:07 CROW KNIGHT MD May 31, 2021 12:13
[2021-05-31] MEDS: meTOprolol SUCCINATE 100 MG (TOPROL XL) TAB PO SCH (10:27)
[2021-05-31] MEDS: CLOPIDOGREL 75 MG (PLAVIX) TABLET PO SCH (10:27)
[2021-05-31] MEDS: ISOSORBIDE MONONITRATE 30 MG (IMDUR) TAB PO SCH (10:28)
[2021-05-31] MEDS: amLODIPine 10 MG (NORVASC) TAB PO SCH (10:28)
[2021-05-31] MEDS: EMPAGLIFLOZIN 10 MG TABLET (JARDIANCE) PO SCH (10:34)
[2021-05-31] MEDS: DULoxetine 30 MG (CYMBALTA) CAP PO SCH ×2 (10:34→17:06)
[2021-05-31] MEDS: LOSARTAN 100 MG (COZAAR) TABLET PO SCH (10:34)
[2021-05-31] MEDS: MECLIZINE 25 MG (ANTIVERT) TAB PO SCH (10:35)
--- NOTE | 2021-05-31 15:22 | Progress Note ---
Subjective Subjective/Events-last exam Pt is tearful at time of exam at about 0930, he is worried about his chest pain because he thinks it will lead to severe problems like it has in the past. His EKG did not show acute changes and I reassured him that his oxygen level is still good and his blood pressure is good and he did relax a little after that. He is also having a lot of pain in his leg and wonders if his Orthopedist can see him inpatient. Focused Exam Lactate Level 05/29/21 20:26: Lactic Acid Level 1.82 Time of Focused Exam: 22:30 Objective Exam Last Set of Vital Signs Vital Signs Date Time Temp Pulse Resp B/P (MAP) Pulse Ox O2 Delivery O2 Flow Rate FiO2 05/31/21 11:56 37.1 107 16 129/75 (93) 98 Nasal Cannula 2.00 Capillary Refill : Less Than 3 Seconds I&O Intake and Output 05/31/21 00:00 Intake Total 1340 ml Balance 1340 ml Intake Oral 1340 ml # Voids 8 # Bowel Movements 2 Daily Weight Change Yes, 2-13 lbs General: Alert, Mild Distress (anxious/tearful) Lungs: Clear to Auscultation, Normal Air Movement Heart: Other (irregular) Abdomen: Normal Bowel Sounds, Soft Neuro: Normal Speech Psych/Mental Status: Mental Status NL Results/Procedures Lab Laboratory Tests 05/30/21 15:52: Glucometer 170H 05/30/21 21:24: Glucometer 229H 05/31/21 05:10: White Blood Count 7.3, Red Blood Count 3.19L, Hemoglobin 8.5L, Hematocrit 27L, Mean Corpuscular Volume 85, Mean Corpuscular Hemoglobin 27, Mean Corpuscular Hemoglobin Concent 31L, Red Cell Distribution Width 17.8H, Platelet Count 380, Mean Platelet Volume 9.4, Sodium Level 143, Potassium Level 3.3L, Chloride Level 104, Carbon Dioxide Level 25, Anion Gap 14, Blood Urea Nitrogen 12, Creatinine 1.04, Estimat Glomerular Filtration Rate 82, BUN/Creatinine Ratio 12, Glucose Level 151H, Calcium Level 8.5 05/31/21 06:17: Glucometer 136H 05/31/21 11:03: Glucometer 178H Microbiology 05/29/21 Urine Culture - Preliminary, Resulted Slight Growth Present 05/29/21 Blood Culture - Preliminary, Resulted No growth Radiology CXR 05/29/21: "IMPRESSION: Cardiac enlargement with new central vascular congestion." CTA chest 05/29/21: "IMPRESSION: 1. CHF. 2. No pulmonary embolism or aortic pathology. Assessment/Plan Assessment/Plan (1) Acute on chronic heart failure with preserved ejection fraction (HFpEF) Status: Acute Assessment & Plan: IV lasix given in ER, Cardiology consulted, appreciate recommendations. Continued on IV lasix BID for now. (2) Chronic kidney disease Status: Chronic Qualifiers: (3) Diabetes mellitus, type 2 Status: Chronic Qualifiers: (4) Hypertension Status: Chronic (5) COPD (chronic obstructive pulmonary disease) Status: Chronic (6) Mixed hyperlipidemia Status: Chronic (7) CAD (coronary artery disease) Status: Acute (8) Right knee pain Status: Chronic Assessment & Plan: Previous US in Feb showed Prakash's popliteal cyst, has outpatient Ortho visit tomorrow, unfortunately will likely have to reschedule, discussed that his physician doesn't round here. (9) DVT prophylaxis Status: Acute Assessment & Plan: Home REZA Mehta MD May 31, 2021 15:21
[2021-05-31] MEDS ORDERED: NON-FORMULARY MEDICATION 1 EA EA (Hydroxyzine Pamoate 50 MG) PO SCH (17:00)
[2021-05-31] MEDS: RIVAROXABAN 15 MG TABLET (XARELTO) PO SCH (17:00)
[2021-05-31] MEDS ORDERED: hydrOXYzine (VISTARIL/ATARAX) 25 MG capsule/tablet PO SCH (17:00)
[2021-05-31] MEDS: PANTOPRAZOLE 40 MG (PROTONIX) TAB PO SCH (21:14)
[2021-06-01 00:22] VITALS: BP 138/77
[2021-06-01] MEDS: RT-ALBUTEROL/IPRATROPIUM 3 ML (DUONEB) VIAL INH SCH ×2 (03:19→09:37)
[2021-06-01 04:30] VITALS: BP 144/87
[2021-06-01] MEDS: inSUlin ASPART (NovoLOG) 1 UNIT/0.01 ML (CHARGE PER UNIT) SC SCH ×4 (05:11→12:02)
[2021-06-01] MEDS: CATHETER FLUSH 10 ML SYR IVP SCH (05:11)
[2021-06-01 05:26] LABS: HEMATOCRIT 28 % (40-54); HEMOGLOBIN 8.4 g/dL (13.3-17.7); MEAN CORPUSCULAR HEMOGLOBIN 26 pg (25-34); MEAN CORPUSCULAR HGB CONC 31 g/dL (32-36); MEAN CORPUSCULAR VOLUME 87 fL (80-99); MEAN PLATELET VOLUME 8.9 fL (9.0-12.2); PLATELET COUNT 332 10^3/uL (130-400); WHITE BLOOD COUNT 7.1 10^3/uL (4.3-11.0)
[2021-06-01 05:41] LABS: POTASSIUM 3.5 MMOL/L (3.6-5.0)
[2021-06-01 05:42] LABS: CALCIUM 8.8 MG/DL (8.5-10.1)
[2021-06-01 05:47] LABS: CREATININE SERUM 1.2 MG/DL (0.60-1.30)
[2021-06-01] MEDS: FUROSEMIDE 40 MG/4 ML INJ (LASIX) IVP SCH (06:31)
[2021-06-01 08:00] VITALS: BP 133/95
--- NOTE | 2021-06-01 08:01 | Cardiology Progress Note ---
Subjective Date Seen by Provider: Jun 01, 2021 Time Seen by Provider: 07:58 Subjective/Events-last exam Patient was seen at bedside, using his BiPAP Reporting improvement in his chest pain and edema. Review of Systems General: No Chills, No Night Sweats, No Fatigue, No Malaise, No Appetite, No Other HEENT: No Head Aches, No Visual Changes, No Eye Pain, No Ear Pain, No Dysphasia, No Sinus Congestion, No Post Nasal Drip, No Sore Throat, No Other Pulmonary: Dyspnea; No Cough, No Pleuritic Chest Pain, No Other Cardiovascular: Edema; No: Chest Pain, Palpitations, Orthopnea, Paroxysmal Noc. Dyspnea, Lt Headedness, Other Focused Exam Lactate Level 05/29/21 20:26: Lactic Acid Level 1.82 Time of Focused Exam: 22:30 Objective-Cardiology Exam Last Set of Vital Signs Vital Signs 06/01/21 06/01/21 03:19 04:30 Temp 36.5 Pulse 85 Resp 14 B/P (MAP) 144/87 (106) Pulse Ox 98 O2 Delivery NIV CPAP O2 Flow Rate 2.00 I&O Intake and Output 06/01/21 00:00 Intake Total 750 ml Output Total 2 ml Balance 748 ml Intake Oral 750 ml Output Stool Total 2 ml # Voids 6 General: Alert, Oriented X3, Cooperative, Mild Distress (anxious/tearful) HEENT: Atraumatic Neck: Supple, No JVD, No Thyromegaly Lungs: Clear to Auscultation, Normal Air Movement Heart: Regular Rate, Normal S1, Normal S2 Abdomen: Normal Bowel Sounds, Soft Extremities: No Clubbing, No Cyanosis, Normal Pulses, Other (Mild pedal edema) Skin: No Rashes Neuro: Normal Speech Psych/Mental Status: Mental Status NL Results Lab Laboratory Tests 06/01/21 05:10 A/P-Cardiology Admission Diagnosis Shortness of breath Congestive heart failure Coronary artery disease Chest pain Assessment/Plan Shortness of breath, congestive heart failure, mild elevation in BNP. Had multiple episodes of pulmonary edema in December 2020 with normal BNP. Currently responding well to diuretics. Continue to monitor 2D echo was done on May 31, 2021 showing normal LV size, EF 50 to 55%, grade 1 diastolic dysfunction, left atrial dilatation, PA pressure 20 to 25 mmHg Acute on chronic left ventricular diastolic dysfunction with normal systolic function, hypertensive heart disease Resolved, feeling better, recommend increasing Lasix as an outpatient. Chest pain nonspecific etiology, history of chronic stable angina. Cardiac enzymes were negative, EKG did not show any acute changes, Patient has known severe distal right coronary artery disease that was not amendable to intervention otherwise per cardiac catheterization December 2020 had mild to moderate disease. No further episodes of chest pain were reported Musculoskeletal pain, questionable cyst in his right leg, patient is following with orthopedic surgeon. Managed by medical team. Coronary artery disease- Cardiac catheterization on December 09, 2017 revealing multivessel coronary artery disease with severe stenosis in the proximal circumflex artery with primary stenting using Rocío 3.012 mm expanded to 3.25 mm with excellent results. Severe stenosis in the mid right coronary artery with primary stenting using 2.512 mm Rocío expanded to 2.75 with excellent results. Mild to moderate disease in the proximal LAD, severe stenosis at the ostium of first diagonal artery that is very small artery. Cardiac catheterization done February 04, 2019 revealed total occlusion of the left PDA off the circumflex artery, patent stent in the proximal circumflex. Patent stent in the midright coronary artery. Mild disease in the LAD. Cardiac catheterization was done on December 29, 2020 showing patent stent in the proximal circumflex, right coronary artery. Severe stenosis at the distal circumflex artery, primary stenting using 2.25 x 23 mm expanded to 2.35 mm with excellent results. Has severe stenosis/subtotal occlusion at the distal right posterior descending artery, very small artery not amendable to intervention. Mild to moderate disease in the LAD. Maintained on Plavix and Xarelto. Allergy to aspirin causing angioedema, Hypertension, controlled Hyperlipidemia-continue to monitor lipids Frequent ventricular ectopy with PVC and ventricular trigeminy, maintained on beta kelli. Mild bilateral carotid stenosis, ultrasound was done in December 2018, continue to monitor. Family history of heart disease History of psoriasis. Diabetes mellitus, admitted with DKA, has had previous hospitalizations for DKA. Management per medical services Obesity, BMI is 36, we discussed weight loss and exercise CROW KNIGHT MD Jun 01, 2021 08:01
[2021-06-01] MEDS: ISOSORBIDE MONONITRATE 30 MG (IMDUR) TAB PO SCH (08:34)
[2021-06-01] MEDS: CLOPIDOGREL 75 MG (PLAVIX) TABLET PO SCH (08:34)
[2021-06-01] MEDS: MECLIZINE 25 MG (ANTIVERT) TAB PO SCH (08:34)
[2021-06-01] MEDS: meTOprolol SUCCINATE 100 MG (TOPROL XL) TAB PO SCH (08:35)
[2021-06-01] MEDS: amLODIPine 10 MG (NORVASC) TAB PO SCH (08:35)
[2021-06-01] MEDS: EMPAGLIFLOZIN 10 MG TABLET (JARDIANCE) PO SCH (08:35)
[2021-06-01] MEDS: LOSARTAN 100 MG (COZAAR) TABLET PO SCH (08:35)
[2021-06-01] MEDS: DULoxetine 30 MG (CYMBALTA) CAP PO SCH (08:39)
[2021-06-01] MEDS ORDERED: KCL 20 MEQ TAB (K-DUR) PO ONE (08:45)
[2021-06-01 11:00] VITALS: BP 117/71
[2021-06-01] MEDS ORDERED: POTA10TA37 PO (11:16)
[2021-06-01] MEDS ORDERED: FURO40TA4 PO (11:16)
--- NOTE | 2021-06-01 11:17 | D/C HH Face to Face Order ---
D/C Face to Face Orders Instructions for Patient Patient Instructions/FollowUp: Follow up with Dr. Ortega next week Follow up with primary provider within a week. Physician to follow Patient: [facility] Discharge Diet for Home: ADA Diet, Low Sodium Diet Patient Problems: CHF COPD HTN HLD Patient Data-Allergies,Ht & Wt Patient Allergies: Coded Allergies: aspirin (Verified Allergy, Severe, 12/10/17) egg (Verified Allergy, Intermediate, Vomiting, 03/21/20) Penicillins (Unverified Allergy, Unknown, 07/19/13) Sulfa (Sulfonamide Antibiotics) (Unverified Allergy, Unknown, 07/19/13) lidocaine (Verified Allergy, Unknown, 01/06/16) peanut (Unverified Allergy, Unknown, air closes off, 07/19/13) strawberry (Unverified Allergy, Unknown, airway closes off, 07/19/13) codeine (Unverified Adverse Reaction, Mild, NAUSEA, 02/03/14) Uncoded Allergies: ENVIRONMENTAL (Allergy, Unknown, 07/19/13) raw egg whites (Adverse Reaction, Unknown, upset stomach, 12/09/17) Height (Feet): 5 Height (Inches): 9.00 Weight (Pounds): 247 Weight (Ounces): 7.0 Home Health Need/Face to Face Date of Face to Face: Jun 01, 2021 Clinical Findings: Shortness of breath I have seen Pt [id number]: Yes Discharged To: Home Diagnosis/Conditions: See problems Patient is Homebound due to: Shortness of breath/distress Homebound Status Due to the above stated illness, injury or surgical procedure (medical condition or diagnosis) and associated clinical findings, the patient is homebound because of his/her inability to leave home except with aid of a supportive device and/or person AND leaving the home requires a considerable and taxing effort or is medically contraindicated. Pt req the following assistanc: Aid of another person Home Health Nursing Orders Home Health Services Order: Nursing Services Home Health Infusion Therapy Line Start Date: May 29, 2021 Certify Stmt I certify that this patient is under my care and that I, a nurse practitioner or a physician; a certified dental assistant working with me, had a face to face encounter that - meets the physician face to face encounter requirements with this patient as dated. REZA ADAMS MD Jun 01, 2021 11:17
[2021-06-01 11:30] VITALS: BP 117/71
[2021-06-01 12:11] VITALS: BP 117/71
--- NOTE | 2021-06-01 14:15 | Physician Query Clarification ---
Physician Query-General Query to Physician: The medical record reflects the following clinical scenario: The patient, in the setting of History/Risk factors, Home 02 use PRN 2-2.5L, "uses oxygen just when needed, had been off of it most of Mar and all of April and up until this happened" COPD, CHF Clinical Findings 02 sats down to 78% (reported), Has been having to use 02 more at home last few days, RR 20 to 41, Lowest 02 sat while on 02 is 91% (P/F=221), Documentation of SOA with exertion, Admission ABG with P02 of 63 on 2L Treatment O2 2L continuous since admission, IV Lasix, Breathing RX, Question: Do you agree with the impression of Acute and chronic respiratory failure with hypoxia per Dr. Whitley Horan? 1. Yes; will document Acute and Chronic Respiratory failure, present on admission in the Progress Notes 2. No; will continue current documentation in the Progress Notes 3. Other; will document explanation of clinical findings 4. Clinically undetermined; no explanation for clinical findings Please clarify and document your clinical opinion in the Progress Notes and Discharge Summary including the definitive and/or presumptive diagnosis, (suspected or probable), related to the above clinical findings. Please include clinical findings supporting your diagnosis. In responding to this query, please exercise your independent professional judgment. The purpose of this communication is to more accurately reflect the complexity of your patients condition. The fact that a question is asked does not imply that any particular answer is desired or expected. Please remember a lack of response to the above will prompt a phone page by CDI/coding staff Thank you for timely response to this clarification. Nayeli Molina MSN, RN Clinical Beauty Operator Apprentice [phone] PHYSICIAN RESPONSE: Based on the clinical findings in the record, please respond to the query above on this document as an addendum. Physician Response: Physician Response 1 If you have questions please contact: Furniture Lumber Production Worker: Ext: Thank you for your time and cooperation. Clinical Beauty Operator Apprentice/Furniture Lumber Production Worker This is a permanent part of the medical record NAYELI MOLINA Jun 01, 2021 14:15 REZA ADAMS MD Jun 01, 2021 19:54
[2021-06-01] MEDS ORDERED: FUROSEMIDE 40 MG (LASIX) TAB PO SCH (17:00)
== END 2021-06-01 12:38 | disposition home health service (06) | DRG 291 ==
LOC: EDUNIT# 20:24 → ER 20:25 → CSD 22:55
PROVIDERS: ADMIT Family Medicine; ATTEND Family Medicine
PROC: 8E0ZXY6 Isolation (ICD-10-PCS; principal; 2021-05-29)
PROC: 5A09357 Assistance with Respiratory Ventilation, Less than 24 Consecutive Hours, Continuous Positive Airway Pressure (ICD-10-PCS; 2021-05-31)
DX: I13.0 Hypertensive heart and chronic kidney disease with heart failure and stage 1 through stage 4 chronic kidney disease, or unspecified chronic kidney disease (principal); I50.33 Acute on chronic diastolic (congestive) heart failure; J96.21 Acute and chronic respiratory failure with hypoxia; J44.1 Chronic obstructive pulmonary disease with (acute) exacerbation; E11.22 Type 2 diabetes mellitus with diabetic chronic kidney disease; N18.30 Chronic kidney disease, stage 3 unspecified; E11.40 Type 2 diabetes mellitus with diabetic neuropathy, unspecified; I25.119 Atherosclerotic heart disease of native coronary artery with unspecified angina pectoris; Z20.822 Contact with and (suspected) exposure to COVID-19; K21.9 Gastro-esophageal reflux disease without esophagitis; F41.9 Anxiety disorder, unspecified; M71.21 Synovial cyst of popliteal space [Baker], right knee; E66.9 Obesity, unspecified; G47.30 Sleep apnea, unspecified; I08.1 Rheumatic disorders of both mitral and tricuspid valves; E78.00 Pure hypercholesterolemia, unspecified; E78.2 Mixed hyperlipidemia; I65.23 Occlusion and stenosis of bilateral carotid arteries; Z68.36 Body mass index [BMI] 36.0-36.9, adult; Z91.19 Patient's noncompliance with other medical treatment and regimen; Z79.4 Long term (current) use of insulin; Z79.01 Long term (current) use of anticoagulants; Z79.02 Long term (current) use of antithrombotics/antiplatelets; Z79.52 Long term (current) use of systemic steroids; Z79.84 Long term (current) use of oral hypoglycemic drugs; Z88.6 Allergy status to analgesic agent; Z91.012 Allergy to eggs; Z88.5 Allergy status to narcotic agent; Z91.010 Allergy to peanuts; Z88.2 Allergy status to sulfonamides; Z88.8 Allergy status to other drugs, medicaments and biological substances; Z91.018 Allergy to other foods; Z83.3 Family history of diabetes mellitus; Z82.49 Family history of ischemic heart disease and other diseases of the circulatory system
CPT/HCPCS: 36415; 71045; 71275; 80048; 80053; 80320; 81000; 82550; 82553; 82805; 82947; 83605; 83690; 83735; 83874; 83880; 84145; 84484; 85025; 85027; 85379; 85610; 85652; 85730; 86141; 87040; 87077; 87088; 87636; 93005; 93041; 93306; 93970; 94640; 94760

== ENCOUNTER → 2021-06-05 | Outpatient (CLI) | payer MEDICARE, MEDICAID ==
[~2021-06-05] MED LIST changes: +ALB0.5V INH; +DAPA10TA PO; +DICL100G13 TP; +HYDR-3817 PO; +HYDR50CA3 PO; +MECL-149 PO
== END ==
LOC: WOUNDCARE 13:42
PROVIDERS: ATTEND Family Medicine
DX: E11.621 Type 2 diabetes mellitus with foot ulcer (principal); L97.511 Non-pressure chronic ulcer of other part of right foot limited to breakdown of skin; E11.65 Type 2 diabetes mellitus with hyperglycemia; E11.610 Type 2 diabetes mellitus with diabetic neuropathic arthropathy; I25.10 Atherosclerotic heart disease of native coronary artery without angina pectoris; I89.0 Lymphedema, not elsewhere classified; I96 Gangrene, not elsewhere classified
CPT/HCPCS: 11042; G0463

== ENCOUNTER 2021-06-11 12:52 | Inpatient (IN) | payer MEDICARE, MEDICAID ==
[~2021-06-11] VITALS: Ht 182 cm; Wt 130.4 kg
[2021-06-11] MEDS ORDERED: PROPOFOL DRIP (ICU) 100 ML IV SCH (13:30)
[2021-06-11 13:41] LABS: BASOPHILS # (AUTO) 0.1 10^3/uL (0.0-0.1); BASOPHILS % (AUTO) 0 % (0-10); EOSINOPHILS # (AUTO) 0.6 10^3/uL (0.0-0.3); EOSINOPHILS % (AUTO) 4 % (0-10); HEMATOCRIT 36 % (40-54); HEMOGLOBIN 10.3 g/dL (13.3-17.7); LYMPHOCYTES # (AUTO) 4.6 10^3/uL (1.0-4.0); LYMPHOCYTES % (AUTO) 33 % (12-44); MEAN CORPUSCULAR HEMOGLOBIN 27 pg (25-34); MEAN CORPUSCULAR HGB CONC 29 g/dL (32-36); MEAN CORPUSCULAR VOLUME 93 fL (80-99); MEAN PLATELET VOLUME 9.6 fL (9.0-12.2); MONOCYTES # (AUTO) 1.3 10^3/uL (0.0-1.0); MONOCYTES % (AUTO) 9 % (0-12); NEUTROPHILS # (AUTO) 7.4 10^3/uL (1.8-7.8); NEUTROPHILS % (AUTO) 53 % (42-75); PLATELET COUNT 476 10^3/uL (130-400); WHITE BLOOD COUNT 14.1 10^3/uL (4.3-11.0)
--- NOTE | 2021-06-11 13:42 | Anesthesia-Procedure Note ---
Procedures/Interventions Procedure Start/Stop/Diagnosis Date of Procedure: Jun 11, 2021 Start Time: 14:25 Referring Physician: Christi Preprocedural Diagnosis: unresposive/respiratory failure Brief History Called to assist with intubation in ER. Upon my arrival, patient receiving PPV via ambu bag, with SPO2 70's. Abdomen noticeably distended, and vomited present all over patients face/neck/chest/and oropharynx that occurred during previous intubation attempts. Care assumed. Oropharynx suctioned, plata placed with immediate obstruction of video view by vomitus, removed and wiped, and replaced with grade 1 view. ETT passed with ease. Positive color change with ETCO2 detector and bilateral breath sounds with ETT secured at 22cm@ teeth. Immediate return of vomit in ETT with positive pressure ventilation, to confirm aspiration of gastric contents. Patient oxygen saturation returned to 98% shortly after intubation. RT actively suctioning ETT. Dr. Armendariz at bedside to reassume care of this patient. Stable upon my exit. Stop Time: 14:30 Intubation RSI: No 100% pre-Ox, [id number]: Yes Intubation Method: orotracheal Videoscope used: Yes (plata x ) Grade View: 1 Mask Ventilation: positive Positive End Tide CO2: Yes Breath Sounds after Intubation: bilateral-equal ETT Securred @ (cm): 22 Intubated with ease: Yes Intubation Complications: apparent aspiration JOSE BAEZ CRNA Jun 11, 2021 13:42
[2021-06-11 13:45] LABS: ALBUMIN 3.4 GM/DL (3.2-4.5)
[2021-06-11 13:46] LABS: POTASSIUM 5.3 MMOL/L (3.6-5.0)
[2021-06-11 13:47] LABS: CALCIUM 9.4 MG/DL (8.5-10.1); INR 1.2 (0.8-1.4); PROTHROMBIN TIME PATIENT 16.1 SEC (12.2-14.7)
[2021-06-11 13:48] LABS: TOTAL PROTEIN 6.9 GM/DL (6.4-8.2)
[2021-06-11 13:50] LABS: BILIRUBIN,TOTAL 0.2 MG/DL (0.1-1.0)
[2021-06-11 13:52] VITALS: BP 100/53
[2021-06-11 13:52] LABS: CREATININE SERUM 1.81 MG/DL (0.60-1.30)
[2021-06-11 13:54] LABS: MAGNESIUM 2.3 MG/DL (1.6-2.4)
[2021-06-11 14:26] LABS: EOSINOPHILS % (MANUAL) 1 %; LYMPHOCYTES % (MANUAL) 33 %; MONOCYTES % (MANUAL) 5 %; NEUTROPHILS % (MANUAL) 61 %; RBC MORPH NORMAL
--- NOTE | 2021-06-11 14:29 | Diagnostic Imaging Report ---
PROCEDURE: CT head without contrast. TECHNIQUE: Multiple contiguous axial images were obtained through the brain without the use of intravenous contrast. Auto Exposure Controls were utilized during the CT exam to meet ALARA standards for radiation dose reduction. INDICATION: Patient is unresponsive. COMPARISON: Exam compared with head CT from 12/31/2020. FINDINGS: There is no intracranial hemorrhage, hydrocephalus, edema, mass, mass effect nor evidence for elevation of the intracerebral pressures. The basilar cisterns are patent and there is no sulcal effacement. There is no loss of the normal beltran-white matter differentiations. No abnormal extra-axial fluid collection. The orbits are unremarkable. There is paranasal sinus air-fluid levels and membrane thickening, compatible with severe paranasal sinusitis, this is a new finding. The mastoids remain clear. IMPRESSION: Stable unremarkable appearance of the brain, however severe paranasal sinusitis noted. Dictated by: Dictated on workstation # [id number]
[2021-06-11] MEDS ORDERED: NS IV 1000 ML 1,000 ML IV SCH (14:30)
[2021-06-11] MEDS ORDERED: MEROPENEM 1,000 MG in NS (IVPB) 100 ML IV ONE (14:30)
[2021-06-11 14:31] LABS: BILIRUBIN,URINE NEGATIVE (NEGATIVE); CLARITY,URINE CLOUDY; COLOR,URINE YELLOW; GLUCOSE, URINE (UA) 3+ (NEGATIVE); KETONES,URINE NEGATIVE (NEGATIVE); LEUKOCYTE ESTERASE ,URINE NEGATIVE (NEGATIVE); NITRITE,URINE NEGATIVE (NEGATIVE); PROTEIN,URINE 2+ (NEGATIVE)
--- NOTE | 2021-06-11 14:31 | Diagnostic Imaging Report ---
INDICATION: Intubated. Time of Exam: 1:56 PM Correlation is made with prior chest 05/30/2021. ET tube is above the anthony. There is a pacer overlying left hemithorax. There appears to be infiltrates throughout the right lung, new since prior study. There may be some infiltrate left upper lung as well. No significant effusion or pneumothorax is seen. IMPRESSION: 1. ET tube placement with tip above the anthony. 2. Developing infiltrate throughout the right lung since exam from 05/30/2021. Dictated by: Dictated on workstation # [id number]
--- NOTE | 2021-06-11 14:36 | Diagnostic Imaging Report ---
PROCEDURE: CT chest without contrast. TECHNIQUE: Multiple contiguous axial images were obtained through the chest without the use of intravenous contrast. Auto Exposure Controls were utilized during the CT exam to meet ALARA standards for radiation dose reduction. INDICATION: Unresponsive patient on ventilator. COMPARISON: CT angio chest performed 05/29/2021. FINDINGS: An ET tube is in the midthoracic trachea. There are diffuse 5 lobe new groundglass pulmonary opacities. In addition, there are multiple areas of dense parenchymal consolidation and bronchograms most notably involving the right upper lobe dependently and throughout the bilateral lower lobes. There is no substantial volume loss to suggest atelectasis as a significant component and florid pneumonia is presumed. There is no pneumothorax. There are no findings of pulmonary abscess. No substantial pleural fluid. There are coronary artery atherosclerotic vascular calcifications. There is no pericardial effusion. The visualized upper abdomen shows no free fluid or free air. IMPRESSION: 1. Diffuse 5 lobe groundglass opacities throughout the lungs as well as marked profound areas of dense airless consolidation in the bilateral lower lobes in the right upper lobe. Findings are presumed to reflect florid pneumonia. 2. No findings of pulmonary abscess, empyema, pneumothorax or pneumomediastinum. Dictated by: Dictated on workstation # [id number]
[2021-06-11 14:38] LABS: BACTERIA,URINE FEW /HPF; RBC,URINE >100 /HPF; WBC,URINE 0-2 /HPF
[2021-06-11 14:43] LABS: ABG BASE EXCESS -2.6 MMOL/L (-2.5-2.5); ABG OXYGEN SATURATION 88 % (94-100); ABG PCO2 70 MMHG (35-45); ABG PO2 64 MMHG (79-93); ABG TCO2 27.6 MMOL/L (21.0-31.0)
[2021-06-11 14:47] LABS: ABG PH 7.17 (7.37-7.43)
[2021-06-11 14:48] LABS: ALLENS TEST YES-POS; INSPIRED O2 100%; PATIENT TEMP 35.2; VENTILATOR YES
[2021-06-11 14:49] LABS: AMPHETAMINE SCREEN, URINE NEGATIVE (NEGATIVE); BARBITURATE SCREEN URINE NEGATIVE (NEGATIVE); BENZODIAZEPINES SCREEN URINE NEGATIVE (NEGATIVE); CANNABINOID SCREEN, URINE NEGATIVE (NEGATIVE); COCAINE SCREEN URINE NEGATIVE (NEGATIVE); METHADONE STAT NEGATIVE (NEGATIVE); OPIATE SCREEN URINE POSITIVE (NEGATIVE); OXYCODONE STAT NEGATIVE (NEGATIVE); PROPOXYPHENE STAT NEGATIVE (NEGATIVE); TRICYCLIC ANTIDEPRESSANTS SCRE NEGATIVE (NEGATIVE)
[2021-06-11 15:09] LABS: INR 1.2 (0.8-1.4); PROTHROMBIN TIME PATIENT 15.9 SEC (12.2-14.7)
[2021-06-11] MEDS ORDERED: NOREPINEPHRINE 8 MG/250 ML 250 ML IV ONE (15:24)
[2021-06-11] MEDS ORDERED: NOREPINEPHRINE 8 MG/250 ML 250 ML IV SCH (15:30)
--- NOTE | 2021-06-11 15:34 | ED General ---
General Chief Complaint: Unresponsive Stated Complaint: UNRESPONSIVE Nursing Triage Note: PT BROUHGT IN BY [facility] FROM HOME WITH COMPLAINT OF UNREPONSIVE AND AGONAL BREATHING. PT CALLED 911 FOR CP AND SOA. WHEN EMS ARRIVED ON SCENE, PT WAS UNRESPONSIVE AND AGONAL BREATHING. PT BEING BAGGED BY EMS ON ARRIVAL, SATS 52%. BS 250. Source of Information: EMS, Old Records Exam Limitations: No Limitations History of Present Illness Date Seen by Provider: Jun 11, 2021 Time Seen by Provider: 12:53 Initial Comments This is 60-year-old gentleman presents to the emergency room in an unresponsive state via EMS. The 911 call was for chest pain and shortness of air. On arrival patient was found to be unresponsive with agonal breathing. Ventilation was provided by BVM in the field. He arrives with significant hypoxia with ox ygen saturations in the 50s and 60s. Patient is known to have coronary artery disease and a history of flash pulmonary edema causing a code scenario. He was recently admitted to this facility for respiratory failure, CHF, and other conditions. Blood sugar was 250. Babaks IRMA is his cousin Reji Hale - [phone]. Allergies and Home Medications Allergies Coded Allergies: aspirin (Verified Allergy, Severe, 12/10/17) egg (Verified Allergy, Intermediate, Vomiting, 03/21/20) Penicillins (Unverified Allergy, Unknown, 07/19/13) Sulfa (Sulfonamide Antibiotics) (Unverified Allergy, Unknown, 07/19/13) lidocaine (Verified Allergy, Unknown, 01/06/16) peanut (Unverified Allergy, Unknown, air closes off, 07/19/13) strawberry (Unverified Allergy, Unknown, airway closes off, 07/19/13) codeine (Unverified Adverse Reaction, Mild, NAUSEA, 02/03/14) Uncoded Allergies: ENVIRONMENTAL (Allergy, Unknown, 07/19/13) raw egg whites (Adverse Reaction, Unknown, upset stomach, 12/09/17) Patient Home Medication List Home Medication List Reviewed: Yes Albuterol Sulfate (Albuterol Sulfate) 2.5 Mg/0.5 Ml Vial.neb, 2.5 MG INH BID, (Reported) Entered as Reported by: DEDRICK CARPENTER on 05/30/21 1238 Amlodipine Besylate (Amlodipine Besylate) 10 Mg Tablet, 10 MG PO DAILY, (Reported) Entered as Reported by: DEDRICK CARPENTER on 02/04/19 0837 Atorvastatin Calcium (Lipitor) 40 Mg Tablet, 40 MG PO HS, (Reported) Entered as Reported by: DEDRICK CARPENTER on 02/04/19 0837 Clopidogrel Bisulfate (Plavix) 75 Mg Tablet, 75 MG PO DAILY, (Reported) Entered as Reported by: DEDRICK CARPENTER on 01/03/21 1057 Dapagliflozin Propanediol (Farxiga) 10 Mg Tablet, 10 MG PO DAILY, (Reported) Entered as Reported by: DEDRICK CARPENTER on 05/30/21 1238 Diclofenac Sodium (Diclofenac Sodium) 100 Gm Gel..gram., 2 GM TP TID PRN for PAIN-BREAKTHROUGH, (Reported) Entered as Reported by: DEDRICK CARPENTER on 05/30/21 1238 Duloxetine HCl (Duloxetine HCl) 60 Mg Capsule.dr, 60 MG PO 0900,1700, (Reported) Entered as Reported by: BILL CARIAS on 03/21/20 1545 Furosemide (Furosemide) 40 Mg Tablet, 40 MG PO BID Prescribed by: REZA ADAMS on 06/01/21 1116 Hydrocodone/Acetaminophen (Hydrocodone-Acetamin 7.5-325) 1 Each Tablet, 1 EA PO Q6H PRN for PAIN-MODERATE (5-7), (Reported) Entered as Reported by: DEDRICK CARPENTER on 05/30/21 1238 Hydroxyzine Pamoate (Hydroxyzine Pamoate) 50 Mg Capsule, 50 MG PO 1700, (Reported) Entered as Reported by: DEDRICK CARPENTER on 05/30/21 1238 Insulin Aspart (Novolog Flexpen) 300 Units/3 Ml Solution, 5 UNITS SQ TID, (Reported) Entered as Reported by: DEDRICK CARPENTER on 12/23/20 1515 Insulin Detemir (Levemir Flextouch) 100 Unit/1 Ml Insuln.pen, 15 UNIT SQ BID, (Reported) Entered as Reported by: DEDRICK CARPENTER on 02/04/19 0910 Isosorbide Mononitrate (Isosorbide Mononitrate ER) 30 Mg Tab.er.24h, 30 MG PO DAILY, (Reported) Entered as Reported by: DEDRICK CARPENTER on 01/03/21 1057 Losartan Potassium (Losartan Potassium) 100 Mg Tablet, 100 MG PO DAILY, (Report ed) Entered as Reported by: DEDRICK CARPENTER on 11/11/19 1648 Meclizine HCl (Meclizine HCl) 25 Mg Tablet, 25 MG PO DAILY, (Reported) Entered as Reported by: DEDRICK CARPENTER on 05/30/21 1242 Metoprolol Succinate (Metoprolol Succinate) 100 Mg Tab.er.24h, 100 MG PO DAILY, (Reported) Entered as Reported by: DEDRICK CARPENTER on 01/03/21 1057 Nitroglycerin (Nitroglycerin) 0.4 Mg Tab.subl, 0.4 MG SL UD PRN for CHEST PAIN, (Reported) Entered as Reported by: DEDRICK CARPENTER on 01/03/21 1057 Pantoprazole Sodium (Pantoprazole Sodium) 40 Mg Tablet.dr, 40 MG PO HS, (Reported) Entered as Reported by: DEDRICK CARPENTER on 05/30/21 1238 Potassium Chloride (Potassium Chloride) 10 Meq Tab.er.prt, 10 MEQ PO BID Prescribed by: REZA ADAMS on 06/01/21 1116 Rivaroxaban (Xarelto Tablet) 15 Mg Tablet, 15 MG PO 1700, (Reported) Entered as Reported by: DEDRICK CARPENTER on 01/03/21 1057 Sitagliptin Phos/Metformin HCl (Janumet 50-1,000 mg Tablet) 1 Each Tablet, 1 EACH PO 0900,1700, (Reported) Entered as Reported by: DEDRICK CARPENTER on 02/04/19 0822 Review of Systems Review of Systems Constitutional: see HPI EENTM: no symptoms reported Respiratory: see HPI Cardiovascular: no symptoms reported Gastrointestinal: no symptoms reported Genitourinary: no symptoms reported Musculoskeletal: no symptoms reported Skin: no symptoms reported Psychiatric/Neurological: See HPI Hematologic/Lymphatic: No Symptoms Reported Immunological/Allergic: no symptoms reported Past Zhdxhxw-Evtapm-Wdygup Hx Patient Social History Smoking Status: Unknown if Ever Smoked Smokeless Tobacco Frequency: Unknown if Ever Used Substance use?: Unable to obtain Alcohol Use?: Unable to obtain Pt feels they are or have been: No Immunizations Up To Date Tetanus Booster (TDap): Unknown First/Initial COVID19 Vaccinat: 05/18/2020 Second COVID19 Vaccination Jose: 06/15/2020 Third COVID19 Vaccination Date: 01/30/2021 Seasonal Allergies Seasonal Allergies: Yes Past Medical History Surgery/Hospitalization HX: 12/29/20 HEART CATH WITH STENTS. PREVIOUS STENTS PLACED SUDDEN CARDIAC/RESPIRATORY ARREST 12/2020--INTUBATED Surgeries: Yes (CARPAL TUNNEL RELASE SX, LEFT HAND SURGERY, L FOOT, EGD/COLONOSCOPY) Cardiac, Coronary Stent, Gallbladder, Orthopedic, Tonsillectomy Respiratory: Yes (RLL PUL. NODULE--FOLLOWED EVERY 6 MONTHS;INTUBATED 2017/PULM EDEMA/ARF; ) Asthma, Sleep Apnea, COPD Currently Using CPAP: Yes Currently Using BIPAP: No Cardiac: Yes (CAD--STENTS X 3; MR/TR, history of cardiopulmonary arrest 12/2020) Chronic Edema/Swelling, Coronary Artery Disease, High Cholesterol, Hypertension, Irregular Heartbeat, Palpitations, Valvular Heart Disease Neurological: Yes Neuropathy Reproductive Disorders: No Sexually Transmitted Disease: No Genitourinary: No Gastrointestinal: Yes Gastroesophageal Reflux, Polyps, Hiatal Hernia, Ulcer Musculoskeletal: Yes (BILAT CARPAL TUNNEL SURG;L HAND SURG; L FOOT SURG;OSTEOMYELITIS L FOOT) Arthritis Endocrine: Yes (OBESITY) Diabetes, Insulin dep HEENT: No Loss of Vision: Denies Hearing Impairment: Denies Cancer: No Psychosocial: Yes Anxiety Integumentary: Yes Psoriasis Blood Disorders: No Adverse Reaction/Blood Tranf: No Family Medical History Congestive heart failure 19 MOTHER Family history: Arthritis 19 FATHER 19 MOTHER Family history: Cardiovascular disease 19 FATHER 19 MOTHER Family history: Diabetes mellitus 19 FATHER Family history: Glaucoma 19 MOTHER Family history: Hypertension 19 FATHER 19 MOTHER Family history: Osteoporosis 19 MOTHER Hearing loss 19 MOTHER Heart disease 19 FATHER 19 MOTHER Myocardial infarction 19 FATHER 19 MOTHER (DBL BYPASS) Stroke 19 MOTHER (MICRO STROKES) No Family History of: Abdominal aortic aneurysm Culver's disease Alcoholism Aphasia Cancer Cancer of colon Cataract Chest pain Congenital heart disease Cystic fibrosis Dementia Dysphagia Family history: Allergy Family history: Alzheimer's disease Family history: Asthma Family history: Breast disease Family history: Coronary thrombosis Family history: Gastrointestinal disease Family history: Thyroid disorder Headache Hereditary disease History of - anemia History of - disorder History of - respiratory disease History of drug abuse Human immunodeficiency virus (HIV) seropositivity Hypercholesterolemia Infertile Kidney disease Malignant neoplasm of lung Parkinson's disease Prostate cancer Psychotic disorder Seizure disorder Tuberculosis Visual impairment Heart Disease, Diabetes, Hypertension SOCIAL HISTORY: -DENIES SMOKING, BUT PARENTS SMOKED -RARE ETOH -DENIES DRUG USE 12/29/20--CARDIOPULMONARY ARREST -PAST SURGICAL HISTORY: -CARDIAC CATHS--STENTS X 2 IN 2018. -CATH 02/04/19--NO INTERVENTION. HAD PATENT STENT TO LEFT CIRCUMFLEX, WITH COMPLETE OCCLUSION OF LEFT PDA; PATENT STENT TO RCA; MILD DISEASE IN OTHER VESSELS -CATH 12/29/[address] KNIGHT: CONCLUSION: 1. Severe stenosis in the distal circumflex artery successful primary stenting using 2.25 mm x 23 mm skypoint stent expanded to 2.35 mm 2. Patent stent in the proximal circumflex artery with moderate stenosis in the first obtuse marginal branch 3. Patent stent in the proximal LAD with moderate stenosis in the mid LAD 4. Moderate stenosis in the mid right coronary artery with severe stenosis at the distal right PDA that is very small artery for intervention 4. Mildly elevated left ventricular end-diastolic pressure -APPENDECTOMY -EGD'S AND COLONOSCOPIES WITH POLYPECTOMY -BILATERAL CARPAL TUNNEL SURGERY -LEFT HAND SURGERY -LEFT FOOT SURGERY Physical Exam Vital Signs Vital Signs - First Documented Capillary Refill : Less Than 3 Seconds Height, Weight, BMI Height: 5'9.00" Weight: 247lbs. 7.0oz. 112.570031to; 36.99 BMI Method:Stated General Appearance: WD/WN, Other (Unresponsive with respiratory suppression and infrequent spontaneous respirations) HEENT: PERRL/EOMI, Normal ENT Inspection, Other (Mucous membranes moist) Neck: Normal Inspection; No JVD Respiratory: No Accessory Muscle Use, No Respiratory Distress, Other (Infrequent agonal type respirations with coarse rhonchi) Cardiovascular: Regular Rate, Rhythm, No Edema, No Murmur Gastrointestinal: Soft; No Distended Extremity: Normal Inspection, No Pedal Edema Neurologic/Psychiatric: Other (Unresponsive) Skin: Normal Color, Warm/Dry Focused Exam Lactate Level Lactic Acid Level Procedures/Interventions Date of ETT Placement: Jun 11, 2021 Time of ETT Placement: 1324 Intubation Method: orotracheal Tube Size: 7.50 Positive End Tide CO2: Yes Breath Sounds after Intubation: bilateral-equal Intubation Complications: apparent aspiration Progress/Results/Core Measures Suspected Sepsis SIRS Temperature: Pulse: 87 Respiratory Rate: 20 Laboratory Tests 06/11/21 10:58: White Blood Count 14.1H Blood Pressure 100 /53 Mean: 82 Laboratory Tests 06/11/21 10:58: Creatinine 1.81H, INR Comment 1.2, Platelet Count 476H, Total Bilirubin 0.2 Results/Orders Lab Results Laboratory Tests Test 06/11/21 10:58 06/11/21 11:38 Range/Units White Blood Count 14.1 H 4.3-11.0 10^3/uL Red Blood Count 3.88 L 4.30-5.52 10^6/uL Hemoglobin 10.3 L 13.3-17.7 g/dL Hematocrit 36 L 40-54 % Mean Corpuscular Volume 93 80-99 fL Mean Corpuscular Hemoglobin 27 25-34 pg Mean Corpuscular Hemoglobin Concent 29 L 32-36 g/dL Red Cell Distribution Width 16.9 H 10.0-14.5 % Platelet Count 476 H 130-400 10^3/uL Mean Platelet Volume 9.6 9.0-12.2 fL Immature Granulocyte % (Auto) 1 % Neutrophils (%) (Auto) 53 42-75 % Lymphocytes (%) (Auto) 33 12-44 % Monocytes (%) (Auto) 9 0-12 % Eosinophils (%) (Auto) 4 0-10 % Basophils (%) (Auto) 0 0-10 % Neutrophils # (Auto) 7.4 1.8-7.8 10^3/uL Lymphocytes # (Auto) 4.6 H 1.0-4.0 10^3/uL Monocytes # (Auto) 1.3 H 0.0-1.0 10^3/uL Eosinophils # (Auto) 0.6 H 0.0-0.3 10^3/uL Basophils # (Auto) 0.1 0.0-0.1 10^3/uL Immature Granulocyte # (Auto) 0.1 0.0-0.1 10^3/uL Neutrophils % (Manual) 61 % Lymphocytes % (Manual) 33 % Monocytes % (Manual) 5 % Eosinophils % (Manual) 1 % Blood Morphology Comment NORMAL Prothrombin Time 16.1 H 12.2-14.7 SEC INR Comment 1.2 0.8-1.4 Activated Partial Thromboplast Time 50 H 24-35 SEC Sodium Level 142 135-145 MMOL/L Potassium Level 5.3 H 3.6-5.0 MMOL/L Chloride Level 104 98-107 MMOL/L Carbon Dioxide Level 19 L 21-32 MMOL/L Anion Gap 19 H 5-14 MMOL/L Blood Urea Nitrogen 17 7-18 MG/DL Creatinine 1.81 H 0.60-1.30 MG/DL Estimat Glomerular Filtration Rate 42 BUN/Creatinine Ratio 9 Glucose Level 289 H 70-105 MG/DL Calcium Level 9.4 8.5-10.1 MG/DL Corrected Calcium 9.9 8.5-10.1 MG/DL Magnesium Level 2.3 1.6-2.4 MG/DL Total Bilirubin 0.2 0.1-1.0 MG/DL Aspartate Amino Transf (AST/SGOT) 50 H 5-34 U/L Alanine Aminotransferase (ALT/SGPT) 21 0-55 U/L Alkaline Phosphatase 109 40-136 U/L Myoglobin 46.1 10.0-92.0 NG/ML Troponin I < 0.028 <0.028 NG/ML B-Type Natriuretic Peptide 225.7 H <100.0 PG/ML Total Protein 6.9 6.4-8.2 GM/DL Albumin 3.4 3.2-4.5 GM/DL Acetaminophen Level < 10 L 10-30 UG/ML Urine Color YELLOW Urine Clarity CLOUDY Urine pH 6.0 5-9 Urine Specific Monitor 1.020 1.016-1.022 Urine Protein 2+ H NEGATIVE Urine Glucose (UA) 3+ H NEGATIVE Urine Ketones NEGATIVE NEGATIVE Urine Nitrite NEGATIVE NEGATIVE Urine Bilirubin NEGATIVE NEGATIVE Urine Urobilinogen 0.2 < = 1.0 MG/DL Urine Leukocyte Esterase NEGATIVE NEGATIVE Urine RBC (Auto) 3+ H NEGATIVE Urine RBC >100 H /HPF Urine WBC 0-2 /HPF Urine Crystals NONE /LPF Urine Bacteria FEW H /HPF Urine Casts NONE /LPF Urine Mucus NEGATIVE /LPF Urine Culture Indicated CULTURE PENDING Urine Opiates Screen POSITIVE H NEGATIVE Urine Oxycodone Screen NEGATIVE NEGATIVE Urine Methadone Screen NEGATIVE NEGATIVE Urine Propoxyphene Screen NEGATIVE NEGATIVE Urine Barbiturates Screen NEGATIVE NEGATIVE Ur Tricyclic Antidepressants Screen NEGATIVE NEGATIVE Urine Phencyclidine Screen NEGATIVE NEGATIVE Urine Amphetamines Screen NEGATIVE NEGATIVE Urine Methamphetamines Screen NEGATIVE NEGATIVE Urine Benzodiazepines Screen NEGATIVE NEGATIVE Urine Cocaine Screen NEGATIVE NEGATIVE Urine Cannabinoids Screen NEGATIVE NEGATIVE My Orders Medications Given in ED Vital Signs/I&O 06/11/21 06/11/21 06/11/21 12:55 12:55 12:55 Pulse 86 Resp 22 B/P (MAP) 122/62 (82) Pulse Ox 52 O2 Delivery Ambu Bag Ambu Bag Ambu Bag Capillary Refill : Less Than 3 Seconds Blood Pressure Mean: 82 ECG Initial ECG Impression Date: Jun 11, 2021 Initial ECG Impression Time: 13:36 Initial ECG Rate: 94 Initial ECG Rhythm: Normal Sinus Comment Sinus rhythm with no ST elevation or depression. No overt abnormal intervals or axis deviation. Diagnostic Imaging Diagonstic Imaging: Xray Plain Films/CT/US/NM/MRI: chest Comments NAME: DAREN BARRIOS [facility] REC#: [id number] PT STATUS: REG ER : 1960 PHYSICIAN: LEE CARDENAS MD ADMIT DATE: 06/11/21/ER Signed Date of Exam:06/11/21 CHEST 1 VIEW, AP/PA ONLY INDICATION: Intubated. Time of Exam: 1:56 PM Correlation is made with prior chest 05/30/2021. ET tube is above the anthony. There is a pacer overlying left hemithorax. There appears to be infiltrates throughout the right lung, new since prior study. There may be some infiltrate left upper lung as well. No significant effusion or pneumothorax is seen. IMPRESSION: 1. ET tube placement with tip above the anthony. 2. Developing infiltrate throughout the right lung since exam from 05/30/2021. Dictated by: Dictated on workstation # [id number] Dict: 06/11/21 1417 Trans: 06/11/21 1527 [id number] Interpreted by: SHRADDHA ROBERTS MD Electronically signed by: SHRADDHA ROBERTS MD 06/11/21 1527 Diagonstic Imaging: CT Plain Films/CT/US/NM/MRI: head Comments NAME: DAREN BARRIOS [facility] REC#: [id number] PT STATUS: REG ER : 1960 PHYSICIAN: LEE CARDENAS MD ADMIT DATE: 06/11/21/ER Signed Date of Exam:06/11/21 CT HEAD WO PROCEDURE: CT head without contrast. TECHNIQUE: Multiple contiguous axial images were obtained through the brain without the use of intravenous contrast. Auto Exposure Controls were utilized during the CT exam to meet ALARA standards for radiation dose reduction. INDICATION: Patient is unresponsive. COMPARISON: Exam compared with head CT from 12/31/2020. FINDINGS: There is no intracranial hemorrhage, hydrocephalus, edema, mass, mass effect nor evidence for elevation of the intracerebral pressures. The basilar cisterns are patent and there is no sulcal effacement. There is no loss of the normal beltran-white matter differentiations. No abnormal extra-axial fluid collection. The orbits are unremarkable. There is paranasal sinus air-fluid levels and membrane thickening, compatible with severe paranasal sinusitis, this is a new finding. The mastoids remain clear. IMPRESSION: Stable unremarkable appearance of the brain, however severe paranasal sinusitis noted. Dictated by: Dictated on workstation # [id number] Dict: 06/11/21 1412 Trans: 06/11/21 1525 [id number] Interpreted by: ETELVINA SAHA Electronically signed by: ETELVINA SAHA 06/11/21 1525 Diagonstic Imaging: CT Plain Films/CT/US/NM/MRI: chest Comments NAME: [facility] BARRIOS [facility] REC#: [id number] PT STATUS: REG ER : 1960 PHYSICIAN: LEE CARDENAS MD ADMIT DATE: 06/11/21/ER Signed Date of Exam:06/11/21 CT CHEST WO PROCEDURE: CT chest without contrast. TECHNIQUE: Multiple contiguous axial images were obtained through the chest without the use of intravenous contrast. Auto Exposure Controls were utilized during the CT exam to meet ALARA standards for radiation dose reduction. INDICATION: Unresponsive patient on ventilator. COMPARISON: CT angio chest performed 05/29/2021. FINDINGS: An ET tube is in the midthoracic trachea. There are diffuse 5 lobe new groundglass pulmonary opacities. In addition, there are multiple areas of dense parenchymal consolidation and bronchograms most notably involving the right upper lobe dependently and throughout the bilateral lower lobes. There is no substantial volume loss to suggest atelectasis as a significant component and florid pneumonia is presumed. There is no pneumothorax. There are no findings of pulmonary abscess. No substantial pleural fluid. There are coronary artery atherosclerotic vascular calcifications. There is no pericardial effusion. The visualized upper abdomen shows no free fluid or free air. IMPRESSION: 1. Diffuse 5 lobe groundglass opacities throughout the lungs as well as marked profound areas of dense airless consolidation in the bilateral lower lobes in the right upper lobe. Findings are presumed to reflect florid pneumonia. 2. No findings of pulmonary abscess, empyema, pneumothorax or pneumomediastinum. Dictated by: Dictated on workstation # [id number] Dict: 06/11/21 1416 Trans: 06/11/21 1525 [facility] [id number] Interpreted by: ETELVINA SAHA Electronically signed by: ETELVINA SAHA 06/11/21 1521 Critical Care Note Critical Care Progress Upon arrival patient was patient was being ventilated with BVM and oxygen support. We were gradually improving saturations while preparing for intubation. Patient remained unresponsive despite improving oxygen saturations. Induction was achieved using etomidate 20 mg and succinylcholine 50 mg. Intubation was initially attempted by EMS personnel. This intubation was unsuccessful without color change and with stomach sounds with bag ventilation. There was increasing abdominal distention and any further attempts at respiration were stopped until the ET tube was removed. Repeat doses of etomidate and succinylcholine were required to maintain paralysis. Patient then developed copious emesis with large chunks of unchewed food including whole beans, large chunks of onion, and what appeared to be very large pieces of egg. This made suctioning extremely difficult and manual evacuation of the oropharynx by fingers was necessary. This provider then attempted to intubate numerous times using a variety of methods including traditional laryngoscope and glidescope. Bougie was even attempted once. Although cords were visualized multiple times, the emesis and blood obscured visualization before tube could be properly placed. After several attempts, anesthesia was called in as they were in the facility. BVM ventilation was performed between each intubation attempt to try to maintain saturations. There were multiple desaturations during these events with a few desaturations into the 60s briefly. There was also some mild to moderate bleeding at times. Intubation was eventually successful as performed by anesthesia using fiberoptic scope. Further sedation was needed and was facilitated by propofol boluses of 40 mg x 2 and rocuronium 50 mg x 1. Sedation was maintained on propofol drip. Oxygen saturations were maintained initially at 90% or above. However, oxygen saturations were decreasing with time and we were having difficulty maintaining oxygen saturation greater than 90%. Bronchoscopy is presumed to be necessary given the likelihood of massive aspiration which was also evident on CT scan. Dr. Cummings has been consulted. Dr. Urban was consulted for cardiology as well. At this time a COVID and influenza screen are still pending. EMS reported in retrospect that there was a bottle of hydrocodone/acetaminophen at the bedside. However, a Tylenol level shows no detectable acetaminophen. Overdose of hydrocodone therefore seems very unlikely. D-dimer was noted to be elevated, but patient is on Xarelto based on his medication list. We do not know when his last dose was taken. CT head was negative for acute abnormalities. Meropenem was initiated for treatment of aspiration pneumonia. COVID and influenza screen eventually returned negative. Patient did develop hypotension which did not resolve with a 1 L fluid bolus. Because of his history of congestive failure and pulmonary edema, I did not attempt to provide any more fluid boluses. Levophed drip was initiated and vital signs stabilized. Departure Communication (Admissions) Time/Spoke to Admitting Phy: 13:20 Dr. Sebastian Time/Spoke to Consulting Phy: 11:50 Dr. Urban Impression Primary Impression: Unresponsive episode Additional Impressions: Respiratory failure Qualified Codes: J96.01 - Acute respiratory failure with hypoxia Aspiration into airway Qualified Codes: T17.908A - Unspecified foreign body in respiratory tract, part unspecified causing other injury, initial encounter Acute kidney injury Disposition: ADMITTED INPATIENT Condition: Stable Admissions Decision to Admit Reason: Admit from ER (General) Decision to Admit/Date: Jun 11, 2021 Time/Decision to Admit Time: 13:20 Departure-Patient Inst. Referrals: KATE CORONADO MD (PCP/Family) Primary Care Physician Copy Copies To 1: KATE CORONADO MD, JOSHUA T MD Jun 11, 2021 15:34
[2021-06-11] MEDS ORDERED: ETOMIDATE IV SOLN 20 MG/10 ML VIAL IV ONE (16:07)
[2021-06-11] MEDS ORDERED: ROCURONIUM 10 MG/ML 5 ML SYRINGE IV ONE (16:07)
[2021-06-11] MEDS ORDERED: proPOfol 200 MG/20 ML (DIPRIVAN) VIAL IV ONE (16:07)
[2021-06-11] MEDS ORDERED: SUCCINYLCHOLINE INJ 100 MG/5 ML SYR/VIAL INJ ONE (16:07)
--- NOTE | 2021-06-11 16:18 | Tele-ICU Consult ---
Progress Note 60 Y/O M who called 911. When EMS arrived he was unresponsive with agonal breathing. Intubated in ED but aspirated. Patient has PMH of CAD with stents and on xarelto w/u included CT head:" negative and chest Meropenam started for aspiration PNA. PT 15.9 PLAN: ICU for mechanical ventilation with low volume ARDS protocol (6ml/kg) needs f/u cxr for PNA Hold off on subq heparin in view of xarelto use Focused Exam Lactate Level 06/11/21 14:40: Lactic Acid Level 3.61*H Height, Weight, BMI Height: 5'9.00" Weight: 247lbs. 7.0oz. 112.627238bi; 36.99 BMI Method:Stated Lactic Acid Level Laboratory Tests Test 06/11/21 14:40 Lactic Acid Level 3.61 MMOL/L (0.50-2.00) *H Labs Laboratory Tests 06/11/21 10:58 Results Labs Labs Laboratory Tests 06/11/21 10:58: White Blood Count 14.1H, Red Blood Count 3.88L, Hemoglobin 10.3L, Hematocrit 36L , Mean Corpuscular Volume 93, Mean Corpuscular Hemoglobin 27, Mean Corpuscular Hemoglobin Concent 29L, Red Cell Distribution Width 16.9H, Platelet Count 476H, Mean Platelet Volume 9.6, Immature Granulocyte % (Auto) 1, Neutrophils (%) (Au to) 53, Lymphocytes (%) (Auto) 33, Monocytes (%) (Auto) 9, Eosinophils (%) (Auto) 4, Basophils (%) (Auto) 0, Neutrophils # (Auto) 7.4, Lymphocytes # (Auto) 4.6H, Monocytes # (Auto) 1.3H, Eosinophils # (Auto) 0.6H, Basophils # (Auto) 0.1, Immature Granulocyte # (Auto) 0.1, Neutrophils % (Manual) 61, Lymphocytes % (Manual) 33, Monocytes % (Manual) 5, Eosinophils % (Manual) 1, Blood Morphology Comment NORMAL, Prothrombin Time 16.1H, INR Comment 1.2, Activated Partial Thromboplast Time 50H, Sodium Level 142, Potassium Level 5.3H, Chloride Level 104, Carbon Dioxide Level 19L, Anion Gap 19H, Blood Urea Nitrogen 17, Creatinine 1.81H, Estimat Glomerular Filtration Rate 42, BUN/Creatinine Ratio 9, Glucose Level 289H, Calcium Level 9.4, Corrected Calcium 9.9, Magnesium Level 2.3, Total Bilirubin 0.2, Aspartate Amino Transf (AST/SGOT) 50H, Alanine Aminotransferase (ALT/SGPT) 21, Alkaline Phosphatase 109, Myoglobin 46.1, Troponin I < 0.028, B- Type Natriuretic Peptide 225.7H, Total Protein 6.9, Albumin 3.4, Acetaminophen Level < 10L 06/11/21 11:38: Urine Color YELLOW, Urine Clarity CLOUDY, Urine pH 6.0, Urine Specific [place] 1.020, Urine Protein 2+H, Urine Glucose (UA) 3+H, Urine Ketones NEGATIVE, Urine Nitrite NEGATIVE, Urine Bilirubin NEGATIVE, Urine Urobilinogen 0.2, Urine Leukocyte Esterase NEGATIVE, Urine RBC (Auto) 3+H, Urine RBC >100H, Urine WBC 0- 2, Urine Crystals NONE, Urine Bacteria FEWH, Urine Casts NONE, Urine Mucus NEGATIVE, Urine Culture Indicated CULTURE PENDING, Urine Opiates Screen POSITIVEH, Urine Oxycodone Screen NEGATIVE, Urine Methadone Screen NEGATIVE, Urine Propoxyphene Screen NEGATIVE, Urine Barbiturates Screen NEGATIVE, Ur Tricyclic Antidepressants Screen NEGATIVE, Urine Phencyclidine Screen NEGATIVE, Urine Amphetamines Screen NEGATIVE, Urine Methamphetamines Screen NEGATIVE, Urine Benzodiazepines Screen NEGATIVE, Urine Cocaine Screen NEGATIVE, Urine Cannabinoids Screen NEGATIVE 06/11/21 14:14: 06/11/21 14:36: Blood Gas Puncture Site RT RAD, Blood Gas Patient Temperature 35.2, Arterial Blood pH 7.17*L, Arterial Blood Partial Pressure CO2 70H, Arterial Blood Partial Pressure O2 64L, Arterial Blood HCO3 25, Arterial Blood Total CO2 27.6, Arterial Blood Oxygen Saturation 88L, Arterial Blood Base Excess -2.6L, Kush Test YES-P OS, Blood Gas Ventilator Setting YES, Blood Gas Inspired Oxygen 100% 06/11/21 14:40: Prothrombin Time 15.9H, INR Comment 1.2, D-Dimer 4.60H, Lactic Acid Level 3.61*H HAIM PAREKH MD Jun 11, 2021 16:18
--- NOTE | 2021-06-11 17:05 | Consultation-Cardiology ---
HPI-Cardiology Cardiology Consultation: Date of Consultation 06/11/21 Time Seen by a Provider: 16:40 Date of Admission Attending Physician Garret Sebastian MD Admitting Physician Socrates Hurtado MD Consulting Physician ALEXANDER CATES MD, MA, FACP, FACC, [facility], CCDS HPI: Chief Complaint: Reason for Card consult: Ac resp failure 60 yo man who is reported to have called the ambulance for chest discomfort and was found to be in ac resp failure at the time EMT arrived; aspirated while being intubated. Currently, on [facility] vent. Unable to provide any history Review of Systems-Cardiology Review of Systems Constitutional: other (pt is unable to communicate) YWK-Neitqb-Bhxvkv Hx Patient Social History Smoking Status: Unknown if Ever Smoked 2nd Hand Smoke Exposure: Yes (PARENTS SMOKED) Have you traveled recently?: No Alcohol Use?: Unable to obtain Pt feels they are or have been: No Immunizations Up To Date Tetanus Booster (TDap): Unknown Date of Pneumonia Vaccine: Aug 18, 2013 Past Medical History PMH As described under Assessment. Family Medical History Family History: Congestive heart failure 19 MOTHER Family history: Arthritis 19 FATHER 19 MOTHER Family history: Cardiovascular disease 19 FATHER 19 MOTHER Family history: Diabetes mellitus 19 FATHER Family history: Glaucoma 19 MOTHER Family history: Hypertension 19 FATHER 19 MOTHER Family history: Osteoporosis 19 MOTHER Hearing loss 19 MOTHER Heart disease 19 FATHER 19 MOTHER Myocardial infarction 19 FATHER 19 MOTHER (DBL BYPASS) Stroke 19 MOTHER (MICRO STROKES) No Family History of: Abdominal aortic aneurysm Sony's disease Alcoholism Aphasia Cancer Cancer of colon Cataract Chest pain Congenital heart disease Cystic fibrosis Dementia Dysphagia Family history: Allergy Family history: Alzheimer's disease Family history: Asthma Family history: Breast disease Family history: Coronary thrombosis Family history: Gastrointestinal disease Family history: Thyroid disorder Headache Hereditary disease History of - anemia History of - disorder History of - respiratory disease History of drug abuse Human immunodeficiency virus (HIV) seropositivity Hypercholesterolemia Infertile Kidney disease Malignant neoplasm of lung Parkinson's disease Prostate cancer Psychotic disorder Seizure disorder Tuberculosis Visual impairment Allergies and Home Medications Allergies Coded Allergies: aspirin (Verified Allergy, Severe, 12/10/17) egg (Verified Allergy, Intermediate, Vomiting, 03/21/20) Penicillins (Unverified Allergy, Unknown, 07/19/13) Sulfa (Sulfonamide Antibiotics) (Unverified Allergy, Unknown, 07/19/13) lidocaine (Verified Allergy, Unknown, 01/06/16) peanut (Unverified Allergy, Unknown, air closes off, 07/19/13) strawberry (Unverified Allergy, Unknown, airway closes off, 07/19/13) codeine (Unverified Adverse Reaction, Mild, NAUSEA, 02/03/14) Uncoded Allergies: ENVIRONMENTAL (Allergy, Unknown, 07/19/13) raw egg whites (Adverse Reaction, Unknown, upset stomach, 12/09/17) Patient Home Medication List Home Medication List Reviewed: Yes Albuterol Sulfate (Albuterol Sulfate) 2.5 Mg/0.5 Ml Vial.neb, 2.5 MG INH BID, (Reported) Entered as Reported by: DEDRICK CARPENTER on 05/30/21 1238 Amlodipine Besylate (Amlodipine Besylate) 10 Mg Tablet, 10 MG PO DAILY, (Reported) Entered as Reported by: DEDRICK CARPENTER on 02/04/19 0837 Atorvastatin Calcium (Lipitor) 40 Mg Tablet, 40 MG PO HS, (Reported) Entered as Reported by: DEDRICK CARPENTER on 02/04/19 0837 Clopidogrel Bisulfate (Plavix) 75 Mg Tablet, 75 MG PO DAILY, (Reported) Entered as Reported by: DEDRICK CARPENTER on 01/03/21 1057 Dapagliflozin Propanediol (Farxiga) 10 Mg Tablet, 10 MG PO DAILY, (Reported) Entered as Reported by: DEDRICK CARPENTER on 05/30/21 1238 Diclofenac Sodium (Diclofenac Sodium) 100 Gm Gel..gram., 2 GM TP TID PRN for PAIN-BREAKTHROUGH, (Reported) Entered as Reported by: DEDRICK CARPENTER on 05/30/21 1238 Duloxetine HCl (Duloxetine HCl) 60 Mg Capsule.dr, 60 MG PO 0900,1700, (Reported) Entered as Reported by: BILL CARIAS on 03/21/20 1545 Furosemide (Furosemide) 40 Mg Tablet, 40 MG PO BID Prescribed by: REZA ADAMS on 06/01/21 1116 Hydrocodone/Acetaminophen (Hydrocodone-Acetamin 7.5-325) 1 Each Tablet, 1 EA PO Q6H PRN for PAIN-MODERATE (5-7), (Reported) Entered as Reported by: DEDRICK CARPENTER on 05/30/21 1238 Hydroxyzine Pamoate (Hydroxyzine Pamoate) 50 Mg Capsule, 50 MG PO 1700, (Reported) Entered as Reported by: DEDRICK CARPENTER on 05/30/21 1238 Insulin Aspart (Novolog Flexpen) 300 Units/3 Ml Solution, 5 UNITS SQ TID, (Reported) Entered as Reported by: DEDRICK CARPENTER on 12/23/20 1515 Insulin Detemir (Levemir Flextouch) 100 Unit/1 Ml Insuln.pen, 15 UNIT SQ BID, (Reported) Entered as Reported by: DEDRICK CARPENTER on 02/04/19 0910 Isosorbide Mononitrate (Isosorbide Mononitrate ER) 30 Mg Tab.er.24h, 30 MG PO DAILY, (Reported) Entered as Reported by: DEDRICK CARPENTER on 01/03/21 1057 Losartan Potassium (Losartan Potassium) 100 Mg Tablet, 100 MG PO DAILY, (Reported) Entered as Reported by: DEDRICK CARPENTER on 11/11/19 1648 Meclizine HCl (Meclizine HCl) 25 Mg Tablet, 25 MG PO DAILY, (Reported) Entered as Reported by: DEDRICK CARPENTER on 05/30/21 1242 Metoprolol Succinate (Metoprolol Succinate) 100 Mg Tab.er.24h, 100 MG PO DAILY, (Reported) Entered as Reported by: DEDRICK CARPENTER on 01/03/21 1057 Nitroglycerin (Nitroglycerin) 0.4 Mg Tab.subl, 0.4 MG SL UD PRN for CHEST PAIN, (Reported) Entered as Reported by: DEDRICK CARPENTER on 01/03/21 1057 Pantoprazole Sodium (Pantoprazole Sodium) 40 Mg Tablet.dr, 40 MG PO HS, (Reported) Entered as Reported by: DEDRICK CARPENTER on 05/30/21 1238 Potassium Chloride (Potassium Chloride) 10 Meq Tab.er.prt, 10 MEQ PO BID Prescribed by: REZA ADAMS on 06/01/21 1116 Rivaroxaban (Xarelto Tablet) 15 Mg Tablet, 15 MG PO 1700, (Reported) Entered as Reported by: DEDRICK CARPENTER on 01/03/21 1057 Sitagliptin Phos/Metformin HCl (Janumet 50-1,000 mg Tablet) 1 Each Tablet, 1 EACH PO 0900,1700, (Reported) Entered as Reported by: DEDRICK CARPENTER on 02/04/19 0822 Physical Exam-Cardiology Physical Exam Vital Signs/I&O 06/11/21 06/11/21 06/11/21 06/11/21 12:55 12:55 12:55 13:30 Pulse 86 88 Resp 22 B/P (MAP) 122/62 (82) Pulse Ox 52 O2 Delivery Ambu Bag Ambu Bag Ambu Bag 06/11/21 06/11/21 06/11/21 06/11/21 13:52 15:36 16:18 16:33 Pulse 87 87 79 82 Resp 20 22 B/P (MAP) 80/47 151/81 120/71 Pulse Ox 86 92 84 O2 Delivery Mechanical Ventilator Mechanical Ventilator O2 Flow Rate 100.00 FiO2 100 06/11/21 16:40 Pulse 82 Capillary Refill : Less Than 3 Seconds Constitutional: other (unresponsive, on mech vent) HEENT: PERRL; No xanthelasmas are seen Neck: carotid pulses are 2 + bilaterally Respiratory: No accessory muscle use; other (fair air entry, scattered rhonchi) Cardiovascular: regular rate-rhythm, S1 and S2, systolic murmur (soft VALENTÍN at card base) Gastrointestinal: soft; No guarding, No rebound; audible bowel sounds Extremities: No clubbing, No cyanosis, No significant edema Neurologic/Psychiatric: other (unresponsive) Skin: No rash on exposed areas, No ulcerations on exposed areas Data Review Labs Laboratory Tests 06/11/21 10:58: White Blood Count 14.1H, Red Blood Count 3.88L, Hemoglobin 10.3L, Hematocrit 36L , Mean Corpuscular Volume 93, Mean Corpuscular Hemoglobin 27, Mean Corpuscular Hemoglobin Concent 29L, Red Cell Distribution Width 16.9H, Platelet Count 476H, Mean Platelet Volume 9.6, Immature Granulocyte % (Auto) 1, Neutrophils (%) (Auto) 53, Lymphocytes (%) (Auto) 33, Monocytes (%) (Auto) 9, Eosinophils (%) (Auto) 4, Basophils (%) (Auto) 0, Neutrophils # (Auto) 7.4, Lymphocytes # (Auto) 4.6H, Monocytes # (Auto) 1.3H, Eosinophils # (Auto) 0.6H, Basophils # (Auto) 0.1, Immature Granulocyte # (Auto) 0.1, Neutrophils % (Manual) 61, Lymphocytes % (Manual) 33, Monocytes % (Manual) 5, Eosinophils % (Manual) 1, Blood Morphology Comment NORMAL, Prothrombin Time 16.1H, INR Comment 1.2, Activated Partial Thromboplast Time 50H, Sodium Level 142, Potassium Level 5.3H, Chloride Level 104, Carbon Dioxide Level 19L, Anion Gap 19H, Blood Urea Nitrogen 17, Creatinine 1.81H, Estimat Glomerular Filtration Rate 42, BUN/Creatinine Ratio 9, Glucose Level 289H, Calcium Level 9.4, Corrected Calcium 9.9, Magnesium Level 2.3, Total Bilirubin 0.2, Aspartate Amino Transf (AST/SGOT) 50H, Alanine Aminotransferase (ALT/SGPT) 21, Alkaline Phosphatase 109, Myoglobin 46.1, Troponin I < 0.028, B- Type Natriuretic Peptide 225.7H, Total Protein 6.9, Albumin 3.4, Acetaminophen Level < 10L 06/11/21 11:38: Urine Color YELLOW, Urine Clarity CLOUDY, Urine pH 6.0, Urine Specific [place] 1.020, Urine Protein 2+H, Urine Glucose (UA) 3+H, Urine Ketones NEGATIVE, Urine Nitrite NEGATIVE, Urine Bilirubin NEGATIVE, Urine Urobilinogen 0.2, Urine Leukocyte Esterase NEGATIVE, Urine RBC (Auto) 3+H, Urine RBC >100H, Urine WBC 0- 2, Urine Crystals NONE, Urine Bacteria FEWH, Urine Casts NONE, Urine Mucus NEGATIVE, Urine Culture Indicated CULTURE PENDING, Urine Opiates Screen POSITIVEH, Urine Oxycodone Screen NEGATIVE, Urine Methadone Screen NEGATIVE, Urine Propoxyphene Screen NEGATIVE, Urine Barbiturates Screen NEGATIVE, Ur Tricyclic Antidepressants Screen NEGATIVE, Urine Phencyclidine Screen NEGATIVE, Urine Amphetamines Screen NEGATIVE, Urine Methamphetamines Screen NEGATIVE, Urine Benzodiazepines Screen NEGATIVE, Urine Cocaine Screen NEGATIVE, Urine Cannabinoids Screen NEGATIVE 06/11/21 14:14: Influenza Type A (RT-PCR) Not Detected, Influenza Type B (RT-PCR) Not Detected, SARS-CoV-2 RNA (RT-PCR) Not Detected 06/11/21 14:36: Blood Gas Puncture Site RT RAD, Blood Gas Patient Temperature 35.2, Arterial Blood pH 7.17*L, Arterial Blood Partial Pressure CO2 70H, Arterial Blood Partial Pressure O2 64L, Arterial Blood HCO3 25, Arterial Blood Total CO2 27.6, Arterial Blood Oxygen Saturation 88L, Arterial Blood Base Excess -2.6L, Kush Test YES- POS, Blood Gas Ventilator Setting YES, Blood Gas Inspired Oxygen 100% 06/11/21 14:40: Prothrombin Time 15.9H, INR Comment 1.2, D-Dimer 4.60H, Lactic Acid Level 3.61*H Laboratory Tests 06/11/21 10:58 A/P-Cardiology Assessment/Admission Diagnosis Ac resp failure, multifactorial - ac diastolic CHF - aspiration pneumonia Ac renal insuff H/o ac on chronic diastolic CHF - Echo 05/31/21: normal LV size, EF 50 to 55%, grade 1 diastolic dysfunction, left atrial dilatation, PA pressure 20 to 25 mmHg H/o chronic stable angina and musculoskeletal pain - Cath 01/08: severe distal right coronary artery disease that was not amenable to intervention, otherwise mild to moderate disease. CAD - cath 01/09/18: proximal circumflex artery stented with [place] 3.012 mm; mid right coronary artery stented with 2.512 mm Rocío; mild to moderate disease in the proximal LAD, severe stenosis at the ostium of first diagonal artery that is very small artery. - cath 02/04/19: total occlusion of the left PDA off the circumflex artery, patent stent in the proximal circumflex. Patent stent in the midright coronary artery. Mild disease in the LAD. - cath 12/29/20: patent stent in the proximal circumflex and right coronary artery. Severe stenosis at the distal circumflex artery, primary stenting using 2.25 x 23 mm expanded to 2.35 mm with excellent results. Has severe s tenosis/subtotal occlusion at the distal right posterior descending artery, very small artery not amenable to intervention. Mild to moderate disease in the LAD. Chronically on Plavix and Xarelto. 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 Diabetes mellitus, h/o DKAs in the past Obesity Discussion and Recomendations * iv diuretic for CHF * Repeat echo * Continue clopidogrel * Change Xarelto to sc enoxaparin * Monitor labs ALEXANDER CATES MD [facility] Jun 11, 2021 17:05
[2021-06-11] MEDS: NOREPINEPHRINE 8 MG/250 ML 250 ML IV SCH ×2 (17:12→19:38)
[2021-06-11 17:46] VITALS: BP 115/70
[2021-06-11] MEDS ORDERED: fentaNYL DRIP PRE-MIX 250 ML IV ONE (17:48)
[2021-06-11] MEDS: fentaNYL DRIP PRE-MIX 250 ML IV SCH (17:49)
[2021-06-11] MEDS: NS IV 1000 ML 1,000 ML IV SCH ×2 (17:49→23:02)
--- NOTE | 2021-06-11 17:52 | Diagnostic Imaging Report ---
EXAMINATION: Chest radiograph, portable AP view. DATE: 06/11/2021 5:47 PM INDICATION: 60-year-old male, central line placement. COMPARISON: June 11, 2021 at 1356 hours. FINDINGS: The endotracheal tube is approximately 7 cm above the anthony. The nasogastric tube extends to the inferior aspect of the included [id number]. There is right internal jugular central venous line overlying the upper SVC. There are wires and leads overlying the patient which do limit the study. Heart size and mediastinal contours appear grossly unchanged. There is no identified pneumothorax. There is no large pleural effusion. There is extensive multifocal bilateral lung consolidation. IMPRESSION: 1. Extensive multifocal bilateral alveolar consolidation in the lungs is mildly increased since the comparison study. 2. Support lines and tubes as above. Dictated by: Dictated on workstation # [id number]
[2021-06-11 18:28] VITALS: BP 117/83
[2021-06-11 20:46] LABS: ABG BASE EXCESS -0.4 MMOL/L (-2.5-2.5); ABG OXYGEN SATURATION 88 % (94-100); ABG PCO2 48 MMHG (35-45); ABG PO2 58 MMHG (79-93); ABG TCO2 26.4 MMOL/L (21.0-31.0)
[2021-06-11 20:55] LABS: ABG PH 7.33 (7.37-7.43); ALLENS TEST POSITIVE; INSPIRED O2 100; PATIENT TEMP 36.2; VENTILATOR YES
[2021-06-11] MEDS: ENOXAPARIN 100 MG/1 ML (LOVENOX) SYR SC SCH (20:57)
--- NOTE | 2021-06-11 21:46 | Consultation - Surgery ---
History of Present Illness History of Present Illness Patient Consulted On(jerome/time) 06/11/21 21:41 Date Seen by Provider: Jun 11, 2021 Time Seen by Provider: 16:45 History of Present Illness Consult by Dr. Sebastian Patient is a 60 year old male who called for ambulance and went into respiratory failure requiring intubation. Difficult intubation and had emesis in which he aspirated. Had CTA chest: FINDINGS: An ET tube is in the midthoracic trachea. There are diffuse 5 lobe new groundglass pulmonary opacities. In addition, there are multiple areas of dense parenchymal consolidation and bronchograms most notably involving the right upper lobe dependently and throughout the bilateral lower lobes. There is no substantial volume loss to suggest atelectasis as a significant component and florid pneumonia is presumed. There is no pneumothorax. There are no findings of pulmonary abscess. No substantial pleural fluid. There are coronary artery atherosclerotic vascular calcifications. There is no pericardial effusion. The visualized upper abdomen shows no free fluid or free air. IMPRESSION: 1. Diffuse 5 lobe groundglass opacities throughout the lungs as well as marked profound areas of dense airless consolidation in the bilateral lower lobes in the right upper lobe. Findings are presumed to reflect florid pneumonia. 2. No findings of pulmonary abscess, empyema, pneumothorax or pneumomediastinum. Allergies and Home Medications Allergies Coded Allergies: aspirin (Verified Allergy, Severe, 12/10/17) egg (Verified Allergy, Intermediate, Vomiting, 03/21/20) Penicillins (Unverified Allergy, Unknown, 07/19/13) Sulfa (Sulfonamide Antibiotics) (Unverified Allergy, Unknown, 07/19/13) lidocaine (Verified Allergy, Unknown, 01/06/16) peanut (Unverified Allergy, Unknown, air closes off, 07/19/13) strawberry (Unverified Allergy, Unknown, airway closes off, 07/19/13) codeine (Unverified Adverse Reaction, Mild, NAUSEA, 02/03/14) Uncoded Allergies: ENVIRONMENTAL (Allergy, Unknown, 07/19/13) raw egg whites (Adverse Reaction, Unknown, upset stomach, 12/09/17) Patient Home Medication List Home Medication List Reviewed: Yes Albuterol Sulfate (Albuterol Sulfate) 2.5 Mg/0.5 Ml Vial.neb, 2.5 MG INH BID, (Reported) Entered as Reported by: DEDRICK CARPENTER on 05/30/21 1238 Amlodipine Besylate (Amlodipine Besylate) 10 Mg Tablet, 10 MG PO DAILY, (Reported) Entered as Reported by: DEDRICK CARPENTER on 02/04/19 0837 Atorvastatin Calcium (Lipitor) 40 Mg Tablet, 40 MG PO HS, (Reported) Entered as Reported by: DEDRICK CARPENTER on 02/04/19 0837 Clopidogrel Bisulfate (Plavix) 75 Mg Tablet, 75 MG PO DAILY, (Reported) Entered as Reported by: DEDRICK CARPENTER on 01/03/21 1057 Dapagliflozin Propanediol (Farxiga) 10 Mg Tablet, 10 MG PO DAILY, (Reported) Entered as Reported by: DEDRICK CARPENTER on 05/30/21 1238 Diclofenac Sodium (Diclofenac Sodium) 100 Gm Gel..gram., 2 GM TP TID PRN for PAIN-BREAKTHROUGH, (Reported) Entered as Reported by: DEDRICK CARPENTER on 05/30/21 1238 Duloxetine HCl (Duloxetine HCl) 60 Mg Capsule.dr, 60 MG PO 0900,1700, (Reported) Entered as Reported by: BILL CARIAS on 03/21/20 1545 Furosemide (Furosemide) 40 Mg Tablet, 40 MG PO BID Prescribed by: REZA ADAMS on 06/01/21 1116 Hydrocodone/Acetaminophen (Hydrocodone-Acetamin 7.5-325) 1 Each Tablet, 1 EA PO Q6H PRN for PAIN-MODERATE (5-7), (Reported) Entered as Reported by: DEDRICK CARPENTER on 05/30/21 1238 Hydroxyzine Pamoate (Hydroxyzine Pamoate) 50 Mg Capsule, 50 MG PO 1700, (Reported) Entered as Reported by: DEDRICK CARPENTER on 05/30/21 1238 Insulin Aspart (Novolog Flexpen) 300 Units/3 Ml Solution, 5 UNITS SQ TID, (Reported) Entered as Reported by: DEDRICK CARPENTER on 12/23/20 1515 Insulin Detemir (Levemir Flextouch) 100 Unit/1 Ml Insuln.pen, 15 UNIT SQ BID, (Reported) Entered as Reported by: DEDRICK CARPENTER on 02/04/19 0910 Isosorbide Mononitrate (Isosorbide Mononitrate ER) 30 Mg Tab.er.24h, 30 MG PO DAILY, (Reported) Entered as Reported by: DEDRICK CARPENTER on 01/03/21 1057 Losartan Potassium (Losartan Potassium) 100 Mg Tablet, 100 MG PO DAILY, (Reported) Entered as Reported by: DEDRICK CARPENTER on 11/11/19 1648 Meclizine HCl (Meclizine HCl) 25 Mg Tablet, 25 MG PO DAILY, (Reported) Entered as Reported by: DEDRICK CARPENTER on 05/30/21 1242 Metoprolol Succinate (Metoprolol Succinate) 100 Mg Tab.er.24h, 100 MG PO DAILY, (Reported) Entered as Reported by: DEDRICK CARPENTER on 01/03/21 1057 Nitroglycerin (Nitroglycerin) 0.4 Mg Tab.subl, 0.4 MG SL UD PRN for CHEST PAIN, (Reported) Entered as Reported by: DEDRICK CARPENTER on 01/03/21 1057 Pantoprazole Sodium (Pantoprazole Sodium) 40 Mg Tablet.dr, 40 MG PO HS, (Reported) Entered as Reported by: DEDRICK CARPENTER on 05/30/21 1238 Potassium Chloride (Potassium Chloride) 10 Meq Tab.er.prt, 10 MEQ PO BID Prescribed by: REZA ADAMS on 06/01/21 1116 Rivaroxaban (Xarelto Tablet) 15 Mg Tablet, 15 MG PO 1700, (Reported) Entered as Reported by: DEDRICK CARPENTER on 01/03/21 1057 Sitagliptin Phos/Metformin HCl (Janumet 50-1,000 mg Tablet) 1 Each Tablet, 1 EACH PO 0900,1700, (Reported) Entered as Reported by: DEDRICK CARPENTER on 02/04/19 0822 Past Tlzbnbl-Iwzrvr-Lqrait Hx Patient Social History Smoking Status: Unknown if Ever Smoked 2nd Hand Smoke Exposure: Yes (PARENTS SMOKED) Recent Hopitalizations: No Alcohol Use?: Unable to obtain Have you traveled recently?: No Immunizations Up To Date Tetanus Booster (TDap): Unknown Date of Pneumonia Vaccine: Aug 18, 2013 Seasonal Allergies Seasonal Allergies: Yes Surgeries History of Surgeries: Yes (CARPAL TUNNEL RELASE SX, LEFT HAND SURGERY, L FOOT, EGD/COLONOSCOPY) Surgeries: Cardiac, Coronary Stent, Gallbladder, Orthopedic, Tonsillectomy Respiratory History of Respiratory Disorde: Yes (RLL PUL. NODULE--FOLLOWED EVERY 6 MONTHS;INTUBATED 2018/PULM EDEMA/ARF; ) Respiratory Disorders: Asthma, Sleep Apnea, COPD Cardiovascular History of Cardiac Disorders: Yes (CAD--STENTS X 3; MR/TR, history of cardiopulmonary arrest 12/2020) Cardiac Disorders: Chronic Edema/Swelling, Coronary Artery Disease, High Cholesterol, Hypertension, Irregular Heartbeat, Palpitations, Valvular Heart Disease Neurological History of Neurological Disord: Yes Neurological Disorders: Neuropathy Reproductive System Hx Reproductive Disorders: No Sexually Transmitted Disease: No Genitourinary History of Genitourinary Disor: No Gastrointestinal History of Gastrointestinal Di: Yes Gastrointestinal Disorders: Gastroesophageal Reflux, Polyps, Hiatal Hernia, Ulcer Musculoskeletal History of Musculoskeletal Dis: Yes (BILAT CARPAL TUNNEL SURG;L HAND SURG; L FOOT SURG;OSTEOMYELITIS L FOOT) Musculoskeletal Disorders: Arthritis Endocrine History of Endocrine Disorders: Yes (OBESITY) Endocrine Disorders: Diabetes, Insulin dep HEENT History of HEENT Disorders: No Loss of Vision: Denies Hearing Impairment: Denies Cancer History of Cancer: No Psychosocial History of Psychiatric Problem: Yes Behavioral Health Disorders: Anxiety Integumentary History of Skin or Integumenta: Yes Skin/Integumentary Disorders: Psoriasis Blood Transfusions History of Blood Disorders: No Adverse Reaction to a Blood Tr: No Reviewed Nursing Assessment Reviewed/Agree w Nursing PMH: Yes Family Medical History Significant Family History: Heart Disease, Diabetes, Hypertension Family Medial History: Congestive heart failure 19 MOTHER Family history: Arthritis 19 FATHER 19 MOTHER Family history: Cardiovascular disease 19 FATHER 19 MOTHER Family history: Diabetes mellitus 19 FATHER Family history: Glaucoma 19 MOTHER Family history: Hypertension 19 FATHER 19 MOTHER Family history: Osteoporosis 19 MOTHER Hearing loss 19 MOTHER Heart disease 19 FATHER 19 MOTHER Myocardial infarction 19 FATHER 19 MOTHER (DBL BYPASS) Stroke 19 MOTHER (MICRO STROKES) No Family History of: Abdominal aortic aneurysm Sony's disease Alcoholism Aphasia Cancer Cancer of colon Cataract Chest pain Congenital heart disease Cystic fibrosis Dementia Dysphagia Family history: Allergy Family history: Alzheimer's disease Family history: Asthma Family history: Breast disease Family history: Coronary thrombosis Family history: Gastrointestinal disease Family history: Thyroid disorder Headache Hereditary disease History of - anemia History of - disorder History of - respiratory disease History of drug abuse Human immunodeficiency virus (HIV) seropositivity Hypercholesterolemia Infertile Kidney disease Malignant neoplasm of lung Parkinson's disease Prostate cancer Psychotic disorder Seizure disorder Tuberculosis Visual impairment Review of Systems-General ROS-Unable to Obtain: intubated and sedated Physical Exam-General Problems Physical Exam Vital Signs Vital Signs - First Documented 06/11/21 06/11/21 06/11/21 13:52 16:33 19:00 Temp 36.0 O2 Flow Rate 100.00 FiO2 100 Capillary Refill : Less Than 3 Seconds General Appearance: other (intubated and sedated) HEENT: normal ENT inspection, other (ET Tube and ng tube) Neck: supple, normal inspection Respiratory: chest non-tender, no respiratory distress, no accessory muscle use Cardiovascular: regular rate, rhythm, no JVD Gastrointestinal: soft; No distended Rectal: deferred Back: normal inspection Extremities: normal inspection (right lower extremity brace) Neurologic/Psychiatric: No alert, No oriented x 3; other (intubated and sedated) Skin: normal color, warm/dry Lymphatic: no adenopathy Data Review Labs Laboratory Tests 06/11/21 10:58: White Blood Count 14.1H, Red Blood Count 3.88L, Hemoglobin 10.3L, Hematocrit 36L , Mean Corpuscular Volume 93, Mean Corpuscular Hemoglobin 27, Mean Corpuscular Hemoglobin Concent 29L, Red Cell Distribution Width 16.9H, Platelet Count 476H, Mean Platelet Volume 9.6, Immature Granulocyte % (Auto) 1, Neutrophils (%) (Auto) 53, Lymphocytes (%) (Auto) 33, Monocytes (%) (Auto) 9, Eosinophils (%) (Auto) 4, Basophils (%) (Auto) 0, Neutrophils # (Auto) 7.4, Lymphocytes # (Auto) 4.6H, Monocytes # (Auto) 1.3H, Eosinophils # (Auto) 0.6H, Basophils # (Auto) 0.1, Immature Granulocyte # (Auto) 0.1, Neutrophils % (Manual) 61, Lymphocytes % (Manual) 33, Monocytes % (Manual) 5, Eosinophils % (Manual) 1, Blood Morphology Comment NORMAL, Prothrombin Time 16.1H, INR Comment 1.2, Activated Partial Thromboplast Time 50H, Sodium Level 142, Potassium Level 5.3H, Chloride Level 104, Carbon Dioxide Level 19L, Anion Gap 19H, Blood Urea Nitrogen 17, Creatinine 1.81H, Estimat Glomerular Filtration Rate 42, BUN/Creatinine Ratio 9, Glucose Level 289H, Calcium Level 9.4, Corrected Calcium 9.9, Magnesium Level 2.3, Total Bilirubin 0.2, Aspartate Amino Transf (AST/SGOT) 50H, Alanine Aminotransferase (ALT/SGPT) 21, Alkaline Phosphatase 109, Myoglobin 46.1, Troponin I < 0.028, B- Type Natriuretic Peptide 225.7H, Total Protein 6.9, Albumin 3.4, Acetaminophen Level < 10L 06/11/21 11:38: Urine Color YELLOW, Urine Clarity CLOUDY, Urine pH 6.0, Urine Specific [place] 1.020, Urine Protein 2+H, Urine Glucose (UA) 3+H, Urine Ketones NEGATIVE, Urine Nitrite NEGATIVE, Urine Bilirubin NEGATIVE, Urine Urobilinogen 0.2, Urine Leukocyte Esterase NEGATIVE, Urine RBC (Auto) 3+H, Urine RBC >100H, Urine WBC 0- 2, Urine Crystals NONE, Urine Bacteria FEWH, Urine Casts NONE, Urine Mucus NEGATIVE, Urine Culture Indicated CULTURE PENDING, Urine Opiates Screen POSITIVEH, Urine Oxycodone Screen NEGATIVE, Urine Methadone Screen NEGATIVE, Urine Propoxyphene Screen NEGATIVE, Urine Barbiturates Screen NEGATIVE, Ur Tricyclic Antidepressants Screen NEGATIVE, Urine Phencyclidine Screen NEGATIVE, Urine Amphetamines Screen NEGATIVE, Urine Methamphetamines Screen NEGATIVE, Urine Benzodiazepines Screen NEGATIVE, Urine Cocaine Screen NEGATIVE, Urine Ca nnabinoids Screen NEGATIVE 06/11/21 14:14: Influenza Type A (RT-PCR) Not Detected, Influenza Type B (RT-PCR) Not Detected, SARS-CoV-2 RNA (RT-PCR) Not Detected 06/11/21 14:36: Blood Gas Puncture Site RT RAD, Blood Gas Patient Temperature 35.2, Arterial Blood pH 7.17*L, Arterial Blood Partial Pressure CO2 70H, Arterial Blood Partial Pressure O2 64L, Arterial Blood HCO3 25, Arterial Blood Total CO2 27.6, Arterial Blood Oxygen Saturation 88L, Arterial Blood Base Excess -2.6L, Kush Test YES- POS, Blood Gas Ventilator Setting YES, Blood Gas Inspired Oxygen 100% 06/11/21 14:40: Prothrombin Time 15.9H, INR Comment 1.2, D-Dimer 4.60H, Lactic Acid Level 3.61*H 06/11/21 17:56: Glucometer 185H 06/11/21 18:00: Lactic Acid Level 1.66 06/11/21 20:34: Blood Gas Puncture Site RIGHT RADIAL, Blood Gas Patient Temperature 36.2, Arterial Blood pH 7.33*L, Arterial Blood Partial Pressure CO2 48H, Arterial Blood Partial Pressure O2 58L, Arterial Blood HCO3 25, Arterial Blood Total CO2 26.4, Arterial Blood Oxygen Saturation 88L, Arterial Blood Base Excess -0.4, Kush Test POSITIVE, Blood Gas Ventilator Setting YES, Blood Gas Inspired Oxygen 100 Assessment/Plan Assessment/Plan Assessment/Plan acute respiratory failure aspiration hypotension limited history and patient intubated due to respiratory failure. on pressor due to hypotension needing IV access for pressors consent obtained for central line placement and for bronchoscopy due to aspiration of vomitus and food particulate during intubation to try and improve air exchange. continue medical management bronch to be performed all other indicated procedures may need further bronchoscopies as well PROCEDURE: Right U/s guided IJ vein central line placement. Right neck prepped and draped in sterile fashion. U/s used to locate right IJ and guided needle to access. Dark nonpulsatile blood returned. Wire was inserted and needle was removed. 11 Blade was used to make small skin incision and dilator advance over wire and removed. Triple lumen catheter was then advanced over the wire and wire removed. All ports accessed and flushed. Catheter secured and sterile bandage applied. Chest x ray pending. FAM RODRIGUEZ DO Jun 11, 2021 21:46
[2021-06-11 22:14] VITALS: BP 107/66
[2021-06-11] MEDS: MEROPENEM 500 MG/NS 100 ML IVPB IV SCH ×2 (23:02)
[2021-06-11] MEDS: inSUlin ASPART (NovoLOG) 1 UNIT/0.01 ML (CHARGE PER UNIT) SC SCH (23:40)
[2021-06-12] MEDS: NOREPINEPHRINE 8 MG/250 ML 250 ML IV SCH ×2 (01:46→13:08)
--- NOTE | 2021-06-12 02:28 | OPERATIVE REPORT ---
DATE OF SERVICE: 06/11/2021 PREOPERATIVE DIAGNOSIS: Aspiration respiratory failure. POSTOPERATIVE DIAGNOSIS: Aspiration respiratory failure with food particulate aspirated. PROCEDURE: Bronchoscopy with bilateral washings and removal of foreign body. SURGEON: Fam Cummings DO ANESTHESIA: Propofol sedation. INDICATIONS: The patient is a 60-year-old male who had respiratory failure, being intubated and had aspiration with food particulate aspirated as well that was visualized during intubation. The patient is on the ventilator, oxygen saturation is slightly decreased. I was asked to see the patient to perform bronchoscopy. Consent was signed and on the chart. DESCRIPTION OF PROCEDURE: The patient was in the Intensive Care Unit. Bronchoscope was inserted through the endotracheal tube into the trachea, which was above the anthony. Visualization of aspirated fluid and food particles present in both the right and left mainstem. This was began suctioning and obtaining the food particulate had to be brought out through the endotracheal tube. Scope was continued to be inserted and retracted multiple times in order to remove. Once this was evacuated, was inserted in bilateral mainstems and then suctioned, removing any other particulate. The scope was inserted down the left mainstem and continued to suction and irrigate left bronchus and secondary bronchi. Scope was directed back and inserted into the right mainstem and secondary bronchus and suctioned as well. No other food particulate able to be visualized. No other fluid collections were able to be visualized. Scope was then slowly retracted back until completely removed, noting no other pathology. The patient continues to be intubated in the Intensive Care Unit in critical condition. Job ID: [id number] DocumentID: [id number] Dictated Date: 06/11/2021 22:12:27 Carpet Inspector Date: 06/12/2021 02:28:06 Dictated By: FAM CUMMINGS DO
[2021-06-12 02:38] LABS: BASOPHILS % (AUTO) 0 % (0-10); EOSINOPHILS # (AUTO) 0.1 10^3/uL (0.0-0.3); EOSINOPHILS % (AUTO) 1 % (0-10); HEMATOCRIT 30 % (40-54); HEMOGLOBIN 9.2 g/dL (13.3-17.7); LYMPHOCYTES # (AUTO) 0.6 10^3/uL (1.0-4.0); LYMPHOCYTES % (AUTO) 9 % (12-44); MEAN CORPUSCULAR HEMOGLOBIN 27 pg (25-34); MEAN CORPUSCULAR HGB CONC 30 g/dL (32-36); MEAN CORPUSCULAR VOLUME 89 fL (80-99); MEAN PLATELET VOLUME 9.7 fL (9.0-12.2); MONOCYTES # (AUTO) 0.3 10^3/uL (0.0-1.0); MONOCYTES % (AUTO) 5 % (0-12); NEUTROPHILS # (AUTO) 5.4 10^3/uL (1.8-7.8); NEUTROPHILS % (AUTO) 84 % (42-75); PLATELET COUNT 434 10^3/uL (130-400); WHITE BLOOD COUNT 6.4 10^3/uL (4.3-11.0)
[2021-06-12 02:47] VITALS: BP 111/61
[2021-06-12 02:50] LABS: POTASSIUM 3.8 MMOL/L (3.6-5.0)
[2021-06-12 02:51] LABS: ABG BASE EXCESS 0.1 MMOL/L (-2.5-2.5); ABG OXYGEN SATURATION 89 % (94-100); ABG PCO2 46 MMHG (35-45); ABG PH 7.36 (7.37-7.43); ABG PO2 64 MMHG (79-93)
[2021-06-12 02:51] LABS: ALBUMIN 2.7 GM/DL (3.2-4.5)
[2021-06-12 02:52] LABS: CALCIUM 8.3 MG/DL (8.5-10.1)
[2021-06-12 02:53] LABS: TOTAL PROTEIN 5.5 GM/DL (6.4-8.2)
[2021-06-12 02:55] LABS: BILIRUBIN,TOTAL 0.3 MG/DL (0.1-1.0)
[2021-06-12 02:57] LABS: CREATININE SERUM 2.19 MG/DL (0.60-1.30)
[2021-06-12 02:58] LABS: ALLENS TEST POSITIVE; INSPIRED O2 90; PATIENT TEMP 38.2; VENTILATOR YES
[2021-06-12 03:00] LABS: MAGNESIUM 1.6 MG/DL (1.6-2.4)
[2021-06-12] MEDS: MAGNESIUM 1 GM/100 ML IVPB 100 ML IV SCH ×3 (03:01→03:26)
[2021-06-12] MEDS: KCL 20 MEQ TAB (K-DUR) PO SCH (03:01)
[2021-06-12] MEDS: POTASSIUM CL 10MEQ/50ML IVPB 50 ML IV SCH (03:01)
[2021-06-12] MEDS ORDERED: MAGNESIUM 1 GM/100 ML IVPB 200 ML IV ONE (03:24)
[2021-06-12] MEDS: MEROPENEM 500 MG/NS 100 ML IVPB IV SCH ×6 (04:52→22:17)
[2021-06-12] MEDS: NS IV 1000 ML 1,000 ML IV SCH ×2 (04:52→16:44)
[2021-06-12] MEDS: inSUlin ASPART (NovoLOG) 1 UNIT/0.01 ML (CHARGE PER UNIT) SC SCH ×3 (05:02→17:40)
[2021-06-12] MEDS: fentaNYL DRIP PRE-MIX 250 ML IV SCH ×2 (05:34→18:06)
[2021-06-12 06:53] VITALS: BP 106/68
--- NOTE | 2021-06-12 07:31 | Progress Note - Surgery ---
ALESHAJOSE Gloria 06/12/21 0731: Subjective Date Seen by a Provider: Jun 12, 2021 Time Seen by a Provider: 06:40 Subjective/Events-last exam Mr. Laird is being seen s/p bronchoscopy and central line placement secondary to acute respiratory failure. This morning he is intubated and sedated but he was awake, alert, and able to follow commands. He was unable to speak but he communicated via writing on paper. He reported that he cannot see out of his right eye, he has leg pain, he is scared, he is worried about his cat at home, and he wants to be extubated. He also told me via writing that he does not go by [facility] but prefers to go by "[employer]." He had no other complaints. Ventilator settings are as follows: FiO2 80, PEEP 10, TV 450, RR 20. Unable to obtain adequate ROS. Focused Exam Lactate Level 06/11/21 14:40: Lactic Acid Level 3.61*H 06/11/21 18:00: Lactic Acid Level 1.66 Objective Exam Vital Signs Date Time Temp Pulse Resp B/P (MAP) Pulse Ox O2 Delivery O2 Flow Rate FiO2 06/12/21 06:53 96 21 93 80 06/12/21 06:00 98 19 123/65 93 Mechanical Ventilator 80.00 06/12/21 05:33 97 116/63 06/12/21 05:00 97 20 116/63 97 Mechanical Ventilator 80.00 06/12/21 04:00 98 20 114/62 92 Mechanical Ventilator 80.00 06/12/21 03:51 80 06/12/21 03:30 90 Mechanical Ventilator 80 06/12/21 03:25 37.7 98 21 99/64 90 Mechanical Ventilator 80.00 06/12/21 02:57 80 06/12/21 02:55 Mechanical Ventilator 80.00 06/12/21 02:54 80 06/12/21 02:47 98 22 94 90 06/12/21 02:00 99 22 117/64 95 Mechanical Ventilator 90.00 06/12/21 01:46 100 83/46 06/12/21 01:00 100 06/12/21 01:00 99 24 104/67 95 Mechanical Ventilator 90.00 06/12/21 00:00 99 26 112/59 96 Mechanical Ventilator 90.00 06/11/21 23:46 90 06/11/21 23:40 93 Mechanical Ventilator 90 06/11/21 23:00 36.2 100 27 97/68 94 Mechanical Ventilator 90.00 06/11/21 22:28 Mechanical Ventilator 90.00 06/11/21 22:28 90 06/11/21 22:26 90 06/11/21 22:14 101 24 96 100 06/11/21 22:00 101 32 107/57 95 Mechanical Ventilator 100.00 06/11/21 21:00 36.2 106 40 113/63 91 Mechanical Ventilator 100.00 06/11/21 20:58 105 108/65 06/11/21 20:00 105 27 119/78 94 Mechanical Ventilator 100.00 06/11/21 20:00 36.3 06/11/21 19:55 100 06/11/21 19:50 92 Mechanical Ventilator 100 06/11/21 19:40 100 06/11/21 19:38 91 79/60 06/11/21 19:00 100 06/11/21 19:00 82 06/11/21 19:00 36.0 92 45 82/59 92 Mechanical Ventilator 100.00 06/11/21 18:28 95 21 99 100 06/11/21 18:00 115 97/57 91 Mechanical Ventilator 100.00 06/11/21 17:56 115/70 06/11/21 17:46 83 24 84 100 06/11/21 17:16 Mechanical Ventilator 100 06/11/21 17:15 24 06/11/21 17:00 81 139/83 90 Mechanical Ventilator 100.00 06/11/21 16:40 82 06/11/21 16:33 82 120/71 84 Mechanical Ventilator 100.00 06/11/21 16:18 79 22 151/81 92 Mechanical Ventilator 06/11/21 15:36 87 80/47 06/11/21 13:52 87 20 86 100 06/11/21 13:30 88 06/11/21 12:55 Ambu Bag 06/11/21 12:55 86 22 122/62 (82) 52 Ambu Bag 06/11/21 12:55 Ambu Bag I & O 06/12/21 07:00 Intake Total 4290 ml Output Total 2285 ml Balance 2005 ml Capillary Refill : Less Than 3 Seconds General Appearance: WD/WN, Anxious (Patient anxious but alert) HEENT: PERRL/EOMI, Moist Mucous Membranes Neck: Normal Inspection, Non Tender, Other (Right-sided central line) Respiratory: Chest Non Tender, No Accessory Muscle Use, No Respiratory Distress, Rales Cardiovascular: Regular Rate, Rhythm, No Edema, No Murmur Gastrointestinal: non tender, soft Extremity: Normal Range of Motion, Non Tender Neurologic/Psychiatric: Alert, Oriented x3, No Motor/Sensory Deficits, Other (Patient intubated and sedated but still responsive and communicated via writing) Skin: Normal Color, Warm/Dry Results Lab Laboratory Tests 06/11/21 10:58: White Blood Count 14.1H, Red Blood Count 3.88L, Hemoglobin 10.3L, Hematocrit 36L , Mean Corpuscular Volume 93, Mean Corpuscular Hemoglobin 27, Mean Corpuscular Hemoglobin Concent 29L, Red Cell Distribution Width 16.9H, Platelet Count 476H, Mean Platelet Volume 9.6, Immature Granulocyte % (Auto) 1, Neutrophils (%) (Auto) 53, Lymphocytes (%) (Auto) 33, Monocytes (%) (Auto) 9, Eosinophils (%) (Auto) 4, Basophils (%) (Auto) 0, Neutrophils # (Auto) 7.4, Lymphocytes # (Auto) 4.6H, Monocytes # (Auto) 1.3H, Eosinophils # (Auto) 0.6H, Basophils # (Auto) 0.1, Immature Granulocyte # (Auto) 0.1, Neutrophils % (Manual) 61, Lymphocytes % (Manual) 33, Monocytes % (Manual) 5, Eosinophils % (Manual) 1, Blood Morphology Comment NORMAL, Prothrombin Time 16.1H, INR Comment 1.2, Activated Partial Thromboplast Time 50H, Sodium Level 142, Potassium Level 5.3H, Chloride Level 104, Carbon Dioxide Level 19L, Anion Gap 19H, Blood Urea Nitrogen 17, Creatinine 1.81H, Estimat Glomerular Filtration Rate 42, BUN/Creatinine Ratio 9, Glucose Level 289H, Calcium Level 9.4, Corrected Calcium 9.9, Magnesium Level 2.3, Total Bilirubin 0.2, Aspartate Amino Transf (AST/SGOT) 50H, Alanine Aminotransferase (ALT/SGPT) 21, Alkaline Phosphatase 109, Myoglobin 46.1, Troponin I < 0.028, B- Type Natriuretic Peptide 225.7H, Total Protein 6.9, Albumin 3.4, Acetaminophen Level < 10L 06/11/21 11:38: Urine Color YELLOW, Urine Clarity CLOUDY, Urine pH 6.0, Urine Specific Codorus 1.020, Urine Protein 2+H, Urine Glucose (UA) 3+H, Urine Ketones NEGATIVE, Urine Nitrite NEGATIVE, Urine Bilirubin NEGATIVE, Urine Urobilinogen 0.2, Urine Leukocyte Esterase NEGATIVE, Urine RBC (Auto) 3+H, Urine RBC >100H, Urine WBC 0- 2, Urine Crystals NONE, Urine Bacteria FEWH, Urine Casts NONE, Urine Mucus NEGATIVE, Urine Culture Indicated CULTURE PENDING, Urine Opiates Screen POSITIVEH, Urine Oxycodone Screen NEGATIVE, Urine Methadone Screen NEGATIVE, Urine Propoxyphene Screen NEGATIVE, Urine Barbiturates Screen NEGATIVE, Ur Tricyclic Antidepressants Screen NEGATIVE, Urine Phencyclidine Screen NEGATIVE, Urine Amphetamines Screen NEGATIVE, Urine Methamphetamines Screen NEGATIVE, Urine Benzodiazepines Screen NEGATIVE, Urine Cocaine Screen NEGATIVE, Urine Cannabinoids Screen NEGATIVE 06/11/21 14:14: Influenza Type A (RT-PCR) Not Detected, Influenza Type B (RT-PCR) Not Detected, SARS-CoV-2 RNA (RT-PCR) Not Detected 06/11/21 14:36: Blood Gas Puncture Site RT RAD, Blood Gas Patient Temperature 35.2, Arterial Blood pH 7.17*L, Arterial Blood Partial Pressure CO2 70H, Arterial Blood Partial Pressure O2 64L, Arterial Blood HCO3 25, Arterial Blood Total CO2 27.6, Arterial Blood Oxygen Saturation 88L, Arterial Blood Base Excess -2.6L, Kush Test YES- POS, Blood Gas Ventilator Setting YES, Blood Gas Inspired Oxygen 100% 06/11/21 14:40: Prothrombin Time 15.9H, INR Comment 1.2, D-Dimer 4.60H, Lactic Acid Level 3.61*H 06/11/21 17:56: Glucometer 185H 06/11/21 18:00: Lactic Acid Level 1.66 06/11/21 20:34: Blood Gas Puncture Site RIGHT RADIAL, Blood Gas Patient Temperature 36.2, Arterial Blood pH 7.33*L, Arterial Blood Partial Pressure CO2 48H, Arterial Blood Partial Pressure O2 58L, Arterial Blood HCO3 25, Arterial Blood Total CO2 26.4, Arterial Blood Oxygen Saturation 88L, Arterial Blood Base Excess -0.4, Kush Test POSITIVE, Blood Gas Ventilator Setting YES, Blood Gas Inspired Oxygen 100 06/11/21 23:37: Glucometer 203H 06/12/21 02:23: White Blood Count 6.4, Red Blood Count 3.41L, Hemoglobin 9.2L, Hematocrit 30L, Mean Corpuscular Volume 89, Mean Corpuscular Hemoglobin 27, Mean Corpuscular Hemoglobin Concent 30L, Red Cell Distribution Width 17.0H, Platelet Count 434H, Mean Platelet Volume 9.7, Immature Granulocyte % (Auto) 1, Neutrophils (%) (Auto) 84H, Lymphocytes (%) (Auto) 9L, Monocytes (%) (Auto) 5, Eosinophils (%) (Auto) 1, Basophils (%) (Auto) 0, Neutrophils # (Auto) 5.4, Lymphocytes # (Auto) 0.6L, Monocytes # (Auto) 0.3, Eosinophils # (Auto) 0.1, Basophils # (Auto) 0.0, Immature Granulocyte # (Auto) 0.0, Sodium Level 144, Potassium Level 3.8, Chloride Level 109H, Carbon Dioxide Level 20L, Anion Gap 15H, Blood Urea Nitrogen 26H, Creatinine 2.19H, Estimat Glomerular Filtration Rate 34, BUN/Creatinine Ratio 12, Glucose Level 153H, Calcium Level 8.3L, Corrected Calcium 9.3, Phosphorus Level 2.0L, Magnesium Level 1.6, Total Bilirubin 0.3, Aspartate Amino Transf (AST/SGOT) 38H, Alanine Aminotransferase (ALT/SGPT) 25, Alkaline Phosphatase 81, Total Protein 5.5L, Albumin 2.7L, Triglycerides Level 94, Cholesterol Level 65, LDL Cholesterol Direct 15, VLDL Cholesterol 19, HDL Cholesterol 26L 06/12/21 02:45: Blood Gas Puncture Site LEFT RADIAL, Blood Gas Patient Temperature 38.2, Arterial Blood pH 7.36L, Arterial Blood Partial Pressure CO2 46H, Arterial Blood Partial Pressure O2 64L, Arterial Blood HCO3 25, Arterial Blood Total CO2 26.0, Arterial Blood Oxygen Saturation 89L, Arterial Blood Base Excess 0.1, Kush Test POSITIVE, Blood Gas Ventilator Setting YES, Blood Gas Inspired Oxygen 90 06/12/21 05:02: Glucometer 141H Assessment/Plan Assessment/Plan Assessment/Plan Assessment: Acute respiratory failure Aspiration Hypotension HAWK - BUN and Cr 26 and 2.19 Anemia - Hgb 9.2 this morning. Trend. Elevated D-dimer Plan: Continue IVF, pressors, and IV meropenem Central line placed and bronchoscopy performed yesterday Continue medical management as indicated Manage with medicine and EICU Will continue to monitor. May need repeat bronchoscopy. GARRY CUMMINGS DO 06/12/212039: Subjective Subjective/Events-last exam Patient at time my visit intubated and sedated. On pressors. O2 saturation improved from yesterday. No chest x-ray today. No family at bedside. Objective Exam General Appearance: No Apparent Distress, Other (Intubated and sedated) HEENT: Normal ENT Inspection Neck: Normal Inspection, Non Tender, Other (Right IJ central line) Respiratory: Other (Equal chest rise, mechanical ventilation) Cardiovascular: Regular Rate, Rhythm, No JVD Gastrointestinal: non tender, soft Extremity: Normal Capillary Refill, Normal Inspection Neurologic/Psychiatric: No Alert, No Oriented x3, No No Motor/Sensory Deficits; Other (Patient intubated and sedated ) Skin: Normal Color, Warm/Dry Lymphatic: No Adenopathy Assessment/Plan Assessment/Plan Assessment/Plan Acute respiratory failure Aspiration Hypotension HAWK - BUN and Cr 26 and 2.19 Anemia - Hgb 9.2 this morning. Trend. Elevated D-dimer Continue IVF, pressors, and IV meropenem Central line placed and bronchoscopy with removal foreign body particulate performed yesterday Continue medical management as indicated Manage with medicine and EICU Will continue to monitor. May need repeat bronchoscopy. chest x ray in am Supervisory-Addendum Brief Verification & Attestation Participated in pt care: history, MDM, physical Personally performed: exam, history, MDM, supervision of care Care discussed with: Medical Student Procedures: n/a Results interpretation: Verified all documentation Verification and Attestation of Medical Student E/M Service A medical student performed and documented this service in my presence. I reviewed and verified all information documented by the medical student and made modifications to such information, when appropriate. I personally performed the physical exam and medical decision making. Garry Cummings, Jun 12, 2021,20:40 JOSE EDUARDO Jun 12, 2021 07:31 GARRY CUMMINGS DO Jun 12, 2021 20:40
[2021-06-12] MEDS: PANTOPRAZOLE 40 MG (PROTONIX) VIAL IV SCH (07:52)
[2021-06-12] MEDS: CLOPIDOGREL 75 MG (PLAVIX) TABLET PO SCH (07:52)
[2021-06-12] MEDS: ENOXAPARIN 100 MG/1 ML (LOVENOX) SYR SC SCH ×2 (07:52→22:18)
--- NOTE | 2021-06-12 09:26 | Tele-ICU Progress Note ---
Subjective Date Seen by a Provider: Jun 12, 2021 Time Seen by a Provider: 09:26 Sepsis Event Evaluation Height, Weight, BMI Height: 5'9.00" Weight: 247lbs. 7.0oz. 112.335260zt; 36.61 BMI Method:Stated Focused Exam Lactate Level 06/11/21 14:40: Lactic Acid Level 3.61*H 06/11/21 18:00: Lactic Acid Level 1.66 Exam Exam Patient acknowledged, consented, and participated in this virtual visit which was conducted using real time audio/video Vital Signs Date Time Temp Pulse Resp B/P (MAP) Pulse Ox O2 Delivery O2 Flow Rate FiO2 06/12/21 09:00 95 22 121/62 95 Mechanical Ventilator 80.00 06/12/21 08:03 80 06/12/21 08:00 94 20 111/67 91 Mechanical Ventilator 80.00 06/12/21 08:00 37.1 06/12/21 07:55 94 Mechanical Ventilator 80 06/12/21 07:53 94 06/12/21 07:00 95 20 112/65 95 Mechanical Ventilator 80.00 06/12/21 06:53 96 21 93 80 06/12/21 06:00 98 19 123/65 93 Mechanical Ventilator 80.00 06/12/21 05:33 97 116/63 06/12/21 05:00 97 20 116/63 97 Mechanical Ventilator 80.00 06/12/21 04:00 98 20 114/62 92 Mechanical Ventilator 80.00 06/12/21 03:51 80 06/12/21 03:30 90 Mechanical Ventilator 80 06/12/21 03:25 37.7 98 21 99/64 90 Mechanical Ventilator 80.00 06/12/21 02:57 80 06/12/21 02:55 Mechanical Ventilator 80.00 06/12/21 02:54 80 06/12/21 02:47 98 22 94 90 06/12/21 02:00 99 22 117/64 95 Mechanical Ventilator 90.00 06/12/21 01:46 100 83/46 06/12/21 01:00 100 06/12/21 01:00 99 24 104/67 95 Mechanical Ventilator 90.00 06/12/21 00:00 99 26 112/59 96 Mechanical Ventilator 90.00 06/11/21 23:46 90 06/11/21 23:40 93 Mechanical Ventilator 90 06/11/21 23:00 36.2 100 27 97/68 94 Mechanical Ventilator 90.00 06/11/21 22:28 Mechanical Ventilator 90.00 06/11/21 22:28 90 06/11/21 22:26 90 06/11/21 22:14 101 24 96 100 06/11/21 22:00 101 32 107/57 95 Mechanical Ventilator 100.00 06/11/21 21:00 36.2 106 40 113/63 91 Mechanical Ventilator 100.00 06/11/21 20:58 105 108/65 06/11/21 20:00 105 27 119/78 94 Mechanical Ventilator 100.00 06/11/21 20:00 36.3 06/11/21 19:55 100 06/11/21 19:50 92 Mechanical Ventilator 100 06/11/21 19:40 100 06/11/21 19:38 91 79/60 06/11/21 19:00 100 06/11/21 19:00 82 06/11/21 19:00 36.0 92 45 82/59 92 Mechanical Ventilator 100.00 06/11/21 18:28 95 21 99 100 06/11/21 18:00 115 97/57 91 Mechanical Ventilator 100.00 06/11/21 17:56 115/70 06/11/21 17:46 83 24 84 100 06/11/21 17:16 Mechanical Ventilator 100 06/11/21 17:15 24 06/11/21 17:00 81 139/83 90 Mechanical Ventilator 100.00 06/11/21 16:40 82 06/11/21 16:33 82 120/71 84 Mechanical Ventilator 100.00 06/11/21 16:18 79 22 151/81 92 Mechanical Ventilator 06/11/21 15:36 87 80/47 06/11/21 13:52 87 20 86 100 06/11/21 13:30 88 06/11/21 12:55 Ambu Bag 06/11/21 12:55 86 22 122/62 (82) 52 Ambu Bag 06/11/21 12:55 Ambu Bag I & O 06/12/21 07:00 Intake Total 4290 ml Output Total 2285 ml Balance 2005 ml Height & Weight Height: 5'9.00" Weight: 247lbs. 7.0oz. 112.759227pe; 36.61 BMI Method:Stated General Appearance: WD/WN, Anxious (Patient anxious but alert) HEENT: PERRL/EOMI, Moist Mucous Membranes Neck: Normal Inspection, Non Tender, Other (Right-sided central line) Respiratory: Chest Non Tender, No Accessory Muscle Use, No Respiratory Distress, Rales Cardiovascular: Regular Rate, Rhythm, No Edema, No Murmur Capillary Refill: Less Than 3 Seconds Gastrointestinal: non tender, soft Extremity: Normal Range of Motion, Non Tender Neurologic/Psychiatric: Alert, Oriented x3, No Motor/Sensory Deficits, Other (Patient intubated and sedated but still responsive and communicated via writing) Skin: Normal Color, Warm/Dry Results Lab Laboratory Tests 06/11/21 10:58 06/12/21 02:23 Assessment/Plan Assessment/Plan (Tele-ICU Physician , Progress Note ) Available chart/ vitals / labs / Images reviewed Video assessment done using teleICU camera, rest of exam as per RN Discussed with RN , EXAM PER RN Events overnight : Afebrile FiO2 - 80 PEEP 10 I/O = +1500 Drips: Pressors: LEVO 0.1 Sedation gtt: propofol 20 , febt 100 ( RASS -1 ) VENT SETTINGS and ABG reviewed Not candidate for SBT today REVIEWED Cardiovascular Stability / Sedation Score / FI02/PEEP / ABG / CXR Consultants: carri Hospital course: (06/11) 60 Y/O Male admitted for Respiratory arrest. Attempted intubation per EMS with large volume emesis. Intubated in ER. A/P Acute resp failure with PNA - 90% fio2 and PEEP 10 - cont ABX , monitor for VO Bilateral PNA , R>>L , aspiration ( covid , flu NEG ) -MErrem 06/11 - multiple allergies Shock - septic , on LEVO - add albumin Plural effusions - not large by CT 06/11 CAD with stents and on xarelto ( on hold - CPM - EF 50 % recently - AC with yina full dose HAWK - sligthly worse - add colloids x2 Elev ddimer - on full yina dose already Encephalopaty - CTH neg 06/11 - follow commands LArge volume output from OG - cont LIS Anemia - delutional Lines :R IJ 06/11 (Central Line Necessity Reviewed) Thompson: + OG: Nutrition: NPO , LIS Analgesia: Anxiety/ delirium VTE Prophylaxis: yina full dose Stress Ulcer Prophylaxis: ppi Plans in collaboration with bedside consultants and IM MDs. Discussed with RN to reach out if any questions or concerns A total of 35 minutes of critical care time was devoted to this patient today, required to treat and/or prevent further deterioration of critical care condition ( as above) . THOMAS CRUMP MD Jun 12, 2021 09:26
[2021-06-12 10:44] VITALS: BP 118/65
--- NOTE | 2021-06-12 11:00 | Cardiology Progress Note ---
Subjective Date Seen by Provider: Jun 12, 2021 Time Seen by Provider: 10:56 Subjective/Events-last exam Patient was seen at bedside, sedated and intubated, unable to provide any history History was obtained by reviewing his records Review of Systems General: Other (Unable to provide review of system) Focused Exam Lactate Level 06/11/21 14:40: Lactic Acid Level 3.61*H 06/11/21 18:00: Lactic Acid Level 1.66 Objective-Cardiology Exam Last Set of Vital Signs Vital Signs 06/12/21 06/12/21 06/12/21 08:00 10:00 10:44 Temp 37.1 Pulse 94 Resp 20 B/P (MAP) 119/64 Pulse Ox 90 O2 Delivery Mechanical Ventilator O2 Flow Rate 80.00 FiO2 80 I&O Intake and Output 06/12/21 00:00 Intake Total 2330 ml Output Total 765 ml Balance 1565 ml Intake Oral 0 ml IV Total 2300 ml Other 30 ml Output Urine Total 765 ml Daily Weight Change No General: Other (Sedated and intubated) HEENT: Atraumatic Neck: Supple Lungs: Other (Bilateral rhonchi) Heart: Regular Rate, Normal S1, Normal S2 Abdomen: Normal Bowel Sounds Extremities: No Clubbing Skin: No Rashes, No Breakdown Neuro: Other (Sedated and intubated) Psych/Mental Status: Other (Sedated and intubated) Results Lab Laboratory Tests 06/11/21 10:58 06/12/21 02:23 A/P-Cardiology Admission Diagnosis Acute respiratory failure Congestive heart failure, acute on chronic left ventricular diastolic dysfunction, hypertensive heart disease Coronary artery disease Pneumonia Assessment/Plan Acute respiratory failure, ventilator dependent, probably secondary to pneumonia and acute pulmonary edema. Receiving antibiotic. Continue to monitor Congestive heart failure, acute on chronic left ventricular diastolic dysfunction, normal systolic function, last echo was done on May 31, 2021 with ejection fraction 50 to 55%. PA pressure 20 to 25 mmHg. Had mild elevation in BNP. Acute renal insufficiency, continue to monitor renal function Multifocal pneumonia, receiving antibiotics. Managed by primary care physician History of recurrent chest pain, musculoskeletal. Coronary artery disease, - cath 01/09/18: proximal circumflex artery stented with Rocío 3.012 mm; mid right coronary artery stented with 2.512 mm Rocío; mild to moderate disease in the proximal LAD, severe stenosis at the ostium of first diagonal artery that is very small artery. - cath 02/04/19: total occlusion of the left PDA off the circumflex artery, patent stent in the proximal circumflex. Patent stent in the midright coronary artery. Mild disease in the LAD. - cath 12/29/20: patent stent in the proximal circumflex and right coronary artery. Severe stenosis at the distal circumflex artery, primary stenting using 2.25 x 23 mm expanded to 2.35 mm with excellent results. Has severe stenosis/subtotal occlusion at the distal right posterior descending artery, very small artery not amenable to intervention. Mild to moderate disease in the LAD. Patient is maintained on Plavix and Xarelto, he is allergic to aspirin. 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 Diabetes mellitus, h/o DKAs in the past Obesity CROW KNIGHT MD Jun 12, 2021 11:00
[2021-06-12] MEDS: ALBUMIN 25% 25 GM/100 ML 50 ML IV SCH ×2 (13:08→23:03)
[2021-06-12 14:39] VITALS: BP 113/61
--- NOTE | 2021-06-12 15:10 | History & Physical ---
HPI History of Present Illness: 60 yo M that was found unresponsive by EMS. Oxygen saturations in the 50-60s during transport. Unable to gather any information from patient as he is intubated and sedated. HPI gathered from chart reviewed. During intubation patient had large amount of aspiration into the airway that required suction of copious amounts of food material. Oxygen saturations improved after intubation. This AM patient is following commands per nurse when sedation is turned down. He is moving all extremities. He is likely not going to tolerate weaning from ventilator for several more days. Source: RN/MD, EMS notes reviewed Exam Limitations: clinical condition Date seen by provider: Jun 12, 2021 Time Seen by Provider: 11:05 Attending Physician Garret Sebastian MD PCP Socrates Hurtado MD Consult Date of Admission Jun 11, 2021 at 13:20 Home Medications Home Medications Reviewed patient Home Medication Reconciliation performed by pharmacy medication reconciliations machine operator slitter technician and/or nursing. Patients Allergies have been reviewed. Allergies Coded Allergies: aspirin (Verified Allergy, Severe, 12/10/17) egg (Verified Allergy, Intermediate, Vomiting, 03/21/20) Penicillins (Unverified Allergy, Unknown, 07/19/13) Sulfa (Sulfonamide Antibiotics) (Unverified Allergy, Unknown, 07/19/13) lidocaine (Verified Allergy, Unknown, 01/06/16) peanut (Unverified Allergy, Unknown, air closes off, 07/19/13) strawberry (Unverified Allergy, Unknown, airway closes off, 07/19/13) codeine (Unverified Adverse Reaction, Mild, NAUSEA, 02/03/14) Uncoded Allergies: ENVIRONMENTAL (Allergy, Unknown, 07/19/13) raw egg whites (Adverse Reaction, Unknown, upset stomach, 12/09/17) FAC-[id number] Hx Patient Social History Smoking Status: Unknown if Ever Smoked 2nd Hand Smoke Exposure: Yes (PARENTS SMOKED) Recent Hopitalizations: No Alcohol Use?: Unable to obtain Have you traveled recently?: No Immunizations Up To Date Tetanus Booster (TDap): Unknown First/Initial COVID19 Vaccinat: 05/18/2020 Second COVID19 Vaccination Jose: 06/15/2020 Third COVID19 Vaccination Date: 01/30/2021 Past Medical History PMHx: DMII HTN HLD CAD CKD3 CHF Diastolic Atrial fibrillation COPD SurgHx: Cholecystectomy Cardiac stenting x 3 Charcot foot left with partial removal Family Medical History Significant Family History: Heart Disease, Diabetes, Hypertension Other Significan Family Hx: SOCIAL HISTORY: -DENIES SMOKING, BUT PARENTS SMOKED -RARE ETOH -DENIES DRUG USE 12/29/20--CARDIOPULMONARY ARREST -PAST SURGICAL HISTORY: -CARDIAC CATHS--STENTS X 2 IN 2018. -CATH 02/04/19--NO INTERVENTION. HAD PATENT STENT TO LEFT CIRCUMFLEX, WITH COMPLETE OCCLUSION OF LEFT PDA; PATENT STENT TO RCA; MILD DISEASE IN OTHER VESSELS -CATH 12/29/[address] ORTEGA: CONCLUSION: 1. Severe stenosis in the distal circumflex artery successful primary stenting using 2.25 mm x 23 mm skypoint stent expanded to 2.35 mm 2. Patent stent in the proximal circumflex artery with moderate stenosis in the first obtuse marginal branch 3. Patent stent in the proximal LAD with moderate stenosis in the mid LAD 4. Moderate stenosis in the mid right coronary artery with severe stenosis at the distal right PDA that is very small artery for intervention 4. Mildly elevated left ventricular end-diastolic pressure -APPENDECTOMY -EGD'S AND COLONOSCOPIES WITH POLYPECTOMY -BILATERAL CARPAL TUNNEL SURGERY -LEFT HAND SURGERY -LEFT FOOT SURGERY Family History: Congestive heart failure 19 MOTHER Family history: Arthritis 19 FATHER 19 MOTHER Family history: Cardiovascular disease 19 FATHER 19 MOTHER Family history: Diabetes mellitus 19 FATHER Family history: Glaucoma 19 MOTHER Family history: Hypertension 19 FATHER 19 MOTHER Family history: Osteoporosis 19 MOTHER Hearing loss 19 MOTHER Heart disease 19 FATHER 19 MOTHER Myocardial infarction 19 FATHER 19 MOTHER (DBL BYPASS) Stroke 19 MOTHER (MICRO STROKES) No Family History of: Abdominal aortic aneurysm Frontier's disease Alcoholism Aphasia Cancer Cancer of colon Cataract Chest pain Congenital heart disease Cystic fibrosis Dementia Dysphagia Family history: Allergy Family history: Alzheimer's disease Family history: Asthma Family history: Breast disease Family history: Coronary thrombosis Family history: Gastrointestinal disease Family history: Thyroid disorder Headache Hereditary disease History of - anemia History of - disorder History of - respiratory disease History of drug abuse Human immunodeficiency virus (HIV) seropositivity Hypercholesterolemia Infertile Kidney disease Malignant neoplasm of lung Parkinson's disease Prostate cancer Psychotic disorder Seizure disorder Tuberculosis Visual impairment Review of Systems (CHC) Constitutional: other (Unable to obtain due to intubation and sedation) Reviewed Test Results Reviewed Test Results Lab Laboratory Tests Test 06/11/21 17:56 06/11/21 18:00 06/11/21 20:34 06/11/21 23:37 Range/Units Glucometer 185 H 203 H 70-110 MG/DL Lactic Acid Level 1.66 0.50-2.00 MMOL/L Blood Gas Puncture Site RIGHT RADIAL Blood Gas Patient Temperature 36.2 Arterial Blood pH 7.33 *L 7.37-7.43 Arterial Blood Partial Pressure CO2 48 H 35-45 MMHG Arterial Blood Partial Pressure O2 58 L 79-93 MMHG Arterial Blood HCO3 25 23-27 MMOL/L Arterial Blood Total CO2 26.4 21.0-31.0 MMOL/L Arterial Blood Oxygen Saturation 88 L 94-100 % Arterial Blood Base Excess -0.4 -2.5-2.5 MMOL/L Kush Test POSITIVE Blood Gas Ventilator Setting YES Blood Gas Inspired Oxygen 100 Test 06/12/21 02:23 06/12/21 02:45 06/12/21 05:02 06/12/21 11:16 Range/Units White Blood Count 6.4 4.3-11.0 10^3/uL Red Blood Count 3.41 L 4.30-5.52 10^6/uL Hemoglobin 9.2 L 13.3-17.7 g/dL Hematocrit 30 L 40-54 % Mean Corpuscular Volume 89 80-99 fL Mean Corpuscular Hemoglobin 27 25-34 pg Mean Corpuscular Hemoglobin Concent 30 L 32-36 g/dL Red Cell Distribution Width 17.0 H 10.0-14.5 % Platelet Count 434 H 130-400 10^3/uL Mean Platelet Volume 9.7 9.0-12.2 fL Immature Granulocyte % (Auto) 1 % Neutrophils (%) (Auto) 84 H 42-75 % Lymphocytes (%) (Auto) 9 L 12-44 % Monocytes (%) (Auto) 5 0-12 % Eosinophils (%) (Auto) 1 0-10 % Basophils (%) (Auto) 0 0-10 % Neutrophils # (Auto) 5.4 1.8-7.8 10^3/uL Lymphocytes # (Auto) 0.6 L 1.0-4.0 10^3/uL Monocytes # (Auto) 0.3 0.0-1.0 10^3/uL Eosinophils # (Auto) 0.1 0.0-0.3 10^3/uL Basophils # (Auto) 0.0 0.0-0.1 10^3/uL Immature Granulocyte # (Auto) 0.0 0.0-0.1 10^3/uL Sodium Level 144 135-145 MMOL/L Potassium Level 3.8 3.6-5.0 MMOL/L Chloride Level 109 H 98-107 MMOL/L Carbon Dioxide Level 20 L 21-32 MMOL/L Anion Gap 15 H 5-14 MMOL/L Blood Urea Nitrogen 26 H 7-18 MG/DL Creatinine 2.19 H 0.60-1.30 MG/DL Estimat Glomerular Filtration Rate 34 BUN/Creatinine Ratio 12 Glucose Level 153 H 70-105 MG/DL Calcium Level 8.3 L 8.5-10.1 MG/DL Corrected Calcium 9.3 8.5-10.1 MG/DL Phosphorus Level 2.0 L 2.3-4.7 MG/DL Magnesium Level 1.6 1.6-2.4 MG/DL Total Bilirubin 0.3 0.1-1.0 MG/DL Aspartate Amino Transf (AST/SGOT) 38 H 5-34 U/L Alanine Aminotransferase (ALT/SGPT) 25 0-55 U/L Alkaline Phosphatase 81 40-136 U/L Total Protein 5.5 L 6.4-8.2 GM/DL Albumin 2.7 L 3.2-4.5 GM/DL Triglycerides Level 94 <150 MG/DL Cholesterol Level 65 < 200 MG/DL LDL Cholesterol Direct 15 1-129 MG/DL VLDL Cholesterol 19 5-40 MG/DL HDL Cholesterol 26 L 40-60 MG/DL Blood Gas Puncture Site LEFT RADIAL Blood Gas Patient Temperature 38.2 Arterial Blood pH 7.36 L 7.37-7.43 Arterial Blood Partial Pressure CO2 46 H 35-45 MMHG Arterial Blood Partial Pressure O2 64 L 79-93 MMHG Arterial Blood HCO3 25 23-27 MMOL/L Arterial Blood Total CO2 26.0 21.0-31.0 MMOL/L Arterial Blood Oxygen Saturation 89 L 94-100 % Arterial Blood Base Excess 0.1 -2.5-2.5 MMOL/L Kush Test POSITIVE Blood Gas Ventilator Setting YES Blood Gas Inspired Oxygen 90 Glucometer 141 H 160 H 70-110 MG/DL Physical Exam-(CHC) Physical Exam Vital Signs VS - Last 72 Hours, by Label 06/11/21 06/11/21 06/11/21 06/11/21 12:55 12:55 12:55 13:30 Pulse 86 88 Resp B/P (MAP) 122/62 (82) Pulse Ox 52 O2 Delivery Ambu Bag Ambu Bag Ambu Bag 06/11/21 06/11/21 06/11/21 06/11/21 13:52 15:36 16:18 16:33 Pulse 87 87 79 82 Resp B/P (MAP) 80/47 151/81 120/71 Pulse Ox 86 92 84 O2 Delivery Mechanical Ventilator Mechanical Ventilator O2 Flow Rate 100.00 FiO2 100 06/11/21 06/11/21 06/11/21 06/11/21 16:40 17:00 17:15 17:16 Pulse 82 81 Resp B/P (MAP) 139/83 Pulse Ox 90 O2 Delivery Mechanical Ventilator Mechanical Ventilator O2 Flow Rate 100.00 FiO2 100 06/11/21 06/11/21 06/11/21 06/11/21 17:46 17:56 18:00 18:28 Pulse 83 115 95 Resp B/P (MAP) 115/70 97/57 Pulse Ox 84 91 99 O2 Delivery Mechanical Ventilator O2 Flow Rate 100.00 FiO2 100 100 06/11/21 06/11/21 06/11/21 06/11/21 19:00 19:00 19:00 19:38 Temp 36.0 Pulse 92 82 91 Resp 45 B/P (MAP) 82/59 79/60 Pulse Ox 92 O2 Delivery Mechanical Ventilator O2 Flow Rate 100.00 FiO2 100 06/11/21 06/11/21 06/11/21 06/11/21 19:40 19:50 19:55 20:00 Temp 36.3 Pulse Ox 92 O2 Delivery Mechanical Ventilator FiO2 100 100 100 06/11/21 06/11/21 06/11/21 06/11/21 20:00 20:58 21:00 22:00 Temp 36.2 Pulse 105 105 106 101 Resp 40 32 B/P (MAP) 119/78 108/65 113/63 107/57 Pulse Ox 94 91 95 O2 Delivery Mechanical Ventilator Mechanical Ventilator Mechanical Ventilator O2 Flow Rate 100.00 100.00 100.00 06/11/21 06/11/21 06/11/21 06/11/21 22:14 22:26 22:28 22:28 Pulse 101 Resp 24 Pulse Ox 96 O2 Delivery Mechanical Ventilator O2 Flow Rate 90.00 FiO2 100 90 90 06/11/21 06/11/21 06/11/21 06/12/21 23:00 23:40 23:46 00:00 Temp 36.2 Pulse 100 99 Resp B/P (MAP) 97/68 112/59 Pulse Ox 94 93 96 O2 Delivery Mechanical Ventilator Mechanical Ventilator Mechanical Ventilator O2 Flow Rate 90.00 90.00 FiO2 90 90 06/12/21 06/12/21 06/12/21 06/12/21 01:00 01:00 01:46 02:00 Pulse 99 100 100 99 Resp B/P (MAP) 104/67 83/46 117/64 Pulse Ox 95 95 O2 Delivery Mechanical Ventilator Mechanical Ventilator O2 Flow Rate 90.00 90.00 06/12/21 06/12/21 06/12/21 06/12/21 02:47 02:54 02:55 02:57 Pulse 98 Resp 22 Pulse Ox 94 O2 Delivery Mechanical Ventilator O2 Flow Rate 80.00 FiO2 90 80 80 06/12/21 06/12/21 06/12/21 06/12/21 03:25 03:30 03:51 04:00 Temp 37.7 Pulse 98 98 Resp B/P (MAP) 99/64 114/62 Pulse Ox 90 90 92 O2 Delivery Mechanical Ventilator Mechanical Ventilator Mechanical Ventilator O2 Flow Rate 80.00 80.00 FiO2 80 80 06/12/21 06/12/21 06/12/21 06/12/21 05:00 05:33 06:00 06:53 Pulse 97 97 98 96 Resp B/P (MAP) 116/63 116/63 123/65 Pulse Ox 97 93 93 O2 Delivery Mechanical Ventilator Mechanical Ventilator O2 Flow Rate 80.00 80.00 FiO2 80 06/12/21 06/12/21 06/12/21 06/12/21 07:00 07:53 07:55 08:00 Temp 37.1 Pulse 95 94 Resp 20 B/P (MAP) 112/65 Pulse Ox 95 94 O2 Delivery Mechanical Ventilator Mechanical Ventilator O2 Flow Rate 80.00 FiO2 80 06/12/21 06/12/21 06/12/21 06/12/21 08:00 08:03 09:00 10:00 Pulse 94 95 94 Resp 19 B/P (MAP) 111/67 121/62 119/64 Pulse Ox 91 95 91 O2 Delivery Mechanical Ventilator Mechanical Ventilator Mechanical Ventilator O2 Flow Rate 80.00 80.00 80.00 FiO2 80 06/12/21 06/12/21 06/12/21 06/12/21 10:44 11:00 11:13 12:00 Temp 37.1 Pulse 94 95 Resp 20 17 B/P (MAP) 115/63 Pulse Ox 90 90 94 O2 Delivery Mechanical Ventilator Mechanical Ventilator O2 Flow Rate 80.00 FiO2 80 80 06/12/21 06/12/21 06/12/21 06/12/21 12:00 12:11 12:24 12:42 Pulse 96 96 95 Resp 10 B/P (MAP) 119/62 119/62 Pulse Ox 91 O2 Delivery Mechanical Ventilator O2 Flow Rate 80.00 FiO2 80 06/12/21 06/12/21 06/12/21 06/12/21 13:00 13:08 14:00 14:39 Pulse 93 95 93 92 Resp 19 21 20 B/P (MAP) 120/63 119/62 118/63 Pulse Ox 89 90 90 O2 Delivery Mechanical Ventilator Mechanical Ventilator O2 Flow Rate 80.00 80.00 FiO2 85 06/12/21 06/12/21 06/12/21 06/12/21 15:00 15:30 15:31 16:00 Temp 36.3 Pulse 90 89 Resp 39 26 B/P (MAP) 111/61 126/67 Pulse Ox 89 94 89 O2 Delivery Mechanical Ventilator Mechanical Ventilator Mechanical Ventilator O2 Flow Rate 80.00 80.00 FiO2 85 06/12/21 06/12/21 06/12/21 06/12/21 16:11 16:30 17:00 18:00 Pulse 81 85 Resp 19 19 B/P (MAP) 93/54 101/56 Pulse Ox 90 89 O2 Delivery Mechanical Ventilator Mechanical Ventilator Mechanical Ventilator O2 Flow Rate 100.00 100.00 100.00 FiO2 80 06/12/21 06/12/21 06/12/21 06/12/21 18:06 18:18 19:00 19:23 Temp 36.9 Pulse 85 87 90 Resp 20 B/P (MAP) 101/56 Pulse Ox 90 FiO2 100 06/12/21 19:43 Temp 36.6 Pulse 85 Resp 20 B/P (MAP) 115/60 Pulse Ox 98 O2 Delivery Mechanical Ventilator O2 Flow Rate 100.00 Capillary Refill : Less Than 3 Seconds General Appearance: other (Intubated and sedated) Respiratory: crackles, wheezing, expiration Cardiovascular: regular rate, rhythm, no murmur Gastrointestinal: normal bowel sounds, non tender, soft Extremities: pedal edema (2+ pitting edema equal bilaterally) Assessment/Plan Assessment/Plan Admission Status: Inpatient Order (span 2 midnights) Reason for Inpatient Admission: Requiring ICU care and will likely be a slow wean from the ventilator and will require critical care (1) Unresponsive episode Status: Acute Assessment & Plan: 06/12: Patient found down with poor oxygenation, following commands when sedation weaned (2) Acute and chronic respiratory failure with hypoxia Status: Acute Assessment & Plan: 06/12: Intubated, eICU managing, maxed out on FiO2, antibiotics and steroids, General surgery consulted for bronch (3) Acute on chronic heart failure with preserved ejection fraction (HFpEF) Status: Acute Assessment & Plan: - Dr Ortega Consulted, appreciate recommendations (4) Aspiration into airway Status: Acute Qualifiers: Qualified Codes: T17.908A - Unspecified foreign body in respiratory tract, part unspecified causing other injury, initial encounter (5) COPD (chronic obstructive pulmonary disease) Status: Chronic Qualifiers: (6) Coronary artery disease without angina pectoris Status: Chronic Qualifiers: Qualified Codes: I25.10 - Atherosclerotic heart disease of [place] coronary artery without angina pectoris (7) Insulin dependent diabetes mellitus with complications Status: Chronic Assessment & Plan: - SSI (8) Acute kidney injury Status: Acute Assessment & Plan: - IVFs, Will monitor closely (9) DVT prophylaxis Status: Acute Assessment & Plan: - JOCELYN Conley MD Jun 12, 2021 15:10
[2021-06-12 18:18] VITALS: BP 109/56
[2021-06-12 21:21] VITALS: BP 101/62
[2021-06-13] VITALS (10 sets, daily range): BP systolic 95–131; BP diastolic 54–74
[2021-06-13] MEDS: inSUlin ASPART (NovoLOG) 1 UNIT/0.01 ML (CHARGE PER UNIT) SC SCH ×4 (00:59→17:39)
[2021-06-13] MEDS: NS IV 1000 ML 1,000 ML IV SCH ×2 (02:26→17:05)
[2021-06-13 03:57] LABS: ABG BASE EXCESS -0.9 MMOL/L (-2.5-2.5); ABG OXYGEN SATURATION 93 % (94-100); ABG PCO2 48 MMHG (35-45); ABG PO2 63 MMHG (79-93); ABG TCO2 25.9 MMOL/L (21.0-31.0)
[2021-06-13 03:58] LABS: ALLENS TEST POSITIVE; BASOPHILS # (AUTO) 0.1 10^3/uL (0.0-0.1); BASOPHILS % (AUTO) 0 % (0-10); EOSINOPHILS # (AUTO) 0.5 10^3/uL (0.0-0.3); EOSINOPHILS % (AUTO) 4 % (0-10); HEMATOCRIT 23 % (40-54); INSPIRED O2 100; LYMPHOCYTES % (AUTO) 7 % (12-44); MEAN CORPUSCULAR HEMOGLOBIN 27 pg (25-34); MEAN CORPUSCULAR HGB CONC 30 g/dL (32-36); MEAN CORPUSCULAR VOLUME 90 fL (80-99); MONOCYTES # (AUTO) 0.5 10^3/uL (0.0-1.0); MONOCYTES % (AUTO) 4 % (0-12); NEUTROPHILS # (AUTO) 9.9 10^3/uL (1.8-7.8); NEUTROPHILS % (AUTO) 76 % (42-75); PLATELET COUNT 272 10^3/uL (130-400); VENTILATOR YES
[2021-06-13 03:59] LABS: ABG PH 7.32 (7.37-7.43); PATIENT TEMP 36.7
[2021-06-13 04:01] LABS: HEMOGLOBIN 6.9 g/dL (13.3-17.7)
[2021-06-13 04:21] LABS: ALBUMIN 2.8 GM/DL (3.2-4.5); POTASSIUM 4.1 MMOL/L (3.6-5.0)
[2021-06-13 04:24] LABS: TOTAL PROTEIN 5.3 GM/DL (6.4-8.2)
[2021-06-13 04:25] LABS: BILIRUBIN,TOTAL 0.4 MG/DL (0.1-1.0)
[2021-06-13 04:27] LABS: CREATININE SERUM 1.99 MG/DL (0.60-1.30); PHOSPHORUS 3.9 MG/DL (2.3-4.7)
[2021-06-13 05:13] LABS: HEMATOCRIT 24 % (40-54); MEAN CORPUSCULAR HGB CONC 30 g/dL (32-36); MEAN CORPUSCULAR VOLUME 90 fL (80-99); MEAN PLATELET VOLUME 9.9 fL (9.0-12.2); PLATELET COUNT 277 10^3/uL (130-400); WHITE BLOOD COUNT 12.3 10^3/uL (4.3-11.0)
[2021-06-13 05:14] LABS: MEAN CORPUSCULAR HEMOGLOBIN 26 pg (25-34)
[2021-06-13] MEDS: MAGNESIUM 1 GM/100 ML IVPB 100 ML IV SCH (05:14)
[2021-06-13] MEDS: POTASSIUM CL 10MEQ/50ML IVPB 50 ML IV SCH (05:14)
[2021-06-13] MEDS: KCL 20 MEQ TAB (K-DUR) PO SCH (05:14)
[2021-06-13] MEDS ORDERED: NS IV 500 ML 500 ML IV SCH ×2 (05:30)
[2021-06-13] MEDS: MEROPENEM 500 MG/NS 100 ML IVPB IV SCH ×6 (05:37→20:19)
[2021-06-13] MEDS: fentaNYL DRIP PRE-MIX 250 ML IV SCH ×2 (06:41→18:44)
--- NOTE | 2021-06-13 07:10 | Progress Note - Surgery ---
ALESHAJOSE Gloria 06/13/21 0710: Subjective Date Seen by a Provider: Jun 13, 2021 Time Seen by a Provider: 06:40 Subjective/Events-last exam Mr. Laird is being seen s/p bronchoscopy and central line placement secondary to acute respiratory failure. This morning he is intubated and sedated. He is not currently on any pressors; his norepinephrine is on standby. Cultures from his bronchoalveolar lavage are currently pending. His ventilator settings are as follows: TV 450, RR 20, PEEP 15, FiO2 75%. His kidney function has worsened slightly since yesterday with an increase in WBC and a decrease in Hgb. Unable to obtain ROS. Focused Exam Lactate Level 06/11/21 14:40: Lactic Acid Level 3.61*H 06/11/21 18:00: Lactic Acid Level 1.66 Objective Exam Vital Signs Date Time Temp Pulse Resp B/P (MAP) Pulse Ox O2 Delivery O2 Flow Rate FiO2 06/13/21 06:47 Mechanical Ventilator 75.00 06/13/21 06:30 Mechanical Ventilator 80.00 06/13/21 06:05 Mechanical Ventilator 90.00 06/13/21 06:00 90 20 114/66 98 Mechanical Ventilator 100.00 06/13/21 05:00 83 23 93/54 97 Mechanical Ventilator 100.00 06/13/21 04:17 77 20 91 100 06/13/21 04:11 100 06/13/21 04:00 37.2 81 20 95/54 86 Mechanical Ventilator 100.00 06/13/21 04:00 89 Mechanical Ventilator 100 06/13/21 03:00 79 19 90/53 89 Mechanical Ventilator 100.00 06/13/21 02:22 81 97/55 06/13/21 02:00 82 20 90/52 90 Mechanical Ventilator 100.00 06/13/21 01:59 81 20 90 100 06/13/21 01:00 80 19 94/53 89 Mechanical Ventilator 100.00 06/13/21 01:00 81 06/13/21 00:11 100 06/13/21 00:00 36.6 86 13 98/56 94 Mechanical Ventilator 100.00 06/12/21 23:59 89 Mechanical Ventilator 100 06/12/21 23:05 90 Mechanical Ventilator 100.00 06/12/21 23:00 89 13 97/56 91 Mechanical Ventilator 90.00 06/12/21 22:00 91 9 122/65 91 Mechanical Ventilator 90.00 06/12/21 21:32 Mechanical Ventilator 90.00 06/12/21 21:21 90 20 96 100 06/12/21 21:00 87 15 115/65 95 Mechanical Ventilator 100.00 06/12/21 20:11 100 06/12/21 20:00 89 Mechanical Ventilator 100 06/12/21 20:00 87 15 96/62 98 Mechanical Ventilator 100.00 06/12/21 19:43 36.6 85 20 115/60 98 Mechanical Ventilator 100.00 06/12/21 19:23 36.9 06/12/21 19:00 15 90/56 89 Mechanical Ventilator 100.00 06/12/21 19:00 90 06/12/21 18:18 87 20 90 100 06/12/21 18:06 85 101/56 06/12/21 18:00 85 19 101/56 89 Mechanical Ventilator 100.00 06/12/21 17:00 81 19 93/54 90 Mechanical Ventilator 100.00 06/12/21 16:30 Mechanical Ventilator 100.00 06/12/21 16:11 80 06/12/21 16:00 89 26 126/67 89 Mechanical Ventilator 80.00 06/12/21 15:31 94 Mechanical Ventilator 85 06/12/21 15:30 36.3 06/12/21 15:00 90 39 111/61 89 Mechanical Ventilator 80.00 06/12/21 14:39 92 20 90 85 06/12/21 14:00 93 21 118/63 90 Mechanical Ventilator 80.00 06/12/21 13:08 95 119/62 06/12/21 13:00 93 19 120/63 89 Mechanical Ventilator 80.00 06/12/21 12:42 95 06/12/21 12:24 96 119/62 06/12/21 12:11 80 06/12/21 12:00 96 10 119/62 91 Mechanical Ventilator 80.00 06/12/21 12:00 37.1 06/12/21 11:13 94 Mechanical Ventilator 80 06/12/21 11:00 95 17 115/63 90 Mechanical Ventilator 80.00 06/12/21 10:44 94 20 90 80 06/12/21 10:00 94 19 119/64 91 Mechanical Ventilator 80.00 06/12/21 09:00 95 22 121/62 95 Mechanical Ventilator 80.00 06/12/21 08:03 80 06/12/21 08:00 94 20 111/67 91 Mechanical Ventilator 80.00 06/12/21 08:00 37.1 06/12/21 07:55 94 Mechanical Ventilator 80 06/12/21 07:53 94 I & O 06/13/21 07:00 Intake Total 1030 ml Output Total 1550 ml Balance -520 ml Capillary Refill : Less Than 3 Seconds General Appearance: No Apparent Distress, Other (Intubated and sedated) Neck: Normal Inspection, Non Tender; No Lymphadenopathy (L), No Lymphadenopathy (R); Other (Right IJ central line) Respiratory: No Accessory Muscle Use, No Respiratory Distress, Other (Equal chest rise, mechanical ventilation) Cardiovascular: Regular Rate, Rhythm, Other (Pedal edema) Gastrointestinal: non tender, soft Extremity: Normal Inspection, Non Tender, Pedal Edema Neurologic/Psychiatric: No Alert, No Oriented x3, No No Motor/Sensory Deficits; Other (Patient intubated and sedated ) Skin: Normal Color, Warm/Dry Lymphatic: No Adenopathy (Head and neck) Results Lab Laboratory Tests 06/12/21 11:16: Glucometer 160H 06/12/21 17:33: Glucometer 155H 06/13/21 00:56: Glucometer 188H 06/13/21 03:40: White Blood Count 13.0H, Red Blood Count 2.60L, Hemoglobin 6.9#*L, Hematocrit 23L, Mean Corpuscular Volume 90, Mean Corpuscular Hemoglobin 27, Mean Corpuscular Hemoglobin Concent 30L, Red Cell Distribution Width 17.5H, Platelet Count 272, Mean Platelet Volume 10.0, Immature Granulocyte % (Auto) 8, Neutrophils (%) (Auto) 76H, Lymphocytes (%) (Auto) 7L, Monocytes (%) (Auto) 4, Eosinophils (%) (Auto) 4, Basophils (%) (Auto) 0, Neutrophils # (Auto) 9.9H, Lymphocytes # (Auto) 1.0, Monocytes # (Auto) 0.5, Eosinophils # (Auto) 0.5H, Basophils # (Auto) 0.1, Immature Granulocyte # (Auto) 1.1H, Blood Gas Puncture Site RIGHT RADIAL, Blood Gas Patient Temperature 36.7, Arterial Blood pH 7.32*L, Arterial Blood Partial Pressure CO2 48H, Arterial Blood Partial Pressure O2 63L, Arterial Blood HCO3 24, Arterial Blood Total CO2 25.9, Arterial Blood Oxygen Saturation 93L, Arterial Blood Base Excess -0.9, Kush Test POSITIVE, Blood Gas Ventilator Setting YES, Blood Gas Inspired Oxygen 100, Sodium Level 143, Potassium Level 4.1, Chloride Level 109H, Carbon Dioxide Level 20L, Anion Gap 14, Blood Urea Nitrogen 36H, Creatinine 1.99H, Estimat Glomerular Filtration Ra te 38, BUN/Creatinine Ratio 18, Glucose Level 160H, Calcium Level 8.0L, Corrected Calcium 9.0, Phosphorus Level 3.9, Magnesium Level 2.0, Total Bilirubin 0.4, Aspartate Amino Transf (AST/SGOT) 17, Alanine Aminotransferase (ALT/SGPT) 17, Alkaline Phosphatase 68, Total Protein 5.3L, Albumin 2.8L 06/13/21 05:00: White Blood Count 12.3H, Red Blood Count 2.66L, Hemoglobin 7.0L, Hematocrit 24L, Mean Corpuscular Volume 90, Mean Corpuscular Hemoglobin 26, Mean Corpuscular Hemoglobin Concent 30L, Red Cell Distribution Width 17.7H, Platelet Count 277, Mean Platelet Volume 9.9 Microbiology 06/11/21 Gram Stain - Final, Resulted 06/11/21 Bronchial Culture - Preliminary, Resulted Culture In Progress 06/11/21 Blood Culture - Preliminary, Resulted No growth 06/11/21 Urine Culture - Final, Complete NO GROWTH Assessment/Plan Assessment/Plan Assessment/Plan Assessment: Acute respiratory failure, pneumonia - Imaging shows right-sided > left-sided infiltrates - Requiring large amount of ventilator support Aspiration Hypotension - Requiring pressors at times - Norepinephrine currently held HAWK - BUN and Cr 26 and 2.19 at admission - 36 and 1.99 this morning Anemia - Hgb 7.0. - Trending down, continue to monitor. Transfuse if Hgb < 7.0. Elevated D-dimer Plan: Continue IVF and IV meropenem. Give pressors if indicated Central line placed and bronchoscopy with removal foreign body particulate performed yesterday Continue medical management as indicated Manage with medicine and EICU Will continue to monitor. May need repeat bronchoscopy. CXR this morning, official report pending. GARRY CUMMINGS DO 06/13/211947: Subjective Subjective/Events-last exam Patient remains intubated and sedated. No family at bedside. Patient chest x- ray today demonstrating left perihilar region improved and persistent right basilar infiltrate. Cultures pending. Objective Exam General Appearance: Other (Intubated and sedated) Neck: Normal Inspection, Other (Right IJ central line) Respiratory: Other (Equal chest rise, mechanical ventilation) Cardiovascular: Regular Rate, Rhythm, Other (Pedal edema) Gastrointestinal: soft, no organomegaly; No mass Extremity: Normal Inspection, Pedal Edema Neurologic/Psychiatric: No Alert, No Oriented x3; Other (Patient intubated and sedated ) Skin: Normal Color, Warm/Dry Lymphatic: No Adenopathy (Head and neck) Assessment/Plan Assessment/Plan Assessment/Plan Acute respiratory failure, pneumonia - Imaging shows right-sided > left-sided infiltrates - Requiring large amount of ventilator support Aspiration Hypotension - Requiring pressors at times HAWK - BUN and Cr 26 and 2.19 at admission - 36 and 1.99 this morning Anemia - Hgb 7.0. - Trending down, continue to monitor. Transfuse if Hgb < 7.0. Elevated D-dimer Continue IVF and IV meropenem. Give pressors if indicated Central line placed and bronchoscopy with removal foreign body particulate performed yesterday Continue medical management as indicated Manage with medicine and EICU Will continue to monitor. May need repeat bronchoscopy. CXR in am Supervisory-Addendum Brief Verification & Attestation Participated in pt care: history, MDM, physical Personally performed: exam, history, MDM, supervision of care Care discussed with: Medical Student Procedures: n/a Results interpretation: Verified all documentation Verification and Attestation of Medical Student E/M Service A medical student performed and documented this service in my presence. I reviewed and verified all information documented by the medical student and made modifications to such information, when appropriate. I personally performed the physical exam and medical decision making. Garry Cummings, Jun 13, 2021,19:49 JOSE EDUARDO Jun 13, 2021 07:10 GARRY CUMMINGS DO Jun 13, 2021 19:48
[2021-06-13] MEDS: PANTOPRAZOLE 40 MG (PROTONIX) VIAL IV SCH (07:58)
[2021-06-13] MEDS: ENOXAPARIN 100 MG/1 ML (LOVENOX) SYR SC SCH ×2 (07:58→20:20)
[2021-06-13] MEDS: CLOPIDOGREL 75 MG (PLAVIX) TABLET PO SCH (07:58)
--- NOTE | 2021-06-13 08:07 | Diagnostic Imaging Report ---
INDICATION: Pneumonia Frontal chest obtained at 4:03 a.m. and compared to 06/11/2021. There is no change in ET tube, NG tube, right IJ central catheter. There is cardiomegaly with central vascular congestion. There is improvement in left perihilar infiltrate. There is persistent infiltrate in the right lung base. There is no pneumothorax or gross pleural fluid. IMPRESSION: Life support lines unchanged. Improved infiltrate left perihilar region compared to the prior study. Persistent right basilar infiltrate. Dictated by: Dictated on workstation # [id number]
--- NOTE | 2021-06-13 10:48 | Tele-ICU Progress Note ---
Subjective Date Seen by a Provider: Jun 13, 2021 Time Seen by a Provider: 08:06 Subjective/Events-last exam (Tele-ICU Physician , Progress Note ) Available chart/ vitals / labs / Images reviewed Video assessment done using teleICU camera, rest of exam as per RN Discussed with RN , EXAM PER RN Events overnight : Hb 6.9 on 06/13 - transfusion 1 uPRBC Afebrile FiO2 - 80 PEEP 10 I/O = +1500 Drips: Pressors: LEVO 0.1 Sedation gtt: propofol 20 , febt 100 ( RASS -1 ) VENT SETTINGS and ABG reviewed Not candidate for SBT today REVIEWED Cardiovascular Stability / Sedation Score / FI02/PEEP / ABG / CXR Consultants: carri Hospital course: (06/11) 60 Y/O Male admitted for Respiratory arrest. Attempted intubation per EMS with large volume emesis. Intubated in ER. 06/13- Hb 6.9 - transfusion 1 uPRBC A/P Acute resp failure with PNA - 90% fio2 and PEEP 10 - cont ABX , monitor for VO Bilateral PNA , R>>L , aspiration ( covid , flu NEG ) -MErrem 06/11 - multiple allergies Shock - septic , on LEVO - add albumin prn Anemia - delutional ? no obvious bleeding -Hb 6.9 on 06/13 - transfusion 1 uPRBC , follow - AC on holsd- discussed with RN TO ADDRESS WITH CARDS Plural effusions - not large by CT 06/11 CAD with stents and on xarelto ( on hold - CPM - EF 50 % recently - AC with yina full dose HAWK - sligthly worse - add colloids x2 Elev ddimer - on full yina dose already Encephalopaty - CTH neg 06/11 - follow commands LArge volume output from OG - cont LIS Lines :R IJ 06/11 (Central Line Necessity Reviewed) Thompson: + OG: Nutrition: NPO , LIS Analgesia: Anxiety/ delirium VTE Prophylaxis: yina full dose Stress Ulcer Prophylaxis: ppi Plans in collaboration with bedside consultants and IM MDs. Discussed with RN to reach out if any questions or concerns A total of 35 minutes of critical care time was devoted to this patient today, required to treat and/or prevent further deterioration of critical care condition ( as above) . Sepsis Event Evaluation Height, Weight, BMI Height: 5'9.00" Weight: 247lbs. 7.0oz. [id number]; 36.61 BMI Method:Stated Focused Exam Lactate Level 06/11/21 14:40: Lactic Acid Level 3.61*H 06/11/21 18:00: Lactic Acid Level 1.66 Exam Exam Patient acknowledged, consented, and participated in this virtual visit which was conducted using real time audio/video Vital Signs Date Time Temp Pulse Resp B/P (MAP) Pulse Ox O2 Delivery O2 Flow Rate FiO2 06/13/21 10:18 87 20 97 60 06/13/21 10:00 87 16 114/67 97 Mechanical Ventilator 75.00 06/13/21 09:00 87 19 112/65 97 Mechanical Ventilator 75.00 06/13/21 08:56 115/66 06/13/21 08:11 75 06/13/21 08:09 36.5 86 20 104/60 96 Mechanical Ventilator 75 06/13/21 08:00 86 20 104/60 96 Mechanical Ventilator 75.00 06/13/21 08:00 36.0 06/13/21 08:00 96 Mechanical Ventilator 75 06/13/21 07:55 36.4 87 20 107/64 96 Mechanical Ventilator 75 06/13/21 07:16 87 20 95 75 06/13/21 07:00 85 20 98/59 95 Mechanical Ventilator 75.00 06/13/21 07:00 87 06/13/21 06:47 Mechanical Ventilator 75.00 06/13/21 06:30 Mechanical Ventilator 80.00 06/13/21 06:05 Mechanical Ventilator 90.00 06/13/21 06:00 90 20 114/66 98 Mechanical Ventilator 100.00 06/13/21 05:00 83 23 93/54 97 Mechanical Ventilator 100.00 06/13/21 04:17 77 20 91 100 06/13/21 04:11 100 06/13/21 04:00 37.2 81 20 95/54 86 Mechanical Ventilator 100.00 06/13/21 04:00 89 Mechanical Ventilator 100 06/13/21 03:00 79 19 90/53 89 Mechanical Ventilator 100.00 06/13/21 02:22 81 97/55 06/13/21 02:00 82 20 90/52 90 Mechanical Ventilator 100.00 06/13/21 01:59 81 20 90 100 06/13/21 01:00 80 19 94/53 89 Mechanical Ventilator 100.00 06/13/21 01:00 81 06/13/21 00:11 100 06/13/21 00:00 36.6 86 13 98/56 94 Mechanical Ventilator 100.00 06/12/21 23:59 89 Mechanical Ventilator 100 06/12/21 23:05 90 Mechanical Ventilator 100.00 06/12/21 23:00 89 13 97/56 91 Mechanical Ventilator 90.00 06/12/21 22:00 91 9 122/65 91 Mechanical Ventilator 90.00 06/12/21 21:32 Mechanical Ventilator 90.00 06/12/21 21:21 90 20 96 100 06/12/21 21:00 87 15 115/65 95 Mechanical Ventilator 100.00 06/12/21 20:11 100 06/12/21 20:00 89 Mechanical Ventilator 100 06/12/21 20:00 87 15 96/62 98 Mechanical Ventilator 100.00 06/12/21 19:43 36.6 85 20 115/60 98 Mechanical Ventilator 100.00 06/12/21 19:23 36.9 06/12/21 19:00 15 90/56 89 Mechanical Ventilator 100.00 06/12/21 19:00 90 06/12/21 18:18 87 20 90 100 06/12/21 18:06 85 101/56 06/12/21 18:00 85 19 101/56 89 Mechanical Ventilator 100.00 06/12/21 17:00 81 19 93/54 90 Mechanical Ventilator 100.00 06/12/21 16:30 Mechanical Ventilator 100.00 06/12/21 16:11 80 06/12/21 16:00 89 26 126/67 89 Mechanical Ventilator 80.00 06/12/21 15:31 94 Mechanical Ventilator 85 06/12/21 15:30 36.3 06/12/21 15:00 90 39 111/61 89 Mechanical Ventilator 80.00 06/12/21 14:39 92 20 90 85 06/12/21 14:00 93 21 118/63 90 Mechanical Ventilator 80.00 06/12/21 13:08 95 119/62 06/12/21 13:00 93 19 120/63 89 Mechanical Ventilator 80.00 06/12/21 12:42 95 06/12/21 12:24 96 119/62 06/12/21 12:11 80 06/12/21 12:00 96 10 119/62 91 Mechanical Ventilator 80.00 06/12/21 12:00 37.1 06/12/21 11:13 94 Mechanical Ventilator 80 06/12/21 11:00 95 17 115/63 90 Mechanical Ventilator 80.00 I & O 06/13/21 07:00 Intake Total 1030 ml Output Total 1550 ml Balance -520 ml Height & Weight Height: 5'9.00" Weight: 247lbs. 7.0oz. [id number]; 36.61 BMI Method:Stated General Appearance: No Apparent Distress, Other (Intubated and sedated) Neck: Normal Inspection, Non Tender; No Lymphadenopathy (L), No Lymphadenopathy (R); Other (Right IJ central line) Respiratory: No Accessory Muscle Use, No Respiratory Distress, Other (Equal chest rise, mechanical ventilation) Cardiovascular: Regular Rate, Rhythm, Other (Pedal edema) Capillary Refill: Less Than 3 Seconds Gastrointestinal: non tender, soft Extremity: Normal Inspection, Non Tender, Pedal Edema Neurologic/Psychiatric: No Alert, No Oriented x3, No No Motor/Sensory Deficits; Other (Patient intubated and sedated ) Skin: Normal Color, Warm/Dry Lymphatic: No Adenopathy (Head and neck) Results Lab Laboratory Tests 06/11/21 10:58 06/12/21 02:23 06/13/21 03:40 06/13/21 05:00 Assessment/Plan Assessment/Plan ` THOMAS CRUMP MD Jun 13, 2021 10:48
--- NOTE | 2021-06-13 15:57 | Cardiology Progress Note ---
Subjective Date Seen by Provider: Jun 13, 2021 Time Seen by Provider: 08:00 Subjective/Events-last exam Patient was seen at bedside, ventilator dependent. Review of Systems General: Other (Unable to provide review of system) Focused Exam Lactate Level 06/11/21 14:40: Lactic Acid Level 3.61*H 06/11/21 18:00: Lactic Acid Level 1.66 Objective-Cardiology Exam Last Set of Vital Signs Vital Signs 06/13/21 06/13/21 06/13/21 06/13/21 12:00 15:00 15:06 15:53 Temp 36.0 Pulse 86 Resp 20 B/P (MAP) 122/69 Pulse Ox 95 O2 Delivery Mechanical Ventilator O2 Flow Rate 75.00 FiO2 60 I&O Intake and Output 06/12/21 23:59 Intake Total 1990 ml Output Total 2795 ml Balance -805 ml Intake Oral 0 ml IV Total 1900 ml Other 90 ml Output Urine Total 920 ml Gastric Drainage Total 1875 ml General: Other (Sedated and intubated) HEENT: Atraumatic Neck: Supple Lungs: Other (Bilateral rhonchi) Heart: Regular Rate, Normal S1, Normal S2 Abdomen: Normal Bowel Sounds Extremities: No Clubbing Skin: No Rashes, No Breakdown Neuro: Other (Sedated and intubated) Psych/Mental Status: Other (Sedated and intubated) Results Lab Laboratory Tests 06/13/21 03:40 06/13/21 05:00 A/P-Cardiology Admission Diagnosis Acute respiratory failure Congestive heart failure, acute on chronic left ventricular diastolic dysfu nction, hypertensive heart disease Coronary artery disease Pneumonia Assessment/Plan Acute respiratory failure, ventilator dependent, probably secondary to pneumonia and acute pulmonary edema. Receiving antibiotic. Continue to monitor Patient failed weaning attempt yesterday Required more oxygenation. Managed by medical team Congestive heart failure, acute on chronic left ventricular diastolic dysfunction, normal systolic function, last echo was done on May 31, 2021 with ejection fraction 50 to 55%. PA pressure 20 to 25 mmHg. Had mild elevation in BNP. Acute renal insufficiency, continue to monitor renal function Multifocal pneumonia, receiving antibiotics. Managed by primary care physician History of recurrent chest pain, musculoskeletal. Coronary artery disease, - cath 01/09/18: proximal circumflex artery stented with Rocío 3.012 mm; mid right coronary artery stented with 2.512 mm Rocío; mild to moderate disease in the proximal LAD, severe stenosis at the ostium of first diagonal artery that is very small artery. - cath 02/04/19: total occlusion of the left PDA off the circumflex artery, patent stent in the proximal circumflex. Patent stent in the midright coronary artery. Mild disease in the LAD. - cath 12/29/20: patent stent in the proximal circumflex and right coronary artery. Severe stenosis at the distal circumflex artery, primary stenting using 2.25 x 23 mm expanded to 2.35 mm with excellent results. Has severe stenosis/subtotal occlusion at the distal right posterior descending artery, very small artery not amenable to intervention. Mild to moderate disease in the LAD. Patient is maintained on Plavix and Xarelto, he is allergic to aspirin. 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 Diabetes mellitus, h/o DKAs in the past Obesity CROW KNIGHT MD Jun 13, 2021 15:57
[2021-06-13] MEDS: NOREPINEPHRINE 8 MG/250 ML 250 ML IV SCH (17:04)
--- NOTE | 2021-06-13 23:08 | Progress Note ---
Subjective Subjective/Events-last exam Patient intubated and sedated. No new events ON Review of Systems Unable to access due to intubation and sedation Focused Exam Lactate Level 06/11/21 14:40: Lactic Acid Level 3.61*H 06/11/21 18:00: Lactic Acid Level 1.66 Objective Exam Last Set of Vital Signs Vital Signs Date Time Temp Pulse Resp B/P (MAP) Pulse Ox O2 Delivery O2 Flow Rate FiO2 06/13/21 22:00 95 20 146/86 94 Mechanical Ventilator 75.00 06/13/21 21:28 60 06/13/21 19:57 35.4 Capillary Refill : Less Than 3 Seconds I&O Intake and Output 06/13/21 00:00 Intake Total 1990 ml Output Total 2795 ml Balance -805 ml Intake Oral 0 ml IV Total 1900 ml Other 90 ml Output Urine Total 920 ml Gastric Drainage Total 1875 ml General: Other (Intubated and sedated) HEENT: Mucous Memb Moist/Porters Neck Lungs: Other (diffuse crackles and wheezing, breathing comfortably on vent) Heart: Regular Rate Abdomen: Soft Extremities: Other (2+ pitting edema) Results/Procedures Lab Laboratory Tests 06/13/21 00:56: Glucometer 188H 06/13/21 03:40: White Blood Count 13.0H, Red Blood Count 2.60L, Hemoglobin 6.9#*L, Hematocrit 23L, Mean Corpuscular Volume 90, Mean Corpuscular Hemoglobin 27, Mean Corpuscu lar Hemoglobin Concent 30L, Red Cell Distribution Width 17.5H, Platelet Count 272, Mean Platelet Volume 10.0, Immature Granulocyte % (Auto) 8, Neutrophils (%) (Auto) 76H, Lymphocytes (%) (Auto) 7L, Monocytes (%) (Auto) 4, Eosinophils (%) (Auto) 4, Basophils (%) (Auto) 0, Neutrophils # (Auto) 9.9H, Lymphocytes # (Auto) 1.0, Monocytes # (Auto) 0.5, Eosinophils # (Auto) 0.5H, Basophils # (Auto) 0.1, Immature Granulocyte # (Auto) 1.1H, Blood Gas Puncture Site RIGHT RADIAL, Blood Gas Patient Temperature 36.7, Arterial Blood pH 7.32*L, Arterial Blood Partial Pressure CO2 48H, Arterial Blood Partial Pressure O2 63L, Arterial Blood HCO3 24, Arterial Blood Total CO2 25.9, Arterial Blood Oxygen Saturation 93L, Arterial Blood Base Excess -0.9, Kush Test POSITIVE, Blood Gas Ventilator Setting YES, Blood Gas Inspired Oxygen 100, Sodium Level 143, Potassium Level 4.1, Chloride Level 109H, Carbon Dioxide Level 20L, Anion Gap 14, Blood Urea Nitrogen 36H, Creatinine 1.99H, Estimat Glomerular Filtration Rate 38, BUN/Creatinine Ratio 18, Glucose Level 160H, Calcium Level 8.0L, Corrected Calcium 9.0, Phosphorus Level 3.9, Magnesium Level 2.0, Total Bilirubin 0.4, Aspartate Amino Transf (AST/SGOT) 17, Alanine Aminotransferase (ALT/SGPT) 17, Alkaline Phosphatase 68, Total Protein 5.3L, Albumin 2.8L 06/13/21 05:00: White Blood Count 12.3H, Red Blood Count 2.66L, Hemoglobin 7.0L, Hematocrit 24L, Mean Corpuscular Volume 90, Mean Corpuscular Hemoglobin 26, Mean Corpuscular Hemoglobin Concent 30L, Red Cell Distribution Width 17.7H, Platelet Count 277, Mean Platelet Volume 9.9 06/13/21 11:54: Glucometer 160H 06/13/21 17:28: Glucometer 152H Microbiology 06/11/21 Gram Stain - Final, Resulted 06/11/21 Bronchial Culture - Preliminary, Resulted Usual oral linnette YEAST 06/11/21 Blood Culture - Preliminary, Resulted No growth 06/11/21 Urine Culture - Final, Complete NO GROWTH Assessment/Plan Assessment/Plan (1) Unresponsive episode Status: Acute Assessment & Plan: 06/12: Patient found down with poor oxygenation, following commands when sedation weaned (2) Acute and chronic respiratory failure with hypoxia Status: Acute Assessment & Plan: 06/12: Intubated, eICU managing, maxed out on FiO2, antibiotics and steroids, General surgery consulted for bronch 06/13: Peep was increased last night and able to wean FiO2 75%, patient is not candidate for SBT at this time (3) Acute on chronic heart failure with preserved ejection fraction (HFpEF) Status: Acute Assessment & Plan: - Dr Ortega Consulted, appreciate recommendations (4) Aspiration into airway Status: Acute Qualifiers: Qualified Codes: T17.908A - Unspecified foreign body in respiratory tract, part unspecified causing other injury, initial encounter (5) COPD (chronic obstructive pulmonary disease) Status: Chronic Qualifiers: (6) Coronary artery disease without angina pectoris Status: Chronic Qualifiers: Qualified Codes: I25.10 - Atherosclerotic heart disease of te[place] coronary artery without angina pectoris (7) Insulin dependent diabetes mellitus with complications Status: Chronic Assessment & Plan: - SSI (8) Acute kidney injury Status: Acute Assessment & Plan: - IVFs, Will monitor closely 06/13: Improved mildly, will continue to monitor, strict I/Os (9) DVT prophylaxis Status: Acute Assessment & Plan: - JOCELYN Conley MD Jun 13, 2021 23:08
[2021-06-13] MEDS ORDERED: DOCUSATE SODIUM 10 MG/ML 10 ML UDC (COLACE) PO PRN (23:30)
[2021-06-14] MEDS: inSUlin ASPART (NovoLOG) 1 UNIT/0.01 ML (CHARGE PER UNIT) SC SCH ×4 (00:26→18:14)
[2021-06-14 01:35] VITALS: BP 136/74
[2021-06-14 03:58] LABS: BASOPHILS # (AUTO) 0.1 10^3/uL (0.0-0.1); BASOPHILS % (AUTO) 0 % (0-10); EOSINOPHILS # (AUTO) 0.8 10^3/uL (0.0-0.3); EOSINOPHILS % (AUTO) 5 % (0-10); HEMATOCRIT 27 % (40-54); HEMOGLOBIN 8.3 g/dL (13.3-17.7); LYMPHOCYTES # (AUTO) 0.7 10^3/uL (1.0-4.0); LYMPHOCYTES % (AUTO) 4 % (12-44); MEAN CORPUSCULAR HEMOGLOBIN 27 pg (25-34); MEAN CORPUSCULAR HGB CONC 31 g/dL (32-36); MEAN CORPUSCULAR VOLUME 89 fL (80-99); MEAN PLATELET VOLUME 9.3 fL (9.0-12.2); MONOCYTES # (AUTO) 0.5 10^3/uL (0.0-1.0); MONOCYTES % (AUTO) 3 % (0-12); NEUTROPHILS # (AUTO) 13.7 10^3/uL (1.8-7.8); NEUTROPHILS % (AUTO) 85 % (42-75); PLATELET COUNT 302 10^3/uL (130-400); WHITE BLOOD COUNT 16.1 10^3/uL (4.3-11.0)
[2021-06-14 04:11] LABS: ALBUMIN 2.8 GM/DL (3.2-4.5)
[2021-06-14 04:13] LABS: CALCIUM 8.9 MG/DL (8.5-10.1)
[2021-06-14 04:14] LABS: TOTAL PROTEIN 5.9 GM/DL (6.4-8.2)
[2021-06-14 04:16] LABS: BILIRUBIN,TOTAL 0.6 MG/DL (0.1-1.0)
[2021-06-14 04:17] LABS: CREATININE SERUM 1.56 MG/DL (0.60-1.30); PHOSPHORUS 3.1 MG/DL (2.3-4.7)
[2021-06-14 04:20] LABS: MAGNESIUM 2.1 MG/DL (1.6-2.4)
[2021-06-14 05:09] LABS: ABG BASE EXCESS -2.4 MMOL/L (-2.5-2.5); ABG OXYGEN SATURATION 96 % (94-100); ABG PCO2 50 MMHG (35-45); ABG PO2 81 MMHG (79-93); ABG TCO2 24.8 MMOL/L (21.0-31.0)
[2021-06-14 05:10] LABS: ALLENS TEST POSITIVE; INSPIRED O2 16; VENTILATOR YES
[2021-06-14 05:11] LABS: ABG PH 7.29 (7.37-7.43); PATIENT TEMP 36.9
[2021-06-14] MEDS: NS IV 1000 ML 1,000 ML IV SCH ×2 (05:32→21:49)
[2021-06-14] MEDS: MEROPENEM 500 MG/NS 100 ML IVPB IV SCH ×6 (05:58→21:23)
[2021-06-14 06:23] VITALS: BP 127/63
[2021-06-14] MEDS: MAGNESIUM 1 GM/100 ML IVPB 100 ML IV SCH (06:46)
[2021-06-14] MEDS: POTASSIUM CL 10MEQ/50ML IVPB 50 ML IV SCH (06:46)
[2021-06-14] MEDS: KCL 20 MEQ TAB (K-DUR) PO SCH (06:46)
[2021-06-14] MEDS: NOREPINEPHRINE 8 MG/250 ML 250 ML IV SCH ×2 (06:47→18:14)
[2021-06-14] MEDS: fentaNYL DRIP PRE-MIX 250 ML IV SCH ×2 (06:56→16:39)
--- NOTE | 2021-06-14 07:29 | Diagnostic Imaging Report ---
INDICATION: Cough with pneumonia. Comparison with 06/13/2021. FINDINGS: The left lung is well-aerated with no residual infiltrates noted. There continues to be moderate infiltrate in the right lower lobe and perihilar region. Heart is mildly enlarged. No pneumothorax. Small right basilar effusion. ET tube, NG tube and right jugular line remain in good position. IMPRESSION: 1. There has been improvement with clearing of left lung and decreasing infiltrate noted in the right lower lobe since previous exam. Dictated by: Dictated on workstation # [id number]
[2021-06-14] MEDS: ENOXAPARIN 100 MG/1 ML (LOVENOX) SYR SC SCH ×2 (08:25→21:21)
[2021-06-14] MEDS: CLOPIDOGREL 75 MG (PLAVIX) TABLET PO SCH (08:25)
[2021-06-14] MEDS: PANTOPRAZOLE 40 MG (PROTONIX) VIAL IV SCH (08:25)
--- NOTE | 2021-06-14 08:41 | Progress Note - Surgery ---
JOSE EDUARDO Gloria 06/14/21 0841: Subjective Date Seen by a Provider: Jun 14, 2021 Time Seen by a Provider: 06:55 Subjective/Events-last exam Mr. Laird is being seen s/p bronchoscopy and central line placement secondary to acute respiratory failure. This morning he is intubated and sedated. He is not currently on any pressors. His ventilator settings are as follows: TV 450, RR 20 PEEP 15, FiO2 60%. His WBC has increased slightly since yesterday and his Hgb has increased slightly. BUN and Cr continue to be elevated. Unable to obtain ROS. Focused Exam Lactate Level 06/11/21 14:40: Lactic Acid Level 3.61*H 06/11/21 18:00: Lactic Acid Level 1.66 Objective Exam Vital Signs Date Time Temp Pulse Resp B/P (MAP) Pulse Ox O2 Delivery O2 Flow Rate FiO2 06/14/21 07:39 36.2 06/14/21 07:00 97 06/14/21 07:00 96 20 131/89 97 Mechanical Ventilator 50.00 06/14/21 06:23 96 20 96 60 06/14/21 06:00 97 19 121/65 95 Mechanical Ventilator 50.00 06/14/21 05:00 97 16 137/74 95 Mechanical Ventilator 50.00 06/14/21 04:00 60 06/14/21 04:00 95 Mechanical Ventilator 60 06/14/21 04:00 96 16 125/74 95 Mechanical Ventilator 50.00 06/14/21 03:55 96 129/71 06/14/21 03:00 96 20 136/72 95 Mechanical Ventilator 50.00 06/14/21 02:00 98 13 137/76 95 Mechanical Ventilator 50.00 06/14/21 01:35 98 20 95 60 06/14/21 01:00 98 06/14/21 01:00 98 16 135/73 95 Mechanical Ventilator 50.00 06/14/21 00:00 95 Mechanical Ventilator 60 06/14/21 00:00 99 16 137/75 95 Mechanical Ventilator 50.00 06/14/21 00:00 60 06/14/21 00:00 36.9 06/13/21 23:00 10 16 135/74 94 Mechanical Ventilator 50.00 06/13/21 22:00 95 20 146/86 94 Mechanical Ventilator 75.00 06/13/21 21:28 89 123/71 06/13/21 21:28 90 20 93 60 06/13/21 21:00 89 20 123/71 94 Mechanical Ventilator 75.00 06/13/21 20:00 95 Mechanical Ventilator 60 06/13/21 20:00 60 06/13/21 20:00 92 20 130/78 94 Mechanical Ventilator 75.00 06/13/21 19:57 35.4 06/13/21 19:00 88 20 129/69 93 Mechanical Ventilator 75.00 06/13/21 19:00 88 06/13/21 18:30 89 20 92 50 06/13/21 18:00 87 19 127/71 91 Mechanical Ventilator 75.00 06/13/21 17:00 87 20 129/68 95 Mechanical Ventilator 75.00 06/13/21 16:00 86 19 116/69 95 Mechanical Ventilator 75.00 06/13/21 15:53 60 06/13/21 15:53 95 Mechanical Ventilator 60 06/13/21 15:06 86 20 95 50 06/13/21 15:00 88 19 122/69 96 Mechanical Ventilator 75.00 06/13/21 14:00 85 19 120/69 96 Mechanical Ventilator 75.00 06/13/21 13:00 86 17 121/67 96 Mechanical Ventilator 75.00 06/13/21 12:37 86 06/13/21 12:11 60 06/13/21 12:00 85 19 119/65 95 Mechanical Ventilator 75.00 06/13/21 12:00 95 Mechanical Ventilator 60 06/13/21 12:00 36.0 06/13/21 11:00 85 20 112/63 95 Mechanical Ventilator 75.00 06/13/21 10:51 36.5 85 20 115/65 96 Mechanical Ventilator 75 06/13/21 10:18 87 20 97 60 06/13/21 10:00 87 16 114/67 97 Mechanical Ventilator 75.00 06/13/21 09:00 87 19 112/65 97 Mechanical Ventilator 75.00 06/13/21 08:56 115/66 I & O 06/14/21 07:00 Intake Total 2100 ml Output Total 1805 ml Balance 295 ml Capillary Refill : Less Than 3 Seconds General Appearance: Other (Intubated and sedated) HEENT: Other (ET tube) Neck: Normal Inspection, Other (Right IJ central line) Respiratory: Other (Equal chest rise, mechanical ventilation) Cardiovascular: Regular Rate, Rhythm, Other (Pedal edema) Gastrointestinal: soft, no organomegaly; No mass Extremity: Normal Inspection, Pedal Edema Neurologic/Psychiatric: No Alert, No Oriented x3; Other (Patient intubated and sedated ) Skin: Normal Color, Warm/Dry Lymphatic: No Adenopathy (Head and neck) Results Lab Laboratory Tests 06/13/21 11:54: Glucometer 160H 06/13/21 17:28: Glucometer 152H 06/14/21 00:06: Glucometer 135H 06/14/21 03:50: White Blood Count 16.1H, Red Blood Count 3.05L, Hemoglobin 8.3L, Hematocrit 27L, Mean Corpuscular Volume 89, Mean Corpuscular Hemoglobin 27, Mean Corpuscular Hemoglobin Concent 31L, Red Cell Distribution Width 17.3H, Platelet Count 302, Mean Platelet Volume 9.3, Immature Granulocyte % (Auto) 3, Neutrophils (%) (Auto) 85H, Lymphocytes (%) (Auto) 4L, Monocytes (%) (Auto) 3, Eosinophils (%) (Auto) 5, Basophils (%) (Auto) 0, Neutrophils # (Auto) 13.7H, Lymphocytes # (Auto) 0.7L, Monocytes # (Auto) 0.5, Eosinophils # (Auto) 0.8H, Basophils # (Auto) 0.1, Immature Granulocyte # (Auto) 0.4H, Sodium Level 145, Potassium Level 4.0, Chloride Level 111H, Carbon Dioxide Level 19L, Anion Gap 15H, Blood Urea Nitrogen 36H, Creatinine 1.56H, Estimat Glomerular Filtration Rate 51, BUN/Creatinine Ratio 23, Glucose Level 151H, Calcium Level 8.9, Corrected Calcium 9.9, Phosphorus Level 3.1, Magnesium Level 2.1, Total Bilirubin 0.6, Aspartate Amino Transf (AST/SGOT) 19, Alanine Aminotransferase (ALT/SGPT) 17, Alkaline Phosphatase 86, Total Protein 5.9L, Albumin 2.8L 06/14/21 04:55: Blood Gas Puncture Site LEFT RADIAL, Blood Gas Patient Temperature 36.9, Arterial Blood pH 7.29*L, Arterial Blood Partial Pressure CO2 50H, Arterial Blood Partial Pressure O2 81, Arterial Blood HCO3 23, Arterial Blood Total CO2 24.8, Arterial Blood Oxygen Saturation 96, Arterial Blood Base Excess -2.4, Kush Test POSITIVE, Blood Gas Ventilator Setting YES, Blood Gas Inspired Oxygen 16 Microbiology 06/11/21 Mycobacterial Culture - Preliminary, Resulted 06/11/21 Blood Culture - Preliminary, Resulted No growth 06/11/21 Urine Culture - Final, Complete NO GROWTH Assessment/Plan Assessment/Plan Assessment/Plan Acute respiratory failure, pneumonia - Imaging shows right-sided > left-sided infiltrates - CXR this morning shows improving infiltrates - Requiring large amount of ventilator support Aspiration Hypotension - Not on pressors currently HAWK - BUN and Cr 26 and 2.19 at admission - 36 and 1.36 this morning Anemia - Hgb 8.3 - Continue to monitor. Transfuse if Hgb < 7.0. Elevated D-dimer Plan: Continue IVF and IV meropenem. Give pressors if indicated Central line placed and bronchoscopy with removal foreign body particulate performed yesterday Continue medical management as indicated Manage with medicine and EICU Will continue to monitor. May need repeat bronchoscopy. GARRY CUMMINGS DO 06/15/21 0032: Subjective Subjective/Events-last exam Patient still remains intubated and sedated. Patient not on any pressors. Patient chest x-ray improving. Objective Exam General Appearance: Other (Intubated and sedated) HEENT: Other (ET tube) Neck: Other (Right IJ central line) Respiratory: Other (Equal chest rise, mechanical ventilation) Cardiovascular: Regular Rate, Rhythm, No JVD, Other (Pedal edema) Gastrointestinal: soft, no organomegaly; No mass Extremity: Normal Inspection, Pedal Edema Neurologic/Psychiatric: No Alert, No Oriented x3; Other (Patient intubated and sedated ) Skin: Normal Color, Warm/Dry Lymphatic: No Adenopathy (Head and neck) Assessment/Plan Assessment/Plan Assessment/Plan Acute respiratory failure, pneumonia - Imaging shows right-sided > left-sided infiltrates - CXR this morning shows improving infiltrates - Requiring ventilator support Aspiration Hypotension - Not on pressors currently HAWK - BUN and Cr 26 and 2.19 at admission - 36 and 1.36 this morning Anemia - Hgb 8.3 - Continue to monitor. Transfuse if Hgb < 7.0. Elevated D-dimer Continue IVF and IV meropenem. Give pressors if indicated S/p Central line placed and bronchoscopy with removal foreign body particulate Continue medical management as indicated Manage with medicine and EICU Will sign off, call if needed. Supervisory-Addendum Brief Verification & Attestation Participated in pt care: history, MDM, physical Personally performed: exam, history, MDM, supervision of care Care discussed with: Medical Student Procedures: n/a Results interpretation: Verified all documentation Verification and Attestation of Medical Student E/M Service A medical student performed and documented this service in my presence. I reviewed and verified all information documented by the medical student and made modifications to such information, when appropriate. I personally performed the physical exam and medical decision making. Garry Cummings, Jun 14, 2021,23:10 JOSE EDUARDO Jun 14, 2021 08:41 GARRY CUMMINGS DO Jun 15, 2021 00:32
--- NOTE | 2021-06-14 09:02 | Cardiology Progress Note ---
Subjective Date Seen by Provider: Jun 14, 2021 Time Seen by Provider: 08:50 Subjective/Events-last exam Sedated and intubated Review of Systems General: Other (Unable to provide review of system) Focused Exam Lactate Level 06/11/21 14:40: Lactic Acid Level 3.61*H 06/11/21 18:00: Lactic Acid Level 1.66 Objective-Cardiology Exam Last Set of Vital Signs Vital Signs 06/14/21 06/14/21 06/14/21 07:39 10:18 11:00 Temp 36.2 Pulse 94 Resp 9 B/P (MAP) 137/71 Pulse Ox 95 O2 Delivery OxyMask O2 Flow Rate 6.00 FiO2 55 I&O Intake and Output 06/14/21 00:00 Intake Total 1750 ml Output Total 1000 ml Balance 750 ml Intake Oral 0 ml IV Total 1750 ml Output Urine Total 1000 ml General: Other (Intubated and sedated) HEENT: Mucous Memb Moist/[place] Neck: Supple Lungs: Other (diffuse crackles and wheezing, breathing comfortably on vent) Heart: Regular Rate, Normal S1, Normal S2 Abdomen: Soft Extremities: Other (2+ pitting edema) Skin: No Rashes, No Breakdown Neuro: Other (Sedated and intubated) Psych/Mental Status: Other (Sedated and intubated) Results Lab Laboratory Tests 06/14/21 03:50 A/P-Cardiology Admission Diagnosis Acute respiratory failure Congestive heart failure, acute on chronic left ventricular diastolic dysfunction, hypertensive heart disease Coronary artery disease Pneumonia Assessment/Plan Acute respiratory failure, ventilator dependent, probably secondary to pneumonia and acute pulmonary edema. Receiving antibiotic. Continue to monitor Receiving antibiotic, currently off pressors. I am adding Lasix 40 mg twice daily and evaluate tolerance and response Pneumonia, sepsis, currently off pressors. Continue to monitor closely, receiving antibiotics. Congestive heart failure, acute on chronic left ventricular diastolic dysfunction, normal systolic function, last echo was done on May 31, 2021 with ejection fraction 50 to 55%. PA pressure 20 to 25 mmHg. Had mild elevation in BNP. Acute renal insufficiency, continue to monitor renal function Multifocal pneumonia, receiving antibiotics. CXR showing some improvement. Managed by primary care physician History of recurrent chest pain, musculoskeletal. Coronary artery disease, - cath 01/09/18: proximal circumflex artery stented with Rocío 3.012 mm; mid right coronary artery stented with 2.512 mm Rocío; mild to moderate disease in the proximal LAD, severe stenosis at the ostium of first diagonal artery that is very small artery. - cath 02/04/19: total occlusion of the left PDA off the circumflex artery, patent stent in the proximal circumflex. Patent stent in the midright coronary artery. Mild disease in the LAD. - cath 12/29/20: patent stent in the proximal circumflex and right coronary artery. Severe stenosis at the distal circumflex artery, primary stenting using 2.25 x 23 mm expanded to 2.35 mm with excellent results. Has severe stenosis/subtotal occlusion at the distal right posterior descending artery, very small artery not amenable to intervention. Mild to moderate disease in the LAD. Patient is maintained on Plavix and Xarelto, he is allergic to aspirin. 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 Diabetes mellitus, h/o DKAs in the past Obesity Supervisory-Addendum Brief Supervisory Addendum Participated in pt care: history, MDM, physical Personally performed: exam, history, MDM Care discussed with: ONOFRE Results interpretation: Verified all documentation Notes: Patient was seen and evaluated with Marsha, examination performed, management plan was discussed, agree with the current scribed note, I made few changes to the note using Italic font Patient was seen at bedside, sedated and intubated Adding diuretics Monitor tolerance and response Monitor electrolyte and renal function MARSHA ZHANG Jun 14, 2021 09:02 CROW KNIGHT MD Jun 14, 2021 11:20
[2021-06-14] MEDS: RT-ALBUTEROL/IPRATROPIUM 3 ML (DUONEB) VIAL INH SCH ×4 (10:04→22:27)
[2021-06-14 10:18] VITALS: BP 126/74
--- NOTE | 2021-06-14 12:11 | Progress Note ---
Subjective Subjective/Events-last exam Patient intubated and sedated. Currently on SBT. Review of Systems Unable to access due to intubation and sedation Focused Exam Lactate Level 06/11/21 14:40: Lactic Acid Level 3.61*H 06/11/21 18:00: Lactic Acid Level 1.66 Objective Exam Last Set of Vital Signs Vital Signs Date Time Temp Pulse Resp B/P (MAP) Pulse Ox O2 Delivery O2 Flow Rate FiO2 06/14/21 11:47 36.0 06/14/21 11:00 94 9 137/71 95 OxyMask 6.00 06/14/21 10:18 55 Capillary Refill : Less Than 3 Seconds I&O Intake and Output 06/14/21 00:00 Intake Total 1750 ml Output Total 1000 ml Balance 750 ml Intake Oral 0 ml IV Total 1750 ml Output Urine Total 1000 ml General: Other (Intubated and sedated) Lungs: Other (diffuse crackles and some wheezing) Heart: Regular Rate, No Murmurs Abdomen: Normal Bowel Sounds, Soft Extremities: Other (1+ pitting edemaPatient) Results/Procedures Lab Laboratory Tests 06/13/21 17:28: Glucometer 152H 06/14/21 00:06: Glucometer 135H 06/14/21 03:50: White Blood Count 16.1H, Red Blood Count 3.05L, Hemoglobin 8.3L, Hematocrit 27L, Mean Corpuscular Volume 89, Mean Corpuscular Hemoglobin 27, Mean Corpuscular Hemoglobin Concent 31L, Red Cell Distribution Width 17.3H, Platelet Count 302, Mean Platelet Volume 9.3, Immature Granulocyte % (Auto) 3, Neutrophils (%) (Auto) 85H, Lymphocytes (%) (Auto) 4L, Monocytes (%) (Auto) 3, Eosinophils (%) (Auto) 5, Basophils (%) (Auto) 0, Neutrophils # (Auto) 13.7H, Lymphocytes # (Auto) 0.7L, Monocytes # (Auto) 0.5, Eosinophils # (Auto) 0.8H, Basophils # (Auto) 0.1, Immature Granulocyte # (Auto) 0.4H, Sodium Level 145, Potassium Level 4.0, Chloride Level 111H, Carbon Dioxide Level 19L, Anion Gap 15H, Blood Urea Nitrogen 36H, Creatinine 1.56H, Estimat Glomerular Filtration Rate 51, BUN/Creatinine Ratio 23, Glucose Level 151H, Calcium Level 8.9, Corrected Calcium 9.9, Phosphorus Level 3.1, Magnesium Level 2.1, Total Bilirubin 0.6, Aspartate Amino Transf (AST/SGOT) 19, Alanine Aminotransferase (ALT/SGPT) 17, Alkaline Phosphatase 86, Total Protein 5.9L, Albumin 2.8L 06/14/21 04:55: Blood Gas Puncture Site LEFT RADIAL, Blood Gas Patient Temperature 36.9, Arterial Blood pH 7.29*L, Arterial Blood Partial Pressure CO2 50H, Arterial Blood Partial Pressure O2 81, Arterial Blood HCO3 23, Arterial Blood Total CO2 24.8, Arterial Blood Oxygen Saturation 96, Arterial Blood Base Excess -2.4, Kush Test POSITIVE, Blood Gas Ventilator Setting YES, Blood Gas Inspired Oxygen 16 06/14/21 11:31: Glucometer 146H Microbiology 06/11/21 Mycobacterial Culture - Preliminary, Resulted 06/11/21 Blood Culture - Preliminary, Resulted No growth 06/11/21 Urine Culture - Final, Complete NO GROWTH Assessment/Plan Assessment/Plan (1) Unresponsive episode Status: Acute Assessment & Plan: 06/12: Patient found down with poor oxygenation, following commands when sedation weaned (2) Acute and chronic respiratory failure with hypoxia Status: Acute Assessment & Plan: 06/12: Intubated, eICU managing, maxed out on FiO2, antibiotics and steroids, General surgery consulted for bronch 06/13: Peep was increased last night and able to wean FiO2 75%, patient is not candidate for SBT at this time 06/14: Currently on SBT, hopefully looking at extubation later today (3) Acute on chronic heart failure with preserved ejection fraction (HFpEF) Status: Acute Assessment & Plan: - Dr Ortega Consulted, appreciate recommendations (4) Aspiration into airway Status: Acute Qualifiers: Qualified Codes: T17.908A - Unspecified foreign body in respiratory tract, part unspecified causing other injury, initial encounter (5) COPD (chronic obstructive pulmonary disease) Status: Chronic Qualifiers: (6) Coronary artery disease without angina pectoris Status: Chronic Qualifiers: Qualified Codes: I25.10 - Atherosclerotic heart disease of [place] coronary artery without angina pectoris (7) Insulin dependent diabetes mellitus with complications Status: Chronic Assessment & Plan: - SSI (8) Acute kidney injury Status: Acute Assessment & Plan: - IVFs, Will monitor closely 06/13: Improved mildly, will continue to monitor, strict I/Os 06/14: Cr continues to be stable (9) DVT prophylaxis Status: Acute Assessment & Plan: - JOCELYN Conley MD Jun 14, 2021 12:11
[2021-06-14 14:29] VITALS: BP 161/76
[2021-06-14] MEDS: FUROSEMIDE 40 MG/4 ML INJ (LASIX) IVP SCH (16:40)
[2021-06-14 18:47] VITALS: BP 136/67
[2021-06-14] MEDS: polyethylene glycoL POWDER 17 GM (MIRALAX) PACK NG SCH (21:22)
[2021-06-14 22:40] VITALS: BP 128/62
[2021-06-15] MEDS: fentaNYL DRIP PRE-MIX 250 ML IV SCH ×3 (00:35→18:47)
[2021-06-15 02:00] VITALS: BP 120/64
[2021-06-15] MEDS: RT-ALBUTEROL/IPRATROPIUM 3 ML (DUONEB) VIAL INH SCH ×6 (02:00→22:35)
[2021-06-15] MEDS: inSUlin ASPART (NovoLOG) 1 UNIT/0.01 ML (CHARGE PER UNIT) SC SCH ×5 (02:08→23:57)
[2021-06-15 05:00] LABS: BASOPHILS % (AUTO) 0 % (0-10); EOSINOPHILS # (AUTO) 0.4 10^3/uL (0.0-0.3); EOSINOPHILS % (AUTO) 3 % (0-10); HEMATOCRIT 24 % (40-54); HEMOGLOBIN 7.3 g/dL (13.3-17.7); LYMPHOCYTES # (AUTO) 0.8 10^3/uL (1.0-4.0); LYMPHOCYTES % (AUTO) 6 % (12-44); MEAN CORPUSCULAR HEMOGLOBIN 27 pg (25-34); MEAN CORPUSCULAR HGB CONC 30 g/dL (32-36); MEAN CORPUSCULAR VOLUME 88 fL (80-99); MEAN PLATELET VOLUME 9.5 fL (9.0-12.2); MONOCYTES # (AUTO) 0.7 10^3/uL (0.0-1.0); MONOCYTES % (AUTO) 5 % (0-12); NEUTROPHILS # (AUTO) 11.5 10^3/uL (1.8-7.8); NEUTROPHILS % (AUTO) 86 % (42-75); PLATELET COUNT 268 10^3/uL (130-400); WHITE BLOOD COUNT 13.4 10^3/uL (4.3-11.0)
[2021-06-15 05:07] LABS: ABG OXYGEN SATURATION 95 % (94-100); ABG PCO2 47 MMHG (35-45); ABG PO2 67 MMHG (79-93); ABG TCO2 24.8 MMOL/L (21.0-31.0)
[2021-06-15 05:12] LABS: ALLENS TEST YES-POS; PATIENT TEMP 36.7; VENTILATOR YES
[2021-06-15 05:13] LABS: ABG PH 7.32 (7.37-7.43)
[2021-06-15 05:22] LABS: ALBUMIN 2.5 GM/DL (3.2-4.5); BILIRUBIN,TOTAL 0.4 MG/DL (0.1-1.0); CALCIUM 8.7 MG/DL (8.5-10.1); CREATININE SERUM 1.35 MG/DL (0.60-1.30); MAGNESIUM 1.9 MG/DL (1.6-2.4); PHOSPHORUS 2.8 MG/DL (2.3-4.7); POTASSIUM 3.7 MMOL/L (3.6-5.0); TOTAL PROTEIN 5.5 GM/DL (6.4-8.2)
[2021-06-15] MEDS: MEROPENEM 500 MG/NS 100 ML IVPB IV SCH ×6 (05:32→21:33)
[2021-06-15] MEDS: POTASSIUM CL 10MEQ/50ML IVPB 50 ML IV SCH (06:11)
[2021-06-15] MEDS: KCL 20 MEQ TAB (K-DUR) PO SCH (06:11)
[2021-06-15] MEDS: MAGNESIUM 1 GM/100 ML IVPB 100 ML IV SCH (06:11)
[2021-06-15] MEDS: FUROSEMIDE 40 MG/4 ML INJ (LASIX) IVP SCH ×2 (06:46→18:47)
[2021-06-15 06:57] VITALS: BP 127/64
[2021-06-15] MEDS: NOREPINEPHRINE 8 MG/250 ML 250 ML IV SCH ×2 (07:24→18:48)
[2021-06-15] MEDS: ENOXAPARIN 100 MG/1 ML (LOVENOX) SYR SC SCH ×2 (07:47→22:15)
[2021-06-15] MEDS: CLOPIDOGREL 75 MG (PLAVIX) TABLET PO SCH (07:47)
[2021-06-15] MEDS: PANTOPRAZOLE 40 MG (PROTONIX) VIAL IV SCH (07:47)
--- NOTE | 2021-06-15 08:26 | Cardiology Progress Note ---
Subjective Date Seen by Provider: Jun 15, 2021 Time Seen by Provider: 08:25 Subjective/Events-last exam Patient is sedated and intubated. Failed weaning yesterday. Review of Systems General: Other (Unable to provide review of system) Objective-Cardiology Exam Last Set of Vital Signs Vital Signs 06/15/21 06/15/21 06/15/21 06/15/21 06/15/21 06:00 06:57 07:00 07:42 08:11 Temp 37.4 Pulse 92 Resp 20 B/P (MAP) 118/61 Pulse Ox 95 O2 Delivery Mechanical Ventilator O2 Flow Rate 55.00 FiO2 50 I&O Intake and Output 06/15/21 00:00 Intake Total 1450 ml Output Total 2305 ml Balance -855 ml Intake Oral 0 ml IV Total 1450 ml Output Urine Total 1705 ml Gastric Drainage Total 600 ml General: Other (Intubated and sedated) HEENT: Mucous Memb Moist/[place] Neck: Supple Lungs: Other (diffuse crackles and some wheezing) Heart: Regular Rate, No Murmurs Abdomen: Normal Bowel Sounds, Soft Extremities: Other (1+ pitting edemaPatient) Skin: No Rashes, No Breakdown Neuro: Other (Sedated and intubated) Psych/Mental Status: Other (Sedated and intubated) Results Lab Laboratory Tests 06/15/21 04:45 A/P-Cardiology Admission Diagnosis Acute respiratory failure Congestive heart failure, acute on chronic left ventricular diastolic dysfunction, hypertensive heart disease Coronary artery disease Pneumonia Assessment/Plan Acute respiratory failure, ventilator dependent, probably secondary to pneumonia and acute pulmonary edema. Receiving antibiotic. Continue to monitor Receiving antibiotic, currently off pressors. Started on Lasix 40 mg IV twice daily, continue to monitor Pneumonia, sepsis, currently off pressors. Continue to monitor closely, receiving antibiotics. Congestive heart failure, acute on chronic left ventricular diastolic dysfunction, normal systolic function, last echo was done on May 31, 2021 with ejection fraction 50 to 55%. PA pressure 20 to 25 mmHg. Had mild elevation in BNP. Acute renal insufficiency, continue to monitor renal function Multifocal pneumonia, receiving antibiotics. CXR showing some improvement. Managed by primary care physician History of recurrent chest pain, musculoskeletal. Coronary artery disease, - cath 01/09/18: proximal circumflex artery stented with Rocío 3.012 mm; mid right coronary artery stented with 2.512 mm Rocío; mild to moderate disease in the proximal LAD, severe stenosis at the ostium of first diagonal artery that is very small artery. - cath 02/04/19: total occlusion of the left PDA off the circumflex artery, patent stent in the proximal circumflex. Patent stent in the midright coronary artery. Mild disease in the LAD. - cath 12/29/20: patent stent in the proximal circumflex and right coronary artery. Severe stenosis at the distal circumflex artery, primary stenting using 2.25 x 23 mm expanded to 2.35 mm with excellent results. Has severe stenosis/subtotal occlusion at the distal right posterior descending artery, very small artery not amenable to intervention. Mild to moderate disease in the LAD. Patient is maintained on Plavix and Xarelto, he is allergic to aspirin. Currently receiving Plavix and Lovenox Allergy to aspirin causing angioedema, Hypertension, monitor blood pressure Hyperlipidemia, planning to restart statin once extubated H/o frequent ventricular ectopy Mild bilateral carotid stenosis Carotid ultrasound was done in December 2018 Family history of heart disease History of psoriasis. Diabetes mellitus, h/o DKAs in the past Obesity CROW KNIGHT MD Jun 15, 2021 08:26
--- NOTE | 2021-06-15 09:40 | Tele-ICU Progress Note ---
Subjective Date Seen by a Provider: Jun 15, 2021 Time Seen by a Provider: 08:45 Subjective/Events-last exam This virtual visit was conducted using real time audio/video. Thank you for asking us to see this patient for respiratory insufficiency due to B asp pna. Also resp arrest, shock Recent events: Decreasing O2, PEEP. PE: VSS. O2 sat 93% on 50%/+11. HEENT: No obvious abnormalities. Chest: wheezes on auscultation. CV: RRR S1 S2 No murmur or added sounds. Abd: Non-tender. Bowel sounds Y. : Unremarkable. [place] Y. PATENT SEARCHER/psychiatric: Grossly intact. No obvious focal findings. Extremities: 1+ edema. Capillary refill < 3 seconds. Skin: unremarkable. Results: Elevated BUN 34, Creat 1.35, BG 187, D-dimer 4.6. Decreased Hb 7.3, A lb 2.5. B.32/47/67. CXR: Decreased infilts.. Available chart/ vitals / labs / images reviewed. Video assessment done using teleICU camera, rest of exam as per RN. A/P: Respiratory insufficiency: Continue present management with vent., duonebs, prop., fent. Wean as laureen. No SBT today. Monitor for increasing oxygenation needs. Critical Care: critically ill patient. Cont. PPI, abx, lasix, plavix, SSI. Discussed with RN RT Melissa. Asked RN to reach out to eICU if any questions or concerns later. Time spent with patient/coordination of care with other health professionals (mins):25 Sepsis Event Evaluation Height, Weight, BMI Height: 5'9.00" Weight: 247lbs. 7.0oz. 112.413474yb; 36.61 BMI Method:Stated Exam Exam Patient acknowledged, consented, and participated in this virtual visit which was conducted using real time audio/video Vital Signs Date Time Temp Pulse Resp B/P (MAP) Pulse Ox O2 Delivery O2 Flow Rate FiO2 06/15/21 09:20 98 06/15/21 09:00 98 8 141/68 91 Mechanical Ventilator 50.00 06/15/21 08:11 50 06/15/21 08:00 95 Mechanical Ventilator 50 06/15/21 08:00 97 153/72 93 Mechanical Ventilator 50.00 06/15/21 07:42 37.4 06/15/21 07:00 92 06/15/21 07:00 92 136/67 96 Mechanical Ventilator 50.00 06/15/21 06:57 92 20 95 55 06/15/21 06:00 89 20 118/61 95 Mechanical Ventilator 55.00 06/15/21 05:00 93 20 130/62 95 Mechanical Ventilator 55.00 06/15/21 04:00 93 19 124/59 94 Mechanical Ventilator 55.00 06/15/21 04:00 95 Mechanical Ventilator 55 06/15/21 04:00 60 06/15/21 03:14 94 122/54 06/15/21 03:00 95 19 122/59 92 Mechanical Ventilator 55.00 06/15/21 02:00 91 23 95 55 06/15/21 02:00 90 19 118/58 95 Mechanical Ventilator 55.00 06/15/21 01:00 90 06/15/21 01:00 90 20 118/58 95 Mechanical Ventilator 55.00 06/15/21 00:00 60 06/15/21 00:00 95 Mechanical Ventilator 55 06/15/21 00:00 36.3 94 20 152/72 95 Mechanical Ventilator 55.00 06/14/21 23:00 97 19 133/63 97 Mechanical Ventilator 55.00 06/14/21 22:40 95 23 100 55 06/14/21 22:00 93 19 124/66 96 Mechanical Ventilator 55.00 06/14/21 21:50 95 126/64 06/14/21 21:00 96 20 129/63 95 Mechanical Ventilator 55.00 06/14/21 20:00 95 Mechanical Ventilator 60 06/14/21 20:00 100 20 127/60 96 Mechanical Ventilator 55.00 06/14/21 20:00 60 06/14/21 19:26 36.5 06/14/21 19:00 102 06/14/21 19:00 102 20 133/67 96 Mechanical Ventilator 55.00 06/14/21 18:47 102 23 98 55 06/14/21 18:00 98 19 132/65 95 OxyMask 6.00 06/14/21 17:00 100 15 136/69 94 OxyMask 6.00 06/14/21 16:39 101 138/71 06/14/21 16:11 60 06/14/21 16:00 105 16 140/66 95 OxyMask 6.00 06/14/21 16:00 95 Mechanical Ventilator 55 06/14/21 15:34 36.3 06/14/21 15:00 105 5 139/74 95 OxyMask 6.00 06/14/21 14:29 100 23 98 55 06/14/21 14:00 102 8 150/73 98 OxyMask 6.00 06/14/21 13:18 100 148/72 06/14/21 13:00 105 06/14/21 13:00 101 5 148/72 95 OxyMask 6.00 06/14/21 12:11 60 06/14/21 12:00 95 Mechanical Ventilator 55 06/14/21 12:00 102 20 152/95 97 OxyMask 6.00 06/14/21 11:47 36.0 06/14/21 11:00 94 9 137/71 95 OxyMask 6.00 06/14/21 10:38 100 OxyMask 6.00 06/14/21 10:18 97 20 98 55 06/14/21 10:00 90 13 134/72 95 OxyMask 11.00 I & O 06/15/21 07:00 Intake Total 200 ml Output Total 1775 ml Balance -1575 ml Height & Weight Height: 5'9.00" Weight: 247lbs. 7.0oz. 112.596082ft; 36.61 BMI Method:Stated General Appearance: Other (Intubated and sedated) HEENT: Other (ET tube) Neck: Normal Inspection, Other (Right IJ central line) Respiratory: Other (Equal chest rise, mechanical ventilation) Cardiovascular: Regular Rate, Rhythm, Other (Pedal edema) Capillary Refill: Less Than 3 Seconds Gastrointestinal: soft, no organomegaly; No mass Extremity: Normal Inspection, Pedal Edema Neurologic/Psychiatric: No Alert, No Oriented x3; Other (Patient intubated and sedated ) Skin: Normal Color, Warm/Dry Lymphatic: No Adenopathy (Head and neck) Results Lab Laboratory Tests 06/14/21 03:50 06/15/21 04:45 Assessment/Plan Assessment/Plan See free text. Critical Care: Ventilator Management ANABELA RANGEL MD Jun 15, 2021 09:40
[2021-06-15 11:01] VITALS: BP 133/66
[2021-06-15] MEDS: NS IV 1000 ML 1,000 ML IV SCH (11:15)
[2021-06-15 15:29] VITALS: BP 130/67
--- NOTE | 2021-06-15 17:49 | Progress Note ---
Subjective Subjective/Events-last exam Minimal adjustment have been made to vent setting. No ON events. Continues to be vent dependent Review of Systems Unable to access due to intubation and sedation Objective Exam Last Set of Vital Signs Vital Signs Date Time Temp Pulse Resp B/P (MAP) Pulse Ox O2 Delivery O2 Flow Rate FiO2 06/15/21 17:00 94 20 119/61 88 Mechanical Ventilator 50.00 06/15/21 15:55 50 06/15/21 12:00 36.4 Capillary Refill : Less Than 3 Seconds I&O Intake and Output 06/15/21 00:00 Intake Total 1450 ml Output Total 2305 ml Balance -855 ml Intake Oral 0 ml IV Total 1450 ml Output Urine Total 1705 ml Gastric Drainage Total 600 ml General: Other (Intubated and sedated) Lungs: Other (diffuse crackles) Heart: Regular Rate Extremities: Other (1+ pitting edema equal bilaterally) Results/Procedures Lab Laboratory Tests 06/15/21 04:45: White Blood Count 13.4H, Red Blood Count 2.74L, Hemoglobin 7.3L, Hematocrit 24L, Mean Corpuscular Volume 88, Mean Corpuscular Hemoglobin 27, Mean Corpuscular Hemoglobin Concent 30L, Red Cell Distribution Width 17.3H, Platelet Count 268, Mean Platelet Volume 9.5, Immature Granulocyte % (Auto) 0, Neutrophils (%) (Auto) 86H, Lymphocytes (%) (Auto) 6L, Monocytes (%) (Auto) 5, Eosinophils (%) (Auto) 3, Basophils (%) (Auto) 0, Neutrophils # (Auto) 11.5H, Lymphocytes # (Auto) 0.8L, Monocytes # (Auto) 0.7, Eosinophils # (Auto) 0.4H, Basophils # (Auto) 0.0, Immature Granulocyte # (Auto) 0.0, Sodium Level 145, Potassium Level 3.7, Chloride Level 113H, Carbon Dioxide Level 19L, Anion Gap 13, Blood Urea Nitrogen 34H, Creatinine 1.35H, Estimat Glomerular Filtration Rate 60, BUN/Creatinine Ratio 25, Glucose Level 187H, Calcium Level 8.7, Corrected Calcium 9.9, Phosphorus Level 2.8, Magnesium Level 1.9, Total Bilirubin 0.4, Aspartate Amino Transf (AST/SGOT) 12, Alanine Aminotransferase (ALT/SGPT) 8, Alkaline Phosphatase 87, Total Protein 5.5L, Albumin 2.5L 06/15/21 04:57: Blood Gas Puncture Site RRAD, Blood Gas Patient Temperature 36.7, Arterial Blood pH 7.32*L, Arterial Blood Partial Pressure CO2 47H, Arterial Blood Partial Pressure O2 67L, Arterial Blood HCO3 23, Arterial Blood Total CO2 24.8, Arterial Blood Oxygen Saturation 95, Arterial Blood Base Excess -2.0, Kush Test YES-POS, Blood Gas Ventilator Setting YES, Blood Gas Inspired Oxygen 55% 06/15/21 11:54: Glucometer 132H Microbiology 06/11/21 Mycobacterial Culture - Preliminary, Resulted 06/11/21 Blood Culture - Preliminary, Resulted No growth 06/11/21 Urine Culture - Final, Complete NO GROWTH Assessment/Plan Assessment/Plan (1) Unresponsive episode Status: Acute Assessment & Plan: 06/12: Patient found down with poor oxygenation, following commands when sedation weaned (2) Acute and chronic respiratory failure with hypoxia Status: Acute Assessment & Plan: 06/12: Intubated, eICU managing, maxed out on FiO2, antibiotics and steroids, General surgery consulted for bronch 06/13: Peep was increased last night and able to wean FiO2 75%, patient is not candidate for SBT at this time 06/14: Currently on SBT, hopefully looking at extubation later today 06/15: Not candidate for SBT today, Continue to titrate peep as tolerated. (3) Acute on chronic heart failure with preserved ejection fraction (HFpEF) Status: Acute Assessment & Plan: - Dr Ortega Consulted, appreciate recommendations (4) Aspiration into airway Status: Acute Qualifiers: Qualified Codes: T17.908A - Unspecified foreign body in respiratory tract, part unspecified causing other injury, initial encounter (5) COPD (chronic obstructive pulmonary disease) Status: Chronic Qualifiers: (6) Coronary artery disease without angina pectoris Status: Chronic Qualifiers: Qualified Codes: I25.10 - Atherosclerotic heart disease of [place] coronary artery without angina pectoris (7) Insulin dependent diabetes mellitus with complications Status: Chronic Assessment & Plan: - SSI (8) Acute kidney injury Status: Acute Assessment & Plan: - IVFs, Will monitor closely 06/13: Improved mildly, will continue to monitor, strict I/Os 06/14: Cr continues to be stable (9) DVT prophylaxis Status: Acute Assessment & Plan: - JOCELYN Conley MD Jun 15, 2021 17:49
[2021-06-15 18:55] VITALS: BP 150/71
[2021-06-15] MEDS: polyethylene glycoL POWDER 17 GM (MIRALAX) PACK NG SCH (21:33)
[2021-06-15 22:35] VITALS: BP 135/66
[2021-06-16] MEDS: NS IV 1000 ML 1,000 ML IV SCH ×2 (01:33→14:20)
[2021-06-16] MEDS: RT-ALBUTEROL/IPRATROPIUM 3 ML (DUONEB) VIAL INH SCH ×5 (02:26→21:29)
[2021-06-16 02:27] VITALS: BP 120/61
[2021-06-16 04:23] LABS: BASOPHILS % (AUTO) 1 % (0-10); EOSINOPHILS # (AUTO) 0.3 10^3/uL (0.0-0.3); EOSINOPHILS % (AUTO) 3 % (0-10); HEMATOCRIT 24 % (40-54); HEMOGLOBIN 7.1 g/dL (13.3-17.7); LYMPHOCYTES # (AUTO) 0.7 10^3/uL (1.0-4.0); LYMPHOCYTES % (AUTO) 8 % (12-44); MEAN CORPUSCULAR HEMOGLOBIN 27 pg (25-34); MEAN CORPUSCULAR HGB CONC 30 g/dL (32-36); MEAN CORPUSCULAR VOLUME 88 fL (80-99); MEAN PLATELET VOLUME 9.6 fL (9.0-12.2); MONOCYTES # (AUTO) 0.7 10^3/uL (0.0-1.0); MONOCYTES % (AUTO) 8 % (0-12); NEUTROPHILS # (AUTO) 7.1 10^3/uL (1.8-7.8); NEUTROPHILS % (AUTO) 80 % (42-75); PLATELET COUNT 262 10^3/uL (130-400); WHITE BLOOD COUNT 8.8 10^3/uL (4.3-11.0)
[2021-06-16 04:35] LABS: ALBUMIN 2.5 GM/DL (3.2-4.5); POTASSIUM 3.6 MMOL/L (3.6-5.0)
[2021-06-16 04:36] LABS: CALCIUM 8.8 MG/DL (8.5-10.1)
[2021-06-16 04:38] LABS: TOTAL PROTEIN 5.6 GM/DL (6.4-8.2)
[2021-06-16 04:39] LABS: BILIRUBIN,TOTAL 0.4 MG/DL (0.1-1.0)
[2021-06-16 04:41] LABS: CREATININE SERUM 1.2 MG/DL (0.60-1.30)
[2021-06-16 04:45] LABS: MAGNESIUM 1.9 MG/DL (1.6-2.4)
[2021-06-16 05:31] LABS: ABG BASE EXCESS -2.2 MMOL/L (-2.5-2.5); ABG OXYGEN SATURATION 94 % (94-100); ABG PCO2 48 MMHG (35-45); ABG PO2 75 MMHG (79-93); ABG TCO2 24.2 MMOL/L (21.0-31.0)
[2021-06-16 05:36] LABS: ABG PH 7.31 (7.37-7.43); ALLENS TEST YES-POS; INSPIRED O2 60%; PATIENT TEMP 38.4; VENTILATOR YES
[2021-06-16] MEDS ORDERED: POTASSIUM CL 10MEQ/50ML IVPB 100 ML IV ONE (05:47)
[2021-06-16] MEDS: MEROPENEM 500 MG/NS 100 ML IVPB IV SCH ×2 (05:51)
[2021-06-16] MEDS: POTASSIUM CL 10MEQ/50ML IVPB 50 ML IV SCH ×3 (05:56→06:42)
[2021-06-16] MEDS: inSUlin ASPART (NovoLOG) 1 UNIT/0.01 ML (CHARGE PER UNIT) SC SCH ×3 (06:42→18:32)
[2021-06-16] MEDS: MAGNESIUM 1 GM/100 ML IVPB 100 ML IV SCH (06:42)
[2021-06-16] MEDS: KCL 20 MEQ TAB (K-DUR) PO SCH (06:42)
[2021-06-16 07:01] VITALS: BP 120/61
[2021-06-16] MEDS: NOREPINEPHRINE 8 MG/250 ML 250 ML IV SCH ×2 (07:43→22:14)
[2021-06-16] MEDS: ENOXAPARIN 100 MG/1 ML (LOVENOX) SYR SC SCH (07:43)
[2021-06-16] MEDS: CLOPIDOGREL 75 MG (PLAVIX) TABLET PO SCH (08:29)
[2021-06-16] MEDS: FUROSEMIDE 40 MG/4 ML INJ (LASIX) IVP SCH ×2 (08:29→17:13)
[2021-06-16] MEDS: PANTOPRAZOLE 40 MG (PROTONIX) VIAL IV SCH (08:29)
--- NOTE | 2021-06-16 08:41 | Tele-ICU Progress Note ---
Subjective Date Seen by a Provider: Jun 16, 2021 Time Seen by a Provider: 07:45 Subjective/Events-last exam This virtual visit was conducted using real time audio/video. Thank you for asking us to see this patient for respiratory insufficiency due to B asp pna. Also resp arrest, shock. Recent events: PVCs, Bigem. PE: VSS. O2 sat 92% on 60%/+8. HEENT: No obvious abnormalities. Chest: wheezes on auscultation. CV: RRR S1 S2 No murmur or added sounds. Abd: Non-tender. Bowel sounds Y. OGT to LIS. : Unremarkable. Thompson Y. [employer]/psychiatric: Grossly intact. No obvious focal findings. Extremities: 1+ edema. Capillary refill < 3 seconds. Skin: unremarkable. Results: Elevated Na 148, BUN 27, , BG 159, D-dimer 4.6. Decreased Hb 7.1, Alb 2.5. B.31/48/75 on 60%/+5. CXR: Decreased infilts.. Available chart/ vitals / labs / images reviewed. Video assessment done using teleICU camera, rest of exam as per RN. A/P: Respiratory insufficiency: Continue present management with vent., duonebs, prop., fent. Wean as laureen. No SBT today. Monitor for increasing oxygenation needs. Critical Care: critically ill patient. Cont. PPI, abx, lasix, plavix, SSI. Imlan held for low Hb. Discussed with RN RT Melissa. Asked RN to reach out to eICU if any questions or concerns later. Time spent with patient/coordination of care with other health professionals (mins):25 Sepsis Event Evaluation Height, Weight, BMI Height: 5'9.00" Weight: 247lbs. 7.0oz. 112.365082ht; 36.92 BMI Method:Stated Exam Exam Patient acknowledged, consented, and participated in this virtual visit which was conducted using real time audio/video Vital Signs Date Time Temp Pulse Resp B/P (MAP) Pulse Ox O2 Delivery O2 Flow Rate FiO2 06/16/21 08:00 107 15 120/61 93 Mechanical Ventilator 60.00 06/16/21 07:01 110 24 92 60 06/16/21 07:00 110 06/16/21 07:00 112 18 128/63 94 Mechanical Ventilator 60.00 06/16/21 06:03 112 146/61 06/16/21 06:00 111 20 146/61 93 Mechanical Ventilator 60.00 06/16/21 05:45 107 24 91 06/16/21 05:00 101 20 127/55 91 Mechanical Ventilator 60.00 06/16/21 04:11 60 06/16/21 04:00 96 20 118/58 94 Mechanical Ventilator 60.00 06/16/21 04:00 92 Mechanical Ventilator 60 06/16/21 03:00 97 20 123/59 94 Mechanical Ventilator 60.00 06/16/21 02:27 90 20 94 60 06/16/21 02:05 94 127/63 06/16/21 02:00 95 20 120/61 94 Mechanical Ventilator 60.00 06/16/21 01:00 93 06/16/21 01:00 93 20 128/65 93 Mechanical Ventilator 60.00 06/16/21 00:11 60 06/16/21 00:00 94 20 122/63 94 Mechanical Ventilator 60.00 06/16/21 00:00 94 Mechanical Ventilator 60 06/15/21 23:57 36.9 06/15/21 23:00 98 20 125/62 94 Mechanical Ventilator 60.00 06/15/21 22:35 95 20 94 60 06/15/21 22:00 98 13 134/68 94 Mechanical Ventilator 60.00 06/15/21 21:00 100 13 130/65 93 Mechanical Ventilator 60.00 06/15/21 20:59 100 137/69 06/15/21 20:26 100 20 137/69 93 Mechanical Ventilator 60.00 06/15/21 20:11 60 06/15/21 20:00 93 Mechanical Ventilator 60 06/15/21 20:00 36.6 06/15/21 20:00 103 15 137/69 94 Mechanical Ventilator 50.00 06/15/21 19:00 101 12 153/74 90 Mechanical Ventilator 50.00 06/15/21 19:00 101 06/15/21 18:55 99 20 90 60 06/15/21 18:00 95 20 154/77 88 Mechanical Ventilator 50.00 06/15/21 17:00 94 20 119/61 88 Mechanical Ventilator 50.00 06/15/21 16:11 55 06/15/21 16:00 95 20 120/58 88 Mechanical Ventilator 50.00 06/15/21 15:55 95 Mechanical Ventilator 50 06/15/21 15:42 95 130/67 06/15/21 15:29 95 20 90 50 06/15/21 15:00 90 20 115/63 89 Mechanical Ventilator 50.00 06/15/21 14:00 95 20 119/57 87 Mechanical Ventilator 50.00 06/15/21 13:00 98 06/15/21 13:00 97 16 126/57 86 Mechanical Ventilator 50.00 06/15/21 12:11 50 06/15/21 12:00 36.4 06/15/21 12:00 103 7 166/85 90 Mechanical Ventilator 50.00 06/15/21 12:00 95 Mechanical Ventilator 50 06/15/21 11:01 94 22 95 50 06/15/21 11:00 92 9 133/66 94 Mechanical Ventilator 50.00 06/15/21 10:00 94 6 128/62 91 Mechanical Ventilator 50.00 06/15/21 09:20 98 06/15/21 09:00 98 8 141/68 91 Mechanical Ventilator 50.00 I & O 06/16/21 07:00 Intake Total 1350 ml Output Total 3375 ml Balance -5 ml Height & Weight Height: 5'9.00" Weight: 247lbs. 7.0oz. 112.507305ym; 36.92 BMI Method:Stated General Appearance: Other (Intubated and sedated) HEENT: Other (ET tube) Neck: Other (Right IJ central line) Respiratory: Other (Equal chest rise, mechanical ventilation) Cardiovascular: Regular Rate, Rhythm, No JVD, Other (Pedal edema) Capillary Refill: Less Than 3 Seconds Gastrointestinal: soft, no organomegaly; No mass Extremity: Normal Inspection, Pedal Edema Neurologic/Psychiatric: No Alert, No Oriented x3; Other (Patient intubated and sedated ) Skin: Normal Color, Warm/Dry Lymphatic: No Adenopathy (Head and neck) Results Lab Laboratory Tests 06/15/21 04:45 06/16/21 04:16 Assessment/Plan Assessment/Plan See free text. Critical Care: Ventilator Management ANABELA RANGEL MD Jun 16, 2021 08:41
--- NOTE | 2021-06-16 09:13 | Cardiology Progress Note ---
Subjective Date Seen by Provider: Jun 16, 2021 Time Seen by Provider: 09:09 Subjective/Events-last exam Patient is sedated and intubated still on PEEP of 8 Review of Systems General: Other (Unable to provide ROS) Objective-Cardiology Exam Last Set of Vital Signs Vital Signs 06/15/21 06/16/21 06/16/21 23:57 07:01 08:00 Temp 36.9 Pulse 107 Resp 15 B/P (MAP) 120/61 Pulse Ox 93 O2 Delivery Mechanical Ventilator O2 Flow Rate 60.00 FiO2 60 I&O Intake and Output 06/16/21 00:00 Intake Total 250 ml Output Total 3500 ml Balance -3250 ml Intake Oral 0 ml IV Total 100 ml Other 150 ml Output Urine Total 3500 ml General: Other (Intubated and sedated) HEENT: Mucous Memb Moist/[place] Neck: Supple Lungs: Other (diffuse crackles) Heart: Regular Rate Abdomen: Normal Bowel Sounds, Soft Extremities: Other (1+ pitting edema equal bilaterally) Skin: No Rashes, No Breakdown Neuro: Other (Sedated and intubated) Psych/Mental Status: Other (Sedated and intubated) Results Lab Laboratory Tests 06/16/21 04:16 A/P-Cardiology Admission Diagnosis Acute respiratory failure Congestive heart failure, acute on chronic left ventricular diastolic dysfunction, hypertensive heart disease Coronary artery disease Pneumonia Assessment/Plan Acute respiratory failure, ventilator dependent, probably secondary to pneumonia and acute pulmonary edema. Receiving antibiotic. Continue to monitor Receiving antibiotic, currently off pressors. Started on Lasix 40 mg IV twice daily, continue to monitor Frequent PVCs, ventricular bigeminy, I will start on IV beta-blockers and evaluate tolerance and response Pneumonia, sepsis, currently off pressors. Continue to monitor closely, receiving antibiotics. Congestive heart failure, acute on chronic left ventricular diastolic dysfunction, normal systolic function, last echo was done on May 31, 2021 with ejection fraction 50 to 55%. PA pressure 20 to 25 mmHg. Had mild elevation in BNP. Acute renal insufficiency, continue to monitor renal function Multifocal pneumonia, receiving antibiotics. CXR showing some improvement. Managed by primary care physician History of recurrent chest pain, musculoskeletal. Coronary artery disease, - cath 01/09/18: proximal circumflex artery stented with Rocío 3.012 mm; mid right coronary artery stented with 2.512 mm Rocío; mild to moderate disease in the proximal LAD, severe stenosis at the ostium of first diagonal artery that is very small artery. - cath 02/04/19: total occlusion of the left PDA off the circumflex artery, pat ent stent in the proximal circumflex. Patent stent in the midright coronary artery. Mild disease in the LAD. - cath 12/29/20: patent stent in the proximal circumflex and right coronary artery. Severe stenosis at the distal circumflex artery, primary stenting using 2.25 x 23 mm expanded to 2.35 mm with excellent results. Has severe stenosis/subtotal occlusion at the distal right posterior descending artery, very small artery not amenable to intervention. Mild to moderate disease in the LAD. Patient is maintained on Plavix and Xarelto, he is allergic to aspirin. Currently receiving Plavix and Lovenox Allergy to aspirin causing angioedema, Hypertension, monitor blood pressure Hyperlipidemia, planning to restart statin once extubated H/o frequent ventricular ectopy Mild bilateral carotid stenosis Carotid ultrasound was done in December 2018 Family history of heart disease History of psoriasis. Diabetes mellitus, h/o DKAs in the past Obesity CROW KNIGHT MD Jun 16, 2021 09:13
--- NOTE | 2021-06-16 09:26 | Progress Note ---
Subjective Subjective/Events-last exam Patient intubated and sedated. No acute ON events. Review of Systems Unable to access due to intubation and sedation Objective Exam Last Set of Vital Signs Vital Signs Date Time Temp Pulse Resp B/P (MAP) Pulse Ox O2 Delivery O2 Flow Rate FiO2 06/16/21 09:00 106 10 133/66 95 Mechanical Ventilator 60.00 06/16/21 07:01 60 06/15/21 23:57 36.9 Capillary Refill : Less Than 3 Seconds I&O Intake and Output 06/16/21 00:00 Intake Total 250 ml Output Total 3500 ml Balance -3250 ml Intake Oral 0 ml IV Total 100 ml Other 150 ml Output Urine Total 3500 ml General: Other Lungs: Other (diffuse crackles) Heart: Regular Rate, No Murmurs Abdomen: Soft Extremities: Other (2+ pitting edema) Results/Procedures Lab Laboratory Tests 06/15/21 11:54: Glucometer 132H 06/15/21 17:49: Glucometer 146H 06/15/21 23:56: Glucometer 154H 06/16/21 04:16: White Blood Count 8.8, Red Blood Count 2.67L, Hemoglobin 7.1L, Hematocrit 24L, Mean Corpuscular Volume 88, Mean Corpuscular Hemoglobin 27, Mean Corpuscular Hemoglobin Concent 30L, Red Cell Distribution Width 17.5H, Platelet Count 262, Mean Platelet Volume 9.6, Immature Granulocyte % (Auto) 1, Neutrophils (%) (Auto) 80H, Lymphocytes (%) (Auto) 8L, Monocytes (%) (Auto) 8, Eosinophils (%) (Auto) 3, Basophils (%) (Auto) 1, Neutrophils # (Auto) 7.1, Lymphocytes # (Auto) 0.7L, Monocytes # (Auto) 0.7, Eosinophils # (Auto) 0.3, Basophils # (Auto) 0.0, Immature Granulocyte # (Auto) 0.1, Sodium Level 148H, Potassium Level 3.6, [place] Level 113H, Carbon Dioxide Level 19L, Anion Gap 16H, Blood Urea Nitrogen 27H, Creatinine 1.20, Estimat Glomerular Filtration Rate 69, BUN/Creatinine Ratio 23, Glucose Level 159H, Calcium Level 8.8, Corrected Calcium 10.0, Phosphorus Level 3.0, Magnesium Level 1.9, Total Bilirubin 0.4, Aspartate Amino Transf (AST/SGOT) 10, Alanine Aminotransferase (ALT/SGPT) 8, Alkaline Phosphatase 94, Total Protein 5.6L, Albumin 2.5L 06/16/21 05:22: Blood Gas Puncture Site RIGHT RADIAL, Blood Gas Patient Temperature 38.4, Arterial Blood pH 7.31*L, Arterial Blood Partial Pressure CO2 48H, Arterial Blood Partial Pressure O2 75L, Arterial Blood HCO3 23, Arterial Blood Total CO2 24.2, Arterial Blood Oxygen Saturation 94, Arterial Blood Base Excess -2.2, Kush Test YES-POS, Blood Gas Ventilator Setting YES, Blood Gas Inspired Oxygen 60% Microbiology 06/11/21 Mycobacterial Culture - Preliminary, Resulted 06/11/21 Blood Culture - Preliminary, Resulted No growth 06/11/21 Urine Culture - Final, Complete NO GROWTH Assessment/Plan Assessment/Plan (1) Unresponsive episode Status: Acute Assessment & Plan: 06/12: Patient found down with poor oxygenation, following commands when sedation weaned 06/16: continues to follow commands when sedation is weaned (2) Acute and chronic respiratory failure with hypoxia Status: Acute Assessment & Plan: 06/12: Intubated, eICU managing, maxed out on FiO2, a ntibiotics and steroids, General surgery consulted for bronch 06/13: Peep was increased last night and able to wean FiO2 75%, patient is not candidate for SBT at this time 06/14: Currently on SBT, hopefully looking at extubation later today 06/15: Not candidate for SBT today, Continue to titrate peep as tolerated. 06/16: Minimal improvement in the last few days, spoke with [facility] as patient will likely be a long wean, poor prognosis (3) Acute on chronic heart failure with preserved ejection fraction (HFpEF) Status: Acute Assessment & Plan: - Dr Ortega Consulted, appreciate recommendations (4) Aspiration into airway Status: Acute Qualifiers: Qualified Codes: T17.908A - Unspecified foreign body in respiratory tract, part unspecified causing other injury, initial encounter (5) COPD (chronic obstructive pulmonary disease) Status: Chronic Qualifiers: (6) Coronary artery disease without angina pectoris Status: Chronic Qualifiers: Qualified Codes: I25.10 - Atherosclerotic heart disease of [place] coronary artery without angina pectoris (7) Insulin dependent diabetes mellitus with complications Status: Chronic Assessment & Plan: - SSI (8) Normocytic anemia Status: Acute Assessment & Plan: 06/16: Acute on Chronic anemia, likely partially from blood letting for blood draws, Iron panel pending, due to blood conservation would try and replace iron stores if low (9) Acute kidney injury Status: Acute Assessment & Plan: - IVFs, Will monitor closely 06/13: Improved mildly, will continue to monitor, strict I/Os 06/14: Cr continues to be stable (10) DVT prophylaxis Status: Acute Assessment & Plan: - JOCELYN Conley MD Jun 16, 2021 09:26
[2021-06-16 11:18] VITALS: BP 148/70
[2021-06-16] MEDS: meTOprolol 5 MG/5 ML (LOPRESSOR) VIAL IV SCH ×3 (11:35→17:13)
[2021-06-16 14:30] VITALS: BP 159/80
[2021-06-16 18:37] VITALS: BP 160/75
[2021-06-16] MEDS: polyethylene glycoL POWDER 17 GM (MIRALAX) PACK NG SCH (21:06)
[2021-06-16 21:30] VITALS: BP 148/71
[2021-06-16] MEDS: fentaNYL DRIP PRE-MIX 250 ML IV SCH (22:55)
[2021-06-17] MEDS: meTOprolol 5 MG/5 ML (LOPRESSOR) VIAL IV SCH ×4 (00:33→17:58)
[2021-06-17] MEDS: inSUlin ASPART (NovoLOG) 1 UNIT/0.01 ML (CHARGE PER UNIT) SC SCH ×4 (01:03→17:58)
[2021-06-17 02:51] VITALS: BP 139/68
[2021-06-17] MEDS: RT-ALBUTEROL/IPRATROPIUM 3 ML (DUONEB) VIAL INH SCH ×6 (02:51→21:41)
[2021-06-17] MEDS: NS IV 1000 ML 1,000 ML IV SCH ×2 (03:44→17:56)
[2021-06-17 04:39] LABS: BASOPHILS % (AUTO) 1 % (0-10); EOSINOPHILS # (AUTO) 0.4 10^3/uL (0.0-0.3); EOSINOPHILS % (AUTO) 5 % (0-10); HEMATOCRIT 25 % (40-54); HEMOGLOBIN 7.6 g/dL (13.3-17.7); LYMPHOCYTES # (AUTO) 0.7 10^3/uL (1.0-4.0); LYMPHOCYTES % (AUTO) 9 % (12-44); MEAN CORPUSCULAR HEMOGLOBIN 27 pg (25-34); MEAN CORPUSCULAR HGB CONC 30 g/dL (32-36); MEAN CORPUSCULAR VOLUME 88 fL (80-99); MEAN PLATELET VOLUME 9.7 fL (9.0-12.2); MONOCYTES # (AUTO) 0.8 10^3/uL (0.0-1.0); MONOCYTES % (AUTO) 11 % (0-12); NEUTROPHILS # (AUTO) 5.8 10^3/uL (1.8-7.8); NEUTROPHILS % (AUTO) 74 % (42-75); PLATELET COUNT 273 10^3/uL (130-400); WHITE BLOOD COUNT 7.8 10^3/uL (4.3-11.0)
[2021-06-17 04:49] LABS: ALBUMIN 2.6 GM/DL (3.2-4.5); POTASSIUM 3.4 MMOL/L (3.6-5.0)
[2021-06-17 04:54] LABS: BILIRUBIN,TOTAL 0.4 MG/DL (0.1-1.0)
[2021-06-17 04:55] LABS: PHOSPHORUS 3.3 MG/DL (2.3-4.7)
[2021-06-17 04:56] LABS: CREATININE SERUM 0.96 MG/DL (0.60-1.30)
[2021-06-17 04:58] LABS: MAGNESIUM 1.8 MG/DL (1.6-2.4)
[2021-06-17] MEDS: MAGNESIUM 1 GM/100 ML IVPB 100 ML IV SCH (05:23)
[2021-06-17] MEDS: KCL 20 MEQ TAB (K-DUR) PO SCH (05:23)
[2021-06-17] MEDS: POTASSIUM CL 10MEQ/50ML IVPB 50 ML IV SCH ×3 (06:05→08:00)
[2021-06-17 06:06] LABS: ABG BASE EXCESS -1.5 MMOL/L (-2.5-2.5); ABG OXYGEN SATURATION 95 % (94-100); ABG PCO2 44 MMHG (35-45); ABG PO2 64 MMHG (79-93); ABG TCO2 25.2 MMOL/L (21.0-31.0)
[2021-06-17 06:08] LABS: ABG PH 7.35 (7.37-7.43); ALLENS TEST YES-POS; INSPIRED O2 60%; PATIENT TEMP 35.7; VENTILATOR YES
[2021-06-17] MEDS: fentaNYL DRIP PRE-MIX 250 ML IV SCH ×3 (06:23→22:33)
[2021-06-17 06:35] VITALS: BP 135/67
--- NOTE | 2021-06-17 07:31 | Tele-ICU Progress Note ---
Progress Note 60 y/o male presented with resp arrest. Intubated in ED and aspirated Ventilated with 20/450/60%/8 RLL infiltrate, now off antibiotics Lovenox held due o concerns for GI bleeding, has received PRBCs PE: pulse 89 NSR O2 sat: 91% BP: 131/65 sedated with propofol and fentanyl PLAN: not ready for SBT, Continue vent. May need trach/PEG Focused Exam Height, Weight, BMI Height: 5'9.00" Weight: 247lbs. 7.0oz. 112.199466cu; 36.74 BMI Method:Stated Labs Laboratory Tests 06/17/21 04:18 Labs Labs Laboratory Tests 06/16/21 09:50: Iron Level 7L, Total Iron Binding Capacity 149L, Unsaturated Iron Binding Capacity 142, Transferrin % Saturation 5L, Ferritin 209.3 06/16/21 11:37: Glucometer 189H 06/16/21 17:20: Glucometer 154H 06/17/21 01:02: Glucometer 164H 06/17/21 04:18: White Blood Count 7.8, Red Blood Count 2.85L, Hemoglobin 7.6L, Hematocrit 25L, Mean Corpuscular Volume 88, Mean Corpuscular Hemoglobin 27, Mean Corpuscular Hemoglobin Concent 30L, Red Cell Distribution Width 17.4H, Platelet Count 273, Mean Platelet Volume 9.7, Immature Granulocyte % (Auto) 2, Neutrophils (%) (Auto) 74, Lymphocytes (%) (Auto) 9L, Monocytes (%) (Auto) 11, Eosinophils (%) (Auto) 5, Basophils (%) (Auto) 1, Neutrophils # (Auto) 5.8, Lymphocytes # (Auto) 0.7L, Monocytes # (Auto) 0.8, Eosinophils # (Auto) 0.4H, Basophils # (Auto) 0.0, Immature Granulocyte # (Auto) 0.2H, Sodium Level 148H, Potassium Level 3.4L, Chloride Level 113H, Carbon Dioxide Level 20L, Anion Gap 15H, Blood Urea Nitrogen 22H, Creatinine 0.96, Estimat Glomerular Filtration Rate 90, BUN/Creatinine Ratio 23, Glucose Level 171H, Calcium Level 9.0, Corrected Calcium 10.1, Phosphorus Level 3.3, Magnesium Level 1.8, Total Bilirubin 0.4, Aspartate Amino Transf (AST/SGOT) 11, Alanine Aminotransferase (ALT/SGPT) 8, A lkaline Phosphatase 89, Total Protein 6.0L, Albumin 2.6L 06/17/21 05:50: Blood Gas Puncture Site RIGHT RADIAL, Blood Gas Patient Temperature 35.7, Arterial Blood pH 7.35L, Arterial Blood Partial Pressure CO2 44, Arterial Blood Partial Pressure O2 64L, Arterial Blood HCO3 24, Arterial Blood Total CO2 25.2, Arterial Blood Oxygen Saturation 95, Arterial Blood Base Excess -1.5, Kush Test YES-POS, Blood Gas Ventilator Setting YES, Blood Gas Inspired Oxygen 60% Microbiology 06/11/21 Mycobacterial Culture - Preliminary, Resulted 06/11/21 Blood Culture - Final, Complete No growth 06/11/21 Urine Culture - Final, Complete NO GROWTH HAIM PAREKH MD Jun 17, 2021 07:31
[2021-06-17] MEDS: FUROSEMIDE 40 MG/4 ML INJ (LASIX) IVP SCH ×2 (08:59→17:57)
[2021-06-17] MEDS: NOREPINEPHRINE 8 MG/250 ML 250 ML IV SCH ×2 (09:19→21:05)
--- NOTE | 2021-06-17 09:20 | Progress Note - Hospitalist ---
Subjective HPI/CC On Admission Date Seen by Provider: Jun 17, 2021 Time Seen by Provider: 09:30 Subjective/Events-last exam Patient remains intubated Hemoglobin 7.6 up from 7.1 yesterday No major changes Requiring FiO2 of 60% with PEEP of 8 now Lovenox will be restarted per cardiology Checked meds and labs Objective Exam Vital Signs Vital Signs Date Time Temp Pulse Resp B/P (MAP) Pulse Ox O2 Delivery O2 Flow Rate FiO2 06/17/21 11:30 36.9 06/17/21 11:00 93 13 131/64 90 Mechanical Ventilator 60.00 06/17/21 10:16 60 Capillary Refill : Less Than 3 Seconds General Appearance: Chronically ill, Other (Sedated and intubated) Respiratory: No Accessory Muscle Use, No Respiratory Distress, Decreased Breath Sounds Cardiovascular: Regular Rate, Rhythm Results/Procedures Lab Laboratory Tests 06/17/21 04:18 Patient resulted labs reviewed. Assessment/Plan Assessment and Plan Assess & Plan/Chief Complaint Assessment: Acute on chronic respiratory failure Ventilator dependent Aspiration pneumonia? Acute on chronic diastolic congestive heart failure Acute kidney injury Hypertension Anemia Plan: Restart Lovenox Appreciate eICU Ventilator dependent Critical Care Ventilator Management DEIRDRE DIANA DO Jun 17, 2021 09:20
[2021-06-17] MEDS: ENOXAPARIN 100 MG/1 ML (LOVENOX) SYR SC SCH ×2 (10:10→21:05)
[2021-06-17] MEDS: CLOPIDOGREL 75 MG (PLAVIX) TABLET PO SCH (10:10)
[2021-06-17] MEDS: PANTOPRAZOLE 40 MG (PROTONIX) VIAL IV SCH (10:10)
[2021-06-17 10:16] VITALS: BP 142/70
--- NOTE | 2021-06-17 12:16 | Cardiology Progress Note ---
Subjective Date Seen by Provider: Jun 17, 2021 Time Seen by Provider: 12:16 Subjective/Events-last exam Patient was seen at bedside, ventilator dependent, sedated. Review of Systems General: Other (Unable to provide review of system) Objective-Cardiology Exam Last Set of Vital Signs Vital Signs 06/17/21 06/17/21 06/17/21 10:16 11:00 11:30 Temp 36.9 Pulse 93 Resp 13 B/P (MAP) 131/64 Pulse Ox 90 O2 Delivery Mechanical Ventilator O2 Flow Rate 60.00 FiO2 60 I&O Intake and Output 06/17/21 00:00 Intake Total 1965 ml Output Total 3825 ml Balance -1860 ml Intake Oral 0 ml IV Total 1400 ml Tube Feeding 70 ml Other 495 ml Output Urine Total 3825 ml General: Other HEENT: Mucous Memb Moist/[place] Neck: Supple Lungs: Other (diffuse crackles) Heart: Regular Rate, No Murmurs Abdomen: Soft Extremities: Other (2+ pitting edema) Skin: No Rashes, No Breakdown Neuro: Other (Sedated and intubated) Psych/Mental Status: Other (Sedated and intubated) Results Lab Laboratory Tests 06/17/21 04:18 A/P-Cardiology Admission Diagnosis Acute respiratory failure Congestive heart failure, acute on chronic left ventricular diastolic dysfunct ion, hypertensive heart disease Coronary artery disease Pneumonia Assessment/Plan Acute respiratory failure, ventilator dependent, probably secondary to pneumonia and acute pulmonary edema. Receiving antibiotic. Continue to monitor Receiving antibiotic, currently off pressors. Started on Lasix 40 mg IV twice daily, continue to monitor Frequent PVCs, ventricular bigeminy, I will start on IV beta-blockers and evaluate tolerance and response Pneumonia, sepsis, currently off pressors. Continue to monitor closely, receiving antibiotics. Congestive heart failure, acute on chronic left ventricular diastolic dysfunction, normal systolic function, last echo was done on May 31, 2021 with ejection fraction 50 to 55%. PA pressure 20 to 25 mmHg. Had mild elevation in BNP. Acute renal insufficiency, continue to monitor renal function Multifocal pneumonia, receiving antibiotics. CXR showing some improvement. Managed by primary care physician History of recurrent chest pain, musculoskeletal. Coronary artery disease, - cath 01/09/18: proximal circumflex artery stented with Rocío 3.012 mm; mid right coronary artery stented with 2.512 mm Rocío; mild to moderate disease in the proximal LAD, severe stenosis at the ostium of first diagonal artery that is very small artery. - cath 02/04/19: total occlusion of the left PDA off the circumflex artery, patent stent in the proximal circumflex. Patent stent in the midright coronary artery. Mild disease in the LAD. - cath 12/29/20: patent stent in the proximal circumflex and right coronary artery. Severe stenosis at the distal circumflex artery, primary stenting using 2.25 x 23 mm expanded to 2.35 mm with excellent results. Has severe stenosis/subtotal occlusion at the distal right posterior descending artery, very small artery not amenable to intervention. Mild to moderate disease in the LAD. Patient is maintained on Plavix and Xarelto, he is allergic to aspirin. Currently receiving Plavix and Lovenox Allergy to aspirin causing angioedema, Hypertension, monitor blood pressure Hyperlipidemia, planning to restart statin once extubated H/o frequent ventricular ectopy Mild bilateral carotid stenosis Carotid ultrasound was done in December 2018 Family history of heart disease History of psoriasis. Diabetes mellitus, h/o DKAs in the past Obesity CROW KNIGHT MD Jun 17, 2021 12:16
[2021-06-17 14:24] VITALS: BP 123/64
[2021-06-17 18:35] VITALS: BP 153/80
[2021-06-17] MEDS: polyethylene glycoL POWDER 17 GM (MIRALAX) PACK NG SCH (21:04)
[2021-06-17 21:41] VITALS: BP 111/60
[2021-06-18] MEDS: meTOprolol 5 MG/5 ML (LOPRESSOR) VIAL IV SCH ×4 (00:04→17:28)
[2021-06-18] MEDS: inSUlin ASPART (NovoLOG) 1 UNIT/0.01 ML (CHARGE PER UNIT) SC SCH ×4 (00:10→17:29)
[2021-06-18 03:09] VITALS: BP 122/64
[2021-06-18] MEDS: RT-ALBUTEROL/IPRATROPIUM 3 ML (DUONEB) VIAL INH SCH ×6 (03:09→22:19)
[2021-06-18 05:33] LABS: BASOPHILS % (AUTO) 1 % (0-10); EOSINOPHILS # (AUTO) 0.6 10^3/uL (0.0-0.3); EOSINOPHILS % (AUTO) 7 % (0-10); HEMATOCRIT 23 % (40-54); LYMPHOCYTES # (AUTO) 0.9 10^3/uL (1.0-4.0); LYMPHOCYTES % (AUTO) 11 % (12-44); MEAN CORPUSCULAR HEMOGLOBIN 26 pg (25-34); MEAN CORPUSCULAR HGB CONC 30 g/dL (32-36); MEAN CORPUSCULAR VOLUME 88 fL (80-99); MEAN PLATELET VOLUME 9.9 fL (9.0-12.2); MONOCYTES # (AUTO) 0.5 10^3/uL (0.0-1.0); MONOCYTES % (AUTO) 6 % (0-12); NEUTROPHILS # (AUTO) 5.9 10^3/uL (1.8-7.8); NEUTROPHILS % (AUTO) 74 % (42-75); PLATELET COUNT 259 10^3/uL (130-400)
[2021-06-18 05:42] LABS: ALBUMIN 2.3 GM/DL (3.2-4.5); POTASSIUM 3.3 MMOL/L (3.6-5.0)
[2021-06-18 05:43] LABS: CALCIUM 8.5 MG/DL (8.5-10.1)
[2021-06-18 05:43] LABS: ABG BASE EXCESS -2.5 MMOL/L (-2.5-2.5); ABG OXYGEN SATURATION 95 % (94-100); ABG PCO2 44 MMHG (35-45); ABG PO2 78 MMHG (79-93); ABG TCO2 23.8 MMOL/L (21.0-31.0)
[2021-06-18 05:44] LABS: TOTAL PROTEIN 5.6 GM/DL (6.4-8.2)
[2021-06-18 05:44] LABS: ABG PH 7.33 (7.37-7.43); ALLENS TEST YES-POS; PATIENT TEMP 37.2; VENTILATOR YES
[2021-06-18 05:46] LABS: BILIRUBIN,TOTAL 0.3 MG/DL (0.1-1.0)
[2021-06-18 05:47] LABS: PHOSPHORUS 3.5 MG/DL (2.3-4.7)
[2021-06-18 05:48] LABS: CREATININE SERUM 0.97 MG/DL (0.60-1.30)
[2021-06-18 05:51] LABS: MAGNESIUM 1.7 MG/DL (1.6-2.4)
[2021-06-18] MEDS: NS IV 1000 ML 1,000 ML IV SCH ×3 (05:53→20:57)
[2021-06-18] MEDS: KCL 20 MEQ TAB (K-DUR) PO SCH (05:59)
[2021-06-18] MEDS ORDERED: POTASSIUM CL 10MEQ/50ML IVPB 200 ML IV ONE (06:11)
[2021-06-18] MEDS ORDERED: MAGNESIUM 1 GM/100 ML IVPB 200 ML IV ONE (06:11)
[2021-06-18] MEDS: fentaNYL DRIP PRE-MIX 250 ML IV SCH ×4 (06:15→23:35)
--- NOTE | 2021-06-18 06:27 | Progress Note - Hospitalist ---
Subjective HPI/CC On Admission Date Seen by Provider: June 18, 2021 Time Seen by Provider: 11:30 Subjective/Events-last exam No major changes FiO2 65% now [place] would be a good disposition Patient has had very significant decline in complications last couple of years Very debilitated Objective Exam Vital Signs Vital Signs Date Time Temp Pulse Resp B/P (MAP) Pulse Ox O2 Delivery O2 Flow Rate FiO2 06/19/21 04:11 60 06/19/21 04:00 91 20 116/59 92 Mechanical Ventilator 60.00 06/18/21 19:15 36.9 Capillary Refill : Less Than 3 Seconds General Appearance: Chronically ill, Obese, Other (Sedated and intubated) Respiratory: Lungs Clear, Normal Breath Sounds Cardiovascular: Regular Rate, Rhythm Results/Procedures Lab Laboratory Tests 06/18/21 05:20 06/19/21 03:15 Patient resulted labs reviewed. Assessment/Plan Assessment and Plan Assess & Plan/Chief Complaint Assessment: Acute on chronic respiratory failure Ventilator dependent Aspiration pneumonia? Acute on chronic diastolic congestive heart failure Acute kidney injury Hypertension Anemia Plan: Restart Lovenox Appreciate eICU Ventilator dependent 06/18/2021: Appreciate ICU management Supportive care Critical Care Ventilator Management DEIRDRE DIANA DO June 18, 2021 06:27
[2021-06-18 06:34] VITALS: BP 112/58
[2021-06-18] MEDS: POTASSIUM CL 10MEQ/50ML IVPB 50 ML IV SCH ×4 (06:40→09:09)
[2021-06-18] MEDS: MAGNESIUM 1 GM/100 ML IVPB 100 ML IV SCH ×3 (06:41→08:03)
[2021-06-18] MEDS: NOREPINEPHRINE 8 MG/250 ML 250 ML IV SCH ×2 (07:47→23:33)
[2021-06-18] MEDS: FUROSEMIDE 40 MG/4 ML INJ (LASIX) IVP SCH ×2 (08:04→17:28)
[2021-06-18] MEDS: PANTOPRAZOLE 40 MG (PROTONIX) VIAL IV SCH (08:04)
--- NOTE | 2021-06-18 09:05 | Tele-ICU Progress Note ---
Subjective Date Seen by a Provider: June 18, 2021 Time Seen by a Provider: 07:00 Subjective/Events-last exam This virtual visit was conducted using real time audio/video. Thank you for asking us to see this patient for respiratory insufficiency due to B asp pna. Also resp arrest, shock. PE: VSS. O2 sat 92% on 50%/+8. HEENT: No obvious abnormalities. Chest: wheezes on auscultation. CV: RRR S1 S2 No murmur or added sounds. Abd: Non-tender. Bowel sounds Y. OGT to LIS. : Unremarkable. Thompson Y. 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 No obvious focal findings. Extremities: 1+ edema. Capillary refill < 3 seconds. Skin: unremarkable. Results: Elevated Na 147, BUN 20, , BG 145, D-dimer 4.6. Decreased Hb 7.1, Alb 2.5. B.33/44/78 on 60%/+5. CXR: Decreased infilts.. Available chart/ vitals / labs / images reviewed. Video assessment done using teleICU camera, rest of exam as per RN. A/P: Respiratory insufficiency: Continue present management with vent., duonebs, prop., fent. Wean as laureen. No SBT today. Monitor for increasing oxygenation needs. recheck PCXR. Critical Care: critically ill patient. Cont. PPI, abx, lasix, plavix, SSI. [place] resumed. Check FOB once pt has a stool. Discussed with XOCHITL Smith. Asked RN to reach out to eICU if any questions or concerns later. Time spent with patient/coordination of care with other health professionals (mins):20 Sepsis Event Evaluation Height, Weight, BMI Height: 5'9.00" Weight: 247lbs. 7.0oz. 112.415756rr; 38.18 BMI Method:Stated Exam Exam Patient acknowledged, consented, and participated in this virtual visit which was conducted using real time audio/video Vital Signs Date Time Temp Pulse Resp B/P (MAP) Pulse Ox O2 Delivery O2 Flow Rate FiO2 06/18/21 08:11 50 06/18/21 08:00 92 Mechanical Ventilator 50 06/18/21 08:00 92 19 121/60 93 Mechanical Ventilator 50.00 06/18/21 07:57 36.2 06/18/21 07:00 93 06/18/21 07:00 93 19 110/59 92 Mechanical Ventilator 50.00 06/18/21 06:44 Mechanical Ventilator 50.00 06/18/21 06:43 96 50 06/18/21 06:34 84 20 95 57 06/18/21 06:16 92 106/53 06/18/21 06:00 92 20 106/53 96 Mechanical Ventilator 57.00 06/18/21 05:00 96 16 107/56 96 Mechanical Ventilator 57.00 06/18/21 04:11 57 06/18/21 04:00 37.2 06/18/21 04:00 98 17 110/60 95 Mechanical Ventilator 57.00 06/18/21 04:00 92 Mechanical Ventilator 57 06/18/21 03:36 Mechanical Ventilator 57.00 06/18/21 03:27 Mechanical Ventilator 51.00 06/18/21 03:09 92 22 91 45 06/18/21 03:00 92 13 122/64 91 Mechanical Ventilator 40.00 06/18/21 02:33 89 123/63 06/18/21 02:00 89 12 117/60 91 Mechanical Ventilator 40.00 06/18/21 01:00 89 06/18/21 01:00 88 13 121/63 91 Mechanical Ventilator 40.00 06/18/21 00:11 40 06/18/21 00:00 99 12 123/63 90 Mechanical Ventilator 40.00 06/17/21 23:27 94 Mechanical Ventilator 40 06/17/21 23:00 98 13 123/62 94 Mechanical Ventilator 40.00 06/17/21 22:29 94 111/60 06/17/21 22:00 96 11 124/64 94 Mechanical Ventilator 40.00 06/17/21 21:41 94 24 94 40 06/17/21 21:00 93 14 111/60 93 Mechanical Ventilator 40.00 06/17/21 20:11 40 06/17/21 20:00 91 12 119/63 93 Mechanical Ventilator 40.00 06/17/21 20:00 95 Mechanical Ventilator 40 06/17/21 19:25 37.1 92 20 115/58 94 Mechanical Ventilator 40.00 06/17/21 19:00 91 06/17/21 18:35 87 20 90 40 06/17/21 18:00 88 10 110/57 91 Mechanical Ventilator 40.00 06/17/21 17:55 Mechanical Ventilator 06/17/21 17:29 92 137/69 06/17/21 17:15 36.7 Mechanical Ventilator 40.00 06/17/21 17:00 92 10 141/71 91 Mechanical Ventilator 50.00 06/17/21 16:11 50 06/17/21 16:00 93 Mechanical Ventilator 70 06/17/21 16:00 89 10 124/61 94 Mechanical Ventilator 50.00 06/17/21 15:00 89 11 117/57 94 Mechanical Ventilator 50.00 06/17/21 14:24 93 22 93 50 06/17/21 14:00 60 06/17/21 14:00 92 10 120/61 93 Mechanical Ventilator 50.00 06/17/21 13:42 93 Mechanical Ventilator 50.00 06/17/21 13:21 92 133/73 06/17/21 13:00 94 16 147/75 91 Mechanical Ventilator 60.00 06/17/21 12:40 91 06/17/21 12:11 70 06/17/21 12:00 89 10 134/71 93 Mechanical Ventilator 60.00 06/17/21 12:00 93 Mechanical Ventilator 70 06/17/21 11:30 36.9 06/17/21 11:00 93 13 131/64 90 Mechanical Ventilator 60.00 06/17/21 10:16 93 23 93 60 06/17/21 10:00 90 12 134/69 91 Mechanical Ventilator 60.00 06/17/21 09:19 138/70 I & O 06/18/21 07:00 Intake Total 1525 ml Output Total 2450 ml Balance -925 ml Height & Weight Height: 5'9.00" Weight: 247lbs. 7.0oz. 112.466500fo; 38.18 BMI Method:Stated General Appearance: Chronically ill, Other (Sedated and intubated) HEENT: Other (ET tube) Neck: Other (Right IJ central line) Respiratory: No Accessory Muscle Use, No Respiratory Distress, Decreased Breath Sounds Cardiovascular: Regular Rate, Rhythm Capillary Refill: Less Than 3 Seconds Gastrointestinal: soft, no organomegaly; No mass Extremity: Normal Inspection, Pedal Edema Neurologic/Psychiatric: No Alert, No Oriented x3; Other (Patient intubated and sedated ) Skin: Normal Color, Warm/Dry Lymphatic: No Adenopathy (Head and neck) Results Lab Laboratory Tests 06/17/21 04:18 06/18/21 05:20 Assessment/Plan Assessment/Plan See free text. Critical Care: Ventilator Management ANABELA RANGEL MD June 18, 2021 09:05
--- NOTE | 2021-06-18 09:19 | Cardiology Progress Note ---
Subjective Date Seen by Provider: June 18, 2021 Time Seen by Provider: 09:18 Subjective/Events-last exam Patient is sedated and intubated. Unable to provide any history. Review of Systems General: Other (Unable to provide review of system) Objective-Cardiology Exam Last Set of Vital Signs Vital Signs 06/18/21 06/18/21 06/18/21 07:57 08:11 09:00 Temp 36.2 Pulse 90 Resp 14 B/P (MAP) 110/59 Pulse Ox 92 O2 Delivery Mechanical Ventilator O2 Flow Rate 50.00 FiO2 50 I&O Intake and Output 06/18/21 00:00 Intake Total 1595 ml Output Total 2575 ml Balance -980 ml Intake Oral 0 ml IV Total 350 ml Tube Feeding 360 ml Other 885 ml Output Urine Total 2575 ml General: Other HEENT: Mucous Memb Moist/[place] Neck: Supple Lungs: Other (diffuse crackles) Heart: Regular Rate, No Murmurs Abdomen: Soft Extremities: Other (2+ pitting edema) Skin: No Rashes, No Breakdown Neuro: Other (Sedated and intubated) Psych/Mental Status: Other (Sedated and intubated) Results Lab Laboratory Tests 06/18/21 05:20 A/P-Cardiology Admission Diagnosis Acute respiratory failure Congestive heart failure, acute on chronic left ventricular diastolic dysfuncti on, hypertensive heart disease Coronary artery disease Pneumonia Assessment/Plan Acute respiratory failure, ventilator dependent, probably secondary to pneumonia and acute pulmonary edema. Receiving antibiotic. Continue to monitor Receiving antibiotic, currently off pressors. Started on Lasix 40 mg IV twice daily, continue to monitor Anemia, drop in H&H, I will discontinue Xarelto and Plavix. Monitor H&H and transfuse as needed Frequent PVCs, ventricular bigeminy, improved after starting IV beta-blockers. Tolerating it well. Continue to monitor Pneumonia, sepsis, currently off pressors. Continue to monitor closely, receiving antibiotics. Congestive heart failure, acute on chronic left ventricular diastolic dysfunction, normal systolic function, last echo was done on May 31, 2021 with ejection fraction 50 to 55%. PA pressure 20 to 25 mmHg. Had mild elevation in BNP. Acute renal insufficiency, continue to monitor renal function Multifocal pneumonia, receiving antibiotics. CXR showing some improvement. Managed by primary care physician History of recurrent chest pain, musculoskeletal. Coronary artery disease, - cath 01/09/18: proximal circumflex artery stented with Rocío 3.012 mm; mid right coronary artery stented with 2.512 mm Rocío; mild to moderate disease in the proximal LAD, severe stenosis at the ostium of first diagonal artery that is very small artery. - cath 02/04/19: total occlusion of the left PDA off the circumflex artery, p atent stent in the proximal circumflex. Patent stent in the midright coronary artery. Mild disease in the LAD. - cath 12/29/20: patent stent in the proximal circumflex and right coronary artery. Severe stenosis at the distal circumflex artery, primary stenting using 2.25 x 23 mm expanded to 2.35 mm with excellent results. Has severe stenosis/subtotal occlusion at the distal right posterior descending artery, very small artery not amenable to intervention. Mild to moderate disease in the LAD. Patient was maintained on Plavix and Xarelto, he is allergic to aspirin. 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 Diabetes mellitus, h/o DKAs in the past Obesity CROW KNIGHT MD June 18, 2021 09:19
[2021-06-18] MEDS ORDERED: ROCURONIUM 10 MG/ML 5 ML SYRINGE IV ONE (09:40)
[2021-06-18 09:54] VITALS: BP 163/80
--- NOTE | 2021-06-18 10:04 | Anesthesia-Procedure Note ---
Procedures/Interventions Procedure Start/Stop/Diagnosis Date of Procedure: June 18, 2021 Start Time: 09:40 Stop Time: 09:52 Additional Procedures Procedures Endo Tracheal Tube exchange. Patient on sedation medications. Rocuronium 50mg given for paralytic. Patients ETT removed and replace without difficulty. Glidescope used for re-intubation. 8.0 to 24cm at the lip. Secured. Care to RT and BURR PICKER. MIRACLE GUO CRNA June 18, 2021 10:04
--- NOTE | 2021-06-18 10:29 | Diagnostic Imaging Report ---
HISTORY: Hypoxia COMPARISON: 06/14/2021 TECHNIQUE: Frontal view of the chest FINDINGS: There are diffuse airspace opacities throughout the lungs bilaterally, which appear increased since the prior study. There is no pleural effusion or pneumothorax. The cardiac silhouette is mildly large but stable since the prior exam. The endotracheal tube is partially obscured but appears to be about 5 cm above the anthony. An enteric tube passes [id number]. A right central line tip projects over the low SVC. IMPRESSION: 1. Airspace opacities throughout the lungs bilaterally, increased since the prior exam, most likely edema. 2. Tubes and lines as described above. Dictated by: Dictated on workstation # [id number]
[2021-06-18 14:36] VITALS: BP 96/50
[2021-06-18 18:25] VITALS: BP 104/53
[2021-06-18] MEDS: polyethylene glycoL POWDER 17 GM (MIRALAX) PACK NG SCH (21:16)
[2021-06-18 22:19] VITALS: BP 109/56
[2021-06-19] MEDS: inSUlin ASPART (NovoLOG) 1 UNIT/0.01 ML (CHARGE PER UNIT) SC SCH ×5 (00:42→23:32)
[2021-06-19] MEDS: meTOprolol 5 MG/5 ML (LOPRESSOR) VIAL IV SCH ×5 (00:43→23:32)
[2021-06-19 02:31] VITALS: BP 130/63
[2021-06-19] MEDS: RT-ALBUTEROL/IPRATROPIUM 3 ML (DUONEB) VIAL INH SCH ×6 (02:31→21:59)
[2021-06-19 03:01] LABS: ABG BASE EXCESS -2.8 MMOL/L (-2.5-2.5); ABG OXYGEN SATURATION 93 % (94-100); ABG PCO2 42 MMHG (35-45); ABG PO2 70 MMHG (79-93); ABG TCO2 23.3 MMOL/L (21.0-31.0)
[2021-06-19 03:03] LABS: ABG PH 7.35 (7.37-7.43); ALLENS TEST YES-POS; INSPIRED O2 60%; PATIENT TEMP 37.2; VENTILATOR YES
[2021-06-19] MEDS: MAGNESIUM 1 GM/100 ML IVPB 100 ML IV SCH (03:22)
[2021-06-19] MEDS: KCL 20 MEQ TAB (K-DUR) PO SCH (03:22)
[2021-06-19] MEDS: POTASSIUM CL 10MEQ/50ML IVPB 50 ML IV SCH (03:22)
[2021-06-19 03:28] LABS: BASOPHILS % (AUTO) 0 % (0-10); EOSINOPHILS # (AUTO) 0.7 10^3/uL (0.0-0.3); EOSINOPHILS % (AUTO) 6 % (0-10); HEMATOCRIT 25 % (40-54); HEMOGLOBIN 7.3 g/dL (13.3-17.7); LYMPHOCYTES # (AUTO) 0.7 10^3/uL (1.0-4.0); LYMPHOCYTES % (AUTO) 6 % (12-44); MEAN CORPUSCULAR HEMOGLOBIN 26 pg (25-34); MEAN CORPUSCULAR HGB CONC 30 g/dL (32-36); MEAN CORPUSCULAR VOLUME 88 fL (80-99); MEAN PLATELET VOLUME 9.9 fL (9.0-12.2); MONOCYTES # (AUTO) 0.5 10^3/uL (0.0-1.0); MONOCYTES % (AUTO) 4 % (0-12); NEUTROPHILS # (AUTO) 8.9 10^3/uL (1.8-7.8); NEUTROPHILS % (AUTO) 82 % (42-75); PLATELET COUNT 301 10^3/uL (130-400); WHITE BLOOD COUNT 10.9 10^3/uL (4.3-11.0)
[2021-06-19 03:31] LABS: ALBUMIN 2.4 GM/DL (3.2-4.5); POTASSIUM 3.8 MMOL/L (3.6-5.0)
[2021-06-19 03:33] LABS: CALCIUM 8.6 MG/DL (8.5-10.1)
[2021-06-19 03:34] LABS: TOTAL PROTEIN 5.7 GM/DL (6.4-8.2)
[2021-06-19 03:36] LABS: BILIRUBIN,TOTAL 0.4 MG/DL (0.1-1.0)
[2021-06-19 03:37] LABS: PHOSPHORUS 3.8 MG/DL (2.3-4.7)
[2021-06-19 03:38] LABS: CREATININE SERUM 1.03 MG/DL (0.60-1.30)
[2021-06-19 03:40] LABS: MAGNESIUM 1.9 MG/DL (1.6-2.4)
[2021-06-19] MEDS: FUROSEMIDE 40 MG/4 ML INJ (LASIX) IVP SCH ×2 (06:16→18:05)
--- NOTE | 2021-06-19 06:18 | Progress Note - Hospitalist ---
Subjective HPI/CC On Admission Date Seen by Provider: June 19, 2021 Time Seen by Provider: 09:00 Subjective/Events-last exam Patient still intubated Reviewed meds and labs Hemoglobin stable Objective Exam Vital Signs Vital Signs Date Time Temp Pulse Resp B/P (MAP) Pulse Ox O2 Delivery O2 Flow Rate FiO2 06/19/21 11:00 89 13 110/55 92 Mechanical Ventilator 60.00 06/19/21 10:02 60 06/19/21 08:00 36.7 Capillary Refill : Less Than 3 Seconds General Appearance: No Apparent Distress, WD/WN, Chronically ill, Obese, Other (Sedated and intubated) Respiratory: Lungs Clear, Normal Breath Sounds Cardiovascular: Regular Rate, Rhythm Results/Procedures Lab Laboratory Tests 06/19/21 03:15 Patient resulted labs reviewed. Assessment/Plan Assessment and Plan Assess & Plan/Chief Complaint Assessment: Acute on chronic respiratory failure Ventilator dependent Aspiration pneumonia? Acute on chronic diastolic congestive heart failure Acute kidney injury Hypertension Anemia Plan: Restart Lovenox Appreciate eICU Ventilator dependent 06/18/2021: Appreciate ICU management Supportive care 06/19/2021: Supportive care Monitor closely Critical Care Ventilator Management DEIRDRE DIANA DO June 19, 2021 06:18
[2021-06-19] MEDS: fentaNYL DRIP PRE-MIX 250 ML IV SCH ×3 (06:20→20:08)
[2021-06-19 06:37] VITALS: BP 112/60
--- NOTE | 2021-06-19 08:35 | Tele-ICU Progress Note ---
Subjective Date Seen by a Provider: June 19, 2021 Time Seen by a Provider: 06:50 Subjective/Events-last exam This virtual visit was conducted using real time audio/video. Thank you for asking us to see this patient for respiratory insufficiency due to B asp pna. Also resp arrest, shock, diast HF. PE: Sedated on vent. VSS. O2 sat 92% on 60%/+8. HEENT: No obvious abnormalities. Chest: wheezes on auscultation. CV: RRR S1 S2 No murmur or added sounds. Abd: Non-tender. Bowel sounds Y. OGT to LIS. : Unremarkable. Thompson Y. 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 No obvious focal findings. Extremities: 1+ edema. Capillary refill < 3 seconds. Skin: unremarkable. Results: Elevated Na 147, BUN 22, , BG 184, D-dimer 4.6. Decreased Hb 7.1, Alb 2.5. B.35/42/70 on 60%/+5. CXR: Increased congestion. Available chart/ vitals / labs / images reviewed. Video assessment done using teleICU camera, rest of exam as per RN. A/P: Respiratory insufficiency: Continue present management with vent., duonebs, prop., fent. Wean DFiO2 as laureen. No SBT today. Monitor for increasing oxygenation needs. Critical Care: critically ill patient. Cont. PPI, abx, lasix, plavix, SSI. [place] on hold. Check FOB once pt produces a stool. Discussed with RN Nora. Asked RN to reach out to eICU if any questions or concerns later. Time spent with patient/coordination of care with other health professionals (mins):20 Sepsis Event Evaluation Height, Weight, BMI Height: 5'9.00" Weight: 247lbs. 7.0oz. 112.356391sp; 38.18 BMI Method:Stated Exam Exam Patient acknowledged, consented, and participated in this virtual visit which was conducted using real time audio/video Vital Signs Date Time Temp Pulse Resp B/P (MAP) Pulse Ox O2 Delivery O2 Flow Rate FiO2 06/19/21 08:00 90 14 110/57 93 Mechanical Ventilator 60.00 06/19/21 08:00 36.7 06/19/21 07:00 91 06/19/21 07:00 91 16 113/59 92 Mechanical Ventilator 60.00 06/19/21 06:37 88 24 92 60 06/19/21 06:00 89 15 118/58 93 Mechanical Ventilator 60.00 06/19/21 05:15 104 116/59 06/19/21 05:00 104 24 88 06/19/21 05:00 89 16 115/58 93 Mechanical Ventilator 60.00 06/19/21 04:11 60 06/19/21 04:00 91 20 116/59 92 Mechanical Ventilator 60.00 06/19/21 04:00 91 Mechanical Ventilator 60 06/19/21 03:00 92 17 121/57 93 Mechanical Ventilator 60.00 06/19/21 02:31 92 24 92 60 06/19/21 02:00 90 15 119/57 92 Mechanical Ventilator 60.00 06/19/21 01:39 90 109/56 06/19/21 01:00 91 06/19/21 01:00 92 20 112/55 90 Mechanical Ventilator 60.00 06/19/21 00:11 60 06/19/21 00:00 89 18 111/54 91 Mechanical Ventilator 60.00 06/18/21 23:59 91 Mechanical Ventilator 60 06/18/21 23:00 91 18 108/51 91 Mechanical Ventilator 60.00 06/18/21 22:24 Mechanical Ventilator 60.00 06/18/21 22:19 90 21 91 60 06/18/21 22:00 88 20 107/52 92 Mechanical Ventilator 65.00 06/18/21 21:16 91 107/56 06/18/21 21:00 90 21 110/53 92 Mechanical Ventilator 65.00 06/18/21 20:11 65 06/18/21 20:00 93 22 107/55 92 Mechanical Ventilator 65.00 06/18/21 20:00 93 Mechanical Ventilator 65 06/18/21 19:15 36.9 91 20 107/56 93 Mechanical Ventilator 65.00 06/18/21 19:00 90 06/18/21 18:25 84 24 92 65 06/18/21 18:00 80 20 99/52 93 Mechanical Ventilator 50.00 06/18/21 17:29 106/51 06/18/21 17:00 89 19 107/54 94 Mechanical Ventilator 50.00 06/18/21 16:00 91 20 101/51 93 Mechanical Ventilator 50.00 06/18/21 15:58 55 06/18/21 15:58 92 Mechanical Ventilator 65 06/18/21 15:00 92 10 98/48 90 Mechanical Ventilator 50.00 06/18/21 14:36 87 23 94 65 06/18/21 14:06 101/53 06/18/21 14:00 86 19 100/52 94 Mechanical Ventilator 50.00 06/18/21 13:00 87 10 114/56 92 Mechanical Ventilator 50.00 06/18/21 12:56 86 06/18/21 12:00 94 9 111/56 92 Mechanical Ventilator 50.00 06/18/21 11:55 36.5 06/18/21 11:27 55 06/18/21 11:26 92 Mechanical Ventilator 55 06/18/21 11:00 99 17 118/58 92 Mechanical Ventilator 50.00 06/18/21 10:00 105 19 159/80 95 Mechanical Ventilator 50.00 06/18/21 09:59 163/80 06/18/21 09:54 104 20 95 50 06/18/21 09:00 90 14 110/59 92 Mechanical Ventilator 50.00 I & O 06/19/21 07:00 Intake Total 975 ml Output Total 2450 ml Balance -1475 ml Height & Weight Height: 5'9.00" Weight: 247lbs. 7.0oz. 112.214445hh; 38.18 BMI Method:Stated General Appearance: Chronically ill, Obese, Other (Sedated and intubated) HEENT: Other (ET tube) Neck: Other (Right IJ central line) Respiratory: Lungs Clear, Normal Breath Sounds Cardiovascular: Regular Rate, Rhythm Capillary Refill: Less Than 3 Seconds Gastrointestinal: soft, no organomegaly; No mass Extremity: Normal Inspection, Pedal Edema Neurologic/Psychiatric: No Alert, No Oriented x3; Other (Patient intubated and sedated ) Skin: Normal Color, Warm/Dry Lymphatic: No Adenopathy (Head and neck) Results Lab Laboratory Tests 06/18/21 05:20 06/19/21 03:15 Assessment/Plan Assessment/Plan See free text. Critical Care: Ventilator Management ANABELA RANGEL MD June 19, 2021 08:35
[2021-06-19] MEDS: PANTOPRAZOLE 40 MG (PROTONIX) VIAL IV SCH (09:09)
[2021-06-19 10:02] VITALS: BP 134/64
--- NOTE | 2021-06-19 10:16 | Cardiology Progress Note ---
Subjective Date Seen by Provider: June 19, 2021 Time Seen by Provider: 10:11 Subjective/Events-last exam Patient is sedated and intubated Unresponsive. Review of Systems General: Other (Unable to provide review of system) Objective-Cardiology Exam Last Set of Vital Signs Vital Signs 06/19/21 06/19/21 06/19/21 08:00 10:00 10:02 Temp 36.7 Pulse 93 Resp 24 B/P (MAP) 134/64 Pulse Ox 92 O2 Delivery Mechanical Ventilator O2 Flow Rate 60.00 FiO2 60 I&O Intake and Output 06/18/21 23:59 Intake Total 745 ml Output Total 5 ml Balance -1280 ml Intake Oral 0 ml IV Total 100 ml Tube Feeding 420 ml Other 225 ml Output Urine Total 5 ml General: Other HEENT: Mucous Memb Moist/[place] Neck: Supple Lungs: Other (diffuse crackles) Heart: Regular Rate, Normal S1, Normal S2, No Murmurs Abdomen: Soft Extremities: Other (2+ pitting edema) Skin: No Rashes, No Breakdown Neuro: Other (Sedated and intubated) Psych/Mental Status: Other (Sedated and intubated) Results Lab Laboratory Tests 06/19/21 03:15 A/P-Cardiology Admission Diagnosis Acute respiratory failure Congestive heart failure, acute on chronic left ventricular diastolic dysfun ction, hypertensive heart disease Coronary artery disease Pneumonia Assessment/Plan Acute respiratory failure, ventilator dependent, probably secondary to pneumonia and acute pulmonary edema. Receiving antibiotic. Continue to monitor Receiving antibiotic, currently off pressors. Responded well to diuretics. Anemia, drop in H&H, I will discontinue Xarelto and Plavix. Monitor H&H and transfuse as needed Frequent PVCs, ventricular bigeminy, improved after starting IV beta-blockers. Tolerating it well. Continue to monitor Pneumonia, sepsis, currently off pressors. Continue to monitor closely, receiving antibiotics. Congestive heart failure, acute on chronic left ventricular diastolic dysfunction, normal systolic function, last echo was done on May 31, 2021 with ejection fraction 50 to 55%. PA pressure 20 to 25 mmHg. Had mild elevation in BNP. Acute renal insufficiency, continue to monitor renal function Multifocal pneumonia, receiving antibiotics. CXR showing some improvement. Managed by primary care physician History of recurrent chest pain, musculoskeletal. Coronary artery disease, - cath 01/09/18: proximal circumflex artery stented with Rocío 3.012 mm; mid right coronary artery stented with 2.512 mm Rocío; mild to moderate disease in the proximal LAD, severe stenosis at the ostium of first diagonal artery that is very small artery. - cath 02/04/19: total occlusion of the left PDA off the circumflex artery, patent stent in the proximal circumflex. Patent stent in the midright coronary artery. Mild disease in the LAD. - cath 12/29/20: patent stent in the proximal circumflex and right coronary artery. Severe stenosis at the distal circumflex artery, primary stenting using 2.25 x 23 mm expanded to 2.35 mm with excellent results. Has severe stenosis/subtotal occlusion at the distal right posterior descending artery, very small artery not amenable to intervention. Mild to moderate disease in the LAD. Patient was maintained on Plavix and Xarelto, he is allergic to aspirin. 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 Diabetes mellitus, h/o DKAs in the past Obesity CROW KNIGHT MD June 19, 2021 10:16
[2021-06-19] MEDS: NOREPINEPHRINE 8 MG/250 ML 250 ML IV SCH ×2 (10:30→22:45)
[2021-06-19] MEDS: NS IV 1000 ML 1,000 ML IV SCH ×2 (10:48→23:31)
[2021-06-19 14:40] VITALS: BP 157/84
[2021-06-19 18:23] VITALS: BP 107/56
[2021-06-19] MEDS: polyethylene glycoL POWDER 17 GM (MIRALAX) PACK NG SCH (20:08)
[2021-06-19 21:59] VITALS: BP 124/64
[2021-06-20] MEDS: RT-ALBUTEROL/IPRATROPIUM 3 ML (DUONEB) VIAL INH SCH ×6 (02:26→22:27)
[2021-06-20 02:27] VITALS: BP 132/64
[2021-06-20 02:58] LABS: BASOPHILS % (AUTO) 0 % (0-10); EOSINOPHILS # (AUTO) 0.6 10^3/uL (0.0-0.3); EOSINOPHILS % (AUTO) 6 % (0-10); HEMATOCRIT 25 % (40-54); HEMOGLOBIN 7.3 g/dL (13.3-17.7); LYMPHOCYTES # (AUTO) 0.9 10^3/uL (1.0-4.0); LYMPHOCYTES % (AUTO) 9 % (12-44); MEAN CORPUSCULAR HEMOGLOBIN 26 pg (25-34); MEAN CORPUSCULAR HGB CONC 30 g/dL (32-36); MEAN CORPUSCULAR VOLUME 89 fL (80-99); MEAN PLATELET VOLUME 9.9 fL (9.0-12.2); MONOCYTES # (AUTO) 0.5 10^3/uL (0.0-1.0); MONOCYTES % (AUTO) 6 % (0-12); NEUTROPHILS # (AUTO) 7.6 10^3/uL (1.8-7.8); NEUTROPHILS % (AUTO) 78 % (42-75); PLATELET COUNT 299 10^3/uL (130-400); WHITE BLOOD COUNT 9.7 10^3/uL (4.3-11.0)
[2021-06-20 03:09] LABS: ALBUMIN 2.2 GM/DL (3.2-4.5); POTASSIUM 3.5 MMOL/L (3.6-5.0)
[2021-06-20 03:10] LABS: CALCIUM 8.4 MG/DL (8.5-10.1)
[2021-06-20 03:11] LABS: TOTAL PROTEIN 5.5 GM/DL (6.4-8.2)
[2021-06-20 03:13] LABS: BILIRUBIN,TOTAL 0.3 MG/DL (0.1-1.0)
[2021-06-20 03:15] LABS: CREATININE SERUM 1.11 MG/DL (0.60-1.30); PHOSPHORUS 3.9 MG/DL (2.3-4.7)
[2021-06-20 03:18] LABS: MAGNESIUM 1.9 MG/DL (1.6-2.4)
[2021-06-20] MEDS: MAGNESIUM 1 GM/100 ML IVPB 100 ML IV SCH (03:21)
[2021-06-20] MEDS: POTASSIUM CL 10MEQ/50ML IVPB 50 ML IV SCH ×2 (03:21→05:58)
[2021-06-20] MEDS: KCL 20 MEQ TAB (K-DUR) PO SCH (03:22)
[2021-06-20] MEDS: fentaNYL DRIP PRE-MIX 250 ML IV SCH ×4 (03:38→22:06)
--- NOTE | 2021-06-20 05:23 | Progress Note - Hospitalist ---
Subjective HPI/CC On Admission Date Seen by Provider: June 20, 2021 Time Seen by Provider: 09:00 Subjective/Events-last exam Pt is still intubated FiO2 of 65% Didn't tolerate moving aroud at all when they repositioned him Review of Systems General: Fatigue, Malaise Objective Exam Vital Signs Vital Signs Date Time Temp Pulse Resp B/P (MAP) Pulse Ox O2 Delivery O2 Flow Rate FiO2 06/21/21 04:00 75 06/21/21 04:00 94 Mechanical Ventilator 06/21/21 02:25 100 25 06/21/21 00:16 143/70 06/21/21 00:00 75.00 06/20/21 23:08 37.8 Capillary Refill : Less Than 3 Seconds General Appearance: No Apparent Distress, WD/WN, Chronically ill, Obese, Other (Sedated and intubated) Respiratory: Decreased Breath Sounds Cardiovascular: Regular Rate, Rhythm Results/Procedures Lab Laboratory Tests 06/21/21 04:30 Patient resulted labs reviewed. Assessment/Plan Assessment and Plan Assess & Plan/Chief Complaint Assessment: Acute on chronic respiratory failure Ventilator dependent Aspiration pneumonia status post antibiotics Acute on chronic diastolic congestive heart failure Acute kidney injury Hypertension Anemia Low-grade fever 06/20/2021 Plan: Restart Lovenox Appreciate eICU Ventilator dependent 06/18/2021: Appreciate ICU management Supportive care 06/19/2021: Supportive care Monitor closely 06/20/2021: Ventilator management appreciated Critical Care Ventilator Management DEIRDRE DIANA DO June 20, 2021 05:23
[2021-06-20] MEDS: FUROSEMIDE 40 MG/4 ML INJ (LASIX) IVP SCH ×2 (05:58→17:58)
[2021-06-20] MEDS: inSUlin ASPART (NovoLOG) 1 UNIT/0.01 ML (CHARGE PER UNIT) SC SCH ×4 (05:58→23:56)
[2021-06-20] MEDS: meTOprolol 5 MG/5 ML (LOPRESSOR) VIAL IV SCH ×4 (05:58→23:56)
[2021-06-20 06:47] VITALS: BP 114/67
--- NOTE | 2021-06-20 07:26 | Cardiology Progress Note ---
Subjective Date Seen by Provider: June 20, 2021 Time Seen by Provider: 07:25 Subjective/Events-last exam Patient was seen at bedside, sedated and intubated Review of Systems General: Other (Unable to provide review of system) Objective-Cardiology Exam Last Set of Vital Signs Vital Signs 06/19/21 06/20/21 06/20/21 06/20/21 22:40 06:00 06:47 07:00 Temp 37.1 Pulse 86 Resp 25 B/P (MAP) 131/63 Pulse Ox 92 O2 Delivery Mechanical Ventilator O2 Flow Rate 55.00 FiO2 55 I&O Intake and Output 06/20/21 00:00 Intake Total 2420 ml Output Total 2375 ml Balance 45 ml Intake Oral 0 ml IV Total 1250 ml Tube Feeding 720 ml Other 450 ml Output Urine Total 2375 ml General: Other HEENT: Mucous Memb Moist/[place] Neck: Supple Lungs: Other (diffuse crackles) Heart: Regular Rate, Normal S1, Normal S2, No Murmurs Abdomen: Soft Extremities: Other (2+ pitting edema) Skin: No Rashes, No Breakdown Neuro: Other (Sedated and intubated) Psych/Mental Status: Other (Sedated and intubated) Results Lab Laboratory Tests 06/20/21 02:45 A/P-Cardiology Admission Diagnosis Acute respiratory failure Congestive heart failure, acute on chronic left ventricular diastolic dysfunction, hypertensive heart disease Coronary artery disease Pneumonia Assessment/Plan Acute respiratory failure, ventilator dependent, probably secondary to pneumonia and acute pulmonary edema. Receiving antibiotic. Continue to monitor Receiving antibiotic, currently off pressors. Patient has failed multiple weaning attempts, I recommend transfer to [place] and /or tracheostomy Anemia, drop in H&H, I will discontinue Xarelto and Plavix. Monitor H&H and transfuse as needed Frequent PVCs, ventricular bigeminy, improved after starting IV beta-blockers. Tolerating it well. Continue to monitor Pneumonia, sepsis, currently off pressors. Continue to monitor closely, receiving antibiotics. Congestive heart failure, acute on chronic left ventricular diastolic dysfunction, normal systolic function, last echo was done on May 31, 2021 with ejection fraction 50 to 55%. PA pressure 20 to 25 mmHg. Had mild elevation in BNP. Acute renal insufficiency, continue to monitor renal function Multifocal pneumonia, receiving antibiotics. CXR showing some improvement. Managed by primary care physician History of recurrent chest pain, musculoskeletal. Coronary artery disease, - cath 01/09/18: proximal circumflex artery stented with Rocío 3.012 mm; mid right coronary artery stented with 2.512 mm Rocío; mild to moderate disease in the proximal LAD, severe stenosis at the ostium of first diagonal artery that is very small artery. - cath 02/04/19: total occlusion of the left PDA off the circumflex artery, patent stent in the proximal circumflex. Patent stent in the midright coronary artery. Mild disease in the LAD. - cath 12/29/20: patent stent in the proximal circumflex and right coronary artery. Severe stenosis at the distal circumflex artery, primary stenting using 2.25 x 23 mm expanded to 2.35 mm with excellent results. Has severe stenosis/subtotal occlusion at the distal right posterior descending artery, very small artery not amenable to intervention. Mild to moderate disease in the LAD. Patient was maintained on Plavix and Xarelto, he is allergic to aspirin. 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 Diabetes mellitus, h/o DKAs in the past Obesity CROW KNIGHT MD June 20, 2021 07:26
[2021-06-20] MEDS: PANTOPRAZOLE 40 MG (PROTONIX) VIAL IV SCH (08:09)
--- NOTE | 2021-06-20 08:43 | Tele-ICU Progress Note ---
Subjective Date Seen by a Provider: June 20, 2021 Time Seen by a Provider: 06:50 Subjective/Events-last exam This virtual visit was conducted using real time audio/video. Thank you for asking us to see this patient for respiratory insufficiency due to B asp pna. Also resp arrest, shock, diast HF. PE: Sedated on vent. VSS. O2 sat 92% on 65%/+8. HEENT: No obvious abnormalities. Chest: coarse breath sounds on auscultation. Copious secretions CV: RRR S1 S2 No murmur or added sounds. Abd: Non-tender. Bowel sounds Y. : Unremarkable. Thompson Y. DISPENSARY CLERK/psychiatric: Grossly intact. No obvious focal findings. Extremities: 1+ edema. Capillary refill < 3 seconds. Skin: unremarkable. Results: Elevated Na 147, BUN 24, BG 194, D-dimer 4.6. Decreased Hb 7.3, Alb 2.2. B.35/42/70 on 60%/+5. CXR: Increased congestion. Available chart/ vitals / labs / images reviewed. Video assessment done using teleICU camera, rest of exam as per RN. A/P: Respiratory insufficiency: Continue present management with vent., duonebs, prop., fent. Wean FiO2 as laureen. No SBT today. Monitor for increasing oxygenation needs. Critical Care: critically ill patient. Cont. PPI, abx, lasix, plavix, SSI. [place] stopped, on SCDs. Check FOB once pt produces a stool. Replace K. Discussed with XOCHITL Melendez. Asked RN to reach out to eICU if any questions or concerns later. Time spent with patient/coordination of care with other health professionals (mins):20 Sepsis Event Evaluation Height, Weight, BMI Height: 5'9.00" Weight: 247lbs. 7.0oz. 112.905194ic; 38.18 BMI Method:Stated Exam Exam Patient acknowledged, consented, and participated in this virtual visit which was conducted using real time audio/video Vital Signs Date Time Temp Pulse Resp B/P (MAP) Pulse Ox O2 Delivery O2 Flow Rate FiO2 06/20/21 08:06 37.2 Mechanical Ventilator 65.00 06/20/21 08:00 36.8 06/20/21 07:00 86 06/20/21 06:47 84 25 92 55 06/20/21 06:00 90 20 131/63 91 Mechanical Ventilator 55.00 06/20/21 05:00 86 20 121/62 92 Mechanical Ventilator 40.00 06/20/21 04:00 85 22 129/66 93 Mechanical Ventilator 40.00 06/20/21 03:23 50 06/20/21 03:01 93 Mechanical Ventilator 50 06/20/21 03:00 87 22 115/60 92 Mechanical Ventilator 40.00 06/20/21 02:50 85 132/64 06/20/21 02:27 85 22 93 50 06/20/21 02:00 81 19 132/64 94 Mechanical Ventilator 40.00 06/20/21 01:00 81 20 109/55 92 Mechanical Ventilator 40.00 06/20/21 01:00 81 06/20/21 00:00 79 12 109/55 93 Mechanical Ventilator 40.00 06/20/21 00:00 50 06/19/21 23:19 93 Mechanical Ventilator 50 06/19/21 23:00 87 12 114/54 92 Mechanical Ventilator 40.00 06/19/21 22:45 89 124/64 06/19/21 22:40 37.1 06/19/21 22:00 89 12 113/57 95 Mechanical Ventilator 40.00 06/19/21 21:59 89 22 96 50 06/19/21 21:00 86 21 109/57 94 Mechanical Ventilator 40.00 06/19/21 20:11 50 06/19/21 20:00 94 Mechanical Ventilator 50 06/19/21 20:00 93 12 124/61 94 Mechanical Ventilator 40.00 06/19/21 19:55 37.1 06/19/21 19:00 93 06/19/21 19:00 93 14 115/57 94 Mechanical Ventilator 40.00 06/19/21 18:23 93 22 94 50 06/19/21 18:04 97 105/56 06/19/21 18:00 Mechanical Ventilator 50.00 06/19/21 18:00 93 106/56 94 Mechanical Ventilator 50.00 06/19/21 17:00 94 21 114/54 94 Mechanical Ventilator 60.00 06/19/21 16:11 60 06/19/21 16:00 97 14 110/57 96 Mechanical Ventilator 60.00 06/19/21 16:00 97 Mechanical Ventilator 50 06/19/21 15:51 37.7 06/19/21 15:00 105 23 127/62 94 Mechanical Ventilator 60.00 06/19/21 14:40 103 24 91 60 06/19/21 14:07 90 130/67 06/19/21 14:00 90 15 130/67 91 Mechanical Ventilator 60.00 06/19/21 13:00 82 06/19/21 13:00 82 14 108/53 91 Mechanical Ventilator 60.00 06/19/21 12:11 60 06/19/21 12:00 91 Mechanical Ventilator 60 06/19/21 12:00 36.6 06/19/21 12:00 78 14 110/55 91 Mechanical Ventilator 60.00 06/19/21 11:00 89 13 110/55 92 Mechanical Ventilator 60.00 06/19/21 10:30 90 105/54 06/19/21 10:02 93 24 92 60 06/19/21 10:00 93 15 134/64 92 Mechanical Ventilator 60.00 06/19/21 09:09 87 110/56 06/19/21 09:00 87 16 110/56 93 Mechanical Ventilator 60.00 I & O 06/20/21 07:00 Intake Total 2770 ml Output Total 2075 ml Balance 695 ml Height & Weight Height: 5'9.00" Weight: 247lbs. 7.0oz. 112.259107lx; 38.18 BMI Method:Stated General Appearance: No Apparent Distress, WD/WN, Chronically ill, Obese, Other (Sedated and intubated) HEENT: Other (ET tube) Neck: Other (Right IJ central line) Respiratory: Lungs Clear, Normal Breath Sounds Cardiovascular: Regular Rate, Rhythm Capillary Refill: Less Than 3 Seconds Gastrointestinal: soft, no organomegaly; No mass Extremity: Normal Inspection, Pedal Edema Neurologic/Psychiatric: No Alert, No Oriented x3; Other (Patient intubated and sedated ) Skin: Normal Color, Warm/Dry Lymphatic: No Adenopathy (Head and neck) Results Lab Laboratory Tests 06/19/21 03:15 06/20/21 02:45 Assessment/Plan Assessment/Plan See free text Critical Care: Ventilator Management ANABELA RANGEL MD June 20, 2021 08:43
[2021-06-20 10:17] VITALS: BP 149/72
--- NOTE | 2021-06-20 10:40 | Diagnostic Imaging Report ---
INDICATION: Dyspnea. TECHNIQUE: Frontal chest obtained at 10:17 a.m. and compared to 06/18/2021. FINDINGS: ET tube tip overlies midtrachea. NG tube tip is below the film. Right IJ catheter tip overlies the mid SVC. Extensive patchy bilateral infiltrates throughout both lungs are again noted and unchanged compared to the prior study. There is no pneumothorax. There is a small amount of pleural fluid in the left costophrenic angle. IMPRESSION: Unchanged extensive bilateral infiltrates. Life support lines are stable. There is a small amount of pleural fluid in the left costophrenic angle which has increased compared to the prior study. Dictated by: Dictated on workstation # [id number]
[2021-06-20 11:01] LABS: ABG BASE EXCESS -0.8 MMOL/L (-2.5-2.5); ABG OXYGEN SATURATION 77 % (94-100); ABG PCO2 42 MMHG (35-45); ABG PH 7.37 (7.37-7.43); ABG PO2 40 MMHG (79-93); ALLENS TEST POSITIVE; INSPIRED O2 70%
[2021-06-20 11:02] LABS: PATIENT TEMP 37.4; VENTILATOR YES
[2021-06-20] MEDS: NOREPINEPHRINE 8 MG/250 ML 250 ML IV SCH ×2 (11:16→23:44)
[2021-06-20] MEDS: NS IV 1000 ML 1,000 ML IV SCH ×2 (12:13→13:01)
[2021-06-20 14:08] VITALS: BP 116/58
[2021-06-20 19:26] VITALS: BP 143/70
[2021-06-20] MEDS: polyethylene glycoL POWDER 17 GM (MIRALAX) PACK NG SCH (21:05)
[2021-06-20] MEDS: LACRI-LUBE OPTHALMIC OINT 3.5 GM TUBE OU SCH (21:07)
[2021-06-20 22:28] VITALS: BP 143/70
[2021-06-21] MEDS: RT-ALBUTEROL/IPRATROPIUM 3 ML (DUONEB) VIAL INH SCH ×6 (02:24→21:36)
[2021-06-21 02:25] VITALS: BP 132/61
[2021-06-21] MEDS: fentaNYL DRIP PRE-MIX 250 ML IV SCH ×5 (04:22→23:25)
[2021-06-21 04:49] LABS: BASOPHILS % (AUTO) 0 % (0-10); EOSINOPHILS # (AUTO) 0.6 10^3/uL (0.0-0.3); EOSINOPHILS % (AUTO) 6 % (0-10); HEMATOCRIT 25 % (40-54); HEMOGLOBIN 7.4 g/dL (13.3-17.7); LYMPHOCYTES # (AUTO) 0.9 10^3/uL (1.0-4.0); LYMPHOCYTES % (AUTO) 8 % (12-44); MEAN CORPUSCULAR HEMOGLOBIN 27 pg (25-34); MEAN CORPUSCULAR HGB CONC 30 g/dL (32-36); MEAN CORPUSCULAR VOLUME 89 fL (80-99); MEAN PLATELET VOLUME 9.9 fL (9.0-12.2); MONOCYTES # (AUTO) 0.7 10^3/uL (0.0-1.0); MONOCYTES % (AUTO) 6 % (0-12); NEUTROPHILS # (AUTO) 8.5 10^3/uL (1.8-7.8); NEUTROPHILS % (AUTO) 79 % (42-75); PLATELET COUNT 343 10^3/uL (130-400); WHITE BLOOD COUNT 10.9 10^3/uL (4.3-11.0)
[2021-06-21 05:03] LABS: ALBUMIN 2.2 GM/DL (3.2-4.5)
[2021-06-21 05:05] LABS: CALCIUM 8.7 MG/DL (8.5-10.1)
[2021-06-21 05:06] LABS: TOTAL PROTEIN 5.7 GM/DL (6.4-8.2)
[2021-06-21 05:08] LABS: BILIRUBIN,TOTAL 0.2 MG/DL (0.1-1.0)
[2021-06-21 05:09] LABS: PHOSPHORUS 3.8 MG/DL (2.3-4.7)
[2021-06-21 05:10] LABS: CREATININE SERUM 1.04 MG/DL (0.60-1.30)
[2021-06-21 05:12] LABS: MAGNESIUM 1.9 MG/DL (1.6-2.4)
[2021-06-21] MEDS: POTASSIUM CL 10MEQ/50ML IVPB 50 ML IV SCH (05:20)
[2021-06-21] MEDS: KCL 20 MEQ TAB (K-DUR) PO SCH (05:20)
[2021-06-21] MEDS: MAGNESIUM 1 GM/100 ML IVPB 100 ML IV SCH (05:22)
[2021-06-21 05:23] LABS: ABG BASE EXCESS -1.4 MMOL/L (-2.5-2.5); ABG OXYGEN SATURATION 97 % (94-100); ABG PCO2 52 MMHG (35-45); ABG PO2 82 MMHG (79-93); ABG TCO2 25.7 MMOL/L (21.0-31.0)
[2021-06-21 05:24] LABS: ABG PH 7.29 (7.37-7.43)
[2021-06-21 05:25] LABS: ALLENS TEST YES-POS; INSPIRED O2 75%; PATIENT TEMP 37.6; VENTILATOR YES
[2021-06-21] MEDS: FUROSEMIDE 40 MG/4 ML INJ (LASIX) IVP SCH ×2 (05:49→16:11)
[2021-06-21] MEDS: meTOprolol 5 MG/5 ML (LOPRESSOR) VIAL IV SCH ×3 (05:49→16:49)
[2021-06-21] MEDS: inSUlin ASPART (NovoLOG) 1 UNIT/0.01 ML (CHARGE PER UNIT) SC SCH ×3 (05:51→18:24)
--- NOTE | 2021-06-21 05:56 | Progress Note - Hospitalist ---
Subjective HPI/CC On Admission Date Seen by Provider: June 21, 2021 Time Seen by Provider: 09:00 Subjective/Events-last exam Patient still intubated Increase work of breathing Hgb low FIO2 70% PEEP 10 Spoke to Reji his cousin who is his DPOA and updated him on the futility of current management and no expected recovery and he agrees for ultimate end of life care plan with terminal extubation after I explained our options. 2 physicians must document this per requirements of his advance directive in order to meet that expectation and Dr Oswald was updated on this requirement by Sheryl. Repeat ABG showed hypoxia Stacked breathing noted PEEP is at 10, FiO2 is at 75% Spoke with Reji, the DPOA, and we will make decision on terminal extubation today Objective Exam Vital Signs Vital Signs Date Time Temp Pulse Resp B/P (MAP) Pulse Ox O2 Delivery O2 Flow Rate FiO2 06/22/21 04:00 92 Mechanical Ventilator 80 06/22/21 02:44 75.00 06/22/21 02:08 122/60 06/22/21 01:57 84 22 06/22/21 00:32 37.0 Capillary Refill : Less Than 3 Seconds General Appearance: No Apparent Distress, WD/WN, Chronically ill, Other (Sedated and intubated) Respiratory: Lungs Clear, Normal Breath Sounds Cardiovascular: Regular Rate, Rhythm Results/Procedures Lab Laboratory Tests 06/22/21 03:40 Patient resulted labs reviewed. Assessment/Plan Assessment and Plan Assess & Plan/Chief Complaint Assessment: Acute on chronic respiratory failure Ventilator dependent Aspiration pneumonia status post antibiotics Acute on chronic diastolic congestive heart failure Acute kidney injury Hypertension Anemia Low-grade fever 06/20/2021 Plan: Restart Lovenox Appreciate eICU Ventilator dependent 06/18/2021: Appreciate ICU management Supportive care 06/19/2021: Supportive care Monitor closely 06/20/2021: Ventilator management appreciated 06/21/2021: DNR Needs terminal extubation Critical Care Ventilator Management DEIRDRE DIANA DO June 21, 2021 05:56
[2021-06-21 06:39] VITALS: BP 118/59
[2021-06-21 08:29] LABS: ABG BASE EXCESS -0.2 MMOL/L (-2.5-2.5); ABG OXYGEN SATURATION 91 % (94-100); ABG PCO2 52 MMHG (35-45); ABG PO2 68 MMHG (79-93); ABG TCO2 26.7 MMOL/L (21.0-31.0)
[2021-06-21 08:30] LABS: ALLENS TEST YES-POS
[2021-06-21] MEDS: PANTOPRAZOLE 40 MG (PROTONIX) VIAL IV SCH (08:30)
[2021-06-21 08:31] LABS: INSPIRED O2 75%; PATIENT TEMP 37.6; VENTILATOR YES
[2021-06-21 08:32] LABS: ABG PH 7.31 (7.37-7.43)
--- NOTE | 2021-06-21 09:14 | Tele-ICU Progress Note ---
Subjective Date Seen by a Provider: June 21, 2021 Time Seen by a Provider: 07:45 Subjective/Events-last exam This virtual visit was conducted using real time audio/video. Thank you for asking us to see this patient for respiratory insufficiency due to B asp pna. Also resp arrest, shock, diast HF. PE: Sedated on vent. VSS. O2 sat 92% on 75%/+10. HEENT: No obvious abnormalities. Chest: coarse breath sounds on auscultation. Copious secretions. CV: RRR S1 S2 No murmur or added sounds. Abd: Non-tender. Bowel sounds Y. : Unremarkable. Thompson Y. POSTDOCTORAL RESEARCH ASSOCIATE/psychiatric: Grossly intact. No obvious focal findings. Extremities: 1+ edema. Capillary refill < 3 seconds. Skin: unremarkable. Results: Elevated Na 148, BUN 24, BG 194, D-dimer 4.6. Decreased Hb 7.4, Alb 2.2. B.31/52/68 on 70%. CXR: Increased congestion. Available chart/ vitals / labs / images reviewed. Video assessment done using teleICU camera, rest of exam as per RN. A/P: Respiratory insufficiency: Continue present management with vent., duonebs, prop., fent. Wean FiO2 as laureen. No SBT today. Monitor for increasing oxygenation needs. Patient status continues to worsen despite maximum medical management. Prognosis extremely poor. Recommend palliative care discussion. Critical Care: critically ill patient. Cont. PPI, abx, lasix, plavix, SSI. [place] stopped, on SCDs. Check FOB once pt produces a stool. Discussed with XOCHITL Saucedo. Asked RN to reach out to eICU if any questions or concerns later. Time spent with patient/coordination of care with other health professionals (mins):25 Sepsis Event Evaluation Height, Weight, BMI Height: 5'9.00" Weight: 247lbs. 7.0oz. 112.329221wt; 38.18 BMI Method:Stated Exam Exam Patient acknowledged, consented, and participated in this virtual visit which was conducted using real time audio/video Vital Signs Date Time Temp Pulse Resp B/P (MAP) Pulse Ox O2 Delivery O2 Flow Rate FiO2 06/21/21 08:00 92 12 120/59 93 Mechanical Ventilator 75.00 06/21/21 07:54 37.6 06/21/21 07:00 86 9 117/56 92 Mechanical Ventilator 75.00 06/21/21 07:00 87 06/21/21 06:39 86 22 92 75 06/21/21 06:00 96 12 117/66 94 Mechanical Ventilator 75.00 06/21/21 05:19 100 132/61 06/21/21 05:00 94 12 118/57 95 Mechanical Ventilator 75.00 06/21/21 04:00 75 06/21/21 04:00 94 Mechanical Ventilator 75 06/21/21 04:00 95 12 118/58 95 Mechanical Ventilator 75.00 06/21/21 03:00 97 13 122/57 94 Mechanical Ventilator 75.00 06/21/21 02:25 100 25 94 75 06/21/21 02:00 99 13 132/61 94 Mechanical Ventilator 75.00 06/21/21 01:00 101 06/21/21 01:00 101 15 129/63 92 Mechanical Ventilator 75.00 06/21/21 00:24 89 Mechanical Ventilator 75 06/21/21 00:16 88 143/70 06/21/21 00:00 75 06/21/21 00:00 103 14 150/69 90 Mechanical Ventilator 75.00 06/20/21 23:44 88 143/70 06/20/21 23:08 37.8 06/20/21 23:05 Mechanical Ventilator 75.00 06/20/21 23:00 100 14 138/61 90 Mechanical Ventilator 75.00 06/20/21 22:28 88 23 93 75 06/20/21 22:00 93 12 156/71 94 Mechanical Ventilator 75.00 06/20/21 21:00 92 12 135/62 94 Mechanical Ventilator 75.00 06/20/21 20:00 75 06/20/21 20:00 91 Mechanical Ventilator 75 06/20/21 20:00 97 13 136/65 92 Mechanical Ventilator 75.00 06/20/21 19:56 37.6 06/20/21 19:26 88 23 93 75 06/20/21 19:00 85 06/20/21 19:00 37.6 Mechanical Ventilator 75.00 06/20/21 19:00 85 12 143/70 92 Mechanical Ventilator 75.00 06/20/21 18:10 Mechanical Ventilator 75.00 06/20/21 17:15 Mechanical Ventilator 60.00 06/20/21 17:00 92 12 136/67 90 Mechanical Ventilator 70.00 06/20/21 16:12 36.6 06/20/21 16:11 75 06/20/21 16:00 89 14 133/61 91 Mechanical Ventilator 70.00 06/20/21 16:00 92 Mechanical Ventilator 65 06/20/21 15:17 89 137/68 06/20/21 15:00 89 13 132/66 92 Mechanical Ventilator 70.00 06/20/21 14:08 84 24 93 60 06/20/21 14:00 84 23 116/58 95 Mechanical Ventilator 70.00 06/20/21 13:38 Mechanical Ventilator 06/20/21 13:00 82 12 114/56 95 Mechanical Ventilator 70.00 06/20/21 12:56 83 06/20/21 12:30 Mechanical Ventilator 70.00 06/20/21 12:11 65 06/20/21 12:00 93 12 133/64 95 Mechanical Ventilator 65.00 06/20/21 12:00 92 Mechanical Ventilator 65 06/20/21 11:54 36.4 06/20/21 11:00 92 11 113/59 92 Mechanical Ventilator 65.00 06/20/21 10:17 95 27 91 70 06/20/21 10:06 93 134/62 06/20/21 10:00 93 13 134/62 89 Mechanical Ventilator 65.00 I & O 06/21/21 07:00 Intake Total 2820 ml Output Total 2950 ml Balance -130 ml Height & Weight Height: 5'9.00" Weight: 247lbs. 7.0oz. 112.276611bn; 38.18 BMI Method:Stated General Appearance: No Apparent Distress, WD/WN, Chronically ill, Obese, Other (Sedated and intubated) HEENT: Other (ET tube) Neck: Other (Right IJ central line) Respiratory: Decreased Breath Sounds Cardiovascular: Regular Rate, Rhythm Capillary Refill: Less Than 3 Seconds Gastrointestinal: soft, no organomegaly; No mass Extremity: Normal Inspection, Pedal Edema Neurologic/Psychiatric: No Alert, No Oriented x3; Other (Patient intubated and sedated ) Skin: Normal Color, Warm/Dry Lymphatic: No Adenopathy (Head and neck) Results Lab Laboratory Tests 06/20/21 02:45 06/21/21 04:30 Assessment/Plan Assessment/Plan See free text. Critical Care: Ventilator Management ANABELA RANGEL MD June 21, 2021 09:14
[2021-06-21 10:46] VITALS: BP 122/59
--- NOTE | 2021-06-21 11:06 | Cardiology Progress Note ---
Subjective Date Seen by Provider: June 21, 2021 Time Seen by Provider: 10:30 Subjective/Events-last exam Patient is sedated and intubated Objective-Cardiology Exam Last Set of Vital Signs Vital Signs 06/21/21 06/21/21 06/21/21 11:55 12:00 12:11 Temp 37.2 Pulse 91 Resp 11 B/P (MAP) 118/58 Pulse Ox 95 O2 Delivery Mechanical Ventilator O2 Flow Rate 75.00 FiO2 75 I&O Intake and Output 06/21/21 00:00 Intake Total 2720 ml Output Total 2825 ml Balance -105 ml Intake Oral 0 ml IV Total 1550 ml Tube Feeding 720 ml Other 450 ml Output Urine Total 2825 ml General: Other HEENT: Mucous Memb Moist/[place] Neck: Supple Lungs: Other (diffuse crackles) Heart: Regular Rate, Normal S1, Normal S2, No Murmurs Abdomen: Soft Extremities: Other (2+ pitting edema) Skin: No Rashes, No Breakdown Neuro: Other (Sedated and intubated) Psych/Mental Status: Other (Sedated and intubated) Results Lab Laboratory Tests 06/21/21 04:30 A/P-Cardiology Admission Diagnosis Acute respiratory failure Congestive heart failure, acute on chronic left ventricular diastolic dysfunction, hypertensive heart disease Coronary artery disease Pneumonia Assessment/Plan Acute respiratory failure, ventilator dependent, probably secondary to pneumonia and acute pulmonary edema. Receiving antibiotic. Continue to monitor Receiving antibiotic, currently off pressors. Patient has failed multiple weaning attempts, I recommend transfer to [place] and /or tracheostomy Anemia, drop in H&H, I will discontinue Xarelto and Plavix. Monitor H&H and transfuse as needed Frequent PVCs, ventricular bigeminy, improved after starting IV beta-blockers. Tolerating it well. Continue to monitor Pneumonia, sepsis, currently off pressors. Continue to monitor closely, receiving antibiotics. Congestive heart failure, acute on chronic left ventricular diastolic dysfunction, normal systolic function, last echo was done on May 31, 2021 with ejection fraction 50 to 55%. PA pressure 20 to 25 mmHg. Had mild elevation in BNP. Acute renal insufficiency, continue to monitor renal function Multifocal pneumonia, receiving antibiotics. CXR showing some improvement. Managed by primary care physician History of recurrent chest pain, musculoskeletal. Coronary artery disease, - cath 01/09/18: proximal circumflex artery stented with Rocío 3.012 mm; mid right coronary artery stented with 2.512 mm Rocío; mild to moderate disease in the proximal LAD, severe stenosis at the ostium of first diagonal artery that is very small artery. - cath 02/04/19: total occlusion of the left PDA off the circumflex artery, patent stent in the proximal circumflex. Patent stent in the midright coronary artery. Mild disease in the LAD. - cath 12/29/20: patent stent in the proximal circumflex and right coronary artery. Severe stenosis at the distal circumflex artery, primary stenting using 2.25 x 23 mm expanded to 2.35 mm with excellent results. Has severe stenosis/subtotal occlusion at the distal right posterior descending artery, very small artery not amenable to intervention. Mild to moderate disease in the LAD. Patient was maintained on Plavix and Xarelto, he is allergic to aspirin. 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 Diabetes mellitus, h/o DKAs in the past Obesity Supervisory-Addendum Brief Supervisory Addendum Participated in pt care: history, MDM, physical Personally performed: exam, history, MDM Care discussed with: ONOFRE Results interpretation: Verified all documentation Notes: Patient was seen and evaluated with Marsha, examination performed, management plan was discussed, agree with the current scribed note, I made few changes to the note using Italic font Overall poor prognosis, patient was seen at bedside Failed multiple attempts for weaning Discussed the possibility of tracheostomy are referral for [place]. Family will be here later today to discuss prognosis and management plan. Discussed the management with MARSHA Alexander June 21, 2021 11:06 CROW KNIGHT MD June 21, 2021 13:11
[2021-06-21] MEDS: NOREPINEPHRINE 8 MG/250 ML 250 ML IV SCH (12:27)
[2021-06-21] MEDS: LACRI-LUBE OPTHALMIC OINT 3.5 GM TUBE OU SCH ×2 (12:57→20:15)
[2021-06-21 14:52] VITALS: BP 122/62
[2021-06-21 18:40] VITALS: BP 132/63
[2021-06-21] MEDS: polyethylene glycoL POWDER 17 GM (MIRALAX) PACK NG SCH (20:15)
[2021-06-21 21:36] VITALS: BP 122/60
[2021-06-22] MEDS: inSUlin ASPART (NovoLOG) 1 UNIT/0.01 ML (CHARGE PER UNIT) SC SCH ×2 (00:28→06:07)
[2021-06-22] MEDS: meTOprolol 5 MG/5 ML (LOPRESSOR) VIAL IV SCH ×2 (00:28→06:08)
[2021-06-22] MEDS: NOREPINEPHRINE 8 MG/250 ML 250 ML IV SCH (00:29)
[2021-06-22 01:57] VITALS: BP 115/60
[2021-06-22] MEDS: RT-ALBUTEROL/IPRATROPIUM 3 ML (DUONEB) VIAL INH SCH ×2 (01:57→07:09)
[2021-06-22 03:55] LABS: BASOPHILS # (AUTO) 0.1 10^3/uL (0.0-0.1); BASOPHILS % (AUTO) 1 % (0-10); EOSINOPHILS # (AUTO) 0.8 10^3/uL (0.0-0.3); EOSINOPHILS % (AUTO) 6 % (0-10); HEMATOCRIT 25 % (40-54); HEMOGLOBIN 7.5 g/dL (13.3-17.7); LYMPHOCYTES # (AUTO) 0.9 10^3/uL (1.0-4.0); LYMPHOCYTES % (AUTO) 8 % (12-44); MEAN CORPUSCULAR HEMOGLOBIN 27 pg (25-34); MEAN CORPUSCULAR HGB CONC 30 g/dL (32-36); MEAN CORPUSCULAR VOLUME 90 fL (80-99); MEAN PLATELET VOLUME 10.3 fL (9.0-12.2); MONOCYTES # (AUTO) 0.9 10^3/uL (0.0-1.0); MONOCYTES % (AUTO) 8 % (0-12); NEUTROPHILS # (AUTO) 8.9 10^3/uL (1.8-7.8); NEUTROPHILS % (AUTO) 76 % (42-75); PLATELET COUNT 393 10^3/uL (130-400); WHITE BLOOD COUNT 11.7 10^3/uL (4.3-11.0)
[2021-06-22 04:12] LABS: ALBUMIN 2.2 GM/DL (3.2-4.5); POTASSIUM 3.9 MMOL/L (3.6-5.0)
[2021-06-22 04:13] LABS: CALCIUM 8.9 MG/DL (8.5-10.1)
[2021-06-22 04:15] LABS: TOTAL PROTEIN 5.8 GM/DL (6.4-8.2)
[2021-06-22 04:16] LABS: BILIRUBIN,TOTAL 0.3 MG/DL (0.1-1.0)
[2021-06-22 04:18] LABS: CREATININE SERUM 1.06 MG/DL (0.60-1.30); PHOSPHORUS 3.6 MG/DL (2.3-4.7)
[2021-06-22] MEDS: fentaNYL DRIP PRE-MIX 250 ML IV SCH (04:34)
[2021-06-22] MEDS: MAGNESIUM 1 GM/100 ML IVPB 100 ML IV SCH (04:54)
[2021-06-22] MEDS: KCL 20 MEQ TAB (K-DUR) PO SCH (04:54)
[2021-06-22] MEDS: POTASSIUM CL 10MEQ/50ML IVPB 50 ML IV SCH (04:54)
[2021-06-22 05:41] LABS: ABG BASE EXCESS -0.2 MMOL/L (-2.5-2.5); ABG OXYGEN SATURATION 89 % (94-100); ABG PCO2 59 MMHG (35-45); ABG PO2 67 MMHG (79-93); ABG TCO2 27.8 MMOL/L (21.0-31.0)
[2021-06-22 05:44] LABS: ALLENS TEST YES-POS; INSPIRED O2 100%; PATIENT TEMP 36.7; VENTILATOR YES
[2021-06-22 05:45] LABS: ABG PH 7.26 (7.37-7.43)
--- NOTE | 2021-06-22 06:00 | Progress Note - Hospitalist ---
Subjective HPI/CC On Admission Date Seen by Provider: June 22, 2021 Time Seen by Provider: 10:30 Objective Exam Vital Signs Vital Signs Date Time Temp Pulse Resp B/P (MAP) Pulse Ox O2 Delivery O2 Flow Rate FiO2 06/22/21 11:00 107 14 141/66 98 Mechanical Ventilator 85.00 06/22/21 07:32 36.2 06/22/21 07:30 85 Capillary Refill : Less Than 3 Seconds Results/Procedures Lab Laboratory Tests 06/22/21 03:40 Patient resulted labs reviewed. Assessment/Plan Assessment and Plan Assess & Plan/Chief Complaint Assessment: Acute on chronic respiratory failure Ventilator dependent Aspiration pneumonia status post antibiotics Acute on chronic diastolic congestive heart failure Acute kidney injury Hypertension Anemia Low-grade fever 06/20/2021 Plan: Restart Lovenox Appreciate eICU Ventilator dependent 06/18/2021: Appreciate ICU management Supportive care 06/19/2021: Supportive care Monitor closely 06/20/2021: Ventilator management appreciated 06/21/2021: DNR Needs terminal extubation Critical Care Ventilator Management DEIRDRE DIANA DO June 22, 2021 06:00
[2021-06-22] MEDS: FUROSEMIDE 40 MG/4 ML INJ (LASIX) IVP SCH (06:07)
[2021-06-22 07:09] VITALS: BP 128/58
[2021-06-22 07:11] VITALS: BP 128/58
--- NOTE | 2021-06-22 07:23 | Cardiology Progress Note ---
Subjective Date Seen by Provider: June 22, 2021 Time Seen by Provider: 07:22 Subjective/Events-last exam Patient is in bed sedated and intubated Review of Systems General: Other (Unable to provide review of system) Objective-Cardiology Exam Last Set of Vital Signs Vital Signs 06/22/21 06/22/21 06/22/21 06/22/21 06/22/21 05:31 06:15 07:09 07:11 07:14 Temp 36.7 Pulse 75 Resp 26 B/P (MAP) 128/58 Pulse Ox 98 O2 Delivery Mechanical Ventilator O2 Flow Rate 90.00 FiO2 90 I&O Intake and Output 06/22/21 00:00 Intake Total 1995 ml Output Total 2675 ml Balance -680 ml Intake Oral 0 ml IV Total 700 ml Tube Feeding 720 ml Other 575 ml Output Urine Total 2675 ml General: Other HEENT: Mucous Memb Moist/Rea Neck: Supple Lungs: Other (diffuse crackles) Heart: Regular Rate, Normal S1, Normal S2, No Murmurs Abdomen: Soft Extremities: Other (2+ pitting edema) Skin: No Rashes, No Breakdown Neuro: Other (Sedated and intubated) Psych/Mental Status: Other (Sedated and intubated) Results Lab Laboratory Tests 06/22/21 03:40 A/P-Cardiology Admission Diagnosis Acute respiratory failure Congestive heart failure, acute on chronic left ventricular diastolic dysfunction, hypertensive heart disease Coronary artery disease Pneumonia Assessment/Plan Acute respiratory failure, ventilator dependent, probably secondary to pneumonia and acute pulmonary edema. Receiving antibiotic. Continue to monitor Receiving antibiotic, currently off pressors. Patient has failed multiple weaning attempts, I recommend transfer to [place] and /or tracheostomy Overall poor prognosis Anemia, drop in H&H, I will discontinue Xarelto and Plavix. Monitor H&H and transfuse as needed Frequent PVCs, ventricular bigeminy, improved after starting IV beta-blockers. Tolerating it well. Continue to monitor Pneumonia, sepsis, currently off pressors. Continue to monitor closely, receiving antibiotics. Congestive heart failure, acute on chronic left ventricular diastolic dysfunction, normal systolic function, last echo was done on May 31, 2021 with ejection fraction 50 to 55%. PA pressure 20 to 25 mmHg. Had mild elevation in BNP. Acute renal insufficiency, continue to monitor renal function Multifocal pneumonia, receiving antibiotics. CXR showing some improvement. Managed by primary care physician History of recurrent chest pain, musculoskeletal. Coronary artery disease, - cath 01/09/18: proximal circumflex artery stented with Rocío 3.012 mm; mid right coronary artery stented with 2.512 mm Rocío; mild to moderate disease in the proximal LAD, severe stenosis at the ostium of first diagonal artery that is very small artery. - cath 02/04/19: total occlusion of the left PDA off the circumflex artery, patent stent in the proximal circumflex. Patent stent in the midright coronary artery. Mild disease in the LAD. - cath 12/29/20: patent stent in the proximal circumflex and right coronary artery. Severe stenosis at the distal circumflex artery, primary stenting using 2.25 x 23 mm expanded to 2.35 mm with excellent results. Has severe stenosis/subtotal occlusion at the distal right posterior descending artery, very small artery not amenable to intervention. Mild to moderate disease in the LAD. Patient was maintained on Plavix and Xarelto, he is allergic to aspirin. 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 Diabetes mellitus, h/o DKAs in the past Obesity CROW KNIGHT MD June 22, 2021 07:23
[2021-06-22] MEDS: PANTOPRAZOLE 40 MG (PROTONIX) VIAL IV SCH (08:48)
[2021-06-22] MEDS: LACRI-LUBE OPTHALMIC OINT 3.5 GM TUBE OU SCH (08:49)
[2021-06-22] MEDS ORDERED: SALIVA STIMULANT MOUTH SPRAY (BIOTENE) 1.5 OZ MM PRN (10:30)
[2021-06-22] MEDS ORDERED: LORazepam INJ 2 MG/ML (ATIVAN) VIAL IVP PRN (10:30)
[2021-06-22] MEDS ORDERED: ARTIFICAL TEARS 0.4 ML UNIT DOSE (REFRESH PLUS) OU PRN (10:30)
[2021-06-22] MEDS ORDERED: ACETAMINOPHEN 650 MG SUPP (TYLENOL) PR PRN (10:30)
[2021-06-22] MEDS ORDERED: BISACODYL 10 MG SUPP (DULCOLAX) PR PRN (10:30)
[2021-06-22] MEDS ORDERED: GLYCOPYRROLATE 0.2 MG/ML (ROBINUL) 2 ML VIAL IV PRN (10:30)
[2021-06-22] MEDS ORDERED: RT-ALBUTEROL/IPRATROPIUM 3 ML (DUONEB) VIAL INH PRN (10:30)
[2021-06-22] MEDS ORDERED: PROMETHAZINE INJ 25 MG/ML (PHENERGAN) AMP IVP PRN (10:30)
[2021-06-22] MEDS ORDERED: morphine INJ 4 MG/ML 1 ML (VIAL/SYRINGE) IV PRN (10:30)
[2021-06-22] MEDS ORDERED: ONDANSETRON 4 MG/2 ML (SDV) Z0FRAN IVP PRN (10:30)
--- NOTE | 2021-06-22 10:47 | Tele-ICU Progress Note ---
Subjective Date Seen by a Provider: June 22, 2021 Time Seen by a Provider: 10:47 Subjective/Events-last exam (Tele-ICU Physician , Progress Note ) Available chart/ vitals / labs / Images reviewed Video assessment done using teleICU camera, rest of exam as per RN Discussed with RN , EXAM PER RN Events overnight : increased Fio2 Afebrile FiO2 - 80 PEEP 10 I/O = neg Drips: + Pressors: OFF Sedation gtt: propofol 30 , fent 250 ( RASS -1 ) VENT SETTINGS and ABG reviewed Not candidate for SBT today REVIEWED Cardiovascular Stability / Sedation Score / FI02/PEEP / ABG / CXR Consultants: carri Hospital course: (06/11) 60 Y/O Male admitted for Respiratory arrest. Attempted intubation per EMS with large volume emesis. Intubated in ER. 06/13- Hb 6.9 - transfusion 1 uPRBC A/P Acute resp failure with PNA - 90% fio2 and PEEP 10 - off abx , on lasix BID - vacation sedatoion - off for 2 h - no meaninfull response Bilateral PNA , R>>L , aspiration ( covid , flu NEG ) - S/p FOB 06/11 - + yeast -MErrem 06/11 ( multiple allergies ) - finished Shock - LEVO OFF Anemia - delutional ? no obvious bleeding - 06/13 - transfusion 1 uPRBC - AC on hold- Xarelto and Plavix. Plural effusions - not large by CT 06/11 CAD with stents and on xarelto ( on hold - CPM - EF 50 % recently HAWK - sligthly worse - add colloids x2 Elev ddimer - on full yina dose already Encephalopaty - CTH neg 06/11 - follow commands PER RN _ PCP DISCUSSED WITH FAMILY - COMFORT MEASURES PLANNED FOR TODAY Lines :R IJ 06/11 (Central Line Necessity Reviewed) Thompson: + OG: Nutrition: NPO , LIS Analgesia: Anxiety/ delirium VTE Prophylaxis: on hold Stress Ulcer Prophylaxis: ppi Plans in collaboration with bedside consultants and IM MDs. Discussed with RN to reach out if any questions or concerns A total of 10 minutes of critical care time was devoted to this patient today, required to treat and/or prevent further deterioration of critical care conditi on ( as above) . Sepsis Event Evaluation Height, Weight, BMI Height: 5'9.00" Weight: 247lbs. 7.0oz. 112.422890ay; 38.18 BMI Method:Stated Exam Exam Patient acknowledged, consented, and participated in this virtual visit which was conducted using real time audio/video Vital Signs Date Time Temp Pulse Resp B/P (MAP) Pulse Ox O2 Delivery O2 Flow Rate FiO2 06/22/21 09:00 92 14 153/71 95 Mechanical Ventilator 85.00 06/22/21 08:00 80 14 119/91 97 Mechanical Ventilator 85.00 06/22/21 07:56 Mechanical Ventilator 85.00 06/22/21 07:42 81 11 124/63 98 Mechanical Ventilator 90.00 06/22/21 07:32 36.2 06/22/21 07:30 96 Mechanical Ventilator 85 06/22/21 07:30 85 06/22/21 07:14 75 06/22/21 07:11 88 128/58 06/22/21 07:09 81 26 98 90 06/22/21 06:15 Mechanical Ventilator 90.00 06/22/21 06:00 90 12 124/59 97 Mechanical Ventilator 100.00 06/22/21 05:31 36.7 Mechanical Ventilator 100.00 06/22/21 05:00 98 13 150/70 92 Mechanical Ventilator 80.00 06/22/21 04:00 92 Mechanical Ventilator 80 06/22/21 04:00 91 12 141/66 92 Mechanical Ventilator 80.00 06/22/21 04:00 Mechanical Ventilator 80.00 06/22/21 04:00 80 06/22/21 03:00 89 12 139/67 94 Mechanical Ventilator 75.00 06/22/21 02:44 Mechanical Ventilator 75.00 06/22/21 02:08 122/60 06/22/21 02:00 84 12 137/66 93 Mechanical Ventilator 80.00 06/22/21 01:57 84 22 93 75 06/22/21 01:00 81 06/22/21 01:00 81 14 117/57 92 Mechanical Ventilator 80.00 06/22/21 00:34 92 Mechanical Ventilator 80 06/22/21 00:32 37.0 Mechanical Ventilator 80.00 06/22/21 00:31 80 06/22/21 00:00 92 12 129/60 90 Mechanical Ventilator 75.00 06/21/21 23:00 91 17 129/59 90 Mechanical Ventilator 75.00 06/21/21 22:36 36.0 06/21/21 22:00 94 21 109/52 94 Mechanical Ventilator 75.00 06/21/21 21:59 94 06/21/21 21:36 92 26 93 65 06/21/21 21:00 90 12 130/64 93 Mechanical Ventilator 75.00 06/21/21 20:00 75 06/21/21 20:00 36.7 Mechanical Ventilator 75.00 06/21/21 20:00 89 19 111/61 92 Mechanical Ventilator 75.00 06/21/21 19:32 35.2 06/21/21 19:21 92 Mechanical Ventilator 80 06/21/21 19:00 95 06/21/21 19:00 95 19 120/59 92 Mechanical Ventilator 75.00 06/21/21 18:40 93 27 91 65 06/21/21 18:00 90 12 128/62 95 Mechanical Ventilator 75.00 06/21/21 17:00 87 9 126/61 94 Mechanical Ventilator 75.00 06/21/21 16:11 160/73 06/21/21 16:00 95 Mechanical Ventilator 75 06/21/21 16:00 99 14 160/73 93 Mechanical Ventilator 75.00 06/21/21 16:00 75 06/21/21 15:24 35.4 06/21/21 15:00 90 9 125/60 95 Mechanical Ventilator 75.00 06/21/21 14:52 90 21 95 75 06/21/21 14:00 86 11 120/63 95 Mechanical Ventilator 75.00 06/21/21 13:00 80 06/21/21 13:00 81 10 120/59 95 Mechanical Ventilator 75.00 06/21/21 12:11 75 06/21/21 12:00 95 Mechanical Ventilator 75 06/21/21 12:00 91 11 118/58 96 Mechanical Ventilator 75.00 06/21/21 11:55 37.2 06/21/21 11:00 86 20 122/59 94 Mechanical Ventilator 75.00 I & O 06/22/21 07:00 Intake Total 1495 ml Output Total 3000 ml Balance -1505 ml Height & Weight Height: 5'9.00" Weight: 247lbs. 7.0oz. 112.643843le; 38.18 BMI Method:Stated General Appearance: No Apparent Distress, WD/WN, Chronically ill, Other (Wendy juan and intubated) HEENT: Other (ET tube) Neck: Other (Right IJ central line) Respiratory: Lungs Clear, Normal Breath Sounds Cardiovascular: Regular Rate, Rhythm Capillary Refill: Less Than 3 Seconds Gastrointestinal: soft, no organomegaly; No mass Extremity: Normal Inspection, Pedal Edema Neurologic/Psychiatric: No Alert, No Oriented x3; Other (Patient intubated and sedated ) Skin: Normal Color, Warm/Dry Lymphatic: No Adenopathy (Head and neck) Results Lab Laboratory Tests 06/21/21 04:30 06/22/21 03:40 Assessment/Plan Assessment/Plan ` THOMAS CRUMP MD June 22, 2021 10:47
--- NOTE | 2021-06-22 12:01 | Discharge Summary ---
Discharge Summary Hospital Course Was the Problem List Reviewed?: Yes Problems/Dx: (1) Acute and chronic respiratory failure with hypoxia Status: Acute (2) Insulin dependent diabetes mellitus with complications Status: Chronic (3) Coronary artery disease without angina pectoris Status: Chronic Qualifiers: Qualified Codes: I25.10 - Atherosclerotic heart disease of [place] coronary artery without angina pectoris Hospital Course Date of Admission: Jun 11, 2021 at 13:20 Admission Diagnosis : Family Physician/Provider: Socrates Hurtado MD Date of Discharge: 06/22/21 Discharge Diagnosis: Assessment: Acute on chronic respiratory failure Ventilator dependent Aspiration pneumonia status post antibiotics Acute on chronic diastolic congestive heart failure Acute kidney injury Hypertension Anemia Hospital Course: Pt had a lengthy hospital course for 12 days which started with acute respiratory failure requiring ventilator status. Which remained without improvement. He completed aspiration pneumonia and continued to decline. The decision was made after multiple conversations with the DPOA, Reji, his cousin, that terminal extubation was in order. He quickly after extubation. Labs and Pending Lab Test: Laboratory Tests 06/21/21 17:43: Glucometer 193H 06/22/21 00:13: Glucometer 192H 06/22/21 03:40: White Blood Count 11.7H, Red Blood Count 2.80L, Hemoglobin 7.5L, Hematocrit 25L, Mean Corpuscular Volume 90, Mean Corpuscular Hemoglobin 27, Mean Corpuscular Hemoglobin Concent 30L, Red Cell Distribution Width 17.4H, Platelet Count 393, Mean Platelet Volume 10.3, Immature Granulocyte % (Auto) 2, Neutrophils (%) (Auto) 76H, Lymphocytes (%) (Auto) 8L, Monocytes (%) (Auto) 8, Eosinophils (%) (Auto) 6, Basophils (%) (Auto) 1, Neutrophils # (Auto) 8.9H, Lymphocytes # (Auto) 0.9L, Monocytes # (Auto) 0.9, Eosinophils # (Auto) 0.8H, Basophils # (Auto) 0.1, Immature Granulocyte # (Auto) 0.2H, Sodium Level 146H, Potassium Level 3.9, Chloride Level 112H, Carbon Dioxide Level 24, Anion Gap 10, Blood Urea Nitrogen 25H, Creatinine 1.06, Estimat Glomerular Filtration Rate 80, BUN/Creatinine Ratio 24, Glucose Level 191H, Calcium Level 8.9, Corrected Calcium 10.3H, Phosphorus Level 3.6, Magnesium Level 2.0, Total Bilirubin 0.3, Aspartate Amino Transf (AST/SGOT) 19, Alanine Aminotransferase (ALT/SGPT) 13, Alkaline Phosphatase 91, Total Protein 5.8L, Albumin 2.2L 06/22/21 05:30: Blood Gas Puncture Site L RAD, Blood Gas Patient Temperature 36.7, Arterial Blood pH 7.26*L, Arterial Blood Partial Pressure CO2 59H, Arterial Blood Partial Pressure O2 67L, Arterial Blood HCO3 26, Arterial Blood Total CO2 27.8, Arterial Blood Oxygen Saturation 89L, Arterial Blood Base Excess -0.2, Kush Test YES- POS, Blood Gas Ventilator Setting YES, Blood Gas Inspired Oxygen 100% 06/22/21 05:56: Glucometer 186H Microbiology 06/11/21 Mycobacterial Culture - Preliminary, Resulted 06/11/21 Blood Culture - Final, Complete No growth 06/11/21 Urine Culture - Final, Complete NO GROWTH Home Meds Active Furosemide 40 Mg Tablet 40 Mg PO BID Potassium Chloride 10 Meq Tab.er.prt 10 Meq PO BID Reported Meclizine HCl 25 Mg Tablet 25 Mg PO DAILY Albuterol Sulfate 2.5 Mg/0.5 Ml Vial.neb 2.5 Mg INH BID Farxiga (Dapagliflozin Propanediol) 10 Mg Tablet 10 Mg PO DAILY Diclofenac Sodium 100 Gm Gel..gram. 2 Gm TP TID PRN APPLY TO HANDS AND KNEES Hydrocodone-Acetamin 7.5-325 (Hydrocodone/Acetaminophen) 1 Each Tablet 1 Ea PO Q6H PRN MDD T Hydroxyzine Pamoate 50 Mg Capsule 50 Mg PO 1700 Pantoprazole Sodium 40 Mg Tablet.dr 40 Mg PO HS Xarelto Tablet (Rivaroxaban) 15 Mg Tablet 15 Mg PO 1700 Nitroglycerin 0.4 Mg Tab.subl 0.4 Mg SL UD PRN Metoprolol Succinate 100 Mg Tab.er.24h 100 Mg PO DAILY Isosorbide Mononitrate ER (Isosorbide Mononitrate) 30 Mg Tab.er.24h 30 Mg PO DAILY Plavix (Clopidogrel Bisulfate) 75 Mg Tablet 75 Mg PO DAILY Novolog Flexpen (Insulin Aspart) 300 Units/3 Ml Solution 5 Units SQ TID Duloxetine HCl 60 Mg Capsule.dr 60 Mg PO 0900,1700 Losartan Potassium 100 Mg Tablet 100 Mg PO DAILY Levemir Flextouch (Insulin Detemir) 100 Unit/1 Ml Insuln.pen 15 Unit SQ BID Lipitor (Atorvastatin Calcium) 40 Mg Tablet 40 Mg PO HS Amlodipine Besylate 10 Mg Tablet 10 Mg PO DAILY Janumet 50-1,000 mg Tablet (Sitagliptin Phos/Metformin HCl) 1 Each Tablet 1 Each PO 0900,1700 Assessment/Pt Instructions Discharge Planning: <30 minutes discharge planning Discharge Physical Examination Vital Signs Vital Signs Date Time Temp Pulse Resp B/P (MAP) Pulse Ox O2 Delivery O2 Flow Rate FiO2 06/22/21 11:00 107 14 141/66 98 Mechanical Ventilator 85.00 06/22/21 07:32 36.2 06/22/21 07:30 85 Allergies: Coded Allergies: aspirin (Verified Allergy, Severe, 12/10/17) egg (Verified Allergy, Intermediate, Vomiting, 03/21/20) Penicillins (Unverified Allergy, Unknown, 07/19/13) Sulfa (Sulfonamide Antibiotics) (Unverified Allergy, Unknown, 07/19/13) lidocaine (Verified Allergy, Unknown, 01/06/16) peanut (Unverified Allergy, Unknown, air closes off, 07/19/13) strawberry (Unverified Allergy, Unknown, airway closes off, 07/19/13) codeine (Unverified Adverse Reaction, Mild, NAUSEA, 02/03/14) Uncoded Allergies: ENVIRONMENTAL (Allergy, Unknown, 07/19/13) raw egg whites (Adverse Reaction, Unknown, upset stomach, 12/09/17) Discharge Summary Date of Admission Jun 11, 2021 at 13:20 Date of Discharge Comfort Measures/ End of Life Care: Comfort Measures Discharge Diagnosis Assessment: Acute on chronic respiratory failure Ventilator dependent Aspiration pneumonia status post antibiotics Acute on chronic diastolic congestive heart failure Acute kidney injury Hypertension Anemia Low-grade fever 06/20/2021 Plan: Restart Lovenox Appreciate eICU Ventilator dependent 06/18/2021: Appreciate ICU management Supportive care 06/19/2021: Supportive care Monitor closely 06/20/2021: Ventilator management appreciated 06/21/2021: DNR Needs terminal extubation DEIRDRE DIANA DO June 22, 2021 12:01
== END 2021-06-22 11:48 | disposition expired | DRG 870 ==
LOC: EDUNIT# 12:52 → ER 12:53 → ICU 13:20
PROVIDERS: ADMIT Internal Medicine; ATTEND Internal Medicine
PROC: 5A1955Z Respiratory Ventilation, Greater than 96 Consecutive Hours (ICD-10-PCS; principal; 2021-06-11)
PROC: 0BH18EZ Insertion of Endotracheal Airway into Trachea, Via Natural or Artificial Opening Endoscopic (ICD-10-PCS; 2021-06-11)
PROC: 0BC78ZZ Extirpation of Matter from Left Main Bronchus, Via Natural or Artificial Opening Endoscopic (ICD-10-PCS; 2021-06-11)
PROC: 0BC38ZZ Extirpation of Matter from Right Main Bronchus, Via Natural or Artificial Opening Endoscopic (ICD-10-PCS; 2021-06-11)
DX: A41.9 Sepsis, unspecified organism (principal); R65.21 Severe sepsis with septic shock; J18.9 Pneumonia, unspecified organism; J69.0 Pneumonitis due to inhalation of food and vomit; J96.01 Acute respiratory failure with hypoxia; I50.33 Acute on chronic diastolic (congestive) heart failure; T17.5 Foreign body in bronchus; N17.9 Acute kidney failure, unspecified; G93.40 Encephalopathy, unspecified; J44.0 Chronic obstructive pulmonary disease with (acute) lower respiratory infection; Z66 Do not resuscitate; Z20.822 Contact with and (suspected) exposure to COVID-19; I11.0 Hypertensive heart disease with heart failure; I49.3 Ventricular premature depolarization; I25.10 Atherosclerotic heart disease of native coronary artery without angina pectoris; E78.00 Pure hypercholesterolemia, unspecified; E78.5 Hyperlipidemia, unspecified; E11.40 Type 2 diabetes mellitus with diabetic neuropathy, unspecified; Z79.4 Long term (current) use of insulin; Z79.84 Long term (current) use of oral hypoglycemic drugs; I08.1 Rheumatic disorders of both mitral and tricuspid valves; G47.30 Sleep apnea, unspecified; D64.9 Anemia, unspecified; M19.91 Primary osteoarthritis, unspecified site; F41.9 Anxiety disorder, unspecified; Z51.5 Encounter for palliative care; E66.9 Obesity, unspecified; Z68.39 Body mass index [BMI] 39.0-39.9, adult; K21.9 Gastro-esophageal reflux disease without esophagitis; I65.23 Occlusion and stenosis of bilateral carotid arteries; I95.9 Hypotension, unspecified; Z95.5 Presence of coronary angioplasty implant and graft; Z79.01 Long term (current) use of anticoagulants; Z79.02 Long term (current) use of antithrombotics/antiplatelets; Z88.6 Allergy status to analgesic agent; Z91.012 Allergy to eggs; Z88.5 Allergy status to narcotic agent; Z91.010 Allergy to peanuts; Z88.0 Allergy status to penicillin; Z88.2 Allergy status to sulfonamides; Z91.018 Allergy to other foods; Z83.3 Family history of diabetes mellitus; Z82.61 Family history of arthritis; Z82.49 Family history of ischemic heart disease and other diseases of the circulatory system
CPT/HCPCS: 31500; 36415; 36600; 51702; 70450; 71045; 71250; 80053; 80061; 80306; 80329; 81000; 82728; 82805; 82947; 83540; 83550; 83605; 83735; 83874; 83880; 84100; 84478; 84484; 85007; 85025; 85027; 85379; 85610; 85730; 86850; 86900; 86901; 86920; 87015; 87040; 87070; 87081; 87088; 87116; 87205; 87206; 87636; 93005; 93041; 94002; 94003; 94640; 94799; 96361; 96365; 96367; 99291